=== PATIENT | male | born 1955 | race Caucasian/White ===

== ENCOUNTER → 2017-12-17 10:20 | Outpatient (CLI) | payer OTHER, SELFPAY ==
[2017-12-17 11:23] LABS: Hematocrit 40.8 % (40-54); Hemoglobin 11.7 g/dl (13.0-16.5); Mean Corp Hgb Conc 28.7 g/gl (32-36); Mean Corpuscular Hgb 19.2 pg (27.0-32.0); Mean Corpuscular Volume 66.9 fL (80-94); Mean Platelet Vol. 10.7 fl (6.2-12.0); Platelet Count 273 K/mm3 (150-450); RBC Distribution Width CV 19.8 % (11.6-14.6); RBC Distribution Width SD 46.2 fl (35.1-43.9); White Blood Count 7.6 K/mm3 (4.4-11.0)
[2017-12-17 11:29] LABS: Scan Indicated on CBC? Y/N YES- FLAGS NOTED
[2017-12-17 11:39] LABS: Ferritin 6 ng/mL (26-388)
== END ==
PROVIDERS: Family Provider Family Medicine; PCP Family Medicine; Visit Provider Internal Medicine Hematology & Oncology
DX: D75.1 Secondary polycythemia (principal); Z12.5 Encounter for screening for malignant neoplasm of prostate
CPT/HCPCS: 36415; 82728; 84153; 85027; G0103

== ENCOUNTER 2018-01-03 08:13 | Inpatient (IN) | payer OTHER, SELFPAY ==
[2018-01-03] VITALS (20 sets, daily range): BP systolic 106–162; BP diastolic 56–98; PULSE 76–133; RESP 15–24; TEMP 36.6–39; O2SAT 91–95; BMI 44.6; BMI 43.2; BMI 43.3
--- NOTE | 2018-01-03 08:32 | EKG12_ITS ---
Test Reason : SOB Blood Pressure : / mmHG Vent. Rate : 119 BPM Atrial Rate : 119 BPM P-R Int : 168 ms QRS Dur : 094 ms QT Int : 324 ms P-R-T Axes : 053 -41 015 degrees QTc Int : 455 ms Sinus tachycardia Left axis deviation Abnormal ECG Confirmed by SIRIA MICHELLE, TERELL ([id number]), index editor RIMMA LAZARO ([id number] on 01/06/2018 8:43:45 AM Referred By: ARIS Confirmed By:TERELL BEVERLY MD
--- NOTE | 2018-01-03 08:34 | ED.VISSUMM ---
- ER Visit Summary Date of Service: 01/03/18 Chief Complaint: Cough, fever, chills, body aches History of Present Illness: The patient is a 62 M with a history of COPD presenting with 2 days of fever, chills, body aches, and myalgias. He has been wheezing and his cough is becoming productive of clear-yellow sputum. Physical Examination: he is in mild distress. He is tachycardic and mucous membranes are dry. he has diffuse wheezing. Normal neuro exam and no meningeal findings. Test Results: Chest x-ray revealed a right lower lobe infiltrate. Flu swab was positive. He has a significant leukocytosis. Lactic acid elevated. Emergency Department Course and Treatment: He appears septic and has a pneumonia with a positive influenza. He was given Tamiflu and IV antibiotics as well as fluid resuscitation. Repeat skin exam is unchanged. Repeat lactate is still pending at time of transfer from emergency department. His blood pressure remained normal and he is requiring 2-3 L of oxygen. He certainly meets criteria for full admission but he does not appear to require ICU admission at this time. He did improve with IV fluids and breathing treatments here. I discussed the case with the hospitalist and he was admitted to PCU. Treatment Plan: IV antibiotics Disposition: Admit Impression: Initial encounter for sepsis secondary to community-acquired pneumonia, initial encounter influenza Care time 40 minutes This note was generated with [employer] dictation software. It may contain incorrect words, spelling, and punctuation that were not noted in review of the chart prior to signing ED Disposition - Plan for ED Patient: Disposition: Acute Care Hospital [facility] Chief Complaint: Shortness of Breath
--- NOTE | 2018-01-03 08:34 | NURSING ---
NO LW OR POA
[2018-01-03] MEDS: Ipratropium/Albuterol Sulfate 3 ML AMPUL.NEB INHALATION ×4 (08:40→23:21)
[2018-01-03] MEDS: Albuterol 2.5 MG/3 ML VIAL.NEB. INHALATION ×3 (08:40→15:05)
[2018-01-03] MEDS: MethylPREDNISolone 125 MG/2 ML Vial IV (08:53)
[2018-01-03] MEDS: Acetaminophen 500 MG Tablet 1000 MG PO (08:53)
[2018-01-03] MEDS: 0.9% Normal Saline 1,000 ML 999 ML IV (08:53)
[2018-01-03 08:54] LABS: Absolute Lymphocyte Count 1.03 X10^3/ul (0.83-4.51); Absolute Neutrophil Count 5.6 X10^3/uL (2.0-7.7); Basophil# 0.11 X10^3/uL; Basophil% 1.4 % (0-1); Differential Indicated SCAN CRITERIA MET; Eosinophil# 0.14 X10^3/uL; Eosinophils% 1.8 % (0-5); Hematocrit 38.9 % (40-54); Hemoglobin 11.1 g/dl (13.0-16.5); Lymphocyte # 1.03 X10^3/ul (4.0); Lymphocyte % 13.2 % (19-41); Mean Corp Hgb Conc 28.5 g/gl (32-36); Mean Corpuscular Hgb 18.8 pg (27.0-32.0); Mean Platelet Vol. 10.1 fl (6.2-12.0); Monocyte# 0.88 X10^3/uL; Monocyte% 11.3 % (0-10); Neutrophil # 5.62 X10^3/uL (2.7-7.7); POSITIVE COUNT NO; POSITIVE DIFFERENTIAL NO; POSITIVE MORPHOLOGY YES; Platelet Count 252 K/mm3 (150-450); RBC Distribution Width CV 20.2 % (11.6-14.6); RBC Distribution Width SD 46.2 fl (35.1-43.9); Red Blood Count 5.89 M/mm3 (4.6-6.2); White Blood Count 7.8 K/mm3 (4.4-11.0)
[2018-01-03 09:08] LABS: Anion Gap 10 (5-15); BUN 20 mg/dL (7-18); BUN/Creat Ratio 13.9 RATIO (10-20); Calcium,Total 8.4 mg/dL (8.5-10.1); Chloride 100 mmol/L (98-107); Creatinine, Serum 1.44 mg/dL (0.70-1.30); EST Glomerular Filtration Rate 52 mL/min (>60); Est Glom Filt Rate - Afr Amer 63 mL/min (>60); Estimated Creatinine Clearance 50.14 ml/min; Glucose 178 mg/dL (74-106); Potassium 4.2 mmol/L (3.5-5.1); Sodium Level 138 mmol/L (136-145)
[2018-01-03 09:11] LABS: Anisocytosis 2+; Polychromasia 1+
--- NOTE | 2018-01-03 09:15 | RAD_ITS ---
STUDY: X-RAY CHEST REASON FOR EXAM: Male, 62 years old. Cough dyspnea COPD stents history of kidney cancer TECHNIQUE: PA and lateral views of the chest. COMPARISON: March 17, 2016 chest x-ray FINDINGS: The lungs are underexpanded similar to the prior study. There is visualized right lower lobe opacity. There is peribronchial thickening and vascular prominence. There is no demonstrated pleural abnormality. There is borderline cardiomegaly. Normal mediastinum and selina. Normal visualized pulmonary arteries. Normal visualized aortic arch and descending thoracic aorta. There are diffuse degenerative changes of the visualized thoracic spine. Normal visualized ribs, clavicles, and shoulders. There is no demonstrated abnormality of the visualized soft tissue structures of the upper abdomen. RAD/Chest PA and Lateral IMPRESSION: Underexpansion of the lungs finding suspicious for central vascular congestion. In addition there is focal opacity suggested in the right lung base on lateral view which may represent a focal infiltrate cannot exclude pneumonia. Electronically Signed: Nhi Resendiz MD at 10:02 EDT Tel , Service support ,
--- NOTE | 2018-01-03 09:49 | NURSING ---
DR GRACE HURST
--- NOTE | 2018-01-03 10:08 | HP.PCM_ITS ---
Problem List (1) PNA (pneumonia) Status: Acute (2) Atherosclerotic heart disease of [place] coronary artery without angina pectoris Status: Chronic Comment: 05/22/11, PTCA/stent X [address] 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 (12) Palpitations Status: Chronic (13) Postsurgical percutaneous transluminal coronary angioplasty (PTCA) status Status: Chronic Comment: 05/22/11, PTCA/stent X 2 to LAD (14) Status post right partial nephrectomy Status: Chronic (15) Type II diabetes mellitus Status: Chronic History of Present Illness Date of Admission: 01/03/18 Chief Complaint: cough, SOB The patient is a 62 year old M [] Past Medical History Past Medical History (Chronic Problems): Chronic Problems (Last Updated 01/01/18 @ 13:42 by Lisa Heck) Atherosclerotic heart disease of [place] coronary artery without angina pectoris (Chronic) 05/22/11, PTCA/stent X [address] 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 (Chronic) History of renal cell cancer (Chronic) Benign prostatic hypertrophy (Chronic) Type II diabetes mellitus (Chronic) Hyperlipidemia (Chronic) Obesity (Chronic) COPD (chronic obstructive pulmonary disease) (Chronic) Obstructive sleep apnea (Chronic) Hypothyroidism (Chronic) Status post right partial nephrectomy (Chronic) Hypertension (Chronic) Allergies theophylline Allergy (Verified 01/03/18 08:14) Unknown Home Medications: Ambulatory Orders Medication Instructions Recorded Aspirin [Aspirin, Baby] 81 mg PO DAILY@0800 03/17/16 Tamsulosin HCl [Flomax] 0.4 mg PO DAILY 03/17/16 Valsartan/Hydrochlorothiazide 1 ea PO DAILY 03/17/16 [Valsartan-Hctz 80-12.5 mg Tab] furosemide 40 mg tablet 40 mg PO QDAY 12/02/17 levothyroxine 200 mcg tablet 225 mcg PO .COMPLEX tab 12/04/17 budesonide-formoterol HFA 160 2 puff INHALATION Q12H 01/01/18 mcg-4.5 mcg/actuation aerosol inhaler testosterone 30 mg/actuation (1.5 1 pump TOPICAL QDAY 01/01/18 mL) transderm solution metered pump Metoprolol Succinate [Toprol Xl] 25 mg PO QDAY 01/03/18 Surgical History: - - Cardiac stents him a right partial nephrectomy. Psychiatric History: No pertinent psych hx Smoking Status: Former smoker - *Family History Maternal History Items: No pertinent history Paternal History Items: No pertinent history Patient Problems: Active and Suspected Problems (Last Updated 01/01/18 @ 13:42 by Lisa Heck) PNA (pneumonia) (Acute) - Physical Exam Vital Signs Temp Pulse Resp BP Pulse Ox 98.5 F 133 H 21 H 152/85 H 92 01/03/18 08:15 01/03/18 08:42 01/03/18 08:42 01/03/18 08:28 01/03/18 08:42 Oxygen Flow Rate (L/min) 3 Oxygen Delivery Method Nasal Cannula Weight: 294 lb Body Mass Index (BMI) 44.6 Laboratory Tests Past 24 Hrs 01/03/18 01/03/18 01/03/18 08:30 08:30 08:55 WBC 7.8 RBC 5.89 Hgb 11.1 L Hct 38.9 L MCV 66.0 L MCH 18.8 L MCHC 28.5 L RDW 20.2 H RDW Differential 46.2 H Plt Count 252 MPV 10.1 Immature Gran % (Auto) 0.300 Neut % (Auto) 72.0 H Lymph % (Auto) 13.2 L [place] % (Auto) 11.3 H Eos % (Auto) 1.8 Baso % (Auto) 1.4 H Absolute Neuts (auto) 5.6 Absolute Lymphs (auto) 1.03 Total Counted Not Reportable Polychromasia 1+ Anisocytosis 2+ Sodium 138 Potassium 4.2 Chloride 100 Carbon Dioxide 28.0 Anion Gap 10 BUN 20 H Creatinine 1.44 H Estim Creat Clear Calc 50.14 Est GFR (MDRD) Af Amer 63 Est GFR (MDRD) Non-Af 52 L BUN/Creatinine Ratio 13.9 Glucose 178 H Lactic Acid 3.0 H Calcium 8.4 L Assessment/Plan Active and Suspected Problems (Last Updated 01/01/18 @ 13:42 by Lisa Heck) PNA (pneumonia) (Acute)
--- NOTE | 2018-01-03 10:08 | NURSING ---
CAP, SOB, BRONCHOSPASM, CAD SEMENTI PCU
[2018-01-03] MEDS: Ceftriaxone 1 GM/50 ML BAG IV (10:30)
[2018-01-03] MEDS: Oseltamivir Phosphate 75 MG Capsule PO (10:38)
[2018-01-03 11:38] LABS: Hemoglobin A1c 8.2 % (4.2-6.3)
[2018-01-03 11:41] LABS: T4 Free Direct 1.02 ng/dL (0.76-1.46); Thyroid Stim Hormone (TSH) 1.08 uIU/mL (0.358-3.74)
[2018-01-03 13:03] LABS: Reflex Lactate? Y
[2018-01-03 13:43] LABS: Lactic Acid 5.6 mmol/L (0.4-2.0)
[2018-01-03] MEDS: 0.9% NaCl Peripheral Flush Adult/Peds IV ×2 (14:06→21:50)
[2018-01-03] MEDS: Acetaminophen 325 MG Tablet 650 MG PO (14:06)
--- NOTE | 2018-01-03 15:32 | PCM.HP.STD ---
Problem List (1) RLL pneumonia Status: Acute (2) Sepsis Status: Acute (3) Influenza A Status: Acute (4) CAD (coronary artery disease) Status: Chronic (5) History of renal cell cancer Status: Chronic (6) Benign prostatic hypertrophy Status: Chronic (7) Type II diabetes mellitus Status: Chronic (8) Hyperlipidemia Status: Chronic (9) Obesity Status: Chronic (10) COPD (chronic obstructive pulmonary disease) Status: Chronic (11) Obstructive sleep apnea Status: Chronic (12) Hypothyroidism Status: Chronic (13) Hypertension Status: Chronic History of Present Illness Date of Admission: 01/03/18 Chief Complaint: SOB The patient is a 62 year old M with a hx of asthma, COPD, RHINA, CAD s/p stents 2010, renal cancer s/p partial nephrectomy 2010, diastolic CHF, who presents to the ED with SOB and cough. 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 He has been feeling progressively worse over the past two days. He is coughing up minimal mucus at this point. He has had fevers, in the ER up to 102.2. At home he has had fevers, chills, myalgias, malaise, and weakness. At home he uses symbicort and CPAP at night. He does not wear O2 normally. These have not provided him reliev. In the ER he tested positive for Flu A. He also appears to have a RLL pna. He follows Dr. Storey for pulmonology. He also has CHF but has minimal edema. He is a former smoker, quit in the 80s, smoked about 15 years. [] Past Medical History Past Medical History (Chronic Problems): Chronic Problems (Last Updated 01/01/18 @ 13:42 by Lisa Heck) CAD (coronary artery disease) (Chronic) Atherosclerotic heart disease of [place] coronary artery without angina pectoris (Chronic) 05/22/11, PTCA/stent X [address] 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) History of renal cell cancer (Chronic) Benign prostatic hypertrophy (Chronic) Type II diabetes mellitus (Chronic) Hyperlipidemia (Chronic) Obesity (Chronic) COPD (chronic obstructive pulmonary disease) (Chronic) Obstructive sleep apnea (Chronic) Hypothyroidism (Chronic) Status post right partial nephrectomy (Chronic) Hypertension (Chronic) Allergies theophylline Allergy (Verified 01/03/18 08:14) Unknown Home Medications: Ambulatory Orders Medication Instructions Recorded Aspirin [Aspirin, Baby] 81 mg PO DAILY@0800 03/17/16 Tamsulosin HCl [Flomax] 0.4 mg PO DAILY 03/17/16 Valsartan/Hydrochlorothiazide 1 ea PO DAILY 03/17/16 [Valsartan-Hctz 80-12.5 mg Tab] furosemide 40 mg tablet 40 mg PO QDAY 12/02/17 levothyroxine 200 mcg tablet 225 mcg PO .COMPLEX tab 12/04/17 budesonide-formoterol HFA 160 2 puff INHALATION Q12H 01/01/18 mcg-4.5 mcg/actuation aerosol inhaler testosterone 30 mg/actuation (1.5 1 pump TOPICAL QDAY 01/01/18 mL) transderm solution metered pump Metformin HCl 1,000 mg PO BREAKFAST 01/03/18 Metformin HCl 1,500 mg PO DINNER 01/03/18 Metoprolol Succinate [Toprol Xl] 25 mg PO QDAY 01/03/18 Surgical History: - - Cardiac stents him a right partial nephrectomy both in 2010 Psychiatric History: No pertinent psych hx Lives: With Family Smoking Status: Former smoker Alcohol: None Drugs: None - *Family History Maternal History Items: No pertinent history Paternal History Items: No pertinent history Review of Systems Constitutional: Reports: Chills, Fever, Malaise, Weakness, Fatigue. Denies: Weight Change HEENT: Denies: Head Aches, Sinus Congestion, Sinus Drainage Cardiovascular: Denies: Chest Pain, Palpitations Respiratory: Reports: Cough, Shortness of Breath, Shortness of breath at rest, Shortness of breath upon exertion. Denies: Hemoptysis, Pleuritic Pain, Sputum production, Wheezing Gastrointestinal: Denies: Abdominal Pain, Nausea, Vomiting Genitourinary: Denies: Dysuria Musculoskeletal: Denies: Joint Pain, Joint Tenderness Skin: Denies: Rash, Wounds Neurological: Denies: Numbness, Tingling, Focal weakness Psychiatric: Denies: Anxiety, Depression, Homicidal Ideations, Suicidal Ideations Hematologic/ Lymphatic: Denies: Easy Bruising, Easy Bleeding VTE Information - Inpt Only VTE Present on Admission: No VTE Mechan Device Prophylaxis: SCD's VTE Pharm Prophylaxis ordered?: Yes Patient Problems: Active and Suspected Problems (Last Updated 01/01/18 @ 13:42 by Lisa eHck) PNA (pneumonia) (Acute) RLL pneumonia (Acute) Sepsis (Acute) Influenza A (Acute) - Physical Exam General: Alert, Oriented x3, Cooperative HEENT: Atraumatic, PERRLA, EOMI, Normocephalic Neck: Supple, No JVD, Negative Carotid Bruits Lungs: Normal air movement, Rales - faint rales RLL Cardiovascular: Regular rate, No murmurs Abdomen: Bowel Sounds Present, Soft, Non Tender, Obese Extremities: No edema, Capillary Refill Less than 3 Seconds Skin: No rashes, No breakdown Musculoskeletal: No Tenderness to Palpation of Joints or Extremities Neurological: Cranial nerves II-XII grossly intact Psych/Mental Status: Normal Affect, Appropriate Vital Signs Temp Pulse Resp BP Pulse Ox 100.8 F H 108 H 20 H 119/62 95 01/03/18 14:00 01/03/18 15:05 01/03/18 15:05 01/03/18 14:00 01/03/18 14:00 Oxygen Flow Rate (L/min) 2 Oxygen Delivery Method Nasal Cannula Weight: 133 kg Body Mass Index (BMI) 43.2 Laboratory Tests Past 24 Hrs 01/03/18 12:43 Lactic Acid 5.6 H* Assessment/Plan Active and Suspected Problems (Last Updated 01/01/18 @ 13:42 by Lisa Heck) PNA (pneumonia) (Acute) RLL pneumonia (Acute) Sepsis (Acute) Influenza A (Acute) 1. Acute sepsis 2/2 acute influenza A bronchitis and RLL CAP - elevated Leukocytosis, fever, lactate, tachypnea, tachycardia. CXR with RLL infiltrate and vascular congestion. Started tamiflu in ER. Continue Rocephin and Azithromycin. Mucinex, aerosols, IS, PEP therapy. Fluids at 100 cc/hour. Check sputum culture, blood culture, urine antigens. 2. 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 Hold lasix. IV fluids. Avoid excessive fluids with hx of CHF. 3. Chronic diastolic CHF - hold lasix/HCTZ. Continue valsartan, toprol. 4. CAD - home meds. EKG with sinus tachy. 5. Hypothyroidism - TSH/Ft4 normal. 6. COPD - Solumedrol. duonebs. Not on home O2. Pt of Dr. Storey. 7. HTN - home meds. Pressure is high. 8.DMt2 - hold metformin. SSI. A1C 8.2. Would benefit from additional oral agent at discharge. DV ppx: heparin This patient was seen by William Laws PA-C under the supervision of Doctor Rodriguez.
[2018-01-03 16:54] LABS: Reflex Lactate? Y
[2018-01-03 16:55] LABS: Color, Urine Straw (Yellow); Glucose, Dipstick 1000 mg/dl (Normal); Ketone-Dipstick 15 mg/dl (Negative); Leukocyte Esterase-Dipstick Negative /ul (Negative); Nitrite-Dipstick Negative (Negative); Occult Blood-Urine Negative /ul (Negative); Protein-Dipstick Negative (Negative); Urine Bilirubin Dipstick Negative (Negative); Urine Clarity Clear (Clear); Urine Urobilinogen Normal (Normal)
[2018-01-03 18:12] LABS: Lactic Acid 5.9 mmol/L (0.4-2.0)
[2018-01-03] MEDS: Tamsulosin HCl 0.4 MG Capsule PO (21:39)
[2018-01-03] MEDS: guaiFENesin 600 MG Tablet 1200 MG PO (21:40)
[2018-01-03] MEDS: Metoprolol(XL)Succ 25 MG Tablet PO (21:43)
[2018-01-03] MEDS: 0.9% Normal Saline 1,000 ML 100 ML IV (21:52)
[2018-01-03] MEDS: Oseltamivir Phosphate 30 MG Capsule PO (21:52)
[2018-01-03 23:05] LABS: Bedside Glucose 302 mg/dL (70-110)
[2018-01-04] VITALS (9 sets, daily range): BP systolic 114–117; BP diastolic 68–70; PULSE 84–105; RESP 16–18; TEMP 36.8–37.1; O2SAT 95–97
[2018-01-04] MEDS: Levothyroxine 175 MCG Tablet PO (06:12)
[2018-01-04] MEDS: Levothyroxine 50 MCG Tablet PO (06:12)
[2018-01-04] MEDS: 0.9% NaCl Peripheral Flush Adult/Peds IV (06:13)
[2018-01-04 06:20] LABS: Absolute Lymphocyte Count 0.54 X10^3/ul (0.83-4.51); Absolute Neutrophil Count 14.8 X10^3/uL (2.0-7.7); Basophil# 0.01 X10^3/uL; Basophil% 0.1 % (0-1); Hematocrit 35.9 % (40-54); Hemoglobin 10.3 g/dl (13.0-16.5); Lymphocyte # 0.54 X10^3/ul (4.0); Lymphocyte % 3.3 % (19-41); Mean Corp Hgb Conc 28.7 g/gl (32-36); Mean Corpuscular Hgb 18.9 pg (27.0-32.0); Mean Platelet Vol. 10.3 fl (6.2-12.0); Monocyte# 0.87 X10^3/uL; Monocyte% 5.4 % (0-10); Neutrophil # 14.79 X10^3/uL (2.7-7.7); Neutrophil % 90.9 % (47-70); Platelet Count 243 K/mm3 (150-450); RBC Distribution Width CV 20.3 % (11.6-14.6); RBC Distribution Width SD 46.7 fl (35.1-43.9); Red Blood Count 5.44 M/mm3 (4.6-6.2); White Blood Count 16.3 K/mm3 (4.4-11.0)
[2018-01-04 06:36] LABS: Anion Gap 10 (5-15); BUN 18 mg/dL (7-18); BUN/Creat Ratio 16.7 RATIO (10-20); Chloride 106 mmol/L (98-107); Creatinine, Serum 1.08 mg/dL (0.70-1.30); Differential Indicated SCAN CRITERIA MET; EST Glomerular Filtration Rate 73 mL/min (>60); Est Glom Filt Rate - Afr Amer 88 mL/min (>60); Glucose 212 mg/dL (74-106); POSITIVE COUNT NO; POSITIVE DIFFERENTIAL YES; POSITIVE MORPHOLOGY YES; Potassium 4.5 mmol/L (3.5-5.1); Sodium Level 139 mmol/L (136-145)
[2018-01-04 07:00] LABS: Bedside Glucose 188 mg/dL (70-110)
[2018-01-04 07:13] LABS: Anisocytosis 1+; Differential Comment SCAN; Hypochromasia 1+; Microcytosis 1+; Polychromasia 1+
[2018-01-04] MEDS: Ipratropium/Albuterol Sulfate 3 ML AMPUL.NEB INHALATION ×2 (07:27→11:21)
[2018-01-04] MEDS: Aspirin 81 MG TAB.CHEW PO (08:02)
[2018-01-04] MEDS: 0.9% Normal Saline 1,000 ML 100 ML IV (08:02)
[2018-01-04] MEDS: guaiFENesin 600 MG Tablet 1200 MG PO (09:48)
[2018-01-04] MEDS: Ceftriaxone 1 GM/50 ML BAG IV (09:48)
[2018-01-04 11:45] LABS: Bedside Glucose 284 mg/dL (70-110)
--- NOTE | 2018-01-04 13:45 | DCINST_ITS ---
- Discharge Diagnoses Current Active Problems: Current Active and Chronic Problems (Last Updated 01/01/18 @ 13:42 by Lisa Heck) PNA (pneumonia) (Acute) RLL pneumonia (Acute) Sepsis (Acute) Influenza A (Acute) CAD (coronary artery disease) (Chronic) You will use the following diet at home:: Calorie/Carbohydrate Controlled ( specify 1200, 1400, etc) - 1800, Cardiac Your food should be the consistency of: Regular Your liquids should be the consistency of: Regular/Thin Discharge Activity: Return to Normal Activity Allergies/Adverse Reactions: Allergies theophylline Allergy (Verified 01/03/18 08:14) Unknown Medications to take at Discharge Aspirin [Aspirin, Baby] 81 mg PO DAILY@0800 03/17/16 Tamsulosin HCl [Flomax] 0.4 mg PO DAILY 03/17/16 furosemide 40 mg tablet 40 mg PO QDAY 12/02/17 levothyroxine 200 mcg tablet 225 mcg PO .COMPLEX tab 12/04/17 budesonide-formoterol HFA 160 mcg-4.5 mcg/actuation aerosol inhaler 2 puff INHALATION Q12H 01/01/18 Metformin HCl 1,000 mg PO BREAKFAST 01/03/18 Metformin HCl 1,500 mg PO DINNER 01/03/18 Metoprolol Succinate [Toprol Xl] 25 mg PO QDAY 01/03/18 Acetaminophen [Tylenol Tablet] 650 mg PO Q6H PRN PRN tablet 01/04/18 Azithromycin [Zithromax] 250 mg PO DAILY #4 tab 01/04/18 Cefdinir [Omnicef [equiv]] 300 mg PO Q12H #8 cap 01/04/18 Prednisone 10 mg PO UD #30 tab 01/04/18 Valsartan [Diovan] 80 mg PO DAILY #30 tab 01/04/18 The following prescriptions were given: Azithromycin [Zithromax] 250 mg PO DAILY #4 tab Cefdinir [Omnicef [equiv]] 300 mg PO Q12H #8 cap Prednisone 10 mg PO UD #30 tab Valsartan [Diovan] 80 mg PO DAILY #30 tab Primary Care Physician: Sebastien Stahl MD [Primary Care Provider] - Please follow up with your Primary Care Physician in: 1-2 weeks Proposed Discharge Date: 01/04/18
--- NOTE | 2018-01-04 13:45 | PCM.DC.SUM ---
Discharge Date and Diagnosis - Problem List Patient Problems: Active and Suspected Problems (Last Updated 01/01/18 @ 13:42 by Lisa Heck) PNA (pneumonia) (Acute) RLL pneumonia (Acute) Sepsis (Acute) Influenza A (Acute) Date of Admission: 01/03/18 Date of Discharge: 01/04/18 - Primary Discharge Diagnosis Active and Suspected Problems (Last Updated 01/01/18 @ 13:42 by Lisa Heck) CAP - RLL PNA (pneumonia) (Acute) - suspect gram positive Sepsis (Acute) Influenza A (Acute) bronchitis Acute COPD exacerbation 2/2 above Chronic diastolic CHF CAD Hypothyroidism HTN DMt2 - Secondary Discharge Diagnosis Chronic Problems (Last Updated 01/01/18 @ 13:42 by Lisa Heck) CAD (coronary artery disease) (Chronic) Atherosclerotic heart disease of [place] coronary artery without angina pectoris (Chronic) 05/22/11, PTCA/stent X [address] 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 In addition there is focal opacity suggested in the right lung base on lateral view which may represent a focal infiltrate cannot exclude pneumonia. Operations: None Procedures: None Summary of Care Provided: Physical exam on day of discharge: General: Resting comfortably NAD Psych: A/Ox3 normal affect HEENT: [place] AT NC Neck: Supple NT CV: RRR no m/t/r/g/h Resp: fine RLL crackles. No wheezing. Good expansion Abd: [id number] Soft NT no guarding or rigidity Ext: DP2+= no edema Skin: W/D normal turgor Lymph/Heme: No active bleeding or adenopathy Neuro: CN2-12 intact Hospital course: The patient is a 62 year old M with a hx of DMt2, COPD, CAD, diastolic CHF, HTN who presented to the ER with a chief complaint of SOB, cough, fever, malaise for about 3 days. He was hypoxic requiring 2 lpm O2 to maintain good sats, had fever, leukocytosis, elevated lactate, tachypnea, tachycardia, and a CXR consistent with RLL pna, and a positive influenza A screen, and elevated creatinine. He was admitted to the hospital with acute severe sepsis 2/2 RLL CAP and Acute influenza A bronchitis. He was placed on rocephin and azithromycin, tamiflu, IV fluids, solumedrol, and duonebs. He responded very well to therapy. By the following morning his vitals and labs were all significantly improved, the patient was off o2, and feeling much better. He desired to be discharged home and with him feeling much better it was determined that we could transition his medications to PO and discharge him home. He did not wish to continue tamiflu. He was placed on 4 more days of cefdinir and azithromycin. He was given a steroid taper. He was taken off of HCTZ for his elevated creatinine and his pressure remained well controlled without it, he will continue with valsartan. He is discharged home in stable condition. Please follow up with your PCP in 1-2 weeks. This patient was seen by William Laws PA-C under the supervision of Doctor Rodriguez. [] Discharge Diet: Low fat/ Low Cholesterol, 1800 Calorie Control Diet, 2000 mg Sodium Diet Discharge Activity: Return to Normal Activity Home Medications: Medications to take at Discharge Aspirin [Aspirin, Baby] 81 mg PO DAILY@0800 03/17/16 Tamsulosin HCl [Flomax] 0.4 mg PO DAILY 03/17/16 furosemide 40 mg tablet 40 mg PO QDAY 12/02/17 levothyroxine 200 mcg tablet 225 mcg PO .COMPLEX tab 12/04/17 budesonide-formoterol HFA 160 mcg-4.5 mcg/actuation aerosol inhaler 2 puff INHALATION Q12H 01/01/18 Metformin HCl 1,000 mg PO BREAKFAST 01/03/18 Metformin HCl 1,500 mg PO DINNER 01/03/18 Metoprolol Succinate [Toprol Xl] 25 mg PO QDAY 01/03/18 Acetaminophen [Tylenol Tablet] 650 mg PO Q6H PRN PRN tablet 01/04/18 Azithromycin [Zithromax] 250 mg PO DAILY #4 tab 01/04/18 Cefdinir [Omnicef [equiv]] 300 mg PO Q12H #8 cap 01/04/18 Prednisone 10 mg PO UD #30 tab 01/04/18 Valsartan [Diovan] 80 mg PO DAILY #30 tab 01/04/18 Following Prescrptions Were Given to Patient: Azithromycin [Zithromax] 250 mg PO DAILY #4 tab Cefdinir [Omnicef [equiv]] 300 mg PO Q12H #8 cap Prednisone 10 mg PO UD #30 tab Valsartan [Diovan] 80 mg PO DAILY #30 tab Primary Care Physician: Sebastien Stahl MD [Primary Care Provider] - Please follow up with your Primary Care Physician in: 1-2 weeks Disposition: Home Minutes spent on discharge:: 35 Patient Condition:: Stable Medical Necessity - Tobacco Use Smoking Status: Former smoker Meaningful Use Info Meaningful Use Diagnoses (Choose all that apply): None applicable
--- NOTE | 2018-01-04 13:52 | DS.PCM_ITS ---
Discharge Date and Diagnosis - Problem List Patient Problems: Active and Suspected Problems (Last Updated 01/01/18 @ 13:42 by Lisa Heck) PNA (pneumonia) (Acute) RLL pneumonia (Acute) Sepsis (Acute) Influenza A (Acute) Date of Admission: 01/03/18 Date of Discharge: 01/04/18 - Primary Discharge Diagnosis Active and Suspected Problems (Last Updated 01/01/18 @ 13:42 by Lisa Heck) CAP - RLL PNA (pneumonia) (Acute) - suspect gram positive Sepsis (Acute) Influenza A (Acute) bronchitis Acute COPD exacerbation 2/2 above Chronic diastolic CHF CAD Hypothyroidism HTN DMt2 - Secondary Discharge Diagnosis Chronic Problems (Last Updated 01/01/18 @ 13:42 by Lisa Heck) CAD (coronary artery disease) (Chronic) Atherosclerotic heart disease of [place] coronary artery without angina pectoris (Chronic) 05/22/11, PTCA/stent X [address] Prabhu Heath @ [facility] Palpitations (Chronic) Postsurgical percutaneous transluminal coronary angioplasty (PTCA) status ( Chronic) 05/22/11, PTCA/stent X 2 to LAD [facility] (current) 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 (Chronic) History of renal cell cancer (Chronic) Benign prostatic hypertrophy (Chronic) Type II diabetes mellitus (Chronic) Hyperlipidemia (Chronic) Obesity (Chronic) COPD (chronic obstructive pulmonary disease) (Chronic) Obstructive sleep apnea (Chronic) Hypothyroidism (Chronic) Status post right partial nephrectomy (Chronic) Hypertension (Chronic) Hospital Course and Treatment Imaging Results: RAD/Chest PA and Lateral IMPRESSION: Underexpansion of the lungs finding suspicious for central vascular congestion. In addition there is focal opacity suggested in the right lung base on lateral view which may represent a focal infiltrate cannot exclude pneumonia. Operations: None Procedures: None Summary of Care Provided: Physical exam on day of discharge: General: Resting comfortably NAD Psych: A/Ox3 normal affect HEENT: [place] AT NC Neck: Supple NT CV: RRR no m/t/r/g/h Resp: fine RLL crackles. No wheezing. Good expansion Abd: [id number] Soft NT no guarding or rigidity Ext: DP2+= no edema Skin: W/D normal turgor Lymph/Heme: No active bleeding or adenopathy Neuro: CN2-12 intact Hospital course: The patient is a 62 year old M with a hx of DMt2, COPD, CAD, diastolic CHF, HTN who presented to the ER with a chief complaint of SOB, cough, fever, malaise for about 3 days. He was hypoxic requiring 2 lpm O2 to maintain good sats, had fever, leukocytosis, elevated lactate, tachypnea, tachycardia, and a CXR consistent with RLL pna, and a positive influenza A screen, and elevated creatinine. He was admitted to the hospital with acute severe sepsis 2/2 RLL CAP and Acute influenza A bronchitis. He was placed on rocephin and azithromycin , tamiflu, IV fluids, solumedrol, and duonebs. He responded very well to therapy. By the following morning his vitals and labs were all significantly improved, the patient was off o2, and feeling much better. He desired to be discharged home and with him feeling much better it was determined that we could transition his medications to PO and discharge him home. He did not wish to continue tamiflu. He was placed on 4 more days of cefdinir and azithromycin. He was given a steroid taper. He was taken off of HCTZ for his elevated creatinine and his pressure remained well controlled without it, he will continue with valsartan. He is discharged home in stable condition. Please follow up with your PCP in 1-2 weeks. This patient was seen by William Laws PA-C under the supervision of Doctor Rodriguez. [] Discharge Diet: Low fat/ Low Cholesterol, 1800 Calorie Control Diet, 2000 mg Sodium Diet Discharge Activity: Return to Normal Activity Home Medications: Medications to take at Discharge Aspirin [Aspirin, Baby] 81 mg PO DAILY@0800 03/17/16 Tamsulosin HCl [Flomax] 0.4 mg PO DAILY 03/17/16 furosemide 40 mg tablet 40 mg PO QDAY 12/02/17 levothyroxine 200 mcg tablet 225 mcg PO .COMPLEX tab 12/04/17 budesonide-formoterol HFA 160 mcg-4.5 mcg/actuation aerosol inhaler 2 puff INHALATION Q12H 01/01/18 Metformin HCl 1,000 mg PO BREAKFAST 01/03/18 Metformin HCl 1,500 mg PO DINNER 01/03/18 Metoprolol Succinate [Toprol Xl] 25 mg PO QDAY 01/03/18 Acetaminophen [Tylenol Tablet] 650 mg PO Q6H PRN PRN tablet 01/04/18 Azithromycin [Zithromax] 250 mg PO DAILY #4 tab 01/04/18 Cefdinir [Omnicef [equiv]] 300 mg PO Q12H #8 cap 01/04/18 Prednisone 10 mg PO UD #30 tab 01/04/18 Valsartan [Diovan] 80 mg PO DAILY #30 tab 01/04/18 Following Prescrptions Were Given to Patient: Azithromycin [Zithromax] 250 mg PO DAILY #4 tab Cefdinir [Omnicef [equiv]] 300 mg PO Q12H #8 cap Prednisone 10 mg PO UD #30 tab Valsartan [Diovan] 80 mg PO DAILY #30 tab Primary Care Physician: Sebastien Stahl MD [Primary Care Provider] - Please follow up with your Primary Care Physician in: 1-2 weeks Disposition: Home Minutes spent on discharge:: 35 Patient Condition:: Stable Medical Necessity - Tobacco Use Smoking Status: Former smoker Meaningful Use Info Meaningful Use Diagnoses (Choose all that apply): None applicable
[2018-01-06 09:25] LABS: Bedside Glucose 315 mg/dL (70-110)
[2018-01-06 09:25] LABS: Bedside Glucose 328 mg/dL (70-110)
--- NOTE | 2018-01-06 13:19 | CASEMGMT ---
MANI VELÁSQUEZ Discharge Follow-Up Phone Call. RIAZ: 9 Strata: 3 Call Date: 01/06/18 Discharge Date: 01/02/18 Time: 1318 Duration: 2 minutes Adm Dx: Pneumonia RN DIDIER spoke with Mr. Sarabia re: how he is feeling since she left the hospital. Mr. Sarabia reports he has been feeling better, but did reports he has been having some shortness of breath. He reports he expects this, and is not concerned. Mr. Sarabia reports he knows to contact his physician office or come to the ED should his breathing worsen. He reports he is was able to obtain both antibiotics and prednisone which was prescribed at discharge, and is taking as ordered. Mr. 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 Mr. Sarabia states he does have follow-up appnts, and denies needs at this time. ANTHONY WileyN, RN-BC, CCM
== END 2018-01-04 15:38 | disposition home or self-care (01) | DRG 871 ==
LOC: ED 08:53 → PCU 10:14
PROVIDERS: Physician Assistant; Admitting Provider Internal Medicine; Emergency Provider Emergency Medicine; Family Provider Family Medicine; PCP Family Medicine; Visit Provider Internal Medicine
DX: A41.9 Sepsis, unspecified organism (principal); J10.00 Influenza due to other identified influenza virus with unspecified type of pneumonia; R65.21 Severe sepsis with septic shock; J44.1 Chronic obstructive pulmonary disease with (acute) exacerbation; J44.0 Chronic obstructive pulmonary disease with (acute) lower respiratory infection; Z68.41 Body mass index [BMI] 40.0-44.9, adult; I50.32 Chronic diastolic (congestive) heart failure; J20.9 Acute bronchitis, unspecified; D75.1 Secondary polycythemia; E86.0 Dehydration; I25.10 Atherosclerotic heart disease of native coronary artery without angina pectoris; Z85.53 Personal history of malignant neoplasm of renal pelvis; N40.0 Benign prostatic hyperplasia without lower urinary tract symptoms; E11.9 Type 2 diabetes mellitus without complications; E78.5 Hyperlipidemia, unspecified; E66.9 Obesity, unspecified; G47.33 Obstructive sleep apnea (adult) (pediatric); E03.9 Hypothyroidism, unspecified; Z95.5 Presence of coronary angioplasty implant and graft; Z90.5 Acquired absence of kidney; I11.0 Hypertensive heart disease with heart failure; Z87.891 Personal history of nicotine dependence; Z79.82 Long term (current) use of aspirin; Z79.84 Long term (current) use of oral hypoglycemic drugs; Z79.899 Other long term (current) 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; D72.829 Elevated white blood cell count, unspecified; R94.4 Abnormal results of kidney function studies
CPT/HCPCS: 36415; 71046; 80048; 81002; 82962; 83036; 83605; 84439; 84443; 85025; 87040; 87070; 87205; 87449; 87633; 87804; 93005; 94640; 99285; J7030; A4216

== ENCOUNTER → 2018-01-14 10:08 | Outpatient (CLI) | payer OTHER, SELFPAY ==
[2018-01-14 10:52] LABS: Hematocrit 42.3 % (40-54); Mean Corp Hgb Conc 28.4 g/gl (32-36); Mean Corpuscular Hgb 18.7 pg (27.0-32.0); Mean Platelet Vol. 9.9 fl (6.2-12.0); Platelet Count 273 K/mm3 (150-450); RBC Distribution Width CV 21.2 % (11.6-14.6); RBC Distribution Width SD 48.3 fl (35.1-43.9); Red Blood Count 6.41 M/mm3 (4.6-6.2); White Blood Count 9.7 K/mm3 (4.4-11.0)
[2018-01-14 10:56] LABS: Scan Indicated on CBC? Y/N YES- FLAGS NOTED
[2018-01-14 11:19] LABS: Ferritin 10 ng/mL (26-388)
== END ==
PROVIDERS: Family Provider Family Medicine; PCP Family Medicine; Visit Provider Internal Medicine Hematology & Oncology
DX: D75.1 Secondary polycythemia (principal)
CPT/HCPCS: 36415; 82728; 85027

== ENCOUNTER 2018-02-19 09:52 | Emergency (ER) | payer OTHER, SELFPAY ==
[2018-02-19 09:53] VITALS: BP 125/66; PULSE 70; RESP 18; TEMP 36.6; O2SAT 96; BMI 44.1
--- NOTE | 2018-02-19 10:02 | EKG12_ITS ---
Test Reason : SYNCOPE Blood Pressure : / mmHG Vent. Rate : 067 BPM Atrial Rate : 067 BPM P-R Int : 176 ms QRS Dur : 098 ms QT Int : 404 ms P-R-T Axes : 055 -26 005 degrees QTc Int : 426 ms Normal sinus rhythm Leftward axis Poor R wave progression Confirmed by EMANI MICHELLE, CHRISTOPHER ([id number]), writer editor RIMMA LAZARO ([id number]) on 02/25/2018 1:37:02 PM Referred By: PALMER Confirmed By:CHRISTOPHER JOAQUIN MD
[2018-02-19 11:30] LABS: Absolute Lymphocyte Count 1.05 X10^3/ul (0.83-4.51); Absolute Neutrophil Count 4.8 X10^3/uL (2.0-7.7); Basophil# 0.11 X10^3/uL; Basophil% 1.6 % (0-1); Eosinophil# 0.34 X10^3/uL; Hematocrit 40.8 % (40-54); Hemoglobin 11.3 g/dl (13.0-16.5); Lymphocyte # 1.05 X10^3/ul (4.0); Lymphocyte % 15.5 % (19-41); Mean Corp Hgb Conc 27.7 g/gl (32-36); Mean Corpuscular Hgb 18.7 pg (27.0-32.0); Mean Corpuscular Volume 67.7 fL (80-94); Monocyte# 0.49 X10^3/uL; Monocyte% 7.2 % (0-10); Neutrophil # 4.79 X10^3/uL (2.7-7.7); Neutrophil % 70.6 % (47-70); Platelet Count 203 K/mm3 (150-450); RBC Distribution Width CV 19.7 % (11.6-14.6); Red Blood Count 6.03 M/mm3 (4.6-6.2); White Blood Count 6.8 K/mm3 (4.4-11.0)
[2018-02-19 11:31] LABS: Differential Indicated SCAN CRITERIA MET; POSITIVE COUNT NO; POSITIVE DIFFERENTIAL NO; POSITIVE MORPHOLOGY YES
[2018-02-19] MEDS: 0.9% Normal Saline 1,000 ML 150 ML IV (11:38)
[2018-02-19] MEDS: fentaNYL 100 MCG/2 ML Ampul 50 MCG IV (11:38)
[2018-02-19] MEDS: Ondansetron 4 MG/2 ML Vial IV (11:38)
[2018-02-19 11:39] LABS: Anion Gap 5 (5-15); BUN 16 mg/dL (7-18); BUN/Creat Ratio 13.6 RATIO (10-20); Calcium,Total 8.9 mg/dL (8.5-10.1); Chloride 105 mmol/L (98-107); Creatinine, Serum 1.18 mg/dL (0.70-1.30); EST Glomerular Filtration Rate 66 mL/min (>60); Est Glom Filt Rate - Afr Amer 80 mL/min (>60); Estimated Creatinine Clearance 60.38 ml/min; Glucose 186 mg/dL (74-106); Potassium 4.3 mmol/L (3.5-5.1); Sodium Level 137 mmol/L (136-145)
[2018-02-19 11:48] LABS: Anisocytosis 2+; Hypochromasia 1+; Microcytosis 1+; Platelet Estimate ADEQUATE (ADEQ); Polychromasia 1+
--- NOTE | 2018-02-19 12:00 | RAD_ITS ---
STUDY: X-RAY CHEST REASON FOR EXAM: Male, 63 years old. Chest pain. TECHNIQUE: PA and lateral views of the chest. COMPARISON: Comparison is made with prior study dated January 03, 2018. FINDINGS: EKG electrodes are seen. Mild elevation of the right hemidiaphragm. The lungs are clear. There is no demonstrated pleural abnormality. There is borderline cardiomegaly. Normal mediastinum and selina. Normal visualized pulmonary arteries. Normal visualized aortic arch and descending thoracic aorta. Normal visualized thoracic spine. Normal visualized ribs, clavicles, and shoulders. There is no demonstrated abnormality of the visualized soft tissue structures of the upper abdomen. RAD/Chest PA and Lateral IMPRESSION: Mild elevation of the right hemidiaphragm. The lungs are clear. Electronically Signed: Anshul Arboleda MD at 12:36 EDT Tel [phone], Service support ,
[2018-02-19 12:11] VITALS: BP 119/64; PULSE 79; RESP 18; O2SAT 96
--- NOTE | 2018-02-19 13:04 | ED.VISSUMM ---
- ER Visit Summary Date of Service: 02/19/18 Chief Complaint: [] Near-syncope History of Present Illness: The patient is a 63 M [] complaining of near syncope after just completing a procedure at the [employer] relations [employer] office. He reports procedure was done on his right eye. He reports after the procedure was over he had a sharp pain in his right eye and had a near syncopal episode. He reports continued pain in his right eye. 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 Patient denies chest pain or shortness of breath. Reports nausea, denies vomiting. Denies abdominal pain. No other complaints at this time. Physical Examination: [] Afebrile, vital signs stable. 63-year-old morbidly obese male in no acute distress. Cardiovascular exam is regular rate and rhythm. Lungs are clear to auscultation. Abdomen is soft and nontender. Remainder of exam is unremarkable. Test Results: [] Chest x-ray 2 views negative EKG: Normal sinus rhythm, rate 67 without ectopy or ischemic changes. This is unchanged from previous EKG. CBC, BMP, troponin all within normal limits. Emergency Department Course and Treatment: [] Patient was given intravenous fluids and fentanyl for the discomfort. On serial exam he had improvement of symptoms. He had a negative workup I did not feel any further evaluation is warranted. Patient looks well is able to ambulate and is having a conversation with family members in his room. Patient was encouraged to follow-up with his primary care physician. Treatment Plan: [] Follow-up with PCP. Disposition: [] Discharge, stable. Impression: [] Near-syncope This note was generated with [employer] dictation software. It may contain incorrect words, spelling, and punctuation that were not noted in review of the chart prior to signing ED Disposition - Plan for ED Patient: Chief Complaint: Syncope Referrals: Sebastien Stahl MD [Primary Care Provider] -
--- NOTE | 2018-02-19 13:06 | ED.DEP ---
ED Disposition - Plan for ED Patient: Disposition: Home or Assisted Living Chief Complaint: Syncope Instructions: ED Near Syncope Vasovagal Referrals: Sebastien Stahl MD [Primary Care Provider] -
[2018-02-19 13:15] VITALS: BP 115/70; PULSE 75; RESP 14; O2SAT 99
[2018-02-19 14:05] LABS: BNP,B-Type NATRIURETIC PEPTIDE 2.7 pg/mL (0-100)
== END 2018-02-19 13:22 | disposition home or self-care (01) ==
PROVIDERS: Emergency Provider Emergency Medicine; Family Provider Family Medicine; PCP Family Medicine
DX: R55 Syncope and collapse (principal); E66.01 Morbid (severe) obesity due to excess calories; C64.1 Malignant neoplasm of right kidney, except renal pelvis
CPT/HCPCS: 71046; 80048; 83880; 84484; 85025; 93005; 96361; 96374; 96375; 99285; J7030; A4216; J2405

== ENCOUNTER 2018-03-27 16:20 | Observation (INO) | payer OTHER, SELFPAY ==
[2018-03-27 16:21] VITALS: BP 127/69; PULSE 82; RESP 16; TEMP 36.7; O2SAT 95; BMI 43.6
--- NOTE | 2018-03-27 16:26 | EKG12_ITS ---
Test Reason : Blood Pressure : / mmHG Vent. Rate : 078 BPM Atrial Rate : 078 BPM P-R Int : 172 ms QRS Dur : 098 ms QT Int : 384 ms P-R-T Axes : 050 -33 018 degrees QTc Int : 437 ms Normal sinus rhythm Left axis deviation Abnormal ECG Confirmed by TERELL BEVERLY MD ([id number]), film editor supervisor RIMMA LAZARO ([id number]) on 04/02/2018 3:32:45 PM Referred By: LENIN Confirmed By:TERELL BEVERLY MD
--- NOTE | 2018-03-27 16:26 | RAD_ITS ---
STUDY: X-RAY CHEST REASON FOR EXAM: Male, 63 years old. Cough TECHNIQUE: Single frontal view of the chest. COMPARISON: February 19, 2018 FINDINGS: The lungs are clear and expanded. There is no demonstrated pleural abnormality. Normal size heart. Normal mediastinum and selina. Normal visualized pulmonary arteries. Normal visualized aortic arch and descending thoracic aorta. Normal visualized thoracic spine. Normal visualized ribs, clavicles, and shoulders. There is no demonstrated abnormality of the visualized soft tissue structures of the upper abdomen. RAD/Chest 1 View (Portable) IMPRESSION: Normal x-ray examination of the chest. Electronically Signed: Red Arizmendi MD at 16:47 EDT , Service support ,
--- NOTE | 2018-03-27 16:27 | ED.VISSUMM ---
- ER Visit Summary Date of Service: 03/27/18 Chief Complaint: Nausea, dizziness History of Present Illness: The patient is a 63 M who has a history of coronary vascular disease status post stenting, diabetes, hypertension presents with sudden onset dizziness. 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 He states that he ate about 230. He was going about his normal day. He states he got very lightheaded and felt his physical pass out. He states that he had a sensation of motion. He states he got very diaphoretic and nauseated. He denies any chest pain. He states this did happen to about 15 years ago. He states up until today, he has been in his normal state of health. He states he has had some mild shortness of breath, but that is chronic for him. He denies any recent change of medications. He denies any abdominal pain or chest pain. Physical Examination: Vital signs reviewed General: Well-nourished, well-developed, diaphoretic Head: Normocephalic, atraumatic Eyes: Pupils equal and reactive, extraocular muscles intact Neck, supple, no lymphadenopathy Heart: Regular rate and rhythm Respiratory: No distress, clear bilaterally Abdomen: Soft, nontender, nondistended, no peritoneal signs Back: Nontender Extremities: Nontender, no edema, no cords Skin: Normal color no rash Neuro: Alert and oriented, no focal or lateralizing deficits Test Results: [] Emergency Department Course and Treatment: The patient presents with sudden onset nausea and dizziness. He does describe the sensation of motion and he was near syncopal. His EKG was unremarkable. Patient was given Zofran with little change of his symptoms. He was then given Phenergan and was resting more comfortably. He has no changes in speech. Given the severity of his symptoms, I was unable to check his gait. The patient does have persistent vertiginous symptoms. He has been having intermittent neck pain. I did obtain a CTA of his head and neck which shows no dissection or other acute blockage. I do have some suspicion this may be a posterior circulation stroke given the persistent symptoms that are not really made worse with motion. The patient symptoms were mildly improved, but given his risk factors I do feel would benefit from observation. Patient was discussed with the hospitalist. Treatment Plan: [] Disposition: Admission Impression: 1. Acute vertigo This note was generated with [employer] software. It may contain incorrect words, spelling, and punctuation that were not noted in review of the chart prior to signing ED Disposition - Plan for ED Patient: Chief Complaint: Dizziness
--- NOTE | 2018-03-27 16:31 | CT_ITS ---
STUDY: CTA NECK WITH CONTRAST REASON FOR EXAM: Male, 63 years old. Dizziness RADIATION DOSAGE (If Supplied By Facility): CTDIvol = ( 44.57 ) mGy, DLP = ( 1925.14 ) mGycm TECHNIQUE: CT angiography with multi-detector data acquisition was performed from the aortic arch to the skull base following intravenous administration of 100 ml of Isovue 370 contrast. MIP images were reconstructed from the axial data set. Post-processing of the angiographic images was performed, with multiplanar reformation and 3D reconstruction. Individualized dose optimization techniques were used for this CT. COMPARISON: None. FINDINGS: AORTIC ARCH: Normal visualized aortic arch. Normal origins of the brachiocephalic, left common carotid, and left subclavian arteries. RIGHT CAROTID ARTERIES: Normal right common carotid artery (CCA). There is mild atherosclerotic plaque formation with minimal narrowing of the right carotid bulb. Normal origin of the right internal carotid (ICA) artery without a hemodynamically significant stenosis. Normal visualized cervical portion of the right internal carotid artery. Normal origin of the right external carotid artery (ECA). LEFT CAROTID ARTERIES: Normal left common carotid artery (CCA). There is mild atherosclerotic plaque formation with minimal narrowing of the left carotid bulb. Normal origin of the left internal carotid (ICA) artery without a hemodynamically significant stenosis. Normal visualized cervical portion of the left internal carotid artery. Normal origin of the left external carotid artery (ECA). VERTEBRAL ARTERIES: Left vertebral artery is dominant cyst appears normal. The right vertebral artery is hypoplastic may terminate as the posterior inferior cerebellar artery. IMPRESSION: Hypoplastic right vertebral artery otherwise unremarkable CTA neck Electronically Signed: Red Arizmendi MD at 17:43 EDT , Service support , STUDY: CTA OF THE BRAIN REASON FOR EXAM: Male, 63 years old. Dizziness RADIATION DOSAGE (If Supplied By Facility): CTDIvol = ( 44.57 ) mGy, DLP = ( 1925.14 ) mGycm TECHNIQUE: CT angiography was performed with a multi-detector CT scanner. Data acquisition was obtained from the skull base through the vertex following intravenous administration of 100 ml of Isovue-370. MIP images were reconstructed from the axial data set. Post-processing of the angiographic images was performed, with multiplanar reformation and 3D reconstruction. Individualized dose optimization techniques were used for this CT. COMPARISON: None. FINDINGS: Normal bilateral petrous carotid arteries. Normal right cavernous carotid artery with a normal supraclinoid bifurcation. Normal left cavernous carotid artery with a normal supraclinoid bifurcation. Normal right A1 segments of the anterior cerebral artery. Normal left A1 segments of the anterior cerebral artery. Normal intact anterior communicating artery (ACOM). Normal bilateral A2 segments of the anterior cerebral arteries. Normal right M1 and M2 segments of the middle cerebral arteries, with a normal M1 bifurcation. Normal left M1 and M2 segments of the middle cerebral arteries, with a normal M1 bifurcation. There is a persistent origin of the right posterior cerebral artery with absence of the posterior communicating artery (PCOM). There is non-visualization of the left posterior communicating artery (PCOM). Right vertebral artery is not well-visualized and may terminate as the posterior inferior cerebellar artery. Normal basilar artery with a normal basilar bifurcation. The visualized bilateral superior cerebellar (SCA) arteries are normal. Normal bilateral P1, P2 and visualized P3 segments of the posterior cerebral arteries. There is no demonstrated aneurysm of the [place]. There is no demonstrated abnormality of the visualized brain. CT/CTA Head W/WO Contrast IMPRESSION: Hypoplastic right vertebral artery otherwise unremarkable exam. Electronically Signed: Red Arizmendi MD at 17:47 EDT , Service support ,
--- NOTE | 2018-03-27 16:31 | CT_ITS ---
STUDY: CTA NECK WITH CONTRAST REASON FOR EXAM: Male, 63 years old. Dizziness RADIATION DOSAGE (If Supplied By Facility): CTDIvol = ( 44.57 ) mGy, DLP = ( 1925.14 ) mGycm TECHNIQUE: CT angiography with multi-detector data acquisition was performed from the aortic arch to the skull base following intravenous administration of 100 ml of Isovue 370 contrast. MIP images were reconstructed from the axial data set. Post-processing of the angiographic images was performed, with multiplanar reformation and 3D reconstruction. Individualized dose optimization techniques were used for this CT. COMPARISON: None. FINDINGS: AORTIC ARCH: Normal visualized aortic arch. Normal origins of the brachiocephalic, left common carotid, and left subclavian arteries. RIGHT CAROTID ARTERIES: Normal right common carotid artery (CCA). There is mild atherosclerotic plaque formation with minimal narrowing of the right carotid bulb. Normal origin of the right internal carotid (ICA) artery without a hemodynamically significant stenosis. Normal visualized cervical portion of the right internal carotid artery. Normal origin of the right external carotid artery (ECA). LEFT CAROTID ARTERIES: Normal left common carotid artery (CCA). There is mild atherosclerotic plaque formation with minimal narrowing of the left carotid bulb. Normal origin of the left internal carotid (ICA) artery without a hemodynamically significant stenosis. Normal visualized cervical portion of the left internal carotid artery. Normal origin of the left external carotid artery (ECA). VERTEBRAL ARTERIES: Left vertebral artery is dominant cyst appears normal. The right vertebral artery is hypoplastic may terminate as the posterior inferior cerebellar artery. IMPRESSION: Hypoplastic right vertebral artery otherwise unremarkable CTA neck Electronically Signed: Red Arizmendi MD at 17:43 EDT , Service support , STUDY: CTA OF THE BRAIN REASON FOR EXAM: Male, 63 years old. Dizziness RADIATION DOSAGE (If Supplied By Facility): CTDIvol = ( 44.57 ) mGy, DLP = ( 1925.14 ) mGycm TECHNIQUE: CT angiography was performed with a multi-detector CT scanner. Data acquisition was obtained from the skull base through the vertex following intravenous administration of 100 ml of Isovue-370. MIP images were reconstructed from the axial data set. Post-processing of the angiographic images was performed, with multiplanar reformation and 3D reconstruction. Individualized dose optimization techniques were used for this CT. COMPARISON: None. FINDINGS: Normal bilateral petrous carotid arteries. Normal right cavernous carotid artery with a normal supraclinoid bifurcation. Normal left cavernous carotid artery with a normal supraclinoid bifurcation. Normal right A1 segments of the anterior cerebral artery. Normal left A1 segments of the anterior cerebral artery. Normal intact anterior communicating artery (ACOM). Normal bilateral A2 segments of the anterior cerebral arteries. Normal right M1 and M2 segments of the middle cerebral arteries, with a normal M1 bifurcation. Normal left M1 and M2 segments of the middle cerebral arteries, with a normal M1 bifurcation. There is a persistent origin of the right posterior cerebral artery with absence of the posterior communicating artery (PCOM). There is non-visualization of the left posterior communicating artery (PCOM). Right vertebral artery is not well-visualized and may terminate as the posterior inferior cerebellar artery. Normal basilar artery with a normal basilar bifurcation. The visualized bilateral superior cerebellar (SCA) arteries are normal. Normal bilateral P1, P2 and visualized P3 segments of the posterior cerebral arteries. There is no demonstrated aneurysm of the [place]. There is no demonstrated abnormality of the visualized brain. CT/CTA Neck W/WO Contrast IMPRESSION: Hypoplastic right vertebral artery otherwise unremarkable exam. Electronically Signed: Red Arizmendi MD at 17:47 EDT , Service support ,
[2018-03-27] MEDS: Ondansetron 4 MG/2 ML Vial IV (16:35)
[2018-03-27] MEDS: 0.9% Normal Saline 1,000 ML 1000 ML IV (16:36)
[2018-03-27] MEDS: proMETHazine 25 MG/ML Syringe 6.25 MG IV (16:52)
[2018-03-27 16:53] LABS: Absolute Lymphocyte Count 2.94 X10^3/ul (0.83-4.51); Absolute Neutrophil Count 5.6 X10^3/uL (2.0-7.7); Basophil# 0.14 X10^3/uL; Basophil% 1.4 % (0-1); Eosinophil# 0.64 X10^3/uL; Eosinophils% 6.3 % (0-5); Hematocrit 42.7 % (40-54); Hemoglobin 11.9 g/dl (13.0-16.5); Lymphocyte # 2.94 X10^3/ul (4.0); Lymphocyte % 29.1 % (19-41); Mean Corp Hgb Conc 27.9 g/gl (32-36); Mean Corpuscular Hgb 18.4 pg (27.0-32.0); Mean Corpuscular Volume 66.2 fL (80-94); Monocyte# 0.73 X10^3/uL; Monocyte% 7.2 % (0-10); Neutrophil # 5.64 X10^3/uL (2.7-7.7); Neutrophil % 55.9 % (47-70); Platelet Count 225 K/mm3 (150-450); RBC Distribution Width SD 44.6 fl (35.1-43.9); Red Blood Count 6.45 M/mm3 (4.6-6.2); White Blood Count 10.1 K/mm3 (4.4-11.0)
[2018-03-27 16:54] LABS: Differential Indicated SCAN CRITERIA MET; POSITIVE COUNT NO; POSITIVE DIFFERENTIAL NO; POSITIVE MORPHOLOGY YES
[2018-03-27 16:59] LABS: ALB/GLOB Ratio 1.1 RATIO (0.9-2.4); AST(SGOT) 19 U/L (15-37); Alanine Aminotransfer ALT/SGPT 35 U/L (16-61); Albumin, Serum 3.9 g/dL (3.2-5.0); Alkaline Phosphatase 68 U/L (45-117); Anion Gap 11 (5-15); BUN 15 mg/dL (7-18); BUN/Creat Ratio 10.4 RATIO (10-20); Calcium,Total 8.9 mg/dL (8.5-10.1); Chloride 101 mmol/L (98-107); Creatinine, Serum 1.44 mg/dL (0.70-1.30); EST Glomerular Filtration Rate 52 mL/min (>60); Est Glom Filt Rate - Afr Amer 63 mL/min (>60); Estimated Creatinine Clearance 51.14 ml/min; Globulin 3.5 g/dL (2.2-4.2); Glucose 177 mg/dL (74-106); Potassium 3.5 mmol/L (3.5-5.1); Protein, Total 7.4 g/dL (6.4-8.2); Sodium Level 139 mmol/L (136-145)
[2018-03-27 17:26] LABS: Anisocytosis 1+; Hypochromasia RARE; Platelet Estimate ADEQUATE (ADEQ)
[2018-03-27 17:27] LABS: Microcytosis 2+
--- NOTE | 2018-03-27 18:15 | PCM.HP.STD ---
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 Around 230 this afternoon he developed severe dizziness and felt as if he was going to pass out , he became diaphoretic and nauseous. Rapid response was activated and he was transported to the emergency room for evaluation. CT scan of his brain and CT angiogram of the brain and neck were all unremarkable. Patient denies any chest pain, shortness of breath palpitations or rapid heartbeat. Past Medical History Past Medical History (Chronic Problems): Chronic Problems (Last Reviewed 01/06/18 @ 10:31 by BRYAN Brown) CAD (coronary artery disease) (Chronic) CLARK (dyspnea on exertion) (Chronic) Atherosclerotic heart disease of [place] coronary artery without angina pectoris (Chronic) 05/22/11, PTCA/stent X [address] 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 (Chronic) History of renal cell cancer (Chronic) Benign prostatic hypertrophy (Chronic) Type II diabetes mellitus (Chronic) Hyperlipidemia (Chronic) Obesity (Chronic) COPD (chronic obstructive pulmonary disease) (Chronic) Obstructive sleep apnea (Chronic) CPAP 13 cm of water Hypothyroidism (Chronic) Status post right partial nephrectomy (Chronic) Hypertension (Chronic) Medical History: Medical History (Last Reviewed 01/06/18 @ 10:31 by BRYAN Brown) Atherosclerotic heart disease of [place] coronary artery without angina pectoris (Chronic) I25.10 05/22/11, PTCA/stent X [address] 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 Meniscus degeneration M23.309 Nephrolithiasis N20.0 Precordial chest pain R07.2 Right elbow pain M25.521 Right knee pain M25.561 Rupture of right biceps tendon S46.211A Secondary polycythemia D75.1 Shortness of breath R06.02 Trochanteric bursitis, left hip M70.62 Asthma J45.909 Coronary artery disease I25.10 Depression F32.9 Osteoarthritis, knee M17.10 Sciatica M54.30 Allergies theophylline Allergy (Verified 01/06/18 10:14) Unknown Home Medications: Ambulatory Orders Medication Instructions Recorded Aspirin [Aspirin, Baby] 81 mg PO DAILY@0800 03/17/16 Tamsulosin HCl [Flomax] 0.4 mg PO DAILY 03/17/16 budesonide-formoterol HFA 160 2 puff INHALATION Q12H 01/01/18 mcg-4.5 mcg/actuation aerosol inhaler Metformin HCl 1,000 mg PO BREAKFAST 01/03/18 Metformin HCl 1,500 mg PO DINNER 01/03/18 Metoprolol Succinate [Toprol Xl] 25 mg PO DAILY 01/03/18 valsartan 80 1 tab PO DAILY 01/06/18 mg-hydrochlorothiazide 12.5 mg tablet Furosemide 40 mg PO DAILY 03/27/18 Testosterone [Androgel] 2 pump TD BID 03/27/18 Surgical History: Surgical History (Last Reviewed 01/06/18 @ 10:31 by Toma Morley, DRAFTER APPRENTICE-C) Postsurgical percutaneous transluminal coronary angioplasty (PTCA) status (Chronic) Z98.61 05/22/11, PTCA/stent X 2 to LAD Status post right partial nephrectomy (Chronic) H/O lithotripsy Z98.890 right 2011 History of tonsillectomy Z90.89 L eye surgery partial nephrectomy for renal cell cancer 07/2011 Surgical History: - - Cardiac stents him a right partial nephrectomy both in 2010 Psychiatric History: No pertinent psych hx Smoking Status: Former smoker - *Family History Maternal Family History: Family History (Last Reviewed 01/06/18 @ 10:31 by BRYAN Brown) Mother CAD (coronary artery disease) History Items: No pertinent history Paternal Family History: Family History (Last Reviewed 01/06/18 @ 10:31 by BRYAN Brown) Mother CAD (coronary artery disease) History Items: No pertinent history Review of Systems Constitutional: Reports: Anorexia, Chills Cardiovascular: Reports: Chest Pain Respiratory: Reports: Cough Comment: All Systems were reviewed with pertinent positives mentioned in the HPI above. VTE Information - Inpt Only VTE Present on Admission: No VTE Mechan Device Prophylaxis: SCD's VTE Pharm Prophylaxis ordered?: Yes - Physical Exam General: Alert, Oriented x3 HEENT: Atraumatic Oral: Moist Mucosa Neck: Supple Lungs: Clear to auscultation Cardiovascular: Regular rate, Normal S1, Normal S2, No Ectopic Activity Abdomen: Bowel Sounds Present, Non Tender Extremities: No clubbing Musculoskeletal: No Tenderness to Palpation of Joints or Extremities Lymphatic: No Cervical, Supraclavicular, or Inguinal Adenopathy Neurological: Cranial nerves II-XII grossly intact Vital Signs Temp Pulse Resp BP Pulse Ox 98.0 F 82 16 127/69 H 95 03/27/18 16:21 03/27/18 16:21 03/27/18 16:21 03/27/18 16:21 03/27/18 16:21 Oxygen Delivery Method Room Air Weight: 134 kg Body Mass Index (BMI) 43.6 Finger Stick Blood Glucose 202 Laboratory Tests Past 24 Hrs 03/27/18 03/27/18 16:25 16:25 WBC 10.1 RBC 6.45 H Hgb 11.9 L Hct 42.7 MCV 66.2 L MCH 18.4 L MCHC 27.9 L RDW 19.0 H RDW Differential 44.6 H Plt Count 225 MPV TNP Immature Gran % (Auto) 0.100 Neut % (Auto) 55.9 Lymph % (Auto) 29.1 Dougherty % (Auto) 7.2 Eos % (Auto) 6.3 H Baso % (Auto) 1.4 H Absolute Neuts (auto) 5.6 Absolute Lymphs (auto) 2.94 Total Counted Not Reportable Platelet Estimate ADEQUATE Hypochromasia RARE Anisocytosis 1+ Microcytosis 2+ Sodium 139 Potassium 3.5 Chloride 101 Carbon Dioxide 27.0 Anion Gap 11 BUN 15 Creatinine 1.44 H Estim Creat Clear Calc 51.14 Est GFR (MDRD) Af Amer 63 Est GFR (MDRD) Non-Af 52 L BUN/Creatinine Ratio 10.4 Glucose 177 H Calcium 8.9 Total Bilirubin 0.60 AST 19 ALT 35 Alkaline Phosphatase 68 Troponin I < 0.015 Total Protein 7.4 Albumin 3.9 Globulin 3.5 Albumin/Globulin Ratio 1.1 Assessment/Plan All Active Problems (Last Reviewed 01/06/18 @ 10:31 by Toma Morley, MYNOR-C) PNA (pneumonia) (Acute) RLL pneumonia (Acute) Sepsis (Acute) Influenza A (Acute) 1. Intractable dizziness; this was transient, it may represent a TIA versus cardiac arrhythmia (given his significant coronary artery disease), we will obtain MRI of the brain and echocardiogram . We will continue cardiac rhythm monitoring. 2 acute kidney injury; likely prerenal, will hydrate with 0.9 normal saline, will hold off on potential nephrotoxic agents. Renal parameters will be repeated in a.m. 3. CAD status post angioplasty with stenting; we will obtain serial cardiac enzymes and maintain him on his cardioprotective medications. 4 hypertension;n this is controlled. 5. hyperlipidemia; will maintain him on his statin. 6. DM II diabetes mellitus: insulin sliding scale, will hold off his Metformin due to ANNA MARIE. 7 obstructive sleep apnea will continue HS CPAP . 8. Hypothyroidism; he is on Synthroid. Will check a TSH. 9. Obesity; weight loss recommended. 10. DVT prophylaxis with subcutaneous Lovenox. Code Visit OBSV E&M: 14924 Initial observation care L3
[2018-03-27 19:03] VITALS: BMI 43.6
--- NOTE | 2018-03-27 19:13 | ECHOCS_ITS ---
Reason For Study: Afib/Flutter Procedure This was a 2D Doppler, Color Flow transthoracic echocardiogram. The study was technically difficult. Contrast injection was performed. Exam performed portable in patient room. Left Ventricle Normal LV size. Moderate concentric left ventricular hypertrophy. Left ventricular systolic function is normal. The estimated ejection fraction is 60 %. Transmitral diastolic flow velocities suggest mild (stage 1) diastolic dysfunction (reversed pattern). No regional wall motion abnormalities noted. Right Ventricle Normal RV size. Normal systolic function. Atria Normal left atrium. Normal right atrium. Mitral Valve Normal mitral valve. Tricuspid Valve The tricuspid valve is not well visualized. Aortic Valve The aortic valve is not well visualized. Pulmonic Valve The pulmonic valve is not well visualized. Great Vessels Mild to moderately dilated aortic root. The pulmonary artery is normal size. Normal inferior vena cava. Pericardium/Pleural No pericardial effusion. Medication Diluted definity 4ml given slow IV push to enhance endocardial definition. MMode/2D Measurements & Calculations LVIDd: 5.0 cm IVSd: 1.5 cm Ao root diam: 4.4 cm LVIDs: 3.1 cm LVPWd: 1.6 cm ACS: 1.7 cm FS: 37.9 % LVAd ap4: 30.8 cm2 SV(MOD-sp4): 59.0 ml SV(sp4-el): 59.5 ml EDV(MOD-sp4): 91.9 ml EDV(sp4-el): 94.1 ml LVAs ap4: 16.4 cm2 ESV(MOD-sp4): 32.9 ml ESV(sp4-el): 34.5 ml EF(MOD-sp4): 64.2 % EF(sp4-el): 63.3 % Time Measurements MV dec time: 0.21 sec Doppler Measurements & Calculations MV E max skyler: 75.9 cm/sec Lat Peak E' Skyler: 13.7 cm/sec Med Peak E' Skyler: 7.1 cm/sec MV A max skyler: 84.0 cm/sec E/E' lat: 5.5 E/E' med: 10.7 MV E/A: 0.90 MV V2 max: 90.5 cm/sec MV P1/2t max skyler: 88.3 cm/sec Ao V2 max: 125.8 cm/sec MV max P.3 mmHg MV P1/2t: 84.0 msec Ao max P.3 mmHg MV V2 mean: 53.9 cm/sec MV dec slope: 307.9 cm/sec2 Ao V2 mean: 82.2 cm/sec MV mean P.4 mmHg MVA(P1/2t): 2.6 cm2 Ao mean P.1 mmHg MV V2 VTI: 24.2 cm Ao V2 VTI: 21.1 cm LV V1 max: 96.3 cm/sec LV V1 max P.7 mmHg LV V1 mean P.7 mmHg LV V1 mean: 60.3 cm/sec LV V1 VTI: 18.6 cm Interpretation Summary Normal LV size. Moderate concentric left ventricular hypertrophy. Left ventricular systolic function is normal. The estimated ejection fraction is 60 %. Transmitral diastolic flow velocities suggest mild (stage 1) diastolic dysfunction (reversed pattern). Contrast injection was performed. Ordering Physician: Bg Estrella Referring Physician: Sebastien Stahl Performed By: Kevon Castellanos RCS
[2018-03-27 20:15] VITALS: BP 137/70; PULSE 93; RESP 18; TEMP 36.7; O2SAT 95
[2018-03-27 20:25] VITALS: PULSE 88
[2018-03-27 20:27] VITALS: BMI 43.7
[2018-03-27] MEDS: 0.9% Normal Saline 1,000 ML 75 ML IV (20:58)
[2018-03-27 21:07] VITALS: BP 137/70; PULSE 93
[2018-03-27] MEDS: Metoprolol(XL)Succ 25 MG Tablet PO (21:07)
[2018-03-27] MEDS: Tamsulosin HCl 0.4 MG Capsule PO (21:08)
[2018-03-27 22:59] VITALS: PULSE 83
[2018-03-27 23:21] VITALS: PULSE 77
[2018-03-28] VITALS (9 sets, daily range): BP systolic 115–161; BP diastolic 73–93; PULSE 67–87; RESP 14–18; TEMP 36.5–36.6; O2SAT 96–97
[2018-03-28] MEDS: Heparin Injection (Vial) 5,000 UNIT/ML VIAL 5000 UNIT SC ×2 (00:31→06:09)
[2018-03-28 07:22] LABS: Hematocrit 40.7 % (40-54); Hemoglobin 11.3 g/dl (13.0-16.5); Mean Corp Hgb Conc 27.8 g/gl (32-36); Mean Corpuscular Hgb 18.6 pg (27.0-32.0); Mean Corpuscular Volume 67.2 fL (80-94); Mean Platelet Vol. 10.2 fl (6.2-12.0); Platelet Count 189 K/mm3 (150-450); RBC Distribution Width CV 19.1 % (11.6-14.6); RBC Distribution Width SD 45.8 fl (35.1-43.9); Red Blood Count 6.06 M/mm3 (4.6-6.2); Scan Indicated on CBC? Y/N YES- FLAGS NOTED; White Blood Count 7.8 K/mm3 (4.4-11.0)
[2018-03-28 07:52] LABS: Anion Gap 8 (5-15); BUN 13 mg/dL (7-18); BUN/Creat Ratio 11.7 RATIO (10-20); Calcium,Total 8.4 mg/dL (8.5-10.1); Chloride 105 mmol/L (98-107); Creatinine, Serum 1.11 mg/dL (0.70-1.30); EST Glomerular Filtration Rate 71 mL/min (>60); Est Glom Filt Rate - Afr Amer 85 mL/min (>60); Estimated Creatinine Clearance 64.19 ml/min; Glucose 150 mg/dL (74-106); Magnesium 2.1 mg/dL (1.6-2.6); Potassium 4.1 mmol/L (3.5-5.1); Sodium Level 141 mmol/L (136-145)
[2018-03-28] MEDS: LORazepam 2 MG/ML Syringe 1 MG IV (09:27)
[2018-03-28] MEDS: 0.9% NaCl Peripheral Flush Adult/Peds IV (09:27)
[2018-03-28] MEDS: Aspirin 81 MG TAB.CHEW PO (09:29)
[2018-03-28] MEDS: Metoprolol(XL)Succ 25 MG Tablet PO (09:29)
[2018-03-28] MEDS: 0.9% Normal Saline 1,000 ML 75 ML IV (09:41)
[2018-03-28] MEDS: Insulin Lispro 100 UNIT/ML INSULN.PEN SC (11:49)
[2018-03-28 11:55] LABS: Bedside Glucose 181 mg/dL (70-110)
--- NOTE | 2018-03-28 12:15 | DCINST_ITS ---
You will use the following diet at home:: Calorie/Carbohydrate Controlled ( specify 1200, 1400, etc) - 1880 [address]y., Cardiac Discharge Activity: Return to Normal Activity Weight Bearing Status: Weight bearing as tolerated Call your doctor if you observe: Fever of 101 or Higher, Shortness of breath, Dizziness, Fainting spells, Chest pain, Increased palpitations (irregular heartbeat), Uncontrolled pain Allergies/Adverse Reactions: Allergies theophylline Allergy (Verified 01/06/18 10:14) Unknown Medications to take at Discharge Aspirin [Aspirin, Baby] 81 mg PO DAILY@0800 03/17/16 Tamsulosin HCl [Flomax] 0.4 mg PO DAILY 03/17/16 budesonide-formoterol HFA 160 mcg-4.5 mcg/actuation aerosol inhaler 2 puff INHALATION Q12H 01/01/18 Metformin HCl 1,000 mg PO BREAKFAST 01/03/18 Metformin HCl 1,500 mg PO DINNER 01/03/18 Metoprolol Succinate [Toprol Xl] 25 mg PO DAILY 01/03/18 valsartan 80 mg-hydrochlorothiazide 12.5 mg tablet 1 tab PO DAILY 01/06/18 Furosemide 40 mg PO DAILY 03/27/18 Levothyroxine Sodium [Synthroid] 225 mcg PO DAILY 03/27/18 Testosterone [Androgel] 2 pump TD DAILY 03/27/18 Meclizine HCl [Antivert] 25 mg PO TID PRN PRN #20 tab 03/28/18 The following prescriptions were given: Meclizine HCl [Antivert] 25 mg PO TID PRN PRN #20 tab PRN Reason: Vertigo Primary Care Physician: Sebastien Stahl MD [Primary Care Provider] - Please follow up with your Primary Care Physician in: 1 week.
--- NOTE | 2018-03-28 16:17 | PCM.DC.SUM ---
Discharge Date and Diagnosis Date of Admission: 03/27/18 Date of Discharge: 03/28/18 - Primary Discharge Diagnosis #1 vertigo/dizziness. #2 acute kidney injury. - Secondary Discharge Diagnosis Chronic Problems (Last Reviewed 01/06/18 @ 10:31 by BRYAN Brown) CAD (coronary artery disease) (Chronic) CLARK (dyspnea on exertion) (Chronic) Atherosclerotic heart disease of [place] coronary artery without angina pectoris (Chronic) 05/22/11, PTCA/stent X [address] 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 Electronically Signed: Red Arizmendi MD at 16:47 EDT , Service support , Head CTA 03/27/18 16:31 IMPRESSION: Hypoplastic right vertebral artery otherwise unremarkable exam. Electronically Signed: Red Arizmendi MD at 17:47 EDT , Service support , Neck CTA 03/27/18 16:31 IMPRESSION: Hypoplastic right vertebral artery otherwise unremarkable exam. Electronically Signed: Red Arizmendi MD at 17:47 EDT , Service support , Operations: None Procedures: 2-D Echocardiogram, EKG Summary of Care Provided: Patient seen and examined on the day of discharge and appeared to be stable to be discharged home. He has normal symptoms, normal vertigo or dizziness. No chest pain or shortness of breath. He denied focal symptoms. Denied numbness or tingling. He mentioned that he had episodes of vertigo in the past and the one happened yesterday is similar to what he had in the past. His vital signs are stable. - Physical Exam General: Alert, Oriented x3, Cooperative, No apparent distress. HEENT: Atraumatic, PERRLA, EOMI. Neck: Supple, No JVD, Negative Carotid Bruits, Trachea Midline, Thyroid Normal. Lungs: Diminished breath sounds bilateral, otherwise clear, No rhonchi, No wheeze, No rales. Cardiovascular: Regular rate, Regular Rhythm, Normal S1, Normal S2, PMI Normal. Abdomen: Bowel Sounds Present, Soft, Non Tender, Non-Distended, No Hepato-splenomegaly. Extremities: No clubbing, No cyanosis, No edema Skin: No rashes, No breakdown Neurological: Neuro grossly intact, intact cranial nerves, normal power. Vital Signs are stable. Hospital course: The patient is a 63 year old M admitted because of dizziness and vertigo. He described his symptoms as feeling dizzy with spinning sensation and he was about to pass out. He mentioned that his dizziness increases when he opens his eyes. He denies any symptoms suggestive of or typical of stroke. CTA of the head revealed no evidence of acute infarction or hemorrhage. CTA of the neck revealed hypoplastic right vertebral artery which unlikely to explain his symptoms. His EKG revealed normal sinus rhythm without evidence of cardiac arrhythmias or acute ischemic changes. 2D echocardiogram revealed ejection fraction 60%, no significant valvular heart disease. Patient was sent down to MRI brain and he was given IV Ativan because of claustrophobia but he was not able to perform the MRI secondary to claustrophobia and shortness of breath when he laid down and he asked not to do the MRI. His orthostatic vitals were stable. He was found to have acute kidney injury with admission creatinine of 1.44, received IV fluids and his creatinine came down back to normal at 1.11. His troponin was negative ?2. His LFT was normal. Patient discharged home in a stable medical condition, continued on his home medication without any changes, started on Antivert as needed for vertigo, recommended follow-up with PCP in 1 week. Discharge Activity: Return to Normal Activity Weight Bearing Status: Weight bearing as tolerated Call your doctor if you observe: Fever of 101 or Higher, Shortness of breath, Dizziness, Fainting spells, Chest pain, Increased palpitations (irregular heartbeat), Uncontrolled pain Home Medications: Medications to take at Discharge Aspirin [Aspirin, Baby] 81 mg PO DAILY@0800 03/17/16 Tamsulosin HCl [Flomax] 0.4 mg PO DAILY 03/17/16 budesonide-formoterol HFA 160 mcg-4.5 mcg/actuation aerosol inhaler 2 puff INHALATION Q12H 01/01/18 Metformin HCl 1,000 mg PO BREAKFAST 01/03/18 Metformin HCl 1,500 mg PO DINNER 01/03/18 Metoprolol Succinate [Toprol Xl] 25 mg PO DAILY 01/03/18 valsartan 80 mg-hydrochlorothiazide 12.5 mg tablet 1 tab PO DAILY 01/06/18 Furosemide 40 mg PO DAILY 03/27/18 Levothyroxine Sodium [Synthroid] 225 mcg PO DAILY 03/27/18 Testosterone [Androgel] 2 pump TD DAILY 03/27/18 Meclizine HCl [Antivert] 25 mg PO TID PRN PRN #20 tab 03/28/18 Following Prescrptions Were Given to Patient: Meclizine HCl [Antivert] 25 mg PO TID PRN PRN #20 tab PRN Reason: Vertigo Primary Care Physician: Sebastien Stahl MD [Primary Care Provider] - Please follow up with your Primary Care Physician in: 1 week. Please Follow Up With: Sebastien Stahl MD Disposition: Home Minutes spent on discharge:: 26 Patient Condition:: Stable Medical Necessity - Tobacco Use Smoking Status: Former smoker Tobacco Use: Cigarettes Meaningful Use Info Meaningful Use Diagnoses (Choose all that apply): None applicable Code Visit OBSV E&M: 49672 Observation care discharge
--- NOTE | 2018-03-28 16:25 | DS.PCM_ITS ---
Discharge Date and Diagnosis Date of Admission: 03/27/18 Date of Discharge: 03/28/18 - Primary Discharge Diagnosis #1 vertigo/dizziness. #2 acute kidney injury. - Secondary Discharge Diagnosis Chronic Problems (Last Reviewed 01/06/18 @ 10:31 by BRYAN Brown) CAD (coronary artery disease) (Chronic) CLARK (dyspnea on exertion) (Chronic) Atherosclerotic heart disease of [place] coronary artery without angina pectoris (Chronic) 05/22/11, PTCA/stent X [address] Prabhu Heath @ [facility] Palpitations (Chronic) Postsurgical percutaneous transluminal coronary angioplasty (PTCA) status ( Chronic) 05/22/11, PTCA/stent X 2 to LAD Other snf (current) 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 (Chronic) History of renal cell cancer (Chronic) Benign prostatic hypertrophy (Chronic) Type II diabetes mellitus (Chronic) Hyperlipidemia (Chronic) Obesity (Chronic) COPD (chronic obstructive pulmonary disease) (Chronic) Obstructive sleep apnea (Chronic) CPAP 13 cm of water Hypothyroidism (Chronic) Status post right partial nephrectomy (Chronic) Hypertension (Chronic) Hospital Course and Treatment Imaging Results: Clinical Impression(s) from Imaging Studies Chest X-Ray 03/27/18 16:26 IMPRESSION: Normal x-ray examination of the chest. Electronically Signed: Red Arizmendi MD at 16:47 EDT , Service support , Head CTA 03/27/18 16:31 IMPRESSION: Hypoplastic right vertebral artery otherwise unremarkable exam. Electronically Signed: Red Arizmendi MD at 17:47 EDT , Service support , Neck CTA 03/27/18 16:31 IMPRESSION: Hypoplastic right vertebral artery otherwise unremarkable exam. Electronically Signed: Red Arizmendi MD at 17:47 EDT , Service support , Operations: None Procedures: 2-D Echocardiogram, EKG Summary of Care Provided: Patient seen and examined on the day of discharge and appeared to be stable to be discharged home. He has normal symptoms, normal vertigo or dizziness. No chest pain or shortness of breath. He denied focal symptoms. Denied numbness or tingling. He mentioned that he had episodes of vertigo in the past and the one happened yesterday is similar to what he had in the past. His vital signs are stable. - Physical Exam General: Alert, Oriented x3, Cooperative, No apparent distress. HEENT: Atraumatic, PERRLA, EOMI. Neck: Supple, No JVD, Negative Carotid Bruits, Trachea Midline, Thyroid Normal. Lungs: Diminished breath sounds bilateral, otherwise clear, No rhonchi, No wheeze, No rales. Cardiovascular: Regular rate, Regular Rhythm, Normal S1, Normal S2, PMI Normal. Abdomen: Bowel Sounds Present, Soft, Non Tender, Non-Distended, No Hepato- splenomegaly. Extremities: No clubbing, No cyanosis, No edema Skin: No rashes, No breakdown Neurological: Neuro grossly intact, intact cranial nerves, normal power. Vital Signs are stable. Hospital course: The patient is a 63 year old M admitted because of dizziness and vertigo. He described his symptoms as feeling dizzy with spinning sensation and he was about to pass out. He mentioned that his dizziness increases when he opens his eyes. He denies any symptoms suggestive of or typical of stroke. CTA of the head revealed no evidence of acute infarction or hemorrhage. CTA of the neck revealed hypoplastic right vertebral artery which unlikely to explain his symptoms. His EKG revealed normal sinus rhythm without evidence of cardiac arrhythmias or acute ischemic changes. 2D echocardiogram revealed ejection fraction 60%, no significant valvular heart disease. Patient was sent down to MRI brain and he was given IV Ativan because of claustrophobia but he was not able to perform the MRI secondary to claustrophobia and shortness of breath when he laid down and he asked not to do the MRI. His orthostatic vitals were stable. He was found to have acute kidney injury with admission creatinine of 1.44, received IV fluids and his creatinine came down back to normal at 1.11. His troponin was negative ?2. His LFT was normal. Patient discharged home in a stable medical condition, continued on his home medication without any changes , started on Antivert as needed for vertigo, recommended follow-up with PCP in 1 week. Discharge Activity: Return to Normal Activity Weight Bearing Status: Weight bearing as tolerated Call your doctor if you observe: Fever of 101 or Higher, Shortness of breath, Dizziness, Fainting spells, Chest pain, Increased palpitations (irregular heartbeat), Uncontrolled pain Home Medications: Medications to take at Discharge Aspirin [Aspirin, Baby] 81 mg PO DAILY@0800 03/17/16 Tamsulosin HCl [Flomax] 0.4 mg PO DAILY 03/17/16 budesonide-formoterol HFA 160 mcg-4.5 mcg/actuation aerosol inhaler 2 puff INHALATION Q12H 01/01/18 Metformin HCl 1,000 mg PO BREAKFAST 01/03/18 Metformin HCl 1,500 mg PO DINNER 01/03/18 Metoprolol Succinate [Toprol Xl] 25 mg PO DAILY 01/03/18 valsartan 80 mg-hydrochlorothiazide 12.5 mg tablet 1 tab PO DAILY 01/06/18 Furosemide 40 mg PO DAILY 03/27/18 Levothyroxine Sodium [Synthroid] 225 mcg PO DAILY 03/27/18 Testosterone [Androgel] 2 pump TD DAILY 03/27/18 Meclizine HCl [Antivert] 25 mg PO TID PRN PRN #20 tab 03/28/18 Following Prescrptions Were Given to Patient: Meclizine HCl [Antivert] 25 mg PO TID PRN PRN #20 tab PRN Reason: Vertigo Primary Care Physician: Sebastien Stahl MD [Primary Care Provider] - Please follow up with your Primary Care Physician in: 1 week. Please Follow Up With: Sebastien Stahl MD Disposition: Home Minutes spent on discharge:: 26 Patient Condition:: Stable Medical Necessity - Tobacco Use Smoking Status: Former smoker Tobacco Use: Cigarettes Meaningful Use Info Meaningful Use Diagnoses (Choose all that apply): None applicable Code Visit OBSV E&M: 30091 Observation care discharge
[2018-03-31 07:20] LABS: Bedside Glucose 202 mg/dL (70-110)
== END 2018-03-28 12:15 | disposition home or self-care (01) ==
LOC: ED 16:57 → PCU 18:31
PROVIDERS: Admitting Provider Internal Medicine; Emergency Provider Emergency Medicine; Family Provider Family Medicine; PCP Family Medicine; Visit Provider Hospitalist
DX: R42 Dizziness and giddiness (principal); N17.9 Acute kidney failure, unspecified; I25.10 Atherosclerotic heart disease of native coronary artery without angina pectoris; N40.0 Benign prostatic hyperplasia without lower urinary tract symptoms; E11.9 Type 2 diabetes mellitus without complications; I10 Essential (primary) hypertension; R06.02 Shortness of breath; E66.9 Obesity, unspecified; Z79.84 Long term (current) use of oral hypoglycemic drugs; Z95.5 Presence of coronary angioplasty implant and graft; Z85.528 Personal history of 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neoplasm of kidney; Z79.899 Other long term (current) 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; Z79.82 Long term (current) use of aspirin; Z68.41 Body mass index [BMI] 40.0-44.9, adult; Z71.3 Dietary counseling and surveillance; G47.33 Obstructive sleep apnea (adult) (pediatric); E03.9 Hypothyroidism, unspecified; J44.9 Chronic obstructive pulmonary disease, unspecified; Z90.5 Acquired absence of kidney; M17.10 Unilateral primary osteoarthritis, unspecified knee; Z87.891 Personal history of nicotine dependence
CPT/HCPCS: 36415; 70496; 70498; 71045; 80048; 80053; 82962; 83735; 84484; 85025; 85027; 93005; 93306; 96361; 96372; 96374; 96375; 99218; 99284; J7030; Q9957; Q9967; A4216; C8929; G0378; J2405

== ENCOUNTER → 2018-05-13 10:15 | Outpatient (CLI) | payer OTHER, SELFPAY ==
[2018-05-13 10:53] LABS: Hematocrit 44.1 % (40-54); Hemoglobin 12.1 g/dl (13.0-16.5); Mean Corp Hgb Conc 27.4 g/gl (32-36); Mean Corpuscular Hgb 18.5 pg (27.0-32.0); Mean Corpuscular Volume 67.5 fL (80-94); Platelet Count 204 K/mm3 (150-450); RBC Distribution Width CV 20.4 % (11.6-14.6); RBC Distribution Width SD 48.2 fl (35.1-43.9); Red Blood Count 6.53 M/mm3 (4.6-6.2); Scan Indicated on CBC? Y/N YES- FLAGS NOTED; White Blood Count 7.6 K/mm3 (4.4-11.0)
[2018-05-13 11:12] LABS: Differential Comment S
[2018-05-13 11:28] LABS: Ferritin 10 ng/mL (26-388)
== END ==
PROVIDERS: Family Provider Family Medicine; PCP Family Medicine; Visit Provider Internal Medicine Hematology & Oncology
DX: D75.1 Secondary polycythemia (principal)
CPT/HCPCS: 36415; 82728; 85027

== ENCOUNTER → 2018-05-21 06:49 | Outpatient (CLI) | payer OTHER, SELFPAY ==
--- NOTE | 2018-05-21 11:21 | PFTCOMP ---
COMPLETE PULMONARY FUNCTION TEST INTERPRETATION Brief HPI: Patient is a 63 year old male, currently under the care of Dr. Ramos, who presents to [facility] for complete pulmonary function tests secondary to diagnosis of COPD. Respiratory therapist reports good effort and reproducible results. Interpretation: Forced expiration spirometry shows no large airways obstructive ventilatory defect with an FEV1 of 76% predicted. There is no significant bronchodilator response by ATS criteria. Spirograms are of good quality and plateau slowly, indicating slowly emptying areas of the lungs. The respiratory flow volume loop shows a normal pattern. Lung volumes by body plethysmography show a decreased total lung capacity at 5.26 L, 83% predicted. All other lung volumes are reduced symmetrically. Diffusion capacity by carbon monoxide is at the lower limit of normal at 78% predicted. The airway resistance is normal. Compared to previous pulmonary function tests from 05/28/2016, there has been a significant change in DLCO by 20%. Impression: Mild restrictive ventilatory defect with a symmetric reduction diffusing capacity. There has been worsening compared to previous study
== END ==
PROVIDERS: Family Provider Family Medicine; PCP Family Medicine; Visit Provider Internal Medicine Critical Care Medicine
DX: J44.9 Chronic obstructive pulmonary disease, unspecified (principal)
CPT/HCPCS: 94060; 94726; 94729

== ENCOUNTER → 2018-06-02 08:17 | Outpatient (CLI) | payer OTHER, SELFPAY ==
[2018-06-02 08:42] VITALS: PULSE 106; PULSE 113; PULSE 123; PULSE 124; PULSE 127; PULSE 128; PULSE 95; PULSE 97; O2SAT 92; O2SAT 93; O2SAT 94; O2SAT 95
--- NOTE | 2018-06-02 12:22 | PCM.PSN.6M ---
PSN 6 Minute Walk Test - 6 Minute Walk Test 6 Minute Walk Test: 6 Minute Walk Test PSN:6-Minute Walk Test Start: 06/02/18 08:41 Freq: Status: Active Protocol: RESP.6MINW Document 06/02/18 08:42 JUNAID (Rec: 06/02/18 08:47 JLA [id number]) 6 Minute Walk Test Date Performed 06/02/18 Time Performed 08:30 Height 5 ft 9 in Weight: 127.913 kg Weight in Pounds 282.[address]: Mino Ramos Assistive device used: None Pre-test Oxygen Delivery Method Room Air Pulse Ox (%) 94 Pulse Rate (60-100 beats/min) 95 Dyspnea Afua Scale (0-10) 2 Exertion Afua Scale (6-20) 6 1st minute Oxygen Delivery Method Room Air Pulse Ox (%) 94 Pulse Rate (60-100 beats/min) 113 H 2nd minute Oxygen Delivery Method Room Air Pulse Ox (%) 93 Pulse Rate (60-100 beats/min) 123 H 3rd minute Oxygen Delivery Method Room Air Pulse Ox (%) 93 Pulse Rate (60-100 beats/min) 124 H 4th minute Oxygen Delivery Method Room Air Pulse Ox (%) 92 Pulse Rate (60-100 beats/min) 127 H 5th minute Oxygen Delivery Method Room Air Pulse Ox (%) 93 Pulse Rate (60-100 beats/min) 106 H Number of Rests Taken 1 6th minute Oxygen Delivery Method Room Air Pulse Ox (%) 92 Pulse Rate (60-100 beats/min) 128 H Dyspnea Afua Scale (0-10) 3 Exertion Afua Scale (6-20) 11 Post-test Oxygen Delivery Method Room Air Pulse Ox (%) 95 Pulse Rate (60-100 beats/min) 97 Full Laps Walked 14 Partial Lap, Number of Tiles Walked 0 Total Distance Walked (ft) 826 - Interpretation Interpretation: The patient was able to ambulate 826 feet over the course of 6 minutes on room air with no assistive devices, but one break. The patient did not have significant desaturation, but did have tachycardia as high as 128 bpm. These findings are consistent with a cardiovascular limitation exercise tolerance. - Recommendations Recommendations: No supplemental oxygen is indicated at this time.
== END ==
PROVIDERS: Family Provider Family Medicine; PCP Family Medicine; Visit Provider Internal Medicine Critical Care Medicine
DX: J44.9 Chronic obstructive pulmonary disease, unspecified (principal)
CPT/HCPCS: 94618

== ENCOUNTER 2018-06-10 10:35 | Outpatient (RCR) | payer OTHER, SELFPAY ==
[2018-06-10 11:29] LABS: Hematocrit 45.1 % (40-54); Hemoglobin 12.5 g/dl (13.0-16.5); Mean Corp Hgb Conc 27.7 g/gl (32-36); Mean Corpuscular Hgb 18.9 pg (27.0-32.0); Mean Corpuscular Volume 68.2 fL (80-94); Platelet Count 200 K/mm3 (150-450); RBC Distribution Width CV 20.5 % (11.6-14.6); RBC Distribution Width SD 49.1 fl (35.1-43.9); Red Blood Count 6.61 M/mm3 (4.6-6.2); White Blood Count 6.7 K/mm3 (4.4-11.0)
[2018-06-10 11:30] LABS: Scan Indicated on CBC? Y/N YES- FLAGS NOTED
[2018-06-10 11:50] LABS: Ferritin 10 ng/mL (26-388); T4 Free Direct 1.18 ng/dL (0.76-1.46)
== END 2018-06-10 12:00 | disposition home or self-care (01) ==
LOC: LAB 10:35
PROVIDERS: Family Provider Family Medicine; PCP Family Medicine; Visit Provider Internal Medicine Hematology & Oncology
DX: E03.9 Hypothyroidism, unspecified (principal)
CPT/HCPCS: 36415; 82728; 84439; 84443; 85027

== ENCOUNTER 2018-06-19 06:52 | Day surgery (SDC) | payer OTHER, SELFPAY ==
[2018-06-18 08:57] VITALS: BMI 41.3
--- NOTE | 2018-06-19 08:57 | CL.D_ITS ---
Patient Name: DALE CAMPBELL Study Date: 06/19/2018 Performing: Rafael Torres MD Ht: 68.89 inches 175 cm : 1955 Wt: 279.99 lbs 127 kg Age: 63 Gender: male BSA: 2.38 PROCEDURE(S) PERFORMED [id number]/COR/LV CLINICAL PROFILE AND INDICATIONS Indications: Other Heart Failure: None Stress/Imaging Stress/Image Study Performed: No CAD Presentations: Symptom unlikely to be ischemic. CONCLUSIONS Coronary artery disease with previously placed stent in the left anterior descending artery with at m ost 50% in-stent stenosis. RECOMMENDATIONS Medical therapy DESCRIPTION OF PROCEDURE The patient arrived to the procedure lab. The risks and benefits of the procedure as well as a full d escription of our services here and current unavailability of surgical backup were fully explained to the patient and/or their significant other prior to the catheterization. The Timeout was completed, verifying the correct patient and procedure. The patient's procedural site was prepped and draped in the usual fashion. Local anesthetic was given subcutaneously to right groin region with Lidocaine 2%. Using a modified Seldinger technique, arterial access was obtained via the right femoral artery, a 5 Fr sheath was inserted. Left Coronary Artery selective angiography was performed in multiple views u sing a 5 Fr. JL4 catheter. Right Coronary Artery selective angiography was then performed in multiple views using a 5 Fr. 3DRC (Roe) catheter. Left Ventriculography was performed in SHAW projection using a 4 Fr. Pigtail catheter. LV to AO pullback pressures were then recorded.Contrast was injected through the sheath and the Right Iliac and Femoral artery were assessed for possible closure device.T he arterial sheath was pulled and a Mynx closure device was deployed for hemostasis CORONARY ANGIOGRAPHY DOMINANCE: Right Dominant LEFT HEART ASSESSMENT Left Ventricular Ejection Fraction: by LV Gram 60 % Normal LV wall motion Normal Left Ventricular systolic function LEFT MAIN: Angiographically normal LEFT ANTERIOR DECENDING ARTERY: PROX LAD: Instent restenosis 50 % DIAGONAL 1: Proximal - Mild luminal irregularities less than 30% CIRCUMFLEX ARTERY: Mild luminal irregularities RIGHT CORONARY ARTERY: Mild luminal irregularities COMPLICATIONS No Complications PROCEDURE MEDICATIONS Versed 1 mg IV Oxygen: 4 L/min via nasal cannula Oxygen: 0 L/min via Home CPAP device with pressure support of 13 IV Fluids: .9 NaCl increased to 150 ml/hr 06/19/2018 08:35:44 SUMMARY OF HEMODYNAMIC DATA Time AIR REST ECG 07:28:13 AO 95/62 (76) SA 08:27:46 LV 88/5, 10 08:36:02 LV 91/6, 11 08:36:08 LV 91/6, 11 08:37:26 LVp 90/7, 11 08:37:34 AOp 93/58 (72) 08:37:39 Signed By Rafael Torres MD On 06/19/2018 8:56:38 AM Rafael Torres MD
== END 2018-06-19 11:40 | disposition home or self-care (01) ==
LOC: CLSP 06:52
PROVIDERS: Family Provider Family Medicine; PCP Family Medicine; Visit Provider Internal Medicine Cardiovascular Disease
DX: I25.810 Atherosclerosis of coronary artery bypass graft(s) without angina pectoris (principal); R06.02 Shortness of breath; R06.09 Other forms of dyspnea; D75.1 Secondary polycythemia; E66.9 Obesity, unspecified; Z68.41 Body mass index [BMI] 40.0-44.9, adult; E11.9 Type 2 diabetes mellitus without complications; E78.5 Hyperlipidemia, unspecified; J44.9 Chronic obstructive pulmonary disease, unspecified; G47.33 Obstructive sleep apnea (adult) (pediatric); E03.9 Hypothyroidism, unspecified; I10 Essential (primary) hypertension; J45.909 Unspecified asthma, uncomplicated; F32.9 Major depressive disorder, single episode, unspecified; M17.9 Osteoarthritis of knee, unspecified; Z87.891 Personal history of nicotine dependence; Z98.61 Coronary angioplasty status; Z79.82 Long term (current) use of aspirin; Z79.84 Long term (current) use of oral hypoglycemic drugs; Z79.899 Other long term (current) 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
CPT/HCPCS: 93458; 99152; 99153; J7040; Q9967

== ENCOUNTER 2018-06-21 15:00 | Inpatient (IN) | payer OTHER, MEDICARE, SELFPAY ==
[2018-06-21] VITALS (12 sets, daily range): BP systolic 112–146; BP diastolic 72–88; PULSE 92–120; RESP 12–31; TEMP 36.7–36.8; O2SAT 90–98; BMI 42.1; BMI 41.5
--- NOTE | 2018-06-21 15:03 | EKG12_ITS ---
Test Reason : SOB Blood Pressure : / mmHG Vent. Rate : 116 BPM Atrial Rate : 116 BPM P-R Int : 170 ms QRS Dur : 092 ms QT Int : 322 ms P-R-T Axes : 050 -64 028 degrees QTc Int : 447 ms Sinus tachycardia Left axis deviation Inferior infarct , age undetermined Abnormal ECG Confirmed by SIRIA MICHELLE, TERELL ([id number]), editor continuity and script RIMMA LAZARO ([id number]) on 06/24/2018 9:31:48 AM Referred By: TIFFANY Confirmed By:TERELL BEVERLY MD
--- NOTE | 2018-06-21 15:28 | RAD_ITS ---
STUDY: X-RAY CHEST REASON FOR EXAM: Male, 63 years old. Back pain and shortness of breath after cardiac catheterization. History of congestive heart failure, COPD and asthma. TECHNIQUE: Single AP portable view of the chest. COMPARISON: Prior chest radiograph of March 27, 2018 FINDINGS: Negative for pneumothorax, pneumomediastinum or subcutaneous emphysema. The lungs are clear and expanded. There is no demonstrated pleural abnormality. Normal size heart. Normal mediastinum and selina. Normal visualized pulmonary arteries. Normal visualized aortic arch and descending thoracic aorta. Normal visualized thoracic spine. Normal visualized ribs, clavicles, and shoulders. There is no demonstrated abnormality of the visualized soft tissue structures of the upper abdomen. RAD/Chest 1 View (Portable) IMPRESSION: No acute cardiopulmonary findings or changes. Electronically Signed: Claudette Mendoza MD at 15:42 EDT , Service support ,
--- NOTE | 2018-06-21 15:35 | CT_ITS ---
STUDY: CTA OF THE ABDOMINAL AORTA AND BILATERAL LOWER EXTREMITIES REASON FOR EXAM: Male, 63 years old. Chest pain after recent cardiac catheterization. Evaluation for aortic dissection. RADIATION DOSAGE (If Supplied By Facility): CTDIvol = ( 16.06 ) mGy, DLP = ( 1129.39 ) mGycm TECHNIQUE: Axial CT angiography multi-detector data acquisition was obtained from the diaphragm to the pelvis following intravenous administration of 100ML ml of Isovue 370 contrast. Axial images and MIP images were reconstructed from the axial data set. Post-processing of the angiographic images was performed, with multiplanar reformation and 3D reconstruction. Individualized dose optimization techniques were used for this CT. TECHNICAL QUALITY: Good COMPARISON: None. Descriptors of Narrowing: None (0%) Mild (< 50%) Moderate (50-70%) Severe (70-90%) Subtotal/Total Occlusion (90-100%) Non-Evaluable (technically non-diagnostic FINDINGS: Abdominal aorta: Mild plaque of the abdominal aorta with tortuosity. Negative for aneurysm or dissection. Celiac and superior mesenteric arteries: No demonstrated narrowing. Inferior mesenteric artery: No demonstrated narrowing. Right renal artery(arteries): No demonstrated narrowing. Left renal artery(arteries): No demonstrated narrowing. Right common iliac artery: No demonstrated narrowing. Right external iliac artery: No demonstrated narrowing. Right internal iliac artery: No demonstrated narrowing. Left common iliac artery: No demonstrated narrowing. Left external iliac artery: No demonstrated narrowing. Left internal iliac artery: No demonstrated narrowing. Unremarkable liver, spleen, pancreas and a contracted gallbladder. No acute renal findings. No acute bowel related findings. IMPRESSION: Mild plaque and tortuosity of the abdominal aorta without aneurysm or dissection. Negative for significant arterial stenosis in the [id number]. N.B. : The above information has been verbally conveyed by Claudette Mendoza MD to Dr. Ronnie Riley MD, on 06/21/2018 18:26:29 (ET). Electronically Signed: Claudette Mendoza MD at 17:32 EDT , Service support , STUDY: CTA CHEST REASON FOR EXAM: Male, 63 years old. Chest pain after cardiac catheterization. Evaluation for aortic aneurysm. This RADIATION DOSAGE (If Supplied By Facility): CTDIvol = ( ) mGy, DLP = ( ) mGycm TECHNIQUE: The examination was performed with the intravenous administration of 100ML ml of Isovue 370 contrast material. Post-processing of the angiographic images was performed, with multiplanar reformation and 3D reconstruction. Individualized dose optimization techniques were used for this CT. COMPARISON: None. FINDINGS: The study is really not adequate for evaluation of pulmonary embolus secondary to the fact that the contrast bolus is intentionally directed towards the arterial side. There is too much flow artifact in the pulmonary system to be certain. However, there appears to be a discrete filling defect in the distal left pulmonary artery that can't be ignored. Mild tortuosity and mild plaque of the thoracic aorta without aneurysm or dissection. Normal heart and pericardium. Coronary calcification versus stent, LAD. Normal mediastinum. Normal hilar regions. Normal visualized trachea and bronchi. There is a small peripheral groundglass infiltrate of the anterior left upper lobe. Mild elevation of the right diaphragm and mild compressive atelectatic changes at the right lung base. Negative for pleural effusion. Normal chest wall structures. There are degenerative changes of thoracic spine. CT/CTA Chest W/WO Contrast IMPRESSION: Mild plaque in elongation of the thoracic aorta without aneurysm or dissection. Study is largely inadequate for exclusion of pulmonary embolus. However there is a fairly discrete small filling defect in the distal left pulmonary artery. Possible pulmonary embolus. Normal cardiac size without significant pericardial effusion. LAD coronary calcifications versus stent. Small nonspecific multifocal groundglass infiltrate in the anterior left upper lung. Chronic moderate elevation of the right diaphragm with chronic compressive changes at the right lung base. N.B. : The above information has been verbally conveyed by Claudette M. Reji, MD to Dr. Ronnie Riley MD, on 06/21/2018 18:26:29 (ET). Electronically Signed: Claudette Mendoza MD at 17:48 EDT , Service support ,
--- NOTE | 2018-06-21 15:40 | CT_ITS ---
STUDY: CTA OF THE ABDOMINAL AORTA AND BILATERAL LOWER EXTREMITIES REASON FOR EXAM: Male, 63 years old. Chest pain after recent cardiac catheterization. Evaluation for aortic dissection. RADIATION DOSAGE (If Supplied By Facility): CTDIvol = ( 16.06 ) mGy, DLP = ( 1129.39 ) mGycm TECHNIQUE: Axial CT angiography multi-detector data acquisition was obtained from the diaphragm to the pelvis following intravenous administration of 100ML ml of Isovue 370 contrast. Axial images and MIP images were reconstructed from the axial data set. Post-processing of the angiographic images was performed, with multiplanar reformation and 3D reconstruction. Individualized dose optimization techniques were used for this CT. TECHNICAL QUALITY: Good COMPARISON: None. Descriptors of Narrowing: None (0%) Mild (< 50%) Moderate (50-70%) Severe (70-90%) Subtotal/Total Occlusion (90-100%) Non-Evaluable (technically non-diagnostic FINDINGS: Abdominal aorta: Mild plaque of the abdominal aorta with tortuosity. Negative for aneurysm or dissection. Celiac and superior mesenteric arteries: No demonstrated narrowing. Inferior mesenteric artery: No demonstrated narrowing. Right renal artery(arteries): No demonstrated narrowing. Left renal artery(arteries): No demonstrated narrowing. Right common iliac artery: No demonstrated narrowing. Right external iliac artery: No demonstrated narrowing. Right internal iliac artery: No demonstrated narrowing. Left common iliac artery: No demonstrated narrowing. Left external iliac artery: No demonstrated narrowing. Left internal iliac artery: No demonstrated narrowing. Unremarkable liver, spleen, pancreas and a contracted gallbladder. No acute renal findings. No acute bowel related findings. IMPRESSION: Mild plaque and tortuosity of the abdominal aorta without aneurysm or dissection. Negative for significant arterial stenosis in the [id number]. N.B. : The above information has been verbally conveyed by Claudette Mendoza MD to Dr. Ronnie Riley MD, on 06/21/2018 18:26:29 (ET). Electronically Signed: Claudette Mendoza MD at 17:32 EDT , Service support , STUDY: CTA CHEST REASON FOR EXAM: Male, 63 years old. Chest pain after cardiac catheterization. Evaluation for aortic aneurysm. This RADIATION DOSAGE (If Supplied By Facility): CTDIvol = ( ) mGy, DLP = ( ) mGycm TECHNIQUE: The examination was performed with the intravenous administration of 100ML ml of Isovue 370 contrast material. Post-processing of the angiographic images was performed, with multiplanar reformation and 3D reconstruction. Individualized dose optimization techniques were used for this CT. COMPARISON: None. FINDINGS: The study is really not adequate for evaluation of pulmonary embolus secondary to the fact that the contrast bolus is intentionally directed towards the arterial side. There is too much flow artifact in the pulmonary system to be certain. However, there appears to be a discrete filling defect in the distal left pulmonary artery that can't be ignored. Mild tortuosity and mild plaque of the thoracic aorta without aneurysm or dissection. Normal heart and pericardium. Coronary calcification versus stent, LAD. Normal mediastinum. Normal hilar regions. Normal visualized trachea and bronchi. There is a small peripheral groundglass infiltrate of the anterior left upper lobe. Mild elevation of the right diaphragm and mild compressive atelectatic changes at the right lung base. Negative for pleural effusion. Normal chest wall structures. There are degenerative changes of thoracic spine. CT/CTA Abdomen W/WO Contrast IMPRESSION: Mild plaque in elongation of the thoracic aorta without aneurysm or dissection. Study is largely inadequate for exclusion of pulmonary embolus. However there is a fairly discrete small filling defect in the distal left pulmonary artery. Possible pulmonary embolus. Normal cardiac size without significant pericardial effusion. LAD coronary calcifications versus stent. Small nonspecific multifocal groundglass infiltrate in the anterior left upper lung. Chronic moderate elevation of the right diaphragm with chronic compressive changes at the right lung base. N.B. : The above information has been verbally conveyed by Claudette M. [place], MD to Dr. Ronnie Riley MD, on 06/21/2018 18:26:29 (ET). Electronically Signed: Claudette Mendoza MD at 17:48 EDT , Service support ,
[2018-06-21 15:46] LABS: Absolute Lymphocyte Count 1.64 X10^3/ul (0.83-4.51); Absolute Neutrophil Count 7.4 X10^3/uL (2.0-7.7); Basophil% 0.9 % (0-1); Eosinophil# 0.66 X10^3/uL; Eosinophils% 6.2 % (0-5); Hemoglobin 11.9 g/dl (13.0-16.5); International Normalized Ratio 1.1; Lymphocyte # 1.64 X10^3/ul (4.0); Lymphocyte % 15.5 % (19-41); Mean Corp Hgb Conc 28.3 g/gl (32-36); Mean Corpuscular Volume 67.1 fL (80-94); Monocyte# 0.75 X10^3/uL; Monocyte% 7.1 % (0-10); Neutrophil # 7.41 X10^3/uL (2.7-7.7); Neutrophil % 70.2 % (47-70); Platelet Count 238 K/mm3 (150-450); Prothrombin Time (Protime)PT. 13.8 SECONDS (11.7-14.9); RBC Distribution Width CV 19.8 % (11.6-14.6); RBC Distribution Width SD 47.4 fl (35.1-43.9); Red Blood Count 6.26 M/mm3 (4.6-6.2); White Blood Count 10.6 K/mm3 (4.4-11.0)
[2018-06-21 15:48] LABS: Differential Indicated SCAN CRITERIA MET; POSITIVE COUNT NO; POSITIVE DIFFERENTIAL NO; POSITIVE MORPHOLOGY YES
[2018-06-21 15:58] LABS: Anion Gap 8 (5-15); BUN 19 mg/dL (7-18); BUN/Creat Ratio 11.6 RATIO (10-20); Calcium,Total 8.5 mg/dL (8.5-10.1); Chloride 102 mmol/L (98-107); Creatinine, Serum 1.64 mg/dL (0.70-1.30); EST Glomerular Filtration Rate 45 mL/min (>60); Est Glom Filt Rate - Afr Amer 54 mL/min (>60); Estimated Creatinine Clearance 44.91 ml/min; Glucose 250 mg/dL (74-106); Potassium 3.7 mmol/L (3.5-5.1); Sodium Level 137 mmol/L (136-145)
[2018-06-21 16:20] LABS: Anisocytosis RARE; Hypochromasia 1+; Microcytosis 1+; Ovalocyte RARE; Platelet Estimate ADEQUATE (ADEQ); Polychromasia RARE
[2018-06-21 16:21] LABS: Platelet Morphology LARGE
[2018-06-21] MEDS: LORazepam 2 MG/ML Syringe 1 MG IV (16:23)
--- NOTE | 2018-06-21 18:15 | NURSING ---
DR CRAWLEY FOR DR KIMBALL
[2018-06-21 18:24] LABS: Partial Thromboplast Time 28.6 Seconds (24.1-36.2)
--- NOTE | 2018-06-21 18:25 | NURSING ---
PCU LT MAIN PE DENISA
--- NOTE | 2018-06-21 18:35 | ED.VISSUMM ---
- ER Visit Summary Date of Service: 06/21/18 Chief Complaint: Shortness of breath History of Present Illness: The patient is a 63 M who presents with shortness of breath. The patient has had some shortness of breath for a couple of months but it acutely worsened today particularly in the last couple of hours. He did have a cardiac catheterization 2 days ago. He complains of a mild nonproductive cough. He also complains of mid upper central back pain which is aching in nature rated as 4 out of 10. Physical Examination: Heart rate 117 pulse ox 90% on 2 L nasal cannula respiratory rate 31 Moist mucous membranes Heart regular rhythm tachycardia Lungs are clear without rales rhonchi wheezes Abdomen soft I am unable to easily palpate radial pulses but he does have symmetric Doppler signals at the radial pulses Alert Test Results: EKG shows sinus rhythm at a rate of 116. Labs notable for hemoglobin 11.9, BUN of 19 with creatinine 1.64, glucose 250. INR and PTT normal. Troponin normal. Chest x-ray shows no acute process. CTA of the chest shows no evidence of dissection but there is suggestion of distal left pulmonary artery pulmonary embolism. Emergency Department Course and Treatment: Both pulmonary embolism and aortic dissection are on this patient's differential. Given central mid back pain and difficulty palpating radial pulses with recent cardiac catheterization I had higher clinical concern for aortic dissection so the CTA of the chest was optimized for the aorta. This showed normal aorta but was concerning for pulmonary emboli. This certainly also fits with the patient's presentation of tachycardia shortness of breath and hypoxia. Given that he does have some renal insufficiency and also received a further dye load today we will treat with IV heparin rather than medications such subcutaneous Lovenox. Patient was discussed with the hospitalist and will be admitted for further management. Treatment Plan: [] Disposition: Admit Impression: Pulmonary embolism This note was generated with [employer] dictation software. It may contain incorrect words, spelling, and punctuation that were not noted in review of the chart prior to signing ED Disposition - Plan for ED Patient: Chief Complaint: Shortness of Breath Referrals: Sebastien Stahl MD [Primary Care Provider] -
--- NOTE | 2018-06-21 18:36 | PCM.HP.STD ---
Problem List (1) Left pulmonary artery PE Status: Acute (2) History of coronary artery stent placement Status: Resolved Comment: PCI to proximal LAD with overlapping 3.0 x 28 mm and 3.5 x 12 mm Vision bare metal stents w/ POBA ostial D1 05/24/2011 @ [facility] (3) CLARK (dyspnea on exertion) Status: Chronic (4) Atherosclerotic heart disease of [place] coronary artery without angina pectoris Status: Chronic Comment: PCI to proximal LAD with overlapping 3.0 x 28 mm and 3.5 x 12 mm Vision bare metal stents w/ POBA ostial D1 05/24/2011 (5) Palpitations Status: Chronic (6) History of renal cell cancer Status: Chronic (7) Benign prostatic hypertrophy Status: Chronic (8) Type II diabetes mellitus Status: Chronic (9) Hyperlipidemia Status: Chronic (10) Obesity Status: Chronic Qualifiers: (11) COPD (chronic obstructive pulmonary disease) Status: Chronic Qualifiers: (12) Obstructive sleep apnea Status: Chronic Comment: CPAP 13 cm of water (13) Hypothyroidism Status: Chronic (14) Status post right partial nephrectomy Status: Chronic (15) Hypertension Status: Chronic History of Present Illness Date of Admission: 06/21/18 Chief Complaint: Acute on chronic shortness of breath today and interscapular pain The patient is a 63 year old M morbidly obese with probable history of COPD, obstructive sleep apnea on CPAP and coronary artery disease with recent cath on last Friday with about 50% in-stent stenosis of proximal LAD with EF 60% with normal LV wall motion and systolic function came to ER with acute and chronic shortness of breath today. Patient has chronic shortness of breath and probable COPD and obstructive sleep apnea on CPAP. Patient follows Dr. Storey and Dr. solorio. Previously, he had PFT with Dr. Storey was told his PFT is good but he has about 15-20 pack years of smoking and chronic shortness of breath. Today, he suddenly felt intrascapular pain while worsening of shortness of breath and discharge. Interscapular back pain, lasted for about 10-15 minutes but still short of breath. In ED, EKG shows sinus tachycardia at 116 bpm with LAD. Vitals significant of tachycardia 114/min, pulse ox 93% on 4 L of oxygen. Patient had CT angiogram of chest which shows fairly discrete a small filling defect in distal left pulmonary artery, although reported as study likely inadequate for exclusion of PE. Patient creatinine is 1.64, BUN 19. Previous creatinine on 05/27/2018 was normal 1.21 with estimated creatinine clearance 64 mL/min. The patient was started on IV heparin drip. Past Medical History Past Medical History (Chronic Problems): Chronic Problems (Last Reviewed 06/19/18 @ 09:48 by Toma Morley, [employer] MANAGER-C) CLARK (dyspnea on exertion) (Chronic) Atherosclerotic heart disease of [place] coronary artery without angina pectoris (Chronic) PCI to proximal LAD with overlapping 3.0 x 28 mm and 3.5 x 12 mm Vision bare metal stents w/ POBA ostial D1 05/24/2011 Palpitations (Chronic) History of renal cell cancer (Chronic) Benign prostatic hypertrophy (Chronic) Type II diabetes mellitus (Chronic) Hyperlipidemia (Chronic) Obesity (Chronic) COPD (chronic obstructive pulmonary disease) (Chronic) Obstructive sleep apnea (Chronic) CPAP 13 cm of water Hypothyroidism (Chronic) Status post right partial nephrectomy (Chronic) Hypertension (Chronic) Medical History: Medical History (Last Reviewed 06/19/18 @ 09:48 by Toma Morley, [employer] BUSINESS MANAGER-C) Atherosclerotic heart disease of [place] coronary artery without angina pectoris (Chronic) I25.10 PCI to proximal LAD with overlapping 3.0 x 28 mm and 3.5 x 12 mm Vision bare metal stents w/ POBA ostial D1 05/24/2011 Palpitations (Chronic) R00.2 History of renal cell cancer (Chronic) Z85.528 Benign prostatic hypertrophy (Chronic) N40.0 Type II diabetes mellitus (Chronic) E11.9 Hyperlipidemia (Chronic) E78.5 Obesity (Chronic) E66.9 COPD (chronic obstructive pulmonary disease) (Chronic) J44.9 Obstructive sleep apnea (Chronic) G47.33 CPAP 13 cm of water Hypothyroidism (Chronic) E03.9 Hypertension (Chronic) I10 Acute tear medial meniscus S83.249A Dyspnea R06.00 Instability of medial collateral ligament of knee M23.8X9 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 Meniscus degeneration M23.309 Nephrolithiasis N20.0 Precordial chest pain R07.2 Right elbow pain M25.521 Right knee pain M25.561 Rupture of right biceps tendon S46.211A Secondary polycythemia D75.1 Shortness of breath R06.02 Trochanteric bursitis, left hip M70.62 Asthma J45.909 Coronary artery disease I25.10 Depression F32.9 Osteoarthritis, knee M17.10 Sciatica M54.30 Other prison (current) 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 (Resolved) Z79.899 Allergies theophylline Allergy (Verified 06/16/18 09:39) Unknown Home Medications: Ambulatory Orders Medication Instructions Recorded Aspirin [Aspirin, Baby] 81 mg PO DAILY@0800 03/17/16 Tamsulosin HCl [Flomax] 0.4 mg PO DAILY 03/17/16 budesonide-formoterol HFA 160 2 puff INHALATION Q12H 01/01/18 mcg-4.5 mcg/actuation aerosol inhaler Metformin HCl 1,000 mg PO BREAKFAST 01/03/18 Metformin HCl 1,500 mg PO DINNER 01/03/18 Metoprolol Succinate [Toprol Xl] 25 mg PO DAILY 01/03/18 valsartan 80 1 tab PO DAILY 01/06/18 mg-hydrochlorothiazide 12.5 mg tablet Furosemide 40 mg PO DAILY 03/27/18 Levothyroxine Sodium [Synthroid] 225 mcg PO DAILY 03/27/18 Testosterone [Androgel] 2 pump TD DAILY 03/27/18 albuterol sulfate HFA 90 2 puff INHALATION Q4H PRN #18 g 06/18/18 mcg/actuation aerosol inhaler Surgical History: Surgical History (Last Reviewed 06/19/18 @ 09:48 by BRYAN Brown) History of coronary artery stent placement (Resolved) Onset Date: 05/24/11 Z95.5 PCI to proximal LAD with overlapping 3.0 x 28 mm and 3.5 x 12 mm Vision bare metal stents w/ POBA ostial D1 05/24/2011 @ [facility] Status post right partial nephrectomy (Chronic) H/O lithotripsy Z98.890 right 2011 History of tonsillectomy Z90.89 L eye surgery partial nephrectomy for renal cell cancer 07/2011 Surgical History: - - Cardiac stents him a right partial nephrectomy both in 2010 Psychiatric History: No pertinent psych hx Smoking Status: Former smoker - Quit in - *Family History Maternal Family History: Family History (Last Reviewed 06/19/18 @ 09:48 by BRYAN Brown) Mother CAD (coronary artery disease) History Items: No pertinent history Paternal Family History: Family History (Last Reviewed 06/19/18 @ 09:48 by BRYAN Brown) Mother CAD (coronary artery disease) History Items: No pertinent history, - - No history of clotting disorder in first-degree family relative Review of Systems Constitutional: Denies: Chills, Fever, Weight Change HEENT: Denies: Head Aches, Sinus Congestion, Sinus Drainage Cardiovascular: Reports: - - Interscapular back pain. Denies: Chest Pain, Palpitations Respiratory: Reports: Shortness of Breath, Shortness of breath upon exertion. Denies: Cough, Hemoptysis, Shortness of breath at rest, Sputum production Gastrointestinal: Denies: Abdominal Pain, Nausea, Vomiting Genitourinary: Denies: Dysuria Musculoskeletal: Denies: Joint Pain, Joint Tenderness Skin: Denies: Rash, Wounds Neurological: Denies: Numbness, Tingling, Focal weakness Psychiatric: Denies: Anxiety, Depression, Homicidal Ideations, Suicidal Ideations Hematologic/ Lymphatic: Denies: Easy Bruising, Easy Bleeding VTE Information - Inpt Only VTE Present on Admission: Yes VTE Mechan Device Prophylaxis: None Reason prophylaxis not ordered:: Procedure Not Indicated - On IV heparin drip Patient Problems: Active and Suspected Problems (Last Reviewed 06/19/18 @ 09:48 by MARYBEL BrownC) Left pulmonary artery PE (Acute) - Physical Exam General: Alert, Oriented x3, Cooperative, - - Morbid obese HEENT: Atraumatic, PERRLA, EOMI, Normocephalic Neck: Supple, No JVD, Negative Carotid Bruits Lungs: No rhonchi, No wheeze, No rales, Diminished, Short of Breath, - - Mild respiratory distress Cardiovascular: Regular rate, Regular Rhythm, Normal S1, Normal S2, No murmurs Abdomen: Bowel Sounds Present, Soft, Non Tender, Non-Distended Extremities: Capillary Refill Less than 3 Seconds, Edema Skin: No rashes, No breakdown Musculoskeletal: No Tenderness to Palpation of Joints or Extremities, Arthritic Changes Neurological: Cranial nerves II-XII grossly intact Psych/Mental Status: Normal Affect, Appropriate Vital Signs Temp Pulse Resp BP Pulse Ox 98.2 F 110 H 12 116/80 96 06/21/18 15:00 06/21/18 18:13 06/21/18 18:13 06/21/18 18:13 06/21/18 18:13 Oxygen Flow Rate (L/min) 2 Oxygen Delivery Method Nasal Cannula Weight: 285 lb 4.45 oz Body Mass Index (BMI) 42.1 Finger Stick Blood Glucose 202 Laboratory Tests Past 24 Hrs 06/21/18 06/21/18 06/21/18 15:10 15:10 15:10 WBC 10.6 RBC 6.26 H Hgb 11.9 L Hct 42.0 MCV 67.1 L MCH 19.0 L MCHC 28.3 L RDW 19.8 H RDW Differential 47.4 H Plt Count 238 MPV TNP Immature Gran % (Auto) 0.100 Neut % (Auto) 70.2 H Lymph % (Auto) 15.5 L [place] % (Auto) 7.1 Eos % (Auto) 6.2 H Baso % (Auto) 0.9 Absolute Neuts (auto) 7.4 Absolute Lymphs (auto) 1.64 Total Counted Not Reportable Platelet Estimate ADEQUATE Plt Morphology Comment LARGE Polychromasia RARE Hypochromasia 1+ Anisocytosis RARE Microcytosis 1+ Ovalocytes RARE PT 13.8 INR 1.1 APTT Sodium 137 Potassium 3.7 Chloride 102 Carbon Dioxide 27.0 Anion Gap 8 BUN 19 H Creatinine 1.64 H Estim Creat Clear Calc 44.91 Est GFR (MDRD) Af Amer 54 L Est GFR (MDRD) Non-Af 45 L BUN/Creatinine Ratio 11.6 Glucose 250 H Calcium 8.5 Troponin I 0.019 06/21/18 18:03 WBC RBC Hgb Hct MCV MCH MCHC RDW RDW Differential Plt Count MPV Immature Gran % (Auto) Neut % (Auto) Lymph % (Auto) [place] % (Auto) Eos % (Auto) Baso % (Auto) Absolute Neuts (auto) Absolute Lymphs (auto) Total Counted Platelet Estimate Plt Morphology Comment Polychromasia Hypochromasia Anisocytosis Microcytosis Ovalocytes PT INR APTT 28.6 Sodium Potassium Chloride Carbon Dioxide Anion Gap BUN Creatinine Estim Creat Clear Calc Est GFR (MDRD) Af Amer Est GFR (MDRD) Non-Af BUN/Creatinine Ratio Glucose Calcium Troponin I Assessment/Plan All Active Problems (Last Reviewed 06/19/18 @ 09:48 by Toma Morley, MARYBELC) Left pulmonary artery PE (Acute) History of coronary artery stent placement (Resolved 05/24/11) Influenza A (Resolved) Other exterminator termite (current) 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 (Resolved) PNA (pneumonia) (Resolved) RLL pneumonia (Resolved) Sepsis (Resolved) The patient is a 63 year old M morbidly obese with probable history of COPD, obstructive sleep apnea on CPAP and coronary artery disease with recent cath on last Friday with about 50% in-stent stenosis of proximal LAD with EF 60% with normal LV wall motion and systolic function came to ER with acute and chronic shortness of breath today. Patient has chronic shortness of breath and probable COPD and obstructive sleep apnea on CPAP. Patient follows Dr. Storey and Dr. solorio. Previously, he had PFT with Dr. Storey was told his PFT is good but he has about 15-20 pack years of smoking and chronic shortness of breath. Today, he suddenly felt intrascapular pain while worsening of shortness of breath and discharge. Interscapular back pain, lasted for about 10-15 minutes but still short of breath. In ED, EKG shows sinus tachycardia at 116 bpm with LAD. Vitals significant of tachycardia 114/min, pulse ox 93% on 4 L of oxygen. Patient had CT angiogram of chest which shows fairly discrete a small filling defect in distal left pulmonary artery, although reported as study likely inadequate for exclusion of PE. Patient creatinine is 1.64, BUN 19. Previous creatinine on 05/27/2018 was normal 1.21 with estimated creatinine clearance 64 mL/min. 1. Acute small distal left pulmonary artery PE: Patient was started on IV heparin drip. 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 As the kidney function improves, patient can be switched to oral apixaban. Lower extremity venous Doppler ordered. Patient denies first-degree family history of venous thromboembolism. 2. Acute kidney injury on CKD stage II; most rapidly contrast-induced nephropathy from recent cardiac cath and CT angiogram today: IV fluid normal saline. Monitor kidney function and electrolytes. 3. Pulmonary condition obstructive sleep apnea on CPAP and probable COPD: Bronchodilator as needed for shortness of breath. CPAP at night. Patient follows Dr. Storey. 4. Coronary artery disease with recent cardiac cath as mentioned above: Continue cardiac medications 5. Diabetes mellitus type 2: Patient glucose is 250 on BMP. Accu-Chek before meals and at bedtime and cover with NovoLog sliding scale. Hold metformin and other oral hypoglycemic agents. 6. Other chronic comorbidities include hypothyroidism, hypertension, BPH, history of renal cell cancer status post right partial nephrectomy and morbid obesity: Patient BMI is 42.1. Multiple comorbidities complicates the present care and expect difficult and delay recovery DVT prophylaxis: As mentioned above on IV heparin drip Laboratory Results 06/21/18 15:10: WBC 10.6, RBC 6.26 H, Hgb 11.9 L, Hct 42.0, MCV 67.1 L, MCH 19.0 L, MCHC 28.3 L, RDW 19.8 H, RDW Differential 47.4 H, Plt Count 238, MPV TNP, Immature Gran % (Auto) 0.100, Neut % (Auto) 70.2 H, Lymph % (Auto) 15.5 L, [place] % (Auto) 7.1, Eos % (Auto) 6.2 H, Baso % (Auto) 0.9, Absolute Neuts (auto) 7.4, Absolute Lymphs (auto) 1.64, Total Counted Not Reportable, Platelet Estimate ADEQUATE, Plt Morphology Comment LARGE, Polychromasia RARE, Hypochromasia 1+, Anisocytosis RARE, Microcytosis 1+, Ovalocytes RARE 06/21/18 15:10: PT 13.8, INR 1.1 06/21/18 15:10: Sodium 137, Potassium 3.7, Chloride 102, Carbon Dioxide 27.0, Anion Gap 8, BUN 19 H, Creatinine 1.64 H, Estim Creat Clear Calc 44.91, Est GFR (MDRD) Af Amer 54 L, Est GFR (MDRD) Non-Af 45 L, BUN/Creatinine Ratio 11.6, Glucose 250 H, Calcium 8.5, Troponin I 0.019 06/21/18 18:03: APTT 28.6 Clinical Impression(s) from Imaging Studies Chest X-Ray 06/21/18 15:28 IMPRESSION: No acute cardiopulmonary findings or changes. Chest CTA 06/21/18 15:35 IMPRESSION: Mild plaque in elongation of the thoracic aorta without aneurysm or dissection. Study is largely inadequate for exclusion of pulmonary embolus. However there is a fairly discrete small filling defect in the distal left pulmonary artery. Possible pulmonary embolus. Normal cardiac size without significant pericardial effusion. LAD coronary calcifications versus stent. Small nonspecific multifocal groundglass infiltrate in the anterior left upper lung. Chronic moderate elevation of the right diaphragm with chronic compressive changes at the right lung base. Code Visit Inpatient E&M: 21779 Init Hosp L3
[2018-06-21] MEDS: Heparin Injection (Vial) 5,000 UNIT/ML VIAL 10500 UNIT IV (19:12)
[2018-06-21] MEDS: HEPARIN/D5w 25,000 UNITS 25,000 UNITS/250 ML IV.SOLN. 17 UNITS IV (19:13)
--- NOTE | 2018-06-21 20:05 | ED.RN ---
AT 1940 PT REPORTS TO THIS RN, I HAVE A SLIGHT HEADACHE. IS THAT A SIDE EFFECT OF HEPARIN. PT EDUCATED ON USE AND SIDE EFFECTS OF HEPARIN. DR. KIMBALL INFORMED OF HEADACHE RIGHT AWAY. DR. KIMBALL AT BEDSIDE. PT HAS A NEUROLOGICAL EXAM NEGATIVE FOR ANY FINDINGS PER DR. KIMBALL. PT REPORTS, IT IS NOT THAT BAD, JUST ACHES A LITTLE. DR. KIMBALL EDUCATED PT TO ALERT STAFF IF ANY SUDDEN ONSET SEVERE PAIN, BLURRY VISION N/T. PT VERBALIZES UNDERSTANDING. PT CLEARED BY DR. KIMBALL FOR PT TO BE TRANSPORTED TO PCU. DR. KIMBALL REPORTS TO THIS RN THAT HE WILL LET THE HOSPITALIST DR. CRAWLEY KNOW OF PT TENORIO. THIS RN GAVE VERBAL REPORTS ON THIS CONCERN TO CHARGE NURSE LANDON ON PT ARRIVAL TO PCU.
[2018-06-21 20:37] LABS: BNP,B-Type NATRIURETIC PEPTIDE 5.8 pg/mL (0-100)
[2018-06-21] MEDS: 0.9% Normal Saline 1,000 ML 75 ML IV (20:54)
[2018-06-21] MEDS: Metoprolol(XL)Succ 25 MG Tablet PO (22:59)
[2018-06-21] MEDS: Tamsulosin HCl 0.4 MG Capsule PO (22:59)
[2018-06-21] MEDS: Insulin Lispro 100 UNIT/ML INSULN.PEN SQ (23:06)
[2018-06-21 23:25] LABS: Bedside Glucose 219 mg/dL (70-110)
[2018-06-22] VITALS (14 sets, daily range): BP systolic 108–151; BP diastolic 62–79; PULSE 85–118; RESP 16–20; TEMP 36.3–36.8; O2SAT 92–99
[2018-06-22 02:40] LABS: Partial Thromboplast Time 102.5 Seconds (24.1-36.2)
--- NOTE | 2018-06-22 05:55 | VDLE_ITS ---
Reason For Study: Pulmonary Embolism RIGHT LEFT CFV is compressible, spontaneous, phasic, GSV is normal. competent and demonstrates normal CFV is compressible, spontaneous, phasic, augmentation. competent, and demonstrates normal FV is compressible, spontaneous, phasic, augmentation. competent and demonstrates normal FV is compressible, spontaneous, phasic, augmentation. competent and demonstrates normal POP V is compressible, spontaneous, phasic, augmentation. competent and demonstrates normal POP V is compressible, spontaneous, phasic, augmentation. competent and demonstrates normal T/P Trunk is compressible. augmentation. PTV is compressible. T/P Trunk is compressible. RT PerV is compressible. PTV is compressible. GSV is normal above the knee. LT PerV is compressible. GSV is dilated and noncompressible below the knee. Procedure Exam performed portable in patient room. The exam was diagnostic. A preliminary report was called and/or faxed to PT's RN & PCU. Interpretation Summary Deep veins of the lower extremities are bilaterally patent and compressible segmentally. There is no evidence of deep vein thrombosis on either side. Valvular competence appears intact within the proximal deep venous systems bilaterally. The right greater saphenous vein is patent and compressible above the knee. Acute superficial thrombophlebitis is noted in the right greater saphenous vein below the knee. The left greater saphenous vein appears patent and compressible segmentally. Ordering Physician: Isiah Cannon Referring Physician: Sebastien Stahl Performed By: Celia Sheikh, CAMILLE, RVT
[2018-06-22 06:29] LABS: Anion Gap 10 (5-15); BUN 17 mg/dL (7-18); BUN/Creat Ratio 14.8 RATIO (10-20); Calcium,Total 8.3 mg/dL (8.5-10.1); Chloride 104 mmol/L (98-107); Creatinine, Serum 1.15 mg/dL (0.70-1.30); EST Glomerular Filtration Rate 68 mL/min (>60); Est Glom Filt Rate - Afr Amer 82 mL/min (>60); Estimated Creatinine Clearance 61.96 ml/min; Glucose 161 mg/dL (74-106); Potassium 3.8 mmol/L (3.5-5.1); Sodium Level 139 mmol/L (136-145)
[2018-06-22] MEDS: Albuterol 2.5 MG/3 ML VIAL.NEB. INHALATION (06:50)
[2018-06-22] MEDS: Budesonide Respules 0.5 MG/2 ML AMPUL.NEB. INHALATION (06:50)
[2018-06-22] MEDS: Levothyroxine 75 MCG Tablet 225 MCG PO (06:56)
[2018-06-22 07:05] LABS: Bedside Glucose 162 mg/dL (70-110)
[2018-06-22 07:06] LABS: Hematocrit 40.4 % (40-54); Hemoglobin 11.1 g/dl (13.0-16.5); Mean Corp Hgb Conc 27.5 g/gl (32-36); Mean Corpuscular Hgb 18.6 pg (27.0-32.0); Mean Corpuscular Volume 67.6 fL (80-94); Platelet Count 203 K/mm3 (150-450); RBC Distribution Width CV 19.8 % (11.6-14.6); RBC Distribution Width SD 47.9 fl (35.1-43.9); Red Blood Count 5.98 M/mm3 (4.6-6.2); White Blood Count 8.5 K/mm3 (4.4-11.0)
[2018-06-22 07:07] LABS: Scan Indicated on CBC? Y/N YES- FLAGS NOTED
[2018-06-22 07:25] LABS: Differential Comment SCAN
[2018-06-22 08:16] LABS: Hemoglobin A1c 6.9 % (4.2-6.3)
[2018-06-22] MEDS: Aspirin 81 MG TAB.CHEW PO (08:58)
[2018-06-22] MEDS: Insulin Lispro 100 UNIT/ML INSULN.PEN SQ ×4 (08:59→22:39)
[2018-06-22] MEDS: 0.9% Normal Saline 1,000 ML 75 ML IV (09:13)
[2018-06-22 10:16] LABS: Partial Thromboplast Time 58.4 Seconds (24.1-36.2)
[2018-06-22] MEDS: HEPARIN/D5w 25,000 UNITS 25,000 UNITS/250 ML IV.SOLN. 17 UNITS IV (11:06)
[2018-06-22 11:16] LABS: Bedside Glucose 208 mg/dL (70-110)
--- NOTE | 2018-06-22 11:38 | PN_ITS ---
Patient Problems: Active and Suspected Problems (Last Reviewed 06/19/18 @ 09:48 by BRYAN Brown) Left pulmonary artery PE (Acute) Subjective: Patient shortness of breath is much better. Sitting in the chair. No fever. Kidney function improved. Creatinine 1.15, BUN 17 and estimated creatinine clearance 61 mL/min Vitals/I&O's: Vital Signs Temp Pulse Resp BP Pulse Ox 97.5 F L 95 17 116/62 96 06/22/18 08:15 06/22/18 08:15 06/22/18 08:15 06/22/18 08:15 06/22/18 08:15 Oxygen Flow Rate (L/min) 3 Oxygen Delivery Method Nasal Cannula Weight: 280 lb 3.32 oz Body Mass Index (BMI) 41.5 Intake and Output for Last 24 Hours 06/20/18 06/21/18 06/22/18 23:59 23:59 23:59 Intake Total 135 / 135 2302.3 / 2302.3 Output Total 350 / 350 1275 / 1275 Balance -215 / -215 1027.3 / 1027.3 General: Alert, Oriented x3, Cooperative HEENT: Atraumatic, PERRLA, EOMI, Normocephalic Neck: Supple, No JVD, Negative Carotid Bruits Lungs: Diminished, Rhonchi, Short of Breath Cardiovascular: Regular rate, Normal S1, Normal S2, No murmurs Abdomen: Bowel Sounds Present, Soft, Non Tender Extremities: Capillary Refill Less than 3 Seconds, Edema Skin: No rashes, No breakdown Musculoskeletal: No Tenderness to Palpation of Joints or Extremities Neurological: Cranial nerves II-XII grossly intact Psych/Mental Status: Normal Affect, Appropriate Laboratory Results 06/21/18 20:30: Troponin I 0.016 06/21/18 22:57: POC Glucose 219 H 06/22/18 02:00: Troponin I < 0.015 06/22/18 02:00: APTT 102.5 H* 06/22/18 05:20: WBC 8.5, RBC 5.98, Hgb 11.1 L, Hct 40.4, MCV 67.6 L, MCH 18.6 L , MCHC 27.5 L, RDW 19.8 H, RDW Differential 47.9 H, Plt Count 203, Differential Comment SCAN 06/22/18 05:20: Sodium 139, Potassium 3.8, Chloride 104, Carbon Dioxide 25.0, Anion Gap 10, BUN 17, Creatinine 1.15, Estim Creat Clear Calc 61.96, Est GFR ( MDRD) Af Amer 82, Est GFR (MDRD) Non-Af 68, BUN/Creatinine Ratio 14.8, Glucose 161 H, Calcium 8.3 L 06/22/18 05:20: Hemoglobin A1c 6.9 H 06/22/18 06:52: POC Glucose 162 H 06/22/18 10:00: APTT 58.4 H 06/22/18 11:01: POC Glucose 208 H Current Medications Acetaminophen (Tylenol) 650 mg PO Q6H PRN PRN PRN Reason: Mild Pain (scale 0-3)/T>100.7 Albuterol Sulfate (Ventolin Aerosols) 2.5 mg INHALATION Q6HWA.RT [facility] Last Admin: 06/22/18 06:50 Dose: 2.5 mg Albuterol Sulfate (Ventolin Hfa (Sp)) 2 puff INHALATION Q4H PRN PRN Reason: shortness of breath or wheezing Albuterol/Ipratropium (Duoneb) 3 ml INHALATION Q4H PRN PRN PRN Reason: sob Apixaban (Eliquis) 10 mg PO BID [facility] Aspirin (Aspirin, Baby) 81 mg PO DAILY@0800 [facility] Last Admin: 06/22/18 08:58 Dose: 81 mg Budesonide (Pulmicort Aerosol) 0.5 mg INHALATION Q12H.RT [facility] Last Admin: 06/22/18 06:50 Dose: 0.5 mg Dextrose (D50w Syringe) 0 gm IV X1 PRN; Protocol PRN Reason: Hypoglycemia Docusate Sodium (Colace) 200 mg PO BID PRN PRN PRN Reason: Constipation Glucagon () 1 mg IM .X1 PRN PRN Reason: Hypoglycemia HCTZ/Valsartan (Diovan Hct 80-12.5 Mg Tablet) tablet PO DAILY [facility] Sodium Chloride () 1,000 mls @ 50 mls/hr IV .Q20H [facility] Stop: 06/22/18 21:29 Insulin Glargine (Lantus (Bkc)) 10 units SC QHS [facility] Last Admin: 06/21/18 23:03 Dose: Not Given Insulin Human Lispro (Humalog Kwikpen (Bkc)) 0 unit SQ ACHS [facility] PRN Reason: Protocol Last Admin: 06/22/18 11:09 Dose: 2 units Levothyroxine Sodium (Synthroid) 225 mcg PO DAILY@0600 [facility] Last Admin: 06/22/18 06:56 Dose: 225 mcg Metoprolol Succinate (Toprol Xl (Beta Su)) 25 mg PO DAILY@0 [facility] Last Admin: 06/21/18 22:59 Dose: 25 mg Ondansetron HCl (Zofran) 4 mg IV Q8H PRN PRN PRN Reason: Nausea Oxycodone HCl (Oxyir) 5 mg PO Q4H PRN PRN PRN Reason: Moderate Pain (pain scale 4-5) Polyethylene Glycol (Miralax) 17 gm PO DAILY [facility] Last Admin: 06/22/18 08:42 Dose: Not Given Sodium Chloride () 5 - 30 ml IV UD PRN PRN Reason: SALINE FLUSH Tamsulosin HCl (Flomax) 0.4 mg PO DAILY@2199 [facility] Last Admin: 06/21/18 22:59 Dose: 0.4 mg Medical Necessity - Tobacco Use Smoking Status: Former smoker Assessment/Plan All Active Problems (Last Reviewed 06/19/18 @ 09:48 by Toma Morley NP-C) Left pulmonary artery PE (Acute) History of coronary artery stent placement (Resolved 05/24/11) Influenza A (Resolved) Other supervisor intermediates (current) 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 (Resolved) PNA (pneumonia) (Resolved) RLL pneumonia (Resolved) Sepsis (Resolved) The patient is a 63 year old M morbidly obese with probable history of COPD, obstructive sleep apnea on CPAP and coronary artery disease with recent cath on last Friday with about 50% in-stent stenosis of proximal LAD with EF 60% with normal LV wall motion and systolic function came to ER with acute and chronic shortness of breath today. Patient has chronic shortness of breath and probable COPD and obstructive sleep apnea on CPAP. Patient follows Dr. Storey and Dr. solorio. Previously, he had PFT with Dr. Storey was told his PFT is good but he has about 15-20 pack years of smoking and chronic shortness of breath. Today, he suddenly felt intrascapular pain while worsening of shortness of breath and discharge. Interscapular back pain, lasted for about 10-15 minutes but still short of breath. In ED, EKG shows sinus tachycardia at 116 bpm with LAD. Vitals significant of tachycardia 114/min, pulse ox 93% on 4 L of oxygen. Patient had CT angiogram of chest which shows fairly discrete a small filling defect in distal left pulmonary artery, although reported as study likely inadequate for exclusion of PE. Patient creatinine is 1.64, BUN 19. Previous creatinine on 05/27/2018 was normal 1.21 with estimated creatinine clearance 64 mL/min. 1. Acute small distal left pulmonary artery PE: Patient was started on IV heparin drip. Patient is being admitted in PCU on surveillance monitor. Lower extremity venous Doppler ordered. Patient denies first-degree family history of venous thromboembolism. Initially started on IV heparin and his kidney function improved. Switch to oral apixaban. 2. Acute kidney injury on CKD stage II; most rapidly contrast-induced nephropathy from recent cardiac cath and CT angiogram today: Resolved. IV fluid decreased to 50 mL/min. Monitor kidney function and electrolytes. Lasix on hold. 3. Pulmonary condition obstructive sleep apnea on CPAP and probable COPD: Bronchodilator as needed for shortness of breath. CPAP at night. Patient follows Dr. Storey. 4. Coronary artery disease with recent cardiac cath as mentioned above: Continue cardiac medications 5. Diabetes mellitus type 2: Patient glucose is 250 on BMP. Accu-Chek before meals and at bedtime and cover with NovoLog sliding scale. Hold metformin and other oral hypoglycemic agents. 6. Hypertension: Blood pressure is elevated. 146/72, patient was put back on his antihypertensive medication valsartan 80/HCTZ 12.5 mg daily. Other chronic comorbidities include hypothyroidism, hypertension, BPH, history of renal cell cancer status post right partial nephrectomy and morbid obesity: Patient BMI is 42.1. Multiple comorbidities complicates the present care and expect difficult and delay recovery DVT prophylaxis: As mentioned above on IV heparin drip Laboratory Results 06/21/18 15:10: WBC 10.6, RBC 6.26 H, Hgb 11.9 L, Hct 42.0, MCV 67.1 L, MCH 19.0 L, MCHC 28.3 L, RDW 19.8 H, RDW Differential 47.4 H, Plt Count 238, MPV TNP , Immature Gran % (Auto) 0.100, Neut % (Auto) 70.2 H, Lymph % (Auto) 15.5 L, [place] % (Auto) 7.1, Eos % (Auto) 6.2 H, Baso % (Auto) 0.9, Absolute Neuts (auto) 7.4, Absolute Lymphs (auto) 1.64, Total Counted Not Reportable, Platelet Estimate ADEQUATE, Plt Morphology Comment LARGE, Polychromasia RARE, Hypochromasia 1+, Anisocytosis RARE, Microcytosis 1+, Ovalocytes RARE 06/21/18 15:10: PT 13.8, INR 1.1 06/21/18 15:10: Sodium 137, Potassium 3.7, Chloride 102, Carbon Dioxide 27.0, Anion Gap 8, BUN 19 H, Creatinine 1.64 H, Estim Creat Clear Calc 44.91, Est GFR (MDRD) Af Amer 54 L, Est GFR (MDRD) Non-Af 45 L, BUN/Creatinine Ratio 11.6, Glucose 250 H, Calcium 8.5, Troponin I 0.019 06/21/18 18:03: APTT 28.6 Laboratory Results 06/21/18 15:10: B-Natriuretic Peptide 5.8 06/21/18 18:03: APTT 28.6 06/21/18 20:30: Troponin I 0.016 06/21/18 22:57: POC Glucose 219 H 06/22/18 02:00: Troponin I < 0.015 06/22/18 02:00: APTT 102.5 H* 06/22/18 05:20: WBC 8.5, RBC 5.98, Hgb 11.1 L, Hct 40.4, MCV 67.6 L, MCH 18.6 L , MCHC 27.5 L, RDW 19.8 H, RDW Differential 47.9 H, Plt Count 203, Differential Comment SCAN 06/22/18 05:20: Sodium 139, Potassium 3.8, Chloride 104, Carbon Dioxide 25.0, Anion Gap 10, BUN 17, Creatinine 1.15, Estim Creat Clear Calc 61.96, Est GFR ( MDRD) Af Amer 82, Est GFR (MDRD) Non-Af 68, BUN/Creatinine Ratio 14.8, Glucose 161 H, Calcium 8.3 L 06/22/18 05:20: Hemoglobin A1c 6.9 H 06/22/18 05:20: B-Natriuretic Peptide 11.7 06/22/18 06:52: POC Glucose 162 H 06/22/18 10:00: APTT 58.4 H 06/22/18 11:01: POC Glucose 208 H 06/22/18 16:13: POC Glucose 173 H Clinical Impression(s) from Imaging Studies Chest X-Ray 06/21/18 15:28 IMPRESSION: No acute cardiopulmonary findings or changes. Chest CTA 06/21/18 15:35 IMPRESSION: Mild plaque in elongation of the thoracic aorta without aneurysm or dissection. Study is largely inadequate for exclusion of pulmonary embolus. However there is a fairly discrete small filling defect in the distal left pulmonary artery. Possible pulmonary embolus. Normal cardiac size without significant pericardial effusion. LAD coronary calcifications versus stent. Small nonspecific multifocal groundglass infiltrate in the anterior left upper lung. Chronic moderate elevation of the right diaphragm with chronic compressive changes at the right lung base. Code Visit Inpatient E&M: 99182 [facility] Hosp L3
--- NOTE | 2018-06-22 11:42 | CASEMGMT ---
Face to Face with patient for initial transition planning/care coordination assessment. RN DIDIER introduced self and role at [facility], pt voices understanding and consents to assessment at this time. Pt is sitting up in chair with use of accessory muscles with breathing but is able to speak in full sentences. Pt is A/O x4 at this time and answers all questions appropriately at this time. Part way through assessment, pt informed this RN CM that all the answers to these questions can be found in his medical record and unless this RN CM has anything relevant to ask then he is done at that time. Josee gonzalez at this time, voices understanding. This RN CM unable to complete assessment at this time. CM to follow for any further discharge planning/needs. PLAN: [place] VELÁSQUEZ
[2018-06-22 12:27] LABS: BNP,B-Type NATRIURETIC PEPTIDE 11.7 pg/mL (0-100)
[2018-06-22] MEDS: HYDROCHLOROTHIAZIDE 12.5 MG CAPSULE PO (13:01)
[2018-06-22] MEDS: Ipratropium/Albuterol Sulfate 3 ML AMPUL.NEB INHALATION (13:25)
[2018-06-22 16:21] LABS: Bedside Glucose 173 mg/dL (70-110)
--- NOTE | 2018-06-22 17:13 | CASEMGMT ---
SW met with patient and his . Introduced self as well as role at [facility]. Patient had indicated during the nursing admission questions that he had his advance directives on file. SW told them that his advance directives are not on file. His said she saw them scan them in when she brought them in. His said she can bring in a copy of them. Abby HADLEY MSW
[2018-06-22] MEDS: APIXABAN 5 MG TABLET 10 MG PO (17:27)
[2018-06-22] MEDS: Tamsulosin HCl 0.4 MG Capsule PO (22:38)
[2018-06-22] MEDS: Metoprolol(XL)Succ 25 MG Tablet PO (22:39)
[2018-06-22 22:46] LABS: Bedside Glucose 155 mg/dL (70-110)
[2018-06-23] MEDS: Levothyroxine 75 MCG Tablet 225 MCG PO (06:21)
[2018-06-23 06:23] LABS: Anion Gap 7 (5-15); BUN 12 mg/dL (7-18); BUN/Creat Ratio 10.2 RATIO (10-20); Calcium,Total 8.6 mg/dL (8.5-10.1); Chloride 104 mmol/L (98-107); Creatinine, Serum 1.18 mg/dL (0.70-1.30); EST Glomerular Filtration Rate 66 mL/min (>60); Est Glom Filt Rate - Afr Amer 80 mL/min (>60); Estimated Creatinine Clearance 60.38 ml/min; Glucose 156 mg/dL (74-106); Sodium Level 138 mmol/L (136-145)
[2018-06-23 06:55] LABS: Bedside Glucose 160 mg/dL (70-110)
[2018-06-23 07:50] VITALS: PULSE 82
[2018-06-23 07:59] VITALS: O2SAT 92
[2018-06-23 08:13] VITALS: PULSE 90
[2018-06-23 08:20] VITALS: BP 128/70; PULSE 78; RESP 18; TEMP 36.4; O2SAT 95
[2018-06-23] MEDS: HYDROCHLOROTHIAZIDE 12.5 MG CAPSULE PO (08:27)
[2018-06-23] MEDS: Aspirin 81 MG TAB.CHEW PO (08:27)
[2018-06-23] MEDS: Insulin Lispro 100 UNIT/ML INSULN.PEN SQ (08:27)
[2018-06-23] MEDS: APIXABAN 5 MG TABLET 10 MG PO (08:28)
--- NOTE | 2018-06-23 10:34 | DCINST_ITS ---
- Discharge Diagnoses Current Active Problems: Current Active and Chronic Problems (Last Reviewed 06/19/18 @ 09:48 by BRYAN Brown) Left pulmonary artery PE (Acute) You will use the following diet at home:: Calorie/Carbohydrate Controlled (specify 1200, 1400, etc) - 1800 ADA diet Discharge Activity: May not drive while taking narcotic pain medications. Call your doctor if you observe: Fever of 101 or Higher, Inability to urinate, Shortness of breath, Dizziness, Swelling in the ankles Allergies/Adverse Reactions: Allergies theophylline Allergy (Verified 06/16/18 09:39) Unknown Medications to take at Discharge Aspirin [Aspirin, Baby] 81 mg PO DAILY@0800 03/17/16 Tamsulosin HCl [Flomax] 0.4 mg PO DAILY 03/17/16 budesonide-formoterol HFA 160 mcg-4.5 mcg/actuation aerosol inhaler 2 puff INHALATION Q12H 01/01/18 Metoprolol Succinate [Toprol Xl] 25 mg PO DAILY 01/03/18 valsartan 80 mg-hydrochlorothiazide 12.5 mg tablet 1 tab PO DAILY 01/06/18 Levothyroxine Sodium [Synthroid] 225 mcg PO DAILY 03/27/18 Testosterone [Androgel] 2 pump TD DAILY 03/27/18 albuterol sulfate HFA 90 mcg/actuation aerosol inhaler 2 puff INHALATION Q4H PRN #18 g 06/18/18 Apixaban [Eliquis] 10 mg PO BID #60 tab 06/22/18 Docusate Sodium [Colace] 200 mg PO BID PRN PRN capsule 06/23/18 Furosemide 40 mg PO DAILY PRN PRN #1 06/23/18 Metformin HCl 1,000 mg PO BID #0 06/23/18 The following prescriptions were given: Apixaban [Eliquis] 10 mg PO BID #60 tab Orders to be completed after discharge: Basic Metabolic Profile (BMP) Time Frame: 06/26/18, Location: Laboratory Primary Care Physician: Sebastien Stahl MD [Primary Care Provider] - Please follow up with your Primary Care Physician in: in 1-2 weeks and F/U BMP on next Friday Test Results: Test results from this visit will be discussed in further detail at your follow- up appointment, if applicable.
--- NOTE | 2018-06-23 10:44 | CASEMGMT ---
Per Roxane in [facility] retail pharmacy, pt has no co-pay for Eliquis at this time. Andrae SINGLETON CM
--- NOTE | 2018-06-23 14:28 | PCM.DC.SUM ---
Discharge Date and Diagnosis Date of Admission: 06/21/18 Date of Discharge: 06/23/18 - Primary Discharge Diagnosis 1. Acute small distal left pulmonary artery PE: Patient was started on IV heparin drip. 2. Acute kidney injury on CKD stage II; most rapidly contrast-induced nephropathy from recent cardiac cath and CT angiogram: - Secondary Discharge Diagnosis Chronic Problems (Last Reviewed 06/19/18 @ 09:48 by Toma Morley, MYNOR-C) CLARK (dyspnea on exertion) (Chronic) Atherosclerotic heart disease of [place] coronary artery without angina pectoris (Chronic) PCI to proximal LAD with overlapping 3.0 x 28 mm and 3.5 x 12 mm Vision bare metal stents w/ POBA ostial D1 05/24/2011 Palpitations (Chronic) History of renal cell cancer (Chronic) Benign prostatic hypertrophy (Chronic) Type II diabetes mellitus (Chronic) Hyperlipidemia (Chronic) Obesity (Chronic) COPD (chronic obstructive pulmonary disease) (Chronic) Obstructive sleep apnea (Chronic) CPAP 13 cm of water Hypothyroidism (Chronic) Status post right partial nephrectomy (Chronic) Hypertension (Chronic) Hospital Course and Treatment Operations: None Summary of Care Provided: [] The patient is a 63 year old M morbidly obese with probable history of COPD, obstructive sleep apnea on CPAP and coronary artery disease with recent cath on last Friday with about 50% in-stent stenosis of proximal LAD with EF 60% with normal LV wall motion and systolic function came to ER with acute and chronic shortness of breath today. Patient has chronic shortness of breath and probable COPD and obstructive sleep apnea on CPAP. Patient follows Dr. Storey and Dr. solorio. Previously, he had PFT with Dr. Storey was told his PFT is good but he has about 15-20 pack years of smoking and chronic shortness of breath. Today, he suddenly felt intrascapular pain while worsening of shortness of breath and discharge. Interscapular back pain, lasted for about 10-15 minutes but still short of breath. In ED, EKG shows sinus tachycardia at 116 bpm with LAD. Vitals significant of tachycardia 114/min, pulse ox 93% on 4 L of oxygen. Patient had CT angiogram of chest which shows fairly discrete a small filling defect in distal left pulmonary artery, although reported as study likely inadequate for exclusion of PE. Patient creatinine is 1.64, BUN 19. Previous creatinine on 05/27/2018 was normal 1.21 with estimated creatinine clearance 64 mL/min. 1. Acute small distal left pulmonary artery PE: Patient was started on IV heparin drip. Patient was being admitted in PCU on lunchroom monitor. Lower extremity venous Doppler was done but I do not see report on computer. I am verbally informed by nurse that she was called earlier that is small clot in left lower extremity below knee level. Details are not available. Patient denies first-degree family history of venous thromboembolism. Initially started on IV heparin and his kidney function improved. Switch to oral apixaban. 2. Acute kidney injury on CKD stage II; most rapidly contrast-induced nephropathy from recent cardiac cath and CT angiogram today: Resolved. IV fluid decreased to 50 mL/min. Monitor kidney function and electrolytes. IV fluid was discontinued. Patient was advised to hold Lasix for 7 days. Valsartan/HCTZ was resumed and his kidney function tolerated well. 3. Pulmonary condition obstructive sleep apnea on CPAP and probable COPD: Bronchodilator as needed for shortness of breath. CPAP at night. Patient follows Dr. Storey. 4. Coronary artery disease with recent cardiac cath as mentioned above: Continue cardiac medications 5. Diabetes mellitus type 2: Patient glucose is 250 on BMP. Accu-Chek before meals and at bedtime and cover with NovoLog sliding scale. Hold metformin and other oral hypoglycemic agents. 6. Hypertension: Blood pressure is elevated. 146/72, patient was put back on his antihypertensive medication valsartan 80/HCTZ 12.5 mg daily. Other chronic comorbidities include hypothyroidism, hypertension, BPH, history of renal cell cancer status post right partial nephrectomy and morbid obesity: Patient BMI is 42.1. Multiple comorbidities complicates the present care and expect difficult and delay recovery DVT prophylaxis: On apixaban Discharge medication reconciliation done. Follow-up instructions discussed with the patient. Patient was advised to hold metformin and Lasix for 7 days. Repeat BMP on next Friday and follow with PCP. Total time spent, exact 35 minutes on discharge meds reconciliation, examination, review of imaging and blood test and discussion with the patient on follow-up instructions. Discharge Activity: May not drive while taking narcotic pain medications. Call your doctor if you observe: Fever of 101 or Higher, Inability to urinate, Shortness of breath, Dizziness, Swelling in the ankles Home Medications: Medications to take at Discharge Aspirin [Aspirin, Baby] 81 mg PO DAILY@0800 03/17/16 Tamsulosin HCl [Flomax] 0.4 mg PO DAILY 03/17/16 budesonide-formoterol HFA 160 mcg-4.5 mcg/actuation aerosol inhaler 2 puff INHALATION Q12H 01/01/18 Metoprolol Succinate [Toprol Xl] 25 mg PO DAILY 01/03/18 valsartan 80 mg-hydrochlorothiazide 12.5 mg tablet 1 tab PO DAILY 01/06/18 Levothyroxine Sodium [Synthroid] 225 mcg PO DAILY 03/27/18 Testosterone [Androgel] 2 pump TD DAILY 03/27/18 albuterol sulfate HFA 90 mcg/actuation aerosol inhaler 2 puff INHALATION Q4H PRN #18 g 06/18/18 Apixaban [Eliquis] 10 mg PO BID #60 tab 06/22/18 Docusate Sodium [Colace] 200 mg PO BID PRN PRN capsule 06/23/18 Furosemide 40 mg PO DAILY PRN PRN #1 06/23/18 Metformin HCl 1,000 mg PO BID #0 06/23/18 Following Prescrptions Were Given to Patient: Apixaban [Eliquis] 10 mg PO BID #60 tab Other Amb Orders: Basic Metabolic Profile (BMP) Time Frame: 06/26/18, Location: Laboratory Primary Care Physician: Sebastien Stahl MD [Primary Care Provider] - Please follow up with your Primary Care Physician in: in 1-2 weeks and F/U BMP on next Friday Medical Necessity - Tobacco Use Smoking Status: Former smoker Meaningful Use Info Meaningful Use Diagnoses (Choose all that apply): None applicable Code Visit Inpatient E&M: 54653 Disch Hosp
--- NOTE | 2018-06-24 15:13 | CASEMGMT ---
MANI VELÁSQUEZ Discharge Follow-Up Phone Call: RIAZ: 12 STRATA: 4 Discharge Date 06/23/18 Phone call to Mr Cornell who states he is @ work. He stated he does not work tomorrow and asked if someone could call him to talk to him tomorrow instead. Adore CALDWELL RN CM
--- NOTE | 2018-06-25 15:51 | CASEMGMT ---
MANI VELÁSQUEZ Discharge Follow-Up Phone Call: RIAZ: Jl STRATA: 4 Discharge Date: 06/23/18 Adm Dx: Left Acute PE MANI VELÁSQUEZ spoke w/Mr Sarabia re: how he has been feeling since he left the hospital and he reports he has been doing well. He stated his Eliquis was delivered to his room before discharge and that he is taking it as instructed. He denies having any questions about the discharge instructions. He reports he does have an appt w/his PCP in July, who he has been in contact with and informed him he does not need to come in earlier than that unless he would need to. Mr Sarabia states he is planning on having his lab drawn tomorrow as instructed. He states he did have concerns/re: the d/c instructions for Metformin and the dosage. He states he was taking Metformin 1,000 mg in AM and 1,500 mg in PM and that his diabetes was being managed well, but that per discharge instructions it stated he was to take Metformin 1,000 mg BID. Mr Sarabia states he called his PCP re: this and they instructed him to take the Metformin as he was previously taking prior to coming to the hospital. Mr Sarabia inquired if there is any way this can be changed in his medical records so that his records in [facility] reflects what he is currently on. He was informed that MANI VELÁSQUEZ would look into this and thanked him for his feedback. Mr Sarabia states he does not have any other questions or concerns. MANI VELÁSQUEZ thanked him for choosing [facility]. Adore CALDWELL RN, CM
== END 2018-06-23 11:37 | disposition home or self-care (01) | DRG 176 ==
LOC: ED 18:13 → PCU 19:26
PROVIDERS: Admitting Provider Internal Medicine; Emergency Provider Emergency Medicine; Family Provider Family Medicine; PCP Family Medicine; Visit Provider Internal Medicine
DX: I26.99 Other pulmonary embolism without acute cor pulmonale (principal); Z68.41 Body mass index [BMI] 40.0-44.9, adult; N17.9 Acute kidney failure, unspecified; J44.0 Chronic obstructive pulmonary disease with (acute) lower respiratory infection; I25.10 Atherosclerotic heart disease of native coronary artery without angina pectoris; E03.9 Hypothyroidism, unspecified; Z90.5 Acquired absence of kidney; E66.01 Morbid (severe) obesity due to excess calories; Z85.528 Personal history of 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neoplasm of kidney; N40.0 Benign prostatic hyperplasia without lower urinary tract symptoms; E11.22 Type 2 diabetes mellitus with diabetic chronic kidney disease; N18.2 Chronic kidney disease, stage 2 (mild); E78.5 Hyperlipidemia, unspecified; G47.33 Obstructive sleep apnea (adult) (pediatric); I12.9 Hypertensive chronic kidney disease with stage 1 through stage 4 chronic kidney disease, or unspecified chronic kidney disease; Z87.891 Personal history of nicotine dependence; Z95.5 Presence of coronary angioplasty implant and graft; N14.2 Nephropathy induced by unspecified drug, medicament or biological substance; T50.8X5A Adverse effect of diagnostic agents, initial encounter
CPT/HCPCS: 36415; 71045; 71275; 74175; 80048; 82962; 83036; 83880; 84484; 85025; 85027; 85610; 85730; 93005; 93970; 94640; 99284; J7030; Q9967; A4216

== ENCOUNTER → 2018-06-26 10:29 | Outpatient (CLI) | payer OTHER, MEDICARE, SELFPAY ==
[2018-06-26 11:29] LABS: Anion Gap 8 (5-15); BUN 13 mg/dL (7-18); BUN/Creat Ratio 10.9 RATIO (10-20); Chloride 106 mmol/L (98-107); Creatinine, Serum 1.19 mg/dL (0.70-1.30); EST Glomerular Filtration Rate 65 mL/min (>60); Est Glom Filt Rate - Afr Amer 79 mL/min (>60); Glucose 156 mg/dL (74-106); Sodium Level 141 mmol/L (136-145)
== END ==
PROVIDERS: Family Provider Family Medicine; PCP Family Medicine; Referring Provider Internal Medicine; Visit Provider Internal Medicine
DX: N17.9 Acute kidney failure, unspecified (principal)
CPT/HCPCS: 36415; 80048

== ENCOUNTER 2018-07-03 10:56 | Outpatient (RCR) | payer OTHER, SELFPAY ==
[2018-07-03 11:47] LABS: Hematocrit 42.9 % (40-54); Mean Corpuscular Hgb 18.9 pg (27.0-32.0); Mean Corpuscular Volume 67.5 fL (80-94); Platelet Count 191 K/mm3 (150-450); RBC Distribution Width CV 19.6 % (11.6-14.6); RBC Distribution Width SD 46.7 fl (35.1-43.9); Red Blood Count 6.36 M/mm3 (4.6-6.2); White Blood Count 6.3 K/mm3 (4.4-11.0)
[2018-07-03 11:49] LABS: Scan Indicated on CBC? Y/N YES- FLAGS NOTED
[2018-07-03 12:38] LABS: Ferritin 8 ng/mL (26-388)
[2018-07-06 12:08] LABS: Clam <0.10 kU/L (Class 0); Codfish <0.10 kU/L (Class 0); Corn <0.10 kU/L (Class 0); Egg, White <0.10 kU/L (Class 0); Egg, Whole <0.10 kU/L (Class 0); Milk (Cow) 0.11 kU/L (Class 0/I); Peanut <0.10 kU/L (Class 0); Potato, White <0.10 kU/L (Class 0); SCALLOP <0.10 kU/L (Class 0); SESAME SEED <0.10 kU/L (Class 0); Salmon <0.10 kU/L (Class 0); Shrimp <0.10 kU/L (Class 0); Soybean <0.10 kU/L (Class 0); Tomato <0.10 kU/L (Class 0); Tuna <0.10 kU/L (Class 0); Walnut, (Food) <0.10 kU/L (Class 0); Wheat <0.10 kU/L (Class 0)
[2018-07-06 13:17] LABS: Onion <0.10 kU/L (Class 0)
[2018-07-08 03:07] LABS: Alternaria tenuis <0.10 kU/L (Class 0); Ash, White <0.10 kU/L (Class 0); Aspergillus fumigatus <0.10 kU/L (Class 0); Bermuda Grass <0.10 kU/L (Class 0); Birch <0.10 kU/L (Class 0); Black Walnut <0.10 kU/L (Class 0); Cat Hair / Dander,Stand <0.10 kU/L (Class 0); Cedar, Mountain <0.10 kU/L (Class 0); Cladosporium herbarum <0.10 kU/L (Class 0); Cockroach, American <0.10 kU/L (Class 0); Cottonwood <0.10 kU/L (Class 0); D farinae Mite <0.10 kU/L (Class 0); D pteronyssinus <0.10 kU/L (Class 0); Dog Epithelia <0.10 kU/L (Class 0); Elm, American White <0.10 kU/L (Class 0); Immunoglobulin E < 2 IU/mL (0-100); Maple/Box Elder <0.10 kU/L (Class 0); Mulberry, White <0.10 kU/L (Class 0); Oak, White <0.10 kU/L (Class 0); Pecan <0.10 kU/L (Class 0); Penicillium Notatum <0.10 kU/L (Class 0); Pigweed, Rough <0.10 kU/L (Class 0); Ragweed, Short/Common <0.10 kU/L (Class 0); Russian Thistle <0.10 kU/L (Class 0); Sheep Sorrel <0.10 kU/L (Class 0); Sycamore, American <0.10 kU/L (Class 0); Timothy Grass <0.10 kU/L (Class 0)
[2018-07-08 07:38] LABS: Mouse Urine <0.10 kU/L (Class 0)
[2018-07-08 07:39] LABS: Immunoglobulin E < 2 IU/mL (0-100)
== END 2018-07-03 12:00 | disposition home or self-care (01) ==
LOC: LAB 10:56
PROVIDERS: Family Provider Family Medicine; PCP Family Medicine; Referring Provider Internal Medicine Hematology & Oncology; Visit Provider Internal Medicine Hematology & Oncology
DX: D75.1 Secondary polycythemia (principal); E03.9 Hypothyroidism, unspecified; T78.40XA Allergy, unspecified, initial encounter
CPT/HCPCS: 36415; 82728; 82785; 85027; 86003

== ENCOUNTER 2018-08-03 14:23 | Outpatient (RCR) | payer OTHER, SELFPAY ==
[2018-08-03 14:49] LABS: Hematocrit 47.1 % (40-54); Mean Corp Hgb Conc 27.6 g/gl (32-36); Mean Corpuscular Hgb 19.2 pg (27.0-32.0); Mean Corpuscular Volume 69.6 fL (80-94); Platelet Count 248 K/mm3 (150-450); RBC Distribution Width CV 20.6 % (11.6-14.6); RBC Distribution Width SD 49.2 fl (35.1-43.9); Red Blood Count 6.77 M/mm3 (4.6-6.2); White Blood Count 10.5 K/mm3 (4.4-11.0)
[2018-08-03 14:50] LABS: Scan Indicated on CBC? Y/N YES- FLAGS NOTED
[2018-08-03 14:57] LABS: Ferritin 10 ng/mL (26-388)
== END 2018-08-28 09:57 | disposition home or self-care (01) ==
LOC: LAB 14:23
PROVIDERS: Family Provider Family Medicine; PCP Family Medicine; Visit Provider Internal Medicine Hematology & Oncology
DX: D75.1 Secondary polycythemia (principal)
CPT/HCPCS: 36415; 82728; 85027

== ENCOUNTER 2018-08-31 10:33 | Outpatient (RCR) | payer OTHER, SELFPAY ==
[2018-06-21 20:25] VITALS: BMI 41.5
[2018-08-31 11:14] LABS: Ferritin 9 ng/mL (26-388)
[2018-08-31 11:19] LABS: Hematocrit 45.3 % (40-54); Hemoglobin 12.5 g/dl (13.0-16.5); Mean Corp Hgb Conc 27.6 g/gl (32-36); Mean Corpuscular Hgb 19.7 pg (27.0-32.0); Mean Corpuscular Volume 71.6 fL (80-94); Platelet Count 163 K/mm3 (150-450); RBC Distribution Width CV 20.6 % (11.6-14.6); Red Blood Count 6.33 M/mm3 (4.6-6.2); White Blood Count 6.6 K/mm3 (4.4-11.0)
[2018-08-31 11:22] LABS: Scan Indicated on CBC? Y/N YES- FLAGS NOTED
--- OUTSIDE RECORDS SUMMARY | 2018-10-24 15:47 | XMS RPT_ITS ---
:1955 Author Organization OHIP Support Name Relationship Address Phone ALANA SARABIA Unavailable [address] + [place] [address] WC Unavailable [address] + [place] [address] ADRIAN ALANA Unavailable [address] + [place] [address] [facility] Unavailable [address] + [place] [address] ADRIAN, ALANA Unavailable [address] + [place] [address] WC Unavailable [address] + [place] [address] ADRIAN, ALANA Unavailable [address] + [place] [address] [facility] Unavailable [address] + [place] [address] ADRIAN, ALANA Unavailable [address] + [place] [address] [facility] Unavailable [address] + [place] [address] SARABIA, ALANA Unavailable [address] + [place] [address] [facility] Unavailable [address] + [place] [address] ADRIAN, ALANA Unavailable [address] + [place] [address] [facility] Unavailable [address] + [place] [address] ADRIAN, ALANA Unavailable [address] + [place] [address] WC Unavailable [address] + [place] [address] SARABIA, ALANA Unavailable [address] + [place] [address] [facility] Unavailable [address] + [place] [address] SARABIA, ALANA Unavailable [address] + [place] [address] [facility] Unavailable [address] + [place] [address] SARABIA, ALANA Unavailable [address] + [place] [address] [facility] Unavailable [address] + [place] [address] SARABIA, ALANA Unavailable [address] + [place] [address] [facility] Unavailable [address] + [place] [address] SARABIA, ALANA Unavailable [address] + [place] [address] [facility] Unavailable [address] + [place] [address] SARABIA, ALANA Unavailable [address] + [place] [address] [facility] Unavailable [address] + [place] [address] SARABIA, ALANA Unavailable [address] + [place] [address] [facility] Unavailable [address] + [place] [address] SARABIA, ALANA Unavailable [address] + [place] [address] [facility] Unavailable [address] + [place] [address] SARABIA, ALANA Unavailable [address] + [place] [address] [facility] Unavailable [address] + [place] [address] SARABIA, ALANA Unavailable [address] + [place] [address] [facility] Unavailable [address] + [place] [address] SARABIA, ALANA Unavailable [address] + [place] [address] [facility] Unavailable [address] + [place] [address] SARABIA, ALANA Unavailable [address] + [place] [address] [facility] Unavailable [address] + [place] [address] SARABIA, ALANA Unavailable [address] + [place] [address] [facility] Unavailable [address] + [place] [address] SARABIA, ALANA Unavailable [address] + [place] [address] [facility] Unavailable [address] + [place] [address] SARABIA, ALANA Unavailable [address] + [place] [address] [facility] Unavailable [address] + [place] [address] SARABIA, ALANA Unavailable [address] + [place] [address] [facility] Unavailable [address] + [place] [address] SARABIA, ALANA Unavailable [address] + [place] [address] [facility] Unavailable [address] + [place] [address] SARABIA, ALANA Unavailable [address] + [place] [address] [facility] Unavailable [address] + [place] [address] SARABIA, ALANA Unavailable [address] + [place] [address] [facility] Unavailable [address] + [place] [address] SARABIA, ALANA Unavailable [address] + [place] [address] [facility] Unavailable [address] + [place] [address] SARABIA, ALANA Unavailable [address] + [place] [address] [facility] Unavailable [address] + [place] [address] SARABIA, ALANA Unavailable [address] + [place] [address] [facility] Unavailable [address] + [place] [address] SARABIA, ALANA Unavailable [address] + [place] [address] [facility] Unavailable [address] + [place] [address] SARABIA, ALANA Unavailable [address] + [place] [address] [facility] Unavailable [address] + [place] [address] SARABIA, ALANA Unavailable [address] + [place] [address] [facility] Unavailable [address] + [place] [address] SARABIA, ALANA Unavailable [address] + [place] [address] R Unavailable Unavailable Unavailable [facility] Unavailable [address] + [place] [address] SARABIA, ALANA Unavailable [address] + [place] [address] R Unavailable Unavailable Unavailable R Unavailable Unavailable Unavailable Care Team Providers Name Role Phone JULIAN, MOSES Cummings Referring Unavailable MASCI, MOSES A Referring Unavailable MASCI, MOSES Cummings Referring Unavailable MASCI, MOSES A Referring Unavailable MASCI, MOSES A Referring Unavailable MASCI, MOSES A Referring Unavailable MASCI, MOSES A Referring Unavailable MASCI, MOSES Cummings Referring Unavailable MASCI, MOSES Cummings Referring Unavailable MASCI, MOSES Cummings Attending Unavailable MASCI, MOSES Cummings Referring Unavailable MASCI, MOSES Cummings Referring Unavailable MASCI, MOSES Cummings Referring Unavailable MASCI, MOSES Cummings Referring Unavailable MASCI, MOSES Cummings Referring Unavailable MASCI, MOSES Cummings Referring Unavailable MASCI, MOSES Cummings Referring Unavailable MASCI, MOSES A Referring Unavailable MASCI, MOSES A Referring Unavailable MASCI, MOSES Cummings Attending Unavailable MASCI, MOSES Cummings Referring Unavailable MASCI, MOSES Cummings Referring Unavailable Basali, Bakari Attending Unavailable Basali, Bakari Referring Unavailable Maribeth, [place] Unavailable Masci, Moses Attending Unavailable Maribeth, [place] Unavailable Masci, Moses Referring Unavailable NataliyaGeovanni Consulting Unavailable Rafael Solorio Attending Unavailable Maribeth, Sebastien Referring Unavailable Maribeth, [place] [facility] Unavailable [facility], [place] [facility] Unavailable Sementi, Juli Admitting Unavailable Sementi, Juli Attending Unavailable Sementi, Juli Admitting Unavailable Maribeth, [place] [facility] Unavailable Sementi, Juli Consulting Unavailable Sementi, Juli Attending Unavailable Sementi, Juli Admitting Unavailable [facility], [place] [facility] Unavailable Sementi, Juli Consulting Unavailable Sementi, Juli Attending Unavailable Toma Morley Attending Unavailable Maribeth, Sebastien Referring Unavailable Masci, Moses Attending Unavailable Masci, Moses Referring Unavailable Maribeth, [place] [facility] Unavailable [facility], [place] Unavailable AhJudd wilks Attending Unavailable Maribeth, [place] [facility] Unavailable Gbaruk, Kombian Admitting Unavailable Ashelfah, Ghasem Attending Unavailable [place]baruk, Kombian Admitting Unavailable [place]bar[place], Kombian Attending Unavailable [facility], [facility] Unavailable [place], Kombian Consulting Unavailable [place], Kombian Admitting Unavailable Ashelfah, Ghasem Attending Unavailable [facility], [facility] Care Unavailable Ashelfah, Ghasem Consulting Unavailable Rafael Solorio Attending Unavailable Masci, Moses Attending Unavailable Masci, Moses Referring Unavailable Maribeth, [place] [facility] Unavailable Toma Morley Attending Unavailable Maribeth, Sebastien Referring Unavailable Isac Gould.Ajay. Attending Unavailable Isac Gould.O. Referring Unavailable [facility], [facility] Unavailable ASSESSMENT, HEALTH RISK Attending Unavailable [facility], [place] Unavailable Isac Gould.O. Attending Unavailable Mino Ramos D.O. Referring Unavailable [facility], [place] [facility] Unavailable Morales Storey Attending Unavailable Mino Ramos D.O. Referring Unavailable Masci, Moses Attending Unavailable Masci, Moses Referring Unavailable Maribeth, [place] [facility] Unavailable Rafael Solorio Attending Unavailable Maribeth, Sebastien Referring Unavailable [facility], [place] [facility] Unavailable Morales Storey Attending Unavailable Mino Ramos D.O. Referring Unavailable Brian, Rafael Attending Unavailable Brian, Rafael Referring Unavailable Maribeth, [facility] Unavailable Toma Morley Attending Unavailable Maribeth, Sebastien Referring Unavailable Maribeth, Sebastien [facility] Unavailable Davis, Isiah Admitting Unavailable Davis, Isiah Attending Unavailable Davis, Isiah Attending Unavailable Maribeth, Sebast[facility] Primary [facility] Unavailable Davis, Isiah Admitting Unavailable Davis, Isiah Attending Unavailable Maribeth, Sebast[facility] Primary [facility] Unavailable Davis, Isiah Consulting Unavailable Davis, Isiah Admitting Unavailable Davis, Isiah Attending Unavailable Maribeth, Sebast[facility] Primary [facility] Unavailable Davis, Isiah Consulting Unavailable Davis, Isiah Attending Unavailable Davis, Isiah Referring Unavailable Maribeth, [facility] Unavailable Terrelli, Moses Attending Unavailable Masci, Moses Referring Unavailable Maribeth, [facility] Unavailable David Mclain Consulting Unavailable Pati Jones Attending Unavailable Brian, [place] Attending Unavailable Brian, Rafael Referring Unavailable Masci, Moses Attending Unavailable Terrelli, Moses Referring Unavailable Maribeth, Sebastien Primary [facility] Unavailable David Mclain Consulting Unavailable Julian, Moses Attending Unavailable Maribeth, Sebast[facility] Primary [facility] Unavailable Julian, Moses Attending Unavailable Maribeth, Sebastien Primary Care Unavailable Terrelli, Moses Referring Unavailable PROBLEMS PROBLEMS DATE TYPE CONDITION / CODE ATTENDING STATUS SOURCE 08/31/2018 Unknown D75.1 - Secondary JulianMoses Active [place] polycythemia / Community D75.1(ICD-10) Hospital Repository 06/16/2018 Unknown Z98.61 - Coronary Brian, Rafael Active [place] angioplasty status / Community Z98.61(ICD-10) Hospital Repository 06/16/2018 Unknown I10 - Essential Brian, Rafael Active [place] (primary) Community hypertension / Hospital I10(ICD-10) Repository 06/16/2018 Unknown I25.10 - Brian, Kinston Active [place] Atherosclerotic heart Community disease of [facility] coronary artery 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 / I25.10(ICD-10) 06/16/2018 Unknown R06.09 - Other forms Brian, Rafael Active [place] of dyspnea / Community R06.09(ICD-10) Hospital Repository 07/01/2018 Unknown E03.9 - Masci, Moses Active [place] Hypothyroidism, Community unspecified / Hospital E03.9(ICD-10) Repository 06/16/2018 Unknown J44.9 - Chronic RaleighMorales Active [place] obstructive pulmonary Community disease, unspecified Hospital / J44.9(ICD-10) Repository 04/14/2018 Active Personal history of NA Active [facility] 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Clinic Main neoplasm of kidney / [place] Z85.528(ICD-10) Repository 07/02/2018 Unknown R55 - Syncope and Ahmed, Rami Active [place] collapse / Community R55(ICD-10) Hospital Repository 12/04/2017 Unknown G47.33 - Obstructive Brian, Kinston Active [place] sleep apnea (adult) Community (pediatric) / Hospital G47.33(ICD-10) Repository 12/04/2017 Unknown E78.5 - Brian, Rafael Active [place] Hyperlipidemia, Community unspecified / Hospital E78.5(ICD-10) Repository 10/16/2015 Active Secondary NA Active [place] polycythemia / Clinic Main D75.1(ICD-10) [place] Repository PROCEDURES PROCEDURES No Procedure Records FoundRESULTS RESULTS HIP, UNI W/ PELVIS Observed: 09/14/2018 Status: F Source: [place] 2-3 VIEWS 1:26 PM [facility] REPOSITORY [facility] [address] [place] [address] HIP, UNI W/ Pelvis 2-3 Views MR#: [id number] Acct: [id number] Name: DALE SARABIA Rep #: [id number] : 1955 M 63 From: Vipul Prieto MD PCP: Sebastien Stahl MD Status: REG CLI Study: HIP, UNI W/ Pelvis 2-3 Views Date of Exam: 09/14/18 Exam# [id number] Ordering Dr: Bakari Solis MD STUDY: X-RAY - PELVIS AND LEFT HIP REASON FOR EXAM: Male, 63 years old. Left hip pain x years, no known injury. TECHNIQUE: 3 views of the pelvis and hip. COMPARISON: AP pelvis and 2 additional views of the left hip on a total of 4 films May 21, 2017 FINDINGS: There is a non-specific bowel gas pattern. There are multiple calcified phleboliths. There is stable degenerative changes of the visualized lower lumbar spine. There is stable borderline narrowing with cortical sclerosis and osteophyte formation of the bilateral sacroiliac joints, consistent with degenerative osteoarthritic changes. Cortical enthesophytes again seen at the lateral margins of the bilateral iliac wings. Normal visualized sacrum. Normal bilateral superior and inferior pubic rami. Normal pubic symphysis. Normal bilateral ischial tuberosities. Normal visualized femoral head. There is stable oblong ossific density, possibly cortical spurring, along the inferior margin of the femoral neck. Cortical and calcified also seen at the greater trochanter. Normal acetabulum. There is stable mild articular joint space narrowing of the hip. No demonstrated acute osseous destructive lesion or fracture. RAD/HIP, UNI W/ Pelvis 2-3 Views IMPRESSION: Stable x-ray examination of the pelvis and left hip since April 2017, as described. Electronically Signed: Dell Prieto MD at 14:12 EST , Service support , CC: Bakari Solis MD; Sebastien Stahl MD Clay Puddler: Signed PROGRESS Observed: 09/01/2018 Status: COMPLETED Source: [place] 11:20 AM [facility] REPOSITORY HNO ID: [id number] Author: Moses Jordan Service: (none) Author Type: Physician Type: Progress Notes Filed: 09/01/2018 11:52 AM Note Text: Diagnosis: 1) Polycythemia. 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 Has been observed to have an elevated Hgb mass with occasional elevated RBC count over the last 4 years at least prior to evaluation here. I reviewed CBCs from [facility]. Hgb=18.4 gm/dl 07/07. CT A/P in February 2013-no sign recurrent RCC. Had c-scope. One polyp. On Androgel for about 9 yrs. Dose of Androgel was decreased by 50%. Hg 10/04/2105 was 20 g/dl despite doing so. Presents for ongoing management. Interim history: Since last seen, he underwent cardiac catheterization and was noted to have a 50% in-stent stenosis of the proximal LAD with an EF of 60% and normal LV wall motion. He presented to the ER about a week later with sudden onset intrascapular pain with worsening of shortness of breath. He underwent a CT angiogram which showed a fairly discrete small filling defect in the distal left pulmonary artery. Who was admitted and started on anticoagulation. He received hydration due to increasing creatinine. He is tolerating anticoagulation well with no unusual bleeding or unexplained bruising. He feels that his dyspnea on exertion has improved. He's not having any further chest pain. Occasional swelling in the ankles only is sitting or standing for long time but typically with walking it resolves. No cough or sputum production. No wheezing. PMH, medications and allergies personally reviewed by me today. Any changes documented in appropriate section. ROS: Constitutional: Appetite and energy are normal. Neuro: Denies imbalance. HEENT: No recent change in voice, vision or hearing. Resp: Denies cough and wheeze. CVS: Denies exertional chest pain, PND, orthopnea and LE edema. GI: Denies reflux, n/v, change in bowel habits and abdominal pain. : No dysuria or gross hematuria. Musculoskeletal: Denies bone, back, joint and muscular pain. Derm: No rash. Heme: See above. Psych: Normal mood. PHYSICAL EXAM: Vitals: Blood pressure 133/70, pulse 79, temperature 36.4 ?C (97.6 ?F), temperature source Oral, weight 130.9 kg (288 lb 8 oz). Well-appearing and in no acute distress. EYES: Sclerae are anicteric bilaterally. NECK: Supple. No enlargement of thyroid. LYMPHATIC: There is no palpable cervical, supraclavicular adenopathy. RESPIRATORY: Inspiratory breath sounds are of normal intensity in all pierce. No rales, wheezes or rhonchi. Expiratory phase is normal. CARDIOVASCULAR: Rhythm is regular. Normal intensity S1/S2. There is no gallop or murmur. ABDOMEN: The abdomen is nondistended. There is no organomegaly. No tenderness. Extremities: Free of edema. SKIN: No jaundice or rash. No petechiae. NEUROLOGIC: gis analyst developer II-XII are grossly intact. No focal motor weakness. ASSESSMENT/PLAN: (D75.1) Secondary polycythemia (primary encounter diagnosis) Assessment: -Previous molecular workup was negative for common mutations associated with polycythemia vera. -Patient becomes quite symptomatic with significant rise in hematocrit when not undergoing phlebotomy. -Again discussed with him the goal of therapy is to reduce his total iron body content and thus trying to slow erythropoiesis that way. -Exogenous testosterone was in contributing to elevated Hgb as evidenced that he now has a stable lower hemoglobin level with iron depletion and decrease in testosterone dose. -His RBC count is still elevated despite being iron depleted with lower hemoglobin. Hematocrit is elevated out of portion to the hemoglobin level. Therefore discussed with him adding Hydrea to the treatment regimen in an effort to keep the hematocrit more consistently under 45%. Plan: -Begin Hydrea 500 mg once a day. -Check CBC in 2 weeks to assess hemoglobin and platelet response. -Continue under the care of his general practitioner and customer service and sales consultant for management of his CAD and modifiable atherosclerotic risk factors. -Monthly CBC/ferritin with possible phlebotomy. -OV in about 6 months. 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 -CT in March 2018 showed stable findings compared to 2014. Plan: -Imaging as indicated clinically. (I27.82) Other chronic pulmonary embolism without acute cor pulmonale (HCC) Assessment: -Tolerating anticoagulation very well. -Discussed with him that given his underlying myeloproliferative disorder, indefinite anticoagulation recommended. Plan: -Continue Eliquis 5 mg twice a day. Moses Jordan DO CNOVSP Observed: 09/01/2018 Status: COMPLETED Source: [place] 11:10 AM [facility] REPOSITORY Visit (SP) Office (HEMAWS) DALE SARABIA ([id number]) 1955 M Date Time Provider Department 09/01/18 11:10 AM MOSES JORDAN During your visit today, we recorded the following information about you: Temperature Pulse Blood pressure Weight 97.6 degrees 79/minute 133/70 130.9 kg Moses Jordan DO 09/01/2018 11:52 AM Signed Diagnosis: 1) Polycythemia. 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 Has been observed to have an elevated Hgb mass with occasional elevated RBC count over the last 4 years at least prior to evaluation here. I reviewed CBCs from [facility]. Hgb=18.4 gm/dl 07/07. CT A/P in February 2013-no sign recurrent RCC. Had c-scope. One polyp. On Androgel for about 9 yrs. Dose of Androgel was decreased by 50%. Hg 10/04/2105 was 20 g/dl despite doing so. Presents for ongoing management. Interim history: Since last seen, he underwent cardiac catheterization and was noted to have a 50% in-stent stenosis of the proximal LAD with an EF of 60% and normal LV wall motion. He presented to the ER about a week later with sudden onset intrascapular pain with worsening of shortness of breath. He underwent a CT angiogram which showed a fairly discrete small filling defect in the distal left pulmonary artery. Who was admitted and started on anticoagulation. He received hydration due to increasing creatinine. He is tolerating anticoagulation well with no unusual bleeding or unexplained bruising. He feels that his dyspnea on exertion has improved. He's not having any further chest pain. Occasional swelling in the ankles only is sitting or standing for long time but typically with walking it resolves. No cough or sputum production. No wheezing. PMH, medications and allergies personally reviewed by me today. Any changes documented in appropriate section. ROS: Constitutional: Appetite and energy are normal. Neuro: Denies imbalance. HEENT: No recent change in voice, vision or hearing. Resp: Denies cough and wheeze. CVS: Denies exertional chest pain, PND, orthopnea and LE edema. GI: Denies reflux, n/v, change in bowel habits and abdominal pain. : No dysuria or gross hematuria. Musculoskeletal: Denies bone, back, joint and muscular pain. Derm: No rash. Heme: See above. Psych: Normal mood. PHYSICAL EXAM: Vitals: Blood pressure 133/70, pulse 79, temperature 36.4 ?C (97.6 ?F), temperature source Oral, weight 130.9 kg (288 lb 8 oz). Well-appearing and in no acute distress. EYES: Sclerae are anicteric bilaterally. NECK: Supple. No enlargement of thyroid. LYMPHATIC: There is no palpable cervical, supraclavicular adenopathy. RESPIRATORY: Inspiratory breath sounds are of normal intensity in all pierce. No rales, wheezes or rhonchi. Expiratory phase is normal. CARDIOVASCULAR: Rhythm is regular. Normal intensity S1/S2. There is no gallop or murmur. ABDOMEN: The abdomen is nondistended. There is no organomegaly. No tenderness. Extremities: Free of edema. SKIN: No jaundice or rash. No petechiae. NEUROLOGIC: gis analyst developer II-XII are grossly intact. No focal motor weakness. ASSESSMENT/PLAN: (D75.1) Secondary polycythemia (primary encounter diagnosis) Assessment: -Previous molecular workup was negative for common mutations associated with polycythemia vera. -Patient becomes quite symptomatic with significant rise in hematocrit when not undergoing phlebotomy. -Again discussed with him the goal of therapy is to reduce his total iron body content and thus trying to slow erythropoiesis that way. -Exogenous testosterone was in contributing to elevated Hgb as evidenced that he now has a stable lower hemoglobin level with iron depletion and decrease in testosterone dose. -His RBC count is still elevated despite being iron depleted with lower hemoglobin. Hematocrit is elevated out of portion to the hemoglobin level. Therefore discussed with him adding Hydrea to the treatment regimen in an effort to keep the hematocrit more consistently under 45%. Plan: -Begin Hydrea 500 mg once a day. -Check CBC in 2 weeks to assess hemoglobin and platelet response. -Continue under the care of his general practitioner and customer service and sales consultant for management of his CAD and modifiable atherosclerotic risk factors. -Monthly CBC/ferritin with possible phlebotomy. -OV in about 6 months. 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 -CT in March 2018 showed stable findings compared to 2015. Plan: -Imaging as indicated clinically. (I27.82) Other chronic pulmonary embolism without acute cor pulmonale (HCC) Assessment: -Tolerating anticoagulation very well. -Discussed with him that given his underlying myeloproliferative disorder, indefinite anticoagulation recommended. Plan: -Continue Eliquis 5 mg twice a day. Moses Jordan DO Referring Provider: MOSES JORDAN [[id number]] Allergies As of Date: 09/01/2018 Noted Allergy Reaction CHOCOLATE 08/02/2011 12 - Shortness of Breath environmental [Other] 12/27/2008 Comments: Seasonal, food allergies FENNEL SEED 09/02/2017 12 - Shortness of Breath MILK 09/01/2018 12 - Shortness of Breath THEOPHYLLINE 02/25/2006 5 - Intolerance Comments: very lethargic and muscle cramps Date Reviewed: 09/01/2018 Reviewed by: Tavia Aguilar - Fully Assessed Reason for Visit: Established Patient [175] Primary Visit Diagnosis:Secondary polycythemia [D75.1] Other Visit Diagnoses:Renal cell carcinoma of right kidney (HCC) [C64.1] Other chronic pulmonary embolism without acute cor pulmonale (HCC) [I27.82] Order(s):hydroxyurea (HYDREA) 500 mg capsuleTake 1 capsule by mouth once daily.Disp: 30 capsuleRfl: 5 [place] CBC AND DIFF [SQWCBCDF] Order #: [id number] STANDING FERRITIN BLD [SQFERR] Order #: [id number] STANDING apixaban (ELIQUIS) 5 mg tab(s)Take 1 tablet by mouth twice daily.Disp: 180 tabletRfl: 3 Follow-up and Disposition History Recorded Prescriptions as of 09/01/2018 Sig: APIXABAN 5 MG TABLET Take 1 tablet by mouth twice * FUROSEMIDE 40 MG TABLET Take 40 mg by mouth once hodan* SYMBICORT 160 MCG-4.5 MCG/ACT* Inhale 2 Puffs as instructed * LEVOTHYROXINE 25 MCG TABLET Take 25 mcg by mouth once lewis* METFORMIN 1,000 MG TABLET Take one tablet in AM AND 1 1/2* TOPROL XL 25 MG TABLET,EXTEND* Take 25 mg by mouth once hodan* TAMSULOSIN 0.4 MG CAPSULE Take 0.4 mg by mouth once lewis* LEVOTHYROXINE 200 MCG TABLET Take 200 mcg by mouth once da* AXIRON 30 MG/ACTUATION (1.5 M* Apply 1 Pump as directed once* ASPIRIN 81 MG TABLET Take 81 mg by mouth once hodan* VALSARTAN 80 MG-HYDROCHLOROTH* Take 1 tablet by mouth once d* HYDROXYUREA 500 MG CAPSULE Take 1 capsule by mouth once * Problem List As Of Date 09/01/2018 Noted Resolved Obesity, unspecified [E66.9] Unspecified essential hypertension [I10] More... Unspecified hypothyroidism [E03.9] Dysthymic disorder [F34.1] More... More... Unspecified asthma [J45.909] INVALID FOR* More... Other testicular hypofunction [E29.1] INVALID FOR* More... Obstructive sleep apnea (adult) (pediatric) [G4*INVALID FOR* Urinary calculus, unspecified [N20.9] INVALID FOR* More... Allergic rhinitis, cause unspecified [J30.9] INVALID FOR* SMALL UPPER AIRWAY -- DIFFICULT INTUBATION [J98*INVALID FOR* More... Impaired fasting glucose [R73.01] INVALID FOR* More... More... CAD (coronary artery disease) [I25.10] INVALID FOR* More... Renal cell carcinoma [C64.9] INVALID FOR* More... Secondary polycythemia [D75.1] INVALID FOR* Anxiety about health [F41.8] INVALID FOR* Fear of other medical care [F40.232] INVALID FOR* Pulmonary embolus (HCC) [I26.99] INVALID FOR* Encounter Status:Closed by MOSES JORDAN DO on 09/01/18 FERRITIN Collected: 08/31/2018 Status: F Source: [place] 10:38 AM [facility] REPOSITORY TYPE CODE TESTS RESULT OUT OF REFERENCE UNITS RANGE LAB L503.6550 26-388 ng/mL Low FERRITIN 9 Performed By: #### L503.6550 #### [facility] [address] [place], [place], [id number] CBC-COMPLETE BLOOD CNT Collected: 08/31/2018 Status: F Source: [place] NO DIFF 10:38 AM [facility] REPOSITORY TYPE CODE TESTS RESULT OUT OF RANGE REFERENCE UNITS LAB L100.1000 4.4-11.0 K/mm3 6.6 Normal WBC LAB L100.1200 4.6-6.2 M/mm3 High 6.33 RBC LAB L100.1300 13.0-16.5 g/dl Low 12.5 HGB LAB L100.1400 40-54 % 45.3 Normal HCT LAB L100.1500 80-94 fL Low 71.6 MCV LAB L100.1600 27.0-32.0 pg Low 19.7 MCH LAB L100.1700 32-36 g/gl Low 27.6 MCHC LAB L100.1810 11.6-14.6 % High 20.6 RDW CV LAB L100.1820 35.1-43.9 fl High 53.0 RDW SD LAB L100.1900 150-450 K/mm3 163 Normal PLT LAB L100.2000 6.2-12.0 fl Test Normal MPV not performed Performed By: #### L100.0500, L100.4500 #### [facility] [address] [place], [place], [address] DIFFERENTIAL COMMENT Collected: 08/31/2018 Status: F Source: [place] 10:38 AM [facility] REPOSITORY TYPE CODE TESTS RESULT OUT OF RANGE REFERENCE UNITS LAB L100.4500 Normal SMEAR COMMENT COMMENT Result Comment: 2+ MICROCYTOSIS RARE POLYCHROMASIA Performed By: #### L100.0500, L100.4500 #### [facility] [address] [place], [place], [address] CBC-COMPLETE BLOOD CNT Collected: 08/03/2018 Status: F Source: [place] NO DIFF 2:27 PM [facility] REPOSITORY TYPE CODE TESTS RESULT OUT OF RANGE REFERENCE UNITS LAB L100.1000 4.4-11.0 K/mm3 Normal WBC 10.5 LAB L100.1200 4.6-6.2 M/mm3 High RBC 6.77 LAB L100.1300 13.0-16.5 g/dl Normal HGB 13.0 LAB L100.1400 40-54 % Normal HCT 47.1 LAB L100.1500 80-94 fL Low MCV 69.6 LAB L100.1600 27.0-32.0 pg Low MCH 19.2 LAB L100.1700 32-36 g/gl Low MCHC 27.6 LAB L100.1810 11.6-14.6 % High RDW CV 20.6 LAB L100.1820 35.1-43.9 fl High RDW SD 49.2 LAB L100.1900 150-450 K/mm3 Normal PLT 248 Performed By: #### L100.0500, L100.4500 #### [facility] [address] [place], [address] DIFFERENTIAL COMMENT Collected: 08/03/2018 Status: F Source: [place] 2:27 PM [facility] REPOSITORY TYPE CODE TESTS RESULT OUT OF RANGE REFERENCE UNITS LAB L100.4500 Normal SMEAR COMMENT Result Comment: SLIDE SCANNED - 1+ ANISO, 1+ LARGE PLTS, 1+ HYPOCHROMIA. Performed By: #### L100.0500, L100.4500 #### [facility] [address] [place], [address] FERRITIN Collected: 08/03/2018 Status: F Source: [place] 2:27 PM [facility] REPOSITORY TYPE CODE TESTS RESULT OUT OF REFERENCE UNITS RANGE LAB L503.6550 26-388 ng/mL Low FERRITIN 10 Performed By: #### L503.6550 #### [facility] [address] [place], [address] CBC-COMPLETE BLOOD CNT Collected: 07/03/2018 Status: F Source: [place] NO DIFF 11:07 AM [facility] REPOSITORY Order Comment: KACEY WANTS THE ALLERY TESTING DEBBIE WANTS THE CBC FERRITIN TYPE CODE TESTS RESULT OUT OF RANGE REFERENCE UNITS LAB L100.1000 4.4-11.0 K/mm3 Normal WBC 6.3 LAB L100.1200 4.6-6.2 M/mm3 High RBC 6.36 LAB L100.1300 13.0-16.5 g/dl Low HGB 12.0 LAB L100.1400 40-54 % Normal HCT 42.9 LAB L100.1500 80-94 fL Low MCV 67.5 LAB L100.1600 27.0-32.0 pg Low MCH 18.9 LAB L100.1700 32-36 g/gl Low MCHC 28.0 LAB L100.1810 11.6-14.6 % High RDW CV 19.6 LAB L100.1820 35.1-43.9 fl High RDW SD 46.7 LAB L100.1900 150-450 K/mm3 Normal PLT 191 Performed By: #### L100.0500, L100.4500 #### [facility] [address] [place], [address] DIFFERENTIAL COMMENT Collected: 07/03/2018 Status: F Source: [place] 11:07 [facility] REPOSITORY Order Comment: KACEY WANTS THE ALLERY TESTING DEBBIE WANTS THE CBC FERRITIN TYPE CODE TESTS RESULT OUT OF RANGE REFERENCE UNITS LAB L100.4500 Normal SMEAR COMMENT COMMENT Result Comment: SLIDE SCANNED - 1+ [employer] CELLS, RARE RBC FRAGMENTS, 1+ LARGE PLTS. Performed By: #### L100.0500, L100.4500 #### [facility] [address] [place], [address] FERRITIN Collected: 07/03/2018 Status: F Source: [place] 11:07 [facility] REPOSITORY Order Comment: KACEY WANTS THE ALLERY TESTING DEBBIE WANTS THE CBC FERRITIN TYPE CODE TESTS RESULT OUT OF REFERENCE UNITS RANGE LAB L503.6550 26-388 ng/mL Low FERRITIN 8 Performed By: #### L503.6550 #### [facility] [address] [place], [address] ALLERGEN, FOOD PROFILE Collected: 07/03/2018 Status: F Source: [place] 11:04 [facility] REPOSITORY Order Comment: KACEY WANTS THE ALLERY TESTING DEBBIE WANTS THE CBC FERRITIN TYPE CODE TESTS RESULT OUT OF RANGE REFERENCE UNITS LAB L5500.3002 Class 0/I kU/L High MILK (COW) 0.11 LAB L5500.3004 Class 0 kU/L Normal WHEAT <0.10 LAB L5500.3008 Class 0 kU/L Normal CORN <0.10 LAB L5500.3013 Class 0 kU/L Normal PEANUT <0.10 LAB L5500.3014 Class 0 kU/L Normal SOYBEAN <0.10 LAB L5500.8100 . Normal RAST COMMENT Comment Result Comment: Levels of Specific IgE Class Description of Class ----- < 0.10 0 Negative 0.10 - 0.31 0/I Equivocal/Low 0.32 - 0.55 I Low 0.56 - 1.40 II Moderate 1.41 - 3.90 III High 3.91 - 19.00 IV Very High 19.01 - 100.00 V Very High >100.00 Very High LAB L5530.0430 Class 0 kU/L Normal CLAM <0.10 LAB L5530.0460 Class 0 kU/L Normal CODFISH <0.10 LAB L5530.0570 Class 0 kU/L Normal EGG,WHITE <0.10 LAB L5530.1430 Class 0 kU/L Normal Scallop <0.10 LAB L5530.1440 Class 0 kU/L Normal Sesame Seed <0.10 LAB L5530.1450 Class 0 kU/L Normal SHRIMP <0.10 LAB L5530.1650 Class 0 kU/L Normal WALNUT <0.10 Performed By: #### L5500.0410, L5530.0589, L5530.1039, L5530.1339, L5530.1419, L5530.1589, L5530.1609 #### [facility] (refer to report for specific site) refer to report for address and phone number EGG, WHOLE Collected: 07/03/2018 Status: F Source: [place] 11:04 [facility] REPOSITORY Order Comment: KACEY CROWDERS THE ALLERY TESTING DEBBIE WANTS THE CBC FERRITIN TYPE CODE TESTS RESULT OUT OF RANGE REFERENCE UNITS LAB L5530.0590 Class 0 kU/L Normal EGG,WHOLE <0.10 Performed By: #### L5500.0410, L5530.0589, L5530.1039, L5530.1339, L5530.1419, L5530.1589, L5530.1609 #### [facility] (refer to report for specific site) refer to report for address and phone number ONION Collected: 07/03/2018 Status: F Source: [place] 11:04 AM [facility] REPOSITORY Order Comment: KACEY CROWDERS THE ALLERY TESTING DEBBIE WANTS THE CBC FERRITIN TYPE CODE TESTS RESULT OUT OF RANGE REFERENCE UNITS LAB L5530.1040 Class 0 kU/L Normal ONION <0.10 Result Comment: Performed at: [facility] [id number] Site Interpreter: Goyo Moreno MD, Phone: [phone] Performed By: #### L5500.0410, L5530.0589, L5530.1039, L5530.1339, L5530.1419, L5530.1589, L5530.1609 #### [facility] (refer to report for specific site) refer to report for address and phone number THOR WHITE Collected: 07/03/2018 Status: F Source: [place] 11:04 AM [facility] REPOSITORY Order Comment: KACEY WANTS THE ALLERY TESTING DEBBIE WANTS THE CBC FERRITIN TYPE CODE TESTS RESULT OUT OF RANGE REFERENCE UNITS LAB L5530.1340 Class 0 kU/L Normal <0.10 THORWHITE Performed By: #### L5500.0410, L5530.0589, L5530.1039, L5530.1339, L5530.1419, L5530.1589, L5530.1609 #### [facility] (refer to report for specific site) refer to report for address and phone number SALMON Collected: 07/03/2018 Status: F Source: [place] 11:04 AM [facility] REPOSITORY Order Comment: KACEY WANTS THE ALLERY TESTING DEBBIE WANTS THE CBC FERRITIN TYPE CODE TESTS RESULT OUT OF RANGE REFERENCE UNITS LAB L5530.1420 Class 0 kU/L Normal SALMON <0.10 Performed By: #### L5500.0410, L5530.0589, L5530.1039, L5530.1339, L5530.1419, L5530.1589, L5530.1609 #### [facility] (refer to report for specific site) refer to report for address and phone number TOMATO Collected: 07/03/2018 Status: F Source: [place] 11:04 AM [facility] REPOSITORY Order Comment: KACEY WANTS THE ALLERY TESTING DEBBIE WANTS THE CBC FERRITIN TYPE CODE TESTS RESULT OUT OF RANGE REFERENCE UNITS LAB L5530.1590 Class 0 kU/L Normal TOMATO <0.10 Performed By: #### L5500.0410, L5530.0589, L5530.1039, L5530.1339, L5530.1419, L5530.1589, L5530.1609 #### [facility] (refer to report for specific site) refer to report for address and phone number TUNA Collected: 07/03/2018 Status: F Source: [place] 11:04 AM [facility] REPOSITORY Order Comment: KACEY WANTS THE ALLERY TESTING DEBBIE WANTS THE CBC FERRITIN TYPE CODE TESTS RESULT OUT OF RANGE REFERENCE UNITS LAB L5530.1610 Class 0 kU/L Normal TUNA <0.10 Performed By: #### L5500.0410, L5530.0589, L5530.1039, L5530.1339, L5530.1419, L5530.1589, L5530.1609 #### [facility] (refer to report for specific site) refer to report for address and phone number ALLERGEN RESP. AREA 5 Collected: 07/03/2018 Status: F Source: [place] 11:04 AM [facility] REPOSITORY Order Comment: KACEY CROWDERS THE ALLERY TESTING DEBBIE WANTS THE CBC FERRITIN TYPE CODE TESTS RESULT OUT OF RANGE REFERENCE UNITS LAB L5500.8000 0-100 IU/mL Normal TOTAL igE < 2 LAB L5500.9900 . Normal RAST COMMENT Comment Result Comment: Levels of Specific IgE Class Description of Class ----- < 0.10 0 Negative 0.10 - 0.31 0/I Equivocal/Low 0.32 - 0.55 I Low 0.56 - 1.40 II Moderate 1.41 - 3.90 III High 3.91 - 19.00 IV Very High 19.01 - 100.00 V Very High >100.00 Very High LAB L5510.0040 Class 0 kU/L CAT HAIR/DANDER Normal <0.10 LAB L5510.0070 Class 0 kU/L DOG EPITHELIA Normal <0.10 LAB L5520.0020 Class 0 kU/L D FARINAE MITE Normal <0.10 LAB L5520.0030 Class 0 kU/L D PTERONYSSINUS Normal <0.10 LAB L5540.0020 Class 0 kU/L BERMUDA GRASS Normal <0.10 LAB L5540.0190 Class 0 kU/L CARLA GRASS Normal <0.10 LAB L5550.0020 Class 0 kU/L ALTERNARIA TEN Normal <0.10 LAB L5550.0040 Class 0 kU/L ASPERGILLUS FUM Normal <0.10 LAB L5550.0140 Class 0 kU/L CLADOSPOR HERB Normal <0.10 LAB L5550.0340 Class 0 kU/L PEN Notatum Normal <0.10 LAB L5555.0380 Class 0 kU/L COCKROACH,AMER Normal <0.10 LAB L5555.0410 Class 0 kU/L Mouse Urine Normal <0.10 Result Comment: Performed at: [facility] [id number] Site Interpreter: Goyo Moreno MD, Phone: [phone] LAB L5560.0050 Class 0 kU/L KIRILL, Normal WHITE <0.10 LAB L5560.0100 Class 0 kU/L BIRCH Normal <0.10 LAB L5560.0110 Class 0 kU/L CEDAR, Normal MOUNTAIN <0.10 LAB L5560.0140 Class 0 kU/L Normal COTTONWOOD <0.10 LAB L5560.0170 Class 0 kU/L ELM,AMER Normal WHITE <0.10 LAB L5560.0310 Class 0 kU/L Normal MAPLE/BOX ELDER <0.10 LAB L5560.0371 Class 0 kU/L Normal MULBERRY, WHITE <0.10 LAB L5560.0400 Class 0 kU/L OAK, Normal WHITE <0.10 LAB L5560.0440 Class 0 kU/L PECAN Normal <0.10 LAB L5560.0550 Class 0 kU/L Normal SYCAMORE, AMER <0.10 LAB L5560.0570 Class 0 kU/L BLACK Normal WALNUT <0.10 LAB L5580.0210 Class 0 kU/L PIGWEED, Normal ROUGH <0.10 LAB L5580.0260 Class 0 kU/L RAGWEED Normal SH/COM <0.10 LAB L5580.0320 Class 0 kU/L SHEEP Normal SORREL <0.10 LAB L5580.0360 Class 0 kU/L MONEGASQUE Normal THISTLE <0.10 Performed By: #### L5500.0700 #### [facility] (refer to report for specific site) refer to report for address and phone number IMMUNOGLOBULIN E Collected: 07/03/2018 Status: F Source: [place] 11:04 AM [facility] REPOSITORY Order Comment: KACEY WANTS THE ALLERY TESTING DEBBIE WANTS THE CBC FERRITIN TYPE CODE TESTS RESULT OUT OF RANGE REFERENCE UNITS LAB L3200.1600 0-100 IU/mL Normal IMMUNO E < 2 Result Comment: Performed at: - [facility] [id number] Site Interpreter: Goyo Moreno MD, Phone: [phone] Performed By: #### L3200.1600 #### [facility] (refer to report for specific site) refer to report for address and phone number BASIC METABOLIC Collected: 06/26/2018 Status: F Source: [place] PROFILE (BMP) 10:44 AM [facility] REPOSITORY Order Comment: Send Results To: PCP Reason for Laboratory Test ANNA MARIE due to [place] TYPE CODE TESTS RESULT OUT OF RANGE REFERENCE UNITS LAB L501.0100 74-106 mg/dL High GLU 156 Result Comment: Fasting Glucose result greater than or equal to 126 mg/dL suggests DIABETES MELLITUS per A.D.A. criteria. Please note revised GLUCOSE reference range effective 2017. LAB L501.1000 7-18 mg/dL Normal BUN 13 LAB L501.1100 0.70-1.30 mg/dL Normal CREAT,SERUM 1.19 Result Comment: The validity of the calculated GFR AND GFRAA in patients over 70 years has not been determined. Clinical correlation is essential. LAB L501.1110 >60 mL/min Normal EST GFR 65 Result Comment: Non- GFR Calc LAB L501.1115 >60 mL/min Normal EST GFR - AA 79 Result Comment: GFR Calc LAB L501.1300 10-20 RATIO Normal BUN/CRE 10.9 LAB L501.2200 8.5-10.1 mg/dL CA Normal 9.0 LAB L501.5300 136-145 mmol/L NA Normal 141 LAB L501.5600 3.5-5.1 mmol/L K Normal 4.0 LAB L501.5900 98-107 mmol/L CL Normal 106 LAB L501.6100 21.0-32.0 mmol/L Normal CO2 27.0 LAB L501.6200 5-15 Normal GAP 8 Performed By: #### L500.2500 #### [facility] [address] [place], [address] 12 LEAD ELECTROCARDIOGRAM Observed: 06/24/2018 Status: F Source: [place] 9:32 AM [facility] REPOSITORY [facility] [address] [address] 12 Lead EKG 06/21/18 1503 MR#: [id number] Acct: [id number] Name: DALE SARABIA P Rep #: [id number] : 1955 63 From: Rafael Solorio MD Attending Dr: Isiah Cannon MD Status: DIS IN Ordering Dr: Isiah Cannon MD Date: 06/21/18 Location: [facility] Sex: M C Admitted: 06/21/18 Test Reason : SOB Blood Pressure : / mmHG Vent. Rate : 116 BPM Atrial Rate : 116 BPM P-R Int : 170 ms QRS Dur : 092 ms QT Int : 322 ms P-R-T Axes : 050 -64 028 degrees QTc Int : 447 ms Sinus tachycardia Left axis deviation Inferior infarct , age undetermined Abnormal ECG Confirmed by RAFAEL SOLORIO MD ([id number]), film editor RIMMA LAZARO ([id number]) on 06/24/2018 9:31:48 AM Referred By: JW Confirmed By:RAFAEL SOLORIO MD 06/24/18 0931 Date Rafael Solorio MD CC: Isiah Cannon MD; Sebastien Stahl MD Signed VENOUS DUPLEX LOWER Observed: 06/24/2018 Status: F Source: [place] EXTREMITY 7:59 AM [facility] REPOSITORY [facility] [address] [address] Venous Duplex US - Elia Extrem 06/22/18 1353 MR#: [id number] Acct: [id number] Name: DALE SARABIA P Rep #: [id number] : 1955 63 From: Bryan Garcia MD Attending Dr: Isiah Cannon MD Status: DIS IN Ordering Dr: Isiah Cannon MD Date: 06/22/18 Location: [facility] Sex: M C Admitted: 06/21/18 Reason For Study: Pulmonary Embolism RIGHT LEFT CFV is compressible, spontaneous, phasic, GSV is normal. competent and demonstrates normal CFV is compressible, spontaneous, phasic, augmentation. competent, and demonstrates normal FV is compressible, spontaneous, phasic, augmentation. competent and demonstrates normal FV is compressible, spontaneous, phasic, augmentation. competent and demonstrates normal POP V is compressible, spontaneous, phasic, augmentation. competent and demonstrates normal POP V is compressible, spontaneous, phasic, augmentation. competent and demonstrates normal T/P Trunk is compressible. augmentation. PTV is compressible. T/P Trunk is compressible. RT PerV is compressible. PTV is compressible. GSV is normal above the knee. LT PerV is compressible. GSV is dilated and noncompressible below the knee. Procedure Exam performed portable in patient room. The exam was diagnostic. A preliminary report was called and/or faxed to PT's RN AND PCU. Interpretation Summary Deep veins of the lower extremities are bilaterally patent and compressible segmentally. There is no evidence of deep vein thrombosis on either side. Valvular competence appears intact within the proximal deep venous systems bilaterally. The right greater saphenous vein is patent and compressible above the knee. Acute superficial thrombophlebitis is noted in the right greater saphenous vein below the knee. The left greater saphenous vein appears patent and compressible segmentally. Ordering Physician: Isiah Cannon Referring Physician: Sebastien Stahl Performed By: Celia Sheikh, FAINACS, RVT 06/24/18 0759 Date Bryan Garcia MD CC: Isiah Cannon MD; Sebastien Stahl MD Date Dictated: 06/22/18 1353 Date Transcribed: 06/24/18 0759 Clay Puddler: Signed DISCHARGE SUMMARY Observed: 06/23/2018 Status: F Source: [place] 2:35 PM [facility] REPOSITORY [facility] Medical Records Department [address] [place] [address] Discharge Summary 06/23/18 1428 MR#: [id number] Acct: [id number] Name: DALE SARABIA Rep #: [id number] : 1955 63 From: Isiah Cannon MD PCP: Sebastien Stahl MD Status: DIS IN Y Location: [place] [address] Discharge Date and Diagnosis Date of Admission: 06/21/18 Date of Discharge: 06/23/18 - Primary Discharge Diagnosis 1. Acute small distal left pulmonary artery PE: Patient was started on IV heparin drip. 2. 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) PCI to proximal LAD with overlapping 3.0 x 28 mm and 3.5 x 12 mm Vision bare metal stents w/ POBA ostial D1 05/24/2011 Palpitations (Chronic) History of renal cell cancer (Chronic) Benign prostatic hypertrophy (Chronic) Type II diabetes mellitus (Chronic) Hyperlipidemia (Chronic) Obesity (Chronic) COPD (chronic obstructive pulmonary disease) (Chronic) Obstructive sleep apnea (Chronic) CPAP 13 cm of water Hypothyroidism (Chronic) Status post right partial nephrectomy (Chronic) Hypertension (Chronic) Hospital Course and Treatment Operations: None Summary of Care Provided: [] The patient is a 63 year old M morbidly obese with probable history of COPD, obstructive sleep apnea on CPAP and coronary artery disease with recent cath on last Friday with about 50% in-stent stenosis of proximal LAD with EF 60% with normal LV wall motion and systolic function came to ER with acute and chronic shortness of breath today. Patient has chronic shortness of breath and probable COPD and obstructive sleep apnea on CPAP. Patient follows Dr. Storey and Dr. solorio. Previously, he had PFT with Dr. Storey was told his PFT is good but he has about 15-20 pack years of smoking and chronic shortness of breath. Today, he suddenly felt intrascapular pain while worsening of shortness of breath and discharge. Interscapular back pain, lasted for about 10-15 minutes but still short of breath. In ED, EKG shows sinus tachycardia at 116 bpm with LAD. Vitals significant of tachycardia 114/min, pulse ox 93% on 4 L of oxygen. Patient had CT angiogram of chest which shows fairly discrete a small filling defect in distal left pulmonary artery, although reported as study likely inadequate for exclusion of PE. Patient creatinine is 1.64, BUN 19. Previous creatinine on 05/27/2018 was normal 1.21 with estimated creatinine clearance 64 mL/min. 1. Acute small distal left pulmonary artery PE: Patient was started on IV heparin drip. Patient was being admitted in PCU on case monitor. Lower extremity venous Doppler was done but I do not see report on computer. I am verbally informed by nurse that she was called earlier that is small clot in left lower extremity below knee level. Details are not available. Patient denies first-degree family history of venous thromboembolism. Initially started on IV heparin and his kidney function improved. Switch to oral apixaban. 2. Acute kidney injury on CKD stage II; most rapidly contrast- induced nephropathy from recent cardiac cath and CT angiogram today: Resolved. IV fluid decreased to 50 mL/min. Monitor kidney function and electrolytes. IV fluid was discontinued. Patient was advised to hold Lasix for 7 days. Valsartan/HCTZ was resumed and his kidney function tolerated well. 3. Pulmonary condition obstructive sleep apnea on CPAP and probable COPD: Bronchodilator as needed for shortness of breath. CPAP at night. Patient follows Dr. Storey. 4. Coronary artery disease with recent cardiac cath as mentioned above: Continue cardiac medications 5. Diabetes mellitus type 2: Patient glucose is 250 on BMP. Accu-Chek before meals and at bedtime and cover with NovoLog sliding scale. Hold metformin and other oral hypoglycemic agents. 6. Hypertension: Blood pressure is elevated. 146/72, patient was put back on his antihypertensive medication valsartan 80/HCTZ 12.5 mg daily. Other chronic comorbidities include hypothyroidism, hypertension, BPH, history of renal cell cancer status post right partial nephrectomy and morbid obesity: Patient BMI is 42.1. Multiple comorbidities complicates the present care and expect difficult and delay recovery DVT prophylaxis: On apixaban Discharge medication reconciliation done. Follow-up instructions discussed with the patient. Patient was advised to hold metformin and Lasix for 7 days. Repeat BMP on next Friday and follow with PCP. Total time spent, exact 35 minutes on discharge meds reconciliation, examination, review of imaging and blood test and discussion with the patient on follow-up instructions. Discharge Activity: May not drive while taking narcotic pain medications. Call your doctor if you observe: Fever of 101 or Higher, Inability to urinate, Shortness of breath, Dizziness, Swelling in the ankles Home Medications: Medications to take at Discharge Aspirin [Aspirin, Baby] 81 mg PO DAILY@0800 03/17/16 Tamsulosin HCl [Flomax] 0.4 mg PO DAILY 03/17/16 budesonide-formoterol HFA 160 mcg-4.5 mcg/actuation aerosol inhaler 2 puff INHALATION Q12H 01/01/18 Metoprolol Succinate [Toprol Xl] 25 mg PO DAILY 01/03/18 valsartan 80 mg-hydrochlorothiazide 12.5 mg tablet 1 tab PO DAILY 01/06/18 Levothyroxine Sodium [Synthroid] 225 mcg PO DAILY 03/27/18 Testosterone [Androgel] 2 pump TD DAILY 03/27/18 albuterol sulfate HFA 90 mcg/actuation aerosol inhaler 2 puff INHALATION Q4H PRN #18 g 06/18/18 Apixaban [Eliquis] 10 mg PO BID #60 tab 06/22/18 Docusate Sodium [Colace] 200 mg PO BID PRN PRN capsule 06/23/18 Furosemide 40 mg PO DAILY PRN PRN #1 06/23/18 Metformin HCl 1,000 mg PO BID #0 06/23/18 Following Prescrptions Were Given to Patient: Apixaban [Eliquis] 10 mg PO BID #60 tab Other Amb Orders: Basic Metabolic Profile (BMP) Time Frame: 06/26/18, Location: Laboratory Primary Care Physician: Sebastien Stahl MD [Primary Care Provider] - Please follow up with your Primary Care Physician in: in 1- 2 weeks and F/U BMP on next Friday Medical Necessity - Tobacco Use Smoking Status: Former smoker Meaningful Use Info Meaningful Use Diagnoses (Choose all that apply): None applicable Code Visit Inpatient E AND M: 22489 Disch Hosp 06/23/18 1435 <Electronically signed by Isiah Cannon MD> Date Isiah Cannon MD Cosigner Signature (if applicable): Date CC: Isiah Cannon MD; Sebastien Stahl MD Signed DISCHARGE INSTRUCTION Observed: 06/23/2018 Status: F Source: [place] 10:34 AM [facility] REPOSITORY [facility] Medical Records Department [address] [place] [address] Instructions for Home/Discharge Instructions 06/23/18 1032 MR#: [id number] Acct: [id number] Name: DALE SARABIA Rep #: [id number] : 1955 63 From: Isiah Cannon MD PCP: Sebastien Stahl MD Status: ADM IN - Discharge Diagnoses Current Active Problems: Current Active and Chronic Problems (Last Reviewed 06/19/18 @ 09:48 by Toma Morley, BILL ADJUSTER-C) Left pulmonary artery PE (Acute) You will use the following diet at home:: Calorie/Carbohydrate Controlled (specify 1200, 1400, etc) - 1800 ADA diet Discharge Activity: May not drive while taking narcotic pain medications. Call your doctor if you observe: Fever of 101 or Higher, Inability to urinate, Shortness of breath, Dizziness, Swelling in the ankles Allergies/Adverse Reactions: Allergies theophylline Allergy (Verified 06/16/18 09:39) Unknown Medications to take at Discharge Aspirin [Aspirin, Baby] 81 mg PO DAILY@0800 03/17/16 Tamsulosin HCl [Flomax] 0.4 mg PO DAILY 03/17/16 budesonide-formoterol HFA 160 mcg-4.5 mcg/actuation aerosol inhaler 2 puff INHALATION Q12H 01/01/18 Metoprolol Succinate [Toprol Xl] 25 mg PO DAILY 01/03/18 valsartan 80 mg-hydrochlorothiazide 12.5 mg tablet 1 tab PO DAILY 01/06/18 Levothyroxine Sodium [Synthroid] 225 mcg PO DAILY 03/27/18 Testosterone [Androgel] 2 pump TD DAILY 03/27/18 albuterol sulfate HFA 90 mcg/actuation aerosol inhaler 2 puff INHALATION Q4H PRN #18 g 06/18/18 Apixaban [Eliquis] 10 mg PO BID #60 tab 06/22/18 Docusate Sodium [Colace] 200 mg PO BID PRN PRN capsule 06/23/18 Furosemide 40 mg PO DAILY PRN PRN #1 06/23/18 Metformin HCl 1,000 mg PO BID #0 06/23/18 The following prescriptions were given: Apixaban [Eliquis] 10 mg PO BID #60 tab Orders to be completed after discharge: Basic Metabolic Profile (BMP) Time Frame: 06/26/18, Location: Laboratory Primary Care Physician: Sebastien Stahl MD [Primary Care Provider] - Please follow up with your Primary Care Physician in: in 1- 2 weeks and F/U BMP on next Friday Test Results: Test results from this visit will be discussed in further detail at your follow-up appointment, if applicable. 06/23/18 1034 <Electronically signed by Isiah Cannon MD> Date Isiah Cannon MD CC: Sebastien Stahl MD BEDSIDE GLUCOSE Collected: 06/23/2018 Status: F Source: LE[place]ID 6:47 AM [facility] REPOSITORY TYPE CODE TESTS RESULT OUT OF REFERENCE UNITS RANGE LAB L501.080 70-110 mg/dL High BEDSIDE GLU 160 Result Comment: MANAGEMENT OF PATIENT CARE PER NURSING PROTOCOL Performed By: #### L501.080 #### [facility] Point of Care [facility] [address] [place] [address] BASIC METABOLIC Collected: 06/23/2018 Status: F Source: [place] PROFILE (BMP) 5:20 AM [facility] REPOSITORY TYPE CODE TESTS RESULT OUT OF RANGE REFERENCE UNITS LAB L501.0100 74-106 mg/dL High GLU 156 Result Comment: Fasting Glucose result greater than or equal to 126 mg/dL suggests DIABETES MELLITUS per A.D.A. criteria. Please note revised GLUCOSE reference range effective 2017. LAB L501.1000 7-18 mg/dL Normal BUN 12 LAB L501.1100 0.70-1.30 mg/dL Normal CREAT,SERUM 1.18 Result Comment: The validity of the calculated GFR AND GFRAA in patients over 70 years has not been determined. Clinical correlation is essential. LAB L501.1110 >60 mL/min Normal EST GFR 66 Result Comment: Non- GFR Calc LAB L501.1115 >60 mL/min Normal EST GFR - AA 80 Result Comment: GFR Calc LAB L501.1255 ml/min Normal Estimated CRCL 60.38 LAB L501.1300 10-20 RATIO Normal BUN/CRE 10.2 LAB L501.2200 8.5-10 mg/dL Normal .1 CA 8.6 LAB L501.5300 136-14 mmol/L Normal 5 NA 138 LAB L501.5600 3.5-5. mmol/L Normal 1 K 4.0 LAB L501.5900 98-107 mmol/L Normal CL 104 LAB L501.6100 21.0-3 mmol/L Normal 2.0 CO2 27.0 LAB L501.6200 5-15 Normal GAP 7 Performed By: #### L500.2500 #### [facility] [address] [place], [place], [address] BEDSIDE GLUCOSE Collected: 06/22/2018 Status: F Source: LE[place] 10:36 PM [facility] REPOSITORY TYPE CODE TESTS RESULT OUT OF REFERENCE UNITS RANGE LAB L501.080 70-110 mg/dL High BEDSIDE GLU 155 Result Comment: MANAGEMENT OF PATIENT CARE PER NURSING PROTOCOL Performed By: #### L501.080 #### [facility] Point of Care [address] [place] [address] BEDSIDE GLUCOSE Collected: 06/22/2018 Status: F Source: [place] 4:13 PM [facility] REPOSITORY TYPE CODE TESTS RESULT OUT OF REFERENCE UNITS RANGE LAB L501.080 70-110 mg/dL High BEDSIDE GLU 173 Result Comment: MANAGEMENT OF PATIENT CARE PER NURSING PROTOCOL Performed By: #### L501.080 #### [facility] Point of Care [address] [place] [address] BEDSIDE GLUCOSE Collected: 06/22/2018 Status: F Source: [place] 11:01 AM [facility] REPOSITORY TYPE CODE TESTS RESULT OUT OF REFERENCE UNITS RANGE LAB L501.080 70-110 mg/dL High BEDSIDE GLU 208 Result Comment: MANAGEMENT OF PATIENT CARE PER NURSING PROTOCOL Performed By: #### L501.080 #### [facility] Point of Care [address] [place] [address] PARTIAL THROMBOPLAST Collected: 06/22/2018 Status: F Source: [place] TIME 10:00 AM [facility] REPOSITORY TYPE CODE TESTS RESULT OUT OF REFERENCE UNITS RANGE LAB L300.4310 24.1-36.2 Seconds High PTT 58.4 Performed By: #### L300.4310 #### [facility] [address] [place], [address] BEDSIDE GLUCOSE Collected: 06/22/2018 Status: F Source: [place] 6:52 AM [facility] REPOSITORY TYPE CODE TESTS RESULT OUT OF REFERENCE UNITS RANGE LAB L501.080 70-110 mg/dL High BEDSIDE GLU 162 Result Comment: MANAGEMENT OF PATIENT CARE PER NURSING PROTOCOL Performed By: #### L501.080 #### [facility] Point of Care [address] [place] [address] BASIC METABOLIC Collected: 06/22/2018 Status: F Source: [place] PROFILE (BMP) 5:20 AM [facility] REPOSITORY TYPE CODE TESTS RESULT OUT OF RANGE REFERENCE UNITS LAB L501.0100 74-106 mg/dL High GLU 161 Result Comment: Fasting Glucose result greater than or equal to 126 mg/dL suggests DIABETES MELLITUS per A.D.A. criteria. Please note revised GLUCOSE reference range effective 2017. LAB L501.1000 7-18 mg/dL Normal BUN 17 LAB L501.1100 0.70-1.30 mg/dL Normal CREAT,SERUM 1.15 Result Comment: The validity of the calculated GFR AND GFRAA in patients over 70 years has not been determined. Clinical correlation is essential. LAB L501.1110 >60 mL/min Normal EST GFR 68 Result Comment: Non- GFR Calc LAB L501.1115 >60 mL/min Normal EST GFR - AA 82 Result Comment: GFR Calc LAB L501.1255 ml/min Normal Estimated CRCL 61.96 LAB L501.1300 10-20 RATIO Normal BUN/CRE 14.8 LAB L501.2200 8.5-10 mg/dL Low .1 CA 8.3 LAB L501.5300 136-14 mmol/L Normal 5 NA 139 LAB L501.5600 3.5-5. mmol/L Normal 1 K 3.8 LAB L501.5900 98-107 mmol/L Normal CL 104 LAB L501.6100 21.0-3 mmol/L Normal 2.0 CO2 25.0 LAB L501.6200 5-15 Normal GAP 10 Performed By: #### L500.2500 #### [facility] [address], [address] CBC-COMPLETE BLOOD CNT Collected: 06/22/2018 Status: F Source: [place] NO DIFF 5:20 AM [facility] REPOSITORY TYPE CODE TESTS RESULT OUT OF RANGE REFERENCE UNITS LAB L100.1000 4.4-11.0 K/mm3 Normal WBC 8.5 LAB L100.1200 4.6-6.2 M/mm3 Normal RBC 5.98 LAB L100.1300 13.0-16.5 g/dl Low HGB 11.1 LAB L100.1400 40-54 % Normal HCT 40.4 LAB L100.1500 80-94 fL Low MCV 67.6 LAB L100.1600 27.0-32.0 pg Low MCH 18.6 LAB L100.1700 32-36 g/gl Low MCHC 27.5 LAB L100.1810 11.6-14.6 % High RDW CV 19.8 LAB L100.1820 35.1-43.9 fl High RDW SD 47.9 LAB L100.1900 150-450 K/mm3 Normal PLT 203 Performed By: #### L100.0500, L100.4500 #### [facility] [address] [place], [address] DIFFERENTIAL COMMENT Collected: 06/22/2018 Status: F Source: LE[place] 5:20 AM [facility] REPOSITORY TYPE CODE TESTS RESULT OUT OF RANGE REFERENCE UNITS LAB L100.4500 Normal SMEAR COMMENT SCAN Result Comment: LARGE PLATELETS OBSERVED. HYPOCHROMASIA 1+ MICROCYTOSIS 1+ POLYCHROMASIA 1+ Performed By: #### L100.0500, L100.4500 #### [facility] [address] [place], [address] HEMOGLOBIN A1C Collected: 06/22/2018 Status: F Source: [place] 5:20 AM [facility] REPOSITORY TYPE CODE TESTS RESULT OUT OF RANGE REFERENCE UNITS LAB L501.9985 4.2-6.3 % High HGB A1C 6.9 Performed By: #### L501.9985 #### [facility] [address] [place], [address] BNP,B-TYPE NATRIURETIC Collected: 06/22/2018 Status: F Source: [place] PEPTIDE 5:20 AM [facility] REPOSITORY TYPE CODE TESTS RESULT OUT OF RANGE REFERENCE UNITS LAB L503.6620 0-100 pg/mL Normal B-TYPE 11.7 BRIE PEP Performed By: #### L503.6620 #### [facility] [address] [place], [address] PARTIAL THROMBOPLAST Collected: 06/22/2018 Status: F Source: [place] TIME 2:00 AM [facility] REPOSITORY Order Comment: Comments: On IV heparin drip TYPE CODE TESTS RESULT OUT OF REFERENCE UNITS RANGE LAB L300.4310 24.1-36.2 Seconds High alert PTT 102.5 Result Comment: CRITICAL VALUE VERIFIED. CALLED TO BRAULIO KAPOOR 06/22/18 Marcus Jordan. RESULTS READ BACK BY SAME . Performed By: #### L300.4310 #### [facility] [address] [place], [address] TROPONIN-I Collected: 06/22/2018 Status: F Source: [place] 2:00 AM [facility] REPOSITORY Order Comment: 'TROP' Serial specimen #1, #2 or #3: 2 TYPE CODE TESTS RESULT OUT OF RANGE REFERENCE UNITS LAB L501.4010 <0.045 ng/mL Normal < 0.015 TROPONIN-I Result Comment: TROPONIN-I EXPECTED VALUES <0.045 Negative 0.045 - 0.590 Consistent with Cardiac Damage > OR = 0.600 Critical Value Not every elevated troponin is indicative of NH. These values should be used with clinical judgement in examining the patient's clinical picture for diagnosis. To establish a diagnosis of NH versus myocardial injury, there must be a demonstrated rise and/or fall in the troponin values, in addition to ischemic symptoms, EKG changes, new regional wall motion abnormality, and/or angiographical evidence. PLEASE NOTE: REFERENCE RANGES EDITED 18 Performed By: #### L501.4010 #### [facility] [address] [place], [place], [address] BEDSIDE GLUCOSE Collected: 06/21/2018 Status: F Source: [place] 10:57 PM [facility] REPOSITORY TYPE CODE TESTS RESULT OUT OF REFERENCE UNITS RANGE LAB L501.080 70-110 mg/dL High BEDSIDE GLU 219 Result Comment: MANAGEMENT OF PATIENT CARE PER NURSING PROTOCOL Performed By: #### L501.080 #### [facility] Point of Care [address] [facility] [address] [place], [place] [address] TROPONIN-I Collected: 06/21/2018 Status: F Source: [place] 8:30 PM [facility] REPOSITORY Order Comment: 'TROP' Serial specimen #1, #2 or #3: 1 TYPE CODE TESTS RESULT OUT OF RANGE REFERENCE UNITS LAB L501.4010 <0.045 ng/mL Normal 0.016 TROPONIN-I Result Comment: TROPONIN-I EXPECTED VALUES <0.045 Negative 0.045 - 0.590 Consistent with Cardiac Damage > OR = 0.600 Critical Value Not every elevated troponin is indicative of NH. These values should be used with clinical judgement in examining the patient's clinical picture for diagnosis. To establish a diagnosis of NH versus myocardial injury, there must be a demonstrated rise and/or fall in the troponin values, in addition to ischemic symptoms, EKG changes, new regional wall motion abnormality, and/or angiographical evidence. PLEASE NOTE: REFERENCE RANGES EDITED 18 Performed By: #### L501.4010 #### [facility] [address] [place], [address] HISTORY AND PHYSICAL Observed: 06/21/2018 Status: F Source: [place] EXAM 6:59 PM [facility] REPOSITORY [facility] Medical Records Department [address] [address] History and Physical 06/21/18 1836 MR#: [id number] Acct: [id number] Name: DALE SARABIA Rep #: [id number] : 1955 63 From: Isiah Cannon MD PCP: Sebastien Stahl MD Status: REG ER Y Location: ED Problem List (1) Left pulmonary artery PE Status: Acute (2) History of coronary artery stent placement Status: Resolved Comment: PCI to proximal LAD with overlapping 3.0 x 28 mm and 3.5 x 12 mm Vision bare metal stents w/ POBA ostial D1 05/24/2011 @ [facility] (3) CLARK (dyspnea on exertion) Status: Chronic (4) Atherosclerotic heart disease of [place] coronary artery without angina pectoris Status: Chronic Comment: PCI to proximal LAD with overlapping 3.0 x 28 mm and 3.5 x 12 mm Vision bare metal stents w/ POBA ostial D1 05/24/2011 (5) Palpitations Status: Chronic (6) History of renal cell cancer Status: Chronic (7) Benign prostatic hypertrophy Status: Chronic (8) Type II diabetes mellitus Status: Chronic (9) Hyperlipidemia Status: Chronic (10) Obesity Status: Chronic Qualifiers: (11) COPD (chronic obstructive pulmonary disease) Status: Chronic Qualifiers: (12) Obstructive sleep apnea Status: Chronic Comment: CPAP 13 cm of water (13) Hypothyroidism Status: Chronic (14) Status post right partial nephrectomy Status: Chronic (15) Hypertension Status: Chronic History of Present Illness Date of Admission: 06/21/18 Chief Complaint: Acute on chronic shortness of breath today and interscapular pain The patient is a 63 year old M morbidly obese with probable history of COPD, obstructive sleep apnea on CPAP and coronary artery disease with recent cath on last Friday with about 50% in-stent stenosis of proximal LAD with EF 60% with normal LV wall motion and systolic function came to ER with acute and chronic shortness of breath today. Patient has chronic shortness of breath and probable COPD and obstructive sleep apnea on CPAP. Patient follows Dr. Storey and Dr. solorio. Previously, he had PFT with Dr. Storey was told his PFT is good but he has about 15-20 pack years of smoking and chronic shortness of breath. Today, he suddenly felt intrascapular pain while worsening of shortness of breath and discharge. Interscapular back pain, lasted for about 10-15 minutes but still short of breath. In ED, EKG shows sinus tachycardia at 116 bpm with LAD. Vitals significant of tachycardia 114/min, pulse ox 93% on 4 L of oxygen. Patient had CT angiogram of chest which shows fairly discrete a small filling defect in distal left pulmonary artery, although reported as study likely inadequate for exclusion of PE. Patient creatinine is 1.64, BUN 19. Previous creatinine on 05/27/2018 was normal 1.21 with estimated creatinine clearance 64 mL/min. The patient was started on IV heparin drip. Past Medical History Past Medical History (Chronic Problems): Chronic Problems (Last Reviewed 06/19/18 @ 09:48 by MARYBEL BrownC) CLARK (dyspnea on exertion) (Chronic) 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) PCI to proximal LAD with overlapping 3.0 x 28 mm and 3.5 x 12 mm Vision bare metal stents w/ POBA ostial D1 05/24/2011 Palpitations (Chronic) History of renal cell cancer (Chronic) Benign prostatic hypertrophy (Chronic) Type II diabetes mellitus (Chronic) Hyperlipidemia (Chronic) Obesity (Chronic) COPD (chronic obstructive pulmonary disease) (Chronic) Obstructive sleep apnea (Chronic) CPAP 13 cm of water Hypothyroidism (Chronic) Status post right partial nephrectomy (Chronic) Hypertension (Chronic) Medical History: Medical History (Last Reviewed 06/19/18 @ 09:48 by Toma Morley, BILL ADJUSTER-C) 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) I25.10 PCI to proximal LAD with overlapping 3.0 x 28 mm and 3.5 x 12 mm Vision bare metal stents w/ POBA ostial D1 05/24/2011 Palpitations (Chronic) R00.2 History of renal cell cancer (Chronic) Z85.528 Benign prostatic hypertrophy (Chronic) N40.0 Type II diabetes mellitus (Chronic) E11.9 Hyperlipidemia (Chronic) E78.5 Obesity (Chronic) E66.9 COPD (chronic obstructive pulmonary disease) (Chronic) J44.9 Obstructive sleep apnea (Chronic) G47.33 CPAP 13 cm of water Hypothyroidism (Chronic) E03.9 Hypertension (Chronic) I10 Acute tear medial meniscus S83.249A Dyspnea R06.00 Instability of medial collateral ligament of knee M23.8X9 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 Meniscus degeneration M23.309 Nephrolithiasis N20.0 Precordial chest pain R07.2 Right elbow pain M25.521 Right knee pain M25.561 Rupture of right biceps tendon S46.211A Secondary polycythemia D75.1 Shortness of breath R06.02 Trochanteric bursitis, left hip M70.62 Asthma J45.909 Coronary artery disease I25.10 Depression F32.9 Osteoarthritis, knee M17.10 Sciatica M54.30 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) Z79.899 Allergies theophylline Allergy (Verified 06/16/18 09:39) Unknown Home Medications: Ambulatory Orders Medication Instructions Recorded Aspirin [Aspirin, Baby] 81 mg PO DAILY@0800 03/17/16 Tamsulosin HCl [Flomax] 0.4 mg PO DAILY 03/17/16 Surgical History: Surgical History (Last Reviewed 06/19/18 @ 09:48 by BRYAN Brown) History of coronary artery stent placement (Resolved) Onset Date: 05/24/11 Z95.5 PCI to proximal LAD with overlapping 3.0 x 28 mm and 3.5 x 12 mm Vision bare metal stents w/ POBA ostial D1 05/24/2011 @ [facility] Status post right partial nephrectomy (Chronic) H/O lithotripsy Z98.890 right 2011 History of tonsillectomy Z90.89 L eye surgery partial nephrectomy for renal cell cancer 07/2011 Surgical History: - - Cardiac stents him a right partial nephrectomy both in 2010 Psychiatric History: No pertinent psych hx Smoking Status: Former smoker - Quit in - *Family History Maternal Family History: Family History (Last Reviewed 06/19/18 @ 09:48 by BRYAN Brown) Mother CAD (coronary artery disease) History Items: No pertinent history Paternal Family History: Family History (Last Reviewed 06/19/18 @ 09:48 by BRYAN Brown) Mother CAD (coronary artery disease) History Items: No pertinent history, - - No history of clotting disorder in first-degree family relative Review of Systems Constitutional: Denies: Chills, Fever, Weight Change HEENT: Denies: Head Aches, Sinus Congestion, Sinus Drainage Cardiovascular: Reports: - - Interscapular back pain. Denies: Chest Pain, Palpitations Respiratory: Reports: Shortness of Breath, Shortness of breath upon exertion. Denies: Cough, Hemoptysis, Shortness of breath at rest, Sputum production Gastrointestinal: Denies: Abdominal Pain, Nausea, Vomiting Genitourinary: Denies: Dysuria Musculoskeletal: Denies: Joint Pain, Joint Tenderness Skin: Denies: Rash, Wounds Neurological: Denies: Numbness, Tingling, Focal weakness Psychiatric: Denies: Anxiety, Depression, Homicidal Ideations, Suicidal Ideations Hematologic/ Lymphatic: Denies: Easy Bruising, Easy Bleeding VTE Information - Inpt Only VTE Present on Admission: Yes VTE Mechan Device Prophylaxis: None Reason prophylaxis not ordered:: Procedure Not Indicated - On IV heparin drip Patient Problems: Active and Suspected Problems (Last Reviewed 06/19/18 @ 09:48 by BRYAN Brown) Left pulmonary artery PE (Acute) - Physical Exam General: Alert, Oriented x3, Cooperative, - - Morbid obese HEENT: Atraumatic, PERRLA, EOMI, Normocephalic Neck: Supple, No JVD, Negative Carotid Bruits Lungs: No rhonchi, No wheeze, No rales, Diminished, Short of Breath, - - Mild respiratory distress Cardiovascular: Regular rate, Regular Rhythm, Normal S1, Normal S2, No murmurs Abdomen: Bowel Sounds Present, Soft, Non Tender, Non-Distended Extremities: Capillary Refill Less than 3 Seconds, Edema Skin: No rashes, No breakdown Musculoskeletal: No Tenderness to Palpation of Joints or Extremities, Arthritic Changes Neurological: Cranial nerves II-XII grossly intact Psych/Mental Status: Normal Affect, Appropriate Vital Signs Temp Pulse Resp BP Pulse Ox 98.2 F 110 H 12 116/80 96 06/21/18 15:00 06/21/18 18:13 06/21/18 18:13 06/21/18 18:13 06/21/18 18:13 Oxygen Flow Rate (L/min) 2 Oxygen Delivery Method Nasal Cannula Weight: 285 lb 4.45 oz Body Mass Index (BMI) 42.1 Finger Stick Blood Glucose 202 Laboratory Tests Past 24 Hrs WBC RBC Hgb Hct MCV MCH MCHC RDW Assessment/Plan All Active Problems (Last Reviewed 06/19/18 @ 09:48 by Toma Morley, MYNOR-C) Left pulmonary artery PE (Acute) History of coronary artery stent placement (Resolved 05/24/11) Influenza A (Resolved) Other group home (current) 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 (Resolved) PNA (pneumonia) (Resolved) RLL pneumonia (Resolved) Sepsis (Resolved) The patient is a 63 year old M morbidly obese with probable history of COPD, obstructive sleep apnea on CPAP and coronary artery disease with recent cath on last Friday with about 50% in-stent stenosis of proximal LAD with EF 60% with normal LV wall motion and systolic function came to ER with acute and chronic shortness of breath today. Patient has chronic shortness of breath and probable COPD and obstructive sleep apnea on CPAP. Patient follows Dr. Storey and Dr. solorio. Previously, he had PFT with Dr. Storey was told his PFT is good but he has about 15-20 pack years of smoking and chronic shortness of breath. Today, he suddenly felt intrascapular pain while worsening of shortness of breath and discharge. Interscapular back pain, lasted for about 10-15 minutes but still short of breath. In ED, EKG shows sinus tachycardia at 116 bpm with LAD. Vitals significant of tachycardia 114/min, pulse ox 93% on 4 L of oxygen. Patient had CT angiogram of chest which shows fairly discrete a small filling defect in distal left pulmonary artery, although reported as study likely inadequate for exclusion of PE. Patient creatinine is 1.64, BUN 19. Previous creatinine on 05/27/2018 was normal 1.21 with estimated creatinine clearance 64 mL/min. 1. Acute small distal left pulmonary artery PE: Patient was started on IV heparin drip. Patient is being admitted in PCU on case monitor. As the kidney function improves, patient can be switched to oral apixaban. Lower extremity venous Doppler ordered. Patient denies first-degree family history of venous thromboembolism. 2. Acute kidney injury on CKD stage II; most rapidly contrast- induced nephropathy from recent cardiac cath and CT angiogram today: IV fluid normal saline. Monitor kidney function and electrolytes. 3. Pulmonary condition obstructive sleep apnea on CPAP and probable COPD: Bronchodilator as needed for shortness of breath. CPAP at night. Patient follows Dr. Storey. 4. Coronary artery disease with recent cardiac cath as mentioned above: Continue cardiac medications 5. Diabetes mellitus type 2: Patient glucose is 250 on BMP. Accu-Chek before meals and at bedtime and cover with NovoLog sliding scale. Hold metformin and other oral hypoglycemic agents. 6. Other chronic comorbidities include hypothyroidism, hypertension, BPH, history of renal cell cancer status post right partial nephrectomy and morbid obesity: Patient BMI is 42.1. Multiple comorbidities complicates the present care and expect difficult and delay recovery DVT prophylaxis: As mentioned above on IV heparin drip Laboratory Results 06/21/18 15:10: WBC 10.6, RBC 6.26 H, Hgb 11.9 L, Hct 42.0, MCV 67.1 L, MCH 19.0 L, MCHC 28.3 L, RDW 19.8 H, RDW Differential 47.4 H, Plt Count 238, MPV TNP, Immature Gran % (Auto) 0.100, Neut % (Auto) 70.2 H, Lymph % (Auto) 15.5 L, [place] % (Auto) 7.1, Eos % (Auto) 6.2 H, Baso % (Auto) 0.9, Absolute Neuts (auto) 7.4, Absolute Lymphs (auto) 1.64, Total Counted Not Reportable, Platelet Estimate ADEQUATE, Plt Morphology Comment LARGE, Polychromasia RARE, Hypochromasia 1+, Anisocytosis RARE, Microcytosis 1+, Ovalocytes RARE 06/21/18 15:10: PT 13.8, INR 1.1 06/21/18 15:10: Sodium 137, Potassium 3.7, Chloride 102, Carbon Dioxide 27.0, Anion Gap 8, BUN 19 H, Creatinine 1.64 H, Estim Creat Clear Calc 44.91, Est GFR (MDRD) Af Amer 54 L, Est GFR (MDRD) Non-Af 45 L, BUN/Creatinine Ratio 11.6, Glucose 250 H, Calcium 8.5, Troponin I 0.019 06/21/18 18:03: APTT 28.6 Clinical Impression(s) from Imaging Studies Chest X-Ray 06/21/18 15:28 IMPRESSION: No acute cardiopulmonary findings or changes. Chest CTA 06/21/18 15:35 IMPRESSION: Mild plaque in elongation of the thoracic aorta without aneurysm or dissection. Study is largely inadequate for exclusion of pulmonary embolus. However there is a fairly discrete small filling defect in the distal left pulmonary artery. Possible pulmonary embolus. Normal cardiac size without significant pericardial effusion. LAD coronary calcifications versus stent. Small nonspecific multifocal groundglass infiltrate in the anterior left upper lung. Chronic moderate elevation of the right diaphragm with chronic compressive changes at the right lung base. Code Visit Inpatient E AND M: [id number] Init Hosp L3 06/21/18 1859 <Electronically signed by Isiah Cannon MD> Date Isiah Cannon MD Cosigner Signature: Date (if applicable) CC: Isiah Cannon MD; Sebastien Stahl MD Signed EMERGENCY DEPARTMENT Observed: 06/21/2018 Status: F Source: [place] SUMMARY 6:38 PM [facility] REPOSITORY [facility] Medical Records Department [address] [address] Emergency Department Summary 06/21/18 1835 MR#: [id number] Acct: [id number] Name: DALE SARABIA Rep #: [id number] : 1955 63 From: Ronnie Riley MD PCP: Sebastien Stahl MD Status: REG ER - ER Visit Summary Date of Service: 06/21/18 Chief Complaint: Shortness of breath History of Present Illness: The patient is a 63 M who presents with shortness of breath. The patient has had some shortness of breath for a couple of months but it acutely worsened today particularly in the last couple of hours. He did have a cardiac catheterization 2 days ago. He complains of a mild nonproductive cough. He also complains of mid upper central back pain which is aching in nature rated as 4 out of 10. Physical Examination: Heart rate 117 pulse ox 90% on 2 L nasal cannula respiratory rate 31 Moist mucous membranes Heart regular rhythm tachycardia Lungs are clear without rales rhonchi wheezes Abdomen soft I am unable to easily palpate radial pulses but he does have symmetric Doppler signals at the radial pulses Alert Test Results: EKG shows sinus rhythm at a rate of 116. Labs notable for hemoglobin 11.9, BUN of 19 with creatinine 1.64, glucose 250. INR and PTT normal. Troponin normal. Chest x-ray shows no acute process. CTA of the chest shows no evidence of dissection but there is suggestion of distal left pulmonary artery pulmonary embolism. Emergency Department Course and Treatment: Both pulmonary embolism and aortic dissection are on this patient's differential. Given central mid back pain and difficulty palpating radial pulses with recent cardiac catheterization I had higher clinical concern for aortic dissection so the CTA of the chest was optimized for the aorta. This showed normal aorta but was concerning for pulmonary emboli. This certainly also fits with the patient's presentation of tachycardia shortness of breath and hypoxia. Given that he does have some renal insufficiency and also received a further dye load today we will treat with IV heparin rather than medications such subcutaneous Lovenox. Patient was discussed with the hospitalist and will be admitted for further management. Treatment Plan: [] Disposition: Admit Impression: Pulmonary embolism This note was generated with [employer] dictation software. It may contain incorrect words, spelling, and punctuation that were not noted in review of the chart prior to signing ED Disposition - Plan for ED Patient: Chief Complaint: Shortness of Breath Referrals: Sebastien Stahl MD [Primary Care Provider] - What to do if you have Problems For any increased pain, shortness of breath, bleeding, nausea or vomiting, chest pain, or any unexpected problems, contact your Primary Care Provider. Call [employer] [facility] ([phone]) or report to the closest Emergency Room. Call 911 if necessary. 06/21/18 1097 <Electronically signed by Ronnie Riley MD> Date Ronnie Riley MD Cosigner Signature (If Indicated): Date CC: Sebastien Stahl MD PARTIAL THROMBOPLAST Collected: 06/21/2018 Status: F Source: [place] TIME 6:03 PM [facility] REPOSITORY TYPE CODE TESTS RESULT OUT OF RANGE REFERENCE UNITS LAB L300.4310 24.1-36.2 Seconds Normal PTT 28.6 Performed By: #### L300.4310 #### [facility] [address] [place], [address] CTA ABDOMEN W/WO Observed: 06/21/2018 Status: F Source: [place] CONTRAST 3:40 PM [facility] REPOSITORY [facility] Imaging Services [address] [place] [address] CTA Abdomen W/WO Contrast MR#: [id number] Acct: [id number] Name: DALE SARABIA Rep #: [id number] : 1955 63 From: Claudette Mendoza MD PCP: Sebastien Stahl MD Status: ADM IN Study: CTA Abdomen W/WO Contrast Date of Exam: 06/21/18 Exam# [id number] Ordering Dr: Ronnie Riley MD STUDY: CTA OF THE ABDOMINAL AORTA AND BILATERAL LOWER EXTREMITIES REASON FOR EXAM: Male, 63 years old. Chest pain after recent cardiac catheterization. Evaluation for aortic dissection. RADIATION DOSAGE (If Supplied By Facility): CTDIvol = ( 16.06 ) mGy, DLP = ( 1129.39 ) mGycm TECHNIQUE: Axial CT angiography multi-detector data acquisition was obtained from the diaphragm to the pelvis following intravenous administration of 100ML ml of Isovue 370 contrast. Axial images and MIP images were reconstructed from the axial data set. Post-processing of the angiographic images was performed, with multiplanar reformation and 3D reconstruction. Individualized dose optimization techniques were used for this CT. TECHNICAL QUALITY: Good COMPARISON: None. Descriptors of Narrowing: None (0%) Mild (< 50%) Moderate (50-70%) Severe (70-90%) Subtotal/Total Occlusion (90-100%) Non-Evaluable (technically non-diagnostic FINDINGS: Abdominal aorta: Mild plaque of the abdominal aorta with tortuosity. Negative for aneurysm or dissection. Celiac and superior mesenteric arteries: No demonstrated narrowing. Inferior mesenteric artery: No demonstrated narrowing. Right renal artery(arteries): No demonstrated narrowing. Left renal artery(arteries): No demonstrated narrowing. Right common iliac artery: No demonstrated narrowing. Right external iliac artery: No demonstrated narrowing. Right internal iliac artery: No demonstrated narrowing. Left common iliac artery: No demonstrated narrowing. Left external iliac artery: No demonstrated narrowing. Left internal iliac artery: No demonstrated narrowing. Unremarkable liver, spleen, pancreas and a contracted gallbladder. No acute renal findings. No acute bowel related findings. IMPRESSION: Mild plaque and tortuosity of the abdominal aorta without aneurysm or dissection. Negative for significant arterial stenosis in the [id number]-[id number]. N.B. : The above information has been verbally conveyed by Claudette Mendoza MD to Dr. Ronnie Riley MD, on 06/21/2018 18:26:29 (ET). Electronically Signed: Claudette Mendoza MD at 17:32 EDT , Service support , STUDY: CTA CHEST REASON FOR EXAM: Male, 63 years old. Chest pain after cardiac catheterization. Evaluation for aortic aneurysm. This RADIATION DOSAGE (If Supplied By Facility): CTDIvol = ( ) mGy, DLP = ( ) mGycm TECHNIQUE: The examination was performed with the intravenous administration of 100ML ml of Isovue 370 contrast material. Post-processing of the angiographic images was performed, with multiplanar reformation and 3D reconstruction. Individualized dose optimization techniques were used for this CT. COMPARISON: None. FINDINGS: The study is really not adequate for evaluation of pulmonary embolus secondary to the fact that the contrast bolus is intentionally directed towards the arterial side. There is too much flow artifact in the pulmonary system to be certain. However, there appears to be a discrete filling defect in the distal left pulmonary artery that can't be ignored. Mild tortuosity and mild plaque of the thoracic aorta without aneurysm or dissection. Normal heart and pericardium. Coronary calcification versus stent, LAD. Normal mediastinum. Normal hilar regions. Normal visualized trachea and bronchi. There is a small peripheral groundglass infiltrate of the anterior left upper lobe. Mild elevation of the right diaphragm and mild compressive atelectatic changes at the right lung base. Negative for pleural effusion. Normal chest wall structures. There are degenerative changes of thoracic spine. CT/CTA Abdomen W/WO Contrast IMPRESSION: Mild plaque in elongation of the thoracic aorta without aneurysm or dissection. Study is largely inadequate for exclusion of pulmonary embolus. However there is a fairly discrete small filling defect in the distal left pulmonary artery. Possible pulmonary embolus. Normal cardiac size without significant pericardial effusion. LAD coronary calcifications versus stent. Small nonspecific multifocal groundglass infiltrate in the anterior left upper lung. Chronic moderate elevation of the right diaphragm with chronic compressive changes at the right lung base. N.B. : The above information has been verbally conveyed by Claudette Mendoza MD to Dr. Ronnie Riley MD, on 06/21/2018 18:26:29 (ET). Electronically Signed: Claudette Mendoza MD at 17:48 EDT , Service support , CC: Ronnie Riley MD; Sebastien Stahl MD Clay Puddler: Signed CTA CHEST W/WO Observed: 06/21/2018 Status: F Source: [place] CONTRAST 3:36 PM [facility] REPOSITORY [facility] [place] [address] CTA Chest W/WO Contrast MR#: [id number] Acct: [id number] Name: ADRIANDALE P Rep #: [id number] : 1955 M 63 From: Claudette Mendoza MD PCP: Sebastien Stahl MD Status: REG ER Study: CTA Chest W/WO Contrast Date of Exam: 06/21/18 Exam# [id number] Ordering Dr: Ronnie Riley MD STUDY: CTA OF THE ABDOMINAL AORTA AND BILATERAL LOWER EXTREMITIES REASON FOR EXAM: Male, 63 years old. Chest pain after recent cardiac catheterization. Evaluation for aortic dissection. RADIATION DOSAGE (If Supplied By Facility): CTDIvol = ( 16.06 ) mGy, DLP = ( 1129.39 ) mGycm TECHNIQUE: Axial CT angiography multi-detector data acquisition was obtained from the diaphragm to the pelvis following intravenous administration of 100ML ml of Isovue 370 contrast. Axial images and MIP images were reconstructed from the axial data set. Post-processing of the angiographic images was performed, with multiplanar reformation and 3D reconstruction. Individualized dose optimization techniques were used for this CT. TECHNICAL QUALITY: Good COMPARISON: None. Descriptors of Narrowing: None (0%) Mild (< 50%) Moderate (50-70%) Severe (70-90%) Subtotal/Total Occlusion (90-100%) Non-Evaluable (technically non-diagnostic FINDINGS: Abdominal aorta: Mild plaque of the abdominal aorta with tortuosity. Negative for aneurysm or dissection. Celiac and superior mesenteric arteries: No demonstrated narrowing. Inferior mesenteric artery: No demonstrated narrowing. Right renal artery(arteries): No demonstrated narrowing. Left renal artery(arteries): No demonstrated narrowing. Right common iliac artery: No demonstrated narrowing. Right external iliac artery: No demonstrated narrowing. Right internal iliac artery: No demonstrated narrowing. Left common iliac artery: No demonstrated narrowing. Left external iliac artery: No demonstrated narrowing. Left internal iliac artery: No demonstrated narrowing. Unremarkable liver, spleen, pancreas and a contracted gallbladder. No acute renal findings. No acute bowel related findings. IMPRESSION: Mild plaque and tortuosity of the abdominal aorta without aneurysm or dissection. Negative for significant arterial stenosis in the [id number]-ao-[id number]. N.B. : The above information has been verbally conveyed by Claudette Mendoza MD to Dr. Ronnie Riley MD, on 06/21/2018 18:26:29 (ET). Electronically Signed: Claudette Mendoza MD at 17:32 EDT , Service support , STUDY: CTA CHEST REASON FOR EXAM: Male, 63 years old. Chest pain after cardiac catheterization. Evaluation for aortic aneurysm. This RADIATION DOSAGE (If Supplied By Facility): CTDIvol = ( ) mGy, DLP = ( ) mGycm TECHNIQUE: The examination was performed with the intravenous administration of 100ML ml of Isovue 370 contrast material. Post-processing of the angiographic images was performed, with multiplanar reformation and 3D reconstruction. Individualized dose optimization techniques were used for this CT. COMPARISON: None. FINDINGS: The study is really not adequate for evaluation of pulmonary embolus secondary to the fact that the contrast bolus is intentionally directed towards the arterial side. There is too much flow artifact in the pulmonary system to be certain. However, there appears to be a discrete filling defect in the distal left pulmonary artery that can't be ignored. Mild tortuosity and mild plaque of the thoracic aorta without aneurysm or dissection. Normal heart and pericardium. Coronary calcification versus stent, LAD. Normal mediastinum. Normal hilar regions. Normal visualized trachea and bronchi. There is a small peripheral groundglass infiltrate of the anterior left upper lobe. Mild elevation of the right diaphragm and mild compressive atelectatic changes at the right lung base. Negative for pleural effusion. Normal chest wall structures. There are degenerative changes of thoracic spine. CT/CTA Chest W/WO Contrast IMPRESSION: Mild plaque in elongation of the thoracic aorta without aneurysm or dissection. Study is largely inadequate for exclusion of pulmonary embolus. However there is a fairly discrete small filling defect in the distal left pulmonary artery. Possible pulmonary embolus. Normal cardiac size without significant pericardial effusion. LAD coronary calcifications versus stent. Small nonspecific multifocal groundglass infiltrate in the anterior left upper lung. Chronic moderate elevation of the right diaphragm with chronic compressive changes at the right lung base. N.B. : The above information has been verbally conveyed by Claudette Mendoza MD to Dr. Ronnie Riley MD, on 06/21/2018 18:26:29 (ET). Electronically Signed: Claudette Mendoza MD at 17:48 EDT , Service support , CC: Ronnie Riley MD; Sebastien Stahl MD Clay Puddler: Signed CHEST 1 VIEW Observed: 06/21/2018 Status: F Source: [place] (PORTABLE) 3:29 PM [facility] REPOSITORY [facility] Imaging Services [address] [place] [address] Chest 1 View (Portable) MR#: [id number] Acct: [id number] Name: DALE SARABIA Rep #: [id number] : 1955 M 63 From: Claudette Mendoza MD PCP: Sebastien Stahl MD Status: PRE ER Study: Chest 1 View (Portable) Date of Exam: 06/21/18 Exam# [id number] Ordering Dr: Ronnie Riley MD STUDY: X-RAY CHEST REASON FOR EXAM: Male, 63 years old. Back pain and shortness of breath after cardiac catheterization. History of congestive heart failure, COPD and asthma. TECHNIQUE: Single AP portable view of the chest. COMPARISON: Prior chest radiograph of March 27, 2018 FINDINGS: Negative for pneumothorax, pneumomediastinum or subcutaneous emphysema. The lungs are clear and expanded. There is no demonstrated pleural abnormality. Normal size heart. Normal mediastinum and selina. Normal visualized pulmonary arteries. Normal visualized aortic arch and descending thoracic aorta. Normal visualized thoracic spine. Normal visualized ribs, clavicles, and shoulders. There is no demonstrated abnormality of the visualized soft tissue structures of the upper abdomen. RAD/Chest 1 View (Portable) IMPRESSION: No acute cardiopulmonary findings or changes. Electronically Signed: Claudette Mendoza MD at 15:42 EDT , Service support , CC: Ronnie Riley MD; Sebastien Stahl MD Clay Puddler: Signed CBC W/DIFF, AUTOMATED Collected: 06/21/2018 Status: F Source: [place] 3:10 PM [facility] REPOSITORY TYPE CODE TESTS RESULT OUT OF RANGE REFERENCE UNITS LAB L100.1000 4.4-11.0 K/mm3 10.6 Normal WBC LAB L100.1200 4.6-6.2 M/mm3 High 6.26 RBC LAB L100.1300 13.0-16.5 g/dl Low 11.9 HGB LAB L100.1400 40-54 % 42.0 Normal HCT LAB L100.1500 80-94 fL Low 67.1 MCV LAB L100.1600 27.0-32.0 pg Low 19.0 MCH LAB L100.1700 32-36 g/gl Low 28.3 MCHC LAB L100.1810 11.6-14.6 % High 19.8 RDW CV LAB L100.1820 35.1-43.9 fl High 47.4 RDW SD LAB L100.1900 150-450 K/mm3 238 Normal PLT LAB L100.2000 6.2-12.0 fl Test Normal MPV not performed LAB L100.2100 47-70 % High 70.2 NEUT% LAB L100.2200 19-41 % Low 15.5 LY% LAB L100.2300 0-10 % 7.1 Normal MONO% LAB L100.2400 0-5 % High 6.2 EO% LAB L100.2500 0-1 % 0.9 Normal BASO% LAB L100.2550 0.0-0.9 % 0.100 Normal IM GRAN % Result Comment: IG% - Immature Granulocytes (promyelocytes, myelocytes and metamyelocytes) > 1% indicates that a LEFT SHIFT is Present. LAB L100.2620 2.0-7.7 X10 3/uL Absolute Neut Normal 7.4 LAB L100.2720 0.83-4.51 X10 3/ul Absolute Lymph Normal 1.64 LAB L100.5500 ADEQ PLT EST Normal ADEQUATE LAB L100.5650 PLT MORPH Normal LARGE LAB L100.7300 ANISO Normal RARE LAB L100.7500 POLYCHROMASIA Normal RARE LAB L100.7600 HYPOCHROMASIA Normal 1+ LAB L100.7700 MICROCYTES Normal 1+ LAB L100.8200 OVALOCYTE Normal RARE Performed By: #### L100.0100 #### [facility] [address] [place], [address] PROTHROMBIN TIME W/INR Collected: 06/21/2018 Status: F Source: [place] 3:10 PM [facility] REPOSITORY TYPE CODE TESTS RESULT OUT OF RANGE REFERENCE UNITS LAB L300.4150 11.7-14.9 SECONDS Normal PROTIME 13.8 LAB L300.4200 Normal INR 1.1 Performed By: #### L300.3900 #### [facility] [address] [place], [address] BASIC METABOLIC Collected: 06/21/2018 Status: F Source: [place] PROFILE (BMP) 3:10 PM [facility] REPOSITORY TYPE CODE TESTS RESULT OUT OF RANGE REFERENCE UNITS LAB L501.0100 74-106 mg/dL High GLU 250 Result Comment: Glucose result greater than or equal to 200 mg/dL suggests DIABETES MELLITUS per A.D.A. criteria. Please note revised GLUCOSE reference range effective 2017. LAB L501.1000 7-18 mg/dL High BUN 19 LAB L501.1100 0.70-1.30 mg/dL High CREAT,SERUM 1.64 Result Comment: The validity of the calculated GFR AND GFRAA in patients over 70 years has not been determined. Clinical correlation is essential. LAB L501.1110 >60 mL/min Low EST GFR 45 Result Comment: Non- GFR Calc LAB L501.1115 >60 mL/min Low EST GFR - AA 54 Result Comment: GFR Calc LAB L501.1255 ml/min Normal Estimated CRCL 44.91 LAB L501.1300 10-20 RATIO Normal BUN/CRE 11.6 LAB L501.2200 8.5-10 mg/dL Normal .1 CA 8.5 LAB L501.5300 136-14 mmol/L Normal 5 NA 137 LAB L501.5600 3.5-5. mmol/L Normal 1 K 3.7 LAB L501.5900 98-107 mmol/L Normal CL 102 LAB L501.6100 21.0-3 mmol/L Normal 2.0 CO2 27.0 LAB L501.6200 5-15 Normal GAP 8 Performed By: #### L500.2500, L501.4010 #### [facility] [address] [place], [place], [address] TROPONIN-I Collected: 06/21/2018 Status: F Source: [place] 3:10 PM [facility] REPOSITORY TYPE CODE TESTS RESULT OUT OF RANGE REFERENCE UNITS LAB L501.4010 <0.045 ng/mL Normal 0.019 TROPONIN-I Result Comment: TROPONIN-I EXPECTED VALUES <0.045 Negative 0.045 - 0.590 Consistent with Cardiac Damage > OR = 0.600 Critical Value Not every elevated troponin is indicative of NH. These values should be used with clinical judgement in examining the patient's clinical picture for diagnosis. To establish a diagnosis of NH versus myocardial injury, there must be a demonstrated rise and/or fall in the troponin values, in addition to ischemic symptoms, EKG changes, new regional wall motion abnormality, and/or angiographical evidence. PLEASE NOTE: REFERENCE RANGES EDITED 18 Performed By: #### L500.2500, L501.4010 #### [facility] [address] [place], [address] BNP,B-TYPE NATRIURETIC Collected: 06/21/2018 Status: F Source: [place] PEPTIDE 3:10 PM [facility] REPOSITORY TYPE CODE TESTS RESULT OUT OF RANGE REFERENCE UNITS LAB L503.6620 0-100 pg/mL Normal B-TYPE 5.8 BRIE PEP Performed By: #### L503.6620 #### [facility] [address] [place], [address] PULMONARY VISIT REPORT Observed: 06/19/2018 Status: F Source: [place] 10:27 AM [facility] REPOSITORY [facility] [address] [place] [address] OFFICE VISIT Date of Service: 06/18/18 MR#: [id number] Acct: [id number] Name: DALE SARABIA Rep #: [id number] : 1955 Provider: Toma Morley Age/Sex: 63/M Location: [facility] Status: Signed Assessment AND Plan 1. Chronic obstructive pulmonary disease, unspecified COPD type J44.9 Plan Does not appear to be an exacerbation of COPD today. No need for prednisone or antibiotic. Continue current maintenance medication. No additional testing at this time. Contact the office for any new or worsening symptoms. An acute visit and typically be arranged within 1-2 days. Follow-up in 2 weeks. 2. RHINA (obstructive sleep apnea) G47.33 Plan Patient is using and benefiting from Pap therapy. No indication for titration study at this time. Continue to encourage weight loss. Contact the office for any new or worsening symptoms in the meantime. Follow-up in 2 weeks. 3. CLARK (dyspnea on exertion) R06.09 Plan Would like to see the results of the heart catheterization, follow-up in 2 weeks. 4. PND (post-nasal drip) R09.82 Plan New. Quite possibly the cause of the patient feeling as though there is something caught in his throat. Given a trial sample of Dymista. Follow-up in 2 weeks. The patient has been encouraged to contact the office to order the Dymista if he finds it to be effective over the next week. Plan Detail Other Medications New: albuterol sulfate HFA 90 mcg/actuation (Vento2 puffs Inhalation Q4H PRN shortness of jonathon brandin HFA) th or wheezing Follow Up 2 Weeks ([facility]) HPI HPI Comments Details: This patient presents the office today to follow- up on his worsening shortness of breath and to discuss recent test results. He is ambulatory, currently on room air and accompanied today by his . The patient states that upon further investigation of his shortness of breath, he followed up with cardiology and has a stress test planned for tomorrow. He continues to experience shortness of breath on exertion. He reports fatigue. He denies any cough, sputum production or hemoptysis. He reports hoarseness. He believes he is having some difficulty with swallow. He feels as though there is something stuck in my throat. He reports restless legs. He denies any chest pain, but does have some chest tightness occasionally with his shortness of breath. He reports some lower extremity edema. He has not experienced any fever, chills or body aches. See complete review of systems. He is compliant with Pap therapy every night. He denies any difficulties with mask fit. He denies snoring through the mask. He is not currently taking any naps. He is not expressing any nocturia. Pulmonary stress test completed on June 02, 2018 shows that the patient was able to ambulate 826 feet over the course of 6 minutes, he did not become hypoxic however he did become tachycardic with a high heart rate of 128 bpm during minute 6. No supplemental oxygen is indicated. Pulmonary function test completed on May 21, 2018 interpreted as showing a mild restrictive ventilatory defect with asymmetric reduction diffusing capacity, noted that there has been some worsening over the time. Since previous study. FVC 72% of predicted, FEV1 76% of predicted, FEV1/FVC 79% predicted, TLC 83% predicted, RV 92% predicted and DLCO 78% of predicted. Compliance report for the past 30 days was reviewed and shows 100% compliance, average use is 9 hours and 26 minutes. Current setting is 13 7 m of water. AHI is controlled with an average of 0.4 events per hour and leaks do not appear to be an issue. Intake Vital Signs06/18/18 Height 5 ft 9 in 06/18/18 Weight: 280 lb Intake Visit Reasons: 1 M FU [facility] Vendor: Maru Accompanied by: Allergies theophylline Allergy (Verified 06/16/18 09:39) Unknown Medications Aspirin [Aspirin, Baby] 81 mg PO DAILY@0800 03/17/16 [History Confirmed 06/18/18] Tamsulosin HCl [Flomax] 0.4 mg PO DAILY 03/17/16 [History Confirmed 06/18/18] budesonide-formoterol HFA 160 mcg-4.5 mcg/actuation aerosol inhaler 2 puff INHALATION Q12H 01/01/18 [History Confirmed 06/18/18] Metformin HCl 1,000 mg PO BREAKFAST 01/03/18 [History Confirmed 06/18/18] Metformin HCl 1,500 mg PO DINNER 01/03/18 [History Confirmed 06/18/18] Metoprolol Succinate [Toprol Xl] 25 mg PO DAILY 01/03/18 [History Confirmed 06/18/18] valsartan 80 mg-hydrochlorothiazide 12.5 mg tablet 1 tab PO DAILY 01/06/18 [History Confirmed 06/18/18] Furosemide 40 mg PO DAILY 03/27/18 [History Confirmed 06/18/18] Levothyroxine Sodium [Synthroid] 225 mcg PO DAILY 03/27/18 [History Confirmed 06/18/18] Testosterone [Androgel] 2 pump TD DAILY 03/27/18 [History Confirmed 06/18/18] clopidogrel 75 mg tablet 75 mg PO DAILY #30 tab 06/16/18 [Rx Confirmed 06/18/18] albuterol sulfate HFA 90 mcg/actuation aerosol inhaler 2 puff INHALATION Q4H PRN #18 g 06/18/18 [Rx Confirmed 06/18/18] PFSH Medical History 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) Palpitations (Chronic) History of renal cell cancer (Chronic) Benign prostatic hypertrophy (Chronic) Type II diabetes mellitus (Chronic) Hyperlipidemia (Chronic) Obesity (Chronic) COPD (chronic obstructive pulmonary disease) (Chronic) Obstructive sleep apnea (Chronic) Hypothyroidism (Chronic) Hypertension (Chronic) Acute tear medial meniscus (Acute) Dyspnea (Acute) Instability of medial collateral ligament of knee (Acute) 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) Nephrolithiasis (Acute) Precordial chest pain (Acute) Right elbow pain (Acute) Right knee pain (Acute) Rupture of right biceps tendon (Acute) Secondary polycythemia (Acute) Shortness of breath (Acute) Trochanteric bursitis, left hip (Acute) Asthma (Chronic) Coronary artery disease (Chronic) Depression (Chronic) Osteoarthritis, knee (Chronic) Sciatica (Chronic) 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) Surgical History History of coronary artery stent placement (Resolved 05/24/11) Status post right partial nephrectomy (Chronic) H/O lithotripsy (Resolved) History of tonsillectomy (Resolved) L eye surgery (Resolved) partial nephrectomy for renal cell cancer (Resolved) Family History Mother CAD (coronary artery disease) Social History Smoking Status: Former smoker quit date: 09/29/84 pack-years: 17 how long ago did patient quit smokin, 1.5/d second hand exposure: Yes alcohol intake: never substance use type: does not use Review of Systems Const CONSTITUTIONAL: Positive fatigue; negative anorexia, body ache, chills, daytime sleepiness, fever(s), night sweats, oral thrush, stops breathing during sleep, weight loss, sleeping in chair, weight loss, weight gain, frequent colds, seasonal allergies, other, headache(s) or orthopnea EETM Ear Nose Throat Mouth: Positive hearing normal, hoarseness, dry mouth in morning, nasal congestion and post nasal drip; negative hard of hearing, change in vision, itchy eyes, eye pain, swallowing Difficulty, ear pain, nose bleed, headache(s), mouth pain, nasal discharge, sinus pain, sinus pressure, sore throat or other Cardio Cardiovascular: Negative chest pain, chest pain at rest, chest pain with activity, irregular heart rhythm, edema, shortness of breath when lying down, palpitations, murmur or other Resp Respiratory: Positive as per HPI and shortness of breath shortness of breath: Positive with activity; negative pain with cough, wheezing, chest congestion, cough, chest tightness, pain on inspiration, inhalers, increase use of rescue inhalers, snoring, apnea or other Gastro Gastrointestional: Negative bloody stools, change in appetite, difficulty swallowing, reflux, hematemesis, melena stool, loose stool, constipation or other Genitourinary: Negative blood in urine, nocturia, pain with urination or other Musc Musculoskeletal: Negative body pain, back pain, neck pain or other Skin/Breast Skin/Breast: Negative dry skin, itching, rash, unusual bruising, breast lump or other Neuro Neurological: Positive restless legs; negative confusion, weakness or other Psych Psychocological: Positive abnormal sleep pattern; negative anxiety, thoughts of hurting self/others, hopelessness or other Lymph Lymphatic: Negative easy bleeding, easy bruising, swollen lymph nodes or other Exam Const Constitutional: Positive conversant, cooperative, in no acute respiratory distress, healthy appearing, well developed, well nourished, good hygiene and obese Head Head: Positive normocephalic and atraumatic; negative cyanosis of lips/distal nose Eyes Eye: Positive clear conjunctiva; negative nystagmus or scleral abnormality Ears Ear: Positive hearing normal and external ears normal; negative hard of hearing Nose Nose: Positive external nose normal and no nasal discharge; negative epistaxis Mouth Mouth: Positive post nasal drip, oral mucosae normal, no lesions, good dentition and crowded posterior oropharynx; negative malodorous breath or oral thrush present Mallampati Score: III: Mallampati Score Neck Neck: Positive normal visual inspection, full ROM, trachea midline, thick neck and male neck greater than 43 cm (17 in); negative lymphadenopathy, JVD or tender Chest Wall Chest: Positive normal inspection of the chest and symmetric chest movement; negative increased A/P diameter Resp lung sounds: Positive clear to auscultation, diminished, normal expiratory time and normal respiratory effort; negative wheezes, rhonchi, rales, dullness to percussion or wheeze present on forced exhalation Cardio Cardiac: Negative murmur, regular rate or regular rhythm GI GI: Positive normal to inspection and obese; negative distended Genitourinary: Positive deferred Musc Musculoskeletal: Positive steady gait and ROM normal; negative kyphosis or scoliosis Skin Pulmonary Skin Exam: Positive intact; negative rash Pulses Pulse: Yes pulses normal x4 extremities Extremities Extremities: Yes capillary refill normal, No clubbing, No cyanosis, Yes edema Location: lower extremity location: Bilateral pitting trace Neuro Neurologic: Yes conversant, Yes no focal neuro deficits, Yes normal concentration, Yes understands questions, Yes cooperative, Yes normal cognition, Yes normal coordination Lymph Lymphatic: No lymphadenopathy, No tenderness, No cervical adenopathy Psych Appearance: Positive grossly normal, eye contact and well kempt Mental Status: Positive mental status grossly normal Mood: Positive congruent mood Affect: Positive normal affect Coding Level of Care Code Off vis,est,level 4 Diagnoses Chronic obstructive pulmonary disease, unspecified COPD type J44.9 COPD type: unspecified COPD RHINA (obstructive sleep apnea) G47.33 CLARK (dyspnea on exertion) R06.09 PND (post-nasal drip) R09.82 06/19/18 1027 <Electronically signed by Toma ADAMS> Date Toma ADAMS Cosigner Signature: Date (if applicable) CC: Sebastien Stahl MD CARDIOLOGY VISIT Observed: 06/16/2018 Status: F Source: [facility] REPORT 10:04 AM [facility] REPOSITORY [facility] [address] [place] [address] OFFICE VISIT Date of Service: 06/16/18 MR#: [id number] Acct: [id number] Name: DALE SARABIA Rep #: [id number] : 1955 Provider: Rafael Solorio MD Age/Sex: 63/M Location: [facility] Status: Signed HPI HPI Chief Complaint: Shortness of breath. Details: DALE SARABIA, is a 63 M who presents to the office today for an evaluation of shortness of breath. He is a gentleman with a history of known coronary artery disease status post angioplasty and stenting of the left anterior descending artery and diagonal vessel. He presents with marked shortness of breath with activity. You do remember that in the past he had complained of this we had performed a natriuretic peptide level which was noted to be normal. He is also had some problems with dysphonia. He also has a history of polycythemia for which he has intermittent phlebotomy. He has had no neck arm or jaw discomfort suggest angina no dizziness or diaphoresis near syncope or syncope. He did have a stress test a few years ago which did not demonstrate any evidence of ischemia and then the heart catheterization did demonstrate the above in 2010. He is therefore hesitant to undergo the above. His last echocardiogram performed in February of this year demonstrated preserved ejection fraction with mild diastolic dysfunction. His physical exam demonstrates clear lung pierce regular rate and rhythm and no pedal edema his blood pressure is under good control. He does appear to be visibly dyspneic though. Intake Vital Signs09/18/18 Height 5 ft 9 in 06/16/18 Weight: 280 lb 06/16/18 Body Mass Index (BMI) 41.3 06/16/18 Blood Pressure 118/64 06/16/18 Blood Pressure Location Lt brachial Intake Visit Reasons: 6 M FU Reservations Clerk Required: No Accompanied by: none Is patient in pain?: No Allergies theophylline Allergy (Verified 06/16/18 09:39) Unknown Medications Aspirin [Aspirin, Baby] 81 mg PO DAILY@0800 03/17/16 [History Confirmed 06/16/18] Tamsulosin HCl [Flomax] 0.4 mg PO DAILY 03/17/16 [History Confirmed 06/16/18] budesonide-formoterol HFA 160 mcg-4.5 mcg/actuation aerosol inhaler 2 puff INHALATION Q12H 01/01/18 [History Confirmed 06/16/18] Metformin HCl 1,000 mg PO BREAKFAST 01/03/18 [History Confirmed 06/16/18] Metformin HCl 1,500 mg PO DINNER 01/03/18 [History Confirmed 06/16/18] Metoprolol Succinate [Toprol Xl] 25 mg PO DAILY 01/03/18 [History Confirmed 06/16/18] valsartan 80 mg-hydrochlorothiazide 12.5 mg tablet 1 tab PO DAILY 01/06/18 [History Confirmed 06/16/18] Furosemide 40 mg PO DAILY 03/27/18 [History Confirmed 06/16/18] Levothyroxine Sodium [Synthroid] 225 mcg PO DAILY 03/27/18 [History Confirmed 06/16/18] Testosterone [Androgel] 2 pump TD DAILY 03/27/18 [History Confirmed 05/19/18] [facility] Medical History CAD (coronary artery disease) (Chronic) 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) Palpitations (Chronic) History of renal cell cancer (Chronic) Benign prostatic hypertrophy (Chronic) Type II diabetes mellitus (Chronic) Hyperlipidemia (Chronic) Obesity (Chronic) COPD (chronic obstructive pulmonary disease) (Chronic) Obstructive sleep apnea (Chronic) Hypothyroidism (Chronic) Hypertension (Chronic) Acute tear medial meniscus (Acute) Dyspnea (Acute) Instability of medial collateral ligament of knee (Acute) 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) Nephrolithiasis (Acute) Precordial chest pain (Acute) Right elbow pain (Acute) Right knee pain (Acute) Rupture of right biceps tendon (Acute) Secondary polycythemia (Acute) Shortness of breath (Acute) Trochanteric bursitis, left hip (Acute) Asthma (Chronic) Coronary artery disease (Chronic) Depression (Chronic) Osteoarthritis, knee (Chronic) Sciatica (Chronic) 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) Surgical History Postsurgical percutaneous transluminal coronary angioplasty (PTCA) status (Chronic) Status post right partial nephrectomy (Chronic) H/O lithotripsy (Resolved) History of tonsillectomy (Resolved) L eye surgery (Resolved) partial nephrectomy for renal cell cancer (Resolved) Family History Mother CAD (coronary artery disease) Social History Smoking Status: Former smoker quit date: 09/29/84 pack-years: 17 how long ago did patient quit smokin, 1.5/d second hand exposure: Yes alcohol intake: never substance use type: does not use ROS Const Const: Negative for fatigue, weakness, night sweats, excessive sweating, frequent falls, headache(s) or daytime sleepiness Eyes Eyes: Negative for loss of peripheral vision, transient loss of vision, blind spots, double vision or blurry vision ENT ENT: Positive for dizziness (occasionally); negative for headache(s), balance problems, Nosebleed/epistaxis, tongue swelling or lip swelling Cardio Chest Pain: No Palpitations: No Edema: None Muscle aches with walking: None Resp Respiratory: Positive for SOB at rest and SOB with activity; negative for SOB orthopnea\SOB lying down, Cough or paroxysmal nocturnal dyspnea GI GI: Negative nausea, vomiting, heartburn, black,tarry stools or bright, red blood in stools : Negative for hematuria Musc Musc: Negative for balance problems, muscle aches/ myalgia, muscle weakness or joint pain Skin Skin: Negative non-healing lesions, unusual bruising or rash Neuro Neuro: Positive for dizziness (occasionally) and lightheadedness; negative for weakness, frequent falls, headache(s), double vision, orthostatic symptoms, blurry vision or lack of coordination Gilberto Hematologic/Lymphatic: Negative for easy bruising or easy bleeding Endo Endo: Negative for fatigue, excessive sweating, cold intolerance, heat intolerance, increased thirst/drinking or hair loss Psych Psych: Negative for anxiety or depression Allergy Allergy/Immunology: Negative for throat swelling, Negative for tongue swelling, Negative for hives, Negative for rash, Negative for lip swelling Cardiology Exam Const Appearance: cooperative, healthy appearing, well developed, well groomed and no acute distress Nutritional Appearance: well nourished and average body habitus Orientation: alert, awake and oriented x3 Head Head: normal to inspection, normocephalic and atraumatic Ears: hearing grossly normal bilaterally and external ears normal Nose: external nose normal, nasal mucous membranes and turbinates normal, nares normal, septum normal, no nasal discharge Face and Sinus: face symmetric Mouth: oral mucosae normal, tongue normal, oropharynx normal and moist mucous membranes Teeth and gingiva: dentition normal Throat: posterior oropharynx normal, tonsils normal and uvula midline Eyes General: appearance normal, both eyes and all related structures Eyelids: eyelids normal Conjunctivae: conjunctivae normal Pupils: PERRL, normal by confrontation and accommodation normal EOM: EOM intact bilaterally Neck Neck: normal visual inspection, trachea midline and no JVD JVD: +5 Carotids: normal carotid upstroke and bounding pulses Chest Chest inspection: normal inspection of the chest, symmetric chest movement and normal respiratory effort Auscultation: Bilateral: Clear to Auscultation Cardio Palpation: normal PMI Rate: regular rate Rhythm: regular rhythm Heart sounds: S1 normal, S2 normal and normal, physiologic split S2; negative rub, gallop or murmur GI GI: normal to inspection, soft, no hepatosplenomegaly and bowel sounds present Neuro General: alert, awake, oriented x3, no focal sensory deficit, gait normal and moves all extremities Skin Skin: no rashes or lesions noted Extremities Pulses: Normal: Right Femoral Pulse, Left Femoral Pulse, Right Dorsalis Pedis Pulse, Left Dorsalis Pedis Pulse, Right Posterior Tibial Pulse, Left Posterior Tibial Pulse, Right Radial Pulse, Left Radial Pulse Lower Extremity Edema: None: Bilateral Musculoskel Musculoskeletal: No joint tenderness Psych Psychological: normal affect Assessment AND Plan 1. CAD (coronary artery disease) I25.10 Plan He does have a history of coronary artery disease status post angioplasty and stenting of the left anterior descending artery in 2010. I wonder whether his dyspnea is a manifestation of progressive coronary artery disease. I have suggested to him that perhaps we should perform a left heart catheterization to exclude any obstructive coronary disease. An alternative would be a stress test but he prefers the former. The above could be performed via the radial approach risk benefits alternatives have been explained to him he understands agrees to proceed. Orders Orders: 2. CLARK (dyspnea on exertion) R06.09 Plan He does have dyspnea on exertion the etiology of which is not clear that this together with the dysphonia suggest to me that he may be having silent reflux. At some point it may not be an opportunity to image his chest. And neck CTA performed in 2017 was unremarkable. He may probably need a chest CTA at some point though. 3. Postsurgical percutaneous transluminal coronary angioplasty (PTCA) status Z98.61 05/22/11, PTCA/stent X 2 to LAD Plan He is status post previous angioplasty and stenting of the left anterior descending artery I would recommend that we reevaluate his coronary anatomy with a left heart catheterization. 4. Hypertension I10 Plan His blood pressure remains under excellent control and I do not think that this is contributing to his shortness of breath. He will remain on the valsartan hydrochlorothiazide as well as the beta-darius. 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) Coding Level of Care Code Off vis,est,level 4 Diagnoses CAD (coronary artery disease) I25.10 CLARK (dyspnea on exertion) R06.09 Postsurgical percutaneous transluminal coronary angioplasty (PTCA) status Z98.61 Hypertension I10 Coding Level of Care Code Off vis,est,level 4 Diagnoses CAD (coronary artery disease) I25.10 CLARK (dyspnea on exertion) R06.09 Postsurgical percutaneous transluminal coronary angioplasty (PTCA) status Z98.61 Hypertension I10 06/16/18 1004 <Electronically signed by Rafael Solorio MD> Date Rafael Solorio MD Cosigner Signature: Date (if applicable) CC: Sebastien Stahl MD 12 LEAD EKG PERFORMED Observed: 06/16/2018 Status: F Source: [facility] 10:03 AM [facility] REPOSITORY [facility] [address] [place] [address] 12 Lead EKG performed by [facility] 06/16/18 1002 MR#: [id number] Acct: [id number] Name: DALE SARABIA Rep #: [id number] : 1955 63 From: Rafael Solorio MD Attending Dr: Rafael Solorio MD Status: DEP AMB Ordering Dr: Rafael Solorio MD Date: 06/16/18 Location: [facility] Sex: M C Admitted: BMS/12 Lead EKG performed by [facility] ECG Report Interpretation Sinus Tachycardia -Left axis -anterior fascicular block. Low voltage with rightward P-axis and rotation -possible pulmonary disease. ABNORMAL Electronically signed on 09/02/2018 at 16:36 by Rafael Solorio [employer] Version [id number] 09/02/18 1640 Date Rafael Solorio MD CC: Sebastien Stahl MD Date Dictated: 06/16/18 1002 Date Transcribed: 06/16/18 1002 Clay Puddler: CO Signed CBC-COMPLETE BLOOD CNT Collected: 06/10/2018 Status: F Source: [facility] NO DIFF 10:41 AM [facility] REPOSITORY TYPE CODE TESTS RESULT OUT OF RANGE REFERENCE UNITS LAB L100.1000 4.4-11.0 K/mm3 Normal WBC 6.7 LAB L100.1200 4.6-6.2 M/mm3 High RBC 6.61 LAB L100.1300 13.0-16.5 g/dl Low HGB 12.5 LAB L100.1400 40-54 % Normal HCT 45.1 LAB L100.1500 80-94 fL Low MCV 68.2 LAB L100.1600 27.0-32.0 pg Low MCH 18.9 LAB L100.1700 32-36 g/gl Low MCHC 27.7 LAB L100.1810 11.6-14.6 % High RDW CV 20.5 LAB L100.1820 35.1-43.9 fl High RDW SD 49.1 LAB L100.1900 150-450 K/mm3 Normal PLT 200 Performed By: #### L100.0500, L100.4500 #### [facility] [address] [place], [address] DIFFERENTIAL COMMENT Collected: 06/10/2018 Status: F Source: [facility] 10:41 AM [facility] REPOSITORY TYPE CODE TESTS RESULT OUT OF RANGE REFERENCE UNITS LAB L100.4500 Normal SMEAR COMMENT COMMENT Result Comment: SLIDE SCANNED - 1+ ANISO, 1+ LARGE PLTS. Performed By: #### L100.0500, L100.4500 #### [facility] [address] [place], [address] THYROID STIM HORMONE Collected: 06/10/2018 Status: F Source: [facility] ([facility]) 10:41 AM [facility] REPOSITORY Order Comment: Has Patient had X-rays with Contrast this admission? N Is Patient on Heparin? N TYPE CODE TESTS RESULT OUT OF RANGE REFERENCE UNITS LAB L501.9520 0.358-3.74 uIU/mL Normal TSH 0.70 Performed By: #### L501.9520, L503.6550, L506.0400 #### [facility] [address] [place], [address] FERRITIN Collected: 06/10/2018 Status: F Source: [facility] 10:41 AM [facility] REPOS[facility] Order Comment: Has Patient had X-rays with Contrast this admission? N Is Patient on Heparin? N TYPE CODE TESTS RESULT OUT OF REFERENCE UNITS RANGE LAB L503.6550 26-388 ng/mL Low FERRITIN 10 Performed By: #### L501.9520, L503.6550, L506.0400 #### [facility] [address] [place], [address] T4 FREE DIRECT Collected: 06/10/2018 Status: F Source: [facility] 10:41 AM [facility] RE[facility] Order Comment: Has Patient had X-rays with Contrast this admission? N Is Patient on Heparin? N TYPE CODE TESTS RESULT OUT OF RANGE REFERENCE UNITS LAB L506.0400 0.76-1.46 ng/dL Normal T4 FREE 1.18 DIRECT Performed By: #### L501.9520, L503.6550, L506.0400 #### [facility] [address] [place], [address] 6 MINUTE WALK TEST Observed: 06/02/2018 Status: F Source: [facility] 12:23 PM [facility] REPOSITORY [facility] Pul[facility] Services/Neurology [address] [address] MR#: [id number] Acct: [id number] Name: DALE SARABIA Rep #: [id number] : 1955 63 From: Morales Storey MD Referring Dr: Mino Ramos D.O. Date: Ordering Dr: Sex: M C Location: PSN PSN 6 Minute Walk Test - 6 Minute Walk Test 6 Minute Walk Test: 6 Minute Walk Test PSN:6-Minute Walk Test Start: 06/02/18 08:41 Freq: Status: Active Protocol: RESP.6MINW Document 06/02/18 08:42 JLA (Rec: 06/02/18 08:47 JLA [id number]) 6 Minute Walk Test Date Performed 06/02/18 Time Performed 08:30 Height 5 ft 9 in Weight: 127.913 kg Weight in Pounds 282.[address]: Mino Ramos Assistive device used: None Pre-test Oxygen Delivery Method Room Air Pulse Ox (%) 94 Pulse Rate (60-100 beats/min) 95 Dyspnea Afua Scale (0-10) 2 Exertion Afua Scale (6-20) 6 1st minute Oxygen Delivery Method Room Air Pulse Ox (%) 94 Pulse Rate (60-100 beats/min) 113 H 2nd minute Oxygen Delivery Method Room Air Pulse Ox (%) 93 Pulse Rate (60-100 beats/min) 123 H 3rd minute Oxygen Delivery Method Room Air Pulse Ox (%) 93 Pulse Rate (60-100 beats/min) 124 H 4th minute Oxygen Delivery Method Room Air Pulse Ox (%) 92 Pulse Rate (60-100 beats/min) 127 H 5th minute Oxygen Delivery Method Room Air Pulse Ox (%) 93 Pulse Rate (60-100 beats/min) 106 H Number of Rests Taken 1 6th minute Oxygen Delivery Method Room Air Pulse Ox (%) 92 Pulse Rate (60-100 beats/min) 128 H Dyspnea Afua Scale (0-10) 3 Exertion Afua Scale (6-20) 11 Post-test Oxygen Delivery Method Room Air Pulse Ox (%) 95 Pulse Rate (60-100 beats/min) 97 Full Laps Walked 14 Partial Lap, Number of Tiles Walked 0 Total Distance Walked (ft) 826 - Interpretation Interpretation: The patient was able to ambulate 826 feet over the course of 6 minutes on room air with no assistive devices, but one break. The patient did not have significant desaturation, but did have tachycardia as high as 128 bpm. These findings are consistent with a cardiovascular limitation exercise tolerance. - Recommendations Recommendations: No supplemental oxygen is indicated at this time. 06/02/18 1223 <Electronically signed by Morales Storey MD> Date Morales Storey MD CC: Date Dictated: 06/02/18 1222 Date Transcribed: 06/02/181221 Clay Puddler: Morales Storey Signed URINALYSIS, EMPLOYEE Collected: 05/27/2018 Status: F Source: [facility] 10:18 AM [facility] REPOSIT[facility] TYPE CODE TESTS RESULT OUT OF RANGE REFERENCE UNITS LAB L400.3000 Yellow COLOR Normal Yellow LAB L400.3050 Clear Normal CLARITY Clear LAB L400.3200 Normal mg/dl Normal GLUCOSE, UR Normal LAB L400.3300 Negative mg/dL Normal BILIRUBIN URINE Negative LAB L400.3400 Negative mg/dl Normal KETONE UR Negative LAB L400.3465 1.002-1.030 Normal SP.GR. DIPSTX 1.010 LAB L400.3550 5.0 - 8.0 pH UR Normal 7.0 LAB L400.3600 Negative mg/dl PROT Normal DIPSTX Negative LAB L400.3700 Normal mg/dl Normal UROBILI Normal LAB L400.3750 Negative Normal NITRITE UR Negative LAB L400.3780 Negative /ul Normal OCCULT BLOOD-UR Negative LAB L400.3800 Negative /ul LEUK Normal ESTERASE Negative Performed By: #### L400.0100 #### [facility] [address] [place], [place], [id number] CBC, EMPLOYEE Collected: 05/27/2018 Status: F Source: [place] 10:18 AM [facility] REPOSITORY TYPE CODE TESTS RESULT OUT OF RANGE REFERENCE UNITS LAB L100.1000 4.4-11.0 K/mm3 Normal WBC 7.1 LAB L100.1200 4.6-6.2 M/mm3 High RBC 6.32 LAB L100.1300 13.0-16.5 g/dl Low HGB 11.9 LAB L100.1400 40-54 % Normal HCT 42.8 LAB L100.1500 80-94 fL Low MCV 67.7 LAB L100.1600 27.0-32.0 pg Low MCH 18.8 LAB L100.1700 32-36 g/gl Low MCHC 27.8 LAB L100.1810 11.6-14.6 % High RDW CV 21.0 LAB L100.1820 35.1-43.9 fl High RDW SD 50.3 LAB L100.1900 150-450 K/mm3 Normal PLT 231 LAB L100.2110 47-70 % Normal NEUT% 56.8 LAB L100.2210 19-41 % Normal LY% 25.4 LAB L100.2310 0-10 % Normal MONO% 8.4 LAB L100.2410 0-5 % High EO% 7.7 LAB L100.2510 0-1 % High BASO% 1.7 LAB L100.2620 2.0-7.7 X10 3/uL Normal Absolute Neut 4.0 LAB L100.2720 0.83-4.51 X10 3/ul Normal Absolute Lymph 1.79 Performed By: #### L100.0200 #### [facility] [address] [place], [place], [id number] EMPLOYEE PROFILE Collected: 05/27/2018 Status: F Source: [place] 10:18 AM [facility] REPOSITORY TYPE CODE TESTS RESULT OUT OF RANGE REFERENCE UNITS LAB L501.0100 74-106 mg/dL High GLU 139 Result Comment: Fasting Glucose result greater than or equal to 126 mg/dL suggests DIABETES MELLITUS per A.D.A. criteria. Please note revised GLUCOSE reference range effective 2017. LAB L501.1000 7-18 mg/dL Normal BUN 18 LAB L501.1100 0.70-1.30 mg/dL Normal CREAT,SERUM 1.21 Result Comment: The validity of the calculated GFR AND GFRAA in patients over 70 years has not been determined. Clinical correlation is essential. LAB L501.1110 >60 mL/min Normal EST GFR 64 Result Comment: Non- GFR Calc LAB L501.1115 >60 mL/min Normal EST GFR - AA 77 Result Comment: GFR Calc LAB L501.1300 10-20 RATIO Normal BUN/CRE 14.9 LAB L501.1400 3.5-7.2 mg/dL High URIC 7.7 Result Comment: The drugs N-Acetylcysteine and Metamizole may falsely depress this assay. LAB L501.1500 6.4-8.2 g/dL Normal T PROT 7.1 LAB L501.1800 3.2-5.0 g/dL Normal ALB 3.8 LAB L501.1950 2.2-4.2 g/dL Normal GLOB 3.3 LAB L501.2000 0.9-2.4 RATIO Normal A/G 1.2 LAB L501.2200 8.5-10.1 mg/dL Normal CA 8.9 LAB L501.2300 2.5-4.9 mg/dL Normal PHOS 2.8 LAB L501.4100 15-37 U/L Normal AST 19 LAB L501.4305 45-117 U/L Normal ALK P 64 LAB L501.4405 16-61 U/L Normal ALT 34 LAB L501.4600 0.20-1.00 mg/dL Normal T BILI 0.80 LAB L501.4700 0.00-0.30 mg/dL Normal D BILI 0.21 LAB L501.4900 200 mg/dL Normal CHOL 133 Result Comment: <200 mg/dL Desirable 200-240 mg/dL Borderline >240 mg/dL High Risk LAB L501.5000 mg/dL Normal TRIG 166 Result Comment: The drugs N-Acetylcysteine and Metamizole may falsely depress this assay. Serum Triglycerides Reference Interval Normal <150 mg/dL Borderline high 150 - 199 mg/dL High 200 - 499 mg/dL Very High > or = 500 mg/dL LAB L501.5300 136-145 mmol/L Normal NA 139 LAB L501.5600 3.5-5.1 mmol/L Normal K 3.9 LAB L501.5900 98-107 mmol/L Normal CL 103 LAB L501.6100 21.0-32.0 mmol/L Normal CO2 25.0 LAB L501.6200 5-15 Normal GAP 11 LAB L501.6400 mg/dL Low HDL 31 Result Comment: The drugs N-Acetylcysteine and Metamizole may falsely depress this assay. Reference Range HDL <40 mg/dL Low HDL Cholesterol HDL >or= 60 mg/dL High HDL Cholesterol LAB L501.6475 Normal CHOL:HDL 4.30 LAB L501.6500 0-130 mg/dL Normal LDL 69 LAB L501.6600 5-40 mg/dL Normal VLDL 33 LAB L504.2610 87-241 U/L Normal LDH 174 Performed By: #### L500.2900 #### [facility] [address] [place], [place], [address] NICOTINE URINE DRUG Collected: 05/27/2018 Status: F Source: [place] SCREEN 10:18 AM [facility] REPOSITORY TYPE CODE TESTS RESULT OUT OF RANGE REFERENCE UNITS LAB L505.6250 TO BE Normal CONFIRMED Result Comment: CONFIRMATORY TESTING FOR ALL POSITIVE URINE DRUG SCREEN RESULTS WILL ONLY BE SENT OUT UPON PHYSICIAN ORDER. The results of Urine Drug Screen methods provide only preliminary analytical test results. A more specific alternate chemical method must be used in order to obtain a confirmed analytical result. Gas chromatography/mass spectrometery (GC/MS) is the preferred confirmatory method. Clinical consideration and professional judgement should be applied to any drug of abuse test result, particularly when preliminary positive results are used. LAB L505.6270 <200 ng/mL Normal COT DRG Negative SCREEN Result Comment: Cotinine is the first-stage metabolite of Nicotine. Performed By: #### L505.6240 #### [facility] [address] [place], [address] HEP B SURFACE Collected: 05/27/2018 Status: F Source: [place] ANTIBODIES E[place] 10:18 AM [facility] REPOSITORY Order Comment: SEND RESULTS TO [facility] [id number] TYPE CODE TESTS RESULT OUT OF RANGE REFERENCE UNITS LAB L3100.0537 . Normal Hep B Reactive Del AB Result Comment: Non Reactive: Inconsistent with immunity, less than 10 mIU/mL Reactive: Consistent with immunity, greater than 9.9 mIU/mL Performed at: - [facility] [address] [id number] Site Interpreter: Andrew Gorman PhD, Phone: [phone] Performed By: #### L3100.0537 #### [facility] (refer to report for specific site) refer to report for address and phone number PULMONARY FUNCTION Observed: 05/21/2018 Status: F Source: [place] REPORT COMP 11:24 AM [facility] REPOSITORY [facility] Pulmonary Services/Neurology [address] [place] [address] MR#: [id number] Acct: [id number] Name: DALE SARABIA Rep #: [id number] : 1955 63 From: Morales Storey MD Referring Dr: Mino Ramos D.O. Status: REG CLI Ordering Dr: Date: Location: [facility] Sex: M C COMPLETE PULMONARY FUNCTION TEST INTERPRETATION Brief HPI: Patient is a 63 year old male, currently under the care of Dr. Ramos, who presents to [facility] for complete pulmonary function tests secondary to diagnosis of COPD. Respiratory therapist reports good effort and reproducible results. Interpretation: Forced expiration spirometry shows no large airways obstructive ventilatory defect with an FEV1 of 76% predicted. There is no significant bronchodilator response by ATS criteria. Spirograms are of good quality and plateau slowly, indicating slowly emptying areas of the lungs. The respiratory flow volume loop shows a normal pattern. Lung volumes by body plethysmography show a decreased total lung capacity at 5.26 L, 83% predicted. All other lung volumes are reduced symmetrically. Diffusion capacity by carbon monoxide is at the lower limit of normal at 78% predicted. The airway resistance is normal. Compared to previous pulmonary function tests from 05/28/2016, there has been a significant change in DLCO by 20%. Impression: Mild restrictive ventilatory defect with a symmetric reduction diffusing capacity. There has been worsening compared to previous study 05/21/18 1124 <Electronically signed by Morales Storey MD> Date Morales Storey MD CC: Morales Storey MD; Mino Ramos D.O.; Sebastien Stahl MD Date Dictated: 05/21/18 1121 Date Transcribed: 05/21/181120 Clay Puddler: JOHN Signed PULMONARY VISIT REPORT Observed: 05/19/2018 Status: F Source: [place] 2:43 PM [facility] REPOSITORY [facility] [address] [place] [address] OFFICE VISIT Date of Service: 05/19/18 MR#: [id number] Acct: [id number] Name: DALE SARABIA Rep #: [id number] : 1955 Provider: Toma Morley Age/Sex: 63/M Location: [facility] Status: Signed Assessment AND Plan 1. Chronic obstructive pulmonary disease, unspecified COPD type J44.9 Plan He does not appear to be in exacerbation of his COPD today, but given that his symptoms of shortness of breath have worsened a further workup is necessary. Plan to repeat pulmonary function test and a pulmonary stress test given that it has been 2 years since they were last completed and his symptoms are acutely worse. Plan to follow- up in the next 2-3 weeks to discuss test results and continue to develop a plan. In the meantime, continue current maintenance medications. No antibiotics or prednisone at this time, pending test results. Orders Orders: 2. RHINA (obstructive sleep apnea) G47.33 Plan Patient is using and benefiting from Pap therapy. No indication for titration study at this time. Continue to encourage weight loss. Contact the office for any new or worsening symptoms in the meantime. Follow-up in 3 weeks. 3. Class 3 severe obesity due to excess calories with serious comorbidity and body mass index (BMI) of 40.0 to 44.9 in adult E66.01; Z68.41 Plan Continue to encourage weight loss. The patient has been successful at losing several pounds, keep up the good work. 4. CLARK (dyspnea on exertion) R06.09 Plan Deteriorated. Further workup pending. We will continue to develop a plan once initial tests have returned. discussed the impact of the most recent echocardiogram, showing stage I diastolic dysfunction, with regard to his sodium intake and discourage the patient from eating any added salt. Also encouraged him to be a good label reader and avoid high sodium foods. He conveys understanding and is agreeable. 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 Follow-up in 2 weeks. Plan Detail Follow Up 3 Weeks ([facility]) HPI Acute: Chief Complaint: Shortness of breath HPI Comments Details: Does express chest tightness/wheezing. he says he has a rattle in his chest in the morning but goes away as the morning goes on. Symbicort used but does not use a rescue inhaler. When patient is exhaling he pushes extra hard and noted a high pitch whistle during intake. Wears Cpap having no issues except having to get up a few times a night for breathing difficulties. This patient reports to the office to follow up on his COPD and RHINA. He is ambulatory and on room air. He is accompanied today by his . He has not been seen in the ED or urgent care recently for any respiratory illnesses, he has not required any antibiotics or prednisone for breathing problems since December. He has noticed a worsening shortness of breath over the past several weeks. He admits that yesterday he had to stop two times while walking into work to catch his breath, in a short distance. Yesterday his shortness of breath was the worst. He also admits to eating pizza and hot dogs on Friday, he typically avoids salt intake but this was a special occasion and he was at a democrat. He is also experiencing wheezing and chest tightness. He reports a rattle in his chest in the morning and goes away throughout the day. He denies any fever, chills, body aches, chest pain or palpitations. He has not experienced any hemoptysis. He does report some minimal lower extremity edema, which is common for him. He has not felt the need to use his rescue inhaler. He is compliant with Symbicort BID. He rinses his mouth after each use and denies any medication side effects such as sore throat or thrush. He reports that he wears his CPAP nightly. He denies any difficulties with the CPAP, he does feel rested in the morning. He denies any difficulty with nocturia or dry mouth. Complaints report for the past 30 days was reviewed and shows that the patient has been 100% compliance with an average use of 9 hours, almost 10 hours nightly. Current setting is 13 cm of water, current AHI is an average of 0.3 events per hour and leaks do not appear to be an issue. Intake Vital Signs05/19/18 Height 5 ft 8 in 05/19/18 Weight: 283 lb Intake Visit Reasons: Acute DME Vendor: [employer] Accompanied by: Allergies theophylline Allergy (Verified 05/19/18 09:53) Unknown Medications Aspirin [Aspirin, Baby] 81 mg PO DAILY@0800 03/17/16 [History Confirmed 05/19/18] Tamsulosin HCl [Flomax] 0.4 mg PO DAILY 03/17/16 [History Confirmed 05/19/18] budesonide-formoterol HFA 160 mcg-4.5 mcg/actuation aerosol inhaler 2 puff INHALATION Q12H 01/01/18 [History Confirmed 05/19/18] Metformin HCl 1,000 mg PO BREAKFAST 01/03/18 [History Confirmed 05/19/18] Metformin HCl 1,500 mg PO DINNER 01/03/18 [History Confirmed 05/19/18] Metoprolol Succinate [Toprol Xl] 25 mg PO DAILY 01/03/18 [History Confirmed 05/19/18] valsartan 80 mg-hydrochlorothiazide 12.5 mg tablet 1 tab PO DAILY 01/06/18 [History Confirmed 05/19/18] Furosemide 40 mg PO DAILY 03/27/18 [History Confirmed 05/19/18] Levothyroxine Sodium [Synthroid] 225 mcg PO DAILY 03/27/18 [History Confirmed 05/19/18] Testosterone [Androgel] 2 pump TD DAILY 03/27/18 [History Confirmed 05/19/18] Meclizine HCl [Antivert] 25 mg PO TID PRN PRN #20 tab 03/28/18 [Rx Confirmed 05/19/18] PFSH Medical History 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) Palpitations (Chronic) 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) History of renal cell cancer (Chronic) Benign prostatic hypertrophy (Chronic) Type II diabetes mellitus (Chronic) Hyperlipidemia (Chronic) Obesity (Chronic) COPD (chronic obstructive pulmonary disease) (Chronic) Obstructive sleep apnea (Chronic) Hypothyroidism (Chronic) Hypertension (Chronic) Acute tear medial meniscus (Acute) Dyspnea (Acute) Instability of medial collateral ligament of knee (Acute) 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) Nephrolithiasis (Acute) Precordial chest pain (Acute) Right elbow pain (Acute) Right knee pain (Acute) Rupture of right biceps tendon (Acute) Secondary polycythemia (Acute) Shortness of breath (Acute) Trochanteric bursitis, left hip (Acute) Asthma (Chronic) Coronary artery disease (Chronic) Depression (Chronic) Osteoarthritis, knee (Chronic) Sciatica (Chronic) Surgical History Postsurgical percutaneous transluminal coronary angioplasty (PTCA) status (Chronic) Status post right partial nephrectomy (Chronic) H/O lithotripsy (Resolved) History of tonsillectomy (Resolved) L eye surgery (Resolved) partial nephrectomy for renal cell cancer (Resolved) Family History Mother CAD (coronary artery disease) Social History Smoking Status: Former smoker quit date: 09/29/84 pack-years: 17 how long ago did patient quit smokin, 1.5/d second hand exposure: Yes alcohol intake: never substance use type: does not use Review of Systems Const CONSTITUTIONAL: Negative anorexia, body ache, chills, daytime sleepiness, fever(s), night sweats, oral thrush, stops breathing during sleep, weight loss, sleeping in chair, fatigue, weight loss, weight gain, frequent colds, seasonal allergies, other, headache(s) or orthopnea EETM Ear Nose Throat Mouth: Positive hearing normal; negative hard of hearing, hoarseness, dry mouth in morning, change in vision, itchy eyes, eye pain, swallowing Difficulty, ear pain, nose bleed, headache(s), mouth pain, nasal congestion, nasal discharge, post nasal drip, sinus pain, sinus pressure, sore throat or other Cardio Cardiovascular: Negative chest pain, chest pain at rest, chest pain with activity, irregular heart rhythm, edema, shortness of breath when lying down, palpitations, murmur or other Resp Respiratory: Positive as per HPI, shortness of breath shortness of breath: Positive with activity, worsening, while talking and lying down, wheezing and chest tightness; negative pain with cough, chest congestion, cough, pain on inspiration, inhalers, increase use of rescue inhalers, snoring, apnea or other Gastro Gastrointestional: Negative bloody stools, change in appetite, difficulty swallowing, reflux, hematemesis, melena stool, loose stool, constipation or other Genitourinary: Negative blood in urine, nocturia, pain with urination or other Musc Musculoskeletal: Negative body pain, back pain, neck pain or other Skin/Breast Skin/Breast: Negative dry skin, itching, rash, unusual bruising, breast lump or other Neuro Neurological: Negative restless legs, confusion, weakness or other Psych Psychocological: Negative abnormal sleep pattern, anxiety, thoughts of hurting self/others, hopelessness or other Lymph Lymphatic: Negative easy bleeding, easy bruising, swollen lymph nodes or other Exam Const Constitutional: Positive conversant, cooperative, in no acute respiratory distress, healthy appearing, well developed, well nourished, good hygiene and dyspenic Head Head: Positive normocephalic and atraumatic; negative cyanosis of lips/distal nose Eyes Eye: Positive clear conjunctiva; negative nystagmus or scleral abnormality Ears Ear: Positive hearing normal and external ears normal; negative hard of hearing Nose Nose: Positive external nose normal and no nasal discharge; negative epistaxis Mouth Mouth: Positive oral mucosae normal, no lesions, good dentition and crowded posterior oropharynx; negative post nasal drip, malodorous breath or oral thrush present Mallampati Score: IV: Mallampati Score Neck Neck: Positive normal visual inspection, full ROM, trachea midline, thick neck and male neck greater than 43 cm (17 in); negative lymphadenopathy, JVD or tender Chest Wall Chest: Positive normal inspection of the chest and symmetric chest movement; negative increased A/P diameter Resp lung sounds: Positive clear to auscultation, good air exchange, normal expiratory time and normal respiratory effort; negative diminished, wheezes, rhonchi, rales, dullness to percussion or wheeze present on forced exhalation Cardio Cardiac: Positive regular rate, regular rhythm, S1 normal and S2 normal; negative murmur GI GI: Positive normal to inspection; negative distended Genitourinary: Positive deferred Musc Musculoskeletal: Positive steady gait and ROM normal; negative kyphosis or scoliosis Skin Pulmonary Skin Exam: Positive intact; negative rash, lesion, ulcers, erythema, scaly or dermal atrophy Pulses Pulse: Yes pulses normal x4 extremities Extremities Extremities: Yes capillary refill normal, No clubbing, No edema, No cyanosis Neuro Neurologic: Yes conversant, Yes no focal neuro deficits, Yes normal concentration, Yes understands questions, Yes cooperative, Yes normal cognition, Yes normal coordination Lymph Lymphatic: No lymphadenopathy, No tenderness, No cervical adenopathy Psych Appearance: Positive grossly normal, eye contact and well kempt Mental Status: Positive mental status grossly normal Mood: Positive congruent mood Affect: Positive normal affect Coding Level of Care Code Off vis,est,level 4 Diagnoses Chronic obstructive pulmonary disease, unspecified COPD type J44.9 COPD type: unspecified COPD RHINA (obstructive sleep apnea) G47.33 Class 3 severe obesity due to excess calories with serious comorbidity and body mass index (BMI) of 40.0 to 44.9 in adult E66.01; Z68.41 Obesity type: due to excess calories Obesity classification: adult class 3 (BMI >= 40) Serious obesity comorbidity presence: with serious comorbidity Body mass index: BMI 40.0-44.9 CLARK (dyspnea on exertion) R06.09 05/19/18 1443 <Electronically signed by Toma ADAMS> Date Toma ADAMS Cosigner Signature: Date (if applicable) CC: Sebastien Stahl MD CBC-COMPLETE BLOOD CNT Collected: 05/13/2018 Status: F Source: [place] NO DIFF 10:21 AM [facility] REPOSITORY TYPE CODE TESTS RESULT OUT OF RANGE REFERENCE UNITS LAB L100.1000 4.4-11.0 K/mm3 Normal WBC 7.6 LAB L100.1200 4.6-6.2 M/mm3 High RBC 6.53 LAB L100.1300 13.0-16.5 g/dl Low HGB 12.1 LAB L100.1400 40-54 % Normal HCT 44.1 LAB L100.1500 80-94 fL Low MCV 67.5 LAB L100.1600 27.0-32.0 pg Low MCH 18.5 LAB L100.1700 32-36 g/gl Low MCHC 27.4 LAB L100.1810 11.6-14.6 % High RDW CV 20.4 LAB L100.1820 35.1-43.9 fl High RDW SD 48.2 LAB L100.1900 150-450 K/mm3 Normal PLT 204 Performed By: #### L100.0500, L100.4500 #### [facility] [address], [address] DIFFERENTIAL COMMENT Collected: 05/13/2018 Status: F Source: [place] 10:21 AM [facility] REPOSITORY TYPE CODE TESTS RESULT OUT OF RANGE REFERENCE UNITS LAB L100.4500 Normal SMEAR COMMENT S Result Comment: ANISOCYTOSIS 2+ OVALOCYTES 1+ Performed By: #### L100.0500, L100.4500 #### [facility] [address] [place], [address] FERRITIN Collected: 05/13/2018 Status: F Source: [place] 10:21 AM [facility] REPOSITORY TYPE CODE TESTS RESULT OUT OF REFERENCE UNITS RANGE LAB L503.6550 26-388 ng/mL Low FERRITIN 10 Performed By: #### L503.6550 #### [facility] [address] [place], [address] PROGRESS Observed: 04/14/2018 Status: COMPLETED Source: [place] 1:00 PM [facility] REPOSITORY HNO ID: [id number] Author: Renee Armstrong Service: (none) Author Type: (none) Type: Progress Notes Filed: 04/14/2018 1:01 PM Note Text: Radiology Service Progress Note PATIENT NAME: Dale Sarabia DATE OF SERVICE: April 14, 2018 TIME: 1:00 PM PATIENT IDENTITY VERIFICATION COMPLETED USING TWO (2) METHODS: Patient confirmed name verbally and Date of . PATIENT GENDER DATA: Male PATIENT RELEVANT IMPLANT DATA REVIEWED: Not Applicable CONTRAST INDUCED NEPHROPATHY RISK FACTORS: Patient age > 60 years CREATININE: Creatinine Date Value Ref Range Status 05/20/2017 1.25 (H) 0.73 - 1.22 mg/dL Final 04/04/2017 1.39 (H) 0.73 - 1.22 mg/dL Final Creatinine, Whole Blood (iSTAT) Date Value Ref Range Status 04/14/2018 1.10 0.70 - 1.40 mg/dL Final eGFR-All Other Races Date Value Ref Range Status 04/14/2018 >60 . Final Comment: eGFR (Estimated GFR) Units of measure: mL/min/1.73 meters squared eGFR is derived from the reexpressed MDRD Study equation using the following parameters: serum creatinine, age, gender and race. The creatinine assay has been calibrated to be traceable to IDMS. An eGFR <60 mL/min/1.73m2 for >3 months is consistent with chronic kidney disease. Refer to KDOQI guidelines for clinical interpretation. In patients with unstable renal function, e.g. those with acute kidney injury, the eGFR may not accurately reflect actual GFR. eGFR- Date Value Ref Range Status 04/14/2018 >60 Final P.O.C.T. RESULTS: POC done: Yes, See Lab Tab April 14, 2018 RADIOLOGIST NOTIFIED?: No ALLERGIES: Reviewed and unchanged CONTRAST ALLERGY: NO. PERIPHERAL IV ACCESS: Ambulatory: IV type: A peripheral IV was started in the Left antecubital site with a Angio cath: 20 gauge., Site assessment: Clean,Dry and Intact, Site disposition Discontinued RADIOLOGY DEPARTMENT: CT; Exam(s) Completed: Kidney SIGNED BY: Renee Bah Ct April 14, 2018 1:[address] KIDNEY WO/W Observed: 04/14/2018 Status: F Source: [place] IVCON 12:05 PM [facility] REPOSITORY * * *Final Report* * * DATE OF EXAM: Apr 14 2018 12:05PM [facility] 0546 - CT KIDNEY WO/W IVCON / PROCEDURE REASON: multiple diagnoses * * * * Physician Interpretation * * * * EXAMINATION: CT ABDOMEN (KIDNEY) WITHOUT AND WITH IV CONTRAST CLINICAL HISTORY: 63-year-old male with 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 TECHNIQUE: Spiral imaging in three phases through the kidneys and including the entire abdomen was performed utilizing IV contrast only. No oral contrast was given. Arterial phase MIP, and nephrographic phase oblique coronal and sagittal reformations were created from thin-slice images under physician supervision on the imaging modality workstation. MQ: [id number]_3 Contrast: IV: 120 ml of Omnipaque 350 Oral Contrast: None CT Radiation dose: Integrated dose-length product (DLP) for this visit = 2068 mGy*cm. CT Dose Reduction Employed: Automated exposure control (AEC) COMPARISON: CT 05/29/2017, 08/29/2015, 03/02/2013 RESULT: Kidneys, adrenals and ureters: Right kidney: Postsurgical changes of interpolar partial right nephrectomy, unchanged since 08/29/2015. Right renal vasculature Arterial anatomy: single. No early branch (< 1cm). Venous anatomy: single. Right ureter: Single ureter. No hydronephrosis. Right adrenal: Normal, no nodules or thickening Left kidney: 2 mm lower pole nonobstructive calculus. Stable 1.2 cm upper pole cyst. Stable subcentimeter low-attenuation lesions, too small to characterize. Left renal vasculature Arterial anatomy: single. No early branch (< 1cm). Venous anatomy: conventional, anterior to the aorta. Left ureter: Single ureter. No hydronephrosis. Left adrenal: Normal, no nodules or thickening Retroperitoneal lymphadenopathy and IVC involvement: No retroperitoneal lymphadenopathy. No IVC tumor thrombus. Abdomen and pelvis: Liver: No mass. Biliary: No bile duct dilation. Gallbladder is unremarkable. Spleen: No mass. No splenomegaly. Pancreas: No mass or duct dilation. GI tract: No dilation or wall thickening. Colonic diverticulosis without diverticulitis. Lymph nodes (other): No abdominal lymphadenopathy. Mesentery/Peritoneum: No ascites or mass. Retroperitoneum: No mass. Vasculature: The celiac axis and SMA are patent. The portal vein and branches, splenic vein, SMV, and hepatic veins are patent. Arterial atherosclerotic disease without aneurysm. Bones/Soft Tissues: Degenerative changes. No neoplastic bone disease. Lower thorax: Unremarkable. IMPRESSION: POSTSURGICAL CHANGES OF PARTIAL RIGHT NEPHRECTOMY UNCHANGED SINCE AT LEAST 08/29/2015. NO RECURRENT OR METASTATIC DISEASE IN THE ABDOMEN. LEFT NEPHROLITHIASIS. NO HYDRONEPHROSIS. Clay Puddler: HEATHER Transcribe Date/Time: Apr 15 2018 10:15A Dictated by : ISAAK RICHARDS MD This examination was interpreted and the report reviewed and electronically signed by: ISAAK RICHARDS MD on Apr 15 2018 5:38PM EST [id number] Collected: 04/14/2018 Status: F Source: [place] 9:55 AM [facility] REPOSITORY TYPE CODE TESTS RESULT OUT OF REFERENCE UNITS RANGE LAB FERR 30.3-565.7 ng/mL Low Ferritin 21.5 Performed By: #### FERR #### [facility] [address] [place] [address] [place] CBC Collected: 04/14/2018 Status: F Source: [place] 9:50 AM [facility] REPOSITORY TYPE CODE TESTS RESULT OUT OF REFERENCE UNITS RANGE LAB WWBC 3.70-11.00 k/uL [place] WBC 8.08 LAB WRBC 4.20-6.00 m/uL [place] High RBC 6.28 LAB WHGB 13.0-17.0 g/dL Low [place] Hemoglobin 11.7 LAB WHCT 39.0-51.0 % [place] Hematocrit 41.3 LAB WMCV 80.0-100.0 fL Low [place] MCV 65.8 LAB WMCH 26.0-34.0 pg Low [place] MCH 18.6 LAB WMCHC 30.5-36.0 g/dL Low [place] MCHC 28.3 LAB WRDW 11.5-15.0 % [place] High RDW 22.0 LAB WPLT 150-400 k/uL [place] Platelet Cnt 248 LAB WMPV 9.0-12.7 fL [place] MPV 10.5 Result Comment: Test performed at: [facility], [address] [place] [address] Rd., [place] [address]. [place] ISTAT BMP Collected: 04/14/2018 Status: F Source: [place] 9:50 AM [facility] REPOSITORY TYPE CODE TESTS RESULT OUT OF REFERENCE UNITS RANGE LAB NAWB 135-146 mmol/L Sodium, Whole 140 Bld LAB K1WB 3.5-5.0 mmol/L Potassium,Who 4.3 le Bld LAB CLWB 98-110 mmol/L Chloride, 101 Whole Bld LAB ICAWB 1.08-1.30 mmol/L Ionized 1.22 Calcium, WB Result Comment: Please note: This value represents ionized calcium not total calcium. LAB CO2WB 23-32 mmol/L TCO2, Whole 29 Blood LAB GLUWB 65-100 mg/dL High Glucose, 181 Whole Bld LAB BUNWB 10-25 mg/dL BUN, Whole 20 Blood LAB BCRET 0.70-1.40 mg/dL Creatinine,Wh 1.10 ole Bld LAB AGAPWB 0-15 mmol/L Anion Gap, 10 Whole Bld LAB GFRAA eGFR- >60 Amer. LAB GFRNAA . eGFR-All >60 Other Races Result Comment: eGFR (Estimated GFR) Units of measure: mL/min/1.73 meters squared eGFR is derived from the reexpressed MDRD Study equation using the following parameters: serum creatinine, age, gender and race. The creatinine assay has been calibrated to be traceable to IDMS. An eGFR <60 mL/min/1.73m2 for >3 months is consistent with chronic kidney disease. Refer to KDOQI guidelines for clinical interpretation. In patients with unstable renal function, e.g. those with acute kidney injury, the eGFR may not accurately reflect actual GFR. 12 LEAD ELECTROCARDIOGRAM Observed: 04/02/2018 Status: F Source: [place] 3:32 PM [facility] REPOSITORY [facility] [place] [address] 12 Lead EKG 03/27/18 1639 MR#: [id number] Acct: [id number] Name: DALE SARABIA Rep #: [id number] : 1955 63 From: Rafael Solorio MD Attending Dr: Ana Medina Status: DIS CHLOE Ordering Dr: Phuc Griffin MD Date: 03/27/18 Location: [facility] Sex: M C Admitted: 03/27/18 Test Reason : Blood Pressure : / mmHG Vent. Rate : 078 BPM Atrial Rate : 078 BPM P-R Int : 172 ms QRS Dur : 098 ms QT Int : 384 ms P-R-T Axes : 050 -33 018 degrees QTc Int : 437 ms Normal sinus rhythm Left axis deviation Abnormal ECG Confirmed by RAFAEL SOLORIO MD ([id number]), film editor RIMMA LAZARO ([id number]) on 04/02/2018 3:32:45 PM Referred By: LENIN Confirmed By:RAFAEL SOLORIO MD 04/02/18 1532 Date Rafael Solorio MD CC: Ana Medina; Phuc Griffin MD; Sebastien Stahl MD Signed DISCHARGE SUMMARY Observed: 03/28/2018 Status: F Source: [place] 4:25 PM [facility] REPOSITORY [facility] Medical Records Department [address] [address] Discharge Summary 03/28/18 1617 MR#: [id number] Acct: [id number] Name: DALE SARABIA Rep #: [id number] : 1955 63 From: Ana Medina MD PCP: Sebastien Stahl MD Status: DIS CHLOE Y Location: [place] [address] Discharge Date and Diagnosis Date of Admission: 03/27/18 Date of Discharge: 03/28/18 - Primary Discharge Diagnosis #1 vertigo/dizziness. #2 acute kidney injury. - Secondary Discharge Diagnosis Chronic Problems (Last Reviewed 01/06/18 @ 10:31 by Toma Morley NP-C) CAD (coronary artery disease) (Chronic) CLARK (dyspnea on exertion) (Chronic) 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) 05/22/11, PTCA/stent X [address] Prabhu Heath @ [facility] Palpitations (Chronic) Postsurgical percutaneous transluminal coronary angioplasty (PTCA) status (Chronic) 05/22/11, PTCA/stent X 2 to LAD Other group home (current) 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 (Chronic) History of renal cell cancer (Chronic) Benign prostatic hypertrophy (Chronic) Type II diabetes mellitus (Chronic) Hyperlipidemia (Chronic) Obesity (Chronic) COPD (chronic obstructive pulmonary disease) (Chronic) Obstructive sleep apnea (Chronic) CPAP 13 cm of water Hypothyroidism (Chronic) Status post right partial nephrectomy (Chronic) Hypertension (Chronic) Hospital Course and Treatment Imaging Results: Clinical Impression(s) from Imaging Studies Chest X-Ray 03/27/18 16:26 IMPRESSION: Normal x-ray examination of the chest. Electronically Signed: Red Arizmendi MD at 16:47 EDT , Service support , Head CTA 03/27/18 16:31 IMPRESSION: Hypoplastic right vertebral artery otherwise unremarkable exam. Electronically Signed: Red Arizmendi MD at 17:47 EDT , Service support , Neck CTA 03/27/18 16:31 IMPRESSION: Hypoplastic right vertebral artery otherwise unremarkable exam. Electronically Signed: Red Arizmendi MD at 17:47 EDT , Service support , Operations: None Procedures: 2-D Echocardiogram, EKG Summary of Care Provided: Patient seen and examined on the day of discharge and appeared to be stable to be discharged home. He has normal symptoms, normal vertigo or dizziness. No chest pain or shortness of breath. He denied focal symptoms. Denied numbness or tingling. He mentioned that he had episodes of vertigo in the past and the one happened yesterday is similar to what he had in the past. His vital signs are stable. - Physical Exam General: Alert, Oriented x3, Cooperative, No apparent distress. HEENT: Atraumatic, PERRLA, EOMI. Neck: Supple, No JVD, Negative Carotid Bruits, Trachea Midline, Thyroid Normal. Lungs: Diminished breath sounds bilateral, otherwise clear, No rhonchi, No wheeze, No rales. Cardiovascular: Regular rate, Regular Rhythm, Normal S1, Normal S2, PMI Normal. Abdomen: Bowel Sounds Present, Soft, Non Tender, Non-Distended, No Hepato-splenomegaly. Extremities: No clubbing, No cyanosis, No edema Skin: No rashes, No breakdown Neurological: Neuro grossly intact, intact cranial nerves, normal power. Vital Signs are stable. Hospital course: The patient is a 63 year old M admitted because of dizziness and vertigo. He described his symptoms as feeling dizzy with spinning sensation and he was about to pass out. He mentioned that his dizziness increases when he opens his eyes. He denies any symptoms suggestive of or typical of stroke. CTA of the head revealed no evidence of acute infarction or hemorrhage. CTA of the neck revealed hypoplastic right vertebral artery which unlikely to explain his symptoms. His EKG revealed normal sinus rhythm without evidence of cardiac arrhythmias or acute ischemic changes. 2D echocardiogram revealed ejection fraction 60%, no significant valvular heart disease. Patient was sent down to MRI brain and he was given IV Ativan because of claustrophobia but he was not able to perform the MRI secondary to claustrophobia and shortness of breath when he laid down and he asked not to do the MRI. His orthostatic vitals were stable. He was found to have acute kidney injury with admission creatinine of 1.44, received IV fluids and his creatinine came down back to normal at 1.11. His troponin was negative 2. His LFT was normal. Patient discharged home in a stable medical condition, continued on his home medication without any changes, started on Antivert as needed for vertigo, recommended follow-up with PCP in 1 week. Discharge Activity: Return to Normal Activity Weight Bearing Status: Weight bearing as tolerated Call your doctor if you observe: Fever of 101 or Higher, Shortness of breath, Dizziness, Fainting spells, Chest pain, Increased palpitations (irregular heartbeat), Uncontrolled pain Home Medications: Medications to take at Discharge Aspirin [Aspirin, Baby] 81 mg PO DAILY@0800 03/17/16 Tamsulosin HCl [Flomax] 0.4 mg PO DAILY 03/17/16 budesonide-formoterol HFA 160 mcg-4.5 mcg/actuation aerosol inhaler 2 puff INHALATION Q12H 01/01/18 Metformin HCl 1,000 mg PO BREAKFAST 01/03/18 Metformin HCl 1,500 mg PO DINNER 01/03/18 Metoprolol Succinate [Toprol Xl] 25 mg PO DAILY 01/03/18 valsartan 80 mg-hydrochlorothiazide 12.5 mg tablet 1 tab PO DAILY 01/06/18 Furosemide 40 mg PO DAILY 03/27/18 Levothyroxine Sodium [Synthroid] 225 mcg PO DAILY 03/27/18 Testosterone [Androgel] 2 pump TD DAILY 03/27/18 Meclizine HCl [Antivert] 25 mg PO TID PRN PRN #20 tab 03/28/18 Following Prescrptions Were Given to Patient: Meclizine HCl [Antivert] 25 mg PO TID PRN PRN #20 tab PRN Reason: Vertigo Primary Care Physician: Sebastien Stahl MD [Primary Care Provider] - Please follow up with your Primary Care Physician in: 1 week. Please Follow Up With: Sebastien Stahl MD Disposition: Home Minutes spent on discharge:: 26 Patient Condition:: Stable Medical Necessity - Tobacco Use Smoking Status: Former smoker Tobacco Use: Cigarettes Meaningful Use Info Meaningful Use Diagnoses (Choose all that apply): None applicable Code Visit OBSV E AND M: 68152 Observation care discharge 03/28/18 1625 <Electronically signed by Ana Medina MD> Date Ana Medina MD Cosigner Signature (if applicable): Date CC: Ana Medina; Sebastien Stahl MD Signed DISCHARGE INSTRUCTION Observed: 03/28/2018 Status: F Source: [place] 12:15 PM [facility] REPOSITORY [facility] Medical Records Department [address] [place] [address] Instructions for Home/Discharge Instructions 03/28/18 1214 MR#: [id number] Acct: [id number] Name: ADRIANDALE P Rep #: [id number] : 1955 63 From: Ana Medina MD PCP: Sebastien Stahl MD Status: ADM CHLOE You will use the following diet at home:: Calorie/Carbohydrate Controlled (specify 1200, 1400, etc) - 1880 [address]y., Cardiac Discharge Activity: Return to Normal Activity Weight Bearing Status: Weight bearing as tolerated Call your doctor if you observe: Fever of 101 or Higher, Shortness of breath, Dizziness, Fainting spells, Chest pain, Increased palpitations (irregular heartbeat), Uncontrolled pain Allergies/Adverse Reactions: Allergies theophylline Allergy (Verified 01/06/18 10:14) Unknown Medications to take at Discharge Aspirin [Aspirin, Baby] 81 mg PO DAILY@0800 03/17/16 Tamsulosin HCl [Flomax] 0.4 mg PO DAILY 03/17/16 budesonide-formoterol HFA 160 mcg-4.5 mcg/actuation aerosol inhaler 2 puff INHALATION Q12H 01/01/18 Metformin HCl 1,000 mg PO BREAKFAST 01/03/18 Metformin HCl 1,500 mg PO DINNER 01/03/18 Metoprolol Succinate [Toprol Xl] 25 mg PO DAILY 01/03/18 valsartan 80 mg-hydrochlorothiazide 12.5 mg tablet 1 tab PO DAILY 01/06/18 Furosemide 40 mg PO DAILY 03/27/18 Levothyroxine Sodium [Synthroid] 225 mcg PO DAILY 03/27/18 Testosterone [Androgel] 2 pump TD DAILY 03/27/18 Meclizine HCl [Antivert] 25 mg PO TID PRN PRN #20 tab 03/28/18 The following prescriptions were given: Meclizine HCl [Antivert] 25 mg PO TID PRN PRN #20 tab PRN Reason: Vertigo Primary Care Physician: Sebastien Stahl MD [Primary Care Provider] - Please follow up with your Primary Care Physician in: 1 week. 03/28/18 1215 <Electronically signed by Ana Medina MD> Date Ana Medina MD CC: Sebastien Stahl MD BEDSIDE GLUCOSE Collected: 03/28/2018 Status: F Source: [place] 11:47 AM [facility] REPOSITORY TYPE CODE TESTS RESULT OUT OF REFERENCE UNITS RANGE LAB L501.080 70-110 mg/dL High BEDSIDE GLU 181 Result Comment: Orders Followed Insulin Given MANAGEMENT OF PATIENT CARE PER NURSING PROTOCOL Performed By: #### L501.080 #### [facility] Point of Care [address] [place] [address] ECHO, COMPLETE W/ Observed: 03/28/2018 Status: F Source: [place] CONTRAST 11:42 AM [facility] REPOSITORY [facility] Cardiovascular Services [address] [place] [address] Echo Complete W/ Contrast 03/28/18 0902 MR#: [id number] Acct: [id number] Name: DALE SARABIA Rep #: [id number] : 1955 63 From: Rafael Solorio MD Attending Dr: Ana Medina Status: ADM CHLOE Ordering Dr: Bg Estrella MD Date: 03/27/18 Location: [facility] Sex: M C Admitted: 03/27/18 Reason For Study: Afib/Flutter Procedure This was a 2D Doppler, Color Flow transthoracic echocardiogram. The study was technically difficult. Contrast injection was performed. Exam performed portable in patient room. Left Ventricle Normal LV size. Moderate concentric left ventricular hypertrophy. Left ventricular systolic function is normal. The estimated ejection fraction is 60 %. Transmitral diastolic flow velocities suggest mild (stage 1) diastolic dysfunction (reversed pattern). No regional wall motion abnormalities noted. Right Ventricle Normal RV size. Normal systolic function. Atria Normal left atrium. Normal right atrium. Mitral Valve Normal mitral valve. Tricuspid Valve The tricuspid valve is not well visualized. Aortic Valve The aortic valve is not well visualized. Pulmonic Valve The pulmonic valve is not well visualized. Great Vessels Mild to moderately dilated aortic root. The pulmonary artery is normal size. Normal inferior vena cava. Pericardium/Pleural No pericardial effusion. Medication Diluted definity 4ml given slow IV push to enhance endocardial definition. MMode/2D Measurements AND Calculations LVIDd: 5.0 cm IVSd: 1.5 cm Ao root diam: 4.4 cm LVIDs: 3.1 cm LVPWd: 1.6 cm ACS: 1.7 cm FS: 37.9 % LVAd ap4: 30.8 cm2 SV(MOD-sp4): 59.0 ml SV(sp4-el): 59.5 ml EDV(MOD-sp4): 91.9 ml EDV(sp4-el): 94.1 ml LVAs ap4: 16.4 cm2 ESV(MOD-sp4): 32.9 ml ESV(sp4-el): 34.5 ml EF(MOD-sp4): 64.2 % EF(sp4-el): 63.3 % Time Measurements MV dec time: 0.21 sec Doppler Measurements AND Calculations MV E max yumiko: 75.9 cm/sec Lat Peak E' Yumiko: 13.7 cm/sec Med Peak E' Yumiko: 7.1 cm/sec MV A max yumiko: 84.0 cm/sec E/E' lat: 5.5 E/E' med: 10.7 MV E/A: 0.90 MV V2 max: 90.5 cm/sec MV P1/2t max yumiko: 88.3 cm/sec Ao V2 max: 125.8 cm/sec MV max P.3 mmHg MV P1/2t: 84.0 msec Ao max P.3 mmHg MV V2 mean: 53.9 cm/sec MV dec slope: 307.9 cm/sec2 Ao V2 mean: 82.2 cm/sec MV mean P.4 mmHg MVA(P1/2t): 2.6 cm2 Ao mean P.1 mmHg MV V2 VTI: 24.2 cm Ao V2 VTI: 21.1 cm LV V1 max: 96.3 cm/sec LV V1 max P.7 mmHg LV V1 mean P.7 mmHg LV V1 mean: 60.3 cm/sec LV V1 VTI: 18.6 cm Interpretation Summary Normal LV size. Moderate concentric left ventricular hypertrophy. Left ventricular systolic function is normal. The estimated ejection fraction is 60 %. Transmitral diastolic flow velocities suggest mild (stage 1) diastolic dysfunction (reversed pattern). Contrast injection was performed. Ordering Physician: Bg Estrella Referring Physician: Sebastien Stahl Performed By: Kevon Castellanos RCS 03/28/18 1141 Date Rafael Solorio MD CC: Ana Medina; Bg Estrella MD; Sebastien Stahl MD Date Dictated: 03/28/18901 Date Transcribed: 03/28/18 1141 Clay Puddler: Signed CBC-COMPLETE BLOOD CNT Collected: 03/28/2018 Status: F Source: [place] NO DIFF 6:45 AM [facility] REPOSITORY TYPE CODE TESTS RESULT OUT OF RANGE REFERENCE UNITS LAB L100.1000 4.4-11.0 K/mm3 Normal WBC 7.8 LAB L100.1200 4.6-6.2 M/mm3 Normal RBC 6.06 LAB L100.1300 13.0-16.5 g/dl Low HGB 11.3 LAB L100.1400 40-54 % Normal HCT 40.7 LAB L100.1500 80-94 fL Low MCV 67.2 LAB L100.1600 27.0-32.0 pg Low MCH 18.6 LAB L100.1700 32-36 g/gl Low MCHC 27.8 LAB L100.1810 11.6-14.6 % High RDW CV 19.1 LAB L100.1820 35.1-43.9 fl High RDW SD 45.8 LAB L100.1900 150-450 K/mm3 Normal PLT 189 LAB L100.2000 6.2-12.0 fl Normal MPV 10.2 Performed By: #### L100.0500, L100.4500 #### [facility] [address] [place], [address] DIFFERENTIAL COMMENT Collected: 03/28/2018 Status: F Source: [place] 6:45 AM [facility] REPOSITORY TYPE CODE TESTS RESULT OUT OF RANGE REFERENCE UNITS LAB L100.4500 Normal SMEAR COMMENT Result Comment: MICROCYTOSIS 2+ OVALOCYTES 1+ Performed By: #### L100.0500, L100.4500 #### [facility] [address] [place], [address] BASIC METABOLIC Collected: 03/28/2018 Status: F Source: [place] PROFILE (BMP) 6:45 AM [facility] REPOSITORY TYPE CODE TESTS RESULT OUT OF RANGE REFERENCE UNITS LAB L501.0100 74-106 mg/dL High GLU 150 Result Comment: Fasting Glucose result greater than or equal to 126 mg/dL suggests DIABETES MELLITUS per A.D.A. criteria. Please note revised GLUCOSE reference range effective 2017. LAB L501.1000 7-18 mg/dL Normal BUN 13 LAB L501.1100 0.70-1.30 mg/dL Normal CREAT,SERUM 1.11 Result Comment: The validity of the calculated GFR AND GFRAA in patients over 70 years has not been determined. Clinical correlation is essential. LAB L501.1110 >60 mL/min Normal EST GFR 71 Result Comment: Non- GFR Calc LAB L501.1115 >60 mL/min Normal EST GFR - AA 85 Result Comment: GFR Calc LAB L501.1255 ml/min Normal Estimated CRCL 64.19 LAB L501.1300 10-20 RATIO Normal BUN/CRE 11.7 LAB L501.2200 8.5-10 mg/dL Low .1 CA 8.4 LAB L501.5300 136-14 mmol/L Normal 5 NA 141 LAB L501.5600 3.5-5. mmol/L Normal 1 K 4.1 LAB L501.5900 98-107 mmol/L Normal CL 105 LAB L501.6100 21.0-3 mmol/L Normal 2.0 CO2 28.0 LAB L501.6200 5-15 Normal GAP 8 Performed By: #### L500.2500, L501.5200 #### [facility] [address] [place], [address] MAGNESIUM Collected: 03/28/2018 Status: F Source: [place] 6:45 AM [facility] REPOSITORY TYPE CODE TESTS RESULT OUT OF RANGE REFERENCE UNITS LAB L501.5200 1.6-2.6 mg/dL Normal MG 2.1 Performed By: #### L500.2500, L501.5200 #### [facility] [address] [facility] [place], [address] HISTORY AND PHYSICAL Observed: 03/27/2018 Status: F Source: [place] EXAM 8:46 PM [facility] REPOSITORY [facility] Medical Records Department [address] [place] [address] History and Physical 03/27/18 1815 MR#: [id number] Acct: [id number] Name: DALE SARABIA Rep #: [id number] : 1955 63 From: Bg Estrella MD PCP: Sebastien Stahl MD Status: ADM CHLOE Y Location: [place] [address] History of Present Illness Date of Admission: 03/27/18 Chief Complaint: severe dizziness The patient is a 63 year old M with past medical history of coronary artery disease status post angioplasty and stenting, essential hypertension, diabetes and obesity 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 Around 230 this afternoon he developed severe dizziness and felt as if he was going to pass out , he became diaphoretic and nauseous. Rapid response was activated and he was transported to the emergency room for evaluation. CT scan of his brain and CT angiogram of the brain and neck were all unremarkable. Patient denies any chest pain, shortness of breath palpitations or rapid heartbeat. Past Medical History Past Medical History (Chronic Problems): Chronic Problems (Last Reviewed 01/06/18 @ 10:31 by Toma Morley, BILL ADJUSTER-C) CAD (coronary artery disease) (Chronic) CLARK (dyspnea on exertion) (Chronic) 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) 05/22/11, PTCA/stent X [address] Prabhu Heath @ [facility] Palpitations (Chronic) Postsurgical percutaneous transluminal coronary angioplasty (PTCA) status (Chronic) 05/22/11, PTCA/stent X 2 to LAD Other group home (current) 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 (Chronic) History of renal cell cancer (Chronic) Benign prostatic hypertrophy (Chronic) Type II diabetes mellitus (Chronic) Hyperlipidemia (Chronic) Obesity (Chronic) COPD (chronic obstructive pulmonary disease) (Chronic) Obstructive sleep apnea (Chronic) CPAP 13 cm of water Hypothyroidism (Chronic) Status post right partial nephrectomy (Chronic) Hypertension (Chronic) Medical History: Medical History (Last Reviewed 01/06/18 @ 10:31 by Toma Morley BILL ADJUSTER-C) 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) I25.10 05/22/11, PTCA/stent X [address] 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 Meniscus degeneration M23.309 Nephrolithiasis N20.0 Precordial chest pain R07.2 Right elbow pain M25.521 Right knee pain M25.561 Rupture of right biceps tendon S46.211A Secondary polycythemia D75.1 Shortness of breath R06.02 Trochanteric bursitis, left hip M70.62 Asthma J45.909 Coronary artery disease I25.10 Depression F32.9 Osteoarthritis, knee M17.10 Sciatica M54.30 Allergies theophylline Allergy (Verified 01/06/18 10:14) Unknown Home Medications: Ambulatory Orders Medication Instructions Recorded Aspirin [Aspirin, Baby] 81 mg PO DAILY@0800 03/17/16 Tamsulosin HCl [Flomax] 0.4 mg PO DAILY 03/17/16 budesonide-formoterol HFA 160 2 puff INHALATION Q12H 01/01/18 Surgical History: Surgical History (Last Reviewed 01/06/18 @ 10:31 by BRYAN Brown) Postsurgical percutaneous transluminal coronary angioplasty (PTCA) status (Chronic) Z98.61 05/22/11, PTCA/stent X 2 to LAD Status post right partial nephrectomy (Chronic) H/O lithotripsy Z98.890 right 2011 History of tonsillectomy Z90.89 L eye surgery partial nephrectomy for renal cell cancer 07/2011 Surgical History: - - Cardiac stents him a right partial nephrectomy both in 2010 Psychiatric History: No pertinent psych hx Smoking Status: Former smoker - *Family History Maternal Family History: Family History (Last Reviewed 01/06/18 @ 10:31 by BRYAN Brown) Mother CAD (coronary artery disease) History Items: No pertinent history Paternal Family History: Family History (Last Reviewed 01/06/18 @ 10:31 by BRYAN Brown) Mother CAD (coronary artery disease) History Items: No pertinent history Review of Systems Constitutional: Reports: Anorexia, Chills Cardiovascular: Reports: Chest Pain Respiratory: Reports: Cough Comment: All Systems were reviewed with pertinent positives mentioned in the HPI above. VTE Information - Inpt Only VTE Present on Admission: No VTE Mechan Device Prophylaxis: SCD's VTE Pharm Prophylaxis ordered?: Yes - Physical Exam General: Alert, Oriented x3 HEENT: Atraumatic Oral: Moist Mucosa Neck: Supple Lungs: Clear to auscultation Cardiovascular: Regular rate, Normal S1, Normal S2, No Ectopic Activity Abdomen: Bowel Sounds Present, Non Tender Extremities: No clubbing Musculoskeletal: No Tenderness to Palpation of Joints or Extremities Lymphatic: No Cervical, Supraclavicular, or Inguinal Adenopathy Neurological: Cranial nerves II-XII grossly intact Vital Signs Temp Pulse Resp BP Pulse Ox 98.0 F 82 16 127/69 H 95 03/27/18 16:21 03/27/18 16:21 03/27/18 16:21 03/27/18 16:21 03/27/18 16:21 Oxygen Delivery Method Room Air Weight: 134 kg Body Mass Index (BMI) 43.6 Finger Stick Blood Glucose 202 Laboratory Tests Past 24 Hrs Assessment/Plan All Active Problems (Last Reviewed 01/06/18 @ 10:31 by BRYAN Brown) PNA (pneumonia) (Acute) RLL pneumonia (Acute) Sepsis (Acute) Influenza A (Acute) 1. Intractable dizziness; this was transient, it may represent a TIA versus cardiac arrhythmia (given his significant coronary artery disease), we will obtain MRI of the brain and echocardiogram . We will continue cardiac rhythm monitoring. 2 acute kidney injury; likely prerenal, will hydrate with 0.9 normal saline, will hold off on potential nephrotoxic agents. Renal parameters will be repeated in a.m. 3. CAD status post angioplasty with stenting; we will obtain serial cardiac enzymes and maintain him on his cardioprotective medications. 4 hypertension;n this is controlled. 5. hyperlipidemia; will maintain him on his statin. 6. DM II diabetes mellitus: insulin sliding scale, will hold off his Metformin due to ANNA MARIE. 7 obstructive sleep apnea will continue HS CPAP . 8. Hypothyroidism; he is on Synthroid. Will check a TSH. 9. Obesity; weight loss recommended. 10. DVT prophylaxis with subcutaneous Lovenox. Code Visit OBSV E AND M: 65230 Initial observation care L3 03/27/182045 <Electronically signed by Bg Estrella MD> Date Bg Estrella MD Cosigner Signature: Date (if applicable) CC: Bg Estrella MD; Sebastien Stahl MD Signed TROPONIN-I Collected: 03/27/2018 Status: F Source: [place] 8:38 PM [facility] REPOSITORY Order Comment: 'TROP' Serial specimen #1, #2 or #3: 2 TYPE CODE TESTS RESULT OUT OF RANGE REFERENCE UNITS LAB L501.4010 <0.045 ng/mL Normal < 0.015 TROPONIN-I Result Comment: TROPONIN-I EXPECTED VALUES <0.045 Negative 0.045 - 0.590 Consistent with Cardiac Damage > OR = 0.600 Critical Value Not every elevated troponin is indicative of NH. These values should be used with clinical judgement in examining the patient's clinical picture for diagnosis. To establish a diagnosis of NH versus myocardial injury, there must be a demonstrated rise and/or fall in the troponin values, in addition to ischemic symptoms, EKG changes, new regional wall motion abnormality, and/or angiographical evidence. PLEASE NOTE: REFERENCE RANGES EDITED 18 Performed By: #### L501.4010 #### [facility] [address] [place], [address] EMERGENCY DEPARTMENT Observed: 03/27/2018 Status: F Source: [place] SUMMARY 6:49 PM [facility] REPOSITORY [facility] Medical Records Department [address] [place] [address] Emergency Department Summary 03/27/18 1627 MR#: [id number] Acct: [id number] Name: DALE SARABIA Rep #: [id number] : 1955 63 From: Phuc Griffin MD PCP: Sebastien Stahl MD Status: ADM [facility] - ER Visit Summary Date of Service: 03/27/18 Chief Complaint: Nausea, dizziness History of Present Illness: The patient is a 63 M who has a history of coronary vascular disease status post stenting, diabetes, hypertension presents with sudden onset dizziness. 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 He states that he ate about 230. He was going about his normal day. He states he got very lightheaded and felt his physical pass out. He states that he had a sensation of motion. He states he got very diaphoretic and nauseated. He denies any chest pain. He states this did happen to about 15 years ago. He states up until today, he has been in his normal state of health. He states he has had some mild shortness of breath, but that is chronic for him. He denies any recent change of medications. He denies any abdominal pain or chest pain. Physical Examination: Vital signs reviewed General: Well-nourished, well-developed, diaphoretic Head: Normocephalic, atraumatic Eyes: Pupils equal and reactive, extraocular muscles intact Neck, supple, no lymphadenopathy Heart: Regular rate and rhythm Respiratory: No distress, clear bilaterally Abdomen: Soft, nontender, nondistended, no peritoneal signs Back: Nontender Extremities: Nontender, no edema, no cords Skin: Normal color no rash Neuro: Alert and oriented, no focal or lateralizing deficits Test Results: [] Emergency Department Course and Treatment: The patient presents with sudden onset nausea and dizziness. He does describe the sensation of motion and he was near syncopal. His EKG was unremarkable. Patient was given Zofran with little change of his symptoms. He was then given Phenergan and was resting more comfortably. He has no changes in speech. Given the severity of his symptoms, I was unable to check his gait. The patient does have persistent vertiginous symptoms. He has been having intermittent neck pain. I did obtain a CTA of his head and neck which shows no dissection or other acute blockage. I do have some suspicion this may be a posterior circulation stroke given the persistent symptoms that are not really made worse with motion. The patient symptoms were mildly improved, but given his risk factors I do feel would benefit from observation. Patient was discussed with the hospitalist. Treatment Plan: [] Disposition: Admission Impression: 1. Acute vertigo This note was generated with [employer] dictation software. It may contain incorrect words, spelling, and punctuation that were not noted in review of the chart prior to signing ED Disposition - Plan for ED Patient: Chief Complaint: Dizziness What to do if you have Problems For any increased pain, shortness of breath, bleeding, nausea or vomiting, chest pain, or any unexpected problems, contact your Primary Care Provider. Call [employer] [facility] ([phone]) or report to the closest Emergency Room. Call 911 if necessary. 03/27/18 1859 <Electronically signed by Phuc Griffin MD> Date Phuc Griffin MD Cosigner Signature (If Indicated): Date CC: Sebastien Stahl MD CTA HEAD W/WO Observed: 03/27/2018 Status: F Source: [place] CONTRAST 4:32 PM [facility] REPOSITORY [facility] Imaging Services [address] [place] [address] CTA Head W/WO Contrast MR#: [id number] Acct: [id number] Name: DALE SARABIA Rep #: [id number] : 1955 63 From: Red Arizmendi MD PCP: Sebastien Stahl MD Status: REG ER Study: CTA Head W/WO Contrast Date of Exam: 03/27/18 Exam# [id number] Ordering Dr: Phuc Griffin MD STUDY: CTA NECK WITH CONTRAST REASON FOR EXAM: Male, 63 years old. Dizziness RADIATION DOSAGE (If Supplied By Facility): CTDIvol = ( 44.57 ) mGy, DLP = ( 1925.14 ) mGycm TECHNIQUE: CT angiography with multi-detector data acquisition was performed from the aortic arch to the skull base following intravenous administration of 100 ml of Isovue 370 contrast. MIP images were reconstructed from the axial data set. Post-processing of the angiographic images was performed, with multiplanar reformation and 3D reconstruction. Individualized dose optimization techniques were used for this CT. COMPARISON: None. FINDINGS: AORTIC ARCH: Normal visualized aortic arch. Normal origins of the brachiocephalic, left common carotid, and left subclavian arteries. RIGHT CAROTID ARTERIES: Normal right common carotid artery (CCA). There is mild atherosclerotic plaque formation with minimal narrowing of the right carotid bulb. Normal origin of the right internal carotid (ICA) artery without a hemodynamically significant stenosis. Normal visualized cervical portion of the right internal carotid artery. Normal origin of the right external carotid artery (ECA). LEFT CAROTID ARTERIES: Normal left common carotid artery (CCA). There is mild atherosclerotic plaque formation with minimal narrowing of the left carotid bulb. Normal origin of the left internal carotid (ICA) artery without a hemodynamically significant stenosis. Normal visualized cervical portion of the left internal carotid artery. Normal origin of the left external carotid artery (ECA). VERTEBRAL ARTERIES: Left vertebral artery is dominant cyst appears normal. The right vertebral artery is hypoplastic may terminate as the posterior inferior cerebellar artery. IMPRESSION: Hypoplastic right vertebral artery otherwise unremarkable CTA neck Electronically Signed: Red Arizmendi MD at 17:43 EDT , Service support , STUDY: CTA OF THE BRAIN REASON FOR EXAM: Male, 63 years old. Dizziness RADIATION DOSAGE (If Supplied By Facility): CTDIvol = ( 44.57 ) mGy, DLP = ( 1925.14 ) mGycm TECHNIQUE: CT angiography was performed with a multi-detector CT scanner. Data acquisition was obtained from the skull base through the vertex following intravenous administration of 100 ml of Isovue-370. MIP images were reconstructed from the axial data set. Post-processing of the angiographic images was performed, with multiplanar reformation and 3D reconstruction. Individualized dose optimization techniques were used for this CT. COMPARISON: None. FINDINGS: Normal bilateral petrous carotid arteries. Normal right cavernous carotid artery with a normal supraclinoid bifurcation. Normal left cavernous carotid artery with a normal supraclinoid bifurcation. Normal right A1 segments of the anterior cerebral artery. Normal left A1 segments of the anterior cerebral artery. Normal intact anterior communicating artery (ACOM). Normal bilateral A2 segments of the anterior cerebral arteries. Normal right M1 and M2 segments of the middle cerebral arteries, with a normal M1 bifurcation. Normal left M1 and M2 segments of the middle cerebral arteries, with a normal M1 bifurcation. There is a persistent origin of the right posterior cerebral artery with absence of the posterior communicating artery (PCOM). There is non-visualization of the left posterior communicating artery (PCOM). Right vertebral artery is not well-visualized and may terminate as the posterior inferior cerebellar artery. Normal basilar artery with a normal basilar bifurcation. The visualized bilateral superior cerebellar (SCA) arteries are normal. Normal bilateral P1, P2 and visualized P3 segments of the posterior cerebral arteries. There is no demonstrated aneurysm of the [place]. There is no demonstrated abnormality of the visualized brain. CT/CTA Head W/WO Contrast IMPRESSION: Hypoplastic right vertebral artery otherwise unremarkable exam. Electronically Signed: Red Arizmendi MD at 17:47 EDT , Service support , CC: Phuc Griffin MD; Sebastien Stahl MD Clay Puddler: Signed CTA NECK W/WO Observed: 03/27/2018 Status: F Source: [place] CONTRAST 4:32 PM [facility] REPOSITORY [facility] Imaging Services [facility] [place] [address] CTA Neck W/WO Contrast MR#: [id number] Acct: [id number] Name: DALE SARABIA Chris Rep #: [id number] : 1955 63 From: Red Arizmendi MD PCP: Sebastien Stahl MD Status: REG ER Study: CTA Neck W/WO Contrast Date of Exam: 03/27/18 Exam# [id number] Ordering Dr: Phuc Griffin MD STUDY: CTA NECK WITH CONTRAST REASON FOR EXAM: Male, 63 years old. Dizziness RADIATION DOSAGE (If Supplied By Facility): CTDIvol = ( 44.57 ) mGy, DLP = ( 1925.14 ) mGycm TECHNIQUE: CT angiography with multi-detector data acquisition was performed from the aortic arch to the skull base following intravenous administration of 100 ml of Isovue 370 contrast. MIP images were reconstructed from the axial data set. Post-processing of the angiographic images was performed, with multiplanar reformation and 3D reconstruction. Individualized dose optimization techniques were used for this CT. COMPARISON: None. FINDINGS: AORTIC ARCH: Normal visualized aortic arch. Normal origins of the brachiocephalic, left common carotid, and left subclavian arteries. RIGHT CAROTID ARTERIES: Normal right common carotid artery (CCA). There is mild atherosclerotic plaque formation with minimal narrowing of the right carotid bulb. Normal origin of the right internal carotid (ICA) artery without a hemodynamically significant stenosis. Normal visualized cervical portion of the right internal carotid artery. Normal origin of the right external carotid artery (ECA). LEFT CAROTID ARTERIES: Normal left common carotid artery (CCA). There is mild atherosclerotic plaque formation with minimal narrowing of the left carotid bulb. Normal origin of the left internal carotid (ICA) artery without a hemodynamically significant stenosis. Normal visualized cervical portion of the left internal carotid artery. Normal origin of the left external carotid artery (ECA). VERTEBRAL ARTERIES: Left vertebral artery is dominant cyst appears normal. The right vertebral artery is hypoplastic may terminate as the posterior inferior cerebellar artery. IMPRESSION: Hypoplastic right vertebral artery otherwise unremarkable CTA neck Electronically Signed: Red Arizmendi MD at 17:43 EDT , Service support , STUDY: CTA OF THE BRAIN REASON FOR EXAM: Male, 63 years old. Dizziness RADIATION DOSAGE (If Supplied By Facility): CTDIvol = ( 44.57 ) mGy, DLP = ( 1925.14 ) mGycm TECHNIQUE: CT angiography was performed with a multi-detector CT scanner. Data acquisition was obtained from the skull base through the vertex following intravenous administration of 100 ml of Isovue-370. MIP images were reconstructed from the axial data set. Post-processing of the angiographic images was performed, with multiplanar reformation and 3D reconstruction. Individualized dose optimization techniques were used for this CT. COMPARISON: None. FINDINGS: Normal bilateral petrous carotid arteries. Normal right cavernous carotid artery with a normal supraclinoid bifurcation. Normal left cavernous carotid artery with a normal supraclinoid bifurcation. Normal right A1 segments of the anterior cerebral artery. Normal left A1 segments of the anterior cerebral artery. Normal intact anterior communicating artery (ACOM). Normal bilateral A2 segments of the anterior cerebral arteries. Normal right M1 and M2 segments of the middle cerebral arteries, with a normal M1 bifurcation. Normal left M1 and M2 segments of the middle cerebral arteries, with a normal M1 bifurcation. There is a persistent origin of the right posterior cerebral artery with absence of the posterior communicating artery (PCOM). There is non-visualization of the left posterior communicating artery (PCOM). Right vertebral artery is not well-visualized and may terminate as the posterior inferior cerebellar artery. Normal basilar artery with a normal basilar bifurcation. The visualized bilateral superior cerebellar (SCA) arteries are normal. Normal bilateral P1, P2 and visualized P3 segments of the posterior cerebral arteries. There is no demonstrated aneurysm of the [place]. There is no demonstrated abnormality of the visualized brain. CT/CTA Neck W/WO Contrast IMPRESSION: Hypoplastic right vertebral artery otherwise unremarkable exam. Electronically Signed: Red Arizmendi MD at 17:47 EDT , Service support , CC: Phuc Griffin MD; Sebastien Stahl MD Clay Puddler: Signed CHEST 1 VIEW Observed: 03/27/2018 Status: F Source: [place] (PORTABLE) 4:27 PM [facility] REPOSITORY [facility] Imaging Services [address] [place] [address] Chest 1 View (Portable) MR#: [id number] Acct: [id number] Name: DALE SARABIA Rep #: [id number] : 1955 63 From: Red Arizmendi MD PCP: Sebastien Stahl MD Status: PRE ER Study: Chest 1 View (Portable) Date of Exam: 03/27/18 Exam# [id number] Ordering Dr: Phuc Griffin MD STUDY: X-RAY CHEST REASON FOR EXAM: Male, 63 years old. Cough TECHNIQUE: Single frontal view of the chest. COMPARISON: February 19, 2018 FINDINGS: The lungs are clear and expanded. There is no demonstrated pleural abnormality. Normal size heart. Normal mediastinum and selina. Normal visualized pulmonary arteries. Normal visualized aortic arch and descending thoracic aorta. Normal visualized thoracic spine. Normal visualized ribs, clavicles, and shoulders. There is no demonstrated abnormality of the visualized soft tissue structures of the upper abdomen. RAD/Chest 1 View (Portable) IMPRESSION: Normal x-ray examination of the chest. Electronically Signed: Red Arizmendi MD at 16:47 EDT , Service support , CC: Phuc Griffin MD; Sebastien Stahl MD Clay Puddler: Signed CBC W/DIFF, AUTOMATED Collected: 03/27/2018 Status: F Source: [place] 4:25 PM [facility] REPOSITORY TYPE CODE TESTS RESULT OUT OF RANGE REFERENCE UNITS LAB L100.1000 4.4-11.0 K/mm3 10.1 Normal WBC LAB L100.1200 4.6-6.2 M/mm3 High 6.45 RBC LAB L100.1300 13.0-16.5 g/dl Low 11.9 HGB LAB L100.1400 40-54 % 42.7 Normal HCT LAB L100.1500 80-94 fL Low 66.2 MCV LAB L100.1600 27.0-32.0 pg Low 18.4 MCH LAB L100.1700 32-36 g/gl Low 27.9 MCHC LAB L100.1810 11.6-14.6 % High 19.0 RDW CV LAB L100.1820 35.1-43.9 fl High 44.6 RDW SD LAB L100.1900 150-450 K/mm3 225 Normal PLT LAB L100.2000 6.2-12.0 fl Test Normal MPV not performed LAB L100.2100 47-70 % 55.9 Normal NEUT% LAB L100.2200 19-41 % 29.1 Normal LY% LAB L100.2300 0-10 % 7.2 Normal MONO% LAB L100.2400 0-5 % High 6.3 EO% LAB L100.2500 0-1 % High 1.4 BASO% LAB L100.2550 0.0-0.9 % 0.100 Normal IM GRAN % Result Comment: IG% - Immature Granulocytes (promyelocytes, myelocytes and metamyelocytes) > 1% indicates that a LEFT SHIFT is Present. LAB L100.2620 2.0-7.7 X10 3/uL Absolute Neut Normal 5.6 LAB L100.2720 0.83-4.51 X10 3/ul Absolute Lymph Normal 2.94 LAB L100.5500 ADEQ PLT EST Normal ADEQUATE LAB L100.7300 ANISO Normal 1+ LAB L100.7600 HYPOCHROMASIA Normal RARE LAB L100.7700 MICROCYTES Normal 2+ Performed By: #### L100.0100 #### [facility] [address] [place], [address] COMPREHENSIVE METABOLIC Collected: 03/27/2018 Status: F Source: [facility] 4:25 PM [facility] REPOSITORY TYPE CODE TESTS RESULT OUT OF RANGE REFERENCE UNITS LAB L501.0100 74-106 mg/dL High GLU 177 Result Comment: Fasting Glucose result greater than or equal to 126 mg/dL suggests DIABETES MELLITUS per A.D.A. criteria. Please note revised GLUCOSE reference range effective 2017. LAB L501.1000 7-18 mg/dL Normal BUN 15 LAB L501.1100 0.70-1.30 mg/dL High CREAT,SERUM 1.44 Result Comment: The validity of the calculated GFR AND GFRAA in patients over 70 years has not been determined. Clinical correlation is essential. LAB L501.1110 >60 mL/min Low EST GFR 52 Result Comment: Non- GFR Calc LAB L501.1115 >60 mL/min Normal EST GFR - AA 63 Result Comment: GFR Calc LAB L501.1255 ml/min Normal Estimated CRCL 51.14 LAB L501.1300 10-20 RATIO Normal BUN/CRE 10.4 LAB L501.1500 6.4-8. g/dL Normal 2 T PROT 7.4 LAB L501.1800 3.2-5. g/dL Normal 0 ALB 3.9 LAB L501.1950 2.2-4. g/dL Normal 2 GLOB 3.5 LAB L501.2000 0.9-2. RATIO Normal 4 A/G 1.1 LAB L501.2200 8.5-10 mg/dL Normal .1 CA 8.9 LAB L501.4100 15-37 U/L Normal AST 19 LAB L501.4305 45-117 U/L Normal ALK P 68 LAB L501.4405 16-61 U/L Normal ALT 35 LAB L501.4600 0.20-1 mg/dL Normal .00 T BILI 0.60 LAB L501.5300 136-14 mmol/L Normal 5 NA 139 LAB L501.5600 3.5-5. mmol/L Normal 1 K 3.5 LAB L501.5900 98-107 mmol/L Normal CL 101 LAB L501.6100 21.0-3 mmol/L Normal 2.0 CO2 27.0 LAB L501.6200 5-15 Normal GAP 11 Performed By: #### L500.4050, L501.4010 #### [facility] [address] [place], [place], [address] TROPONIN-I Collected: 03/27/2018 Status: F Source: [place] 4:25 PM [facility] REPOSITORY TYPE CODE TESTS RESULT OUT OF RANGE REFERENCE UNITS LAB L501.4010 <0.045 ng/mL Normal < 0.015 TROPONIN-I Result Comment: TROPONIN-I EXPECTED VALUES <0.045 Negative 0.045 - 0.590 Consistent with Cardiac Damage > OR = 0.600 Critical Value Not every elevated troponin is indicative of NH. These values should be used with clinical judgement in examining the patient's clinical picture for diagnosis. To establish a diagnosis of NH versus myocardial injury, there must be a demonstrated rise and/or fall in the troponin values, in addition to ischemic symptoms, EKG changes, new regional wall motion abnormality, and/or angiographical evidence. PLEASE NOTE: REFERENCE RANGES EDITED 18 Performed By: #### L500.4050, L501.4010 #### [facility] [address] [place], [place], [address] BEDSIDE GLUCOSE Collected: 03/27/2018 Status: F Source: [place] 4:20 PM [facility] REPOSITORY TYPE CODE TESTS RESULT OUT OF REFERENCE UNITS RANGE LAB L501.080 70-110 mg/dL High BEDSIDE GLU 202 Result Comment: MANAGEMENT OF PATIENT CARE PER NURSING PROTOCOL Performed By: #### L501.080 #### [facility] Point of Care [address] [address] CNOVSP Observed: 03/05/2018 Status: COMPLETED Source: [place] 10:10 AM [facility] REPOSITORY Visit (SP) Office (JEN) DALE SARABIA ([id number]) 1955 M Date Time Provider Department 03/05/18 10:10 AM MOSES JORDAN During your visit today, we recorded the following information about you: Temperature Pulse Blood pressure Weight 98.5 degrees 74/minute 121/70 130.6 kg Moses Jordan DO 03/05/2018 10:29 AM Signed Diagnosis: 1) Polycythemia. 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 Has been observed to have an elevated Hgb mass with occasional elevated RBC count over the last 4 years at least prior to evaluation here. I reviewed CBCs from [facility]. Hgb=18.4 gm/dl 07/07. CT A/P in February 2013-no sign recurrent RCC. Had c-scope. One polyp. On Androgel for about 9 yrs. Dose of Androgel was decreased by 50%. Hg 10/04/2105 was 20 g/dl despite doing so. Presents for ongoing management. Interim history: Hospitalized 2 months ago for influenza and pneumonia. Had vaccine. Otherwise his been feeling quite well. In fact since undergoing regular phlebotomy and getting hematocrit lowered, he is no longer having pressure headaches. He has occasional headache related to cervical degenerative disease. Nonetheless, with him feeling better and increasing energy he is able to go back to work full-time when she's been doing now for the last few months. He's not having any shortness of breath at rest. He's had no unusual bleeding or unexplained bruising. PMH, medications and allergies personally reviewed by me today. Any changes documented in appropriate section. ROS: Constitutional: Appetite and energy are normal. Neuro: Denies imbalance. No symptoms of neuropathy. HEENT: No recent change in voice, vision or hearing. Resp: Denies cough and wheeze. CVS: Denies exertional chest pain, PND, orthopnea and LE edema. GI: Denies reflux, n/v, change in bowel habits and abdominal pain. : No dysuria or gross hematuria. Musculoskeletal: Denies bone, back, joint and muscular pain. Derm: No rash. Heme: See above. Psych: Normal mood. PHYSICAL EXAM: Vitals: Blood pressure 121/70, pulse 74, temperature 36.9 ?C (98.5 ?F), temperature source Oral, weight 130.6 kg (288 lb). Well-appearing and in no acute distress. EYES: Sclerae are anicteric bilaterally. NECK: Supple. No enlargement of thyroid. LYMPHATIC: There is no palpable cervical, supraclavicular adenopathy. RESPIRATORY: Inspiratory breath sounds are of normal intensity in all pierce. No rales, wheezes or rhonchi. Expiratory phase is normal. CARDIOVASCULAR: Rhythm is regular. Normal intensity S1/S2. There is no gallop or murmur. ABDOMEN: The abdomen is nondistended. There is no organomegaly. No tenderness. Extremities: Free of edema. SKIN: No jaundice or rash. No petechiae. NEUROLOGIC: gis analyst developer II-XII are grossly intact. No focal motor weakness. ASSESSMENT/PLAN: (D75.1) Secondary polycythemia (primary encounter diagnosis) Assessment: -Previous molecular workup was negative for common mutations associated with polycythemia vera. -Patient becomes quite symptomatic with significant rise in hematocrit when not undergoing phlebotomy. -Goal of therapy is to reduce his total iron body content and thus trying to slow erythropoiesis that way. Exogenous testosterone was in contributing to elevated Hgb as evidenced that he now has a stable lower hemoglobin level with iron depletion and decrease in testosterone dose. -Benefiting nicely from phlebotomy. He was able to return to work part-time. -We discussed the need for lifelong management of this. We also discussed the potential for Hydrea as a way of potentially decreasing need for phlebotomy but he will likely need phlebotomy on some regular basis to help. For now he wants to continue as we are doing and avoid Hydrea. Plan: -Monthly CBC/ferritin with possible phlebotomy. -OV in about 6 months. 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 -Will plan to be done after he undergoes phlebotomy, hydration and administration of IV Ativan. Moses Jordan, DO Moses Jordan DO Referring Provider: MOSES JORDAN [[id number]] Allergies As of Date: 03/05/2018 Noted Allergy Reaction environmental [Other] 12/27/2008 Comments: Seasonal, food allergies THEOPHYLLINE 02/25/2006 5 - Intolerance Comments: very lethargic and muscle cramps Date Reviewed: 03/05/2018 Reviewed by: Tavia Aguilar - Fully Assessed Reason for Visit: Established Patient [175] Primary Visit Diagnosis:History of kidney cancer [Z85.528] Other Visit Diagnoses:Other specified disorders of kidney and ureter [N28.89] Secondary polycythemia [D75.1] Order(s):CT KIDNEY WO/W IVCON [[id number]] Order #: [id number] FUTURE iv contrast (will be provided with radiology test)CT kidney wow Inject, intravenously, once for 1 dose.No IV access, insert saline lock prior to the beginning of sedation, infusion, injection of imaging exam. Discontinue saline lock post exam. If Pt. has a central line or IVAD, may access for administration according to line specific nursing protocol. Once exam is complete flush line and de-access according to line specific nursing protocol in the CT contrast administration guidelines link.Disp: 1 EachRfl: 0 Follow-up and Disposition History Recorded Prescriptions as of 03/05/2018 Sig: FUROSEMIDE 40 MG TABLET Take 40 mg by mouth once hodan* SYMBICORT 160 MCG-4.5 MCG/ACT* Inhale 2 Puffs as instructed * LEVOTHYROXINE 25 MCG TABLET Take 25 mcg by mouth once lewis* METFORMIN 1,000 MG TABLET Take one tablet in AM AND 1 1/2* TOPROL XL 25 MG TABLET,EXTEND* Take 25 mg by mouth once hodan* TAMSULOSIN 0.4 MG CAPSULE Take 0.4 mg by mouth once lewis* LEVOTHYROXINE 200 MCG TABLET Take 200 mcg by mouth once da* AXIRON 30 MG/ACTUATION (1.5 M* Apply 1 Pump as directed once* ASPIRIN 81 MG TABLET Take 81 mg by mouth once hodan* VALSARTAN 80 MG-HYDROCHLOROTH* Take 1 tablet by mouth once d* IV CONTRAST (RADIOLOGY PROCED* CT kidney wow Inject, intrave* ATORVASTATIN 20 MG TABLET Take 20 mg by mouth once hodan* TRIAMCINOLONE ACETONIDE 0.1 %* Apply 1 application to affect* [id number]* Take 2 tablets by mouth as ne* Medication notes this encounter TRIAMCINOLONE ACETONIDE 0.1 % TOPICAL CREAM >> Tavia Aguilar MA 03/05/2018 9:53 AM >> TAVIA AGUILAR MA Erika Mar 05, 2018 9:53 AM No longer using. Problem List As Of Date 03/05/2018 Noted Resolved Obesity, unspecified [E66.9] Priority: Severe Unspecified essential hypertension [I10] Priority: A More... Unspecified hypothyroidism [E03.9] Priority: B Dysthymic disorder [F34.1] Priority: A More... More... Unspecified asthma [J45.909] INVALID FOR* Priority: B More... Other testicular hypofunction [E29.1] INVALID FOR* Priority: A More... Obstructive sleep apnea (adult) (pediatric) [G4*INVALID FOR* Priority: A Urinary calculus, unspecified [N20.9] INVALID FOR* Priority: Severe More... Allergic rhinitis, cause unspecified [J30.9] INVALID FOR* Priority: B SMALL UPPER AIRWAY -- DIFFICULT INTUBATION [J98*INVALID FOR* Priority: Moderate More... Impaired fasting glucose [R73.01] INVALID FOR* Priority: Moderate More... More... CAD (coronary artery disease) [I25.10] INVALID FOR* Priority: Severe More... Renal cell carcinoma [C64.9] INVALID FOR* Priority: Very Severe More... Secondary polycythemia [D75.1] INVALID FOR* Encounter Status:Closed by MOSES JORDAN DO on 03/05/18 PROGRESS Observed: 03/05/2018 Status: COMPLETED Source: [place] 10:02 AM [facility] REPOSITORY HNO ID: [id number] Author: Moses Jordan Service: (none) Author Type: Physician Type: Progress Notes Filed: 03/05/2018 10:29 AM Note Text: Diagnosis: 1) Polycythemia. 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 Has been observed to have an elevated Hgb mass with occasional elevated RBC count over the last 4 years at least prior to evaluation here. I reviewed CBCs from [facility]. Hgb=18.4 gm/dl 07/07. CT A/P in February 2013-no sign recurrent RCC. Had c-scope. One polyp. On Androgel for about 9 yrs. Dose of Androgel was decreased by 50%. Hg 10/04/2105 was 20 g/dl despite doing so. Presents for ongoing management. Interim history: Hospitalized 2 months ago for influenza and pneumonia. Had vaccine. Otherwise his been feeling quite well. In fact since undergoing regular phlebotomy and getting hematocrit lowered, he is no longer having pressure headaches. He has occasional headache related to cervical degenerative disease. Nonetheless, with him feeling better and increasing energy he is able to go back to work full-time when she's been doing now for the last few months. He's not having any shortness of breath at rest. He's had no unusual bleeding or unexplained bruising. PMH, medications and allergies personally reviewed by me today. Any changes documented in appropriate section. ROS: Constitutional: Appetite and energy are normal. Neuro: Denies imbalance. No symptoms of neuropathy. HEENT: No recent change in voice, vision or hearing. Resp: Denies cough and wheeze. CVS: Denies exertional chest pain, PND, orthopnea and LE edema. GI: Denies reflux, n/v, change in bowel habits and abdominal pain. : No dysuria or gross hematuria. Musculoskeletal: Denies bone, back, joint and muscular pain. Derm: No rash. Heme: See above. Psych: Normal mood. PHYSICAL EXAM: Vitals: Blood pressure 121/70, pulse 74, temperature 36.9 ?C (98.5 ?F), temperature source Oral, weight 130.6 kg (288 lb). Well-appearing and in no acute distress. EYES: Sclerae are anicteric bilaterally. NECK: Supple. No enlargement of thyroid. LYMPHATIC: There is no palpable cervical, supraclavicular adenopathy. RESPIRATORY: Inspiratory breath sounds are of normal intensity in all pierce. No rales, wheezes or rhonchi. Expiratory phase is normal. CARDIOVASCULAR: Rhythm is regular. Normal intensity S1/S2. There is no gallop or murmur. ABDOMEN: The abdomen is nondistended. There is no organomegaly. No tenderness. Extremities: Free of edema. SKIN: No jaundice or rash. No petechiae. NEUROLOGIC: gis analyst developer II-XII are grossly intact. No focal motor weakness. ASSESSMENT/PLAN: (D75.1) Secondary polycythemia (primary encounter diagnosis) Assessment: -Previous molecular workup was negative for common mutations associated with polycythemia vera. -Patient becomes quite symptomatic with significant rise in hematocrit when not undergoing phlebotomy. -Goal of therapy is to reduce his total iron body content and thus trying to slow erythropoiesis that way. Exogenous testosterone was in contributing to elevated Hgb as evidenced that he now has a stable lower hemoglobin level with iron depletion and decrease in testosterone dose. -Benefiting nicely from phlebotomy. He was able to return to work part-time. -We discussed the need for lifelong management of this. We also discussed the potential for Hydrea as a way of potentially decreasing need for phlebotomy but he will likely need phlebotomy on some regular basis to help. For now he wants to continue as we are doing and avoid Hydrea. Plan: -Monthly CBC/ferritin with possible phlebotomy. -OV in about 6 months. 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 -Will plan to be done after he undergoes phlebotomy, hydration and administration of IV Ativan. Moses Jordan, DO LEONID Tompkins CBC Collected: 03/05/2018 Status: F Source: [place] 9:46 AM [facility] REPOSITORY TYPE CODE TESTS RESULT OUT OF REFERENCE UNITS RANGE LAB WWBC 3.70-11.00 k/uL [place] WBC 7.97 LAB WRBC 4.20-6.00 m/uL [place] RBC 5.79 LAB WHGB 13.0-17.0 g/dL Low [place] Hemoglobin 10.9 LAB WHCT 39.0-51.0 % Low [place] Hematocrit 38.5 LAB WMCV 80.0-100.0 fL Low [place] MCV 66.5 LAB WMCH 26.0-34.0 pg Low [place] MCH 18.8 LAB WMCHC 30.5-36.0 g/dL Low [place] MCHC 28.3 Result Comment: Result checked and verified LAB WRDW 11.5-15.0 % High [place] RDW 21.5 LAB WPLT 150-400 k/uL [place] 213 Platelet Cnt LAB WMPV 9.0-12.7 fL [place] MPV 10.7 Result Comment: Test performed at: [address] [place] [address]. FERRITIN Collected: 03/05/2018 Status: F Source: [place] 9:46 AM [facility] REPOSITORY TYPE CODE TESTS RESULT OUT OF REFERENCE UNITS RANGE LAB FERR 30.3-565.7 ng/mL Low Ferritin 13.2 Performed By: #### FERR #### [facility] [address] [place], [place] [address] 12 LEAD ELECTROCARDIOGRAM Observed: 02/25/2018 Status: F Source: [place] 1:37 PM [facility] REPOSITORY [facility] Cardiovascular Services [address] [place] [address] 12 Lead EKG 02/19/18 1017 MR#: [id number] Acct: [id number] Name: DALE SARABIA Rep #: [id number] : 1955 63 From: Moses Fields MD Attending Dr: Status: DEP ER Ordering Dr: Judd Fisher DO Date: 02/19/18 Location: ED Sex: M C Admitted: Test Reason : SYNCOPE Blood Pressure : / mmHG Vent. Rate : 067 BPM Atrial Rate : 067 BPM P-R Int : 176 ms QRS Dur : 098 ms QT Int : 404 ms P-R-T Axes : 055 -26 005 degrees QTc Int : 426 ms Normal sinus rhythm Leftward axis Poor R wave progression Confirmed by EMANI MICHELLE, MOSES ([id number]), film editor RIMMA LAZARO ([id number]) on 02/25/2018 1:37:02 PM Referred By: AR Confirmed By:MOSES FIELDS MD 02/25/18 1337 Date Moses Fields MD CC: Judd Fisher DO; Sebastien Stahl Signed EMERGENCY DEPARTMENT Observed: 02/19/2018 Status: F Source: [place] SUMMARY 3:28 PM [facility] REPOSITORY [facility] Medical Records Department [address] [place] [address] Emergency Department Summary 02/19/18 1304 MR#: [id number] Acct: [id number] Name: DALE SARABIA Rep #: [id number] : 1955 63 From: Judd Fisher DO PCP: Sebastien Stahl Status: DEP ER - ER Visit Summary Date of Service: 02/19/18 Chief Complaint: [] Near-syncope History of Present Illness: The patient is a 63 M [] complaining of near syncope after just 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 He reports procedure was done on his right eye. He reports after the procedure was over he had a sharp pain in his right eye and had a near syncopal episode. He reports continued pain in his right eye. He reports the procedure was completed fully and that there was no further concerns from the animal nursery worker. Patient denies chest pain or shortness of breath. Reports nausea, denies vomiting. Denies abdominal pain. No other complaints at this time. Physical Examination: [] Afebrile, vital signs stable. 63-year-old morbidly obese male in no acute distress. Cardiovascular exam is regular rate and rhythm. Lungs are clear to auscultation. Abdomen is soft and nontender. Remainder of exam is unremarkable. Test Results: [] Chest x-ray 2 views negative EKG: Normal sinus rhythm, rate 67 without ectopy or ischemic changes. This is unchanged from previous EKG. CBC, BMP, troponin all within normal limits. Emergency Department Course and Treatment: [] Patient was given intravenous fluids and fentanyl for the discomfort. On serial exam he had improvement of symptoms. He had a negative workup I did not feel any further evaluation is warranted. Patient looks well is able to ambulate and is having a conversation with family members in his room. Patient was encouraged to follow-up with his primary care physician. Treatment Plan: [] Follow-up with PCP. Disposition: [] Discharge, stable. Impression: [] Near-syncope This note was generated with Precise Softwareation software. It may contain incorrect words, spelling, and punctuation that were not noted in review of the chart prior to signing ED Disposition - Plan for ED Patient: Chief Complaint: Syncope Referrals: Sebastien Stahl MD [Primary Care Provider] - What to do if you have Problems For any increased pain, shortness of breath, bleeding, nausea or vomiting, chest pain, or any unexpected problems, contact your Primary Care Provider. Call [employer] [facility] ([phone]) or report to the closest Emergency Room. Call 911 if necessary. 02/19/18 1528 <Electronically signed by Judd Fisher DO> Date Judd Fisher DO Cosigner Signature (If Indicated): Date CC: Sebastien Stahl DISCHARGE INSTRUCTION Observed: 02/19/2018 Status: F Source: [place] 1:07 PM [facility] REPOSITORY [facility] Medical Records Department [address] [place] [address] Discharge Instruction 02/19/18 1306 MR#: [id number] Acct: [id number] Name: DALE SARABIA Rep #: [id number] : 1955 63 From: Judd Fisher DO PCP: Sebastien Stahl Status: REG ER ED Disposition - Plan for ED Patient: Disposition: Home or Assisted Living Chief Complaint: Syncope Instructions: ED Near Syncope Vasovagal Referrals: Sebastien Stahl MD [Primary Care Provider] - What to do if you have Problems For any increased pain, shortness of breath, bleeding, nausea or vomiting, chest pain, or any unexpected problems, contact your Primary Care Provider. Call [facility] ([phone]) or report to the closest Emergency Room. Call 911 if necessary. 02/19/18 1307 <Electronically signed by Judd Fisher DO> Date Judd Fisher DO Cosigner Signature (If Indicated): Date CC: Sebastien Stahl CBC W/DIFF, AUTOMATED Collected: 02/19/2018 Status: F Source: [place] 11:10 AM [facility] REPOSITORY TYPE CODE TESTS RESULT OUT OF RANGE REFERENCE UNITS LAB L100.1000 4.4-11.0 K/mm3 6.8 Normal WBC LAB L100.1200 4.6-6.2 M/mm3 6.03 Normal RBC LAB L100.1300 13.0-16.5 g/dl Low 11.3 HGB LAB L100.1400 40-54 % 40.8 Normal HCT LAB L100.1500 80-94 fL Low 67.7 MCV LAB L100.1600 27.0-32.0 pg Low 18.7 MCH LAB L100.1700 32-36 g/gl Low 27.7 MCHC LAB L100.1810 11.6-14.6 % High 19.7 RDW CV LAB L100.1820 35.1-43.9 fl High 48.0 RDW SD LAB L100.1900 150-450 K/mm3 203 Normal PLT LAB L100.2000 6.2-12.0 fl Test Normal MPV not performed LAB L100.2100 47-70 % High 70.6 NEUT% LAB L100.2200 19-41 % Low 15.5 LY% LAB L100.2300 0-10 % 7.2 Normal MONO% LAB L100.2400 0-5 % 5.0 Normal EO% LAB L100.2500 0-1 % High 1.6 BASO% LAB L100.2550 0.0-0.9 % 0.100 Normal IM GRAN % Result Comment: IG% - Immature Granulocytes (promyelocytes, myelocytes and metamyelocytes) > 1% indicates that a LEFT SHIFT is Present. LAB L100.2620 2.0-7.7 X10 3/uL Absolute Neut Normal 4.8 LAB L100.2720 0.83-4.51 X10 3/ul Absolute Lymph Normal 1.05 LAB L100.5500 ADEQ PLT EST Normal ADEQUATE LAB L100.7300 ANISO Normal 2+ LAB L100.7500 POLYCHROMASIA Normal 1+ LAB L100.7600 HYPOCHROMASIA Normal 1+ LAB L100.7700 MICROCYTES Normal 1+ Performed By: #### L100.0100 #### [facility] [address] [place], [address] BASIC METABOLIC Collected: 02/19/2018 Status: F Source: [place] PROFILE ([facility]) 11:10 AM [facility] REPOSITORY TYPE CODE TESTS RESULT OUT OF RANGE REFERENCE UNITS LAB L501.0100 74-106 mg/dL High GLU 186 Result Comment: Fasting Glucose result greater than or equal to 126 mg/dL suggests DIABETES MELLITUS per A.D.A. criteria. Please note revised GLUCOSE reference range effective 2017. LAB L501.1000 7-18 mg/dL Normal BUN 16 LAB L501.1100 0.70-1.30 mg/dL Normal CREAT,SERUM 1.18 Result Comment: The validity of the calculated GFR AND GFRAA in patients over 70 years has not been determined. Clinical correlation is essential. LAB L501.1110 >60 mL/min Normal EST GFR 66 Result Comment: Non- GFR Calc LAB L501.1115 >60 mL/min Normal EST GFR - AA 80 Result Comment: GFR Calc LAB L501.1255 ml/min Normal Estimated CRCL 60.38 LAB L501.1300 10-20 RATIO Normal BUN/CRE 13.6 LAB L501.2200 8.5-10 mg/dL Normal .1 CA 8.9 LAB L501.5300 136-14 mmol/L Normal 5 NA 137 LAB L501.5600 3.5-5. mmol/L Normal 1 K 4.3 LAB L501.5900 98-107 mmol/L Normal CL 105 LAB L501.6100 21.0-3 mmol/L Normal 2.0 CO2 27.0 LAB L501.6200 5-15 Normal GAP 5 Performed By: #### L500.2500, L501.4010 #### [facility] [address] [place], [address] TROPONIN-I Collected: 02/19/2018 Status: F Source: [place] 11:10 AM [facility] REPOSITORY TYPE CODE TESTS RESULT OUT OF RANGE REFERENCE UNITS LAB L501.4010 <0.045 ng/mL Normal < 0.015 TROPONIN-I Result Comment: TROPONIN-I EXPECTED VALUES <0.045 Negative 0.045 - 0.590 Consistent with Cardiac Damage > OR = 0.600 Critical Value Not every elevated troponin is indicative of NH. These values should be used with clinical judgement in examining the patient's clinical picture for diagnosis. To establish a diagnosis of NH versus myocardial injury, there must be a demonstrated rise and/or fall in the troponin values, in addition to ischemic symptoms, EKG changes, new regional wall motion abnormality, and/or angiographical evidence. PLEASE NOTE: REFERENCE RANGES EDITED 18 Performed By: #### L500.2500, L501.4010 #### [facility] [address] [place], [address] BNP,B-TYPE NATRIURETIC Collected: 02/19/2018 Status: F Source: [place] PEPTIDE 11:10 AM [facility] REPOSITORY TYPE CODE TESTS RESULT OUT OF RANGE REFERENCE UNITS LAB L503.6620 0-100 pg/mL Normal B-TYPE 2.7 BRIE PEP Performed By: #### L503.6620 #### [facility] [address] [place], [address] CHEST PA AND LATERAL Observed: 02/19/2018 Status: F Source: [place] 10:06 AM [facility] REPOSITORY [facility] Imaging Services [address] [facility] [place] [address] Chest PA and Lateral MR#: [id number] Acct: [id number] Name: DALE SARABIA Rep #: [id number] : 1955 M 63 From: Anshul Arboleda MD PCP: Sebastien Stahl Status: REG ER Study: Chest PA and Lateral Date of Exam: 02/19/18 Exam# [id number] Ordering Dr: Judd Fisher DO STUDY: X-RAY CHEST REASON FOR EXAM: Male, 63 years old. Chest pain. TECHNIQUE: PA and lateral views of the chest. COMPARISON: Comparison is made with prior study dated January 03, 2018. FINDINGS: EKG electrodes are seen. Mild elevation of the right hemidiaphragm. The lungs are clear. There is no demonstrated pleural abnormality. There is borderline cardiomegaly. Normal mediastinum and selina. Normal visualized pulmonary arteries. Normal visualized aortic arch and descending thoracic aorta. Normal visualized thoracic spine. Normal visualized ribs, clavicles, and shoulders. There is no demonstrated abnormality of the visualized soft tissue structures of the upper abdomen. RAD/Chest PA and Lateral IMPRESSION: Mild elevation of the right hemidiaphragm. The lungs are clear. Electronically Signed: Anshul Arboleda MD at 12:36 EDT Tel [phone], Service support , CC: Judd Fisher DO; Sebastien Stahl Clay Puddler: Signed CBC-COMPLETE BLOOD CNT Collected: 01/14/2018 Status: F Source: [place] NO DIFF 10:15 AM [facility] REPOSITORY TYPE CODE TESTS RESULT OUT OF RANGE REFERENCE UNITS LAB L100.1000 4.4-11.0 K/mm3 Normal WBC 9.7 LAB L100.1200 4.6-6.2 M/mm3 High RBC 6.41 LAB L100.1300 13.0-16.5 g/dl Low HGB 12.0 LAB L100.1400 40-54 % Normal HCT 42.3 LAB L100.1500 80-94 fL Low MCV 66.0 LAB L100.1600 27.0-32.0 pg Low MCH 18.7 LAB L100.1700 32-36 g/gl Low MCHC 28.4 LAB L100.1810 11.6-14.6 % High RDW CV 21.2 LAB L100.1820 35.1-43.9 fl High RDW SD 48.3 LAB L100.1900 150-450 K/mm3 Normal PLT 273 LAB L100.2000 6.2-12.0 fl Normal MPV 9.9 Performed By: #### L100.0500, L100.4500 #### [facility] [address] [place], [address] DIFFERENTIAL COMMENT Collected: 01/14/2018 Status: F Source: [place] 10:15 AM [facility] REPOSITORY TYPE CODE TESTS RESULT OUT OF RANGE REFERENCE UNITS LAB L100.4500 Normal SMEAR COMMENT COMMENT Result Comment: SLIDE SCANNED - 1+ ANISO, 1+ TARGET CELLS. Performed By: #### L100.0500, L100.4500 #### [facility] [address] [place], [address] FERRITIN Collected: 01/14/2018 Status: F Source: [place] 10:15 AM [facility] REPOSITORY TYPE CODE TESTS RESULT OUT OF REFERENCE UNITS RANGE LAB L503.6550 26-388 ng/mL Low FERRITIN 10 Performed By: #### L503.6550 #### [facility] [address] [place], [address] PULMONARY VISIT REPORT Observed: 01/06/2018 Status: F Source: [place] 2:49 PM [facility] REPOSITORY [facility] [address] [place] [address] OFFICE VISIT Date of Service: 01/06/18 MR#: [id number] Acct: [id number] Name: DALE SARABIA Chris Rep #: [id number] : 1955 Provider: Toma Morley Age/Sex: 62/M Location: [facility].PMW Status: Signed Assessment AND Plan 1. RHINA (obstructive sleep apnea) G47.33 Status Chronic Plan Stable. He is using and benefiting from current CPAP settings. No indication for titration study at this time. Follow-up with Dr. Storey in 1 year. He has been encouraged to contact the office if something new or symptoms worsen in the meantime. 2. CLARK (dyspnea on exertion) R06.09 Status Chronic Plan Stable. No indication for any additional testing at this time. Follow-up with Dr. Storey in 1 year. Again, he has been encouraged to contact the office if his symptoms worsen in the meantime. He conveys understanding. Plan Detail Follow Up 1 Year (Emiliano) HPI 6 M FU: Chief Complaint: sleep apnea HPI Comments Details: This is a 62 year old very pleasant m, here to follow up for sleep apnea and shortness of breath on exertion. Current use of pressure support therapy is on average of 9 hours per night with current settings of 13 cmH2O. DALE denies any daytime somnolence, dry mouth in the morning, nocturia, snoring through the mask, morning headaches or difficulty with mask leaks. DALE reports feeling rested in the morning and is benefitting from current therapy. Compliance report was reviewed and shows 100% compliance. Current AHI is 0.6 events per hour and leaks do not appear to be an issue. Reports only experiencing shortness of breath when going up and down steps. This has not changed since last office visit. He is compliant with his Symbicort 2 puffs twice daily. He does report either rinsing his mouth out with taking a drink after each use. He denies any medication side effects such as sore throat or thrush. He has not needed to utilize his rescue inhaler. He was seen in the ED over the weekend with complaints of a cough, he was admitted to the hospital overnight and diagnosed with pneumonia and influenza. He was discharged on an antibiotic and a prednisone taper. He continues to have the cough that is productive of clear sputum, in addition to nasal drainage and increased wheezing. He does believe that he has began to turn the corner. He denies any chest pain or palpitations. He denies any hemoptysis. He has not experienced any recurrent fever, chills or body aches. He does report fatigue. See complete review of systems. Intake Vital Signs01/06/18 Height 5 ft 9 in 01/06/18 Weight: 294 lb Intake Visit Reasons: 6 M FU DME Vendor: [employer] Accompanied by: Self Allergies theophylline Allergy (Verified 01/06/18 10:14) Unknown Medications Aspirin [Aspirin, Baby] 81 mg PO DAILY@0800 03/17/16 [History Confirmed 01/03/18] Tamsulosin HCl [Flomax] 0.4 mg PO DAILY 03/17/16 [History Confirmed 01/03/18] furosemide 40 mg tablet 40 mg PO QDAY 12/02/17 [History Confirmed 01/03/18] levothyroxine 200 mcg tablet 225 mcg PO .COMPLEX tab 12/04/17 [History Confirmed 01/03/18] budesonide-formoterol HFA 160 mcg-4.5 mcg/actuation aerosol inhaler 2 puff INHALATION Q12H 01/01/18 [History Confirmed 01/03/18] Metformin HCl 1,000 mg PO BREAKFAST 01/03/18 [History Confirmed 01/06/18] Metformin HCl 1,500 mg PO DINNER 01/03/18 [History Confirmed 01/06/18] Metoprolol Succinate [Toprol Xl] 25 mg PO QDAY 01/03/18 [History Confirmed 01/06/18] Acetaminophen [Tylenol Tablet] 650 mg PO Q6H PRN PRN tab 01/04/18 [Rx Confirmed 01/06/18] Azithromycin [Zithromax] 250 mg PO DAILY #4 tab 01/04/18 [Rx Confirmed 01/06/18] Cefdinir [Omnicef [equiv]] 300 mg PO Q12H #8 cap 01/04/18 [Rx Confirmed 01/06/18] Prednisone 10 mg PO UD #30 tab 01/04/18 [Rx Confirmed 01/06/18] Valsartan [Diovan] 80 mg PO DAILY #30 tab 01/04/18 [Rx Confirmed 01/06/18] PFSH Medical History 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) Palpitations (Chronic) Other group home (current) 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 (Chronic) History of renal cell cancer (Chronic) Benign prostatic hypertrophy (Chronic) Type II diabetes mellitus (Chronic) Hyperlipidemia (Chronic) Obesity (Chronic) COPD (chronic obstructive pulmonary disease) (Chronic) Obstructive sleep apnea (Chronic) Hypothyroidism (Chronic) Hypertension (Chronic) Acute tear medial meniscus (Acute) Dyspnea (Acute) Instability of medial collateral ligament of knee (Acute) 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) Nephrolithiasis (Acute) Precordial chest pain (Acute) Right elbow pain (Acute) Right knee pain (Acute) Rupture of right biceps tendon (Acute) Secondary polycythemia (Acute) Shortness of breath (Acute) Trochanteric bursitis, left hip (Acute) Asthma (Chronic) Coronary artery disease (Chronic) Depression (Chronic) Osteoarthritis, knee (Chronic) Sciatica (Chronic) Surgical History Postsurgical percutaneous transluminal coronary angioplasty (PTCA) status (Chronic) Status post right partial nephrectomy (Chronic) H/O lithotripsy (Resolved) History of tonsillectomy (Resolved) L eye surgery (Resolved) partial nephrectomy for renal cell cancer (Resolved) Family History Mother CAD (coronary artery disease) Social History Smoking Status: Former smoker quit date: 09/29/84 pack-years: 17 how long ago did patient quit smokin, 1.5/d second hand exposure: Yes alcohol intake: never substance use type: does not use Review of Systems Const CONSTITUTIONAL: Positive fatigue and headache(s); negative anorexia, body ache, chills, daytime sleepiness, fever(s), night sweats, oral thrush, stops breathing during sleep, weight loss, sleeping in chair, weight loss, weight gain, frequent colds, seasonal allergies, other or orthopnea EETM Ear Nose Throat Mouth: Positive hearing normal, dry mouth in morning, headache(s), nasal discharge, post nasal drip and sore throat; negative hard of hearing, hoarseness, change in vision, itchy eyes, eye pain, swallowing Difficulty, ear pain, nose bleed, mouth pain, nasal congestion, sinus pain, sinus pressure or other Cardio Cardiovascular: Negative chest pain, chest pain at rest, chest pain with activity, irregular heart rhythm, edema, shortness of breath when lying down, palpitations, murmur or other Resp Respiratory: Positive as per HPI, shortness of breath shortness of breath: Positive worsening and with activity, wheezing, cough cough: Positive productive color: Positive thick and clear and inhalers; negative pain with cough, chest congestion, chest tightness, pain on inspiration, increase use of rescue inhalers, snoring, apnea or other Gastro Gastrointestional: Negative bloody stools, change in appetite, difficulty swallowing, reflux, hematemesis, melena stool, loose stool, constipation or other Genitourinary: Negative blood in urine, nocturia, pain with urination or other Musc Musculoskeletal: Negative body pain, back pain, neck pain or other Skin/Breast Skin/Breast: Negative dry skin, itching, rash, unusual bruising, breast lump or other Neuro Neurological: Positive weakness; negative restless legs, confusion or other Psych Psychocological: Negative abnormal sleep pattern, anxiety, thoughts of hurting self/others, hopelessness or other Lymph Lymphatic: Negative easy bleeding, easy bruising, swollen lymph nodes or other Exam Const Constitutional: Positive conversant, cooperative, in no acute respiratory distress, healthy appearing, well developed, well nourished, good hygiene and obese Head Head: Positive normocephalic and atraumatic; negative cyanosis of lips/distal nose Eyes Eye: Positive clear conjunctiva and nystagmus; negative scleral abnormality Ears Ear: Positive hearing normal; negative hard of hearing Nose Nose: Positive external nose normal and no nasal discharge; negative epistaxis Mouth Mouth: Positive post nasal drip, crowded posterior oropharynx, oral mucosae normal, no lesions and good dentition; negative malodorous breath or oral thrush present Mallampati Score: IV: Mallampati Score Neck Neck: Positive normal visual inspection, full ROM, trachea midline, thick neck and male neck greater than 43 cm (17 in); negative lymphadenopathy, JVD or tender Chest Wall Chest: Positive normal inspection of the chest and symmetric chest movement; negative increased A/P diameter Resp lung sounds: Positive wheezes wheezing: Positive global, wheeze present on forced exhalation, diminished, normal expiratory time and normal respiratory effort; negative rhonchi, rales, dullness to percussion, increased work of breathing or use of accessory muscles Cardio Cardiac: Positive regular rate, regular rhythm, S1 normal and S2 normal; negative murmur GI GI: Positive normal to inspection, normal bowel sounds and obese; negative distended Genitourinary: Positive deferred Musc Musculoskeletal: Positive steady gait and ROM normal; negative kyphosis or scoliosis Skin Pulmonary Skin Exam: Positive intact; negative rash, lesion, ulcers, erythema, scaly or dermal atrophy Pulses Pulse: Yes pulses normal x4 extremities Extremities Extremities: Yes edema Location: lower extremity location: Bilateral pitting +1, Yes capillary refill normal, No clubbing, No cyanosis, No stasis dermatitis Neuro Neurologic: Yes conversant, Yes no focal neuro deficits, Yes cooperative, Yes normal cognition, Yes normal coordination, Yes normal concentration, Yes understands questions Lymph Lymphatic: No lymphadenopathy, No tenderness, No cervical adenopathy, No axillary adenopathy Psych Appearance: Positive grossly normal, eye contact and well kempt Mental Status: Positive mental status grossly normal Mood: Positive congruent mood Affect: Positive normal affect Coding Level of Care Code Off vis,est,level 3 Diagnoses RHINA (obstructive sleep apnea) G47.33 CLARK (dyspnea on exertion) R06.09 01/06/18 1449 <Electronically signed by Toma ADAMS> Date Toma ADAMS Cosigner Signature: Date (if applicable) CC: Sebastien Stahl 12 LEAD ELECTROCARDIOGRAM Observed: 01/06/2018 Status: F Source: [facility] 8:43 AM [facility] REPOSIT[facility] Cardiovascular Services [address] [place] [id number] 12 Lead EKG 01/03/18 0832 MR#: [id number] Acct: [id number] Name: DALE SARABIA Rep #: [id number] : 1955 62 From: Rafael Solorio MD Attending Dr: Juli Rodriguez Status: DIS IN Ordering Dr: Maury Daniels MD Date: 01/03/18 Location: [facility] Sex: M C Admitted: 01/03/18 Test Reason : SOB Blood Pressure : / mmHG Vent. Rate : 119 BPM Atrial Rate : 119 BPM P-R Int : 168 ms QRS Dur : 094 ms QT Int : 324 ms P-R-T Axes : 053 -41 015 degrees QTc Int : 455 ms Sinus tachycardia Left axis deviation Abnormal ECG Confirmed by BRIAN MICHELLE, RAFAEL ([id number]), film editor RIMMA LAZARO ([id number]) on 01/06/2018 8:43:45 AM Referred By: ARIS Confirmed By:RAFAEL SOLORIO MD 01/06/18 0843 Date Rafael Solorio MD CC: Juli Rodriguez; Kenny Daniels MD; Sebastien Stahl Signed HISTORY AND PHYSICAL Observed: 01/04/2018 Status: F Source: [facility] 6:21 PM [facility] REPOS[facility] Medical Records Department [address] [address] History and Physical 01/03/18 1532 MR#: [id number] Acct: [id number] Name: DALE SARABIA Rep #: [id number] : 1955 62 From: William VASQUEZ PCP: Sebastien Stahl Status: DIS IN Y Location: [place] [address] ADDENDUM by Juli Rodriguez on 01/04/18 at 1821 Code Visit He has secondary polycythemia and has phlebotomy once a month. This should be added to his problem list. 01/04/18 182 <Electronically signed by Maryann Rodriguez DO> Date Maryann Rodriguez DO cc: PEDRO Laws; Juli Rodriguez; Sebastien Stahl * Signed ADDENDUM by Juli Rodriguez on 01/04/18 at 1808 Code Visit This patient was seen in conjunction with William VASQUEZ. I have independently interviewed and examined the patient and reviewed pertinent historical, laboratory and other data. Please refer to history and physical note for details of this patient's presentation, findings and recommendations. I have reviewed William's note and concur fully with documented findings. In brief, patient is a 62YO male admitted with septic shock with a peak lactic acid of 5.9 but no hypotension secondary to influenza A. He has had symptoms for 3 days. 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 Chest x-ray shows a poor inspiratory effort with possible pneumonia in the right base versus atelectasis. Physical examination: Symmetric chest rise, no conversational dyspnea at the time of my exam, no accessory muscle use. Fair air exchange but diminished breath sounds. Occasional expiratory wheeze, no rales. I agree with the remainder of the physical exam as documented below by William VASQUEZ Assessment: 1. Septic shock with a lactic acid of 5.9 secondary to influenza A with marked dehydration and poor tissue perfusion. 2. Influenza A 3. Microcytic anemia 4. History of renal cell cancer 5. Dehydration I have discussed my assessment with William and orders have been written. I see no need for Tamiflu at this time since he has been symptomatic for 3 days. Inpatient E AND M: [id number] Init Hosp L3 01/04/18 1808 <Electronically signed by Maryann Rodriguez DO> Date Maryann Rodriguez DO cc: PEDRO Laws; Juli Rodriguez; Sebastien Stahl * Signed Problem List (1) RLL pneumonia Status: Acute (2) Sepsis Status: Acute (3) Influenza A Status: Acute (4) CAD (coronary artery disease) Status: Chronic (5) History of renal cell cancer Status: Chronic (6) Benign prostatic hypertrophy Status: Chronic (7) Type II diabetes mellitus Status: Chronic (8) Hyperlipidemia Status: Chronic (9) Obesity Status: Chronic (10) COPD (chronic obstructive pulmonary disease) Status: Chronic (11) Obstructive sleep apnea Status: Chronic (12) Hypothyroidism Status: Chronic (13) Hypertension Status: Chronic History of Present Illness Date of Admission: 01/03/18 Chief Complaint: SOB The patient is a 62 year old M with a hx of asthma, COPD, RHINA, CAD s/p stents 2010, renal cancer s/p partial nephrectomy 2010, diastolic CHF, who presents to the ED with SOB and cough. 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 He has been feeling progressively worse over the past two days. He is coughing up minimal mucus at this point. He has had fevers, in the ER up to 102.2. At home he has had fevers, chills, myalgias, malaise, and weakness. At home he uses symbicort and CPAP at night. He does not wear O2 normally. These have not provided him reliev. In the ER he tested positive for Flu A. He also appears to have a RLL pna. He follows Dr. Storey for pulmonology. He also has CHF but has minimal edema. He is a former smoker, quit in the 80s, smoked about 15 years. [] Past Medical History Past Medical History (Chronic Problems): Chronic Problems (Last Updated 01/01/18 @ 13:42 by Lisa Heck) CAD (coronary artery disease) (Chronic) 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) 05/22/11, PTCA/stent X [address] 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) History of renal cell cancer (Chronic) Benign prostatic hypertrophy (Chronic) Type II diabetes mellitus (Chronic) Hyperlipidemia (Chronic) Obesity (Chronic) COPD (chronic obstructive pulmonary disease) (Chronic) Obstructive sleep apnea (Chronic) Hypothyroidism (Chronic) Status post right partial nephrectomy (Chronic) Hypertension (Chronic) Allergies theophylline Allergy (Verified 01/03/18 08:14) Unknown Home Medications: Ambulatory Orders Medication Instructions Recorded Aspirin [Aspirin, Baby] 81 mg PO DAILY@0800 03/17/16 Tamsulosin HCl [Flomax] 0.4 mg PO DAILY 03/17/16 Surgical History: - - Cardiac stents him a right partial nephrectomy both in 2010 Psychiatric History: No pertinent psych hx Lives: With Family Smoking Status: Former smoker Alcohol: None Drugs: None - *Family History Maternal History Items: No pertinent history Paternal History Items: No pertinent history Review of Systems Constitutional: Reports: Chills, Fever, Malaise, Weakness, Fatigue. Denies: Weight Change HEENT: Denies: Head Aches, Sinus Congestion, Sinus Drainage Cardiovascular: Denies: Chest Pain, Palpitations Respiratory: Reports: Cough, Shortness of Breath, Shortness of breath at rest, Shortness of breath upon exertion. Denies: Hemoptysis, Pleuritic Pain, Sputum production, Wheezing Gastrointestinal: Denies: Abdominal Pain, Nausea, Vomiting Genitourinary: Denies: Dysuria Musculoskeletal: Denies: Joint Pain, Joint Tenderness Skin: Denies: Rash, Wounds Neurological: Denies: Numbness, Tingling, Focal weakness Psychiatric: Denies: Anxiety, Depression, Homicidal Ideations, Suicidal Ideations Hematologic/ Lymphatic: Denies: Easy Bruising, Easy Bleeding VTE Information - Inpt Only VTE Present on Admission: No VTE Mechan Device Prophylaxis: SCD's VTE Pharm Prophylaxis ordered?: Yes Patient Problems: Active and Suspected Problems (Last Updated 01/01/18 @ 13:42 by Lisa Heck) PNA (pneumonia) (Acute) RLL pneumonia (Acute) Sepsis (Acute) Influenza A (Acute) - Physical Exam General: Alert, Oriented x3, Cooperative HEENT: Atraumatic, PERRLA, EOMI, Normocephalic Neck: Supple, No JVD, Negative Carotid Bruits Lungs: Normal air movement, Rales - faint rales RLL Cardiovascular: Regular rate, No murmurs Abdomen: Bowel Sounds Present, Soft, Non Tender, Obese Extremities: No edema, Capillary Refill Less than 3 Seconds Skin: No rashes, No breakdown Musculoskeletal: No Tenderness to Palpation of Joints or Extremities Neurological: Cranial nerves II-XII grossly intact Psych/Mental Status: Normal Affect, Appropriate Vital Signs Temp Pulse Resp BP Pulse Ox 100.8 F H 108 H 20 H 119/62 95 01/03/18 14:00 01/03/18 15:05 01/03/18 15:05 01/03/18 14:00 01/03/18 14:00 Oxygen Flow Rate (L/min) 2 Oxygen Delivery Method Nasal Cannula Weight: 133 kg Body Mass Index (BMI) 43.2 Laboratory Tests Past 24 Hrs Lactic Acid 5.6 H* Assessment/Plan Active and Suspected Problems (Last Updated 01/01/18 @ 13:42 by Lisa Heck) PNA (pneumonia) (Acute) RLL pneumonia (Acute) Sepsis (Acute) Influenza A (Acute) 1. Acute sepsis 2/2 acute influenza A bronchitis and RLL CAP - elevated Leukocytosis, fever, lactate, tachypnea, tachycardia. CXR with RLL infiltrate and vascular congestion. Started tamiflu in ER. Continue Rocephin and Azithromycin. Mucinex, aerosols, IS, PEP therapy. Fluids at 100 cc/hour. Check sputum culture, blood culture, urine antigens. 2. 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 Hold lasix. IV fluids. Avoid excessive fluids with hx of CHF. 3. Chronic diastolic CHF - hold lasix/HCTZ. Continue valsartan, toprol. 4. CAD - home meds. EKG with sinus tachy. 5. Hypothyroidism - TSH/Ft4 normal. 6. COPD - Solumedrol. duonebs. Not on home O2. Pt of Dr. Storey. 7. HTN - home meds. Pressure is high. 8.DMt2 - hold metformin. SSI. A1C 8.2. Would benefit from additional oral agent at discharge. DV ppx: heparin This patient was seen by William Laws PA-C under the supervision of Doctor Michael. 01/03/18 1559 <Electronically signed by William VASQUEZ> Date William VASQUEZ 01/04/18 1801<Electronically signed by Maryann Rodriguez DO> Cosigner Signature: Date (if applicable) Maryann Rodriguez DO CC: PEDRO Laws; Juli Rodriguez; Sebastien Stahl Signed DISCHARGE SUMMARY Observed: 01/04/2018 Status: F Source: [place] 6:20 PM [facility]POS[facility] Medical Records Department [address] [place] [address] Discharge Summary 01/04/18 1345 MR#: [id number] Acct: [id number] Name: DALE SARABIA Rep #: [id number] : 1955 62 From: William VASQUEZ PCP: Sebastien Stahl Status: DIS IN Y Location: [facility] [id number] ADDENDUM by Juli Rodriguez on 01/04/18 at 1820 Code Visit This patient was seen in conjunction with William VASQUEZ. I have independently interviewed and examined the patient and reviewed pertinent historical, laboratory and other data. Please refer to discharge summary note for details of this patient's presentation, findings and recommendations. I have reviewed William's note and concur fully with documented findings. In brief, patient is a 22YO male with a past medical history of COPD, chronic diastolic congestive heart failure, coronary artery disease, hypothyroidism, hypertension, diabetes mellitus type 2, obstructive sleep apnea and history of renal cell CA admitted with admitted to the hospital with septic shock secondary to influenza A. Lactic acidosis resolved with fluids. Chest x-ray shows questionable infiltrate in the right base but it was a poor inspiratory effort and this could represent atelectasis. He was started on Tamiflu in the emergency room but this was not continued because he had been symptomatic for at least 3 days prior to coming to the emergency room. He was started on Rocephin and azithromycin, Mucinex, aerosolized bronchodilators. Sputum culture appeared to be normal respiratory jeramie in the Legionella and streptococcal antigens in the urine were negative. Symptoms improved dramatically with just hydration. On the date of discharge the pulse ox on room air was 96% at rest and 95% with ambulation. He was not tachypneic and the vital signs were stable. Physical examination: At the time of discharge he had no wheezing, no rhonchi and no crackles per my exam. He had no conversational dyspnea and was not tachypneic. His breathing was not labored with ambulation. I agree with the remainder of the physical as documented below by William Laws. Assessment: 1. Septic shock secondary to influenza A 2. Dehydration 3. Influenza A 4. Microcytic anemia. Review of lab in the past shows he was not previously microcytic and he did not have anemia. He actually has polycythemia and gets phlebotomy once a month. I have discussed my assessment with William and orders have been written. Inpatient E AND M: [id number] Disch Hosp 01/04/18 1820 <Electronically signed by Maryann Rodriguez DO> Date Maryann Rodriguez DO cc: PEDRO Laws; Juli Rodriguez; Sebastien Stahl * Signed Discharge Date and Diagnosis - Problem List Patient Problems: Active and Suspected Problems (Last Updated 01/01/18 @ 13:42 by Lisa Heck) PNA (pneumonia) (Acute) RLL pneumonia (Acute) Sepsis (Acute) Influenza A (Acute) Date of Admission: 01/03/18 Date of Discharge: 01/04/18 - Primary Discharge Diagnosis Active and Suspected Problems (Last Updated 01/01/18 @ 13:42 by Lisa Heck) CAP - RLL PNA (pneumonia) (Acute) - suspect gram positive Sepsis (Acute) Influenza A (Acute) bronchitis Acute COPD exacerbation 2/2 above Chronic diastolic CHF CAD Hypothyroidism HTN DMt2 - Secondary Discharge Diagnosis Chronic Problems (Last Updated 01/01/18 @ 13:42 by Lisa Heck) CAD (coronary artery disease) (Chronic) 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) 05/22/11, PTCA/stent X [address] 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 In addition there is focal opacity suggested in the right lung base on lateral view which may represent a focal infiltrate cannot exclude pneumonia. Operations: None Procedures: None Summary of Care Provided: Physical exam on day of discharge: General: Resting comfortably NAD Psych: A/Ox3 normal affect HEENT: PEARRLA AT NC Neck: Supple NT CV: RRR no m/t/r/g/h Resp: fine RLL crackles. No wheezing. Good expansion Abd: [id number] Soft NT no guarding or rigidity Ext: DP2+= no edema Skin: W/D normal turgor Lymph/Heme: No active bleeding or adenopathy Neuro: CN2-12 intact Hospital course: The patient is a 62 year old M with a hx of DMt2, COPD, CAD, diastolic CHF, HTN who presented to the ER with a chief complaint of SOB, cough, fever, malaise for about 3 days. He was hypoxic requiring 2 lpm O2 to maintain good sats, had fever, leukocytosis, elevated lactate, tachypnea, tachycardia, and a CXR consistent with RLL pna, and a positive influenza A screen, and elevated creatinine. He was admitted to the hospital with acute severe sepsis 2/2 RLL CAP and Acute influenza A bronchitis. He was placed on rocephin and azithromycin, tamiflu, IV fluids, solumedrol, and duonebs. He responded very well to therapy. By the following morning his vitals and labs were all significantly improved, the patient was off o2, and feeling much better. He desired to be discharged home and with him feeling much better it was determined that we could transition his medications to PO and discharge him home. He did not wish to continue tamiflu. He was placed on 4 more days of cefdinir and azithromycin. He was given a steroid taper. He was taken off of HCTZ for his elevated creatinine and his pressure remained well controlled without it, he will continue with valsartan. He is discharged home in stable condition. Please follow up with your PCP in 1-2 weeks. This patient was seen by William Laws PA-C under the supervision of Doctor Michael. [] Discharge Diet: Low fat/ Low Cholesterol, 1800 Calorie Control Diet, 2000 mg Sodium Diet Discharge Activity: Return to Normal Activity Home Medications: Medications to take at Discharge Aspirin [Aspirin, Baby] 81 mg PO DAILY@0800 03/17/16 Tamsulosin HCl [Flomax] 0.4 mg PO DAILY 03/17/16 furosemide 40 mg tablet 40 mg PO QDAY 12/02/17 levothyroxine 200 mcg tablet 225 mcg PO .COMPLEX tab 12/04/17 budesonide-formoterol HFA 160 mcg-4.5 mcg/actuation aerosol inhaler 2 puff INHALATION Q12H 01/01/18 Metformin HCl 1,000 mg PO BREAKFAST 01/03/18 Metformin HCl 1,500 mg PO DINNER 01/03/18 Metoprolol Succinate [Toprol Xl] 25 mg PO QDAY 01/03/18 Acetaminophen [Tylenol Tablet] 650 mg PO Q6H PRN PRN tablet 01/04/18 Azithromycin [Zithromax] 250 mg PO DAILY #4 tab 01/04/18 Cefdinir [Omnicef [equiv]] 300 mg PO Q12H #8 cap 01/04/18 Prednisone 10 mg PO UD #30 tab 01/04/18 Valsartan [Diovan] 80 mg PO DAILY #30 tab 01/04/18 Following Prescrptions Were Given to Patient: Azithromycin [Zithromax] 250 mg PO DAILY #4 tab Cefdinir [Omnicef [equiv]] 300 mg PO Q12H #8 cap Prednisone 10 mg PO UD #30 tab Valsartan [Diovan] 80 mg PO DAILY #30 tab Primary Care Physician: Sebastien Stahl MD [Primary Care Provider] - Please follow up with your Primary Care Physician in: 1-2 weeks Disposition: Home Minutes spent on discharge:: 35 Patient Condition:: Stable Medical Necessity - Tobacco Use Smoking Status: Former smoker Meaningful Use Info Meaningful Use Diagnoses (Choose all that apply): None applicable 01/04/18 1352 <Electronically signed by William VASQUEZ> Date William VASQUEZ 01/04/18 1809<Electronically signed by Maryann Rodriguez DO> Cosigner Signature (if applicable): Date Maryann Rodriguez DO CC: PEDRO Laws; Juli Rodriguez; Sebastien Stahl Signed DISCHARGE INSTRUCTION Observed: 01/04/2018 Status: F Source: [place] 1:45 PM [facility] REPOSITORY [facility] Medical Records Department [address] [address] Instructions for Home/Discharge Instructions 01/04/18 1344 MR#: [id number] Acct: [id number] Name: DALE SARABIA Rep #: [id number] : 1955 62 From: William VASQUEZ PCP: Sebastien Stahl Status: ADM IN - Discharge Diagnoses Current Active Problems: Current Active and Chronic Problems (Last Updated 01/01/18 @ 13:42 by Lisa Heck) PNA (pneumonia) (Acute) RLL pneumonia (Acute) Sepsis (Acute) Influenza A (Acute) CAD (coronary artery disease) (Chronic) You will use the following diet at home:: Calorie/Carbohydrate Controlled (specify 1200, 1400, etc) - 1800, Cardiac Your food should be the consistency of: Regular Your liquids should be the consistency of: Regular/Thin Discharge Activity: Return to Normal Activity Allergies/Adverse Reactions: Allergies theophylline Allergy (Verified 01/03/18 08:14) Unknown Medications to take at Discharge Aspirin [Aspirin, Baby] 81 mg PO DAILY@0800 03/17/16 Tamsulosin HCl [Flomax] 0.4 mg PO DAILY 03/17/16 furosemide 40 mg tablet 40 mg PO QDAY 12/02/17 levothyroxine 200 mcg tablet 225 mcg PO .COMPLEX tab 12/04/17 budesonide-formoterol HFA 160 mcg-4.5 mcg/actuation aerosol inhaler 2 puff INHALATION Q12H 01/01/18 Metformin HCl 1,000 mg PO BREAKFAST 01/03/18 Metformin HCl 1,500 mg PO DINNER 01/03/18 Metoprolol Succinate [Toprol Xl] 25 mg PO QDAY 01/03/18 Acetaminophen [Tylenol Tablet] 650 mg PO Q6H PRN PRN tablet 01/04/18 Azithromycin [Zithromax] 250 mg PO DAILY #4 tab 01/04/18 Cefdinir [Omnicef [equiv]] 300 mg PO Q12H #8 cap 01/04/18 Prednisone 10 mg PO UD #30 tab 01/04/18 Valsartan [Diovan] 80 mg PO DAILY #30 tab 01/04/18 The following prescriptions were given: Azithromycin [Zithromax] 250 mg PO DAILY #4 tab Cefdinir [Omnicef [equiv]] 300 mg PO Q12H #8 cap Prednisone 10 mg PO UD #30 tab Valsartan [Diovan] 80 mg PO DAILY #30 tab Primary Care Physician: Sebastien Stahl MD [Primary Care Provider] - Please follow up with your Primary Care Physician in: 1-2 weeks Proposed Discharge Date: 01/04/18 01/04/18 1345 <Electronically signed by William VASQUEZ> Date William VASQUEZ CC: Sebastien Stahl BEDSIDE GLUCOSE Collected: 01/04/2018 Status: F Source: [place] 11:37 AM [facility] REPOSITORY TYPE CODE TESTS RESULT OUT OF REFERENCE UNITS RANGE LAB L501.080 70-110 mg/dL High BEDSIDE GLU 284 Result Comment: MANAGEMENT OF PATIENT CARE PER NURSING PROTOCOL Performed By: #### L501.080 #### [facility] Point of Care [address] [place] [address] BEDSIDE GLUCOSE Collected: 01/04/2018 Status: F Source: [place] 6:46 AM [facility] REPOSITORY TYPE CODE TESTS RESULT OUT OF REFERENCE UNITS RANGE LAB L501.080 70-110 mg/dL High BEDSIDE GLU 188 Result Comment: MANAGEMENT OF PATIENT CARE PER NURSING PROTOCOL Performed By: #### L501.080 #### [facility] Point of Care [address] [place] [address] BASIC METABOLIC Collected: 01/04/2018 Status: F Source: [place] PROFILE (BMP) 5:44 AM [facility] REPOSITORY TYPE CODE TESTS RESULT OUT OF RANGE REFERENCE UNITS LAB L501.0100 74-106 mg/dL High GLU 212 Result Comment: Glucose result greater than or equal to 200 mg/dL suggests DIABETES MELLITUS per A.D.A. criteria. Please note revised GLUCOSE reference range effective 2017. LAB L501.1000 7-18 mg/dL Normal BUN 18 LAB L501.1100 0.70-1.30 mg/dL Normal CREAT,SERUM 1.08 Result Comment: The validity of the calculated GFR AND GFRAA in patients over 70 years has not been determined. Clinical correlation is essential. LAB L501.1110 >60 mL/min Normal EST GFR 73 Result Comment: Non- GFR Calc LAB L501.1115 >60 mL/min Normal EST GFR - AA 88 Result Comment: GFR Calc LAB L501.1255 ml/min Normal Estimated CRCL 69.10 LAB L501.1300 10-20 RATIO Normal BUN/CRE 16.7 LAB L501.2200 8.5-10 mg/dL Low .1 CA 8.0 LAB L501.5300 136-14 mmol/L Normal 5 NA 139 LAB L501.5600 3.5-5. mmol/L Normal 1 K 4.5 LAB L501.5900 98-107 mmol/L Normal CL 106 LAB L501.6100 21.0-3 mmol/L Normal 2.0 CO2 23.0 LAB L501.6200 5-15 Normal GAP 10 Performed By: #### L500.2500 #### [facility] [address] [place], [address] CBC W/DIFF, AUTOMATED Collected: 01/04/2018 Status: F Source: [place] 5:44 AM [facility] REPOSITORY TYPE CODE TESTS RESULT OUT OF RANGE REFERENCE UNITS LAB L100.1000 4.4-11.0 K/mm3 High WBC 16.3 LAB L100.1200 4.6-6.2 M/mm3 Normal RBC 5.44 LAB L100.1300 13.0-16.5 g/dl Low HGB 10.3 LAB L100.1400 40-54 % Low HCT 35.9 LAB L100.1500 80-94 fL Low MCV 66.0 LAB L100.1600 27.0-32.0 pg Low MCH 18.9 LAB L100.1700 32-36 g/gl Low MCHC 28.7 LAB L100.1810 11.6-14.6 % High RDW CV 20.3 LAB L100.1820 35.1-43.9 fl High RDW SD 46.7 LAB L100.1900 150-450 K/mm3 Normal PLT 243 LAB L100.2000 6.2-12.0 fl Normal MPV 10.3 LAB L100.2100 47-70 % High NEUT% 90.9 LAB L100.2200 19-41 % Low LY% 3.3 LAB L100.2300 0-10 % Normal MONO% 5.4 LAB L100.2400 0-5 % Normal EO% 0.0 LAB L100.2500 0-1 % Normal BASO% 0.1 LAB L100.2550 0.0-0.9 % Normal IM GRAN % 0.300 Result Comment: IG% - Immature Granulocytes (promyelocytes, myelocytes and metamyelocytes) > 1% indicates that a LEFT SHIFT is Present. LAB L100.2620 2.0-7.7 X10 3/uL Absolute Neut High 14.8 LAB L100.2720 0.83-4.51 X10 3/ul Low Absolute Lymph 0.54 LAB L100.4500 SMEAR COMMENT Normal SCAN LAB L100.7300 ANISO Normal 1+ LAB L100.7500 POLYCHROMASIA Normal 1+ LAB L100.7600 HYPOCHROMASIA Normal 1+ LAB L100.7700 MICROCYTES Normal 1+ Performed By: #### L100.0100 #### [facility] [address] [place], [address] BEDSIDE GLUCOSE Collected: 01/03/2018 Status: F Source: [place] 9:38 PM [facility] REPOSITORY TYPE CODE TESTS RESULT OUT OF REFERENCE UNITS RANGE LAB L501.080 70-110 mg/dL High BEDSIDE GLU 302 Result Comment: MANAGEMENT OF PATIENT CARE PER NURSING PROTOCOL Performed By: #### L501.080 #### [facility] Point of Care [address] [place], [place] [address] Observed: 01/03/2018 Status: F Source: [place] CULTURE, SPUTUM 6:57 PM [facility] REPOSITORY Order Date: 01/03/18 Has pt arrived? Y Gram Stain Acceptable Specimen? Yes (<25 Epithelial cells per/lpf) Gram Stain Rare Epithelial cells Rare White Blood Cells Rare Gram positive cocci Rare Gram positive rods Resp. Culture Mixed normal respiratory jeramie. No Haemophilus, Streptococcus pneumoniae, beta-hemolytic Streptococcus or Staphylococcus aureus isolated. Performed By: #### M100.0800 #### [facility] [address] [place], [address] LACTIC ACID Collected: 01/03/2018 Status: F Source: [place] 5:30 PM [facility] REPOSITORY TYPE CODE TESTS RESULT OUT OF REFERENCE UNITS RANGE LAB L503.6005 0.4-2.0 mmol/L High alert LACTIC ACID 5.9 Result Comment: Critical Result(s) Called Brenda RODRIGUEZ at: 18:11:16 01/03/2018 by: GERMAIN BOYCE Performed By: #### L503.6005 #### [facility] [address] [place], [place], [address] URINALYSIS, ROUTINE Collected: 01/03/2018 Status: F Source: [place] (DIPSTICK) 4:40 PM [facility] REPOSITORY Order Comment: How was Urine Obtained? CLEAN CATCH TYPE CODE TESTS RESULT OUT OF RANGE REFERENCE UNITS LAB L400.3000 Yellow COLOR Normal Straw LAB L400.3050 Clear Normal CLARITY Clear LAB L400.3200 Normal mg/dl High GLUCOSE, UR 1000 LAB L400.3300 Negative mg/dL Normal BILIRUBIN URINE Negative LAB L400.3400 Negative mg/dl High 15 KETONE UR LAB L400.3465 1.002-1.030 Normal SP.GR. DIPSTX 1.010 LAB L400.3550 5.0 - 8.0 pH UR Normal 6.0 LAB L400.3600 Negative mg/dl PROT Normal DIPSTX Negative LAB L400.3700 Normal mg/dl Normal UROBILI Normal LAB L400.3750 Negative Normal NITRITE UR Negative LAB L400.3780 Negative /ul Normal OCCULT BLOOD-UR Negative LAB L400.3800 Negative /ul LEUK Normal ESTERASE Negative Performed By: #### L400.2011 #### [facility] [address] [place], [place], [address] Observed: 01/03/2018 Status: F Source: [place] LEGIONELLA ANTIGEN 4:40 PM [facility] URINE REPOSITORY Specimen Source: URINE, CLEAN CATCH Legionella, UR Legionella Antigen result interpretation: Negative Presumptive negative for Legionella pneumophila serogroup 1 antigen in urine, suggesting no recent or current infection. POSITIVE Presumptive positive for Legionella pneumophila serogroup 1 antigen in urine, suggesting current or past infection. Legionella Ag, Urine Negative (See interpretation below) Performed By: #### M300.4500 #### [facility] [address] [place], [address] STREP Observed: 01/03/2018 Status: F Source: [place] PNEUMONIAE ANTIG(UR,CSF) 4:40 PM [facility] REPOSITORY S pneumo Ag URINE INTERPRETATION Positive Urine Positive for pneumococcal pneumonia. Negative Urine Presumptive negative for pneumococcal pneumonia, suggesting no current or recent pneumococcal infection. Infection due to S pneumoniae cannot be ruled out since the antigen present in the sample may be below the detection limit of the test. CSF INTERPRETATION Positive CSF Positive for pneumococcal meningitis. Negative CSF Presumptive negative for pneumococcal meningitis. Infection due to S pneumoniae cannot be ruled out since the antigen present in the sample may be below the detection limit of the test. Strep pneumo Test Negative URINE (See interpretation below) Performed By: #### M300.4600 #### [facility] [address] [place], [place], [address] EMERGENCY DEPARTMENT Observed: 01/03/2018 Status: F Source: [place] SUMMARY 4:36 PM [facility] REPOSITORY [facility] Medical Records Department [address] [facility] [place] [address] Emergency Department Summary 01/03/18 0834 MR#: [id number] Acct: [id number] Name: DALE SARABIA Rep #: [id number] : 1955 62 From: Maury Daniels MD PCP: Sebastien Stahl Status: ADM IN - ER Visit Summary Date of Service: 01/03/18 Chief Complaint: Cough, fever, chills, body aches History of Present Illness: The patient is a 62 M with a history of COPD presenting with 2 days of fever, chills, body aches, and myalgias. He has been wheezing and his cough is becoming productive of clear-yellow sputum. Physical Examination: he is in mild distress. He is tachycardic and mucous membranes are dry. he has diffuse wheezing. Normal neuro exam and no meningeal findings. Test Results: Chest x-ray revealed a right lower lobe infiltrate. Flu swab was positive. He has a significant leukocytosis. Lactic acid elevated. Emergency Department Course and Treatment: He appears septic and has a pneumonia with a positive influenza. He was given Tamiflu and IV antibiotics as well as fluid resuscitation. Repeat skin exam is unchanged. Repeat lactate is still pending at time of transfer from emergency department. His blood pressure remained normal and he is requiring 2-3 L of oxygen. He certainly meets criteria for full admission but he does not appear to require ICU admission at this time. He did improve with IV fluids and breathing treatments here. I discussed the case with the hospitalist and he was admitted to PCU. Treatment Plan: IV antibiotics Disposition: Admit Impression: Initial encounter for sepsis secondary to community- acquired pneumonia, initial encounter influenza Care time 40 minutes This note was generated with [employer] dictation software. It may contain incorrect words, spelling, and punctuation that were not noted in review of the chart prior to signing ED Disposition - Plan for ED Patient: Disposition: Acute Care Hospital [facility] Chief Complaint: Shortness of Breath What to do if you have Problems For any increased pain, shortness of breath, bleeding, nausea or vomiting, chest pain, or any unexpected problems, contact your Primary Care Provider. Call [facility] ([phone]) or report to the closest Emergency Room. Call 911 if necessary. 01/03/18 1636 <Electronically signed by Maury Daniels MD> Date Maury Daniels MD Cosigner Signature (If Indicated): Date CC: Sebastein Stahl BEDSIDE GLUCOSE Collected: 01/03/2018 Status: F Source: [place] 3:56 PM [facility] REPOSITORY TYPE CODE TESTS RESULT OUT OF REFERENCE UNITS RANGE LAB L501.080 70-110 mg/dL High BEDSIDE GLU 328 Result Comment: MANAGEMENT OF PATIENT CARE PER NURSING PROTOCOL Performed By: #### L501.080 #### [facility], [place] [address] BEDSIDE GLUCOSE Collected: 01/03/2018 Status: F Source: [place] 3:54 PM [facility] REPOSITORY TYPE CODE TESTS RESULT OUT OF REFERENCE UNITS RANGE LAB L501.080 70-110 mg/dL High BEDSIDE GLU 315 Result Comment: MANAGEMENT OF PATIENT CARE PER NURSING PROTOCOL Performed By: #### L501.080 #### [facility] Point of Care [address] [place] [address] LACTIC ACID Collected: 01/03/2018 Status: F Source: [place] 12:43 PM [facility] REPOSITORY Order Comment: Comments: 3 hours after initial level if initial lactic >2 Yes/No query for Sepsis Lactate Rule Y TYPE CODE TESTS RESULT OUT OF REFERENCE UNITS RANGE LAB L503.6005 0.4-2.0 mmol/L High alert LACTIC ACID 5.6 Result Comment: Critical Result(s) Called at: 13:43:12 01/03/2018 by: Jaiden Luna RN PCU. Performed By: #### L503.6005 #### [facility] [address] [place], [address] Observed: 01/03/2018 Status: F Source: [place] CULTURE, BLOOD (WB) 9:05 AM [facility] REPOSITORY BC No growth in 5 days. Performed By: #### M200.1000 #### [facility] [address] [place], [address] LACTIC ACID Collected: 01/03/2018 Status: F Source: [place] 8:55 AM [facility] REPOSITORY Order Comment: Yes/No query for Sepsis Lactate Rule Y TYPE CODE TESTS RESULT OUT OF REFERENCE UNITS RANGE LAB L503.6005 0.4-2.0 mmol/L High LACTIC ACID 3.0 Result Comment: Critical Result(s) Called at: 09:32:00 01/03/2018 by: Jaiden Bills RN. (ER) Performed By: #### L503.6005 #### [facility] [address] [place], [address] Observed: 01/03/2018 Status: F Source: [place] INFLUENZA A+B (RAPID 8:55 AM [facility]) REPOSITORY Order Date: 01/03/18 Has pt arrived? Y FLU A/B Rapid Negative test results should be confirmed by culture. Order Rapid Viral Culture for Influenzae A+B ([id number]) if clinically indicated. Copy of report sent to Infection Control Printer [id number] 01/03/18 1024 THIERRY. RESULTS CALLED TO KURT BILLS 01/03/18 1024 Nhi Connelly. REPORT READ BACK BY SAME. Influenza Ag, Direct POSITIVE for the presence of INFLUENZA A Antigen only ORGANISM 1: INFLUENZAE A Performed By: #### M101.0101 #### [facility] [place], [place], [address] Observed: 01/03/2018 Status: F Source: [place] RESPIRATORY PANEL 8:55 AM [facility] MOLECULAR REPOSITORY Order Date: 01/03/18 CALLED TO BRAULIO RODRIGUEZ 01/03/18 1620 BY LEROY.VRB RP PANEL Normal Reference Range = Not Detected Copy of report sent to Infection Control Printer [id number] 01/04/18 0733 PRINCE. ADENOVIRUS Not Detected HUMAN METAPHNEUMO Not Detected INFLUENZA A Positive for INFLUENZA A by NAAT technology INFLUENZA A (SUBTYPE H1) Positive for INFLUENZA A SUBTYPE H1 by NAAT technology INFLUENZA A (SUBTYPE H3) Not Detected INFLUENZA B Not Detected PARAINFLUENZA 1 Not Detected PARAINFLUENZA 2 Not Detected PARAINFLUENZA 3 Not Detected PARAINFLUENZA 4 Not Detected RHINOVIRUS Not Detected RSV A Not Detected RSV B Not Detected NAAT METHOD Testing was performed using nucleic acid amplification ORGANISM 1: INFLUENZA A (SUBTYPE H1) Performed By: #### M100.638 #### [facility] [place], [place], [address] Observed: 01/03/2018 Status: F Source: [place] CULTURE, BLOOD (WB) 8:53 AM [facility] REPOSITORY BC No growth in 5 days. Performed By: #### M200.1000 #### [facility] [place], [place], [address] CHEST PA AND LATERAL Observed: 01/03/2018 Status: F Source: [place] 8:33 AM [facility] REPOSITORY [facility] Imaging Services [address] [place] [address] Chest PA and Lateral MR#: [id number] Acct: [id number] Name: DALE SARABIA Rep #: [id number] : 1955 M 62 From: Nhi Resendiz MD PCP: Sebastien Stahl Status: REG ER Study: Chest PA and Lateral Date of Exam: 01/03/18 Exam# [id number] Ordering Dr: Maury Daniels MD STUDY: X-RAY CHEST REASON FOR EXAM: Male, 62 years old. Cough dyspnea COPD stents history of kidney cancer TECHNIQUE: PA and lateral views of the chest. COMPARISON: March 17, 2016 chest x-ray FINDINGS: The lungs are underexpanded similar to the prior study. There is visualized right lower lobe opacity. There is peribronchial thickening and vascular prominence. There is no demonstrated pleural abnormality. There is borderline cardiomegaly. Normal mediastinum and selina. Normal visualized pulmonary arteries. Normal visualized aortic arch and descending thoracic aorta. There are diffuse degenerative changes of the visualized thoracic spine. Normal visualized ribs, clavicles, and shoulders. There is no demonstrated abnormality of the visualized soft tissue structures of the upper abdomen. RAD/Chest PA and Lateral IMPRESSION: Underexpansion of the lungs finding suspicious for central vascular congestion. In addition there is focal opacity suggested in the right lung base on lateral view which may represent a focal infiltrate cannot exclude pneumonia. Electronically Signed: Nhi Resendiz MD at 10:02 EDT Tel , Service support , CC: Kenny Daniels MD; Sebastien Stahl Clay Puddler: Signed CBC W/DIFF, AUTOMATED Collected: 01/03/2018 Status: F Source: [place] 8:30 AM [facility] REPOSITORY TYPE CODE TESTS RESULT OUT OF RANGE REFERENCE UNITS LAB L100.1000 4.4-11.0 K/mm3 Normal WBC 7.8 LAB L100.1200 4.6-6.2 M/mm3 Normal RBC 5.89 LAB L100.1300 13.0-16.5 g/dl Low HGB 11.1 LAB L100.1400 40-54 % Low HCT 38.9 LAB L100.1500 80-94 fL Low MCV 66.0 LAB L100.1600 27.0-32.0 pg Low MCH 18.8 LAB L100.1700 32-36 g/gl Low MCHC 28.5 LAB L100.1810 11.6-14.6 % High RDW CV 20.2 LAB L100.1820 35.1-43.9 fl High RDW SD 46.2 LAB L100.1900 150-450 K/mm3 Normal PLT 252 LAB L100.2000 6.2-12.0 fl Normal MPV 10.1 LAB L100.2100 47-70 % High NEUT% 72.0 LAB L100.2200 19-41 % Low LY% 13.2 LAB L100.2300 0-10 % High MONO% 11.3 LAB L100.2400 0-5 % Normal EO% 1.8 LAB L100.2500 0-1 % High BASO% 1.4 LAB L100.2550 0.0-0.9 % Normal IM GRAN % 0.300 Result Comment: IG% - Immature Granulocytes (promyelocytes, myelocytes and metamyelocytes) > 1% indicates that a LEFT SHIFT is Present. LAB L100.2620 2.0-7.7 X10 3/uL Absolute Neut Normal 5.6 LAB L100.2720 0.83-4.51 X10 3/ul Absolute Lymph Normal 1.03 LAB L100.7300 ANISO Normal 2+ LAB L100.7500 POLYCHROMASIA Normal 1+ Performed By: #### L100.0100 #### [facility] [address], [address] BASIC METABOLIC Collected: 01/03/2018 Status: F Source: [place] PROFILE ([facility]) 8:30 AM [facility] REPOSITORY TYPE CODE TESTS RESULT OUT OF RANGE REFERENCE UNITS LAB L501.0100 74-106 mg/dL High GLU 178 Result Comment: Fasting Glucose result greater than or equal to 126 mg/dL suggests DIABETES MELLITUS per A.D.A. criteria. Please note revised GLUCOSE reference range effective 2017. LAB L501.1000 7-18 mg/dL High BUN 20 LAB L501.1100 0.70-1.30 mg/dL High CREAT,SERUM 1.44 Result Comment: The validity of the calculated GFR AND GFRAA in patients over 70 years has not been determined. Clinical correlation is essential. LAB L501.1110 >60 mL/min Low EST GFR 52 Result Comment: Non- GFR Calc LAB L501.1115 >60 mL/min Normal EST GFR - AA 63 Result Comment: GFR Calc LAB L501.1255 ml/min Normal Estimated CRCL 50.14 LAB L501.1300 10-20 RATIO Normal BUN/CRE 13.9 LAB L501.2200 8.5-10 mg/dL Low .1 CA 8.4 LAB L501.5300 136-14 mmol/L Normal 5 NA 138 LAB L501.5600 3.5-5. mmol/L Normal 1 K 4.2 LAB L501.5900 98-107 mmol/L Normal CL 100 LAB L501.6100 21.0-3 mmol/L Normal 2.0 CO2 28.0 LAB L501.6200 5-15 Normal GAP 10 Performed By: #### L500.2500 #### [facility] [address] [place], [place], [address] HEMOGLOBIN A1C Collected: 01/03/2018 Status: F Source: [place] 8:30 AM [facility] REPOSITORY TYPE CODE TESTS RESULT OUT OF RANGE REFERENCE UNITS LAB L501.9985 4.2-6.3 % High HGB A1C 8.2 Performed By: #### L501.9985 #### [facility] [address] [place], [place], [address] THYROID STIM HORMONE Collected: 01/03/2018 Status: F Source: [place] (TSH) 8:30 AM [facility] REPOSITORY TYPE CODE TESTS RESULT OUT OF RANGE REFERENCE UNITS LAB L501.9520 0.358-3.74 uIU/mL Normal TSH 1.08 Performed By: #### L501.9520, L506.0400 #### [facility] [address] [place], [place], [address] T4 FREE DIRECT Collected: 01/03/2018 Status: F Source: [place] 8:30 AM [facility] REPOSITORY TYPE CODE TESTS RESULT OUT OF RANGE REFERENCE UNITS LAB L506.0400 0.76-1.46 ng/dL Normal T4 FREE 1.02 DIRECT Performed By: #### L501.9520, L506.0400 #### [facility] [address] [place], [place], [address] CBC-COMPLETE BLOOD CNT Collected: 12/17/2017 Status: F Source: [place] NO DIFF 10:29 AM [facility] REPOSITORY Order Comment: CBC AND FERRITIN ARE FOR DR JORDAN PSA FOR DR AGUILAR TYPE CODE TESTS RESULT OUT OF RANGE REFERENCE UNITS LAB L100.1000 4.4-11.0 K/mm3 Normal WBC 7.6 LAB L100.1200 4.6-6.2 M/mm3 Normal RBC 6.10 LAB L100.1300 13.0-16.5 g/dl Low HGB 11.7 LAB L100.1400 40-54 % Normal HCT 40.8 LAB L100.1500 80-94 fL Low MCV 66.9 LAB L100.1600 27.0-32.0 pg Low MCH 19.2 LAB L100.1700 32-36 g/gl Low MCHC 28.7 LAB L100.1810 11.6-14.6 % High RDW CV 19.8 LAB L100.1820 35.1-43.9 fl High RDW SD 46.2 LAB L100.1900 150-450 K/mm3 Normal PLT 273 LAB L100.2000 6.2-12.0 fl Normal MPV 10.7 Performed By: #### L100.0500, L100.4500 #### [facility] [address] [place], [place], [address] DIFFERENTIAL COMMENT Collected: 12/17/2017 Status: F Source: [place] 10:29 AM [facility] REPOSITORY Order Comment: CBC AND FERRITIN ARE FOR DR JORDAN PSA FOR DR AGUILAR TYPE CODE TESTS RESULT OUT OF RANGE REFERENCE UNITS LAB L100.4500 Normal SMEAR COMMENT COMMENT Result Comment: SLIDE SCANNED - RARE TARGET CELLS, SLIGHT HYPOCHROMIA. Performed By: #### L100.0500, L100.4500 #### [facility] [address] [place], [place], [address] PSA,TOTAL - ANNUAL Collected: 12/17/2017 Status: F Source: [place] SCREEN 10:29 AM [facility] REPOSITORY Order Comment: CBC AND FERRITIN ARE FOR DR JORDAN PSA FOR DR AGUILAR TYPE CODE TESTS RESULT OUT OF RANGE REFERENCE UNITS LAB L501.9910 0.00-4.00 ng/mL Normal PSA,TOT 1.30 SCREEN Result Comment: This test was performed using the TPSA assay method for the [employer] chemistry system. Values obtained with different assay methods cannot be used interchangably. When changing PSA assays in the course of monitoring a patient, additional sequential testing should be carried out to confirm baseline values. Performed By: #### L501.9910, L503.6550 #### [facility] [address] [place], [place], [address] FERRITIN Collected: 12/17/2017 Status: F Source: [place] 10:29 AM [facility] REPOSITORY Order Comment: CBC AND FERRITIN ARE FOR DR JORDAN PSA FOR DR AGUILAR TYPE CODE TESTS RESULT OUT OF REFERENCE UNITS RANGE LAB L503.6550 26-388 ng/mL Low FERRITIN 6 Performed By: #### L501.9910, L503.6550 #### [facility] [address] [place], [place], [address] CARDIOLOGY VISIT Observed: 12/04/2017 Status: F Source: LEONID REPORT 10:44 AM [facility] REPOSITORY [facility] [address] [place] [address] OFFICE VISIT Date of Service: 12/04/17 MR#: [id number] Acct: [id number] Name: DALE SARABIA Rep #: [id number] : 1955 Provider: Rafael Solorio MD Age/Sex: 62/M Location: [facility] Status: Signed HPI HPI Chief Complaint: Follow-up visit. Details: DALE SARABIA, is a 62 M who presents to the office today for a follow-up visit. He is a gentleman with a history of coronary disease status post coronary angioplasty and stenting on the left anterior descending artery and diagonal vessel. He returns for follow-up visit. As you know he also has a history of polycythemia. He has been having his blood checked at the [facility] but he is going to switch over to have it done here. He tells me that he is back to work part-time and has been doing quite well he is on a no added sugar and no added salt diet and he is feeling much better. She denies any chest pain or shortness with paroxysmal nocturnal dyspnea pedal edema. His physical exam today demonstrates clear lung pierce regular rate and rhythm and no pedal edema his blood pressure is under excellent control. Intake Vital Signs12/04/17 Height 5 ft 9.5 in 12/04/17 Weight: 290 lb 12/04/17 Body Mass Index (BMI) 42.2 12/04/17 Blood Pressure 110/50 Intake Visit Reasons: 9 M FU Is patient in pain?: No Allergies theophylline Allergy (Verified 12/04/17 10:10) Unknown Medications Aspirin [Aspirin, Baby] 81 mg PO DAILY@0800 03/17/16 [History Confirmed 12/04/17] Erythromycin Ophthalmic [(None)] 1 applic EACH EYE BID PRN 03/17/16 [History Confirmed 12/04/17] Metformin HCl [Glucophage] 1,000 mg PO BREAKFAST 03/17/16 [History Confirmed 12/04/17] Metformin HCl [Glucophage] 1,500 mg PO DINNER 03/17/16 [History Confirmed 12/04/17] Tamsulosin HCl [Flomax] 0.4 mg PO DAILY 03/17/16 [History Confirmed 12/04/17] Testosterone [Androgel] 30 mg TD BID 03/17/16 [History Confirmed 12/04/17] Valsartan/Hydrochlorothiazide [Valsartan-Hctz 80-12.5 mg Tab] 1 ea PO DAILY 03/17/16 [History Confirmed 12/04/17] Budesonide/Formoterol 80-4.5 [Symbicort 80-4.5 Mcg Inhaler] 2 puff INHALATION BID #1 inhaler 03/19/16 [Rx Confirmed 12/04/17] metoprolol succinate ER 25 mg tablet,extended release 24 hr 25 mg PO QDAY #90 tab 10/22/17 [Rx Confirmed 12/04/17] furosemide 40 mg tablet 40 mg PO QDAY 12/02/17 [History Confirmed 12/04/17] levothyroxine 200 mcg tablet 225 mcg PO .COMPLEX tab 12/04/17 [History Confirmed 12/04/17] Ejection fraction %: 65 to 70 [facility] Medical History 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) Palpitations (Chronic) Other group home (current) 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 (Chronic) History of renal cell cancer (Chronic) Benign prostatic hypertrophy (Chronic) Type II diabetes mellitus (Chronic) Hyperlipidemia (Chronic) Obesity (Chronic) COPD (chronic obstructive pulmonary disease) (Chronic) Obstructive sleep apnea (Chronic) Hypothyroidism (Chronic) Hypertension (Chronic) Dyspnea (Acute) Precordial chest pain (Acute) Shortness of breath (Acute) Surgical History Postsurgical percutaneous transluminal coronary angioplasty (PTCA) status (Chronic) Status post right partial nephrectomy (Chronic) Family History Mother CAD (coronary artery disease) Social History Smoking Status: Former smoker pack-years: 15 ROS Const Const: Negative for fatigue, weakness, body ache, fever(s), headache(s), chills, frequent falls, night sweats, daytime sleepiness, difficulty sleeping, excessive sweating, weight gain, weight loss, increased appetite, poor appetite, anorexia or other Eyes Eyes: Negative for blind spots, loss of peripheral vision, transient loss of vision, blurry vision, change in vision, double vision, floaters, tunnel vision or other ENT ENT: Negative for headache(s), dizziness, hearing loss, tinnitus, Nosebleed/epistaxis, balance problems, post nasal drip, lip swelling, tongue swelling, bleeding gums, hoarseness, neck pain, dry mouth or other Cardio Chest Pain: No Resp Respiratory: Positive for SOB with activity (Occasional, has some COPD); negative for SOB at rest, SOB orthopnea\SOB lying down, Coughing up blood/hemoptysis, chest congestion, pain on inspiration, snoring, stridor, wheezing, crackles, paroxysmal nocturnal dyspnea or other GI GI: Negative nausea, vomiting, heartburn, constipation, belching, bloating, cramping, vomiting blood/hematemesis, bright, red blood in stools, black,tarry stools, loose stools, Difficulty Swallowing or other : Negative for hematuria, frequent nighttime urination/ nocturia, erectile dysfunction or abnormal vaginal bleeding Musc Musc: Negative for balance problems, muscle aches/ myalgia, muscle weakness or joint pain Skin Skin: Negative redness, non-healing lesions, rash, unusual bruising, skin ulcer, wounds, jaundice or other Neuro Neuro: Negative for weakness, headache(s), frequent falls, blurry vision, double vision, dizziness, lightheadedness, near syncope, syncope, orthostatic symptoms, confusion, memory loss, restless legs, vertigo, seizures, lack of coordination or other Gilberto Hematologic/Lymphatic: Negative for easy bleeding, easy bruising, enlarged lymph nodes or other Endo Endo: Negative for fatigue, excessive sweating, cold intolerance, heat intolerance, flushing, increased thirst/drinking, increased hunger, hair loss, hair growth or other Psych Psych: Negative for anxiety, depression, thoughts of harming anyone, thoughts of harming yourself, visual hallucinations, panic attacks or audible hallucinations Allergy Allergy/Immunology: Negative for lip swelling, Negative for tongue swelling, Negative for rash, Negative for throat swelling, Negative for hives Cardiology Exam Const Appearance: cooperative, healthy appearing, well developed, well groomed and no acute distress Nutritional Appearance: well nourished and average body habitus Orientation: alert, awake and oriented x3 Head Head: normal to inspection, normocephalic and atraumatic Ears: hearing grossly normal bilaterally and external ears normal Nose: external nose normal, nasal mucous membranes and turbinates normal, nares normal, septum normal, no nasal discharge Face and Sinus: face symmetric Mouth: oral mucosae normal, tongue normal, oropharynx normal and moist mucous membranes Teeth and gingiva: dentition normal Throat: posterior oropharynx normal, tonsils normal and uvula midline Eyes General: appearance normal, both eyes and all related structures Eyelids: eyelids normal Conjunctivae: conjunctivae normal Pupils: PERRL, normal by confrontation and accommodation normal EOM: EOM intact bilaterally Neck Neck: normal visual inspection, trachea midline and no JVD JVD: +5 Carotids: normal carotid upstroke and bounding pulses Chest Chest inspection: normal inspection of the chest, symmetric chest movement and normal respiratory effort Auscultation: Bilateral: Clear to Auscultation Cardio Palpation: normal PMI Rate: regular rate Rhythm: regular rhythm Heart sounds: S1 normal, S2 normal and normal, physiologic split S2; negative rub, gallop or murmur GI GI: normal to inspection, soft, no hepatosplenomegaly and bowel sounds present Neuro General: alert, awake, oriented x3, no focal sensory deficit, gait normal and moves all extremities Skin Skin: no rashes or lesions noted Extremities Pulses: Normal: Right Femoral Pulse, Left Femoral Pulse, Right Dorsalis Pedis Pulse, Left Dorsalis Pedis Pulse, Right Posterior Tibial Pulse, Left Posterior Tibial Pulse, Right Radial Pulse, Left Radial Pulse Lower Extremity Edema: None: Bilateral Musculoskel Musculoskeletal: No joint tenderness Psych Psychological: normal affect Assessment AND Plan 1. Postsurgical percutaneous transluminal coronary angioplasty (PTCA) status Z98.61 05/22/11, PTCA/stent X 2 to LAD Plan He appears to be doing well from the standpoint he has not had any angina and the plan is for him to continue current medical therapy without making any changes. 2. Hypertension I10 Plan His blood pressure appears to be under excellent control. He is on the metoprolol as well as the valsartan and diuretic. I would not recommend that we make any changes. 3. Obstructive sleep apnea G47.33 Plan He continues to follow-up with the pulmonary service for the above. You do also do remember that he does have a history of polycythemia and will continue to monitor his hemoglobin under the care of a monotypist. 4. Hyperlipidemia E78.5 Plan He has discontinued his statin due to side effects. He has been watching his diet a lot more closely and a lipid profile be obtained at the appropriate time. I suspect that this would be significantly improved from before. Thank you for allowing me to participate in his care please not hesitate to contact me if any issues arise. 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) Coding Level of Care Code Off vis,est,level 3 Diagnoses Postsurgical percutaneous transluminal coronary angioplasty (PTCA) status Z98.61 Hypertension I10 Obstructive sleep apnea G47.33 Hyperlipidemia E78.5 Coding Level of Care Code Off vis,est,level 3 Diagnoses Postsurgical percutaneous transluminal coronary angioplasty (PTCA) status Z98.61 Hypertension I10 Obstructive sleep apnea G47.33 Hyperlipidemia E78.5 12/04/17 1044 <Electronically signed by Rafale Solorio MD> Date Rafael Solorio MD Cosigner Signature: Date (if applicable) CC: Sebastien Stahl FERRITIN Collected: 11/20/2017 Status: F Source: [place] 1:15 PM [facility] REPOSITORY TYPE CODE TESTS RESULT OUT OF REFERENCE UNITS RANGE LAB FERR 30.3-565.7 ng/mL Low Ferritin 20.9 Performed By: #### FERR #### [facility] [address] [place], [place] [id number] LOENID ABS GR + CBC Collected: 11/20/2017 Status: F Source: [place] 1:14 PM [facility] REPOSITORY TYPE CODE TESTS RESULT OUT OF REFERENCE UNITS RANGE LAB WWBC 3.70-11.00 k/uL [place] WBC 8.97 LAB WRBC 4.20-6.00 m/uL [place] High RBC 6.17 LAB WHGB 13.0-17.0 g/dL Low [place] Hemoglobin 12.2 LAB WHCT 39.0-51.0 % [place] Hematocrit 41.4 LAB WMCV 80.0-100.0 fL Low [place] MCV 67.1 LAB WMCH 26.0-34.0 pg Low [place] MCH 19.8 LAB WMCHC 30.5-36.0 g/dL Low [place] MCHC 29.5 LAB WRDW 11.5-15.0 % [place] High RDW 20.4 LAB WPLT 150-400 k/uL [place] Platelet Cnt 246 LAB WMPV 9.0-12.7 fL [place] MPV 9.9 Result Comment: Test performed at: [facility], [address] [place] [address]., [place] [address]. LAB ABGRAN 1.45-7.50 k/uL Absol Gran 5.01 Count [place]ONID ABS GR + CBC Collected: 10/23/2017 Status: F Source: [place] 2:40 PM [facility] REPOSITORY TYPE CODE TESTS RESULT OUT OF REFERENCE UNITS RANGE LAB WWBC 3.70-11.00 k/uL [place] WBC 9.43 LAB WRBC 4.20-6.00 m/uL [place] High RBC 6.22 LAB WHGB 13.0-17.0 g/dL Low [place] Hemoglobin 12.4 LAB WHCT 39.0-51.0 % [place] Hematocrit 43.0 LAB WMCV 80.0-100.0 fL Low [place] MCV 69.1 LAB WMCH 26.0-34.0 pg Low [place] MCH 19.9 LAB WMCHC 30.5-36.0 g/dL Low [place] MCHC 28.8 LAB WRDW 11.5-15.0 % [place] High RDW 21.3 LAB WPLT 150-400 k/uL [place] Platelet Cnt 285 LAB WMPV 9.0-12.7 fL [place] MPV 10.2 Result Comment: Test performed at: [facility], [address] [place] [address]., [place] [address]. LAB ABGRAN 1.45-7.50 k/uL Absol Gran 5.47 Count FERRITIN Collected: 10/23/2017 Status: F Source: [place] 2:40 PM [facility] REPOSITORY TYPE CODE TESTS RESULT OUT OF REFERENCE UNITS RANGE LAB FERR 30.3-565.7 ng/mL Low Ferritin 13.7 Performed By: #### FERR #### [facility] [address] [place], [place] [address] [facility] Observed: 10/23/2017 Status: COMPLETED Source: [place] 2:30 PM [facility] REPOSITORY Infusion Center ([facility]) DALE SARABIA ([id number]) 1955 M Date Time Provider Department 10/23/17 2:30 PM TREATMENT RM 7 [facility] During your visit today, we recorded the following information about you: Temperature Pulse Blood pressure 98.1 degrees 112/minute 109/68 Referring Provider: MOSES JORDAN [[id number]] Allergies As of Date: 10/23/2017 Noted Allergy Reaction THEOPHYLLINE 02/25/2006 5 - Intolerance Comments: very lethargic and muscle cramps environmental [Other] 12/27/2008 Comments: Seasonal, food allergies Date Reviewed: 09/25/2017 Reviewed by: Soraya Arreguin (Rn) MANI Taylor - Fully Assessed Primary Visit Diagnosis:Secondary polycythemia [D75.1] Order(s):[facility] NURSING COMMUNICATION [[id number]] Order #: [id number]: 1 STANDING [facility] NUR[facility] COMMUNICATION [[id number]] Order #: [id number]: 1 STANDING Prescriptions as of 10/23/2017 Sig: FUROSEMIDE 40 MG TABLET Take 40 mg by mouth once hodan* SYMBICORT 160 MCG-4.5 MCG/ACT* Inhale 2 Puffs as instructed * LEVOTHYROXINE 25 MCG TABLET Take 25 mcg by mouth once lewis* METFORMIN 1,000 MG TABLET Take one tablet in AM AND 1 1/2* TOPROL XL 25 MG TABLET,EXTEND* Take 25 mg by mouth once hodan* TAMSULOSIN 0.4 MG CAPSULE Take 0.4 mg by mouth once lewis* ATORVASTATIN 20 MG TABLET Take 20 mg by mouth once hodan* LEVOTHYROXINE 200 MCG TABLET Take 200 mcg by mouth once da* AXIRON 30 MG/ACTUATION (1.5 M* Apply 1 Pump as directed once* TRIAMCINOLONE ACETONIDE 0.1 %* Apply 1 application to affect* HGQIDJJ-ENEJTFYTZLIDO-YMWQOTE* Take 2 tablets by mouth as ne* ASPIRIN 81 MG TABLET Take 81 mg by mouth once hodan* VALSARTAN 80 MG-HYDROCHLOROTH* Take 1 tablet by mouth once d* Problem List As Of Date 10/23/2017 Noted Resolved Obesity, unspecified [E66.9] Priority: Severe Unspecified essential hypertension [I10] Priority: A More... Unspecified hypothyroidism [E03.9] Priority: B Dysthymic disorder [F34.1] Priority: A More... More... Unspecified asthma [J45.909] INVALID FOR* Priority: B More... Other testicular hypofunction [E29.1] INVALID FOR* Priority: A More... Obstructive sleep apnea (adult) (pediatric) [G4*INVALID FOR* Priority: A Urinary calculus, unspecified [N20.9] INVALID FOR* Priority: Severe More... Allergic rhinitis, cause unspecified [J30.9] INVALID FOR* Priority: B SMALL UPPER AIRWAY -- DIFFICULT INTUBATION [J98*INVALID FOR* Priority: Moderate More... Impaired fasting glucose [R73.01] INVALID FOR* Priority: Moderate More... More... CAD (coronary artery disease) [I25.10] INVALID FOR* Priority: Severe More... Renal cell carcinoma [C64.9] INVALID FOR* Priority: Very Severe More... Secondary polycythemia [D75.1] INVALID FOR* Encounter Status:Closed by CHELSEA RODRIGUEZ on 10/23/17 HOSP Observed: 09/25/2017 Status: COMPLETED Source: [place] 2:30 PM [facility] REPOSITORY Infusion Center ([facility]) DALE SARABIA ([id number]) 1955 M Date Time Provider Department 09/25/17 2:30 PM TREATMENT 7 [facility] During your visit today, we recorded the following information about you: Pulse Blood pressure 94/minute 119/70 Referring Provider: MOSES JORDAN [[id number]] Allergies As of Date: 09/25/2017 Noted Allergy Reaction THEOPHYLLINE 02/25/2006 5 - Intolerance Comments: very lethargic and muscle cramps environmental [Other] 12/27/2008 Comments: Seasonal, food allergies Date Reviewed: 09/25/2017 Reviewed by: Soraya Arreguin (Rn) MANI Taylor - Fully Assessed Reason for Visit: Phlebotomy [1172] Primary Visit Diagnosis:Secondary polycythemia [D75.1] [facility] [[id number]] Order #: [id number]: 1 STANDING [facility] COMMUNICATION [[id number]] Order #: [id number]: 1 STANDING Prescriptions as of 09/25/2017 Sig: FUROSEMIDE 40 MG TABLET Take 40 mg by mouth once hodan* SYMBICORT 160 MCG-4.5 MCG/ACT* Inhale 2 Puffs as instructed * LEVOTHYROXINE 25 MCG TABLET Take 25 mcg by mouth once lewis* METFORMIN 1,000 MG TABLET Take one tablet in AM AND 1 1/2* TOPROL XL 25 MG TABLET,EXTEND* Take 25 mg by mouth once hodan* TAMSULOSIN 0.4 MG CAPSULE Take 0.4 mg by mouth once lewis* ATORVASTATIN 20 MG TABLET Take 20 mg by mouth once hodan* LEVOTHYROXINE 200 MCG TABLET Take 200 mcg by mouth once da* AXIRON 30 MG/ACTUATION (1.5 M* Apply 1 Pump as directed once* TRIAMCINOLONE ACETONIDE 0.1 %* Apply 1 application to affect* [id number]-AYZZASQYJIOEO-MKXQBZY* Take 2 tablets by mouth as ne* ASPIRIN 81 MG TABLET Take 81 mg by mouth once hodan* VALSARTAN 80 MG-HYDROCHLOROTH* Take 1 tablet by mouth once d* Problem List As Of Date 09/25/2017 Noted Resolved Obesity, unspecified [E66.9] Priority: Severe Unspecified essential hypertension [I10] Priority: A More... Unspecified hypothyroidism [E03.9] Priority: B Dysthymic disorder [F34.1] Priority: A More... More... Unspecified asthma [J45.909] INVALID FOR* Priority: B More... Other testicular hypofunction [E29.1] INVALID FOR* Priority: A More... Obstructive sleep apnea (adult) (pediatric) [G4*INVALID FOR* Priority: A Urinary calculus, unspecified [N20.9] INVALID FOR* Priority: Severe More... Allergic rhinitis, cause unspecified [J30.9] INVALID FOR* Priority: B SMALL UPPER AIRWAY -- DIFFICULT INTUBATION [J98*INVALID FOR* Priority: Moderate More... Impaired fasting glucose [R73.01] INVALID FOR* Priority: Moderate More... More... CAD (coronary artery disease) [I25.10] INVALID FOR* Priority: Severe More... Renal cell carcinoma [C64.9] INVALID FOR* Priority: Very Severe More... Secondary polycythemia [D75.1] INVALID FOR* Encounter Status:Closed by SORAYA TAYLOR on 09/25/17 [place] ABS GR + CBC Collected: 09/25/2017 Status: F Source: [place] 1:29 PM [facility] REPOSITORY TYPE CODE TESTS RESULT OUT OF REFERENCE UNITS RANGE LAB WWBC 3.70-11.00 k/uL [place] WBC 9.55 LAB WRBC 4.20-6.00 m/uL [place] High RBC 6.36 LAB WHGB 13.0-17.0 g/dL Low [place] Hemoglobin 12.7 LAB WHCT 39.0-51.0 % [place] Hematocrit 43.1 LAB WMCV 80.0-100.0 fL Low [place] MCV 67.8 LAB WMCH 26.0-34.0 pg Low [place] MCH 20.0 LAB WMCHC 30.5-36.0 g/dL Low [place] MCHC 29.5 LAB WRDW 11.5-15.0 % [place] High RDW 22.6 LAB WPLT 150-400 k/uL [place] Platelet Cnt 257 LAB WMPV 9.0-12.7 fL [place] MPV 9.9 Result Comment: Test performed at: [facility], [address] [place] [address] Rd., [place] [address]. LAB ABGRAN 1.45-7.50 k/uL Absol Gran 5.51 Count FERRITIN Collected: 09/25/2017 Status: F Source: [place] 1:29 PM [facility] REPOSITORY TYPE CODE TESTS RESULT OUT OF REFERENCE UNITS RANGE LAB FERR 30.3-565.7 ng/mL Low Ferritin 15.2 Performed By: #### FERR #### [facility] [address] [place], [place] [address] ALLERGIES ALLERGIES DATE TYPE / CODE NAME / CODE REACTION SEVERITY SOURCE [facility]812223869( [facility] SNOMED CT) [place] Repository Drug theophylline/F006 Unknown Unknown [place] 8 Allergy/103863540( 833839(RXNORM) [facility] SNOMED CT) Hospital Repository DRUG FENNEL SEED SHORTNESS OF [place] 7 INGREDI/181069379( [facility] SNOMED CT) [place] Repository Food/315385954(SNO CHOCOLATE SHORTNESS OF [place] [address]) [facility] [place] Repository Miscellaneous OTHER [place] 9 Allergy/831146003( [facility] SNOMED CT) [place] Repository DRUG THEOPHYLLINE INTOLERANCE [place] 6 INGREDI/325583394( [facility] SNOMED CT) [place] Repository ENCOUNTERS ENCOUNTERS ADMIT/DISCHARGE ACCOUNT ADMITTING ENCOUNTER LOCATION SOURCE NUMBER CLASS 09/14/[id number] [facility] ing:RAD Repository 09/01/2018/09/02/20 [id number] Ambulatory [address] Repository 09/01/2018/09/02/20 [id number] Ambulatory [address] Repository 08/31/2018 [id number] Ambulatory [facility] ing:LAB Repository 08/04/2018/08/05/20 [id number] Ambulatory [address] Repository 08/03/2018/08/28/20 [id number] Ambulatory [address] ing:LAB Repository 07/30/2018 [id number] Ambulatory [facility] ing:LAB Repository 07/09/2018/07/10/20 [id number] Ambulatory [address] Repository 07/03/2018/07/03/20 [id number] Ambulatory [address] ing:LAB Repository 07/02/2018 [id number] Ambulatory BMSBuilding:B [place] MS.[facility] Repository 06/26/[id number] [facility] ing:LAB Repository 06/21/2018/06/23/20 [id number] [place], Inpatient [place] [address] ing:PCURoom: Repository [id number]: 1 06/21/2018 [id number] [place], Ambulatory BMSBuilding:Melvin Joyce MS.[facility] Repository 06/21/2018 [id number] [place], Ambulatory BMSBuilding:Melvin Joyce MS.[facility] Repository 06/21/2018 [id number] Ambulatory BMSBuilding:Melvin Jaquez MS.[facility] Repository 06/19/2018/06/19/20 [id number] Ambulatory [address] HospitalBuild Hospital ing:CLSP Repository 06/19/2018/06/19/20 [id number] Ambulatory BMSBuilding:W [place] 18 [facility] Repository 06/18/2018/06/18/20 [id number] Ambulatory BMSBuilding:Melvin Jaquez 18 [facility] [place] 06/16/2018/06/16/20 [id number] Ambulatory BMSBuilding:Melvin Jaquez 18 MS.[facility] Repository 06/11/2018/06/12/20 [id number] Ambulatory [address] Repository 06/10/2018/06/10/20 [id number] Ambulatory [address] HospitalBuild Hospital ing:LAB Repository 06/02/2018 [id number] Ambulatory [facility] HospitalBuild Hospital ing:PSN Repository 06/02/2018 [id number] Ambulatory BMSBuilding:W [facility] Repository 05/27/2018 [id number] Ambulatory [facility] Hospital[facility] Hospital ing:EMPH Repository 05/21/2018 [id number] Ambulatory [facility] Hospital[facility] Hospital ing:PSN Repository 05/21/2018 [id number] Ambulatory BMSBuilding:W [facility] Repository 05/19/2018/05/19/20 [id number] Ambulatory BMSBuilding:Melvin Jaquez 18 [facility] [place] 05/14/2018/05/15/20 [id number] Ambulatory [address] Repository 05/13/2018 [id number] Ambulatory [facility] Hospital[facility] Hospital ing:LAB Repository 04/16/2018/04/17/20 [id number] Ambulatory [address] Repository 04/14/2018/04/16/20 [id number] Ambulatory [address] Repository 04/14/2018/04/14/20 [id number] Ambulatory [address] Repository 04/14/2018/04/20/20 [id number] Ambulatory [address] Repository 03/28/2018/03/28/20 [id number] Ambulatory BMSBuilding:W [place] 18 [facility] Repository 03/27/2018/03/28/20 [id number] [place], Ambulatory [address] ing:PCURoom: Repository [id number]: 1 03/27/2018 [id number] [place], Ambulatory BMSBuilding:Melvin Pederson MS.[facility] Repository 03/27/2018 [id number] [place], Ambulatory BMSBuilding:Melvin Pederson MS.[facility] Repository 03/05/2018/03/06/20 [id number] Ambulatory [address] Repository 03/05/2018/03/06/20 [id number] Ambulatory [address] Repository 02/19/2018/02/20/20 [id number] Emergency [address] ing:ED Repository 01/15/2018/01/17/20 [id number] Ambulatory [address] Repository 01/14/2018 [id number] Ambulatory [facility] ing:LAB Repository 01/06/2018/01/07/20 [id number] Ambulatory BMSBuilding:Melvin Jaquez 18 [facility] [place] 01/03/2018/01/05/20 [id number] [facility] ing:PCURoom: Repository [id number]: 1 01/03/2018 [id number] Sementi, Ambulatory BMSBuilding:Melvin Bustos MS.[facility] Repository 01/03/2018 [id number] Sementi, Ambulatory BMSBuilding:Melvin Bustos MS.[facility] Repository 12/18/2017/12/20/19 [id number] Ambulatory [place] 18 [facility] [place] Repository 12/17/2017 [id number] [place]ulatory [place] [facility] ing:AC Repository E 12/04/2017/12/05/19 [id number] Ambulatory BMSBuilding:B [place] 18 [facility] Repository 11/20/2017/12/09/19 [id number] Ambulatory [place] 18 [facility] [place] Repository 11/20/2017/12/10/19 [id number] Ambulatory [place] 18 [facility] [place] Repository 10/23/2017/10/24/19 [id number] Ambulatory [place] 18 [facility] [place] Repository 10/23/2017/10/24/19 [id number] Ambulatory [place] 18 [facility] [place] Repository 09/25/2017/09/26/20 [id number] Ambulatory [place] 17 [facility] Repository 09/25/2017/09/26/20 [id number] Ambulatory [place] 17 [facility] Repository PAYERS PAYERS ENCOUNTER GUARANTOR PAYER SUBSCRIBER SOURCE 09/14/2018 DALE Perez Primary Insurance:[facility] DALE Jaquez [id number] [facility] [id number] Number: Repository [address]Yoz: 330 [id number] [phone] (HP) Date:2706-45-22VJ [address] [address]SPZLROSFT, [place] [address]OE: CHECK WEBSITE 09/14/2018 Secondary NOT GIVENUNK Leonid Insurance:SELF PAY [facility] Number: Effective Repository Date:2018-09-14 08/31/2018 DALE Perez Primary Insurance:[facility] DALE Jaquez [id number] [facility]: [facility] [id number] [place], [place] Number: Repository [address]Xbh: 330 [id number] [phone] (HP) Date:7045-67-52LN [address] [address]QAHEGTHRZ, [place] [address]AL: CHECK WEBSITE 08/31/2018 Secondary NOT GIVENUNK [place] Insurance:SELF PAY [facility] Number: Effective Repository Date:2018-08-31 08/03/2018 DALE Perez Primary Insurance:[facility] DALE Jaquez [id number] [facility]: [facility] [id number] [place] Number: Repository [address]Ywy: 330 [id number] [phone] (HP) Date:3279-59-72BN [address] [address]QQPXPURAZ, [place] [address]FI: CHECK WEBSITE 08/03/2018 Secondary NOT GIVENUNK Leonid Insurance:SELF PAY [facility] Number: Effective Repository Date:2018-08-03 07/30/2018 DALE P Primary Insurance:[facility] DALE Jaquez [id number] [facility]: [facility] [id number] [place] Number: Repository [address]Sha: 330 [id number] [phone] (HP) Date:3216-28-24NZ [address] [address]DWZYFLDQB, [place] [address]KY: CHECK WEBSITE 07/30/2018 Secondary NOT GIVENUNK [place] Insurance:SELF PAY [facility] Number: Effective Repository Date:2018-07-30 07/03/2018 DALE Perez Primary Insurance:[facility] DALE Jaquez [id number] [facility]: [facility] [id number] [place] Number: Repository [address]Fuv: 330 [id number] [phone] (HP) Date:8881-76-65LZ [address] [address]NBFEVEJMF, [place] [address]BS: CHECK WEBSITE 07/03/2018 Secondary NOT GIVENUNK Leonid Insurance:SELF PAY [facility] Number: Effective Repository Date:2018-07-01 07/02/2018 DALE Perez Primary Insurance:[facility] DALE Jaquez [id number] [facility]: [facility] [id number] [place] Number: Repository [address]Dum: 330 [id number] [phone] (HP) Date:3694-61-60QC [address] [address]VLFJVHTQO, [place] [address]BQ: CHECK WEBSITE 07/02/2018 Secondary DALE P [place] Insurance:MEDICARE A HOUSTONDOB: Community ONLYPolicy Number: [id number] Hospital [id number] AEffective Repository Date:2018-07-02 07/02/2018 Tertiary NOT GIVENUNK Leonid Insurance:SELF PAY [facility] Number: Effective Repository Date:2018-07-02 06/26/2018 DALE P Primary Insurance:[facility] DALE Perez Leonid [id number] [facility] [id number] [place] Number: Repository [address]Fcn: (893) [id number] [phone] (HP) Date:9546-99-80HR [address] [address]DRPFSHWDX, [place] [address]QM: CHECK WEBSITE 06/26/2018 Secondary DALE P [place] Insurance:MEDICARE A [facility]DOB: [facility] ONLYPho[facility] Children[facility] Hospitalic Number: [id number] Hospital [id number] Repository Date:2018-06-26 06/26/2018 Tertiary NOT GIVENUNK [place] Insurance:SELF PAY [facility] Number: Effective Repository Date:2018-06-26 06/21/2018 DALE P Primary Insurance:[facility] DALE Jaquez [id number] [facility]: [facility] [id number] Number: Repository [address]Egr: (840) [id number] [phone] (HP) Date:3636-88-29LG [address] [address]BFRRTAHZH, [place] [address]OJ: CHECK WEBSITE 06/21/2018 Secondary DALE P Leonid Insurance:MEDICARE A [facility]PHDOB: [facility] ONLYPoly Number: [id number] Hospital [id number] AEffective Repository Date:2018-06-21 06/21/2018 Tertiary NOT GIVENUNK Leonid Insurance:SELF PAY [facility] Number: Effective Repository Date:2018-06-21 06/21/2018 DALE P Primary Insurance:[facility] DALE P Leonid [id number] [facility]: [facility] [id number] Number: Repository [address]Lno: 330 [id number] [phone]) Date:7072-28-11CH [address] [address]YOJDPLGPD, [place] [address]NG: CHECK WEBSITE 06/21/2018 Secondary NOT GIVENUNK [place] Insurance:SELF PAY [facility] Number: Effective Repository Date:2018-06-21 06/21/2018 DALE Perez Primary Insurance:[facility] DALE Jaquez [id number] [facility]: [facility] [id number] [place] Number: Repository [address]Btn: 330 [id number] [phone] (HP) Date:7678-03-49UO [address] [address]YOTMEMFJM, [place] [address]NQ: CHECK WEBSITE 06/21/2018 Secondary NOT GIVENUNK [place] Insurance:SELF PAY [facility] Number: Effective Repository Date:2018-06-21 06/21/2018 DALE Perez Primary Insurance:[facility] DALE [address]aquez [address]: [facility] [id number] [place], [place] Number: Repository [address]Vod: 330 [id number] [phone] (HP) Date:3823-22-21JP [address] [address]UHZHFATHT, [place] [address]JC: CHECK WEBSITE 06/21/2018 Secondary NOT GIVENUNK Leonid Insurance:SELF PAY [facility] Number: Effective Repository Date:2018-06-21 06/19/2018 DALE Perez Primary Insurance:[facility] DALE Jaquez [id number] [facility]: [facility] [id number] [place], [place] Number: Repository [address]Tpv: 330 [id number] [phone] (HP) Date:6875-46-47RU [address] [address]QOHOHOERI, [place] [address]IB: CHECK WEBSITE 06/19/2018 Secondary NOT GIVENUNK Leonid Insurance:SELF PAY [facility] Number: Effective Repository Date:2018-06-16 06/19/2018 DALE P Primary Insurance:[facility] DALE P [place] [id number] [facility]DOB: [facility] [id number] [place], [place] Number: Repository [address]Byi: 330 [id number] [phone] (HP) Date:7778-35-60SE [address] [address]CYLYMERIQ, [place] [address]FQ: CHECK WEBSITE 06/19/2018 Secondary NOT GIVENUNK [place] Insurance:SELF PAY [facility] Number: Effective Repository Date:2018-06-19 06/18/2018 DALE P Primary Insurance:[facility] DALE P [place] [id number] [facility]: [facility] [id number] [place], [place] Number: Repository [address]Brn: 330 [id number] [phone] (HP) Date:0331-43-59DP [address] [address]DVYRGOHPQ, [place] [address]IF: CHECK WEBSITE 06/18/2018 Secondary DALE P [place] Insurance:MEDICARE A [facility]PHDOB: [facility] ONLY[facility] Number: [id number] Hospital [id number] AEffective Repository Date:2018-05-19 06/18/2018 Tertiary NOT GIVENUNK Leonid Insurance:SELF PAY [facility] Number: Effective Repository Date:2018-06-11 06/16/2018 DALE P Primary Insurance:[facility] DALE P Leonid [id number] [facility]: [facility] 1980-02-20UJUMount [place] Number: Repository [address]Coj: 330 [id number] [phone]) Date:3816-10-91DL [address] [address]WGJCDOGDK, [place] [address]KV: CHECK WEBSITE 06/16/2018 Secondary NOT GIVENUNK [place] Insurance:SELF PAY [facility] Number: Effective Repository Date:2018-06-16 06/10/2018 DALE P Primary Insurance:[facility] DALE P Leonid [address]: [facility] 0737-20-15TCUMount [place] Number: Repository [address]Epa: 330 [id number] [phone] (HP) Date:2984-73-23TI [address] [address]UXHFYUNMU, [place] [address]EK: CHECK WEBSITE 06/10/2018 Secondary NOT GIVENUNK Leonid Insurance:SELF PAY [facility] Number: Effective Repository Date:2018-06-10 06/02/2018 DALE P Primary Insurance:[facility] DALE Florenceoster [id number] [facility]: [facility] [id number] Hospital [place] Number: Repository [address]Jaf: 330 [id number] [phone] (HP) Date:9012-58-71OG [address] [address]DBPUJKYYN, [place] [address]PU: CHECK WEBSITE 06/02/2018 Secondary NOT GIVENUNK [place] Insurance:SELF PAY [facility] Number: Effective Repository Date:2018-05-19 06/02/2018 DALE P Primary Insurance:[facility] DALE Florenceoster [id number] [facility]: [facility] [id number] [place], [place] Number: Repository [address]Iaz: 330 [id number] [phone] (HP) Date:4406-62-61JX [address] [address]BWNSPGOXN, [place] [address]WH: CHECK WEBSITE 06/02/2018 Secondary NOT GIVENUNK Leonid Insurance:SELF PAY [facility] Number: Effective Repository Date:2018-06-02 05/27/2018 DALE P Primary NOT GIVENUNK [place] [id number] Insurance:SELF PAY [place] Number: Effective Repository [address]Tpl: 330) Date:2018-05-27 [phone] ([phone] 05/21/2018 DALE P Primary Insurance:[facility] DALE Jaquez [id number] [facility]: [facility] 9745-13-05USIFoothills Hospital [place] Number: Repository [address]Aeq: 330 [id number] [phone] (HP) Date:0470-75-91OC [address] [address]MXZGEEVDX, [place] [address]KR: CHECK WEBSITE 05/21/2018 Secondary NOT GIVENUNK Leonid Insurance:SELF PAY [facility] Hospital Number: Effective Repository Date:2018-05-19 05/21/2018 DALE P Primary Insurance:[facility] DALE P Leonid [id number] [facility]: [facility] [id number] [place], [place] Number: Repository [address]Jku: 330 [id number] [phone] (HP) Date:8905-96-64JZ [address] [address]DHYPQPWEI, [place] [address]SK: CHECK WEBSITE 05/21/2018 Secondary NOT GIVENUNK [place] Insurance:SELF PAY [facility] Hospital Number: Effective Repository Date:2018-05-21 05/19/2018 DALE P Primary Insurance:[facility] DALE P [place] [id number] [facility]: [facility] [id number] Number: Repository [address]Tvu: 330 [id number] [phone] (HP) Date:2445-66-86GF [address] [address]OVOEAFXUV, [place] [address]AF: CHECK WEBSITE 05/19/2018 Secondary DALE P [place] Insurance:MEDICARE A [facility]: [facility] Number: [id number] Hospital [id number] AEffective Repository Date:2018-05-18 05/19/2018 Tertiary NOT GIVENUNK [place] Insurance:SELF PAY [facility] Hospital Number: Effective Repository Date:2018-05-19 05/13/2018 DALE P Primary Insurance:[facility] DALE P Leonid [id number] [facility]: [facility] 5835-63-46BLPMount [place] Number: Repository [address]Xtq: 330 [id number] [phone] (HP) Date:4211-30-90CP [address] [address]CRTBFLGOA, [place] [address]JB: CHECK WEBSITE 05/13/2018 Secondary NOT GIVENUNK [place] Insurance:SELF PAY [facility] Hospital Number: Effective Repository Date:2018-05-13 03/28/2018 DALE Perez Primary Insurance:[facility] DALE Jaquez [id number] [facility]: [facility] [id number] Number: Repository 10647Bnv: 330 [id number] [phone] (HP) Date:3407-05-69PL [address] [address]KARDRKNEW, [place] [address]EJ: CHECK WEBSITE 03/28/2018 Secondary NOT GIVENUNK [place] Insurance:SELF PAY [facility] Number: Effective Repository Date:2018-03-28 03/27/2018 DALE Perez Primary Insurance:[facility] DALE Jaquez [id number] [facility]: [facility] [id number] Number: Repository [address]Mvp: 330 [id number] [phone] (HP) Date:7648-79-74LJ [address] [address]IBORDCUBT, [place] [address]QU: CHECK WEBSITE 03/27/2018 Secondary NOT GIVENUNK [place] Insurance:SELF PAY [facility] Number: Effective Repository Date:2018-03-27 03/27/2018 DALE Perez Primary Insurance:[facility] DALE Jaquez [id number] [facility]: [facility] [id number] Number: Repository [address]Eke: 330 [id number] [phone]) Date:2999-99-94IK [address] [address]47VQFFFJGJB, [place] [address]OL: CHECK WEBSITE 03/27/2018 Secondary NOT GIVENUNK [place] Insurance:SELF PAY [facility] Number: Effective Repository Date:2018-03-27 03/27/2018 DALE Perez Primary Insurance:[facility] DALE Jaquez [id number] [facility]B: [address] Number: Repository [address]Ilp: 330 [id number] [phone] (HP) Date:9945-14-35UL [address] [address]EYXBGAQZM, [place] [address]TO: CHECK WEBSITE 03/27/2018 Secondary NOT GIVENUNK [place] Insurance:SELF PAY [facility] Number: Effective Repository Date:2018-03-27 02/19/2018 DALE P Primary Insurance:[facility] DALE Perez [place] [id number] [facility]: [facility] [id number] [place], [place] Number: Repository [address]Sza: 330 [id number] [phone] () Date:3762-28-96EL [address] [address]DMGSZNSFS, [place] [address]RB: CHECK WEBSITE 02/19/2018 Secondary NOT GIVENUNK [place] Insurance:SELF PAY [facility] Number: Effective Repository Date:2018-02-19 01/14/2018 DALE P Primary Insurance:[facility] DALE Perez Leonid [id number] [facility]: [facility] [id number] [place] Number: Repository [address]Tfi: 330 [id number] [phone] () Date:1056-62-06OL [address] [address]KJLPINSSO, [place] [address]PG: CHECK WEBSITE 01/14/2018 Secondary NOT GIVENUNK [place] Insurance:SELF PAY [facility] Number: Effective Repository Date:2018-01-14 01/06/2018 DALE P Primary Insurance:[facility] DALE Perez Leonid [id number] [facility]: [facility] [id number] [place], [place] Number: Repository [address]Leq: 330 [id number] [phone] () Date:5929-12-44XZ [address] [address]KCVEQKEYT, [place] [address]DA: CHECK WEBSITE 01/06/2018 Secondary NOT GIVENUNK [place] Insurance:SELF PAY [facility] Number: Effective Repository Date:2018-01-02 01/03/2018 DALE P Primary Insurance:[facility] DALE Perez [place] [id number] [facility]: [facility] [id number] Number: Repository 46666Jkl: 330 [id number] [phone] (HP) Date:4530-73-22GY [address] [address]DEISNTQFW, [place] [address]YU: CHECK WEBSITE 01/03/2018 Secondary NOT GIVENUNK [place] Insurance:SELF PAY [facility] Number: Effective Repository Date:2018-01-03 01/03/2018 DALE Perez Primary Insurance:[facility] DALE Perez Leonid [id number] [facility]: [facility] [id number] [place], [place] Number: Repository [address]39Ndi: 330 [id number] [phone] (HP) Date:6787-80-19AH [address] [address]LHMDLACLU, [place] [address]TW: CHECK WEBSITE 01/03/2018 Secondary NOT GIVENUNK [place] Insurance:SELF PAY [facility] Number: Effective Repository Date:2018-01-03 01/03/2018 DALE Perez Primary Insurance:[facility] DALE [address]aquez [address]: [facility] [id number] [place], [place] Number: Repository [address]Fgx: 330 [id number] [phone] (HP) Date:8033-40-79EW [address] [address]WJJFALTCP, [place] [address]OP: CHECK WEBSITE 01/03/2018 Secondary NOT GIVENUNK [place] Insurance:SELF PAY [facility] Number: Effective Repository Date:2018-01-03 12/17/2017 DALE Perez Primary Insurance:[facility] DALE Jaquez [id number] [facility]: [facility] [id number] [place] Number: Repository [address]Gsf: 330 [id number] [phone] (HP) Date:5377-55-55KV [address] [address]90KPKICSDDH, [place] [address]QM: CHECK WEBSITE 12/17/2017 Secondary NOT GIVENUNK [place] Insurance:SELF PAY [facility] Number: Effective Repository Date:2017-11-24 12/04/2017 DALE Perez Primary DALE Jaquez [id number] Insurance:MEDICAL [facility]PHDOB: [facility] [id number], [place] Number: Repository [address]Yuo: (132) [id number] [phone] () Date:5293-59-94VY [address], [place] [address]QE: 12/04/2017 Secondary NOT GIVENLEATHA [place] Insurance:SELF PAY [facility] Number: Effective Repository Date:2017-12-04
== END 2018-08-31 11:00 | disposition home or self-care (01) ==
LOC: LAB 10:33
PROVIDERS: Family Provider Family Medicine; PCP Family Medicine; Referring Provider Internal Medicine Hematology & Oncology; Visit Provider Internal Medicine Hematology & Oncology
DX: D75.1 Secondary polycythemia (principal); E03.9 Hypothyroidism, unspecified; T78.40XA Allergy, unspecified, initial encounter
CPT/HCPCS: 36415; 82728; 85027

== ENCOUNTER → 2018-09-14 13:22 | Outpatient (CLI) | payer OTHER, SELFPAY ==
--- NOTE | 2018-09-14 13:25 | RAD_ITS ---
STUDY: X-RAY - PELVIS AND LEFT HIP REASON FOR EXAM: Male, 63 years old. Left hip pain x years, no known injury. TECHNIQUE: 3 views of the pelvis and hip. COMPARISON: AP pelvis and 2 additional views of the left hip on a total of 4 films May 21, 2017 FINDINGS: There is a non-specific bowel gas pattern. There are multiple calcified phleboliths. There is stable degenerative changes of the visualized lower lumbar spine. There is stable borderline narrowing with cortical sclerosis and osteophyte formation of the bilateral sacroiliac joints, consistent with degenerative osteoarthritic changes. Cortical enthesophytes again seen at the lateral margins of the bilateral iliac wings. Normal visualized sacrum. Normal bilateral superior and inferior pubic rami. Normal pubic symphysis. Normal bilateral ischial tuberosities. Normal visualized femoral head. There is stable oblong ossific density, possibly cortical spurring, along the inferior margin of the femoral neck. Cortical and calcified also seen at the greater trochanter. Normal acetabulum. There is stable mild articular joint space narrowing of the hip. No demonstrated acute osseous destructive lesion or fracture. RAD/HIP, UNI W/ Pelvis 2-3 Views IMPRESSION: Stable x-ray examination of the pelvis and left hip since April 2017, as described. Electronically Signed: Dell Prieto MD at 14:12 EST , Service support ,
--- OUTSIDE RECORDS SUMMARY | 2018-12-17 04:24 | XMS RPT_ITS ---
:1955 Author Organization OHIP Support Name Relationship Address Phone ALANA SARABIA Unavailable [address] + [place] [address] [facility] Unavailable [address] + [place] [address] ADRIAN, ALANA Unavailable [address] + [place] [address] [facility] Unavailable [address] + [place] [address] SARABIA, ALANA Unavailable [address] + [place] [address] [facility] Unavailable [address] + [place] [address] SARABIA, ALANA Unavailable [address] + [place] [address] [facility] Unavailable [address] + [place] [address] SARABIA, ALANA Unavailable [address] + [place] [address] [facility] Unavailable [address] + [place] [address] RALPH, ALANA Unavailable [address] + [place] [address] [facility] Unavailable [address] + [place] [address] SARABIA, ALANA Unavailable [address] + [place] [address] [facility] Unavailable [address] + [place] [address] SARABIA, ALANA Unavailable [address] + [place] [address] [facility] Unavailable [address] + [place] [address] SARABIA, ALANA Unavailable [address] + [place] [address] [facility] Unavailable [address] + [place] [address] SARABIA, ALANA Unavailable [address] + [place] [address] [facility] Unavailable [address] + [place] [address] SARABIA, ALANA Unavailable [address] + [place] [address] [facility] Unavailable [address] + [place] [address] SARABIA, ALANA Unavailable [address] + [place] [address] [facility] Unavailable [address] + [place] [address] SARABIA, ALANA Unavailable [address] + [place] [address] [facility] Unavailable [address] + [place] [address] SARABIA, ALANA Unavailable [address] + [place] [address] [facility] Unavailable [address] + [place] [address] SARABIA, ALANA Unavailable [address] + [place] [address] [facility] Unavailable [address] + [place] [address] SARABIA, ALANA Unavailable [address] + [place] [address] [facility] Unavailable [address] + [place] [address] SARABIA, ALANA Unavailable [address] + [place] [address] [facility] Unavailable [address] + [place] [address] SARABIA, ALANA Unavailable [address] + [place] [address] [facility] Unavailable [address] + [place] [address] SARABIA, ALANA Unavailable [address] + [place] [address] [facility] Unavailable [address] + [place] [address] SARABIA, ALANA Unavailable [address] + [place] [address] [facility] Unavailable [address] + [place] [address] SARABIA, ALANA Unavailable [address] + [place] [address] [facility] Unavailable [address] + [place] [address] SARABIA, ALANA Unavailable [address] + [place] [address] [facility] Unavailable [address] + [place] [address] SARABIA, ALANA Unavailable [address] + [place] [address] [facility] Unavailable [address] + [place] [address] SARABIA, ALANA Unavailable [address] + [place] [address] [facility] Unavailable [address] + [place] [address] SARABIA, ALANA Unavailable [address] + [place] [address] [facility] Unavailable [address] + [place] [address] SARABIA, ALANA Unavailable [address] + [place] [address] [facility] Unavailable [address] + [place] [address] SARABIA, ALANA Unavailable [address] + [place] [address] [facility] Unavailable [address] + [place] [address] SARABIA, ALANA Unavailable [address] + [place] [address] [facility] Unavailable [address] + [place] [address] ADRIAN, ALANA Unavailable [address] + [place] [address] [facility] Unavailable [address] + [place] [address] ADRIAN, ALANA Unavailable [address] + [place] [address] [facility] Unavailable [address] + [place] [address] ADRIAN, ALANA Unavailable [address] + [place] [address] [facility] Unavailable [address] + [place] [address] ADRIAN, ALANA Unavailable [address] + [place] [address] [facility] Unavailable [address] + [place] [address] ADRIAN, ALANA Unavailable [address] + [place] [address] [facility]available [address] + [place] [address] ADRIAN, ALANA Unavailable [address] + [place] [address] [facility] Unavailable [address] + [place] [address] SARABIA, ALANA Unavailable [address] + [place] [address] [facility] Unavailable [address] + [place] [address] SARABIA, ALANA Unavailable [address] + [place] [address] [facility] Unavailable [address] + [place] [address] ADRIAN, ALANA Unavailable [address] + [place] [address] R Unavailable Unavailable Unavailable [facility] Unavailable [address] + [place] [address] ADRIAN, ALANA Unavailable [address] + [place] [address] R Unavailable Unavailable Unavailable R Unavailable Unavailable Unavailable Care Team Providers Name Role Phone JULIAN, MOSES Cummings Referring Unavailable MASCI, MOSES Cummings [...] Attending Unavailable Basali, Bakari Referring Unavailable Maribeth, [facility] Care Unavailable Masci, Moses Attending Unavailable Masci, Moses Referring Unavailable Maribeth, [facility] Care Unavailable Masci, Moses Attending Unavailable Maribeth, [facility] Unavailable Masci, Moses Referring Unavailable Nataliya, Geovanni Moore Consulting Unavailable Rafael Solorio Attending Unavailable Maribeth, Sebastien Referring Unavailable Maribeth, [facility] Care Unavailable [facility], [facility] Care Unavailable Sementi, Juli Admitting Unavailable Sementi, Juli Attending Unavailable Maribeth, [facility] Care Unavailable Norma Paredes Attending Unavailable Sementi, Juli Admitting Unavailable [facility], [facility] Care Unavailable Sementi, Juli Consulting Unavailable Sementi, Juli Attending Unavailable Sementi, Juli Admitting Unavailable Maribeth, [facility] Care Unavailable Sementi, Juli Consulting Unavailable Sementi, Juli Attending Unavailable Toma Morley Attending Unavailable Maribeth, Sebastien Referring Unavailable Masci, Moses Attending Unavailable Masci, Moses Referring Unavailable Maribeth, [facility] Care Unavailable Maribeth, [facility] Care Unavailable Jdud Fisher Attending Unavailable Maribeth, [facility] Unavailable [place], Kombian Admitting Unavailable Ashelfah, Ghasem Attending Unavailable [place], Kombian Admitting Unavailable [place], Kombian Attending Unavailable [facility], [facility] Unavailable [place], Kombian Consulting Unavailable [place], Kombian Admitting Unavailable Ashelfah, Ghasem Attending Unavailable Maribeth, Sebastien Primary Care Unavailable Ashelfah, Ghasem Consulting Unavailable Brian, Upp[place] Attending Unavailable Terrelli, Moses Attending Unavailable Terrelli, Moses Referring Unavailable Maribeth, Sebastien Primary Care Unavailable Toma Morley Attending Unavailable Maribeth, Sebastien Referring Unavailable Sherman GouldO. Attending Unavailable Isac Gould.O. Referring Unavailable Maribeth, Sebastien Primary Care Unavailable ASSESSMENT, HEALTH RISK Attending Unavailable Maribeth, Sebastien Primary Care Unavailable Sherman GouldO. Attending Unavailable Isac Gould.O. Referring Unavailable Maribeth, Sebastien Primary Care Unavailable Morales Storey Attending Unavailable Isac Gould.O. Referring Unavailable Terrelli, Moses Attending Unavailable Masci, Moses Referring Unavailable Maribeth, Sebastien Primary Care Unavailable Brian, Upperglade Attending Unavailable Maribeth, Sebastien Referring Unavailable Maribeth, Sebastien Primary Care Unavailable Morales Storey Attending Unavailable Isac Gould.O. Referring Unavailable Brian, Rafael Attending Unavailable Brian, [...] Referring Unavailable Maribeth, Sebastien Primary Care Unavailable Julian, Moses Attending Unavailable Terrelli, Moses Referring Unavailable Maribeth, Sebastien Primary Care Unavailable David Mclain Consulting Unavailable Pati Jones Attending Unavailable Brian, Rafael Attending Unavailable Brian, Rafael Referring Unavailable Masci, Moses Attending Unavailable Terrelli, Moses Referring Unavailable Maribeth, Sebastien Primary Care Unavailable David Mclain Consulting Unavailable Julian, Moses Attending Unavailable Maribeth, Sebastien Primary Care Unavailable Terrelli, Moses Attending Unavailable Maribeth, Sebastien Primary Care Unavailable Masci, Moses Referring Unavailable Masci, Moses Attending Unavailable Maribeth, Sebastien Primary Care Unavailable Terrelli, Moses Referring Unavailable PROBLEMS PROBLEMS DATE TYPE CONDITION / CODE ATTENDING STATUS SOURCE 10/04/2018 Unknown S73.102Norma Vallecillo Active [place] Unspecified sprain of Community left hip, initial Hospital encounter / Repository S73.102A(ICD-10) 09/28/2018 Unknown 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 / Community D75.1(ICD-10) Hospital Repository 06/16/2018 Unknown Z98.61 - Coronary Brian, Rafael Active [place] angioplasty status / Community Z98.61(ICD-10) Hospital Repository 06/16/2018 Unknown I10 - Essential Brian, Rafael Active [place] (primary) Community hypertension / Hospital I10(ICD-10) Repository 06/16/2018 Unknown I25.10 - Brian, Upperglade Active [place] Atherosclerotic heart Community disease of [facility] coronary artery 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 / I25.10(ICD-10) 06/16/2018 Unknown R06.09 - Other forms Brian, Upperglade Active [place] of dyspnea / Community R06.09(ICD-10) Hospital Repository 07/01/2018 Unknown E03.9 - Moses Jordan Active [place] Hypothyroidism, Community unspecified / Hospital E03.9(ICD-10) Repository 06/16/2018 Unknown J44.9 - Chronic RaleighMorales cortes Active [place] obstructive pulmonary Community disease, unspecified Hospital / J44.9(ICD-10) Repository 04/14/2018 Active Personal history of NA Active [place] 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[facility] Main neoplasm of kidney / [place] Z85.528(ICD-10) Repository 07/02/2018 Unknown R55 - Syncope and Ahmed, Rami Active [place] collapse / Community R55(ICD-10) Hospital Repository 12/04/2017 Unknown G47.33 - Obstructive Brian, Upperglade Active [place] sleep apnea (adult) Community (pediatric) / Hospital G47.33(ICD-10) Repository 12/04/2017 Unknown E78.5 - Brian, Upperglade Active [place] Hyperlipidemia, Community unspecified / Hospital E78.5(ICD-10) Repository 10/16/2015 Active Secondary NA Active [place] polycythemia / Clinic Main D75.1(ICD-10) [place] Repository PROCEDURES PROCEDURES No Procedure Records FoundRESULTS RESULTS CBC-COMPLETE BLOOD CNT Collected: 10/14/2018 Status: F Source: [place] NO DIFF 10:48 AM [facility] REPOSITORY TYPE CODE TESTS RESULT OUT OF RANGE REFERENCE UNITS LAB L100.1000 4.4-11.0 K/mm3 Normal WBC 4.7 LAB L100.1200 4.6-6.2 M/mm3 High RBC 6.36 LAB L100.1300 13.0-16.5 g/dl Normal HGB 14.2 LAB L100.1400 40-54 % Normal HCT 48.0 LAB L100.1500 80-94 fL Low MCV 75.5 LAB L100.1600 27.0-32.0 pg Low MCH 22.3 LAB L100.1700 32-36 g/gl Low MCHC 29.6 LAB L100.1810 11.6-14.6 % High RDW CV 23.3 LAB L100.1820 35.1-43.9 fl High RDW SD 61.5 LAB L100.1900 150-450 K/mm3 Normal PLT 190 LAB L100.2000 6.2-12.0 fl Normal MPV 10.4 Performed By: #### L100.0500, L100.4500 #### [facility] [address] [place], [place], [address] DIFFERENTIAL COMMENT Collected: 10/14/2018 Status: F Source: [place] 10:48 AM [facility] [place] TYPE CODE TESTS RESULT OUT OF RANGE REFERENCE UNITS LAB L100.4500 Normal SMEAR COMMENT Result Comment: ANISOCYTOSIS 1+ Performed By: #### L100.0500, L100.4500 #### [facility] [address] [place], [place], [address] FERRITIN Collected: 10/14/2018 Status: F Source: [place] 10:48 AM [facility] REPOSITORY TYPE CODE TESTS RESULT OUT OF REFERENCE UNITS RANGE LAB L503.6550 26-388 ng/mL Low FERRITIN 8 Performed By: #### L503.6550 #### [facility] [address] [place], [place], [address] CNPN Observed: 10/05/2018 Status: COMPLETED Source: [place] 12:00 AM [facility] REPOSITORY Telephone (HEMAWS) DALE SARABIA ([id number]) 1955 M Date Time Provider Department 10/05/18 MOSES JORDAN During your visit today, we recorded the following information about you: Erika Deborah 10/05/2018 10:07 AM Signed Patient has been identified by name and date of : Yes Last office visit in this department: 05/25/2013 RX INSTRUCTIONS: Patient aware RX will be sent to pharmacy. No need to notify patient. Patient states he is now taking prescription twice daily. Patient phones requesting refills as follows: Pending Prescriptions Disp Refills HYDROXYUREA 500 MG CAPSULE 30 capsule 5 Sig: Take 1 capsule by mouth once daily. FAMILIA: No Please review and advise. Erika Medrano LPN 10/05/2018 10:41 AM Signed Patient has refills at [facility]. No need for a refill at this time. Margaret Tobias PSR 10/07/2018 12:03 PM Addendum Patient calling very upset that he has not gotten his medication. Patient stating that Dr. Jordan has increased dose so patient will need a new prescription per phone note 09/25. New script was not called in. Patient was very upset that he was not contacted to verify dose. Patient hung up phone as I was explaining that he would be contacted. Please advise and call patient once this is completed. Margaret Medrano LPN 10/07/2018 12:14 PM Signed According to phone note 09/25/2018, you increased Hydrea to BID. [facility] needs new Rx so he can fill at this time. Please advise. Margaret Jordan DO 10/07/2018 12:19 PM Signed The following approved medication requests have been transmitted electronically. Signed Prescriptions Disp Refills hydroxyurea (HYDREA) 500 mg capsule 180 capsule 3 Sig: Take 1 capsule by mouth twice daily. FAMILIA: No Authorizing Provider: MOSES JORDAN DO Paul A Masci, DO 10/07/2018 12:19 PM Signed Addended by: MOSES JORDAN DO on: 10/07/2018 12:19 PM Modules accepted: Orders Margaret Medrano LPN 10/07/2018 12:51 PM Signed Detailed message left on patient's voicemail. 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 Medications Discontinued During This Encounter hydroxyurea (HYDREA) 500 mg capsule 30 c* 5 09/01/2018 10/07/2018 Route: ORAL Sig: Take 1 capsule by mouth once daily. Disc: Reason for discontinue is not on file. Encounter Status:Closed by MARGARET MEDRANO LPN on 10/05/18 EMERGENCY DEPARTMENT Observed: 10/04/2018 Status: F Source: [place] SUMMARY 10:00 PM [facility] Medical Records Department [address] [place] [address] Emergency Department Summary 10/04/18 1532 MR#: [id number] Acct: [id number] Name: DALE SARABIA Rep #: [id number] : 1955 63 From: Norma Paredes MD PCP: Sebastien Stahl MD Status: DEP ER - ER Visit Summary Date of Service: 10/04/18 Chief Complaint: Hip pain History of Present Illness: The patient is a 63 M with history of hip arthritis. Patient states he was last seen by orthopedics approximately 3 years ago and told it was not bad enough to need a hip replacement. He has been following with Dr. Solis. Patient states he was at [employer] today walking when he had sudden sharp pain at the lateral posterior left hip that shot down the back of his leg to his knee. Pain is improving at this time. Physical Examination: Vital signs gross unremarkable. Heart rate is slightly elevated at 108. Patient is sitting on the side of the bed. He was observed ambulate and back to the restroom with his cane. Head neck examination unremarkable. Heart is regular rate and rhythm. Lung sounds are slightly diminished throughout. Abdomen is soft, obese, nontender. Lower external examination reveals mild tenderness to the posterior lateral aspect of the left hip. He has full range of motion. Strong distal pulses are noted. Test Results: Left hip and pelvis x-rays are obtained that show no acute findings. Emergency Department Course and Treatment: Patient was given [place] here. On repeat evaluation he is improved. He will be given a short course of [place] for home and will follow up with his physician. Treatment Plan: [] Disposition: Discharge Impression: Left hip pain This note was generated with [employer] dictation software. It may contain incorrect words, spelling, and punctuation that were not noted in review of the chart prior to signing ED Disposition - Plan for ED Patient: Chief Complaint: Lower Extremity Injury Referrals: Sebastien Stahl MD [Primary Care Provider] - What to do if you have Problems For any increased pain, shortness of breath, bleeding, nausea or vomiting, chest pain, or any unexpected problems, contact your Primary Care Provider. Call [facility] ([phone]) or report to the closest Emergency Room. Call 911 if necessary. 10/04/18 2200 <Electronically signed by Norma Paredes MD> Date Norma Paredes MD Cosigner Signature (If Indicated): Date CC: Sebastien Stahl MD DISCHARGE INSTRUCTION Observed: 10/04/2018 Status: F Source: [place] 5:12 PM [facility] Medical Records Department [address] [address] Discharge Instruction 10/04/18 1710 MR#: [id number] Acct: [id number] Name: DALE SARABIA Rep #: [id number] : 1955 63 From: Norma Paredes MD PCP: Sebastien Stahl MD Status: REG ER ED Disposition - Plan for ED Patient: Disposition: Home or Assisted Living Chief Complaint: Lower Extremity Injury Instructions: ED Sprain Hip Prescriptions: Hydrocodone Bitart/Apap 5-325 [[place] 5MG-325MG] 1 tablet PO Q6H PRN PRN 3 Days #10 tablet PRN Reason: Pain Referrals: Sebastien Stahl MD [Primary Care Provider] - Bakari Solis MD [STAFF PHYSICIAN] - What to do if you have Problems For any increased pain, shortness of breath, bleeding, nausea or vomiting, chest pain, or any unexpected problems, contact your Primary Care Provider. Call [facility] ([phone]) or report to the closest Emergency Room. Call 911 if necessary. 10/04/181711 <Electronically signed by Norma Paredes MD> Date Norma Paredes MD Cosigner Signature (If Indicated): Date CC: Sebastien Stahl MD HIP, UNI W/ PELVIS Observed: 10/04/2018 Status: F Source: [place] 2-3 VIEWS 3:17 PM [facility] Imaging Services [address] [address] HIP, UNI W/ Pelvis 2-3 Views MR#: [id number] Acct: [id number] Name: DALE SARABIA Rep #: [id number] : 1955 M 63 From: Gigi Wolf DO PCP: Sebastien Stahl MD Status: REG ER Study: HIP, UNI W/ Pelvis 2-3 Views Date of Exam: 10/04/18 Exam# [id number] Ordering Dr: Norma Paredes MD STUDY: X-RAY - LEFT HIP REASON FOR EXAM: Male, 63 years old. Left hip pain TECHNIQUE: 3 views of the hip. COMPARISON: 09/14/2018 FINDINGS: There are osteoarthritic changes of the femoral head with marginal osteophyte formation. There is osteoarthritic spur formation of the acetabular rim. There is moderate articular joint space narrowing. Normal visualized superior and inferior pubic rami and ischial tuberosities. There is no demonstrated hip fracture. RAD/HIP, UNI W/ Pelvis 2-3 Views IMPRESSION: No acute findings Electronically Signed: Gigi Wolf DO at 16:51 EST Tel , Service support , CC: Norma Paredes MD; Sebastien Stahl MD Structural Engineering Technician: Signed CBC W/DIFF, AUTOMATED Collected: 09/17/2018 Status: F Source: [place] 10:39 AM [facility] RE[facility] TYPE CODE TESTS RESULT OUT OF RANGE REFERENCE UNITS LAB L100.1000 4.4-11.0 K/mm3 Normal WBC 9.0 LAB L100.1200 4.6-6.2 M/mm3 High RBC 6.39 LAB L100.1300 13.0-16.5 g/dl Normal HGB 13.3 LAB L100.1400 40-54 % Normal HCT 46.1 LAB L100.1500 80-94 fL Low MCV 72.1 LAB L100.1600 27.0-32.0 pg Low MCH 20.8 LAB L100.1700 32-36 g/gl Low MCHC 28.9 LAB L100.1810 11.6-14.6 % High RDW CV 22.4 LAB L100.1820 35.1-43.9 fl High RDW SD 56.5 LAB L100.1900 150-450 K/mm3 Normal PLT 222 LAB L100.2000 6.2-12.0 fl Normal MPV 10.0 LAB L100.2100 47-70 % Normal NEUT% 69.6 LAB L100.2200 19-41 % Normal LY% 19.8 LAB L100.2300 0-10 % Normal MONO% 9.1 LAB L100.2400 0-5 % Normal EO% 0.9 LAB L100.2500 0-1 % Normal BASO% 0.4 LAB L100.2550 0.0-0.9 % Normal IM GRAN % 0.200 Result Comment: IG% - Immature Granulocytes (promyelocytes, myelocytes and metamyelocytes) > 1% indicates that a LEFT SHIFT is Present. LAB L100.2620 2.0-7.7 X10 3/uL Absolute Neut Normal 6.2 LAB L100.2720 0.83-4.51 X10 3/ul Absolute Lymph Normal 1.78 LAB L100.7300 ANISO Normal 1+ LAB L100.7600 HYPOCHROMASIA Normal 1+ Performed By: #### L100.0100 #### [facility] [address] [place], [address] HIP, UNI W/ PELVIS Observed: 09/14/2018 Status: F Source: [place] 2-3 VIEWS 1:26 PM [facility]IT[facility] Imaging Services [address] [place] [address] HIP, UNI W/ Pelvis 2-3 Views MR#: [id number] Acct: [id number] Name: DALE SARABIA Rep #: [id number] : 1955 M 63 From: Vipul Prieto MD PCP: Sebastien Stahl MD Status: REG CLI Study: HIP, UNI W/ Pelvis 2-3 Views Date of Exam: 09/14/18 Exam# [id number] Ordering Dr: Bakari Solis MD STUDY: X-RAY [...] CC: Bakari Solis MD; Sebastien Stahl MD Structural Engineering Technician: Signed PROGRESS Observed: 09/01/2018 Status: COMPLETED Source: [place] 11:20 AM [facility] [place] REPOSITORY HNO ID: [id number] Author: Moses Jordan Service: (none) Author Type: [...] to evaluation here. I reviewed CBCs from [facility]. Hgb=18.4 gm/dl 07/07. CT A/P in February [...] No jaundice or rash. No petechiae. NEUROLOGIC: absence management consultant II-XII are grossly intact. No focal motor [...] the care of his general practitioner and ground layer for management of his CAD and modifiable [...] DO CNOVSP Observed: 09/01/2018 Status: COMPLETED Source: [place] 11:10 AM [facility] REPOSITORY Visit (SP) Office (HEMAWS) DALE SARABIA ([id number]) 1955 M Date Time Provider Department 09/01/18 [...] to evaluation here. I reviewed CBCs from [facility]. Hgb=18.4 gm/dl 07/07. CT A/P in February [...] No jaundice or rash. No petechiae. NEUROLOGIC: absence management consultant II-XII are grossly intact. No focal motor [...] the care of his general practitioner and ground layer for management of his CAD and modifiable [...] Moses Jordan DO Referring Provider: MOSES JORDAN [[id number]] Allergies As of Date: 09/01/2018 Noted Allergy [...] [place] CBC AND DIFF [SQWCBCDF] Order #: [id number] STANDING FERRITIN BLD [SQFERR] Order #: [id number] STANDING apixaban (ELIQUIS) 5 mg tab(s)Take 1 [...] 08/31/2018 Status: F Source: [place] 10:38 AM [facility] RE[facility] TYPE CODE TESTS RESULT OUT OF REFERENCE UNITS RANGE LAB L503.6550 26-388 ng/mL Low FERRITIN 9 Performed By: #### L503.6550 #### [facility] [address] [place], [id number] CBC-COMPLETE BLOOD CNT Collected: 08/31/2018 Status: F Source: [place] NO DIFF 10:38 AM [facility] REPOSIT[facility] TYPE CODE TESTS RESULT OUT OF [...] performed Performed By: #### L100.0500, L100.4500 #### [facility] Laboratory [address] [place], [place], [id number] DIFFERENTIAL COMMENT Collected: 08/31/2018 Status: F Source: LEONID 10:38 AM [facility] TYPE CODE TESTS RESULT OUT OF RANGE REFERENCE UNITS LAB L100.4500 Normal SMEAR COMMENT COMMENT Result Comment: 2+ MICROCYTOSIS RARE POLYCHROMASIA Performed By: #### L100.0500, L100.4500 #### [facility] Laboratory [address] [place], [address] CBC-COMPLETE BLOOD CNT Collected: 08/03/2018 Status: F Source: LEONID NO DIFF 2:27 PM [facility] TYPE CODE TESTS RESULT OUT OF [...] 248 Performed By: #### L100.0500, L100.4500 #### [facility] Laboratory [address] [place], [address] DIFFERENTIAL COMMENT Collected: 08/03/2018 Status: F Source: LEONID 2:27 PM [facility] TYPE CODE TESTS RESULT OUT OF RANGE REFERENCE UNITS LAB L100.4500 Normal SMEAR COMMENT Result Comment: SLIDE SCANNED - 1+ ANISO, 1+ LARGE PLTS, 1+ HYPOCHROMIA. Performed By: #### L100.0500, L100.4500 #### [facility] Laboratory [address] [place], [address] FERRITIN Collected: 08/03/2018 Status: F Source: WILKINSON 2:27 PM [facility] TYPE CODE TESTS RESULT OUT OF REFERENCE UNITS RANGE LAB L503.6550 26-388 ng/mL Low FERRITIN 10 Performed By: #### L503.6550 #### [facility] Laboratory [address] [place], [place], [address] CBC-COMPLETE BLOOD CNT Collected: 07/03/2018 Status: F Source: LEONID NO DIFF 11:07 AM [facility] Order Comment: KACEY WANTS THE ALLERY [...] 191 Performed By: #### L100.0500, L100.4500 #### [facility] Laboratory [address] [place], [address] DIFFERENTIAL COMMENT Collected: 07/03/2018 Status: F Source: [place]INSON 11:07 AM [facility] Order Comment: KACEY WANTS THE ALLERY TESTING DEBBIE WANTS THE CBC FERRITIN TYPE CODE TESTS RESULT OUT OF RANGE REFERENCE UNITS LAB L100.4500 Normal SMEAR COMMENT COMMENT Result Comment: SLIDE SCANNED - 1+ TARGET CELLS, RARE RBC FRAGMENTS, 1+ LARGE PLTS. Performed By: #### L100.0500, L100.4500 #### [facility] Laboratory [address] [place], [place], [address] FERRITIN Collected: 07/03/2018 Status: F Source: [place]SON 11:07 AM [facility] Order Comment: KACEY WANTS THE ALLERY TESTING DEBBIE WANTS THE CBC FERRITIN TYPE CODE TESTS RESULT OUT OF REFERENCE UNITS RANGE LAB L503.6550 26-388 ng/mL Low FERRITIN 8 Performed By: #### L503.6550 #### [facility] [address] [place], [address] ALLERGEN, FOOD PROFILE Collected: 07/03/2018 Status: F Source: [place]SON 11:04 AM [facility] Order Comment: KACEY WANTS THE ALLERY [...] 07/03/2018 Status: F Source: LEONID 11:04 AM [facility] Order Comment: KACEY WANTS THE ALLERY [...] 07/03/2018 Status: F Source: LEONID 11:04 AM [facility] Order Comment: KACEY WANTS THE ALLERY TESTING DEBBIE WANTS THE CBC FERRITIN TYPE CODE TESTS RESULT OUT OF RANGE REFERENCE UNITS LAB L5530.1040 Class 0 kU/L Normal ONION <0.10 Result Comment: Performed at: [facility] [address] [id number] Wireless Network Engineer: Goyo Moreno MD, Phone: [phone] Performed By: #### L5500.0410, L5530.0589, L5530.1039, L5530.1339, L5530.1419, L5530.1589, L5530.1609 #### [facility] (refer to report for specific site) refer to report for address and phone number GAMA MCRAE Collected: 07/03/2018 Status: F Source: LEONID 11:04 AM [facility] Order Comment: KACEY WANTS THE ALLERY TESTING DEBBIE WANTS THE CBC FERRITIN TYPE CODE TESTS RESULT OUT OF RANGE REFERENCE UNITS LAB L5530.1340 Class 0 kU/L Normal <0.10 GAMA MCRAE Performed By: #### L5500.0410, L5530.0589, L5530.1039, L5530.1339, L5530.1419, L5530.1589, L5530.1609 #### [facility] (refer to report for specific site) refer to report for address and phone number SALMON Collected: 07/03/2018 Status: F Source: LEONID 11:04 AM [facility] Order Comment: KACEY WANTS THE ALLERY [...] 07/03/2018 Status: F Source: LEONID 11:04 AM [facility] Order Comment: KACEY WANTS THE ALLERY [...] 07/03/2018 Status: F Source: LEONID 11:04 AM [facility] Order Comment: KACEY WANTS THE ALLERY [...] 07/03/2018 Status: F Source: LEONID 11:04 AM [facility] Order Comment: KACEY WANTS THE ALLERY [...] Urine Normal <0.10 Result Comment: Performed at: - [address] [id number] Wireless Network Engineer: Goyo Moreno MD, Phone: [phone] LAB L5560.0050 Class 0 kU/L KIRILL, Normal [...] SORREL <0.10 LAB L5580.0360 Class 0 kU/L BARBADIAN Normal THISTLE <0.10 Performed By: #### L5500.0700 #### [facility] (refer to report for specific site) refer to report for address and phone number IMMUNOGLOBULIN E Collected: 07/03/2018 Status: F Source: LEONID 11:04 AM [facility] Order Comment: KACEY WANTS THE ALLERY TESTING DEBBIE WANTS THE CBC FERRITIN TYPE CODE TESTS RESULT OUT OF RANGE REFERENCE UNITS LAB L3200.1600 0-100 IU/mL Normal IMMUNO E < 2 Result Comment: Performed at: [facility] [address] [id number] Wireless Network Engineer: Goyo Moreno MD, Phone: [phone] Performed By: #### L3200.1600 #### [facility] (refer to report for specific site) refer to report for address and phone number BASIC METABOLIC Collected: 06/26/2018 Status: F Source: LEONID PROFILE (BMP) 10:44 AM [facility] Order Comment: Send Results To: PCP [...] GAP 8 Performed By: #### L500.2500 #### [facility] [address] [place], [address] 12 LEAD ELECTROCARDIOGRAM Observed: 06/24/2018 Status: F Source: LEONID 9:32 AM [facility] Cardiovascular Services [address] [place] [address] 12 Lead EKG 06/21/18 1503 MR#: [id number] Acct: [id number] Name: DALE SARABIA Rep #: [id number] : 1955 63 From: Rafael Solorio MD Attending Dr: Isiah Cannon MD Status: DIS IN Ordering Dr: Isiah Cannon MD Date: 06/21/18 Location: [facility] Sex: M C Admitted: 06/21/18 Test Reason [...] ECG Confirmed by RAFAEL SOLORIO MD ([id number]), editorial cartoonist RIMMA LAZARO ([id number]) on 06/24/2018 9:31:48 AM Referred By: TIFFANY Confirmed By:RAFAEL SOLORIO MD 06/24/18 0931 Date Rafael Solorio MD CC: Isiah Cannon MD; Sebastien Stahl MD Signed VENOUS DUPLEX LOWER Observed: 06/24/2018 Status: F Source: LEONID EXTREMITY 7:59 AM [facility] Cardiovascular Services [address] [place] [address] Venous Duplex US - Elia Extrem 06/22/18 1353 MR#: [id number] Acct: [id number] Name: DALE SARABIA Rep #: [id number] : 1955 63 From: Bryan Garcia MD Attending Dr: Isiah Cannon MD Status: DIS IN Ordering Dr: Isiah Cannon MD Date: 06/22/18 Location: [facility] Sex: M C Admitted: 06/21/18 Reason For [...] Physician: Sebastien Stahl Performed By: Celia Sheikh, RDCS, RVT 06/24/18 0759 Date Bryan Garcia MD CC: Isiah Cannon MD; Sebastien Stahl MD Date Dictated: 06/22/18 1353 Date Transcribed: 06/24/18 075 Structural Engineering Technician: Signed DISCHARGE SUMMARY Observed: 06/23/2018 Status: F Source: [place]SON 2:35 PM [facility] Medical Records Department [address] [address] Discharge Summary 06/23/18 1428 MR#: [id number] Acct: [id number] Name: DALE SARABIA Rep #: [id number] : 1955 63 From: Isiah Cannon MD PCP: Sebastien Stahl MD Status: DIS IN Y [facility] Dis[facility] Date and Diagnosis Date of Admission: [...] (Last Reviewed 06/19/18 @ 09:48 by Toma Morley NP-C) CLARK (dyspnea on exertion) (Chronic) Atherosclerotic heart disease of [place] coronary artery without angina pectoris (Chronic) PCI [...] Patient was being admitted in PCU on secured entrance monitor. Lower extremity venous Doppler was done [...] applicable Code Visit Inpatient E AND M: 04581 Disch Hosp 06/23/18 1435 <Electronically signed by Isiah Cannon MD> Date Isiah Cannon MD Cosigner Signature (if applicable): Date CC: Isiah Cannon MD; Sebastien Stahl MD Signed DISCHARGE INSTRUCTION Observed: 06/23/2018 Status: F Source: [place]SON 10:34 AM [facility] Medical Records Department [address] [address] Instructions for Home/Discharge Instructions 06/23/18 1032 MR#: [id number] Acct: [id number] Name: DALE SARABIA Rep #: [id number] : 1955 63 From: Isiah Cannon MD PCP: Sebastien Stahl MD Status: ADM IN - Discharge Diagnoses Current Active Problems: Current Active and Chronic Problems (Last Reviewed 06/19/18 @ 09:48 by Toma Morley, GRIP ASSEMBLER-C) Left pulmonary artery PE (Acute) You will [...] 06/23/2018 Status: F Source: LEONID 6:47 AM [facility] TYPE CODE TESTS RESULT OUT OF REFERENCE UNITS RANGE LAB L501.080 70-110 mg/dL High BEDSIDE GLU 160 Result Comment: MANAGEMENT OF PATIENT CARE PER NURSING PROTOCOL Performed By: #### L501.080 #### [facility] Point of Care [address] [place] [address] BASIC METABOLIC Collected: 06/23/2018 Status: F Source: LEONID PROFILE (BMP) 5:20 AM [facility] TYPE CODE TESTS RESULT OUT OF [...] GAP 7 Performed By: #### L500.2500 #### [facility] [address] [place], [place], [address] BEDSIDE GLUCOSE Collected: 06/22/2018 Status: F Source: LEONID 10:36 PM [facility] TYPE CODE TESTS RESULT OUT OF REFERENCE UNITS RANGE LAB L501.080 70-110 mg/dL High BEDSIDE GLU 155 Result Comment: MANAGEMENT OF PATIENT CARE PER NURSING PROTOCOL Performed By: #### L501.080 #### [facility] Point of Care [address] [place] [address] BEDSIDE GLUCOSE Collected: 06/22/2018 Status: F Source: LEONID 4:13 PM [facility] TYPE CODE TESTS RESULT OUT OF REFERENCE UNITS RANGE LAB L501.080 70-110 mg/dL High BEDSIDE GLU 173 Result Comment: MANAGEMENT OF PATIENT CARE PER NURSING PROTOCOL Performed By: #### L501.080 #### [facility] Point of Care [address] [place] [address] BEDSIDE GLUCOSE Collected: 06/22/2018 Status: F Source: LEONID 11:01 AM [facility] TYPE CODE TESTS RESULT OUT OF REFERENCE UNITS RANGE LAB L501.080 70-110 mg/dL High BEDSIDE GLU 208 Result Comment: MANAGEMENT OF PATIENT CARE PER NURSING PROTOCOL Performed By: #### L501.080 #### [facility] Point of Care [address] [place] [address] PARTIAL THROMBOPLAST Collected: 06/22/2018 Status: F Source: LEONID TIME 10:00 AM [facility] TYPE CODE TESTS RESULT OUT OF REFERENCE UNITS RANGE LAB L300.4310 24.1-36.2 Seconds High PTT 58.4 Performed By: #### L300.4310 #### [facility] [address] [place], [address] BEDSIDE GLUCOSE Collected: 06/22/2018 Status: F Source: LEONID 6:52 AM [facility] TYPE CODE TESTS RESULT OUT OF REFERENCE UNITS RANGE LAB L501.080 70-110 mg/dL High BEDSIDE GLU 162 Result Comment: MANAGEMENT OF PATIENT CARE PER NURSING PROTOCOL Performed By: #### L501.080 #### [facility] Point of Care [address] [place] [address] BASIC METABOLIC Collected: 06/22/2018 Status: F Source: LEONID PROFILE (BMP) 5:20 AM [facility] TYPE CODE TESTS RESULT OUT OF [...] GAP 10 Performed By: #### L500.2500 #### [facility] [address] [place], [address] CBC-COMPLETE BLOOD CNT Collected: 06/22/2018 Status: F Source: LEONID NO DIFF 5:20 AM [facility] TYPE CODE TESTS RESULT OUT OF [...] 203 Performed By: #### L100.0500, L100.4500 #### [facility] [address] [place], [address] DIFFERENTIAL COMMENT Collected: 06/22/2018 Status: F Source: LEONID 5:20 AM [facility] TYPE CODE TESTS RESULT OUT OF RANGE REFERENCE UNITS LAB L100.4500 Normal SMEAR COMMENT SCAN Result Comment: LARGE PLATELETS OBSERVED. HYPOCHROMASIA 1+ MICROCYTOSIS 1+ POLYCHROMASIA 1+ Performed By: #### L100.0500, L100.4500 #### [facility] [address] [place], [address] HEMOGLOBIN A1C Collected: 06/22/2018 Status: F Source: LEONID 5:20 AM [facility] TYPE CODE TESTS RESULT OUT OF RANGE REFERENCE UNITS LAB L501.9985 4.2-6.3 % High HGB A1C 6.9 Performed By: #### L501.9985 #### [facility] [address] [place], [address] BNP,B-TYPE NATRIURETIC Collected: 06/22/2018 Status: F Source: LEONID PEPTIDE 5:20 AM [facility] TYPE CODE TESTS RESULT OUT OF RANGE REFERENCE UNITS LAB L503.6620 0-100 pg/mL Normal B-TYPE 11.7 BRIE PEP Performed By: #### L503.6620 #### [facility] [address] [place], [address] PARTIAL THROMBOPLAST Collected: 06/22/2018 Status: F Source: LEONID TIME 2:00 AM [facility] Order Comment: Comments: On IV heparin drip TYPE CODE TESTS RESULT OUT OF REFERENCE UNITS RANGE LAB L300.4310 24.1-36.2 Seconds High alert PTT 102.5 Result Comment: CRITICAL VALUE VERIFIED. CALLED TO BRAULIO KAPOOR 06/22/18 Marcus Jordan. RESULTS READ BACK BY SAME . Performed By: #### L300.4310 #### [facility] [address] [place], [address] TROPONIN-I Collected: 06/22/2018 Status: F Source: WILKINSON 2:00 AM [facility] Order Comment: 'TROP' Serial specimen #1, #2 or #3: 2 TYPE CODE TESTS RESULT OUT OF RANGE REFERENCE UNITS LAB L501.4010 <0.045 ng/mL Normal < 0.015 TROPONIN-I Result Comment: TROPONIN-I EXPECTED VALUES <0.045 Negative 0.045 - 0.590 Consistent with Cardiac Damage > OR = 0.600 Critical Value Not every elevated troponin is indicative of [place]. These values should be used with clinical judgement in examining the patient's clinical picture for diagnosis. To establish a diagnosis of [place] versus myocardial injury, there must be a demonstrated rise and/or fall in the troponin values, in addition to ischemic symptoms, EKG changes, new regional wall motion abnormality, and/or angiographical evidence. PLEASE NOTE: REFERENCE RANGES EDITED 18 Performed By: #### L501.4010 #### [facility] [address] [place], [address] BEDSIDE GLUCOSE Collected: 06/21/2018 Status: F Source: [place] 10:57 PM [facility] TYPE CODE TESTS RESULT OUT OF REFERENCE UNITS RANGE LAB L501.080 70-110 mg/dL High BEDSIDE GLU 219 Result Comment: MANAGEMENT OF PATIENT CARE PER NURSING PROTOCOL Performed By: #### L501.080 #### [facility] Point of Care [address] [place] [address] TROPONIN-I Collected: 06/21/2018 Status: F Source: [place] 8:30 PM [facility] Order Comment: 'TROP' Serial specimen #1, #2 or #3: 1 TYPE CODE TESTS RESULT OUT OF RANGE REFERENCE UNITS LAB L501.4010 <0.045 ng/mL Normal 0.016 TROPONIN-I Result Comment: TROPONIN-I EXPECTED VALUES <0.045 Negative 0.045 - 0.590 Consistent with Cardiac Damage > OR = 0.600 Critical Value Not every elevated troponin is indicative of [place]. These values should be used with clinical judgement in examining the patient's clinical picture for diagnosis. To establish a diagnosis of [place] versus myocardial injury, there must be a demonstrated rise and/or fall in the troponin values, in addition to ischemic symptoms, EKG changes, new regional wall motion abnormality, and/or angiographical evidence. PLEASE NOTE: REFERENCE RANGES EDITED 18 Performed By: #### L501.4010 #### [facility] [address] [place], [address] HISTORY AND PHYSICAL Observed: 06/21/2018 Status: F Source: [place]SON EXAM 6:59 PM [facility] Medical Records Department [address] [place] [address] History and Physical 06/21/18 1836 MR#: [id number] Acct: [id number] Name: DALE SARABIA Rep #: [id number] : 1955 63 From: Isiah Cannon MD [...] Status: Chronic (4) Atherosclerotic heart disease of [place] coronary artery without angina pectoris Status: Chronic [...] Reviewed 06/19/18 @ 09:48 by Toma Morley, GRIP ASSEMBLER-C) CLARK (dyspnea on exertion) (Chronic) Atherosclerotic heart disease of [place] coronary artery without angina pectoris (Chronic) PCI [...] Reviewed 06/19/18 @ 09:48 by Toma Morley, GRIP ASSEMBLER-C) Atherosclerotic heart disease of [place] coronary artery without angina pectoris (Chronic) I25.10 [...] F32.9 Osteoarthritis, knee M17.10 Sciatica M54.30 Other shelter (current) 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 (Resolved) Z79.899 Allergies theophylline Allergy (Verified 06/16/18 09:39) Unknown Home Medications: Ambulatory Orders Medication Instructions Recorded Aspirin [Aspirin, Baby] 81 mg PO DAILY@0800 03/17/16 Tamsulosin HCl [Flomax] 0.4 mg PO DAILY 03/17/16 Surgical History: Surgical History (Last Reviewed 06/19/18 @ 09:48 by Toma Morley, GRIP ASSEMBLER-C) History of coronary artery stent placement (Resolved) Onset Date: 05/24/11 Z95.5 PCI to proximal LAD with overlapping 3.0 x 28 mm and 3.5 x 12 mm Vision bare metal stents w/ POBA ostial D1 05/24/2011 @ [facility] Status post right partial nephrectomy (Chronic) H/O lithotripsy Z98.890 right 2010 History of tonsillectomy Z90.89 L eye surgery partial nephrectomy for renal cell cancer 07/2011 Surgical History: - - Cardiac stents him a right partial nephrectomy both in 2010 Psychiatric History: No pertinent psych hx Smoking Status: Former smoker - Quit in 1980s - *Family History Maternal Family History: Family History (Last Reviewed 06/19/18 @ 09:48 by RBYAN Brown) Mother CAD (coronary artery disease) History [...] placement (Resolved 05/24/11) Influenza A (Resolved) Other shelter (current) 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 (Resolved) PNA (pneumonia) (Resolved) [...] Patient is being admitted in PCU on secured entrance monitor. As the kidney function improves, patient [...] 70.2 H, Lymph % (Auto) 15.5 L, [place] % (Auto) 7.1, Eos % (Auto) 6.2 [...] base. Code Visit Inpatient E AND M: 09634 Init Hosp L3 06/21/18 3839 <Electronically signed by Isiah Cannon MD> Date Isiah Cannon MD Cosigner Signature: Date (if applicable) CC: Isiah Cannon MD; Sebastien Stahl MD Signed EMERGENCY DEPARTMENT Observed: 06/21/2018 Status: F Source: [place]SON SUMMARY 6:38 PM [facility] Medical Records Department [address] [place] [address] Emergency Department Summary 06/21/18 1835 MR#: [id number] Acct: [id number] Name: DALE SARABIA Rep #: [id number] : 1955 63 From: Ronnie Riley MD [...] Pulmonary embolism This note was generated with [employer] dictation software. It may contain incorrect words, [...] problems, contact your Primary Care Provider. Call [facility] ([phone]) or report to the closest Emergency Room. Call 911 if necessary. 06/21/18 2897 <Electronically signed by Ronnie Riley MD> Date Ronnie Riley MD Cosigner Signature (If Indicated): Date CC: Sebastien Stahl MD PARTIAL THROMBOPLAST Collected: 06/21/2018 Status: F Source: LEONID TIME 6:03 PM [facility] TYPE CODE TESTS RESULT OUT OF RANGE REFERENCE UNITS LAB L300.4310 24.1-36.2 Seconds Normal PTT 28.6 Performed By: #### L300.4310 #### [facility] [address] [place], [address] CTA ABDOMEN W/WO Observed: 06/21/2018 Status: F Source: LEONID CONTRAST 3:40 PM [facility] Imaging Services [address] [place] [address] CTA Abdomen W/WO Contrast MR#: [id number] Acct: [id number] Name: DALE SARABIA Rep #: [id number] : 1955 63 From: Claudette Mendoza MD PCP: eSbastien Stahl MD Status: ADM IN Study: CTA Abdomen W/WO Contrast Date of Exam: 06/21/18 Exam# [id number] Ordering Dr: Ronnie Riley MD STUDY: CTA [...] Negative for significant arterial stenosis in the wtfxj-za-dyct. N.B. : The above information has been [...] CC: Ronnie Riley MD; Sebastien Stahl MD Structural Engineering Technician: Signed CTA CHEST W/WO Observed: 06/21/2018 Status: F Source: LEONID CONTRAST 3:36 PM [facility] Imaging Services [address] [place] [address] CTA Chest W/WO Contrast MR#: [id number] Acct: [id number] Name: DALE SARABIA Rep #: [id number] : 1955 M 63 From: Claudette Mendoza MD PCP: Sebastien Stahl MD Status: REG Study: CTA Chest W/WO Contrast Date of Exam: 06/21/18 Exam# [id number] Ordering Dr: Ronnie Riley MD STUDY: CTA [...] Negative for significant arterial stenosis in the afrmq-oe-jadi. N.B. : The above information has been [...] CC: Ronnie Riley MD; Sebastien Stahl MD Structural Engineering Technician: Signed CHEST 1 VIEW Observed: 06/21/2018 Status: F Source: WILKINSON (PORTABLE) 3:29 PM [facility] Imaging Services [address] [place] [address] Chest 1 View (Portable) MR#: [id number] Acct: [id number] Name: DALE SARABIA Rep #: [id number] : 1955 M 63 From: Claudette Mendoza MD PCP: Sebastien Stahl MD Status: PRE ER Study: Chest 1 View (Portable) Date of Exam: 06/21/18 Exam# [id number] Ordering Dr: Ronnie Riley MD STUDY: X-RAY [...] CC: Ronnie Riley MD; Sebastien Stahl MD Structural Engineering Technician: Signed CBC W/DIFF, AUTOMATED Collected: 06/21/2018 Status: F Source: LEONID 3:10 PM [facility] TYPE CODE TESTS RESULT OUT OF [...] Normal RARE Performed By: #### L100.0100 #### [facility] [address] [facility] [place], [place], [address] PROTHROMBIN TIME W/INR Collected: 06/21/2018 Status: F Source: [place] 3:10 PM [facility] TYPE CODE TESTS RESULT OUT OF RANGE REFERENCE UNITS LAB L300.4150 11.7-14.9 SECONDS Normal PROTIME 13.8 LAB L300.4200 Normal INR 1.1 Performed By: #### L300.3900 #### [facility] [address] [place], [address] BASIC METABOLIC Collected: 06/21/2018 Status: F Source: [place] PROFILE (BMP) 3:10 PM [facility] TYPE CODE TESTS RESULT OUT OF [...] 8 Performed By: #### L500.2500, L501.4010 #### [facility] [address] [facility] [place], [place], [address] TROPONIN-I Collected: 06/21/2018 Status: F Source: [place] 3:10 PM [facility] TYPE CODE TESTS RESULT OUT OF RANGE REFERENCE UNITS LAB L501.4010 <0.045 ng/mL Normal 0.019 TROPONIN-I Result Comment: TROPONIN-I EXPECTED VALUES <0.045 Negative 0.045 - 0.590 Consistent with Cardiac Damage > OR = 0.600 Critical Value Not every elevated troponin is indicative of [place]. These values should be used with clinical judgement in examining the patient's clinical picture for diagnosis. To establish a diagnosis of [place] versus myocardial injury, there must be a demonstrated rise and/or fall in the troponin values, in addition to ischemic symptoms, EKG changes, new regional wall motion abnormality, and/or angiographical evidence. PLEASE NOTE: REFERENCE RANGES EDITED 18 Performed By: #### L500.2500, L501.4010 #### [facility] [address] [place], [address] BNP,B-TYPE NATRIURETIC Collected: 06/21/2018 Status: F Source: [place] PEPTIDE 3:10 PM [facility] TYPE CODE TESTS RESULT OUT OF RANGE REFERENCE UNITS LAB L503.6620 0-100 pg/mL Normal B-TYPE 5.8 BRIE PEP Performed By: #### L503.6620 #### [facility] [address] [place], [address] PULMONARY VISIT REPORT Observed: 06/19/2018 Status: F Source: [place] 10:27 AM [facility] [place] [address] [place] [address] OFFICE VISIT Date of Service: 06/18/18 MR#: [id number] Acct: [id number] Name: DALE SARABIA Rep #: [id number] : 1955 Provider: Toma Morley Age/Sex: 63/M [place] [facility] Status: Signed Assessment AND Plan 1. Chronic [...] th or wheezing Follow Up 2 Weeks ([facility]) HPI HPI Comments Details: [...] lb Intake Visit Reasons: 1 M [place] [facility] [place] Maru Accompanied by: Allergies theophylline Allergy [...] PFSH Medical History Atherosclerotic heart disease of [place] coronary artery without angina pectoris (Chronic) Palpitations [...] (Chronic) Osteoarthritis, knee (Chronic) Sciatica (Chronic) Other shelter (current) 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 (Resolved) Surgical History History [...] CARDIOLOGY VISIT Observed: 06/16/2018 Status: F Source: [place] REPORT 10:04 AM [facility] [place] [facility] [address] [place] [address] OFFICE VISIT Date of Service: 06/16/18 MR#: [id number] Acct: [id number] Name: DALE SARABIA Rep #: [id number] : 1955 Provider: Rafael Solorio MD Age/Sex: 63/M Location[place] [facility] Status: Signed HPI HPI Chief Complaint: Shortness [...] to be visibly dyspneic though. 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) Coding Level of Care Code Off vis,est,level [...] Observed: 06/16/2018 Status: F Source: [place] BY [facility] 10:03 AM [facility] [address] [place] [place] [address] 12 Lead EKG performed by [facility] 06/16/18 1002 MR#: [id number] Acct: [id number] Name: DALE SARABIA Rep #: [id number] : 1955 63 From: Rafael Solorio MD Attending Dr: Rafael Solorio MD Status: DEP AMB Ordering Dr: Rafael Solorio MD Date: 06/16/18 Location: [facility] Sex: M C Admitted: [facility]12 Lead EKG performed by [facility] ECG Report Interpretation Sinus Tachycardia -Left axis -anterior fascicular block. Low voltage with rightward P-axis and rotation -possible pulmonary disease. ABNORMAL Electronically signed on 09/02/2018 at 16:36 by Rafael Soloriowood Software Version [id number] 09/02/18 1640 Date Rafael Solorio MD CC: Sebastien Stahl MD Date Dictated: 06/16/18 1002 Date Transcribed: 06/16/18 1002 Structural Engineering Technician: CO Signed CBC-COMPLETE BLOOD CNT Collected: 06/10/2018 Status: F Source: [place] NO DIFF 10:41 AM [facility] TYPE CODE TESTS RESULT OUT OF [...] 200 Performed By: #### L100.0500, L100.4500 #### [facility] [address] [place], [place], [address] DIFFERENTIAL COMMENT Collected: 06/10/2018 Status: F Source: [place] 10:41 AM [facility] TYPE CODE TESTS RESULT OUT OF RANGE REFERENCE UNITS LAB L100.4500 Normal SMEAR COMMENT COMMENT Result Comment: SLIDE SCANNED - 1+ ANISO, 1+ LARGE PLTS. Performed By: #### L100.0500, L100.4500 #### [facility] [address] [place], [place], [address] THYROID STIM HORMONE Collected: 06/10/2018 Status: F Source: [place] (TSH) 10:41 AM [facility] Order Comment: Has Patient had X-rays with Contrast this admission? N Is Patient on Heparin? N TYPE CODE TESTS RESULT OUT OF RANGE REFERENCE UNITS LAB L501.9520 0.358-3.74 uIU/mL Normal TSH 0.70 Performed By: #### L501.9520, L503.6550, L506.0400 #### [facility] [address] [place], [place], [address] FERRITIN Collected: 06/10/2018 Status: F Source: [place] 10:41 AM [facility] Order Comment: Has Patient had X-rays with Contrast this admission? N Is Patient on Heparin? N TYPE CODE TESTS RESULT OUT OF REFERENCE UNITS RANGE LAB L503.6550 26-388 ng/mL Low FERRITIN 10 Performed By: #### L501.9520, L503.6550, L506.0400 #### [facility] [address] [place], [address] T4 FREE DIRECT Collected: 06/10/2018 Status: F Source: [place] 10:41 AM [facility] Order Comment: Has Patient had X-rays with Contrast this admission? N Is Patient on Heparin? N TYPE CODE TESTS RESULT OUT OF RANGE REFERENCE UNITS LAB L506.0400 0.76-1.46 ng/dL Normal T4 FREE 1.18 DIRECT Performed By: #### L501.9520, L503.6550, L506.0400 #### [facility] [address] [place], [address] 6 MINUTE WALK TEST Observed: 06/02/2018 Status: F Source: [place] 12:23 PM [facility] Pulmonary Services/Neurology [address] [place] [address] MR#: [id number] Acct: [id number] Name: DALE SARABIA Rep #: [id number] : 1955 63 From: Morales Storey MD Referring Dr: Mino Ramos D.O. Date: Ordering Dr: Sex: M C Location: PSN PSN 6 Minute Walk Test - 6 Minute Walk Test 6 Minute Walk Test: 6 Minute Walk Test PSN:6-Minute Walk Test Start: 06/02/18 08:41 Freq: Status: Active Protocol: RESP.6MINW Document 06/02/18 08:42 JUNAID (Rec: 06/02/18 08:47 JOSE FA [id number]) 6 Minute Walk Test Date Performed 06/02/18 [...] CC: Date Dictated: 06/02/18 1222 Date Transcribed: 06/02/18 1222 Structural Engineering Technician: Morales Storey Signed URINALYSIS, EMPLOYEE Collected: 05/27/2018 Status: F Source: [place] 10:18 AM [facility] TYPE CODE TESTS RESULT OUT OF [...] ESTERASE Negative Performed By: #### L400.0100 #### [facility] [address] [place], [place], [address] CBC, EMPLOYEE Collected: 05/27/2018 Status: F Source: [place] 10:18 AM [facility] TYPE CODE TESTS RESULT OUT OF [...] Lymph 1.79 Performed By: #### L100.0200 #### [facility] [address] [place], [place], [address] EMPLOYEE PROFILE Collected: 05/27/2018 Status: F Source: [place] 10:18 AM [facility] TYPE CODE TESTS RESULT OUT OF [...] LDH 174 Performed By: #### L500.2900 #### [facility] [address] [place], [address] NICOTINE URINE DRUG Collected: 05/27/2018 Status: F Source: [place] SCREEN 10:18 AM [facility] TYPE CODE TESTS RESULT OUT OF [...] first-stage metabolite of Nicotine. Performed By: #### L505.6279 #### [facility] [address] [place], [address] HEP B SURFACE Collected: 05/27/2018 Status: F Source: [place] ANTIBODIES EMP 10:18 AM [facility] Order Comment: SEND RESULTS TO [facility] [id number] TYPE CODE TESTS RESULT OUT OF RANGE REFERENCE UNITS LAB L3100.0537 . Normal Hep B Reactive Del AB Result Comment: Non Reactive: Inconsistent with immunity, less than 10 mIU/mL Reactive: Consistent with immunity, greater than 9.9 mIU/mL Performed at: - [facility] [address] [id number] Wireless Network Engineer: Andrew Gorman PhD, Phone: [phone] Performed By: #### L3100.0537 #### [facility] (refer to report for specific site) refer to report for address and phone number PULMONARY FUNCTION Observed: 05/21/2018 Status: F Source: [place] REPORT COMP 11:24 AM [facility] Pulmonary Services/Neurology [address] [address] MR#: [id number] Acct: [id number] Name: DALE SARABIA Rep #: [id number] : 1955 63 From: Morales Storey MD Referring Dr: Mino Ramos D.O. Status: REG CLI Ordering Dr: Date: Location: [facility] Sex: M C COMPLETE PULMONARY FUNCTION TEST INTERPRETATION Brief HPI: Patient is a 63 year old male, currently under the care of Dr. Ramos, who presents to [facility] for complete pulmonary function tests secondary [...] Ramos D.O.; Sebastien Stahl MD Date Dictated: 05/21/181120 Date Transcribed: 05/21/181120 Structural Engineering Technician: JOHN Signed PULMONARY VISIT REPORT Observed: 05/19/2018 Status: F Source: [place] 2:43 PM [facility] [place] [address] [place] [address] OFFICE VISIT Date of Service: 05/19/18 MR#: [id number] Acct: [id number] Name: DALE SARABIA Rep #: [id number] : 1955 Provider: Toma Morley Age/Sex: 63/M Location[place] [facility] Status: Signed Assessment AND Plan 1. Chronic [...] compliance with Lasix as prescribed by his ground layer. Follow-up in 2 weeks. Plan Detail Follow Up 3 Weeks ([facility]) HPI Acute: Chief Complaint: [...] special occasion and he was at a constitution party. He is also experiencing wheezing and chest [...] PFSH Medical History Atherosclerotic heart disease of [place] coronary artery without angina pectoris (Chronic) Palpitations (Chronic) Other shelter (current) 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 (Chronic) History of renal [...] F Source: [place] NO DIFF 10:21 AM [facility] TYPE CODE TESTS RESULT OUT OF [...] 204 Performed By: #### L100.0500, L100.4500 #### [facility] [address] [place], [address] DIFFERENTIAL COMMENT Collected: 05/13/2018 Status: F Source: [place] 10:21 AM [facility] TYPE CODE TESTS RESULT OUT OF RANGE REFERENCE UNITS LAB L100.4500 Normal SMEAR COMMENT S Result Comment: ANISOCYTOSIS 2+ OVALOCYTES 1+ Performed By: #### L100.0500, L100.4500 #### [facility] [address] [place], [address] FERRITIN Collected: 05/13/2018 Status: F Source: [place] 10:21 AM [facility] TYPE CODE TESTS RESULT OUT OF REFERENCE UNITS RANGE LAB L503.6550 26-388 ng/mL Low FERRITIN 10 Performed By: #### L503.6550 #### [facility] [address] [place], [address] PROGRESS Observed: 04/14/2018 Status: COMPLETED Source: [place] 1:00 PM [facility] REPOSITORY HNO ID: [id number] Author: Renee Bah Nv Service: (none) Author Type: (none) Type: Progress [...] CT; Exam(s) Completed: Kidney SIGNED BY: Renee Armstrong April 14, 2018 1:[address] KIDNEY WO/W Observed: 04/14/2018 Status: F Source: [facility] 12:05 PM [facility] [place] REPOSITORY * * *Final Report* * * DATE OF EXAM: Apr 14 2018 12:05PM [facility] 0546 - CT KIDNEY WO/W IVCON / [...] IN THE ABDOMEN. LEFT NEPHROLITHIASIS. NO HYDRONEPHROSIS. Structural Engineering Technician: HEATHER Transcribe Date/Time: Apr 15 2018 10:15A Dictated by : ISAAK RICHARDS MD This examination was interpreted and the report reviewed and electronically signed by: ISAAK RICHARDS MD on Apr 15 2018 5:38PM EST [id number] Collected: 04/14/2018 Status: F Source: [place] 9:55 AM [facility] REPOSITORY TYPE CODE TESTS RESULT OUT OF REFERENCE UNITS RANGE LAB FERR 30.3-565.7 ng/mL Low Ferritin 21.5 Performed By: #### FERR #### [facility] [address] [place], [place] [address] LE[place] CBC Collected: 04/14/2018 Status: F Source: [place] 9:50 AM [facility] REPOSITORY TYPE CODE TESTS RESULT OUT OF REFERENCE UNITS RANGE LAB WWBC 3.70-11.00 k/uL [place] WBC 8.08 LAB WRBC 4.20-6.00 m/uL [place] High RBC 6.28 LAB WHGB 13.0-17.0 g/dL Low [place] Hemoglobin 11.7 LAB WHCT 39.0-51.0 % [place] Hematocrit 41.3 LAB WMCV 80.0-100.0 fL Low [place] MCV 65.8 LAB WMCH 26.0-34.0 pg Low [place] MCH 18.6 LAB WMCHC 30.5-36.0 g/dL Low [place] MCHC 28.3 LAB WRDW 11.5-15.0 % [place] High RDW 22.0 LAB WPLT 150-400 k/uL [place] Platelet Cnt 248 LAB WMPV 9.0-12.7 fL [place] MPV 10.5 Result Comment: Test performed at: [facility], [address] [place] [address] Rd[address] [place] [address]. [place] ISTAT BMP Collected: 04/14/2018 Status: F Source: [place] 9:50 AM [facility] REPOSITORY TYPE CODE TESTS RESULT OUT OF [...] LEAD ELECTROCARDIOGRAM Observed: 04/02/2018 Status: F Source: [place] 3:32 PM [facility] Cardiovascular Services [facility] [address] [address] 12 Lead EKG 03/27/18 1639 MR#: [id number] Acct: [id number] Name: DALE SARABIA Rep #: [id number] : 1955 63 From: Rafael Solorio MD Attending Dr: Ana Medina Status: DIS CHLOE Ordering Dr: Phuc Griffin MD Date: 03/27/18 Location: [facility] Sex: M C Admitted: 03/27/18 Test Reason [...] ECG Confirmed by RAFAEL SOLORIO MD ([id number]), editorial cartoonist RIMMA LAZARO ([id number]) on 04/02/2018 3:32:45 PM Referred By: LENIN Confirmed By:RAFAEL SOLORIO MD 04/02/18 1532 Date Rafael Solorio MD CC: Ana Medina; Phuc Griffin MD; Sebastien Stahl MD Signed DISCHARGE SUMMARY Observed: 03/28/2018 Status: F Source: [place] 4:25 PM [facility] Medical Records Department [address] [address] Discharge Summary 03/28/18 1617 MR#: [id number] Acct: [id number] Name: DALE SARABIA Rep #: [id number] : 1955 63 From: Ana Medina MD PCP: Sebastien Stahl MD Status: DIS CHLOE Y Location: [place] [address] Discharge Date and Diagnosis Date of Admission: 03/27/18 Date of Discharge: 03/28/18 - Primary Discharge Diagnosis #1 vertigo/dizziness. #2 acute kidney injury. - Secondary Discharge Diagnosis Chronic Problems (Last Reviewed 01/06/18 @ 10:31 by Toma Morley NP-C) CAD (coronary artery disease) (Chronic) CLARK (dyspnea on exertion) (Chronic) Atherosclerotic heart disease of [place] coronary artery without angina pectoris (Chronic) 05/22/11, PTCA/stent X [address] Prabhu Heath @ [facility] Palpitations (Chronic) Postsurgical percutaneous transluminal coronary angioplasty (PTCA) status (Chronic) 05/22/11, PTCA/stent X 2 to LAD Other oysterman (current) 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 (Chronic) History of renal [...] applicable Code Visit OBSV E AND M: 60755 Observation care discharge 03/28/18 5385 <Electronically signed by Ana Medina MD> Date Ana Medina MD Cosigner Signature (if applicable): Date CC: Ana Medina; Sebastien Stahl MD Signed DISCHARGE INSTRUCTION Observed: 03/28/2018 Status: F Source: [place] 12:15 PM [facility] Medical Records Department [address] [place] [address] Instructions for Home/Discharge Instructions 03/28/18 1214 MR#: [id number] Acct: [id number] Name: DALE SARABIA Rep #: [id number] : 1955 63 From: Ana Medina MD [...] 03/28/2018 Status: F Source: [place] 11:47 AM [facility] TYPE CODE TESTS RESULT OUT OF REFERENCE UNITS RANGE LAB L501.080 70-110 mg/dL High BEDSIDE GLU 181 Result Comment: Dr Prince Followed Insulin Given MANAGEMENT OF PATIENT CARE PER NURSING PROTOCOL Performed By: #### L501.080 #### [facility] [address] [place] [address] ECHO, COMPLETE W/ Observed: 03/28/2018 Status: F Source: [place] CONTRAST 11:42 AM [facility] Cardiovascular Services [address] [place] [address] Echo Complete W/ Contrast 03/28/18 0902 MR#: [id number] Acct: [id number] Name: DALE SRAABIA Rep #: [id number] : 1955 63 From: Rafael Solorio MD Attending Dr: Ana Medina Status: ADM CHLOE Ordering Dr: Bg Estrella MD Date: 03/27/18 Location: [facility] Sex: M C Admitted: 03/27/18 Reason For [...] Date Dictated: 03/28/18901 Date Transcribed: 03/28/18 1141 Structural Engineering Technician: Signed CBC-COMPLETE BLOOD CNT Collected: 03/28/2018 Status: F Source: [place] NO DIFF 6:45 AM [facility] TYPE CODE TESTS RESULT OUT OF [...] 10.2 Performed By: #### L100.0500, L100.4500 #### [facility] [address] [place], [address] DIFFERENTIAL COMMENT Collected: 03/28/2018 Status: F Source: [place] 6:45 AM [facility] TYPE CODE TESTS RESULT OUT OF RANGE REFERENCE UNITS LAB L100.4500 Normal SMEAR COMMENT Result Comment: MICROCYTOSIS 2+ OVALOCYTES 1+ Performed By: #### L100.0500, L100.4500 #### [facility] [address] [place], [address] BASIC METABOLIC Collected: 03/28/2018 Status: F Source: [place] PROFILE (BMP) 6:45 AM [facility] TYPE CODE TESTS RESULT OUT OF [...] 8 Performed By: #### L500.2500, L501.5200 #### [facility] [address] [place], [address] MAGNESIUM Collected: 03/28/2018 Status: F Source: [place] 6:45 AM [facility] TYPE CODE TESTS RESULT OUT OF RANGE REFERENCE UNITS LAB L501.5200 1.6-2.6 mg/dL Normal MG 2.1 Performed By: #### L500.2500, L501.5200 #### [facility] [address] [place], [address] HISTORY AND PHYSICAL Observed: 03/27/2018 Status: F Source: [place] EXAM 8:46 PM 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 Around 230 this afternoon he developed [...] Reviewed 01/06/18 @ 10:31 by BRYAN Brown) CAD (coronary artery disease) (Chronic) CLRAK (dyspnea on exertion) (Chronic) Atherosclerotic heart disease of [place] coronary artery without angina pectoris (Chronic) 05/22/11, PTCA/stent X [address] Prabhu Heath @ [facility] Palpitations (Chronic) Postsurgical percutaneous transluminal coronary angioplasty (PTCA) status (Chronic) 05/22/11, PTCA/stent X 2 to LAD Other oysterman (current) 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 (Chronic) History of renal cell cancer (Chronic) Benign prostatic hypertrophy (Chronic) Type II diabetes mellitus (Chronic) Hyperlipidemia (Chronic) Obesity (Chronic) COPD (chronic obstructive pulmonary disease) (Chronic) Obstructive sleep apnea (Chronic) CPAP 13 cm of water Hypothyroidism (Chronic) Status post right partial nephrectomy (Chronic) Hypertension (Chronic) Medical History: Medical History (Last Reviewed 01/06/18 @ 10:31 by BRYAN Brown) Atherosclerotic heart disease of [place] coronary artery without angina pectoris (Chronic) I25.10 05/22/11, PTCA/stent X [address] Prabhu Heath @ [facility] Palpitations (Chronic) R00.2 Other shelter (current) 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 (Chronic) Z79.899 History of [...] partial nephrectomy (Chronic) H/O lithotripsy Z98.890 right 2010 History of tonsillectomy Z90.89 L eye surgery [...] History (Last Reviewed 01/06/18 @ 10:31 by MARYBEL BrownC) Mother CAD (coronary artery disease) History Items: [...] Lovenox. Code Visit OBSV E AND M: 82390 Initial observation care L3 03/27/182045 <Electronically signed by Bg Estrella MD> Date Bg Estrella MD Cosigner Signature: Date (if applicable) CC: Bg Estrella MD; Sebastien Stahl MD Signed TROPONIN-I Collected: 03/27/2018 Status: F Source: [place] 8:38 PM [facility] Order Comment: 'TROP' Serial specimen #1, #2 or #3: 2 TYPE CODE TESTS RESULT OUT OF RANGE REFERENCE UNITS LAB L501.4010 <0.045 ng/mL Normal < 0.015 TROPONIN-I Result Comment: TROPONIN-I EXPECTED VALUES <0.045 Negative 0.045 - 0.590 Consistent with Cardiac Damage > OR = 0.600 Critical Value Not every elevated troponin is indicative of [place]. These values should be used with clinical judgement in examining the patient's clinical picture for diagnosis. To establish a diagnosis of [place] versus myocardial injury, there must be a demonstrated rise and/or fall in the troponin values, in addition to ischemic symptoms, EKG changes, new regional wall motion abnormality, and/or angiographical evidence. PLEASE NOTE: REFERENCE RANGES EDITED 18 Performed By: #### L501.4010 #### [facility] [address] [place], [address] EMERGENCY DEPARTMENT Observed: 03/27/2018 Status: F Source: [place] SUMMARY 6:49 PM [facility] Medical Records Department [address] [place] [address] Emergency Department Summary 03/27/18 1627 MR#: [id number] Acct: [id number] Name: DALE SARABIA Rep #: [id number] : 1955 63 From: Phuc Griffin MD [...] Acute vertigo This note was generated with [employer] dictation software. It may contain incorrect words, spelling, and punctuation that were not noted in review of the chart prior to signing ED Disposition - Plan for ED Patient: Chief Complaint: Dizziness What to do if you have Problems For any increased pain, shortness of breath, bleeding, nausea or vomiting, chest pain, or any unexpected problems, contact your Primary Care Provider. Call [facility] ([phone]) or report to the closest Emergency Room. Call 911 if necessary. 03/27/18 3056 <Electronically signed by Phuc Griffin MD> Date Phuc Griffin MD Cosigner Signature (If Indicated): Date CC: Sebastien Stahl MD CTA HEAD W/WO Observed: 03/27/2018 Status: F Source: [place] CONTRAST 4:32 PM [facility] Imaging Services [address] [place] [place] [address] CTA Head W/WO Contrast MR#: [id number] Acct: [id number] Name: DALE SARABIA Rep #: [id number] : 1955 M 63 From: Red Arizmendi MD PCP: Sebastien Stahl MD Status: REG ER Study: CTA Head W/WO Contrast Date of Exam: 03/27/18 Exam# [id number] Ordering Dr: Phuc Griffin MD STUDY: CTA [...] There is no demonstrated aneurysm of the [place]. There is no demonstrated abnormality of the visualized brain. CT/CTA Head W/WO Contrast IMPRESSION: Hypoplastic right vertebral artery otherwise unremarkable exam. Electronically Signed: Red Arizmendi MD at 17:47 EDT , Service support , CC: Phuc Griffin MD; Sebastien Stahl MD Structural Engineering Technician: Signed CTA NECK W/WO Observed: 03/27/2018 Status: F Source: [place] CONTRAST 4:32 PM [facility] Imaging Services [address] [place] [address] CTA Neck W/WO Contrast MR#: [id number] Acct: [id number] Name: DALE SARABIA Rep #: [id number] : 1955 63 From: Red Arizmendi MD PCP: Sebastien Stahl MD Status: REG ER Study: CTA Neck W/WO Contrast Date of Exam: 03/27/18 Exam# [id number] Ordering Dr: Phuc Griffin MD STUDY: CTA [...] There is no demonstrated aneurysm of the [place]. There is no demonstrated abnormality of the visualized brain. CT/CTA Neck W/WO Contrast IMPRESSION: Hypoplastic right vertebral artery otherwise unremarkable exam. Electronically Signed: Red Arizmendi MD at 17:47 EDT , Service support , CC: Phuc Griffin MD; Sebastien Stahl MD Structural Engineering Technician: Signed CHEST 1 VIEW Observed: 03/27/2018 Status: F Source: [place] (PORTABLE) 4:27 PM [facility] Imaging Services [address] [place] [address]201 Chest 1 View (Portable) MR#: [id number] Acct: [id number] Name: DALE SARABIA Rep #: [id number] : 1955 M 63 From: Red Arizmendi MD PCP: Sebastien Stahl MD Status: PRE ER Study: Chest 1 View (Portable) Date of Exam: 03/27/18 Exam# [id number] Ordering Dr: Phuc Griffin MD STUDY: X-RAY [...] CC: Phuc Griffin MD; Sebastien Stahl MD Structural Engineering Technician: Signed CBC W/DIFF, AUTOMATED Collected: 03/27/2018 Status: F Source: [place] 4:25 PM [facility] TYPE CODE TESTS RESULT OUT OF [...] Normal 2+ Performed By: #### L100.0100 #### [facility] [address], [address] COMPREHENSIVE METABOLIC Collected: 03/27/2018 Status: F Source: [facility] 4:25 PM [facility] TYPE CODE TESTS RESULT OUT OF [...] 11 Performed By: #### L500.4050, L501.4010 #### [facility] [address] [facility] [place], [place], [id number] TROPONIN-I Collected: 03/27/2018 Status: F Source: [place] 4:25 PM [facility] TYPE CODE TESTS RESULT OUT OF RANGE REFERENCE UNITS LAB L501.4010 <0.045 ng/mL Normal < 0.015 TROPONIN-I Result Comment: TROPONIN-I EXPECTED VALUES <0.045 Negative 0.045 - 0.590 Consistent with Cardiac Damage > OR = 0.600 Critical Value Not every elevated troponin is indicative of NJ. These values should be used with clinical judgement in examining the patient's clinical picture for diagnosis. To establish a diagnosis of NJ versus myocardial injury, there must be a demonstrated rise and/or fall in the troponin values, in addition to ischemic symptoms, EKG changes, new regional wall motion abnormality, and/or angiographical evidence. PLEASE NOTE: REFERENCE RANGES EDITED 18 Performed By: #### L500.4050, L501.4010 #### [facility] [address] [place], [address] BEDSIDE GLUCOSE Collected: 03/27/2018 Status: F Source: [place] 4:20 PM [facility] TYPE CODE TESTS RESULT OUT OF REFERENCE UNITS RANGE LAB L501.080 70-110 mg/dL High BEDSIDE GLU 202 Result Comment: MANAGEMENT OF PATIENT CARE PER NURSING PROTOCOL Performed By: #### L501.080 #### [place] [facility] Point of Care [address] [place] [address] CNOVSP Observed: 03/05/2018 Status: COMPLETED Source: [place] 10:10 AM [facility] REPOSITORY Visit (SP) Office (HEMAWS) DALE SARABIA ([id number]) 1955 M Date Time Provider Department 03/05/18 [...] to evaluation here. I reviewed CBCs from [facility]. Hgb=18.4 gm/dl 07/07. CT A/P in February [...] No jaundice or rash. No petechiae. NEUROLOGIC: absence management consultant II-XII are grossly intact. No focal motor [...] Moses Jordan DO Referring Provider: MOSES JORDAN [[id number]] Allergies As of Date: 03/05/2018 Noted Allergy [...] Secondary polycythemia [D75.1] Order(s):CT KIDNEY WO/W IVCON [[id number]] Order #: [id number] FUTURE iv contrast (will be provided with [...] 0.1 %* Apply 1 application to affect* [id number]-MKAHAVH* Take 2 tablets by mouth as ne* Medication notes this encounter TRIAMCINOLONE ACETONIDE 0.1 % TOPICAL CREAM >> Tavia Aguilar MA 03/05/2018 9:53 AM >> TAVIA AGUILAR MA [facility] Mar 05, 2018 9:53 AM No longer [...] 03/05/18 PROGRESS Observed: 03/05/2018 Status: COMPLETED Source: [place] 10:02 AM [facility] REPOSITORY HNO ID: [id number] Author: Moses Jordan Service: (none) Author Type: [...] to evaluation here. I reviewed CBCs from [facility]. Hgb=18.4 gm/dl 07/07. CT A/P in February [...] No jaundice or rash. No petechiae. NEUROLOGIC: absence management consultant II-XII are grossly intact. No focal motor [...] administration of IV Ativan. Moses Jordan, DO JODY TompkinsOSTER CBC Collected: 03/05/2018 Status: F Source: [place] 9:46 AM [facility] REPOSITORY TYPE CODE TESTS RESULT OUT OF REFERENCE UNITS RANGE LAB WWBC 3.70-11.00 k/uL [place] WBC 7.97 LAB WRBC 4.20-6.00 m/uL [place] RBC 5.79 LAB WHGB 13.0-17.0 g/dL Low [place] Hemoglobin 10.9 LAB WHCT 39.0-51.0 % Low [place] Hematocrit 38.5 LAB WMCV 80.0-100.0 fL Low [place] MCV 66.5 LAB WMCH 26.0-34.0 pg Low [place] MCH 18.8 LAB WMCHC 30.5-36.0 g/dL Low [place] MCHC 28.3 Result Comment: Result checked and verified LAB WRDW 11.5-15.0 % High [place] RDW 21.5 LAB WPLT 150-400 k/uL [place] 213 Platelet Cnt LAB WMPV 9.0-12.7 fL [place] MPV 10.7 Result Comment: Test performed at: [address] [place] [address]. FERRITIN Collected: 03/05/2018 Status: F Source: [place] 9:46 AM [facility] REPOSITORY TYPE CODE TESTS RESULT OUT OF REFERENCE UNITS RANGE LAB FERR 30.3-565.7 ng/mL Low Fer[place] 13.2 Performed By: #### FERR #### [facility] [address] [place], [place] [address] 12 LEAD ELECTROCARDIOGRAM Observed: 02/25/2018 Status: F Source: [place] 1:37 PM [facility] Cardiovascular Services [address] [place] [address] 12 Lead EKG 02/19/18 1017 MR#: [id number] Acct: [id number] Name: DALE SARABIA Rep #: [id number] : 1955 63 From: Moses Fields MD [...] axis Poor R wave progression Confirmed by MOSES FIELDS MD ([id number]), editorial cartoonist RIMMA LAZARO ([id number]) on 02/25/2018 1:37:02 PM Referred By: AR Confirmed By:MOSES FIELDS MD 02/25/18 1337 Date Moses Fields MD CC: Judd Fisher DO; Sebastien Stahl Signed EMERGENCY DEPARTMENT Observed: 02/19/2018 Status: F Source: [place] SUMMARY 3:28 PM 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 He reports procedure was done on his right eye. He reports after the procedure was over he had a sharp pain in his right eye and had a near syncopal episode. He reports continued pain in his right eye. He reports the procedure was completed fully and that there was no further concerns from the communications clerk. Patient denies chest pain or shortness of [...] [] Near-syncope This note was generated with [employer] dictation software. It may contain incorrect words, [...] problems, contact your Primary Care Provider. Call [facility] ([phone]) or report to the closest Emergency Room. Call 911 if necessary. 02/19/18 1528 <Electronically signed by Judd Fisher DO> Date Judd Fisher DO Cosigner Signature (If Indicated): Date CC: Sebastien Stahl DISCHARGE INSTRUCTION Observed: 02/19/2018 Status: F Source: [place] 1:07 PM [facility] Medical Records Department [address] [place] [address] Discharge Instruction 02/19/18 1306 MR#: [id number] Acct: [id number] Name: DALE SARABIA Rep #: [id number] : 1955 63 From: Judd Fisher DO [...] your Primary Care Provider. Call [facility] ([phone]) or report to the closest Emergency Room. Call 911 if necessary. 02/19/18 1307 <Electronically signed by Judd Fisher DO> Date Judd Fisher DO Cosigner Signature (If Indicated): Date CC: Sebastien Stahl CBC W/DIFF, AUTOMATED Collected: 02/19/2018 Status: F Source: [place] 11:10 AM [facility] TYPE CODE TESTS RESULT OUT OF [...] Normal 1+ Performed By: #### L100.0100 #### [facility] [address], [address] BASIC METABOLIC Collected: 02/19/2018 Status: F Source: [place] PROFILE (BMP) 11:10 AM [facility] TYPE CODE TESTS RESULT OUT OF [...] 5 Performed By: #### L500.2500, L501.4010 #### [facility] [address] [place], [address] TROPONIN-I Collected: 02/19/2018 Status: F Source: [place] 11:10 AM [facility] TYPE CODE TESTS RESULT OUT OF RANGE REFERENCE UNITS LAB L501.4010 <0.045 ng/mL Normal < 0.015 TROPONIN-I Result Comment: TROPONIN-I EXPECTED VALUES <0.045 Negative 0.045 - 0.590 Consistent with Cardiac Damage > OR = 0.600 Critical Value Not every elevated troponin is indicative of [place]. These values should be used with clinical judgement in examining the patient's clinical picture for diagnosis. To establish a diagnosis of NJ versus myocardial injury, there must be a demonstrated rise and/or fall in the troponin values, in addition to ischemic symptoms, EKG changes, new regional wall motion abnormality, and/or angiographical evidence. PLEASE NOTE: REFERENCE RANGES EDITED 18 Performed By: #### L500.2500, L501.4010 #### [facility] [address] [place], [address] BNP,B-TYPE NATRIURETIC Collected: 02/19/2018 Status: F Source: [place] PEPTIDE 11:10 AM [facility] TYPE CODE TESTS RESULT OUT OF RANGE REFERENCE UNITS LAB L503.6620 0-100 pg/mL Normal B-TYPE 2.7 BRIE PEP Performed By: #### L503.6620 #### [facility] [address] [place], [address] CHEST PA AND LATERAL Observed: 02/19/2018 Status: F Source: [place] 10:06 AM [facility] Imaging Services [address] [address] Chest PA and Lateral MR#: [id number] Acct: [id number] Name: DALE SARABIA Rep #: [id number] : 1955 M 63 From: Anshul Arboleda MD PCP: Sebastien Stahl Status: REG ER Study: Chest PA and Lateral Date of Exam: 02/19/18 Exam# [id number] Ordering Dr: Judd Fisher DO STUDY: X-RAY [...] Anshul Arboleda MD at 12:36 EDT Tel [phone], Service support , CC: Judd Fisher DO; Sebastien Stahl Structural Engineering Technician: Signed CBC-COMPLETE BLOOD CNT Collected: 01/14/2018 Status: F Source: [place] NO DIFF 10:15 AM [facility] TYPE CODE TESTS RESULT OUT OF [...] 9.9 Performed By: #### L100.0500, L100.4500 #### [facility] [address] [place], [address] DIFFERENTIAL COMMENT Collected: 01/14/2018 Status: F Source: [place] 10:15 AM [facility] TYPE CODE TESTS RESULT OUT OF RANGE REFERENCE UNITS LAB L100.4500 Normal SMEAR COMMENT COMMENT Result Comment: SLIDE SCANNED - 1+ ANISO, 1+ [employer] CELLS. Performed By: #### L100.0500, L100.4500 #### [facility] [address] [place], [place], [address] FERRITIN Collected: 01/14/2018 Status: F Source: [place] 10:15 AM [facility] TYPE CODE TESTS RESULT OUT OF REFERENCE UNITS RANGE LAB L503.6550 26-388 ng/mL Low FERRITIN 10 Performed By: #### L503.6550 #### [facility] [address] [place], [place], [address] PULMONARY VISIT REPORT Observed: 01/06/2018 Status: F Source: [place] 2:49 PM [facility] [address] [place], [place] [address] OFFICE VISIT Date of Service: 01/06/18 MR#: [id number] Acct: [id number] Name: DALE SARABIA Rep #: [id number] : 1955 Provider: Toma Morley Age/Sex: 62/M Location: [facility] Status: Signed Assessment AND Plan 1. RHINA [...] understanding. 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 Cardiovascular Services [address] [place] [address] 12 Lead EKG 01/03/18 0832 MR#: [id number] Acct: [id number] Name: DALE SARABIA Rep #: [id number] : 1955 62 From: Rafael Solorio MD Attending Dr: Juli Rodriguez Status: DIS IN Ordering Dr: Maury Daniels MD Date: 01/03/18 Location: [facility] Sex: M C Admitted: 01/03/18 Test Reason [...] ECG Confirmed by RAFAEL SOLORIO MD ([id number]), editorial cartoonist RIMMA LAZARO (56) on 01/06/2018 8:43:45 AM Referred By: ARIS Confirmed By:RAFAEL SOLORIO MD 01/06/18 0843 Date Rafael Solorio MD CC: Juli Rodriguez; Kenny Daniels MD; Sebastien Stahl Signed HISTORY AND PHYSICAL Observed: 01/04/2018 Status: F Source: [place] EXAM 6:21 PM [facility] Medical Records Department [address] [place] [address] History and Physical 01/03/18 1532 MR#: [id number] Acct: [id number] Name: DALE SARABIA Rep #: [id number] : 1955 62 From: William VASQUEZ PCP: Sebastien Stahl Status: DIS IN Y Location: [place] [id number] ADDENDUM by Juli Rodriguez on 01/04/18 at 1821 Code Visit He has secondary polycythemia and has phlebotomy once a month. This should be added to his problem list. 01/04/18 1821 <Electronically signed by Maryann Rodriguez DO> Date [...] for 3 days. Inpatient E AND M: [id number] Init Hosp L3 01/04/18 1808 <Electronically signed [...] artery disease) (Chronic) Atherosclerotic heart disease of [place] coronary artery without angina pectoris (Chronic) 05/22/11, PTCA/stent X [address] 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 01/03/18 1559 <Electronically signed by William VASQUEZ> Date William VASQUEZ 01/04/18 1801<Electronically signed by Maryann Rodriguez DO> Cosigner Signature: Date (if applicable) Maryann Rodriguez DO CC: PEDRO Laws; Juli Rodriguez; Sebastien Stahl Signed DISCHARGE SUMMARY Observed: 01/04/2018 Status: F Source: [place] 6:20 PM [facility] Medical Records Department [facility] [address] [place] [address] Discharge Summary 01/04/18 6485 MR#: [id number] Acct: [id number] Name: DALE SARABIA Rep #: [id number] : 1955 62 From: William VASQUEZ PCP: Sebastien Stahl Status: DIS IN Y [id number] ADDENDUM by Juli Rodriguez on 01/04/18 at [...] have been written. Inpatient E AND M: [id number] Disch Hosp 01/04/18 1820 <Electronically signed by [...] artery disease) (Chronic) Atherosclerotic heart disease of [place] coronary artery without angina pectoris (Chronic) 05/22/11, PTCA/stent X [address] 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 Medical Records Department [address] [address] Instructions for Home/Discharge Instructions 01/04/18 1344 MR#: [id number] Acct: [id number] Name: DALE SARABIA Rep #: [id number] : 1955 62 From: William VASQUEZ PCP: [...] 01/04/2018 Status: F Source: [place] 11:37 AM [facility] TYPE CODE TESTS RESULT OUT OF REFERENCE UNITS RANGE LAB L501.080 70-110 mg/dL High BEDSIDE GLU 284 Result Comment: MANAGEMENT OF PATIENT CARE PER NURSING PROTOCOL Performed By: #### L501.080 #### [facility] Point of Care [address] [place] [address] BEDSIDE GLUCOSE Collected: 01/04/2018 Status: F Source: [place] 6:46 AM [facility] TYPE CODE TESTS RESULT OUT OF REFERENCE UNITS RANGE LAB L501.080 70-110 mg/dL High BEDSIDE GLU 188 Result Comment: MANAGEMENT OF PATIENT CARE PER NURSING PROTOCOL Performed By: #### L501.080 #### [facility] Point of Care [address] [facility] [place] [address] BASIC METABOLIC Collected: 01/04/2018 Status: F Source: [place] PROFILE (BMP) 5:44 AM [facility] TYPE CODE TESTS RESULT OUT OF [...] GAP 10 Performed By: #### L500.2500 #### [facility] [address] [facility] [place], [address] CBC W/DIFF, AUTOMATED Collected: 01/04/2018 Status: F Source: [place] 5:44 AM [facility] TYPE CODE TESTS RESULT OUT OF [...] Normal 1+ Performed By: #### L100.0100 #### [facility] [address] [facility] [place], [place], [address] BEDSIDE GLUCOSE Collected: 01/03/2018 Status: F Source: [place] 9:38 PM [facility] TYPE CODE TESTS RESULT OUT OF REFERENCE UNITS RANGE LAB L501.080 70-110 mg/dL High BEDSIDE GLU 302 Result Comment: MANAGEMENT OF PATIENT CARE PER NURSING PROTOCOL Performed By: #### L501.080 #### [facility] Point of Care [address] [place] [address] Observed: 01/03/2018 Status: F Source: [place] CULTURE, SPUTUM 6:57 PM [facility] Order Date: 01/03/18 Has pt arrived? Y Gram Stain Acceptable Specimen? Yes (<25 Epithelial cells per/lpf) Gram Stain Rare Epithelial cells Rare White Blood Cells Rare Gram positive cocci Rare Gram positive rods Resp. Culture Mixed normal respiratory jeramie. No Haemophilus, Streptococcus pneumoniae, beta-hemolytic Streptococcus or Staphylococcus aureus isolated. Performed By: #### M100.0800 #### [facility] [address] [place], [address] LACTIC ACID Collected: 01/03/2018 Status: F Source: [place] 5:30 PM [facility] TYPE CODE TESTS RESULT OUT OF REFERENCE UNITS RANGE LAB L503.6005 0.4-2.0 mmol/L High alert LACTIC ACID 5.9 Result Comment: Critical Result(s) Called Brenda RODRIGUEZ at: 18:11:16 01/03/2018 by: GERMAIN BOYCE Performed By: #### L503.6005 #### [facility] [address] [place] [address]. [place], [address] URINALYSIS, ROUTINE Collected: 01/03/2018 Status: F Source: [place] (DIPSTICK) 4:40 PM [facility] Order Comment: How was Urine Obtained? [...] ESTERASE Negative Performed By: #### L400.2011 #### [facility] [address] [place] [address]. [place], [place], [address] Observed: 01/03/2018 Status: F Source: [place] LEGIONELLA ANTIGEN 4:40 PM [facility] REPOSITORY Specimen Source: URINE, CLEAN CATCH Legionella, UR Legionella Antigen result interpretation: Negative Presumptive negative for Legionella pneumophila serogroup 1 antigen in urine, suggesting no recent or current infection. POSITIVE Presumptive positive for Legionella pneumophila serogroup 1 antigen in urine, suggesting current or past infection. Legionella Ag, Urine Negative (See interpretation below) Performed By: #### M300.4500 #### [facility] [address] [place], [address] STREP Observed: 01/03/2018 Status: F Source: [place] PNEUMONIAE ANTIG(UR,CSF) 4:40 PM [facility] S pneumo Ag URINE INTERPRETATION Positive [...] interpretation below) Performed By: #### M300.4600 #### [facility] [address] [place], [address] EMERGENCY DEPARTMENT Observed: 01/03/2018 Status: F Source: [place] SUMMARY 4:36 PM [facility] Medical Records Department [address] [place] [address] Emergency Department Summary 01/03/18 0834 MR#: [id number] Acct: [id number] Name: DALE SARABIA Rep #: [id number] : 1955 62 From: Maury Daniels MD [...] 40 minutes This note was generated with [employer] dictation software. It may contain incorrect words, spelling, and punctuation that were not noted in review of the chart prior to signing ED Disposition - Plan for ED Patient: Disposition: [facility] Chief Complaint: Shortness of Breath What to do if you have Problems For any increased pain, shortness of breath, bleeding, nausea or vomiting, chest pain, or any unexpected problems, contact your Primary Care Provider. Call [facility] ([phone]) or report to the closest Emergency Room. Call 911 if necessary. 01/03/18 1636 <Electronically signed by Maury Daniels MD> Date Maury Daniels MD Cosigner Signature (If Indicated): Date CC: Sebastien Stahl BEDSIDE GLUCOSE Collected: 01/03/2018 Status: F Source: [place] 3:56 PM [facility] TYPE CODE TESTS RESULT OUT OF REFERENCE UNITS RANGE LAB L501.080 70-110 mg/dL High BEDSIDE GLU 328 Result Comment: MANAGEMENT OF PATIENT CARE PER NURSING PROTOCOL Performed By: #### L501.080 #### [facility] Point of Care [address] [place] [address] BEDSIDE GLUCOSE Collected: 01/03/2018 Status: F Source: [place] 3:54 PM [facility] TYPE CODE TESTS RESULT OUT OF REFERENCE UNITS RANGE LAB L501.080 70-110 mg/dL High BEDSIDE GLU 315 Result Comment: MANAGEMENT OF PATIENT CARE PER NURSING PROTOCOL Performed By: #### L501.080 #### [facility] Point of Care [address] [place] [address] LACTIC ACID Collected: 01/03/2018 Status: F Source: [place] 12:43 PM [facility] Order Comment: Comments: 3 hours after initial level if initial lactic >2 Yes/No query for Sepsis Lactate Rule Y TYPE CODE TESTS RESULT OUT OF REFERENCE UNITS RANGE LAB L503.6005 0.4-2.0 mmol/L High alert LACTIC ACID 5.6 Result Comment: Critical Result(s) Called at: 13:43:12 01/03/2018 by: Jaiden Luna RN PCU. Performed By: #### L503.6005 #### [facility] [place], [place], [address] Observed: 01/03/2018 Status: F Source: [place] CULTURE, BLOOD (WB) 9:05 AM [facility] BC No growth in 5 days. Performed By: #### M200.1000 #### [facility] [address] [place], [place], [address] LACTIC ACID Collected: 01/03/2018 Status: F Source: [place] 8:55 AM [facility] Order Comment: Yes/No query for Sepsis Lactate Rule Y TYPE CODE TESTS RESULT OUT OF REFERENCE UNITS RANGE LAB L503.6005 0.4-2.0 mmol/L High LACTIC ACID 3.0 Result Comment: Critical Result(s) Called at: 09:32:00 01/03/2018 by: Jaiden Bills RN. (ER) Performed By: #### L503.6005 #### [facility] [address] [place], [address] Observed: 01/03/2018 Status: F Source: [place] INFLUENZA A+B (RAPID 8:55 AM [facility] REPOSITORY Order Date: 01/03/18 Has pt arrived? Y FLU A/B Rapid Negative test results should be confirmed by culture. Order Rapid Viral Culture for Influenzae A+B ([id number]) if clinically indicated. Copy of report sent to Infection Control Printer MS#[id number] 01/03/18 1024 DENIATrey. RESULTS CALLED TO KURT BILLS 01/03/18 1024 Nhi Connelly. REPORT READ BACK BY SAME. Influenza Ag, Direct POSITIVE for the presence of INFLUENZA A Antigen only ORGANISM 1: INFLUENZAE A Performed By: #### M101.0101 #### [facility] [address] [place], [place], [address] Observed: 01/03/2018 Status: F Source: [place] RESPIRATORY PANEL 8:55 AM [facility] Order Date: 01/03/18 CALLED TO BRAULIO RODRIGUEZ 01/03/18 1620 BY LEROY.VRB RP PANEL Normal Reference Range = Not Detected Copy of report sent to Infection Control Printer MS#[id number] 01/04/18 0733 BLUCAS. ADENOVIRUS Not Detected HUMAN METAPHNEUMO Not Detected [...] (SUBTYPE H1) Performed By: #### M100.638 #### [facility] [address] [place], [place], [address] Observed: 01/03/2018 Status: F Source: LE[place]ID CULTURE, BLOOD (WB) 8:53 AM [facility] REPOSITORY BC No growth in 5 days. Performed By: #### M200.1000 #### [facility] [address] [place], [place], [address] CHEST PA AND LATERAL Observed: 01/03/2018 Status: F Source: LEONID 8:33 AM [facility] Imaging Services [address] [place] [address] Chest PA and Lateral MR#: [id number] Acct: [id number] Name: DALE SARABIA Rep #: [id number] : 1955 M 62 From: Nhi Resendiz MD PCP: Sebastien Stahl Status: REG ER Study: Chest PA and Lateral Date of Exam: 01/03/18 Exam# [id number] Ordering Dr: Maury Daniels MD STUDY: X-RAY [...] , CC: Kenny Daniels MD; Sebastien Stahl Structural Engineering Technician: Signed CBC W/DIFF, AUTOMATED Collected: 01/03/2018 Status: F Source: [place]INSON 8:30 AM [facility] TYPE CODE TESTS RESULT OUT OF [...] Normal 1+ Performed By: #### L100.0100 #### [facility] [address] [place], [place], [address] BASIC METABOLIC Collected: 01/03/2018 Status: F Source: LEONID PROFILE ([facility]) 8:30 AM [facility] RE[facility] TYPE CODE TESTS RESULT OUT OF [...] GAP 10 Performed By: #### L500.2500 #### [facility] [address] [place], [place], [address] HEMOGLOBIN A1C Collected: 01/03/2018 Status: F Source: LEONID 8:30 AM [facility] TYPE CODE TESTS RESULT OUT OF RANGE REFERENCE UNITS LAB L501.9985 4.2-6.3 % High HGB A1C 8.2 Performed By: #### L501.9985 #### [facility] [address] [facility] [place], [place], [address] THYROID STIM HORMONE Collected: 01/03/2018 Status: F Source: LEONID (TSH) 8:30 AM [facility] TYPE CODE TESTS RESULT OUT OF RANGE REFERENCE UNITS LAB L501.9520 0.358-3.74 uIU/mL Normal TSH 1.08 Performed By: #### L501.9520, L506.0400 #### [facility] [address] [place], [address] T4 FREE DIRECT Collected: 01/03/2018 Status: F Source: LEONID 8:30 AM [facility] TYPE CODE TESTS RESULT OUT OF RANGE REFERENCE UNITS LAB L506.0400 0.76-1.46 ng/dL Normal T4 FREE 1.02 DIRECT Performed By: #### L501.9520, L506.0400 #### [facility] [address] [place], [address] CBC-COMPLETE BLOOD CNT Collected: 12/17/2017 Status: F Source: LEONID NO DIFF 10:29 AM [facility] Order Comment: CBC AND FERRITIN ARE FOR DR JULIAN NETTLES FOR DR AGUILAR TYPE CODE TESTS RESULT [...] 10.7 Performed By: #### L100.0500, L100.4500 #### [facility] [address] [place], [place], [address] DIFFERENTIAL COMMENT Collected: 12/17/2017 Status: F Source: LEONID 10:29 AM [facility] Order Comment: CBC AND FERRITIN ARE FOR DR JULIAN NETTLES FOR DR AGUILAR TYPE CODE TESTS RESULT OUT OF RANGE REFERENCE UNITS LAB L100.4500 Normal SMEAR COMMENT COMMENT Result Comment: SLIDE SCANNED - RARE TARGET CELLS, SLIGHT HYPOCHROMIA. Performed By: #### L100.0500, L100.4500 #### [facility] [address] [place], [address] PSA,TOTAL - ANNUAL Collected: 12/17/2017 Status: F Source: [place] SCREEN 10:29 AM [facility] Order Comment: CBC AND FERRITIN ARE FOR DR JORDAN PSA FOR DR AGUILAR TYPE CODE TESTS RESULT OUT OF RANGE REFERENCE UNITS LAB L501.9910 0.00-4.00 ng/mL Normal PSA,TOT 1.30 SCREEN Result Comment: This test was performed using the TPSA assay method for the [employer]ual[employer] chemistry system. Values obtained with different assay methods cannot be used interchangably. When changing PSA assays in the course of monitoring a patient, additional sequential testing should be carried out to confirm baseline values. Performed By: #### L501.9910, L503.6550 #### [facility] [address] [place], [address] FERRITIN Collected: 12/17/2017 Status: F Source: LEONID 10:29 AM [facility] Order Comment: CBC AND FERRITIN ARE FOR DR JORDAN PSA FOR DR AGUILAR TYPE CODE TESTS RESULT OUT OF REFERENCE UNITS RANGE LAB L503.6550 26-388 ng/mL Low FERRITIN 6 Performed By: #### L501.9910, L503.6550 #### [facility] [address] [place], [address] CARDIOLOGY VISIT Observed: 12/04/2017 Status: F Source: LEONID REPORT 10:44 AM [facility] RE[facility] [address] [place] [address] OFFICE VISIT Date of Service: 12/04/17 MR#: [id number] Acct: [id number] Name: DALE SARABIA Rep #: [id number] : 1955 Provider: Rafael Solorio MD Age/Sex: 62/M Location: [facility] Status: Signed HPI HPI Chief Complaint: Follow-up [...] been having his blood checked at the [facility] but he is going to switch [...] 12/04/17] Ejection fraction %: 65 to 70 [facility] Medical History Atherosclerotic heart disease of [place] coronary artery without angina pectoris (Chronic) Palpitations (Chronic) Other shelter (current) 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 (Chronic) History of renal [...] his hemoglobin under the care of a manager risk management. 4. 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) Coding Level of Care Code Off vis,est,level 3 Diagnoses Postsurgical percutaneous transluminal coronary angioplasty (PTCA) status Z98.61 Hypertension I10 Obstructive sleep apnea G47.33 Hyperlipidemia E78.5 Coding Level of Care Code Off vis,est,level 3 Diagnoses Postsurgical percutaneous transluminal coronary angioplasty (PTCA) status Z98.61 Hypertension I10 Obstructive sleep apnea G47.33 Hyperlipidemia E78.5 12/04/17 1044 <Electronically signed by Rafael Solorio MD> Date Rafael Solorio MD Cosigner Signature: Date (if applicable) CC: Sebastien Stahl FERRITIN Collected: 11/20/2017 Status: F Source: [place] 1:15 PM [facility] [place] REPOSITORY TYPE CODE TESTS RESULT OUT OF REFERENCE UNITS RANGE LAB FERR 30.3-565.7 ng/mL Low Ferritin 20.9 Performed By: #### FERR #### [facility] [address] [place] [address] LEONID ABS GR + CBC Collected: 11/20/2017 Status: F Source: [place] 1:14 PM [facility] [place] REPOSITORY TYPE CODE TESTS RESULT OUT OF REFERENCE UNITS RANGE LAB WWBC 3.70-11.00 k/uL [place] WBC 8.97 LAB WRBC 4.20-6.00 m/uL [place] High RBC 6.17 LAB WHGB 13.0-17.0 g/dL Low [place] Hemoglobin 12.2 LAB WHCT 39.0-51.0 % [place] Hematocrit 41.4 LAB WMCV 80.0-100.0 fL Low [place] MCV 67.1 LAB WMCH 26.0-34.0 pg Low [place] MCH 19.8 LAB WMCHC 30.5-36.0 g/dL Low [place] MCHC 29.5 LAB WRDW 11.5-15.0 % [place] High RDW 20.4 LAB WPLT 150-400 k/uL [place] Platelet Cnt 246 LAB WMPV 9.0-12.7 fL [place] MPV 9.9 Result Comment: Test performed at: [facility], [address] [place] [address]. LAB ABGRAN 1.45-7.50 k/uL Absol Gran 5.01 Count LEONID ABS GR + CBC Collected: 10/23/2017 Status: F Source: [place] 2:40 PM [facility] REPOSITORY TYPE CODE TESTS RESULT OUT OF REFERENCE UNITS RANGE LAB WWBC 3.70-11.00 k/uL [place] WBC 9.43 LAB WRBC 4.20-6.00 m/uL [place] High RBC 6.22 LAB WHGB 13.0-17.0 g/dL Low [place] Hemoglobin 12.4 LAB WHCT 39.0-51.0 % [place] Hematocrit 43.0 LAB WMCV 80.0-100.0 fL Low [place] MCV 69.1 LAB WMCH 26.0-34.0 pg Low [place] MCH 19.9 LAB WMCHC 30.5-36.0 g/dL Low [place] MCHC 28.8 LAB WRDW 11.5-15.0 % [place] High RDW 21.3 LAB WPLT 150-400 k/uL [place] Platelet Cnt 285 LAB WMPV 9.0-12.7 fL [place] MPV 10.2 Result Comment: Test performed at: [facility], [address] [place] [address]. LAB ABGRAN 1.45-7.50 k/uL Absol Gran 5.47 Count FERRITIN Collected: 10/23/2017 Status: F Source: [place] 2:40 PM [facility] REPOSITORY TYPE CODE TESTS RESULT OUT OF REFERENCE UNITS RANGE LAB FERR 30.3-565.7 ng/mL Low Ferritin 13.7 Performed By: #### FERR #### [facility] [address] [place], [place] [address] HOSP Observed: 10/23/2017 Status: COMPLETED Source: [place] 2:30 PM [facility] REPOSITORY Infusion Center ([facility]) DALE SARABIA ([id number]) 1955 M Date Time Provider Department 10/23/17 2:30 PM TREATMENT RM 7 [facility] During your visit today, we recorded the following information about you: Temperature Pulse Blood pressure 98.1 degrees 112/minute 109/68 Referring Provider: MOSES JORDAN [[id number]] Allergies As of Date: 10/23/2017 Noted Allergy Reaction THEOPHYLLINE 02/25/2006 5 - Intolerance Comments: very lethargic and muscle cramps environmental [Other] 12/27/2008 Comments: Seasonal, food allergies Date Reviewed: 09/25/2017 Reviewed by: Sarahy Arreguin (Rn) MANI Ha - Fully Assessed Primary Visit Diagnosis:Secondary polycythemia [D75.1] Order(s):[facility] COMM[facility]ICATION [[id number]] Order #: [id number]: 1 STANDING [facility] N[facility] COMMUNICATION [[id number]] Order #: [id number]: 1 STANDING Prescriptions as of 10/23/2017 Sig: FUROSEMIDE 40 MG TABLET Take 40 mg by mouth once hodan* SYMBICORT 160 MCG-4.5 MCG/ACT* Inhale 2 Puffs as instructed * LEVOTHYROXINE 25 MCG TABLET Take 25 mcg by mouth once lewis* METFORMIN 1,000 MG TABLET Take one tablet in AM AND 1 /* TOPROL XL 25 MG TABLET,EXTEND* Take 25 [...] 0.1 %* Apply 1 application to affect* LFKAJYF-JARZEBOFANMAF-VAMNAGE* Take 2 tablets by mouth as ne* [...] Encounter Status:Closed by CHELSEA RODRIGUEZ on 10/23/17 ALLERGIES ALLERGIES DATE TYPE / CODE NAME / CODE REACTION SEVERITY SOURCE Drug theophylline/F006 Unknown Unknown [place] 9 Allergy/915077391( 580201(RXNORM) [facility] SNOMED CT) Hospital Repository DRUG MILK SHORTNESS OF [place] INGREDI/846914468( [facility] SNOMED CT) [place] Repository DRUG FENNEL SEED SHORTNESS OF [place] INGREDI/560086360( [facility] SNOMED CT) [place] Repository Food/673449150(SNO CHOCOLATE SHORTNESS OF [place] 1 [facility]) [facility] Main [place] Repository Miscellaneous OTHER [place] Allergy/436179909( [facility] SNOMED CT) [place] Repository DRUG THEOPHYLLINE INTOLERANCE [place] INGREDI/362861222( [facility] SNOMED CT) [place] Repository ENCOUNTERS ENCOUNTERS ADMIT/DISCHARGE ACCOUNT ADMITTING ENCOUNTER LOCATION SOURCE NUMBER CLASS 10/15/2018/10/16/19 [id number] Ambulatory [address] Repository 10/14/2018 [id number] Ambulatory [facility] Hospital ing:LAB Repository 10/04/2018/10/04/19 [id number] Emergency [address] ing:ED Repository 09/17/2018 [id number] Ambulatory [facility] ing:LAB.FUTUR Repository E 09/14/2018 [id number] Ambulatory [facility] ing:RAD Repository 09/01/2018/09/02/20 [id number] Ambulatory [address] Repository 09/01/2018/09/02/20 [id number] Ambulatory [address] Repository 08/31/2018/08/31/20 [id number] Ambulatory [address] Hospital ing:LAB Repository 08/04/2018/08/05/20 [id number] Ambulatory [address] Repository 08/03/2018/08/28/20 [id number] Ambulatory [address] Hospital ing:LAB Repository 07/30/2018 [id number] Ambulatory [facility] Hospital ing:LAB Repository 07/09/2018/07/10/20 [id number] Ambulatory [address] Repository 07/03/2018/07/03/20 [id number] Ambulatory [address] Hospital ing:LAB Repository 07/02/2018 [id number] Ambulatory BMSBuilding:B [place] MS.G [facility] Repository 06/26/2018 [id number] Ambulatory [facility] Hospital ing:LAB Repository 06/21/2018/06/23/20 [id number] [place], Inpatient [place] 18 [facility] ing:PCURoom: Repository POF365Mvv: 1 06/21/2018 [id number] [place], Ambulatory BMSBuilding:B [place] MS.WIP [facility] Repository 06/21/2018 [id number] [place], Ambulatory BMSBuilding:Melvin Joyce MS.[facility] Hospital Repository 06/21/2018 [id number] Ambulatory BMSBuilding:Melvin Jaquez MS.[facility] Hospital Repository 06/19/2018/06/19/20 [id number] [address] Hospital ing:CLSP Repository 06/19/2018/06/19/20 [id number] Ambulatory BMSBuilding:W [place] 18 [facility] Repository 06/18/2018/06/18/20 [id number] Ambulatory BMSBuilding:Melvin Jaquez 18 [facility] Repository 06/16/2018/06/16/20 [id number] Ambulatory BMSBuilding:Melvin Jaquez 18 MS.[facility] Repository 06/11/2018/06/12/20 [id number] Ambulatory [address] Repository 06/10/2018/06/10/20 [id number] Ambulatory [address] Hospitalild Hospital ing:LAB Repository 06/02/2018 [id number] Ambulatory [facility] Hospital ing:PSN Repository 06/02/2018 [id number] Ambulatory BMSBuilding:W [facility] Repository 05/27/2018 [id number] Ambulatory [facility] Hospital ing:EMPH Repository 05/21/2018 [id number] Ambulatory [facility] Hospital ing:PSN Repository 05/21/2018 [id number] Ambulatory BMSBuilding:W [facility] Repository 05/19/2018/05/19/20 [id number] Ambulatory BMSBuilding:Melvin Jaquez 18 [facility] Repository 05/14/2018/05/15/20 [id number] Ambulatory [address] Repository 05/13/2018 [id number] [facility] Repository 04/16/2018/04/17/20 [id number] Ambulatory [address] Repository 04/14/2018/04/16/20 [id number] Ambulatory [address] Repository 04/14/2018/04/14/20 [id number] Ambulatory [address] Repository 04/14/2018/04/20/20 [id number] Ambulatory [address] Repository 03/28/2018/03/28/20 [id number] Ambulatory BMSBuilding:W Leon[place] 18 [facility] Repository 03/27/2018/03/28/20 [id number] [place], Ambulatory [address] ing:PCURoom: Repository [id number]: 1 03/27/2018 [id number] [place], Ambulatory BMSBuilding:Melvin Pederson MS.[facility] Repository 03/27/2018 [id number] [place], Ambulatory BMSBuilding:Melvin Pederson MS.[facility] Repository 03/05/2018/03/06/20 [id number] Ambulatory [address] Repository 03/05/2018/03/06/20 [id number] Ambulatory [address] Repository 02/19/2018/02/20/20 [id number] Emergency [address] ing:ED Repository 01/15/2018/01/17/20 [id number] Ambulatory [address] Repository 01/14/2018 [id number] Ambulatory [facility] ing:LAB Repository 01/06/2018/01/07/20 [id number] Ambulatory BMSBuilding:B [place] 18 [facility] Repository 01/03/2018/01/05/20 [id number] [place], Inpatient Leonid[address] ing:PCURoom: Repository [id number]: 1 01/03/2018 [id number] [place], Ambulatory BMSBuilding:Melvin Bustos MS.[facility] Repository 01/03/2018 [id number] [place], Ambulatory BMSBuilding:Melvin Bustos MS.[facility] Repository 12/18/2017/12/20/19 [id number] Ambulatory [address] Repository 12/17/2017 [id number] Ambulatory [facility] ing:LAB.FUTUR Repository E 12/04/2017/12/05/19 [id number] Ambulatory BMSBuilding:Melvin [place] 18 [facility] Repository 11/20/2017/12/09/19 [id number] Ambulatory [address] Repository 11/20/2017/12/10/19 [id number] Ambulatory [address] Repository 10/23/2017/10/24/19 [id number] Ambulatory [address] Repository 10/23/2017/10/24/19 [id number] Ambulatory [address] Repository PAYERS PAYERS ENCOUNTER GUARANTOR PAYER SUBSCRIBER SOURCE 10/14/2018 DALE Perez Primary Insurance:[facility] DALE Jaquez [id number] [facility] [id number] Number: Repository [address]Dex: 330 [id number] [phone] (HP) Date:9261-93-78YZ [address] [address]OGTCQ[place], [place] [address]OS: CHECK WEBSITE 10/14/2018 Secondary NOT GIVENUNK [place] Insurance:SELF PAY [facility] Number: Effective Repository Date:2018-09-28 10/04/2018 DALE Perez Primary Insurance:[facility] DALE Jaquez [id number] [facility] [id number], [place] Number: Repository [address]Oio: 330 [id number] [phone] (HP) Date:9470-60-50ET [address] [address]BYQMWNWHC, [place] [address]WR: CHECK WEBSITE 10/04/2018 Secondary NOT GIVENUNK [place] Insurance:SELF PAY [facility] Number: Effective Repository Date:2018-10-04 09/17/2018 DALE Perez Primary Insurance:[facility] DALE Jaquez [id number] [facility] [id number], [place] Number: Repository [address]Sde: 330 [id number] [phone] (HP) Date:2114-43-16YO [address] [address]EXZPTFJRZ, [place] [address]BW: CHECK WEBSITE 09/17/2018 Secondary NOT GIVENUNK [place] Insurance:SELF PAY [facility] Number: Effective Repository Date:2018-09-02 09/14/2018 DALE P Primary Insurance:[facility] DALE Perez [place] [id number] [facility] [id number] Number: Repository [address]Kys: 330 [id number] [phone] (HP) Date:7479-46-98CD [address] [address]ZONYKCQNE, [place] [address]XH: CHECK WEBSITE 09/14/2018 Secondary NOT GIVENUNK [place] Insurance:SELF PAY [facility] Number: Effective Repository Date:2018-09-14 08/31/2018 DALE P Primary Insurance:[facility] DALE Perez Leon[place] [id number] [facility] [id number] Number: Repository [address]Jpc: 330 [id number] [phone] () Date:4448-56-85OC [address] [address]UYGPIUQNY, [place] [address]DY: CHECK WEBSITE 08/31/2018 Secondary NOT GIVENUNK [place] Insurance:SELF PAY [facility] Number: Effective Repository Date:2018-08-31 08/03/2018 DALE P Primary Insurance:[facility] DALE Perez [place] [id number] [facility]: [facility] [id number] Number: Repository [address]Ked: 330 [id number] [phone] (HP) Date:6190-74-97NO [address] [address]MQZPSARTB, [place] [address]WP: CHECK WEBSITE 08/03/2018 Secondary NOT GIVENUNK [place] Insurance:SELF PAY [facility] Number: Effective Repository Date:2018-08-03 07/30/2018 DALE P Primary Insurance:[facility] DALE Perez [place] [id number] [facility]: [address] Number: Repository [address]Vgj: 330 [id number] [phone] (HP) Date:6578-68-80OS [address] [address]ZHOJXALFA, [place] [address]NX: CHECK WEBSITE 07/30/2018 Secondary NOT GIVENUNK [place] Insurance:SELF PAY [facility] Number: Effective Repository Date:2018-07-30 07/03/2018 DALE P Primary Insurance:[facility] DALE P [place] [address]: [facility] [id number], [place] Number: Repository [address]Mhj: 330 [id number] [phone] (HP) Date:7535-73-48PK [address] [address]MIZTMSDUS, [place] [address]IP: CHECK WEBSITE 07/03/2018 Secondary NOT GIVENUNK [place] Insurance:SELF PAY [facility] Number: Effective Repository Date:2018-07-01 07/02/2018 DALE P Primary Insurance:[facility] DALE P [place]: [facility] [id number], [place] Number: Repository [address]Vzn: 330 [id number] [phone] (HP) Date:6889-88-39VJ [address] [address]LDXZFTUHF, [place] [address]TY: CHECK WEBSITE 07/02/2018 Secondary DALE P [place] Insurance:MEDICARE A RALPHDOB: [facility] Number: [id number] Hospital [id number] AEffective Repository Date:2018-07-02 07/02/2018 Tertiary NOT GIVENUNK [place] Insurance:SELF PAY [facility] Number: Effective Repository Date:2018-07-02 06/26/2018 DALE P Primary Insurance:[facility] DALE P [place] [address]: [facility] [id number], [place] Number: Repository [address]Zbt: 330 [id number] [phone] (HP) Date:4863-79-70VC [address] [address]HSKQFNEOQ, [place] [address]ET: CHECK WEBSITE 06/26/2018 Secondary DALE P [place] Insurance:MEDICARE A RALPHDOB: Community ONLYPolicy Number: [id number] Hospital [id number] Repository Date:2018-06-26 06/26/2018 Tertiary NOT GIVENUNK [place] Insurance:SELF PAY [facility] Number: Effective Repository Date:2018-06-26 06/21/2018 DALE P Primary Insurance:[facility] DALE Perez [place] [id number] [facility] [id number], [place] Number: Repository [address]Isx: (473) [id number] [phone] (HP) Date:1317-43-25NZ [address] [address]RXYPZUEKF, [place] [address]FM: CHECK WEBSITE 06/21/2018 Secondary DALE P [place] Insurance:MEDICARE A [facility] Number: [id number] Hospital [id number] AEffective Repository Date:2018-06-21 06/21/2018 Tertiary NOT GIVENUNK [place] Insurance:SELF PAY [facility] Number: Effective Repository Date:2018-06-21 06/21/2018 DALE P Primary Insurance:[facility] DALE Chris aJquez [id number] [facility]: [facility] [id number], [place] Number: Repository [address]Hvv: (534) [id number] [phone] (HP) Date:0189-79-67BY [address] [address]PAAHAMMEM, [place] [address]KV: CHECK WEBSITE 06/21/2018 Secondary NOT GIVENUNK [place] Insurance:SELF PAY [facility] Number: Effective Repository Date:2018-06-21 06/21/2018 DALE P Primary Insurance:[facility] DALE Perez Leonid [id number] [facility]: [facility] [id number], [place] Number: Repository [address]Diy: (240) [id number] [phone] (HP) Date:6154-98-12YF [address] [address]OYGYIHRJA, [place] [address]IG: CHECK WEBSITE 06/21/2018 Secondary NOT GIVENUNK [place] Insurance:SELF PAY [facility] Number: Effective Repository Date:2018-06-21 06/21/2018 DALE Perez Primary Insurance:[facility] DALE Perez Leon[place] [id number] [facility] [id number] Number: Repository [address]Wto: 330 [id number] [phone] (HP) Date:1976-99-67FU [address] [address]LBZTBHJZB, [place] [address]IV: CHECK WEBSITE 06/21/2018 Secondary NOT GIVENUNK [place] Insurance:SELF PAY [facility] Number: Effective Repository Date:2018-06-21 06/19/2018 DALE Perez Primary Insurance:[facility] DALE Perez Leon[place] [id number] [facility] [id number] Number: Repository [address]Gic: 330 [id number] [phone] () Date:7540-94-89RS [address] [address]OBQZLCMIA, [place] [address]CN: CHECK WEBSITE 06/19/2018 Secondary NOT GIVENUNK [place] Insurance:SELF PAY [facility] Number: Effective Repository Date:2018-06-16 06/19/2018 DALE Perez Primary Insurance:[facility] DALE Perez [place] [id number] [facility] [id number] Number: Repository [address]Dsw: 330 [id number] [phone] Date:0679-00-84PR [address] [address]PMVPTVZMY, [place] [address]FI: CHECK WEBSITE 06/19/2018 Secondary NOT GIVENUNK [place] Insurance:SELF PAY [facility] Number: Effective Repository Date:2018-06-19 06/18/2018 DALE Perez Primary Insurance:[facility] DALE Perez [place] [id number] [facility] [address] Number: Repository [address]Bqb: 330 [id number] [phone]) Date:4675-65-71ZM [address] [address]Z[place]ETTMOTX, [place] [address]ST: CHECK WEBSITE 06/18/2018 Secondary DALE P [place] Insurance:[facility] Number: [id number] Hospital [id number] AEffective Repository Date:2018-05-19 06/18/2018 Tertiary NOT GIVENUNK [place] Insurance:SELF PAY [facility] Number: Effective Repository Date:2018-06-11 06/16/2018 DALE P Primary Insurance:[facility] DALE P [place] [id number] [facility] [id number] Number: Repository [address]Agd: 330 [id number] [phone] (HP) Date:9915-98-42RR [address] [address]QWDEYNSQA, [place] [address]XG: CHECK WEBSITE 06/16/2018 Secondary NOT GIVENUNK Leon[place] Insurance:SELF PAY [facility] Number: Effective Repository Date:2018-06-16 06/10/2018 DALE P Primary Insurance:[facility] DALE Perez [place] [id number] [facility] 1424-59-75[place]XHLords[place] Number: Repository [address]Hvk: 330 [id number] [phone]) Date:0137-60-18KZ [address] [address]VAOKHBGNF, [place] [address]GY: CHECK WEBSITE 06/10/2018 Secondary NOT GIVENUNK [place] Insurance:SELF PAY [facility] Number: Effective Repository Date:2018-06-10 06/02/2018 DALE P Primary Insurance:[facility] DALE Perez [place] [id number] [facility] 7298-49-96[place]UKLords[place] Number: Repository [address]Qqy: 330 [id number] [phone] (HP) Date:0915-01-20TU [address] [address]YLJISCJFI, [place] [address]GW: CHECK WEBSITE 06/02/2018 Secondary NOT GIVENUNK [place] Insurance:SELF PAY [facility] Number: Effective Repository Date:2018-05-19 06/02/2018 DALE Perez Primary Insurance:[facility] DALE [place] [id number] [facility] 3319-02-19OXWLordsburg, [place] Number: Repository [address]Nxi: 330 [id number] [phone] (HP) Date:2488-21-18ZM [address] [address]SQAGEQGCV, [place] [address]NM: CHECK WEBSITE 06/02/2018 Secondary NOT GIVENUNK [place] Insurance:SELF PAY [facility] Number: Effective Repository Date:2018-06-02 05/27/2018 DALE Perez Primary NOT GIVENUNK [place] [id number] Insurance:SELF [place] Number: Effective Repository [address]Max: 330) Date:2018-05-27 [phone] (HP) 05/21/2018 DALE Perez Primary Insurance:[facility] DALE Jaquez [id number] [facility] 2225-82-24VJWLordsburg, [place] Number: Repository [address]Bun: 330 [id number] [phone]) Date:5676-82-37OQ [address] [address]ENWLNFLIE, [place] [address]PO: CHECK WEBSITE 05/21/2018 Secondary NOT GIVENUNK [place] Insurance:SELF PAY [facility] Number: Effective Repository Date:2018-05-19 05/21/2018 DALE Perez Primary Insurance:[facility] DALE Jaquez [id number] [facility] 2949-74-46OTDLordsburg, [place] Number: Repository [address]Pql: 330 [id number] [phone]) Date:0576-47-31CY [address] [address]SMGQYKEIM, [place] [address]JA: CHECK WEBSITE 05/21/2018 Secondary NOT GIVENUNK [place] Insurance:SELF PAY [facility] Number: Effective Repository Date:2018-05-21 05/19/2018 DALE P Primary Insurance:[facility] DALE P Leonid [id number] [facility] [id number] Number: Repository [address]Vcx: 330 [id number] [phone] (HP) Date:3189-35-74PL [address] [address]LGMTKNZJN, [place] [address]AZ: CHECK WEBSITE 05/19/2018 Secondary DALE P [place] Insurance:[facility] Number: [id number] Hospital [id number] AEffective Repository Date:2018-05-18 05/19/2018 Tertiary NOT GIVENUNK [place] Insurance:SELF PAY [facility] Number: Effective Repository Date:2018-05-19 05/13/2018 DALE P Primary Insurance:[facility] DALE P Leonid [id number] [facility] [id number] Number: Repository [address]Rku: 330 [id number] [phone] Date:4203-64-61WL [address] [address]BXOLEIEVY, [place] [address]RP: CHECK WEBSITE 05/13/2018 Secondary NOT GIVENUNK [place] Insurance:SELF PAY [facility] Number: Effective Repository Date:2018-05-13 03/28/2018 DALE P Primary Insurance:[facility] DALE P [place] [address]: [facility] 0072-56-18SIOLordsburg, [place] Number: Repository [address]Ljj: 330 [id number] [phone]) Date:4581-22-89IW [address] [address]GGPPMPNEN, [place] [address]FD: CHECK WEBSITE 03/28/2018 Secondary NOT GIVENUNK [place] Insurance:SELF PAY [facility] Number: Effective Repository Date:2018-03-28 03/27/2018 DALE P Primary Insurance:[facility] DALE P [place] [address]: [address]04-12[place], [place] Number: Repository [address]Lqn: 330 [id number] [phone] (HP) Date:6086-42-82ME [address] [address]UGXEMMZUM, [place] [address]RC: CHECK WEBSITE 03/27/2018 Secondary NOT GIVENUNK [place] Insurance:SELF PAY [facility] Number: Effective Repository Date:2018-03-27 03/27/2018 DALE Perez Primary Insurance:[facility] DALE Perez Leonid [id number] [facility] 6875-62-87FWALordsburg, [place] Number: Repository [address]Saq: 330 [id number] [phone] (HP) Date:6443-46-94UX [address] [address]XTBHRDPPC, [place] [address]AZ: CHECK WEBSITE 03/27/2018 Secondary NOT GIVENUNK [place] Insurance:SELF PAY [facility] Number: Effective Repository Date:2018-03-27 03/27/2018 DALE Perez Primary Insurance:[facility] DALE [place] [id number] [facility] 8313-87-89FBHLordsburg, [place] Number: Repository [address]Dln: 330 [id number] [phone] (HP) Date:3308-10-25AQ [address] [address]LHFJPSJYR, [place] [address]BD: CHECK WEBSITE 03/27/2018 Secondary NOT GIVENUNK [place] Insurance:SELF PAY [facility] Number: Effective Repository Date:2018-03-27 02/19/2018 DALE Perez Primary Insurance:[facility] DALE [place] [id number] [facility] 6785-48-96URZLordsburg, [place] Number: Repository [address]Qcl: 330 [id number] [phone]) Date:3917-89-63KX [address] [address]GDOTUWMWA, [place] [address]UM: CHECK WEBSITE 02/19/2018 Secondary NOT GIVENUNK [place] Insurance:SELF PAY [facility] Number: Effective Repository Date:2018-02-19 01/14/2018 DALE Perez Primary Insurance:[facility] DALE Chris Jaquez [id number] [facility] 8258-28-64VWMLordsburg, [place] Number: Repository [address]Mmr: 330 [id number] [phone]) Date:8002-91-54DF [address] [address]PJQOUJVWW, [place] [address]OE: CHECK WEBSITE 01/14/2018 Secondary NOT GIVENUNK [place] Insurance:SELF PAY [facility] Number: Effective Repository Date:2018-01-14 01/06/2018 DALE Perez Primary Insurance:[facility] DALEMALLORY Jaquez [id number] [facility] 8151-62-15GOXLordsburg, [place] Number: Repository [address]Cpj: 330 [id number] [phone] (HP) Date:5080-39-52WA [address] [address]FLVLFCCJO, [place] [address]MB: CHECK WEBSITE 01/06/2018 Secondary NOT GIVENUNK [place] Insurance:SELF PAY [facility] Number: Effective Repository Date:2018-01-02 01/03/2018 DALE Perez Primary Insurance:[facility] DALE Chris Jaquez [id number] [facility] 8904-41-05NKALordsburg, [place] Number: Repository [address]Csj: 330 [id number] [phone]) Date:2589-04-51CJ [address] [address]CUSXASSBN, [place] [address]ST: CHECK WEBSITE 01/03/2018 Secondary NOT GIVENUNK [place] Insurance:SELF PAY [facility] Number: Effective Repository Date:2018-01-03 01/03/2018 DALE Perez Primary Insurance:[facility] DALE Chris Jaquez [id number] [facility] 4362-83-68LISLordsburg, [place] Number: Repository [address]Xnv: 330 [id number] [phone]) Date:9076-80-09BV [address] [address]EHSVCCQTU, [place] [address]MP: CHECK WEBSITE 01/03/2018 Secondary NOT GIVENUNK [place] Insurance:SELF PAY [facility] Number: Effective Repository Date:2018-01-03 01/03/2018 DALE Perez Primary Insurance:[facility] DALE Chris [place] [id number] [facility] 9840-39-74OMSLordsburg, [place] Number: Repository [address]Jsv: 330 [id number] [phone]) Date:6393-12-57AO [address] [address]AFVJWLPYB, [place] [address]YO: CHECK WEBSITE 01/03/2018 Secondary NOT GIVENUNK [place] Insurance:SELF PAY [facility] Number: Effective Repository Date:2018-01-03 12/17/2017 DALE Perez Primary Insurance:[facility] DALE Chris [place] [id number] [facility] 9819-79-41BOHLordsburg, [place] Number: Repository [address]Gnj: 330 [id number] [phone] (HP) Date:0660-27-26XG [address] [address]BTZMFHPEF, [place] [address]NX: CHECK WEBSITE 12/17/2017 Secondary NOT GIVENUNK [place] Insurance:SELF PAY [facility] Number: Effective Repository Date:2017-11-24 12/04/2017 DALE Perez Primary DALE Chris VeraLeonid [id number] Insurance:[facility]: [facility] 1783-83-73IJEHarvard, [place] Number: Repository [address]Mpi: 330 [id number] [phone] (HP) Date:6508-61-06AN [address] [address]AS: 12/04/2017 Secondary NOT GIVENUNK [place] Insurance:SELF PAY [facility] Number: Effective Repository Date:2017-12-04
== END ==
PROVIDERS: Family Provider Family Medicine; PCP Family Medicine; Referring Provider Anesthesiology Pain Medicine; Visit Provider Anesthesiology Pain Medicine
DX: M25.552 Pain in left hip (principal)
CPT/HCPCS: 73502

== ENCOUNTER → 2018-09-17 10:34 | Outpatient (CLI) | payer OTHER, SELFPAY ==
[2018-06-21 20:25] VITALS: BMI 41.5
[2018-09-17 11:21] LABS: Absolute Lymphocyte Count 1.78 X10^3/ul (0.83-4.51); Absolute Neutrophil Count 6.2 X10^3/uL (2.0-7.7); Basophil# 0.04 X10^3/uL; Basophil% 0.4 % (0-1); Differential Indicated SCAN CRITERIA MET; Eosinophil# 0.08 X10^3/uL; Eosinophils% 0.9 % (0-5); Hematocrit 46.1 % (40-54); Hemoglobin 13.3 g/dl (13.0-16.5); Lymphocyte # 1.78 X10^3/ul (4.0); Lymphocyte % 19.8 % (19-41); Mean Corp Hgb Conc 28.9 g/gl (32-36); Mean Corpuscular Hgb 20.8 pg (27.0-32.0); Mean Corpuscular Volume 72.1 fL (80-94); Monocyte# 0.82 X10^3/uL; Monocyte% 9.1 % (0-10); Neutrophil # 6.24 X10^3/uL (2.7-7.7); Neutrophil % 69.6 % (47-70); POSITIVE COUNT NO; POSITIVE DIFFERENTIAL NO; POSITIVE MORPHOLOGY YES; Platelet Count 222 K/mm3 (150-450); RBC Distribution Width CV 22.4 % (11.6-14.6); RBC Distribution Width SD 56.5 fl (35.1-43.9); Red Blood Count 6.39 M/mm3 (4.6-6.2)
[2018-09-17 12:08] LABS: Anisocytosis 1+; Hypochromasia 1+
== END ==
PROVIDERS: Family Provider Family Medicine; PCP Family Medicine; Referring Provider Internal Medicine Hematology & Oncology; Visit Provider Internal Medicine Hematology & Oncology
DX: D75.1 Secondary polycythemia (principal)
CPT/HCPCS: 36415; 85025

== ENCOUNTER 2018-10-04 14:24 | Emergency (ER) | payer OTHER, SELFPAY ==
[2018-10-04 14:25] VITALS: BP 151/74; PULSE 108; RESP 16; TEMP 36.8; O2SAT 97; BMI 42.7
--- NOTE | 2018-10-04 15:32 | ED.VISSUMM ---
- ER Visit Summary Date of Service: 10/04/18 Chief Complaint: Hip pain History of Present Illness: The patient is a 63 M with history of hip arthritis. Patient states he was last seen by orthopedics approximately 3 years ago and told it was not bad enough to need a hip replacement. He has been following with Dr. Solis. Patient states he was at [employer] today walking when he had sudden sharp pain at the lateral posterior left hip that shot down the back of his leg to his knee. Pain is improving at this time. Physical Examination: Vital signs gross unremarkable. Heart rate is slightly elevated at 108. Patient is sitting on the side of the bed. He was observed ambulate and back to the restroom with his cane. Head neck examination unremarkable. Heart is regular rate and rhythm. Lung sounds are slightly diminished throughout. Abdomen is soft, obese, nontender. Lower external examination reveals mild tenderness to the posterior lateral aspect of the left hip. He has full range of motion. Strong distal pulses are noted. Test Results: Left hip and pelvis x-rays are obtained that show no acute findings. Emergency Department Course and Treatment: Patient was given [place] here. On repeat evaluation he is improved. He will be given a short course of [place] for home and will follow up with his physician. Treatment Plan: [] Disposition: Discharge Impression: Left hip pain This note was generated with [employer] dictation software. It may contain incorrect words, spelling, and punctuation that were not noted in review of the chart prior to signing ED Disposition - Plan for ED Patient: Chief Complaint: Lower Extremity Injury Referrals: Sebastien Stahl MD [Primary Care Provider] -
[2018-10-04] MEDS: HYDROcodone Bitartrate/Apap 5/325 Tablet PO (15:38)
--- NOTE | 2018-10-04 15:45 | RAD_ITS ---
STUDY: X-RAY - LEFT HIP REASON FOR EXAM: Male, 63 years old. Left hip pain TECHNIQUE: 3 views of the hip. COMPARISON: 09/14/2018 FINDINGS: There are osteoarthritic changes of the femoral head with marginal osteophyte formation. There is osteoarthritic spur formation of the acetabular rim. There is moderate articular joint space narrowing. Normal visualized superior and inferior pubic rami and ischial tuberosities. There is no demonstrated hip fracture. RAD/HIP, UNI W/ Pelvis 2-3 Views IMPRESSION: No acute findings Electronically Signed: Gigi Wolf DO at 16:51 EST Tel , Service support ,
--- NOTE | 2018-10-04 17:12 | DCINST.ED_ITS ---
ED Disposition - Plan for ED Patient: Disposition: Home or Assisted Living Chief Complaint: Lower Extremity Injury Instructions: ED Sprain Hip Prescriptions: Hydrocodone Bitart/Apap 5-325 [[place] 5MG-325MG] 1 tablet PO Q6H PRN PRN 3 Days #10 tablet PRN Reason: Pain Referrals: Sebastien Stahl MD [Primary Care Provider] - Bakari Solis MD [STAFF PHYSICIAN] -
== END 2018-10-04 17:43 | disposition home or self-care (01) ==
PROVIDERS: Emergency Provider Emergency Medicine; Family Provider Family Medicine; PCP Family Medicine
DX: M25.552 Pain in left hip (principal); E66.9 Obesity, unspecified; I25.10 Atherosclerotic heart disease of native coronary artery without angina pectoris; J44.9 Chronic obstructive pulmonary disease, unspecified; E11.9 Type 2 diabetes mellitus without complications; I10 Essential (primary) hypertension; E78.00 Pure hypercholesterolemia, unspecified; E03.9 Hypothyroidism, unspecified; M19.90 Unspecified osteoarthritis, unspecified site; Z86.711 Personal history of pulmonary embolism; Z79.02 Long term (current) use of antithrombotics/antiplatelets; Z79.82 Long term (current) use of aspirin; Z79.51 Long term (current) use of inhaled steroids; Z79.899 Other long term (current) 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
CPT/HCPCS: 73502; 99283

== ENCOUNTER 2018-10-28 13:58 | Outpatient (RCR) | payer OTHER, SELFPAY ==
[2018-06-21 20:25] VITALS: BMI 41.5
[2018-10-14 11:38] LABS: Hemoglobin 14.2 g/dl (13.0-16.5); Mean Corp Hgb Conc 29.6 g/gl (32-36); Mean Corpuscular Hgb 22.3 pg (27.0-32.0); Mean Corpuscular Volume 75.5 fL (80-94); Mean Platelet Vol. 10.4 fl (6.2-12.0); Platelet Count 190 K/mm3 (150-450); RBC Distribution Width CV 23.3 % (11.6-14.6); RBC Distribution Width SD 61.5 fl (35.1-43.9); Red Blood Count 6.36 M/mm3 (4.6-6.2); Scan Indicated on CBC? Y/N YES- FLAGS NOTED; White Blood Count 4.7 K/mm3 (4.4-11.0)
[2018-10-14 12:18] LABS: Ferritin 8 ng/mL (26-388)
[2018-10-28 14:15] LABS: Hemoglobin 14.2 g/dl (13.0-16.5); Mean Corp Hgb Conc 28.4 g/gl (32-36); Mean Corpuscular Hgb 22.9 pg (27.0-32.0); Mean Corpuscular Volume 80.5 fL (80-94); Mean Platelet Vol. 9.4 fl (6.2-12.0); Platelet Count 93 K/mm3 (150-450); RBC Distribution Width CV 23.2 % (11.6-14.6); RBC Distribution Width SD 63.3 fl (35.1-43.9); Red Blood Count 6.21 M/mm3 (4.6-6.2); White Blood Count 5.1 K/mm3 (4.4-11.0)
[2018-10-28 14:18] LABS: Scan Indicated on CBC? Y/N YES- FLAGS NOTED
--- OUTSIDE RECORDS SUMMARY | 2018-12-19 05:55 | XMS RPT_ITS ---
:1955 Author Organization OHIP Support Name Relationship Address Phone ALANA SARABIA Unavailable [address] + [place] [address] [facility] Unavailable [address] + [place] [address] ADRIAN, ALANA Unavailable [address] + [place] [address] [facility] Unavailable [address] + [place] [address] SARABIA, ALANA Unavailable [address] + [place] [address] [facility] Unavailable [address] + [place] [address] SARABIA, ALANA Unavailable [address] + [place] [address] [facility] Unavailable [address] + [place] [address] SARABIA, ALANA Unavailable [address] + [place] [address] [facility] Unavailable [address] + [place] [address] PRATT, ALANA Unavailable [address] + [place] [address] [facility] Unavailable [address] + [place] [address] SARABIA, ALANA Unavailable [address] + [place] [address] [facility] Unavailable [address] + [place] [address] SARABIA, ALANA Unavailable [address] + [place] [address] [facility] Unavailable [address] + [place] [address] SARABIA, ALANA Unavailable [address] + [place] [address] [facility] Unavailable [address] + [place] [address] SARABIA, ALANA Unavailable [address] + [place] [address] [facility] Unavailable [address] + [place] [address] SARABIA, ALANA Unavailable [address] + [place] [address] [facility] Unavailable [address] + [place] [address] SARABIA, ALANA Unavailable [address] + [place] [address] [facility] Unavailable [address] + [place] [address] SARABIA, ALANA Unavailable [address] + [place] [address] [facility] Unavailable [address] + [place] [address] SARABIA, ALANA Unavailable [address] + [place] [address] [facility] Unavailable [address] + [place] [address] SARABIA, ALANA Unavailable [address] + [place] [address] [facility] Unavailable [address] + [place] [address] SARABIA, ALANA Unavailable [address] + [place] [address] [facility] Unavailable [address] + [place] [address] SARABIA, ALANA Unavailable [address] + [place] [address] [facility] Unavailable [address] + [place] [address] SARABIA, ALANA Unavailable [address] + [place] [address] [facility] Unavailable [address] + [place] [address] SARABIA, ALANA Unavailable [address] + [place] [address] [facility] Unavailable [address] + [place] [address] SARABIA, ALANA Unavailable [address] + [place] [address] [facility] Unavailable [address] + [place] [address] SARABIA, ALANA Unavailable [address] + [place] [address] [facility] Unavailable [address] + [place] [address] SARABIA, ALANA Unavailable [address] + [place] [address] [facility] Unavailable [address] + [place] [address] SARABIA, ALANA Unavailable [address] + [place] [address] [facility] Unavailable [address] + [place] [address] SARABIA, ALANA Unavailable [address] + [place] [address] [facility] Unavailable [address] + [place] [address] SARABIA, ALANA Unavailable [address] + [place] [address] [facility] Unavailable [address] + [place] [address] SARABIA, ALANA Unavailable [address] + [place] [address] [facility] Unavailable [address] + [place] [address] SARABIA, ALANA Unavailable [address] + [place] [address] [facility] Unavailable [address] + [place] [address] SARABIA, ALANA Unavailable [address] + [place] [address] [facility] Unavailable [address] + [place] [address] ADRIAN, ALANA Unavailable [address] + [place] [address] [facility] Unavailable [address] + [place] [address] ADRIAN, ALANA Unavailable [address] + [place] [address] [facility] Unavailable [address] + [place] [address] ADRIAN, ALANA Unavailable [address] + [place] [address] [facility] Unavailable [address] + [place] [address] ADRIAN, ALANA Unavailable [address] + [place] [address] [facility] Unavailable [address] + [place] [address] ADRIAN, ALANA Unavailable [address] + [place] [address] [facility] Unavailable [address] + [place] [address] ADRIAN, ALANA Unavailable [address] + [place] [address] [facility] Unavailable [address] + [place] [address] SARABIA, ALANA Unavailable [address] + [place] [address] [facility] Unavailable [address] + [place] [address] SARABIA, ALANA Unavailable [address] + [place] [address] [facility] Unavailable [address] + [place] [address] ADRIAN, ALANA Unavailable [address] + [place] [address] R Unavailable Unavailable Unavailable [facility] Unavailable [address] + [place] [address] ADRIAN, ALANA Unavailable [address] + [place] [address] R Unavailable Unavailable Unavailable R Unavailable Unavailable Unavailable Care Team Providers Name Role Phone JULIAN, MOSES Cummings Referring Unavailable MASCI, MOSES A Referring Unavailable MASCI, MOSES A Referring Unavailable MASCI, MOSES A Referring Unavailable MASCI, MOSES A Referring Unavailable MASCI, MOSES A Referring Unavailable MASCI, MOSES Cummings Attending Unavailable MASCI, MOSES A Referring Unavailable MASCI, [...] Attending Unavailable Basali, Bakari Referring Unavailable Maribeth, [place] [facility] Unavailable Masci, Moses Attending Unavailable Masci, Moses Referring Unavailable Maribeth, [facility] Unavailable Masci, Moses Attending Unavailable Maribeth, [facility] Unavailable Masci, Moses Referring Unavailable NataliyaGeovanni Consulting Unavailable BrianRafael Attending Unavailable Maribeth, Sebastien Referring Unavailable Maribeth, [facility] Care Unavailable [facility], [facility] Unavailable Sementi, Juli Admitting Unavailable Sementi, Juli Attending Unavailable Maribeth, [facility] Unavailable Norma Paredes Attending Unavailable Sementi, Juli Admitting Unavailable [facility], [facility] Care Unavailable Sementi, Juli Consulting Unavailable Sementi, Juli Attending Unavailable Sementi, Juli Admitting Unavailable Maribeth, [facility] Care Unavailable Sementi, Juli Consulting Unavailable Sementi, Juli Attending Unavailable Toma Morley Attending Unavailable Maribeth, Sebastien Referring Unavailable Masci, Moses Attending Unavailable Masci, Moses Referring Unavailable Maribeth, [facility] Care Unavailable [facility], [place] [facility] Unavailable AhJudd wilks Attending Unavailable Maribeth, [place] [facility] Unavailable Gbaruk, Kombian Admitting Unavailable Ashelfah, Ghasem Attending Unavailable [place], Kombian Admitting Unavailable [place], [place]ian Attending Unavailable Maribeth, [place] [facility] Unavailable [place], [place]omb[place] Consulting Unavailable [place], Kombian Admitting Unavailable Ashelfah, Ghasem Attending Unavailable Maribeth, [place] [facility] Unavailable Ashelfah, Ghasem Consulting Unavailable Brian, [place] Attending Unavailable Masci, Moses Attending Unavailable Masci, Moses Referring Unavailable Maribeth, [facility] Primary [facility] Unavailable Toma Morley Attending Unavailable Maribeth, Sebastien Referring Unavailable Mino Ramos D.O. Attending Unavailable Mino Ramos D.O. Referring Unavailable Maribeth, Sebastien Primary Care Unavailable ASSESSMENT, HEALTH RISK Attending Unavailable Maribeth, Sebastien Primary Care Unavailable Mino Ramos D.O. Attending Unavailable Mino Ramos D.O. Referring Unavailable Maribeth, Sebastien Primary Care Unavailable Morales Storey Attending Unavailable Mino Ramos D.O. Referring Unavailable Masci, Moses Attending Unavailable Masci, Moses Referring Unavailable Maribeth, Sebastien Primary Care Unavailable Brian, Rafael Attending Unavailable Maribeth, Sebastien Referring Unavailable Maribeth, Sebastien Primary Care Unavailable Morales Storey Attending Unavailable Mino Ramos D.O. Referring Unavailable Brian, [place] Attending Unavailable Brian, [place] Referring Unavailable Maribeth, Sebastien Primary Care Unavailable [...] Consulting Unavailable Pati Jones Attending Unavailable Brian, [place] Attending Unavailable Brian, Rafael Referring Unavailable Masci, Moses Attending Unavailable Masci, Moses Referring Unavailable Maribeth, [place] Primary Care Unavailable David Mclain Consulting Unavailable Julian, Moses Attending Unavailable Maribeth, Sebastien Primary Care Unavailable Terrelli, Moses Attending Unavailable Maribeth, Sebastien Primary Care Unavailable Masci, Moses Referring Unavailable Masci, Moses Attending Unavailable Maribeth, Sebastien Primary Care Unavailable Masci, Moses Referring Unavailable PROBLEMS PROBLEMS DATE TYPE CONDITION / CODE ATTENDING STATUS SOURCE 10/04/2018 Unknown S73.102A - Norma Paredes Active [place] Unspecified sprain of Community left hip, initial Hospital encounter / Repository S73.102A(ICD-10) 09/28/2018 Unknown 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 / Community D75.1(ICD-10) Hospital Repository 06/16/2018 Unknown Z98.61 - Coronary Brian, [place] Active [place] angioplasty status / Community Z98.61(ICD-10) Hospital Repository 06/16/2018 Unknown I10 - Essential Brian, [place] Active [place] (primary) Community hypertension / Hospital I10(ICD-10) Repository 06/16/2018 Unknown I25.10 - Brian, [place] Active [place] Atherosclerotic heart Community disease of [facility] coronary artery 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 / I25.10(ICD-10) 06/16/2018 Unknown R06.09 - Other forms Brian, [place] Active [place] of dyspnea / Community R06.09(ICD-10) Hospital Repository 07/01/2018 Unknown E03.9 - Moses Jordan Active [place] Hypothyroidism, Community unspecified / Hospital E03.9(ICD-10) Repository 06/16/2018 Unknown J44.9 - Chronic RaleighMorales cortes Active [facility] obstructive pulmonary Community disease, unspecified Hospital / J44.9(ICD-10) Repository 10/16/2015 Active Secondary NA Active [facility] polycythemia / Clinic Main D75.1(ICD-10) [place] Repository 04/14/2018 Active Personal history of NA Active [place] 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Clinic Main neoplasm of kidney / [place] Z85.528(ICD-10) Repository 07/02/2018 Unknown R55 - Syncope and Ahmed, Rami Active [place] collapse / Community R55(ICD-10) Hospital Repository 12/04/2017 Unknown G47.33 - Obstructive Brian, Rafael Active [facility] sleep apnea (adult) Community (pediatric) / Hospital G47.33(ICD-10) Repository 12/04/2017 Unknown E78.5 - Brian, Rafael Active [place] Hyperlipidemia, Community unspecified / Hospital E78.5(ICD-10) Repository PROCEDURES PROCEDURES No Procedure Records FoundRESULTS RESULTS CBC-COMPLETE BLOOD CNT Collected: 10/14/2018 Status: F Source: [place] NO DIFF 10:48 AM [facility] TYPE CODE TESTS RESULT OUT [...] 10.4 Performed By: #### L100.0500, L100.4500 #### [facility] [address] [place], [address] DIFFERENTIAL COMMENT Collected: 10/14/2018 Status: F Source: [place] 10:48 AM [facility] REPOSITORY TYPE CODE TESTS RESULT OUT OF RANGE REFERENCE UNITS LAB L100.4500 Normal SMEAR COMMENT Result Comment: ANISOCYTOSIS 1+ Performed By: #### L100.0500, L100.4500 #### [facility] [address] [place], [address] FERRITIN Collected: 10/14/2018 Status: F Source: [place] 10:48 AM [facility] REPOSITORY TYPE CODE TESTS RESULT OUT OF REFERENCE UNITS RANGE LAB L503.6550 26-388 ng/mL Low FERRITIN 8 Performed By: #### L503.6550 #### [facility] [address] [place], [place], [address] CNPN Observed: 10/05/2018 Status: COMPLETED Source: [place] 12:00 AM [facility] REPOSITORY Telephone (HEMAWS) DALE SARABIA ([id number]) 1955 M Date Time Provider Department 10/05/18 [...] FAMILIA: No Please review and advise. Erika Deborah Medrano LPN 10/05/2018 10:41 AM Signed Patient has refills at [facility]. No need for a refill at [...] note 09/25/2018, you increased Hydrea to BID. [facility] needs new Rx so he can fill [...] 12:19 PM Modules accepted: Orders Margaret Medrano GHULAM 10/07/2018 12:51 PM Signed Detailed message left on patient's voicemail. Margaret Medrano GHULAM Allergies As of Date: 10/05/2018 Noted Allergy [...] EMERGENCY DEPARTMENT Observed: 10/04/2018 Status: F Source: [place] SUMMARY 10:00 PM [facility] REPOSITORY [facility] Medical Records Department [address] [address] Emergency Department Summary 10/04/18 1532 MR#: [id number] Acct: [id number] Name: DALE SARABIA Rep #: [id number] : 1955 63 From: Norma Paredes MD [...] Dr. Solis. Patient states he was at [employer] today walking when he had sudden sharp [...] Department Course and Treatment: Patient was given [place] here. On repeat evaluation he is improved. He will be given a short course of [place] for home and will follow up with his physician. Treatment Plan: [] Disposition: Discharge Impression: Left hip pain This note was generated with [employer] dictation software. It may contain incorrect words, [...] problems, contact your Primary Care Provider. Call [facility] ([phone]) or report to the closest Emergency Room. Call 911 if necessary. 10/04/18 2200 <Electronically signed by Norma Paredes MD> Date Norma Paredes MD Cosigner Signature (If Indicated): Date CC: Sebastien Stahl MD DISCHARGE INSTRUCTION Observed: 10/04/2018 Status: F Source: [place] 5:12 PM [facility] REPOSITORY [facility] Medical Records Department [address] [address] Discharge Instruction 10/04/18 1710 MR#: [id number] Acct: [id number] Name: DALE SARABIA Rep #: [id number] : 1955 63 From: Norma Paredes MD PCP: Sebastien Stahl MD Status: REG ER ED Disposition - Plan for ED Patient: Disposition: Home or Assisted Living Chief Complaint: Lower Extremity Injury Instructions: ED Sprain Hip Prescriptions: Hydrocodone Bitart/Apap 5-325 [[place] 5MG-325MG] 1 tablet PO Q6H PRN PRN 3 Days #10 tablet PRN Reason: Pain Referrals: Sebastien Stahl MD [Primary Care Provider] - Bakari Solis MD [STAFF PHYSICIAN] - What to do if you have Problems For any increased pain, shortness of breath, bleeding, nausea or vomiting, chest pain, or any unexpected problems, contact your Primary Care Provider. Call [facility] ([phone]) or report to the closest Emergency Room. Call 911 if necessary. 10/04/18 4472 <Electronically signed by Norma Paredes MD> Date Norma Paredes MD Cosigner Signature (If Indicated): Date CC: Sebastien Stahl MD HIP, UNI W/ PELVIS Observed: 10/04/2018 Status: F Source: [place] 2-3 VIEWS 3:17 PM [facility] REPOSITORY [facility] Imaging Services [address] [address] HIP, UNI W/ Pelvis 2-3 Views MR#: [id number] Acct: [id number] Name: DALE SARABIA Rep #: [id number] : 1955 M 63 From: Gigi Wolf DO PCP: Sebastien Stahl MD Status: REG ER Study: HIP, UNI W/ Pelvis 2-3 Views Date of Exam: 10/04/18 Exam# [id number] Ordering Dr: Nomra Paredes MD STUDY: X-RAY - LEFT HIP [...] CC: Norma Paredes MD; Sebastien Stahl MD Handyperson: Signed CBC W/DIFF, AUTOMATED Collected: 09/17/2018 Status: F Source: [place] 10:39 AM [facility] REPOSITORY TYPE CODE TESTS RESULT OUT [...] Normal 1+ Performed By: #### L100.0100 #### [facility] [address] [facility] [place], [address] HIP, UNI W/ PELVIS Observed: 09/14/2018 Status: F Source: [place] 2-3 VIEWS 1:26 PM [facility] REPOSITORY [facility] Imaging Services [address] [place] [address] HIP, UNI W/ Pelvis 2-3 Views MR#: [id number] Acct: [id number] Name: DALE SARABIA Rep #: [id number] : 1955 63 From: Vipul Prieto MD PCP: Sebastien Stahl MD Status: REG CLI Study: HIP, UNI W/ Pelvis 2-3 Views Date of Exam: 09/14/18 Exam# [id number] Ordering Dr: Bakari Solis MD STUDY: X-RAY [...] CC: Bakari Solis MD; Sebastien Stahl MD Handyperson: Signed PROGRESS Observed: 09/01/2018 Status: COMPLETED Source: [place] 11:20 AM [facility] REPOSITORY HNO ID: [id number] Author: Moses Jordan Service: (none) Author Type: [...] to evaluation here. I reviewed CBCs from [facility]. Hgb=18.4 gm/dl 07/07. CT A/P in [...] No jaundice or rash. No petechiae. NEUROLOGIC: fisher eel spear II-XII are grossly intact. No focal motor [...] the care of his general practitioner and interpreter for management of his CAD and modifiable [...] DO CNOVSP Observed: 09/01/2018 Status: COMPLETED Source: [place] 11:10 AM [facility] REPOSITORY Visit (SP) Office (HEMAWS) DALE SARABIA ([id number]) 1955 M Date Time Provider Department 09/01/18 11:10 AM MOSES JORDAN During your visit today, we recorded the following information about you: Temperature Pulse Blood pressure Weight 97.6 degrees 79/minute 133/70 130.9 kg Moses Jordan, 09/01/2018 11:52 AM Signed Diagnosis: 1) Polycythemia. [...] to evaluation here. I reviewed CBCs from [facility]. Hgb=18.4 gm/dl 07/07. CT A/P in [...] No jaundice or rash. No petechiae. NEUROLOGIC: fisher eel spear II-XII are grossly intact. No focal motor [...] the care of his general practitioner and interpreter for management of his CAD and modifiable [...] Moses Jordan DO Referring Provider: MOSES JORDAN [[id number]] Allergies As of Date: 09/01/2018 Noted Allergy [...] [place] CBC AND DIFF [SQWCBCDF] Order #: [id number] STANDING FERRITIN BLD [SQFERR] Order #: [id number] STANDING apixaban (ELIQUIS) 5 mg tab(s)Take 1 [...] 08/31/2018 Status: F Source: [place] 10:38 AM [facility] REPOSITORY TYPE CODE TESTS RESULT OUT OF REFERENCE UNITS RANGE LAB L503.6550 26-388 ng/mL Low FERRITIN 9 Performed By: #### L503.6550 #### [facility] [address] [place], [address] CBC-COMPLETE BLOOD CNT Collected: 08/31/2018 Status: F Source: [place] NO DIFF 10:38 AM [facility] REPOSITORY TYPE CODE TESTS RESULT OUT [...] performed Performed By: #### L100.0500, L100.4500 #### [facility] [address] [place], [place], [address] DIFFERENTIAL COMMENT Collected: 08/31/2018 Status: F Source: [place] 10:38 AM [facility] REPOSITORY TYPE CODE TESTS RESULT OUT OF RANGE REFERENCE UNITS LAB L100.4500 Normal SMEAR COMMENT COMMENT Result Comment: 2+ MICROCYTOSIS RARE POLYCHROMASIA Performed By: #### L100.0500, L100.4500 #### [facility] [address] [facility] [address] [place], [place], [address] CBC-COMPLETE BLOOD CNT Collected: 08/03/2018 Status: F Source: [place] NO DIFF 2:27 PM [facility] REPOSITORY TYPE CODE TESTS RESULT OUT [...] 248 Performed By: #### L100.0500, L100.4500 #### [facility] [address] [place], [address] DIFFERENTIAL COMMENT Collected: 08/03/2018 Status: F Source: [place] 2:27 PM [facility] REPOSITORY TYPE CODE TESTS RESULT OUT OF RANGE REFERENCE UNITS LAB L100.4500 Normal SMEAR COMMENT Result Comment: SLIDE SCANNED - 1+ ANISO, 1+ LARGE PLTS, 1+ HYPOCHROMIA. Performed By: #### L100.0500, L100.4500 #### [facility] [address] [place], [address] FERRITIN Collected: 08/03/2018 Status: F Source: [place] 2:27 PM [facility] REPOSITORY TYPE CODE TESTS RESULT OUT OF REFERENCE UNITS RANGE LAB L503.6550 26-388 ng/mL Low FERRITIN 10 Performed By: #### L503.6550 #### [facility] [address] [place], [address] CBC-COMPLETE BLOOD CNT Collected: 07/03/2018 Status: F Source: [place] NO DIFF 11:07 AM [facility] REPOSITORY Order Comment: KACEY WANTS THE ALLERY [...] 191 Performed By: #### L100.0500, L100.4500 #### [facility] [address] [place], [address] DIFFERENTIAL COMMENT Collected: 07/03/2018 Status: F Source: [place] 11:07 AM [facility] REPOSITORY Order Comment: KACEY WANTS THE ALLERY TESTING DEBBIE WANTS THE CBC FERRITIN TYPE CODE TESTS RESULT OUT OF RANGE REFERENCE UNITS LAB L100.4500 Normal SMEAR COMMENT COMMENT Result Comment: SLIDE SCANNED - 1+ TARGET CELLS, RARE RBC FRAGMENTS, 1+ LARGE PLTS. Performed By: #### L100.0500, L100.4500 #### [facility] [address] [place], [address] FERRITIN Collected: 07/03/2018 Status: F Source: [place] 11:07 AM [facility] REPOSITORY Order Comment: KACEY WANTS THE ALLERY TESTING DEBBIE WANTS THE CBC FERRIT[place] TYPE CODE TESTS RESULT OUT OF REFERENCE UNITS RANGE LAB L503.6550 26-388 ng/mL Low FERRITIN 8 Performed By: #### L503.6550 #### [facility] [address] [place], [address] ALLERGEN, FOOD PROFILE Collected: 07/03/2018 Status: F Source: [place] 11:04 AM [facility] REPOSITORY Order Comment: KACEY WANTS THE ALLERY [...] 07/03/2018 Status: F Source: [place] 11:04 AM [facility] REPOSITORY Order Comment: KACEY WANTS THE ALLERY [...] 07/03/2018 Status: F Source: [place] 11:04 AM [facility] REPOSITORY Order Comment: KACEY WANTS THE ALLERY TESTING DEBBIE WANTS THE CBC F[place]IT[place] TYPE CODE TESTS RESULT OUT OF RANGE REFERENCE UNITS LAB L5530.1040 Class 0 kU/L Normal ONION <0.10 Result Comment: Performed at: - [facility] [id number] Rn Family: Goyo Moreno MD, Phone: [phone] Performed By: #### L5500.0410, L5530.0589, L5530.1039, L5530.1339, L5530.1419, L5530.1589, L5530.1609 #### [facility] (refer to report for specific site) refer to report for address and phone number GAMA MCRAE Collected: 07/03/2018 Status: F Source: [place] 11:04 AM [facility] REPOSITORY Order Comment: KACEY WANTS THE ALLERY [...] 07/03/2018 Status: F Source: [place] 11:04 AM [facility] REPOSITORY Order Comment: KACEY WANTS THE ALLERY [...] 07/03/2018 Status: F Source: [place] 11:04 AM [facility] REPOSITORY Order Comment: KACEY WANTS THE ALLERY [...] 07/03/2018 Status: F Source: [place] 11:04 AM [facility] REPOSITORY Order Comment: KACEY WANTS THE ALLERY [...] Collected: 07/03/2018 Status: F Source: [place] 11:04 [facility] REPOSITORY Order Comment: KACEY WANTS THE ALLERY [...] Urine Normal <0.10 Result Comment: Performed at: [facility] [id number] Rn Family: Goyo Moreno MD, Phone: [phone] LAB L5560.0050 Class 0 kU/L KIR[place], Normal [...] SORREL <0.10 LAB L5580.0360 Class 0 kU/L [place] Normal THISTLE <0.10 Performed By: #### L5500.0700 #### [facility] (refer to report for specific site) refer to report for address and phone number IMMUNOGLOBULIN E Collected: 07/03/2018 Status: F Source: [place] 11:04 AM [facility] REPOSITORY Order Comment: KACEY WANTS THE ALLERY TESTING DEBBIE WANTS THE CBC FERRIT[place] TYPE CODE TESTS RESULT OUT OF RANGE REFERENCE UNITS LAB L3200.1600 0-100 IU/mL Normal IMMUNO E < 2 Result Comment: Performed at: - [facility] [id number] Rn Family: Goyo Moreno MD, Phone: [phone] Performed By: #### L3200.1600 #### [facility] (refer to report for specific site) refer to report for address and phone number BASIC METABOLIC Collected: 06/26/2018 Status: F Source: [place] PROFILE (BMP) 10:44 AM [facility] REPOSITORY Order Comment: Send Results To: PCP [...] GAP 8 Performed By: #### L500.2500 #### [facility] [address] [place], [address] 12 LEAD ELECTROCARDIOGRAM Observed: 06/24/2018 Status: F Source: [place] 9:32 AM [facility] REPOSITORY [facility] Cardiovascular Services [address] [address] 12 Lead EKG 06/21/18 1503 MR#: [id number] Acct: [id number] Name: DALE SARABIA Rep #: [id number] : 1955 63 From: Rafael Solorio MD Attending Dr: Isiah Cannon MD Status: DIS IN Ordering Dr: Isiah Cannon MD Date: 06/21/18 Location: [facility] Sex: M C Admitted: 06/21/18 Test Reason [...] ECG Confirmed by RAFAEL SOLORIO MD ([id number]), photograph editor RIMMA LAZARO ([id number]) on 06/24/2018 9:31:48 AM Referred By: Confirmed By:RAFAEL SOLORIO MD 06/24/18 09 Date Rafael Solorio MD CC: Isiah Cannon MD; Sebastien Stahl MD Signed VENOUS DUPLEX LOWER Observed: 06/24/2018 Status: F Source: LEONID EXTREMITY 7:59 AM [facility] REPOSITORY [facility] Cardiovascular Services [address] [place] [address] Venous Duplex US - Elia Extrem 06/22/18 1353 MR#: [id number] Acct: [id number] Name: DALE SARABIA Rep #: [id number] : 1955 63 From: Bryan Garcia MD Attending Dr: Isiah Cannon MD Status: DIS IN Ordering Dr: Isiah Cannon MD Date: 06/22/18 Location: [facility] Sex: M C Admitted: 06/21/18 Reason For [...] Dictated: 06/22/18 1353 Date Transcribed: 06/24/18 075 Handyperson: Signed DISCHARGE SUMMARY Observed: 06/23/2018 Status: F Source: RINGOES 2:35 PM [facility] REPOSITORY [facility] Medical Records Department [address] [address] Discharge Summary 06/23/18 1428 MR#: [id number] Acct: [id number] Name: DALE SARABIA Rep #: [id number] : 1955 63 From: Isiah Cannon MD PCP: Sebastien Stahl MD Status: DIS IN Y Location: [place] [id number] Discharge Date and Diagnosis Date of Admission: [...] Reviewed 06/19/18 @ 09:48 by Toma Morley, PLANT FACILITIES TECHNICIAN-C) CLARK (dyspnea on exertion) (Chronic) 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 Lower extremity venous Doppler was done but [...] applicable Code Visit Inpatient E AND M: 58924 Disch Hosp 06/23/18 1435 <Electronically signed by Isiah Cannon MD> Date Isiah Cannon MD Cosigner Signature (if applicable): Date CC: Isiah Cannon MD; Sebastien Stahl MD Signed DISCHARGE INSTRUCTION Observed: 06/23/2018 Status: F Source: RINGOES 10:34 AM [facility] REPOSITORY [facility] Medical Records Department [address] [place] [address] Instructions for Home/Discharge Instructions 06/23/18 1032 MR#: [id number] Acct: [id number] Name: DALE SARABIA Rep #: [id number] : 1955 63 From: Isiah Cannon MD PCP: Sebastien Stahl MD Status: ADM IN - Discharge Diagnoses Current Active Problems: Current Active and Chronic Problems (Last Reviewed 06/19/18 @ 09:48 by Toma Morley PLANT FACILITIES TECHNICIAN-C) Left pulmonary artery PE (Acute) You will [...] 06/23/2018 Status: F Source: LEONID 6:47 AM [facility] REPOSITORY TYPE CODE TESTS RESULT OUT OF REFERENCE UNITS RANGE LAB L501.080 70-110 mg/dL High BEDSIDE GLU 160 Result Comment: MANAGEMENT OF PATIENT CARE PER NURSING PROTOCOL Performed By: #### L501.080 #### [facility] Laboratory Point of Care [address] [place], [place] [address] BASIC METABOLIC Collected: 06/23/2018 Status: F Source: LEONID PROFILE (BMP) 5:20 AM [facility] REPOSITORY TYPE CODE TESTS RESULT OUT [...] GAP 7 Performed By: #### L500.2500 #### [facility] [address] [place], [place], [address] BEDSIDE GLUCOSE Collected: 06/22/2018 Status: F Source: LEONID 10:36 PM [facility] REPOSITORY TYPE CODE TESTS RESULT OUT OF REFERENCE UNITS RANGE LAB L501.080 70-110 mg/dL High BEDSIDE GLU 155 Result Comment: MANAGEMENT OF PATIENT CARE PER NURSING PROTOCOL Performed By: #### L501.080 #### [facility] Laboratory Point of Care [address] [place] [address] BEDSIDE GLUCOSE Collected: 06/22/2018 Status: F Source: LEONID 4:13 PM [facility] REPOSITORY TYPE CODE TESTS RESULT OUT OF REFERENCE UNITS RANGE LAB L501.080 70-110 mg/dL High BEDSIDE GLU 173 Result Comment: MANAGEMENT OF PATIENT CARE PER NURSING PROTOCOL Performed By: #### L501.080 #### [facility] Point of Care [address] [place] [address] BEDSIDE GLUCOSE Collected: 06/22/2018 Status: F Source: LEONID 11:01 AM [facility] REPOSITORY TYPE CODE TESTS RESULT OUT OF REFERENCE UNITS RANGE LAB L501.080 70-110 mg/dL High BEDSIDE GLU 208 Result Comment: MANAGEMENT OF PATIENT CARE PER NURSING PROTOCOL Performed By: #### L501.080 #### [facility] Laboratory Point of Care [address] [place] [address] PARTIAL THROMBOPLAST Collected: 06/22/2018 Status: F Source: LEOIND TIME 10:00 AM [facility] REPOSITORY TYPE CODE TESTS RESULT OUT OF REFERENCE UNITS RANGE LAB L300.4310 24.1-36.2 Seconds High PTT 58.4 Performed By: #### L300.4310 #### [facility] [address] [place], [address] BEDSIDE GLUCOSE Collected: 06/22/2018 Status: F Source: LEONID 6:52 AM [facility] REPOSITORY TYPE CODE TESTS RESULT OUT OF REFERENCE UNITS RANGE LAB L501.080 70-110 mg/dL High BEDSIDE GLU 162 Result Comment: MANAGEMENT OF PATIENT CARE PER NURSING PROTOCOL Performed By: #### L501.080 #### [facility] Point of Care [address] [place] [address] BASIC METABOLIC Collected: 06/22/2018 Status: F Source: LEONID PROFILE (BMP) 5:20 AM [facility] REPOSITORY TYPE CODE TESTS RESULT OUT [...] GAP 10 Performed By: #### L500.2500 #### [facility] [address] [place], [address] CBC-COMPLETE BLOOD CNT Collected: 06/22/2018 Status: F Source: RINGOES NO DIFF 5:20 AM [facility] REPOSITORY TYPE CODE TESTS RESULT OUT [...] 203 Performed By: #### L100.0500, L100.4500 #### [facility] [address] [place], [address] DIFFERENTIAL COMMENT Collected: 06/22/2018 Status: F Source: LEONID 5:20 AM [facility] REPOSITORY TYPE CODE TESTS RESULT OUT OF RANGE REFERENCE UNITS LAB L100.4500 Normal SMEAR COMMENT SCAN Result Comment: LARGE PLATELETS OBSERVED. HYPOCHROMASIA 1+ MICROCYTOSIS 1+ POLYCHROMASIA 1+ Performed By: #### L100.0500, L100.4500 #### [facility] [address] [place], [address] HEMOGLOBIN A1C Collected: 06/22/2018 Status: F Source: RINGOES 5:20 AM [facility] REPOSITORY TYPE CODE TESTS RESULT OUT OF RANGE REFERENCE UNITS LAB L501.9985 4.2-6.3 % High HGB A1C 6.9 Performed By: #### L501.9985 #### [facility] [address] [place], [address] BNP,B-TYPE NATRIURETIC Collected: 06/22/2018 Status: F Source: LEONID PEPTIDE 5:20 AM [facility] REPOSITORY TYPE CODE TESTS RESULT OUT OF RANGE REFERENCE UNITS LAB L503.6620 0-100 pg/mL Normal B-TYPE 11.7 BRIE PEP Performed By: #### L503.6620 #### [facility] [address] [place], [address] PARTIAL THROMBOPLAST Collected: 06/22/2018 Status: F Source: LEONID TIME 2:00 AM [facility] REPOSITORY Order Comment: Comments: On IV heparin drip TYPE CODE TESTS RESULT OUT OF REFERENCE UNITS RANGE LAB L300.4310 24.1-36.2 Seconds High alert PTT 102.5 Result Comment: CRITICAL VALUE VERIFIED. CALLED TO BRAULIO KAPOOR 06/22/18 Marcus Jordan. RESULTS READ BACK BY SAME . Performed By: #### L300.4310 #### [facility] [address] [place], [address] TROPONIN-I Collected: 06/22/2018 Status: F Source: RINGOES 2:00 AM [facility] REPOSITORY Order Comment: 'TROP' Serial specimen #1, #2 or #3: 2 TYPE CODE TESTS RESULT OUT OF RANGE REFERENCE UNITS LAB L501.4010 <0.045 ng/mL Normal < 0.015 TROPONIN-I Result Comment: TROPONIN-I EXPECTED VALUES <0.045 Negative 0.045 - 0.590 Consistent with Cardiac Damage > OR = 0.600 Critical Value Not every elevated troponin is indicative of AK. These values should be used with clinical judgement in examining the patient's clinical picture for diagnosis. To establish a diagnosis of AK versus myocardial injury, there must be a demonstrated rise and/or fall in the troponin values, in addition to ischemic symptoms, EKG changes, new regional wall motion abnormality, and/or angiographical evidence. PLEASE NOTE: REFERENCE RANGES EDITED 18 Performed By: #### L501.4010 #### [facility] [address] [place], [address] BEDSIDE GLUCOSE Collected: 06/21/2018 Status: F Source: RINGOES 10:57 PM [facility] REPOSITORY TYPE CODE TESTS RESULT OUT OF REFERENCE UNITS RANGE LAB L501.080 70-110 mg/dL High BEDSIDE GLU 219 Result Comment: MANAGEMENT OF PATIENT CARE PER NURSING PROTOCOL Performed By: #### L501.080 #### [facility] Point of Care [address] [facility] [place] [address] TROPONIN-I Collected: 06/21/2018 Status: F Source: RINGOES 8:30 PM [facility] REPOSITORY Order Comment: 'TROP' Serial specimen #1, #2 or #3: 1 TYPE CODE TESTS RESULT OUT OF RANGE REFERENCE UNITS LAB L501.4010 <0.045 ng/mL Normal 0.016 TROPONIN-I Result Comment: TROPONIN-I EXPECTED VALUES <0.045 Negative 0.045 - 0.590 Consistent with Cardiac Damage > OR = 0.600 Critical Value Not every elevated troponin is indicative of AK. These values should be used with clinical judgement in examining the patient's clinical picture for diagnosis. To establish a diagnosis of AK versus myocardial injury, there must be a demonstrated rise and/or fall in the troponin values, in addition to ischemic symptoms, EKG changes, new regional wall motion abnormality, and/or angiographical evidence. PLEASE NOTE: REFERENCE RANGES EDITED 18 Performed By: #### L501.4010 #### [facility] [address] 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 [...] Reviewed 06/19/18 @ 09:48 by Toma Morley PLANT FACILITIES TECHNICIAN-C) CLARK (dyspnea on exertion) (Chronic) 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) PCI [...] Reviewed 06/19/18 @ 09:48 by Toma Morley, PLANT FACILITIES TECHNICIAN-C) 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) I25.10 [...] F32.9 Osteoarthritis, knee M17.10 Sciatica M54.30 Other penitentiary (current) 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 (Resolved) Z79.899 Allergies theophylline Allergy (Verified 06/16/18 09:39) Unknown Home Medications: Ambulatory Orders Medication Instructions Recorded Aspirin [Aspirin, Baby] 81 mg PO DAILY@0800 03/17/16 Tamsulosin HCl [Flomax] 0.4 mg PO DAILY 03/17/16 Surgical History: Surgical History (Last Reviewed 06/19/18 @ 09:48 by Toma Morley NP-C) History of coronary artery stent placement (Resolved) [...] placement (Resolved 05/24/11) Influenza A (Resolved) 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 As the kidney function improves, patient can [...] 70.2 H, Lymph % (Auto) 15.5 L, [place] % (Auto) 7.1, Eos % (Auto) 6.2 [...] base. Code Visit Inpatient E AND M: 00325 Init Hosp L3 06/21/18 1359 <Electronically signed by Isiah Cannon MD> Date Isiah Cannon MD Cosigner Signature: Date (if applicable) CC: Isiah Cannon MD; Sebastien Stahl MD Signed EMERGENCY DEPARTMENT Observed: 06/21/2018 Status: F Source: RINGOES SUMMARY 6:38 PM [facility] REPOSITORY [facility] Medical Records Department [address] [place] [address] Emergency Department Summary 06/21/18 1835 MR#: [id number] Acct: [id number] Name: DALE SARABIA Rep #: [id number] : 1955 63 From: Ronnie Riley MD [...] Pulmonary embolism This note was generated with [employer] dictation software. It may contain incorrect words, [...] problems, contact your Primary Care Provider. Call [facility] ([phone]) or report to the closest Emergency Room. Call 911 if necessary. 06/21/18 8448 <Electronically signed by Ronnie Riley MD> Date Ronnie Riley MD Cosigner Signature (If Indicated): Date CC: Sebastien Stahl MD PARTIAL THROMBOPLAST Collected: 06/21/2018 Status: F Source: LEONID TIME 6:03 PM [facility] REPOSITORY TYPE CODE TESTS RESULT OUT OF RANGE REFERENCE UNITS LAB L300.4310 24.1-36.2 Seconds Normal PTT 28.6 Performed By: #### L300.4310 #### [facility] [address] [place], [address] CTA ABDOMEN W/WO Observed: 06/21/2018 Status: F Source: LEONID CONTRAST 3:40 PM [facility] REPOSITORY [facility] Imaging Services [address] [place] [address] CTA Abdomen W/WO Contrast MR#: [id number] Acct: [id number] Name: DALE SARABIA Rep #: [id number] : 1955 63 From: Claudette Mendoza MD PCP: Sebastien Stahl MD Status: ADM IN Study: CTA Abdomen W/WO Contrast Date of Exam: 06/21/18 Exam# [id number] Ordering Dr: Ronnie Riley MD STUDY: CTA [...] Negative for significant arterial stenosis in the nvcev-as-arxj. N.B. : The above information has been [...] CC: Ronnie Riley MD; Sebastien Stahl MD Handyperson: Signed CTA CHEST W/WO Observed: 06/21/2018 Status: F Source: LEONID CONTRAST 3:36 PM [facility] REPOSITORY [facility] Imaging Services [address] [place] [address] CTA Chest W/WO Contrast MR#: [id number] Acct: [id number] Name: DALE SARABIA Rep #: [id number] : 1955 M 63 From: Claudette Mendoza MD PCP: Sebastien Stahl MD Status: REG ER Study: CTA Chest W/WO Contrast Date of Exam: 06/21/18 Exam# [id number] Ordering Dr: Ronnie Riley MD STUDY: CTA [...] Negative for significant arterial stenosis in the mfmmc-if-cggq. N.B. : The above information has been [...] CC: Ronnie Riley MD; Sebastien Stahl MD Handyperson: Signed CHEST 1 VIEW Observed: 06/21/2018 Status: F Source: RINGOES (PORTABLE) 3:29 PM [facility] REPOSITORY [facility] Imaging Services [address] [place] [address] Chest 1 View (Portable) MR#: [id number] Acct: [id number] Name: DALE SARABIA Rep #: [id number] : 1955 63 From: Claudette Mendoza MD PCP: Sebastien Stahl MD Status: PRE ER Study: Chest 1 View (Portable) Date of Exam: 06/21/18 Exam# [id number] Ordering Dr: Ronnie Riley MD STUDY: X-RAY [...] CC: Ronnie Riley MD; Sebastien Stahl MD Handyperson: Signed CBC W/DIFF, AUTOMATED Collected: 06/21/2018 Status: F Source: LEONID 3:10 PM [facility] REPOSITORY TYPE CODE TESTS RESULT OUT [...] Normal RARE Performed By: #### L100.0100 #### [facility] [address] [facility] [place], [address] PROTHROMBIN TIME W/INR Collected: 06/21/2018 Status: F Source: RINGOES 3:10 PM [facility] REPOSITORY TYPE CODE TESTS RESULT OUT OF RANGE REFERENCE UNITS LAB L300.4150 11.7-14.9 SECONDS Normal PROTIME 13.8 LAB L300.4200 Normal INR 1.1 Performed By: #### L300.3900 #### [facility] [address] [facility] [place], [address] BASIC METABOLIC Collected: 06/21/2018 Status: F Source: RINGOES PROFILE (BMP) 3:10 PM [facility] REPOSITORY TYPE CODE TESTS RESULT OUT [...] 8 Performed By: #### L500.2500, L501.4010 #### [facility] [address] [facility] [place], [place], [address] TROPONIN-I Collected: 06/21/2018 Status: F Source: RINGOES 3:10 PM [facility] REPOSITORY TYPE CODE TESTS RESULT OUT OF RANGE REFERENCE UNITS LAB L501.4010 <0.045 ng/mL Normal 0.019 TROPONIN-I Result Comment: TROPONIN-I EXPECTED VALUES <0.045 Negative 0.045 - 0.590 Consistent with Cardiac Damage > OR = 0.600 Critical Value Not every elevated troponin is indicative of AK. These values should be used with clinical judgement in examining the patient's clinical picture for diagnosis. To establish a diagnosis of AK versus myocardial injury, there must be a demonstrated rise and/or fall in the troponin values, in addition to ischemic symptoms, EKG changes, new regional wall motion abnormality, and/or angiographical evidence. PLEASE NOTE: REFERENCE RANGES EDITED 18 Performed By: #### L500.2500, L501.4010 #### [facility] [address] [place], [place], [address] BNP,B-TYPE NATRIURETIC Collected: 06/21/2018 Status: F Source: RINGOES PEPTIDE 3:10 PM [facility] REPOSITORY TYPE CODE TESTS RESULT OUT OF RANGE REFERENCE UNITS LAB L503.6620 0-100 pg/mL Normal B-TYPE 5.8 BRIE PEP Performed By: #### L503.6620 #### [facility] [address], [address] PULMONARY VISIT REPORT Observed: 06/19/2018 Status: F Source: LEONID 10:27 AM [facility] REPOSITORY [facility] [address] [place] [address] OFFICE VISIT Date of Service: 06/18/18 MR#: [id number] Acct: [id number] Name: DALE SARABIA Rep #: [id number] : 1955 Provider: Toma Morley Age/Sex: 63/M [place] [facility] [place] Status: Signed Assessment AND Plan 1. Chronic [...] th or wheezing Follow Up 2 Weeks (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) Coding Level of Care Code Off vis,est,level 4 Diagnoses CAD (coronary artery disease) I25.10 CLARK (dyspnea on exertion) R06.09 Postsurgical percutaneous transluminal coronary angioplasty (PTCA) status Z98.61 Hypertension I10 Coding Level of Care Code Off vis,est,level 4 Diagnoses CAD (coronary artery disease) I25.10 CLARK (dyspnea on exertion) R06.09 Postsurgical percutaneous transluminal coronary angioplasty (PTCA) status Z98.61 Hypertension I10 06/16/18 1004 <Electronically signed by Rfaael Solorio MD> Date Rafael Solorio MD Cosigner Signature: Date (if applicable) CC: Sebastien Stahl MD 12 LEAD EKG PERFORMED Observed: 06/16/2018 Status: F Source: [place] [facility] [place]:03 AM [facility] REPOSITORY [facility] [address] [place] [address] 12 Lead EKG performed by [facility] 06/16/18 1002 MR#: [id number] Acct: [id number] Name: DALE SARABIA Rep #: [id number] : 1955 63 From: Rafael Solorio MD Attending Dr: Rafael Solorio MD Status: DEP AMB Ordering Dr: Rafael Solorio MD Date: 06/16/18 [place] [facility] [place] M C Admitted: BMS/12 Lead EKG performed by [facility] ECG Report Interpretation Sinus Tachycardia -Left axis -anterior fascicular block. Low voltage with rightward P-axis and rotation -possible pulmonary disease. ABNORMAL Electronically signed on 09/02/2018 at 16:36 by Rafael Soloriowood Software Version [id number] 09/02/18 1640 Date Rafael Solorio MD CC: Sebastien Stahl MD Date Dictated: 06/16/18 1002 Date Transcribed: 06/16/18 1002 Handyperson: CO Signed CBC-COMPLETE BLOOD CNT Collected: 06/10/2018 Status: F Source: LEONID NO DIFF 10:41 AM [facility] REPOSITORY TYPE CODE TESTS RESULT OUT [...] 200 Performed By: #### L100.0500, L100.4500 #### [facility] [address] [place], [address] DIFFERENTIAL COMMENT Collected: 06/10/2018 Status: F Source: RINGOES 10:41 AM [facility] REPOSITORY TYPE CODE TESTS RESULT OUT OF RANGE REFERENCE UNITS LAB L100.4500 Normal SMEAR COMMENT COMMENT Result Comment: SLIDE SCANNED - 1+ ANISO, 1+ LARGE PLTS. Performed By: #### L100.0500, L100.4500 #### [facility] [address] [place], [address] THYROID STIM HORMONE Collected: 06/10/2018 Status: F Source: RINGOES (TSH) 10:41 AM [facility] REPOSITORY Order Comment: Has Patient had X-rays with Contrast this admission? N Is Patient on Heparin? N TYPE CODE TESTS RESULT OUT OF RANGE REFERENCE UNITS LAB L501.9520 0.358-3.74 uIU/mL Normal TSH 0.70 Performed By: #### L501.9520, L503.6550, L506.0400 #### [facility] [address] [place], [place], [address] FERRITIN Collected: 06/10/2018 Status: F Source: RINGOES 10:41 AM [facility] REPOSITORY Order Comment: Has Patient had X-rays with Contrast this admission? N Is Patient on Heparin? N TYPE CODE TESTS RESULT OUT OF REFERENCE UNITS RANGE LAB L503.6550 26-388 ng/mL Low FERRITIN 10 Performed By: #### L501.9520, L503.6550, L506.0400 #### [facility] [address] [place], [address] T4 FREE DIRECT Collected: 06/10/2018 Status: F Source: RINGOES 10:41 AM [facility] REPOSITORY Order Comment: Has Patient had X-rays with Contrast this admission? N Is Patient on Heparin? N TYPE CODE TESTS RESULT OUT OF RANGE REFERENCE UNITS LAB L506.0400 0.76-1.46 ng/dL Normal T4 FREE 1.18 DIRECT Performed By: #### L501.9520, L503.6550, L506.0400 #### [facility] [address] [place], [address] 6 MINUTE WALK TEST Observed: 06/02/2018 Status: F Source: RINGOES 12:23 PM [facility] REPOSITORY [facility] Pulmonary Services/Neurology [address] [facility] [place] [address] MR#: [id number] Acct: [id number] Name: DALE SARABIA Rep #: [id number] : 1955 63 From: Morales Storey MD Referring Dr: Mino Ramos D.O. Date: Ordering Dr: Sex: M C Location: PSN PSN 6 Minute Walk Test - 6 Minute Walk Test 6 Minute Walk Test: 6 Minute Walk Test PSN:6-Minute Walk Test Start: 06/02/18 08:41 Freq: Status: Active Protocol: RESP.6MINW Document 06/02/18 08:42 JLA (Rec: 06/02/18 08:47 JLA [id number]) 6 Minute Walk Test Date Performed 06/02/18 [...] Date Dictated: 06/02/18 1222 Date Transcribed: 06/02/181221 Handyperson: Morales Storey Signed URINALYSIS, EMPLOYEE Collected: 05/27/2018 Status: F Source: LEONID 10:18 AM [facility] REPOSITORY TYPE CODE TESTS RESULT OUT [...] ESTERASE Negative Performed By: #### L400.0100 #### [facility] [address] [place], [address] CBC, EMPLOYEE Collected: 05/27/2018 Status: F Source: [place] 10:18 AM [facility] REPOSITORY TYPE CODE TESTS RESULT OUT [...] Lymph 1.79 Performed By: #### L100.0200 #### [facility] [address] [place], [place], [address] EMPLOYEE PROFILE Collected: 05/27/2018 Status: F Source: [place] 10:18 [facility] REPOSITORY TYPE CODE TESTS RESULT OUT [...] LDH 174 Performed By: #### L500.2900 #### [facility] [address] [place], [place], [address] NICOTINE URINE DRUG Collected: 05/27/2018 Status: F Source: [place] SCREEN 10:18 AM [facility] REPOSITORY TYPE CODE TESTS RESULT OUT [...] of Nicotine. Performed By: #### L505.6240 #### [facility] [address] [address] [place], [place], [address] HEP B SURFACE Collected: 05/27/2018 Status: F Source: [place] ANTIBODIES EMP 10:18 AM [facility] REPOSITORY Order Comment: SEND RESULTS TO [employer] [id number] TYPE CODE TESTS RESULT OUT OF RANGE REFERENCE UNITS LAB L3100.0537 . Normal Hep B Reactive Del AB Result Comment: Non Reactive: Inconsistent with immunity, less than 10 mIU/mL Reactive: Consistent with immunity, greater than 9.9 mIU/mL Performed at: - [facility] [address] [id number] Rn Family: Andrew Gorman PhD, Phone: [phone] Performed By: #### L3100.0537 #### [facility] (refer to report for specific site) refer to report for address and phone number PULMONARY FUNCTION Observed: 05/21/2018 Status: F Source: [place] REPORT COMP 11:24 AM [facility] REPOSITORY [facility] Pulmonary Services/Neurology [address] [address] MR#: [id number] Acct: [id number] Name: DALE SARABIA Rep #: [id number] : 1955 63 From: Morales Storey MD Referring Dr: Mino Ramos D.O. Status: REG CLI Ordering Dr: Date: Location: [facility] Sex: M C COMPLETE PULMONARY FUNCTION TEST INTERPRETATION Brief HPI: Patient is a 63 year old male, currently under the care of Dr. Ramos, who presents to [facility] for complete pulmonary function tests secondary [...] has been worsening compared to previous study 05/21/184 <Electronically signed by Morales Storey MD> Date Morales Storey MD CC: Morales Storey MD; Mino Ramos D.O.; Sebastien Stahl MD Date Dictated: 05/21/181120 Date Transcribed: 05/21/181120 Handyperson: JOHN Signed PULMONARY VISIT REPORT Observed: 05/19/2018 Status: F Source: [place] 2:43 PM [facility] REPOSITORY [facility] [place] [address] [place] [address] OFFICE VISIT Date of Service: 05/19/18 MR#: [id number] Acct: [id number] Name: DALE SARABIA Rep #: [id number] : 1955 Provider: Toma Morley Age/Sex: 63/M Location: [facility] Status: Signed Assessment AND Plan 1. Chronic [...] compliance with Lasix as prescribed by his interpreter. Follow-up in 2 weeks. Plan Detail Follow Up 3 Weeks (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 [place], [place], [address] DIFFERENTIAL COMMENT Collected: 05/13/2018 Status: F Source: [place] 10:21 AM [facility] REPOSITORY TYPE CODE TESTS RESULT OUT OF RANGE REFERENCE UNITS LAB L100.4500 Normal SMEAR COMMENT S Result Comment: ANISOCYTOSIS 2+ OVALOCYTES 1+ Performed By: #### L100.0500, L100.4500 #### [facility] [address] [place], [address] FERRITIN Collected: 05/13/2018 Status: F Source: [place] 10:21 AM [facility] REPOSITORY TYPE CODE TESTS RESULT OUT OF REFERENCE UNITS RANGE LAB L503.6550 26-388 ng/mL Low FERRITIN 10 Performed By: #### L503.6550 #### [facility] [address] [place], [address] PROGRESS Observed: 04/14/2018 Status: COMPLETED Source: [place] 1:00 PM [facility] REPOSITORY HNO ID: [id number] Author: Renee Armstrong Service: (none) Author Type: [...] KIDNEY WO/W Observed: 04/14/2018 Status: F Source: [place] IVCON 12:05 PM [facility] REPOSITORY * * *Final Report* * * DATE OF EXAM: Apr 14 2018 12:05PM [facility] 0546 - CT KIDNEY WO/W IVCON / [...] IN THE ABDOMEN. LEFT NEPHROLITHIASIS. NO HYDRONEPHROSIS. Handyperson: PSCB Transcribe Date/Time: Apr 15 2018 10:15A Dictated by : ISAAK RICHARDS MD This examination was interpreted and the report reviewed and electronically signed by: ISAAK RICHARDS MD on Apr 15 2018 5:38PM EST [id number] Collected: 04/14/2018 Status: F Source: [place] 9:55 AM [facility] REPOSITORY TYPE CODE TESTS RESULT OUT OF REFERENCE UNITS RANGE LAB FERR 30.3-565.7 ng/mL Low Ferritin 21.5 Performed By: #### FERR #### [facility] [address] [place], [place] [address] LEONID CBC Collected: 04/14/2018 Status: F Source: [place] 9:50 AM [facility] REPOSITORY TYPE CODE TESTS RESULT OUT OF REFERENCE UNITS RANGE LAB WWBC 3.70-11.00 k/uL [place] WBC 8.08 LAB WRBC 4.20-6.00 m/uL [place] High RBC 6.28 LAB WHGB 13.0-17.0 g/dL Low [place] Hemoglobin 11.7 LAB WHCT 39.0-51.0 % [place] Hematocrit 41.3 LAB WMCV 80.0-100.0 fL Low [place] MCV 65.8 LAB WMCH 26.0-34.0 pg Low [place] MCH 18.6 LAB WMCHC 30.5-36.0 g/dL Low [place] MCHC 28.3 LAB WRDW 11.5-15.0 % [place] High RDW 22.0 LAB WPLT 150-400 k/uL [place] Platelet Cnt 248 LAB WMPV 9.0-12.7 fL [place] MPV 10.5 Result Comment: Test performed at: [facility] [place] [address] [place] [address] Rd[address] [place] [address]. [place] ISTAT BMP Collected: 04/14/2018 Status: F Source: [place] 9:50 AM [facility] REPOSITORY TYPE CODE TESTS RESULT OUT [...] LEAD ELECTROCARDIOGRAM Observed: 04/02/2018 Status: F Source: [place] 3:32 PM [facility] REPOSITORY [facility] Cardiovascular Services [facility] [place] [address] 12 Lead EKG 03/27/18 1639 MR#: [id number] Acct: [id number] Name: DALE SARABIA Rep #: [id number] : 1955 63 From: Rafael Solorio MD Attending Dr: Ana Medina Status: DIS CHLOE Ordering Dr: Phuc Griffin MD Date: 03/27/18 Location: [facility] Sex: M C Admitted: 03/27/18 Test Reason [...] ECG Confirmed by RAFAEL SOLORIO MD ([id number]), photograph editor RIMMA LAZARO ([id number]) on 04/02/2018 3:32:45 PM Referred By: LENIN Confirmed By:RAFAEL SOLORIO MD 04/02/18 1532 Date Rafael Solorio MD CC: Ana Medina; Phuc Griffin MD; Sebastien Stahl MD Signed DISCHARGE SUMMARY Observed: 03/28/2018 Status: F Source: [place] 4:25 PM [facility] REPOSITORY [facility] Medical Records Department [address] [address] Discharge Summary 03/28/18 1617 MR#: [id number] Acct: [id number] Name: DALE SARABIA Rep #: [id number] : 1955 63 From: Ana Medina MD PCP: Sebastien Stahl MD Status: DIS CHLOE Y Location: [place] [address] Discharge Date and Diagnosis Date of Admission: 03/27/18 Date of Discharge: 03/28/18 - Primary Discharge Diagnosis #1 vertigo/dizziness. #2 acute kidney injury. - Secondary Discharge Diagnosis Chronic Problems (Last Reviewed 01/06/18 @ 10:31 by Toma Morley, PLANT FACILITIES TECHNICIAN-C) CAD (coronary artery disease) (Chronic) CLARK (dyspnea on exertion) (Chronic) 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) 05/22/11, PTCA/stent X [address] 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 (Chronic) History of renal [...] applicable Code Visit OBSV E AND M: 26039 Observation care discharge 03/28/18 1625 <Electronically signed by Ana Medina MD> Date Ana Medina MD Cosigner Signature (if applicable): Date CC: Ana Medina; Sebastien Stahl MD Signed DISCHARGE INSTRUCTION Observed: 03/28/2018 Status: F Source: [place] 12:15 PM [facility] REPOSITORY [facility] Medical Records Department [address] [place] [address] Instructions for Home/Discharge Instructions 03/28/18 1214 MR#: [id number] Acct: [id number] Name: DALE SARABIA Rep #: [id number] : 1955 63 From: Ana Medina MD [...] 03/28/2018 Status: F Source: [place] 11:47 AM [facility] REPOSITORY TYPE CODE TESTS RESULT OUT OF REFERENCE UNITS RANGE LAB L501.080 70-110 mg/dL High BEDSIDE GLU 181 Result Comment: Dr Prince Followed Insulin Given MANAGEMENT OF PATIENT CARE PER NURSING PROTOCOL Performed By: #### L501.080 #### [facility] Point of Care [address] [place] [address] ECHO, COMPLETE W/ Observed: 03/28/2018 Status: F Source: [place] CONTRAST 11:42 AM [facility] REPOSITORY [facility] Cardiovascular [place] [address] Echo Complete W/ Contrast 03/28/18 09 MR#: [id number] Acct: [id number] Name: DALE SARABIA Rep #: [id number] : 1955 63 From: Rafael Solorio MD Attending Dr: Ana Medina Status: ADM CHLOE Ordering Dr: Bg Estrella MD Date: 03/27/18 Location: [facility] Sex: M C Admitted: 03/27/18 Reason For [...] Date Dictated: 03/28/18901 Date Transcribed: 03/28/18 1141 Handyperson: Signed CBC-COMPLETE BLOOD CNT Collected: 03/28/2018 Status: F Source: [place] NO DIFF 6:45 AM [facility] REPOSITORY TYPE CODE TESTS RESULT OUT [...] 10.2 Performed By: #### L100.0500, L100.4500 #### [facility] [address] [place], [address] DIFFERENTIAL COMMENT Collected: 03/28/2018 Status: F Source: [place] 6:45 AM [facility] REPOSITORY TYPE CODE TESTS RESULT OUT OF RANGE REFERENCE UNITS LAB L100.4500 Normal SMEAR COMMENT Result Comment: MICROCYTOSIS 2+ OVALOCYTES 1+ Performed By: #### L100.0500, L100.4500 #### [facility] [address] [place], [place], [address] BASIC METABOLIC Collected: 03/28/2018 Status: F Source: [place] PROFILE (BMP) 6:45 AM [facility] REPOSITORY TYPE CODE TESTS RESULT OUT [...] 8 Performed By: #### L500.2500, L501.5200 #### [facility] [address] [facility] [place], [address] MAGNESIUM Collected: 03/28/2018 Status: F Source: [place] 6:45 AM [facility] REPOSITORY TYPE CODE TESTS RESULT OUT OF RANGE REFERENCE UNITS LAB L501.5200 1.6-2.6 mg/dL Normal MG 2.1 Performed By: #### L500.2500, L501.5200 #### [facility] [address] [place], [address] HISTORY AND PHYSICAL Observed: 03/27/2018 Status: F Source: [place] EXAM 8:46 PM [facility] REPOSITORY [facility] Medical Records Department [address] [place] [address] History and Physical 03/27/18 1815 MR#: [id number] Acct: [id number] Name: DALE SARABIA Rep #: [id number] : 1955 63 From: Bg Estrella MD PCP: Sebastien Stahl MD Status: ADM CHLOE Y Location: [place] [address] History of Present Illness Date of Admission: 03/27/18 Chief Complaint: severe dizziness The patient is a 63 year old M with past medical history of coronary artery disease status post angioplasty and stenting, essential hypertension, diabetes and obesity 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 Around 230 this afternoon he developed [...] on exertion) (Chronic) 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) 05/22/11, PTCA/stent X [address] 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) History of renal cell cancer (Chronic) Benign prostatic hypertrophy (Chronic) Type II diabetes mellitus (Chronic) Hyperlipidemia (Chronic) Obesity (Chronic) COPD (chronic obstructive pulmonary disease) (Chronic) Obstructive sleep apnea (Chronic) CPAP 13 cm of water Hypothyroidism (Chronic) Status post right partial nephrectomy (Chronic) Hypertension (Chronic) Medical History: Medical History (Last Reviewed 01/06/18 @ 10:31 by Toma Morley PLANT FACILITIES TECHNICIAN-C) 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) I25.10 05/22/11, PTCA/stent X [address] 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 Code Visit OBSV E AND M: 09402 Initial observation care L3 03/27/182045 <Electronically signed by Bg Estrella MD> Date Bg Estrella MD Cosigner Signature: Date (if applicable) CC: Bg Estrella MD; Sebastien Stahl MD Signed TROPONIN-I Collected: 03/27/2018 Status: F Source: [place] 8:38 PM [facility] REPOSITORY Order Comment: 'TROP' Serial specimen #1, #2 or #3: 2 TYPE CODE TESTS RESULT OUT OF RANGE REFERENCE UNITS LAB L501.4010 <0.045 ng/mL Normal < 0.015 TROPONIN-I Result Comment: TROPONIN-I EXPECTED VALUES <0.045 Negative 0.045 - 0.590 Consistent with Cardiac Damage > OR = 0.600 Critical Value Not every elevated troponin is indicative of AK. These values should be used with clinical judgement in examining the patient's clinical picture for diagnosis. To establish a diagnosis of AK versus myocardial injury, there must be a demonstrated rise and/or fall in the troponin values, in addition to ischemic symptoms, EKG changes, new regional wall motion abnormality, and/or angiographical evidence. PLEASE NOTE: REFERENCE RANGES EDITED 18 Performed By: #### L501.4010 #### [facility] [address] [place], [address] EMERGENCY DEPARTMENT Observed: 03/27/2018 Status: F Source: [place] SUMMARY 6:49 PM [facility] REPOSITORY [facility] Medical Records Department [address] [address] Emergency Department Summary 03/27/18 1627 MR#: [id number] Acct: [id number] Name: DLAE SARABIA Rep #: [id number] : 1955 63 From: Phuc Griffin MD [...] Acute vertigo This note was generated with [employer] dictation software. It may contain incorrect words, [...] your Primary Care Provider. Call [facility] ([phone]) or report to the closest Emergency Room. Call 911 if necessary. 03/27/18 7119 <Electronically signed by Phuc Griffin MD> Date Phuc Griffin MD Cosigner Signature (If Indicated): Date CC: Sebastien Stahl MD CTA HEAD W/WO Observed: 03/27/2018 Status: F Source: [place] CONTRAST 4:32 PM [facility] REPOSITORY [facility] Imaging Services [address] [place] [address] CTA Head W/WO Contrast MR#: [id number] Acct: [id number] Name: DALE SARABIA Rep #: [id number] : 1955 M 63 From: Red Arizmendi MD PCP: Sebastien Stahl MD Status: REG ER Study: CTA Head W/WO Contrast Date of Exam: 03/27/18 Exam# [id number] Ordering Dr: Phuc Griffin MD STUDY: CTA [...] There is no demonstrated aneurysm of the stebbins of [place]. There is no demonstrated abnormality of the visualized brain. CT/CTA Head W/WO Contrast IMPRESSION: Hypoplastic right vertebral artery otherwise unremarkable exam. Electronically Signed: Red Arizmendi MD at 17:47 EDT , Service support , CC: Phuc Griffin MD; Sebastien Stahl MD Handyperson: Signed CTA NECK W/WO Observed: 03/27/2018 Status: F Source: [place] CONTRAST 4:32 PM [facility] REPOSITORY [facility] Imaging Services [address] [place] [address] CTA Neck W/WO Contrast MR#: [id number] Acct: [id number] Name: DALE SARABIA Rep #: [id number] : 1955 63 From: Red Arizmendi MD PCP: Sebastien Stahl MD Status: REG ER Study: CTA Neck W/WO Contrast Date of Exam: 03/27/18 Exam# [id number] Ordering Dr: Phuc Griffin MD STUDY: CTA [...] There is no demonstrated aneurysm of the stebbins of [place]. There is no demonstrated abnormality of the visualized brain. CT/CTA Neck W/WO Contrast IMPRESSION: Hypoplastic right vertebral artery otherwise unremarkable exam. Electronically Signed: Red Arizmendi MD at 17:47 EDT , Service support , CC: Phuc Griffin MD; Sebastien Stahl MD Handyperson: Signed CHEST 1 VIEW Observed: 03/27/2018 Status: F Source: [place] (PORTABLE) 4:27 PM [facility] REPOSITORY [facility] Imaging Services [address] [place] [address] Chest 1 View (Portable) MR#: [id number] Acct: [id number] Name: DALE SARABIA Rep #: [id number] : 1955 M 63 From: Red Arizmendi MD PCP: Sebastien Stahl MD Status: PRE ER Study: Chest 1 View (Portable) Date of Exam: 03/27/18 Exam# [id number] Ordering Dr: Phuc Griffin MD STUDY: X-RAY [...] CC: Phuc Griffin MD; Sebastien Stahl MD Handyperson: Signed CBC W/DIFF, AUTOMATED Collected: 03/27/2018 Status: F Source: [place] 4:25 PM [facility] REPOSITORY TYPE CODE TESTS RESULT OUT [...] Normal 2+ Performed By: #### L100.0100 #### [facility] [address] [place], [address] COMPREHENSIVE METABOLIC Collected: 03/27/2018 Status: F Source: [facility] 4:25 PM [facility] REPOSITORY TYPE CODE TESTS RESULT OUT [...] 11 Performed By: #### L500.4050, L501.4010 #### [facility] [address] [facility] [address] [place], [place], [address] TROPONIN-I Collected: 03/27/2018 Status: F Source: [place] 4:25 PM [facility] REPOSITORY TYPE CODE TESTS RESULT OUT OF RANGE REFERENCE UNITS LAB L501.4010 <0.045 ng/mL Normal < 0.015 TROPONIN-I Result Comment: TROPONIN-I EXPECTED VALUES <0.045 Negative 0.045 - 0.590 Consistent with Cardiac Damage > OR = 0.600 Critical Value Not every elevated troponin is indicative of AK. These values should be used with clinical judgement in examining the patient's clinical picture for diagnosis. To establish a diagnosis of AK versus myocardial injury, there must be a demonstrated rise and/or fall in the troponin values, in addition to ischemic symptoms, EKG changes, new regional wall motion abnormality, and/or angiographical evidence. PLEASE NOTE: REFERENCE RANGES EDITED 18 Performed By: #### L500.4050, L501.4010 #### [facility] [address] [place], [place], [address] BEDSIDE GLUCOSE Collected: 03/27/2018 Status: F Source: [place] 4:20 PM [facility] REPOSITORY TYPE CODE TESTS RESULT OUT OF REFERENCE UNITS RANGE LAB L501.080 70-110 mg/dL High BEDSIDE GLU 202 Result Comment: MANAGEMENT OF PATIENT CARE PER NURSING PROTOCOL Performed By: #### L501.080 #### [facility] Point of [place] [address] [place] [address] CNOVSP Observed: 03/05/2018 Status: COMPLETED Source: [place] 10:10 AM [facility] REPOSITORY Visit (SP) Office (HEMAWS) DALE SARABIA ([id number]) 1955 M Date Time Provider Department 03/05/18 [...] to evaluation here. I reviewed CBCs from [facility]. Hgb=18.4 gm/dl 07/07. CT A/P in [...] No jaundice or rash. No petechiae. NEUROLOGIC: fisher eel spear II-XII are grossly intact. No focal motor [...] Moses Jordan DO Referring Provider: MOSES JORDAN [[id number]] Allergies As of Date: 03/05/2018 Noted Allergy [...] Secondary polycythemia [D75.1] Order(s):CT KIDNEY WO/W IVCON [[id number]] Order #: [id number] FUTURE iv contrast (will be provided with [...] 0.1 %* Apply 1 application to affect* [id number]* Take 2 tablets by mouth as ne* Medication notes this encounter TRIAMCINOLONE ACETONIDE 0.1 % TOPICAL CREAM >> Tavia Aguilar MA 03/05/2018 9:53 AM >> TAVIA AGUILAR MA [facility] Mar 05, 2018 9:53 AM No longer [...] 03/05/18 PROGRESS Observed: 03/05/2018 Status: COMPLETED Source: [place] 10:02 AM [facility] REPOSITORY HNO ID: [id number] Author: Moses Jordan Service: (none) Author Type: [...] to evaluation here. I reviewed CBCs from [facility]. Hgb=18.4 gm/dl 07/07. CT A/P in [...] No jaundice or rash. No petechiae. NEUROLOGIC: fisher eel spear II-XII are grossly intact. No focal motor [...] of IV Ativan. Moses Jordan, DO Moses Jordan, DO [place] CBC Collected: 03/05/2018 Status: F Source: [place] 9:46 AM [facility] REPOSITORY TYPE CODE TESTS RESULT OUT OF REFERENCE UNITS RANGE LAB WWBC 3.70-11.00 k/uL [place] WBC 7.97 LAB WRBC 4.20-6.00 m/uL [place] RBC 5.79 LAB WHGB 13.0-17.0 g/dL Low [place] Hemoglobin 10.9 LAB WHCT 39.0-51.0 % Low [place] Hematocrit 38.5 LAB WMCV 80.0-100.0 fL Low [place] MCV 66.5 LAB WMCH 26.0-34.0 pg Low [place] MCH 18.8 LAB WMCHC 30.5-36.0 g/dL Low [place] MCHC 28.3 Result Comment: Result checked and verified LAB WRDW 11.5-15.0 % High [place] RDW 21.5 LAB WPLT 150-400 k/uL [place] 213 Platelet Cnt LAB WMPV 9.0-12.7 fL [place] MPV 10.7 Result Comment: Test performed at: [address] [place] [address]. FERRITIN Collected: 03/05/2018 Status: F Source: [place] 9:46 AM [facility] REPOSITORY TYPE CODE TESTS RESULT OUT OF REFERENCE UNITS RANGE LAB FERR 30.3-565.7 ng/mL Low Ferritin 13.2 Performed By: #### FERR #### [facility] [address] [place], [place] [address] 12 LEAD ELECTROCARDIOGRAM Observed: 02/25/2018 Status: F Source: [place] 1:37 PM [facility] REPOSITORY [facility] Cardiovascular Services [address] [place] [address] 12 Lead EKG 02/19/18 1017 MR#: [id number] Acct: [id number] Name: DALE SARABIA Rep #: [id number] : 1955 63 From: Moses Fields MD [...] wave progression Confirmed by EMANI MICHELLE, MOSES ([id number]), photograph editor RIMMA LAZARO ([id number]) on 02/25/2018 1:37:02 PM Referred By: AR Confirmed By:MOSES FIELDS MD 02/25/18 1337 Date Moses Fields MD CC: Judd Fisher DO; Sebastien Stahl Signed EMERGENCY DEPARTMENT Observed: 02/19/2018 Status: F Source: [place] SUMMARY 3:28 PM [facility] REPOSITORY [facility] Medical Records Department [address] [address] Emergency Department Summary 02/19/18 1304 MR#: [id number] Acct: [id number] Name: DALE SARABIA Rep #: [id number] : 1955 63 From: Judd Fisher DO PCP: Sebastien Stahl Status: DEP ER - ER Visit Summary Date of Service: 02/19/18 Chief Complaint: [] Near-syncope History of Present Illness: The patient is a 63 M [] complaining of near syncope 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 He reports procedure was done on his right eye. He reports after the procedure was over he had a sharp pain in his right eye and had a near syncopal episode. He reports continued pain in his right eye. He reports the procedure was completed fully and that there was no further concerns from the biodiesel product manager. Patient denies chest pain or shortness of [...] [] Near-syncope This note was generated with [employer] dictation software. It may contain incorrect words, [...] problems, contact your Primary Care Provider. Call [facility] ([phone]) or report to the closest Emergency Room. Call 911 if necessary. 02/19/18 1528 <Electronically signed by Judd Fisher DO> Date Judd Fisher DO Cosigner Signature (If Indicated): Date CC: Sebastien Stahl DISCHARGE INSTRUCTION Observed: 02/19/2018 Status: F Source: [place] 1:07 PM [facility] REPOSITORY [facility] Medical Records Department [address] [address] Discharge Instruction 02/19/18 1306 MR#: [id number] Acct: [id number] Name: DALE SARABIA Rep #: [id number] : 1955 63 From: Judd Fisher DO [...] your Primary Care Provider. Call [facility] ([phone]) or report to the closest Emergency Room. Call 911 if necessary. 02/19/18 1307 <Electronically signed by Judd Fisher DO> Date Judd Fisher DO Cosigner Signature (If Indicated): Date CC: Sebastien Stahl CBC W/DIFF, AUTOMATED Collected: 02/19/2018 Status: F Source: LEONID 11:10 AM [facility] REPOSITORY TYPE CODE TESTS RESULT OUT [...] Normal 1+ Performed By: #### L100.0100 #### [facility] [address] [place], [address] BASIC METABOLIC Collected: 02/19/2018 Status: F Source: RINGOES PROFILE (BMP) 11:10 AM [facility] REPOSITORY TYPE CODE TESTS RESULT OUT [...] 5 Performed By: #### L500.2500, L501.4010 #### [facility] [address] [facility] [place], [address] TROPONIN-I Collected: 02/19/2018 Status: F Source: RINGOES 11:10 AM [facility] REPOSITORY TYPE CODE TESTS RESULT OUT OF RANGE REFERENCE UNITS LAB L501.4010 <0.045 ng/mL Normal < 0.015 TROPONIN-I Result Comment: TROPONIN-I EXPECTED VALUES <0.045 Negative 0.045 - 0.590 Consistent with Cardiac Damage > OR = 0.600 Critical Value Not every elevated troponin is indicative of AK. These values should be used with clinical judgement in examining the patient's clinical picture for diagnosis. To establish a diagnosis of AK versus myocardial injury, there must be a demonstrated rise and/or fall in the troponin values, in addition to ischemic symptoms, EKG changes, new regional wall motion abnormality, and/or angiographical evidence. PLEASE NOTE: REFERENCE RANGES EDITED 18 Performed By: #### L500.2500, L501.4010 #### [facility] [address] [facility] [address] [place], [place], [address] BNP,B-TYPE NATRIURETIC Collected: 02/19/2018 Status: F Source: LEONID PEPTIDE 11:10 AM [facility] REPOSITORY TYPE CODE TESTS RESULT OUT OF RANGE REFERENCE UNITS LAB L503.6620 0-100 pg/mL Normal B-TYPE 2.7 BRIE PEP Performed By: #### L503.6620 #### [facility] [address] [facility] [place], [place], [address] CHEST PA AND LATERAL Observed: 02/19/2018 Status: F Source: LEONID 10:06 AM [facility] REPOSITORY [facility] Imaging Services [address] [place] [address] Chest PA and Lateral MR#: [id number] Acct: [id number] Name: DALE SARABIA Rep #: [id number] : 1955 M 63 From: Anshul Arboleda MD PCP: Sebastien Stahl Status: REG ER Study: Chest PA and Lateral Date of Exam: 02/19/18 Exam# [id number] Ordering Dr: Judd Fisher DO STUDY: X-RAY [...] Anshul Arboleda MD at 12:36 EDT Tel [phone], Service support , CC: Judd Fisher DO; Sebastien Stahl Handyperson: Signed CBC-COMPLETE BLOOD CNT Collected: 01/14/2018 Status: F Source: LEONID NO DIFF 10:15 AM [facility] REPOSITORY TYPE CODE TESTS RESULT OUT [...] 9.9 Performed By: #### L100.0500, L100.4500 #### [facility] [address] [place], [place], [address] DIFFERENTIAL COMMENT Collected: 01/14/2018 Status: F Source: RINGOES 10:15 AM [facility] REPOSITORY TYPE CODE TESTS RESULT OUT OF RANGE REFERENCE UNITS LAB L100.4500 Normal SMEAR COMMENT COMMENT Result Comment: SLIDE SCANNED - 1+ ANISO, 1+ TARGET CELLS. Performed By: #### L100.0500, L100.4500 #### [facility] [address] [place], [place], [address] FERRITIN Collected: 01/14/2018 Status: F Source: RINGOES 10:15 AM [facility] REPOSITORY TYPE CODE TESTS RESULT OUT OF REFERENCE UNITS RANGE LAB L503.6550 26-388 ng/mL Low FERRITIN 10 Performed By: #### L503.6550 #### [facility] [address] [place], [place], [address] PULMONARY VISIT REPORT Observed: 01/06/2018 Status: F Source: RINGOES 2:49 PM [facility] REPOSITORY [facility] [address] [place], [place] [address] OFFICE VISIT Date of Service: 01/06/18 MR#: [id number] Acct: [id number] Name: DALE SARABIA Chris Rep #: [id number] : 1955 Provider: Toma Morley Age/Sex: 62/M Location: BMS.PMW Status: Signed Assessment AND Plan 1. RHINA [...] understanding. 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) History of renal [...] LEAD ELECTROCARDIOGRAM Observed: 01/06/2018 Status: F Source: RINGOES 8:43 AM [facility] REPOSITORY [facility] Cardiovascular Services [address] [place] [address] 12 Lead EKG 01/03/18 0832 MR#: [id number] Acct: [id number] Name: DALE SARABIA Rep #: [id number] : 1955 62 From: Rafael Solorio MD Attending Dr: Juli Rodriguez Status: DIS IN Ordering Dr: Maury Daniels MD Date: 01/03/18 Location: [facility] Sex: M C Admitted: 01/03/18 Test Reason [...] ECG Confirmed by RAFAEL SOLORIO MD ([id number]), photograph editor RIMMA LAZARO ([id number]) on 01/06/2018 8:43:45 AM Referred By: ARIS Confirmed By:RAFAEL SOLORIO MD 01/06/18 0843 Date Rafael Solorio MD CC: Juli Rodriguez; Kenny Daniels MD; Sebastien Stahl Signed HISTORY AND PHYSICAL Observed: 01/04/2018 Status: F Source: RINGOES EXAM 6:21 PM [facility] REPOSITORY [facility] Medical Records Department [address] [address] History and Physical 01/03/18 1532 MR#: [id number] Acct: [id number] Name: DALE SARABIA Rep #: [id number] : 1955 62 From: William VASQUEZ PCP: Sebastien Stahl Status: DIS IN Y Location: [place] [id number] ADDENDUM by Juli Rodriguez on 01/04/18 at [...] for 3 days. Inpatient E AND M: [id number] Init Hosp 01/04/18 1808 <Electronically signed by Maryann Rodriguez [...] artery disease) (Chronic) 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) 05/22/11, PTCA/stent X [address] 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 01/03/18 1559 <Electronically signed by William VASQUEZ> Date William VASQUEZ 01/04/18 1801<Electronically signed by Maryann Rodriguez DO> Cosigner Signature: Date (if applicable) Maryann Rodriguez DO CC: PEDRO Laws; Juli Rodriguez; Sebastien Stahl Signed DISCHARGE SUMMARY Observed: 01/04/2018 Status: F Source: LEONID 6:20 PM [facility] REPOSITORY [facility] Medical Records Department [address] [address] Discharge Summary 01/04/18 1235 MR#: [id number] Acct: [id number] Name: ADRIANDALE Chris Rep #: [id number] : 1955 62 From: William VASQUEZ PCP: Sebastien Stahl Status: DIS IN Y [id number] ADDENDUM by Juli Rodriguez on 01/04/18 at [...] have been written. Inpatient E AND M: [id number] Disch Hosp 01/04/18 1820 <Electronically signed by M C. Sementi DO> Date Maryann Rodriguez DO cc: PEDRO [...] artery disease) (Chronic) 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) 05/22/11, PTCA/stent X [address] 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) History of renal [...] applicable 01/04/18 1352 <Electronically signed by William Laws PA> Date William VASQUEZ 01/04/18 1809<Electronically signed by Maryann Rodriguez DO> Cosigner Signature (if applicable): Date Maryann Rodriguez DO CC: PEDRO Laws; Juli Rodriguez; Sebastien Stahl Signed DISCHARGE INSTRUCTION Observed: 01/04/2018 Status: F Source: RINGOES 1:45 PM [facility] REPOSITORY [facility] Medical Records Department [address] [address] Instructions for Home/Discharge Instructions 01/04/18 1344 MR#: [id number] Acct: [id number] Name: DALE SARABIA Rep #: [id number] : 1955 62 From: William VASQUEZ PCP: Sebastien Stahl Status: ADM IN - Discharge Diagnoses Current Active Problems: Current Active and Chronic Problems (Last Updated 01/01/18 @ 13:42 by Lias Heck) PNA (pneumonia) (Acute) RLL pneumonia (Acute) [...] 01/04/2018 Status: F Source: LEONID 11:37 AM [facility] REPOSITORY TYPE CODE TESTS RESULT OUT OF REFERENCE UNITS RANGE LAB L501.080 70-110 mg/dL High BEDSIDE GLU 284 Result Comment: MANAGEMENT OF PATIENT CARE PER NURSING PROTOCOL Performed By: #### L501.080 #### [facility] Point of Care [address] [place] [address] BEDSIDE GLUCOSE Collected: 01/04/2018 Status: F Source: LEONID 6:46 AM [facility] REPOSITORY TYPE CODE TESTS RESULT OUT OF REFERENCE UNITS RANGE LAB L501.080 70-110 mg/dL High BEDSIDE GLU 188 Result Comment: MANAGEMENT OF PATIENT CARE PER NURSING PROTOCOL Performed By: #### L501.080 #### [facility] Point of Care [address] [facility] [place] [address] BASIC METABOLIC Collected: 01/04/2018 Status: F Source: LEONID PROFILE (BMP) 5:44 AM [facility] REPOSITORY TYPE CODE TESTS RESULT OUT [...] GAP 10 Performed By: #### L500.2500 #### [facility] [address], [address] CBC W/DIFF, AUTOMATED Collected: 01/04/2018 Status: F Source: RINGOES 5:44 AM [facility] REPOSITORY TYPE CODE TESTS RESULT OUT [...] Normal 1+ Performed By: #### L100.0100 #### [facility] [address] [place], [place], [address] BEDSIDE GLUCOSE Collected: 01/03/2018 Status: F Source: RINGOES 9:38 PM [facility] REPOSITORY TYPE CODE TESTS RESULT OUT OF REFERENCE UNITS RANGE LAB L501.080 70-110 mg/dL High BEDSIDE GLU 302 Result Comment: MANAGEMENT OF PATIENT CARE PER NURSING PROTOCOL Performed By: #### L501.080 #### [facility] Point of Care [address] [facility] [place], [place] [address] Observed: 01/03/2018 Status: F Source: RINGOES CULTURE, SPUTUM 6:57 PM [facility] REPOSITORY Order Date: 01/03/18 Has pt arrived? Y Gram Stain Acceptable Specimen? Yes (<25 Epithelial cells per/lpf) Gram Stain Rare Epithelial cells Rare White Blood Cells Rare Gram positive cocci Rare Gram positive rods Resp. Culture Mixed normal respiratory jeramie. No Haemophilus, Streptococcus pneumoniae, beta-hemolytic Streptococcus or Staphylococcus aureus isolated. Performed By: #### M100.0800 #### [facility] [address] [place], [address] LACTIC ACID Collected: 01/03/2018 Status: F Source: RINGOES 5:30 PM [facility] REPOSITORY TYPE CODE TESTS RESULT OUT OF REFERENCE UNITS RANGE LAB L503.6005 0.4-2.0 mmol/L High alert LACTIC ACID 5.9 Result Comment: Critical Result(s) Called Brenda RODRIGUEZ at: 18:11:16 01/03/2018 by: GERMAIN BOYCE Performed By: #### L503.6005 #### [facility] [address] [facility] [place], [place], [address] URINALYSIS, ROUTINE Collected: 01/03/2018 Status: F Source: RINGOES (DIPSTICK) 4:40 PM [facility] REPOSITORY Order Comment: How was Urine Obtained? [...] LEUK Normal ESTERASE Negative Performed By: #### L400.2010 #### [facility] [address] [place], [place], [address] Observed: 01/03/2018 Status: F Source: RINGOES LEGIONELLA ANTIGEN 4:40 PM [facility] URINE REPOSITORY Specimen Source: URINE, CLEAN CATCH Legionella, UR Legionella Antigen result interpretation: Negative Presumptive negative for Legionella pneumophila serogroup 1 antigen in urine, suggesting no recent or current infection. POSITIVE Presumptive positive for Legionella pneumophila serogroup 1 antigen in urine, suggesting current or past infection. Legionella Ag, Urine Negative (See interpretation below) Performed By: #### M300.4500 #### [facility] [address] [place], [address] STREP Observed: 01/03/2018 Status: F Source: RINGOES PNEUMONIAE ANTIG(UR,CSF) 4:40 PM [facility] REPOSITORY S pneumo Ag URINE INTERPRETATION Positive [...] interpretation below) Performed By: #### M300.4600 #### [facility] [address] [facility] [place], [address] EMERGENCY DEPARTMENT Observed: 01/03/2018 Status: F Source: RINGOES SUMMARY 4:36 PM [facility] HOSPITAL REPOSITORY [facility] Medical Records Department [address] [place] [address] Emergency Department Summary 01/03/18 0834 MR#: [id number] Acct: [id number] Name: DALE SARABIA Rep #: [id number] : 1955 62 From: Maury Daniels MD [...] 40 minutes This note was generated with JamOrigination software. It may contain incorrect words, spelling, and punctuation that were not noted in review of the chart prior to signing ED Disposition - Plan for ED Patient: Disposition: Acute Care [facility] Chief Complaint: Shortness of Breath What to do if you have Problems For any increased pain, shortness of breath, bleeding, nausea or vomiting, chest pain, or any unexpected problems, contact your Primary Care Provider. Call [facility] ([phone]) or report to the closest Emergency Room. Call 911 if necessary. 01/03/18 1636 <Electronically signed by Maury Daniels MD> Date Maury Daniels MD Cosigner Signature (If Indicated): Date CC: Sebastien Stahl BEDSIDE GLUCOSE Collected: 01/03/2018 Status: F Source: RINGOES 3:56 PM [facility] REPOSITORY TYPE CODE TESTS RESULT OUT OF REFERENCE UNITS RANGE LAB L501.080 70-110 mg/dL High BEDSIDE GLU 328 Result Comment: MANAGEMENT OF PATIENT CARE PER NURSING PROTOCOL Performed By: #### L501.080 #### [facility] Point of Care [address] [place] [address] BEDSIDE GLUCOSE Collected: 01/03/2018 Status: F Source: RINGOES 3:54 PM [facility] REPOSITORY TYPE CODE TESTS RESULT OUT OF REFERENCE UNITS RANGE LAB L501.080 70-110 mg/dL High BEDSIDE GLU 315 Result Comment: MANAGEMENT OF PATIENT CARE PER NURSING PROTOCOL Performed By: #### L501.080 #### [facility] Point of Care [address] [place] [place] [address] LACTIC ACID Collected: 01/03/2018 Status: F Source: LEONID 12:43 PM [facility] REPOSITORY Order Comment: Comments: 3 hours after initial level if initial lactic >2 Yes/No query for Sepsis Lactate Rule Y TYPE CODE TESTS RESULT OUT OF REFERENCE UNITS RANGE LAB L503.6005 0.4-2.0 mmol/L High alert LACTIC ACID 5.6 Result Comment: Critical Result(s) Called at: 13:43:12 01/03/2018 by: Jaiden Luna RN PCU. Performed By: #### L503.6005 #### [facility] [address] [place], [place] [address]. [place], [place], [address] Observed: 01/03/2018 Status: F Source: LEONID CULTURE, BLOOD (WB) 9:05 AM [facility] REPOSITORY BC No growth in 5 days. Performed By: #### M200.1000 #### [facility] [address] [place] [address]. [place], [place], [address] LACTIC ACID Collected: 01/03/2018 Status: F Source: LEONID 8:55 AM [facility] REPOSITORY Order Comment: Yes/No query for Sepsis Lactate Rule Y TYPE CODE TESTS RESULT OUT OF REFERENCE UNITS RANGE LAB L503.6005 0.4-2.0 mmol/L High LACTIC ACID 3.0 Result Comment: Critical Result(s) Called at: 09:32:00 01/03/2018 by: Jaiden Bills RN. (ER) Performed By: #### L503.6005 #### [facility] [address] [facility] [address] [place], [place], [address] Observed: 01/03/2018 Status: F Source: LEONID INFLUENZA A+B (RAPID 8:55 AM [facility]) REPOSITORY Order Date: 01/03/18 Has pt arrived? Y FLU A/B Rapid Negative test results should be confirmed by culture. Order Rapid Viral Culture for Influenzae A+B (488184) if clinically indicated. Copy of report sent to Infection Control Printer MS#[id number] 01/03/18 1024 JAMARFRANCHESKA. RESULTS CALLED TO KURT BILLS 01/03/18 1024 Nhi Connelly. REPORT READ BACK BY SAME. Influenza Ag, Direct POSITIVE for the presence of INFLUENZA A Antigen only ORGANISM 1: INFLUENZAE A Performed By: #### M101.0101 #### [facility] [place], [place], [address] Observed: 01/03/2018 Status: F Source: RINGOES RESPIRATORY PANEL 8:55 AM [facility] MOLECULAR REPOSITORY Order Date: 01/03/18 CALLED TO [...] (SUBTYPE H1) Performed By: #### M100.638 #### [facility] [place], [place], [address] Observed: 01/03/2018 Status: F Source: RINGOES CULTURE, BLOOD (WB) 8:53 AM [facility] REPOSITORY BC No growth in 5 days. Performed By: #### M200.1000 #### [facility] [address] [facility] [place], [place], [address] CHEST PA AND LATERAL Observed: 01/03/2018 Status: F Source: RINGOES 8:33 AM [facility] HOSPITAL REPOSITORY [facility] Imaging Services [address] [place] [address] Chest PA and Lateral MR#: [id number] Acct: [id number] Name: DALE SARABIA Rep #: [id number] : 1955 M 62 From: Nhi Resendiz MD PCP: Sebastien Stahl Status: REG ER Study: Chest PA and Lateral Date of Exam: 01/03/18 Exam# [id number] Ordering Dr: Maury Daniels MD STUDY: X-RAY [...] , CC: Kenny Daniels MD; Sebastien Stahl Handyperson: Signed CBC W/DIFF, AUTOMATED Collected: 01/03/2018 Status: F Source: LEONID 8:30 AM [facility] REPOSITORY TYPE CODE TESTS RESULT OUT [...] Normal 1+ Performed By: #### L100.0100 #### [facility] [address] [place], [place], [address] BASIC METABOLIC Collected: 01/03/2018 Status: F Source: LEONID PROFILE (BMP) 8:30 AM [facility] REPOSITORY TYPE CODE TESTS RESULT OUT [...] GAP 10 Performed By: #### L500.2500 #### [facility] [address] [place], [place], [address] HEMOGLOBIN A1C Collected: 01/03/2018 Status: F Source: LEONID 8:30 AM [facility] REPOSITORY TYPE CODE TESTS RESULT OUT OF RANGE REFERENCE UNITS LAB L501.9985 4.2-6.3 % High HGB A1C 8.2 Performed By: #### L501.9985 #### [facility] [address] [place], [address] THYROID STIM HORMONE Collected: 01/03/2018 Status: F Source: RINGOES (TSH) 8:30 AM [facility] REPOSITORY TYPE CODE TESTS RESULT OUT OF RANGE REFERENCE UNITS LAB L501.9520 0.358-3.74 uIU/mL Normal TSH 1.08 Performed By: #### L501.9520, L506.0400 #### [facility] [address] [place], [address] T4 FREE DIRECT Collected: 01/03/2018 Status: F Source: LEONID 8:30 AM [facility] REPOSITORY TYPE CODE TESTS RESULT OUT OF RANGE REFERENCE UNITS LAB L506.0400 0.76-1.46 ng/dL Normal T4 FREE 1.02 DIRECT Performed By: #### L501.9520, L506.0400 #### [facility] [address] [facility] [place], [address] CBC-COMPLETE BLOOD CNT Collected: 12/17/2017 Status: F Source: LEONID NO DIFF 10:29 AM [facility] REPOSITORY Order Comment: CBC AND FERRITIN ARE [...] 10.7 Performed By: #### L100.0500, L100.4500 #### [facility] [address] [place], [address] DIFFERENTIAL COMMENT Collected: 12/17/2017 Status: F Source: LEONID 10:29 AM [facility] REPOSITORY Order Comment: CBC AND FERRITIN ARE FOR DR JULIAN NETTLES FOR DR AGUILAR TYPE CODE TESTS RESULT OUT OF RANGE REFERENCE UNITS LAB L100.4500 Normal SMEAR COMMENT COMMENT Result Comment: SLIDE SCANNED - RARE TARGET CELLS, SLIGHT HYPOCHROMIA. Performed By: #### L100.0500, L100.4500 #### [facility] [address] [place], [address] PSA,TOTAL - ANNUAL Collected: 12/17/2017 Status: F Source: LEONID SCREEN 10:29 AM [facility] REPOSITORY Order Comment: CBC AND FERRITIN ARE FOR DR JORDAN PSA FOR DR AGUILAR TYPE CODE TESTS RESULT OUT OF RANGE REFERENCE UNITS LAB L501.9910 0.00-4.00 ng/mL Normal PSA,TOT 1.30 SCREEN Result Comment: This test was performed using the TPSA assay method for the [employer] chemistry system. Values obtained with different assay methods cannot be used interchangably. When changing PSA assays in the course of monitoring a patient, additional sequential testing should be carried out to confirm baseline values. Performed By: #### L501.9910, L503.6550 #### [facility] [address] [place], [address] FERRITIN Collected: 12/17/2017 Status: F Source: LEONID 10:29 AM [facility] REPOSITORY Order Comment: CBC AND FERRITIN ARE FOR DR JORDAN PSA FOR DR AGUILAR TYPE CODE TESTS RESULT OUT OF REFERENCE UNITS RANGE LAB L503.6550 26-388 ng/mL Low FERRITIN 6 Performed By: #### L501.9910, L503.6550 #### [facility] [address] [place], [address] CARDIOLOGY VISIT Observed: 12/04/2017 Status: F Source: LEONID REPORT 10:44 AM [facility] REPOSITORY [facility] [address] [place] [address] OFFICE VISIT Date of Service: 12/04/17 MR#: [id number] Acct: [id number] Name: DALE SARABIA Rep #: [id number] : 1955 Provider: Rafael Solorio MD Age/Sex: 62/M [place] [facility]: Signed HPI [facility] Chief Complaint: Follow-up visit. 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 4. 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) Coding Level of Care Code Off vis,est,level [...] Stahl FERRITIN Collected: 11/20/2017 Status: F Source: [place] 1:15 PM [facility] REPOSITORY TYPE CODE TESTS RESULT OUT OF REFERENCE UNITS RANGE LAB FERR 30.3-565.7 ng/mL Low Ferritin 20.9 Performed By: #### FERR #### [facility] [address] [place], [place] [address] LEONID ABS GR + CBC Collected: 11/20/2017 Status: F Source: [place] 1:14 PM [facility] REPOSITORY TYPE CODE TESTS RESULT OUT OF REFERENCE UNITS RANGE LAB WWBC 3.70-11.00 k/uL [place] WBC 8.97 LAB WRBC 4.20-6.00 m/uL [place] High RBC 6.17 LAB WHGB 13.0-17.0 g/dL Low [place] Hemoglobin 12.2 LAB WHCT 39.0-51.0 % [place] Hematocrit 41.4 LAB WMCV 80.0-100.0 fL Low [place] MCV 67.1 LAB WMCH 26.0-34.0 pg Low [place] MCH 19.8 LAB WMCHC 30.5-36.0 g/dL Low [place] MCHC 29.5 LAB WRDW 11.5-15.0 % [place] High RDW 20.4 LAB WPLT 150-400 k/uL [place] Platelet Cnt 246 LAB WMPV 9.0-12.7 fL [place] MPV 9.9 Result Comment: Test performed at: [facility] [place], [address] [place] [address]. LAB ABGRAN 1.45-7.50 k/uL Absol Gran 5.01 Count ALLERGIES ALLERGIES DATE TYPE / CODE NAME / CODE REACTION SEVERITY SOURCE Drug theophylline/F006 Unknown Unknown [place] 9 Allergy/[id number]( 822579(RXNORM) Formerly [facility], [facility] SNOMED CT) Hospital Repository DRUG MILK SHORTNESS OF [place] 8 INGREDI/[id number]( [facility] SNOMED CT) [place] Repository DRUG FENNEL SEED SHORTNESS OF [place] 7 INGREDI/933196674( [facility] SNOMED CT) [place] Repository Food/[id number](SNO CHOCOLATE SHORTNESS [facility] [address]) [facility] [place] Repository Miscellaneous OTHER [place] 9 Allergy/307213133( [facility] SNOMED CT) [place] Repository DRUG THEOPHYLLINE INTOLERANCE [place] 6 INGREDI/006140095( [facility] SNOMED CT) [place] Repository ENCOUNTERS ENCOUNTERS ADMIT/DISCHARGE ACCOUNT ADMITTING ENCOUNTER LOCATION SOURCE NUMBER CLASS 10/15/2018/10/16/19 [id number] Ambulatory [address] Repository 10/14/[id number] [facility] ing:LAB Repository 10/04/2018/10/04/19 [id number] Emergency [address] ing:ED Repository 09/17/[id number] [facility] ing:LAB.FUTUR Repository E 09/14/[id number] [facility] ing:RAD Repository 09/01/2018/09/02/20 [id number] Ambulatory [address] Repository 09/01/2018/09/02/20 [id number] Ambulatory [address] Repository 08/31/2018/08/31/20 [id number] Ambulatory [address] ing:LAB Repository 08/04/2018/08/05/20 [id number] Ambulatory [address] Repository 08/03/2018/08/28/20 [id number] Ambulatory [address] ing:LAB Repository 07/30/[id number] [facility] ing:LAB Repository 07/09/2018/07/10/20 [id number] Ambulatory [address] Repository 07/03/2018/07/03/20 [id number] Ambulatory [address] ing:LAB Repository 07/02/2018 [id number] Ambulatory BMSBuilding:Melvin Jaquez MS.[facility] Repository 06/26/[id number] [facility] ing:LAB Repository 06/21/2018/06/23/20 [id number] [facility], Inpatient [place] ing:PCURoom: Repository [id number]: 1 06/21/2018 [id number] [facility], Ambulatory BMSBuilding:B [place] Joyce MS.[facility] Repository 06/21/2018 [id number] [facility], Ambulatory BMSBuilding:B [place] Joyce MS.[facility] Repository 06/21/2018 [id number] Ambulatory BMSBuilding:Melvin Jaquez MS.[facility] Repository 06/19/2018/06/19/20 [id number] Ambulatory [address] Hospital ing:CLSP Repository 06/19/2018/06/19/20 [id number] Ambulatory BMSBuilding:W [place] 18 [facility] Repository 06/18/2018/06/18/20 [id number] Ambulatory BMSBuilding:B [place] 18 MS.[facility] Repository 06/16/2018/06/16/20 [id number] Ambulatory BMSBuilding:B [place] 18 MS.[facility] Repository 06/11/2018/06/12/20 [id number] Ambulatory [address] Repository 06/10/2018/06/10/20 [id number] Ambulatory [address] [facility] Hospital ing:LAB Repository 06/02/2018 [id number] [facility] ing:PSN Repository 06/02/2018 [id number] Ambulatory BMSBuilding:[facility] Repository 05/27/2018 [id number] Ambulatory [facility] Hospital ing:EMPH Repository 05/21/2018 [id number] [facility] Rep[facility] 05/21/2018 [id number] Ambulatory BMSBuilding:[facility] Repository 05/19/2018/05/19/20 [id number] Ambulatory BMSBuilding:Melvin Cruz MS.[facility] Repository 05/14/2018/05/15/20 [id number] Ambulatory [address] Repository 05/13/2018 [id number] Ambulatory [facility] Hospital ing:LAB Repository 04/16/2018/04/17/20 [id number] Ambulatory [address] [place] Repository 04/14/2018/04/16/20 [id number] Ambulatory [address] Repository 04/14/2018/04/14/20 [id number] Ambulatory [address] Repository 04/14/2018/04/20/20 [id number] Ambulatory [address] Repository 03/28/2018/03/28/20 [id number] Ambulatory BMSBuilding:W [place] 18 [facility] Repository 03/27/2018/03/28/20 [id number] [place], Ambulatory [address] [facility] ing:PCURoom: Repository [id number]: 1 03/27/2018 [id number] [place], Ambulatory BMSBuilding:Melvin Pederson MS.[facility] Repository 03/27/2018 [id number] [place], Ambulatory BMSBuilding:Melvin Pederson MS.[facility] Repository 03/05/2018/03/06/20 [id number] Ambulatory [address] Repository 03/05/2018/03/06/20 [id number] Ambulatory [address] Repository 02/19/2018/02/20/20 [id number] Emergency [address] ing:ED Repository 01/15/2018/01/17/20 [id number] Ambulatory [address] Repository 01/14/[id number] [facility] ing:LAB Repository 01/06/2018/01/07/20 [id number] Ambulatory BMSBuilding:B [place] 18 MS.[facility] Repository 01/03/2018/01/05/20 [id number] [place], Inpatient [place] 18 Juli Encounter [facility] ing:PCURoom: Repository [id number]: 1 01/03/2018 [id number] [facility], Ambulatory BMSBuilding:Melvin Bustos MS.[facility] Repository 01/03/2018 [id number] [place], Ambulatory BMSBuilding:Melvin Bustos MS.[facility] Repository 12/18/2017/12/20/19 [id number] Ambulatory [address] Repository 12/17/[id number] [facility] ing:LAB.FUTUR Repository E 12/04/2017/12/05/19 [id number] Ambulatory BMSBuilding:B [place] 18 MS[facility] Repository 11/20/2017/12/09/19 [id number] Ambulatory [address] Repository 11/20/2017/12/10/19 [id number] Ambulatory [address] Repository PAYERS PAYERS ENCOUNTER GUARANTOR PAYER SUBSCRIBER SOURCE 10/14/2018 DALE Perez Primary Insurance:[facility] DALE Jaquez [id number] [facility] [id number], [place] Number: Repository [address]Jda: (846) [id number] [phone] () Date:7477-78-17TF [address] [address]FBFRLWHZV, [place] [address]RF: CHECK WEBSITE 10/14/2018 Secondary NOT GIVENUNK [place] Insurance:SELF PAY [facility] Number: Effective Repository Date:2018-09-28 10/04/2018 DALE Perez Primary Insurance:[facility] DALE Perez [place] [id number] [facility] [id number], [place] Number: Repository [address]Qdn: 330 [id number] [phone] (HP) Date:0124-57-04VU [address] [address]ZJFNUOITK, [place] [address]GL: CHECK WEBSITE 10/04/2018 Secondary NOT GIVENUNK [place] Insurance:SELF PAY [facility] Number: Effective Repository Date:2018-10-04 09/17/2018 DALE Perez Primary Insurance:[facility] DALE Perez [place] [id number] [facility] [id number], [place] Number: Repository 65[address]Nag: 330 [id number] [phone] (HP) Date:1958-77-35VN [facility] [address]NABBQCTHY, [place] [address]XB: CHECK WEBSITE 09/17/2018 Secondary NOT GIVENUNK [place] Insurance:SELF PAY [facility] Number: Effective Repository Date:2018-09-02 09/14/2018 DALE Perez Primary Insurance:[facility] DALE Perez [place] [id number] [facility] [id number], [place] Number: Repository [address]Mjq: 330 [id number] [phone] (HP) Date:2170-68-42BF [address] [address]JWAYCDLJV, [place] [address]ZB: CHECK WEBSITE 09/14/2018 Secondary NOT GIVENUNK [place] Insurance:SELF PAY [facility] Number: Effective Repository Date:2018-09-14 08/31/2018 DALE Perez Primary Insurance:[facility] DALE Perez [place] [id number] [facility] 0764-64-66XFFCisco, [place] Number: Repository [address]Eks: 330 [id number] [phone] (HP) Date:7550-29-52FJ [address] [address]LBWVEMJCM, [place] [address]CE: CHECK WEBSITE 08/31/2018 Secondary NOT GIVENUNK [place] Insurance:SELF PAY [facility] Number: Effective Repository Date:2018-08-31 08/03/2018 DALE Perez Primary Insurance:[facility] DALE Veraoster [id number] [facility] [id number] Number: Repository [address]Bbw: 330 [id number] [phone] (HP) Date:6914-63-33UF [address] [address]LYIIXOBAG, [place] [address]NI: CHECK WEBSITE 08/03/2018 Secondary NOT GIVENUNK [place] Insurance:SELF PAY [facility] Number: Effective Repository Date:2018-08-03 07/30/2018 DALE P Primary Insurance:[facility] DALE Perez [place] [id number] [facility] [id number] Number: Repository [address]Suk: 330 [id number] [phone] (HP) Date:5893-48-47RD [address] [address]YPVTCOZIP, [place] [address]MT: CHECK WEBSITE 07/30/2018 Secondary NOT GIVENUNK [place] Insurance:SELF PAY [facility] Number: Effective Repository Date:2018-07-30 07/03/2018 DALE Perez Primary Insurance:[facility] DALE Perez [place] [id number] [facility] [id number] [place] [address] Number: Repository [address]Zts: 330 [id number] [phone] (HP) Date:9010-99-23SA [address] [address]JFMSTAFOJ, [place] [address]UO: CHECK WEBSITE 07/03/2018 Secondary NOT GIVENUNK [place] Insurance:SELF PAY [facility] Number: Effective Repository Date:2018-07-01 07/02/2018 DALE Perez Primary Insurance:[facility] DALE Perez [place] [id number] [facility]: [place] 678863-04-12[place] Number: Repository [address]Szd: (566) [id number] [phone] (HP) Date:2991-42-73KK [address] [address]AHROARTNQ, [place] [address]UU: CHECK WEBSITE 07/02/2018 Secondary DALE P [place] Insurance:MEDICARE A HOUSTONDOB: Community ONLYPolicy Number: [id number] Hospital [id number] AEffective Repository Date:2018-07-02 07/02/2018 Tertiary NOT GIVENUNK [place] Insurance:SELF PAY [facility] Number: Effective Repository Date:2018-07-02 06/26/2018 DALE P Primary Insurance:[facility] DALE P [place] [id number] [facility]: [facility] 1916-34-44RGBCisco, [place] Number: Repository [address]Wnu: 330 [id number] [phone] (HP) Date:0891-50-95SF [address] [address]HPMPJGYDJ, [place] [address]QU: CHECK WEBSITE 06/26/2018 Secondary DALE P [place] Insurance:MEDICARE A HOUSTONDOB: Community ONLYPoly Number: [id number] Hospital [id number] Repository Date:2018-06-26 06/26/2018 Tertiary NOT GIVENUNK [place] Insurance:SELF PAY [facility] Number: Effective Repository Date:2018-06-26 06/21/2018 DALE P Primary Insurance:[facility] DALE [address] [place] [id number] [facility] 6609-38-70OVBCisco, [place] Number: Repository [address]Fnk: 330 [id number] [phone] (HP) Date:7823-45-82RS [address] [address]YVDZJFJND, [place] [address]XH: CHECK WEBSITE 06/21/2018 Secondary DALE P [place] Insurance:MEDICARE A HOUSTONDOB: Community ONLYPolicy Number: [id number] Hospital [id number] AEffective Repository Date:2018-06-21 06/21/2018 Tertiary NOT GIVENUNK [place] Insurance:SELF PAY [facility] Hospital Number: Effective Repository Date:2018-06-21 06/21/2018 DALE Perez Primary Insurance:[facility] DALE Chris Jaquez [id number] [facility] 2946-66-94NUDCisco, [place] Number: Repository [address]Dvz: 330 [id number] [phone] (HP) Date:1120-29-05NM [address] [address]QHVOOOPYH, [place] [address]HM: CHECK WEBSITE 06/21/2018 Secondary NOT GIVENUNK [place] Insurance:SELF PAY [facility] Number: Effective Repository Date:2018-06-21 06/21/2018 DALE Perez Primary Insurance:[facility] DALE Perez [place] [id number] [facility] [id number] Number: Repository [address]Mfk: 330 [id number] [phone] (HP) Date:2989-49-33SK [address] [address]XZLYHSETM, [place] [address]KB: CHECK WEBSITE 06/21/2018 Secondary NOT GIVENUNK [place] Insurance:SELF PAY [facility] Number: Effective Repository Date:2018-06-21 06/21/2018 DALE Perez Primary Insurance:[facility] DALE Perez [place] [id number] [facility] 1865-10-88NDXCisco, [place] Number: Repository [address]Lmo: 330 [id number] [phone] (HP) Date:2028-08-90DG [address] [address]KTXRNOTBX, [place] [address]LC: CHECK WEBSITE 06/21/2018 Secondary NOT GIVENUNK [place] Insurance:SELF PAY [facility] Number: Effective Repository Date:2018-06-21 06/19/2018 DALE Perez Primary Insurance:[facility] DALE Perez [place] [id number] [facility]: [place] 678863-04-12[place], [place] Number: Repository [address]Sys: 330 [id number] [phone] (HP) Date:7234-13-93GC [address] [address]BJYGQCFZY, [place] [address]RI: CHECK WEBSITE 06/19/2018 Secondary NOT GIVENUNK [place] Insurance:SELF PAY [facility] Number: Effective Repository Date:2018-06-16 06/19/2018 DALE P Primary Insurance:[facility] DALE P [place] [id number] [facility]: [facility] 6381-01-84TUCCisco, [place] Number: Repository [address]Yic: 330 [id number] [phone] (HP) Date:3107-53-25SX [address] [address]MLZNPOBDE, [place] [address]QL: CHECK WEBSITE 06/19/2018 Secondary NOT GIVENUNK [place] Insurance:SELF PAY [facility] Number: Effective Repository Date:2018-06-19 06/18/2018 DALE P Primary Insurance:[facility] DALE P [place] [id number] [facility]: [facility] [id number] Number: Repository [address]Pcs: 330 [id number] [phone] (HP) Date:0266-25-70DO [address] [address]UKMGQHMTK, [place] [address]GP: CHECK WEBSITE 06/18/2018 Secondary DALE P [place] Insurance:[facility] Number: [id number] Hospital [id number] AEffective Repository Date:2018-05-19 06/18/2018 Tertiary NOT GIVENUNK [place] Insurance:SELF PAY [facility] Number: Effective Repository Date:2018-06-11 06/16/2018 DALE P Primary Insurance:[facility] DALE P [place] [id number] [facility]: [facility] 0050-43-62TEPCisco, [place] Number: Repository [address]Yis: 330 [id number] [phone] (HP) Date:7612-02-27PB [address] [address]SNYUALOKY, [place] [address]JO: CHECK WEBSITE 06/16/2018 Secondary NOT GIVENUNK [place] Insurance:SELF PAY [facility] Number: Effective Repository Date:2018-06-16 06/10/2018 DALE Perez Primary Insurance:[facility] DALE Chris VeraKechi [id number] [facility]: [facility] 8061-58-58QDUCisco, [place] Number: Repository [address]Efh: 330 [id number] [phone] (HP) Date:7496-98-35SC [address] [address]CGTTTUODR, [place] [address]YX: CHECK WEBSITE 06/10/2018 Secondary NOT GIVENUNK [place] Insurance:SELF PAY [facility] Number: Effective Repository Date:2018-06-10 06/02/2018 DALE Perez Primary Insurance:[facility] DALE Chris VeraKechi [id number] [facility]: [facility] 8094-17-51NRSCisco, [place] Number: Repository [address]Cel: 330 [id number] [phone] () Date:1921-30-86RZ [address] [address]EZEFWWJSI, [place] [address]MQ: CHECK WEBSITE 06/02/2018 Secondary NOT GIVENUNK [place] Insurance:SELF PAY [facility] Number: Effective Repository Date:2018-05-19 06/02/2018 DALE Perez Primary Insurance:[facility] DALE Perez [place] [id number] [facility] 1257-94-34YUMCisco, [place] Number: Repository [address]Qcd: 330 [id number] [phone] () Date:8629-58-02WV [address] [address]PQKYCMZFX, [place] [address]TL: CHECK WEBSITE 06/02/2018 Secondary NOT GIVENUNK [place] Insurance:SELF PAY [facility] Number: Effective Repository Date:2018-06-02 05/27/2018 DALE Perez Primary NOT GIVENUNK [place] [id number] Insurance:[place]LF [place] Number: Effective Repository [address]Eag: (330) Date:2018-05-27 [phone] ([phone] 05/21/2018 DALE Perez Primary Insurance:[facility] DALE Perez [place] [id number] [place] [address]B: [facility] 6211-02-39FHLCisco, [place] Number: Repository [address]Ekm: 330 [id number] [phone] (HP) Date:3828-21-76XI [address] [address]YGQCNLCAI, [place] [address]IA: CHECK WEBSITE 05/21/2018 Secondary NOT GIVENUNK [place] Insurance:SELF PAY [facility] Number: Effective Repository Date:2018-05-19 05/21/2018 DALE P Primary Insurance:[facility] DALE P [place] [id number] [facility]: [facility] 5670-15-24DTUCisco, [place] Number: Repository [address]Rsb: 330 [id number] [phone] (HP) Date:0270-51-93PN [address] [address]XXOMIHXZG, [place] [address]SF: CHECK WEBSITE 05/21/2018 Secondary NOT GIVENUNK [place] Insurance:SELF PAY [facility] Number: Effective Repository Date:2018-05-21 05/19/2018 DALE P Primary Insurance:[facility] DALE P [place] [id number] [facility]: [facility] [id number], [place] Number: Repository [address]Gyb: 330 [id number] [phone] (HP) Date:1177-46-94MJ [address] [address]MGRAYUUFI, [place] [address]ZC: CHECK WEBSITE 05/19/2018 Secondary DALE P [place] Insurance:MEDICARE A PRATTDOB: [facility] Number: [id number] Hospital [id number] AEffective Repository Date:2018-05-18 05/19/2018 Tertiary NOT GIVENUNK [place] Insurance:SELF PAY [facility] Number: Effective Repository Date:2018-05-19 05/13/2018 DALE P Primary Insurance:[facility] DALE P [place] [id number] [facility]: [facility] 2956-12-46EFYCisco, [place] Number: Repository [address]Qyn: 330 [id number] [phone] (HP) Date:3263-88-87VD [address] [address]HYYNGKYHM, [place] [address]HA: CHECK WEBSITE 05/13/2018 Secondary NOT GIVENUNK [place] Insurance:SELF PAY [facility] Number: Effective Repository Date:2018-05-13 03/28/2018 DALE Perez Primary Insurance:[facility] DALE Veraoster [id number] [facility] [id number] Number: Repository [address]Lns: 330 [id number] [phone] (HP) Date:5569-96-04LO [address] [address]EZGXLUHTM, [place] [address]KF: CHECK WEBSITE 03/28/2018 Secondary NOT GIVENUNK [place] Insurance:SELF PAY [facility] Number: Effective Repository Date:2018-03-28 03/27/2018 DALE Perez Primary Insurance:[facility] DALE Perez [place] [id number] [facility] [id number] Number: Repository [address]Uwr: 330 [id number] [phone] (HP) Date:7747-49-62KS [address] [address]EQILGKNIL, [place] [address]XD: CHECK WEBSITE 03/27/2018 Secondary NOT GIVENUNK [place] Insurance:SELF PAY [facility] Number: Effective Repository Date:2018-03-27 03/27/2018 DALE Perez Primary Insurance:[facility] DALE [place] [id number] [facility] [id number] Number: Repository [address]Trr: 330 [id number] [phone] (HP) Date:0092-28-04ET [address] [address]HJEPZQZQL, [place] [address]NB: CHECK WEBSITE 03/27/2018 Secondary NOT GIVENUNK [place] Insurance:SELF PAY [facility] Number: Effective Repository Date:2018-03-27 03/27/2018 DALE Perez Primary Insurance:[facility] DALE Veraoster [id number] [facility]: [place] 678863-04-12[place] Number: Repository 7[address]Cok: 330 [id number] [phone] (HP) Date:1069-79-06PT [address] [address]147QFHNXVQZG, [place] [address]HG: CHECK WEBSITE 03/27/2018 Secondary NOT GIVENUNK [place] Insurance:SELF PAY [facility] Number: Effective Repository Date:2018-03-27 02/19/2018 DALE P Primary Insurance:[facility] DALE P [place] [id number] [facility] 8959-58-80TMMCisco, [place] Number: Repository [address]Mvw: 330 [id number] [phone] (HP) Date:2008-23-93WG [address] [address]QJBBVQYAN, [place] [address]YZ: CHECK WEBSITE 02/19/2018 Secondary NOT GIVENUNK [place] Insurance:SELF PAY [facility] Number: Effective Repository Date:2018-02-19 01/14/2018 DALE P Primary Insurance:[facility] DALE P [place] [id number] [facility] 2852-86-03SHJCisco, [place] Number: Repository [address]Wcb: 330 [id number] [phone] () Date:6834-92-38YF [address] [address]CCZWTGJUO, [place] [address]JA: CHECK WEBSITE 01/14/2018 Secondary NOT GIVENUNK [place] Insurance:SELF PAY [facility] Number: Effective Repository Date:2018-01-14 01/06/2018 DALE P Primary Insurance:[facility] DALE P [place] [id number] [facility] 5192-12-26GGKCisco, [place] Number: Repository [address]Frr: 330 [id number] [phone] (HP) Date:5253-67-95ZV [address] [address]GFTQJTQOB, [place] [address]PB: CHECK WEBSITE 01/06/2018 Secondary NOT GIVENUNK [place] Insurance:SELF PAY [facility] Number: Effective Repository Date:2018-01-02 01/03/2018 DALE Perez Primary Insurance:[facility] DALE Chris Jaquez [id number] [facility] 7368-47-04NNFCisco, [place] Number: Repository [address]Yoe: 330 [id number] [phone] (HP) Date:7396-53-66FM [address] [address]AWVXLSJNJ, [place] [address]TZ: CHECK WEBSITE 01/03/2018 Secondary NOT GIVENUNK [place] Insurance:SELF PAY [facility] Number: Effective Repository Date:2018-01-03 01/03/2018 DALE Perez Primary Insurance:[facility] DALE [place] [id number] [facility] 8699-49-27QJACisco, [place] Number: Repository [address]Ywz: 330 [id number] [phone] (HP) Date:9289-54-43OF [address] [address]WLPUJCKEY, [place] [address]SX: CHECK WEBSITE 01/03/2018 Secondary NOT GIVENUNK [place] Insurance:SELF PAY [facility] Number: Effective Repository Date:2018-01-03 01/03/2018 DALE Perez Primary Insurance:[facility] DALE Perez [place] [id number] [facility] 8326-44-19NQLCisco, [place] Number: Repository [id number]: [id number] [phone] (HP) Date:[id number] [address], [place] [address]OY: CHECK WEBSITE 01/03/2018 Secondary NOT GIVENUNK Kechi Insurance:SELF PAY [facility] Number: Effective Repository Date:2018-01-03 12/17/2017 DALE Perez Primary Insurance:[facility] DALE Perez Kechi [id number] [facility] [place] [id number], [place] Number: Repository [id number]: 330 [id number] [phone] (HP) Date:8001-10-88NM [address] [address], [place] [address]XK: CHECK WEBSITE 12/17/2017 Secondary NOT GIVENUNK Leonid Insurance:SELF PAY [facility] Number: Effective Repository Date:2017-11-24 12/04/2017 DALE Perez Primary DALE Jaquez [id number] Insurance:MEDICAL PRATTDOB: [facility] [id number] Number: Repository [id number]: (374) [id number] [phone] () Date:[id number] [address], [place] [address]PN: 12/04/2017 Secondary NOT GIVENUNK Leonid Insurance:SELF PAY [facility] Number: Effective Repository Date:2017-12-04
== END 2018-10-28 14:58 | disposition home or self-care (01) ==
LOC: LAB 13:58
PROVIDERS: Family Provider Family Medicine; PCP Family Medicine; Referring Provider Internal Medicine Hematology & Oncology; Visit Provider Internal Medicine Hematology & Oncology
DX: D75.1 Secondary polycythemia (principal)
CPT/HCPCS: 36415; 82728; 85027

== ENCOUNTER 2018-11-16 10:59 | Outpatient (RCR) | payer OTHER, SELFPAY ==
[2018-11-16 11:39] LABS: Absolute Lymphocyte Count 1.35 X10^3/ul (0.83-4.51); Absolute Neutrophil Count 3.1 X10^3/uL (2.0-7.7); Basophil# 0.16 X10^3/uL; Basophil% 2.9 % (0-1); Eosinophil# 0.21 X10^3/uL; Eosinophils% 3.8 % (0-5); Hematocrit 45.2 % (40-54); Hemoglobin 13.6 g/dl (13.0-16.5); Lymphocyte # 1.35 X10^3/ul (4.0); Lymphocyte % 24.7 % (19-41); Mean Corp Hgb Conc 30.1 g/gl (32-36); Mean Corpuscular Hgb 24.4 pg (27.0-32.0); Mean Corpuscular Volume 81.1 fL (80-94); Mean Platelet Vol. 9.4 fl (6.2-12.0); Monocyte# 0.62 X10^3/uL; Monocyte% 11.3 % (0-10); Neutrophil # 3.12 X10^3/uL (2.7-7.7); Neutrophil % 57.1 % (47-70); Platelet Count 173 K/mm3 (150-450); RBC Distribution Width CV 23.3 % (11.6-14.6); Red Blood Count 5.57 M/mm3 (4.6-6.2); White Blood Count 5.5 K/mm3 (4.4-11.0)
[2018-11-16 11:41] LABS: Differential Indicated SCAN CRITERIA MET; POSITIVE COUNT NO; POSITIVE DIFFERENTIAL NO; POSITIVE MORPHOLOGY YES
[2018-11-16 11:48] LABS: Ferritin 13 ng/mL (26-388)
== END 2018-11-26 13:45 | disposition home or self-care (01) ==
LOC: LAB 10:59
PROVIDERS: Family Provider Family Medicine; PCP Family Medicine; Referring Provider Internal Medicine Hematology & Oncology; Visit Provider Internal Medicine Hematology & Oncology
DX: D75.1 Secondary polycythemia (principal)
CPT/HCPCS: 36415; 82728; 85025

== ENCOUNTER 2018-12-14 10:38 | Outpatient (RCR) | payer OTHER, SELFPAY ==
[2018-11-30 11:23] LABS: Hematocrit 47.2 % (40-54); Hemoglobin 13.3 g/dl (13.0-16.5); Mean Corp Hgb Conc 28.2 g/gl (32-36); Mean Corpuscular Hgb 23.8 pg (27.0-32.0); Mean Corpuscular Volume 84.3 fL (80-94); Platelet Count 180 K/mm3 (150-450); RBC Distribution Width CV 21.8 % (11.6-14.6); RBC Distribution Width SD 67.5 fl (35.1-43.9); White Blood Count 6.1 K/mm3 (4.4-11.0)
[2018-11-30 11:24] LABS: Scan Indicated on CBC? Y/N YES- FLAGS NOTED
[2018-11-30 11:25] LABS: Anion Gap 6 (5-15); BUN 13 mg/dL (7-18); Calcium,Total 8.4 mg/dL (8.5-10.1); Chloride 104 mmol/L (98-107); Cholesterol 138 mg/dL (200); EST Glomerular Filtration Rate 59 mL/min (>60); Est Glom Filt Rate - Afr Amer 71 mL/min (>60); Ferritin 10 ng/mL (26-388); Glucose 163 mg/dL (74-106); High Density Lipoprotein 33 mg/dL; Potassium 4.1 mmol/L (3.5-5.1); Sodium Level 137 mmol/L (136-145); T4 Free Direct 1.32 ng/dL (0.76-1.46); Thyroid Stim Hormone (TSH) 1.23 uIU/mL (0.358-3.74); Triglycerides 209 mg/dL; Very Low Density Lipoprotein 42 mg/dL (5-40)
[2018-12-14 11:14] LABS: Erythrocyte Sedimentation Rate 2 mm/hr (0-20)
[2018-12-14 11:19] LABS: Absolute Lymphocyte Count 1.24 X10^3/ul (0.83-4.51); Absolute Neutrophil Count 2.8 X10^3/uL (2.0-7.7); Basophil# 0.12 X10^3/uL; Basophil% 2.5 % (0-1); Eosinophil# 0.22 X10^3/uL; Eosinophils% 4.6 % (0-5); Hematocrit 44.4 % (40-54); Hemoglobin 12.5 g/dl (13.0-16.5); Lymphocyte # 1.24 X10^3/ul (4.0); Lymphocyte % 25.9 % (19-41); Mean Corp Hgb Conc 28.2 g/gl (32-36); Mean Corpuscular Hgb 23.7 pg (27.0-32.0); Mean Corpuscular Volume 84.1 fL (80-94); Mean Platelet Vol. 11.3 fl (6.2-12.0); Monocyte# 0.37 X10^3/uL; Monocyte% 7.7 % (0-10); Neutrophil # 2.82 X10^3/uL (2.7-7.7); Neutrophil % 59.1 % (47-70); Platelet Count 201 K/mm3 (150-450); RBC Distribution Width CV 19.7 % (11.6-14.6); Red Blood Count 5.28 M/mm3 (4.6-6.2); White Blood Count 4.8 K/mm3 (4.4-11.0)
[2018-12-14 11:23] LABS: POSITIVE COUNT NO; POSITIVE DIFFERENTIAL NO; POSITIVE MORPHOLOGY NO
[2018-12-14 11:38] LABS: CRP < 2.90 mg/L (0.0-3.0); Ferritin 8 ng/mL (26-388); Rheumatoid Factor < 10.0 IU/mL (<15); Vitamin D,25 Hydroxy 24.9 ng/mL (29.95-100.01)
[2018-12-15 22:07] LABS: ANTINUCLEAR ANTIBODIES DIRECT Positive (Negative); Anti-Centromere B Ab <0.2 AI (0.0-0.9); Anti-Chromatin <0.2 AI (0.0-0.9); Anti-Jo <0.2 AI (0.0-0.9); Anti-Scleroderma-70 AB <0.2 AI (0.0-0.9); RNP Ab 1.1 AI (0.0-0.9); SJOGREN'S Anti-SS-A test < 0.2 AI (0.0-0.9); SJOGREN'S Anti-SS-B test < 0.2 AI (0.0-0.9); Smith Ab <0.2 AI (0.0-0.9)
[2018-12-16 11:21] LABS: CCP IgG Antibodies 2 units (0-19)
[2018-12-16 11:23] LABS: Anti-dsDNA Ab <1 IU/mL (0-9)
== END 2018-12-14 11:00 | disposition home or self-care (01) ==
LOC: LAB 10:38
PROVIDERS: Family Provider Family Medicine; PCP Family Medicine; Referring Provider Internal Medicine Hematology & Oncology; Visit Provider Internal Medicine Hematology & Oncology
DX: E11.9 Type 2 diabetes mellitus without complications (principal); I10 Essential (primary) hypertension; E03.9 Hypothyroidism, unspecified; M06.4 Inflammatory polyarthropathy; D75.1 Secondary polycythemia; E55.9 Vitamin D deficiency, unspecified
CPT/HCPCS: 36415; 80048; 80061; 82306; 82728; 84439; 84443; 85025; 85027; 85652; 86038; 86140; 86200; 86225; 86235; 86431

== ENCOUNTER 2019-01-03 16:50 | Emergency (ER) | payer OTHER, SELFPAY ==
[2019-01-03 16:50] VITALS: BMI 43.2
[2019-01-03 16:51] VITALS: BP 140/64; PULSE 103; RESP 18; TEMP 36.8; O2SAT 96; BMI 42.7
--- NOTE | 2019-01-03 17:30 | CT_ITS ---
STUDY: CT ABDOMEN AND PELVIS WITHOUT CONTRAST REASON FOR EXAM: Male, 63 years old. Left groin pain. History of kidney cancer with partial right nephrectomy. RADIATION DOSAGE (If Supplied By Facility): CTDIvol = ( 23.96 ) mGy, DLP = ( 1472.99 ) mGycm TECHNIQUE: Transaxial images were obtained from the dome of the diaphragm to the symphysis pubis without oral contrast, and without intravenous contrast. Sagittal and coronal images were reconstructed. Individualized dose optimization techniques were used for this CT. COMPARISON: 11/21/2017 FINDINGS: Evaluation of the abdominal viscera is limited in the absence of intravenous contrast. The visualized lung bases are clear. The visualized portions of the heart and pericardium are within normal limits. There are no calcified gallstones present. The liver is low in density, consistent with fatty infiltration. The spleen is normal in size. The pancreas demonstrates an unremarkable unenhanced appearance. The adrenal glands are within normal limits. There are stable postsurgical changes right partial nephrectomy and the right kidney. No evidence of recurrent disease is seen on this noncontrast exam. There are no renal or ureteral stones. There is no hydronephrosis. Normal visualized stomach. There is no bowel obstruction or inflammation. The appendix is not visualized, but there are no findings to suggest acute appendicitis. The aorta is normal in caliber. There is no abdominal or pelvic free air, free fluid, fluid collection or lymphadenopathy. There are no destructive osseous lesions. There are stable degenerative changes noted in the spine. CT/Abdomen/Pelvis without Cont IMPRESSION: Status post right partial nephrectomy. No evidence of recurrent disease is demonstrated on this noncontrast CT. No urinary calculi. No hydronephrosis. No bowel obstruction or inflammation. Fatty liver. Electronically Signed: Shaheen Muonz, at 18:12 EDT Tel , Service support ,
--- NOTE | 2019-01-03 19:13 | ED.DCSUM_ITS ---
- ER Visit Summary Date of Service: 01/03/19 Chief Complaint: Left leg pain History of Present Illness: The patient is a 63 M who presents the emergency department with left leg pain. He states that it began late this morning. He does note that he had one episode yesterday. He describes it as sharp pulsating and lasting about 30 seconds then resolves for a while. He points to the left upper thigh just above the inguinal ligament. It is several inches lateral to the vascular bundle. States he has had a left hip injection recently with Dr. Solis. 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 Physical Examination: Afebrile vital signs are stable Gen: Well-nourished well-developed overly obese Head: Normocephalic atraumatic Eyes: Perrl EOMI ENT: TMs clear no rhinorrhea moist mucous membranes Neck: Supple no lymphadenopathy no JVD nontender CVS: Regular rate rhythm no murmurs normal S1-S2 Respiratory: No distress clear to auscultation bilaterally chest nontender Abdomen: Soft nontender nondistended normal bowel sounds no masses Back: Nontender Extremity: Nontender no edema Skin: Normal color no rash Neuro: alert orientated ?3 CN II-XII intact normal strength sensation reflexes gait cerebellar Psych: Normal affect normal mood Test Results: The abdomen pelvis does not demonstrate anything to really explain the patient's pain. Emergency Department Course and Treatment: There is no rash. We talked about possibility of shingles. This could be muscle spasm as its sharp pulsating and resolves. I cannot really reproduce it. I will write for some low-dose Valium for him to try tonight to see if that helps. Suggest oral hydration follow-up with primary care if not improving. Impression: 1. Left abdominal muscle spasm This note was generated with [employer] dictation software. It may contain incorrect words, spelling, and punctuation that were not noted in review of the chart prior to signing ED Disposition - Plan for ED Patient: Disposition: Home or Assisted Living Instructions: ED Spasm Muscle Prescriptions: Diazepam [Valium] 5 mg PO Q8 PRN #10 tab PRN Reason: Muscle Spasm Referrals: Sebastien Stahl MD [Primary Care Provider] - 3-5 Days
[2019-01-03] MEDS: diazePAM 5 MG Tablet PO (19:24)
[2019-01-03 19:27] VITALS: BP 116/70; PULSE 100; RESP 20; O2SAT 97
== END 2019-01-03 19:28 | disposition home or self-care (01) ==
PROVIDERS: Emergency Provider Emergency Medicine; Family Provider Family Medicine; PCP Family Medicine
DX: M62.838 Other muscle spasm (principal); E66.9 Obesity, unspecified; D45 Polycythemia vera; Z86.718 Personal history of other venous thrombosis and embolism; Z86.711 Personal history of pulmonary embolism; Z79.02 Long term (current) use of antithrombotics/antiplatelets; Z79.82 Long term (current) use of aspirin
CPT/HCPCS: 74176; 99282

== ENCOUNTER → 2019-01-05 | Outpatient (CLI) | payer OTHER, SELFPAY ==
[2019-01-05 09:36] VITALS: BMI 43.0
--- NOTE | 2019-01-05 10:26 | RAD_ITS ---
STUDY: X-RAY CHEST REASON FOR EXAM: Male, 63 years old. Chest pain and cough TECHNIQUE: 2 PA and 2 lateral views of the chest. COMPARISON: 06/21/2018 FINDINGS: There are interstitial fibrotic changes of the lungs. There is no demonstrated pleural abnormality. Normal size heart. Normal mediastinum and selina. Normal visualized pulmonary arteries. Normal visualized aortic arch and descending thoracic aorta. There are diffuse degenerative changes of the visualized thoracic spine. Normal visualized ribs, clavicles, and shoulders. There is no demonstrated abnormality of the visualized soft tissue structures of the upper abdomen. RAD/Chest PA and Lateral IMPRESSION: Degenerative changes, as described above. No demonstrated acute cardiopulmonary process. Electronically Signed: Dell Whitaker MD at 10:58 EDT , Service support ,
== END | disposition home or self-care (01) ==
LOC: HPRAD 10:25
PROVIDERS: Family Provider Family Medicine; PCP Family Medicine; Referring Provider Internal Medicine Critical Care Medicine; Visit Provider Internal Medicine Critical Care Medicine
DX: R06.09 Other forms of dyspnea (principal)
CPT/HCPCS: 71046

== ENCOUNTER 2019-01-25 11:40 | Outpatient (RCR) | payer OTHER, SELFPAY ==
[2018-12-25 09:30] VITALS: BMI 42.7
[2018-12-28 13:59] LABS: Absolute Lymphocyte Count 1.51 X10^3/ul (0.83-4.51); Absolute Neutrophil Count 5.7 X10^3/uL (2.0-7.7); Basophil% 1.2 % (0-1); Eosinophil# 0.32 X10^3/uL; Eosinophils% 3.8 % (0-5); Hematocrit 44.1 % (40-54); Hemoglobin 12.6 g/dl (13.0-16.5); Lymphocyte # 1.51 X10^3/ul (4.0); Lymphocyte % 17.8 % (19-41); Mean Corp Hgb Conc 28.6 g/gl (32-36); Mean Corpuscular Volume 83.8 fL (80-94); Mean Platelet Vol. 9.9 fl (6.2-12.0); Monocyte# 0.83 X10^3/uL; Monocyte% 9.8 % (0-10); Neutrophil # 5.71 X10^3/uL (2.7-7.7); Neutrophil % 67.3 % (47-70); Platelet Count 258 K/mm3 (150-450); RBC Distribution Width CV 18.7 % (11.6-14.6); RBC Distribution Width SD 57.5 fl (35.1-43.9); Red Blood Count 5.26 M/mm3 (4.6-6.2); White Blood Count 8.5 K/mm3 (4.4-11.0)
[2018-12-28 14:15] LABS: POSITIVE COUNT NO; POSITIVE DIFFERENTIAL NO; POSITIVE MORPHOLOGY NO
[2018-12-28 14:20] LABS: Ferritin 7 ng/mL (26-388)
[2019-01-12 12:22] LABS: Absolute Lymphocyte Count 1.45 X10^3/ul (0.83-4.51); Absolute Neutrophil Count 4.8 X10^3/uL (2.0-7.7); Basophil# 0.18 X10^3/uL; Basophil% 2.4 % (0-1); Eosinophil# 0.22 X10^3/uL; Hematocrit 43.9 % (40-54); Hemoglobin 12.3 g/dl (13.0-16.5); Lymphocyte # 1.45 X10^3/ul (4.0); Lymphocyte % 19.5 % (19-41); Mean Corpuscular Hgb 23.2 pg (27.0-32.0); Mean Corpuscular Volume 82.7 fL (80-94); Mean Platelet Vol. 10.4 fl (6.2-12.0); Monocyte# 0.78 X10^3/uL; Monocyte% 10.5 % (0-10); Neutrophil % 64.3 % (47-70); Platelet Count 154 K/mm3 (150-450); RBC Distribution Width CV 17.6 % (11.6-14.6); RBC Distribution Width SD 53.4 fl (35.1-43.9); Red Blood Count 5.31 M/mm3 (4.6-6.2); White Blood Count 7.5 K/mm3 (4.4-11.0)
[2019-01-12 12:28] LABS: POSITIVE COUNT NO; POSITIVE DIFFERENTIAL NO; POSITIVE MORPHOLOGY NO
[2019-01-12 13:30] LABS: Ferritin 6 ng/mL (26-388)
[2019-01-25 12:05] LABS: Absolute Lymphocyte Count 1.69 X10^3/ul (0.83-4.51); Basophil# 0.23 X10^3/uL; Basophil% 2.7 % (0-1); Eosinophil# 0.64 X10^3/uL; Eosinophils% 7.6 % (0-5); Hematocrit 45.1 % (40-54); Hemoglobin 12.7 g/dl (13.0-16.5); Lymphocyte # 1.69 X10^3/ul (4.0); Mean Corp Hgb Conc 28.2 g/gl (32-36); Mean Corpuscular Volume 81.7 fL (80-94); Mean Platelet Vol. 9.7 fl (6.2-12.0); Monocyte# 0.84 X10^3/uL; Neutrophil # 5.01 X10^3/uL (2.7-7.7); Neutrophil % 59.5 % (47-70); POSITIVE COUNT NO; POSITIVE DIFFERENTIAL NO; POSITIVE MORPHOLOGY NO; Platelet Count 266 K/mm3 (150-450); RBC Distribution Width CV 17.6 % (11.6-14.6); RBC Distribution Width SD 52.4 fl (35.1-43.9); Red Blood Count 5.52 M/mm3 (4.6-6.2); White Blood Count 8.4 K/mm3 (4.4-11.0)
[2019-01-25 12:59] LABS: Ferritin 7 ng/mL (26-388)
== END 2019-01-26 16:00 | disposition home or self-care (01) ==
LOC: LAB 11:40
PROVIDERS: Family Provider Family Medicine; PCP Family Medicine; Referring Provider Internal Medicine Hematology & Oncology; Visit Provider Internal Medicine Hematology & Oncology
DX: D75.1 Secondary polycythemia (principal)
CPT/HCPCS: 36415; 82728; 85025

== ENCOUNTER 2019-02-23 08:49 | Outpatient (RCR) | payer OTHER, SELFPAY ==
[2019-01-27 11:54] VITALS: BMI 42.7
[2019-02-08 13:36] LABS: Absolute Lymphocyte Count 1.57 X10^3/ul (0.83-4.51); Absolute Neutrophil Count 4.5 X10^3/uL (2.0-7.7); Basophil# 0.21 X10^3/uL; Basophil% 2.9 % (0-1); Eosinophil# 0.41 X10^3/uL; Eosinophils% 5.7 % (0-5); Hematocrit 43.3 % (40-54); Hemoglobin 12.2 g/dl (13.0-16.5); Lymphocyte # 1.57 X10^3/ul (4.0); Lymphocyte % 21.7 % (19-41); Mean Corp Hgb Conc 28.2 g/gl (32-36); Mean Corpuscular Hgb 22.4 pg (27.0-32.0); Mean Corpuscular Volume 79.4 fL (80-94); Mean Platelet Vol. 10.1 fl (6.2-12.0); Monocyte# 0.55 X10^3/uL; Monocyte% 7.6 % (0-10); Neutrophil # 4.47 X10^3/uL (2.7-7.7); Neutrophil % 61.8 % (47-70); Platelet Count 140 K/mm3 (150-450); RBC Distribution Width CV 17.6 % (11.6-14.6); RBC Distribution Width SD 50.4 fl (35.1-43.9); Red Blood Count 5.45 M/mm3 (4.6-6.2); White Blood Count 7.2 K/mm3 (4.4-11.0)
[2019-02-08 13:42] LABS: Differential Indicated SCAN CRITERIA MET; POSITIVE COUNT NO; POSITIVE DIFFERENTIAL NO; POSITIVE MORPHOLOGY YES
[2019-02-08 14:00] LABS: Hypochromasia 1+; Microcytosis RARE; Platelet Estimate ADEQUATE (ADEQ); Polychromasia 1+
[2019-02-08 14:16] LABS: Ferritin 8 ng/mL (26-388); PSA,Total- Diagnostic 1.46 ng/mL (0.0-4.0)
[2019-02-23 10:06] LABS: Absolute Lymphocyte Count 1.36 X10^3/ul (0.83-4.51); Absolute Neutrophil Count 3.9 X10^3/uL (2.0-7.7); Basophil# 0.14 X10^3/uL; Basophil% 2.1 % (0-1); Eosinophil# 0.54 X10^3/uL; Eosinophils% 8.3 % (0-5); Hematocrit 42.2 % (40-54); Hemoglobin 11.8 g/dl (13.0-16.5); Lymphocyte # 1.36 X10^3/ul (4.0); Lymphocyte % 20.8 % (19-41); Mean Corpuscular Hgb 21.7 pg (27.0-32.0); Mean Corpuscular Volume 77.4 fL (80-94); Mean Platelet Vol. 11.3 fl (6.2-12.0); Monocyte% 9.2 % (0-10); Neutrophil # 3.89 X10^3/uL (2.7-7.7); Neutrophil % 59.4 % (47-70); POSITIVE COUNT NO; POSITIVE DIFFERENTIAL NO; POSITIVE MORPHOLOGY NO; Platelet Count 302 K/mm3 (150-450); RBC Distribution Width CV 18.7 % (11.6-14.6); RBC Distribution Width SD 51.3 fl (35.1-43.9); Red Blood Count 5.45 M/mm3 (4.6-6.2); White Blood Count 6.5 K/mm3 (4.4-11.0)
[2019-02-23 10:42] LABS: Ferritin 6 ng/mL (26-388)
== END 2019-02-23 10:00 | disposition home or self-care (01) ==
LOC: LAB 08:49
PROVIDERS: Family Provider Family Medicine; PCP Family Medicine; Referring Provider Internal Medicine Hematology & Oncology; Visit Provider Internal Medicine Hematology & Oncology
DX: D75.1 Secondary polycythemia (principal)
CPT/HCPCS: 36415; 82728; 84153; 85025

== ENCOUNTER → 2019-03-20 | Outpatient (CLI) | payer OTHER, SELFPAY ==
[2019-03-16 08:48] VITALS: BMI 42.7
[2019-03-22 17:13] LABS: Giardia Lamblia, Stool EIA Negative (Negative)
== END | disposition home or self-care (01) ==
LOC: LAB.FUTURE 03-22 12:50
PROVIDERS: Family Provider Family Medicine; PCP Family Medicine; Visit Provider Family Medicine
DX: R19.7 Diarrhea, unspecified (principal)
CPT/HCPCS: 87329; 87493; 87506

== ENCOUNTER 2019-03-22 10:37 | Outpatient (RCR) | payer OTHER, SELFPAY ==
[2019-02-27 08:35] VITALS: BMI 42.7
[2019-03-08 14:27] LABS: Absolute Lymphocyte Count 1.76 X10^3/ul (0.83-4.51); Absolute Neutrophil Count 4.1 X10^3/uL (2.0-7.7); Basophil# 0.17 X10^3/uL; Basophil% 2.4 % (0-1); Eosinophil# 0.37 X10^3/uL; Eosinophils% 5.2 % (0-5); Hematocrit 43.6 % (40-54); Hemoglobin 12.2 g/dl (13.0-16.5); Lymphocyte # 1.76 X10^3/ul (4.0); Lymphocyte % 24.7 % (19-41); Mean Corpuscular Hgb 21.7 pg (27.0-32.0); Mean Corpuscular Volume 77.6 fL (80-94); Monocyte# 0.71 X10^3/uL; Neutrophil # 4.11 X10^3/uL (2.7-7.7); Neutrophil % 57.7 % (47-70); Platelet Count 108 K/mm3 (150-450); RBC Distribution Width CV 18.6 % (11.6-14.6); RBC Distribution Width SD 51.3 fl (35.1-43.9); Red Blood Count 5.62 M/mm3 (4.6-6.2); White Blood Count 7.1 K/mm3 (4.4-11.0)
[2019-03-08 14:28] LABS: Differential Indicated SCAN CRITERIA MET; POSITIVE COUNT NO; POSITIVE DIFFERENTIAL NO; POSITIVE MORPHOLOGY YES
[2019-03-08 14:40] LABS: Ferritin 8 ng/mL (26-388)
[2019-03-22 11:38] LABS: Absolute Lymphocyte Count 1.43 X10^3/ul (0.83-4.51); Absolute Neutrophil Count 3.8 X10^3/uL (2.0-7.7); Basophil# 0.14 X10^3/uL; Basophil% 2.2 % (0-1); Eosinophil# 0.47 X10^3/uL; Eosinophils% 7.3 % (0-5); Hematocrit 43.4 % (40-54); Lymphocyte # 1.43 X10^3/ul (4.0); Lymphocyte % 22.2 % (19-41); Mean Corp Hgb Conc 27.6 g/gl (32-36); Mean Corpuscular Hgb 21.2 pg (27.0-32.0); Mean Corpuscular Volume 76.8 fL (80-94); Mean Platelet Vol. 11.2 fl (6.2-12.0); Monocyte# 0.63 X10^3/uL; Monocyte% 9.8 % (0-10); Neutrophil # 3.76 X10^3/uL (2.7-7.7); Neutrophil % 58.2 % (47-70); Platelet Count 308 K/mm3 (150-450); RBC Distribution Width CV 19.6 % (11.6-14.6); RBC Distribution Width SD 53.3 fl (35.1-43.9); Red Blood Count 5.65 M/mm3 (4.6-6.2); White Blood Count 6.5 K/mm3 (4.4-11.0)
[2019-03-22 11:42] LABS: POSITIVE COUNT NO; POSITIVE DIFFERENTIAL NO; POSITIVE MORPHOLOGY NO
[2019-03-22 12:14] LABS: Ferritin 6 ng/mL (26-388)
== END 2019-03-22 11:00 | disposition home or self-care (01) ==
LOC: LAB 10:37
PROVIDERS: Family Provider Family Medicine; PCP Family Medicine; Referring Provider Internal Medicine Hematology & Oncology; Visit Provider Internal Medicine Hematology & Oncology
DX: D75.1 Secondary polycythemia (principal)
CPT/HCPCS: 36415; 82728; 85025

== ENCOUNTER 2019-04-19 10:29 | Outpatient (RCR) | payer OTHER, SELFPAY ==
[2019-03-16 08:48] VITALS: BMI 42.7
[2019-04-02 11:10] LABS: Absolute Lymphocyte Count 1.39 X10^3/ul (0.83-4.51); Absolute Neutrophil Count 4.3 X10^3/uL (2.0-7.7); Basophil# 0.11 X10^3/uL; Basophil% 1.6 % (0-1); Eosinophils% 2.9 % (0-5); Hematocrit 41.6 % (40-54); Hemoglobin 11.6 g/dl (13.0-16.5); Lymphocyte # 1.39 X10^3/ul (4.0); Lymphocyte % 20.4 % (19-41); Mean Corp Hgb Conc 27.9 g/gl (32-36); Mean Corpuscular Hgb 21.9 pg (27.0-32.0); Mean Corpuscular Volume 78.6 fL (80-94); Mean Platelet Vol. 10.3 fl (6.2-12.0); Monocyte# 0.76 X10^3/uL; Monocyte% 11.2 % (0-10); Neutrophil # 4.33 X10^3/uL (2.7-7.7); Neutrophil % 63.8 % (47-70); POSITIVE COUNT NO; POSITIVE DIFFERENTIAL NO; Platelet Count 118 K/mm3 (150-450); RBC Distribution Width CV 19.1 % (11.6-14.6); RBC Distribution Width SD 54.6 fl (35.1-43.9); Red Blood Count 5.29 M/mm3 (4.6-6.2); White Blood Count 6.8 K/mm3 (4.4-11.0)
[2019-04-02 11:18] LABS: POSITIVE MORPHOLOGY YES
[2019-04-02 11:32] LABS: Ferritin 7 ng/mL (26-388)
[2019-04-02 11:34] LABS: Anisocytosis 1+; Platelet Estimate SLT DEC (ADEQ); Red Cell Morphology N CHROM NORMAL (NORM C&C)
[2019-04-19 12:35] LABS: Absolute Lymphocyte Count 1.33 X10^3/uL (0.83-4.51); Absolute Neutrophil Count 3.9 X10^3/uL (2.0-7.7); Basophil% 1.6 % (0-1); Eosinophil# 0.24 X10^3/uL; Eosinophils% 3.9 % (0-5); Hematocrit 42.3 % (40-54); Hemoglobin 11.6 g/dL (13.0-16.5); Lymphocyte # 1.33 X10^3/ul (4.0); Lymphocyte % 21.4 % (19-41); Mean Corp Hgb Conc 27.4 g/dL (32-36); Mean Corpuscular Hgb 21.9 pg (27.0-32.0); Mean Corpuscular Volume 79.8 fL (80-94); Mean Platelet Vol. 11.3 fl (6.2-12.0); Monocyte# 0.62 X10^3/uL; NRBC Flagged by Analyzer 0 % (0-5); Neutrophil # 3.91 X10^3/uL (2.7-7.7); Neutrophil % 62.8 % (47-70); Platelet Count 312 K/mm3 (150-450); RBC Distribution Width CV 19.1 % (11.6-14.6); RBC Distribution Width SD 53.8 fl (35.1-43.9); White Blood Count 6.2 K/mm3 (4.4-11.0)
[2019-04-19 13:08] LABS: Ferritin 6 ng/mL (26-388)
== END 2019-04-28 16:00 | disposition home or self-care (01) ==
LOC: LAB 10:29
PROVIDERS: Family Provider Family Medicine; PCP Family Medicine; Referring Provider Internal Medicine Hematology & Oncology; Visit Provider Internal Medicine Hematology & Oncology
DX: D75.1 Secondary polycythemia (principal)
CPT/HCPCS: 36415; 82728; 85025

== ENCOUNTER 2019-05-17 10:34 | Outpatient (RCR) | payer OTHER, SELFPAY ==
[2019-03-16 08:48] VITALS: BMI 42.7
[2019-05-03 11:35] LABS: Absolute Lymphocyte Count 1.35 X10^3/uL (0.83-4.51); Absolute Neutrophil Count 4.3 X10^3/uL (2.0-7.7); Basophil# 0.12 X10^3/uL; Basophil% 1.8 % (0-1); Eosinophil# 0.21 X10^3/uL; Eosinophils% 3.2 % (0-5); Lymphocyte # 1.35 X10^3/ul (4.0); Lymphocyte % 20.7 % (19-41); Mean Corp Hgb Conc 26.8 g/dL (32-36); Mean Corpuscular Hgb 21.3 pg (27.0-32.0); Mean Corpuscular Volume 79.5 fL (80-94); Mean Platelet Vol. 9.8 fl (6.2-12.0); Monocyte# 0.54 X10^3/uL; Monocyte% 8.3 % (0-10); NRBC Flagged by Analyzer 0 % (0-5); Neutrophil # 4.27 X10^3/uL (2.7-7.7); Neutrophil % 65.7 % (47-70); Platelet Count 112 K/mm3 (150-450); RBC Distribution Width CV 18.9 % (11.6-14.6); RBC Distribution Width SD 51.9 fl (35.1-43.9); Red Blood Count 5.16 M/mm3 (4.6-6.2); White Blood Count 6.5 K/mm3 (4.4-11.0)
[2019-05-03 11:51] LABS: Ferritin 7 ng/mL (26-388)
[2019-05-17 11:16] LABS: Absolute Lymphocyte Count 1.33 X10^3/uL (0.83-4.51); Absolute Neutrophil Count 3.8 X10^3/uL (2.0-7.7); Basophil# 0.11 X10^3/uL; Basophil% 1.8 % (0-1); Eosinophil# 0.35 X10^3/uL; Eosinophils% 5.6 % (0-5); Hematocrit 42.7 % (40-54); Hemoglobin 11.5 g/dL (13.0-16.5); Lymphocyte # 1.33 X10^3/ul (4.0); Lymphocyte % 21.5 % (19-41); Mean Corp Hgb Conc 26.9 g/dL (32-36); Mean Corpuscular Hgb 21.9 pg (27.0-32.0); Mean Corpuscular Volume 81.3 fL (80-94); Mean Platelet Vol. 10.5 fl (6.2-12.0); Monocyte# 0.58 X10^3/uL; Monocyte% 9.4 % (0-10); NRBC Flagged by Analyzer 0 % (0-5); Neutrophil % 61.2 % (47-70); Platelet Count 269 K/mm3 (150-450); RBC Distribution Width CV 19.3 % (11.6-14.6); RBC Distribution Width SD 55.2 fl (35.1-43.9); Red Blood Count 5.25 M/mm3 (4.6-6.2); White Blood Count 6.2 K/mm3 (4.4-11.0)
[2019-05-17 11:51] LABS: Ferritin 7 ng/mL (26-388)
== END 2019-05-17 12:00 | disposition home or self-care (01) ==
LOC: LAB 10:34
PROVIDERS: Family Provider Family Medicine; PCP Family Medicine; Referring Provider Internal Medicine Hematology & Oncology; Visit Provider Internal Medicine Hematology & Oncology
DX: D75.1 Secondary polycythemia (principal)
CPT/HCPCS: 36415; 82728; 85025

== ENCOUNTER 2019-05-25 07:25 | Day surgery (SDC) | payer OTHER, SELFPAY ==
[2019-05-10 08:37] VITALS: BMI 42.7
--- NOTE | 2019-05-10 09:42 | HP_ITS ---
Intake Vital Signs 05/10/19 Body Mass Index (BMI) 42.7 05/10/19 Height 5 ft 9 in 05/10/19 Weight: 282 lb 05/10/19 Body Mass Index (BMI) 41.6 05/10/19 Blood Pressure 143/71 H 05/10/19 Blood Pressure Location Rt brachial 05/10/19 Respiratory Rate 18 Intake Visit Reasons: Diarrhea, needs c-scope Chief Complaint: SOB, pain in back Turn Operator Required: No Is patient in pain?: No Allergies theophylline Allergy (Verified 05/10/19 08:36) Unknown Medications Aspirin [Aspirin, Baby] 81 mg PO DAILY@0800 03/17/16 [History Confirmed 05/10/19] Tamsulosin HCl [Flomax] 0.4 mg PO DAILY 03/17/16 [History Confirmed 05/10/19] Levothyroxine Sodium [Synthroid] 225 mcg PO DAILY 03/27/18 [History Confirmed 05/10/19] Testosterone [Androgel] 30 mg TD DAILY 03/27/18 [History Confirmed 05/10/19] Metformin HCl 1,000 mg PO BID #0 06/23/18 [Rx Confirmed 05/10/19] budesonide-formoterol HFA 160 mcg-4.5 mcg/actuation aerosol inhaler 2 puff INHALATION Q12H #10.2 g 06/25/18 [Rx Confirmed 05/10/19] metoprolol succinate ER 25 mg tablet,extended release 24 hr 25 mg PO DAILY #90 tab 09/23/18 [Rx Confirmed 05/10/19] valsartan 80 mg-hydrochlorothiazide 12.5 mg tablet 1 tab PO DAILY #90 tab 09/23/18 [Rx Confirmed 05/10/19] Apixaban [Eliquis] 5 mg PO BID 10/04/18 [History Confirmed 05/10/19] hydroxyurea 500 mg capsule 500 mg PO DAILY cap 12/17/18 [History Confirmed 05/10/19] Diazepam [Valium] 5 mg PO Q8 PRN #10 tab 01/03/19 [Rx Confirmed 05/10/19] furosemide 40 mg tablet 40 mg PO DAILY PRN PRN #30 tab 01/26/19 [Rx Confirmed 05/10/19] ropinirole 1 mg tablet 1 mg PO QHS #60 tab 02/11/19 [Rx Confirmed 05/10/19] PFSH Medical History Pulmonary embolism (Acute 06/21/18) Atherosclerotic heart disease of [place] coronary artery without angina pectoris (Chronic) Palpitations (Chronic) History of renal cell cancer (Chronic) Benign prostatic hypertrophy (Chronic) Type II diabetes mellitus (Chronic) Hyperlipidemia (Chronic) Obesity (Chronic) COPD (chronic obstructive pulmonary disease) (Chronic) Obstructive sleep apnea (Chronic) Hypothyroidism (Chronic) Hypertension (Chronic) Acute tear medial meniscus (Acute) Dyspnea (Acute) Instability of medial collateral ligament of knee (Acute) 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) Nephrolithiasis (Acute) Right elbow pain (Acute) Right knee pain (Acute) Rupture of right biceps tendon (Acute) Secondary polycythemia (Acute) Trochanteric bursitis, left hip (Acute) Asthma (Chronic) Depression (Chronic) Osteoarthritis, knee (Chronic) Sciatica (Chronic) Other alf (current) 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 (Resolved) Precordial chest pain (Resolved) Shortness of breath (Resolved) Surgical History History of coronary artery stent placement (Resolved 05/24/11) Status post right partial nephrectomy (Chronic) H/O lithotripsy (Resolved) History of left heart catheterization (Resolved 06/19/18) History of tonsillectomy (Resolved) L eye surgery (Resolved) partial nephrectomy for renal cell cancer (Resolved) Family History Mother CAD (coronary artery disease) Social History (Updated 05/10/19 @ 09:42 by Jake Fajardo MD) Smoking Status: Never smoker how long ago did patient quit smokin, 1.5/d second hand exposure: Yes alcohol intake: never substance use type: does not use HPI HPI HPI: DALE CAMPBELL, is a 64 M who presents to the office today for HPI HPI Surgical H&P: Yes HPI: DALE CAMPBELL, is a 64 M who presents to the office today for colonoscopy. Patient reports that he has been having diarrhea for 4 months. He had enteric studies which were all negative. He does not describe any abdominal pain. He does not have any blood in his stool. He has no family history of inflammatory bowel disease. No nausea or vomiting. He says he is having bowel movements about 12 times a day. ROS General General: Yes weight change and fatigue Musc Musculoskeletal: Yes back problems and arthritis Cardio Cardiovascular: Yes heart disease, high blood pressure and heart stent; no murmur, pacemaker, atrial fibrillation, heart attack, palpitations, shortness of breat with exertion or chest pain Psych Psychiatric: Yes anxiety; no depression Resp Respiratory: Yes shortness of breath, Yes sleep apnea, No cough, Yes COPD, Yes asthma, No emphysema, No wheezing Gastro Gastrointestinal: No abdominal pain, No nausea or vomiting, Yes diarrhea, No constipation, No blood in stool, No acid reflux, No hemorrhoids, No ulcers, No gallbladder problem, No black,tarry stools Gilberto Hematologic: Yes blood thinners Exam Const General: cooperative Orientation: alert, oriented x3 Resp Effort & Inspection: normal respiratory effort, audible wheezes, labored Auscultation: clear to auscultation bilaterally Cardio Rate: regular rate Rhythm: regular rhythm Heart Sounds: no murmurs GI Inspection: non-distended Palpation: soft, nontender Assessment & Plan Problems 1. Diarrhea, unspecified type R19.7 Plan The patient is having long-term diarrhea which is not resolving. Enteric studies have been negative. Needs colonoscopy for biopsies for microscopic colitis. I explained endoscopy in detail to the patient. I explained the risks including but not limited to stroke or heart attack with anesthesia, perforation of the GI tract, bleeding, infection. I explained that any of these could necessitate further emergency surgery. The patient understands and all questions were answered sufficiently. The patient wishes to proceed with procedure. Patient is on Eliquis for past PE. I will ask for permission to take him off of his Eliquis for 2 days prior to colonoscopy. Jake Fajardo MD Pager: [facility] [address] [place] [address], [address] [place] [address] Office: Orders Orders: Colonoscopy Today R19.7 Coding Level of Care Code Off vis,new,level 3 Diagnoses Diarrhea, unspecified type R19.7 ??Diarrhea type: unspecified type 05/10/19 0942 <Electronically signed by Jake cabrera MD> Date _ Jake MICHELLE I have re-examined the patient. There are no clinical changes since date of exam.
[2019-05-25 07:51] VITALS: BP 118/62; PULSE 83; RESP 18; TEMP 36.4; O2SAT 97; BMI 42.1
[2019-05-25] MEDS: Lactated Ringers 1,000 ML 100 ML IV (08:07)
[2019-05-25 08:16] LABS: Bedside Glucose 150 mg/dL (70-110)
--- NOTE | 2019-05-25 08:30 | COLBX_PTH ---
PATIENT: DALE CAMPBELL LOC: EN U#:[id number] AGE/SX: 64/M ROOM: RE05/25/[address]: Dr. Jake Fajardo MD : 1955 BED: DIS: 05/25/2019 SPEC #: [id number] RECD: 05/25/19 13:20 STATUS: NATALIE BRIDGET #: [id number] CYRUS: 05/25/19 08:[address]: Jake Fajardo DEPT: SURGICAL PATHOLOGY RECD BY: Juaquin Laird ENTERED: 05/25/19 14:23 SP TYPE: COLON BX DEV DR: Dr. Sebastien Stahl MD Tissues: COLON BIOPSY Procedures: Surgery Specimen Level IV HEADER OPERATION: Colonoscopy (MAC) PRE-OP DIAGNOSIS: Diarrhea TISSUE SUBMITTED: Random colon biopsies MICROSCOPIC DIAGNOSIS Colon, random biopsy: Fragments of colonic mucosa with focal changes consistent with collagenous colitis. SJ:stacy 05/26/19 COMMENT Trichrome stain with matched control was used in the evaluation of this specimen and shows focal thickening of subepithelial collagen band. Correlation with clinical, endoscopic findings and appropriate follow up are necessary. MICROSCOPIC DESCRIPTION Slides are reviewed. GROSS DESCRIPTION Received is one container labeled with the patient name and designated random colon biopsy. The specimen consists of multiple irregular fragments of light [place]ingo soft tissue that in aggregate measure 2 x 1 x 0.1 cm. The specimen is totally submitted in one cassette. /SJ:sp 05/25/19 TC: 5 CPT: 28380, 06521
--- NOTE | 2019-05-25 08:46 | OP.ENDO_ITS ---
05/25/2019 Sebastien Stahl Re : Colonoscopy procedure for Eddie Sarabia Dear Maribeth This procedure was performed on Saturday, May 25, 2019. My impressions and recommendations are as follows: Impressions : - The entire examined colon is normal on direct and retroflexion views. - Biopsies were taken with a cold forceps from the entire colon for evaluation of microscopic colitis. Recommendations : - Discharge patient to home. - Resume previous diet. - Continue present medications. - Resume Eliquis (apixaban) at prior dose tomorrow. - Await pathology results. - Repeat colonoscopy in 10 years for screening purposes. My findings are described in the full procedure note, which is enclosed. If I can be of further assistance, please feel free to contact me at Doctor phone number(s): , Work: . Sincerely, Jake Fajardo MD 05/25/2019 8:45:55 AM This report has been signed electronically.
[2019-05-25 08:49] VITALS: BP 107/67; BP 118/62; PULSE 90; RESP 16; TEMP 36.1; O2SAT 94
[2019-05-25 08:55] VITALS: BP 107/67; BP 118/62; PULSE 86; RESP 16; O2SAT 94
[2019-05-25 09:00] VITALS: BP 105/71; BP 118/62; PULSE 82; RESP 16; O2SAT 95
[2019-05-25 09:04] VITALS: BP 107/67; BP 118/62; PULSE 63; RESP 16; TEMP 37.6; O2SAT 94
[2019-05-25 09:21] VITALS: BP 118/62
== END 2019-05-25 09:29 | disposition home or self-care (01) ==
LOC: EN 07:26 → AC 07:27
PROVIDERS: Family Provider Family Medicine; PCP Family Medicine; Referring Provider Family Medicine; Visit Provider Surgery
PROC: 0DJD8ZZ Inspection of Lower Intestinal Tract, Via Natural or Artificial Opening Endoscopic (ICD-10-PCS; CPT 45378; principal; 2019-05-25 08:25)
DX: R19.7 Diarrhea, unspecified (principal); I25.10 Atherosclerotic heart disease of native coronary artery without angina pectoris; N40.0 Benign prostatic hyperplasia without lower urinary tract symptoms; E11.9 Type 2 diabetes mellitus without complications; E78.5 Hyperlipidemia, unspecified; E66.9 Obesity, unspecified; J44.9 Chronic obstructive pulmonary disease, unspecified; G47.33 Obstructive sleep apnea (adult) (pediatric); E03.9 Hypothyroidism, unspecified; F32.9 Major depressive disorder, single episode, unspecified; M19.90 Unspecified osteoarthritis, unspecified site; I11.0 Hypertensive heart disease with heart failure; I50.9 Heart failure, unspecified; D75.1 Secondary polycythemia; Z68.41 Body mass index [BMI] 40.0-44.9, adult; Z87.891 Personal history of nicotine dependence; Z86.718 Personal history of other venous thrombosis and embolism; Z86.711 Personal history of pulmonary embolism; Z85.528 Personal history of 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neoplasm of kidney; Z95.5 Presence of coronary angioplasty implant and graft; Z79.82 Long term (current) use of aspirin; Z79.84 Long term (current) use of oral hypoglycemic drugs; Z79.02 Long term (current) use of antithrombotics/antiplatelets; Z79.899 Other long term (current) 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
CPT/HCPCS: 45380; 82962; 88305; J7120; J2405

== ENCOUNTER → 2019-06-08 | Outpatient (CLI) | payer OTHER, SELFPAY ==
[2019-05-25 07:51] VITALS: BMI 42.1
--- NOTE | 2019-06-08 12:37 | RAD_ITS ---
STUDY: X-RAY CHEST REASON FOR EXAM: Male, 64 years old. One-week history of cough. TECHNIQUE: PA and lateral views of the chest. COMPARISON: Comparison is made with prior examination dated January 05, 2019. FINDINGS: Stable mild elevation of the right hemidiaphragm. Stable mild increased markings at the right lung base suggestive scarring. There is no demonstrated pleural abnormality. Normal size heart. Normal mediastinum and selina. Normal visualized pulmonary arteries. Normal visualized aortic arch and descending thoracic aorta. There are diffuse degenerative changes of the visualized thoracic spine. Normal visualized ribs, clavicles, and shoulders. There is no demonstrated abnormality of the visualized soft tissue structures of the upper abdomen. RAD/Chest PA and Lateral IMPRESSION: No acute abnormality is seen. Electronically Signed: Anshul Arboleda, at 13:29 EDT , Service support ,
== END | disposition home or self-care (01) ==
LOC: HPRAD 12:34
PROVIDERS: Family Provider Family Medicine; PCP Family Medicine; Referring Provider Family Medicine; Visit Provider Family Medicine
DX: R05 Cough (principal)
CPT/HCPCS: 71046

== ENCOUNTER 2019-06-28 11:56 | Outpatient (RCR) | payer OTHER, SELFPAY ==
[2019-06-15 09:15] LABS: Absolute Lymphocyte Count 1.67 X10^3/uL (0.83-4.51); Absolute Neutrophil Count 5.3 X10^3/uL (2.0-7.7); Basophil# 0.11 X10^3/uL; Basophil% 1.4 % (0-1); Eosinophil# 0.21 X10^3/uL; Eosinophils% 2.6 % (0-5); Hematocrit 44.8 % (40-54); Lymphocyte # 1.67 X10^3/ul (4.0); Lymphocyte % 20.9 % (19-41); Mean Corp Hgb Conc 26.8 g/dL (32-36); Mean Corpuscular Hgb 21.5 pg (27.0-32.0); Mean Corpuscular Volume 80.3 fL (80-94); Mean Platelet Vol. 9.7 fl (6.2-12.0); Monocyte# 0.64 X10^3/uL; NRBC Flagged by Analyzer 0 % (0-5); Neutrophil # 5.32 X10^3/uL (2.7-7.7); Neutrophil % 66.6 % (47-70); Platelet Count 224 K/mm3 (150-450); RBC Distribution Width CV 18.6 % (11.6-14.6); RBC Distribution Width SD 51.8 fl (35.1-43.9); Red Blood Count 5.58 M/mm3 (4.6-6.2)
[2019-06-15 09:53] LABS: Anion Gap 5 (5-15); BUN 20 mg/dL (7-18); BUN/Creat Ratio 16.9 RATIO (10-20); Chloride 102 mmol/L (98-107); Creatinine, Serum 1.18 mg/dL (0.70-1.30); EST Glomerular Filtration Rate 66 mL/min (>60); Est Glom Filt Rate - Afr Amer 79 mL/min (>60); Ferritin 6 ng/mL (26-388); Glucose 163 mg/dL (74-106); Potassium 4.1 mmol/L (3.5-5.1); Sodium Level 137 mmol/L (136-145); T4 Free Direct 1.14 ng/dL (0.76-1.46)
[2019-06-15 10:14] LABS: Vitamin D,25 Hydroxy 27.7 ng/mL (29.95-100.01)
[2019-06-28 12:33] LABS: Absolute Neutrophil Count 6.5 X10^3/uL (2.0-7.7); Basophil# 0.13 X10^3/uL; Basophil% 1.4 % (0-1); Eosinophil# 0.28 X10^3/uL; Hematocrit 47.8 % (40-54); Hemoglobin 12.8 g/dL (13.0-16.5); Lymphocyte % 17.1 % (19-41); Mean Corp Hgb Conc 26.8 g/dL (32-36); Mean Corpuscular Hgb 21.4 pg (27.0-32.0); Mean Corpuscular Volume 79.9 fL (80-94); Mean Platelet Vol. 10.5 fl (6.2-12.0); Monocyte# 0.79 X10^3/uL; Monocyte% 8.4 % (0-10); NRBC Flagged by Analyzer 0 % (0-5); Neutrophil # 6.53 X10^3/uL (2.7-7.7); Neutrophil % 69.6 % (47-70); Platelet Count 129 K/mm3 (150-450); RBC Distribution Width CV 19.4 % (11.6-14.6); RBC Distribution Width SD 51.9 fl (35.1-43.9); Red Blood Count 5.98 M/mm3 (4.6-6.2); White Blood Count 9.4 K/mm3 (4.4-11.0)
[2019-06-28 13:15] LABS: Ferritin 6 ng/mL (26-388)
== END 2019-06-28 14:04 | disposition home or self-care (01) ==
LOC: LAB 11:56
PROVIDERS: Family Provider Family Medicine; PCP Family Medicine; Referring Provider Internal Medicine Hematology & Oncology; Visit Provider Internal Medicine Hematology & Oncology
DX: D75.1 Secondary polycythemia (principal)
CPT/HCPCS: 36415; 80048; 82306; 82728; 84439; 84443; 85025

== ENCOUNTER 2019-07-26 10:40 | Outpatient (RCR) | payer OTHER, SELFPAY ==
[2019-07-12 11:27] LABS: Absolute Lymphocyte Count 1.48 X10^3/uL (0.83-4.51); Absolute Neutrophil Count 5.6 X10^3/uL (2.0-7.7); Basophil# 0.12 X10^3/uL; Basophil% 1.5 % (0-1); Eosinophil# 0.21 X10^3/uL; Eosinophils% 2.6 % (0-5); Hemoglobin 11.9 g/dL (13.0-16.5); Lymphocyte # 1.48 X10^3/ul (4.0); Lymphocyte % 18.3 % (19-41); Mean Corp Hgb Conc 26.4 g/dL (32-36); Mean Corpuscular Volume 79.4 fL (80-94); Mean Platelet Vol. 10.2 fl (6.2-12.0); Monocyte# 0.61 X10^3/uL; Monocyte% 7.5 % (0-10); NRBC Flagged by Analyzer 0.2 % (0-5); Neutrophil # 5.62 X10^3/uL (2.7-7.7); Neutrophil % 69.6 % (47-70); Platelet Count 292 K/mm3 (150-450); RBC Distribution Width CV 18.7 % (11.6-14.6); RBC Distribution Width SD 51.8 fl (35.1-43.9); Red Blood Count 5.67 M/mm3 (4.6-6.2); White Blood Count 8.1 K/mm3 (4.4-11.0)
[2019-07-12 11:40] LABS: Ferritin 6 ng/mL (26-388)
[2019-07-26 12:25] LABS: Absolute Lymphocyte Count 1.63 X10^3/uL (0.83-4.51); Absolute Neutrophil Count 3.8 X10^3/uL (2.0-7.7); Basophil# 0.15 X10^3/uL; Basophil% 2.3 % (0-1); Eosinophil# 0.26 X10^3/uL; Hematocrit 44.6 % (40-54); Hemoglobin 12.1 g/dL (13.0-16.5); Lymphocyte # 1.63 X10^3/ul (4.0); Lymphocyte % 25.1 % (19-41); Mean Corp Hgb Conc 27.1 g/dL (32-36); Mean Corpuscular Hgb 21.4 pg (27.0-32.0); Mean Corpuscular Volume 78.9 fL (80-94); Mean Platelet Vol. 10.6 fl (6.2-12.0); Monocyte# 0.57 X10^3/uL; Monocyte% 8.8 % (0-10); NRBC Flagged by Analyzer 0.3 % (0-5); Neutrophil # 3.84 X10^3/uL (2.7-7.7); Neutrophil % 59.2 % (47-70); Platelet Count 123 K/mm3 (150-450); RBC Distribution Width CV 19.4 % (11.6-14.6); RBC Distribution Width SD 52.1 fl (35.1-43.9); Red Blood Count 5.65 M/mm3 (4.6-6.2); White Blood Count 6.5 K/mm3 (4.4-11.0)
[2019-07-26 12:57] LABS: Ferritin 7 ng/mL (26-388)
== END 2019-07-26 18:00 | disposition home or self-care (01) ==
LOC: LAB 10:40
PROVIDERS: Family Provider Family Medicine; PCP Family Medicine; Referring Provider Internal Medicine Hematology & Oncology; Visit Provider Internal Medicine Hematology & Oncology
DX: D75.1 Secondary polycythemia (principal)
CPT/HCPCS: 36415; 82728; 85025

== ENCOUNTER 2019-08-23 10:41 | Outpatient (RCR) | payer OTHER, SELFPAY ==
[2019-07-13 13:54] VITALS: BMI 42.5
[2019-08-10 10:34] VITALS: BMI 42.5
[2019-08-23 11:27] LABS: Absolute Lymphocyte Count 1.23 X10^3/uL (0.83-4.51); Absolute Neutrophil Count 4.1 X10^3/uL (2.0-7.7); Basophil# 0.11 X10^3/uL; Basophil% 1.7 % (0-1); Eosinophil# 0.28 X10^3/uL; Eosinophils% 4.4 % (0-5); Hematocrit 43.1 % (40-54); Hemoglobin 11.6 g/dL (13.0-16.5); Lymphocyte # 1.23 X10^3/ul (4.0); Lymphocyte % 19.5 % (19-41); Mean Corp Hgb Conc 26.9 g/dL (32-36); Mean Corpuscular Hgb 21.6 pg (27.0-32.0); Mean Corpuscular Volume 80.3 fL (80-94); Mean Platelet Vol. 11.2 fl (6.2-12.0); Monocyte# 0.52 X10^3/uL; Monocyte% 8.2 % (0-10); NRBC Flagged by Analyzer 0.3 % (0-5); Neutrophil # 4.12 X10^3/uL (2.7-7.7); Neutrophil % 65.4 % (47-70); POSITIVE MORPHOLOGY YES; Platelet Count 170 K/mm3 (150-450); RBC Distribution Width CV 20.3 % (11.6-14.6); RBC Distribution Width SD 54.4 fl (35.1-43.9); Red Blood Count 5.37 M/mm3 (4.6-6.2); White Blood Count 6.3 K/mm3 (4.4-11.0)
[2019-08-23 11:31] LABS: Differential Indicated SCAN CRITERIA MET
[2019-08-23 11:47] LABS: Ferritin 8 ng/mL (26-388)
[2019-08-23 11:53] LABS: Anisocytosis 1+; Hypochromasia 1+; Platelet Estimate ADEQUATE (ADEQ); Polychromasia 1+
== END 2019-08-23 18:00 | disposition home or self-care (01) ==
LOC: LAB 10:41
PROVIDERS: Family Provider Family Medicine; PCP Family Medicine; Referring Provider Internal Medicine Hematology & Oncology; Visit Provider Internal Medicine Hematology & Oncology
DX: D75.1 Secondary polycythemia (principal)
CPT/HCPCS: 36415; 82728; 85025

== ENCOUNTER 2019-09-06 11:10 | Outpatient (RCR) | payer OTHER, SELFPAY ==
[2019-08-10 10:34] VITALS: BMI 42.5
[2019-09-06 11:20] LABS: Absolute Lymphocyte Count 1.27 X10^3/uL (0.83-4.51); Absolute Neutrophil Count 4.5 X10^3/uL (2.0-7.7); Basophil# 0.13 X10^3/uL; Basophil% 1.8 % (0-1); Eosinophil# 0.31 X10^3/uL; Eosinophils% 4.3 % (0-5); Hematocrit 41.1 % (40-54); Hemoglobin 11.3 g/dL (13.0-16.5); Lymphocyte # 1.27 X10^3/ul (4.0); Lymphocyte % 17.7 % (19-41); Mean Corp Hgb Conc 27.5 g/dL (32-36); Mean Corpuscular Hgb 21.6 pg (27.0-32.0); Mean Corpuscular Volume 78.7 fL (80-94); Mean Platelet Vol. 10.6 fl (6.2-12.0); Monocyte# 0.91 X10^3/uL; Monocyte% 12.7 % (0-10); NRBC Flagged by Analyzer 0 % (0-5); Neutrophil # 4.52 X10^3/uL (2.7-7.7); Neutrophil % 63.2 % (47-70); Platelet Count 232 K/mm3 (150-450); RBC Distribution Width CV 19.2 % (11.6-14.6); RBC Distribution Width SD 52.6 fl (35.1-43.9); Red Blood Count 5.22 M/mm3 (4.6-6.2); White Blood Count 7.2 K/mm3 (4.4-11.0)
[2019-09-06 11:49] LABS: Ferritin 9 ng/mL (26-388)
== END 2019-09-06 18:00 | disposition home or self-care (01) ==
LOC: LAB 11:10
PROVIDERS: Family Provider Family Medicine; PCP Family Medicine; Referring Provider Internal Medicine Hematology & Oncology; Visit Provider Internal Medicine Hematology & Oncology
DX: D75.1 Secondary polycythemia (principal)
CPT/HCPCS: 82728; 85025

== ENCOUNTER 2019-09-09 08:06 | Outpatient (RCR) | payer OTHER, SELFPAY ==
[2019-08-10 10:34] VITALS: BMI 42.5
== END 2019-09-09 23:59 | disposition home or self-care (01) ==
LOC: NS 08:06
PROVIDERS: Family Provider Family Medicine; PCP Family Medicine; Visit Provider Family Medicine
DX: Z71.3 Dietary counseling and surveillance (principal); E66.9 Obesity, unspecified
CPT/HCPCS: 97802

== ENCOUNTER 2019-10-19 09:50 | Outpatient (RCR) | payer OTHER, SELFPAY ==
[2019-09-14 16:02] VITALS: BMI 42.0
[2019-10-04 15:31] LABS: Absolute Lymphocyte Count 1.79 X10^3/uL (0.83-4.51); Absolute Neutrophil Count 4.7 X10^3/uL (2.0-7.7); Basophil# 0.09 X10^3/uL; Basophil% 1.2 % (0-1); Eosinophil# 0.33 X10^3/uL; Eosinophils% 4.3 % (0-5); Hemoglobin 12.4 g/dL (13.0-16.5); Lymphocyte # 1.79 X10^3/ul (4.0); Lymphocyte % 23.4 % (19-41); Mean Corpuscular Hgb 21.5 pg (27.0-32.0); Mean Corpuscular Volume 79.9 fL (80-94); Mean Platelet Vol. 10.8 fl (6.2-12.0); Monocyte# 0.72 X10^3/uL; Monocyte% 9.4 % (0-10); NRBC Flagged by Analyzer 0 % (0-5); Neutrophil % 61.3 % (47-70); Platelet Count 128 K/mm3 (150-450); RBC Distribution Width CV 19.8 % (11.6-14.6); RBC Distribution Width SD 53.4 fl (35.1-43.9); Red Blood Count 5.76 M/mm3 (4.6-6.2); White Blood Count 7.7 K/mm3 (4.4-11.0)
[2019-10-04 16:01] LABS: Ferritin 10 ng/mL (26-388)
[2019-10-19 10:58] LABS: Absolute Lymphocyte Count 1.72 X10^3/uL (0.83-4.51); Absolute Neutrophil Count 5.8 X10^3/uL (2.0-7.7); Basophil# 0.12 X10^3/uL; Basophil% 1.4 % (0-1); Eosinophil# 0.29 X10^3/uL; Eosinophils% 3.3 % (0-5); Hemoglobin 11.9 g/dL (13.0-16.5); Lymphocyte # 1.72 X10^3/ul (4.0); Lymphocyte % 19.8 % (19-41); Mean Corp Hgb Conc 25.9 g/dL (32-36); Mean Corpuscular Hgb 20.6 pg (27.0-32.0); Mean Corpuscular Volume 79.6 fL (80-94); Mean Platelet Vol. 10.5 fl (6.2-12.0); Monocyte# 0.69 X10^3/uL; Monocyte% 7.9 % (0-10); NRBC Flagged by Analyzer 0 % (0-5); Neutrophil # 5.84 X10^3/uL (2.7-7.7); Neutrophil % 67.1 % (47-70); Platelet Count 364 K/mm3 (150-450); RBC Distribution Width CV 19.5 % (11.6-14.6); RBC Distribution Width SD 53.3 fl (35.1-43.9); Red Blood Count 5.78 M/mm3 (4.6-6.2); White Blood Count 8.7 K/mm3 (4.4-11.0)
[2019-10-19 11:31] LABS: AST(SGOT) 18 U/L (15-37); Alanine Aminotransfer ALT/SGPT 38 U/L (16-61); Albumin, Serum 3.8 g/dL (3.2-5.0); Alkaline Phosphatase 71 U/L (45-117); Bilirubin, Direct 0.15 mg/dL (0.00-0.30); Cholesterol 137 mg/dL (200); Ferritin 7 ng/mL (26-388); Globulin 3.2 g/dL (2.2-4.2); High Density Lipoprotein 35 mg/dL; Triglycerides 317 mg/dL; Very Low Density Lipoprotein 63 mg/dL (5-40)
== END 2019-10-19 18:00 | disposition home or self-care (01) ==
LOC: LAB 09:50
PROVIDERS: Physician Assistant Medical; Family Provider Family Medicine; PCP Family Medicine; Referring Provider Internal Medicine Hematology & Oncology; Visit Provider Internal Medicine Hematology & Oncology
DX: D75.1 Secondary polycythemia (principal)
CPT/HCPCS: 36415; 80061; 80076; 82728; 85025

== ENCOUNTER 2019-11-15 11:45 | Outpatient (RCR) | payer OTHER, SELFPAY ==
[2019-10-25 16:13] VITALS: BMI 42.7
[2019-11-01 11:14] LABS: Absolute Lymphocyte Count 1.28 X10^3/uL (0.83-4.51); Absolute Neutrophil Count 6.2 X10^3/uL (2.0-7.7); Basophil# 0.11 X10^3/uL; Basophil% 1.3 % (0-1); Eosinophil# 0.31 X10^3/uL; Eosinophils% 3.5 % (0-5); Hematocrit 42.1 % (40-54); Hemoglobin 11.3 g/dL (13.0-16.5); Lymphocyte # 1.28 X10^3/ul (4.0); Lymphocyte % 14.6 % (19-41); Mean Corp Hgb Conc 26.8 g/dL (32-36); Mean Corpuscular Hgb 21.9 pg (27.0-32.0); Mean Corpuscular Volume 81.7 fL (80-94); Mean Platelet Vol. 11.4 fl (6.2-12.0); Monocyte# 0.78 X10^3/uL; Monocyte% 8.9 % (0-10); NRBC Flagged by Analyzer 0.5 % (0-5); Neutrophil # 6.18 X10^3/uL (2.7-7.7); Neutrophil % 70.6 % (47-70); POSITIVE MORPHOLOGY YES; Platelet Count 125 K/mm3 (150-450); RBC Distribution Width SD 57.3 fl (35.1-43.9); Red Blood Count 5.15 M/mm3 (4.6-6.2); White Blood Count 8.8 K/mm3 (4.4-11.0)
[2019-11-01 11:15] LABS: Differential Indicated SCAN CRITERIA MET
[2019-11-01 11:37] LABS: Ferritin 12 ng/mL (26-388)
[2019-11-01 11:41] LABS: Anisocytosis 1+
[2019-11-15 12:16] LABS: Absolute Neutrophil Count 4.1 X10^3/uL (2.0-7.7); Basophil# 0.14 X10^3/uL; Eosinophil# 0.17 X10^3/uL; Eosinophils% 2.5 % (0-5); Hematocrit 41.4 % (40-54); Lymphocyte % 26.1 % (19-41); Mean Corp Hgb Conc 26.6 g/dL (32-36); Mean Corpuscular Hgb 21.3 pg (27.0-32.0); Mean Corpuscular Volume 80.1 fL (80-94); Mean Platelet Vol. 10.5 fl (6.2-12.0); Monocyte# 0.67 X10^3/uL; Monocyte% 9.7 % (0-10); NRBC Flagged by Analyzer 0.3 % (0-5); Neutrophil # 4.09 X10^3/uL (2.7-7.7); Neutrophil % 59.3 % (47-70); Platelet Count 345 K/mm3 (150-450); RBC Distribution Width CV 19.5 % (11.6-14.6); RBC Distribution Width SD 53.9 fl (35.1-43.9); Red Blood Count 5.17 M/mm3 (4.6-6.2); White Blood Count 6.9 K/mm3 (4.4-11.0)
[2019-11-15 13:38] LABS: Ferritin 6 ng/mL (26-388)
== END 2019-11-15 18:00 | disposition home or self-care (01) ==
LOC: LAB 11:45
PROVIDERS: Family Provider Family Medicine; PCP Family Medicine; Referring Provider Internal Medicine Hematology & Oncology; Visit Provider Internal Medicine Hematology & Oncology
DX: R71.8 Other abnormality of red blood cells (principal); D75.1 Secondary polycythemia
CPT/HCPCS: 36415; 82728; 85025

== ENCOUNTER → 2019-11-29 11:45 | Outpatient (CLI) | payer OTHER, SELFPAY ==
[2019-10-25 16:13] VITALS: BMI 42.7
[2019-11-29 12:11] LABS: Absolute Lymphocyte Count 1.52 X10^3/uL (0.83-4.51); Absolute Neutrophil Count 4.5 X10^3/uL (2.0-7.7); Basophil# 0.14 X10^3/uL; Basophil% 1.9 % (0-1); Eosinophil# 0.33 X10^3/uL; Eosinophils% 4.6 % (0-5); Hematocrit 39.4 % (40-54); Hemoglobin 10.5 g/dL (13.0-16.5); Lymphocyte # 1.52 X10^3/ul (4.0); Mean Corp Hgb Conc 26.6 g/dL (32-36); Mean Corpuscular Hgb 21.3 pg (27.0-32.0); Mean Corpuscular Volume 80.1 fL (80-94); Mean Platelet Vol. 11.2 fl (6.2-12.0); Monocyte# 0.69 X10^3/uL; Monocyte% 9.5 % (0-10); NRBC Flagged by Analyzer 0.8 % (0-5); Neutrophil # 4.49 X10^3/uL (2.7-7.7); Neutrophil % 62.2 % (47-70); Platelet Count 163 K/mm3 (150-450); RBC Distribution Width CV 19.8 % (11.6-14.6); RBC Distribution Width SD 55.3 fl (35.1-43.9); Red Blood Count 4.92 M/mm3 (4.6-6.2); White Blood Count 7.2 K/mm3 (4.4-11.0)
[2019-11-29 12:45] LABS: Ferritin 8 ng/mL (26-388)
== END ==
PROVIDERS: PCP Family Medicine; Visit Provider Internal Medicine Hematology & Oncology
DX: D75.1 Secondary polycythemia (principal)
CPT/HCPCS: 36415; 82728; 85025

== ENCOUNTER 2019-12-27 09:08 | Outpatient (RCR) | payer OTHER, SELFPAY ==
[2019-10-25 16:13] VITALS: BMI 42.7
[2019-12-13 10:13] LABS: Absolute Lymphocyte Count 1.28 X10^3/uL (0.83-4.51); Absolute Neutrophil Count 5.5 X10^3/uL (2.0-7.7); Basophil% 1.2 % (0-1); Eosinophil# 0.23 X10^3/uL; Eosinophils% 2.8 % (0-5); Hematocrit 40.2 % (40-54); Hemoglobin 10.8 g/dL (13.0-16.5); Lymphocyte # 1.28 X10^3/ul (4.0); Lymphocyte % 15.8 % (19-41); Mean Corp Hgb Conc 26.9 g/dL (32-36); Mean Corpuscular Hgb 20.8 pg (27.0-32.0); Mean Corpuscular Volume 77.5 fL (80-94); Mean Platelet Vol. 10.2 fl (6.2-12.0); Monocyte# 0.91 X10^3/uL; Monocyte% 11.2 % (0-10); NRBC Flagged by Analyzer 0.2 % (0-5); Neutrophil # 5.54 X10^3/uL (2.7-7.7); Neutrophil % 68.5 % (47-70); Platelet Count 239 K/mm3 (150-450); RBC Distribution Width CV 19.1 % (11.6-14.6); RBC Distribution Width SD 51.4 fl (35.1-43.9); Red Blood Count 5.19 M/mm3 (4.6-6.2); White Blood Count 8.1 K/mm3 (4.4-11.0)
[2019-12-13 10:53] LABS: Ferritin 5 ng/mL (26-388)
[2019-12-27 10:30] LABS: Absolute Lymphocyte Count 1.82 X10^3/uL (0.83-4.51); Absolute Neutrophil Count 6.7 X10^3/uL (2.0-7.7); Basophil# 0.15 X10^3/uL; Basophil% 1.6 % (0-1); Differential Indicated SCAN CRITERIA MET; Eosinophils% 3.1 % (0-5); Hematocrit 41.9 % (40-54); Hemoglobin 11.2 g/dL (13.0-16.5); Lymphocyte # 1.82 X10^3/ul (4.0); Lymphocyte % 18.9 % (19-41); Mean Corp Hgb Conc 26.7 g/dL (32-36); Mean Corpuscular Hgb 21.1 pg (27.0-32.0); Mean Corpuscular Volume 78.9 fL (80-94); Mean Platelet Vol. 10.4 fl (6.2-12.0); Monocyte% 6.2 % (0-10); NRBC Flagged by Analyzer 0.2 % (0-5); Neutrophil # 6.69 X10^3/uL (2.7-7.7); Neutrophil % 69.7 % (47-70); POSITIVE MORPHOLOGY YES; Platelet Count 284 K/mm3 (150-450); RBC Distribution Width CV 21.1 % (11.6-14.6); Red Blood Count 5.31 M/mm3 (4.6-6.2); White Blood Count 9.6 K/mm3 (4.4-11.0)
[2019-12-27 11:02] LABS: Anisocytosis 1+; Ferritin 8 ng/mL (26-388)
== END 2019-12-27 18:00 | disposition home or self-care (01) ==
LOC: LAB 09:08
PROVIDERS: Family Provider Family Medicine; PCP Family Medicine; Referring Provider Internal Medicine Hematology & Oncology; Visit Provider Internal Medicine Hematology & Oncology
DX: R71.8 Other abnormality of red blood cells (principal)
CPT/HCPCS: 36415; 82728; 85025

== ENCOUNTER 2020-01-25 10:10 | Outpatient (RCR) | payer OTHER, SELFPAY ==
[2019-10-25 16:13] VITALS: BMI 42.7
[2020-01-10 08:59] LABS: Absolute Lymphocyte Count 1.14 X10^3/uL (0.83-4.51); Basophil% 1.4 % (0-1); Eosinophil# 0.25 X10^3/uL; Eosinophils% 3.4 % (0-5); Hemoglobin 11.5 g/dL (13.0-16.5); Lymphocyte # 1.14 X10^3/ul (4.0); Lymphocyte % 15.7 % (19-41); Mean Corp Hgb Conc 26.7 g/dL (32-36); Mean Corpuscular Hgb 20.9 pg (27.0-32.0); Mean Corpuscular Volume 78.3 fL (80-94); Mean Platelet Vol. 9.8 fl (6.2-12.0); Monocyte# 0.69 X10^3/uL; Monocyte% 9.5 % (0-10); NRBC Flagged by Analyzer 0 % (0-5); Neutrophil # 5.03 X10^3/uL (2.7-7.7); Neutrophil % 69.4 % (47-70); Platelet Count 177 K/mm3 (150-450); RBC Distribution Width CV 19.9 % (11.6-14.6); RBC Distribution Width SD 53.3 fl (35.1-43.9); Red Blood Count 5.49 M/mm3 (4.6-6.2); White Blood Count 7.3 K/mm3 (4.4-11.0)
[2020-01-10 09:31] LABS: Ferritin 8 ng/mL (26-388)
[2020-01-25 11:19] LABS: Absolute Lymphocyte Count 1.71 X10^3/uL (0.83-4.51); Absolute Neutrophil Count 4.5 X10^3/uL (2.0-7.7); Basophil# 0.13 X10^3/uL; Basophil% 1.8 % (0-1); Eosinophil# 0.26 X10^3/uL; Eosinophils% 3.6 % (0-5); Hematocrit 40.5 % (40-54); Hemoglobin 10.8 g/dL (13.0-16.5); Lymphocyte # 1.71 X10^3/ul (4.0); Mean Corp Hgb Conc 26.7 g/dL (32-36); Mean Corpuscular Hgb 21.1 pg (27.0-32.0); Mean Corpuscular Volume 78.9 fL (80-94); Mean Platelet Vol. 10.2 fl (6.2-12.0); Monocyte# 0.52 X10^3/uL; Monocyte% 7.3 % (0-10); NRBC Flagged by Analyzer 0 % (0-5); Neutrophil # 4.48 X10^3/uL (2.7-7.7); Neutrophil % 62.9 % (47-70); POSITIVE MORPHOLOGY YES; Platelet Count 299 K/mm3 (150-450); RBC Distribution Width CV 20.5 % (11.6-14.6); RBC Distribution Width SD 57.1 fl (35.1-43.9); Red Blood Count 5.13 M/mm3 (4.6-6.2); White Blood Count 7.1 K/mm3 (4.4-11.0)
[2020-01-25 11:29] LABS: Differential Indicated SCAN CRITERIA MET
[2020-01-25 11:49] LABS: Ferritin 6 ng/mL (26-388)
[2020-01-25 12:43] LABS: Anisocytosis 1+
== END 2020-01-27 18:00 | disposition home or self-care (01) ==
LOC: LAB 10:10
PROVIDERS: Family Provider Family Medicine; PCP Family Medicine; Referring Provider Internal Medicine Hematology & Oncology; Visit Provider Internal Medicine Hematology & Oncology
DX: D75.1 Secondary polycythemia (principal)
CPT/HCPCS: 36415; 82728; 85025

== ENCOUNTER 2020-02-07 12:51 | Outpatient (RCR) | payer OTHER, SELFPAY ==
[2019-10-25 16:13] VITALS: BMI 42.7
[2020-02-07 13:09] LABS: Absolute Lymphocyte Count 1.96 X10^3/uL (0.83-4.51); Absolute Neutrophil Count 4.1 X10^3/uL (2.0-7.7); Basophil# 0.13 X10^3/uL; Basophil% 1.8 % (0-1); Eosinophil# 0.23 X10^3/uL; Eosinophils% 3.2 % (0-5); Hematocrit 43.8 % (40-54); Hemoglobin 11.8 g/dL (13.0-16.5); Lymphocyte # 1.96 X10^3/ul (4.0); Lymphocyte % 27.2 % (19-41); Mean Corp Hgb Conc 26.9 g/dL (32-36); Mean Corpuscular Hgb 21.2 pg (27.0-32.0); Mean Corpuscular Volume 78.8 fL (80-94); Mean Platelet Vol. 9.7 fl (6.2-12.0); Monocyte# 0.76 X10^3/uL; Monocyte% 10.5 % (0-10); NRBC Flagged by Analyzer 0.3 % (0-5); Neutrophil % 56.9 % (47-70); POSITIVE MORPHOLOGY YES; Platelet Count 113 K/mm3 (150-450); RBC Distribution Width CV 20.4 % (11.6-14.6); RBC Distribution Width SD 54.4 fl (35.1-43.9); Red Blood Count 5.56 M/mm3 (4.6-6.2); White Blood Count 7.2 K/mm3 (4.4-11.0)
[2020-02-07 13:25] LABS: Ferritin 5 ng/mL (26-388)
[2020-02-07 13:30] LABS: Differential Indicated SCAN CRITERIA MET
[2020-02-07 13:47] LABS: Anisocytosis 2+
[2020-02-07 13:48] LABS: Platelet Estimate SLT DEC (ADEQ)
[2020-02-07 13:50] LABS: Polychromasia 1+
== END 2020-02-07 18:00 | disposition home or self-care (01) ==
LOC: LAB 12:51
PROVIDERS: Family Provider Family Medicine; PCP Family Medicine; Referring Provider Internal Medicine Hematology & Oncology; Visit Provider Internal Medicine Hematology & Oncology
DX: D75.1 Secondary polycythemia (principal)
CPT/HCPCS: 36415; 82728; 85025

== ENCOUNTER → 2020-02-24 13:05 | Outpatient (CLI) | payer OTHER, SELFPAY ==
[2019-10-25 16:13] VITALS: BMI 42.7
[2020-02-24 21:19] LABS: PSA,Total - Annual Screen 1.39 ng/mL (0.00-4.00)
== END ==
PROVIDERS: PCP Family Medicine; Visit Provider Urology
DX: Z12.5 Encounter for screening for malignant neoplasm of prostate (principal)
CPT/HCPCS: 36415; 84153; G0103

== ENCOUNTER 2020-03-20 14:43 | Outpatient (RCR) | payer OTHER, SELFPAY ==
[2019-10-25 16:13] VITALS: BMI 42.7
[2020-02-29 16:41] VITALS: BMI 42.7
[2020-03-03 13:30] LABS: SARS-COV-2 TOTAL ABS Nonreactive (Nonreactive)
[2020-03-06 15:59] LABS: Hematocrit 45.6 % (40-54); Hemoglobin 12.2 g/dL (13.0-16.5); Mean Corp Hgb Conc 26.8 g/dL (32-36); Mean Corpuscular Hgb 21.4 pg (27.0-32.0); POSITIVE COUNT YES; Platelet Count 94 K/mm3 (150-450); RBC Distribution Width CV 19.9 % (11.6-14.6); RBC Distribution Width SD 53.5 fl (35.1-43.9); White Blood Count 10.1 K/mm3 (4.4-11.0)
[2020-03-06 16:04] LABS: Scan Indicated on CBC? Y/N YES- FLAGS NOTED
[2020-03-06 16:33] LABS: Vitamin D,25 Hydroxy 58.6 ng/mL
[2020-03-06 16:39] LABS: ALB/GLOB Ratio 1.1 RATIO (0.9-2.4); AST(SGOT) 17 U/L (15-37); Alanine Aminotransfer ALT/SGPT 28 U/L (16-61); Alkaline Phosphatase 60 U/L (45-117); Anion Gap 8 (5-15); BUN 18 mg/dL (7-18); BUN/Creat Ratio 14.6 RATIO (10-20); Calcium,Total 9.8 mg/dL (8.5-10.1); Chloride 103 mmol/L (98-107); Creatinine, Serum 1.23 mg/dL (0.70-1.30); EST Glomerular Filtration Rate 62 mL/min (>60); Est Glom Filt Rate - Afr Amer 75 mL/min (>60); Ferritin 6 ng/mL (26-388); Globulin 3.8 g/dL (2.2-4.2); Glucose 144 mg/dL (74-106); Potassium 3.9 mmol/L (3.5-5.1); Protein, Total 7.8 g/dL (6.4-8.2); Sodium Level 139 mmol/L (136-145); T4 Free Direct 1.14 ng/dL (0.76-1.46); Thyroid Stim Hormone (TSH) 0.89 uIU/mL (0.358-3.74)
[2020-03-06 17:12] LABS: Hemoglobin A1c 7.3 % (3.8-5.6)
[2020-03-20 15:29] LABS: Hematocrit 42.4 % (40-54); Hemoglobin 11.3 g/dL (13.0-16.5); Mean Corp Hgb Conc 26.7 g/dL (32-36); Mean Corpuscular Hgb 21.4 pg (27.0-32.0); Mean Corpuscular Volume 80.2 fL (80-94); Mean Platelet Vol. 10.7 fl (6.2-12.0); Platelet Count 305 K/mm3 (150-450); RBC Distribution Width CV 18.9 % (11.6-14.6); RBC Distribution Width SD 52.9 fl (35.1-43.9); Red Blood Count 5.29 M/mm3 (4.6-6.2); White Blood Count 7.1 K/mm3 (4.4-11.0)
[2020-03-20 16:22] LABS: Ferritin 5 ng/mL (26-388)
== END 2020-03-20 18:00 | disposition home or self-care (01) ==
LOC: LAB 14:43
PROVIDERS: Family Provider Family Medicine; PCP Family Medicine; Visit Provider Family Medicine
DX: D75.1 Secondary polycythemia (principal); E11.9 Type 2 diabetes mellitus without complications; I10 Essential (primary) hypertension; E55.9 Vitamin D deficiency, unspecified; Z20.828 Contact with and (suspected) exposure to other viral communicable diseases
CPT/HCPCS: 36415; 80053; 82306; 82728; 83036; 84439; 84443; 85027; 86769

== ENCOUNTER 2020-04-17 11:36 | Outpatient (RCR) | payer OTHER, SELFPAY ==
[2020-03-21 13:41] VITALS: BMI 42.1
[2020-04-03 12:49] LABS: Hematocrit 40.9 % (40-54); Hemoglobin 11.1 g/dL (13.0-16.5); Mean Corp Hgb Conc 27.1 g/dL (32-36); Mean Corpuscular Hgb 21.8 pg (27.0-32.0); Mean Corpuscular Volume 80.2 fL (80-94); Mean Platelet Vol. 9.9 fl (6.2-12.0); Platelet Count 165 K/mm3 (150-450); RBC Distribution Width SD 54.1 fl (35.1-43.9); White Blood Count 6.8 K/mm3 (4.4-11.0)
[2020-04-03 14:02] LABS: Ferritin 6 ng/mL (26-388)
[2020-04-17 12:21] LABS: Absolute Lymphocyte Count 1.19 X10^3/uL (0.83-4.51); Absolute Neutrophil Count 3.1 X10^3/uL (2.0-7.7); Basophil# 0.11 X10^3/uL; Basophil% 2.1 % (0-1); Eosinophil# 0.29 X10^3/uL; Eosinophils% 5.5 % (0-5); Hematocrit 37.1 % (40-54); Hemoglobin 9.9 g/dL (13.0-16.5); Lymphocyte # 1.19 X10^3/ul (4.0); Lymphocyte % 22.8 % (19-41); Mean Corp Hgb Conc 26.7 g/dL (32-36); Mean Corpuscular Hgb 21.2 pg (27.0-32.0); Mean Corpuscular Volume 79.3 fL (80-94); Mean Platelet Vol. 10.8 fl (6.2-12.0); Monocyte# 0.52 X10^3/uL; Monocyte% 9.9 % (0-10); NRBC Flagged by Analyzer 0 % (0-5); Neutrophil % 59.3 % (47-70); Platelet Count 214 K/mm3 (150-450); RBC Distribution Width CV 19.3 % (11.6-14.6); RBC Distribution Width SD 52.7 fl (35.1-43.9); Red Blood Count 4.68 M/mm3 (4.6-6.2); White Blood Count 5.2 K/mm3 (4.4-11.0)
[2020-04-17 13:02] LABS: Ferritin 5 ng/mL (26-388)
== END 2020-04-17 18:00 | disposition home or self-care (01) ==
LOC: LAB 11:36
PROVIDERS: Family Provider Family Medicine; PCP Family Medicine; Referring Provider Family Medicine; Visit Provider Family Medicine
DX: D75.1 Secondary polycythemia (principal)
CPT/HCPCS: 36415; 82728; 85025; 85027

== ENCOUNTER → 2020-05-16 09:56 | Outpatient (CLI) | payer OTHER, SELFPAY ==
[2020-03-21 13:41] VITALS: BMI 42.1
[2020-05-11 14:19] VITALS: BMI 42.5
--- NOTE | 2020-05-16 13:42 | PFT ---
INTRODUCTION: The patient is a 65-year-old male that presents for pulmonary function studies secondary to a diagnosis of dyspnea. Respiratory therapy reports good patient effort. Bronchodilators were used during testing. INTERPRETATION: Forced expiration spirometry demonstrates no evidence of a large airways obstructive ventilatory defect. There was no significant response to aerosolized bronchodilators, based upon strict ATS criteria. Spirograms are of good quality and plateau normally. Body plethysmography was performed and revealed an elevated RV to 144% of predicted, indicative of underlying air trapping. Diffusing capacity by single breath CO is within normal limits. IMPRESSION: Stigmata of small airways disease with robust mid flow bronchodilator response and evidence of air trapping.
== END ==
PROVIDERS: PCP Family Medicine; Referring Provider Nurse Practitioner Acute Care; Visit Provider Nurse Practitioner Acute Care
DX: R06.09 Other forms of dyspnea (principal)
CPT/HCPCS: 94060; 94726; 94729

== ENCOUNTER → 2020-05-23 10:50 | Outpatient (CLI) | payer OTHER, SELFPAY ==
[2020-03-21 13:41] VITALS: BMI 42.1
[2020-05-11 14:19] VITALS: BMI 42.5
[2020-05-23 11:00] VITALS: PULSE 102; PULSE 109; PULSE 113; PULSE 119; PULSE 74; PULSE 84; O2SAT 94; O2SAT 95; O2SAT 98
--- NOTE | 2020-05-25 08:29 | PCM.PSN.6M ---
PSN 6 Minute Walk Test - 6 Minute Walk Test 6 Minute Walk Test: 6 Minute Walk Test PSN:6-Minute Walk Test Start: 05/23/20 11:17 Freq: Status: Active Protocol: RESP.6MINW Document 05/23/20 11:00 (Rec: 05/23/20 11:21 [id number]) 6 Minute Walk Test Date Performed 05/23/20 Time Performed 11:00 Height 6 ft 9 in Weight: 270 lb Weight in Pounds 270.[address]: Toma Morley FIO2 (% Oxygen) 21 Assistive device used: None Pre-test Oxygen Delivery Method Room Air Pulse Ox (%) 98 Pulse Rate (60-100 beats/min) 74 Dyspnea Afua Scale (0-10) 0 Exertion Afua Scale (6-20) 6 1st minute Oxygen Delivery Method Room Air Pulse Ox (%) 95 Pulse Rate (60-100 beats/min) 102 H 2nd minute Oxygen Delivery Method Room Air Pulse Ox (%) 95 Pulse Rate (60-100 beats/min) 113 H 3rd minute Oxygen Delivery Method Room Air Pulse Ox (%) 95 Pulse Rate (60-100 beats/min) 119 H Number of Rests Taken 1 4th minute Oxygen Delivery Method Room Air Pulse Ox (%) 94 Pulse Rate (60-100 beats/min) 109 H 5th minute Oxygen Delivery Method Room Air Pulse Ox (%) 95 Pulse Rate (60-100 beats/min) 113 H Number of Rests Taken 1 6th minute Oxygen Delivery Method Room Air Pulse Ox (%) 95 Pulse Rate (60-100 beats/min) 109 H Post-test Oxygen Delivery Method Room Air Pulse Ox (%) 98 Pulse Rate (60-100 beats/min) 84 Dyspnea Afua Scale (0-10) 2 Exertion Afua Scale (6-20) 11 Full Laps Walked 12 Partial Lap, Number of Tiles Walked 0 Total Distance Walked (ft) 708 - Interpretation Interpretation: The patient ambulated 780 feet over the course of 6 minutes beginning on room air without assistive devices or breaks. Pretesting oxygen saturation was noted to be 98% on room air. With ambulation, the xenia oxygen saturation was 94%. Although there was evidence of impaired walk distance, there was no significant exertional oxygen desaturation. - Recommendations Recommendations: There is no indication for the use of supplemental oxygen at this time.
== END ==
PROVIDERS: PCP Family Medicine; Referring Provider Nurse Practitioner Acute Care; Visit Provider Nurse Practitioner Acute Care
DX: R06.09 Other forms of dyspnea (principal)
CPT/HCPCS: 94618

== ENCOUNTER 2020-05-29 16:20 | Outpatient (RCR) | payer OTHER, SELFPAY ==
[2020-04-25 13:48] VITALS: BMI 42.1
[2020-05-01 15:17] LABS: Hematocrit 39.8 % (40-54); Hemoglobin 10.8 g/dL (13.0-16.5); Mean Corp Hgb Conc 27.1 g/dL (32-36); Mean Corpuscular Hgb 21.5 pg (27.0-32.0); Mean Corpuscular Volume 79.3 fL (80-94); Mean Platelet Vol. 10.3 fl (6.2-12.0); POSITIVE MORPHOLOGY YES; Platelet Count 308 K/mm3 (150-450); RBC Distribution Width CV 20.6 % (11.6-14.6); RBC Distribution Width SD 56.2 fl (35.1-43.9); Red Blood Count 5.02 M/mm3 (4.6-6.2); White Blood Count 9.1 K/mm3 (4.4-11.0)
[2020-05-01 15:47] LABS: Scan Indicated on CBC? Y/N YES- FLAGS NOTED
[2020-05-01 15:53] LABS: Ferritin 6 ng/mL (26-388)
[2020-05-15 17:31] LABS: Absolute Neutrophil Count 4.6 X10^3/uL (2.0-7.7); Basophil# 0.13 X10^3/uL; Basophil% 1.7 % (0-1); Eosinophil# 0.33 X10^3/uL; Eosinophils% 4.2 % (0-5); Hematocrit 39.4 % (40-54); Hemoglobin 10.6 g/dL (13.0-16.5); Lymphocyte % 24.4 % (19-41); Mean Corp Hgb Conc 26.9 g/dL (32-36); Mean Corpuscular Hgb 21.2 pg (27.0-32.0); Mean Platelet Vol. 9.5 fl (6.2-12.0); Monocyte% 10.3 % (0-10); NRBC Flagged by Analyzer 0 % (0-5); Neutrophil # 4.62 X10^3/uL (2.7-7.7); Neutrophil % 59.1 % (47-70); Platelet Count 188 K/mm3 (150-450); RBC Distribution Width CV 19.6 % (11.6-14.6); RBC Distribution Width SD 53.7 fl (35.1-43.9); Red Blood Count 4.99 M/mm3 (4.6-6.2); White Blood Count 7.8 K/mm3 (4.4-11.0)
[2020-05-15 17:58] LABS: Ferritin 6 ng/mL (26-388)
[2020-05-29 16:49] LABS: Absolute Lymphocyte Count 1.96 X10^3/uL (0.83-4.51); Absolute Neutrophil Count 7.4 X10^3/uL (2.0-7.7); Basophil# 0.18 X10^3/uL; Basophil% 1.6 % (0-1); Eosinophil# 0.31 X10^3/uL; Eosinophils% 2.8 % (0-5); Hemoglobin 11.3 g/dL (13.0-16.5); Lymphocyte # 1.96 X10^3/ul (4.0); Lymphocyte % 17.9 % (19-41); Mean Corp Hgb Conc 26.3 g/dL (32-36); Mean Corpuscular Hgb 20.9 pg (27.0-32.0); Mean Corpuscular Volume 79.5 fL (80-94); Monocyte# 1.04 X10^3/uL; Monocyte% 9.5 % (0-10); NRBC Flagged by Analyzer 0 % (0-5); Neutrophil % 67.8 % (47-70); POSITIVE MORPHOLOGY YES; Platelet Count 313 K/mm3 (150-450); RBC Distribution Width CV 20.2 % (11.6-14.6); RBC Distribution Width SD 55.4 fl (35.1-43.9); Red Blood Count 5.41 M/mm3 (4.6-6.2); White Blood Count 10.9 K/mm3 (4.4-11.0)
[2020-05-29 17:11] LABS: Differential Indicated SCAN CRITERIA MET
[2020-05-29 17:28] LABS: Ferritin 6 ng/mL (26-388)
[2020-05-29 21:19] LABS: Anisocytosis 1+; Platelet Estimate ADEQUATE (ADEQ); Red Cell Morphology N CHROM NORMAL (NORM C&C)
== END 2020-05-29 18:00 | disposition home or self-care (01) ==
LOC: LAB 16:20
PROVIDERS: Family Provider Family Medicine; PCP Family Medicine; Visit Provider Internal Medicine Hematology & Oncology
DX: D75.1 Secondary polycythemia (principal)
CPT/HCPCS: 36415; 82728; 85025; 85027

== ENCOUNTER → 2020-06-12 16:22 | Outpatient (CLI) | payer OTHER, SELFPAY ==
[2020-05-11 14:19] VITALS: BMI 42.5
[2020-06-12 16:49] LABS: Absolute Lymphocyte Count 1.83 X10^3/uL (0.83-4.51); Absolute Neutrophil Count 5.6 X10^3/uL (2.0-7.7); Basophil# 0.09 X10^3/uL; Eosinophil# 0.35 X10^3/uL; Hematocrit 40.2 % (40-54); Lymphocyte # 1.83 X10^3/ul (4.0); Lymphocyte % 21.2 % (19-41); Mean Corp Hgb Conc 27.4 g/dL (32-36); Mean Corpuscular Hgb 21.7 pg (27.0-32.0); Mean Corpuscular Volume 79.1 fL (80-94); Mean Platelet Vol. 10.4 fl (6.2-12.0); Monocyte# 0.75 X10^3/uL; Monocyte% 8.7 % (0-10); NRBC Flagged by Analyzer 0 % (0-5); Neutrophil % 64.8 % (47-70); Platelet Count 139 K/mm3 (150-450); RBC Distribution Width CV 19.1 % (11.6-14.6); RBC Distribution Width SD 52.9 fl (35.1-43.9); Red Blood Count 5.08 M/mm3 (4.6-6.2); White Blood Count 8.7 K/mm3 (4.4-11.0)
[2020-06-12 17:33] LABS: Ferritin 6 ng/mL (26-388)
== END ==
PROVIDERS: PCP Family Medicine; Visit Provider Internal Medicine Hematology & Oncology
DX: R71.8 Other abnormality of red blood cells (principal)
CPT/HCPCS: 36415; 82728; 85025

== ENCOUNTER 2020-06-26 08:48 | Outpatient (RCR) | payer OTHER, SELFPAY ==
[2020-05-11 14:19] VITALS: BMI 42.5
[2020-06-26 13:25] LABS: Ferritin 5 ng/mL (26-388)
== END 2020-06-26 18:00 | disposition home or self-care (01) ==
LOC: LAB 08:48
PROVIDERS: Family Provider Family Medicine; PCP Family Medicine; Visit Provider Internal Medicine Hematology & Oncology
DX: D75.1 Secondary polycythemia (principal)
CPT/HCPCS: 36415; 82728

== ENCOUNTER → 2020-07-25 07:56 | Outpatient (CLI) | payer OTHER, SELFPAY ==
[2020-07-12 09:45] VITALS: BMI 43.8
--- NOTE | 2020-07-25 07:57 | US_ITS ---
STUDY: ABDOMINAL ULTRASOUND REASON FOR EXAM: Male, 65 years old. thrombocytopenia , hx RT nephrectomy TECHNIQUE: Transabdominal ultrasound was performed with real-time and static chacon scale imaging. TECHNICAL QUALITY: Adequate. COMPARISON: None. FINDINGS: Liver: The liver measures 18.3 cm. There is increased echogenicity consistent with fatty infiltration. The bile ducts are within normal limits. There is hepatic color flow. The direction of portal flow is hepatopetal. There is no demonstrated mass lesion. Portal vein measurement: Gallbladder: Normal distended gallbladder. The gallbladder wall measures 2.5 mm. There is a negative sonographic Sharma''s sign. There is no pericholecystic fluid. There are no gallstones. Common Bile Duct (C.B.D.): The common bile duct measures 6.9 mm. Pancreas: Obscured by gas. Spleen: There is splenomegaly. The spleen measures 16 cm. Right Kidney: Normal size of the right kidney. The right kidney measures 11.3 x 5.4 x 5.3 cm. Changes of partial right nephrectomy. The right cortex measures 1.8 cm. There is no demonstrated renal mass or cyst. There is no right hydronephrosis. Left Kidney: Normal size of the left kidney. The left kidney measures 13.3 x 7.4 x 5.0 cm. Normal renal cortex. The left cortex measures 2.2 cm. There is no demonstrated renal mass or cyst. There is no left hydronephrosis. IMPRESSION: No renal masses are seen. Fatty liver. Prominent common bile duct. Normal gallbladder. Splenomegaly. Electronically Signed: Goyo Farrar MD at 21:37 EDT Tel , Service support , STUDY: ABDOMINAL ULTRASOUND REASON FOR EXAM: Male, 65 years old. thrombocytopenia , hx RT nephrectomy TECHNIQUE: Transabdominal ultrasound was performed with real-time and static chacon scale imaging. TECHNICAL QUALITY: Adequate. COMPARISON: None. FINDINGS: Liver: The liver measures 18.3 cm. There is increased echogenicity consistent with fatty infiltration. The bile ducts are within normal limits. There is hepatic color flow. The direction of portal flow is hepatopetal. There is no demonstrated mass lesion. Portal vein measurement: Gallbladder: Normal distended gallbladder. The gallbladder wall measures 2.5 mm. There is a negative sonographic Sharma''s sign. There is no pericholecystic fluid. There are no gallstones. Common Bile Duct (C.B.D.): The common bile duct measures 6.9 mm. Pancreas: Obscured by gas. Spleen: There is splenomegaly. The spleen measures 16 cm. Right Kidney: Normal size of the right kidney. The right kidney measures 11.3 x 5.4 x 5.3 cm. Changes of partial right nephrectomy. The right cortex measures 1.8 cm. There is no demonstrated renal mass or cyst. There is no right hydronephrosis. Left Kidney: Normal size of the left kidney. The left kidney measures 13.3 x 7.4 x 5.0 cm. Normal renal cortex. The left cortex measures 2.2 cm. There is no demonstrated renal mass or cyst. There is no left hydronephrosis. US/Abdomen Limited
== END ==
PROVIDERS: PCP Family Medicine; Referring Provider Internal Medicine Hematology & Oncology; Visit Provider Internal Medicine Hematology & Oncology
DX: C64.1 Malignant neoplasm of right kidney, except renal pelvis (principal); D69.6 Thrombocytopenia, unspecified
CPT/HCPCS: 76705

== ENCOUNTER 2020-07-25 08:36 | Outpatient (RCR) | payer OTHER, SELFPAY ==
[2020-05-11 14:19] VITALS: BMI 42.5
[2020-07-11 10:10] LABS: Absolute Lymphocyte Count 1.36 X10^3/uL (0.83-4.51); Absolute Neutrophil Count 3.2 X10^3/uL (2.0-7.7); Basophil% 1.9 % (0-1); Eosinophil# 0.23 X10^3/uL; Eosinophils% 4.3 % (0-5); Hematocrit 40.8 % (40-54); Lymphocyte # 1.36 X10^3/ul (4.0); Lymphocyte % 25.4 % (19-41); Mean Corpuscular Hgb 21.7 pg (27.0-32.0); Mean Corpuscular Volume 80.3 fL (80-94); Monocyte# 0.45 X10^3/uL; Monocyte% 8.4 % (0-10); NRBC Flagged by Analyzer 0 % (0-5); Neutrophil % 59.6 % (47-70); POSITIVE COUNT YES; Platelet Count 61 K/mm3 (150-450); RBC Distribution Width CV 19.6 % (11.6-14.6); RBC Distribution Width SD 53.7 fl (35.1-43.9); Red Blood Count 5.08 M/mm3 (4.6-6.2); White Blood Count 5.4 K/mm3 (4.4-11.0)
[2020-07-11 10:32] LABS: Ferritin 8 ng/mL (26-388)
[2020-07-11 10:39] LABS: Differential Indicated SCAN CRITERIA MET
[2020-07-11 10:40] LABS: Anisocytosis 1+; Platelet Estimate MKD DEC (ADEQ); Platelet Morphology LARGE
[2020-07-25 10:04] LABS: Basophil# 0.12 X10^3/uL; Basophil% 1.9 % (0-1); Eosinophils% 4.7 % (0-5); Hematocrit 40.3 % (40-54); Hemoglobin 10.7 g/dL (13.0-16.5); Lymphocyte % 20.3 % (19-41); Mean Corp Hgb Conc 26.6 g/dL (32-36); Mean Corpuscular Hgb 20.9 pg (27.0-32.0); Mean Corpuscular Volume 78.9 fL (80-94); Mean Platelet Vol. 10.1 fl (6.2-12.0); Monocyte# 0.63 X10^3/uL; Monocyte% 9.8 % (0-10); NRBC Flagged by Analyzer 0 % (0-5); Neutrophil # 4.03 X10^3/uL (2.7-7.7); Platelet Count 339 K/mm3 (150-450); RBC Distribution Width CV 18.6 % (11.6-14.6); RBC Distribution Width SD 52.7 fl (35.1-43.9); Red Blood Count 5.11 M/mm3 (4.6-6.2); White Blood Count 6.4 K/mm3 (4.4-11.0)
[2020-07-25 10:32] LABS: Ferritin 5 ng/mL (26-388)
[2020-08-10 13:34] LABS: Pathologist Review Reviewed
== END 2020-07-25 18:00 | disposition home or self-care (01) ==
LOC: LAB 08:36
PROVIDERS: Family Provider Family Medicine; PCP Family Medicine; Referring Provider Internal Medicine Hematology & Oncology; Visit Provider Internal Medicine Hematology & Oncology
DX: D75.1 Secondary polycythemia (principal)
CPT/HCPCS: 36415; 82728; 85025

== ENCOUNTER 2020-08-07 11:38 | Outpatient (RCR) | payer OTHER, SELFPAY ==
[2020-07-12 09:45] VITALS: BMI 43.8
[2020-08-07 11:58] LABS: Absolute Lymphocyte Count 1.18 X10^3/uL (0.83-4.51); Absolute Neutrophil Count 4.8 X10^3/uL (2.0-7.7); Basophil# 0.09 X10^3/uL; Basophil% 1.3 % (0-1); Eosinophil# 0.26 X10^3/uL; Eosinophils% 3.8 % (0-5); Hemoglobin 11.6 g/dL (13.0-16.5); Lymphocyte # 1.18 X10^3/ul (4.0); Lymphocyte % 17.3 % (19-41); Mean Corpuscular Hgb 21.6 pg (27.0-32.0); Mean Corpuscular Volume 80.1 fL (80-94); Monocyte# 0.48 X10^3/uL; NRBC Flagged by Analyzer 0 % (0-5); Neutrophil # 4.81 X10^3/uL (2.7-7.7); Neutrophil % 70.3 % (47-70); POSITIVE COUNT YES; Platelet Count 89 K/mm3 (150-450); RBC Distribution Width CV 19.9 % (11.6-14.6); RBC Distribution Width SD 55.7 fl (35.1-43.9); Red Blood Count 5.37 M/mm3 (4.6-6.2); White Blood Count 6.8 K/mm3 (4.4-11.0)
[2020-08-07 12:00] LABS: Differential Indicated SCAN CRITERIA MET
[2020-08-07 12:13] LABS: Ferritin 6 ng/mL (26-388)
[2020-08-07 13:17] LABS: Anisocytosis 1+; Platelet Estimate MOD DEC (ADEQ); Polychromasia 1+
[2020-08-10 13:34] LABS: Pathologist Review Reviewed
[2020-08-21 15:33] LABS: Absolute Lymphocyte Count 1.74 X10^3/uL (0.83-4.51); Absolute Neutrophil Count 7.1 X10^3/uL (2.0-7.7); Basophil# 0.12 X10^3/uL; Basophil% 1.2 % (0-1); Eosinophil# 0.21 X10^3/uL; Eosinophils% 2.1 % (0-5); Hematocrit 44.5 % (40-54); Lymphocyte # 1.74 X10^3/ul (4.0); Lymphocyte % 17.1 % (19-41); Mean Corpuscular Hgb 21.3 pg (27.0-32.0); Mean Platelet Vol. 9.8 fl (6.2-12.0); Monocyte# 0.95 X10^3/uL; Monocyte% 9.3 % (0-10); NRBC Flagged by Analyzer 0.2 % (0-5); Neutrophil # 7.14 X10^3/uL (2.7-7.7); Platelet Count 359 K/mm3 (150-450); RBC Distribution Width CV 19.1 % (11.6-14.6); RBC Distribution Width SD 52.5 fl (35.1-43.9); Red Blood Count 5.63 M/mm3 (4.6-6.2); White Blood Count 10.2 K/mm3 (4.4-11.0)
[2020-08-21 16:05] LABS: Ferritin 6 ng/mL (26-388)
== END 2020-08-07 18:00 | disposition home or self-care (01) ==
LOC: LAB 11:38
PROVIDERS: Family Provider Family Medicine; PCP Family Medicine; Referring Provider Internal Medicine Hematology & Oncology; Visit Provider Internal Medicine Hematology & Oncology
DX: D75.1 Secondary polycythemia (principal)
CPT/HCPCS: 36415; 82728; 85025

== ENCOUNTER 2020-09-18 11:36 | Outpatient (RCR) | payer OTHER, SELFPAY ==
[2020-07-12 09:45] VITALS: BMI 43.8
[2020-09-04 12:17] LABS: Absolute Lymphocyte Count 1.46 X10^3/uL (0.83-4.51); Absolute Neutrophil Count 4.6 X10^3/uL (2.0-7.7); Basophil# 0.14 X10^3/uL; Eosinophil# 0.32 X10^3/uL; Eosinophils% 4.5 % (0-5); Hematocrit 43.3 % (40-54); Hemoglobin 11.5 g/dL (13.0-16.5); Lymphocyte # 1.46 X10^3/ul (4.0); Lymphocyte % 20.5 % (19-41); Mean Corp Hgb Conc 26.6 g/dL (32-36); Mean Corpuscular Hgb 21.2 pg (27.0-32.0); Mean Corpuscular Volume 79.7 fL (80-94); Mean Platelet Vol. 10.4 fl (6.2-12.0); Monocyte% 8.4 % (0-10); NRBC Flagged by Analyzer 0.3 % (0-5); Neutrophil # 4.56 X10^3/uL (2.7-7.7); POSITIVE MORPHOLOGY YES; Platelet Count 182 K/mm3 (150-450); RBC Distribution Width CV 20.4 % (11.6-14.6); RBC Distribution Width SD 56.8 fl (35.1-43.9); Red Blood Count 5.43 M/mm3 (4.6-6.2); White Blood Count 7.1 K/mm3 (4.4-11.0)
[2020-09-04 12:19] LABS: Differential Indicated SCAN CRITERIA MET
[2020-09-04 12:59] LABS: Ferritin 7 ng/mL (26-388)
[2020-09-04 13:52] LABS: Anisocytosis 1+
[2020-09-18 12:18] LABS: Absolute Lymphocyte Count 1.63 X10^3/uL (0.83-4.51); Basophil# 0.14 X10^3/uL; Basophil% 2.1 % (0-1); Eosinophil# 0.24 X10^3/uL; Eosinophils% 3.5 % (0-5); Hematocrit 41.2 % (40-54); Hemoglobin 10.9 g/dL (13.0-16.5); Lymphocyte # 1.63 X10^3/ul (4.0); Lymphocyte % 24.1 % (19-41); Mean Corp Hgb Conc 26.5 g/dL (32-36); Mean Corpuscular Hgb 20.8 pg (27.0-32.0); Mean Corpuscular Volume 78.6 fL (80-94); Mean Platelet Vol. 10.8 fl (6.2-12.0); Monocyte# 0.69 X10^3/uL; Monocyte% 10.2 % (0-10); NRBC Flagged by Analyzer 0 % (0-5); Neutrophil # 4.04 X10^3/uL (2.7-7.7); Neutrophil % 59.7 % (47-70); Platelet Count 311 K/mm3 (150-450); RBC Distribution Width CV 19.4 % (11.6-14.6); RBC Distribution Width SD 53.4 fl (35.1-43.9); Red Blood Count 5.24 M/mm3 (4.6-6.2); White Blood Count 6.8 K/mm3 (4.4-11.0)
[2020-09-18 12:49] LABS: Ferritin 8 ng/mL (26-388)
== END 2020-09-18 18:00 | disposition home or self-care (01) ==
LOC: LAB 11:36
PROVIDERS: Family Provider Family Medicine; PCP Family Medicine; Referring Provider Internal Medicine Hematology & Oncology; Visit Provider Internal Medicine Hematology & Oncology
DX: D75.1 Secondary polycythemia (principal)
CPT/HCPCS: 36415; 82728; 85025

== ENCOUNTER 2020-10-16 11:22 | Outpatient (RCR) | payer OTHER, SELFPAY ==
[2020-10-03 09:17] LABS: Absolute Lymphocyte Count 1.46 X10^3/uL (0.83-4.51); Absolute Neutrophil Count 4.1 X10^3/uL (2.0-7.7); Basophil# 0.13 X10^3/uL; Basophil% 1.9 % (0-1); Eosinophil# 0.34 X10^3/uL; Eosinophils% 5.1 % (0-5); Hematocrit 41.1 % (40-54); Hemoglobin 11.2 g/dL (13.0-16.5); Lymphocyte # 1.46 X10^3/ul (4.0); Lymphocyte % 21.8 % (19-41); Mean Corp Hgb Conc 27.3 g/dL (32-36); Mean Corpuscular Hgb 21.4 pg (27.0-32.0); Mean Corpuscular Volume 78.4 fL (80-94); Mean Platelet Vol. 9.8 fl (6.2-12.0); NRBC Flagged by Analyzer 0 % (0-5); Neutrophil # 4.13 X10^3/uL (2.7-7.7); Neutrophil % 61.8 % (47-70); POSITIVE MORPHOLOGY YES; Platelet Count 261 K/mm3 (150-450); RBC Distribution Width CV 20.1 % (11.6-14.6); RBC Distribution Width SD 55.7 fl (35.1-43.9); Red Blood Count 5.24 M/mm3 (4.6-6.2); White Blood Count 6.7 K/mm3 (4.4-11.0)
[2020-10-03 09:18] LABS: Differential Indicated SCAN CRITERIA MET
[2020-10-03 09:42] LABS: Ferritin 7 ng/mL (26-388)
[2020-10-03 09:46] LABS: Anisocytosis 2+; Differential Comment SCANNED; Macrocytosis 1+; Microcytosis 1+
[2020-10-16 12:05] LABS: Absolute Lymphocyte Count 1.21 X10^3/uL (0.83-4.51); Absolute Neutrophil Count 4.1 X10^3/uL (2.0-7.7); Basophil# 0.13 X10^3/uL; Basophil% 2.1 % (0-1); Eosinophil# 0.22 X10^3/uL; Eosinophils% 3.5 % (0-5); Hematocrit 42.7 % (40-54); Hemoglobin 11.9 g/dL (13.0-16.5); Lymphocyte # 1.21 X10^3/ul (4.0); Lymphocyte % 19.5 % (19-41); Mean Corp Hgb Conc 27.9 g/dL (32-36); Mean Corpuscular Hgb 21.7 pg (27.0-32.0); Mean Corpuscular Volume 77.9 fL (80-94); Mean Platelet Vol. 10.7 fl (6.2-12.0); Monocyte# 0.55 X10^3/uL; Monocyte% 8.9 % (0-10); NRBC Flagged by Analyzer 0 % (0-5); Neutrophil # 4.06 X10^3/uL (2.7-7.7); Neutrophil % 65.5 % (47-70); Platelet Count 201 K/mm3 (150-450); RBC Distribution Width CV 19.4 % (11.6-14.6); RBC Distribution Width SD 52.6 fl (35.1-43.9); Red Blood Count 5.48 M/mm3 (4.6-6.2); White Blood Count 6.2 K/mm3 (4.4-11.0)
[2020-10-16 12:34] LABS: Ferritin 6 ng/mL (26-388)
== END 2020-10-16 18:00 | disposition home or self-care (01) ==
LOC: LAB 11:22
PROVIDERS: Family Provider Family Medicine; PCP Family Medicine; Referring Provider Internal Medicine Hematology & Oncology; Visit Provider Internal Medicine Hematology & Oncology
DX: D75.1 Secondary polycythemia (principal); D50.9 Iron deficiency anemia, unspecified
CPT/HCPCS: 36415; 82728; 85025

== ENCOUNTER 2020-11-13 12:53 | Outpatient (RCR) | payer OTHER, SELFPAY ==
[2020-10-30 14:24] LABS: Absolute Lymphocyte Count 1.48 X10^3/uL (0.83-4.51); Absolute Neutrophil Count 5.9 X10^3/uL (2.0-7.7); Basophil# 0.12 X10^3/uL; Basophil% 1.4 % (0-1); Eosinophil# 0.28 X10^3/uL; Eosinophils% 3.3 % (0-5); Hemoglobin 11.9 g/dL (13.0-16.5); Lymphocyte # 1.48 X10^3/ul (4.0); Lymphocyte % 17.2 % (19-41); Mean Corp Hgb Conc 28.3 g/dL (32-36); Mean Corpuscular Hgb 22.5 pg (27.0-32.0); Mean Corpuscular Volume 79.4 fL (80-94); Mean Platelet Vol. 9.7 fl (6.2-12.0); Monocyte# 0.72 X10^3/uL; Monocyte% 8.4 % (0-10); NRBC Flagged by Analyzer 0 % (0-5); Neutrophil # 5.93 X10^3/uL (2.7-7.7); Neutrophil % 69.1 % (47-70); POSITIVE MORPHOLOGY YES; Platelet Count 231 K/mm3 (150-450); RBC Distribution Width CV 20.3 % (11.6-14.6); RBC Distribution Width SD 53.8 fl (35.1-43.9); Red Blood Count 5.29 M/mm3 (4.6-6.2); White Blood Count 8.6 K/mm3 (4.4-11.0)
[2020-10-30 14:25] LABS: Differential Indicated SCAN CRITERIA MET
[2020-10-30 14:42] LABS: Ferritin 7 ng/mL (26-388)
[2020-10-30 14:45] LABS: Anisocytosis 1+
[2020-11-13 13:10] LABS: Absolute Lymphocyte Count 1.48 X10^3/uL (0.83-4.51); Absolute Neutrophil Count 4.2 X10^3/uL (2.0-7.7); Basophil# 0.13 X10^3/uL; Basophil% 1.9 % (0-1); Hematocrit 43.9 % (40-54); Lymphocyte # 1.48 X10^3/ul (4.0); Lymphocyte % 22.1 % (19-41); Mean Corp Hgb Conc 27.3 g/dL (32-36); Mean Corpuscular Hgb 21.4 pg (27.0-32.0); Mean Corpuscular Volume 78.4 fL (80-94); Mean Platelet Vol. 10.8 fl (6.2-12.0); Monocyte# 0.67 X10^3/uL; NRBC Flagged by Analyzer 0 % (0-5); Neutrophil # 4.19 X10^3/uL (2.7-7.7); Neutrophil % 62.7 % (47-70); Platelet Count 164 K/mm3 (150-450); RBC Distribution Width CV 18.7 % (11.6-14.6); White Blood Count 6.7 K/mm3 (4.4-11.0)
[2020-11-13 13:47] LABS: Ferritin 7 ng/mL (26-388)
== END 2020-11-13 18:00 | disposition home or self-care (01) ==
LOC: LAB 12:53
PROVIDERS: Family Provider Family Medicine; PCP Family Medicine; Referring Provider Internal Medicine Hematology & Oncology; Visit Provider Internal Medicine Hematology & Oncology
DX: D75.1 Secondary polycythemia (principal); D50.9 Iron deficiency anemia, unspecified
CPT/HCPCS: 36415; 82728; 85025

== ENCOUNTER 2020-12-11 11:26 | Outpatient (RCR) | payer OTHER, SELFPAY ==
[2020-11-27 12:02] LABS: Absolute Lymphocyte Count 1.23 X10^3/uL (0.83-4.51); Absolute Neutrophil Count 4.3 X10^3/uL (2.0-7.7); Basophil# 0.12 X10^3/uL; Basophil% 1.9 % (0-1); Eosinophil# 0.26 X10^3/uL; Eosinophils% 4.1 % (0-5); Hematocrit 44.2 % (40-54); Hemoglobin 12.3 g/dL (13.0-16.5); Lymphocyte # 1.23 X10^3/ul (4.0); Lymphocyte % 19.2 % (19-41); Mean Corp Hgb Conc 27.8 g/dL (32-36); Mean Corpuscular Hgb 22.1 pg (27.0-32.0); Mean Corpuscular Volume 79.5 fL (80-94); Mean Platelet Vol. 10.1 fl (6.2-12.0); Monocyte# 0.52 X10^3/uL; Monocyte% 8.1 % (0-10); NRBC Flagged by Analyzer 0.3 % (0-5); Neutrophil # 4.25 X10^3/uL (2.7-7.7); Neutrophil % 66.4 % (47-70); POSITIVE MORPHOLOGY YES; Platelet Count 220 K/mm3 (150-450); RBC Distribution Width CV 20.2 % (11.6-14.6); RBC Distribution Width SD 51.9 fl (35.1-43.9); Red Blood Count 5.56 M/mm3 (4.6-6.2); White Blood Count 6.4 K/mm3 (4.4-11.0)
[2020-11-27 12:07] LABS: Differential Indicated SCAN CRITERIA MET
[2020-11-27 13:01] LABS: Ferritin 6 ng/mL (26-388)
[2020-11-27 13:17] LABS: Anisocytosis 1+
[2020-12-11 12:21] LABS: Absolute Lymphocyte Count 1.26 X10^3/uL (0.83-4.51); Absolute Neutrophil Count 3.6 X10^3/uL (2.0-7.7); Basophil# 0.13 X10^3/uL; Basophil% 2.3 % (0-1); Eosinophil# 0.23 X10^3/uL; Hematocrit 47.6 % (40-54); Hemoglobin 12.8 g/dL (13.0-16.5); Lymphocyte # 1.26 X10^3/ul (4.0); Lymphocyte % 21.9 % (19-41); Mean Corp Hgb Conc 26.9 g/dL (32-36); Mean Corpuscular Hgb 21.3 pg (27.0-32.0); Mean Corpuscular Volume 79.3 fL (80-94); Mean Platelet Vol. 10.1 fl (6.2-12.0); Monocyte# 0.54 X10^3/uL; Monocyte% 9.4 % (0-10); NRBC Flagged by Analyzer 0 % (0-5); Neutrophil # 3.59 X10^3/uL (2.7-7.7); Neutrophil % 62.2 % (47-70); Platelet Count 127 K/mm3 (150-450); RBC Distribution Width CV 19.9 % (11.6-14.6); RBC Distribution Width SD 52.4 fl (35.1-43.9); White Blood Count 5.8 K/mm3 (4.4-11.0)
[2020-12-11 12:34] LABS: Ferritin 11 ng/mL (26-388)
== END 2020-12-11 18:00 | disposition home or self-care (01) ==
LOC: LAB 11:26
PROVIDERS: Family Provider Family Medicine; PCP Family Medicine; Referring Provider Internal Medicine Hematology & Oncology; Visit Provider Internal Medicine Hematology & Oncology
DX: D75.1 Secondary polycythemia (principal); D50.9 Iron deficiency anemia, unspecified
CPT/HCPCS: 36415; 82728; 85025

== ENCOUNTER → 2020-12-25 12:04 | Outpatient (CLI) | payer OTHER, SELFPAY ==
[2020-12-12 10:16] VITALS: BMI 44.1
[2020-12-25 12:30] LABS: Absolute Lymphocyte Count 1.28 X10^3/uL (0.83-4.51); Absolute Neutrophil Count 4.6 X10^3/uL (2.0-7.7); Basophil# 0.12 X10^3/uL; Basophil% 1.8 % (0-1); Eosinophil# 0.22 X10^3/uL; Eosinophils% 3.2 % (0-5); Hematocrit 44.6 % (40-54); Hemoglobin 12.3 g/dL (13.0-16.5); Lymphocyte # 1.28 X10^3/ul (4.0); Lymphocyte % 18.8 % (19-41); Mean Corp Hgb Conc 27.6 g/dL (32-36); Mean Corpuscular Hgb 21.4 pg (27.0-32.0); Mean Corpuscular Volume 77.7 fL (80-94); Mean Platelet Vol. 10.3 fl (6.2-12.0); Monocyte# 0.56 X10^3/uL; Monocyte% 8.2 % (0-10); NRBC Flagged by Analyzer 0 % (0-5); Neutrophil # 4.62 X10^3/uL (2.7-7.7); Neutrophil % 67.7 % (47-70); Platelet Count 307 K/mm3 (150-450); RBC Distribution Width CV 19.4 % (11.6-14.6); RBC Distribution Width SD 51.9 fl (35.1-43.9); Red Blood Count 5.74 M/mm3 (4.6-6.2); White Blood Count 6.8 K/mm3 (4.4-11.0)
[2020-12-25 13:02] LABS: Ferritin 7 ng/mL (26-388); T4 Free Direct 1.22 ng/dL (0.76-1.46); Thyroid Stim Hormone (TSH) 1.52 uIU/mL (0.358-3.74)
== END ==
PROVIDERS: PCP Family Medicine; Visit Provider Family Medicine
DX: E03.9 Hypothyroidism, unspecified (principal)
CPT/HCPCS: 36415; 82728; 84439; 84443; 85025

== ENCOUNTER 2021-01-22 11:29 | Outpatient (RCR) | payer OTHER, SELFPAY ==
[2020-12-12 10:16] VITALS: BMI 44.1
[2021-01-08 12:50] LABS: Absolute Lymphocyte Count 1.39 X10^3/uL (0.83-4.51); Absolute Neutrophil Count 3.7 X10^3/uL (2.0-7.7); Basophil# 0.13 X10^3/uL; Basophil% 2.2 % (0-1); Eosinophil# 0.25 X10^3/uL; Eosinophils% 4.2 % (0-5); Hematocrit 44.2 % (40-54); Hemoglobin 12.4 g/dL (13.0-16.5); Lymphocyte # 1.39 X10^3/ul (4.0); Lymphocyte % 23.4 % (19-41); Mean Corp Hgb Conc 28.1 g/dL (32-36); Mean Corpuscular Hgb 22.2 pg (27.0-32.0); Mean Corpuscular Volume 79.1 fL (80-94); Mean Platelet Vol. 10.6 fl (6.2-12.0); Monocyte% 8.4 % (0-10); NRBC Flagged by Analyzer 0 % (0-5); Neutrophil # 3.66 X10^3/uL (2.7-7.7); Neutrophil % 61.6 % (47-70); Platelet Count 105 K/mm3 (150-450); RBC Distribution Width CV 19.6 % (11.6-14.6); RBC Distribution Width SD 53.1 fl (35.1-43.9); Red Blood Count 5.59 M/mm3 (4.6-6.2); White Blood Count 5.9 K/mm3 (4.4-11.0)
[2021-01-08 13:18] LABS: Ferritin 11 ng/mL (26-388)
[2021-01-22 11:55] LABS: Absolute Lymphocyte Count 1.39 X10^3/uL (0.83-4.51); Absolute Neutrophil Count 4.4 X10^3/uL (2.0-7.7); Basophil# 0.13 X10^3/uL; Basophil% 1.9 % (0-1); Eosinophil# 0.32 X10^3/uL; Eosinophils% 4.7 % (0-5); Hematocrit 46.1 % (40-54); Hemoglobin 12.7 g/dL (13.0-16.5); Lymphocyte # 1.39 X10^3/ul (0.83-4.51); Lymphocyte % 20.4 % (19-41); Mean Corp Hgb Conc 27.5 g/dL (32-36); Mean Platelet Vol. 10.2 fl (6.2-12.0); Monocyte# 0.54 X10^3/uL; Monocyte% 7.9 % (0-10); NRBC Flagged by Analyzer 0 % (0-5); Neutrophil # 4.43 X10^3/uL (2.7-7.7); Neutrophil % 64.8 % (47-70); POSITIVE MORPHOLOGY YES; Platelet Count 328 K/mm3 (150-450); RBC Distribution Width CV 20.4 % (11.6-14.6); RBC Distribution Width SD 57.5 fl (35.1-43.9); Red Blood Count 5.76 M/mm3 (4.6-6.2); White Blood Count 6.8 K/mm3 (4.4-11.0)
[2021-01-22 11:56] LABS: Differential Indicated SCAN CRITERIA MET
[2021-01-22 12:15] LABS: Ferritin 15 ng/mL (26-388)
[2021-01-22 12:54] LABS: Anisocytosis 1+
== END 2021-01-22 18:00 | disposition home or self-care (01) ==
LOC: LAB 11:29
PROVIDERS: Family Provider Family Medicine; PCP Family Medicine; Referring Provider Internal Medicine Hematology & Oncology; Visit Provider Internal Medicine Hematology & Oncology
DX: D75.1 Secondary polycythemia (principal); D50.9 Iron deficiency anemia, unspecified
CPT/HCPCS: 36415; 82728; 85025

== ENCOUNTER 2021-02-19 12:38 | Outpatient (RCR) | payer OTHER, SELFPAY ==
[2021-02-05 15:37] LABS: Absolute Lymphocyte Count 1.76 X10^3/uL (0.83-4.51); Basophil# 0.12 X10^3/uL; Basophil% 1.5 % (0-1); Eosinophils% 3.8 % (0-5); Hematocrit 43.6 % (40-54); Hemoglobin 12.7 g/dL (13.0-16.5); Lymphocyte # 1.76 X10^3/ul (0.83-4.51); Lymphocyte % 22.3 % (19-41); Mean Corp Hgb Conc 29.1 g/dL (32-36); Mean Corpuscular Hgb 23.9 pg (27.0-32.0); Mean Corpuscular Volume 82.1 fL (80-94); Mean Platelet Vol. 10.4 fl (6.2-12.0); Monocyte# 0.66 X10^3/uL; Monocyte% 8.3 % (0-10); NRBC Flagged by Analyzer 0 % (0-5); Neutrophil # 5.04 X10^3/uL (2.7-7.7); Neutrophil % 63.7 % (47-70); POSITIVE MORPHOLOGY YES; Platelet Count 189 K/mm3 (150-450); RBC Distribution Width CV 20.8 % (11.6-14.6); Red Blood Count 5.31 M/mm3 (4.6-6.2); White Blood Count 7.9 K/mm3 (4.4-11.0)
[2021-02-05 15:41] LABS: Differential Indicated SCAN CRITERIA MET
[2021-02-05 16:03] LABS: Differential Comment SCANNED
[2021-02-05 16:30] LABS: Ferritin 19 ng/mL (26-388)
[2021-02-19 13:37] LABS: Absolute Lymphocyte Count 1.56 X10^3/uL (0.83-4.51); Absolute Neutrophil Count 4.6 X10^3/uL (2.0-7.7); Basophil% 1.4 % (0-1); Eosinophil# 0.34 X10^3/uL; Eosinophils% 4.8 % (0-5); Hematocrit 42.4 % (40-54); Hemoglobin 12.8 g/dL (13.0-16.5); Lymphocyte # 1.56 X10^3/ul (0.83-4.51); Lymphocyte % 21.8 % (19-41); Mean Corp Hgb Conc 30.2 g/dL (32-36); Mean Corpuscular Hgb 25.1 pg (27.0-32.0); Mean Corpuscular Volume 83.3 fL (80-94); Mean Platelet Vol. 10.4 fl (6.2-12.0); NRBC Flagged by Analyzer 0 % (0-5); Neutrophil # 4.62 X10^3/uL (2.7-7.7); Neutrophil % 64.6 % (47-70); POSITIVE MORPHOLOGY YES; Platelet Count 209 K/mm3 (150-450); RBC Distribution Width CV 20.1 % (11.6-14.6); Red Blood Count 5.09 M/mm3 (4.6-6.2); White Blood Count 7.2 K/mm3 (4.4-11.0)
[2021-02-19 13:51] LABS: Differential Indicated SCAN CRITERIA MET
[2021-02-19 13:59] LABS: Anisocytosis 2+
[2021-02-19 14:12] LABS: Ferritin 23 ng/mL (26-388)
== END 2021-02-19 18:00 | disposition home or self-care (01) ==
LOC: LAB 12:38
PROVIDERS: Family Provider Family Medicine; PCP Family Medicine; Referring Provider Internal Medicine Hematology & Oncology; Visit Provider Internal Medicine Hematology & Oncology
DX: D75.1 Secondary polycythemia (principal); D50.9 Iron deficiency anemia, unspecified
CPT/HCPCS: 36415; 82728; 85025

== ENCOUNTER → 2021-02-28 11:31 | Outpatient (CLI) | payer OTHER, SELFPAY ==
[2021-02-20 09:03] VITALS: BMI 43.2
[2021-02-28 13:02] LABS: PSA,Total - Annual Screen 0.64 ng/mL (0.00-4.00)
== END ==
PROVIDERS: PCP Family Medicine; Visit Provider Urology
DX: Z12.5 Encounter for screening for malignant neoplasm of prostate (principal)
CPT/HCPCS: 36415; 84153; G0103

== ENCOUNTER 2021-03-19 16:05 | Outpatient (RCR) | payer OTHER, SELFPAY ==
[2021-02-20 09:03] VITALS: BMI 43.2
[2021-03-19 16:45] LABS: Absolute Lymphocyte Count 1.82 X10^3/uL (0.83-4.51); Absolute Neutrophil Count 4.8 X10^3/uL (2.0-7.7); Basophil# 0.09 X10^3/uL; Basophil% 1.2 % (0-1); Eosinophil# 0.28 X10^3/uL; Eosinophils% 3.7 % (0-5); Hematocrit 42.2 % (40-54); Hemoglobin 13.7 g/dL (13.0-16.5); Lymphocyte # 1.82 X10^3/ul (0.83-4.51); Lymphocyte % 24.2 % (19-41); Mean Corp Hgb Conc 32.5 g/dL (32-36); Mean Corpuscular Hgb 27.8 pg (27.0-32.0); Mean Corpuscular Volume 85.6 fL (80-94); Mean Platelet Vol. 10.2 fl (6.2-12.0); Monocyte# 0.51 X10^3/uL; Monocyte% 6.8 % (0-10); NRBC Flagged by Analyzer 0 % (0-5); Neutrophil # 4.81 X10^3/uL (2.7-7.7); Neutrophil % 63.8 % (47-70); Platelet Count 176 K/mm3 (150-450); RBC Distribution Width CV 18.1 % (11.6-14.6); RBC Distribution Width SD 56.5 fl (35.1-43.9); Red Blood Count 4.93 M/mm3 (4.6-6.2); White Blood Count 7.5 K/mm3 (4.4-11.0)
[2021-03-19 18:01] LABS: Ferritin 32 ng/mL (26-388)
== END 2021-03-19 18:00 | disposition home or self-care (01) ==
LOC: LAB 16:05
PROVIDERS: Family Provider Family Medicine; PCP Family Medicine; Referring Provider Internal Medicine Hematology & Oncology; Visit Provider Internal Medicine Hematology & Oncology
DX: D75.1 Secondary polycythemia (principal); D50.9 Iron deficiency anemia, unspecified
CPT/HCPCS: 36415; 82728; 85025

== ENCOUNTER 2021-03-21 15:32 | Emergency (ER) | payer OTHER, SELFPAY ==
[2021-03-20 08:56] VITALS: BMI 43.2
[2021-03-21 15:33] VITALS: BP 110/72; PULSE 94; RESP 14; TEMP 36.3; O2SAT 97; BMI 41.8
--- NOTE | 2021-03-21 17:06 | RAD_ITS ---
STUDY: X-RAY - PELVIS AND RIGHT HIP REASON FOR EXAM: Male, 66 years old. pt states right hip pain after standing up wrong TECHNIQUE: 4 views of the pelvis and hip. COMPARISON: Pelvic x-ray dated July 12, 2020 FINDINGS: No visualized fracture or avascular necrosis. Small loose bodies are present in the left hip joint. There is mild to moderate axial narrowing of the bilateral hip joint. Enthesopathy and soft tissue granuloma seen on the right. Degenerative changes are also partially seen in the lower lumbar spine. There is a non-specific bowel gas pattern. Normal visualized soft tissue structures. Normal bilateral iliac wings, sacroiliac joints and visualized sacrum. Normal bilateral superior and inferior pubic rami. Normal pubic symphysis. Normal bilateral ischial tuberosities. RAD/HIP, UNI W/ Pelvis 2-3 Views IMPRESSION: Mild to moderate axial narrowing of the hip joints. Electronically Signed: Wally Nance MD at 17:44 EDT , Service support ,
--- NOTE | 2021-03-21 17:45 | EDS_ITS ---
HPI History of Present Illness Chief Complaint: Lower Extremity Injury Informant: patient Onset/Context/Timing Onset: Today Narrative Narrative: Patient is a 66-year-old male with history of degenerative disc disease and arthritis all over presenting with right hip pain. Patient states his right knee has been buckling for the past few days. When he went to get off his stool he twisted and suddenly felt severe pain in his right hip. The pain does not radiate. He states is not really been able to put weight on his leg or walk since this happened. This was approximately 2 hours prior to arrival. 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 He denies any other complaints at this time. He has no associated numbness or tingling. Denies any trauma or injury. Patient is on Eliquis for history of PE. He did not take anything for pain prior to arrival. 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 Palpitations Polycythemia Precordial chest pain Pulmonary embolism (06/21/18) Restless legs syndrome Right elbow pain Right knee pain Rupture of right biceps tendon Sciatica Scoliosis of thoracic spine Secondary polycythemia Segmental and somatic dysfunction of cervical region Segmental and somatic dysfunction of lumbar region Segmental and somatic dysfunction of thoracic region Shortness of breath Thyroid disease Trochanteric bursitis, left hip Type II diabetes mellitus Home Medications aspirin 81 mg PO DAILY@0800 03/17/16 [History Last Taken 06/21/18 T] hydroxyurea 500 mg capsule 500 mg PO DAILY cap 12/17/18 [History Last Taken Unknown] metformin 1,000 mg tablet 1,000 mg PO BID 10/12/19 [History Last Taken Unknown] apixaban 5 mg tablet 5 mg PO BID 03/05/20 [History Last Taken Unknown] gabapentin 100 mg capsule 100 mg PO TID 05/11/20 [History Last Taken Unknown] levothyroxine 200 mcg tablet 200 mcg PO DAILY tab 05/11/20 [History Last Taken Unknown] levothyroxine 25 mcg capsule 25 mcg PO DAILY 05/11/20 [History Last Taken Unknown] valsartan 80 mg tablet 80 mg PO DAILY #90 tab 07/05/20 [Rx Last Taken Unknown] hydrochlorothiazide 12.5 mg tablet 12.5 mg PO DAILY #90 tab 08/11/20 [Rx Last Taken Unknown] metoprolol succinate 25 mg tablet,extended release 24 hr 25 mg PO QHS #90 tab 10/05/20 [Rx Last Taken Unknown] fluticasone fur. 100 mcg-umeclid 62.5 mcg-vilant 25 mcg inhalat.powder 1 inh INHALATION DAILY #60 ea 01/29/21 [Rx Last Taken Unknown] cholecalciferol (vitamin D3) 25 mcg (1,000 unit) capsule 25 mcg PO DAILY 02/08/21 [History Last Taken Unknown] erythromycin 5 mg/gram (0.5 %) eye ointment 1 applic OPHTHALMIC DAILY PRN 02/08/21 [History Last Taken Unknown] lactobacillus combination no.8 3 billion cell capsule 3,000 mmu cells PO DAILY 02/08/21 [History Last Taken Unknown] multivitamin 1 tab PO DAILY 02/08/21 [History Last Taken Unknown] omega-3 fatty acids 1,000 mg capsule 1,000 mg PO BID 02/08/21 [History Last Taken Unknown] zinc 50 mg tablet 50 mg PO DAILY 02/08/21 [History Last Taken Unknown] furosemide 40 mg tablet 40 mg PO DAILY #90 tab 03/12/21 [Rx Last Taken Unknown] Allergy/AdvReac Type Severity Reaction Status Date / Time theophylline Allergy Unknown Verified 03/21/21 15:35 Family History Mother CAD (coronary artery disease) Surgical History H/O lithotripsy History of coronary artery stent placement (05/24/11) History of left heart catheterization (06/19/18) History of partial nephrectomy History of tonsillectomy Hx of cataract surgery L eye surgery partial nephrectomy for renal cell cancer Social History Smoking Status: Former smoker quit date: 09/29/84 pack-years: 17 how long ago did patient quit smokin, 1.5/d second hand exposure: Yes alcohol intake: never substance use type: does not use ROS ROS ED Constitutional Constitutional ED: Denies chills or fever(s) Eyes Eyes: Denies change in vision ENT ENT ED: Denies sore throat Cardiovascular Cardiovascular: Denies chest pain or palpitations Respiratory/Chest Respiratory/Chest: Denies cough or dyspnea Gastrointestinal Gastrointestinal: Denies abdominal pain, nausea or vomiting Genitourinary Genitourinary ED: Denies dysuria Musculoskeletal Musculoskeletal: Reports other Details: right hip pain ; Denies myalgias Integumentary Denies Abrasions or rash Neurologic Neurologic: Denies headache(s) or weakness Psychiatric Psychiatric: Denies depression EXAM Physical Exam Const Vital Signs: 03/21/21 15:33 03/21/21 20:02 Temperature 97.4 F L Temperature Source Temporal Pulse Rate 94 81 Respiratory Rate 14 16 Blood Pressure 110/72 133/67 H Blood Pressure Mean 84 Pulse Ox 97 99 Oxygen Delivery Method Room Air Positive well nourished and well developed General Appearance ED: well developed HEENT Reports head/scalp atraumatic and hearing grossly normal bilaterally normocephalic and atraumatic; Negative for Thomas's sign, raccoon eyes or scalp tenderness Nose: no nasal discharge Mouth ED: Yes other Mouth: other Other Details: No Malocclusion Eyes PERRL Neck full ROM Thyroid: Negative for tender Chest Wall inspection of chest normal and palpation of chest normal Chest: Negative for crepitus Resp normal respiratory effort, no retractions and clear to auscultation bilaterally Cardio regular rate and regular rhythm Jugular Venous Distention: Negative for JVD GI non-tender and non-distended Palpation: soft; Negative for guarding or rebound tenderness present Back/Spine Cervical Spine: Negative for cervical spine tenderness Thoracic Spine / Upper Back: Negative for thoracic spinal tenderness Lumbar Spine / Lower Back: Negative for lumbar spinal tenderness Extremity normal to inspection and full ROM Extremity Narrative: pelvis stable, Tenderness palpation with logroll to the right greater trochanter. No obvious deformity of the right lower extremity. 2+ bilateral PT pulses Neuro oriented x3, moves all extremities and no sensory deficits noted Sensorium / Orientation: alert Motor Exam: strength 5/5 throughout Psych mental status grossly normal Skin no wounds Rashes: no rashes Trauma: Negative for abrasion MDM MDM MDM Narrative Medical decision making narrative: Patient is given Tylenol for pain. X-ray shows mild to moderate axial narrowing of the hip joints. Given his referred pain to his greater trochanter area I am concerned for occult fracture. CT obtained which does not show any acute fracture but does show osteoarthritis/degenerative joint disease of the right hip. Patient is able to ambulate in the ER. He will follow-up with pain management, Dr. Dey, he is also referred to orthopedics. Patient is counseled on signs and symptoms requiring return to the emergency room. Patient verbalizes agreement and understand this plan. Patient discharged home in stable and improved condition. Radiography Diagnostic Testing: Radiology Impression Hip/Pelvis X-Ray 03/21/21 17:06 IMPRESSION: Mild to moderate axial narrowing of the hip joints. Electronically Signed: Wally Nance MD at 17:44 EDT , Service support , Lower Extremity CT 03/21/21 17:54 IMPRESSION: 1. Osteoarthritis/DJD of the right hip joint. 2. There is no demonstrated fracture Electronically Signed: Wally Nance MD at 19:04 EDT , Service support , Discharge Plan Triage Chief Complaint: Lower Extremity Injury ED Provider: Fatimah Maynard Dx/Rx/DC Orders Clinical Impression: Acute pain of right hip Instructions: ED Hip Strain Prescriptions: No Action gabapentin 100 mg capsule 100 mg PO TID RF: 0 metformin 1,000 mg tablet 1,000 mg PO BID RF: 0 levothyroxine 25 mcg capsule 25 mcg capsule 25 mcg PO DAILY RF: 0 erythromycin 5 mg/gram (0.5 %) ointment 1 applic OPHTHALMIC DAILY PRN (Reason: Dry Eyes) RF: 0 Adult Probiotic 3 billion cell capsule 3,000 mmu cells PO DAILY RF: 0 omega-3 fatty acids [Fish Oil Concentrate] 1,000 mg capsule 1,000 mg PO BID RF: 0 cholecalciferol (vitamin D3) 25 mcg (1,000 unit) capsule 25 mcg PO DAILY RF: 0 zinc 50 mg tablet 50 mg PO DAILY RF: 0 multivitamin Tablet 1 tab PO DAILY RF: 0 aspirin 81 MG tablet,chewable 81 mg PO DAILY@0800 RF: 0 levothyroxine 200 mcg tablet 200 mcg PO DAILY RF: 0 hydroxyurea 500 mg capsule 500 mg PO DAILY RF: 0 apixaban 5 mg tablet 5 mg PO BID RF: 0 valsartan 80 mg tablet 80 mg PO DAILY Qty: 90 RF: 3 hydrochlorothiazide 12.5 mg tablet 12.5 mg PO DAILY Qty: 90 RF: 3 metoprolol succinate 25 mg tablet extended release 24 hr 25 mg PO QHS Qty: 90 RF: 3 Trelegy Ellipta 100-62.5-25 mcg blister with device 1 inh inhalation DAILY Qty: 60 RF: 5 furosemide 40 mg tablet 40 mg PO DAILY Qty: 90 RF: 3 Primary Care Provider: Sebastien Stahl Referrals: Phuc Rodrigues DO [STAFF PHYSICIAN] - Sebastien Stahl MD [Primary Care Provider] - Activity Restrictions/Additional Instructions: Take Tylenol as needed for pain. Follow-up with orthopedist for further evaluation of your hip to see if there is any further intervention they can do to help with your pain. Disposition Disposition: Home, Self Care Discharge Date/Time: 03/21/21 20:02
--- NOTE | 2021-03-21 17:54 | CT_ITS ---
STUDY: CT RIGHT HIP WITHOUT CONTRAST REASON FOR EXAM: Male, 66 years old. Acute right hip pain RADIATION DOSAGE (If Supplied By Facility): CTDIvol = ( 29.08 ) mGy, DLP = ( 954.44 ) mGycm Individualized dose optimization techniques were used for this CT. ? TECHNIQUE: Transaxial CT imaging of the right hip was performed. Coronal and sagittal images were reformatted. COMPARISON: Pelvic x-ray dated MARCH 21, 2021 FINDINGS: No fracture is present. Mild to moderate axial narrowing and moderate cortical osteophytic changes are present in the right hip joint. Partial bony fusion across the right SI joint noted. Mild enthesopathy of the greater trochanter, hamstring tendon insertion site, and superior iliac wing noted. No aggressive process is present. Subchondral cystic changes are present in the acetabular roof. The muscles are unremarkable. Normal visualized superior and inferior pubic rami. There is a non-specific bowel gas pattern. Normal visualized soft tissue structures. Mild degenerative changes are seen in the lower lumbar spine. CT/Extremity Lower without Contra IMPRESSION: 1. Osteoarthritis/DJD of the right hip joint. 2. There is no demonstrated fracture Electronically Signed: Wally Nance MD at 19:04 EDT , Service support ,
[2021-03-21] MEDS: Acetaminophen 500 MG Tablet 1000 MG PO (18:01)
[2021-03-21 20:02] VITALS: BP 133/67; PULSE 81; RESP 16; O2SAT 99
== END 2021-03-21 20:02 | disposition home or self-care (01) ==
PROVIDERS: Emergency Provider Emergency Medicine; PCP Family Medicine
DX: M25.551 Pain in right hip (principal); E66.9 Obesity, unspecified; I25.10 Atherosclerotic heart disease of native coronary artery without angina pectoris; E03.9 Hypothyroidism, unspecified; E11.9 Type 2 diabetes mellitus without complications; G47.33 Obstructive sleep apnea (adult) (pediatric); I10 Essential (primary) hypertension; J44.9 Chronic obstructive pulmonary disease, unspecified; Z87.891 Personal history of nicotine dependence; Z86.711 Personal history of pulmonary embolism; Z85.528 Personal history of 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neoplasm of kidney; Z79.899 Other long term (current) 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; Z79.84 Long term (current) use of oral hypoglycemic drugs; Z79.82 Long term (current) use of aspirin; Z79.01 Long term (current) use of anticoagulants
CPT/HCPCS: 73502; 73700; 99283

== ENCOUNTER → 2021-03-26 12:03 | Outpatient (CLI) | payer OTHER, SELFPAY ==
[2021-03-21 15:33] VITALS: BMI 41.8
[2021-03-26 13:47] LABS: AST(SGOT) 43 U/L (15-37); Alanine Aminotransfer ALT/SGPT 71 U/L (16-61); Albumin, Serum 3.6 g/dL (3.2-5.0); Alkaline Phosphatase 91 U/L (45-117); Anion Gap 9 (5-15); BUN 21 mg/dL (7-18); BUN/Creat Ratio 17.6 RATIO (10-20); Calcium,Total 9.1 mg/dL (8.5-10.1); Chloride 101 mmol/L (98-107); Creatinine, Serum 1.19 mg/dL (0.70-1.30); EST Glomerular Filtration Rate 65 mL/min (>60); Est Glom Filt Rate - Afr Amer 78 mL/min (>60); Globulin 3.7 g/dL (2.2-4.2); Glucose 311 mg/dL (74-106); Potassium 3.7 mmol/L (3.5-5.1); Protein, Total 7.3 g/dL (6.4-8.2); Sodium Level 137 mmol/L (136-145); Thyroid Stim Hormone (TSH) 0.88 uIU/mL (0.358-3.74)
== END ==
PROVIDERS: PCP Family Medicine; Visit Provider Family Medicine
DX: I10 Essential (primary) hypertension (principal); E11.65 Type 2 diabetes mellitus with hyperglycemia; D75.1 Secondary polycythemia; E55.9 Vitamin D deficiency, unspecified
CPT/HCPCS: 36415; 80053; 82306; 84443

== ENCOUNTER 2021-04-16 11:29 | Outpatient (RCR) | payer OTHER, SELFPAY ==
[2021-04-16 12:41] LABS: Absolute Neutrophil Count 4.4 X10^3/uL (2.0-7.7); Basophil# 0.09 X10^3/uL; Basophil% 1.3 % (0-1); Eosinophil# 0.27 X10^3/uL; Eosinophils% 3.8 % (0-5); Hematocrit 43.3 % (40-54); Hemoglobin 14.2 g/dL (13.0-16.5); Lymphocyte % 23.9 % (19-41); Mean Corp Hgb Conc 32.8 g/dL (32-36); Mean Corpuscular Hgb 29.2 pg (27.0-32.0); Mean Corpuscular Volume 88.9 fL (80-94); Mean Platelet Vol. 10.5 fl (6.2-12.0); Monocyte# 0.62 X10^3/uL; Monocyte% 8.7 % (0-10); NRBC Flagged by Analyzer 0 % (0-5); Neutrophil # 4.38 X10^3/uL (2.7-7.7); Neutrophil % 61.7 % (47-70); Platelet Count 188 K/mm3 (150-450); RBC Distribution Width CV 15.9 % (11.6-14.6); RBC Distribution Width SD 51.6 fl (35.1-43.9); Red Blood Count 4.87 M/mm3 (4.6-6.2); White Blood Count 7.1 K/mm3 (4.4-11.0)
[2021-04-16 13:24] LABS: Ferritin 36 ng/mL (26-388)
== END 2021-04-16 18:00 | disposition home or self-care (01) ==
LOC: LAB 11:29
PROVIDERS: Family Provider Family Medicine; PCP Family Medicine; Referring Provider Internal Medicine Hematology & Oncology; Visit Provider Internal Medicine Hematology & Oncology
DX: D75.1 Secondary polycythemia (principal); D50.9 Iron deficiency anemia, unspecified
CPT/HCPCS: 36415; 82728; 85025

== ENCOUNTER 2021-05-14 13:00 | Outpatient (RCR) | payer OTHER, SELFPAY ==
[2021-04-26 10:02] VITALS: BMI 41.8
[2021-04-30 15:24] LABS: Absolute Lymphocyte Count 2.03 X10^3/uL (0.83-4.51); Absolute Neutrophil Count 4.5 X10^3/uL (2.0-7.7); Basophil# 0.12 X10^3/uL; Basophil% 1.6 % (0-1); Eosinophil# 0.29 X10^3/uL; Eosinophils% 3.8 % (0-5); Hematocrit 43.9 % (40-54); Hemoglobin 14.5 g/dL (13.0-16.5); Lymphocyte # 2.03 X10^3/ul (0.83-4.51); Lymphocyte % 26.7 % (19-41); Mean Corpuscular Hgb 29.5 pg (27.0-32.0); Mean Corpuscular Volume 89.2 fL (80-94); Mean Platelet Vol. 10.7 fl (6.2-12.0); Monocyte# 0.62 X10^3/uL; Monocyte% 8.1 % (0-10); NRBC Flagged by Analyzer 0 % (0-5); Neutrophil # 4.52 X10^3/uL (2.7-7.7); Neutrophil % 59.4 % (47-70); Platelet Count 207 K/mm3 (150-450); RBC Distribution Width CV 15.7 % (11.6-14.6); RBC Distribution Width SD 50.9 fl (35.1-43.9); Red Blood Count 4.92 M/mm3 (4.6-6.2); White Blood Count 7.6 K/mm3 (4.4-11.0)
[2021-04-30 15:58] LABS: Ferritin 41 ng/mL (26-388)
[2021-05-14 13:50] LABS: Absolute Lymphocyte Count 1.81 X10^3/uL (0.83-4.51); Absolute Neutrophil Count 4.3 X10^3/uL (2.0-7.7); Basophil# 0.12 X10^3/uL; Basophil% 1.7 % (0-1); Eosinophil# 0.24 X10^3/uL; Eosinophils% 3.4 % (0-5); Hematocrit 43.6 % (40-54); Hemoglobin 14.8 g/dL (13.0-16.5); Lymphocyte # 1.81 X10^3/ul (0.83-4.51); Lymphocyte % 25.5 % (19-41); Mean Corp Hgb Conc 33.9 g/dL (32-36); Mean Corpuscular Hgb 31.1 pg (27.0-32.0); Mean Corpuscular Volume 91.6 fL (80-94); Mean Platelet Vol. 10.3 fl (6.2-12.0); Monocyte# 0.59 X10^3/uL; Monocyte% 8.3 % (0-10); NRBC Flagged by Analyzer 0 % (0-5); Neutrophil % 60.7 % (47-70); Platelet Count 200 K/mm3 (150-450); RBC Distribution Width CV 14.8 % (11.6-14.6); RBC Distribution Width SD 49.6 fl (35.1-43.9); Red Blood Count 4.76 M/mm3 (4.6-6.2); White Blood Count 7.1 K/mm3 (4.4-11.0)
[2021-05-14 14:28] LABS: Ferritin 38 ng/mL (26-388)
== END 2021-05-14 18:00 | disposition home or self-care (01) ==
LOC: LAB 13:00
PROVIDERS: Family Provider Family Medicine; PCP Internal Medicine; Referring Provider Internal Medicine Hematology & Oncology; Visit Provider Internal Medicine Hematology & Oncology
DX: D75.1 Secondary polycythemia (principal); D50.9 Iron deficiency anemia, unspecified
CPT/HCPCS: 36415; 82728; 85025

== ENCOUNTER 2021-06-12 09:31 | Outpatient (RCR) | payer OTHER, SELFPAY ==
[2021-05-29 21:46] VITALS: BMI 41.8
[2021-06-12 10:01] LABS: Absolute Lymphocyte Count 1.58 X10^3/uL (0.83-4.51); Absolute Neutrophil Count 3.2 X10^3/uL (2.0-7.7); Basophil% 1.8 % (0-1); Eosinophil# 0.27 X10^3/uL; Eosinophils% 4.8 % (0-5); Hematocrit 41.4 % (40-54); Hemoglobin 13.9 g/dL (13.0-16.5); Lymphocyte # 1.58 X10^3/ul (0.83-4.51); Lymphocyte % 28.1 % (19-41); Mean Corp Hgb Conc 33.6 g/dL (32-36); Mean Corpuscular Hgb 31.8 pg (27.0-32.0); Mean Corpuscular Volume 94.7 fL (80-94); Mean Platelet Vol. 10.1 fl (6.2-12.0); Monocyte# 0.48 X10^3/uL; Monocyte% 8.5 % (0-10); NRBC Flagged by Analyzer 0 % (0-5); Neutrophil # 3.17 X10^3/uL (2.7-7.7); Neutrophil % 56.3 % (47-70); Platelet Count 165 K/mm3 (150-450); RBC Distribution Width CV 13.9 % (11.6-14.6); Red Blood Count 4.37 M/mm3 (4.6-6.2); White Blood Count 5.6 K/mm3 (4.4-11.0)
[2021-06-12 10:43] LABS: Ferritin 55 ng/mL (26-388)
== END 2021-06-12 18:00 | disposition home or self-care (01) ==
LOC: LAB 09:31
PROVIDERS: Family Provider Family Medicine; PCP Internal Medicine; Referring Provider Internal Medicine Hematology & Oncology; Visit Provider Internal Medicine Hematology & Oncology
DX: D75.1 Secondary polycythemia (principal); D50.9 Iron deficiency anemia, unspecified
CPT/HCPCS: 36415; 82728; 85025

== ENCOUNTER → 2021-06-27 12:13 | Outpatient (CLI) | payer OTHER, SELFPAY ==
[2021-06-27 14:06] LABS: Cholesterol 181 mg/dL (200); High Density Lipoprotein 34 mg/dL; Thyroid Stim Hormone (TSH) 0.29 uIU/mL (0.358-3.74); Triglycerides 453 mg/dL
[2021-06-27 16:22] LABS: Free T3 2.5 pg/mL (2.18-3.98); T4 Free Direct 1.38 ng/dL (0.76-1.46)
== END ==
PROVIDERS: PCP Internal Medicine; Visit Provider Internal Medicine
DX: E03.9 Hypothyroidism, unspecified (principal); E11.9 Type 2 diabetes mellitus without complications; E78.5 Hyperlipidemia, unspecified; R06.09 Other forms of dyspnea
CPT/HCPCS: 36415; 80061; 83036; 84439; 84443; 84481

== ENCOUNTER 2021-07-09 13:21 | Outpatient (RCR) | payer OTHER, SELFPAY ==
[2021-06-28 20:27] VITALS: BMI 41.8
[2021-07-09 13:48] LABS: Absolute Lymphocyte Count 1.85 X10^3/uL (0.83-4.51); Absolute Neutrophil Count 4.6 X10^3/uL (2.0-7.7); Basophil# 0.09 X10^3/uL; Basophil% 1.2 % (0-1); Eosinophil# 0.27 X10^3/uL; Eosinophils% 3.6 % (0-5); Hematocrit 41.9 % (40-54); Hemoglobin 14.6 g/dL (13.0-16.5); Lymphocyte # 1.85 X10^3/ul (0.83-4.51); Lymphocyte % 24.9 % (19-41); Mean Corp Hgb Conc 34.8 g/dL (32-36); Mean Corpuscular Hgb 32.5 pg (27.0-32.0); Mean Corpuscular Volume 93.3 fL (80-94); Monocyte# 0.59 X10^3/uL; Monocyte% 7.9 % (0-10); NRBC Flagged by Analyzer 0 % (0-5); Neutrophil % 61.9 % (47-70); Platelet Count 192 K/mm3 (150-450); RBC Distribution Width CV 13.2 % (11.6-14.6); RBC Distribution Width SD 44.7 fl (35.1-43.9); Red Blood Count 4.49 M/mm3 (4.6-6.2); White Blood Count 7.4 K/mm3 (4.4-11.0)
[2021-07-09 14:26] LABS: Ferritin 88 ng/mL (26-388)
== END 2021-07-29 03:44 | disposition home or self-care (01) ==
LOC: LAB 13:21
PROVIDERS: Family Provider Family Medicine; PCP Internal Medicine; Referring Provider Internal Medicine Hematology & Oncology; Visit Provider Internal Medicine Hematology & Oncology
DX: D75.1 Secondary polycythemia (principal); D50.9 Iron deficiency anemia, unspecified
CPT/HCPCS: 36415; 82728; 85025

== ENCOUNTER 2021-08-06 12:21 | Outpatient (RCR) | payer OTHER, SELFPAY ==
[2021-07-29 03:45] VITALS: BMI 41.8
[2021-08-06 14:25] LABS: Absolute Lymphocyte Count 1.99 X10^3/uL (0.83-4.51); Absolute Neutrophil Count 4.3 X10^3/uL (2.0-7.7); Basophil# 0.12 X10^3/uL; Basophil% 1.6 % (0-1); Eosinophil# 0.37 X10^3/uL; Hematocrit 41.2 % (40-54); Hemoglobin 14.4 g/dL (13.0-16.5); Lymphocyte # 1.99 X10^3/ul (0.83-4.51); Mean Corpuscular Hgb 32.5 pg (27.0-32.0); Mean Platelet Vol. 10.7 fl (6.2-12.0); Monocyte% 8.1 % (0-10); NRBC Flagged by Analyzer 0 % (0-5); Neutrophil # 4.28 X10^3/uL (2.7-7.7); Platelet Count 199 K/mm3 (150-450); RBC Distribution Width CV 13.4 % (11.6-14.6); RBC Distribution Width SD 45.4 fl (35.1-43.9); Red Blood Count 4.43 M/mm3 (4.6-6.2); White Blood Count 7.4 K/mm3 (4.4-11.0)
[2021-08-06 14:52] LABS: Ferritin 91 ng/mL (26-388)
== END 2021-08-28 18:00 | disposition home or self-care (01) ==
LOC: LAB 12:21
PROVIDERS: Family Provider Family Medicine; PCP Internal Medicine; Referring Provider Internal Medicine Hematology & Oncology; Visit Provider Internal Medicine Hematology & Oncology
DX: D75.1 Secondary polycythemia (principal); D50.9 Iron deficiency anemia, unspecified
CPT/HCPCS: 36415; 82728; 85025

== ENCOUNTER 2021-09-01 11:19 | Outpatient (CLI) | payer OTHER, SELFPAY ==
[2021-09-01] MEDS: 0.9% Saline Lock 10 ML Syringe IV (11:41)
[2021-09-01 11:47] VITALS: BP 115/71; PULSE 86; RESP 16; TEMP 36.4; O2SAT 97; BMI 38.4
[2021-09-01 12:25] VITALS: BP 108/69; PULSE 87; RESP 16; TEMP 37; O2SAT 99
[2021-09-01 13:25] VITALS: BP 111/60; PULSE 82; RESP 16; TEMP 37; O2SAT 97
== END 2021-09-01 13:35 | disposition home or self-care (01) ==
LOC: MS3OUT 11:19 → MS3 11:20
PROVIDERS: PCP Internal Medicine; Referring Provider Nurse Practitioner Adult Health; Visit Provider Nurse Practitioner Adult Health
DX: Z23 Encounter for immunization (principal); U07.1 COVID-19
CPT/HCPCS: J7050; M0245; Q0245; A4216

== ENCOUNTER → 2021-09-17 12:56 | Outpatient (CLI) | payer OTHER, SELFPAY ==
[2021-09-17 13:59] LABS: Absolute Lymphocyte Count 1.91 X10^3/uL (0.83-4.51); Absolute Neutrophil Count 4.9 X10^3/uL (2.0-7.7); Basophil# 0.11 X10^3/uL; Basophil% 1.4 % (0-1); Eosinophil# 0.23 X10^3/uL; Hematocrit 40.7 % (40-54); Hemoglobin 14.2 g/dL (13.0-16.5); Lymphocyte # 1.91 X10^3/ul (0.83-4.51); Lymphocyte % 24.6 % (19-41); Mean Corp Hgb Conc 34.9 g/dL (32-36); Mean Corpuscular Hgb 32.6 pg (27.0-32.0); Mean Corpuscular Volume 93.3 fL (80-94); Monocyte# 0.59 X10^3/uL; Monocyte% 7.6 % (0-10); NRBC Flagged by Analyzer 0 % (0-5); Neutrophil % 62.9 % (47-70); Platelet Count 219 K/mm3 (150-450); RBC Distribution Width CV 13.5 % (11.6-14.6); RBC Distribution Width SD 45.6 fl (35.1-43.9); Red Blood Count 4.36 M/mm3 (4.6-6.2); White Blood Count 7.8 K/mm3 (4.4-11.0)
[2021-09-17 14:25] LABS: Ferritin 112 ng/mL (26-388)
== END ==
PROVIDERS: PCP Internal Medicine; Visit Provider Internal Medicine
DX: D75.1 Secondary polycythemia (principal)
CPT/HCPCS: 36415; 82728; 85025

== ENCOUNTER 2021-10-15 12:48 | Outpatient (RCR) | payer OTHER, SELFPAY ==
[2021-08-29 02:23] VITALS: BMI 41.8
[2021-10-15 13:28] LABS: Absolute Lymphocyte Count 1.86 X10^3/uL (0.83-4.51); Absolute Neutrophil Count 6.9 X10^3/uL (2.0-7.7); Eosinophil# 0.29 X10^3/uL; Eosinophils% 2.9 % (0-5); Hematocrit 41.6 % (40-54); Hemoglobin 14.5 g/dL (13.0-16.5); Lymphocyte # 1.86 X10^3/ul (0.83-4.51); Lymphocyte % 18.6 % (19-41); Mean Corp Hgb Conc 34.9 g/dL (32-36); Mean Corpuscular Hgb 32.9 pg (27.0-32.0); Mean Corpuscular Volume 94.3 fL (80-94); Mean Platelet Vol. 9.9 fl (6.2-12.0); Monocyte# 0.82 X10^3/uL; Monocyte% 8.2 % (0-10); NRBC Flagged by Analyzer 0 % (0-5); Neutrophil # 6.93 X10^3/uL (2.7-7.7); Neutrophil % 69.1 % (47-70); Platelet Count 228 K/mm3 (150-450); RBC Distribution Width CV 13.5 % (11.6-14.6); Red Blood Count 4.41 M/mm3 (4.6-6.2)
[2021-10-15 14:02] LABS: Vitamin D,25 Hydroxy 30.7 ng/mL
[2021-10-15 14:07] LABS: ALB/GLOB Ratio 0.9 RATIO (0.9-2.4); AST(SGOT) 50 U/L (15-37); Alanine Aminotransfer ALT/SGPT 76 U/L (16-61); Albumin, Serum 3.5 g/dL (3.2-5.0); Alkaline Phosphatase 84 U/L (45-117); Anion Gap 10 (5-15); BUN 24 mg/dL (7-18); BUN/Creat Ratio 19.2 RATIO (10-20); Bilirubin, Direct 0.21 mg/dL (0.00-0.30); Calcium,Total 9.5 mg/dL (8.5-10.1); Chloride 101 mmol/L (98-107); Creatinine, Serum 1.25 mg/dL (0.70-1.30); EST Glomerular Filtration Rate 61 mL/min (>60); Est Glom Filt Rate - Afr Amer 74 mL/min (>60); Ferritin 161 ng/mL (26-388); Free T3 2.3 pg/mL (2.18-3.98); Glucose 199 mg/dL (74-106); Protein, Total 7.5 g/dL (6.4-8.2); Sodium Level 137 mmol/L (136-145); T4 Free Direct 1.47 ng/dL (0.76-1.46)
== END 2021-10-29 18:00 | disposition home or self-care (01) ==
LOC: LAB 12:48
PROVIDERS: Family Provider Family Medicine; PCP Internal Medicine; Referring Provider Internal Medicine Cardiovascular Disease; Visit Provider Internal Medicine Hematology & Oncology
DX: E78.5 Hyperlipidemia, unspecified (principal); E11.9 Type 2 diabetes mellitus without complications; E03.9 Hypothyroidism, unspecified; I10 Essential (primary) hypertension; G47.33 Obstructive sleep apnea (adult) (pediatric)
CPT/HCPCS: 80053; 82248; 82306; 82728; 84439; 84443; 84481; 85025

== ENCOUNTER 2021-11-12 12:37 | Outpatient (RCR) | payer OTHER, SELFPAY ==
[2021-10-29 23:02] VITALS: BMI 41.8
[2021-11-12 13:32] LABS: Absolute Lymphocyte Count 2.18 X10^3/uL (0.83-4.51); Absolute Neutrophil Count 5.3 X10^3/uL (2.0-7.7); Basophil# 0.07 X10^3/uL; Basophil% 0.8 % (0-1); Eosinophil# 0.54 X10^3/uL; Eosinophils% 6.1 % (0-5); Hematocrit 41.1 % (40-54); Lymphocyte # 2.18 X10^3/ul (0.83-4.51); Lymphocyte % 24.5 % (19-41); Mean Corp Hgb Conc 34.1 g/dL (32-36); Mean Corpuscular Hgb 32.5 pg (27.0-32.0); Mean Corpuscular Volume 95.4 fL (80-94); Mean Platelet Vol. 10.4 fl (6.2-12.0); Monocyte# 0.74 X10^3/uL; Monocyte% 8.3 % (0-10); NRBC Flagged by Analyzer 0 % (0-5); Neutrophil % 59.7 % (47-70); Platelet Count 200 K/mm3 (150-450); RBC Distribution Width CV 13.7 % (11.6-14.6); RBC Distribution Width SD 47.8 fl (35.1-43.9); Red Blood Count 4.31 M/mm3 (4.6-6.2); White Blood Count 8.9 K/mm3 (4.4-11.0)
[2021-11-12 14:06] LABS: Ferritin 169 ng/mL (26-388)
== END 2021-11-12 18:00 | disposition home or self-care (01) ==
LOC: LAB 12:37
PROVIDERS: Family Provider Family Medicine; PCP Internal Medicine; Referring Provider Internal Medicine Cardiovascular Disease; Visit Provider Internal Medicine Hematology & Oncology
DX: D75.1 Secondary polycythemia (principal); D50.0 Iron deficiency anemia secondary to blood loss (chronic)
CPT/HCPCS: 36415; 82728; 85025

== ENCOUNTER 2022-01-07 13:13 | Outpatient (RCR) | payer OTHER, SELFPAY ==
[2021-11-27 10:04] VITALS: BMI 41.8
[2022-01-07 14:18] LABS: Absolute Lymphocyte Count 2.05 X10^3/uL (0.83-4.51); Absolute Neutrophil Count 6.2 X10^3/uL (2.0-7.7); Basophil% 1.1 % (0-1); Eosinophils% 3.2 % (0-5); Hemoglobin 15.4 g/dL (13.0-16.5); Lymphocyte # 2.05 X10^3/ul (0.83-4.51); Mean Corpuscular Volume 94.4 fL (80-94); Monocyte% 7.5 % (0-10); NRBC Flagged by Analyzer 0 % (0-5); Neutrophil # 6.15 X10^3/uL (2.7-7.7); Neutrophil % 65.9 % (47-70); Platelet Count 204 K/mm3 (150-450); RBC Distribution Width SD 45.1 fl (35.1-43.9); Red Blood Count 4.66 M/mm3 (4.6-6.2); White Blood Count 9.3 K/mm3 (4.4-11.0)
[2022-01-07 14:58] LABS: Ferritin 188 ng/mL (26-388)
== END 2022-01-07 18:00 | disposition home or self-care (01) ==
LOC: LAB 13:13
PROVIDERS: Family Provider Family Medicine; PCP Internal Medicine; Referring Provider Internal Medicine Cardiovascular Disease; Visit Provider Internal Medicine Hematology & Oncology
DX: D69.6 Thrombocytopenia, unspecified (principal); D75.1 Secondary polycythemia; D50.0 Iron deficiency anemia secondary to blood loss (chronic)
CPT/HCPCS: 36415; 82728; 85025

== ENCOUNTER 2022-02-04 14:32 | Outpatient (RCR) | payer OTHER, SELFPAY ==
[2022-01-27 02:58] VITALS: BMI 41.8
[2022-02-04 14:46] LABS: Absolute Lymphocyte Count 2.06 X10^3/uL (0.83-4.51); Absolute Neutrophil Count 5.3 X10^3/uL (2.0-7.7); Basophil# 0.13 X10^3/uL; Basophil% 1.5 % (0-1); Eosinophil# 0.32 X10^3/uL; Eosinophils% 3.8 % (0-5); Hematocrit 42.4 % (40-54); Lymphocyte # 2.06 X10^3/ul (0.83-4.51); Lymphocyte % 24.2 % (19-41); Mean Corp Hgb Conc 35.4 g/dL (32-36); Mean Corpuscular Hgb 33.6 pg (27.0-32.0); Mean Corpuscular Volume 95.1 fL (80-94); Mean Platelet Vol. 9.8 fl (6.2-12.0); Monocyte% 8.2 % (0-10); NRBC Flagged by Analyzer 0 % (0-5); Neutrophil # 5.26 X10^3/uL (2.7-7.7); Neutrophil % 61.7 % (47-70); Platelet Count 204 K/mm3 (150-450); RBC Distribution Width CV 13.2 % (11.6-14.6); RBC Distribution Width SD 46.1 fl (35.1-43.9); Red Blood Count 4.46 M/mm3 (4.6-6.2); White Blood Count 8.5 K/mm3 (4.4-11.0)
[2022-02-04 15:11] LABS: Ferritin 117 ng/mL (26-388)
== END 2022-02-04 18:00 | disposition home or self-care (01) ==
LOC: LAB 14:32
PROVIDERS: Family Provider Family Medicine; PCP Internal Medicine; Referring Provider Internal Medicine Hematology & Oncology; Visit Provider Internal Medicine Hematology & Oncology
DX: D69.6 Thrombocytopenia, unspecified (principal); D75.1 Secondary polycythemia; D50.0 Iron deficiency anemia secondary to blood loss (chronic)
CPT/HCPCS: 36415; 82728; 85025

== ENCOUNTER 2022-03-04 14:35 | Outpatient (RCR) | payer OTHER, SELFPAY ==
[2022-02-26 20:41] VITALS: BMI 41.8
[2022-03-04 14:50] LABS: Absolute Lymphocyte Count 1.96 X10^3/uL (0.83-4.51); Absolute Neutrophil Count 4.9 X10^3/uL (2.0-7.7); Basophil% 1.3 % (0-1); Eosinophil# 0.29 X10^3/uL; Eosinophils% 3.7 % (0-5); Hemoglobin 14.7 g/dL (13.0-16.5); Lymphocyte # 1.96 X10^3/ul (0.83-4.51); Mean Corpuscular Hgb 33.7 pg (27.0-32.0); Mean Corpuscular Volume 96.3 fL (80-94); Mean Platelet Vol. 10.1 fl (6.2-12.0); Monocyte# 0.58 X10^3/uL; Monocyte% 7.4 % (0-10); NRBC Flagged by Analyzer 0 % (0-5); Neutrophil # 4.87 X10^3/uL (2.7-7.7); Neutrophil % 62.2 % (47-70); Platelet Count 186 K/mm3 (150-450); RBC Distribution Width CV 12.8 % (11.6-14.6); RBC Distribution Width SD 45.2 fl (35.1-43.9); Red Blood Count 4.36 M/mm3 (4.6-6.2); White Blood Count 7.8 K/mm3 (4.4-11.0)
[2022-03-04 16:05] LABS: Ferritin 158 ng/mL (26-388)
== END 2022-04-28 02:19 | disposition home or self-care (01) ==
LOC: LAB 14:35
PROVIDERS: Family Provider Family Medicine; PCP Internal Medicine; Referring Provider Internal Medicine Hematology & Oncology; Visit Provider Internal Medicine Hematology & Oncology
DX: D69.6 Thrombocytopenia, unspecified (principal); D75.1 Secondary polycythemia; D50.0 Iron deficiency anemia secondary to blood loss (chronic)
CPT/HCPCS: 82728; 85025

== ENCOUNTER 2022-04-03 15:12 | Outpatient (RCR) | payer MEDICARE, BC, SELFPAY ==
[2022-04-03 15:18] LABS: Absolute Lymphocyte Count 1.84 X10^3/uL (0.83-4.51); Absolute Neutrophil Count 4.3 X10^3/uL (2.0-7.7); Basophil# 0.11 X10^3/uL; Basophil% 1.5 % (0-1); Eosinophils% 4.2 % (0-5); Hematocrit 41.9 % (40-54); Hemoglobin 14.6 g/dL (13.0-16.5); Lymphocyte # 1.84 X10^3/ul (0.83-4.51); Lymphocyte % 25.8 % (19-41); Mean Corp Hgb Conc 34.8 g/dL (32-36); Mean Corpuscular Volume 94.8 fL (80-94); Mean Platelet Vol. 9.8 fl (6.2-12.0); Monocyte# 0.59 X10^3/uL; Monocyte% 8.3 % (0-10); NRBC Flagged by Analyzer 0 % (0-5); Neutrophil # 4.27 X10^3/uL (2.7-7.7); Neutrophil % 59.8 % (47-70); Platelet Count 186 K/mm3 (150-450); RBC Distribution Width SD 44.9 fl (35.1-43.9); Red Blood Count 4.42 M/mm3 (4.6-6.2); White Blood Count 7.1 K/mm3 (4.4-11.0)
[2022-04-03 15:53] LABS: Ferritin 188 ng/mL (26-388)
== END 2022-04-28 02:20 | disposition home or self-care (01) ==
LOC: LAB 15:12
PROVIDERS: PCP Internal Medicine; Visit Provider Internal Medicine Hematology & Oncology
DX: D69.6 Thrombocytopenia, unspecified (principal); D75.1 Secondary polycythemia; D50.0 Iron deficiency anemia secondary to blood loss (chronic)
CPT/HCPCS: 36415; 82728; 85025

== ENCOUNTER 2022-05-03 10:39 | Outpatient (RCR) | payer MEDICARE, BC, SELFPAY ==
[2022-04-28 02:19] VITALS: BMI 41.8
[2022-05-03 11:17] LABS: Absolute Lymphocyte Count 1.75 X10^3/uL (0.83-4.51); Absolute Neutrophil Count 3.6 X10^3/uL (2.0-7.7); Basophil# 0.13 X10^3/uL; Eosinophil# 0.38 X10^3/uL; Eosinophils% 5.9 % (0-5); Hematocrit 41.3 % (40-54); Hemoglobin 14.6 g/dL (13.0-16.5); Lymphocyte # 1.75 X10^3/ul (0.83-4.51); Lymphocyte % 27.3 % (19-41); Mean Corp Hgb Conc 35.4 g/dL (32-36); Mean Corpuscular Hgb 34.1 pg (27.0-32.0); Mean Corpuscular Volume 96.5 fL (80-94); Mean Platelet Vol. 10.1 fl (6.2-12.0); Monocyte# 0.54 X10^3/uL; Monocyte% 8.4 % (0-10); NRBC Flagged by Analyzer 0 % (0-5); Neutrophil # 3.56 X10^3/uL (2.7-7.7); Neutrophil % 55.8 % (47-70); Platelet Count 169 K/mm3 (150-450); RBC Distribution Width CV 12.9 % (11.6-14.6); RBC Distribution Width SD 45.8 fl (35.1-43.9); Red Blood Count 4.28 M/mm3 (4.6-6.2); White Blood Count 6.4 K/mm3 (4.4-11.0)
[2022-05-03 11:34] LABS: Hemoglobin A1c 10.1 % (3.8-5.6)
[2022-05-03 12:06] LABS: AST(SGOT) 40 U/L (15-37); Alanine Aminotransfer ALT/SGPT 77 U/L (16-61); Albumin, Serum 3.5 g/dL (3.2-5.0); Alkaline Phosphatase 129 U/L (45-117); Anion Gap 6 (5-15); BUN 18 mg/dL (7-18); BUN/Creat Ratio 15.9 RATIO (10-20); Calcium,Total 8.9 mg/dL (8.5-10.1); Chloride 102 mmol/L (98-107); Cholesterol 191 mg/dL (200); Creatinine, Serum 1.13 mg/dL (0.70-1.30); EST Glomerular Filtration Rate 68 mL/min (>60); Est Glom Filt Rate - Afr Amer 83 mL/min (>60); Ferritin 174 ng/mL (26-388); Free T3 2.5 pg/mL (2.18-3.98); Globulin 3.6 g/dL (2.2-4.2); Glucose 338 mg/dL (74-106); High Density Lipoprotein 28 mg/dL; Potassium 4.1 mmol/L (3.5-5.1); Protein, Total 7.1 g/dL (6.4-8.2); Sodium Level 136 mmol/L (136-145); T4 Free Direct 1.61 ng/dL (0.76-1.46); Thyroid Stim Hormone (TSH) 0.21 uIU/mL (0.358-3.74); Triglycerides 562 mg/dL
== END 2022-05-03 18:00 | disposition home or self-care (01) ==
LOC: LAB 10:39
PROVIDERS: Family Provider Family Medicine; PCP Internal Medicine; Referring Provider Internal Medicine Hematology & Oncology; Visit Provider Internal Medicine Hematology & Oncology
DX: D69.6 Thrombocytopenia, unspecified (principal); D75.1 Secondary polycythemia; D50.0 Iron deficiency anemia secondary to blood loss (chronic); E03.9 Hypothyroidism, unspecified; E78.5 Hyperlipidemia, unspecified; J44.9 Chronic obstructive pulmonary disease, unspecified; G47.33 Obstructive sleep apnea (adult) (pediatric); I10 Essential (primary) hypertension; E11.9 Type 2 diabetes mellitus without complications; Z12.5 Encounter for screening for malignant neoplasm of prostate
CPT/HCPCS: 36415; 80053; 80061; 82728; 83036; 84153; 84439; 84443; 84481; 85025; G0103

== ENCOUNTER → 2022-05-03 | Outpatient (CLI) | payer MEDICARE, BC, SELFPAY ==
--- NOTE | 2022-05-03 10:20 | RAD_ITS ---
INDICATION: Neck pain EXAMINATION/TECHNIQUE: X-RAY - XR Spine Cervical 2 or 3 Views COMPARISON: 03/18/2018. FINDINGS: Limited evaluation of the cervical spine, only up to the level of the C5 vertebral body on visualized. Straightening of alignment of the columns of the cervical spine visualized, no evidence of compression deformity of the cervical vertebral bodies. No evidence of spondylolisthesis is seen. Unremarkable alignment of the lateral masses of C1 with C2. Multilevel degenerative endplate changes seen. Anterior osteophyte formation seen. Decreased intervertebral disc height is visualized at multiple levels suggestive of degenerative disc osteophyte complex and uncovertebral disease. The visualized neck soft tissues are unremarkable. The visualized lung apices are unremarkable. RAD/Cerv Spine 2 or 3 Views IMPRESSION: Extensive degenerative changes of the cervical spine seen, no evidence of acute osseous abnormality. Electronically Signed: Bassem Francis MD at 12:29 EDT ,
== END | disposition home or self-care (01) ==
LOC: RAD 10:06
PROVIDERS: PCP Internal Medicine; Referring Provider Internal Medicine; Visit Provider Internal Medicine
DX: M99.01 Segmental and somatic dysfunction of cervical region (principal); J44.9 Chronic obstructive pulmonary disease, unspecified; D69.6 Thrombocytopenia, unspecified; E11.9 Type 2 diabetes mellitus without complications; D75.1 Secondary polycythemia; D50.0 Iron deficiency anemia secondary to blood loss (chronic); E03.9 Hypothyroidism, unspecified; E78.5 Hyperlipidemia, unspecified; G47.33 Obstructive sleep apnea (adult) (pediatric); I10 Essential (primary) hypertension; Z12.5 Encounter for screening for malignant neoplasm of prostate
CPT/HCPCS: 36415; 72040; 80053; 80061; 82728; 83036; 84153; 84439; 84443; 84481; 85025; G0103

== ENCOUNTER 2022-06-25 09:40 | Outpatient (RCR) | payer MEDICARE, BC, SELFPAY ==
[2022-05-29 22:59] VITALS: BMI 41.8
[2022-06-25 10:02] LABS: Absolute Lymphocyte Count 2.13 X10^3/uL (0.83-4.51); Absolute Neutrophil Count 3.5 X10^3/uL (2.0-7.7); Basophil# 0.09 X10^3/uL; Basophil% 1.3 % (0-1); Eosinophil# 0.36 X10^3/uL; Eosinophils% 5.3 % (0-5); Hematocrit 39.4 % (40-54); Hemoglobin 13.8 g/dL (13.0-16.5); Lymphocyte # 2.13 X10^3/ul (0.83-4.51); Lymphocyte % 31.6 % (19-41); Mean Platelet Vol. 10.1 fl (6.2-12.0); Monocyte# 0.69 X10^3/uL; Monocyte% 10.2 % (0-10); NRBC Flagged by Analyzer 0 % (0-5); Neutrophil # 3.45 X10^3/uL (2.7-7.7); Neutrophil % 51.3 % (47-70); Platelet Count 191 K/mm3 (150-450); RBC Distribution Width CV 13.4 % (11.6-14.6); RBC Distribution Width SD 47.8 fl (35.1-43.9); Red Blood Count 4.06 M/mm3 (4.6-6.2); White Blood Count 6.7 K/mm3 (4.4-11.0)
== END 2022-06-25 18:00 | disposition home or self-care (01) ==
LOC: LAB 09:40
PROVIDERS: Family Provider Family Medicine; PCP Internal Medicine; Referring Provider Internal Medicine Hematology & Oncology; Visit Provider Internal Medicine Hematology & Oncology
DX: D69.6 Thrombocytopenia, unspecified (principal); D75.1 Secondary polycythemia; D50.0 Iron deficiency anemia secondary to blood loss (chronic)
CPT/HCPCS: 36415; 85025

== ENCOUNTER 2022-07-22 10:59 | Outpatient (RCR) | payer MEDICARE, BC, SELFPAY ==
[2022-06-28 21:29] VITALS: BMI 41.8
[2022-07-22 11:17] LABS: Absolute Lymphocyte Count 2.11 X10^3/uL (0.83-4.51); Absolute Neutrophil Count 4.1 X10^3/uL (2.0-7.7); Basophil% 1.4 % (0-1); Eosinophil# 0.33 X10^3/uL; Eosinophils% 4.6 % (0-5); Hematocrit 41.9 % (40-54); Hemoglobin 14.8 g/dL (13.0-16.5); Lymphocyte # 2.11 X10^3/ul (0.83-4.51); Lymphocyte % 29.3 % (19-41); Mean Corp Hgb Conc 35.3 g/dL (32-36); Mean Corpuscular Hgb 34.3 pg (27.0-32.0); Mean Corpuscular Volume 97.2 fL (80-94); Mean Platelet Vol. 9.8 fl (6.2-12.0); Monocyte# 0.52 X10^3/uL; Monocyte% 7.2 % (0-10); NRBC Flagged by Analyzer 0 % (0-5); Neutrophil # 4.12 X10^3/uL (2.7-7.7); Neutrophil % 57.2 % (47-70); Platelet Count 179 K/mm3 (150-450); RBC Distribution Width CV 12.8 % (11.6-14.6); Red Blood Count 4.31 M/mm3 (4.6-6.2); White Blood Count 7.2 K/mm3 (4.4-11.0)
[2022-07-22 13:39] LABS: Ferritin 161 ng/mL (26-388)
== END 2022-07-22 18:00 | disposition home or self-care (01) ==
LOC: LAB 10:59
PROVIDERS: Family Provider Family Medicine; PCP Internal Medicine; Referring Provider Internal Medicine Hematology & Oncology; Visit Provider Internal Medicine Hematology & Oncology
DX: D69.6 Thrombocytopenia, unspecified (principal); D75.1 Secondary polycythemia; D50.0 Iron deficiency anemia secondary to blood loss (chronic)
CPT/HCPCS: 36415; 82728; 85025

== ENCOUNTER 2022-07-23 12:00 | Outpatient (RCR) | payer MEDICARE, BC, SELFPAY ==
--- NOTE | 2022-07-02 12:17 | HP.PTEVAL_ITS ---
Patient's Visit Information DALE CAMPBELL is a 67 year old M referred to Physical Therapy by Dr. Bakari Solis MD with a diagnosis of NECK PAIN AND HIP PAIN. Date of Evaluation: 07/02/22 Physical Therapist: David Godinze PT, Cert MDT, OCS - Visit Plan Frequency: 1-2x /Week Duration: 4 Weeks Plan: PT INTERVETIONS POSTURAL EX'S ,CEVICAL ROM AND HIP ROM ,STRENGTHENING BLE -HIPS,FUNCTIONAL AND FUNCTIONAL STRENGTHNEING - Subjective This 67 y/o male presents to physical therapy for neck pain and back pain. Patient has cervical pain many years with symptoms worsening past ~ 1year. Patient has seen DR York for pain management for several years which patient received injection in hip joints . Pain located right side cervical. Sees chiropractor for hips and back. No MEDICATION. Tried massage to neck . Aggravating sitting ,computer ,driving turning and lifting . Alleviating injection and topical cream. Pain is described as sharp pain . Patient has paresthesia in hands and fingers. Patient does have h/o neuropathy. Patient had PT many years ago which didn't help. Patient has had x-rays of cervical DDD and spurs , and hip mild /mod djd. Patient also seen DR Burnett had bursitis of hips. Constant TENORIO ,dizziness occasional transition, tinnitus/nausea. Symptoms affects sleeping. Pain located groin and and lateral trochanter. Aggravating squatting /kneeling ,stairs and extended walking uses cane or cart when shopping standing < 5mins . Alleviating factors sitting ,rest. Patient symptoms affects QOL and function. SOCAIL: . VOCATION: H - Pain Right Back Pain Intensity (Out of 10): 0 Pain Intensity Range: 10 Bilateral Hip Pain Intensity (Out of 10): 2 Pain Intensity Range: 10 Right Neck Pain Intensity (Out of 10): 3 Pain Intensity Range: 10 Comment: 07/08 PRIOR TO INJECTION - Objective POSTURE: mild forward posture hips knee flexed ,head protruded ,rotated ,scoliosis and right shoulder lower. NEURO: c/o paresthesia hand /fingers ,reflexes C5-6-7 10/01. PALAPTION: tender UT/LEVATOR .greater trochanteric. AROM: BUE WFL. CERVICAL ROM: flexion min loss ,extension severe ,lateral flexion /rotation severe loss. LUMBAR ROM: flexion mod loss ,extension severe l oss ,side glides mod loss. HIP AROM: flexion 90 degrees ,IR ,< 5 degrees ,hip abd 30 degrees. MMT: BUE 4/5 except shoulders 4-/5. MMT: quads/hams 4/5 ,hip flexion 4-/5 ,hip abduction 3+ -peak force 10.5 - Special Tests C/S Radiculapathy - Left Upper limb tension test: Negative C/S Radiculapathy - Right Upper limb tension test: Negative C/S Radiculapathy - Left Spurlings: Positive C/S Radiculapathy - Right Spurlings: Positive C/S Radiculapathy - Left Cervical distraction: Positive C/S Radiculapathy - Right Cervical distraction: Positive Sharp Hugo: Negative Vertebral Artery Test: Negative Alar Ligament Test: Negative R Hip Scour: Positive R Hip CARTER - Intraarticular Pathology: Positive L Hip Scour: Positive L Hip CARTER - Intraarticular Pathology: Positive - Balance/Special Test Scores Oswestry Neck Score: 24 - Goals Goal 1:: Patient to be I with HEP for neck and hip. 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 Goal Time Frame: 4-6 Weeks Goal 4:: Patient to improve ability to walk and stand > 10mins to improve func tion and ADL's with less pain. Goal Time Frame: 4-6 Weeks Goal 5:: Patient to improve neck oswestry score by 5 points to improve QOL Goal Time Frame: 4-6 Weeks - Rehabilitation Potential Physical Therapy Diagnosis: This patient has multiple complexity issues along with pain in spine -cervical and hip ,poor ROM severe loss cervical and hip affects function, impairs gait and standing causes deficits with ADL and job demands thus benefit from skilled PT Rehabilitation Potential: Good - Anticipated Interventions Patient/Client Instruction: Educate patient on: Condition, Plan of Care For the Purpose of:: To decrease pain, To increase ROM, To improve muscle performance and motor function, To improve ability to perform ADL's, To increase tolerance to activity/condition/position, To improve performance and independence with ADL's, To improve ability of physical actions for home/community/work/leisure, To improve gait and locomotor functions, To improve health of tissue, To decrease soft tissue restriction, To increase flexibility/ROM, To improve endurance, To reduce risk of recurrence, To prevent re-injury, To improve tolerance to ADL's Therapeutic Exercise to Include: Strength training, Endurance training, Balance training, Body mechanics, Postural training, Flexibilty training, Dynamic Lumbar Stabilization Comment: BLE For the Purpose of:: To decrease pain, To increase ROM, To improve muscle performance and motor function, To improve ability to perform ADL's, To increase tolerance to activity/condition/position, To improve ability of physical actions for home/community/work/leisure, To improve health of tissue, To decrease soft tissue restriction, To increase flexibility/ROM, To reduce risk of recurrence, To prevent re-injury, To improve tolerance to ADL's Thank you for the opportunity to evaluate your patient. For Medicare and Medicare HMO plans, please review the plan of care and approve it. It will need to be FAXED BACK to us at [phone] for Medicare purposes. For Medicare only, by signing this I certify the plan of care. Please let me know if there are questions or concerns regarding this plan of care. Physician Signature: Date:
--- NOTE | 2022-09-17 10:26 | HP.PT.NRP ---
DALE CAMPBELL was seen in my office for initial evaluation on 07/02/22. The following Plan of Care was established for this patient: Initial Frequency: 1-2x /Week Initial Duration: 4 Weeks Patient/Client Instruction: Educate patient on: Condition, Plan of Care For the Purpose of:: To decrease pain, To increase ROM, To improve muscle performance and motor function, To improve ability to perform ADL's, To increase tolerance to activity/condition/position, To improve performance and independence with ADL's, To improve ability of physical actions for home/community/work/leisure, To improve gait and locomotor functions, To improve health of tissue, To decrease soft tissue restriction, To increase flexibility/ROM, To improve endurance, To reduce risk of recurrence, To prevent re-injury, To improve tolerance to ADL's Therapeutic Exercise to Include: Strength training, Endurance training, Balance training, Body mechanics, Postural training, Flexibilty training, Dynamic Lumbar Stabilization For the Purpose of:: To decrease pain, To increase ROM, To improve muscle performance and motor function, To improve ability to perform ADL's, To increase tolerance to activity/condition/position, To improve ability of physical actions for home/community/work/leisure, To improve health of tissue, To decrease soft tissue restriction, To increase flexibility/ROM, To reduce risk of recurrence, To prevent re-injury, To improve tolerance to ADL's This patient was last seen in our office . Pertinent comments regarding their Physical therapy will appear below: Patient was seen for PT for neck and hip pain for HEP strengthening and posture thus is d/c At this point I will be discontinuing this patient from physical therapy. I would be happy to see this patient again in the future if found appropriate by the physician. Thank you! David Godinez, PT, Cert MDT, OCS Balance/Gait/Functional tests - Balance/Special Test Scores Oswestry Neck Score: 1
== END 2022-07-23 19:00 | disposition home or self-care (01) ==
LOC: PT 12:00
PROVIDERS: PCP Internal Medicine; Referring Provider Anesthesiology Pain Medicine; Visit Provider Anesthesiology Pain Medicine
DX: M54.2 Cervicalgia (principal); M25.559 Pain in unspecified hip
CPT/HCPCS: 97110; 97162

== ENCOUNTER 2022-08-03 11:39 | Inpatient (IN) | payer MEDICARE, BC, SELFPAY ==
[2022-08-03] VITALS (9 sets, daily range): BP systolic 143–158; BP diastolic 62–84; PULSE 76–128; RESP 18–22; TEMP 36.6–37.7; O2SAT 92–98; BMI 41.8; BMI 45.3
--- NOTE | 2022-08-03 12:59 | CT_ITS ---
PROCEDURE: CT PELVIS WITH CONTRAST REASON FOR EXAM: Male, 67 years old. Left hip pain RADIATION DOSAGE (If Supplied By Facility): CTDIvol = ( 28.21 ) mGy, DLP = ( 1019.80 ) mGycm TECHNIQUE: Transaxial images were obtained from the iliac crest to the symphysis pubis without oral contrast, and following the intravenous injection of 20 cc of [id number]. COMPARISON: None. FINDINGS: There is mild narrowing of joints bilaterally. Subchondral cystic changes are seen in the medial aspect of the acetabular bilaterally worse on the right side. Marginal degenerative spurs are seen. Degenerative spurs and soft tissue calcification is adjacent to the greater trochanters and dilatation of the musculotendinous insertion. The sacroiliac joints are unremarkable. The symphysis pubis. There is no evidence of acute fracture or dislocation. The soft tissues of the pelvis demonstrate diverticulosis of the sigmoid colon without evidence of acute diverticulitis. Slightly prominent prostate. No free fluid or abnormal fluid collections CT/Pelvis WITH IV Contrast IMPRESSION: 1. Degenerative arthrosis of both hips as described above. 2. No demonstrated acute fracture or dislocation. 3. Diverticulosis without evidence of acute diverticulitis. 4. Prominent prostate. Electronically Signed: Vishal Patel MD at 15:50 EDT ,
--- NOTE | 2022-08-03 13:02 | EDS_ITS ---
HPI History of Present Illness Chief Complaint: Lower Extremity Injury Narrative Narrative: 67-year-old male presenting with hip pain. He states he has chronic hip pain. He sees Dr. Recio outpatient. He had injections done in the bilateral hips using an anterior approach on . He states initially it did not help but then it got better over the course of the day. He states that since that time is been worse and he is having difficulty ambulating. His has had to assi st him. He states he cannot walk on his own. He can pivot to transfer only. He states his baseline is being able to walk without assistance. Patient states that his pain is worse than preinjection. He denies any systemic signs or symptoms. He was called in [facility] yesterday but this has not helped his pain. [facility] Medical History Anemia Asthma Atherosclerotic heart disease of [place] coronary artery without angina pectoris Back pain Benign prostatic hypertrophy COPD (chronic obstructive pulmonary disease) DDD (degenerative disc disease), cervical Degeneration of intervertebral disc of lumbar region Degenerative disc disease, cervical Depression Diabetes CLARK (dyspnea on exertion) Essential (primary) hypertension Hearing difficulty of both ears History of renal cell cancer Hyperlipidemia Hypothyroidism Instability of medial collateral ligament of knee Kidney disease Lesion of sciatic nerve Lung disease Meniscus degeneration Nephrolithiasis Obesity Obstructive sleep apnea Osteoarthritis, knee Other chcf (current) 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 Over 63 years old Palpitations Polycythemia Precordial chest pain Pulmonary embolism (06/21/18) Restless legs syndrome Right elbow pain Right knee pain Rupture of right biceps tendon Sciatica Scoliosis of thoracic spine Secondary polycythemia Segmental and somatic dysfunction of cervical region Segmental and somatic dysfunction of cervical region Segmental and somatic dysfunction of lumbar region Segmental and somatic dysfunction of lumbar region Segmental and somatic dysfunction of pelvic region Segmental and somatic dysfunction of thoracic region Segmental and somatic dysfunction of thoracic region Shortness of breath Thyroid disease Tinnitus of both ears Trochanteric bursitis, left hip Type II diabetes mellitus Home Medications aspirin 81 mg chewable tablet 81 mg PO DAILY@0800 ANTIPLATELET 03/17/16 [History Last Taken 06/21/18 T] hydroxyurea 500 mg capsule 500 mg PO DAILY 12/17/18 [History Last Taken Unknown] apixaban 5 mg tablet 5 mg PO BID 03/05/20 [History Last Taken Unknown] lactobacillus combination no.8 3 billion cell capsule (Adult Probiotic) 3,000 mmu cells PO DAILY 02/08/21 [History Last Taken Unknown] multivitamin 1 tab PO DAILY 02/08/21 [History Last Taken Unknown] omega-3 fatty acids 1,000 mg capsule (Fish Oil Concentrate) 1,000 mg PO DAILY 02/08/21 [History Last Taken Unknown] metoprolol succinate 25 mg tablet,extended release 24 hr 25 mg PO QHS BLOOD PRESSURE #90 tabs 09/24/21 [Rx Last Taken Unknown] metformin 1,000 mg tablet 1,000 mg PO BID DIABETES #225 tabs 12/27/21 [Rx Last Taken Unknown] furosemide 40 mg tablet 40 mg PO DAILY LEG edema #90 tabs 03/25/22 [Rx Last Taken Unknown] levothyroxine 200 mcg tablet 200 mcg PO DAILY thyroid #90 tabs 03/26/22 [Rx Last Taken Unknown] levothyroxine 25 mcg capsule 25 mcg PO DAILY 04/18/22 [History Last Taken Unknown] gabapentin 100 mg capsule 100 mg PO .COMPLEX #450 caps 06/11/22 [Rx Last Taken Unknown] glipizide 5 mg tablet, extended release 24 hr 5 mg PO DAILY #90 tabs 07/02/22 [Rx Last Taken Unknown] budesonide-formoterol HFA 160 mcg-4.5 mcg/actuation aerosol inhaler (Symbicort) 2 puff inhalation BID PRN wheezing #10.2 grams 07/03/22 [Rx Last Taken Unknown] valsartan 80 mg-hydrochlorothiazide 12.5 mg tablet 1 tab PO DAILY #90 tabs 07/16/22 [Rx Last Taken Unknown] rosuvastatin 10 mg tablet 10 mg PO DAILY #90 tabs 07/31/22 [Rx Last Taken Unknown] hydrocodone-acetaminophen 5-325mg 5mg-325mg 1 tab PO Q8H PRN Pain 08/03/22 [History Last Taken 08/03/22] Allergy/AdvReac Type Severity Reaction Status Date / Time sitagliptin [From ] Allergy Severe Rash Verified 08/03/22 11:40 theophylline Allergy Unknown Verified 08/03/22 11:40 Family History Mother CAD (coronary artery disease) Breast cancer Diabetes Surgical History H/O lithotripsy History of coronary artery stent placement (05/24/11) History of left heart catheterization (06/19/18) History of partial nephrectomy History of tonsillectomy Hx of cataract surgery L eye surgery partial nephrectomy for renal cell cancer Social History Smoking Status: Former smoker quit date: 09/29/84 pack-years: 17 how long ago did patient quit smokin, 1.5/d second hand exposure: Yes alcohol intake: never substance use type: does not use ROS ROS ED Constitutional Constitutional ED: Denies chills or fever(s) Eyes Eyes: Denies change in vision or diplopia ENT ENT ED: Denies rhinorrhea or sore throat Cardiovascular Cardiovascular: Denies chest pain or palpitations Respiratory/Chest Respiratory/Chest: Denies cough or dyspnea Gastrointestinal Gastrointestinal: Denies abdominal pain, nausea or vomiting Genitourinary Genitourinary ED: Denies dysuria or hematuria Musculoskeletal Musculoskeletal: Reports other Details: Bilateral hip pain Integumentary Denies abscess Neurologic Neurologic: Denies headache(s) or paresthesias Psychiatric Psychiatric: Denies anxiety or depression EXAM Physical Exam Const Vital Signs: 08/03/22 11:40 08/03/22 14:38 Temperature 98.4 F Temperature Source Oral Pulse Rate 76 88 Respiratory Rate 18 18 Blood Pressure 154/78 H 158/84 H Blood Pressure Mean 103 108 Pulse Ox 97 98 Oxygen Delivery Method Room Air Room Air Positive well nourished and obese General Appearance ED: NAD Nutritional Appearance: obese HEENT Reports moist mucous membranes Eyes PERRL Resp normal respiratory effort Cardio regular rate and regular rhythm Back/Spine Lumbar Spine / Lower Back: Negative for lumbar spinal tenderness Extremity Extremity Narrative: Pain with movement of the bilateral hips. The left hip is more affected. Neuro oriented x3 and CN's II-XII intact bilaterally Sensorium / Orientation: alert Motor Exam: strength 5/5 throughout Psych mental status grossly normal Skin no wounds MDM MDM MDM Narrative Medical decision making narrative: 67-year-old male presenting with bilateral hip pain. He states the left side is worse than the right. Initially given 0.5 mg of Dilaudid and blood work is obtained. He has a leukocytosis of 15.6 which could be due to recent steroid injection. There is no cellulitic change agent the bilateral hips. He is able to stand although he does have pain. Hemoglobin hematocrit are stable. Platelets are normal. Renal function electrolytes unremarkable. There was a delay in care and getting a CT of the pelvis because the patient had so much pain when he laid down. He was given 1 mg of Dilaudid before CT but was still having pain and had to get an additional 50 mcg of fentanyl to obtain a CT. I obtained a CT of the pelvis as he is having pain after his injections and is unable to ambulate. CT of the pelvis does not show any acute fracture. It does show degenerative arthrosis of the bilateral hips. Patient unable to get around at home and his cannot care for him due to the pain. Discussed with Dr. Solis who felt if he could get his pain under control he should be admitted. I am unable to. I spoke with the hospitalist for admission. Impression: 1. Intractable hip pain 2. Leukocytosis Lab Data Attestation: I reviewed the patient's lab results. Labs: Laboratory Results - last 24 hr 08/03/22 08/03/22 13:15 13:15 WBC 15.6 H RBC 4.45 L Hgb 14.7 Hct 43.0 MCV 96.6 H MCH 33.0 H MCHC 34.2 RDW Std Deviation 45.3 H RDW Coeff of Jonna 12.8 Plt Count 200 MPV 9.9 Immature Gran % (Auto) 0.900 Neut % (Auto) 86.1 H Lymph % (Auto) 5.3 L [place] % (Auto) 7.4 Eos % (Auto) 0.1 Baso % (Auto) 0.2 Absolute Neuts (auto) 13.4 H Absolute Lymphs (auto) 0.82 L Nucleated RBC % 0 Sodium 132 L Potassium 4.1 Chloride 98 Carbon Dioxide 25.0 Anion Gap 9 BUN 22 H Creatinine 1.02 Estim Creat Clear Calc 66.13 Est GFR (MDRD) Af Amer 93 Est GFR (MDRD) Non-Af 77 BUN/Creatinine Ratio 21.6 H Glucose 245 H Calcium 9.7 Radiography Diagnostic Testing: Clinical Impression(s) from Imaging Studies Pelvis CT 08/03/22 12:59 IMPRESSION: 1. Degenerative arthrosis of both hips as described above. 2. No demonstrated acute fracture or dislocation. 3. Diverticulosis without evidence of acute diverticulitis. 4. Prominent prostate. Electronically Signed: Vishal Patel MD at 15:50 EDT , Discharge Plan Triage Chief Complaint: Lower Extremity Injury ED Provider: Scott Wen Dx/Rx/DC Orders Prescriptions: No Action Adult Probiotic 3 billion cell capsule 3,000 mmu cells PO DAILY Rx Instructions: administer with a meal omega-3 fatty acids [Fish Oil Concentrate] 1,000 mg capsule 1,000 mg PO DAILY multivitamin Tablet 1 tab PO DAILY metformin 1,000 mg tablet 1,000 mg PO BID Qty: 225 3RF Rx Instructions: 1,000 mg in am and 1,500 in pm levothyroxine 25 mcg capsule 25 mcg capsule 25 mcg PO DAILY Rx Instructions: Take with a 200 mcg budesonide-formoterol [Symbicort] 160-4.5 mcg/actuation HFA aerosol inhaler 2 puff inhalation BID PRN (Reason: wheezing) Qty: 10.2 3RF aspirin 81 MG tablet,chewable 81 mg PO DAILY@0800 Label Comments: heart health hydroxyurea 500 mg capsule 500 mg PO DAILY apixaban 5 mg tablet 5 mg PO BID Rx Instructions: will stop 2 days prior hydrocodone-acetaminophen [[place]] 5-325 mg Tablet 1 tab PO Q8H PRN (Reason: Pain) metoprolol succinate 25 mg tablet extended release 24 hr 25 mg PO QHS Qty: 90 3RF furosemide 40 mg tablet 40 mg PO DAILY Qty: 90 3RF levothyroxine 200 mcg tablet 200 mcg PO DAILY Qty: 90 1RF Rx Instructions: take with a 25 mcg gabapentin 100 mg capsule 100 mg PO .COMPLEX Qty: 450 3RF Rx Instructions: 100 mg PO; one in am, one in afternoon, and three in the evening glipizide 5 mg tablet extended release 24hr 5 mg PO DAILY Qty: 90 3RF valsartan-hydrochlorothiazide 80-12.5 mg tablet 1 tab PO DAILY Qty: 90 3RF rosuvastatin 10 mg tablet 10 mg PO DAILY Qty: 90 3RF Primary Care Provider: Lauren Quick Referrals: Lauren Quick MD [Primary Care Provider] -
[2022-08-03] MEDS: HYDROmorphone 0.5 MG/0.5 ML SYRINGE IV (13:16)
[2022-08-03] MEDS: Ondansetron 4 MG/2 ML Vial IV (13:16)
[2022-08-03 13:31] LABS: Absolute Lymphocyte Count 0.82 X10^3/uL (0.83-4.51); Absolute Neutrophil Count 13.4 X10^3/uL (2.0-7.7); Basophil# 0.03 X10^3/uL; Basophil% 0.2 % (0-1); Eosinophil# 0.01 X10^3/uL; Eosinophils% 0.1 % (0-5); Hemoglobin 14.7 g/dL (13.0-16.5); Lymphocyte # 0.82 X10^3/ul (0.83-4.51); Lymphocyte % 5.3 % (19-41); Mean Corp Hgb Conc 34.2 g/dL (32-36); Mean Corpuscular Volume 96.6 fL (80-94); Mean Platelet Vol. 9.9 fl (6.2-12.0); Monocyte# 1.15 X10^3/uL; Monocyte% 7.4 % (0-10); NRBC Flagged by Analyzer 0 % (0-5); Neutrophil % 86.1 % (47-70); Platelet Count 200 K/mm3 (150-450); RBC Distribution Width CV 12.8 % (11.6-14.6); RBC Distribution Width SD 45.3 fl (35.1-43.9); Red Blood Count 4.45 M/mm3 (4.6-6.2); White Blood Count 15.6 K/mm3 (4.4-11.0)
[2022-08-03 13:45] LABS: Anion Gap 9 (5-15); BUN 22 mg/dL (7-18); BUN/Creat Ratio 21.6 RATIO (10-20); Calcium,Total 9.7 mg/dL (8.5-10.1); Chloride 98 mmol/L (98-107); Creatinine, Serum 1.02 mg/dL (0.70-1.30); EST Glomerular Filtration Rate 77 mL/min (>60); Est Glom Filt Rate - Afr Amer 93 mL/min (>60); Estimated Creatinine Clearance 66.13 ml/min; Glucose 245 mg/dL (74-106); Potassium 4.1 mmol/L (3.5-5.1); Sodium Level 132 mmol/L (136-145)
[2022-08-03] MEDS: HYDROmorphone 1 MG/ML Syringe IV (14:09)
[2022-08-03] MEDS: fentaNYL 100 MCG/2 ML Ampul 50 MCG IV (14:49)
--- NOTE | 2022-08-03 16:04 | ED.RN ---
able to complete CT scan after 2 doses of dilaudid and 1 dose of fentanyl
--- NOTE | 2022-08-03 16:39 | PCM.HP.STD ---
HPI - General General Date of Admission: 08/03/22 Date of Service: 08/03/22 Chief Complaint: Intractable L hip pain, debility, recent BL hip injections. HPI Narrative The patient is a 67 y/o M w/ PMHx: RHINA, Hx VTE (DVT, PE) Diabetes mellitus type II with neuropathy, Chronic anemia, COPD/Asthma, Former tobacco use, CAD s/p PCI, HTN, HLD, Hypothyroidism, Hx Renal Cell CA s/p partial nephrectomy, RLS, Chronic pain syndrome w/ chronic hip pain following w/ Dr. Solis with recent anterior BL hip injection the prior who presents to the [facility] ED on 08/03/22 with onset initially improvement on the first day however since then he has progressively worsened with increasing severe pain and debility to the point of inability to ambulate specifically with the L hip reporting the right has felt improved, requiring his to perform any/minimal activity prompting ED evaluation. He reports the pain as constant, sharp and aching with occasional shooting pains down the left leg, rated at its worse 10/10, notes unable to lay flat as this exacerbates the discomfort as well as any ambulatory attempts. Work-up in the ED included T98.4, heart 76, BP 154/78, respiratory rate 18, 97% room air, CBC with WC 15.6, hemoglobin 14.7, platelet 200 with left shift and lymphopenia, BMP with sodium 135, BUN/current 22/1.02, glucose 245, CT pelvis with IV contrast arthritis of both hips with no demonstrated fracture or dislocation. In the ED patient ministered Zofran, fentanyl 50 mcg IV x1, Dilaudid 0.5 mg IV x1 and 1 mg IV x1. [facility] Medical History Anemia Asthma Atherosclerotic heart disease of [place] coronary artery without angina pectoris Back pain Benign prostatic hypertrophy COPD (chronic obstructive pulmonary disease) DDD (degenerative disc disease), cervical Degeneration of intervertebral disc of lumbar region Degenerative disc disease, cervical Depression Diabetes CLARK (dyspnea on exertion) Essential (primary) hypertension Hearing difficulty of both ears History of renal cell cancer Hyperlipidemia Hypothyroidism Instability of medial collateral ligament of knee Kidney disease Lesion of sciatic nerve Lung disease Meniscus degeneration Nephrolithiasis Obesity Obstructive sleep apnea Osteoarthritis, knee 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 Over 63 years old Palpitations Polycythemia Precordial chest pain Pulmonary embolism (06/21/18) Restless legs syndrome Right elbow pain Right knee pain Rupture of right biceps tendon Sciatica Scoliosis of thoracic spine Secondary polycythemia Segmental and somatic dysfunction of cervical region Segmental and somatic dysfunction of cervical region Segmental and somatic dysfunction of lumbar region Segmental and somatic dysfunction of lumbar region Segmental and somatic dysfunction of pelvic region Segmental and somatic dysfunction of thoracic region Segmental and somatic dysfunction of thoracic region Shortness of breath Thyroid disease Tinnitus of both ears Trochanteric bursitis, left hip Type II diabetes mellitus Home Medications aspirin 81 mg chewable tablet 81 mg PO DAILY@0800 ANTIPLATELET 03/17/16 [History Last Taken 06/21/18 T] hydroxyurea 500 mg capsule 500 mg PO DAILY 12/17/18 [History Last Taken Unknown] lactobacillus combination no.8 3 billion cell capsule (Adult Probiotic) 3,000 mmu cells PO DAILY 02/08/21 [History Last Taken Unknown] multivitamin 1 tab PO DAILY 02/08/21 [History Last Taken Unknown] omega-3 fatty acids 1,000 mg capsule (Fish Oil Concentrate) 1,000 mg PO DAILY 02/08/21 [History Last Taken Unknown] metoprolol succinate 25 mg tablet,extended release 24 hr 25 mg PO QHS BLOOD PRESSURE #90 tabs 09/24/21 [Rx Last Taken Unknown] furosemide 40 mg tablet 40 mg PO DAILY LEG edema #90 tabs 03/25/22 [Rx Last Taken Unknown] gabapentin 100 mg capsule 100 mg PO .COMPLEX #450 caps 06/11/22 [Rx Last Taken Unknown] glipizide 5 mg tablet, extended release 24 hr 5 mg PO DAILY #90 tabs 07/02/22 [Rx Last Taken Unknown] valsartan 80 mg-hydrochlorothiazide 12.5 mg tablet 1 tab PO DAILY #90 tabs 07/16/22 [Rx Last Taken Unknown] hydrocodone-acetaminophen 5-325mg 5mg-325mg 1 tab PO Q8H PRN Pain 08/03/22 [History Last Taken 08/03/22] levothyroxine 200 mcg tablet 225 mcg PO DAILY thyroid 08/03/22 [History Last Taken Unknown] metformin 1,000 mg tablet 1,000 mg PO 1000,1500 DIABETES 08/03/22 [History Last Taken Unknown] rosuvastatin 10 mg tablet 10 mg PO QHS 08/03/22 [History Last Taken Unknown] Allergy/AdvReac Type Severity Reaction Status Date / Time sitagliptin [From Januvia] Allergy Severe Rash Verified 08/03/22 11:40 theophylline Allergy Unknown Verified 08/03/22 11:40 Family History Mother CAD (coronary artery disease) Breast cancer Diabetes other (Patient does not know any of his paternal family history.) Surgical History H/O lithotripsy History of coronary artery stent placement (05/24/11) History of left heart catheterization (06/19/18) History of partial nephrectomy History of tonsillectomy Hx of cataract surgery L eye surgery partial nephrectomy for renal cell cancer Social History (Updated 08/03/22 @ 16:[address] Shannan Acosta MD) household members: spouse Smoking Status: Former smoker quit date: 09/29/84 pack-years: 17 how long ago did patient quit smokin, 1.5/d second hand exposure: Yes alcohol intake: never substance use type: does not use ROS ROS Narrative Admission Review of Systems: CONSTITUTIONAL: No weight loss, fever, chills, + weakness or fatigue. HEENT: Eyes: No visual loss, blurred vision, double vision or yellow sclerae. Ears, Nose, Throat: No hearing loss, sneezing, congestion, runny nose or sore throat. SKIN: No rash or itching, lesions, wounds. CARDIOVASCULAR: No chest pain, chest pressure or chest discomfort, palpitations, edema, orthopnea, syncopal events. RESPIRATORY: No shortness of breath, cough or sputum, wheezing, hemoptysis. GASTROINTESTINAL: No anorexia, nausea, vomiting or diarrhea, abdominal pain, melena, BRBPR. GENITOURINARY: No dysuria, frequency, urgency or retention. NEUROLOGICAL: + L hip/LLE shooting pains, debility, inability to walk, No headache, dizziness, syncope, paralysis, ataxia, change in bowel or bladder control, seizure. MUSCULOSKELETAL: + muscle, back pain, joint pain or stiffness. HEMATOLOGIC: No anemia, bleeding or bruising. LYMPHATICS: No enlarged nodes. No history of splenectomy. PSYCHIATRIC: No history of depression or anxiety. ENDOCRINOLOGIC: No reports of sweating, cold or heat intolerance. No polyuria or polydipsia. ALLERGIES: No history of asthma, hives, eczema or rhinitis. Vital Signs Vital Signs Vital Signs: 08/03/22 11:40 08/03/22 14:38 08/03/22 16:25 Temperature 98.4 F 98.4 F Temperature Source Oral Oral Pulse Rate 76 88 88 Respiratory Rate 18 18 18 Blood Pressure 154/78 H 158/84 H 158/84 H Blood Pressure Mean 103 108 108 Pulse Ox 97 98 98 Oxygen Delivery Method Room Air Room Air Room Air Weight Weight: 274 lb 14.663 oz Body Mass Index (BMI) 41.8 Physical Exam Narrative Physical Examination: General: Awake, alert, oriented x 3 and cooperative, seated upright in the ED bedside chair, uncomfortable appearing, attempting to offload off the left hip. Skin: Normal color, normal turgor, no icterus, no cyanosis except for bilateral lower extremity mild venous stasis skin changes. HEENT: AT/NC, EOMI, PERRLA, mildly dry MM, no carotid bruits or JVD noted. Lungs: Mildly diminished, greater bases, appropriate effort, no rales, ronchi or wheezing. Heart: Regular rate and rhythm; no gallop, rub audible. Abdomen: Soft, morbidly obese, no obvious grimacing with palpation, no obvious distention, mildly hyperactive bowel sounds, no obvious HSM however habitus makes evaluation difficult. Extremities: No cyanosis, no clubbing, mild pedal nonpitting edema bilaterally, see skin. Discomfort with palpation of the quadriceps and groin/hip region. Neurological: Patient awake, alert, oriented x 3, cognitive function intact; pupils equally reactive to light and accommodation, cranial nerves II-XII grossly normal, moving all 4 extremities except extremely limited left lower extremity given severe hip discomfort and shooting pains for leg, strength accordingly severely globally decreased. Psychiatric: Affect appears uncomfortable, no acute evidence of depressive or anxiety feelings. Results Lab / Micro Data Result Diagrams: 08/03/22 13:15 08/03/22 13:15 Labs: Laboratory Results - last 24 hr 08/03/22 13:15: WBC 15.6 H, RBC 4.45 L, Hgb 14.7, Hct 43.0, MCV 96.6 H, MCH 33.0 H, MCHC 34.2, RDW Std Deviation 45.3 H, RDW Coeff of Jonna 12.8, Plt Count 200, MPV 9.9, Immature Gran % (Auto) 0.900, Neut % (Auto) 86.1 H, Lymph % (Auto) 5.3 L, [place] % (Auto) 7.4, Eos % (Auto) 0.1, Baso % (Auto) 0.2, Absolute Neuts (auto) 13.4 H, Absolute Lymphs (auto) 0.82 L, Nucleated RBC % 0 08/03/22 13:15: Sodium 132 L, Potassium 4.1, Chloride 98, Carbon Dioxide 25.0, Anion Gap 9, BUN 22 H, Creatinine 1.02, Estim Creat Clear Calc 66.13, Est GFR (MDRD) Af Amer 93, Est GFR (MDRD) Non-Af 77, BUN/Creatinine Ratio 21.6 H, Glucose 245 H, Calcium 9.[address] 08/03/22 12:59 IMPRESSION: 1. Degenerative arthrosis of both hips as described above. 2. No demonstrated acute fracture or dislocation. 3. Diverticulosis without evidence of acute diverticulitis. 4. Prominent prostate. Electronically Signed: Vishal Patel MD at 15:50 EDT , Assessment & Plan Assessment/Plan (1) Hip pain: PLAN: Plan The patient is a 67 y/o M w/ PMHx: RHINA, Hx VTE (DVT, PE), Diabetes mellitus type II with neuropathy, Chronic anemia, COPD/Asthma, Former tobacco use, CAD s/p PCI, HTN, HLD, Hypothyroidism, Hx Renal Cell CA s/p partial nephrectomy, RLS, Chronic pain syndrome w/ chronic hip pain following w/ Dr. Solis with recent anterior BL hip injection the prior who presents to the [facility] ED on 08/03/22 with onset initially improvement on the first day however since then he has progressively worsened with increasing severe pain and debility to the point of inability to ambulate specifically with the L hip reporting the right has felt improved, requiring his to perform any/minimal activity prompting ED evaluation. #1. Acute Intractable R Hip Pain on Chronic status post recent anterior injection for pain management with increased debility, unable to ambulate effectively: Will admit to [facility], maintain on fall precautions, frequent positioning, initiate IV toradol cautiously, lidocaine patches, tizanidine, increase patient home gabapentin regimen, medrol dose pack, po/IV narcotic pain regimen, anti-emetics, bowel regimen. Will consult PT and OT for evaluation as well as Case management for discharge planning. Additionally will consult Dr. Solis who is aware and will evaluate patient. #2. Incidentally noted prominent prostate: CT pelvis with IV contrast with noted prominent prostate, encourage continued outpatient follow-up with PCP #3. CAD: Status post PCI, will continue aspirin, statin, metoprolol, valsartan home regimen. #4. Diabetes mellitus type II with neuropathy: Hold oral home regimen, ADA diet, accu checks w/ ISS, increased home gabapentin regimen as noted #1. #5. Chronic COPD/asthma: Not on regimen per current list, PRN albuterol, encourage head of bed and I-S. #6. Hypertension: Continue home regimen including valsartan, hydrochlorothiazide, metoprolol, Lasix, PRN hydralazine. #7. Hyperlipidemia: We will continue patient on statin therapy. #8. History of VTE: Patient with history DVT, PE per records, previously on apixaban regimen, no longer taking. #9. History of renal cell cancer: Status post partial nephrectomy, considered in remission. #10. Morbid Obesity: Weight loss and lifestyle changes encouraged. #11. Hypothyroidism: We will continue patient on levothyroxine regimen. #12. Former tobacco usage: Encourage continued tobacco cessation. #13. RHINA: CPAP nightly. #14. DVT prophylaxis: SCDs, lovenox. #15. CODE status: Patient ABIMAEL is his who is present and living will is currently in place. Full Code status. Charges/Coding Visit Charges OBSV E&M: 77634 Initial observation care L3
[2022-08-03] MEDS: MethylPREDNISolone DosePak 4 MG BOX 8 MG PO ×2 (17:50→22:02)
[2022-08-03] MEDS: 0.9% Normal Saline 1,000 ML 100 ML IV (17:50)
[2022-08-03] MEDS: Lidocaine 5% Patch 2 PATCH TOPICAL (17:51)
[2022-08-03] MEDS: Gabapentin 300 MG Capsule PO (17:52)
[2022-08-03] MEDS: Ketorolac 15 MG/ML Vial IV (17:53)
[2022-08-03] MEDS: oxyCODONE 5 MG Tablet PO (17:56)
[2022-08-03] MEDS: Acetaminophen 325 MG Tablet 650 MG PO (17:56)
[2022-08-03] MEDS: tiZANidine HCl 2 MG Tablet PO (18:14)
--- NOTE | 2022-08-03 19:42 | CPS ---
Home PAP unit set-up at pt.'s bedside.
[2022-08-03] MEDS: Metoprolol(XL)Succ 25 MG Tablet PO (22:04)
[2022-08-03] MEDS: Atorvastatin Calcium 20 MG Tablet PO (22:04)
[2022-08-03] MEDS: Insulin Lispro 100 UNIT/ML INSULN.PEN SC (22:05)
[2022-08-03 23:01] LABS: Bedside Glucose 224 mg/dL (74-106)
[2022-08-04] VITALS (33 sets, daily range): BP systolic 94–161; BP diastolic 58–86; PULSE 69–145; RESP 12–36; TEMP 36.6–39.6; O2SAT 91–99
--- NOTE | 2022-08-04 01:00 | RAD_ITS ---
STUDY: X-RAY CHEST REASON FOR EXAM: Male, 67 years old patient with shortness of breath. TECHNIQUE: Single AP portable view of the chest. COMPARISON: 06/08/2019. FINDINGS: The lungs are underexpanded with crowding of the bronchovascular markings and obscuration of the lung bases. There is no demonstrated pleural abnormality. There is borderline cardiomegaly. Normal mediastinum and selina. There is prominence of the pulmonary hilar arteries with peripheral pulmonary vascular congestion. Normal visualized aortic arch and descending thoracic aorta. There are diffuse degenerative changes of the visualized thoracic spine. Normal visualized ribs, clavicles, and shoulders. There is no demonstrated abnormality of the visualized soft tissue structures of the upper abdomen. RAD/Chest 1 View (Portable) IMPRESSION: Borderline cardiomegaly and mild pulmonary vascular congestion. Electronically Signed: Kailey Grider MD at 1:28 EDT ,
[2022-08-04 01:04] LABS: Erythrocyte Sedimentation Rate 2 mm/hr (0-20)
--- NOTE | 2022-08-04 01:26 | PCM.HOSP.N ---
Hospitalist Note Patient admitted with left hip pain that had been worsening since injection performed. Was found to be febrile and now having temperatures 103.2. UA and blood cultures obtained. Chest x-ray performed. Chest x-ray is unremarkable other than elevated right hemidiaphragm. I obtained a sed rate and CRP. ESR is 2 however CRP is 157. CT of the pelvis was performed and does not show any acute findings at either hip joint however with ongoing pain, fever, white count, and CRP my suspicion for postprocedure septic joint is high. We will obtain MRI of the left hip. Vancomycin and Zosyn were initiated after cultures were obtained. I was called to evaluate the patient as with a temperature of 103.2 he was tachycardic and tachypneic with some intermittent confusion. Tylenol was given and we are packing him and ice currently. He is hemodynamically stable. Patient indicates that he does have some claustrophobia and I will order a one-time dose of Ativan to be given 30 minutes prior to MRI.
--- NOTE | 2022-08-04 01:30 | NURSING ---
Dr Moya notified of pts increasing agitation, restlessness,confusion, tachypnea, tachycardia, and febrile. This RN requested MD to come see pt. Griffin is currently at bedside evaluating pt. vitals, labs, blood cultures, urinalysis, cxray obtained. see new orders. believes change in condition is related to infected joint after injection therapy. MRI ordered
[2022-08-04] MEDS: Acetaminophen 325 MG Tablet 650 MG PO ×4 (01:42→18:18)
[2022-08-04] MEDS: Ketorolac 15 MG/ML Vial IV ×3 (01:42→18:12)
[2022-08-04 01:53] LABS: Lactic Acid 3.5 mmol/L (0.4-1.9)
[2022-08-04 02:00] LABS: Bedside Glucose 259 mg/dL (74-106)
[2022-08-04 02:13] LABS: Squamous Epithelial Cells - UA 0 SEEN /hpf (0-5); White Blood Cells 0 SEEN /hpf (0-5)
[2022-08-04 02:15] LABS: Color, Urine Yellow (Yellow); Glucose, Dipstick 250 mg/dl (Normal); Ketone-Dipstick 50 mg/dl (Negative); Leukocyte Esterase-Dipstick Negative /ul (Negative); Nitrite-Dipstick Negative (Negative); Occult Blood-Urine 50 /ul (Negative); Protein-Dipstick 100 mg/dl (Negative); Urine Bilirubin Dipstick Negative (Negative); Urine Clarity Clear (Clear); Urine Urobilinogen Normal (Normal)
[2022-08-04 03:23] LABS: Bacteria RARE /hpf (None Seen); Mucous, Urine RARE /hpf (<or=2+); Red Blood Cells-Urine 0-5 SEEN /hpf (0-5)
--- NOTE | 2022-08-04 04:27 | PCM.RX.CS ---
Consult Pharmacy has been consulted to manage selected antiobiotic: Vancomycin Type of Consult: New start Labs: Sodium 132 mmol/L (136-145) L 08/03/22 13:15 Potassium 4.1 mmol/L (3.5-5.1) 08/03/22 13:15 Chloride 98 mmol/L (98-107) 08/03/22 13:15 Carbon Dioxide 25.0 mmol/L (21.0-32.0) 08/03/22 13:15 Anion Gap 9 (5-15) 08/03/22 13:15 BUN 22 mg/dL (7-18) H 08/03/22 13:15 Creatinine 1.02 mg/dL (0.70-1.30) 08/03/22 13:15 Est GFR (MDRD) Af Amer 93 mL/min (>60) 08/03/22 13:15 Est GFR (MDRD) Non-Af 77 mL/min (>60) 08/03/22 13:15 BUN/Creatinine Ratio 21.6 RATIO (10-20) H 08/03/22 13:15 Glucose 245 mg/dL (74-106) H 08/03/22 13:15 Microbiology: Microbiology 08/04/22 01:18 EST Nasal Secretion SARS-CoV-2 & FLU Antigen (Rapid) - Final Goal Trough: 15-20 mcg/mL Pharmacy Plan for Drug Dosing: Pharmacy Service will continue to monitor and adjust dosing as required. Medications Vancomycin HCl 2,000 mg/ (Sodium Chloride) 540 mls @ 250 mls/hr IV Q12H PEPE Discontinued Medications Vancomycin HCl 2,000 mg/ (Sodium Chloride) 540 mls @ 250 mls/hr IV X1 ONE Stop: 08/04/22 02:39 Last Admin: 08/04/22 01:07 EST Dose: 250 mls/hr Follow-Up Labs: Trough Vancomycin Labs to be done on [date and time ordered]: 08/05 @ 2279
[2022-08-04 05:20] LABS: Reflex Lactate? Y
--- NOTE | 2022-08-04 05:35 | NURSING ---
Chair alarm sounding, pt found in sitting position on the floor in a puddle of water, CPAP upset next to pt and water pitcher empty on floor, pt's side table upside down next to pt's bed. Pt A&Ox3-states he fell attempting to get out of the chair, denies hitting head during fall. Pt assisted back to bed x 4 staff members. Pt denies pain, VS obtained, neuro assessment unchanged from previous. Abrasions noted to rt hip and rt thigh. Dr. Moya notified of fall with no new orders.
[2022-08-04] MEDS: Levothyroxine 75 MCG Tablet 225 MCG PO (05:56)
[2022-08-04] MEDS: 0.9% Normal Saline 1,000 ML 100 ML IV ×3 (05:58→21:33)
[2022-08-04] MEDS: Insulin Lispro 100 UNIT/ML INSULN.PEN SC ×4 (06:03→21:30)
[2022-08-04 06:38] LABS: Lactic Acid 6.8 mmol/L (0.4-1.9)
[2022-08-04 07:05] LABS: Bedside Glucose 236 mg/dL (74-106)
[2022-08-04 07:25] LABS: Hematocrit 41.3 % (40-54); Mean Corp Hgb Conc 33.9 g/dL (32-36); Mean Corpuscular Hgb 32.9 pg (27.0-32.0); Mean Corpuscular Volume 96.9 fL (80-94); Mean Platelet Vol. 10.4 fl (6.2-12.0); POSITIVE COUNT YES; POSITIVE DIFFERENTIAL YES; POSITIVE MORPHOLOGY YES; Platelet Count 103 K/mm3 (150-450); RBC Distribution Width CV 12.9 % (11.6-14.6); RBC Distribution Width SD 45.5 fl (35.1-43.9); Red Blood Count 4.26 M/mm3 (4.6-6.2)
[2022-08-04 07:31] LABS: Differential Indicated MANUAL DIFF
[2022-08-04 07:37] LABS: ALB/GLOB Ratio 0.9 RATIO (0.9-2.4); AST(SGOT) 18 U/L (15-37); Alanine Aminotransfer ALT/SGPT 35 U/L (16-61); Albumin, Serum 3.3 g/dL (3.2-5.0); Alkaline Phosphatase 62 U/L (45-117); Anion Gap 16 (5-15); BUN 23 mg/dL (7-18); BUN/Creat Ratio 19.2 RATIO (10-20); Calcium,Total 8.8 mg/dL (8.5-10.1); Chloride 94 mmol/L (98-107); EST Glomerular Filtration Rate 64 mL/min (>60); Est Glom Filt Rate - Afr Amer 77 mL/min (>60); Estimated Creatinine Clearance 48.65 ml/min; Globulin 3.7 g/dL (2.2-4.2); Glucose 245 mg/dL (74-106); Sodium Level 130 mmol/L (136-145)
--- NOTE | 2022-08-04 08:34 | NURSING ---
0820 patient in chair, very restless. repositioned in chair. instructed patient to stay in chair. chair alarm on. pulse 123, resp 30 temp 98. Kenia Rodríguez RN
--- NOTE | 2022-08-04 08:47 | ECHOD_ITS ---
Reason For Study: Dyspnea/SOB Procedure This was a 2D Doppler, Color Flow transthoracic echocardiogram. Technically difficult study. No Definity used due to partial nephrectomy. Exam performed portable in ICU/CCU. Left Ventricle Normal LV size. Mild concentric left ventricular hypertrophy. Left ventricular systolic function is normal. The estimated ejection fraction is 60 %. Stage 1 diastolic dysfunction. No regional wall motion abnormalities noted. Right Ventricle Normal RV size. Normal systolic function. Atria Normal left atrium. Normal right atrium. Mitral Valve Normal mitral valve. Tricuspid Valve The tricuspid valve is not well visualized. Aortic Valve Trisinus/trileaflet aortic valve. Pulmonic Valve The pulmonic valve is not well visualized. Great Vessels Normal aortic root. The pulmonary artery is normal size. Normal inferior vena cava. Pericardium/Pleural No pericardial effusion. MMode/2D Measurements & Calculations LVIDd: 4.6 cm IVSd: 1.3 cm LA dimension: 4.6 cm LVIDs: 2.9 cm LVPWd: 1.3 cm RVDd: 3.8 cm FS: 36.7 % LAV(MOD-bp): 42.2 ml LA A4 area: 16.8 cm2 LAV(MOD-bp) Indexed: 19.2 ml/m2 LAV(MOD-sp2): 40.4 ml LAV(MOD-sp4): 39.0 ml Time Measurements MV dec time: 0.19 sec Doppler Measurements & Calculations MV E max skyler: 66.5 cm/sec Lat Peak E' Skyler: 9.9 cm/sec Med Peak E' Skyler: 7.8 cm/sec MV A max skyler: 83.6 cm/sec E/E' lat: 6.7 E/E' med: 8.5 MV E/A: 0.80 MV V2 max: 102.0 cm/sec MV P1/2t max skyler: 91.8 cm/sec Ao V2 max: 114.2 cm/sec MV max P.2 mmHg MV P1/2t: 73.1 msec Ao max P.2 mmHg MV V2 mean: 61.2 cm/sec MV dec slope: 368.1 cm/sec2 MV mean P.7 mmHg MVA(P1/2t): 3.0 cm2 MV V2 VTI: 29.8 cm LV V1 max: 86.7 cm/sec PA V2 max: 79.6 cm/sec LV V1 max P.0 mmHg ECHO/Echo Complete Interpretation Summary Normal LV size. Left ventricular systolic function is normal. The estimated ejection fraction is 60 %. Stage 1 diastolic dysfunction. Mild concentric left ventricular hypertrophy. Ordering Physician: Laurie Duran Referring Physician: Lauren Quick M.D. Performed By: Kevon Castellanos RCS
--- NOTE | 2022-08-04 08:47 | RAD_ITS ---
STUDY: X-RAY CHEST REASON FOR EXAM: Male, 67 years old. Tachypnea TECHNIQUE: 2 AP portable views COMPARISON: Earlier today FINDINGS: Stable elevation of the right hemidiaphragm The lungs are clear and expanded. There is no demonstrated pleural abnormality. Normal size heart. Normal mediastinum and selina. Normal visualized pulmonary arteries. Normal visualized aortic arch and descending thoracic aorta. Normal visualized thoracic spine. Normal visualized ribs, clavicles, and shoulders. There is no demonstrated abnormality of the visualized soft tissue structures of the upper abdomen. RAD/Chest 1 View (Portable) IMPRESSION: No acute pulmonary process Electronically Signed: Dell Whitaker MD at 10:38 EST ,
--- NOTE | 2022-08-04 08:49 | PCM.PN.HOSP ---
Subjective Subjective DOS: 08/04/2022 CC: I am tired Very tired and would wake up to talk but will quickly fall back asleep. Reported continued right hip soreness with intractable left hip pain. Reported no changes in breathing at the time of exam, denied chest pain. Objective Data Objective Data Vital Signs: Vital Signs Temp Pulse Resp BP Pulse Ox O2 Del Method 98 F 123 H 30 H 146/84 H 95 Room Air 08/04/22 08:20 08/04/22 08:20 08/04/22 08:20 08/04/22 08:20 08/04/22 08:20 08/04/22 08:20 Oxygen Delivery Method Room Air Weight: 119.748 kg Body Mass Index (BMI) 45.3 Intake & Output: Intake and Output for Last 24 Hours 08/02/22 08/03/22 08/04/22 23:59 23:59 22:59 Intake Total 430 / 430 1160.00 / 1160.00 Output Total 250 / 250 Balance 430 / 430 910.00 / 910.00 Lab / Micro Data Result Diagrams: 08/04/22 06:23 08/04/22 06:23 Labs: Laboratory Results - last 24 hr 08/03/22 13:15: WBC 15.6 H, RBC 4.45 L, Hgb 14.7, Hct 43.0, MCV 96.6 H, MCH 33.0 H, MCHC 34.2, RDW Std Deviation 45.3 H, RDW Coeff of Jonna 12.8, Plt Count 200, MPV 9.9, Immature Gran % (Auto) 0.900, Neut % (Auto) 86.1 H, Lymph % (Auto) 5.3 L, [place] % (Auto) 7.4, Eos % (Auto) 0.1, Baso % (Auto) 0.2, Absolute Neuts (auto) 13.4 H, Absolute Lymphs (auto) 0.82 L, Nucleated RBC % 0 08/03/22 13:15: Sodium 132 L, Potassium 4.1, Chloride 98, Carbon Dioxide 25.0, Anion Gap 9, BUN 22 H, Creatinine 1.02, Estim Creat Clear Calc 66.13, Est GFR (MDRD) Af Amer 93, Est GFR (MDRD) Non-Af 77, BUN/Creatinine Ratio 21.6 H, Glucose 245 H, Calcium 9.7 08/03/22 22:01: POC Glucose 224 H 08/04/22 00:50: C-React Prot Ext Range 157.00 H 08/04/22 00:50: ESR 2 08/04/22 01:20 EST: Lactic Acid 3.5 H* 08/04/22 01:41 EST: POC Glucose 259 H 08/04/22 01:45 EST: Urine Color Yellow, Urine Clarity Clear, Urine pH 5.0, Ur Specific [place] 1.020, Urine Protein 100 H, Urine Glucose (UA) 250 H, Urine Ketones 50 H, Urine Occult Blood 50 H, Urine Nitrite Negative, Urine Bilirubin Negative, Urine Urobilinogen Normal, Ur Leukocyte Esterase Negative, Urine RBC 0-5 SEEN, Urine WBC 0 SEEN, Ur Squamous Epith Cells 0 SEEN, Urine Bacteria RARE, Urine Mucus RARE 08/04/22 05:30: Lactic Acid 6.8 H* 08/04/22 05:55: POC Glucose 236 H 08/04/22 06:23: WBC 12.0 H, RBC 4.26 L, Hgb 14.0, Hct 41.3, MCV 96.9 H, MCH 32.9 H, MCHC 33.9, RDW Std Deviation 45.5 H, RDW Coeff of Jonna 12.9, Plt Count 103 L, MPV 10.4, Neut % (Auto) Not Reportable 08/04/22 06:23: Sodium 130 L, Potassium 4.0, Chloride 94 L, Carbon Dioxide 20.0 L, Anion Gap 16 H, BUN 23 H, Creatinine 1.20, Estim Creat Clear Calc 48.65, Est GFR (MDRD) Af Amer 77, Est GFR (MDRD) Non-Af 64, BUN/Creatinine Ratio 19.2, Glucose 245 H, Calcium 8.8, Total Bilirubin 1.10 H, AST 18, ALT 35, Alkaline Phosphatase 62, Total Protein 7.0, Albumin 3.3, Globulin 3.7, Albumin/Globulin Ratio 0.9 Micro: Microbiology 08/04/22 01:18 EST Nasal Secretion SARS-CoV-2 & FLU Antigen (Rapid) - Final Radiography Diagnostic Testing: Radiology Impression Pelvis CT 08/03/22 12:59 IMPRESSION: 1. Degenerative arthrosis of both hips as described above. 2. No demonstrated acute fracture or dislocation. 3. Diverticulosis without evidence of acute diverticulitis. 4. Prominent prostate. Electronically Signed: Vishal Patel MD at 15:50 EDT , Chest X-Ray 08/04/22 01:00 EST IMPRESSION: Borderline cardiomegaly and mild pulmonary vascular congestion. Electronically Signed: Kailey Grider MD at 1:28 EDT , Physical Exam Const Constitutional Narrative: Tired, would wake up and answer questions but fell back asleep quickly HEENT Head and Scalp: normocephalic Eyes EOMs intact bilaterally Neck supple Resp Resp Narrative: Had CPAP in place, difficult to auscultate due to body habitus so. Diminished at the bases Cardio Cardio Narrative: Regular rhythm, tachycardic GI GI Narrative: Mildly protuberant, soft, nontender to palpation Extremity Extremity Narrative: Moving extremities, mild pitting edema in lower extremities Neuro Neuro Narrative: No overt focal focal neurological deficits appreciated Psych Psych Narrative: Cooperative Assessment & Plan Assessment/Plan (1) Hip pain: PLAN: Plan #Intractable left hip pain In setting of recent bilateral hip injections CRP elevated at 157, white count elevated, febrile Will consult orthopedics, concern for septic joint CT of the hip unrevealing, MRI ordered Blood cultures pending Tachycardic, tachypneic and with rising lactic acid will transfer to ICU and consult ICU team Holding steroids that were given for pain on admission Now on Vanc and Zosyn Continue pain control Dr. Solis was consulted on admission for pain management, do want to evaluate for septic joint however and have consulted Ortho as above #Lactic acidosis Has increased since admission, giving fluids Has been started on Vanco and Zosyn On admission was 3.5, trended up to 6.8. We will continue to trend Blood cultures obtained Anion gap increasing in addition, transferring to ICU ICU and Ortho consulted as above #Tachypnea As well as tachycardia Likely due to underlying infection but given borderline cardiomegaly with questionable congestion on chest x-ray we will repeat chest x-ray, BNP ordered, echo ordered Not hypoxic at this time COVID-negative Given tachycardia and tachypnea in light of history of VTE with self discontinuation of anticoagulation will obtain D-dimer, if elevated (likely will be given current presentation but if negative will not proceed) will obtain lower extremity duplex versus CTA #Coronary artery disease Status post PCI in 2010 Aspirin, statin, metoprolol, valsartan had been continued on admission Last heart cath May 2018 showed patent LAD stent and EF of 60% #Type 2 diabetes mellitus Home orals been held Accu-Cheks with sliding scale insulin, increase sliding scale to high-dose #Chronic COPD Not on regimen per current list As needed albuterol Follows with Dr. 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 The PE had unclear etiology. It was recommended he was on it lifelong but he had been reluctant to do so especially given cost and elected to stop it himself. If reluctant to take blood thinners due to cost Coumadin may be an option in the future Will obtain D-dimer given tachycardia and tachypnea, elevated whether duplex lower extremities or CTA if able to tolerate #History of RCC in remission Status post partial nephrectomy #Morbid obesity Weight lifts and lifestyle change encouraged #Hypothyroidism Will continue Synthroid #RHINA CPAP nightly Charges/Coding Visit Charges Inpatient E&M: 34350 Subs Hosp L2
[2022-08-04] MEDS: Aspirin 81 MG TAB.CHEW PO (09:10)
[2022-08-04] MEDS: Gabapentin 300 MG Capsule PO ×2 (09:12→18:13)
[2022-08-04 09:19] LABS: BNP,B-Type NATRIURETIC PEPTIDE 116.3 pg/mL (0-100); Lymphocyte 3 % (19-41); Monocyte 2 % (0-10); Myelocyte 1 % (0-0); Neutrophil-Band 3 % (0-5); Neutrophil-Segmented 91 % (47-70); Total Cells Counted 100 (MANUAL DIFF)
[2022-08-04 09:22] LABS: Platelet Estimate ADEQUATE (ADEQ); Red Cell Morphology NORM C+C NORMAL (NORM C&C)
[2022-08-04 09:24] LABS: Absolute Neutrophil Count 11.3 X10^3/uL (2.0-7.7)
[2022-08-04 09:25] LABS: Absolute Lymphocyte Count 0.36 X10^3/uL (0.83-4.51)
--- NOTE | 2022-08-04 09:30 | NURSING ---
0822 Dr Duran responded to text, new orders given. Patient to be transferred to ICU. IV bolus started. Vss- temp 99.2, pulse 101 Bp 107/64 pox 95% RA. patient less restless at this time. aware of transfer to ICU. Kenia Rodríguez RN
[2022-08-04 09:32] LABS: Dohle Bodies 3+
--- NOTE | 2022-08-04 10:04 | NURSING ---
0965 called report to ICU, patient and family aware. Kenia Rodríguez RN
--- NOTE | 2022-08-04 10:27 | CONS.ORTHO ---
HPI Consult Data Date of Consult: 08/04/22 HPI Narrative Reason for Consultation: Concern for left hip septic arthritis HPI Narrative: DALE CAMPBELL, is a 67 M who presents with 2 days of left hip pain. Patient had bilateral intra-articular corticosteroid injections performed by Dr. Solis 08/01/2022. Patient states he did well the day of the injections. He went to work on Friday and noted severe pain in his left hip and to a lesser degree in his right. The right has since improved in terms of pain. Pain was so significant he did come into the emergency department yesterday 08/03/22. He denies any significant fevers or other symptoms besides hip pain prior to admission. Patient was initially admitted for intractable hip pain. Overnight last night, patient had worsening pain and was found to be febrile with temperatures of 103.2. Tachycardia was also present overnight. CRP was elevated at 157, ESR 2. Patient was started on IV vancomycin and Zosyn and blood cultures obtained. I was asked see the patient for evaluation of a left septic hip. I had my examination, patient was sitting comfortably in a chair. He states his left hip pain is slightly improved at time of my examination compared to this morning and certainly better than overnight. He states he feels warm, but denies any feelings of generalized illness. Denies chills, nausea vomiting, chest pain, cough, congestion, headache, dysuria or shortness of breath. 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 Kidney disease Lesion of sciatic nerve Lung disease Meniscus degeneration Nephrolithiasis Obesity Obstructive sleep apnea Osteoarthritis, knee 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) 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 Over 63 years old Palpitations Polycythemia Precordial chest pain Pulmonary embolism (06/21/18) Restless legs syndrome Right elbow pain Right knee pain Rupture of right biceps tendon Sciatica Scoliosis of thoracic spine Secondary polycythemia Segmental and somatic dysfunction of cervical region Segmental and somatic dysfunction of cervical region Segmental and somatic dysfunction of lumbar region Segmental and somatic dysfunction of lumbar region Segmental and somatic dysfunction of pelvic region Segmental and somatic dysfunction of thoracic region Segmental and somatic dysfunction of thoracic region Shortness of breath Thyroid disease Tinnitus of both ears Trochanteric bursitis, left hip Type II diabetes mellitus Home Medications aspirin 81 mg chewable tablet 81 mg PO DAILY@0800 ANTIPLATELET 03/17/16 [History Last Taken 06/21/18 T] hydroxyurea 500 mg capsule 500 mg PO DAILY 12/17/18 [History Last Taken Unknown] lactobacillus combination no.8 3 billion cell capsule (Adult Probiotic) 3,000 mmu cells PO DAILY 02/08/21 [History Last Taken Unknown] multivitamin 1 tab PO DAILY 02/08/21 [History Last Taken Unknown] omega-3 fatty acids 1,000 mg capsule (Fish Oil Concentrate) 1,000 mg PO DAILY 02/08/21 [History Last Taken Unknown] metoprolol succinate 25 mg tablet,extended release 24 hr 25 mg PO QHS BLOOD PRESSURE #90 tabs 09/24/21 [Rx Last Taken Unknown] furosemide 40 mg tablet 40 mg PO DAILY LEG edema #90 tabs 03/25/22 [Rx Last Taken Unknown] gabapentin 100 mg capsule 100 mg PO .COMPLEX #450 caps 06/11/22 [Rx Last Taken Unknown] glipizide 5 mg tablet, extended release 24 hr 5 mg PO DAILY #90 tabs 07/02/22 [Rx Last Taken Unknown] valsartan 80 mg-hydrochlorothiazide 12.5 mg tablet 1 tab PO DAILY #90 tabs 07/16/22 [Rx Last Taken Unknown] hydrocodone-acetaminophen 5-325mg 5mg-325mg 1 tab PO Q8H PRN Pain 08/03/22 [History Last Taken 08/03/22] levothyroxine 200 mcg tablet 225 mcg PO DAILY thyroid 08/03/22 [History Last Taken Unknown] metformin 1,000 mg tablet 1,000 mg PO 1000,1500 DIABETES 08/03/22 [History Last Taken Unknown] rosuvastatin 10 mg tablet 10 mg PO QHS 08/03/22 [History Last Taken Unknown] Allergy/AdvReac Type Severity Reaction Status Date / Time sitagliptin [From ] Allergy Severe Rash Verified 08/03/22 11:40 theophylline Allergy Unknown Verified 08/03/22 11:40 Family History Mother CAD (coronary artery disease) Breast cancer Diabetes Surgical History H/O lithotripsy History of coronary artery stent placement (05/24/11) History of left heart catheterization (06/19/18) History of partial nephrectomy History of tonsillectomy Hx of cataract surgery L eye surgery partial nephrectomy for renal cell cancer Social History (Updated 08/03/22 @ 16:[address] Shannan Acosta MD) household members: spouse Smoking Status: Former smoker quit date: 09/29/84 pack-years: 17 how long ago did patient quit smokin, 1.5/d second hand exposure: Yes alcohol intake: never substance use type: does not use ROS ROS Narrative 12 point review of systems obtained, negative unless otherwise noted in HPI. Vital Signs Vital Signs Vital Signs: 08/03/22 11:40 08/03/22 14:38 08/03/22 16:25 Temperature 98.4 F 98.4 F Temperature Source Oral Oral Pulse Rate 76 88 88 Pulse Strength Respiratory Rate 18 18 18 Respiratory Effort Respiratory Depth Respiratory Pattern Blood Pressure 154/78 H 158/84 H 158/84 H Blood Pressure Mean 103 108 108 Blood Pressure Source Blood Pressure Position Blood Pressure Location Pulse Ox 97 98 98 Oxygen Delivery Method Room Air Room Air Room Air 08/03/22 17:36 08/03/22 19:08 08/03/22 21:56 Temperature 97.8 F 99 F Temperature Source Oral Oral Pulse Rate 96 118 H Pulse Strength Respiratory Rate 22 H 18 Respiratory Effort Respiratory Depth Respiratory Pattern Blood Pressure 143/62 H 150/79 H Blood Pressure Mean 89 102 Blood Pressure Source Monitor Monitor Blood Pressure Position Sitting Sitting Blood Pressure Location Left Arm Right Arm Pulse Ox 97 96 96 Oxygen Delivery Method Room Air Room Air Room Air 08/03/22 22:04 08/03/22 23:39 08/03/22 22:00 Temperature 100 F H Temperature Source Oral Pulse Rate 118 H 128 H Pulse Strength Normal (2+) Respiratory Rate 20 H Respiratory Effort Respiratory Depth Respiratory Pattern Blood Pressure 150/79 H 157/80 H Blood Pressure Mean 105 Blood Pressure Source Monitor Blood Pressure Position Sitting Blood Pressure Location Left Arm Pulse Ox 92 Oxygen Delivery Method Room Air 08/03/22 22:00 08/04/22 01:34 EDT 08/04/22 01:28 EST Temperature 103.2 F H 100.5 F H Temperature Source Oral Axillary Pulse Rate 118 H 145 H 126 H Pulse Strength Respiratory Rate 36 H 18 Respiratory Effort Normal Non-Labored Respiratory Depth Normal Respiratory Pattern Normal Blood Pressure 161/85 H 142/86 H Blood Pressure Mean 110 104 Blood Pressure Source Monitor Monitor Blood Pressure Position Semi-Fowlers Semi-Fowlers Blood Pressure Location Left Forearm Left Forearm Pulse Ox 95 96 Oxygen Delivery Method Room Air Room Air CPAP 08/04/22 01:30 EST 08/04/22 02:51 08/04/22 03:56 Temperature 100.6 F H 99.6 F H Temperature Source Axillary Axillary Pulse Rate 95 Pulse Strength Respiratory Rate 18 Respiratory Effort Short of Breath Labored Respiratory Depth Shallow Respiratory Pattern Tachypnea Blood Pressure 132/75 H Blood Pressure Mean 94 Blood Pressure Source Monitor Blood Pressure Position Sitting Blood Pressure Location Left Forearm Pulse Ox 97 Oxygen Delivery Method Room Air CPAP 08/04/22 04:00 08/04/22 04:00 08/04/22 05:40 Temperature 99.6 F H 98.7 F Temperature Source Axillary Oral Pulse Rate 95 120 H Pulse Strength Respiratory Rate 18 20 H Respiratory Effort Normal Non-Labored Respiratory Depth Normal Respiratory Pattern Normal Blood Pressure 132/75 H 152/82 H Blood Pressure Mean 94 105 Blood Pressure Source Monitor Blood Pressure Position Semi-Fowlers Blood Pressure Location Left Arm Pulse Ox 97 94 Oxygen Delivery Method CPAP CPAP Room Air 08/04/22 06:45 08/04/22 08:09 08/04/22 05:40 Temperature 99.1 F Temperature Source Oral Pulse Rate 106 H Pulse Strength Respiratory Rate 26 H Respiratory Effort Normal Non-Labored Respiratory Depth Normal Respiratory Pattern Normal Blood Pressure 135/67 H Blood Pressure Mean 89 Blood Pressure Source Monitor Blood Pressure Position Sitting Blood Pressure Location Left Forearm Pulse Ox 94 94 Oxygen Delivery Method Room Air Room Air Room Air 08/04/22 08:20 08/04/22 08:20 08/04/22 09:10 Temperature 98 F 99.2 F H Temperature Source Oral Oral Pulse Rate 123 H 123 H 101 H Pulse Strength Respiratory Rate 30 H 30 H 28 H Respiratory Effort Labored Respiratory Depth Normal Respiratory Pattern Normal Blood Pressure 146/84 H 107/64 Blood Pressure Mean 104 78 Blood Pressure Source Monitor Monitor Blood Pressure Position Semi-Fowlers Sitting Blood Pressure Location Left Forearm Left Forearm Pulse Ox 95 95 95 Oxygen Delivery Method Room Air Room Air Room Air 08/04/22 09:10 08/04/22 10:23 Temperature 99.2 F H Temperature Source Oral Pulse Rate 101 H Pulse Strength Normal (2+) Respiratory Rate 28 H Respiratory Effort Respiratory Depth Respiratory Pattern Blood Pressure 107/64 Blood Pressure Mean 78 Blood Pressure Source Blood Pressure Position Blood Pressure Location Pulse Ox 95 Oxygen Delivery Method Room Air Weight Weight: 264 lb Body Mass Index (BMI) 45.3 Physical Exam Narrative General -A&Ox3, NAD, appears stated age. Respiratory -normal work of breathing, no intercostal retractions. CV -pulses regular, brisk capillary refill ?4 limbs. Abdomen-soft, nontender, nondistended. No guarding, rigidity, rebound tenderness. Musculoskeletal/neurologic -full range of motion nontender throughout bilateral upper extremities, right lower extremity with full sensation and strength in all dermatomes and myotomes. No midline cervical tenderness. Left lower extremity-skin overlying the hip is unremarkable with no erythema or drainage noted. There is no palpable fluctuance. The skin is not warm to touch. Patient tolerates short arc range of motion of the left hip without obvious signs of distress or pain. Brisk capillary refill. Sensation intact light touch L3-S1 dermatomes. DF, PF, EHL intact. DP, PT 2+. Pelvis is stable, nontender. Skin is intact without lacerations, abrasions. Lab / Micro Data Result Diagrams: 08/04/22 06:23 08/04/22 06:23 Labs: Laboratory Results - last 24 hr 08/03/22 13:15: WBC 15.6 H, RBC 4.45 L, Hgb 14.7, Hct 43.0, MCV 96.6 H, MCH 33.0 H, MCHC 34.2, RDW Std Deviation 45.3 H, RDW Coeff of Jonna 12.8, Plt Count 200, MPV 9.9, Immature Gran % (Auto) 0.900, Neut % (Auto) 86.1 H, Lymph % (Auto) 5.3 L, [place] % (Auto) 7.4, Eos % (Auto) 0.1, Baso % (Auto) 0.2, Absolute Neuts (auto) 13.4 H, Absolute Lymphs (auto) 0.82 L, Nucleated RBC % 0 08/03/22 13:15: Sodium 132 L, Potassium 4.1, Chloride 98, Carbon Dioxide 25.0, Anion Gap 9, BUN 22 H, Creatinine 1.02, Estim Creat Clear Calc 66.13, Est GFR (MDRD) Af Amer 93, Est GFR (MDRD) Non-Af 77, BUN/Creatinine Ratio 21.6 H, Glucose 245 H, Calcium 9.7 08/03/22 22:01: POC Glucose 224 H 08/04/22 00:50: C-React Prot Ext Range 157.00 H 08/04/22 00:50: ESR 2 08/04/22 01:20 EST: Lactic Acid 3.5 H* 08/04/22 01:41 EST: POC Glucose 259 H 08/04/22 01:45 EST: Urine Color Yellow, Urine Clarity Clear, Urine pH 5.0, Ur Specific [place] 1.020, Urine Protein 100 H, Urine Glucose (UA) 250 H, Urine Ketones 50 H, Urine Occult Blood 50 H, Urine Nitrite Negative, Urine Bilirubin Negative, Urine Urobilinogen Normal, Ur Leukocyte Esterase Negative, Urine RBC 0-5 SEEN, Urine WBC 0 SEEN, Ur Squamous Epith Cells 0 SEEN, Urine Bacteria RARE, Urine Mucus RARE 08/04/22 05:30: Lactic Acid 6.8 H* 08/04/22 05:55: POC Glucose 236 H 08/04/22 06:23: WBC 12.0 H, RBC 4.26 L, Hgb 14.0, Hct 41.3, MCV 96.9 H, MCH 32.9 H, MCHC 33.9, RDW Std Deviation 45.5 H, RDW Coeff of [place] 12.9, Plt Count 103 L, MPV 10.4, Neut % (Auto) Not Reportable, Absolute Neuts (auto) 11.3 H, Absolute Lymphs (auto) 0.36 L, Total Counted 100, Neutrophils % (Manual) 91 H, Band Neutrophils % 3, Lymphocytes % (Manual) 3 L, Monocytes % (Manual) 2, Myelocytes % 1 H, Diff Path Review May foll Dohle Bodies 3+, Platelet Estimate ADEQUATE, RBC Morphology NORM C+C 08/04/22 06:23: Sodium 130 L, Potassium 4.0, Chloride 94 L, Carbon Dioxide 20.0 L, Anion Gap 16 H, BUN 23 H, Creatinine 1.20, Estim Creat Clear Calc 48.65, Est GFR (MDRD) Af Amer 77, Est GFR (MDRD) Non-Af 64, BUN/Creatinine Ratio 19.2, Glucose 245 H, Calcium 8.8, Total Bilirubin 1.10 H, AST 18, ALT 35, Alkaline Phosphatase 62, Total Protein 7.0, Albumin 3.3, Globulin 3.7, Albumin/Globulin Ratio 0.9 08/04/22 06:23: B-Natriuretic Peptide 116.3 H Micro: Microbiology 08/04/22 01:18 EST Nasal Secretion SARS-CoV-2 & FLU Antigen (Rapid) - Final Radiology Impression Pelvis CT 08/03/22 12:59 IMPRESSION: 1. Degenerative arthrosis of both hips as described above. 2. No demonstrated acute fracture or dislocation. 3. Diverticulosis without evidence of acute diverticulitis. 4. Prominent prostate. Electronically Signed: Vishal Patel MD at 15:50 EDT , Chest X-Ray 08/04/22 01:00 EST IMPRESSION: Borderline cardiomegaly and mild pulmonary vascular congestion. Electronically Signed: Kailey Grider MD at 1:28 EDT , Assessment & Plan Assessment/Plan (1) Hip pain: PLAN: Concern for left hip as source of sepsis. At time my examination, exam is not classic for septic arthritis. I encouraged primary for continued work-up of other possible sources. I would recommend a left hip aspiration for analysis of cell count, gram stain with culture, crystal analysis with Interventional Radiology. Especially in light of his claustrophobia, MRI is unlikely to be of clinical significance at this point. Certainly can reevaluate this as his clinical condition progresses. Plan of care discussed with Dr. Duran. Will follow.
[2022-08-04] MEDS: 0.9% Normal Saline 1,000 ML 999 ML IV (10:51)
[2022-08-04] MEDS: 0.9% Saline Lock 10 ML Syringe IV ×2 (10:55→21:31)
[2022-08-04] MEDS: Lidocaine Jelly 2% 20 ML Syringe (URO-JET) 1 APPLIC TOPICAL (10:56)
[2022-08-04] MEDS: Lidocaine 5% Patch 2 PATCH TOPICAL (11:03)
[2022-08-04] MEDS: Hydroxyurea 500 MG Capsule PO (11:05)
[2022-08-04] MEDS: Enoxaparin 40 MG/0.4 ML Syringe SC (11:12)
[2022-08-04 11:40] LABS: Bedside Glucose 225 mg/dL (74-106)
--- NOTE | 2022-08-04 11:52 | RAD_ITS ---
STUDY: X-RAY CHEST REASON FOR EXAM: Male, 67 years old. SOB TECHNIQUE: Single AP portable view of the chest. COMPARISON: Earlier today FINDINGS: EKG leads overlie the chest. Stable elevation of the right hemidiaphragm Chronic interstitial changes in both lung pierce without a superimposed process or significant interval change Normal size heart. Normal mediastinum and seilna. Normal visualized pulmonary arteries. Normal visualized aortic arch and descending thoracic aorta. There are diffuse degenerative changes of the visualized thoracic spine. Normal visualized ribs, clavicles, and shoulders. There is no demonstrated abnormality of the visualized soft tissue structures of the upper abdomen. RAD/Chest 1 View (Portable) IMPRESSION: No interval change Electronically Signed: Dell Whitaker MD at 14:23 EST ,
[2022-08-04 12:39] LABS: D-Dimer Quantitative (DVT/PE) 1.46 FEU/ug/m (0.27-0.49); Lactic Acid 1.9 mmol/L (0.4-1.9)
--- NOTE | 2022-08-04 13:46 | VDLE_ITS ---
Reason For Study: D-Dimer Elevated RIGHT LEFT GSV is normal. GSV is normal. CFV is compressible, spontaneous, phasic, CFV is compressible, spontaneous, phasic, competent and demonstrates normal competent, and demonstrates normal augmentation. augmentation. FV is compressible, spontaneous, phasic, FV is compressible, spontaneous, phasic, competent and demonstrates normal competent and demonstrates normal augmentation. augmentation. POP V is compressible, spontaneous, phasic, POP V is compressible, spontaneous, phasic, competent and demonstrates normal competent and demonstrates normal augmentation. augmentation. T/P Trunk is compressible. T/P Trunk is compressible. PTV is compressible. PTV is compressible. RT PerV is compressible. LT PerV is compressible. Procedure This is a venous duplex using B-mode, color flow and spectral Doppler. Exam performed portable in ICU/CCU. The exam was diagnostic. A preliminary report was called and/or faxed to ICU Charge. VL/Venous Duplex US - Elia Extrem Interpretation Summary Deep veins of the bilateral lower extremities are patent and compressible segme ntally. There is no evidence of bilateral lower extremity deep vein thrombosis. The bilateral great saphenous veins appear patent and compressible segmentally. Ordering Physician: Laurie Duran Referring Physician: Lauren Quick M.D. Performed By: Castro Phillip RVT
[2022-08-04 18:10] LABS: Bedside Glucose 191 mg/dL (74-106)
[2022-08-04] MEDS: Atorvastatin Calcium 20 MG Tablet PO (21:33)
[2022-08-04 22:10] LABS: Bedside Glucose 164 mg/dL (74-106)
[2022-08-05] VITALS (36 sets, daily range): BP systolic 90–157; BP diastolic 64–86; PULSE 67–103; RESP 14–32; TEMP 37.2–39.6; O2SAT 92–100
[2022-08-05] MEDS: Ketorolac 15 MG/ML Vial IV (01:56)
[2022-08-05] MEDS: Acetaminophen 325 MG Tablet 650 MG PO ×5 (01:58→21:11)
[2022-08-05 03:44] LABS: Absolute Lymphocyte Count 0.21 X10^3/uL (0.83-4.51); Absolute Neutrophil Count 5.3 X10^3/uL (2.0-7.7); Basophil# 0.02 X10^3/uL; Basophil% 0.3 % (0-1); Eosinophil# 0.03 X10^3/uL; Eosinophils% 0.5 % (0-5); Hematocrit 35.2 % (40-54); Hemoglobin 12.1 g/dL (13.0-16.5); Lymphocyte # 0.21 X10^3/ul (0.83-4.51); Lymphocyte % 3.6 % (19-41); Mean Corp Hgb Conc 34.4 g/dL (32-36); Mean Corpuscular Hgb 33.2 pg (27.0-32.0); Mean Corpuscular Volume 96.7 fL (80-94); Mean Platelet Vol. 9.5 fl (6.2-12.0); Monocyte# 0.21 X10^3/uL; Monocyte% 3.6 % (0-10); NRBC Flagged by Analyzer 0 % (0-5); Neutrophil # 5.31 X10^3/uL (2.7-7.7); Neutrophil % 91.3 % (47-70); POSITIVE DIFFERENTIAL YES; POSITIVE MORPHOLOGY YES; Platelet Count 108 K/mm3 (150-450); RBC Distribution Width CV 12.9 % (11.6-14.6); RBC Distribution Width SD 45.9 fl (35.1-43.9); Red Blood Count 3.64 M/mm3 (4.6-6.2); White Blood Count 5.8 K/mm3 (4.4-11.0)
[2022-08-05 03:45] LABS: Differential Indicated SCAN CRITERIA MET
[2022-08-05 04:03] LABS: ALB/GLOB Ratio 0.7 RATIO (0.9-2.4); AST(SGOT) 25 U/L (15-37); Alanine Aminotransfer ALT/SGPT 31 U/L (16-61); Albumin, Serum 2.1 g/dL (3.2-5.0); Alkaline Phosphatase 42 U/L (45-117); Anion Gap 8 (5-15); BUN 22 mg/dL (7-18); BUN/Creat Ratio 29.7 RATIO (10-20); Calcium,Total 7.2 mg/dL (8.5-10.1); Chloride 109 mmol/L (98-107); Creatinine, Serum 0.74 mg/dL (0.70-1.30); EST Glomerular Filtration Rate 111 mL/min (>60); Est Glom Filt Rate - Afr Amer 135 mL/min (>60); Estimated Creatinine Clearance 58.38 ml/min; Globulin 3.1 g/dL (2.2-4.2); Glucose 149 mg/dL (74-106); Potassium 3.1 mmol/L (3.5-5.1); Protein, Total 5.2 g/dL (6.4-8.2); Sodium Level 138 mmol/L (136-145)
[2022-08-05 04:11] LABS: Differential Comment SCANNED
[2022-08-05] MEDS: Levothyroxine 75 MCG Tablet 225 MCG PO (05:40)
[2022-08-05] MEDS: 0.9% Normal Saline 1,000 ML 100 ML IV ×2 (06:35→17:12)
[2022-08-05] MEDS: Potassium Chloride Oral Tablet 20 MEQ 40 MEQ PO (06:41)
[2022-08-05] MEDS: Insulin Lispro 100 UNIT/ML INSULN.PEN SC ×3 (06:45→21:01)
--- NOTE | 2022-08-05 07:00 | PCM.PN.ORT ---
Subjective Subjective Patient seen and examined. Denies any new complaints. Patient on CPAP this morning which she states he wears at home for RHINA. Denies any feelings of shortness of breath this morning. Reports fevers overnight, but denies any chills, denies nausea or vomiting, chest pain or shortness of breath. States his left hip pain is continuing to improve. Denies any feelings of generalized illness. Denies any cough or congestion, dysuria. Objective Data Objective Data Vital Signs: Vital Signs Temp Pulse Resp BP Pulse Ox O2 Del Method O2 Flow Rate 99.0 F 67 16 113/64 96 CPAP 2 08/05/22 06:00 08/05/22 06:00 08/05/22 06:00 08/05/22 06:00 08/05/22 06:00 08/05/22 06:00 08/04/22 12:30 FiO2 21 08/05/22 06:00 Oxygen Flow Rate (L/min) 2 Oxygen Delivery Method CPAP Weight: 280 lb 3.32 oz Body Mass Index (BMI) 45.3 Intake & Output: Intake and Output for Last 24 Hours 08/04/22 08/04/22 08/05/22 00:59 23:59 23:59 Intake Total 2137.83 / 2137.83 Output Total 800 / 800 Balance 1337.83 / 1337.83 Lab / Micro Data Result Diagrams: 08/05/22 03:35 08/05/22 03:35 Labs: Laboratory Results - last 24 hr 08/04/22 05:55: POC Glucose 236 H 08/04/22 06:23: WBC 12.0 H, RBC 4.26 L, Hgb 14.0, Hct 41.3, MCV 96.9 H, MCH 32.9 H, MCHC 33.9, RDW Std Deviation 45.5 H, RDW Coeff of Jonna 12.9, Plt Count 103 L, MPV 10.4, Neut % (Auto) Not Reportable, Absolute Neuts (auto) 11.3 H, Absolute Lymphs (auto) 0.36 L, Total Counted 100, Neutrophils % (Manual) 91 H, Band Neutrophils % 3, Lymphocytes % (Manual) 3 L, Monocytes % (Manual) 2, Myelocytes % 1 H, Diff Path Review May foll, Dohle Bodies 3+, Platelet Estimate ADEQUATE, RBC Morphology NORM C+C 08/04/22 06:23: Sodium 130 L, Potassium 4.0, Chloride 94 L, Carbon Dioxide 20.0 L, Anion Gap 16 H, BUN 23 H, Creatinine 1.20, Estim Creat Clear Calc 48.65, Est GFR (MDRD) Af Amer 77, Est GFR (MDRD) Non-Af 64, BUN/Creatinine Ratio 19.2, Glucose 245 H, Calcium 8.8, Total Bilirubin 1.10 H, AST 18, ALT 35, Alkaline Phosphatase 62, Total Protein 7.0, Albumin 3.3, Globulin 3.7, Albumin/Globulin Ratio 0.9 08/04/22 06:23: B-Natriuretic Peptide 116.3 H 08/04/22 11:23: POC Glucose 225 H 08/04/22 12:00: D-Dimer Quant (PE/DVT) 1.46 H* 08/04/22 12:00: Lactic Acid 1.9 08/04/22 17:48: POC Glucose 191 H 08/04/22 21:29: POC Glucose 164 H 08/05/22 03:35: Sodium 138, Potassium 3.1 L, Chloride 109 H, Carbon Dioxide 21.0, Anion Gap 8, BUN 22 H, Creatinine 0.74, Estim Creat Clear Calc 58.38, Est GFR (MDRD) Af Amer 135, Est GFR (MDRD) Non-Af 111, BUN/Creatinine Ratio 29.7 H, Glucose 149 H, Calcium 7.2 L, Total Bilirubin 1.10 H, AST 25, ALT 31, Alkaline Phosphatase 42 L, Total Protein 5.2 L, Albumin 2.1 L, Globulin 3.1, Albumin/Globulin Ratio 0.7 L 08/05/22 03:35: WBC 5.8, RBC 3.64 L, Hgb 12.1 L, Hct 35.2 L, MCV 96.7 H, MCH 33.2 H, MCHC 34.4, RDW Std Deviation 45.9 H, RDW Coeff of Jonna 12.9, Plt Count 108 L, MPV 9.5, Immature Gran % (Auto) 0.700, Neut % (Auto) 91.3 H, Lymph % (Auto) 3.6 L, [place] % (Auto) 3.6, Eos % (Auto) 0.5, Baso % (Auto) 0.3, Absolute Neuts (auto) 5.3, Absolute Lymphs (auto) 0.21 L, Nucleated RBC % 0, Differential Comment SCANNED Micro: Microbiology 08/04/22 01:30 EST Blood Culture (Wb) - Left Forearm Blood Culture - Preliminary 08/04/22 00:50 Blood Culture (Wb) - Right Hand Bacteria Detection (PCR) - Final Meth. resistant Staph. aureus 08/04/22 00:50 Blood Culture (Wb) - Right Hand Blood Culture - Preliminary 08/04/22 01:18 EST Nasal Secretion SARS-CoV-2 & FLU Antigen (Rapid) - Final Radiography Diagnostic Testing: Radiology Impression Chest X-Ray 08/04/22 08:47 IMPRESSION: No acute pulmonary process Electronically Signed: Dell Whitaker MD at 10:38 EST , Chest X-Ray 08/04/22 11:52 IMPRESSION: No interval change Electronically Signed: Dell Whitaker MD at 14:23 EST , Physical Exam Narrative General -A&Ox3, NAD, appears stated age. Respiratory -normal work of breathing, no intercostal retractions. CV -pulses regular, brisk capillary refill ?4 limbs. Abdomen-soft, nontender, nondistended. No guarding, rigidity, rebound tenderness. Musculoskeletal/neurologic -full range of motion nontender throughout bilateral upper extremities, right lower extremity with full sensation and strength in all dermatomes and myotomes. No midline cervical tenderness. Left lower extremity-skin overlying the hip is unremarkable with no erythema or drainage noted. There is no palpable fluctuance. The skin is not warm to touch. Patient tolerates short arc range of motion of the left hip without obvious signs of distress or pain. Brisk capillary refill. Sensation intact light touch L3-S1 dermatomes. DF, PF, EHL intact. DP, PT 2+. Pelvis is stable, nontender. Skin is intact without lacerations, abrasions. Assessment & Plan Assessment/Plan (1) Hip pain: PLAN: Left hip pain continues to improve, which would be atypical of a septic arthritis. Blood cultures positive for MRSA. Without any other clear source, left hip aspiration is recommended with cell count, gram stain and culture, and crystal analysis. Interventional radiology consult placed. Continue antibiotics/sepsis management per primary. Further recommendations pending aspiration results.
[2022-08-05 07:06] LABS: Bedside Glucose 161 mg/dL (74-106)
[2022-08-05] MEDS: Lidocaine 5% Patch 2 PATCH TOPICAL (08:04)
[2022-08-05] MEDS: oxyCODONE 5 MG Tablet PO ×3 (08:04→21:11)
[2022-08-05] MEDS: Hydroxyurea 500 MG Capsule PO (08:05)
[2022-08-05] MEDS: Aspirin 81 MG TAB.CHEW PO (08:09)
[2022-08-05] MEDS: Gabapentin 300 MG Capsule PO ×3 (08:09→16:07)
--- NOTE | 2022-08-05 09:38 | CON.PCM.CC_ITS ---
Assessment & Plan Assessment/Plan (1) Sepsis associated hypotension: (2) Obstructive sleep apnea: (3) COPD (chronic obstructive pulmonary disease): QUALIFIERS: COPD type: unspecified COPD Qualified Code(s): J44.9 - Chronic obstructive pulmonary disease, unspecified PLAN: Plan RECOMMENDATIONS: 1. Continue antibiotics pending culture results. Possibly discontinue Zosyn tomorrow 2. Await results of arthrocentesis 3. Potential need for STEFANIA 4. Appreciate orthopedic input. Await ID input 5. No indication for systemic steroids from a pulmonary perspective 6. Continue CPAP with sleep 7. Okay to leave the intensive care unit from my perspective IMPRESSIONS: 1. Sepsis secondary to MRSA secondary to possible infected hip joint Endorgan damage demonstrated by metabolic encephalopathy. Patient is growing MRSA out of both blood culture bottles. Unclear source at this time. Patient is having significant hip pain on the left. Arthrocentesis has been ordered and IR is aware. If findings not consistent with septic joint, may need a STEFANIA to evaluate for endocarditis. Patient is currently on vancomycin and Zosyn. Likely okay to discontinue Zosyn if cultures remain relatively negative for other organisms of 48 hours. Patient appears to be responding to therapy well, but recurrence is expected if primary source cannot be elucidated. Patient appears to be hemodynamically stable. Likely okay to leave the intensi ve care unit from my perspective. 2. Metabolic encephalopathy Clinical suspicion for delirium secondary to problem #1. Patient is much improved after initiation of antibiotics and correction of hemodynamics. We will continue to monitor closely. Would avoid Ativan if possible. 3. Chronic COPD/RHINA Patient can continue on baseline CPAP therapy. No indication of acute COPD exacerbation by history. Okay to continue with therapeutic substitution for aerosolized medications. Patient does have a history of VTE in the past and is not on chronic anticoagulation. We will have to mobilize to soon as possible. 4. Hypothyroidism/morbid obesity/history of renal cell cancer/hypertension/morbid obesity/type 2 diabetes mellitus/CAD Complicates care, management, recovery and prognosis. Likely okay to continue with baseline medications for now. We will have to watch renal function closely as patient is at risk for acute kidney injury. Patient does have a history of a partial nephrectomy in the past. Low clinical suspicion for hyperthyroidism leading to febrile nature. HPI Consult Data Date of Consult: 08/05/22 HPI Narrative Reason for Consultation: Hypotension HPI Narrative: DALE CAMPBELL is a 67 M, with past medical history listed below and well-known to me from the outpatient office, who presents to [facility] on 08/03/2022 secondary to left lower extremity pain and difficulty ambulating. Patient reportedly recently had injections done in both hips using an anterior approach by Dr. Solis. Patient reported progressive pain to the point that he can only pivot and was unable to walk without assistance. Patient described the pain as worse than the preinjection. Patient did not have any systemic signs or symptoms such as fever, chills, nausea or vomiting at that time. Patient did take a [place] with little effect. In the ER, patient was afebrile and saturating well on room air. Patient was hypertensive at that time. Laboratory data showed a white blood cell count of 15.6 with a hemoglobin of 14.7. Glucose was elevated to 45 and bicarbonate was 25. Otherwise chemistries were unremarkable. A CT of the pelvis showed degenerative arthrosis of both hips, but no associated fracture or dislocation. Patient did have diverticulosis without signs of acute diverticulitis. Patient was admitted for intractable pain. Patient received medications for pain and ambulation. Following admission, patient developed a fever of 103.2 ?F leading to panculture and initiation of vancomycin and Zosyn. Patient also started to have significant confusion. Attempts at obtaining an MRI have been unsuccessful, so patient was admitted to the intensive care unit for further evaluation. Orthopedics was consulted. Since being in the intensive care unit, patient's mentation has improved significantly. Patient did use CPAP overnight, but is on this normally. Patient continues to have hip pain, but feels that has improved with antibiotics. Patient's blood cultures have come back positive for MRSA in both sets. Orthopedics is recommending a tap to dictate further care. Patient's blood pressure has remained stable. Patient is not reporting any respiratory symptoms at this time. Review of systems otherwise negative from a constitutional, HEENT, respiratory, cardiovascular, GI, genitourinary, musculoskeletal, skin, neurologic, psychiatric and hematologic system unless stated above. [facility] Medical History Anemia Asthma Atherosclerotic heart disease of [place] coronary artery without angina pectoris Back pain Benign prostatic hypertrophy COPD (chronic obstructive pulmonary disease) DDD (degenerative disc disease), cervical Degeneration of intervertebral disc of lumbar region Degenerative disc disease, cervical Depression Diabetes CLARK (dyspnea on exertion) Essential (primary) hypertension Hearing difficulty of both ears History of renal cell cancer Hyperlipidemia Hypothyroidism Instability of medial collateral ligament of knee Kidney disease Lesion of sciatic nerve Lung disease Meniscus degeneration Nephrolithiasis Obesity Obstructive sleep apnea Osteoarthritis, knee Other halfway (current) 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 Over 63 years old Palpitations Polycythemia Precordial chest pain Pulmonary embolism (06/21/18) Restless legs syndrome Right elbow pain Right knee pain Rupture of right biceps tendon Sciatica Scoliosis of thoracic spine Secondary polycythemia Segmental and somatic dysfunction of cervical region Segmental and somatic dysfunction of cervical region Segmental and somatic dysfunction of lumbar region Segmental and somatic dysfunction of lumbar region Segmental and somatic dysfunction of pelvic region Segmental and somatic dysfunction of thoracic region Segmental and somatic dysfunction of thoracic region Shortness of breath Thyroid disease Tinnitus of both ears Trochanteric bursitis, left hip Type II diabetes mellitus Home Medications aspirin 81 mg chewable tablet 81 mg PO DAILY@0800 ANTIPLATELET 03/17/16 [History Last Taken 06/21/18 T] hydroxyurea 500 mg capsule 500 mg PO DAILY 12/17/18 [History Last Taken Unknown] lactobacillus combination no.8 3 billion cell capsule (Adult Probiotic) 3,000 mmu cells PO DAILY 02/08/21 [History Last Taken Unknown] multivitamin 1 tab PO DAILY 02/08/21 [History Last Taken Unknown] omega-3 fatty acids 1,000 mg capsule (Fish Oil Concentrate) 1,000 mg PO DAILY 02/08/21 [History Last Taken Unknown] metoprolol succinate 25 mg tablet,extended release 24 hr 25 mg PO QHS BLOOD PRESSURE #90 tabs 09/24/21 [Rx Last Taken Unknown] furosemide 40 mg tablet 40 mg PO DAILY LEG edema #90 tabs 03/25/22 [Rx Last Taken Unknown] gabapentin 100 mg capsule 100 mg PO .COMPLEX #450 caps 06/11/22 [Rx Last Taken Unknown] glipizide 5 mg tablet, extended release 24 hr 5 mg PO DAILY #90 tabs 07/02/22 [Rx Last Taken Unknown] valsartan 80 mg-hydrochlorothiazide 12.5 mg tablet 1 tab PO DAILY #90 tabs 07/16/22 [Rx Last Taken Unknown] hydrocodone-acetaminophen 5-325mg 5mg-325mg 1 tab PO Q8H PRN Pain 08/03/22 [History Last Taken 08/03/22] levothyroxine 200 mcg tablet 225 mcg PO DAILY thyroid 08/03/22 [History Last Taken Unknown] metformin 1,000 mg tablet 1,000 mg PO 1000,1500 DIABETES 08/03/22 [History Last Taken Unknown] rosuvastatin 10 mg tablet 10 mg PO QHS 08/03/22 [History Last Taken Unknown] Allergy/AdvReac Type Severity Reaction Status Date / Time sitagliptin [From ] Allergy Severe Rash Verified 08/03/22 11:40 theophylline Allergy Unknown Verified 08/03/22 11:40 Family History Mother CAD (coronary artery disease) Breast cancer Diabetes Family History other Surgical History H/O lithotripsy History of coronary artery stent placement (05/24/11) History of left heart catheterization (06/19/18) History of partial nephrectomy History of tonsillectomy Hx of cataract surgery L eye surgery partial nephrectomy for renal cell cancer Social History household members: spouse Smoking Status: Former smoker quit date: 09/29/84 pack-years: 17 how long ago did patient quit smokin, 1.5/d second hand exposure: Yes alcohol intake: never substance use type: does not use ROS ROS Narrative See HPI Physical Exam Const alert, oriented x3 and no apparent distress Constitutional Narrative: No conversational dyspnea General Appearance: cooperative HEENT normocephalic and head/scalp atraumatic Eyes PERRL, EOMs intact bilaterally and conjunctivae normal Eyes Narrative: Glasses in place Neck full ROM and supple Chest Chest: abnormal inspection of the chest increased A-P diameter Resp normal respiratory effort Effort and Inspection: able to speak in complete sentences; Negative for actively coughing Auscultation: diminished lung sounds; Negative for rales, rhonchi or wheezes Cardio regular rate, regular rhythm, S1 normal heart sound, S2 normal heart sound, no murmurs, no rub and no gallops GI normal to inspection, nondistended, normoactive bowel sounds Extremity General Extremity: edema; Negative for clubbing Skin no rashes or lesions noted General Skin Exam: venous stasis Neuro oriented x3, CN's II-XII intact bilaterally and moves all extremities Psych cooperative Lab / Micro Data Attestation: I reviewed the patient's lab results. Result Diagrams: 08/05/22 03:35 08/05/22 03:35 Labs: Laboratory Results - last 24 hr 08/04/22 11:23: POC Glucose 225 H 08/04/22 12:00: D-Dimer Quant (PE/DVT) 1.46 H* 08/04/22 12:00: Lactic Acid 1.9 08/04/22 17:48: POC Glucose 191 H 08/04/22 21:29: POC Glucose 164 H 08/05/22 03:35: Sodium 138, Potassium 3.1 L, Chloride 109 H, Carbon Dioxide 21.0, Anion Gap 8, BUN 22 H, Creatinine 0.74, Estim Creat Clear Calc 58.38, Est GFR (MDRD) Af Amer 135, Est GFR (MDRD) Non-Af 111, BUN/Creatinine Ratio 29.7 H, Glucose 149 H, Calcium 7.2 L, Total Bilirubin 1.10 H, AST 25, ALT 31, Alkaline Phosphatase 42 L, Total Protein 5.2 L, Albumin 2.1 L, Globulin 3.1, Albumin/Globulin Ratio 0.7 L 08/05/22 03:35: WBC 5.8, RBC 3.64 L, Hgb 12.1 L, Hct 35.2 L, MCV 96.7 H, MCH 33.2 H, MCHC 34.4, RDW Std Deviation 45.9 H, RDW Coeff of Jonna 12.9, Plt Count 108 L, MPV 9.5, Immature Gran % (Auto) 0.700, Neut % (Auto) 91.3 H, Lymph % (Auto) 3.6 L, Dare % (Auto) 3.6, Eos % (Auto) 0.5, Baso % (Auto) 0.3, Absolute Neuts (auto) 5.3, Absolute Lymphs (auto) 0.21 L, Nucleated RBC % 0, Differential Comment SCANNED 08/05/22 06:44: POC Glucose 161 H Micro: Microbiology 08/04/22 01:30 EST Blood Culture (Wb) - Left Forearm Blood Culture - Final Staphylococcus aureus 08/04/22 00:50 Blood Culture (Wb) - Right Hand Bacteria Detection (PCR) - Final Meth. resistant Staph. aureus 08/04/22 00:50 Blood Culture (Wb) - Right Hand Blood Culture - Preliminary Staphylococcus aureus Radiology Impression Chest X-Ray 08/04/22 08:47 IMPRESSION: No acute pulmonary process Electronically Signed: Dell Whitaker MD at 10:38 EST , Chest X-Ray 08/04/22 11:52 IMPRESSION: No interval change Electronically Signed: Dell Whitaker MD at 14:23 EST , Charges/Coding Visit Charges Inpatient E&M: 81899 Init Hosp L3
--- NOTE | 2022-08-05 10:10 | RAD_ITS ---
PROCEDURE: Left hip aspiration. DATE OF EXAMINATION: 08/05/2022. INDICATION: Male, 67 years old. Left hip pain. Fever. PHYSICIAN: Dr. RAÚL MICHELLE FLUOROSCOPY TIME (if supplied): (48 seconds) minutes/seconds. One image was obtained. CONSENT: The risks, benefits and alternatives to the procedure were explained to the patient, and the patient agreed to the procedure and signed the consent. Left hip puncture was performed with a 22-gauge spinal needle. No fluid was aspirated. 5 cc of a diluted 20 was injected for confirmation. RAD/Fluoro Guided Needle Placement IMPRESSION: Left hip aspiration. No fluid was aspirated. Electronically Signed: Anshul Arboleda MD at 12:39 EST ,
--- NOTE | 2022-08-05 10:38 | CPS ---
Patient placed on CPAP in radiology procedure room for comfort.
[2022-08-05] MEDS: Lidocaine 2% (5ml sdv) 5 ML VIAL.MPF INFILT (10:55)
--- NOTE | 2022-08-05 11:25 | CPS ---
Patient transported back to ICU on CPAP after procedure.
[2022-08-05] MEDS: HYDROmorphone 0.5 MG/0.5 ML SYRINGE IV (11:32)
[2022-08-05 12:00] LABS: Bedside Glucose 144 mg/dL (74-106)
--- NOTE | 2022-08-05 12:14 | CHAPLAIN ---
Type of Pastoral Visit _x__ Initial Visit ___ Follow-up Visit ___ On-call Visit ___ General Patient Visit ___ Spiritual Assessment ___ Family Conference ___ Bereavement ___ Rapid Response ___ Code Blue ___ Other (describe below) Pastoral Care Referral From _x__ Patient ___ Family ___ Nurse ___ Physician ___ See Supervisor ___ Signaling Design Engineer ___ Other (describe below) Sacrament/Intervention _x__ Active listening ___ Anointing ___ Orthodox ___ Bereavement ___ Communion _x__ Rula exploration ___ _x__ Life review _x__ Prayer ___ Reconciliation ___ Sacrament of Sick _x__ Supportive presence ___ Wedding ___ Other (describe below) Pastoral Comments patient is awake and on bi-pap; pt expresses thanks for coming to see him; 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
[2022-08-05 12:38] LABS: Pathologist Review Reviewed
[2022-08-05 13:29] LABS: Vancomycin, Trough Level 8.3 ug/mL (5.0-15.0)
[2022-08-05] MEDS: Metoprolol Tartrate 25 MG Tablet PO ×2 (13:37→21:03)
[2022-08-05] MEDS: Glucerna Shake 120 ML LIQUID PO ×2 (13:37→17:12)
[2022-08-05] MEDS: Senna/Docusate Sodium 1 Tablet 2 TABLET PO (13:42)
--- NOTE | 2022-08-05 14:03 | CON.PCM.ID_ITS ---
Assessment & Plan Assessment/Plan (1) MRSA bacteremia: PLAN: sepsis due to MRSA bactermia, suspected source L hip infection s/p injection. Ortho following. TTE showed no veg, will repeat bcx. Cont vanc, will stop zosyn. Will follow, thank you HPI Consult Data Date of Consult: 08/05/22 HPI Narrative Reason for Consultation: bacteremia HPI Narrative: DALE CAMPBELL, is a 67 M who presented 08/03 with one day severe L hip pain. Had both hips injected 08/01, pain started 08/02. C/o severe pain, worse with movement. Came to ED. Imaging done, seen by ortho. Had fever, chills, (+) bcx. Now on vanc/zosyn, feeling a little better. Full ROS performed and neg except as noted above. 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 Kidney disease Lesion of sciatic nerve Lung disease Meniscus degeneration Nephrolithiasis Obesity Obstructive sleep apnea Osteoarthritis, knee Other intermediate (current) 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 Over 63 years old Palpitations Polycythemia Precordial chest pain Pulmonary embolism (06/21/18) Restless legs syndrome Right elbow pain Right knee pain Rupture of right biceps tendon Sciatica Scoliosis of thoracic spine Secondary polycythemia Segmental and somatic dysfunction of cervical region Segmental and somatic dysfunction of cervical region Segmental and somatic dysfunction of lumbar region Segmental and somatic dysfunction of lumbar region Segmental and somatic dysfunction of pelvic region Segmental and somatic dysfunction of thoracic region Segmental and somatic dysfunction of thoracic region Shortness of breath Thyroid disease Tinnitus of both ears Trochanteric bursitis, left hip Type II diabetes mellitus Home Medications aspirin 81 mg chewable tablet 81 mg PO DAILY@0800 ANTIPLATELET 03/17/16 [History Last Taken 06/21/18 T] hydroxyurea 500 mg capsule 500 mg PO DAILY 12/17/18 [History Last Taken Unknown] lactobacillus combination no.8 3 billion cell capsule (Adult Probiotic) 3,000 mmu cells PO DAILY 02/08/21 [History Last Taken Unknown] multivitamin 1 tab PO DAILY 02/08/21 [History Last Taken Unknown] omega-3 fatty acids 1,000 mg capsule (Fish Oil Concentrate) 1,000 mg PO DAILY 02/08/21 [History Last Taken Unknown] metoprolol succinate 25 mg tablet,extended release 24 hr 25 mg PO QHS BLOOD PRESSURE #90 tabs 09/24/21 [Rx Last Taken Unknown] furosemide 40 mg tablet 40 mg PO DAILY LEG edema #90 tabs 03/25/22 [Rx Last Taken Unknown] gabapentin 100 mg capsule 100 mg PO .COMPLEX #450 caps 06/11/22 [Rx Last Taken Unknown] glipizide 5 mg tablet, extended release 24 hr 5 mg PO DAILY #90 tabs 07/02/22 [Rx Last Taken Unknown] valsartan 80 mg-hydrochlorothiazide 12.5 mg tablet 1 tab PO DAILY #90 tabs 07/16/22 [Rx Last Taken Unknown] hydrocodone-acetaminophen 5-325mg 5mg-325mg 1 tab PO Q8H PRN Pain 08/03/22 [History Last Taken 08/03/22] levothyroxine 200 mcg tablet 225 mcg PO DAILY thyroid 08/03/22 [History Last Taken Unknown] metformin 1,000 mg tablet 1,000 mg PO 1000,1500 DIABETES 08/03/22 [History Last Taken Unknown] rosuvastatin 10 mg tablet 10 mg PO QHS 08/03/22 [History Last Taken Unknown] Allergy/AdvReac Type Severity Reaction Status Date / Time sitagliptin [From ] Allergy Severe Rash Verified 08/03/22 11:40 theophylline Allergy Unknown Verified 08/03/22 11:40 Family History Mother CAD (coronary artery disease) Breast cancer Diabetes Family History other Surgical History H/O lithotripsy History of coronary artery stent placement (05/24/11) History of left heart catheterization (06/19/18) History of partial nephrectomy History of tonsillectomy Hx of cataract surgery L eye surgery partial nephrectomy for renal cell cancer Social History household members: spouse Smoking Status: Former smoker quit date: 09/29/84 pack-years: 17 how long ago did patient quit smokin, 1.5/d second hand exposure: Yes alcohol intake: never substance use type: does not use Physical Exam Const alert, oriented x3 and no apparent distress General Appearance: cooperative HEENT normocephalic and head/scalp atraumatic Eyes PERRL and EOMs intact bilaterally Neck supple and No nodes Resp normal air movement and clear to auscultation bilaterally Cardio regular rate, regular rhythm and no murmurs GI soft to palpation, non-tender and non-distended Extremity General Extremity: edema Skin no rashes or lesions noted Skin Narrative: No splinter hemorrhages on fingers Neuro CN's II-XII intact bilaterally Lab / Micro Data Attestation: I reviewed the patient's lab results. Result Diagrams: 08/05/22 03:35 08/05/22 03:35 Labs: Laboratory Results - last 24 hr 08/04/22 06:23: Diff Path Review Reviewed 08/04/22 17:48: POC Glucose 191 H 08/04/22 21:29: POC Glucose 164 H 08/05/22 03:35: Sodium 138, Potassium 3.1 L, Chloride 109 H, Carbon Dioxide 21.0, Anion Gap 8, BUN 22 H, Creatinine 0.74, Estim Creat Clear Calc 58.38, Est GFR (MDRD) Af Amer 135, Est GFR (MDRD) Non-Af 111, BUN/Creatinine Ratio 29.7 H, Glucose 149 H, Calcium 7.2 L, Total Bilirubin 1.10 H, AST 25, ALT 31, Alkaline Phosphatase 42 L, Total Protein 5.2 L, Albumin 2.1 L, Globulin 3.1, Albumin/Globulin Ratio 0.7 L 08/05/22 03:35: WBC 5.8, RBC 3.64 L, Hgb 12.1 L, Hct 35.2 L, MCV 96.7 H, MCH 33.2 H, MCHC 34.4, RDW Std Deviation 45.9 H, RDW Coeff of Jonna 12.9, Plt Count 1 08 L, MPV 9.5, Immature Gran % (Auto) 0.700, Neut % (Auto) 91.3 H, Lymph % (Auto) 3.6 L, [place] % (Auto) 3.6, Eos % (Auto) 0.5, Baso % (Auto) 0.3, Absolute Neuts (auto) 5.3, Absolute Lymphs (auto) 0.21 L, Nucleated RBC % 0, Differential Comment SCANNED 08/05/22 06:44: POC Glucose 161 H 08/05/22 11:30: POC Glucose 144 H 08/05/22 12:50: Vancomycin Trough 8.3 Micro: Microbiology 08/04/22 01:30 EST Blood Culture (Wb) - Left Forearm Blood Culture - Final Staphylococcus aureus 08/04/22 00:50 Blood Culture (Wb) - Right Hand Bacteria Detection (PCR) - Final Meth. resistant Staph. aureus 08/04/22 00:50 Blood Culture (Wb) - Right Hand Blood Culture - Preliminary Staphylococcus aureus Radiology Impression Echocardiogram 08/04/22 08:47 Interpretation Summary Normal LV size. Left ventricular systolic function is normal. The estimated ejection fraction is 60 %. Stage 1 diastolic dysfunction. Mild concentric left ventricular hypertrophy. Ordering Physician: Laurie Duran Referring Physician: Lauren Quick M.D. Performed By: Kevon Castellanos RCS Chest X-Ray 08/04/22 11:52 IMPRESSION: No interval change Electronically Signed: Dell Whitaker MD at 14:23 EST , Guidance Fluoroscopy 08/05/22 10:10 IMPRESSION: Left hip aspiration. No fluid was aspirated. Electronically Signed: Anshul Arboleda MD at 12:39 EST ,
[2022-08-05] MEDS: hydroCHLOROthiazide 6.25mg TAB 12.5 MG PO (14:28)
--- NOTE | 2022-08-05 14:45 | PCM.RX.CS ---
Consult Pharmacy has been consulted to manage selected antiobiotic: Vancomycin Type of Consult: Follow-up Suspected Infection: Other Labs: Sodium 138 mmol/L (136-145) 08/05/22 03:35 Potassium 3.1 mmol/L (3.5-5.1) L 08/05/22 03:35 Chloride 109 mmol/L (98-107) H 08/05/22 03:35 Carbon Dioxide 21.0 mmol/L (21.0-32.0) 08/05/22 03:35 Anion Gap 8 (5-15) 08/05/22 03:35 BUN 22 mg/dL (7-18) H 08/05/22 03:35 Creatinine 0.74 mg/dL (0.70-1.30) 08/05/22 03:35 Est GFR (MDRD) Af Amer 135 mL/min (>60) 08/05/22 03:35 Est GFR (MDRD) Non-Af 111 mL/min (>60) 08/05/22 03:35 BUN/Creatinine Ratio 29.7 RATIO (10-20) H 08/05/22 03:35 Glucose 149 mg/dL (74-106) H 08/05/22 03:35 Vancomycin Trough 8.3 ug/mL (5.0-15.0) 08/05/22 12:50 Microbiology: Microbiology 08/04/22 01:30 EST Blood Culture (Wb) - Left Forearm Blood Culture - Final Staphylococcus aureus 08/04/22 00:50 Blood Culture (Wb) - Right Hand Bacteria Detection (PCR) - Final Meth. resistant Staph. aureus 08/04/22 00:50 Blood Culture (Wb) - Right Hand Blood Culture - Preliminary Staphylococcus aureus 08/04/22 01:18 EST Nasal Secretion SARS-CoV-2 & FLU Antigen (Rapid) - Final Goal Trough: 15-20 mcg/mL Pharmacy Plan for Drug Dosing: VANCOMYCIN LEVEL RECEIVED Current Vancomycin Dose: 1500MG Q12H (,) Number of Doses Received: x1 loading dose, x2 1500mg doses Vancomycin Level: 8.3 Hours Since Last Dose: 13 Renal Function: SrCr 0.74 Renal Function Trend: SrCr improved from 08/04/22 (was 1.20) Lab/Micro: Vancomycin Plan/Comments: resulted trough of 8.3 is below the ordered goal trough range of 15-20. recommend increasing the Vancomycin dose from 1500mg q12h to 1250mg q8h starting 08/05/22 at 2100. trough before the 4th dose Pending Level: 08/06/22 at 2030 Pharmacy Service will continue to monitor and adjust dosing as required. Follow-Up Labs: Trough Vancomycin - 08/06/22 at 2030
--- NOTE | 2022-08-05 15:50 | CASEMGMT ---
MANI VELÁSQUEZ Face to Face with patient for initial transition planning/care coordination assessment. RN CM introduced self and role at [facility]. Patient sitting in chair, alert and oriented. Patient willing to participate in assessment and is able to answer all questions appropriately. Care providers, pharmacy, and demographics verified. Patient wishes to discharge home, will monitor for HHC pending course of treatment and progress with therapy. Patient states he has no further needs or concerns at this time. CM to follow for discharge planning needs that may arise. PCP: Ynes Specialists: Brian, core maker; [place] engineering manager electronics Preferred [facility]acy: [facility] Insurance: [id number] Prescription Benefit: yes Living Will/HPOA: yes, [place] LNOK: Living Arrangements: Patient lives with in a single story home with 2 steps and railing to enter the home. Patient states he is independent Transportation: self, DME/HHC: Patient states he has raised toilet, cane, grab bars, cpap, and pulse ox at home. Patient denies previous HHC or SNF. Disposition Plan: Patient to discharge home with family support and follow-up plans in place. Will monitor for HHC. Gris CALDWELL, RN, CM
[2022-08-05 16:31] LABS: Bedside Glucose 213 mg/dL (74-106)
--- NOTE | 2022-08-05 18:13 | PN.HOSP_ITS ---
Subjective Subjective Patient was seen and examined today, I discussed his case with critical care. Patient underwent an attempted left hip aspiration today, unfortunately no fluid was able to be obtained. Patient was seen by infectious diseases today, patient's Zosyn was stopped and he is being continued on vancomycin. Objective Data Objective Data Vital Signs: Vital Signs Temp Pulse Resp BP Pulse Ox O2 Del Method O2 Flow Rate 100.5 F H 83 24 H 135/72 H 95 CPAP 2 08/05/22 18:00 08/05/22 18:00 08/05/22 18:00 08/05/22 18:00 08/05/22 18:00 08/05/22 18:00 08/04/22 12:30 FiO2 21 08/05/22 18:00 Oxygen Flow Rate (L/min) 2 Oxygen Delivery Method CPAP Weight: 127.1 kg Body Mass Index (BMI) 45.3 Intake & Output: Intake and Output for Last 24 Hours 08/04/22 08/04/22 08/05/22 00:59 23:59 23:59 Intake Total 4311.08 / 4311.08 Output Total 1850 / 1850 Balance 2461.08 / 2461.08 Lab / Micro Data Result Diagrams: 08/05/22 03:35 08/05/22 03:35 Labs: Laboratory Results - last 24 hr 08/04/22 06:23: Diff Path Review Reviewed 08/04/22 21:29: POC Glucose 164 H 08/05/22 03:35: Sodium 138, Potassium 3.1 L, Chloride 109 H, Carbon Dioxide 21.0, Anion Gap 8, BUN 22 H, Creatinine 0.74, Estim Creat Clear Calc 58.38, Est GFR (MDRD) Af Amer 135, Est GFR (MDRD) Non-Af 111, BUN/Creatinine Ratio 29.7 H, Glucose 149 H, Calcium 7.2 L, Total Bilirubin 1.10 H, AST 25, ALT 31, Alkaline Phosphatase 42 L, Total Protein 5.2 L, Albumin 2.1 L, Globulin 3.1, Albumin/Globulin Ratio 0.7 L 08/05/22 03:35: WBC 5.8, RBC 3.64 L, Hgb 12.1 L, Hct 35.2 L, MCV 96.7 H, MCH 33.2 H, MCHC 34.4, RDW Std Deviation 45.9 H, RDW Coeff of Jonna 12.9, Plt Count 108 L, MPV 9.5, Immature Gran % (Auto) 0.700, Neut % (Auto) 91.3 H, Lymph % (Auto) 3.6 L, [place] % (Auto) 3.6, Eos % (Auto) 0.5, Baso % (Auto) 0.3, Absolute Neuts (auto) 5.3, Absolute Lymphs (auto) 0.21 L, Nucleated RBC % 0, Differential Comment SCANNED 08/05/22 06:44: POC Glucose 161 H 08/05/22 11:30: POC Glucose 144 H 08/05/22 12:50: Vancomycin Trough 8.3 08/05/22 16:06: POC Glucose 213 H Micro: Microbiology 08/04/22 01:30 EST Blood Culture (Wb) - Left Forearm Blood Culture - Final Staphylococcus aureus 08/04/22 00:50 Blood Culture (Wb) - Right Hand Bacteria Detection (PCR) - Final Meth. resistant Staph. aureus 08/04/22 00:50 Blood Culture (Wb) - Right Hand Blood Culture - Preliminary Staphylococcus aureus 08/04/22 01:18 EST Nasal Secretion SARS-CoV-2 & FLU Antigen (Rapid) - Final Radiography Diagnostic Testing: Radiology Impression Echocardiogram 08/04/22 08:47 Interpretation Summary Normal LV size. Left ventricular systolic function is normal. The estimated ejection fraction is 60 %. Stage 1 diastolic dysfunction. Mild concentric left ventricular hypertrophy. Ordering Physician: Laurie Duran Referring Physician: Lauren Quick M.D. Performed By: Kevon Castellanos RCS Venous Doppler Study 08/04/22 13:46 Interpretation Summary Deep veins of the bilateral lower extremities are patent and compressible segmentally. There is no evidence of bilateral lower extremity deep vein thrombosis. The bilateral great saphenous veins appear patent and compressible segmentally. Ordering Physician: Laurie Duran Referring Physician: Lauren Quick M.D. Performed By: Castro Phillip RVT Guidance Fluoroscopy 08/05/22 10:10 IMPRESSION: Left hip aspiration. No fluid was aspirated. Electronically Signed: Anshul Arboleda MD at 12:39 EST , Physical Exam Const alert, oriented x3 and no apparent distress Constitutional Narrative: Patient is morbidly obese General Appearance: cooperative, well kempt and well developed Orientation / Consciousness: awake, oriented to person, oriented to place and oriented to time HEENT normocephalic and moist oral mucous membranes Eyes PERRL, EOMs intact bilaterally and conjunctivae normal Neck supple, no JVD, thyroid normal and no carotid bruits General: trachea midline Resp normal respiratory effort, no retractions, no use of accessory muscles and clear to auscultation bilaterally Auscultation: Negative for rales, rhonchi or wheezes Cardio regular rate, regular rhythm, S1 normal heart sound, S2 normal heart sound, no murmurs, no rub and no gallops GI normal to inspection, nondistended, normoactive bowel sounds, soft to palpation, non-tender and non-distended Extremity no clubbing, cyanosis or edema Skin no rashes or lesions noted General Skin Exam: no breakdown Neuro oriented x3, CN's II-XII intact bilaterally, no focal motor deficits and no sensory deficits noted Sensorium / Orientation: awake and alert Speech: speech normal Psych affect normal Assessment & Plan Assessment/Plan (1) MRSA bacteremia: PLAN: Plan 1. Sepsis secondary to MRSA bacteremia suspected to be originating from an infected left hip joint-patient will remain on antibiotics per infectious diseases at this time, orthopedic surgery will participate in his care #2 obstructive sleep apnea-patient uses CPAP while sleeping, this will be continued #3 chronic obstructive pulmonary disease-patient will remain on his present medications #4 morbid obesity-complicates care, management, recovery, and prognosis #5 type 2 diabetes-patient's blood sugars will be monitored, sliding scale insulin will be given as needed #6 Coronary artery disease-stable at this time #7 hypothyroidism-patient is on Synthroid #8 hyperlipidemia-patient is on Lipitor #9 essential hypertension-patient is currently on hydrochlorothiazide Charges/Coding Visit Charges Inpatient E&M: 32993 Subs Hosp L2
[2022-08-05] MEDS: Atorvastatin Calcium 20 MG Tablet PO (21:03)
[2022-08-05 21:35] LABS: Bedside Glucose 192 mg/dL (74-106)
[2022-08-06] VITALS (25 sets, daily range): BP systolic 111–158; BP diastolic 7–79; PULSE 67–95; RESP 19–27; TEMP 36.9–38.9; O2SAT 90–98
[2022-08-06] MEDS: oxyCODONE 5 MG Tablet PO ×4 (02:18→16:32)
[2022-08-06] MEDS: Acetaminophen 325 MG Tablet 650 MG PO ×2 (02:18→09:58)
[2022-08-06] MEDS: 0.9% Normal Saline 1,000 ML 100 ML IV ×2 (03:24→12:15)
[2022-08-06 04:30] LABS: Absolute Lymphocyte Count 0.38 X10^3/uL (0.83-4.51); Absolute Neutrophil Count 4.2 X10^3/uL (2.0-7.7); Basophil# 0.02 X10^3/uL; Basophil% 0.4 % (0-1); Eosinophil# 0.03 X10^3/uL; Eosinophils% 0.6 % (0-5); Hematocrit 35.7 % (40-54); Hemoglobin 12.7 g/dL (13.0-16.5); Lymphocyte # 0.38 X10^3/ul (0.83-4.51); Lymphocyte % 7.4 % (19-41); Mean Corp Hgb Conc 35.6 g/dL (32-36); Mean Corpuscular Volume 95.7 fL (80-94); Mean Platelet Vol. 10.1 fl (6.2-12.0); Monocyte# 0.47 X10^3/uL; Monocyte% 9.2 % (0-10); NRBC Flagged by Analyzer 0 % (0-5); Neutrophil # 4.19 X10^3/uL (2.7-7.7); Neutrophil % 81.8 % (47-70); POSITIVE DIFFERENTIAL YES; Platelet Count 104 K/mm3 (150-450); RBC Distribution Width CV 12.7 % (11.6-14.6); RBC Distribution Width SD 45.1 fl (35.1-43.9); Red Blood Count 3.73 M/mm3 (4.6-6.2); White Blood Count 5.1 K/mm3 (4.4-11.0)
[2022-08-06 04:31] LABS: Differential Indicated SCAN CRITERIA MET
[2022-08-06 04:44] LABS: Anion Gap 6 (5-15); BUN 15 mg/dL (7-18); BUN/Creat Ratio 22.7 RATIO (10-20); Calcium,Total 7.7 mg/dL (8.5-10.1); Chloride 106 mmol/L (98-107); Creatinine, Serum 0.66 mg/dL (0.70-1.30); EST Glomerular Filtration Rate 127 mL/min (>60); Est Glom Filt Rate - Afr Amer 153 mL/min (>60); Estimated Creatinine Clearance 58.38 ml/min; Glucose 182 mg/dL (74-106); Potassium 3.6 mmol/L (3.5-5.1); Sodium Level 135 mmol/L (136-145)
[2022-08-06 05:04] LABS: Differential Comment SCANNED
[2022-08-06] MEDS: Levothyroxine 75 MCG Tablet 225 MCG PO (06:09)
[2022-08-06] MEDS: Insulin Lispro 100 UNIT/ML INSULN.PEN SC ×4 (06:34→20:55)
--- NOTE | 2022-08-06 06:46 | PCM.PN.ORT ---
Subjective Subjective Patient seen and examined. States left hip continues to feel better. He states his pain is only with weightbearing at this point. Patient underwent left hip arthrocentesis by interventional radiology yesterday with no fluid aspirated. Patient continues to be febrile overnight. Currently on vancomycin per infectious disease. Denies chills, nausea vomiting, chest pain, shortness of breath. Objective Data Objective Data Vital Signs: Vital Signs Temp Pulse Resp BP Pulse Ox O2 Del Method O2 Flow Rate 99.8 F H 73 22 H 122/67 H 95 Room Air 2 08/06/22 05:00 08/06/22 05:00 08/06/22 05:00 08/06/22 05:00 08/06/22 05:00 08/06/22 05:00 08/04/22 12:30 FiO2 21 08/06/22 04:00 Oxygen Flow Rate (L/min) 2 Oxygen Delivery Method Room Air Weight: 283 lb 4.704 oz Body Mass Index (BMI) 45.3 Intake & Output: Intake and Output for Last 24 Hours 08/04/22 08/05/22 08/06/22 23:59 23:59 23:59 Intake Total 4721.58 / 4721.58 1000 / 1000 Output Total 2400 / 3250 1600 / 1600 Balance 2321.58 / 1471.58 -600 / -600 Lab / Micro Data Result Diagrams: 08/06/22 04:10 08/06/22 04:10 Labs: Laboratory Results - last 24 hr 08/04/22 06:23: Diff Path Review Reviewed 08/05/22 06:44: POC Glucose 161 H 08/05/22 11:30: POC Glucose 144 H 08/05/22 12:50: Vancomycin Trough 8.3 08/05/22 16:06: POC Glucose 213 H 08/05/22 21:01: POC Glucose 192 H 08/06/22 04:10: WBC 5.1, RBC 3.73 L, Hgb 12.7 L, Hct 35.7 L, MCV 95.7 H, MCH 34.0 H, MCHC 35.6, RDW Std Deviation 45.1 H, RDW Coeff of Jonna 12.7, Plt Count 104 L, MPV 10.1, Immature Gran % (Auto) 0.600, Neut % (Auto) 81.8 H, Lymph % (Auto) 7.4 L, [place] % (Auto) 9.2, Eos % (Auto) 0.6, Baso % (Auto) 0.4, Absolute Neuts (auto) 4.2, Absolute Lymphs (auto) 0.38 L, Nucleated RBC % 0, Differential Comment SCANNED 08/06/22 04:10: Sodium 135 L, Potassium 3.6, Chloride 106, Carbon Dioxide 23.0, Anion Gap 6, BUN 15, Creatinine 0.66 L, Estim Creat Clear Calc 58.38, Est GFR (MDRD) Af Amer 153, Est GFR (MDRD) Non-Af 127, BUN/Creatinine Ratio 22.7 H, Glucose 182 H, Calcium 7.7 L Micro: Microbiology 08/05/22 14:35 Blood Culture (Wb) - Right Hand Blood Culture - Preliminary 08/04/22 01:30 EST Blood Culture (Wb) - Left Forearm Blood Culture - Final Staphylococcus aureus 08/04/22 00:50 Blood Culture (Wb) - Right Hand Bacteria Detection (PCR) - Final Meth. resistant Staph. aureus 08/04/22 00:50 Blood Culture (Wb) - Right Hand Blood Culture - Preliminary Staphylococcus aureus 08/04/22 01:18 EST Nasal Secretion SARS-CoV-2 & FLU Antigen (Rapid) - Final Radiography Diagnostic Testing: Radiology Impression Echocardiogram 08/04/22 08:47 Interpretation Summary Normal LV size. Left ventricular systolic function is normal. The estimated ejection fraction is 60 %. Stage 1 diastolic dysfunction. Mild concentric left ventricular hypertrophy. Ordering Physician: Laurie Duran Referring Physician: Lauren Quick M.D. Performed By: Kevon Castellanos RCS Venous Doppler Study 08/04/22 13:46 Interpretation Summary Deep veins of the bilateral lower extremities are patent and compressible segmentally. There is no evidence of bilateral lower extremity deep vein thrombosis. The bilateral great saphenous veins appear patent and compressible segmentally. Ordering Physician: Laurie Duran Referring Physician: Lauren Quick M.D. Performed By: Castro Phillip RVT Guidance Fluoroscopy 08/05/22 10:10 IMPRESSION: Left hip aspiration. No fluid was aspirated. Electronically Signed: Anshul Arboleda MD at 12:39 EST , Physical Exam Narrative General -A&Ox3, NAD, appears stated age. Respiratory -normal work of breathing, no intercostal retractions. CV -pulses regular, brisk capillary refill ?4 limbs. Abdomen-soft, nontender, nondistended. No guarding, rigidity, rebound tenderness. Musculoskeletal/neurologic -full range of motion nontender throughout bilateral upper extremities, right lower extremity with full sensation and strength in all dermatomes and myotomes. No midline cervical tenderness. Left lower extremity-skin overlying the hip is unremarkable with no erythema or drainage noted. There is no palpable fluctuance. The skin is not warm to touch. Patient tolerates short arc range of motion of the left hip without obvious signs of distress or pain. Brisk capillary refill. Sensation intact light touch L3-S1 dermatomes. DF, PF, EHL intact. DP, PT 2+. Pelvis is stable, nontender. Skin is intact without lacerations, abrasions. Assessment & Plan Assessment/Plan (1) Hip pain: PLAN: Left hip pain continues to improve, atypical of a septic arthritis. Dry arthrocentesis is also atypical for septic arthritis. Blood cultures positive for MRSA. Continue antibiotics/sepsis management per primary. Discussed care with Dr. Storey this morning. Possible consideration of tagged white blood cells to identify source as left hip appears unlikely to be source. Further work-up per primary and infectious disease. I will plan to follow peripherally at this point. Please not hesitate to call if any questions or concerns arise in the interim.
--- NOTE | 2022-08-06 06:49 | PCM.PN.INT ---
Assessment & Plan Assessment/Plan (1) Sepsis associated hypotension: (2) Obstructive sleep apnea: (3) COPD (chronic obstructive pulmonary disease): QUALIFIERS: COPD type: unspecified COPD Qualified Code(s): J44.9 - Chronic obstructive pulmonary disease, unspecified PLAN: Plan RECOMMENDATIONS: 1. Continue antibiotics pending culture results. Likely check blood cultures daily until cleared 2. Defer to infectious disease additional work-up 3. Potential need for STEFANIA 4. Hemodynamically stable on room air. Okay to leave the intensive care unit from my perspective 5. No indication for systemic steroids from a pulmonary perspective 6. Continue CPAP with sleep 7. Will sign off from a critical care perspective. Please call with any additional questions IMPRESSIONS: 1. Sepsis secondary to MRSA secondary to possible infected hip joint Improved. Endorgan damage demonstrated by metabolic encephalopathy. Patient is growing MRSA out of both blood culture bottles. Unclear source at this time. Patient is having significant hip pain on the left. Arthrocentesis showed no fluid. Defer to infectious disease on additional work-up. Patient is currently on vancomycin. Patient appears to be hemodynamically stable. Likely okay to leave the intensive care unit from my perspective. Given patient is hemodynamically stable on room air, will sign off from a critical care perspective. Please call with any further information. 2. Metabolic encephalopathy Resolved. Clinical suspicion for delirium secondary to problem #1. Patient is much improved after initiation of antibiotics and correction of hemodynamics. We will continue to monitor closely. Would avoid Ativan if possible. 3. Chronic COPD/RHINA Stable. Patient can continue on baseline CPAP therapy. No indication of acute COPD exacerbation by history. Okay to continue with therapeutic substitution for aerosolized medications. Patient does have a history of VTE in the past and is not on chronic anticoagulation. We will have to mobilize to soon as possible. 4. Hypothyroidism/morbid obesity/history of renal cell cancer/hypertension/morbid obesity/type 2 diabetes mellitus/CAD Complicates care, management, recovery and prognosis. Likely okay to continue with baseline medications for now. We will have to watch renal function closely as patient is at risk for acute kidney injury. Patient does have a history of a partial nephrectomy in the past. Low clinical suspicion for hyperthyroidism leading to febrile nature. Subjective Subjective Patient did well overnight. No acute issues were reported. Patient did have fever yesterday, but no fever was reported overnight. Patient continues to have significant left hip pain, but does have mobility. Patient able to stand and pivot independently. Objective Data Objective Data Patient's blood culture from yesterday is showing gram-positive cocci in clusters Vital Signs: Vital Signs Temp Pulse Resp BP Pulse Ox O2 Del Method O2 Flow Rate 37.8 C H 76 24 H 123/71 H 93 Room Air 2 08/06/22 06:00 08/06/22 06:00 08/06/22 06:00 08/06/22 06:00 08/06/22 06:00 08/06/22 06:00 08/04/22 12:30 FiO2 21 08/06/22 04:00 Oxygen Flow Rate (L/min) 2 Oxygen Delivery Method Room Air Weight: 128.5 kg Body Mass Index (BMI) 45.3 Intake & Output: Intake and Output for Last 24 Hours 08/04/22 08/05/22 08/06/22 23:59 23:59 23:59 Intake Total 4721.58 / 4721.58 1000 / 1000 Output Total 2400 / 3250 1600 / 1600 Balance 2321.58 / 1471.58 -600 / -600 Lab / Micro Data Attestation: I reviewed the patient's lab results. Result Diagrams: 08/06/22 04:10 08/06/22 04:10 Labs: Laboratory Results - last 24 hr 08/04/22 06:23: Diff Path Review Reviewed 08/05/22 06:44: POC Glucose 161 H 08/05/22 11:30: POC Glucose 144 H 08/05/22 12:50: Vancomycin Trough 8.3 08/05/22 16:06: POC Glucose 213 H 08/05/22 21:01: POC Glucose 192 H 08/06/22 04:10: WBC 5.1, RBC 3.73 L, Hgb 12.7 L, Hct 35.7 L, MCV 95.7 H, MCH 34.0 H, MCHC 35.6, RDW Std Deviation 45.1 H, RDW Coeff of Jonna 12.7, Plt Count 104 L, MPV 10.1, Immature Gran % (Auto) 0.600, Neut % (Auto) 81.8 H, Lymph % (Auto) 7.4 L, [place] % (Auto) 9.2, Eos % (Auto) 0.6, Baso % (Auto) 0.4, Absolute Neuts (auto) 4.2, Absolute Lymphs (auto) 0.38 L, Nucleated RBC % 0, Differential Comment SCANNED 08/06/22 04:10: Sodium 135 L, Potassium 3.6, Chloride 106, Carbon Dioxide 23.0, Anion Gap 6, BUN 15, Creatinine 0.66 L, Estim Creat Clear Calc 58.38, Est GFR (MDRD) Af Amer 153, Est GFR (MDRD) Non-Af 127, BUN/Creatinine Ratio 22.7 H, Glucose 182 H, Calcium 7.7 L Micro: Microbiology 08/05/22 14:35 Blood Culture (Wb) - Right Hand Blood Culture - Preliminary 08/04/22 01:30 EST Blood Culture (Wb) - Left Forearm Blood Culture - Final Staphylococcus aureus 08/04/22 00:50 Blood Culture (Wb) - Right Hand Bacteria Detection (PCR) - Final Meth. resistant Staph. aureus 08/04/22 00:50 Blood Culture (Wb) - Right Hand Blood Culture - Preliminary Staphylococcus aureus 08/04/22 01:18 EST Nasal Secretion SARS-CoV-2 & FLU Antigen (Rapid) - Final Radiography Diagnostic Testing: Radiology Impression Echocardiogram 08/04/22 08:47 Interpretation Summary Normal LV size. Left ventricular systolic function is normal. The estimated ejection fraction is 60 %. Stage 1 diastolic dysfunction. Mild concentric left ventricular hypertrophy. Ordering Physician: Laurie Duran Referring Physician: Lauren Quick M.D. Performed By: Kevon Castellanos RCS Venous Doppler Study 08/04/22 13:46 Interpretation Summary Deep veins of the bilateral lower extremities are patent and compressible segmentally. There is no evidence of bilateral lower extremity deep vein thrombosis. The bilateral great saphenous veins appear patent and compressible segmentally. Ordering Physician: Laurie Duran Referring Physician: Lauren Quick M.D. Performed By: Castro Phillip, JODI Guidance Fluoroscopy 08/05/22 10:10 IMPRESSION: Left hip aspiration. No fluid was aspirated. Electronically Signed: Anshul Arboleda MD at 12:39 EST , Physical Exam Const alert, oriented x3 and no apparent distress Constitutional Narrative: No conversational dyspnea General Appearance: cooperative HEENT normocephalic and head/scalp atraumatic Eyes PERRL, EOMs intact bilaterally and conjunctivae normal Eyes Narrative: Glasses in place Neck full ROM and supple Chest Chest: abnormal inspection of the chest increased A-P diameter Resp normal respiratory effort Effort and Inspection: able to speak in complete sentences; Negative for actively coughing Auscultation: diminished lung sounds; Negative for rales, rhonchi or wheezes Cardio regular rate, regular rhythm, S1 normal heart sound, S2 normal heart sound, no murmurs, no rub and no gallops GI normal to inspection, nondistended, normoactive bowel sounds Extremity Extremity Narrative: Decreased mobility of left hip General Extremity: edema; Negative for clubbing Skin no rashes or lesions noted General Skin Exam: venous stasis Neuro oriented x3, CN's II-XII intact bilaterally and moves all extremities Psych cooperative Charges/Coding Visit Charges Inpatient E&M: 38927 Subs Hosp L2
[2022-08-06 06:55] LABS: Bedside Glucose 181 mg/dL (74-106)
[2022-08-06] MEDS: Gabapentin 300 MG Capsule PO ×3 (08:40→16:38)
[2022-08-06] MEDS: Aspirin 81 MG TAB.CHEW PO (08:40)
[2022-08-06] MEDS: Senna/Docusate Sodium 1 Tablet 2 TABLET PO (08:40)
[2022-08-06] MEDS: Glucerna Shake 120 ML LIQUID PO ×3 (08:41→20:55)
[2022-08-06] MEDS: Lidocaine 5% Patch 2 PATCH TOPICAL (09:55)
[2022-08-06] MEDS: Hydroxyurea 500 MG Capsule PO (09:56)
[2022-08-06] MEDS: Enoxaparin 40 MG/0.4 ML Syringe SC (09:56)
[2022-08-06] MEDS: hydroCHLOROthiazide 6.25mg TAB 12.5 MG PO (09:56)
[2022-08-06] MEDS: Metoprolol Tartrate 25 MG Tablet PO ×2 (09:56→20:55)
--- NOTE | 2022-08-06 10:09 | PCM.PN.ID ---
Physical Exam Narrative Feeling ok. Fever and shakes overnight. L hip a little less sore. Const alert and no apparent distress Resp normal air movement and clear to auscultation bilaterally Cardio regular rate and regular rhythm GI soft to palpation, non-tender and non-distended Extremity General Extremity: edema Skin no rashes or lesions noted ID ID: Route of nutrition/ use of supplements: [] Nutritional Intake: [] IV Site: [] Rangel Catheter: [] Assessment & Plan Assessment/Plan (1) MRSA bacteremia: PLAN: sepsis due to MRSA bactermia, suspected source L hip infection s/p injection. Ortho following. Had dry tap of L hip. TTE showed no veg, will repeat bcx. Cont vanc. Still high fever, will order STEFANIA and wbc scan. Will follow, d/w Dr. Storey
[2022-08-06 12:16] LABS: Bedside Glucose 190 mg/dL (74-106)
[2022-08-06] MEDS: HYDROmorphone 0.5 MG/0.5 ML SYRINGE IV (16:32)
[2022-08-06] MEDS: 0.9% Saline Lock 10 ML Syringe IV ×2 (16:33→21:07)
--- NOTE | 2022-08-06 16:44 | PCM.PN.HOSP ---
Subjective Subjective Patient was seen and examined today, T-max today was 102.1, he has been scheduled for a STEFANIA tomorrow. Patient's white blood cell count today was normal at 5.1. Objective Data Objective Data Vital Signs: Vital Signs Temp Pulse Resp BP Pulse Ox O2 Del Method O2 Flow Rate 99.8 F H 77 22 H 121/64 H 95 Room Air 2 08/06/22 14:00 08/06/22 14:00 08/06/22 14:00 08/06/22 14:00 08/06/22 14:00 08/06/22 14:00 08/04/22 12:30 FiO2 21 08/06/22 11:00 Oxygen Flow Rate (L/min) 2 Oxygen Delivery Method Room Air Weight: 128.5 kg Body Mass Index (BMI) 45.3 Intake & Output: Intake and Output for Last 24 Hours 08/04/22 08/05/22 08/06/22 23:59 23:59 23:59 Intake Total 4721.58 / 4721.58 2728.75 / 2728.75 Output Total 2400 / 3250 3250 / 3250 Balance 2321.58 / 1471.58 -521.25 / -521.25 Lab / Micro Data Result Diagrams: 08/06/22 04:10 08/06/22 04:10 Labs: Laboratory Results - last 24 hr 08/05/22 21:01: POC Glucose 192 H 08/06/22 04:10: WBC 5.1, RBC 3.73 L, Hgb 12.7 L, Hct 35.7 L, MCV 95.7 H, MCH 34.0 H, MCHC 35.6, RDW Std Deviation 45.1 H, RDW Coeff of Jonna 12.7, Plt Count 104 L, MPV 10.1, Immature Gran % (Auto) 0.600, Neut % (Auto) 81.8 H, Lymph % (Auto) 7.4 L, [place] % (Auto) 9.2, Eos % (Auto) 0.6, Baso % (Auto) 0.4, Absolute Neuts (auto) 4.2, Absolute Lymphs (auto) 0.38 L, Nucleated RBC % 0, Differential Comment SCANNED 08/06/22 04:10: Sodium 135 L, Potassium 3.6, Chloride 106, Carbon Dioxide 23.0, Anion Gap 6, BUN 15, Creatinine 0.66 L, Estim Creat Clear Calc 58.38, Est GFR (MDRD) Af Amer 153, Est GFR (MDRD) Non-Af 127, BUN/Creatinine Ratio 22.7 H, Glucose 182 H, Calcium 7.7 L 08/06/22 06:33: POC Glucose 181 H 08/06/22 11:52: POC Glucose 190 H Micro: Microbiology 08/04/22 00:50 Blood Culture (Wb) - Right Hand Bacteria Detection (PCR) - Final Meth. resistant Staph. aureus 08/04/22 00:50 Blood Culture (Wb) - Right Hand Blood Culture - Final Meth. resistant Staph. aureus 08/05/22 14:35 Blood Culture (Wb) - Right Hand Blood Culture - Preliminary 08/04/22 01:30 EST Blood Culture (Wb) - Left Forearm Blood Culture - Final Staphylococcus aureus 08/04/22 01:18 EST Nasal Secretion SARS-CoV-2 & FLU Antigen (Rapid) - Final Physical Exam Narrative alert, oriented x3 and no apparent distress Constitutional Narrative: Patient is morbidly obese General Appearance: cooperative, well kempt and well developed Orientation / Consciousness: awake, oriented to person, oriented to place and oriented to time HEENT normocephalic and moist oral mucous membranes Eyes PERRL, EOMs intact bilaterally and conjunctivae normal Neck supple, no JVD, thyroid normal and no carotid bruits General: trachea midline Resp normal respiratory effort, no retractions, no use of accessory muscles and clear to auscultation bilaterally Auscultation: Negative for rales, rhonchi or wheezes Cardio regular rate, regular rhythm, S1 normal heart sound, S2 normal heart sound, no murmurs, no rub and no gallops GI normal to inspection, nondistended, normoactive bowel sounds, soft to palpation, non-tender and non-distended Extremity no clubbing, cyanosis or edema Skin no rashes or lesions noted General Skin Exam: no breakdown Neuro oriented x3, CN's II-XII intact bilaterally, no focal motor deficits and no sensory deficits noted Sensorium / Orientation: awake and alert Speech: speech normal Psych affect normal Assessment & Plan Assessment/Plan (1) MRSA bacteremia: PLAN: Plan 1. Sepsis secondary to MRSA bacteremia-the origin of the bacteremia is not known at this time, orthopedic surgery does not feel that it is due to an infected joint. Patient will have a STEFANIA tomorrow. Patient appears stable for transfer to the medical floor at this time. #2 obstructive sleep apnea-patient uses CPAP while sleeping, this will be continued #3 chronic obstructive pulmonary disease-patient will remain on his present medications #4 morbid obesity-complicates care, management, recovery, and prognosis #5 type 2 diabetes-patient's blood sugars will be monitored, sliding scale insulin will be given as needed #6 Coronary artery disease-stable at this time #7 hypothyroidism-patient is on Synthroid #8 hyperlipidemia-patient is on Lipitor #9 essential hypertension-patient is currently on hydrochlorothiazide Charges/Coding Visit Charges Inpatient E&M: 72817 Subs Hosp L2
[2022-08-06 17:21] LABS: Bedside Glucose 179 mg/dL (74-106)
[2022-08-06] MEDS: Atorvastatin Calcium 20 MG Tablet PO (20:55)
[2022-08-07] VITALS (10 sets, daily range): BP systolic 125–147; BP diastolic 67–83; PULSE 66–90; RESP 18–20; TEMP 35.7–37; O2SAT 94–98
[2022-08-07] LABS: Bedside Glucose 217 mg/dL (74-106)
--- NOTE | 2022-08-07 00:06 | PCM.HOSP.N ---
Hospitalist Note Patient with increased anxiety, difficulty using his CPAP secondary to claustrophobia. Patient amenable to medication. Will trial ativan low dose 0.5 x 1.
--- NOTE | 2022-08-07 00:14 | NURSING ---
Addendum entered by Emi Higuera 08/07/22 05:39: Patient refusing to wear fall bracelet and ID wrist band. Addendum entered by Emi Higuera 08/07/22 05:21: Patient was very confused overnight. He began the night A & O x3, but became more and more confused as the night progressed. He was very restless and anxious at times. He called his around 1:30 a.m. asking her if she knew what was going on. He told her he had been kidnapped. This RN spoke to , Shital. According to her, her does not get confused at home. Shital offered to come in to sit with patient. She did same. Aubrey was much calmer when his was with him. Original Note: Patient seemingly unhooked his IV. Vancomycin was infusing in L arm. This RN is not sure how much Vancomycin patient actually got. Pharmacist Eliseo said to hang next Vanc bag as scheduled.
[2022-08-07] MEDS: 0.9% Normal Saline 1,000 ML 100 ML IV (00:46)
[2022-08-07] MEDS: Acetaminophen 325 MG Tablet 650 MG PO ×3 (00:56→12:22)
[2022-08-07] MEDS: MELATONIN 3 MG TABLET PO ×2 (00:56→22:11)
[2022-08-07] MEDS: 0.9% Saline Lock 10 ML Syringe IV ×4 (00:58→22:11)
[2022-08-07] MEDS: LORazepam 2 MG/ML Syringe 0.5 MG IV (01:08)
--- NOTE | 2022-08-07 01:18 | PCM.RX.CS ---
Consult Pharmacy has been consulted to manage selected antiobiotic: Vancomycin Type of Consult: Follow-up Labs: Sodium 135 mmol/L (136-145) L 08/06/22 04:10 Potassium 3.6 mmol/L (3.5-5.1) 08/06/22 04:10 Chloride 106 mmol/L (98-107) 08/06/22 04:10 Carbon Dioxide 23.0 mmol/L (21.0-32.0) 08/06/22 04:10 Anion Gap 6 (5-15) 08/06/22 04:10 BUN 15 mg/dL (7-18) 08/06/22 04:10 Creatinine 0.66 mg/dL (0.70-1.30) L 08/06/22 04:10 Est GFR (MDRD) Af Amer 153 mL/min (>60) 08/06/22 04:10 Est GFR (MDRD) Non-Af 127 mL/min (>60) 08/06/22 04:10 BUN/Creatinine Ratio 22.7 RATIO (10-20) H 08/06/22 04:10 Glucose 182 mg/dL (74-106) H 08/06/22 04:10 Vancomycin Trough 13.0 ug/mL (5.0-15.0) 08/06/22 20:30 Microbiology: Microbiology 08/04/22 00:50 Blood Culture (Wb) - Right Hand Bacteria Detection (PCR) - Final Meth. resistant Staph. aureus 08/04/22 00:50 Blood Culture (Wb) - Right Hand Blood Culture - Final Meth. resistant Staph. aureus 08/05/22 14:35 Blood Culture (Wb) - Right Hand Blood Culture - Preliminary 08/04/22 01:30 EST Blood Culture (Wb) - Left Forearm Blood Culture - Final Staphylococcus aureus 08/04/22 01:18 EST Nasal Secretion SARS-CoV-2 & FLU Antigen (Rapid) - Final Goal Trough: 15-20 mcg/mL Pharmacy Plan for Drug Dosing: Pharmacy Service will continue to monitor and adjust dosing as required. TROUGH 13 AT 7.5 HRS. SCr DECREASED FROM 0.74 TO 0.66. INCREASE TO 1500MG Q8H AND FOLLOW UP TROOUGH PRIOR TO 4TH DOSE Follow-Up Labs: Trough Vancomycin Labs to be done on [date and time ordered]: 08/07 @ 2100
[2022-08-07] MEDS: Levothyroxine 75 MCG Tablet 225 MCG PO (05:43)
[2022-08-07] MEDS: Insulin Lispro 100 UNIT/ML INSULN.PEN SC ×4 (05:56→22:26)
[2022-08-07 07:15] LABS: Bedside Glucose 181 mg/dL (74-106)
[2022-08-07 11:25] LABS: Bedside Glucose 176 mg/dL (74-106)
[2022-08-07] MEDS: Lidocaine 5% Patch 2 PATCH TOPICAL (12:06)
[2022-08-07] MEDS: Metoprolol Tartrate 25 MG Tablet PO ×2 (12:06→22:10)
[2022-08-07] MEDS: hydroCHLOROthiazide 6.25mg TAB 12.5 MG PO (12:06)
[2022-08-07] MEDS: Aspirin 81 MG TAB.CHEW PO (12:07)
[2022-08-07] MEDS: Hydroxyurea 500 MG Capsule PO (12:11)
[2022-08-07] MEDS: Enoxaparin 40 MG/0.4 ML Syringe SC (12:12)
[2022-08-07] MEDS: Glucerna Shake 120 ML LIQUID PO ×2 (12:13→22:21)
[2022-08-07] MEDS: Gabapentin 300 MG Capsule PO ×2 (12:14→16:03)
[2022-08-07] MEDS: oxyCODONE 5 MG Tablet PO (12:21)
--- NOTE | 2022-08-07 12:31 | NURSING ---
pt unalbe to do wbc tracing test. pt came off table 3 times and would not lay still. dr dickinson notified.
--- NOTE | 2022-08-07 13:45 | PCM.PN.ID ---
Physical Exam Narrative Feeling ok, hip still quite painful. Was unable to tolerate wbc scan due to pain. Const alert and no apparent distress Resp normal air movement and clear to auscultation bilaterally Cardio regular rate and regular rhythm GI soft to palpation, non-tender and non-distended Extremity General Extremity: edema Skin no rashes or lesions noted ID ID: Route of nutrition/ use of supplements: [] Nutritional Intake: [] IV Site: [] Rangel Catheter: [] Assessment & Plan Assessment/Plan (1) MRSA bacteremia: PLAN: sepsis due to MRSA bactermia, suspected source L hip infection s/p injection. Ortho following. Had dry tap of L hip. TTE showed no veg, will repeat bcx. Cont vanc. Fever resolved, STEFANIA pending, unable to tolerate wbc scan due to hip pain. Will follow
--- NOTE | 2022-08-07 16:07 | CASEMGMT ---
Social Work RNCMWilliam, spoke with as family struggling with anxiety and feelings of being overwhelmed. This SW asked RNCM to check with family regarding AD so as not to disturb multiple times. RNCMWilliam, stated pt reports has brought in copies before. Carla informed no copies are on file and that family can bring in the document when possible. COREY Vargas
--- NOTE | 2022-08-07 16:14 | CASEMGMT ---
Addendum entered by Carla Christensen 08/07/22 16:43: A list of both HHC and SNF providers including quality and resource use data and consistent with the patient?s preferred geographic region, medical needs, and insurance network were provided [facility]. Original Note: MANI VELÁSQUEZ NOTE: Blood cultures drawn yesterday are still pending and STEFANIA pending. Per Dr Cabrera, pt will need minimum of IV Vanco 3-4 week after discharge. MANI VELÁSQUEZ to room earlier today. Pt sleeping in bed w/BIPAP mask in place. MANI VELÁSQUEZ spoke w/pt's who was at bedside re: discharge planning. Discussed options of SNF vs Home w/HHC. states pt really prefers to discharge home and she states she is teachable/willing to learn IV atb admin. She states does not feel pt would need therapy, just SN, as she has been assisting him up in the room today and feels he is getting around much better than he had been. Discussed HHC and infusion companies. She was provided w/list of infusion companies and she states okay w/[facility]. MANI VELÁSQUEZ contacted I and spoke w/Lulu. She ran financial benefits for Vanco (current dosage is 1,500 mg Q 8rs, but unsure at this time what pt would discharge on). Per uLlu, pt's [id number] cost would be $825.73/week and states they could set up a payment plan for over a years' time. made aware of same. She states does not feel this would be affordable for them, but also does not know how pt would tolerate going to a SNF, as he has severe anxiety. She states she will discuss things w/her . MANI VELÁSQUEZ to talk w/pt and tomorrow re: decision. did state, if they do decide to go home w/HHC her 1st choice would be [facility] and states if he does decide to go to a SNF, 1st choice would be [facility] TCU. Adore CRUZN MANI VELÁSQUEZ
--- NOTE | 2022-08-07 16:21 | CASEMGMT ---
Social work Pt needing IV antibiotics. RNCM darmandeep reports cost is significant and pt may need SNF but is discussing with family. Pt reported TCU would be first choice if SNF is needed. OLVIN reached out to Monica at TCU to ask about bed availability. Monica has open beds. Monica to discuss possiblity of acceptance for pt with OLVIN on tomorrow, Shell, if pt will need the SNF. COREY Vargas
[2022-08-07 16:30] LABS: Bedside Glucose 178 mg/dL (74-106)
[2022-08-07] MEDS: Tamsulosin HCl 0.4 MG Capsule 0.8 MG PO (17:07)
--- NOTE | 2022-08-07 18:06 | PCM.PN.HOSP ---
Subjective Subjective Patient was seen and examined today, he has been complaining of frequent urination, he continues to complain of some left hip discomfort-he was not able to tolerate a tagged white blood cell scan today due to the fact he was uncomfortable on the table downstairs, patient initially refused his STEFANIA today, he then consented to it but it was too late to do it today and so it will be performed tomorrow. Patient's blood culture done yesterday are pending. Objective Data Objective Data Vital Signs: Vital Signs Temp Pulse Resp BP Pulse Ox O2 Del Method O2 Flow Rate 97.6 F L 66 18 127/71 H 98 CPAP 2 08/07/22 15:25 08/07/22 15:25 08/07/22 15:25 08/07/22 15:25 08/07/22 15:25 08/07/22 15:25 08/07/22 00:37 FiO2 21 08/07/22 00:37 Oxygen Flow Rate (L/min) 2 Oxygen Delivery Method CPAP Weight: 128.954 kg Body Mass Index (BMI) 45.3 Intake & Output: Intake and Output for Last 24 Hours 08/05/22 08/06/22 08/07/22 23:59 23:59 23:59 Intake Total 4721.58 / 4721.58 4673.75 / 4673.75 2460 / 2460 Output Total 2400 / 3250 3250 / 3250 Balance 2321.58 / 1471.58 1423.75 / 1423.75 2460 / 2460 Lab / Micro Data Result Diagrams: 08/06/22 04:10 08/06/22 04:10 Labs: Laboratory Results - last 24 hr 08/06/22 20:30: Vancomycin Trough 13.0 08/06/22 20:58: POC Glucose 217 H 08/07/22 05:54: POC Glucose 181 H 08/07/22 11:04: POC Glucose 176 H 08/07/22 16:00: POC Glucose 178 H Micro: Microbiology 08/05/22 14:35 Blood Culture (Wb) - Right Hand Blood Culture - Preliminary Staphylococcus aureus 08/04/22 00:50 Blood Culture (Wb) - Right Hand Bacteria Detection (PCR) - Final Meth. resistant Staph. aureus 08/04/22 00:50 Blood Culture (Wb) - Right Hand Blood Culture - Final Meth. resistant Staph. aureus 08/04/22 01:30 EST Blood Culture (Wb) - Left Forearm Blood Culture - Final Staphylococcus aureus 08/04/22 01:18 EST Nasal Secretion SARS-CoV-2 & FLU Antigen (Rapid) - Final Physical Exam Narrative alert, oriented x3 and no apparent distress Constitutional Narrative: Patient is morbidly obese General Appearance: cooperative, well kempt and well developed Orientation / Consciousness: awake, oriented to person, oriented to place and oriented to time HEENT normocephalic and moist oral mucous membranes Eyes PERRL, EOMs intact bilaterally and conjunctivae normal Neck supple, no JVD, thyroid normal and no carotid bruits General: trachea midline Resp normal respiratory effort, no retractions, no use of accessory muscles and clear to auscultation bilaterally Auscultation: Negative for rales, rhonchi or wheezes Cardio regular rate, regular rhythm, S1 normal heart sound, S2 normal heart sound, no murmurs, no rub and no gallops GI normal to inspection, nondistended, normoactive bowel sounds, soft to palpation, non-tender and non-distended Extremity no clubbing, cyanosis or edema Skin no rashes or lesions noted General Skin Exam: no breakdown Neuro oriented x3, CN's II-XII intact bilaterally, no focal motor deficits and no sensory deficits noted Sensorium / Orientation: awake and alert Speech: speech normal Psych affect normal Assessment & Plan Assessment/Plan (1) MRSA bacteremia: PLAN: Plan 1. Sepsis secondary to MRSA bacteremia-the origin of the bacteremia is not known at this time, orthopedic surgery does not feel that it is due to an infected joint. Patient will have a STEFANIA tomorrow. #2 obstructive sleep apnea-patient uses CPAP while sleeping, this will be continued #3 chronic obstructive pulmonary disease-patient will remain on his present medications #4 morbid obesity-complicates care, management, recovery, and prognosis #5 type 2 diabetes-patient's blood sugars will be monitored, sliding scale insulin will be given as needed #6 Coronary artery disease-stable at this time #7 hypothyroidism-patient is on Synthroid #8 hyperlipidemia-patient is on Lipitor #9 essential hypertension-patient is currently on hydrochlorothiazide #10 osteoarthritis of the hips-I have changed the patient's pain medication to [place], patient's was concerned that his present pain medication was causing some confusion. Patient states he has been able to take [place] before without a problem. Charges/Coding Visit Charges Inpatient E&M: 54470 Subs Hosp L2
[2022-08-07 21:53] LABS: Vancomycin, Trough Level 14.9 ug/mL (5.0-15.0)
--- NOTE | 2022-08-07 22:01 | PCM.RX.CS ---
Consult Type of Consult: Follow-up Suspected Infection: Sepsis Labs: Sodium 135 mmol/L (136-145) L 08/06/22 04:10 Potassium 3.6 mmol/L (3.5-5.1) 08/06/22 04:10 Chloride 106 mmol/L (98-107) 08/06/22 04:10 Carbon Dioxide 23.0 mmol/L (21.0-32.0) 08/06/22 04:10 Anion Gap 6 (5-15) 08/06/22 04:10 BUN 15 mg/dL (7-18) 08/06/22 04:10 Creatinine 0.66 mg/dL (0.70-1.30) L 08/06/22 04:10 Est GFR (MDRD) Af Amer 153 mL/min (>60) 08/06/22 04:10 Est GFR (MDRD) Non-Af 127 mL/min (>60) 08/06/22 04:10 BUN/Creatinine Ratio 22.7 RATIO (10-20) H 08/06/22 04:10 Glucose 182 mg/dL (74-106) H 08/06/22 04:10 Vancomycin Trough 14.9 ug/mL (5.0-15.0) 08/07/22 21:00 Microbiology: Microbiology 08/05/22 14:35 Blood Culture (Wb) - Right Hand Blood Culture - Preliminary Staphylococcus aureus 08/04/22 00:50 Blood Culture (Wb) - Right Hand Bacteria Detection (PCR) - Final Meth. resistant Staph. aureus 08/04/22 00:50 Blood Culture (Wb) - Right Hand Blood Culture - Final Meth. resistant Staph. aureus 08/04/22 01:30 EST Blood Culture (Wb) - Left Forearm Blood Culture - Final Staphylococcus aureus 08/04/22 01:18 EST Nasal Secretion SARS-CoV-2 & FLU Antigen (Rapid) - Final Goal Trough: 15-20 mcg/mL Pharmacy Plan for Drug Dosing: VANCOMYCIN LEVEL RECEIVED Current Vancomycin Dose: 1500mg Q8H Number of Doses Received: 3 Vancomycin Level: 14.9 Hours Since Last Dose: 7.5 Renal Function: sCr 0.66 mg/dL Renal Function Trend: stable Vancomycin Plan/Comments: Continue Vancomycin 1500mg Q8H Pending Level: Vancomycin trough @ 2100 08/08/22 Pharmacy Service will continue to monitor and adjust dosing as required. Labs to be done on [date and time ordered]: Vancomycin trough @ 2100 08/08/22
[2022-08-07] MEDS: HYDROcodone Bitartrate/Apap 5/325 Tablet PO (22:09)
[2022-08-07] MEDS: Atorvastatin Calcium 20 MG Tablet PO (22:11)
--- NOTE | 2022-08-07 22:30 | CPS ---
Pt now has own CPAP unit from home that he is using for sleep tonight.
[2022-08-07 23:40] LABS: Bedside Glucose 190 mg/dL (74-106)
[2022-08-08] VITALS (10 sets, daily range): BP systolic 122–134; BP diastolic 57–68; PULSE 67–78; RESP 16–19; TEMP 35.8–37.3; O2SAT 95–98
[2022-08-08] MEDS: HYDROcodone Bitartrate/Apap 5/325 Tablet PO ×5 (02:54→20:57)
[2022-08-08] MEDS: Acetaminophen 325 MG Tablet 650 MG PO ×3 (06:14→20:58)
[2022-08-08] MEDS: Insulin Lispro 100 UNIT/ML INSULN.PEN SC ×3 (06:22→16:44)
[2022-08-08 07:15] LABS: Bedside Glucose 165 mg/dL (74-106)
[2022-08-08] MEDS: Lidocaine 5% Patch 2 PATCH TOPICAL (08:32)
--- NOTE | 2022-08-08 08:51 | NURSING ---
Left the unit to go for his STEFANIA, brought via bed by PATENT PROSECUTION PARALEGAL Radha.
--- NOTE | 2022-08-08 09:00 | ECHOTEE_ITS ---
Reason For Study: Bacteremia Medication STEFANIA probe 6VT-D (SN [id number]) passed with minimal difficulty. No complications were noted. [id number] gargled and swallowed. Versed 1 mg given slow IVP. Fentanyl 50 mcg given slow IVP. Performed a rapid injection of agitated mix of 9 cc saline and 1cc air to assess for atrial septal defect. Left Ventricle Normal LV size. The estimated ejection fraction is 55 %. Right Ventricle Normal RV size. Normal systolic function. Atria Bubble contrast study negative for right to left interatrial shunt. No doppler evidence for ASD. Normal left atrium. Normal right atrium. Mitral Valve There is no vegetation seen on the mitral valve. There is no mitral valve stenosis. Trivial mitral valve insufficiency. Tricuspid Valve No vegetations identified. There is no tricuspid stenosis. Aortic Valve Trisinus/trileaflet aortic valve. There is no aortic valvular vegetation. There is no aortic stenosis. No aortic valve insufficiency. Pulmonic Valve There is no vegetation on the pulmonic valve. ECHO/Echo Transesophageal (STEFANIA) Interpretation Summary The estimated ejection fraction is 55 %. Trivial mitral valve insufficiency. No vegetations visualized Ordering Physician: Florencio Morgan Referring Physician: Lauren Quick M.D. Performed By: Raina Urbina RDCS
--- NOTE | 2022-08-08 09:53 | PCM.PN.ID ---
Physical Exam Narrative STEFANIA this AM, hip a little less sore, no fever, no n/v/d. Const alert and no apparent distress Resp normal air movement and clear to auscultation bilaterally Cardio regular rate and regular rhythm GI soft to palpation, non-tender and non-distended Extremity General Extremity: edema Skin no rashes or lesions noted ID ID: Route of nutrition/ use of supplements: [] Nutritional Intake: [] IV Site: [] Rangel Catheter: [] Assessment & Plan Assessment/Plan (1) MRSA bacteremia: PLAN: sepsis due to MRSA bactermia, suspected source L hip infection s/p injection. Ortho following. Had dry tap of L hip. TTE showed no veg. Cont vanc. Fever resolved, STEFANIA pending, unable to tolerate wbc scan due to hip pain. Bcx now neg at 48h. If still neg, plan on picc tomorrow. Will follow
--- NOTE | 2022-08-08 10:45 | NURSING ---
Pt up to floor at 1010 this morning. Kathy RN informed this RN that vitals due in 5 min (1015) and then again in 15 min then pt is recovered. Kathy RN also informed this RN that pt can drink starting at 1045 and eat at 1245. Pt and both aware.
[2022-08-08] MEDS: Gabapentin 300 MG Capsule PO ×2 (12:18→16:40)
[2022-08-08 12:40] LABS: Bedside Glucose 163 mg/dL (74-106)
--- NOTE | 2022-08-08 13:01 | CASEMGMT ---
Social Work OLVIN spoke with Monica from TCU who states they are able to accept pt. SW met with pt and to discuss discharge plan. Discussed discharge options of home with home health or TCU for IV ATB. Pt stating they are now also considering [facility]. Pt stating she wants to talk to RNCM regarding cost of IV ATB at home prior to making a decision on discharge disposition. OLVIN updated RNCM who will speak with pt and regarding costs. OLVIN will continue to follow for d/c planning. COREY Oliveira
[2022-08-08] MEDS: Aspirin 81 MG TAB.CHEW PO (13:10)
[2022-08-08] MEDS: Enoxaparin 40 MG/0.4 ML Syringe SC (13:10)
[2022-08-08] MEDS: Hydroxyurea 500 MG Capsule PO (13:12)
[2022-08-08] MEDS: Metoprolol Tartrate 25 MG Tablet PO ×2 (13:12→21:03)
[2022-08-08] MEDS: hydroCHLOROthiazide 6.25mg TAB 12.5 MG PO (13:12)
--- NOTE | 2022-08-08 13:23 | CASEMGMT ---
Addendum entered by Carla Christensen 08/08/22 15:46: Dr Cabrera made aware of cost for IV atb's @ home and that pt does not wish to go to a SNF. Per Dr Cabrera, he has spoken w/Dr Morgan, and pt will be able to discharge home on PO Zyvox and cost will be approx $70. MANI VELÁSQUEZ to room and he is aware and states he has updated his as well. Call placed to [facility] and referral cancelled. Original Note: MANI VELÁSQUEZ NOTE: MANI VELÁSQUEZ placed call to [facility] earlier this morning and spoke w/Anne re: co-pay and [id number] cost. Anne checked on financials/benefits again to verify. She confirms total cost for pt would be $825.73/week based up on pt's current dose of Vanco @ 1,500 mg Q 8 hrs. 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 The remainder amt could be put on payment plan. MANI VELÁSQUEZ to room to talk w/both pt and re: cost of IV atb's and supplies and made aware of the above. They were also made aware the total cost would vary, based upon dosage and frequency of medication at discharge. /pt state they wish to think things over and will make a decision later today. They were also made aware HHC/SN would be covered at 100%. Adore CALDWELL RN, CM
--- NOTE | 2022-08-08 15:36 | PCM.PN.HOSP ---
Subjective Subjective Patient was seen and examined today, his STEFANIA was unremarkable, patient's blood culture on 08/06/2022 was negative at 48 hours. I talked with infectious diseases, it appears that the patient could be safe to go home on oral Zyvox for 2 weeks-I called and this would cost the patient approximately $70, otherwise patient will have to go to a residential to get IV vancomycin-he cannot afford to pay [id number] at home for the IV vancomycin. Patient agrees that he would like to go home and take oral medications rather than to go to a residential. Objective Data Objective Data Vital Signs: Vital Signs Temp Pulse Resp BP Pulse Ox O2 Del Method O2 Flow Rate 98.0 F 72 19 H 128/67 H 96 Room Air 2 08/08/22 10:35 08/08/22 13:12 08/08/22 10:35 08/08/22 10:35 08/08/22 10:35 08/08/22 10:35 08/08/22 02:53 FiO2 21 08/08/22 02:53 Oxygen Flow Rate (L/min) 2 Oxygen Delivery Method Room Air Weight: 128.954 kg Body Mass Index (BMI) 45.3 Intake & Output: Intake and Output for Last 24 Hours 08/06/22 08/07/22 08/08/22 23:59 23:59 23:59 Intake Total 4673.75 / 4673.75 2460 / 2660 1260 / 1260 Output Total 3250 / 3250 Balance 1423.75 / 1423.75 2460 / 2660 1260 / 1260 Lab / Micro Data Result Diagrams: 08/06/22 04:10 08/06/22 04:10 Labs: Laboratory Results - last 24 hr 08/07/22 16:00: POC Glucose 178 H 08/07/22 21:00: Vancomycin Trough 14.9 08/07/22 22:25: POC Glucose 190 H 08/08/22 06:21: POC Glucose 165 H 08/08/22 12:23: POC Glucose 163 H Micro: Microbiology 08/06/22 13:05 Blood Culture (Wb) - Anticubital Right Blood Culture - Preliminary No growth in 48 hours. 08/05/22 14:35 Blood Culture (Wb) - Right Hand Blood Culture - Final Staphylococcus aureus 08/04/22 00:50 Blood Culture (Wb) - Right Hand Bacteria Detection (PCR) - Final Meth. resistant Staph. aureus 08/04/22 00:50 Blood Culture (Wb) - Right Hand Blood Culture - Final Meth. resistant Staph. aureus 08/04/22 01:30 EST Blood Culture (Wb) - Left Forearm Blood Culture - Final Staphylococcus aureus 08/04/22 01:18 EST Nasal Secretion SARS-CoV-2 & FLU Antigen (Rapid) - Final Radiography Diagnostic Testing: Radiology Impression Transesophageal Echocardiogram 08/08/22 09:00 Interpretation Summary The estimated ejection fraction is 55 %. Trivial mitral valve insufficiency. No vegetations visualized Ordering Physician: Florencio Morgan Referring Physician: Lauren Quick M.D. Performed By: Raina Urbina RDCS Physical Exam Narrative alert, oriented x3 and no apparent distress Constitutional Narrative: Patient is morbidly obese General Appearance: cooperative, well kempt and well developed Orientation / Consciousness: awake, oriented to person, oriented to place and oriented to time HEENT normocephalic and moist oral mucous membranes Eyes PERRL, EOMs intact bilaterally and conjunctivae normal Neck supple, no JVD, thyroid normal and no carotid bruits General: trachea midline Resp normal respiratory effort, no retractions, no use of accessory muscles and clear to auscultation bilaterally Auscultation: Negative for rales, rhonchi or wheezes Cardio regular rate, regular rhythm, S1 normal heart sound, S2 normal heart sound, no murmurs, no rub and no gallops GI normal to inspection, nondistended, normoactive bowel sounds, soft to palpation, non-tender and non-distended Extremity no clubbing, cyanosis or edema Skin no rashes or lesions noted General Skin Exam: no breakdown Neuro oriented x3, CN's II-XII intact bilaterally, no focal motor deficits and no sensory deficits noted Sensorium / Orientation: awake and alert Speech: speech normal Psych affect normal Assessment & Plan Assessment/Plan (1) MRSA bacteremia: PLAN: Plan 1. Sepsis secondary to MRSA bacteremia-the origin of the bacteremia is not known at this time, orthopedic surgery does not feel that it is due to an infected joint. Patient's STEFANIA was unremarkable, patient will be reevaluated tomorrow for possible discharge on oral Zyvox x2 weeks. #2 obstructive sleep apnea-patient uses CPAP while sleeping, this will be continued #3 chronic obstructive pulmonary disease-patient will remain on his present medications #4 morbid obesity-complicates care, management, recovery, and prognosis #5 type 2 diabetes-patient's blood sugars will be monitored, sliding scale insulin will be given as needed #6 Coronary artery disease-stable at this time #7 hypothyroidism-patient is on Synthroid #8 hyperlipidemia-patient is on Lipitor #9 essential hypertension-patient is currently on hydrochlorothiazide #10 osteoarthritis of the hips-patient is currently taking [place] for hip discomfort Charges/Coding Visit Charges Inpatient E&M: 22945 Subs Hosp L2
[2022-08-08] MEDS: Tamsulosin HCl 0.4 MG Capsule 0.8 MG PO (16:40)
[2022-08-08 17:15] LABS: Bedside Glucose 213 mg/dL (74-106)
[2022-08-08] MEDS: Glucerna Shake 120 ML LIQUID PO (21:03)
[2022-08-08] MEDS: Atorvastatin Calcium 20 MG Tablet PO (21:04)
[2022-08-08] MEDS: MELATONIN 3 MG TABLET PO (21:04)
[2022-08-08 22:08] LABS: Vancomycin, Trough Level 19.6 ug/mL (5.0-15.0)
--- NOTE | 2022-08-08 22:12 | PCM.RX.CS ---
Consult Pharmacy has been consulted to manage selected antiobiotic: Vancomycin Type of Consult: Follow-up Prior Doses of Antibiotics Received/Current Regimen: Medications Vancomycin HCl 1,500 mg/ (Sodium Chloride) 530 mls @ 250 mls/hr IV Q8H PEPE Last Admin: 08/08/22 21:06 Dose: 250 mls/hr Labs: Sodium 135 mmol/L (136-145) L 08/06/22 04:10 Potassium 3.6 mmol/L (3.5-5.1) 08/06/22 04:10 Chloride 106 mmol/L (98-107) 08/06/22 04:10 Carbon Dioxide 23.0 mmol/L (21.0-32.0) 08/06/22 04:10 Anion Gap 6 (5-15) 08/06/22 04:10 BUN 15 mg/dL (7-18) 08/06/22 04:10 Creatinine 0.66 mg/dL (0.70-1.30) L 08/06/22 04:10 Est GFR (MDRD) Af Amer 153 mL/min (>60) 08/06/22 04:10 Est GFR (MDRD) Non-Af 127 mL/min (>60) 08/06/22 04:10 BUN/Creatinine Ratio 22.7 RATIO (10-20) H 08/06/22 04:10 Glucose 182 mg/dL (74-106) H 08/06/22 04:10 Vancomycin Trough 19.6 ug/mL (5.0-15.0) H 08/08/22 20:57 Microbiology: Microbiology 08/06/22 13:05 Blood Culture (Wb) - Anticubital Right Blood Culture - Preliminary No growth in 48 hours. 08/05/22 14:35 Blood Culture (Wb) - Right Hand Blood Culture - Final Staphylococcus aureus 08/04/22 00:50 Blood Culture (Wb) - Right Hand Bacteria Detection (PCR) - Final Meth. resistant Staph. aureus 08/04/22 00:50 Blood Culture (Wb) - Right Hand Blood Culture - Final Meth. resistant Staph. aureus 08/04/22 01:30 EST Blood Culture (Wb) - Left Forearm Blood Culture - Final Staphylococcus aureus 08/04/22 01:18 EST Nasal Secretion SARS-CoV-2 & FLU Antigen (Rapid) - Final Weight used for dosin kg Goal Trough: 15-20 mcg/mL Pharmacy Plan for Drug Dosing: Trough in goal range. Recommend to continue current dosing and re-check in 48 hours to avoid accumulation. Pharmacy Service will continue to monitor and adjust dosing as required. Follow-Up Labs: Trough Vancomycin - 08/10 @ 2100
[2022-08-08 23:45] LABS: Bedside Glucose 148 mg/dL (74-106)
[2022-08-09] VITALS (7 sets, daily range): BP systolic 130–140; BP diastolic 68–76; PULSE 70–80; RESP 14–20; TEMP 36.2–36.8; O2SAT 95–99
[2022-08-09] MEDS: HYDROcodone Bitartrate/Apap 5/325 Tablet PO ×3 (01:32→11:10)
[2022-08-09] MEDS: Levothyroxine 75 MCG Tablet 225 MCG PO (06:07)
[2022-08-09] MEDS: Insulin Lispro 100 UNIT/ML INSULN.PEN SC ×2 (06:24→12:21)
[2022-08-09 07:26] LABS: Bedside Glucose 168 mg/dL (74-106)
[2022-08-09] MEDS: Acetaminophen 325 MG Tablet 650 MG PO (08:13)
[2022-08-09] MEDS: Aspirin 81 MG TAB.CHEW PO (08:13)
[2022-08-09] MEDS: Gabapentin 300 MG Capsule PO ×2 (08:14→12:16)
[2022-08-09] MEDS: Glucerna Shake 120 ML LIQUID PO (09:33)
[2022-08-09] MEDS: hydroCHLOROthiazide 6.25mg TAB 12.5 MG PO (09:33)
[2022-08-09] MEDS: Metoprolol Tartrate 25 MG Tablet PO (09:33)
[2022-08-09] MEDS: Hydroxyurea 500 MG Capsule PO (09:34)
[2022-08-09] MEDS: Lidocaine 5% Patch 2 PATCH TOPICAL (09:34)
[2022-08-09] MEDS: Enoxaparin 40 MG/0.4 ML Syringe SC (09:34)
--- NOTE | 2022-08-09 09:47 | CASEMGMT ---
MANI CM in to pt room, pt is in need of FWW. Provided pt with a verbal local in network list of DME companies, pt chose [employer]. Pt denies further homegoing needs at this time. Received signed script for FWW, referral sent to [facility] via careport and email to hospital liasion.
--- NOTE | 2022-08-09 11:46 | PCM.DC ---
Discharge Instructions Diet Discharge Diet: 1800 Calorie Control Diet Activity Discharge Activity: Return to Normal Activity Weight Bearing Status: Full weight bearing Follow Up Care Test Results: Test results from this visit will be discussed in further detail at your follow-up appointment, if applicable. Discharge Plan Admission Admit Date/Time: 08/04/22 10:06 Primary Reason for Your Visit: MRSA bacteremia Attending Provider: Vincent Cabrera Primary Care Provider: Lauren Quick Consulting Providers: Shannan Acosta ; Laurie Duran ; Florencio Morgan ; Rissa Galicia ; Morales Storey ; Mino Ramos ; Griffin Ruiz ; Sean Owens ; Toma Morley TILTING SAW OPERATOR ; Anshul Arboleda ; Mauri Dumas ; Bakari Solis Discharge Orders/Prescriptions Prescriptions: New hydrocodone-acetaminophen 5-325 mg Tablet 1 tab PO Q4H PRN PRN (Reason: Pain Score 4-10) 7 Days Qty: 20 0RF tamsulosin 0.4 mg Capsule 0.8 mg PO DAILY@1730 Qty: 60 0RF linezolid [Zyvox] 600 mg tablet 600 mg PO BID Qty: 28 0RF Rx Instructions: start on 08/09/22 Continued Adult Probiotic 3 billion cell capsule 3,000 mmu cells PO DAILY Rx Instructions: administer with a meal omega-3 fatty acids [Fish Oil Concentrate] 1,000 mg capsule 1,000 mg PO DAILY multivitamin Tablet 1 tab PO DAILY aspirin 81 MG tablet,chewable 81 mg PO DAILY@0800 Label Comments: heart health hydroxyurea 500 mg capsule 500 mg PO DAILY hydrocodone-acetaminophen 5-325 mg Tablet 1 tab PO Q8H PRN (Reason: Pain) metformin 1,000 mg tablet 1,000 mg PO 1000,1500 Rx Instructions: 1,000 mg in am and 1,500 in pm levothyroxine 200 mcg tablet 225 mcg PO DAILY Rx Instructions: take with a 25 mcg rosuvastatin 10 mg tablet 10 mg PO QHS metoprolol succinate 25 mg tablet extended release 24 hr 25 mg PO QHS Qty: 90 3RF furosemide 40 mg tablet 40 mg PO DAILY Qty: 90 3RF gabapentin 100 mg capsule 100 mg PO .COMPLEX Qty: 450 3RF Rx Instructions: 100 mg PO; one in am, one in afternoon, and three in the evening glipizide 5 mg tablet extended release 24hr 5 mg PO DAILY Qty: 90 3RF valsartan-hydrochlorothiazide 80-12.5 mg tablet 1 tab PO DAILY Qty: 90 3RF Referrals / Follow Up: Lauren Quick MD [Primary Care Provider] - Within 2 Weeks Disposition Disposition (needs filled in before D/C Order can be placed): Home, Self Care
--- NOTE | 2022-08-09 11:53 | DS.PCM_ITS ---
Providers Date of Admission: 08/04/22 Date of Discharge: 08/09/22 Primary Care Physician: Dr. Lauren Quick MD Consultations 08/03/22 17:14 Consult: Pain Management Routine Consulting Provider: Bakari Solis Reason for Consult: Intractable L hip pain, recent injection EMERGENT Consult: No MD Notified: Yes Date Notified: 08/03/22 Time Notified: 16:45 Method of Notification: ED Physician Initiated 08/04/22 08:59 Consult: Orthopedics Routine Consulting Provider: Mauri Dumas Reason for Consult: Recent BL hip inj, intractable L hip pain, LA 6.8, CRP >100, ?septic joint EMERGENT Consult: No MD Notified: Yes Date Notified: 08/04/22 Time Notified: 10:59 Method of Notification: Answering Service 08/04/22 09:05 Consult: Licensing Services Clerk / Pulmonary Medicine Routine Consulting Provider: Pulmonary Medicine [facility] Reason for Consult: Tachy, tachypneic, LA 6.8, transferring to ICU EMERGENT Consult: No MD Notified: Yes Date Notified: 08/04/22 Time Notified: 11:01 Method of Notification: Text 08/05/22 07:00 Consult: Interventional Radiology Routine Consulting Provider: Anshul Arboleda Reason for Consult: Left Hip Aspiration EMERGENT Consult: No MD Notified: Yes Date Notified: 08/04/22 Time Notified: 10:18 Method of Notification: Text 08/05/22 09:44 Consult: Infectious Disease Routine Consulting Provider: Florencio Morgan Reason for Consult: MRSA bacteremia EMERGENT Consult: No MD Notified: Yes Date Notified: 08/05/22 Time Notified: 09:44 Method of Notification: Verbal Reason For Visit: INTRACTABLE L HIP PAIN Diagnosis Discharge Diagnosis (1) MRSA bacteremia: Status: Acute Code(s): R78.81 - Bacteremia; B95.62 - Methicillin resistant Staphylococcus aureus infection as the cause of diseases classified elsewhere Plan 1. Sepsis secondary to MRSA bacteremia-the origin of the bacteremia is not known at this time, orthopedic surgery does not feel that it is due to an infected joint. Patient's STEFANIA was unremarkable, patient will be reevaluated tomorrow for possible discharge on oral Zyvox x2 weeks. #2 obstructive sleep apnea-patient uses CPAP while sleeping, this will be continued #3 chronic obstructive pulmonary disease-patient will remain on his present medications #4 morbid obesity-complicates care, management, recovery, and prognosis #5 type 2 diabetes-patient's blood sugars will be monitored, sliding scale insulin will be given as needed #6 Coronary artery disease-stable at this time #7 hypothyroidism-patient is on Synthroid #8 hyperlipidemia-patient is on Lipitor #9 essential hypertension-patient is currently on hydrochlorothiazide #10 osteoarthritis of the hips-patient is currently taking [place] for hip discomfort Medications at Discharge Home Medications aspirin 81 mg chewable tablet 81 mg PO DAILY@0800 ANTIPLATELET 03/17/16 hydroxyurea 500 mg capsule 500 mg PO DAILY 12/17/18 lactobacillus combination no.8 3 billion cell capsule (Adult Probiotic) 3,000 mmu cells PO DAILY 02/08/21 multivitamin 1 tab PO DAILY 02/08/21 omega-3 fatty acids 1,000 mg capsule (Fish Oil Concentrate) 1,000 mg PO DAILY 0 02/08/21 metoprolol succinate 25 mg tablet,extended release 24 hr 25 mg PO QHS BLOOD PRESSURE #90 tabs 09/24/21 furosemide 40 mg tablet 40 mg PO DAILY LEG edema #90 tabs 03/25/22 gabapentin 100 mg capsule 100 mg PO .COMPLEX #450 caps 06/11/22 glipizide 5 mg tablet, extended release 24 hr 5 mg PO DAILY #90 tabs 07/02/22 valsartan 80 mg-hydrochlorothiazide 12.5 mg tablet 1 tab PO DAILY #90 tabs 07/16/22 hydrocodone-acetaminophen 5-325mg 5mg-325mg 1 tab PO Q8H PRN Pain 08/03/22 levothyroxine 200 mcg tablet 225 mcg PO DAILY thyroid 08/03/22 metformin 1,000 mg tablet 1,000 mg PO 1000,1500 DIABETES 08/03/22 rosuvastatin 10 mg tablet 10 mg PO QHS 08/03/22 hydrocodone-acetaminophen 5-325mg 5mg-325mg 1 tab PO Q4H PRN PRN Pain Score 4-10 7 days #20 tabs 08/09/22 linezolid 600 mg tablet (Zyvox) 600 mg PO BID #28 tabs 08/09/22 tamsulosin 0.4 mg capsule 0.8 mg PO DAILY@1730 #60 caps 08/09/22 Hospital Course Operations None Procedures 2-D Echocardiogram, Transesophageal Echo and - (Aspiration of left hip joint) Summary of Care Provided Minutes Spent on Discharge: 33 Hospital Course: This 67-year-old white male was seen in the emergency room at [facility] with chief complaint of right and left hip pain, patient follows with pain management as an outpatient and had his hips injected a few days prior. IV pain medication was given in the emergency room, labs were obtained which showed an elevated white blood cell count of 15.6, chemistry panel was unremarkable, patient continued to have significant hip pain was unable to ambulate, CT of the pelvis was obtained that did not show any evidence of acute fracture but showed degenerative arthrosis of the bilateral hips. Patient was admitted to [place] [id number] for intractable hip pain, treated with IV antibiotics, after admission patient started having elevated temperatures up to 103.2, UA and blood cultures were obtained, chest x-ray was performed which showed no evidence of pneumonia, C- reactive protein was elevated at 157, MRI of the left hip was ordered, vancomycin and Zosyn was initiated after blood cultures were obtained. Patient was seen by orthopedic surgery who did not feel the patient had a septic joint, patient refused MRI due to concerns of claustrophobia, he underwent a left hip aspiration by radiology but no fluid was obtained. Patient's blood culture came back positive for MRSA the etiology of the MRSA was unknown, patient underwent a transthoracic echo and transesophageal echo which did not show any evidence of vegetations. Patient refused a white blood cell scan due to complaints of hip pain. Patient was seen in consultation by infectious diseases. Patient's condition improved during his hospitalization, he received IV vancomycin and it was suggested that he continue antibiotics as an outpatient-it was felt appropriate oral antibiotics could be given (Zyvox) and the patient requested discharge home rather than go to an extended care facility. On 08/09/2022, patient was seen and examined: On examination he appeared in good health and spirits. Vital signs as documented. Skin warm and dry and without overt rashes. Neck without JVD, neck was supple, trachea midline, thyroid was normal. Lungs clear bilaterally, normal air movement was noted. Heart exam notable for regular rhythm, normal sounds and absence of murmurs, rubs or gallops. Abdomen unremarkable and without evidence of organomegaly, masses, or abdominal aortic enlargement. Bowel sounds are present, abdomen is not distended. Extremities nonedematous, no cyanosis was noted, no clubbing was noted. Neuro: Cranial nerves II through XII are grossly intact, no focal motor deficits were noted, sensation to light touch and pinprick intact, motor exam 5/5 throughout. Psych: Patient is alert and oriented x3, he does not appear anxious or depressed, he does not appear agitated. Patient was felt stable for discharge home on 08/09/2022. Weight / BMI Weight Weight: 127.3 kg Body Mass Index (BMI) 45.3 ABG / Lab / Microbiology Data Result Diagrams: 08/06/22 04:10 08/06/22 04:10 Laboratory: Laboratory Results - last 24 hr 08/08/22 12:23: POC Glucose 163 H 08/08/22 16:44: POC Glucose 213 H 08/08/22 20:57: Vancomycin Trough 19.6 H 08/08/22 21:01: POC Glucose 148 H 08/09/22 06:22: POC Glucose 168 H Microbiology: Microbiology 08/07/22 13:48 Blood Culture (Wb) - Anticubital Right Blood Culture - Preliminary No growth in 48 hours. 08/06/22 13:05 Blood Culture (Wb) - Anticubital Right Blood Culture - Preliminary No growth in 48 hours. 08/05/22 14:35 Blood Culture (Wb) - Right Hand Blood Culture - Final Staphylococcus aureus 08/04/22 00:50 Blood Culture (Wb) - Right Hand Bacteria Detection (PCR) - Final Meth. resistant Staph. aureus 08/04/22 00:50 Blood Culture (Wb) - Right Hand Blood Culture - Final Meth. resistant Staph. aureus 08/04/22 01:30 EST Blood Culture (Wb) - Left Forearm Blood Culture - Final Staphylococcus aureus 08/04/22 01:18 EST Nasal Secretion SARS-CoV-2 & FLU Antigen (Rapid) - Final D/C Instructions Discharge Diet: 1800 Calorie Control Diet Weight Bearing Status: Full weight bearing Meaningful Use Info Meaningful Use Diagnoses (Choose all that apply): None applicable Discharge Plan Admission Admit Date/Time: 08/04/22 10:06 Primary Reason for Your Visit: MRSA bacteremia Attending Provider: Vincent Cabrera Primary Care Provider: Lauren Quick Consulting Providers: Shannan Acosta ; Laurie Duran ; Florencio Morgan ; Rissa Johnson ; Morales Storey ; Mino Ramos ; Griffin Ruiz ; Sean Owens ; Toma Morley TESTER VIBRATOR EQUIPMENT ; Anshul Arboleda ; Mauri Dumas ; Bakari Solis Discharge Orders/Prescriptions Prescriptions: New hydrocodone-acetaminophen 5-325 mg Tablet 1 tab PO Q4H PRN PRN (Reason: Pain Score 4-10) 7 Days Qty: 20 0RF tamsulosin 0.4 mg Capsule 0.8 mg PO DAILY@1730 Qty: 60 0RF linezolid [Zyvox] 600 mg tablet 600 mg PO BID Qty: 28 0RF Rx Instructions: start on 08/09/22 Continued Adult Probiotic 3 billion cell capsule 3,000 mmu cells PO DAILY Rx Instructions: administer with a meal omega-3 fatty acids [Fish Oil Concentrate] 1,000 mg capsule 1,000 mg PO DAILY multivitamin Tablet 1 tab PO DAILY aspirin 81 MG tablet,chewable 81 mg PO DAILY@0800 Label Comments: heart health hydroxyurea 500 mg capsule 500 mg PO DAILY hydrocodone-acetaminophen 5-325 mg Tablet 1 tab PO Q8H PRN (Reason: Pain) metformin 1,000 mg tablet 1,000 mg PO 1000,1500 Rx Instructions: 1,000 mg in am and 1,500 in pm levothyroxine 200 mcg tablet 225 mcg PO DAILY Rx Instructions: take with a 25 mcg rosuvastatin 10 mg tablet 10 mg PO QHS metoprolol succinate 25 mg tablet extended release 24 hr 25 mg PO QHS Qty: 90 3RF furosemide 40 mg tablet 40 mg PO DAILY Qty: 90 3RF gabapentin 100 mg capsule 100 mg PO .COMPLEX Qty: 450 3RF Rx Instructions: 100 mg PO; one in am, one in afternoon, and three in the evening glipizide 5 mg tablet extended release 24hr 5 mg PO DAILY Qty: 90 3RF valsartan-hydrochlorothiazide 80-12.5 mg tablet 1 tab PO DAILY Qty: 90 3RF Referrals / Follow Up: Lauren Quick MD [Primary Care Provider] - Within 2 Weeks Disposition Disposition (needs filled in before D/C Order can be placed): Home, Self Care Charges/Coding Visit Charges Inpatient E&M: 68350 Disch Hosp
--- NOTE | 2022-08-09 12:15 | PCM.PN.ID ---
Physical Exam Narrative Feeling well, no fever, hip less sore Const alert and no apparent distress Resp normal air movement and clear to auscultation bilaterally Cardio regular rate and regular rhythm GI soft to palpation, non-tender and non-distended Extremity General Extremity: edema Skin no rashes or lesions noted ID ID: Route of nutrition/ use of supplements: [] Nutritional Intake: [] IV Site: [] Rangel Catheter: [] Assessment & Plan Assessment/Plan (1) MRSA bacteremia: PLAN: sepsis due to MRSA bactermia, suspected source L hip infection s/p injection. Ortho following. Had dry tap of L hip. TTE showed no veg. Cont vanc. Fever resolved, STEFANIA neg, unable to tolerate wbc scan due to hip pain. Bcx now neg at 48h. Ok for home with 2 weeks po linezolid. Will follow D/w primary team
[2022-08-09 12:45] LABS: Bedside Glucose 159 mg/dL (74-106)
--- NOTE | 2022-08-09 13:00 | CHAPLAIN ---
Type of Pastoral Visit ___ Initial Visit _x__ Follow-up Visit ___ On-call Visit ___ General Patient Visit ___ Spiritual Assessment ___ Family Conference ___ Bereavement ___ Rapid Response ___ Code Blue ___ Other (describe below) Pastoral Care Referral From _x__ Patient ___ Family ___ Nurse ___ Physician ___ Towboat Operator ___ Telegraphic Service Dispatcher ___ Other (describe below) Sacrament/Intervention _x__ Active listening ___ Anointing ___ Cheondoism ___ Bereavement ___ Communion ___ Rula exploration ___ ___ Life review _x__ Prayer ___ Reconciliation ___ Sacrament of Sick ___ Supportive presence ___ Wedding ___ Other (describe below) Pastoral Comments follow up as patient requested; pt to be discharged today and very thankful; pt acknowledges answers to prayer on his behalf; pt looking forward to 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
== END 2022-08-09 13:54 | disposition home or self-care (01) | DRG 871 ==
LOC: ED 16:23 → MS3 16:57 → ICU 08-04 09:20 → MS3 08-06 15:46
PROVIDERS: Internal Medicine; Admitting Provider Family Medicine; Emergency Provider Student in an Organized Health Care Education/Training Program; PCP Internal Medicine; Visit Provider Internal Medicine
DX: A41.02 Sepsis due to Methicillin resistant Staphylococcus aureus (principal); G93.41 Metabolic encephalopathy; E87.20 Acidosis, unspecified; Z68.42 Body mass index [BMI] 45.0-49.9, adult; E11.40 Type 2 diabetes mellitus with diabetic neuropathy, unspecified; J44.9 Chronic obstructive pulmonary disease, unspecified; E66.01 Morbid (severe) obesity due to excess calories; E11.65 Type 2 diabetes mellitus with hyperglycemia; M16.0 Bilateral primary osteoarthritis of hip; I25.10 Atherosclerotic heart disease of native coronary artery without angina pectoris; G47.33 Obstructive sleep apnea (adult) (pediatric); E03.9 Hypothyroidism, unspecified; E78.5 Hyperlipidemia, unspecified; I10 Essential (primary) hypertension; F41.9 Anxiety disorder, unspecified; M25.552 Pain in left hip; Z79.02 Long term (current) use of antithrombotics/antiplatelets; Z87.891 Personal history of nicotine dependence; Z79.82 Long term (current) use of aspirin; G89.4 Chronic pain syndrome; R53.81 Other malaise; Z80.3 Family history of malignant neoplasm of breast; Z90.5 Acquired absence of kidney; B95.62 Methicillin resistant Staphylococcus aureus infection as the cause of diseases classified elsewhere
CPT/HCPCS: 36415; 51702; 71045; 72193; 77002; 80048; 80053; 80202; 81001; 82962; 83605; 83880; 85025; 85379; 85652; 86140; 87040; 87077; 87149; 87186; 87428; 93306; 93312; 93320; 93325; 93970; 94660; 97110; 97116; 97162; 97166; 97530; 97535; 99251; 99285; J7030; J7040; J7050; Q9967; A4216; G0463; J2405

== ENCOUNTER → 2022-08-30 | Outpatient (CLI) | payer MEDICARE, BC, SELFPAY ==
[2022-08-30 15:44] LABS: Absolute Lymphocyte Count 1.54 X10^3/uL (0.83-4.51); Absolute Neutrophil Count 6.8 X10^3/uL (2.0-7.7); Basophil# 0.06 X10^3/uL; Basophil% 0.6 % (0-1); Eosinophil# 0.11 X10^3/uL; Eosinophils% 1.1 % (0-5); Hematocrit 40.4 % (40-54); Hemoglobin 13.4 g/dL (13.0-16.5); Lymphocyte # 1.54 X10^3/ul (0.83-4.51); Lymphocyte % 16.1 % (19-41); Mean Corp Hgb Conc 33.2 g/dL (32-36); Mean Corpuscular Volume 96.4 fL (80-94); Mean Platelet Vol. 9.8 fl (6.2-12.0); Monocyte# 1.02 X10^3/uL; Monocyte% 10.6 % (0-10); NRBC Flagged by Analyzer 0 % (0-5); Neutrophil # 6.79 X10^3/uL (2.7-7.7); Platelet Count 340 K/mm3 (150-450); RBC Distribution Width CV 13.6 % (11.6-14.6); RBC Distribution Width SD 48.6 fl (35.1-43.9); Red Blood Count 4.19 M/mm3 (4.6-6.2); White Blood Count 9.6 K/mm3 (4.4-11.0)
[2022-08-30 16:09] LABS: Erythrocyte Sedimentation Rate 63 mm/hr (0-20)
[2022-08-30 16:13] LABS: ALB/GLOB Ratio 0.5 RATIO (0.9-2.4); AST(SGOT) 21 U/L (15-37); Alanine Aminotransfer ALT/SGPT 29 U/L (16-61); Albumin, Serum 3.1 g/dL (3.2-5.0); Alkaline Phosphatase 75 U/L (45-117); Anion Gap 7 (5-15); BUN 10 mg/dL (7-18); BUN/Creat Ratio 12.9 RATIO (10-20); Calcium,Total 10.1 mg/dL (8.5-10.1); Chloride 97 mmol/L (98-107); Creatinine, Serum 0.78 mg/dL (0.70-1.30); EST Glomerular Filtration Rate 105 mL/min (>60); Est Glom Filt Rate - Afr Amer 127 mL/min (>60); Globulin 5.8 g/dL (2.2-4.2); Glucose 111 mg/dL (74-106); Potassium 3.8 mmol/L (3.5-5.1); Protein, Total 8.9 g/dL (6.4-8.2); Sodium Level 130 mmol/L (136-145)
== END | disposition home or self-care (01) ==
LOC: BIMLAB 12:43
PROVIDERS: PCP Internal Medicine; Referring Provider Internal Medicine; Visit Provider Internal Medicine
DX: A41.9 Sepsis, unspecified organism (principal); E03.9 Hypothyroidism, unspecified; R78.81 Bacteremia; B95.62 Methicillin resistant Staphylococcus aureus infection as the cause of diseases classified elsewhere; I95.9 Hypotension, unspecified; M25.559 Pain in unspecified hip
CPT/HCPCS: 36415; 80053; 85025; 85652; 86140

== ENCOUNTER 2022-09-13 08:16 | Emergency (ER) | payer MEDICARE, BC, SELFPAY ==
[2022-09-13 08:16] VITALS: BP 136/85; PULSE 102; RESP 24; TEMP 36; O2SAT 100; BMI 38.7
[2022-09-13 08:27] VITALS: O2SAT 98
[2022-09-13 08:29] VITALS: O2SAT 99
--- NOTE | 2022-09-13 09:04 | EKG12_ITS ---
Test Reason : SOB Blood Pressure : / mmHG Vent. Rate : 088 BPM Atrial Rate : 088 BPM P-R Int : 168 ms QRS Dur : 096 ms QT Int : 398 ms P-R-T Axes : 047 -45 014 degrees QTc Int : 481 ms Normal sinus rhythm with sinus arrhythmia Left axis deviation Prolonged QT Abnormal ECG Confirmed by SIRIA MICHELLE, TERELL ([id number]), food expeditor JN PAZ ([id number]) on 09/16/2022 12:58:49 PM Referred By: THANG Confirmed By:TERELL BEVERLY MD
--- NOTE | 2022-09-13 09:06 | ED.VIS.DYS ---
HPI History of Present Illness Chief Complaint: Shortness of Breath Detail of Chief Complaint: Shortness of breath that started yesterday afternoon. Informant: patient Narrative Narrative: Patient presents with shortness of breath that started yesterday afternoon. Patient states that he was unable to use his CPAP that he normally uses at night and felt dyspneic throughout the night. Patient denies fever or cough. He denies chest pain. He does have history of COPD but does not wear home O2. Does have history of CHF that stable. Patient does have remote history of DVT with PE but is not currently anticoagulated. Patient denies recent travel or surgery. Patient did have a hospitalization within the last 2 months for sepsis. He has a degenerated left hip that is can require surgery. [facility] Medical History Anemia Asthma Atherosclerotic heart disease of [place] coronary artery without angina pectoris Back pain Benign prostatic hypertrophy COPD (chronic obstructive pulmonary disease) DDD (degenerative disc disease), cervical Degeneration of intervertebral disc of lumbar region Degenerative disc disease, cervical Depression Diabetes CLARK (dyspnea on exertion) Essential (primary) hypertension Hearing difficulty of both ears History of renal cell cancer Hyperlipidemia Hypothyroidism Instability of medial collateral ligament of knee Kidney disease Lesion of sciatic nerve Lung disease Meniscus degeneration Nephrolithiasis Obesity Obstructive sleep apnea Osteoarthritis, knee Other mcc (current) 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 Over 63 years old Palpitations Polycythemia Precordial chest pain Pulmonary embolism (06/21/18) Restless legs syndrome Right elbow pain Right knee pain Rupture of right biceps tendon Sciatica Scoliosis of thoracic spine Secondary polycythemia Segmental and somatic dysfunction of cervical region Segmental and somatic dysfunction of cervical region Segmental and somatic dysfunction of lumbar region Segmental and somatic dysfunction of lumbar region Segmental and somatic dysfunction of pelvic region Segmental and somatic dysfunction of thoracic region Segmental and somatic dysfunction of thoracic region Shortness of breath Thyroid disease Tinnitus of both ears Trochanteric bursitis, left hip Type II diabetes mellitus Home Medications aspirin 81 mg chewable tablet 81 mg PO DAILY@0800 ANTIPLATELET 03/17/16 [History Last Taken 09/12/22] hydroxyurea 500 mg capsule 500 mg PO DAILY 12/17/18 [History Last Taken 09/12/22] lactobacillus combination no.8 3 billion cell capsule (Adult Probiotic) 3,000 mmu cells PO DAILY 02/08/21 [History Last Taken 09/12/22] multivitamin 1 tab PO DAILY 02/08/21 [History Last Taken 09/12/22] omega-3 fatty acids 1,000 mg capsule (Fish Oil Concentrate) 1,000 mg PO DAILY 02/08/21 [History Last Taken 09/12/22] metoprolol succinate 25 mg tablet,extended release 24 hr 25 mg PO QHS BLOOD PRESSURE #90 tabs 09/24/21 [Rx Last Taken 09/12/22] glipizide 5 mg tablet, extended release 24 hr 5 mg PO DAILY #90 tabs 07/02/22 [Rx Last Taken 09/12/22] valsartan 80 mg-hydrochlorothiazide 12.5 mg tablet 1 tab PO DAILY #90 tabs 07/16/22 [Rx Last Taken 09/12/22] levothyroxine 200 mcg tablet 225 mcg PO DAILY thyroid 08/03/22 [History Last Taken 09/12/22] metformin 1,000 mg tablet 1,000 mg PO 1000,1500 DIABETES 08/03/22 [History Last Taken 09/12/22] tamsulosin 0.4 mg capsule 0.8 mg PO DAILY@1730 #60 caps 08/09/22 [Rx Last Taken 09/12/22] hydrocodone-acetaminophen 5-325mg 5mg-325mg 1 tab PO Q4H PRN PRN Pain Score 4-10 7 days #30 tabs 09/09/22 [Rx Last Taken 09/13/22] gabapentin 100 mg capsule 100 - 300 mg PO DAILY 09/13/22 [History Last Taken 09/12/22] prednisone 20 mg tablet 20 mg PO BID #6 tabs 09/13/22 [Rx Last Taken Unknown] Allergy/AdvReac Type Severity Reaction Status Date / Time sitagliptin [From ] Allergy Severe Rash Verified 08/26/22 11:37 theophylline Allergy Unknown Verified 08/26/22 11:37 Family History Mother CAD (coronary artery disease) Breast cancer Diabetes Surgical History H/O lithotripsy History of coronary artery stent placement (05/24/11) History of left heart catheterization (06/19/18) History of partial nephrectomy History of tonsillectomy Hx of cataract surgery L eye surgery partial nephrectomy for renal cell cancer Social History household members: spouse Smoking Status: Former smoker quit date: 09/29/84 pack-years: 17 how long ago did patient quit smokin, 1.5/d second hand exposure: Yes alcohol intake: never substance use type: does not use ROS ROS ED Review of Systems ROS Unobtainable: other Constitutional Constitutional ED: Reports lethargy; Denies chills, fever(s), sweats or weight loss Eyes Eyes: Denies blurry vision, change in vision or diplopia ENT ENT ED: Denies rhinorrhea or sore throat Cardiovascular Cardiovascular: Denies chest pain, orthopnea or racing heartbeat Respiratory/Chest Respiratory/Chest: Reports dyspnea and dyspnea on exertion; Denies cough, orthopnea or sputum Gastrointestinal Gastrointestinal: Denies abdominal pain, diarrhea, nausea or vomiting Genitourinary Genitourinary ED: Denies dysuria, hematuria or urinary frequency Musculoskeletal Musculoskeletal: Denies arthralgias, back pain, myalgias or neck pain Integumentary Denies abscess, Abrasions or rash Neurologic Neurologic: Denies headache(s) or weakness Psychiatric Psychiatric: Denies anxiety, depression or suicidal thoughts Endocrine Endocrinology: Denies polydipsia, polyphagia or polyuria Hematologic/Lymphatic Hematologic/Lymphatic: Denies easy bleeding, easy bruising or lymphadenopathy Allergic/Immunologic Allergic/Immunologic ED: Denies mouth swelling, tongue swelling or urticaria EXAM Physical Exam Const Vital Signs: 09/13/22 08:16 09/13/22 08:27 09/13/22 08:29 Temperature 96.8 F L Temperature Source Temporal Pulse Rate 102 H Respiratory Rate 24 H Respiratory Effort Short of Breath Labored Blood Pressure 136/85 H Blood Pressure Mean 102 Pulse Ox 100 99 Oxygen Delivery Method Room Air Room Air Room Air 09/13/22 09:27 09/13/22 10:41 Temperature Temperature Source Pulse Rate 106 H 108 H Respiratory Rate 22 H 20 H Respiratory Effort Blood Pressure 133/68 H Blood Pressure Mean 89 Pulse Ox 98 Oxygen Delivery Method Room Air Positive well nourished and well developed General Appearance ED: well developed and NAD HEENT Reports TM's clear and moist mucous membranes normocephalic and atraumatic; Negative for trauma or tenderness Tympanic Membrane ED: Yes TM's clear Eyes PERRL and EOMs intact bilaterally General Eye ED: Negative for pale conjunctiva or scleral icterus Neck no lymphadenopathy, supple and no JVD General: Negative for tenderness Chest Wall inspection of chest normal and palpation of chest normal Chest: Negative for tenderness Resp normal respiratory effort and clear to auscultation bilaterally Effort and Inspection: Negative for respiratory distress or pain with movement Auscultation: Negative for rhonchi, wheezes or diminished lung sounds Cardio regular rate, regular rhythm, S1 normal heart sound, S2 normal heart sound and no murmurs Peripheral Pulses: pulses 2+ throughout GI normal to inspection, nondistended, normoactive bowel sounds, soft to palpation, non-tender, non-distended and no masses Back/Spine no CVA tenderness and no thoracic nor lumbar tenderness Extremity normal to inspection General Extremety ED: Negative for edema General Extremity: Negative for edema Neuro oriented x3, CN's II-XII intact bilaterally, no sensory deficits noted and gait normal Sensorium / Orientation: awake, alert, oriented to person, oriented to place and oriented to time Motor Exam: strength 5/5 throughout and strength abnormal Psych mental status grossly normal Skin no rashes or lesions noted and no wounds MDM MDM MDM Narrative Medical decision making narrative: Established on arrival. Patient was given a DuoNeb aerosol. Lab work-up showed a normal white count and chemistries that were unremarkable. Troponin was normal. BMP was normal. D-dimer obtained was elevated and therefore had a CT of the chest that was negative for PE or dissection. Patient did feel improved after treatment with DuoNeb aerosol. Patient was started on prednisone. At this point he is feeling well and will discharge to home. Suspect possibility of an exacerbation of COPD and also suspect possibility of some anxiety component as patient does feel like maybe that may be a contributing component. Lab Data Attestation: I reviewed the patient's lab results. Labs: Laboratory Results - last 24 hr 09/13/22 09/13/22 09/13/22 09:20 09:20 09:20 WBC 10.8 RBC 3.81 L Hgb 11.7 L Hct 35.9 L MCV 94.2 H MCH 30.7 MCHC 32.6 RDW Std Deviation 47.3 H RDW Coeff of Jonna 13.7 Plt Count 547 H MPV 9.0 Immature Gran % (Auto) 0.800 Neut % (Auto) 81.6 H Lymph % (Auto) 9.1 L Monona % (Auto) 7.3 Eos % (Auto) 0.6 Baso % (Auto) 0.6 Absolute Neuts (auto) 8.8 H Absolute Lymphs (auto) 0.98 Nucleated RBC % 0 D-Dimer Quant (PE/DVT) 2.03 H* Sodium 132 L Potassium 3.6 Chloride 95 L Carbon Dioxide 28.0 Anion Gap 9 BUN 10 Creatinine 0.62 L Estim Creat Clear Calc 62.91 Est GFR (MDRD) Af Amer 165 Est GFR (MDRD) Non-Af 137 BUN/Creatinine Ratio 16.2 Glucose 145 H Calcium 9.5 Troponin I High Sens 7 B-Natriuretic Peptide 09/13/22 09:20 WBC RBC Hgb Hct MCV MCH MCHC RDW Std Deviation RDW Coeff of Jonna Plt Count MPV Immature Gran % (Auto) Neut % (Auto) Lymph % (Auto) Monona % (Auto) Eos % (Auto) Baso % (Auto) Absolute Neuts (auto) Absolute Lymphs (auto) Nucleated RBC % D-Dimer Quant (PE/DVT) Sodium Potassium Chloride Carbon Dioxide Anion Gap BUN Creatinine Estim Creat Clear Calc Est GFR (MDRD) Af Amer Est GFR (MDRD) Non-Af BUN/Creatinine Ratio Glucose Calcium Troponin I High Sens B-Natriuretic Peptide 24.7 Radiography Diagnostic Testing: Clinical Impression(s) from Imaging Studies Chest CTA 09/13/22 10:46 IMPRESSION: No evidence of a pulmonary embolism. Mild emphysematous changes. Electronically Signed: Anshul Arboleda MD at 11:34 EST , EKG Initial EKG: Attestation: I personally reviewed and interpreted this EKG as follows: Comments: Sinus rhythm with a ventricular rate of 88 bpm with no acute ST segment changes Discharge Plan Triage Chief Complaint: Shortness of Breath Other Complaint: Cough ED Provider: Danita Tatum Dx/Rx/DC Orders Clinical Impression: COPD exacerbation, Acute dyspnea, Anxiety Instructions: ED Anxiety Reaction, ED COPD Flare, ED Dyspnea Prescriptions: New prednisone 20 mg tablet 20 mg PO BID Qty: 6 0RF No Action Adult Probiotic 3 billion cell capsule 3,000 mmu cells PO DAILY Rx Instructions: administer with a meal omega-3 fatty acids [Fish Oil Concentrate] 1,000 mg capsule 1,000 mg PO DAILY multivitamin Tablet 1 tab PO DAILY aspirin 81 MG tablet,chewable 81 mg PO DAILY@0800 Label Comments: heart health hydroxyurea 500 mg capsule 500 mg PO DAILY metformin 1,000 mg tablet 1,000 mg PO 1000,1500 Rx Instructions: 1,000 mg in am and 1,500 in pm levothyroxine 200 mcg tablet 225 mcg PO DAILY Rx Instructions: take with a 25 mcg tamsulosin 0.4 mg Capsule 0.8 mg PO DAILY@1730 Qty: 60 0RF gabapentin 100 mg capsule 100 - 300 mg PO DAILY Rx Instructions: 100 mg PO; one in am, one in afternoon, and three in the evening metoprolol succinate 25 mg tablet extended release 24 hr 25 mg PO QHS Qty: 90 3RF glipizide 5 mg tablet extended release 24hr 5 mg PO DAILY Qty: 90 3RF valsartan-hydrochlorothiazide 80-12.5 mg tablet 1 tab PO DAILY Qty: 90 3RF hydrocodone-acetaminophen 5-325 mg tablet 1 tab PO Q4H PRN PRN (Reason: Pain Score 4-10) 7 Days Qty: 30 0RF Primary Care Provider: Lauren Quick Referrals: Lauren Quick MD [Primary Care Provider] - Activity Restrictions/Additional Instructions: Follow-up with your regulatory affairs specialist within next 3 to 5 days if persistent dyspnea. Disposition Disposition: Home, Self Care
[2022-09-13] MEDS: Ipratropium/Albuterol Sulfate 3 ML AMPUL.NEB INHALATION (09:20)
[2022-09-13 09:27] VITALS: PULSE 106; RESP 22
[2022-09-13 09:30] LABS: Absolute Lymphocyte Count 0.98 X10^3/uL (0.83-4.51); Absolute Neutrophil Count 8.8 X10^3/uL (2.0-7.7); Basophil# 0.06 X10^3/uL; Basophil% 0.6 % (0-1); Eosinophil# 0.06 X10^3/uL; Eosinophils% 0.6 % (0-5); Hematocrit 35.9 % (40-54); Hemoglobin 11.7 g/dL (13.0-16.5); Lymphocyte # 0.98 X10^3/ul (0.83-4.51); Lymphocyte % 9.1 % (19-41); Mean Corp Hgb Conc 32.6 g/dL (32-36); Mean Corpuscular Hgb 30.7 pg (27.0-32.0); Mean Corpuscular Volume 94.2 fL (80-94); Monocyte# 0.79 X10^3/uL; Monocyte% 7.3 % (0-10); NRBC Flagged by Analyzer 0 % (0-5); Neutrophil # 8.77 X10^3/uL (2.7-7.7); Neutrophil % 81.6 % (47-70); Platelet Count 547 K/mm3 (150-450); RBC Distribution Width CV 13.7 % (11.6-14.6); RBC Distribution Width SD 47.3 fl (35.1-43.9); Red Blood Count 3.81 M/mm3 (4.6-6.2); White Blood Count 10.8 K/mm3 (4.4-11.0)
[2022-09-13 09:50] LABS: Anion Gap 9 (5-15); BUN 10 mg/dL (7-18); BUN/Creat Ratio 16.2 RATIO (10-20); Calcium,Total 9.5 mg/dL (8.5-10.1); Chloride 95 mmol/L (98-107); Creatinine, Serum 0.62 mg/dL (0.70-1.30); EST Glomerular Filtration Rate 137 mL/min (>60); Est Glom Filt Rate - Afr Amer 165 mL/min (>60); Estimated Creatinine Clearance 62.91 ml/min; Glucose 145 mg/dL (74-106); Potassium 3.6 mmol/L (3.5-5.1); Sodium Level 132 mmol/L (136-145); Troponin-I HS 7 pg/mL (3.0-78.0)
[2022-09-13 09:51] LABS: BNP,B-Type NATRIURETIC PEPTIDE 24.7 pg/mL (0-100); D-Dimer Quantitative (DVT/PE) 2.03 FEU/ug/m (0.27-0.49)
[2022-09-13 10:41] VITALS: BP 133/68; PULSE 108; RESP 20; O2SAT 98
--- NOTE | 2022-09-13 10:46 | CT_ITS ---
STUDY: CTA CHEST REASON FOR EXAM: Male, 67 years old. Dyspnea, elevated d-dimer RADIATION DOSAGE (If Supplied By Facility): CTDIvol = ( 12.66 ) mGy, DLP = ( 566.66 ) mGycm TECHNIQUE: The examination was performed with the intravenous administration of IV 75mL Isovue-370. Post-processing of the angiographic images was performed, with multiplanar reformation and 3D reconstruction. Individualized dose optimization techniques were used for this CT. COMPARISON: Comparison is made with prior study 06/21/2018. FINDINGS: Normal enhancement of the main pulmonary artery and right and left pulmonary arteries. Normal enhancement of the bilateral peripheral pulmonary arteries. There is no demonstrated pulmonary embolism. Normal thoracic aorta and visualized great vessels. There is no demonstrated aortic dissection. There are calcifications of the coronary arteries. Normal mediastinum. Normal hilar regions. Normal visualized trachea and bronchi. The lungs are well expanded. Mild degree of emphysematous changes. Normal pleura. Normal chest wall structures. There are degenerative changes of thoracic spine. Normal visualized upper abdomen. CT/CTA Chest W/WO Contrast IMPRESSION: No evidence of a pulmonary embolism. Mild emphysematous changes. Electronically Signed: Anshul Arboleda MD at 11:34 EST ,
[2022-09-13] MEDS: HYDROcodone Bitartrate/Apap 5/325 Tablet PO (10:57)
[2022-09-13] MEDS: predniSONE 20 MG Tablet 40 MG PO (11:57)
== END 2022-09-13 11:59 | disposition home or self-care (01) ==
PROVIDERS: Emergency Provider Emergency Medicine; PCP Internal Medicine; Visit Provider Emergency Medicine
DX: J44.1 Chronic obstructive pulmonary disease with (acute) exacerbation (principal); I11.0 Hypertensive heart disease with heart failure; I50.9 Heart failure, unspecified; E11.9 Type 2 diabetes mellitus without complications; F41.9 Anxiety disorder, unspecified; I25.10 Atherosclerotic heart disease of native coronary artery without angina pectoris; E78.5 Hyperlipidemia, unspecified; E03.9 Hypothyroidism, unspecified; N40.0 Benign prostatic hyperplasia without lower urinary tract symptoms; Z79.82 Long term (current) use of aspirin; Z79.84 Long term (current) use of oral hypoglycemic drugs; Z79.899 Other long term (current) 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; Z87.891 Personal history of nicotine dependence; Z86.718 Personal history of other venous thrombosis and embolism; Z86.711 Personal history of pulmonary embolism
CPT/HCPCS: 71275; 80048; 83880; 84484; 85025; 85379; 87428; 93005; 94640; 99285; Q9967; A4216

== ENCOUNTER → 2022-09-25 | Outpatient (CLI) | payer MEDICARE, BC, SELFPAY | END | disposition home or self-care (01) | LOC: BIMLAB 11:05 | PROVIDERS: PCP Internal Medicine; Referring Provider Internal Medicine; Visit Provider Internal Medicine | DX: R07.81 Pleurodynia (principal) | CPT/HCPCS: 36415; 85379 ==

== ENCOUNTER → 2022-09-27 | Outpatient (CLI) | payer MEDICARE, BC, SELFPAY ==
--- NOTE | 2022-09-27 13:45 | MRI_ITS ---
We are attempting to reach an attending provider to discuss findings. An addendum with communication details will be sent when the communication is complete. STUDY: MRI LEFT HIP REASON FOR EXAM: Male, 67 years old. LEFT hip pain TECHNIQUE: Standardized fat and water weighted pulse sequences were obtained in all 3 orthogonal planes. COMPARISON: CT pelvis August 03, 2022 FINDINGS: There is moderate articular narrowing of the hip joint, with greater than 50% loss of the hyaline cartilage. There is moderate joint effusion. There is marrow edema of the femoral head and neck and acetabulum. There is irregularity of the cortex of the lateral femoral head compatible destruction/erosion. There is edema of the iliopsoas with 3.0 and 1.5 cm fluid collections in the distal iliopsoas bursa. There is edema of the gluteus muscles with 9.0 cm lobular septated fluid collection of the gluteus medius and minimus. There is no trochanteric bursitis. Normal superior and inferior pubic rami. Normal pubic symphysis. Normal ischial tuberosity. Normal origin of the hamstring tendons. Normal visualized iliac wing, sacroiliac joint, and sacral ala. 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 Electronically Signed: Brendan Walker MD at 15:56 EST ,
== END | disposition home or self-care (01) ==
LOC: MRI 13:14
PROVIDERS: PCP Internal Medicine; Visit Provider Student in an Organized Health Care Education/Training Program
DX: M25.552 Pain in left hip (principal)
CPT/HCPCS: 73721

== ENCOUNTER 2022-10-05 21:00 | Inpatient (IN) | payer MEDICARE, BC, SELFPAY ==
[2022-10-05 21:13] VITALS: BP 123/75; PULSE 108; RESP 18; TEMP 36.7; O2SAT 99
--- NOTE | 2022-10-05 22:03 | HP.PCM_ITS ---
[facility] - General General Date of Admission: 10/05/22 Date of Service: 10/07/22 Chief Complaint: Here for rehabilitation, intravenous antibiotics. HPI Narrative DALE CAMPBELL, is a 67 Male who presents with followin08/04/2022 - 08/09/2022 [facility] MRSA bacteremia, unknown source. 09/27/2022 Admit to [facility]. 09/27/2022 Blood cultures growing MRSA. 09/28/2022 Orthopedics consulted for left hip pain. Recent MRSA bacteremia, source unknown, tagged WBC scan intolerable. Discharged from [facility] on oral Linezolid x 2 weeks. Consult Infectious Disease. 09/28/2022 ID recommended Vancomycin, stop Zosyn for MRSA bacteremia. secondary to left hip perarticular infections, osteomyelitis of femoral head acetabulum, iliopsoas abscess, gluteus muscle abscess. 09/30/2022 Orthopedics incised and drained deep left pelvic abscess, left septic hip arthrotomy and drainage, resection osteomyelitis left proximal femur. 10/02/2022 Orthopedics performed closed reduction, left hip cemented spacer prosthesis. 10/05/2022 Admit to TCU with debility, here for rehabilitation, strengthening, intravenous antibiotics, prior to discharge home with . 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 without angina pectoris Back pain Benign prostatic hypertrophy COPD (chronic obstructive pulmonary disease) DDD (degenerative disc disease), cervical Degeneration of intervertebral disc of lumbar region Degenerative disc disease, cervical Depression Diabetes CLARK (dyspnea on exertion) Essential (primary) hypertension Hearing difficulty of both ears History of renal cell cancer Hyperlipidemia Hypothyroidism Instability of medial collateral ligament of knee Kidney disease Lesion of sciatic nerve Lung disease Meniscus degeneration Nephrolithiasis Obesity Obstructive sleep apnea Osteoarthritis, knee 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 Over 63 years old Palpitations Polycythemia Precordial chest pain Pulmonary embolism (06/21/18) Restless legs syndrome Right elbow pain Right knee pain Rupture of right biceps tendon Sciatica Scoliosis of thoracic spine Secondary polycythemia Segmental and somatic dysfunction of cervical region Segmental and somatic dysfunction of cervical region Segmental and somatic dysfunction of lumbar region Segmental and somatic dysfunction of lumbar region Segmental and somatic dysfunction of pelvic region Segmental and somatic dysfunction of thoracic region Segmental and somatic dysfunction of thoracic region Shortness of breath Thyroid disease Tinnitus of both ears Trochanteric bursitis, left hip Type II diabetes mellitus Home Medications aspirin 81 mg chewable tablet 81 mg PO DAILY@0800 ANTIPLATELET 03/17/16 [History Last Taken 09/12/22] hydroxyurea 500 mg capsule 500 mg PO DAILY Ask 12/17/18 [History Last Taken 09/12/22] lactobacillus combination no.8 3 billion cell capsule (Adult Probiotic) 3,000 mmu cells PO DAILY 02/08/21 [History Last Taken 09/12/22] multivitamin 1 tab PO DAILY 02/08/21 [History Last Taken 09/12/22] omega-3 fatty acids 1,000 mg capsule (Fish Oil Concentrate) 1,000 mg PO DAILY 02/08/21 [History Last Taken 09/12/22] valsartan 80 mg-hydrochlorothiazide 12.5 mg tablet 1 tab PO DAILY #90 tabs 07/16/22 [Rx Last Taken 09/12/22] levothyroxine 200 mcg tablet 225 mcg PO DAILY thyroid 08/03/22 [History Last Taken 09/12/22] metformin 1,000 mg tablet 1,000 mg PO 0800 DIABETES 08/03/22 [History Last Taken 09/12/22] tamsulosin 0.4 mg capsule 0.8 mg PO DAILY@1730 #60 caps 08/09/22 [Rx Last Taken 09/12/22] gabapentin 100 mg capsule 100 mg PO 0600,1300 Neuropathy 09/13/22 [History Last Taken 09/12/22] prednisone 20 mg tablet 20 mg PO BID #6 tabs 09/13/22 [Rx Last Taken Unknown] hydrocodone-acetaminophen 5-325mg 5mg-325mg 1 tab PO Q4H PRN PRN Pain Score 4-10 7 days #30 tabs 09/16/22 [Rx Last Taken Unknown] celecoxib 100 mg capsule 100 mg PO BID #20 caps 09/25/22 [Rx Last Taken Unknown] daptomycin 500 mg intravenous solution 500 mg IV DAILY Antibiotic 10/05/22 [History Last Taken Unknown] gabapentin 100 mg tablet 300 mg PO QHS Neuropathy 10/05/22 [History Last Taken Unknown] glipizide 5 mg tablet, extended release 24 hr 5 mg PO DAILY DM 10/05/22 [History Last Taken Unknown] menthol 0.44 %-zinc oxide 20.6 % topical cream 1 applic topical TID Skin protection 10/05/22 [History Last Taken Unknown] metformin 1,000 mg tablet 1,500 mg PO QHS DM 10/05/22 [History Last Taken Unknown] metoprolol succinate 25 mg tablet,extended release 24 hr 25 mg PO DAILY BLOOD PRESSURE 10/05/22 [History Last Taken Unknown] Allergy/AdvReac Type Severity Reaction Status Date / Time sitagliptin [From Sep] Allergy Severe Rash Verified 08/26/22 11:37 theophylline Allergy Unknown Verified 08/26/22 11:37 chocolate flavor AdvReac Shortness Verified 10/05/22 23:01 of breath milk AdvReac Shortness Verified 10/05/22 23:01 of breath Family History Mother CAD (coronary artery disease) Breast cancer Diabetes Surgical History H/O lithotripsy History of coronary artery stent placement (05/24/11) History of left heart catheterization (06/19/18) History of partial nephrectomy History of tonsillectomy Hx of cataract surgery L eye surgery partial nephrectomy for renal cell cancer Social History household members: spouse Smoking Status: Former smoker quit date: 09/29/84 pack-years: 17 how long ago did patient quit smokin, 1.5/d second hand exposure: Yes alcohol intake: never substance use type: does not use ROS Constitutional Constitutional: Denies chills, fever(s) or weight gain ENT HEENT: Denies headache(s), nasal congestion or nasal discharge Cardiovascular Cardiovascular: Denies chest pain or palpitations Respiratory/Chest Respiratory/Chest: Denies cough, excessive phlegm production or shortness of breath with exertion Gastrointestinal Gastrointestinal: Denies abdominal pain, nausea or vomiting Genitourinary Genitourinary: Denies dysuria Musculoskeletal Musculoskeletal: Denies joint pain or joint swelling Integumentary Integumentary: Denies rash or wounds Neurologic Neurologic: Denies focal weakness, numbness or tingling Psychiatric Psychiatric: Denies anxiety, auditory hallucinations, depression, homicidal ideation or suicidal ideation Physical Exam Const alert General Appearance: cooperative HEENT normocephalic Eyes PERRL and EOMs intact bilaterally Neck supple, no JVD and no carotid bruits Resp normal respiratory effort, normal air movement and clear to auscultation bilaterally Cardio regular rate and regular rhythm GI normal to inspection, nondistended, normoactive bowel sounds, non-tender and non-distended Extremity normal capillary refill General Extremity: Negative for edema Skin no rashes or lesions noted General Skin Exam: no breakdown Psych affect normal Appearance: appropriate Results Lab / Micro Data Result Diagrams: 10/06/22 03:59 10/06/22 03:59 Assessment & Plan Assessment/Plan (1) Debility: (2) MRSA bacteremia: (3) Osteomyelitis of left hip: (4) Iliopsoas abscess: (5) Abscess, gluteal, left: (6) Polycythemia vera: (7) History of renal cell carcinoma: (8) Coronary artery disease: (9) Diabetes mellitus: (10) Hypertension: (11) Hyperlipidemia: (12) Hypothyroidism: PLAN: Plan 67 year old male with below past medical history hospitalized for MRSA sepsis secondary to osteomyelitis/abscess left hip, underwent left hip debridement/spacer implantation, admitted to TCU with debility, here for rehabilitation, strengthening, intravenous antibiotics, prior to discharge home with . * Debility - PT/OT. * Pain - Tylenol 1000mg q6h prn pain (1-3), Tramadol 50mg q6h prn pain (4-5), Oxycodone 5mg q4h prn pain (6-10). * Bowel - Miralax 17gm daily, senna/colace 2 tablets bid, Dulcolax 10mg pr x 1 prn, MOM 30ml po x 1 prn. * Adult immunization - Administer pneumonia vaccine, covid19 vaccine, flu vaccine as appropriate. * DVT prophylaxis - HAS-BLED score 2 intermediate risk of bleeding, Gillian score 7 high risk of bleed, Rx Xarelto 10mg daily x 2 weeks. * Coronary artery disease - Metoprolol succinate 25mg daily, Aspirin 81mg daily. 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 WYATT. * Neuropathic pain - Gabapentin 100mg bid, 300mg qhs. * Diabetes Mellitus II - Metformin 1000mg, 1500mg, Glipizide 5mg daily. * P. Vera - Hydroxyurea 500mg daily. * Hypothyroidism - Levothyroxine 225mcg daily. * Skin irritation - Calmoseptine topical tid.
[2022-10-05] MEDS: Acetaminophen 500 MG Tablet 1000 MG PO (22:36)
[2022-10-05] MEDS: Gabapentin 300 MG Capsule PO (22:36)
[2022-10-05] MEDS: Menthol/Lanolin/Calamine/Znox 113 GM Tube 1 APPLIC TOPICAL (22:36)
[2022-10-06 04:18] LABS: Absolute Lymphocyte Count 1.12 X10^3/uL (0.83-4.51); Absolute Neutrophil Count 9.3 X10^3/uL (2.0-7.7); Basophil# 0.05 X10^3/uL; Basophil% 0.4 % (0-1); Eosinophil# 0.13 X10^3/uL; Eosinophils% 1.1 % (0-5); Hematocrit 30.6 % (40-54); Hemoglobin 9.9 g/dL (13.0-16.5); Lymphocyte # 1.12 X10^3/ul (0.83-4.51); Lymphocyte % 9.8 % (19-41); Mean Corp Hgb Conc 32.4 g/dL (32-36); Mean Corpuscular Hgb 30.1 pg (27.0-32.0); Mean Platelet Vol. 9.5 fl (6.2-12.0); Monocyte# 0.65 X10^3/uL; Monocyte% 5.7 % (0-10); NRBC Flagged by Analyzer 0 % (0-5); Neutrophil # 9.32 X10^3/uL (2.7-7.7); Neutrophil % 81.6 % (47-70); Platelet Count 304 K/mm3 (150-450); RBC Distribution Width CV 14.5 % (11.6-14.6); RBC Distribution Width SD 48.1 fl (35.1-43.9); Red Blood Count 3.29 M/mm3 (4.6-6.2); White Blood Count 11.4 K/mm3 (4.4-11.0)
[2022-10-06 05:04] LABS: Anion Gap 6 (5-15); BUN 9 mg/dL (7-18); Calcium,Total 8.1 mg/dL (8.5-10.1); Chloride 97 mmol/L (98-107); Creatinine, Serum 0.69 mg/dL (0.70-1.30); EST Glomerular Filtration Rate 120 mL/min (>60); Est Glom Filt Rate - Afr Amer 145 mL/min (>60); Glucose 125 mg/dL (74-106); Potassium 3.4 mmol/L (3.5-5.1); Sodium Level 135 mmol/L (136-145)
[2022-10-06 05:40] VITALS: BP 154/78; PULSE 91
[2022-10-06] MEDS: Gabapentin 100 MG Capsule PO ×2 (05:41→12:18)
[2022-10-06] MEDS: Acetaminophen 500 MG Tablet 1000 MG PO ×3 (05:41→21:28)
[2022-10-06] MEDS: Polyethylene Glycol 3350 17 GM PACKET PO (05:42)
[2022-10-06] MEDS: Hydroxyurea 500 MG Capsule PO (05:42)
[2022-10-06] MEDS: Senna/Docusate Sodium 1 Tablet 2 TABLET PO (05:43)
[2022-10-06] MEDS: Levothyroxine 75 MCG Tablet 225 MCG PO (05:43)
[2022-10-06 05:44] VITALS: PULSE 91
[2022-10-06] MEDS: Metoprolol(XL)Succ 25 MG Tablet PO (05:44)
[2022-10-06] MEDS: Menthol/Lanolin/Calamine/Znox 113 GM Tube 1 APPLIC TOPICAL ×3 (05:44→21:29)
[2022-10-06 06:41] LABS: Bedside Glucose 127 mg/dL (74-106)
[2022-10-06] MEDS: Glucerna Shake 120 ML LIQUID PO ×2 (08:22→11:36)
[2022-10-06] MEDS: Aspirin 81 MG TAB.CHEW PO (08:23)
[2022-10-06] MEDS: glipiZIDE XL 5 MG Tablet PO (08:24)
[2022-10-06] MEDS: metFORMIN HCl 1,000 MG Tablet 1000 MG PO (08:24)
[2022-10-06] MEDS: Tuberculin,Purif.prot.deriv. 50 TU/ML Vial 0.1 ML ID (10:23)
[2022-10-06] MEDS: 0.9% Saline Lock 10 ML Syringe IV (10:23)
[2022-10-06 14:00] VITALS: BP 141/82; PULSE 92; RESP 20; TEMP 36.1; O2SAT 96
--- NOTE | 2022-10-06 15:24 | NURSING ---
AND PT REQUESTING ATIVAN PRN FOR ANXIETY/NERVES & SOMETHING FOR GAS.DR GONZALES UPDATED, NEW ORDERS RECEIVED.
[2022-10-06] MEDS: LORazepam 0.5 MG Tablet PO (16:33)
[2022-10-06] MEDS: metFORMIN HCl 500 MG Tablet 1500 MG PO (16:35)
--- NOTE | 2022-10-06 18:49 | CPS ---
pt has own cpap in room
[2022-10-06] MEDS: Gabapentin 300 MG Capsule PO (21:28)
--- NOTE | 2022-10-06 22:40 | NURSING ---
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 Has also been utilizing call light several times since the beginning of the shift. Upon entering pt's room, he is in the process of calling a staff member of the lab to unload his suitcase while also verbalizing he attempted to void while back tender pulp drier in performing care and was unable to urinate. Bladder scan reflects >[address] cath completed maintaining sterile technique for 950 ml straw-colored, clear urine. Lab personnel whom he called knocked on the door and raised his voiced communicating to that person that she did not need to come into the room. Pt tolerated procedure well. Will continue to monitor.
[2022-10-06] MEDS: oxyCODONE 5 MG Tablet PO (23:55)
[2022-10-07] MEDS: Gabapentin 100 MG Capsule PO ×2 (06:38→13:06)
[2022-10-07] MEDS: Hydroxyurea 500 MG Capsule PO (06:38)
[2022-10-07] MEDS: Polyethylene Glycol 3350 17 GM PACKET PO (06:39)
[2022-10-07 06:40] VITALS: BP 126/75; PULSE 88
[2022-10-07] MEDS: Metoprolol(XL)Succ 25 MG Tablet PO (06:40)
[2022-10-07] MEDS: Senna/Docusate Sodium 1 Tablet 2 TABLET PO (06:40)
[2022-10-07] MEDS: Levothyroxine 75 MCG Tablet 225 MCG PO (06:41)
[2022-10-07] MEDS: 0.9% Saline Lock 10 ML Syringe IV ×2 (06:45→10:19)
[2022-10-07] MEDS: Acetaminophen 500 MG Tablet 1000 MG PO ×2 (06:50→14:14)
[2022-10-07 06:51] LABS: Bedside Glucose 106 mg/dL (74-106)
[2022-10-07] MEDS: Aspirin 81 MG TAB.CHEW PO (08:28)
[2022-10-07] MEDS: metFORMIN HCl 1,000 MG Tablet 1000 MG PO (08:28)
[2022-10-07] MEDS: glipiZIDE XL 5 MG Tablet PO (08:28)
[2022-10-07] MEDS: Potassium Chloride Oral Tablet 20 MEQ PO (08:28)
[2022-10-07 09:18] VITALS: PULSE 95; RESP 18; O2SAT 98
--- NOTE | 2022-10-07 10:10 | NURSING ---
Jose Guadalupe for Dr. Cheng office requesting when karen can be removed and f/u appt.
[2022-10-07] MEDS: FLU VACC QS2022-23(6MOS UP)/PF 60 MCG/0.5 ML SYRINGE IM (10:20)
[2022-10-07] MEDS: traMADol 50 MG Tablet PO ×2 (10:25→20:30)
[2022-10-07] MEDS: Menthol/Lanolin/Calamine/Znox 113 GM Tube 1 APPLIC TOPICAL ×2 (13:06→20:31)
--- NOTE | 2022-10-07 13:41 | NURSING ---
Irrigation Pump Installer Note; Activity Asset: Dto Morgan is independent in his choice of daily activities. He has stated due to his health he would prefer to do independent activities in his room at this time. His family will visit, he reads the newspaper, watches tv and when feeling better will work on word puzzles.
[2022-10-07 14:00] VITALS: BP 103/65; PULSE 100; RESP 16; TEMP 36.1; O2SAT 99
--- NOTE | 2022-10-07 14:31 | NURSING ---
Notified pt of staff member testing positive for covid.
--- NOTE | 2022-10-07 14:35 | WOUNDNOTE ---
wound photo: right elbow
--- NOTE | 2022-10-07 14:36 | WOUNDNOTE ---
wound photo: bilateral buttocks
--- NOTE | 2022-10-07 14:36 | WOUNDNOTE ---
wound photo: left hip
--- NOTE | 2022-10-07 14:50 | PCM.CONS.GEN ---
Assessment & Plan Assessment/Plan (1) MRSA bacteremia: PLAN: MRSA bacteremia with L hip osteo requiring I&D and spacer placement at [facility] 09/30/22. Discharged to TCU on dapto with stop date 11/11/22. Will add LFT and CK to weekly labs. Pt c/o diarrhea, recommend stopping/decreasing daily miralax and senna/docusate. Will follow, thank you (2) Osteomyelitis of left hip: HPI Consult Data Date of Consult: 10/07/22 HPI Narrative Reason for Consultation: MRSA bacteremia HPI Narrative: DALE CAMPBELL, is a 67 M transferred to TCU from [facility] with recurrent MRSA bacteremia and L hip infection. Had spacer placed 09/30/22. Discharged on 6 week course dapto, stop date 11/11/22. Feeling ok but c/o diarrhea and lower abd pain for several days. No fever. No myalgias. Full ROS performed and neg except as noted above. [facility] Medical History Anemia Asthma Atherosclerotic heart disease of koi coronary artery without angina pectoris Back pain Benign prostatic hypertrophy COPD (chronic obstructive pulmonary disease) DDD (degenerative disc disease), cervical Degeneration of intervertebral disc of lumbar region Degenerative disc disease, cervical Depression Diabetes CLARK (dyspnea on exertion) Essential (primary) hypertension Hearing difficulty of both ears History of renal cell cancer Hyperlipidemia Hypothyroidism Instability of medial collateral ligament of knee Kidney disease Lesion of sciatic nerve Lung disease Meniscus degeneration Nephrolithiasis Obesity Obstructive sleep apnea Osteoarthritis, knee Other rn long term care (current) 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 Over 63 years old Palpitations Polycythemia Precordial chest pain Pulmonary embolism (06/21/18) Restless legs syndrome Right elbow pain Right knee pain Rupture of right biceps tendon Sciatica Scoliosis of thoracic spine Secondary polycythemia Segmental and somatic dysfunction of cervical region Segmental and somatic dysfunction of cervical region Segmental and somatic dysfunction of lumbar region Segmental and somatic dysfunction of lumbar region Segmental and somatic dysfunction of pelvic region Segmental and somatic dysfunction of thoracic region Segmental and somatic dysfunction of thoracic region Shortness of breath Thyroid disease Tinnitus of both ears Trochanteric bursitis, left hip Type II diabetes mellitus Home Medications aspirin 81 mg chewable tablet 81 mg PO DAILY@0800 ANTIPLATELET 03/17/16 [History Last Taken 09/12/22] hydroxyurea 500 mg capsule 500 mg PO DAILY Ask Dr 12/17/18 [History Last Taken 09/12/22] lactobacillus combination no.8 3 billion cell capsule (Adult Probiotic) 3,000 mmu cells PO DAILY 02/08/21 [History Last Taken 09/12/22] multivitamin 1 tab PO DAILY 02/08/21 [History Last Taken 09/12/22] omega-3 fatty acids 1,000 mg capsule (Fish Oil Concentrate) 1,000 mg PO DAILY 02/08/21 [History Last Taken 09/12/22] valsartan 80 mg-hydrochlorothiazide 12.5 mg tablet 1 tab PO DAILY #90 tabs 07/16/22 [Rx Last Taken 09/12/22] levothyroxine 200 mcg tablet 225 mcg PO DAILY thyroid 08/03/22 [History Last Taken 09/12/22] metformin 1,000 mg tablet 1,000 mg PO 0800 DIABETES 08/03/22 [History Last Taken 09/12/22] tamsulosin 0.4 mg capsule 0.8 mg PO DAILY@1730 #60 caps 08/09/22 [Rx Last Taken 09/12/22] gabapentin 100 mg capsule 100 mg PO 0600,1300 Neuropathy 09/13/22 [History Last Taken 09/12/22] prednisone 20 mg tablet 20 mg PO BID #6 tabs 09/13/22 [Rx Last Taken Unknown] hydrocodone-acetaminophen 5-325mg 5mg-325mg 1 tab PO Q4H PRN PRN Pain Score 4-10 7 days #30 tabs 09/16/22 [Rx Last Taken Unknown] celecoxib 100 mg capsule 100 mg PO BID #20 caps 09/25/22 [Rx Last Taken Unknown] daptomycin 500 mg intravenous solution 500 mg IV DAILY Antibiotic 10/05/22 [History Last Taken Unknown] gabapentin 100 mg tablet 300 mg PO QHS Neuropathy 10/05/22 [History Last Taken Unknown] glipizide 5 mg tablet, extended release 24 hr 5 mg PO DAILY DM 10/05/22 [History Last Taken Unknown] menthol 0.44 %-zinc oxide 20.6 % topical cream 1 applic topical TID Skin protection 10/05/22 [History Last Taken Unknown] metformin 1,000 mg tablet 1,500 mg PO QHS DM 10/05/22 [History Last Taken Unknown] metoprolol succinate 25 mg tablet,extended release 24 hr 25 mg PO DAILY BLOOD PRESSURE 01/07/23 [History Last Taken Unknown] Allergy/AdvReac Type Severity Reaction Status Date / Time sitagliptin [From Januvia] Allergy Severe Rash Verified 08/26/22 11:37 theophylline Allergy Unknown Verified 08/26/22 11:37 chocolate flavor AdvReac Shortness Verified 10/05/22 23:01 of breath milk AdvReac Shortness Verified 10/05/22 23:01 of breath Family History Mother CAD (coronary artery disease) Breast cancer Diabetes Surgical History H/O lithotripsy History of coronary artery stent placement (05/24/11) History of left heart catheterization (06/19/18) History of partial nephrectomy History of tonsillectomy Hx of cataract surgery L eye surgery partial nephrectomy for renal cell cancer Social History household members: spouse Smoking Status: Former smoker quit date: 09/29/84 pack-years: 17 how long ago did patient quit smokin, 1.5/d second hand exposure: Yes alcohol intake: never substance use type: does not use Physical Exam Const alert, oriented x3 and no apparent distress General Appearance: cooperative HEENT normocephalic and head/scalp atraumatic Eyes PERRL and EOMs intact bilaterally Neck supple and No nodes Resp normal air movement and clear to auscultation bilaterally Cardio regular rate and regular rhythm GI soft to palpation and non-distended GI Narrative: lower abd soreness Extremity General Extremity: edema Skin Skin Narrative: reviewed photos Neuro CN's II-XII intact bilaterally Medical Records Data Medical Nutrition Assessment Dietitian: Malnutrition Criteria Met Start: 10/06/22 14:16 Freq: Status: Active Protocol: Document 10/06/22 14:16 PILAR (Rec: 10/06/22 14:17 PILAR [id number]) Nutrition Malnutrition Evidence of Malnutrition Exists Yes Malnutrition (severe): Acute Illness/Injury Evidenced By Suboptimal Energy Intake ( Severe),Weight Loss (Severe) Intake Problem Inadequate Oral Intake Etiology protein related to skin status and recent surgeries Signs/Symptoms as evidenced by PI to buttock/ surgical incision Status Active Problem Clinical Problem Acute Disease or Injury Related Malnutrition Etiology related to recent surgery and inability to consume adequate nutrition to meet est nutritional needs Signs/Symptoms as evidenced by 11.5% wt loss and consuming <75% of est nutritional needs 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 Status Active Problem Recommendation Dietitian Recommendations/Changes Continue CHO Control diet - add No Added Salt restriction Continue 120 ml glucerna shake tid w/ meals Rec Lester bid to help w/ wound healing if appropriate Rec appetite stimulant d/t c/o not hungry and sig wt loss Lab / Micro Data Attestation: I reviewed the patient's lab results. Result Diagrams: 10/06/22 03:59 10/06/22 03:59 Labs: Laboratory Results - last 24 hr 10/07/22 06:26: POC Glucose 106 Micro: Microbiology 10/07/22 13:35 Nasal Secretion SARS-CoV-2 Antigen (Rapid) - Final
--- NOTE | 2022-10-07 16:33 | NURSING ---
Patient provided education on Covid 19 vaccine booster and he does not want to receive it.
[2022-10-07] MEDS: metFORMIN HCl 500 MG Tablet 1500 MG PO (17:42)
[2022-10-07] MEDS: Gabapentin 300 MG Capsule PO (20:30)
[2022-10-07] MEDS: LORazepam 0.5 MG Tablet PO (20:30)
[2022-10-08 05:58] LABS: Anion Gap 5 (5-15); BUN 9 mg/dL (7-18); BUN/Creat Ratio 12.3 RATIO (10-20); Calcium,Total 8.3 mg/dL (8.5-10.1); Chloride 102 mmol/L (98-107); Creatinine, Serum 0.73 mg/dL (0.70-1.30); EST Glomerular Filtration Rate 113 mL/min (>60); Est Glom Filt Rate - Afr Amer 137 mL/min (>60); Estimated Creatinine Clearance 62.91 ml/min; Glucose 100 mg/dL (74-106); Potassium 3.5 mmol/L (3.5-5.1); Sodium Level 138 mmol/L (136-145)
[2022-10-08] MEDS: Menthol/Lanolin/Calamine/Znox 113 GM Tube 1 APPLIC TOPICAL ×3 (06:02→21:19)
[2022-10-08] MEDS: Gabapentin 100 MG Capsule PO ×2 (06:02→13:57)
[2022-10-08] MEDS: Levothyroxine 75 MCG Tablet 225 MCG PO (06:02)
[2022-10-08] MEDS: Hydroxyurea 500 MG Capsule PO (06:02)
[2022-10-08 06:04] VITALS: BP 139/68; PULSE 79
[2022-10-08] MEDS: Metoprolol(XL)Succ 25 MG Tablet PO (06:04)
[2022-10-08 06:51] LABS: Bedside Glucose 96 mg/dL (74-106)
[2022-10-08] MEDS: Aspirin 81 MG TAB.CHEW PO (08:20)
[2022-10-08] MEDS: glipiZIDE XL 5 MG Tablet PO (08:20)
[2022-10-08] MEDS: Potassium Chloride Oral Tablet 20 MEQ PO (08:20)
[2022-10-08] MEDS: metFORMIN HCl 1,000 MG Tablet 1000 MG PO (08:21)
[2022-10-08] MEDS: traMADol 50 MG Tablet PO ×2 (10:41→22:34)
[2022-10-08] MEDS: 0.9% Saline Lock 10 ML Syringe IV ×2 (10:59→22:34)
--- NOTE | 2022-10-08 11:16 | CASEMGMT ---
Social Work Met with patient to complete initial assessment. Introduced self and role. Verified contacts. Discussed patient's code status and MOLST form. Pt confirms full code but wants to discuss wishes with . SW to revisit MOLST form. Pt agrees for to provide advanced directives. Educated to Medicare benefit. Encouraged to contact secondary insurance to ensure copay coverage. Pt's goal is to return home with and dtr at [facility]. SW to continue to follow for DC planning. NATALY RodriguezW
[2022-10-08 14:00] VITALS: BP 106/66; PULSE 90; RESP 16; TEMP 36.1; O2SAT 99
--- NOTE | 2022-10-08 15:51 | CHAPLAIN ---
Type of Pastoral Visit _x__ Initial Visit ___ Follow-up Visit ___ On-call Visit ___ General Patient Visit ___ Spiritual Assessment ___ Family Conference ___ Bereavement ___ Rapid Response ___ Code Blue ___ Other (describe below) Pastoral Care Referral From _x__ Patient ___ Family ___ Nurse ___ Physician ___ Steel Box Toe Inserter ___ Equity Holder ___ Other (describe below) Sacrament/Intervention _x__ Active listening ___ Anointing ___ Adventist ___ Bereavement ___ Communion _x__ Rula exploration ___ ___ Life review _x__ Prayer ___ Reconciliation ___ Sacrament of Sick _x__ Supportive presence ___ Wedding ___ Other (describe below) Pastoral Comments patient had a visitor and the three engaged in conversation of support and spiritual care; pt identifies as a Yarsanism and desires spiritual care support; discovered some common friends and interest which open the door for more personal service; prayer welcomed; future visits requested
[2022-10-08] MEDS: Tamsulosin HCl 0.4 MG Capsule PO (18:13)
[2022-10-08] MEDS: metFORMIN HCl 500 MG Tablet 1500 MG PO (18:13)
[2022-10-08 18:35] LABS: Bedside Glucose 125 mg/dL (74-106)
[2022-10-08] MEDS: LORazepam 0.5 MG Tablet PO (21:15)
[2022-10-08] MEDS: Gabapentin 300 MG Capsule PO (21:24)
--- NOTE | 2022-10-08 23:15 | NURSING ---
Patient requested pain med for left hip pain and effective and also requested prn ativan to help with sleep as ordered prn and effective.
[2022-10-09 06:36] LABS: Bedside Glucose 153 mg/dL (74-106)
[2022-10-09] MEDS: Gabapentin 100 MG Capsule PO ×2 (06:38→13:37)
[2022-10-09 06:39] VITALS: BP 117/68; PULSE 88
[2022-10-09] MEDS: Metoprolol(XL)Succ 25 MG Tablet PO (06:39)
[2022-10-09] MEDS: Levothyroxine 75 MCG Tablet 225 MCG PO (06:39)
[2022-10-09] MEDS: Hydroxyurea 500 MG Capsule PO (06:40)
[2022-10-09] MEDS: Menthol/Lanolin/Calamine/Znox 113 GM Tube 1 APPLIC TOPICAL ×2 (06:41→22:29)
[2022-10-09] MEDS: Aspirin 81 MG TAB.CHEW PO (08:05)
[2022-10-09] MEDS: metFORMIN HCl 1,000 MG Tablet 1000 MG PO (08:05)
[2022-10-09] MEDS: glipiZIDE XL 5 MG Tablet PO (08:05)
[2022-10-09] MEDS: Potassium Chloride Oral Tablet 20 MEQ PO (08:05)
--- NOTE | 2022-10-09 09:15 | CASEMGMT ---
Social Work IDT met with patient and for care plan meeting. Discussed patient's progress in PT/OT/SN. Educated to Medicare benefit. Encouraged to contact secondary insurance to ensure copay coverage. Pt is on IV ATB through 11/11, and has wounds. Pt's goal is to return home with at [facility]. Revisited advanced directives, code status and MOLST form. agreed to bring in copies of advanced directives. Pt confirmed full code, but did not feel comfortable answering about artificial nutrition, thus MOLST form not completed at this time. SW to continue to follow for DC planning. Yu Barrera, TECHNICIAN OBSERVER [employer]LECT[employer]PECTING
[2022-10-09] MEDS: traMADol 50 MG Tablet PO ×2 (10:47→22:32)
[2022-10-09] MEDS: 0.9% Saline Lock 10 ML Syringe IV (10:55)
--- NOTE | 2022-10-09 11:31 | PHA.CONS_ITS ---
TCU RX Drug Regimen Review Subjective: TCU Admission. 67 YOM hospitalized for MRSA sepsis secondary to osteomyelitis/abscess left hip, underwent left hip debridement/spacer implantation. Admitted to TCU with debility for strengthening, rehabilitation and IV antibiotics. Objective: Allergies sitagliptin [From Radhaverónica] Allergy (Severe, Verified 08/26/22 11:37) Rash itching theophylline Allergy (Verified 08/26/22 11:37) Unknown chocolate flavor Adverse Reaction (Verified 10/05/22 23:01) Shortness of breath milk Adverse Reaction (Verified 10/05/22 23:01) Shortness of breath Current Medications Generic Name Dose Route Start Last Admin Trade Name Freq PRN Reason Stop Dose Admin Acetaminophen 1,000 mg 10/05/22 21:54 10/07/22 14:14 Acetaminophen 500 Mg Tablet PO 1,000 mg Q6H PRN PRN Administration Pain 1-3 Aspirin 81 mg 10/06/22 08:00 10/09/22 08:05 Aspirin 81 Mg Tab.Chew PO 81 mg DAILY@0800 PEPE Administration Bisacodyl 10 mg 10/05/22 22:39 Bisacodyl 10 Mg Suppository RC X1 PRN Constipation Calamine/Phenol 1 applic 10/05/22 22:00 10/09/22 06:41 Menthol/Lanolin/Calamine/Znox 113 Gm Tube TOPICAL 1 applic TID PEPE Administration Gabapentin 300 mg 10/05/22 22:00 10/08/22 21:24 Gabapentin 300 Mg Capsule PO 300 mg QHS PEPE Administration Gabapentin 100 mg 10/06/22 06:00 10/09/22 06:38 Gabapentin 100 Mg Capsule PO 100 mg 0600,1300 PEPE Administration Glipizide 5 mg 10/06/22 08:00 10/09/22 08:05 Glipizide Xl 5 Mg Tablet PO 5 mg DAILYCM PEPE Administration Heparin Sodium (Beef Lung) 50 units 10/06/22 10:26 Heparin Pf Lock 10 Units/Ml 50 Units/5 Ml Syringe IV UD PRN PICC Line Heparin Flush Hydroxyurea 500 mg 10/06/22 06:00 10/09/22 06:40 Hydroxyurea 500 Mg Capsule PO 500 mg DAILY PEPE Administration Daptomycin 650 mg/ Sodium 63 mls @ 100 mls/hr 10/06/22 10:00 10/09/22 10:47 Chloride IV 11/11/22 11:00 100 mls/hr Q24 PEPE Administration Sodium Chloride 250 mls @ 15 mls/hr 10/06/22 10:26 10/08/22 10:59 IV 15 mls/hr .[id number] PRN Administration Saline Flush Sodium Chloride 250 mls @ 15 mls/hr 10/06/22 10:26 IV .[id number] PRN Additional IVPB Infusion Lactobacillus Acidophilus 1 tablet 10/07/22 18:00 10/09/22 06:40 Lactobacillus Acidophilus PO 1 tablet BID PEPE Administration Levothyroxine Sodium 225 mcg 10/06/22 06:00 10/09/22 06:39 Levothyroxine 75 Mcg Tablet PO 225 mcg DAILY PEPE Administration Lorazepam 0.5 mg 10/06/22 15:02 10/08/22 21:15 Lorazepam 0.5 Mg Tablet PO 0.5 mg Q6H PRN PRN Administration ANXIETY/RESTLESSNESS/SLEEP Magnesium Hydroxide 30 ml 10/05/22 22:39 Magnesium Hydroxide 30 Ml Udc PO X1 PRN Constipation Metformin HCl 1,500 mg 10/06/22 17:00 10/08/22 18:13 Metformin Hcl 500 Mg Tablet PO 1,500 mg DINNER PEPE Administration Metformin HCl 1,000 mg 10/06/22 08:00 10/09/22 08:05 Metformin Hcl 1,000 Mg Tablet PO 1,000 mg 0800 PEPE Administration Metoprolol Succinate 25 mg 10/06/22 06:00 10/09/22 06:39 Metoprolol(Xl)Succ 25 Mg Tablet PO 25 mg DAILY PEPE Administration Oxycodone HCl 5 mg 10/05/22 21:55 10/06/22 23:55 Oxycodone 5 Mg Tablet PO 5 mg Q4H PRN PRN Administration Pain Score 6-10 Polyethylene Glycol 17 gm 10/06/22 06:00 10/09/22 06:33 Polyethylene Glycol 3350 17 Gm Packet PO Not Given DAILY PEPE Potassium Chloride 20 meq 10/07/22 08:00 10/09/22 08:05 Potassium Chloride Oral Tablet 20 Meq PO 20 meq BREAKFAST PEPE Administration Senna/Docusate Sodium 2 tablet 10/06/22 06:00 10/09/22 06:33 Senna/Docusate Sodium 1 Tablet PO Not Given BID PEPE Simethicone 80 mg 10/06/22 18:45 10/09/22 08:05 Simethicone 80 Mg Tablet PO 80 mg TIDPC PEPE Administration Sodium Chloride 10 - 40 ml 10/05/22 22:04 10/09/22 10:55 0.9% Saline Lock 10 Ml Syringe IV 20 ml UD PRN Administration SALINE FLUSH Sodium Chloride 10 - 40 ml 10/06/22 10:26 0.9% Saline Lock 10 Ml Syringe IV UD PRN Open End PICC Flush Sodium Chloride 10 - 40 ml 10/06/22 10:26 0.9 % Nacl (Sterile) Posiflush 10 Ml IV UD PRN Port access or dressing change Tamsulosin HCl 0.4 mg 10/08/22 17:30 10/08/22 18:13 Tamsulosin Hcl 0.4 Mg Capsule PO 0.4 mg DAILY@1730 PEPE Administration Tramadol HCl 50 mg 10/05/22 21:55 10/09/22 10:47 Tramadol 50 Mg Tablet PO 50 mg Q6H PRN PRN Administration Pain Score 4-5 Tuberculin PPD 0.1 ml 10/13/22 10:00 Tuberculin,Purif.Prot.Deriv. 50 Tu/Ml Vial ID 10/13/22 10:01 X1 ONE Problem List (Last Reviewed 10/07/22 @ 14:[address] Florencio Morgan MD) Hypothyroidism (Acute) Hyperlipidemia (Acute) Hypertension (Chronic) Diabetes mellitus (Acute) Coronary artery disease (Acute) History of renal cell carcinoma (Acute) Polycythemia vera (Acute) Abscess, gluteal, left (Acute) Iliopsoas abscess (Acute) Osteomyelitis of left hip (Acute) Debility (Acute) MRSA bacteremia (Acute) Vital Signs Temp Pulse Resp BP Pulse Ox O2 Del Method 96.9 F L 88 16 117/68 99 Room Air 10/08/22 14:00 10/09/22 06:39 10/08/22 14:00 10/09/22 06:39 10/08/22 14:00 10/08/22 14:00 Oxygen Delivery Method Room Air Weight: 105.772 kg Sodium 138 mmol/L (136-145) 10/08/22 05:30 Potassium 3.5 mmol/L (3.5-5.1) 10/08/22 05:30 Chloride 102 mmol/L (98-107) 10/08/22 05:30 Carbon Dioxide 31.0 mmol/L (21.0-32.0) 10/08/22 05:30 Anion Gap 5 (5-15) 10/08/22 05:30 BUN 9 mg/dL (7-18) 10/08/22 05:30 Creatinine 0.73 mg/dL (0.70-1.30) 10/08/22 05:30 Est GFR (MDRD) Af Amer 137 mL/min (>60) 10/08/22 05:30 Est GFR (MDRD) Non-Af 113 mL/min (>60) 10/08/22 05:30 BUN/Creatinine Ratio 12.3 RATIO (10-20) 10/08/22 05:30 Glucose 100 mg/dL (74-106) 10/08/22 05:30 Assessment/Plan: 1. Pain: acetaminophen 1000mg PO Q6H PRN pain 1-3, tramadol 50mg PO Q6H PRN pain 4-5 and oxycodone 5mg PO Q4H PRN pain 6-10. Resident has had 6 doses of acetaminophen, 5 doses of tramadol and 1 dose of oxycodone for pain from 5-7 in the back/hip/abdomen/generalized pain. Please continue to monitor for increased pain, PRN usage, constipation and respiratory depression. 2. Bowel: Miralax 17gm PO daily, senna/docusate 2T PO BID and bisacodyl 10mg RC x1 PRN constipation and MOM 30mL PO x1 PRN constipation. Resident has not had any PRN doses. Last documented bowel movement 10/06. Resident has refused 2/4 doses of Miralax and 5/7 doses of senna/docusate. Please consider changing from scheduled to PRN. Thanks. 3. MRSA osteomyelitis left hip s/p debridement, spacer implantation: daptomycin 650mg IV daily thru 11/11/22. Please continue to monitor for S/S of infection, diarrhea (pt has diarrhea per documentation on senna/docusate), renal function and muscle pain. 4. CAD: metoprolol succinate 25mg PO daily and aspirin 81mg PO daily. Please continue to monitor BP (last 117/68), HR (last 88), S/S of bleeding and hemoglobin (last 9.9g/dL). 5. Diabetes mellitus II: metformin 1000mg breakfast and 1500mg dinner and glipizide XL 5mg PO DAILYCM. Please continue to monitor for S/S of hypoglycemia, hemoglobin A1c (last 6.9% 08/26/22), glucose (last 153mg/dL), and renal function (GFR >60mL/min). 6. Hypokalemia (last 3.5mmol/L): potassium chloride 20mEq PO breakfast. Please continue to monitor potassium levels. 7. Urinary retention (per nursing note): tamsulosin 0.4mg PO daily. Please continue to monitor for urinary retention and BP. 8. P. vera: hydroxyurea 500mg PO daily. Please continue to monitor for rash and bone marrow suppression (black box warning). 9. Hypothyroidism: levothyroxine 225mcg PO daily. Please continue to monitor for S/S of hypo/hyperthyroidism and TSH (last 05/03/22). 10. Gas: simethicone 80mg PO TIDPC. Please continue to monitor for gas. 11. Overall health: lactobacillus 1T PO BID. Please continue to monitor. Assessment/Plan for indications treated with psychotropic medications: 1. Neuropathic pain: gabapentin 100mg PO BID and 300mg PO QHS. GDR not appropriate as this is being used for neuropathic pain. Please continue to monitor for confusion, renal function, falls/fractures (BEERs criteria medication). 2. Anxiety/restlessness/sleep: lorazepam 0.5mg PO Q6H PRN anxiety/sleep/restlessness. Resident has had 3 doses so far. GDR not appropriate as this medication is new. Please continue to monitor for anxiety, restlessness, sleep, PRN usage, dementia/delirium/falls/fractures (BEERs medication). Medical chart and medication regimen reviewed. The following medication irre gularities or issues were identified: *1. Miralax 17gm PO daily, senna/docusate 2T PO BID and bisacodyl 10mg RC x1 PRN constipation and MOM 30mL PO x1 PRN constipation. Resident has refused 2/4 doses of Miralax and 5/7 doses of senna/docusate. Please consider changing from scheduled to PRN. Thanks. Date of Note:: 10/09/22
[2022-10-09 14:00] VITALS: BP 131/82; PULSE 81; RESP 16; TEMP 36.1; O2SAT 95
--- NOTE | 2022-10-09 15:22 | NURSING ---
Dr. Cheng office called and Would like a A P of pelvis completed and sent to [facility] on 10/15/21. Order entered.
--- NOTE | 2022-10-09 16:49 | NURSING ---
Dressing changed to PICC MARTINA using sterile technique IV Connector changed. Picc flushed and Blood return noted.
[2022-10-09] MEDS: metFORMIN HCl 500 MG Tablet 1500 MG PO (17:57)
[2022-10-09] MEDS: Tamsulosin HCl 0.4 MG Capsule PO (17:57)
[2022-10-09] MEDS: Juven (unflavored) Packet 1 PACKET PO (17:57)
--- NOTE | 2022-10-09 18:20 | RAD_ITS ---
STUDY: X-RAY CHEST REASON FOR EXAM: Male, 67 years old. Check PICC line placement. TECHNIQUE: Single AP portable view of the chest. COMPARISON: August 04, 2022 FINDINGS: PICC on the right close to the superior vena cava. The lungs are clear and expanded. There is no demonstrated pleural abnormality. Normal size heart. Normal mediastinum and selina. Normal visualized pulmonary arteries. Normal visualized aortic arch and descending thoracic aorta. There are diffuse degenerative changes of the visualized thoracic spine. There is degenerative osteoarthritis of the bilateral shoulders. There is no demonstrated abnormality of the visualized soft tissue structures of the upper abdomen. RAD/CXR for Line Placement IMPRESSION: Degenerative changes, as described above. No demonstrated acute cardiopulmonary process. Electronically Signed: Brendan Walker MD at 23:51 EST ,
[2022-10-09] MEDS: Gabapentin 300 MG Capsule PO (22:28)
[2022-10-09] MEDS: LORazepam 0.5 MG Tablet PO (22:32)
[2022-10-10] MEDS: Gabapentin 100 MG Capsule PO ×2 (05:28→13:18)
[2022-10-10 05:30] VITALS: BP 120/75; PULSE 91
[2022-10-10] MEDS: Hydroxyurea 500 MG Capsule PO (05:30)
[2022-10-10] MEDS: Levothyroxine 75 MCG Tablet 225 MCG PO (05:30)
[2022-10-10] MEDS: Metoprolol(XL)Succ 25 MG Tablet PO (05:30)
[2022-10-10] MEDS: Menthol/Lanolin/Calamine/Znox 113 GM Tube 1 APPLIC TOPICAL ×2 (05:32→21:14)
[2022-10-10] MEDS: 0.9% Saline Lock 10 ML Syringe IV ×2 (05:33→10:46)
[2022-10-10 06:30] LABS: Bedside Glucose 109 mg/dL (74-106)
[2022-10-10] MEDS: Potassium Chloride Oral Tablet 20 MEQ PO (08:19)
[2022-10-10] MEDS: metFORMIN HCl 1,000 MG Tablet 1000 MG PO ×2 (08:19→17:04)
[2022-10-10] MEDS: glipiZIDE XL 5 MG Tablet PO (08:19)
[2022-10-10] MEDS: Aspirin 81 MG TAB.CHEW PO (08:19)
[2022-10-10] MEDS: Juven (unflavored) Packet 1 PACKET PO ×2 (08:19→17:02)
[2022-10-10] MEDS: traMADol 50 MG Tablet PO (10:05)
--- NOTE | 2022-10-10 13:09 | MDS.RN ---
Pain interview for RUKHSANA 10/12/22
[2022-10-10] MEDS: Acetaminophen 500 MG Tablet 1000 MG PO (13:18)
[2022-10-10 14:00] VITALS: BP 114/61; PULSE 103; RESP 18; TEMP 36.8; O2SAT 98
--- NOTE | 2022-10-10 16:12 | CASEMGMT ---
Social Work BIMS () and PHQ-9 (01/23) completed for MDS assessment. Yu Barrera MSW AIR SUPPORT CONTROL OFFICER
[2022-10-10] MEDS: Tamsulosin HCl 0.4 MG Capsule PO (17:02)
[2022-10-10] MEDS: metFORMIN HCl 500 MG Tablet 1500 MG PO (17:05)
[2022-10-10] MEDS: Gabapentin 300 MG Capsule PO (21:12)
[2022-10-10] MEDS: LORazepam 0.5 MG Tablet PO (21:19)
[2022-10-10 21:35] VITALS: PULSE 98; RESP 18; O2SAT 97
[2022-10-11] MEDS: traMADol 50 MG Tablet PO ×3 (02:40→22:53)
[2022-10-11 05:41] VITALS: BP 122/73; PULSE 100
[2022-10-11] MEDS: Levothyroxine 75 MCG Tablet 225 MCG PO (05:41)
[2022-10-11] MEDS: Hydroxyurea 500 MG Capsule PO (05:41)
[2022-10-11] MEDS: Gabapentin 100 MG Capsule PO ×2 (05:41→12:27)
[2022-10-11] MEDS: Metoprolol(XL)Succ 25 MG Tablet PO (05:41)
[2022-10-11 06:35] LABS: Bedside Glucose 138 mg/dL (74-106)
[2022-10-11] MEDS: Juven (unflavored) Packet 1 PACKET PO ×2 (09:17→18:39)
[2022-10-11] MEDS: Aspirin 81 MG TAB.CHEW PO (09:19)
[2022-10-11] MEDS: glipiZIDE XL 5 MG Tablet PO (09:19)
[2022-10-11] MEDS: Potassium Chloride Oral Tablet 20 MEQ PO (09:19)
[2022-10-11 14:00] VITALS: BP 121/70; PULSE 105; RESP 16; TEMP 36.4; O2SAT 97
[2022-10-11] MEDS: Tamsulosin HCl 0.4 MG Capsule PO (18:39)
[2022-10-11] MEDS: metFORMIN HCl 500 MG Tablet 1500 MG PO (18:40)
[2022-10-11 21:00] VITALS: PULSE 106; RESP 18; O2SAT 96
[2022-10-11] MEDS: Menthol/Lanolin/Calamine/Znox 113 GM Tube 1 APPLIC TOPICAL (21:03)
[2022-10-11] MEDS: Gabapentin 300 MG Capsule PO (21:20)
[2022-10-11] MEDS: LORazepam 0.5 MG Tablet PO (23:24)
[2022-10-12] MEDS: Levothyroxine 75 MCG Tablet 225 MCG PO (06:05)
[2022-10-12] MEDS: Gabapentin 100 MG Capsule PO ×2 (06:05→13:55)
[2022-10-12 06:06] VITALS: BP 111/64; PULSE 100
[2022-10-12] MEDS: Metoprolol(XL)Succ 25 MG Tablet PO (06:06)
[2022-10-12] MEDS: Hydroxyurea 500 MG Capsule PO (06:07)
[2022-10-12 06:45] LABS: Bedside Glucose 128 mg/dL (74-106)
[2022-10-12] MEDS: metFORMIN HCl 1,000 MG Tablet 1000 MG PO (08:17)
[2022-10-12] MEDS: Potassium Chloride Oral Tablet 20 MEQ PO (08:17)
[2022-10-12] MEDS: glipiZIDE XL 5 MG Tablet PO (08:17)
[2022-10-12] MEDS: Aspirin 81 MG TAB.CHEW PO (08:17)
[2022-10-12] MEDS: Juven (unflavored) Packet 1 PACKET PO ×2 (08:18→18:12)
[2022-10-12] MEDS: 0.9% Saline Lock 10 ML Syringe IV ×2 (11:00→22:10)
[2022-10-12] MEDS: traMADol 50 MG Tablet PO (13:55)
[2022-10-12 14:00] VITALS: BP 113/67; PULSE 104; RESP 16; TEMP 36.7; O2SAT 97
--- NOTE | 2022-10-12 16:40 | NURSING ---
Rangel Cath removed per order. Pt tolerated well 10cc of Normal saline removed and tip of cath intact.
[2022-10-12] MEDS: Tamsulosin HCl 0.4 MG Capsule PO (18:12)
[2022-10-12] MEDS: metFORMIN HCl 500 MG Tablet 1500 MG PO (18:12)
[2022-10-12] MEDS: Acetaminophen 500 MG Tablet 1000 MG PO (21:58)
[2022-10-12] MEDS: LORazepam 0.5 MG Tablet PO (22:01)
[2022-10-12] MEDS: Gabapentin 300 MG Capsule PO (22:01)
[2022-10-13 05:58] VITALS: BP 144/77; PULSE 99
[2022-10-13] MEDS: Gabapentin 100 MG Capsule PO ×2 (05:58→13:41)
[2022-10-13] MEDS: Metoprolol(XL)Succ 25 MG Tablet PO (05:58)
[2022-10-13] MEDS: Acetaminophen 500 MG Tablet 1000 MG PO (05:59)
[2022-10-13] MEDS: Hydroxyurea 500 MG Capsule PO (06:00)
[2022-10-13] MEDS: Menthol/Lanolin/Calamine/Znox 113 GM Tube 1 APPLIC TOPICAL ×2 (06:00→22:13)
[2022-10-13] MEDS: Levothyroxine 75 MCG Tablet 225 MCG PO (06:02)
[2022-10-13 06:50] LABS: Bedside Glucose 113 mg/dL (74-106)
[2022-10-13 08:09] LABS: Absolute Lymphocyte Count 1.24 X10^3/uL (0.83-4.51); Absolute Neutrophil Count 5.5 X10^3/uL (2.0-7.7); Basophil# 0.06 X10^3/uL; Basophil% 0.8 % (0-1); Eosinophils% 2.6 % (0-5); Hematocrit 30.1 % (40-54); Hemoglobin 9.6 g/dL (13.0-16.5); Lymphocyte # 1.24 X10^3/ul (0.83-4.51); Lymphocyte % 16.2 % (19-41); Mean Corp Hgb Conc 31.9 g/dL (32-36); Mean Corpuscular Hgb 29.9 pg (27.0-32.0); Mean Corpuscular Volume 93.8 fL (80-94); Mean Platelet Vol. 9.6 fl (6.2-12.0); Monocyte# 0.58 X10^3/uL; Monocyte% 7.6 % (0-10); NRBC Flagged by Analyzer 0 % (0-5); Neutrophil # 5.53 X10^3/uL (2.7-7.7); Platelet Count 324 K/mm3 (150-450); RBC Distribution Width CV 15.4 % (11.6-14.6); RBC Distribution Width SD 52.4 fl (35.1-43.9); Red Blood Count 3.21 M/mm3 (4.6-6.2); White Blood Count 7.7 K/mm3 (4.4-11.0)
[2022-10-13] MEDS: Juven (unflavored) Packet 1 PACKET PO ×2 (08:29→16:56)
[2022-10-13] MEDS: metFORMIN HCl 1,000 MG Tablet 1000 MG PO (08:29)
[2022-10-13] MEDS: Aspirin 81 MG TAB.CHEW PO (08:29)
[2022-10-13] MEDS: Potassium Chloride Oral Tablet 20 MEQ PO (08:29)
[2022-10-13] MEDS: glipiZIDE XL 5 MG Tablet PO (08:29)
[2022-10-13] MEDS: Polyethylene Glycol 3350 17 GM PACKET PO (08:33)
[2022-10-13 08:48] LABS: AST(SGOT) 30 U/L (15-37); Alanine Aminotransfer ALT/SGPT 33 U/L (16-61); Albumin, Serum 1.9 g/dL (3.2-5.0); Alkaline Phosphatase 94 U/L (45-117); Anion Gap 7 (5-15); BUN 20 mg/dL (7-18); BUN/Creat Ratio 26.7 RATIO (10-20); Bilirubin, Direct 0.17 mg/dL (0.00-0.30); Calcium,Total 8.7 mg/dL (8.5-10.1); Chloride 101 mmol/L (98-107); Creatinine, Serum 0.75 mg/dL (0.70-1.30); EST Glomerular Filtration Rate 110 mL/min (>60); Est Glom Filt Rate - Afr Amer 133 mL/min (>60); Estimated Creatinine Clearance 62.91 ml/min; Globulin 4.5 g/dL (2.2-4.2); Glucose 116 mg/dL (74-106); Potassium 3.8 mmol/L (3.5-5.1); Protein, Total 6.4 g/dL (6.4-8.2); Sodium Level 135 mmol/L (136-145)
[2022-10-13 08:52] LABS: CPK Total, Creatine Kinase 18 U/L (39-308)
[2022-10-13] MEDS: Tuberculin,Purif.prot.deriv. 50 TU/ML Vial 0.1 ML ID (10:37)
[2022-10-13 14:00] VITALS: BP 113/62; PULSE 110; RESP 16; TEMP 36.8; O2SAT 98
[2022-10-13] MEDS: traMADol 50 MG Tablet PO (16:55)
[2022-10-13] MEDS: Senna/Docusate Sodium 1 Tablet 2 TABLET PO (16:55)
[2022-10-13] MEDS: Tamsulosin HCl 0.4 MG Capsule PO (16:56)
[2022-10-13] MEDS: metFORMIN HCl 500 MG Tablet 1500 MG PO (18:07)
--- NOTE | 2022-10-13 20:15 | NURSING ---
Transferred pt back to bed from [facility] x1 assist using FWW. Readjusted mepilex to coccyx. Positioned in bed for comfort. Bladder scan completed- refer to worklist. Questioned pt about pain. He thinks pain is well controlled w/ current regimen. Current medication list reviewed- routine and PRN orders. Primary concern if anxiety at night after visitors leave. Notes Ativan has been effective. Informed pt Ativan is short-acting and is not meant for long-term use. Offered to discuss additional options w/ Work And Family Life Consultant such as Melatonin and/or a non-narcotic option for anxiety. He declines those options at this time. Will continue to monitor.
[2022-10-13] MEDS: LORazepam 0.5 MG Tablet PO (20:55)
[2022-10-13 22:00] VITALS: PULSE 109; RESP 18; O2SAT 96
[2022-10-13] MEDS: Gabapentin 300 MG Capsule PO (22:13)
[2022-10-14 04:58] VITALS: BP 114/72; PULSE 102
[2022-10-14] MEDS: Metoprolol(XL)Succ 25 MG Tablet PO (04:58)
[2022-10-14] MEDS: Gabapentin 100 MG Capsule PO ×2 (04:59→12:38)
[2022-10-14] MEDS: Levothyroxine 75 MCG Tablet 225 MCG PO (04:59)
[2022-10-14] MEDS: Hydroxyurea 500 MG Capsule PO (05:00)
[2022-10-14] MEDS: Senna/Docusate Sodium 1 Tablet 2 TABLET PO ×2 (05:00→17:18)
[2022-10-14] MEDS: Menthol/Lanolin/Calamine/Znox 113 GM Tube 1 APPLIC TOPICAL ×2 (05:01→12:39)
[2022-10-14 06:35] LABS: Bedside Glucose 123 mg/dL (74-106)
[2022-10-14] MEDS: metFORMIN HCl 1,000 MG Tablet 1000 MG PO (08:37)
[2022-10-14] MEDS: Aspirin 81 MG TAB.CHEW PO (08:37)
[2022-10-14] MEDS: glipiZIDE XL 5 MG Tablet PO (08:37)
[2022-10-14] MEDS: Potassium Chloride Oral Tablet 20 MEQ PO (08:37)
[2022-10-14] MEDS: Juven (unflavored) Packet 1 PACKET PO ×2 (08:37→17:17)
[2022-10-14 08:43] VITALS: PULSE 106; O2SAT 95
--- NOTE | 2022-10-14 08:58 | NURSING ---
Forging Engineer Note; MDS for 10/12/2022 Complete
[2022-10-14] MEDS: 0.9% Saline Lock 10 ML Syringe IV (09:54)
[2022-10-14] MEDS: oxyCODONE 5 MG Tablet PO (11:13)
[2022-10-14 14:00] VITALS: BP 123/66; PULSE 105; RESP 17; TEMP 35.9; O2SAT 97
[2022-10-14] MEDS: traMADol 50 MG Tablet PO ×2 (14:16→21:51)
--- NOTE | 2022-10-14 15:26 | WOUNDNOTE ---
wound photo: right elbow
[2022-10-14] MEDS: metFORMIN HCl 500 MG Tablet 1500 MG PO (17:17)
[2022-10-14] MEDS: Tamsulosin HCl 0.4 MG Capsule PO (17:18)
[2022-10-14] MEDS: Gabapentin 300 MG Capsule PO (19:49)
[2022-10-15 05:39] VITALS: BP 117/72; PULSE 102
[2022-10-15] MEDS: Metoprolol(XL)Succ 25 MG Tablet PO (05:39)
[2022-10-15] MEDS: Senna/Docusate Sodium 1 Tablet 2 TABLET PO ×2 (05:39→18:04)
[2022-10-15] MEDS: Levothyroxine 75 MCG Tablet 225 MCG PO (05:39)
[2022-10-15] MEDS: Polyethylene Glycol 3350 17 GM PACKET PO (05:39)
[2022-10-15] MEDS: Gabapentin 100 MG Capsule PO ×2 (05:40→13:16)
[2022-10-15] MEDS: Hydroxyurea 500 MG Capsule PO (05:40)
--- NOTE | 2022-10-15 06:00 | RAD_ITS ---
STUDY: X-RAY - PELVIS REASON FOR EXAM: Male, 67 years old. Post Op -- Please send to Dr. Cheng at [facility] TECHNIQUE: One view of the pelvis was obtained. COMPARISON: None. FINDINGS: There is a non-specific bowel gas pattern. There are multiple calcified phleboliths. There is narrowing with cortical sclerosis and osteophyte formation of the sacroiliac joint consistent with degenerative osteoarthritic changes. Normal visualized bilateral superior and inferior pubic rami. Normal pubic symphysis. Normal ischial tuberosities. Normal visualized right femoral head. There is osteoarthritic spur formation of the right acetabular rim. There is moderate articular joint space narrowing of the right hip. The patient is status post left hip replacement. Cement is seen within the joint space. RAD/Pelvis 1 or 2 Views IMPRESSION: Status post left hip replacement. Electronically Signed: Anshul Arboleda MD at 12:26 EST ,
[2022-10-15 06:40] LABS: Bedside Glucose 127 mg/dL (74-106)
[2022-10-15] MEDS: metFORMIN HCl 1,000 MG Tablet 1000 MG PO (08:45)
[2022-10-15] MEDS: glipiZIDE XL 5 MG Tablet PO (08:45)
[2022-10-15] MEDS: Aspirin 81 MG TAB.CHEW PO (08:45)
[2022-10-15] MEDS: Potassium Chloride Oral Tablet 20 MEQ PO (08:46)
[2022-10-15] MEDS: Juven (unflavored) Packet 1 PACKET PO ×2 (08:46→18:01)
[2022-10-15] MEDS: oxyCODONE 5 MG Tablet PO ×3 (09:44→22:04)
[2022-10-15] MEDS: 0.9% Saline Lock 10 ML Syringe IV ×2 (10:32→11:49)
[2022-10-15] MEDS: Acetaminophen 500 MG Tablet 1000 MG PO ×2 (11:48→21:24)
--- NOTE | 2022-10-15 12:40 | CHAPLAIN ---
Type of Pastoral Visit ___ Initial Visit _x__ Follow-up Visit ___ On-call Visit ___ General Patient Visit ___ Spiritual Assessment ___ Family Conference ___ Bereavement ___ Rapid Response ___ Code Blue ___ Other (describe below) Pastoral Care Referral From _x__ Patient ___ Family ___ Nurse ___ Physician ___ Check Viewer ___ Computer Assembler ___ Other (describe below) Sacrament/Intervention _x__ Active listening ___ Anointing ___ Pentecostalism ___ Bereavement ___ Communion _x__ Rula exploration ___ ___ Life review _x__ Prayer ___ Reconciliation ___ Sacrament of Sick _x__ Supportive presence ___ Wedding ___ Other (describe below) Pastoral Comments patient requested a meeting with this proposition player; pt had specific questions about personal needs and concerns; pt seeking additional support for anxiety; pt is expressive and open about his feelings; pt welcomes a prayer and return visits for support; otherwise pt reports good progress in his treatment and good care from the staff;
--- NOTE | 2022-10-15 13:47 | NURSING ---
radiology called and will esend dr. crook office pelvis report as instructed.
[2022-10-15 14:00] VITALS: BP 97/54; PULSE 102; RESP 16; TEMP 36.1; O2SAT 97
[2022-10-15] MEDS: Menthol/Lanolin/Calamine/Znox 113 GM Tube 1 APPLIC TOPICAL (14:17)
[2022-10-15] MEDS: Tamsulosin HCl 0.4 MG Capsule PO (18:03)
[2022-10-15] MEDS: metFORMIN HCl 500 MG Tablet 1500 MG PO (18:03)
[2022-10-15] MEDS: Gabapentin 300 MG Capsule PO (21:12)
[2022-10-15 21:15] VITALS: PULSE 102; RESP 16; O2SAT 96
[2022-10-15] MEDS: LORazepam 0.5 MG Tablet PO (21:24)
--- NOTE | 2022-10-15 22:56 | NURSING ---
Patient having some anxiety issues this evening. Ativan was administered. Up and down from w/c to bed several times. Requested warm milk. Stated he needed to call his because she didn't know where he was. Currently up in w/c. Will continue to monitor.
[2022-10-16] MEDS: Menthol/Lanolin/Calamine/Znox 113 GM Tube 1 APPLIC TOPICAL ×2 (06:41→13:02)
[2022-10-16 06:42] VITALS: BP 128/71; PULSE 101
[2022-10-16] MEDS: Levothyroxine 75 MCG Tablet 225 MCG PO (06:42)
[2022-10-16] MEDS: Polyethylene Glycol 3350 17 GM PACKET PO (06:42)
[2022-10-16] MEDS: Metoprolol(XL)Succ 25 MG Tablet PO (06:42)
[2022-10-16] MEDS: Hydroxyurea 500 MG Capsule PO (06:42)
[2022-10-16] MEDS: Senna/Docusate Sodium 1 Tablet 2 TABLET PO ×2 (06:42→17:47)
[2022-10-16] MEDS: Gabapentin 100 MG Capsule PO ×2 (06:44→13:01)
[2022-10-16 07:01] LABS: Bedside Glucose 102 mg/dL (74-106)
[2022-10-16] MEDS: Juven (unflavored) Packet 1 PACKET PO ×2 (08:18→17:48)
[2022-10-16] MEDS: Potassium Chloride Oral Tablet 20 MEQ PO (08:18)
[2022-10-16] MEDS: Aspirin 81 MG TAB.CHEW PO (08:18)
[2022-10-16] MEDS: glipiZIDE XL 5 MG Tablet PO (08:18)
[2022-10-16] MEDS: metFORMIN HCl 1,000 MG Tablet 1000 MG PO (08:18)
--- NOTE | 2022-10-16 08:40 | MDS.RN ---
Information for the mds was obtained from review of the clinical record, interview of resident, staff, and direct observation of resident's care.
[2022-10-16] MEDS: 0.9% Saline Lock 10 ML Syringe IV (10:00)
[2022-10-16] MEDS: traMADol 50 MG Tablet PO (10:00)
[2022-10-16 11:10] LABS: M R Staph aureus DNA By PCR Negative (Negative); Probe Check PASS; Specimen Processing Control PASS; Staph aureus DNA By PCR POSITIVE (Negative)
[2022-10-16 14:00] VITALS: BP 121/73; PULSE 109; RESP 16; TEMP 36.3; O2SAT 97
--- NOTE | 2022-10-16 15:58 | CHAPLAIN ---
Type of Pastoral Visit ___ Initial Visit _x__ Follow-up Visit ___ On-call Visit ___ General Patient Visit ___ Spiritual Assessment ___ Family Conference ___ Bereavement ___ Rapid Response ___ Code Blue ___ Other (describe below) Pastoral Care Referral From _x__ Patient ___ Family ___ Nurse ___ Physician ___ Seed Expert ___ Stacker Attendant ___ Other (describe below) Sacrament/Intervention _x__ Active listening ___ Anointing ___ Episcopal ___ Bereavement ___ Communion ___ Rula exploration ___ ___ Life review _x__ Prayer ___ Reconciliation ___ Sacrament of Sick _x__ Supportive presence ___ Wedding ___ Other (describe below) Pastoral Comments patient saw this velocity shooter in the hallway and asked for visit at this time; pt and spouse are in room after his therapy session; pt acknowledges that he had another difficult night with anxiety and asked for support and prayer; pt states that will be contacting counseling services for follow up; listening, affirmation, presence, and prayer given
[2022-10-16] MEDS: metFORMIN HCl 500 MG Tablet 1500 MG PO (17:48)
[2022-10-16] MEDS: Tamsulosin HCl 0.4 MG Capsule PO (17:48)
[2022-10-16] MEDS: Gabapentin 300 MG Capsule PO (22:07)
[2022-10-16] MEDS: LORazepam 0.5 MG Tablet PO (22:07)
[2022-10-16] MEDS: Acetaminophen 500 MG Tablet 1000 MG PO (22:07)
--- NOTE | 2022-10-16 22:30 | NURSING ---
PICC line drsg changed.
[2022-10-17 06:36] LABS: Bedside Glucose 99 mg/dL (74-106)
[2022-10-17] MEDS: traMADol 50 MG Tablet PO ×2 (06:52→18:19)
[2022-10-17 06:53] VITALS: BP 109/59; PULSE 99
[2022-10-17] MEDS: Hydroxyurea 500 MG Capsule PO (06:53)
[2022-10-17] MEDS: Levothyroxine 75 MCG Tablet 225 MCG PO (06:53)
[2022-10-17] MEDS: Metoprolol(XL)Succ 25 MG Tablet PO (06:53)
[2022-10-17] MEDS: Senna/Docusate Sodium 1 Tablet 2 TABLET PO ×2 (06:53→18:05)
[2022-10-17] MEDS: Gabapentin 100 MG Capsule PO ×2 (06:53→13:15)
[2022-10-17] MEDS: Polyethylene Glycol 3350 17 GM PACKET PO (06:54)
[2022-10-17] MEDS: metFORMIN HCl 1,000 MG Tablet 1000 MG PO (07:49)
[2022-10-17] MEDS: Juven (unflavored) Packet 1 PACKET PO ×2 (07:50→18:05)
[2022-10-17] MEDS: Potassium Chloride Oral Tablet 20 MEQ PO (07:50)
[2022-10-17] MEDS: Aspirin 81 MG TAB.CHEW PO (07:50)
[2022-10-17] MEDS: glipiZIDE XL 5 MG Tablet PO (07:50)
[2022-10-17] MEDS: oxyCODONE 5 MG Tablet PO (10:20)
[2022-10-17] MEDS: 0.9% Saline Lock 10 ML Syringe IV (10:20)
[2022-10-17] MEDS: Menthol/Lanolin/Calamine/Znox 113 GM Tube 1 APPLIC TOPICAL ×2 (13:17→22:16)
[2022-10-17 14:00] VITALS: BP 119/60; PULSE 108; RESP 16; TEMP 36.6; O2SAT 96
[2022-10-17] MEDS: Tamsulosin HCl 0.4 MG Capsule PO (18:05)
[2022-10-17] MEDS: metFORMIN HCl 500 MG Tablet 1500 MG PO (18:05)
[2022-10-17 21:38] VITALS: RESP 16
[2022-10-17] MEDS: Gabapentin 300 MG Capsule PO (22:10)
[2022-10-17] MEDS: Acetaminophen 500 MG Tablet 1000 MG PO (22:10)
[2022-10-17] MEDS: LORazepam 0.5 MG Tablet PO (22:10)
[2022-10-18 06:31] LABS: Bedside Glucose 91 mg/dL (74-106)
[2022-10-18 06:35] VITALS: BP 113/69; PULSE 98
[2022-10-18] MEDS: Gabapentin 100 MG Capsule PO ×2 (06:35→13:08)
[2022-10-18] MEDS: Metoprolol(XL)Succ 25 MG Tablet PO (06:35)
[2022-10-18] MEDS: Levothyroxine 75 MCG Tablet 225 MCG PO (06:35)
[2022-10-18] MEDS: Hydroxyurea 500 MG Capsule PO (06:35)
[2022-10-18] MEDS: Senna/Docusate Sodium 1 Tablet 2 TABLET PO ×2 (06:35→17:44)
[2022-10-18] MEDS: Polyethylene Glycol 3350 17 GM PACKET PO (06:35)
[2022-10-18] MEDS: metFORMIN HCl 1,000 MG Tablet 1000 MG PO (09:03)
[2022-10-18] MEDS: Potassium Chloride Oral Tablet 20 MEQ PO (09:03)
[2022-10-18] MEDS: Aspirin 81 MG TAB.CHEW PO (09:03)
[2022-10-18] MEDS: Juven (unflavored) Packet 1 PACKET PO ×2 (09:03→17:42)
[2022-10-18] MEDS: Menthol/Lanolin/Calamine/Znox 113 GM Tube 1 APPLIC TOPICAL ×3 (09:04→20:37)
[2022-10-18] MEDS: glipiZIDE XL 5 MG Tablet PO (09:04)
[2022-10-18] MEDS: 0.9% Saline Lock 10 ML Syringe IV (10:15)
[2022-10-18 10:24] VITALS: PULSE 104; RESP 18; O2SAT 97
[2022-10-18] MEDS: traMADol 50 MG Tablet PO ×2 (10:36→20:38)
[2022-10-18 11:45] LABS: Bedside Glucose 87 mg/dL (74-106)
[2022-10-18 12:15] LABS: Bedside Glucose 75 mg/dL (74-106)
--- NOTE | 2022-10-18 13:11 | PCM.PN.ID ---
Physical Exam Narrative Some R elbow soreness, improving. No issues with ROM. No fever. Const alert and no apparent distress Resp normal air movement and clear to auscultation bilaterally Cardio regular rate and regular rhythm GI soft to palpation, non-tender and non-distended Extremity General Extremity: Negative for edema Skin Skin Narrative: R elbow with redness, wound. ID ID: Route of nutrition/ use of supplements: [] Nutritional Intake: [] IV Site: [] Rangel Catheter: [] Assessment & Plan Assessment/Plan (1) MRSA bacteremia: PLAN: MRSA bacteremia with L hip osteo requiring I&D and spacer placement at [facility] 09/30/22. Discharged to TCU on dapto with stop date 11/11/22. Checking LFT and CK to weekly labs. Now with proteus R elbow infected wound - no pain with ROM. Will order 7 day course po amox. Will follow (2) Osteomyelitis of left hip:
--- NOTE | 2022-10-18 13:12 | NURSING ---
Addendum entered by Alka Gutierrez 10/18/22 13:15: NEW ORDER FOR AMOXICILLIN. Original Note: DR LEBLANC HERE AND AWARE OF RT ELBOW CULTURE RESULTS.
[2022-10-18] MEDS: oxyCODONE 5 MG Tablet PO (13:37)
[2022-10-18 14:00] VITALS: BP 132/83; PULSE 109; RESP 16; TEMP 35.9; O2SAT 97
[2022-10-18] MEDS: AMOXICILLIN 500 MG CAPSULE PO ×2 (14:04→20:38)
[2022-10-18] MEDS: Tamsulosin HCl 0.4 MG Capsule PO (17:42)
[2022-10-18] MEDS: metFORMIN HCl 500 MG Tablet PO (17:44)
[2022-10-18] MEDS: Gabapentin 300 MG Capsule PO (20:38)
[2022-10-18] MEDS: Acetaminophen 500 MG Tablet 1000 MG PO (22:22)
[2022-10-18] MEDS: LORazepam 0.5 MG Tablet PO (22:22)
[2022-10-19 04:36] VITALS: BP 119/77; PULSE 90
[2022-10-19] MEDS: Polyethylene Glycol 3350 17 GM PACKET PO (04:36)
[2022-10-19] MEDS: Levothyroxine 75 MCG Tablet 225 MCG PO (04:36)
[2022-10-19] MEDS: Menthol/Lanolin/Calamine/Znox 113 GM Tube 1 APPLIC TOPICAL ×3 (04:36→22:04)
[2022-10-19] MEDS: Metoprolol(XL)Succ 25 MG Tablet PO (04:36)
[2022-10-19] MEDS: Hydroxyurea 500 MG Capsule PO (04:36)
[2022-10-19] MEDS: AMOXICILLIN 500 MG CAPSULE PO ×3 (04:36→22:04)
[2022-10-19] MEDS: Senna/Docusate Sodium 1 Tablet 2 TABLET PO ×2 (04:36→17:11)
[2022-10-19] MEDS: Gabapentin 100 MG Capsule PO ×2 (04:38→13:13)
[2022-10-19 06:50] LABS: Bedside Glucose 112 mg/dL (74-106)
[2022-10-19] MEDS: Juven (unflavored) Packet 1 PACKET PO ×2 (08:09→17:12)
[2022-10-19] MEDS: metFORMIN HCl 500 MG Tablet PO ×2 (08:09→17:11)
[2022-10-19] MEDS: Potassium Chloride Oral Tablet 20 MEQ PO (08:09)
[2022-10-19] MEDS: Aspirin 81 MG TAB.CHEW PO (08:09)
[2022-10-19] MEDS: glipiZIDE XL 5 MG Tablet PO (08:09)
[2022-10-19] MEDS: oxyCODONE 5 MG Tablet PO (09:07)
[2022-10-19] MEDS: traMADol 50 MG Tablet PO (13:34)
[2022-10-19 13:55] VITALS: BP 121/70; PULSE 101; RESP 18; TEMP 36.2; O2SAT 95
[2022-10-19] MEDS: LORazepam 0.5 MG Tablet PO ×2 (16:06→22:06)
--- NOTE | 2022-10-19 16:08 | NURSING ---
CERAMIC CHEMIST came to this nurse stating that patient is restless and anxious. Patient requesting for frequent repositioning. Patient requesting prn ativan due to feeling anxious and uncomfortable. PRN ativan given
[2022-10-19] MEDS: Tamsulosin HCl 0.4 MG Capsule PO (17:12)
--- NOTE | 2022-10-19 21:00 | NURSING ---
Pt transferred back to bed from [facility] x 1 assist. Positioned in bed for comfort. No output noted in commode.
--- NOTE | 2022-10-19 21:50 | NURSING ---
Pt c/o shortness of breath per BRAKE ENGINEER's report. BRAKE ENGINEER obtained vitals. SpO2 98% on room air. HR regular, slightly tachycardic. Denies any chest pain. In no acute distress. Repositioned in bed. Pt acknowledges anxiety is an issue. Discussed effects and intended use of Ativan. Explained Ativan is a controlled substance and most likely will not be continued after dc from TCU due to regulations associated with controlled substances. He notes he is to have an appointment scheduled with a counselor at some point this week and is waiting to hear back. Discussed consideration of long-term pharmacologic therapy to improve anxiety. After much much thought, pt is agreeable to starting something. Will leave a note to be addressed w/ Dr. Reyes. Will continue to monitor.
[2022-10-19] MEDS: Gabapentin 300 MG Capsule PO (22:04)
[2022-10-19] MEDS: Acetaminophen 500 MG Tablet 1000 MG PO (22:07)
[2022-10-20 04:08] LABS: Absolute Neutrophil Count 6.2 X10^3/uL (2.0-7.7); Basophil# 0.05 X10^3/uL; Basophil% 0.6 % (0-1); Eosinophil# 0.39 X10^3/uL; Eosinophils% 4.6 % (0-5); Hematocrit 31.8 % (40-54); Hemoglobin 9.6 g/dL (13.0-16.5); Mean Corp Hgb Conc 30.2 g/dL (32-36); Mean Corpuscular Hgb 28.7 pg (27.0-32.0); Mean Corpuscular Volume 94.9 fL (80-94); Mean Platelet Vol. 9.6 fl (6.2-12.0); Monocyte% 8.3 % (0-10); NRBC Flagged by Analyzer 0.2 % (0-5); Neutrophil # 6.17 X10^3/uL (2.7-7.7); Neutrophil % 72.8 % (47-70); Platelet Count 281 K/mm3 (150-450); RBC Distribution Width CV 15.7 % (11.6-14.6); RBC Distribution Width SD 53.9 fl (35.1-43.9); Red Blood Count 3.35 M/mm3 (4.6-6.2); White Blood Count 8.5 K/mm3 (4.4-11.0)
[2022-10-20 04:33] LABS: AST(SGOT) 22 U/L (15-37); Alanine Aminotransfer ALT/SGPT 28 U/L (16-61); Albumin, Serum 2.2 g/dL (3.2-5.0); Alkaline Phosphatase 102 U/L (45-117); Anion Gap 7 (5-15); BUN 22 mg/dL (7-18); BUN/Creat Ratio 31.8 RATIO (10-20); Bilirubin, Direct 0.15 mg/dL (0.00-0.30); Chloride 102 mmol/L (98-107); Creatinine, Serum 0.69 mg/dL (0.70-1.30); EST Glomerular Filtration Rate 120 mL/min (>60); Est Glom Filt Rate - Afr Amer 145 mL/min (>60); Estimated Creatinine Clearance 62.91 ml/min; Globulin 4.9 g/dL (2.2-4.2); Glucose 125 mg/dL (74-106); Potassium 3.7 mmol/L (3.5-5.1); Protein, Total 7.1 g/dL (6.4-8.2); Sodium Level 135 mmol/L (136-145)
[2022-10-20 04:40] LABS: CPK Total, Creatine Kinase 23 U/L (39-308)
[2022-10-20] MEDS: Polyethylene Glycol 3350 17 GM PACKET PO (05:36)
[2022-10-20] MEDS: Gabapentin 100 MG Capsule PO ×2 (05:37→13:17)
[2022-10-20] MEDS: Acetaminophen 500 MG Tablet 1000 MG PO ×2 (05:37→22:01)
[2022-10-20] MEDS: Senna/Docusate Sodium 1 Tablet 2 TABLET PO ×2 (05:38→18:39)
[2022-10-20] MEDS: AMOXICILLIN 500 MG CAPSULE PO ×3 (05:38→21:50)
[2022-10-20] MEDS: Hydroxyurea 500 MG Capsule PO (05:38)
[2022-10-20 05:39] VITALS: BP 107/72; PULSE 104
[2022-10-20] MEDS: Levothyroxine 75 MCG Tablet 225 MCG PO (05:39)
[2022-10-20] MEDS: Metoprolol(XL)Succ 25 MG Tablet PO (05:39)
[2022-10-20] MEDS: Menthol/Lanolin/Calamine/Znox 113 GM Tube 1 APPLIC TOPICAL ×3 (05:45→21:50)
[2022-10-20 06:45] LABS: Bedside Glucose 150 mg/dL (74-106)
[2022-10-20] MEDS: Potassium Chloride Oral Tablet 20 MEQ PO (08:56)
[2022-10-20] MEDS: Aspirin 81 MG TAB.CHEW PO (08:56)
[2022-10-20] MEDS: Juven (unflavored) Packet 1 PACKET PO ×2 (08:56→16:06)
[2022-10-20] MEDS: glipiZIDE XL 5 MG Tablet PO (08:56)
[2022-10-20] MEDS: metFORMIN HCl 500 MG Tablet PO ×2 (08:57→16:06)
[2022-10-20] MEDS: 0.9% Saline Lock 10 ML Syringe IV (10:15)
[2022-10-20 10:50] VITALS: PULSE 113; RESP 18
[2022-10-20] MEDS: traMADol 50 MG Tablet PO ×2 (13:23→23:21)
[2022-10-20 14:00] VITALS: BP 131/77; PULSE 62; RESP 18; TEMP 36.3; O2SAT 96
[2022-10-20] MEDS: LORazepam 0.5 MG Tablet PO ×2 (16:04→22:02)
[2022-10-20] MEDS: Tamsulosin HCl 0.4 MG Capsule PO (18:40)
[2022-10-20] MEDS: Gabapentin 300 MG Capsule PO (22:01)
[2022-10-21] MEDS: Gabapentin 100 MG Capsule PO ×2 (06:23→13:41)
[2022-10-21] MEDS: AMOXICILLIN 500 MG CAPSULE PO ×3 (06:24→21:33)
[2022-10-21] MEDS: Menthol/Lanolin/Calamine/Znox 113 GM Tube 1 APPLIC TOPICAL ×3 (06:24→21:34)
[2022-10-21] MEDS: Hydroxyurea 500 MG Capsule PO (06:24)
[2022-10-21] MEDS: Levothyroxine 75 MCG Tablet 225 MCG PO (06:25)
[2022-10-21] MEDS: Senna/Docusate Sodium 1 Tablet 2 TABLET PO ×2 (06:25→17:56)
[2022-10-21] MEDS: Polyethylene Glycol 3350 17 GM PACKET PO (06:26)
[2022-10-21 06:29] VITALS: BP 100/64; PULSE 72
[2022-10-21 06:45] LABS: Bedside Glucose 109 mg/dL (74-106)
[2022-10-21] MEDS: metFORMIN HCl 500 MG Tablet PO ×2 (08:02→17:56)
[2022-10-21] MEDS: glipiZIDE XL 5 MG Tablet PO (08:02)
[2022-10-21] MEDS: Aspirin 81 MG TAB.CHEW PO (08:02)
[2022-10-21] MEDS: Juven (unflavored) Packet 1 PACKET PO ×2 (08:02→17:56)
[2022-10-21] MEDS: Potassium Chloride Oral Tablet 20 MEQ PO (08:03)
[2022-10-21] MEDS: traMADol 50 MG Tablet PO ×2 (08:58→15:00)
[2022-10-21] MEDS: 0.9% Saline Lock 10 ML Syringe IV ×2 (10:58→21:40)
[2022-10-21] MEDS: Acetaminophen 500 MG Tablet 1000 MG PO (13:41)
[2022-10-21 14:00] VITALS: BP 125/67; PULSE 105; RESP 16; TEMP 36.5; O2SAT 96
[2022-10-21] MEDS: Tamsulosin HCl 0.4 MG Capsule PO (17:56)
[2022-10-21] MEDS: Gabapentin 300 MG Capsule PO (21:30)
[2022-10-21] MEDS: LORazepam 0.5 MG Tablet PO (21:30)
[2022-10-21 21:41] VITALS: PULSE 120; RESP 18; O2SAT 96
[2022-10-22] MEDS: Acetaminophen 500 MG Tablet 1000 MG PO ×4 (00:16→23:27)
--- NOTE | 2022-10-22 00:51 | PCA ---
pt has been up in wheelchair and back to bed a bunch of times tonight. Not being able to sleep and then says his anxiety. Has been on the call light every 15min and when he rings expects someone to come as soon as he calls
[2022-10-22] MEDS: Levothyroxine 75 MCG Tablet 225 MCG PO (06:22)
[2022-10-22] MEDS: Gabapentin 100 MG Capsule PO ×2 (06:22→12:43)
[2022-10-22 06:24] VITALS: BP 136/68; PULSE 115
[2022-10-22] MEDS: Hydroxyurea 500 MG Capsule PO (06:24)
[2022-10-22] MEDS: Metoprolol(XL)Succ 25 MG Tablet PO (06:24)
[2022-10-22] MEDS: Senna/Docusate Sodium 1 Tablet 2 TABLET PO ×2 (06:25→17:13)
[2022-10-22] MEDS: AMOXICILLIN 500 MG CAPSULE PO ×3 (06:25→22:15)
[2022-10-22] MEDS: Menthol/Lanolin/Calamine/Znox 113 GM Tube 1 APPLIC TOPICAL ×3 (06:29→22:17)
[2022-10-22 06:40] LABS: Bedside Glucose 109 mg/dL (74-106)
[2022-10-22] MEDS: Juven (unflavored) Packet 1 PACKET PO ×2 (08:54→17:12)
[2022-10-22] MEDS: Potassium Chloride Oral Tablet 20 MEQ PO (08:54)
[2022-10-22] MEDS: glipiZIDE XL 5 MG Tablet PO (08:54)
[2022-10-22] MEDS: Aspirin 81 MG TAB.CHEW PO (08:54)
[2022-10-22] MEDS: metFORMIN HCl 500 MG Tablet PO ×2 (08:55→17:13)
[2022-10-22] MEDS: 0.9% Saline Lock 10 ML Syringe IV (09:00)
[2022-10-22 09:26] VITALS: PULSE 116; RESP 16
[2022-10-22] MEDS: LORazepam 0.5 MG Tablet PO (10:44)
--- NOTE | 2022-10-22 10:53 | NURSING ---
pt very anxious, calling staff every 10-15 minutes to use BR or to move from bed to WC and vice versa. staff assisted pt to WC and placed in lobby for distraction and working on puzzle. Then called and wanted moved from WC to another chair in lobby, then within 5 minutes pt called out wanting to move back to . Ativan given & within 15 minutes pt called out needing to use BR. [facility] pt was doing the same thing all night. message left for Dr Reyes to see if pt could be placed on Buspar, Dr eryes left a note asking to be sure pt and are willing to try it since they declined paxil. spoke with pt and he is waiting to discuss it with his .
--- NOTE | 2022-10-22 11:26 | NURSING ---
pt called out and stated he wants to try and start Buspar. will update dr rice.
[2022-10-22] MEDS: traMADol 50 MG Tablet PO (12:46)
[2022-10-22 13:57] VITALS: BP 128/82; PULSE 113; RESP 18; TEMP 36.4; O2SAT 97
--- NOTE | 2022-10-22 14:23 | CASEMGMT ---
Social Work Received update from nursing and therapy that pt is having high anxiety. SW presented to room and present. Pt agreed to speak with this worker with present. Inquired about how pt was doing and pt immediately identified having issues with his anxiety. Pt explained it relates to being away from home and not having control over the situation. Pt states at home when he has anxiety at night, he gets up and walks around, but cannot easily do that here. Inquired about coping mechanisms currently. Pt stated he has looked online at some counting and breathing techniques, but has not done much more than that. SW provided supportive listening and validated feelings. Educated to other grounding techniques such as 5 senses, counting numbers backward or the alphabet. Educated to practicing techniques when not in anxiety-state to allow more comfortability with techniques and more effectiveness during anxiety-state. Educated to anxiety also inducing the [id number] response and using positive self-talk to tell his mind he is safe, and calm-self. Explained the goal of techniques is to have one's mind focus on counting, for example, and not focus on the anxiety. Pt expressed understanding. Discussed further interventions to decrease anxiety. Pt expressed enjoying routine and expectation. SW offered for therapy to provide times and goals to complete during each session, i.e. NuStep for 5 minutes. Pt agreed that would be beneficial. SW to collaborate with therapists to create schedule. SW inquired about counseling services. Pt already sought out services and has a tele-health appt with a counselor 10/31/22 but is interested in establishing with counseling in person and in town. SW provided counseling resources and discussed about grounding techniques. Pt and appreciative. SW offered ongoing supportive visits as needed. Yu Barrera, NATALY ZAVALAW
--- NOTE | 2022-10-22 14:46 | WOUNDNOTE ---
In to reassess right elbow and buttocks. patient is currently sleeping. asking this nurse to not wake patient at this time. will continue to follow.
[2022-10-22] MEDS: Tamsulosin HCl 0.4 MG Capsule PO (17:13)
[2022-10-22] MEDS: busPIRone 5 MG Tablet 7.5 MG PO (18:30)
[2022-10-22 18:36] LABS: Bedside Glucose 177 mg/dL (74-106)
[2022-10-22] MEDS: Gabapentin 300 MG Capsule PO (22:15)
--- NOTE | 2022-10-23 00:51 | NURSING ---
Staff heard noise in patient's room, entered room to find patient standing with walker by sink, with nothing on, his attends shredded, with pieces everywhere. He stated he didn't know what happened, he thought he was having a nightmare. Patient toileted, washed, re-clothed. Requested to walk around a bit, assisted to wheelchair and pushed around unit for a bit. Snack given. Currently at nurse's station eating snack. Will continue to monitor.
--- NOTE | 2022-10-23 01:51 | NURSING ---
Patient up and down. Attempted to go back to bed, assisted with transferring to bed, setting up C-pap, head of bed raised. Left room after patient stated he was ok. Approximately 10 minutes later, patient put call light on, and staff entered the room. Patient had put head of bed all the way down and was unable to raise it back up. Wanted back up, stated he was very anxious. Up to w/c and out to common area, wheeling self around. Will continue to monitor.
[2022-10-23] MEDS: Levothyroxine 75 MCG Tablet 225 MCG PO (04:21)
[2022-10-23] MEDS: Gabapentin 100 MG Capsule PO ×2 (04:21→15:22)
[2022-10-23 04:22] VITALS: BP 117/60; PULSE 116
[2022-10-23] MEDS: Metoprolol(XL)Succ 25 MG Tablet PO (04:22)
[2022-10-23] MEDS: busPIRone 5 MG Tablet 7.5 MG PO ×2 (04:22→17:26)
[2022-10-23] MEDS: Senna/Docusate Sodium 1 Tablet 2 TABLET PO ×2 (04:22→17:27)
[2022-10-23] MEDS: Hydroxyurea 500 MG Capsule PO (04:23)
[2022-10-23] MEDS: AMOXICILLIN 500 MG CAPSULE PO ×3 (04:23→21:21)
[2022-10-23 06:37] LABS: Bedside Glucose 136 mg/dL (74-106)
[2022-10-23] MEDS: glipiZIDE XL 5 MG Tablet PO (08:15)
[2022-10-23] MEDS: metFORMIN HCl 500 MG Tablet PO ×2 (08:15→17:28)
[2022-10-23] MEDS: Potassium Chloride Oral Tablet 20 MEQ PO (08:15)
[2022-10-23] MEDS: Aspirin 81 MG TAB.CHEW PO (08:15)
[2022-10-23] MEDS: Menthol/Lanolin/Calamine/Znox 113 GM Tube 1 APPLIC TOPICAL ×3 (08:16→21:25)
[2022-10-23] MEDS: Acetaminophen 500 MG Tablet 1000 MG PO ×2 (09:45→21:36)
[2022-10-23] MEDS: LORazepam 0.5 MG Tablet PO ×2 (09:45→21:37)
--- NOTE | 2022-10-23 09:53 | NURSING ---
Patient was participating in shower and placed in bed when done, therapist told this nurse and RN that patients heart rate was 123. This nurse along with RN assessed patient. HR was 117, BP was WNL, patient states that he is feeling very anxious and was tearful while talking. HR has been running higher while here. PRN ativan and tylenol given at that time.
--- NOTE | 2022-10-23 13:47 | PN.ID_ITS ---
Physical Exam Narrative No fever, elbow improving per . Const no apparent distress Resp normal air movement and clear to auscultation bilaterally Cardio regular rate and regular rhythm GI soft to palpation, non-tender and non-distended Skin Skin Narrative: R elbow bandaged ID ID: Route of nutrition/ use of supplements: [] Nutritional Intake: [] IV Site: [] Rangel Catheter: [] Assessment & Plan Assessment/Plan (1) MRSA bacteremia: PLAN: MRSA bacteremia with L hip osteo requiring I&D and spacer placement at [facility] 09/30/22. Discharged to TCU on dapto with stop date 11/11/22. Checking LFT and CK to weekly labs. Now with proteus R elbow infected wound - no pain with ROM. Improving, on 7 day course po amox. Will follow (2) Osteomyelitis of left hip:
[2022-10-23 14:00] VITALS: BP 137/68; PULSE 100; RESP 16; TEMP 36.3; O2SAT 97
[2022-10-23] MEDS: Juven (unflavored) Packet 1 PACKET PO (17:26)
[2022-10-23] MEDS: Tamsulosin HCl 0.4 MG Capsule PO (17:28)
[2022-10-23 20:04] VITALS: PULSE 103; RESP 18; O2SAT 94
[2022-10-23] MEDS: Gabapentin 300 MG Capsule PO (21:24)
[2022-10-24] MEDS: Gabapentin 100 MG Capsule PO ×2 (05:15→12:49)
[2022-10-24] MEDS: Senna/Docusate Sodium 1 Tablet 2 TABLET PO ×2 (05:17→17:57)
[2022-10-24] MEDS: Polyethylene Glycol 3350 17 GM PACKET PO (05:17)
[2022-10-24] MEDS: Hydroxyurea 500 MG Capsule PO (05:17)
[2022-10-24] MEDS: busPIRone 5 MG Tablet 7.5 MG PO ×2 (05:17→17:56)
[2022-10-24] MEDS: AMOXICILLIN 500 MG CAPSULE PO ×3 (05:18→20:33)
[2022-10-24] MEDS: Levothyroxine 75 MCG Tablet 225 MCG PO (05:18)
[2022-10-24 05:19] VITALS: BP 133/75; PULSE 84
[2022-10-24] MEDS: Metoprolol(XL)Succ 25 MG Tablet PO (05:19)
[2022-10-24] MEDS: Menthol/Lanolin/Calamine/Znox 113 GM Tube 1 APPLIC TOPICAL ×3 (05:31→20:33)
[2022-10-24 06:51] LABS: Bedside Glucose 199 mg/dL (74-106)
[2022-10-24] MEDS: Acetaminophen 500 MG Tablet 1000 MG PO (07:02)
[2022-10-24] MEDS: metFORMIN HCl 500 MG Tablet PO ×2 (08:11→17:56)
[2022-10-24] MEDS: glipiZIDE XL 5 MG Tablet PO (08:11)
[2022-10-24] MEDS: Potassium Chloride Oral Tablet 20 MEQ PO (08:11)
[2022-10-24] MEDS: Aspirin 81 MG TAB.CHEW PO (08:12)
[2022-10-24] MEDS: Juven (unflavored) Packet 1 PACKET PO ×2 (08:12→17:57)
[2022-10-24] MEDS: 0.9% Saline Lock 10 ML Syringe IV ×2 (09:32→20:36)
[2022-10-24 14:00] VITALS: BP 128/76; PULSE 112; RESP 18; TEMP 37.1; O2SAT 93
[2022-10-24] MEDS: traMADol 50 MG Tablet PO (14:09)
--- NOTE | 2022-10-24 15:19 | WOUNDNOTE ---
Wound photo: right elbow
--- NOTE | 2022-10-24 15:20 | WOUNDNOTE ---
wound photo: buttocks
--- NOTE | 2022-10-24 15:58 | CHAPLAIN ---
Type of Pastoral Visit ___ Initial Visit _x__ Follow-up Visit ___ On-call Visit ___ General Patient Visit ___ Spiritual Assessment ___ Family Conference ___ Bereavement ___ Rapid Response ___ Code Blue ___ Other (describe below) Pastoral Care Referral From _x__ Patient _x__ Family ___ Nurse ___ Physician ___ Direct Selling Counselor ___ Gravedigger ___ Other (describe below) Sacrament/Intervention _x__ Active listening ___ Anointing ___ Samaritan ___ Bereavement ___ Communion ___ Rula exploration ___ ___ Life review ___ Prayer ___ Reconciliation ___ Sacrament of Sick _x__ Supportive presence ___ Wedding _x__ Other (describe below) Pastoral Comments patient was just completing nursing care; waited until pt is dressed to enter room and offer support; pt welcomes presence of this acid etch operator; pt states that he is still having much anxiety but that new methods are being tried to help him; pt confirms that he has a counseling appointment; after a few minutes the patient states that he needs to move into another chair, and then is called back into room to assist him; pt then wants to go out into hallway and wheels pt to hallway; pt goes to puzzle table and the three start to work on puzzle; pt only able to focus on puzzle for a couple of minutes and states I can't do this and he wants to wheel himself around the hallway; will continue to be available for support
[2022-10-24] MEDS: Tamsulosin HCl 0.4 MG Capsule PO (17:57)
[2022-10-24 19:57] VITALS: PULSE 72; RESP 18; O2SAT 93
[2022-10-24] MEDS: Gabapentin 300 MG Capsule PO (20:33)
--- NOTE | 2022-10-24 21:41 | PCA ---
pt called and asked for a pillow to be put under his right side. Interim Controller went and put pillow under his side and left the room. Pt then told the nurse that aviation metalsmith was rough when they put the pillow under him and that he didnt want that aviation metalsmith back into his room
--- NOTE | 2022-10-25 03:25 | NURSING ---
Pt noted to be self-transferring and walking by himself in rm. 1:1 education given about importance of transferring and ambulating w/ staff present for pt's own safety. Pt acknowledges education @ this time.
[2022-10-25] MEDS: Gabapentin 100 MG Capsule PO ×2 (06:21→13:30)
[2022-10-25] MEDS: Levothyroxine 75 MCG Tablet 225 MCG PO (06:22)
[2022-10-25] MEDS: Polyethylene Glycol 3350 17 GM PACKET PO (06:22)
[2022-10-25] MEDS: Hydroxyurea 500 MG Capsule PO (06:24)
[2022-10-25] MEDS: Senna/Docusate Sodium 1 Tablet 2 TABLET PO ×2 (06:24→18:16)
[2022-10-25] MEDS: AMOXICILLIN 500 MG CAPSULE PO ×2 (06:24→13:30)
[2022-10-25 06:25] VITALS: BP 106/70; PULSE 109
[2022-10-25] MEDS: Metoprolol(XL)Succ 25 MG Tablet PO (06:25)
[2022-10-25] MEDS: Menthol/Lanolin/Calamine/Znox 113 GM Tube 1 APPLIC TOPICAL ×3 (06:25→22:33)
[2022-10-25 06:31] LABS: Bedside Glucose 112 mg/dL (74-106)
--- NOTE | 2022-10-25 07:11 | NURSING ---
Pt voices that he had hallucinations when he was in and out of dreams throughout the night. He states that he believes it is d/t N.O. of Buspar. Pt refused AM dose.
[2022-10-25] MEDS: Aspirin 81 MG TAB.CHEW PO (08:50)
[2022-10-25] MEDS: Potassium Chloride Oral Tablet 20 MEQ PO (08:50)
[2022-10-25] MEDS: glipiZIDE XL 5 MG Tablet PO (08:50)
[2022-10-25] MEDS: metFORMIN HCl 500 MG Tablet PO ×2 (08:50→18:16)
[2022-10-25] MEDS: Juven (unflavored) Packet 1 PACKET PO ×2 (08:50→18:17)
[2022-10-25] MEDS: 0.9% Saline Lock 10 ML Syringe IV (09:42)
--- NOTE | 2022-10-25 12:34 | CASEMGMT ---
Social Work Pt and requested to speak with this worker. SW presented to room. and pt both visibly emotional and upset. stated she wants pt discharged. SW inquired further. Provided supportive listening and pt and both continued to explain their concerns with staff and care. Pt expressed concern with having hallucinations at night and that is was because of the Ativan and Oxy pt was receiving together. and pt requested to have discontinued. Pt wishing to continue with Hannahpar that Dr started as pt and noted to pt having a calm, good day yesterday. SW offered to follow up with nurse. SW offered to complete request to discharge, but wants to ensure it is their choosing, pt is ready, can care for pt and not because of staff/care issues. Offered to have Director speak with and pt to assist in resolution moving forward. Both appreciative. SW offered to get pricing for IVs at home, if pt still elects to DC. Pt agreeable. OLVIN updated RN and Director. Faxed referral to [facility] for IV pricing. Magalie from [facility] returned call with pricing of $362.59/wk for meds and supplies. Secondary insurance does not cover costs. SW to update pt and . Will continue to follow. Yu Barrera, NATALY CLEANING SPECIALIST
[2022-10-25 14:00] VITALS: BP 133/70; PULSE 103; RESP 19; TEMP 26.5; O2SAT 99
--- NOTE | 2022-10-25 15:41 | NURSING ---
Lianna from Dr. Cheng called regarding repeat x-rays that Dr. Cheng would like repeated in 3 weeks. Updated Lianna that pt could potentially be discharged by then and if Dr. Cheng would like us to get x-rays prior to discharging. Awating return call.
[2022-10-25] MEDS: busPIRone 5 MG Tablet 7.5 MG PO (18:16)
[2022-10-25] MEDS: Tamsulosin HCl 0.4 MG Capsule PO (18:16)
[2022-10-25] MEDS: Acetaminophen 500 MG Tablet 1000 MG PO (18:23)
[2022-10-25] MEDS: Gabapentin 300 MG Capsule PO (22:32)
[2022-10-26] MEDS: Hydroxyurea 500 MG Capsule PO (05:53)
[2022-10-26] MEDS: Levothyroxine 75 MCG Tablet 225 MCG PO (05:53)
[2022-10-26] MEDS: Senna/Docusate Sodium 1 Tablet 2 TABLET PO ×2 (05:56→17:58)
[2022-10-26] MEDS: busPIRone 5 MG Tablet 7.5 MG PO ×2 (05:56→17:59)
[2022-10-26 05:57] VITALS: BP 113/72; PULSE 91
[2022-10-26] MEDS: Gabapentin 100 MG Capsule PO ×2 (05:57→13:09)
[2022-10-26] MEDS: Metoprolol(XL)Succ 25 MG Tablet PO (05:57)
[2022-10-26] MEDS: Menthol/Lanolin/Calamine/Znox 113 GM Tube 1 APPLIC TOPICAL ×3 (05:57→21:11)
[2022-10-26] MEDS: Polyethylene Glycol 3350 17 GM PACKET PO (05:59)
[2022-10-26 06:35] LABS: Bedside Glucose 123 mg/dL (74-106)
[2022-10-26] MEDS: Potassium Chloride Oral Tablet 20 MEQ PO (07:53)
[2022-10-26] MEDS: glipiZIDE XL 5 MG Tablet PO (07:54)
[2022-10-26] MEDS: Aspirin 81 MG TAB.CHEW PO (07:54)
[2022-10-26] MEDS: metFORMIN HCl 500 MG Tablet PO ×2 (07:54→17:58)
[2022-10-26] MEDS: Juven (unflavored) Packet 1 PACKET PO ×2 (07:54→17:59)
[2022-10-26] MEDS: Acetaminophen 500 MG Tablet 1000 MG PO ×3 (07:56→23:47)
[2022-10-26] MEDS: 0.9% Saline Lock 10 ML Syringe IV (09:10)
--- NOTE | 2022-10-26 09:28 | NURSING ---
therapist working with pt and states pt rating pain 6/10 and could not remember if he had pain medicine. reminded pt that he had tylenol per his request this AM. offered ultram or oxyir and pt declined. pt resting in bed on back doing exercises in bed. 1:1 emotional support given. will continue the need for pain or anxiety meds. pt did decline ativan this AM when offered. call light in reach.
[2022-10-26 10:00] VITALS: PULSE 103; RESP 16; O2SAT 97
[2022-10-26 14:00] VITALS: BP 128/66; PULSE 100; RESP 20; TEMP 36.8; O2SAT 97
--- NOTE | 2022-10-26 15:33 | NURSING ---
overnight pulse ox & Tsh level ordered. pt c/o nasal dryness, new order for PRN nasal spray.
[2022-10-26] MEDS: Sodium Chloride 0.65% 1 SPRAY SPRAY.BTL 2 SPRAY NASAL ×2 (16:37→23:48)
[2022-10-26] MEDS: Tamsulosin HCl 0.4 MG Capsule PO (17:58)
[2022-10-26] MEDS: Gabapentin 300 MG Capsule PO (21:11)
[2022-10-26 22:15] VITALS: PULSE 102; O2SAT 98
--- NOTE | 2022-10-27 02:27 | NURSING ---
Pt restless this shift. Requesting staff for repositioning assistance Q 15/30 minutes. C/o wearing attends and gripper socks. This nurse offered pt his slippers instead, pt denies. This nurse suggested family to bring in briefs for him to wear, denies suggestion. Pt c/o not wearing a gown, but previously asked AIR BAG STRIPPER to take his gown off. This nurse reminded pt of his earlier request and AIR BAG STRIPPER offered to help him put a new gown on. Pt cont. to c/o restlessness and inability to get comfortable. Pt denies PRN Ativan. Pt cont. to change positions between bed, w/c, and recliner.
--- NOTE | 2022-10-27 02:34 | NURSING ---
Pt not fully compliant w/ cont. pulse ox monitoring. He voices that it gets in the way. Pt came out and into the lounge area and voices he left his room to get away from the pulse ox machine's beeping. This nurse educated pt on importance of the monitoring and encouraged pt to keep his pulse ox connected to machine for best results.
[2022-10-27] MEDS: Polyethylene Glycol 3350 17 GM PACKET PO (05:06)
[2022-10-27] MEDS: Levothyroxine 75 MCG Tablet 225 MCG PO (05:06)
[2022-10-27] MEDS: Gabapentin 100 MG Capsule PO ×2 (05:06→13:20)
[2022-10-27 05:07] VITALS: BP 109/74; PULSE 105
[2022-10-27] MEDS: Senna/Docusate Sodium 1 Tablet 2 TABLET PO ×2 (05:07→17:50)
[2022-10-27] MEDS: Metoprolol(XL)Succ 25 MG Tablet PO (05:07)
[2022-10-27] MEDS: Hydroxyurea 500 MG Capsule PO (05:07)
[2022-10-27] MEDS: busPIRone 5 MG Tablet 7.5 MG PO ×2 (05:07→17:50)
[2022-10-27] MEDS: Menthol/Lanolin/Calamine/Znox 113 GM Tube 1 APPLIC TOPICAL ×3 (05:14→22:18)
[2022-10-27 06:46] LABS: Bedside Glucose 122 mg/dL (74-106)
[2022-10-27 06:47] LABS: Absolute Lymphocyte Count 1.07 X10^3/uL (0.83-4.51); Absolute Neutrophil Count 7.3 X10^3/uL (2.0-7.7); Basophil# 0.06 X10^3/uL; Basophil% 0.6 % (0-1); Eosinophil# 0.91 X10^3/uL; Eosinophils% 8.8 % (0-5); Hematocrit 30.7 % (40-54); Lymphocyte # 1.07 X10^3/ul (0.83-4.51); Lymphocyte % 10.4 % (19-41); Mean Corp Hgb Conc 32.6 g/dL (32-36); Mean Corpuscular Hgb 28.7 pg (27.0-32.0); Mean Corpuscular Volume 88.2 fL (80-94); Mean Platelet Vol. 9.8 fl (6.2-12.0); Monocyte# 0.95 X10^3/uL; Monocyte% 9.2 % (0-10); NRBC Flagged by Analyzer 0 % (0-5); Neutrophil # 7.28 X10^3/uL (2.7-7.7); Neutrophil % 70.4 % (47-70); Platelet Count 409 K/mm3 (150-450); RBC Distribution Width CV 15.5 % (11.6-14.6); RBC Distribution Width SD 49.7 fl (35.1-43.9); Red Blood Count 3.48 M/mm3 (4.6-6.2); White Blood Count 10.3 K/mm3 (4.4-11.0)
[2022-10-27 07:17] LABS: AST(SGOT) 74 U/L (15-37); Alanine Aminotransfer ALT/SGPT 96 U/L (16-61); Albumin, Serum 2.3 g/dL (3.2-5.0); Alkaline Phosphatase 134 U/L (45-117); Anion Gap 8 (5-15); BUN 19 mg/dL (7-18); Bilirubin, Direct 0.16 mg/dL (0.00-0.30); Calcium,Total 9.6 mg/dL (8.5-10.1); Chloride 100 mmol/L (98-107); Creatinine, Serum 0.73 mg/dL (0.70-1.30); EST Glomerular Filtration Rate 113 mL/min (>60); Est Glom Filt Rate - Afr Amer 137 mL/min (>60); Estimated Creatinine Clearance 62.91 ml/min; Globulin 5.7 g/dL (2.2-4.2); Glucose 121 mg/dL (74-106); Potassium 3.8 mmol/L (3.5-5.1); Sodium Level 135 mmol/L (136-145)
[2022-10-27 07:20] LABS: CPK Total, Creatine Kinase 21 U/L (39-308)
--- NOTE | 2022-10-27 07:20 | NURSING ---
switched pts bed out with another one d/t bed sounding like a jackhammer when attempting to elevate HOB. per report pt up and down all night, RT here to bulk picker pulse ox machine. pt pleasant and cooperative this AM, but continues to be fidgety and indecisive. offered to put gown back on and pt stated no, I am warm assisted pt from BR to WC for brkfst and then pt stated can I have something on while I am sitting here. Gown placed on pt. call light in reach.
[2022-10-27 07:28] LABS: Thyroid Stim Hormone (TSH) 0.14 uIU/mL (0.358-3.74)
[2022-10-27] MEDS: Acetaminophen 500 MG Tablet 1000 MG PO ×2 (07:50→23:25)
[2022-10-27] MEDS: glipiZIDE XL 5 MG Tablet PO (07:51)
[2022-10-27] MEDS: Aspirin 81 MG TAB.CHEW PO (07:51)
[2022-10-27] MEDS: metFORMIN HCl 500 MG Tablet PO ×2 (07:51→17:50)
[2022-10-27] MEDS: Potassium Chloride Oral Tablet 20 MEQ PO (07:52)
[2022-10-27] MEDS: Juven (unflavored) Packet 1 PACKET PO ×2 (07:52→17:50)
--- NOTE | 2022-10-27 08:02 | NURSING ---
pt finished eating, medicated for pain with tylenol per pt request. assisted him back to bed. seems to be happy with new bed and mattress, pressure air machine in place on bed. lights turned off, hob elevated at his level of choice. cpap machine on and water level low, replaced water in machine. pt holding tubing without mask. states he lost weight and mask don't fit. explained that it won't help without mask attached. pt oblivious and still wants it on and holds in his hand while resting.
[2022-10-27] MEDS: 0.9% Saline Lock 10 ML Syringe IV ×2 (10:08→22:46)
--- NOTE | 2022-10-27 11:29 | NURSING ---
dr rice aware TSH level, new order to decrease synthroid, pt and updated.
[2022-10-27 14:00] VITALS: BP 152/81; PULSE 103; RESP 16; TEMP 36.4; O2SAT 97
[2022-10-27] MEDS: Tamsulosin HCl 0.4 MG Capsule PO (17:50)
[2022-10-27] MEDS: Gabapentin 300 MG Capsule PO (22:17)
--- NOTE | 2022-10-28 00:42 | NURSING ---
Pt calls requesting to get oob. Reports his brief is wet and is unsure of he had loss of control of his bladder or spilled his urinal. 200 ml clear, yellow urine emptied from urinal. Offered to bladder scan pt to ensure bladder is emptying as pt reports he recently voided. Declines bladder scan. This nurse has changed brief 2-3 times since the beginning if the shift. Transferred to w/c. Independent with w/c locomotion in his room. Call light in on the mattress. Verbalizes he is able to reach call light to call for staff when ready to return to bed. Will continue to monitor.
--- NOTE | 2022-10-28 01:00 | NURSING ---
Pt calls requesting to get back in bed. Informs this nurse is anxiety is not well controlled but acknowledges medication that was recently started has not taken full effect. He has an appointment w/ a counselor on 11/06. Pt is hopeful he will be able to get some rest. This nurse encouraged rest in order to fully participate in therapy tomorrow. Pt states, I look forward to therapy. TV and several bright lights are on. Call light w/ in reach. Will continue to monitor.
--- NOTE | 2022-10-28 02:21 | NURSING ---
Pt calls reporting he is having an anxiety attack. Reports he is unable to find his hearing aid. Was working on his hearing aid. In no acute distress. Respirations even and unlabored. Spouse is on speakerphone as pt ends the call informed her the nurse is in his room. After several minutes of searching, hearing aid is noted under his left hip. Pt stood up w/ assistance of this nurse and noted one battery on the bedpad. Battery and hearing aid placed on overbed table. Pt expresses relief and will text his to update. Placed in w/c per pt request. Call light is on bed and pt is able to maneuver w/c independently in room. Will continue to monitor.
--- NOTE | 2022-10-28 03:20 | NURSING ---
Pt taken to bathroom per [facility]. Per [facility], pt informed her this nurse told pt he had a full blown panic attack and could not be left alone. This nurse informed [facility] pt was not told the above noted information. Will continue to monitor.
[2022-10-28] MEDS: Gabapentin 100 MG Capsule PO ×2 (06:33→13:52)
[2022-10-28] MEDS: Senna/Docusate Sodium 1 Tablet 2 TABLET PO ×2 (06:33→17:00)
[2022-10-28] MEDS: Levothyroxine 100 MCG Tablet 200 MCG PO (06:34)
[2022-10-28 06:35] VITALS: BP 118/72; PULSE 107
[2022-10-28] MEDS: Metoprolol(XL)Succ 25 MG Tablet PO (06:35)
[2022-10-28] MEDS: busPIRone 5 MG Tablet 7.5 MG PO ×2 (06:36→17:00)
[2022-10-28] MEDS: Hydroxyurea 500 MG Capsule PO (06:36)
[2022-10-28] MEDS: Menthol/Lanolin/Calamine/Znox 113 GM Tube 1 APPLIC TOPICAL ×3 (06:42→20:55)
[2022-10-28 06:56] LABS: Bedside Glucose 114 mg/dL (74-106)
[2022-10-28] MEDS: glipiZIDE XL 5 MG Tablet PO (08:01)
[2022-10-28] MEDS: Aspirin 81 MG TAB.CHEW PO (08:01)
[2022-10-28] MEDS: Potassium Chloride Oral Tablet 20 MEQ PO (08:01)
[2022-10-28] MEDS: metFORMIN HCl 500 MG Tablet PO ×2 (08:01→16:53)
[2022-10-28] MEDS: Juven (unflavored) Packet 1 PACKET PO ×2 (08:01→16:53)
[2022-10-28] MEDS: Acetaminophen 500 MG Tablet 1000 MG PO ×2 (09:08→16:53)
[2022-10-28 14:00] VITALS: BP 115/69; PULSE 104; RESP 16; TEMP 36.3; O2SAT 98
[2022-10-28] MEDS: Tamsulosin HCl 0.4 MG Capsule PO (16:54)
--- NOTE | 2022-10-28 17:42 | PCA ---
5:15 pm pt put search engine optimization strategist light requesting to go to bed ,this tag stringer informed pt that dinner was in 15 minutes and asked if he would like to stay up for dinner and he said sure i didn't realize it was that close to dinner . then while passing trays i found pt had transferred him to the bathroom and as i was bringing in dinner she had said she had to come all the way in here to put him on the toilet and i was like oh you did i didn't know that he needed to go . call light was not on i had asked pediatric medical assistant and nursing if the light had came on when pema passed two trays and was off . but claimed i had to drive all the way in here to put him on the toilet and that she had turned his call light off . end of note
[2022-10-28] MEDS: Gabapentin 300 MG Capsule PO (21:00)
--- NOTE | 2022-10-28 21:04 | NURSING ---
Addendum entered by Nemo Mast 10/28/22 22:08: CAUSTICISER stated she had been in room around 1930 and cleaned up pt for bed. Pt denied additional needs at that time. Original Note: This nurse entered pts room to administer HS medications. Pt did not express any distress. While in the room, pts called and stated she couldn't get into the TCU because it was locked. This nurse let the in and walked with her to pts room. Pt told he has wanted out of bed for hours and was soiled. expressed frustration with the pt for not asking staff for help rather than calling her. This nurse offered to clean pt up but was dismissed by pts , as she has been doing it all day. Reminded to use calllight if assistance was needed. Pt stated understanding.
[2022-10-28 23:07] VITALS: O2SAT 95
[2022-10-29] MEDS: Gabapentin 100 MG Capsule PO ×2 (05:10→13:29)
[2022-10-29] MEDS: busPIRone 5 MG Tablet 7.5 MG PO ×2 (05:11→17:52)
[2022-10-29] MEDS: Levothyroxine 100 MCG Tablet 200 MCG PO (05:12)
[2022-10-29] MEDS: Senna/Docusate Sodium 1 Tablet 2 TABLET PO ×2 (05:12→17:53)
[2022-10-29] MEDS: Polyethylene Glycol 3350 17 GM PACKET PO (05:12)
[2022-10-29 05:13] VITALS: BP 111/75; PULSE 116
[2022-10-29] MEDS: Hydroxyurea 500 MG Capsule PO (05:13)
[2022-10-29] MEDS: Metoprolol(XL)Succ 25 MG Tablet PO (05:13)
[2022-10-29] MEDS: Menthol/Lanolin/Calamine/Znox 113 GM Tube 1 APPLIC TOPICAL ×3 (05:14→21:14)
[2022-10-29 06:46] LABS: Bedside Glucose 125 mg/dL (74-106)
[2022-10-29] MEDS: glipiZIDE XL 5 MG Tablet PO (09:32)
[2022-10-29] MEDS: Juven (unflavored) Packet 1 PACKET PO ×2 (09:32→17:48)
[2022-10-29] MEDS: metFORMIN HCl 500 MG Tablet PO ×2 (09:33→17:51)
[2022-10-29] MEDS: Aspirin 81 MG TAB.CHEW PO (09:33)
[2022-10-29] MEDS: Potassium Chloride Oral Tablet 20 MEQ PO (09:33)
[2022-10-29] MEDS: LORazepam 0.5 MG Tablet PO ×2 (09:39→22:01)
--- NOTE | 2022-10-29 13:50 | WOUNDNOTE ---
wound photo: buttocks
[2022-10-29] MEDS: traMADol 50 MG Tablet PO (13:53)
--- NOTE | 2022-10-29 15:12 | NURSING ---
uEgene Porras called and I spoke with Lianna and received order for Pelvis Xray on 11/05/22 and send results to office.
[2022-10-29 15:27] VITALS: BP 106/55; PULSE 107; RESP 16; TEMP 36.4; O2SAT 96
--- NOTE | 2022-10-29 15:39 | CHAPLAIN ---
Type of Pastoral Visit ___ Initial Visit ___ Follow-up Visit ___ On-call Visit _x__ General Patient Visit ___ Spiritual Assessment ___ Family Conference ___ Bereavement ___ Rapid Response ___ Code Blue ___ Other (describe below) Pastoral Care Referral From ___ Patient _x__ Family ___ Nurse ___ Physician ___ Field Cane Scaler ___ Firearms Specialist ___ Other (describe below) Sacrament/Intervention _x__ Active listening ___ Anointing ___ Sabianist ___ Bereavement ___ Communion ___ Rula exploration ___ ___ Life review _x__ Prayer ___ Reconciliation ___ Sacrament of Sick _x__ Supportive presence ___ Wedding ___ Other (describe below) Pastoral Comments while patient was receiving therapy his spouse was in the activity area; sat down with spouse to offer support and listening ear; spouse is tearful and admits to stress for herself as patient is always wanting her and calling her, even in the middle of the night, and patient meds are being changed and she knows that pt gets anxious in good situations when he is away from home; spouse acknowledges that this situation will come to an end but speaks of the current difficulties; pt and spouse rely on rula, support of synagogue family, and prayer; prayer offered again at this time
[2022-10-29] MEDS: Tamsulosin HCl 0.4 MG Capsule PO (17:50)
[2022-10-29] MEDS: Gabapentin 300 MG Capsule PO (21:14)
[2022-10-29 22:00] VITALS: PULSE 96; RESP 16; O2SAT 98
[2022-10-30] MEDS: Hydroxyurea 500 MG Capsule PO (05:48)
[2022-10-30] MEDS: busPIRone 5 MG Tablet 7.5 MG PO ×2 (05:48→17:43)
[2022-10-30] MEDS: Polyethylene Glycol 3350 17 GM PACKET PO (05:49)
[2022-10-30] MEDS: Menthol/Lanolin/Calamine/Znox 113 GM Tube 1 APPLIC TOPICAL ×3 (05:49→21:14)
[2022-10-30] MEDS: Senna/Docusate Sodium 1 Tablet 2 TABLET PO ×2 (05:49→17:43)
[2022-10-30 05:50] VITALS: BP 118/75; PULSE 93
[2022-10-30] MEDS: Levothyroxine 100 MCG Tablet 200 MCG PO (05:50)
[2022-10-30] MEDS: Metoprolol(XL)Succ 25 MG Tablet PO (05:50)
[2022-10-30] MEDS: Gabapentin 100 MG Capsule PO ×2 (05:58→13:57)
[2022-10-30 06:11] LABS: ALB/GLOB Ratio 0.4 RATIO (0.9-2.4); AST(SGOT) 28 U/L (15-37); Alanine Aminotransfer ALT/SGPT 49 U/L (16-61); Albumin, Serum 2.3 g/dL (3.2-5.0); Alkaline Phosphatase 104 U/L (45-117); Anion Gap 8 (5-15); BUN 19 mg/dL (7-18); Calcium,Total 9.6 mg/dL (8.5-10.1); Chloride 100 mmol/L (98-107); Creatinine, Serum 0.73 mg/dL (0.70-1.30); EST Glomerular Filtration Rate 113 mL/min (>60); Est Glom Filt Rate - Afr Amer 136 mL/min (>60); Estimated Creatinine Clearance 62.91 ml/min; Globulin 5.3 g/dL (2.2-4.2); Glucose 106 mg/dL (74-106); Protein, Total 7.6 g/dL (6.4-8.2); Sodium Level 135 mmol/L (136-145)
[2022-10-30 06:51] LABS: Bedside Glucose 113 mg/dL (74-106)
[2022-10-30 07:30] VITALS: PULSE 108; RESP 15; O2SAT 93
[2022-10-30] MEDS: glipiZIDE XL 5 MG Tablet PO (08:19)
[2022-10-30] MEDS: Aspirin 81 MG TAB.CHEW PO (08:19)
[2022-10-30] MEDS: Potassium Chloride Oral Tablet 20 MEQ PO (08:20)
[2022-10-30] MEDS: Juven (unflavored) Packet 1 PACKET PO ×2 (08:20→17:42)
[2022-10-30] MEDS: 0.9% Saline Lock 10 ML Syringe IV (10:07)
--- NOTE | 2022-10-30 12:19 | SLEEP ---
Patient expressed difficulty tolerating his home cpap. He isn't sure if it's just the mask or the pressure. He states he has had significant weight loss since Jul 2022. His current pressure is cpap 13cm and he received a new cpap device from [facility] in July 2022 and has been using compliantly. After talking with the patient, he decided he wants to try a different nasal mask tonight(N20 M provided) and we will reassess tomorrow.
[2022-10-30 16:00] VITALS: BP 99/56; PULSE 102; RESP 16; TEMP 36.2; O2SAT 97
[2022-10-30] MEDS: metFORMIN HCl 500 MG Tablet PO (17:41)
[2022-10-30] MEDS: Tamsulosin HCl 0.4 MG Capsule PO (17:42)
[2022-10-30] MEDS: Gabapentin 300 MG Capsule PO (21:13)
[2022-10-30] MEDS: LORazepam 0.5 MG Tablet PO (22:26)
[2022-10-31] MEDS: busPIRone 5 MG Tablet 7.5 MG PO ×2 (04:32→18:02)
[2022-10-31] MEDS: Levothyroxine 100 MCG Tablet 200 MCG PO (04:32)
[2022-10-31] MEDS: Polyethylene Glycol 3350 17 GM PACKET PO (04:32)
[2022-10-31 04:33] VITALS: BP 105/61; PULSE 111
[2022-10-31] MEDS: Senna/Docusate Sodium 1 Tablet 2 TABLET PO ×2 (04:33→18:02)
[2022-10-31] MEDS: Metoprolol(XL)Succ 25 MG Tablet PO (04:33)
[2022-10-31] MEDS: Hydroxyurea 500 MG Capsule PO (04:34)
[2022-10-31] MEDS: Gabapentin 100 MG Capsule PO ×2 (04:35→13:51)
[2022-10-31] MEDS: Menthol/Lanolin/Calamine/Znox 113 GM Tube 1 APPLIC TOPICAL ×3 (04:38→21:48)
[2022-10-31 06:50] LABS: Bedside Glucose 162 mg/dL (74-106)
[2022-10-31] MEDS: Aspirin 81 MG TAB.CHEW PO (08:31)
[2022-10-31] MEDS: metFORMIN HCl 500 MG Tablet PO ×2 (08:31→18:02)
[2022-10-31] MEDS: Potassium Chloride Oral Tablet 20 MEQ PO (08:31)
[2022-10-31] MEDS: glipiZIDE XL 5 MG Tablet PO (08:31)
[2022-10-31] MEDS: Juven (unflavored) Packet 1 PACKET PO ×2 (08:31→18:02)
[2022-10-31] MEDS: traMADol 50 MG Tablet PO (12:17)
--- NOTE | 2022-10-31 12:24 | SLEEP ---
Follow up with patient to assess new nasal mask with own cpap unit last night. Patient states he struggled with suffocation feeling causing anxiety throughout the night. Per data obtained from his cpap device, his leak is high throughout use, likely due to chin drop during sleep. Reviewed device data with pt and his and explained why using a full face mask for his cpap use may help. He was fit with a sleep lab mask (F20M) and placed on his cpap at 13cm. He felt the mask was ok and agreeable to use however requested decrease in pressure. Cpap set to 11cm, pt and aware. They are encouraged to contact SL or RT staff if any problems or concerns, otherwise I will reassess tomorrow. Order for decrease in pressure given by CARRIER WASHER.Pily to Sarahy Franco [facility] in sleep lab.
[2022-10-31 15:19] VITALS: BP 122/71; PULSE 103; RESP 16; TEMP 36.3; O2SAT 95
[2022-10-31] MEDS: Tamsulosin HCl 0.4 MG Capsule PO (18:02)
[2022-10-31] MEDS: Gabapentin 300 MG Capsule PO (21:48)
[2022-10-31] MEDS: LORazepam 0.5 MG Tablet PO (21:49)
[2022-10-31 22:00] VITALS: PULSE 99; RESP 16; O2SAT 98
[2022-11-01] MEDS: busPIRone 5 MG Tablet 7.5 MG PO ×2 (06:13→16:52)
[2022-11-01] MEDS: Senna/Docusate Sodium 1 Tablet 2 TABLET PO ×2 (06:13→16:52)
[2022-11-01] MEDS: Levothyroxine 100 MCG Tablet 200 MCG PO (06:13)
[2022-11-01] MEDS: Polyethylene Glycol 3350 17 GM PACKET PO (06:13)
[2022-11-01] MEDS: Hydroxyurea 500 MG Capsule PO (06:15)
[2022-11-01] MEDS: Gabapentin 100 MG Capsule PO ×2 (06:15→12:52)
[2022-11-01 06:16] VITALS: BP 124/75; PULSE 99
[2022-11-01] MEDS: Menthol/Lanolin/Calamine/Znox 113 GM Tube 1 APPLIC TOPICAL ×3 (06:16→21:21)
[2022-11-01] MEDS: Metoprolol(XL)Succ 25 MG Tablet PO (06:16)
[2022-11-01 06:55] LABS: Bedside Glucose 123 mg/dL (74-106)
[2022-11-01] MEDS: Aspirin 81 MG TAB.CHEW PO (07:35)
[2022-11-01] MEDS: glipiZIDE XL 5 MG Tablet PO (07:36)
[2022-11-01] MEDS: metFORMIN HCl 500 MG Tablet PO ×2 (07:36→16:52)
[2022-11-01] MEDS: traMADol 50 MG Tablet PO (07:36)
[2022-11-01] MEDS: Juven (unflavored) Packet 1 PACKET PO ×2 (07:36→16:52)
[2022-11-01] MEDS: Potassium Chloride Oral Tablet 20 MEQ PO (07:36)
--- NOTE | 2022-11-01 09:01 | NURSING ---
appt made with RUY d/t tachycardia. updated pt & .
[2022-11-01] MEDS: 0.9% Saline Lock 10 ML Syringe IV (09:35)
[2022-11-01 12:54] VITALS: PULSE 97; RESP 18; O2SAT 96
--- NOTE | 2022-11-01 13:31 | SLEEP ---
Patient says he felt he tolerated cpap better last night with full face mask and cpap at 11cm. Patient and agreeable to continuing this over the weekend and reassessing Friday.
[2022-11-01] MEDS: LORazepam 0.5 MG Tablet PO ×2 (13:44→21:20)
[2022-11-01 14:37] VITALS: BP 112/67; PULSE 60; RESP 18; TEMP 36.1; O2SAT 91
[2022-11-01] MEDS: Tamsulosin HCl 0.4 MG Capsule PO (16:52)
--- NOTE | 2022-11-01 18:05 | NURSING ---
Dr Sofia here to trim nails
--- NOTE | 2022-11-01 18:16 | CON.PCM_ITS ---
Assessment & Plan Assessment/Plan (1) Fissure in skin of foot: PLAN: Area debrided without incident. Monitor. Pt encouraged to wear shoes while ambulating to reduce callus build up. Also apply lotion daily. (2) Lymphedema: (3) Diabetes: PLAN: Perform regular diabetic foot checks and follow up with podiatry upon discharge. PLAN: Plan Foot examination performed, along with routine diabetic foot care. We discussed wearing shoes and monitoring feet. 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 Back pain Benign prostatic hypertrophy COPD (chronic obstructive pulmonary disease) DDD (degenerative disc disease), cervical Degeneration of intervertebral disc of lumbar region Degenerative disc disease, cervical Depression Diabetes CLARK (dyspnea on exertion) Essential (primary) hypertension Hearing difficulty of both ears History of renal cell cancer Hyperlipidemia Hypothyroidism Instability of medial collateral ligament of knee Kidney disease Lesion of sciatic nerve Lung disease Meniscus degeneration Nephrolithiasis Obesity Obstructive sleep apnea Osteoarthritis, knee Other custodial (current) 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 Over 63 years old Palpitations Polycythemia Precordial chest pain Pulmonary embolism (06/21/18) Restless legs syndrome Right elbow pain Right knee pain Rupture of right biceps tendon Sciatica Scoliosis of thoracic spine Secondary polycythemia Segmental and somatic dysfunction of cervical region Segmental and somatic dysfunction of cervical region Segmental and somatic dysfunction of lumbar region Segmental and somatic dysfunction of lumbar region Segmental and somatic dysfunction of pelvic region Segmental and somatic dysfunction of thoracic region Segmental and somatic dysfunction of thoracic region Shortness of breath Thyroid disease Tinnitus of both ears Trochanteric bursitis, left hip Type II diabetes mellitus Home Medications aspirin 81 mg chewable tablet 81 mg PO DAILY@0800 ANTIPLATELET 03/17/16 [History Last Taken 09/12/22] hydroxyurea 500 mg capsule 500 mg PO DAILY Ask 12/17/18 [History Last Taken 09/12/22] lactobacillus combination no.8 3 billion cell capsule (Adult Probiotic) 3,000 mmu cells PO DAILY 02/08/21 [History Last Taken 09/12/22] multivitamin 1 tab PO DAILY 02/08/21 [History Last Taken 09/12/22] omega-3 fatty acids 1,000 mg capsule (Fish Oil Concentrate) 1,000 mg PO DAILY 02/08/21 [History Last Taken 09/12/22] valsartan 80 mg-hydrochlorothiazide 12.5 mg tablet 1 tab PO DAILY #90 tabs 07/16/22 [Rx Last Taken 09/12/22] levothyroxine 200 mcg tablet 225 mcg PO DAILY thyroid 08/03/22 [History Last Taken 09/12/22] tamsulosin 0.4 mg capsule 0.8 mg PO DAILY@1730 #60 caps 08/09/22 [Rx Last Taken 09/12/22] gabapentin 100 mg capsule 100 mg PO 0600,1300 Neuropathy 09/13/22 [History Last Taken 09/12/22] hydrocodone-acetaminophen 5-325mg 5mg-325mg 1 tab PO Q4H PRN PRN Pain Score 4-10 7 days #30 tabs 09/16/22 [Rx Last Taken Unknown] celecoxib 100 mg capsule 100 mg PO BID #20 caps 09/25/22 [Rx Last Taken Unknown] daptomycin 500 mg intravenous solution 500 mg IV DAILY Antibiotic 10/05/22 [History Last Taken Unknown] gabapentin 100 mg tablet 300 mg PO QHS Neuropathy 10/05/22 [History Last Taken Unknown] glipizide 5 mg tablet, extended release 24 hr 5 mg PO DAILY DM 10/05/22 [History Last Taken Unknown] menthol 0.44 %-zinc oxide 20.6 % topical cream 1 applic topical TID Skin protection 10/05/22 [History Last Taken Unknown] metoprolol succinate 25 mg tablet,extended release 24 hr 25 mg PO DAILY BLOOD PRESSURE 10/05/22 [History Last Taken Unknown] buspirone 5 mg tablet 7.5 mg PO BID 10/30/22 [History Last Taken Unknown] lorazepam 0.5 mg tablet (Ativan) 0.5 mg PO .Q6 PRN 10/30/22 [History Last Taken Unknown] metformin 500 mg tablet 500 mg PO BID 10/30/22 [History Last Taken Unknown] nutritional supplements ea PO 10/30/22 [History Last Taken Unknown] oxycodone 5 mg tablet 5 mg PO Q4H PRN 10/30/22 [History Last Taken Unknown] tramadol 50 mg tablet 50 mg PO Q6H PRN 10/30/22 [History Last Taken Unknown] Allergy/AdvReac Type Severity Reaction Status Date / Time sitagliptin [From [facility]] Allergy Severe Rash Verified 10/30/22 08:43 theophylline Allergy Unknown Verified 10/30/22 08:43 chocolate flavor AdvReac Shortness Verified 10/30/22 08:43 of breath milk AdvReac Shortness Verified 10/30/22 08:43 of breath Family History (Reviewed 10/30/22 @ 08:52 by Toma Morley ENVIRONMENTAL PROGRAM MANAGER, ENVIRONMENTAL PROGRAM MANAGER-C) Mother CAD (coronary artery disease) Breast cancer Diabetes Surgical History H/O lithotripsy History of coronary artery stent placement (05/24/11) History of left heart catheterization (06/19/18) History of partial nephrectomy History of tonsillectomy Hx of cataract surgery L eye surgery partial nephrectomy for renal cell cancer Social History household members: spouse Smoking Status: Former smoker quit date: 09/29/84 pack-years: 17 how long ago did patient quit smokin, 1.5/d second hand exposure: Yes alcohol intake: never substance use type: does not use Physical Exam Const alert, oriented x3 and no apparent distress General Appearance: cooperative and comfortable Orientation / Consciousness: awake, oriented to person, oriented to place and oriented to time Extremity normal capillary refill Extremity Narrative: There is mild lower extremity lymphedema with mild hyperpigmentation to the anterior shins. Hair growth is diminished. Skin temp is warm. General Extremity: other findings Other Details: Good strength noted to right foot. Left is a little weak against resistance but pt is working on that. He states there is great improvement thus far. Left leg cannot be elevated fully due to hip pathology. Peripheral Pulses: Yes posterior tibial pulses present bilateral and dorsalis pedis pulses present bilateral (minimally) Skin Skin Narrative: Toenails are mildly elongated and there is a spicule without infection to left hallux lateral border. General Skin Exam: venous stasis Wound Narrative: There is a superficial, healing fissure to right plantar foot near the 4th metatarsal head area. The surrounding hyperkeratotic skin was removed without incident with tissue nippers. The central crumbly scab was easily removed also to reveal epithelialized area. No drainage. No probing. No dressing needed. Monitor. There is a superficial small fissure to right posterior plantar heel. No drainage. The surrounding callus was lightly mechanically sanded. No dressing needed. Pt admits he likes to go barefoot. Medical Records Data Medical Nutrition Assessment Dietitian: Malnutrition Criteria Met Start: 10/06/22 14:16 Freq: Status: Active Protocol: Document 10/30/22 17:31 SLA (Rec: 10/30/22 17:32 [facility] [id number]) Nutrition Malnutrition Evidence of Malnutrition Exists Yes Malnutrition (moderate): Acute Illness/Injury Evidenced By Suboptimal Energy Intake ( Moderate),Weight Loss (Severe) Intake Problem Increased Nutrient Needs (specify) Etiology protein related to skin status and recent surgeries Signs/Symptoms as evidenced by PI to buttock/ surgical incision Status Active Problem Inadequate Oral Intake Status Inactive Problem Clinical Problem Acute Disease or Injury Related Malnutrition Etiology related to recent surgery, anxiety and inability to consume adequate nutrition to meet est nutritional needs Signs/Symptoms as evidenced by now w/ additional 4% wt loss x 1 wk - and consuming <75% of est nutritional needs 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 Status Active Problem Recommendation Dietitian Recommendations/Changes Continue CHO Control with No Added Salt restricted diet Continue to provide Glucerna shake 120 ml tid w/ meals -per res request. Will continue Lester bid to help w/ wound healing - then d /c once skin healed and no longer appropriate Lab / Micro Data Result Diagrams: 10/27/22 06:00 10/30/22 05:33 Labs: Laboratory Results - last 24 hr 11/01/22 06:28: POC Glucose 123 H
[2022-11-01] MEDS: Gabapentin 300 MG Capsule PO (21:20)
[2022-11-01] MEDS: Sodium Chloride 0.65% 1 SPRAY SPRAY.BTL 2 SPRAY NASAL (22:24)
[2022-11-02 06:30] LABS: Bedside Glucose 122 mg/dL (74-106)
[2022-11-02] MEDS: busPIRone 5 MG Tablet 7.5 MG PO ×2 (06:41→17:58)
[2022-11-02] MEDS: Gabapentin 100 MG Capsule PO ×2 (06:41→12:49)
[2022-11-02] MEDS: Senna/Docusate Sodium 1 Tablet 2 TABLET PO ×2 (06:42→17:59)
[2022-11-02] MEDS: Polyethylene Glycol 3350 17 GM PACKET PO (06:43)
[2022-11-02] MEDS: Levothyroxine 100 MCG Tablet 200 MCG PO (06:43)
[2022-11-02] MEDS: Hydroxyurea 500 MG Capsule PO (06:43)
[2022-11-02 06:44] VITALS: BP 133/67; PULSE 111
[2022-11-02] MEDS: Metoprolol(XL)Succ 25 MG Tablet PO (06:44)
[2022-11-02] MEDS: Aspirin 81 MG TAB.CHEW PO (09:15)
[2022-11-02] MEDS: Potassium Chloride Oral Tablet 20 MEQ PO (09:15)
[2022-11-02] MEDS: metFORMIN HCl 500 MG Tablet PO ×2 (09:15→17:59)
[2022-11-02] MEDS: glipiZIDE XL 5 MG Tablet PO (09:15)
[2022-11-02] MEDS: Juven (unflavored) Packet 1 PACKET PO ×2 (09:15→17:58)
[2022-11-02] MEDS: 0.9% Saline Lock 10 ML Syringe IV (10:58)
[2022-11-02] MEDS: Menthol/Lanolin/Calamine/Znox 113 GM Tube 1 APPLIC TOPICAL ×2 (11:01→22:11)
[2022-11-02] MEDS: Magnesium Hydroxide 30 ML UDC PO (12:49)
[2022-11-02] MEDS: LORazepam 0.5 MG Tablet PO ×2 (12:49→22:39)
[2022-11-02 15:37] VITALS: BP 114/63; PULSE 116; RESP 16; TEMP 36.3; O2SAT 97
[2022-11-02] MEDS: Tamsulosin HCl 0.4 MG Capsule PO (17:59)
[2022-11-02] MEDS: Gabapentin 300 MG Capsule PO (22:06)
[2022-11-03] MEDS: Polyethylene Glycol 3350 17 GM PACKET PO (04:59)
[2022-11-03] MEDS: Gabapentin 100 MG Capsule PO ×2 (05:00→13:46)
[2022-11-03] MEDS: busPIRone 5 MG Tablet 7.5 MG PO ×2 (05:01→16:34)
[2022-11-03] MEDS: Senna/Docusate Sodium 1 Tablet 2 TABLET PO ×2 (05:02→16:35)
[2022-11-03] MEDS: Levothyroxine 100 MCG Tablet 200 MCG PO (05:02)
[2022-11-03 05:03] VITALS: BP 129/68; PULSE 110
[2022-11-03] MEDS: Metoprolol(XL)Succ 25 MG Tablet PO (05:03)
[2022-11-03] MEDS: Hydroxyurea 500 MG Capsule PO (05:03)
[2022-11-03] MEDS: traMADol 50 MG Tablet PO ×2 (05:07→22:50)
[2022-11-03] MEDS: 0.9% Saline Lock 10 ML Syringe IV ×2 (05:09→11:02)
[2022-11-03] MEDS: Menthol/Lanolin/Calamine/Znox 113 GM Tube 1 APPLIC TOPICAL ×3 (05:15→22:53)
[2022-11-03 06:31] LABS: Bedside Glucose 154 mg/dL (74-106)
[2022-11-03 07:32] LABS: Absolute Lymphocyte Count 1.26 X10^3/uL (0.83-4.51); Absolute Neutrophil Count 6.2 X10^3/uL (2.0-7.7); Basophil# 0.14 X10^3/uL; Basophil% 1.6 % (0-1); Eosinophil# 0.46 X10^3/uL; Eosinophils% 5.2 % (0-5); Hematocrit 35.4 % (40-54); Hemoglobin 10.6 g/dL (13.0-16.5); Lymphocyte # 1.26 X10^3/ul (0.83-4.51); Lymphocyte % 14.2 % (19-41); Mean Corp Hgb Conc 29.9 g/dL (32-36); Mean Corpuscular Hgb 27.8 pg (27.0-32.0); Mean Corpuscular Volume 92.9 fL (80-94); Mean Platelet Vol. 9.5 fl (6.2-12.0); Monocyte# 0.71 X10^3/uL; NRBC Flagged by Analyzer 0 % (0-5); Neutrophil # 6.24 X10^3/uL (2.7-7.7); Neutrophil % 70.2 % (47-70); Platelet Count 385 K/mm3 (150-450); RBC Distribution Width CV 15.8 % (11.6-14.6); RBC Distribution Width SD 53.7 fl (35.1-43.9); Red Blood Count 3.81 M/mm3 (4.6-6.2); White Blood Count 8.9 K/mm3 (4.4-11.0)
[2022-11-03 07:57] LABS: CPK Total, Creatine Kinase 22 U/L (39-308)
[2022-11-03 07:59] LABS: AST(SGOT) 23 U/L (15-37); Alanine Aminotransfer ALT/SGPT 37 U/L (16-61); Albumin, Serum 2.5 g/dL (3.2-5.0); Alkaline Phosphatase 92 U/L (45-117); Anion Gap 7 (5-15); BUN 26 mg/dL (7-18); BUN/Creat Ratio 30.3 RATIO (10-20); Bilirubin, Direct 0.11 mg/dL (0.00-0.30); Calcium,Total 9.8 mg/dL (8.5-10.1); Chloride 100 mmol/L (98-107); Creatinine, Serum 0.86 mg/dL (0.70-1.30); EST Glomerular Filtration Rate 94 mL/min (>60); Est Glom Filt Rate - Afr Amer 113 mL/min (>60); Estimated Creatinine Clearance 73.16 ml/min; Globulin 5.2 g/dL (2.2-4.2); Glucose 130 mg/dL (74-106); Potassium 3.9 mmol/L (3.5-5.1); Protein, Total 7.7 g/dL (6.4-8.2); Sodium Level 134 mmol/L (136-145)
[2022-11-03] MEDS: Aspirin 81 MG TAB.CHEW PO (09:21)
[2022-11-03] MEDS: Juven (unflavored) Packet 1 PACKET PO ×2 (09:22→16:34)
[2022-11-03] MEDS: glipiZIDE XL 5 MG Tablet PO (09:22)
[2022-11-03] MEDS: Potassium Chloride Oral Tablet 20 MEQ PO (09:22)
[2022-11-03] MEDS: metFORMIN HCl 500 MG Tablet PO ×2 (09:22→16:36)
[2022-11-03 09:36] VITALS: PULSE 98; RESP 16; O2SAT 97
[2022-11-03] MEDS: Sodium Chloride 0.65% 1 SPRAY SPRAY.BTL 2 SPRAY NASAL (14:39)
[2022-11-03 15:26] VITALS: BP 104/65; PULSE 96; RESP 16; TEMP 36.9; O2SAT 95
[2022-11-03] MEDS: Tamsulosin HCl 0.4 MG Capsule PO (16:36)
[2022-11-03] MEDS: Gabapentin 300 MG Capsule PO (22:51)
--- NOTE | 2022-11-04 04:15 | NURSING ---
Weekly labs obtained on 11/03, faxed to Dr. Thakkar at [phone]. Confirmation received.
[2022-11-04 06:40] LABS: Bedside Glucose 93 mg/dL (74-106)
[2022-11-04] MEDS: Gabapentin 100 MG Capsule PO ×2 (06:40→12:21)
[2022-11-04] MEDS: Senna/Docusate Sodium 1 Tablet 2 TABLET PO ×2 (06:40→17:42)
[2022-11-04 06:41] VITALS: BP 106/65; PULSE 95
[2022-11-04] MEDS: Metoprolol(XL)Succ 25 MG Tablet PO (06:41)
[2022-11-04] MEDS: busPIRone 5 MG Tablet 7.5 MG PO ×2 (06:41→17:42)
[2022-11-04] MEDS: Levothyroxine 100 MCG Tablet 200 MCG PO (06:42)
[2022-11-04] MEDS: Polyethylene Glycol 3350 17 GM PACKET PO (06:42)
[2022-11-04] MEDS: Menthol/Lanolin/Calamine/Znox 113 GM Tube 1 APPLIC TOPICAL ×3 (06:44→20:22)
[2022-11-04] MEDS: Hydroxyurea 500 MG Capsule PO (06:44)
[2022-11-04] MEDS: Potassium Chloride Oral Tablet 20 MEQ PO (08:11)
[2022-11-04] MEDS: glipiZIDE XL 5 MG Tablet PO (08:11)
[2022-11-04] MEDS: Aspirin 81 MG TAB.CHEW PO (08:11)
[2022-11-04] MEDS: Juven (unflavored) Packet 1 PACKET PO ×2 (08:11→17:41)
[2022-11-04] MEDS: metFORMIN HCl 500 MG Tablet PO ×2 (09:04→17:41)
[2022-11-04] MEDS: 0.9% Saline Lock 10 ML Syringe IV (09:05)
--- NOTE | 2022-11-04 09:40 | NURSING ---
according to date night sitter pt restless, up and down. out to lobby couple time per pt report. offered PRN ativan this AM and pt declined. feels he is doing fine. pt assisted from bed to chair in room. assisted him with putting pants, shirt and pullups on. call light in reach.
[2022-11-04] MEDS: traMADol 50 MG Tablet PO (12:21)
[2022-11-04 15:43] VITALS: BP 125/71; PULSE 105; RESP 17; TEMP 36.4; O2SAT 98
[2022-11-04] MEDS: Tamsulosin HCl 0.4 MG Capsule PO (17:41)
[2022-11-04] MEDS: Gabapentin 300 MG Capsule PO (20:22)
[2022-11-04] MEDS: LORazepam 0.5 MG Tablet PO (20:23)
[2022-11-04 21:00] VITALS: PULSE 97; RESP 18; O2SAT 98
[2022-11-05] MEDS: Polyethylene Glycol 3350 17 GM PACKET PO (05:20)
[2022-11-05] MEDS: Gabapentin 100 MG Capsule PO ×2 (05:21→13:58)
[2022-11-05] MEDS: busPIRone 5 MG Tablet 7.5 MG PO ×2 (05:22→17:16)
[2022-11-05] MEDS: Hydroxyurea 500 MG Capsule PO (05:22)
[2022-11-05 05:23] VITALS: BP 118/65; PULSE 104
[2022-11-05] MEDS: Menthol/Lanolin/Calamine/Znox 113 GM Tube 1 APPLIC TOPICAL ×2 (05:23→21:04)
[2022-11-05] MEDS: Levothyroxine 100 MCG Tablet 200 MCG PO (05:23)
[2022-11-05] MEDS: Metoprolol(XL)Succ 25 MG Tablet PO (05:23)
[2022-11-05] MEDS: Senna/Docusate Sodium 1 Tablet 2 TABLET PO ×2 (05:23→17:17)
--- NOTE | 2022-11-05 06:00 | RAD_ITS ---
STUDY: X-RAY - PELVIS REASON FOR EXAM: Male, 67 years old. Post Op TECHNIQUE: One view of the pelvis was obtained. COMPARISON: Comparison is made with prior study dated 2002. FINDINGS: There is a non-specific bowel gas pattern. Normal visualized soft tissue structures. There is narrowing with cortical sclerosis and osteophyte formation of the sacroiliac joint consistent with degenerative osteoarthritic changes. Normal visualized bilateral superior and inferior pubic rami. There are degenerative changes of the pubic symphysis with articular narrowing and sclerosis. Normal ischial tuberosities. Normal visualized right femoral head. There is osteoarthritic spur formation of the right acetabular rim. There is mild articular joint space narrowing of the right hip. The patient is status post left hip replacement. Stable examination. RAD/Pelvis 1 or 2 Views IMPRESSION: Stable examination. Electronically Signed: Anshul Arboleda MD at 14:37 EST ,
[2022-11-05 06:56] LABS: Bedside Glucose 138 mg/dL (74-106)
[2022-11-05] MEDS: glipiZIDE XL 5 MG Tablet PO (08:18)
[2022-11-05] MEDS: Aspirin 81 MG TAB.CHEW PO (08:18)
[2022-11-05] MEDS: Juven (unflavored) Packet 1 PACKET PO ×2 (08:19→17:15)
[2022-11-05] MEDS: Potassium Chloride Oral Tablet 20 MEQ PO (08:19)
[2022-11-05] MEDS: metFORMIN HCl 500 MG Tablet PO ×2 (08:19→17:15)
[2022-11-05] MEDS: 0.9% Saline Lock 10 ML Syringe IV (10:28)
[2022-11-05] MEDS: LORazepam 0.5 MG Tablet PO ×2 (10:34→21:05)
[2022-11-05] MEDS: traMADol 50 MG Tablet PO (13:05)
[2022-11-05] MEDS: Tamsulosin HCl 0.4 MG Capsule PO (17:15)
--- NOTE | 2022-11-05 17:38 | NURSING ---
Hip xrays completed and results faxed to Dr. Cheng.
--- NOTE | 2022-11-05 19:00 | PN.TCU_ITS ---
Subjective Subjective Resident seen, examined for regulatory visit. He has no new problems, concerns, issues, complaints. His anxiety is improving with buspar, and remote counseling sessions. Objective Data Objective Data Vital Signs: Vital Signs Temp Pulse Resp BP Pulse Ox O2 Del Method O2 Flow Rate 97.5 F L 104 H 18 118/65 98 Room Air 95 11/04/22 15:43 11/05/22 05:23 11/04/22 21:00 11/05/22 05:23 11/04/22 21:00 11/04/22 21:00 10/22/22 09:26 FiO2 21 10/26/22 22:15 Oxygen Flow Rate (L/min) 95 Oxygen Delivery Method Room Air Weight: 94.982 kg Intake & Output: Intake and Output for Last 24 Hours 11/03/22 11/04/22 11/05/22 23:59 23:59 23:59 Intake Total 963 / 963 1393 / 1393 682.5 / 682.5 Output Total 800 / 800 Balance 163 / 163 1393 / 1393 682.5 / 682.5 Medical Nutrition Assessment Dietitian: Malnutrition Criteria Met Start: 10/06/22 14:16 Freq: Status: Active Protocol: Document 10/30/22 17:31 SLA (Rec: 10/30/22 17:32 SLA [id number]) Nutrition Malnutrition Evidence of Malnutrition Exists Yes Malnutrition (moderate): Acute Illness/Injury Evidenced By Suboptimal Energy Intake ( Moderate),Weight Loss (Severe) Intake Problem Increased Nutrient Needs (specify) Etiology protein related to skin status and recent surgeries Signs/Symptoms as evidenced by PI to buttock/ surgical incision Status Active Problem Inadequate Oral Intake Status Inactive Problem Clinical Problem Acute Disease or Injury Related Malnutrition Etiology related to recent surgery, anxiety and inability to consume adequate nutrition to meet est nutritional needs Signs/Symptoms as evidenced by now w/ additional 4% wt loss x 1 wk - and 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 Status Active Problem Recommendation Dietitian Recommendations/Changes Continue CHO Control with No Added Salt restricted diet Continue to provide Glucerna shake 120 ml tid w/ meals -per res request. Will continue Lester bid to help w/ wound healing - then d /c once skin healed and no longer appropriate Lab / Micro Data Result Diagrams: 11/03/22 07:18 11/03/22 07:18 Labs: Laboratory Results - last 24 hr 11/05/22 06:28: POC Glucose 138 H Micro: Microbiology 10/15/22 18:30 Wound - Elbow Gram Stain - Final 10/15/22 18:30 Wound - Elbow Wound Culture - Final Proteus mirabilis 10/11/22 10:14 Nasal Secretion SARS-CoV-2 Antigen (Rapid) - Final 10/09/22 06:45 Nasal Secretion SARS-CoV-2 Antigen (Rapid) - Final 10/07/22 20:00 Stool C. difficile DNA Amplification - Final 10/07/22 13:35 Nasal Secretion SARS-CoV-2 Antigen (Rapid) - Final Radiography Diagnostic Testing: Radiology Impression Pelvis X-Ray 11/05/22 06:00 IMPRESSION: Stable examination. Electronically Signed: Anshul Arboleda MD at 14:37 EST , Physical Exam Const alert General Appearance: cooperative HEENT normocephalic Eyes PERRL and EOMs intact bilaterally Neck supple, no JVD and no carotid bruits Resp normal respiratory effort, normal air movement and clear to auscultation bilaterally Cardio regular rate and regular rhythm GI normal to inspection, nondistended, normoactive bowel sounds, non-tender and non-distended Extremity normal capillary refill Extremity Narrative: PICC right upper extremity. General Extremity: Negative for edema Skin no rashes or lesions noted General Skin Exam: no breakdown Psych affect normal Appearance: appropriate Assessment & Plan Assessment/Plan (1) Debility: (2) MRSA bacteremia: (3) Osteomyelitis of left hip: (4) Iliopsoas abscess: (5) Abscess, gluteal, left: (6) Polycythemia vera: (7) History of renal cell carcinoma: (8) Coronary artery disease: (9) Diabetes mellitus: (10) Hypertension: (11) Hyperlipidemia: (12) Hypothyroidism: PLAN: Plan 67 year old male with below past medical history hospitalized for MRSA sepsis secondary to osteomyelitis/abscess left hip, underwent left hip debridement/spacer implantation, admitted to TCU with debility, here for rehabilitation, strengthening, intravenous antibiotics, prior to discharge home with . * Debility - PT/OT. * Pain - Tramadol 50mg q6h prn pain (4-5), Oxycodone 5mg q4h prn pain (6-10). * Bowel - Miralax 17gm daily, senna/colace 2 tablets bid, Dulcolax 10mg pr x 1 prn, MOM 30ml po x 1 prn. * Adult immunization - Administer pneumonia vaccine, covid19 vaccine, flu vaccine as appropriate. * DVT prophylaxis - Done with DVT prophylaxis. * Coronary artery disease - Metoprolol succinate 25mg daily, Aspirin 81mg daily. 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 Morgan. * Neuropathic pain - Gabapentin 100mg bid, 300mg qhs. * Diabetes Mellitus II - Metformin 500mg bid, Glipizide 5mg daily. * P. Vera - Hydroxyurea 500mg daily. * Hypothyroidism - Levothyroxine 225mcg daily. * Skin irritation - Calmoseptine topical tid. * Nutrition - Lester 1 packet po bidcm. * GI prophylaxis - Lactobacillus 1 capsule po bid. * Anxiety - Buspar 7.5mg twice daily, Lorazepam 0.5mg q6h prn. * Hypokalemia - KCL ER 20meq daily. * Gas - Simethicone 80mg tid. * Dry nares - Sodium chloride 2 sprays nasal bid prn. * BPH - Tamsulosin 0.4mg daily. Capacity Capacity Assessment Tool Can the patient make a choice & communicate that choice?: Yes Can the patient understand benefits, risks and alternatives?: Yes Can the patient make a logical, rational choice?: Yes Is the choice the patient makes consistent w/ their values?: Yes Is there an impending, emergent risk to the patient?: No Does the patient have an Advance Directive?: No Is there a Surrogate Available?: Yes i.e. HCPOA: Yes i.e. close relative (spouse, child, parent, sibling)?: Yes
[2022-11-05 21:00] VITALS: PULSE 98; RESP 18; O2SAT 98
[2022-11-05] MEDS: Gabapentin 300 MG Capsule PO (21:04)
[2022-11-06] MEDS: Polyethylene Glycol 3350 17 GM PACKET PO (04:19)
[2022-11-06] MEDS: Hydroxyurea 500 MG Capsule PO (04:20)
[2022-11-06] MEDS: busPIRone 5 MG Tablet 7.5 MG PO ×2 (04:20→18:19)
[2022-11-06] MEDS: Levothyroxine 100 MCG Tablet 200 MCG PO (04:21)
[2022-11-06] MEDS: traMADol 50 MG Tablet PO ×3 (04:21→21:37)
[2022-11-06] MEDS: Gabapentin 100 MG Capsule PO ×2 (04:21→13:31)
[2022-11-06] MEDS: Senna/Docusate Sodium 1 Tablet 2 TABLET PO ×2 (04:21→18:19)
[2022-11-06 04:22] VITALS: BP 114/68; PULSE 104
[2022-11-06] MEDS: Metoprolol(XL)Succ 25 MG Tablet PO (04:22)
[2022-11-06] MEDS: Menthol/Lanolin/Calamine/Znox 113 GM Tube 1 APPLIC TOPICAL ×3 (04:25→22:08)
[2022-11-06 06:45] LABS: Bedside Glucose 127 mg/dL (74-106)
[2022-11-06] MEDS: Juven (unflavored) Packet 1 PACKET PO ×2 (08:31→18:18)
[2022-11-06] MEDS: glipiZIDE XL 5 MG Tablet PO (08:31)
[2022-11-06] MEDS: Potassium Chloride Oral Tablet 20 MEQ PO (08:31)
[2022-11-06] MEDS: metFORMIN HCl 500 MG Tablet PO ×2 (08:31→18:19)
[2022-11-06] MEDS: Aspirin 81 MG TAB.CHEW PO (08:31)
[2022-11-06] MEDS: 0.9% Saline Lock 10 ML Syringe IV ×2 (09:45→22:49)
[2022-11-06 09:54] VITALS: PULSE 90; RESP 18; O2SAT 96
[2022-11-06 15:34] VITALS: BP 117/63; PULSE 96; RESP 18; TEMP 36.2; O2SAT 95
[2022-11-06] MEDS: Tamsulosin HCl 0.4 MG Capsule PO (18:19)
[2022-11-06] MEDS: Gabapentin 300 MG Capsule PO (22:08)
[2022-11-06] MEDS: LORazepam 0.5 MG Tablet PO (22:49)
[2022-11-07] MEDS: Sodium Chloride 0.65% 1 SPRAY SPRAY.BTL 2 SPRAY NASAL (01:58)
[2022-11-07] MEDS: Gabapentin 100 MG Capsule PO ×2 (04:59→14:12)
[2022-11-07] MEDS: busPIRone 5 MG Tablet 7.5 MG PO ×2 (04:59→18:17)
[2022-11-07 05:02] VITALS: BP 119/70; PULSE 87
[2022-11-07] MEDS: Senna/Docusate Sodium 1 Tablet 2 TABLET PO ×2 (05:02→18:16)
[2022-11-07] MEDS: Hydroxyurea 500 MG Capsule PO (05:02)
[2022-11-07] MEDS: Metoprolol(XL)Succ 25 MG Tablet PO (05:02)
[2022-11-07] MEDS: Menthol/Lanolin/Calamine/Znox 113 GM Tube 1 APPLIC TOPICAL ×3 (05:02→21:29)
[2022-11-07] MEDS: Polyethylene Glycol 3350 17 GM PACKET PO (05:02)
[2022-11-07] MEDS: Levothyroxine 100 MCG Tablet 200 MCG PO (05:02)
[2022-11-07 06:36] LABS: Bedside Glucose 125 mg/dL (74-106)
[2022-11-07] MEDS: Potassium Chloride Oral Tablet 20 MEQ PO (08:48)
[2022-11-07] MEDS: glipiZIDE XL 5 MG Tablet PO (08:48)
[2022-11-07] MEDS: Juven (unflavored) Packet 1 PACKET PO ×2 (08:48→18:16)
[2022-11-07] MEDS: metFORMIN HCl 500 MG Tablet PO ×2 (08:48→18:17)
[2022-11-07] MEDS: Aspirin 81 MG TAB.CHEW PO (08:48)
--- NOTE | 2022-11-07 08:55 | NURSING ---
pt was able to dress self this AM using towel folder for putting pullups and shorts on. pt sitting on edge of bed, stated now, I feel like a human.
--- NOTE | 2022-11-07 09:36 | PN.ID_ITS ---
Physical Exam Narrative Feeling well. No fever, no n/v/d. Hip doing well. Const alert and no apparent distress Resp normal air movement and clear to auscultation bilaterally Cardio regular rate and regular rhythm GI soft to palpation, non-tender and non-distended Skin Skin Narrative: L hip incision well healed ID ID: Route of nutrition/ use of supplements: [] Nutritional Intake: [] IV Site: [] Rangel Catheter: [] Assessment & Plan Assessment/Plan (1) MRSA bacteremia: PLAN: MRSA bacteremia with L hip osteo requiring I&D and spacer placement at [facility] 09/30/22. Discharged to TCU on dapto with stop date 11/11/22. Checking LFT and CK to weekly labs. Hip doing well, CRP much improved. Plan on abx to stop and picc removal 11/11/22 with close ortho followup. Will follow as needed (2) Osteomyelitis of left hip:
[2022-11-07] MEDS: 0.9% Saline Lock 10 ML Syringe IV (10:32)
[2022-11-07] MEDS: traMADol 50 MG Tablet PO ×2 (11:57→22:52)
--- NOTE | 2022-11-07 12:32 | NURSING ---
MESSAGE LEFT WITH DR Cheng office per request, requesting next appt date/time, review of xray results and when to get MRI before next surgery. awaiting return call. also spoke with Dr Munguia, infectious disease in [place] regarding appt on Saturday 11/11 which will be over the phone and aware and will be here for any questions.
--- NOTE | 2022-11-07 14:03 | WOUNDNOTE ---
Dressing to right elbow was changed by nursing yesterday.
[2022-11-07 14:48] VITALS: BP 119/66; PULSE 94; RESP 16; TEMP 36.3; O2SAT 96
--- NOTE | 2022-11-07 15:34 | CHAPLAIN ---
Type of Pastoral Visit ___ Initial Visit _x__ Follow-up Visit ___ On-call Visit ___ General Patient Visit ___ Spiritual Assessment ___ Family Conference ___ Bereavement ___ Rapid Response ___ Code Blue ___ Other (describe below) Pastoral Care Referral From _x__ Patient ___ Family ___ Nurse ___ Physician ___ Coke Drawer ___ Soap Maker ___ Other (describe below) Sacrament/Intervention _x__ Active listening ___ Anointing ___ Judaism ___ Bereavement ___ Communion ___ Rula exploration ___ ___ Life review _x__ Prayer ___ Reconciliation ___ Sacrament of Sick ___ Supportive presence ___ Wedding ___ Other (describe below) Pastoral Comments patient's long stay continues but an end is in sight; pt speaks of his ongoing struggles with anxiety and claustrophobia but admittedly feeling some better and managing through this stay; pt speaks of going home and his goals there; pt hopes to get to caodaism soon too; patient states that he only needs a prayer right now
--- NOTE | 2022-11-07 16:48 | CASEMGMT ---
Social Work Met with patient and to discuss DC plans. End of IV ATB are 11/11, IDT setting DC for 11/12. Pt/ agreeable. SW explained HHC vs OP. Pt/ requesting HHC. SW offered HHC list. [facility] SW phoned referral to [facility] for PT/OT/SN. No DME needs. Plan: DC home with 11/12, [facility] PT/OT/SN NATALY RodriguezW
[2022-11-07] MEDS: Tamsulosin HCl 0.4 MG Capsule PO (18:17)
--- NOTE | 2022-11-07 19:44 | DS.PCM_ITS ---
Providers Date of Admission: 10/05/22 Primary Care Physician: Dr. Lauren Quick MD Consultations 10/05/22 22:21 Consult: Onc/Wound/community center worker Routine Comment: Reason for Consult:: Right elbow, PRESSURE AREAS TO BUTTOCKS 10/05/22 22:39 Consult: Infectious Disease Routine Consulting Provider: Florencio Morgan Reason for Consult: MRSA left hip osteomyelitis, s/p debridment/spacer placement. EMERGENT Consult: No MD Notified: Yes Date Notified: 10/07/22 Time Notified: 10:03 Method of Notification: Answering Service 10/30/22 17:21 Consult: Podiatry Routine Consulting Provider: Sarahy Sofia Reason for Consult: General foot care. EMERGENT Consult: No MD Notified: Yes Date Notified: 11/01/22 Time Notified: 08:55 Method of Notification: Verbal Reason For Visit: SEPTIC ARTHRITIS OF L HIP Diagnosis Discharge Diagnosis (1) MRSA bacteremia: Status: Acute Code(s): R78.81 - Bacteremia; B95.62 - Methicillin resistant Staphylococcus aureus infection as the cause of diseases classified elsewhere (2) Osteomyelitis of left hip: Status: Acute Code(s): M86.9 - Osteomyelitis, unspecified Plan 67 year old male with below past medical history hospitalized for MRSA sepsis secondary to osteomyelitis/abscess left hip, underwent left hip debridement/spacer implantation, admitted to TCU with debility, here for rehabilitation, strengthening, intravenous antibiotics, prior to discharge home with . * Debility - PT/OT. * Pain - Tramadol 50mg q6h prn pain (4-5), Oxycodone 5mg q4h prn pain (6-10). * Bowel - Miralax 17gm daily, senna/colace 2 tablets bid, Dulcolax 10mg pr x 1 prn, MOM 30ml po x 1 prn. * Adult immunization - Administer pneumonia vaccine, covid19 vaccine, flu vaccine as appropriate. * DVT prophylaxis - Done with DVT prophylaxis. * Coronary artery disease - Metoprolol succinate 25mg daily, Aspirin 81mg daily. 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 Morgan. * Neuropathic pain - Gabapentin 100mg bid, 300mg qhs. * Diabetes Mellitus II - Metformin 500mg bid, Glipizide 5mg daily. * P. Vera - Hydroxyurea 500mg daily. * Hypothyroidism - Levothyroxine 225mcg daily. * Skin irritation - Calmoseptine topical tid. * Nutrition - Lester 1 packet po bidcm. * GI prophylaxis - Lactobacillus 1 capsule po bid. * Anxiety - Buspar 7.5mg twice daily, Lorazepam 0.5mg q6h prn. * Hypokalemia - KCL ER 20meq daily. * Gas - Simethicone 80mg tid. * Dry nares - Sodium chloride 2 sprays nasal bid prn. * BPH - Tamsulosin 0.4mg daily. Medications at Discharge Home Medications aspirin 81 mg chewable tablet 81 mg PO DAILY@0800 ANTIPLATELET 03/17/16 hydroxyurea 500 mg capsule 500 mg PO DAILY Ask 12/17/18 gabapentin 100 mg capsule 100 mg PO 0600,1300 Neuropathy 09/13/22 gabapentin 100 mg tablet 300 mg PO QHS Neuropathy 10/05/22 glipizide 5 mg tablet, extended release 24 hr 5 mg PO DAILY DM 10/05/22 menthol 0.44 %-zinc oxide 20.6 % topical cream 1 applic topical TID Skin protection 10/05/22 metoprolol succinate 25 mg tablet,extended release 24 hr 25 mg PO DAILY BLOOD PRESSURE 10/05/22 acidophilus 25 million cell-pectin, citrus 100 mg tablet 1 tab PO BID #0 tabs 11/07/22 arginine 7 gram-glutam 7 gram-CaHMB 1.5 [id number] oral pwd pkt (Lester (with collagen)) 1 packet PO BIDCM 30 days #60 ea 11/07/22 buspirone 5 mg tablet 7.5 mg PO BID 30 days #90 tabs 11/07/22 levothyroxine 100 mcg tablet 200 mcg PO DAILY 30 days #60 tabs 11/07/22 lorazepam 0.5 mg tablet 0.5 mg PO Q6H PRN PRN Anxiety/Restlessness/Sleep 7 days #28 tabs 11/07/22 metformin 500 mg tablet 500 mg PO BIDCM 30 days #60 tabs 11/07/22 potassium chloride 20 mEq tablet,extended release(part/cryst) (Klor-Con M) 20 meq PO BREAKFAST 30 days #30 tabs 11/07/22 simethicone 80 mg chewable tablet 80 mg PO TIDPC 30 days #90 tabs 11/07/22 sodium chloride 0.65 % nasal spray aerosol (Deep Sea Nasal) 2 spray NASAL BID PRN PRN NASAL DRYNESS #0 mL 11/07/22 tamsulosin 0.4 mg capsule 0.4 mg PO DAILY@1730 #0 caps 11/07/22 tramadol 50 mg tablet 50 mg PO Q6H PRN PRN Pain Score 4-5 7 days #28 tabs 11/07/22 Hospital Course Operations - (See below.) Procedures None Summary of Care Provided Minutes Spent on Discharge: 35 Hospital Course: 67 year old male with below past medical history hospitalized for MRSA sepsis secondary to osteomyelitis/abscess left hip, underwent left hip debridement/spacer implantation, admitted to TCU with debility, here for rehabilitation, strengthening, intravenous antibiotics, prior to discharge home with . 10/15/2022 Right elbow abscess grew Proteus Mirabilis, treated with 7 days of Amoxicillin per Dr. Morgan. Buspar 7.5mg twice daily added along with Lorazepam for intractable anxiety. Resident also has remote counseling sessions. Discharge home with 11/12/2022, [facility] PT/OT/SN. Physical Exam Const alert General Appearance: cooperative HEENT normocephalic Eyes PERRL and EOMs intact bilaterally Neck supple, no JVD and no carotid bruits Resp normal respiratory effort, normal air movement and clear to auscultation bilaterally Cardio regular rate and regular rhythm GI normal to inspection, nondistended, normoactive bowel sounds, non-tender and non-distended Extremity normal capillary refill General Extremity: Negative for edema Skin no rashes or lesions noted General Skin Exam: no breakdown Psych affect normal Appearance: appropriate Medical Records Data Medical Nutrition Assessment Dietitian: Malnutrition Criteria Met Start: 10/06/22 14:16 Freq: Status: Active Protocol: Document 10/30/22 17:31 PILAR (Rec: 10/30/22 17:32 PILAR [id number]) Nutrition Malnutrition Evidence of Malnutrition Exists Yes Malnutrition (moderate): Acute Illness/Injury Evidenced By Suboptimal Energy Intake ( Moderate),Weight Loss (Severe) Intake Problem Increased Nutrient Needs (specify) Etiology protein related to skin status and recent surgeries Signs/Symptoms as evidenced by PI to buttock/ surgical incision Status Active Problem Inadequate Oral Intake Status Inactive Problem Clinical Problem Acute Disease or Injury Related Malnutrition Etiology related to recent surgery, anxiety and inability to consume adequate nutrition to meet est nutritional needs Signs/Symptoms as evidenced by now w/ additional 4% wt loss x 1 wk - and 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 Will continue Lester bid to help w/ wound healing - then d /c once skin healed and no longer appropriate Weight / BMI Weight Weight: 94.982 kg ABG / Lab / Microbiology Data Result Diagrams: 11/03/22 07:18 11/03/22 07:18 Laboratory: Laboratory Results - last 24 hr 11/07/22 06:10: POC Glucose 125 H Microbiology: Microbiology 10/15/22 18:30 Wound - Elbow Gram Stain - Final 10/15/22 18:30 Wound - Elbow Wound Culture - Final Proteus mirabilis 10/11/22 10:14 Nasal Secretion SARS-CoV-2 Antigen (Rapid) - Final 10/09/22 06:45 Nasal Secretion SARS-CoV-2 Antigen (Rapid) - Final 10/07/22 20:00 Stool C. difficile DNA Amplification - Final 10/07/22 13:35 Nasal Secretion SARS-CoV-2 Antigen (Rapid) - Final D/C Instructions Discharge Diet: No restrictions Discharge Activity: Return to Normal Activity, May Shower and Use Walker Weight Bearing Status: Weight bearing as tolerated Call your doctor if you observe: Fever of 101 or Higher, Inability to urinate, Inability to have a bowel movement, Shortness of breath, Dizziness, Fainting spells, Swelling in the ankles, Chest pain and Uncontrolled pain Additional Instructions: Discharge home with 11/12/2022, [facility] PT/OT/SN. Please Follow Up With: Lauren Quick MD When: 1 week. Meaningful Use Info Meaningful Use Diagnoses (Choose all that apply): None applicable Discharge Plan Admission Admit Date/Time: 10/05/22 21:00 Primary Reason for Your Visit: Debility. Attending Provider: Wenceslao Reyes Chi Primary Care Provider: Lauren Quick Consulting Providers: Florencio Morgan ; Sarahy Sofia Instructions Additional Instructions / Restrictions: Discharge home with 11/12/2022, [facility] PT/OT/SN. Discharge Orders/Prescriptions Prescriptions: New buspirone 5 mg Tablet 7.5 mg PO BID 30 Days Qty: 90 0RF metformin 500 mg Tablet 500 mg PO BIDCM 30 Days Qty: 60 0RF tramadol 50 mg Tablet 50 mg PO Q6H PRN PRN (Reason: Pain Score 4-5) 7 Days Qty: 28 0RF levothyroxine 100 mcg Tablet 200 mcg PO DAILY 30 Days Qty: 60 0RF potassium chloride [Klor-Con M20] 20 mEq Tablet,Er Particles/Crystals 20 meq PO BREAKFAST 30 Days Qty: 30 0RF lorazepam 0.5 mg Tablet 0.5 mg PO Q6H PRN PRN (Reason: Anxiety/Restlessness/Sleep) 7 Days Qty: 28 0RF tamsulosin 0.4 mg Capsule 0.4 mg PO DAILY@1730 Qty: 0 0RF simethicone 80 mg Tablet,Chewable 80 mg PO TIDPC 30 Days Qty: 90 0RF Deep Sea Nasal 0.65 % Aerosol,[place] 2 spray NASAL BID PRN PRN (Reason: NASAL DRYNESS) Qty: 0 0RF acidophilus-pectin, citrus 25 million cell -100 mg Tablet 1 tab PO BID Qty: 0 0RF Lester (with collagen) 7-7-1.5 gram Powder In Packet 1 packet PO BIDCM 30 Days Qty: 60 0RF Continued aspirin 81 MG tablet,chewable 81 mg PO DAILY@0800 Label Comments: heart health hydroxyurea 500 mg capsule 500 mg PO DAILY gabapentin 100 mg capsule 100 mg PO 0600,1300 gabapentin 100 mg Tablet 300 mg PO QHS menthol-zinc oxide 0.44-20.6 % Cream 1 applic TOPICAL TID Rx Instructions: Apply to coccyx glipizide 5 mg tablet extended release 24hr 5 mg PO DAILY metoprolol succinate 25 mg tablet extended release 24 hr 25 mg PO DAILY Discontinued Adult Probiotic 3 billion cell capsule 3,000 mmu cells PO DAILY Rx Instructions: administer with a meal omega-3 fatty acids [Fish Oil Concentrate] 1,000 mg capsule 1,000 mg PO DAILY multivitamin Tablet 1 tab PO DAILY buspirone 5 mg tablet 7.5 mg PO BID metformin 500 mg tablet 500 mg PO BID nutritional supplements Powder PO lorazepam [Ativan] 0.5 mg tablet 0.5 mg PO .Q6 PRN oxycodone 5 mg tablet 5 mg PO Q4H PRN tramadol 50 mg tablet 50 mg PO Q6H PRN levothyroxine 200 mcg tablet 225 mcg PO DAILY Rx Instructions: take with a 25 mcg tamsulosin 0.4 mg Capsule 0.8 mg PO DAILY@1730 Qty: 60 0RF daptomycin 500 mg Recon Soln 500 mg IV DAILY Rx Instructions: administer over 30 mins valsartan-hydrochlorothiazide 80-12.5 mg tablet 1 tab PO DAILY Qty: 90 3RF hydrocodone-acetaminophen 5-325 mg tablet 1 tab PO Q4H PRN PRN (Reason: Pain Score 4-10) 7 Days Qty: 30 0RF celecoxib 100 mg capsule 100 mg PO BID Qty: 20 0RF Referrals / Follow Up: Lauren Quick MD [Primary Care Provider] - Disposition Disposition (needs filled in before D/C Order can be placed): Home Health Service
[2022-11-07 20:00] VITALS: PULSE 99; RESP 16; O2SAT 99
[2022-11-07] MEDS: Gabapentin 300 MG Capsule PO (21:28)
[2022-11-08] MEDS: Sodium Chloride 0.65% 1 SPRAY SPRAY.BTL 2 SPRAY NASAL (03:48)
[2022-11-08] MEDS: Senna/Docusate Sodium 1 Tablet 2 TABLET PO ×2 (06:36→17:40)
[2022-11-08] MEDS: Gabapentin 100 MG Capsule PO ×2 (06:36→13:04)
[2022-11-08] MEDS: busPIRone 5 MG Tablet 7.5 MG PO ×2 (06:36→17:41)
[2022-11-08] MEDS: Levothyroxine 100 MCG Tablet 200 MCG PO (06:37)
[2022-11-08] MEDS: Menthol/Lanolin/Calamine/Znox 113 GM Tube 1 APPLIC TOPICAL ×3 (06:37→21:45)
[2022-11-08 06:38] VITALS: BP 119/74; PULSE 89
[2022-11-08] MEDS: Metoprolol(XL)Succ 25 MG Tablet PO (06:38)
[2022-11-08] MEDS: Hydroxyurea 500 MG Capsule PO (06:38)
[2022-11-08] MEDS: Polyethylene Glycol 3350 17 GM PACKET PO (06:38)
[2022-11-08 06:45] LABS: Bedside Glucose 126 mg/dL (74-106)
[2022-11-08] MEDS: Juven (unflavored) Packet 1 PACKET PO ×2 (08:35→17:40)
[2022-11-08] MEDS: Aspirin 81 MG TAB.CHEW PO (08:36)
[2022-11-08] MEDS: glipiZIDE XL 5 MG Tablet PO (08:36)
[2022-11-08] MEDS: Potassium Chloride Oral Tablet 20 MEQ PO (08:36)
[2022-11-08] MEDS: metFORMIN HCl 500 MG Tablet PO ×2 (08:36→17:40)
[2022-11-08] MEDS: traMADol 50 MG Tablet PO (09:51)
[2022-11-08 15:35] VITALS: BP 115/66; PULSE 88; RESP 16; TEMP 36.2; O2SAT 97
[2022-11-08] MEDS: Tamsulosin HCl 0.4 MG Capsule PO (17:40)
[2022-11-08] MEDS: LORazepam 0.5 MG Tablet PO (19:50)
[2022-11-08] MEDS: Gabapentin 300 MG Capsule PO (21:44)
[2022-11-09] MEDS: Polyethylene Glycol 3350 17 GM PACKET PO (04:51)
[2022-11-09] MEDS: Senna/Docusate Sodium 1 Tablet 2 TABLET PO ×2 (04:51→17:34)
[2022-11-09 04:52] VITALS: BP 113/61; PULSE 102
[2022-11-09] MEDS: Levothyroxine 100 MCG Tablet 200 MCG PO (04:52)
[2022-11-09] MEDS: Metoprolol(XL)Succ 25 MG Tablet PO (04:52)
[2022-11-09] MEDS: Gabapentin 100 MG Capsule PO ×2 (04:52→12:58)
[2022-11-09] MEDS: Hydroxyurea 500 MG Capsule PO (04:52)
[2022-11-09] MEDS: busPIRone 5 MG Tablet 7.5 MG PO ×2 (04:52→17:33)
[2022-11-09] MEDS: Menthol/Lanolin/Calamine/Znox 113 GM Tube 1 APPLIC TOPICAL ×3 (04:55→21:36)
--- NOTE | 2022-11-09 05:36 | PCA ---
pt was up and down all night. coming out to common area to watch tv and turning it up loud even when staff would turn it down he would turn it up. pt also not putting on his mask when asked to when out of his room.
[2022-11-09 06:26] LABS: Bedside Glucose 136 mg/dL (74-106)
[2022-11-09] MEDS: glipiZIDE XL 5 MG Tablet PO (08:21)
[2022-11-09] MEDS: Aspirin 81 MG TAB.CHEW PO (08:21)
[2022-11-09] MEDS: metFORMIN HCl 500 MG Tablet PO ×2 (08:23→17:32)
[2022-11-09] MEDS: Juven (unflavored) Packet 1 PACKET PO ×2 (08:24→17:32)
[2022-11-09] MEDS: Potassium Chloride Oral Tablet 20 MEQ PO (08:24)
[2022-11-09] MEDS: traMADol 50 MG Tablet PO ×2 (09:02→21:48)
[2022-11-09] MEDS: 0.9% Saline Lock 10 ML Syringe IV (10:14)
[2022-11-09] MEDS: Sodium Chloride 0.65% 1 SPRAY SPRAY.BTL 2 SPRAY NASAL (12:58)
[2022-11-09 14:24] VITALS: BP 137/84; PULSE 100; RESP 17; TEMP 36.3; O2SAT 97
[2022-11-09] MEDS: Tamsulosin HCl 0.4 MG Capsule PO (17:32)
[2022-11-09] MEDS: Gabapentin 300 MG Capsule PO (21:34)
[2022-11-10 04:41] LABS: Absolute Lymphocyte Count 1.12 X10^3/uL (0.83-4.51); Absolute Neutrophil Count 4.8 X10^3/uL (2.0-7.7); Basophil# 0.11 X10^3/uL; Basophil% 1.5 % (0-1); Eosinophil# 0.46 X10^3/uL; Eosinophils% 6.3 % (0-5); Hematocrit 35.5 % (40-54); Hemoglobin 10.8 g/dL (13.0-16.5); Lymphocyte # 1.12 X10^3/ul (0.83-4.51); Lymphocyte % 15.3 % (19-41); Mean Corp Hgb Conc 30.4 g/dL (32-36); Mean Corpuscular Hgb 27.7 pg (27.0-32.0); Mean Platelet Vol. 9.5 fl (6.2-12.0); Monocyte# 0.76 X10^3/uL; Monocyte% 10.4 % (0-10); NRBC Flagged by Analyzer 0 % (0-5); Neutrophil # 4.84 X10^3/uL (2.7-7.7); Platelet Count 283 K/mm3 (150-450); RBC Distribution Width CV 16.4 % (11.6-14.6); RBC Distribution Width SD 54.5 fl (35.1-43.9); White Blood Count 7.3 K/mm3 (4.4-11.0)
[2022-11-10 05:01] LABS: AST(SGOT) 22 U/L (15-37); Alanine Aminotransfer ALT/SGPT 27 U/L (16-61); Albumin, Serum 2.6 g/dL (3.2-5.0); Alkaline Phosphatase 100 U/L (45-117); Anion Gap 6 (5-15); BUN 28 mg/dL (7-18); BUN/Creat Ratio 36.5 RATIO (10-20); Bilirubin, Direct 0.09 mg/dL (0.00-0.30); Calcium,Total 9.6 mg/dL (8.5-10.1); Chloride 101 mmol/L (98-107); Creatinine, Serum 0.77 mg/dL (0.70-1.30); EST Glomerular Filtration Rate 107 mL/min (>60); Est Glom Filt Rate - Afr Amer 129 mL/min (>60); Estimated Creatinine Clearance 62.91 ml/min; Globulin 5.2 g/dL (2.2-4.2); Glucose 126 mg/dL (74-106); Potassium 3.9 mmol/L (3.5-5.1); Protein, Total 7.8 g/dL (6.4-8.2); Sodium Level 136 mmol/L (136-145)
[2022-11-10 05:06] LABS: CPK Total, Creatine Kinase 33 U/L (39-308)
[2022-11-10] MEDS: Polyethylene Glycol 3350 17 GM PACKET PO (05:18)
[2022-11-10] MEDS: Gabapentin 100 MG Capsule PO ×2 (05:18→13:24)
[2022-11-10] MEDS: busPIRone 5 MG Tablet 7.5 MG PO ×2 (05:20→17:08)
[2022-11-10] MEDS: Levothyroxine 100 MCG Tablet 200 MCG PO (05:21)
[2022-11-10 05:22] VITALS: BP 122/77; PULSE 86
[2022-11-10] MEDS: Senna/Docusate Sodium 1 Tablet 2 TABLET PO ×2 (05:22→17:08)
[2022-11-10] MEDS: Metoprolol(XL)Succ 25 MG Tablet PO (05:22)
[2022-11-10] MEDS: Hydroxyurea 500 MG Capsule PO (05:23)
[2022-11-10] MEDS: 0.9% Saline Lock 10 ML Syringe IV ×3 (05:24→22:19)
[2022-11-10] MEDS: Menthol/Lanolin/Calamine/Znox 113 GM Tube 1 APPLIC TOPICAL ×3 (05:26→22:21)
[2022-11-10 06:26] LABS: Bedside Glucose 119 mg/dL (74-106)
[2022-11-10] MEDS: traMADol 50 MG Tablet PO ×3 (06:31→22:17)
[2022-11-10] MEDS: Juven (unflavored) Packet 1 PACKET PO ×2 (07:59→17:07)
[2022-11-10] MEDS: Potassium Chloride Oral Tablet 20 MEQ PO (07:59)
[2022-11-10] MEDS: metFORMIN HCl 500 MG Tablet PO ×2 (08:00→17:09)
[2022-11-10] MEDS: glipiZIDE XL 5 MG Tablet PO (08:01)
[2022-11-10] MEDS: Aspirin 81 MG TAB.CHEW PO (08:01)
[2022-11-10 14:07] VITALS: BP 130/76; PULSE 89; RESP 16; TEMP 36.2; O2SAT 98
[2022-11-10] MEDS: LORazepam 0.5 MG Tablet PO (14:27)
[2022-11-10] MEDS: Tamsulosin HCl 0.4 MG Capsule PO (17:09)
[2022-11-10] MEDS: Gabapentin 300 MG Capsule PO (22:17)
[2022-11-11] MEDS: Polyethylene Glycol 3350 17 GM PACKET PO (06:26)
[2022-11-11] MEDS: Levothyroxine 100 MCG Tablet 200 MCG PO (06:27)
[2022-11-11] MEDS: Gabapentin 100 MG Capsule PO ×2 (06:27→12:58)
[2022-11-11 06:29] VITALS: BP 110/69; PULSE 87
[2022-11-11] MEDS: Metoprolol(XL)Succ 25 MG Tablet PO (06:29)
[2022-11-11] MEDS: Senna/Docusate Sodium 1 Tablet 2 TABLET PO ×2 (06:29→17:28)
[2022-11-11] MEDS: busPIRone 5 MG Tablet 7.5 MG PO ×2 (06:30→17:29)
[2022-11-11 06:31] LABS: Bedside Glucose 100 mg/dL (74-106)
[2022-11-11] MEDS: Hydroxyurea 500 MG Capsule PO (06:31)
[2022-11-11] MEDS: Menthol/Lanolin/Calamine/Znox 113 GM Tube 1 APPLIC TOPICAL ×2 (06:33→20:10)
[2022-11-11] MEDS: Juven (unflavored) Packet 1 PACKET PO ×2 (08:01→17:32)
[2022-11-11] MEDS: glipiZIDE XL 5 MG Tablet PO (08:01)
[2022-11-11] MEDS: metFORMIN HCl 500 MG Tablet PO ×2 (08:01→17:29)
[2022-11-11] MEDS: Aspirin 81 MG TAB.CHEW PO (08:01)
[2022-11-11] MEDS: Potassium Chloride Oral Tablet 20 MEQ PO (08:02)
--- NOTE | 2022-11-11 10:47 | CASEMGMT ---
Social Work BIMS (09/12) and PHQ-9 (03/25) completed for MDS assessment. Yu Barrera MSW LEARNING AND DEVELOPMENT OFFICER
--- NOTE | 2022-11-11 11:57 | WOUNDNOTE ---
wound photo: right elbow
[2022-11-11] MEDS: LORazepam 0.5 MG Tablet PO ×2 (12:58→20:11)
[2022-11-11 14:14] VITALS: BP 121/66; PULSE 97; RESP 16; TEMP 35.9; O2SAT 98
--- NOTE | 2022-11-11 16:21 | NURSING ---
Addendum entered by Dora Grider 11/11/22 17:16: Dr. Reyes in to remove PICC to [facility]. PICC removed tip intact and Trimmed at 45cm. Dressing applied. Original Note: This nurse went to pull PICC line per order. During PICC line removal met resistance repositioned arm and still met resistance. Applied Sterile Dressing and will update Dr. Reyes.
[2022-11-11] MEDS: Tamsulosin HCl 0.4 MG Capsule PO (17:28)
[2022-11-11] MEDS: traMADol 50 MG Tablet PO (20:11)
[2022-11-11] MEDS: Gabapentin 300 MG Capsule PO (20:15)
[2022-11-11 20:17] VITALS: PULSE 108; RESP 18; O2SAT 97
[2022-11-12] MEDS: traMADol 50 MG Tablet PO ×2 (03:45→09:51)
[2022-11-12 05:20] VITALS: BP 103/65; PULSE 91
[2022-11-12] MEDS: Gabapentin 100 MG Capsule PO (05:20)
[2022-11-12] MEDS: Polyethylene Glycol 3350 17 GM PACKET PO (05:20)
[2022-11-12] MEDS: Metoprolol(XL)Succ 25 MG Tablet PO (05:20)
[2022-11-12] MEDS: Levothyroxine 100 MCG Tablet 200 MCG PO (05:21)
[2022-11-12] MEDS: busPIRone 5 MG Tablet 7.5 MG PO (05:21)
[2022-11-12] MEDS: Senna/Docusate Sodium 1 Tablet 2 TABLET PO (05:22)
[2022-11-12] MEDS: Hydroxyurea 500 MG Capsule PO (05:22)
[2022-11-12] MEDS: Menthol/Lanolin/Calamine/Znox 113 GM Tube 1 APPLIC TOPICAL (05:22)
[2022-11-12 06:50] LABS: Bedside Glucose 120 mg/dL (74-106)
[2022-11-12 09:00] VITALS: PULSE 84; RESP 16; O2SAT 98
[2022-11-12] MEDS: Juven (unflavored) Packet 1 PACKET PO (09:01)
[2022-11-12] MEDS: glipiZIDE XL 5 MG Tablet PO (09:02)
[2022-11-12] MEDS: Potassium Chloride Oral Tablet 20 MEQ PO (09:02)
[2022-11-12] MEDS: metFORMIN HCl 500 MG Tablet PO (09:02)
[2022-11-12] MEDS: Aspirin 81 MG TAB.CHEW PO (09:03)
[2022-11-12 10:37] VITALS: BP 102/63; PULSE 84; RESP 16; TEMP 36.1; O2SAT 98
== END 2022-11-12 10:15 | disposition home health service (06) | DRG 637 ==
PROVIDERS: Internal Medicine Infectious Disease; Admitting Provider Family Medicine Geriatric Medicine; PCP Internal Medicine; Visit Provider Family Medicine Geriatric Medicine
DX: E11.69 Type 2 diabetes mellitus with other specified complication (principal); K68.12 Psoas muscle abscess; R78.81 Bacteremia; L02.31 Cutaneous abscess of buttock; M86.8X5 Other osteomyelitis, thigh; E11.40 Type 2 diabetes mellitus with diabetic neuropathy, unspecified; D45 Polycythemia vera; E03.9 Hypothyroidism, unspecified; B95.62 Methicillin resistant Staphylococcus aureus infection as the cause of diseases classified elsewhere; J44.9 Chronic obstructive pulmonary disease, unspecified; E78.5 Hyperlipidemia, unspecified; I25.10 Atherosclerotic heart disease of native coronary artery without angina pectoris; I10 Essential (primary) hypertension; F41.9 Anxiety disorder, unspecified; E87.6 Hypokalemia; Z79.02 Long term (current) use of antithrombotics/antiplatelets; Z79.84 Long term (current) use of oral hypoglycemic drugs; Z79.82 Long term (current) use of aspirin; Z79.52 Long term (current) use of systemic steroids; Z87.891 Personal history of nicotine dependence; Z95.5 Presence of coronary angioplasty implant and graft; Z79.899 Other long term (current) 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; M99.02 Segmental and somatic dysfunction of thoracic region; M99.03 Segmental and somatic dysfunction of lumbar region; M99.01 Segmental and somatic dysfunction of cervical region; M99.05 Segmental and somatic dysfunction of pelvic region; N40.0 Benign prostatic hyperplasia without lower urinary tract symptoms; Z23 Encounter for immunization
CPT/HCPCS: 36415; 71045; 72170; 80048; 80053; 80076; 82550; 82962; 84443; 85025; 86140; 87070; 87077; 87186; 87205; 87426; 87493; 87640; 87811; 94762; 97110; 97116; 97162; 97165; 97530; 97535; 97802; G0008; J0878; J7050; 90686; A4216; J3490

== ENCOUNTER → 2022-12-26 | Outpatient (CLI) | payer MEDICARE, BC, SELFPAY ==
[2022-12-26 12:59] LABS: Anion Gap 7 (5-15); BUN 23 mg/dL (7-18); BUN/Creat Ratio 21.1 RATIO (10-20); Calcium,Total 9.6 mg/dL (8.5-10.1); Chloride 104 mmol/L (98-107); Creatinine, Serum 1.09 mg/dL (0.70-1.30); EST Glomerular Filtration Rate 71 mL/min (>60); Est Glom Filt Rate - Afr Amer 86 mL/min (>60); Glucose 100 mg/dL (74-106); Potassium 4.3 mmol/L (3.5-5.1); Sodium Level 137 mmol/L (136-145)
== END | disposition home or self-care (01) ==
LOC: BIMLAB 10:21
PROVIDERS: PCP Internal Medicine; Visit Provider Internal Medicine Cardiovascular Disease
DX: R06.09 Other forms of dyspnea (principal); R60.9 Edema, unspecified
CPT/HCPCS: 36415; 80048

== ENCOUNTER 2023-01-30 12:43 | Outpatient (CLI) | payer MEDICARE, BC, SELFPAY ==
--- NOTE | 2023-01-30 12:47 | RAD_ITS ---
STUDY: X-RAY - RIGHT ELBOW REASON FOR EXAM: Male, 68 years old. ELBOW ULCER TECHNIQUE: 3 view(s) of the elbow. COMPARISON: None. FINDINGS: Normal visualized humerus, radius and ulna. There is degenerative arthrosis of the radiocapitellar and ulnotrochlear articulations. There is posterior soft tissue swelling with focal air. RAD/Elbow min 3 Views IMPRESSION: Posterior soft tissue swelling with subcutaneous air consistent with infection. Arthritic change. Electronically Signed: Brendan Walker MD at 23:02 EDT ,
[2023-01-30 15:50] LABS: Uric Acid 7.7 mg/dL (3.5-7.2)
[2023-02-03 13:19] LABS: Free T3 1.9 pg/mL (2.18-3.98); T4 Free Direct 1.18 ng/dL (0.76-1.46); Thyroid Stim Hormone (TSH) 1.82 uIU/mL (0.358-3.74)
== END 2023-01-30 23:59 | disposition home or self-care (01) ==
LOC: MTLAB 12:45
PROVIDERS: PCP Internal Medicine; Referring Provider Internal Medicine; Visit Provider Internal Medicine
DX: E11.622 Type 2 diabetes mellitus with other skin ulcer (principal); L89.013 Pressure ulcer of right elbow, stage 3
CPT/HCPCS: 11042; 36415; 73080; 84439; 84443; 84481; 84550; 99213; G0463

== ENCOUNTER 2023-02-20 08:30 | Outpatient (RCR) | payer MEDICARE, BC, SELFPAY ==
[2023-01-30 09:28] VITALS: BP 127/62; PULSE 71; RESP 16; TEMP 36.6; BMI 34.9
--- NOTE | 2023-01-30 10:58 | HP.PCM_ITS ---
History of Present Illness Date of Service: 01/30/23 Chief Complaint: Right Elbow Ulcer History of Wound: Mr. Sarabia is a 68-year-old who was referred to the wound center due to nonhealing right elbow ulcer. Initially started in 2013. An area of swelling on his right elbow which subsequently opened up. Was seen at the wound center then, had imaging but he is not sure what exactly the imaging showed. Did not see Ortho surgeon, no known history of gout. Recent opening noted 6 months ago following a fall and has not healed since then. Previously, with reopening he had been able to manage it at home by himself. Occasional draining from the site but not significant. On chronic antibiotic for MRSA hip infection. History of Type 2 DM which is well controlled. Most recent A1C said to be 5. He feels well otherwise and has no acute concerns. [facility] Medical History (Updated 01/30/23 @ 11:[address] Jyoti Frost MD) Anemia Asthma Atherosclerotic heart disease of [place] coronary artery without angina pectoris Back pain Benign prostatic hypertrophy COPD (chronic obstructive pulmonary disease) DDD (degenerative disc disease), cervical Decubitus ulcer of right elbow, stage 3 Degeneration of intervertebral disc of lumbar region Degenerative disc disease, cervical Depression Diabetes CLARK (dyspnea on exertion) Essential (primary) hypertension Hearing difficulty of both ears History of renal cell cancer Hyperlipidemia Hypothyroidism Instability of medial collateral ligament of knee Kidney disease Lesion of sciatic nerve Lung disease Meniscus degeneration Nephrolithiasis Obesity Obstructive sleep apnea Osteoarthritis, knee 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 Over 63 years old Palpitations Polycythemia Precordial chest pain Pulmonary embolism (06/21/18) Restless legs syndrome Right elbow pain Right knee pain Rupture of right biceps tendon Sciatica Scoliosis of thoracic spine Secondary polycythemia Segmental and somatic dysfunction of cervical region Segmental and somatic dysfunction of cervical region Segmental and somatic dysfunction of lumbar region Segmental and somatic dysfunction of lumbar region Segmental and somatic dysfunction of pelvic region Segmental and somatic dysfunction of thoracic region Segmental and somatic dysfunction of thoracic region Shortness of breath Thyroid disease Tinnitus of both ears Trochanteric bursitis, left hip Type II diabetes mellitus Home Medications aspirin 81 mg chewable tablet 81 mg PO DAILY@0800 ANTIPLATELET 03/17/16 [History Last Taken 09/12/22] hydroxyurea 500 mg capsule 500 mg PO DAILY Ask Dr 12/17/18 [History Last Taken 09/12/22] gabapentin 100 mg capsule 100 mg PO 0600,1300 Neuropathy 09/13/22 [History Last Taken 09/12/22] gabapentin 100 mg tablet 300 mg PO QHS Neuropathy 10/05/22 [History Last Taken Unknown] glipizide 5 mg tablet, extended release 24 hr 5 mg PO DAILY DM 10/05/22 [History Last Taken Unknown] simethicone 80 mg chewable tablet 80 mg PO TIDPC 30 days #90 tabs 11/07/22 [Rx Last Taken Unknown] tramadol 50 mg tablet 50 mg PO Q6H PRN PRN Pain Score 4-5 7 days #28 tabs 11/07/22 [Rx Last Taken Unknown] metoprolol succinate 25 mg tablet,extended release 24 hr 25 mg PO DAILY BLOOD PRESSURE #90 tabs 11/18/22 [Rx Last Taken Unknown] furosemide 40 mg tablet 40 mg PO DAILY #90 tabs 12/12/22 [Rx Last Taken Unknown] metformin 500 mg tablet 500 mg PO BIDCM 30 days #180 tabs 01/01/23 [Rx Last Taken Unknown] tamsulosin 0.4 mg capsule 0.4 mg PO QHS #90 caps 01/13/23 [Rx Last Taken Unknown] trazodone 50 mg tablet 50 mg PO QHS PRN insomnia #60 tabs 01/13/23 [Rx Last Taken Unknown] buspirone 5 mg tablet 5 mg PO BID 01/30/23 [History Last Taken Unknown] doxycycline monohydrate 100 mg capsule 100 mg PO BID 01/30/23 [History Last Taken Unknown] levothyroxine 100 mcg tablet 100 mcg PO BID 01/30/23 [History Last Taken Unknown] Allergy/AdvReac Type Severity Reaction Status Date / Time sitagliptin [From ] Allergy Severe Rash Verified 12/16/22 11:19 theophylline Allergy Other Verified 01/30/23 09:40 chocolate flavor AdvReac Shortness Verified 12/16/22 11:19 of breath milk AdvReac Shortness Verified 12/16/22 11:19 of breath Family History Mother CAD (coronary artery disease) Breast cancer Diabetes Surgical History H/O lithotripsy History of coronary artery stent placement (05/24/11) History of left heart catheterization (06/19/18) History of partial nephrectomy History of tonsillectomy Hx of cataract surgery L eye surgery partial nephrectomy for renal cell cancer Social History household members: spouse Smoking Status: Never smoker how long ago did patient quit smokin, 1.5/d second hand exposure: Yes alcohol intake: never substance use type: does not use ROS Constitutional Constitutional: Denies chills or fever(s) ENT HEENT: Denies headache(s), nasal congestion or nasal discharge Cardiovascular Cardiovascular: Denies chest pain or palpitations Respiratory/Chest Respiratory/Chest: Denies cough, excessive phlegm production or shortness of breath with exertion Gastrointestinal Gastrointestinal: Denies abdominal pain, nausea or vomiting Genitourinary Genitourinary: Denies dysuria Musculoskeletal Musculoskeletal: Denies joint pain or joint swelling Integumentary Integumentary: Denies rash Neurologic Neurologic: Denies focal weakness, numbness or tingling Psychiatric Psychiatric: Denies anxiety, auditory hallucinations, depression, homicidal ideation or suicidal ideation Vital Signs Vital Signs Vital Signs: 01/30/23 09:28 Temperature 98 F Temperature Source Temporal Pulse Rate 71 Respiratory Rate 16 Blood Pressure 127/62 H Blood Pressure Mean 83 Blood Pressure Source Monitor Blood Pressure Position Sitting Blood Pressure Location Left Arm Oxygen Delivery Method Room Air Weight Weight: 230 lb Body Mass Index (BMI) 34.9 Physical Exam Const alert, oriented x3 and no apparent distress General Appearance: cooperative and comfortable HEENT normocephalic and head/scalp atraumatic Eyes EOMs intact bilaterally Neck full ROM and supple General: normal visual inspection Resp normal respiratory effort Effort and Inspection: able to speak in complete sentences Skin Wounds: wounds noted Neuro oriented x3, CN's II-XII intact bilaterally, moves all extremities and no focal motor deficits Psych mental status grossly normal, thought process normal, cooperative and affect normal Debridement Note Debridement Note Wound debrided: Right Elbow Type of Debridement: Excisional debridement Anesthesia Used: 4% Lidocaine Solution Depth: Down to and including healthy tissue and in the subcutaneous layer Percentage of wound debrided: 100 Instrument Used: 3mm curette Severity: Fat Layer Exposed Amount of bleeding with debridement: Mild Bleeding Controlled with: Pressure Patient tolerated procedure: Patient tolerated procedure well Post-Debridement Measurements and Additional Note: Post-Debridement Measurements/Treatment WC - Nurse 1 - General Ulcer Assessment Start: 01/30/23 09:21 Freq: Status: Active Protocol: YOLANDA Activity Type Activity Date Activity User E-sign Co-sign Detail Recorded Client Recorded Date Recorded By Document 01/30/23 09:28 [facility] [id number] 01/30/23 09:39 [facility] 01/30/23 09:28 - Today's Visit Information Type of service Initial Visit Arrival Mode Ambulatory,Cane Transfer Assistance None Patient Identification Verified (Name & Yes ) Patient Requires Transmission-Based No Precautions Height and Weight Height 5 ft 8 in Weight 230 lb Weight in Pounds 230.0 lbs Weight Measurement Method Estimated by Patient Body Mass Index (BMI) 34.9 BMI Classification Obese BSA - Art 2.17 Vital Signs Temperature (97.8 F-99.1 F) 98 F Temperature Source Temporal Pulse Rate (60-100) 71 Pulse Location Monitor Respiratory Rate (12-18) 16 Respiratory rate source Observation Oxygen Delivery Method Room Air Blood Pressure (90/60-120/80) 127/62 H Blood Pressure Mean 83 Source Monitor Position Sitting Blood Pressure Location Left Arm Pain Scale: 0-10 Numeric Is Patient Pain Free? Yes Communication Assessment Preferred language Chinese Section Leader And Machine Setter Required No Able to Read Yes Able to Write Yes Communication Tools None Right Hearing Abillity Hard of Hearing ,Use of Hearing Aid Left Hearing Abillity Hard of Hearing ,Use of Hearing Aid Visual Assistive Devices Glasses Teaching Assessment Preferences Verbal,Written, Audio/Visual, Demonstration Barriers to Learning None Readiness To Learn Excellent Willingness to Engage in Self Management High Activies Readiness to Engage in Self Management High Activities Anxiety Level Calm Cooperation Cooperative Perception Coherent Interest in Health Problem Asks Questions Education Importance Acknowledges Need Does Patient Smoke tobacco or other No substances Smoking Status Never smoker Is Patient Diabetic Yes Functional Assessment Recent Decline in Ability to Perform Denies Any Declines Culture/Sabianist/Manager Diversity Cultural/Sabianist Needs that may affect No Treatment Plan Teaching: Wound Center *Welcome to the Wound Center -Person Taught Patient -Teaching Method Discussion -Response to teaching Verbalize understanding Welcome to the Wound Care Center Chinese - Nurse 1 - General Ulcer Measurement Start: 01/30/23 09:21 Freq: Status: Active Protocol: Activity Type Activity Date Activity User E-sign Co-sign Detail Recorded Client Recorded Date Recorded By Document 01/30/23 09:28 [facility] [id number] 01/30/23 09:39 [facility] 01/30/23 09:28 Wound Center Nurse 1 #1- R ELBOW -Combined with other wound No -Current Size (cm) - Length 0.3 -Current Size (cm) - Width 0.2 -Current Size (cm) - Depth 0.4 -Total Square Cm 0.06 -Date of Last Picture (Recall this 01/30/23 field) -Photo Taken Yes -Epithelialization None Present -Tunneling Yes -Tunneling Position (O'clock) 12 -Tunneling Distance (cm) 0.9 -Undermining/Tunneling No -Circular Undermining No -Exudate Amt Medium -Exudate Type Serous -Wound Margin Distinct, Outline Attached -Granulation Amt Small (1-33%) -Granulation Quality [place] -Slough/Fibrin Yes -Necrosis Amt Large (67-100%) -Necrotic Tissue Type Adherent Slough -Texture (Nyasia-wound Skin Appearance) Assessed, Localized Edema ,Scarring -Moisture (Nyasia-wound Skin Appearance) Assessed -Color (Nyasia-wound Skin Appearance) Assessed, Erythema -Temperature (Nyasia-wound Skin No Abnormality Appearance) (Pt Warm) -Tenderness on Palpation (Nyasia-wound No Skin Appearance) -Ulcer Cleansing Rinsed/ Irrigated with Saline -Foul Odor after Cleansing No -Anesthetic Used 5% Lidocaine Gel WC - Nurse 2 - General Ulcer CM Notes Start: 01/30/23 09:21 Freq: Status: Active Protocol: Activity Type Activity Date Activity User E-sign Co-sign Detail Recorded Client Recorded Date Recorded By Document 01/30/23 10:22 MW [id number] 01/30/23 10:33 MW 01/30/23 10:22 Wound Center Nurse 2 -Time 10:22 -Correct Patient Yes -Correct Side, Site, Position Yes -Correct Procedure Yes -Procedure Performed Yes -Type of Procedure Debridement -Clinical Debridement Subcutaneous -Tissue Removed Subcutaneous -Post Debridement (cm) - Length 0.4 -Post Debridement (cm) - Width 0.3 -Post Debridement (cm) - Depth 0.9 -Total Square (Post) (cm) 0.12 -Area of Debridement (cm) - Length 0.4 -Area of Debridement (cm) - Width 0.3 -Total Square (Area) (cm) 0.12 -Tunneling Yes -Tunneling Position (O'clock) 12 -Tunneling Distance (cm) 2.0 -Undermining/Tunneling No -Circular Undermining Yes -Wound/Ulcer Outcome Not Healed -Ulcer Cleansing Rinsed/ Irrigated with Saline -Foul Odor after Cleansing No -Bioengineered Tissue No -Bleeding Controlled with Pressure -Treatment Response Procedure Tolerated Well -Offloading No -Debridement - Subq, 1st 20sq cm Yes Pain Scale: 0-10 Numeric Is Patient Pain Free? Yes WC - Nurse 3 - General Ulcer D/C NN Start: 01/30/23 09:21 Freq: Status: Active Protocol: Activity Type Activity Date Activity User E-sign Co-sign Detail Recorded Client Recorded Date Recorded By Document 01/30/23 10:37 MW [id number] 01/30/23 10:50 MW 01/30/23 10:37 Wound Care Center Nurse 3 #1- R ELBOW -Ulcer Cleansing Rinsed/ Irrigated with Saline -Foul Odor after Cleansing No -Negative Pressure Wound Therapy N/A -Primary Dressing Applied Nugauze, Iodoform, Mepilex Border -Mepilex Border 2 -Nugauze, Iodoform / 1 Treatment Response Procedure Tolerated Well Pain Scale: 0-10 Numeric Is Patient Pain Free? Yes Teaching: Wound Center Dressing Your Wound -Person Taught Patient -Teaching Method Discussion -Response to teaching Verbalize understanding WC - Visit Discharge Discharge Condition Stable Ambulatory Status Ambulatory Transportation Private Auto Accompanied by self Medication Reconcilliation completed & No provided to patient/care provider Clinical Summary of Care Provided Yes Charges/Coding Multi Select Codes Visit Charges Office Visit/Consults: 95369 OV L3 Est Integumentary Integumentary CPT Codes: 42400 Rosi bone 20 sq cm/< Assessment/Plan Assessment/Plan (1) Decubitus ulcer of right elbow, stage 3: CODE(S): L89.013 - Pressure ulcer of right elbow, stage 3 (2) Type II diabetes mellitus: CODE(S): E11.9 - Type 2 diabetes mellitus without complications PLAN: Plan Recurrent right elbow ulcer. Current episode symptoms started 6 months ago. Initial episode was in 2013. Walked at the lab and had a lot of pressure to his elbows. No known history of gout. Does not report any history of olecranon bursitis, was not seen by Ortho. Typically, closures happened within a couple months but he states that this has taken longer. Has been on chronic antibiotics for his right hip MRSA infection. He states that diabetes is well controlled and he feels well overall. Debridement done as documented above, procedure was well-tolerated. X-ray ordered. Uric acid level also ordered. He may be 1 to benefit from surgical debridement, consider referral to Ortho but in the meantime, iodoform packing daily. Cover with foam dressing. Optimal pro tein intake and diabetes control. Avoid consistent pressure to the right elbow. Questions were answered and he was advised to call with any further questions or concerns. Follow-up in a week or sooner if needed. This note was generated with [employer] dictation software. It may contain incorrect words, spelling, and punctuation that were not noted in checking the note before signing.
[2023-01-31 13:20] VITALS: BP 148/68; PULSE 70; RESP 18; TEMP 36.4; BMI 34.9
[2023-02-06 09:29] VITALS: BP 149/71; PULSE 71; RESP 18; TEMP 36.1; BMI 34.9
--- NOTE | 2023-02-06 12:59 | PCM.WC.PN ---
History of Present Illness Date of Service: 02/06/23 Chief Complaint: Right Elbow Ulcer History of Wound: Mr. Sarabia is a 68-year-old who was referred to the wound center due to nonhealing right elbow ulcer. Initially started in 2013. An area of swelling on his right elbow which subsequently opened up. Was seen at the wound center then, had imaging but he is not sure what exactly the imaging showed. Did not see Ortho surgeon, no known history of gout. Recent opening noted 6 months ago following a fall and has not healed since then. Previously, with reopening he had been able to manage it at home by himself. Occasional draining from the site but not significant. On chronic antibiotic for MRSA hip infection. History of Type 2 DM which is well controlled. Most recent A1C said to be 5. He feels well otherwise and has no acute concerns. Progress of Wound: No new concerns at this time. has been doing dressing changes as recommended. Objective Data Objective Data Vital Signs: Vital Signs Temp Pulse Resp BP O2 Del Method 97 F L 71 18 149/71 H Room Air 02/06/23 09:29 02/06/23 09:29 02/06/23 09:29 02/06/23 09:29 01/30/23 09:28 Oxygen Delivery Method Room Air Weight: 230 lb Body Mass Index (BMI) 34.9 Charges/Coding Procedures Integumentary 111xxx-113xx: [id number] Rosi subq tissue 20 sq cm/< Physical Exam Const alert, oriented x3 and no apparent distress General Appearance: cooperative and comfortable HEENT normocephalic and head/scalp atraumatic Eyes EOMs intact bilaterally Neck full ROM and supple General: normal visual inspection Resp normal respiratory effort Effort and Inspection: able to speak in complete sentences Skin Wounds: wounds noted Neuro oriented x3, CN's II-XII intact bilaterally, moves all extremities and no focal motor deficits Psych mental status grossly normal, thought process normal, cooperative and affect normal Debridement Note Debridement Note Wound debrided: Right Elbow Type of Debridement: Excisional debridement Anesthesia Used: 4% Lidocaine Solution Depth: Down to and including healthy tissue and in the subcutaneous layer Percentage of wound debrided: 100 Instrument Used: - (1mm) Severity: Fat Layer Exposed Amount of bleeding with debridement: Mild Bleeding Controlled with: Pressure Patient tolerated procedure: Patient tolerated procedure well Post-Debridement Measurements and Additional Note: Post-Debridement Measurements/Treatment WC - Nurse 1 - General Ulcer Assessment Start: 01/30/23 09:21 Freq: Status: Active Protocol: YOLANDA Activity Type Activity Date Activity User E-sign Co-sign Detail Recorded Client Recorded Date Recorded By Document 01/30/23 09:28 [facility] [id number] 01/30/23 09:39 BM Document 01/31/23 13:20 JF [id number] 01/31/23 13:28 JF Document 02/06/23 09:29 RB [id number] 02/06/23 09:31 RB 01/30/23 01/31/23 02/06/23 09:28 13:20 09:29 WC - Today's Visit Information Type of service Initial Visit Nurse-only Follow-up Visit Visit (Physician/LIGHT BULB TESTER ) Arrival Mode Ambulatory,Cane Ambulatory Ambulatory Transfer Assistance None None Patient Identification Verified (Name & Yes Yes Yes ) Patient Requires Transmission-Based No No No Precautions Height and Weight Height 5 ft 8 in Weight 230 lb Weight in Pounds 230.0 lbs Weight Measurement Method Estimated by Patient Body Mass Index (BMI) 34.9 34.9 34.9 BMI Classification Obese Obese Obese BSA - Art 2.17 Vital Signs Temperature (97.8 F-99.1 F) 98 F 97.6 F L 97 F L Temperature Source Temporal Temporal Temporal Pulse Rate (60-100) 71 70 71 Pulse Location Monitor Monitor Monitor Respiratory Rate (12-18) 16 18 18 Respiratory rate source Observation Observation Observation Oxygen Delivery Method Room Air Blood Pressure (90/60-120/80) 127/62 H 148/68 H 149/71 H Blood Pressure Mean (mm Hg) 83 94 97 Source Monitor Monitor Monitor Position Sitting Semi-Fowlers Semi-Fowlers Blood Pressure Location Left Arm Left Arm Left Arm History Since Last Visit- (Skip if this is Patient's initial visit) Have you changed medications since your No last visit? Any new allergies or adverse reactions No Had a fall/change in ADL's that may No increase risk of falls Signs or symptoms of abuse and/or No neglect since last visit Have you been in the hospital since your No last visit? Has dressing in place as prescribed Yes Has compression in place as prescribed No Has offloadiing in place as prescribed No Experienced any changes in pain level or No management Left Footwear Regular Shoe Right Footwear Regular Shoe Pain Scale: 0-10 Numeric Is Patient Pain Free? Yes Yes Yes Communication Assessment Preferred language German Strap Setter Required No Able to Read Yes Able to Write Yes Communication Tools None Right Hearing Abillity Hard of Hearing ,Use of Hearing Aid Left Hearing Abillity Hard of Hearing ,Use of Hearing Aid Visual Assistive Devices Glasses Teaching Assessment Preferences Verbal,Written, Audio/Visual, Demonstration Barriers to Learning None Readiness To Learn Excellent Willingness to Engage in Self Management High Activies Readiness to Engage in Self Management High Activities Anxiety Level Calm Cooperation Cooperative Perception Coherent Interest in Health Problem Asks Questions Education Importance Acknowledges Need Does Patient Smoke tobacco or other No substances Smoking Status Never smoker Is Patient Diabetic Yes Functional Assessment Recent Decline in Ability to Perform Denies Any Declines Culture/Protestant/Behavioral Health Associate Cultural/Protestant Needs that may affect No Treatment Plan Teaching: Wound Center *Welcome to the Wound Center -Person Taught Patient -Teaching Method Discussion -Response to teaching Verbalize understanding Welcome to the Wound Care Center English PEREZ - Nurse 1 - General Ulcer Measurement Start: 01/30/23 09:21 Freq: Status: Active Protocol: Activity Type Activity Date Activity User E-sign Co-sign Detail Recorded Client Recorded Date Recorded By Document 01/30/23 09:28 [facility] [id number] 01/30/23 09:39 [facility] Document 01/31/23 13:20 [id number] 01/31/23 13:28 Document 02/06/23 09:29 RB [id number] 02/06/23 09:31 RB 01/30/23 01/31/23 02/06/23 09:28 13:20 09:29 Wound Center Nurse 1 #1- R ELBOW -Combined with other wound No No No -Current Size (cm) - Length 0.3 0.2 -Current Size (cm) - Width 0.2 0.2 -Current Size (cm) - Depth 0.4 0.4 -Total Square Cm 0.06 0.04 -Date of Last Picture (Recall this 01/30/23 field) -Photo Taken Yes No Yes -Epithelialization None Present None Present -Tunneling Yes No -Tunneling Position (O'clock) 12 -Tunneling Distance (cm) 0.9 -Undermining/Tunneling No Yes -Undermining/Tunneling Starts (O'clock 12 ) -Undermining/Tunneling Ends (O'clock) 12 -Maximum Distance (cm) 0.4 -Circular Undermining No No -Exudate Amt Medium Medium Medium -Exudate Type Serous Serosanguineous Serosanguineous -Wound Margin Distinct, Flat & Intact Thickened & Outline Rolled Under Attached -Granulation Amt Small (1-33%) Medium (34-66%) -Granulation Quality [place] -Slough/Fibrin Yes Yes -Necrosis Amt Large (67-100%) Medium (34-66%) -Necrotic Tissue Type Adherent Slough Adherent Slough -Structure Exposed N/A -Texture (Nyasia-wound Skin Appearance) Assessed, Assessed, Localized Edema Localized Edema ,Scarring -Moisture (Nyasia-wound Skin Appearance) Assessed Assessed -Color (Nyasia-wound Skin Appearance) Assessed, Assessed Erythema -Temperature (Nyasia-wound Skin No Abnormality No Abnormality Appearance) (Pt Warm) (Pt Warm) -Tenderness on Palpation (Nyasia-wound No No Skin Appearance) -Ulcer Cleansing Rinsed/ Soap and Water Wound Cleanser Irrigated with Saline -Foul Odor after Cleansing No No No -Anesthetic Used 5% Lidocaine 5% Lidocaine Gel Gel Lower Limb Edema Present NA WC - Nurse 2 - General Ulcer CM Notes Start: 01/30/23 09:21 Freq: Status: Active Protocol: Activity Type Activity Date Activity User E-sign Co-sign Detail Recorded Client Recorded Date Recorded By Document 01/30/23 10:22 MW [id number] 01/30/23 10:33 MW Document 02/06/23 09:56 MW [id number] 02/06/23 10:01 MW 01/30/23 02/06/23 10:22 09:56 Wound Center Nurse 2 #1- R ELBOW -Time 10:22 09:57 -Correct Patient Yes Yes -Correct Side, Site, Position Yes Yes -Correct Procedure Yes Yes -Procedure Performed Yes Yes -Type of Procedure Debridement Debridement -Clinical Debridement Subcutaneous Subcutaneous -Tissue Removed Subcutaneous Subcutaneous -Post Debridement (cm) - Length 0.4 0.1 -Post Debridement (cm) - Width 0.3 0.2 -Post Debridement (cm) - Depth 0.9 0.8 -Total Square (Post) (cm) 0.12 0.02 -Area of Debridement (cm) - Length 0.4 0.1 -Area of Debridement (cm) - Width 0.3 0.2 -Total Square (Area) (cm) 0.12 0.02 -Tunneling Yes Yes -Tunneling Position (O'clock) 12 12 -Tunneling Distance (cm) 2.0 1.5 -Undermining/Tunneling No No -Circular Undermining Yes Yes -Wound/Ulcer Outcome Not Healed Not Healed -Ulcer Cleansing Rinsed/ Rinsed/ Irrigated with Irrigated with Saline Saline -Foul Odor after Cleansing No No -Bioengineered Tissue No No -Bleeding Controlled with Pressure Pressure -Treatment Response Procedure Procedure Tolerated Well Tolerated Well -Offloading No No -Debridement - Subq, 1st 20sq cm Yes Yes Pain Scale: 0-10 Numeric Is Patient Pain Free? Yes Yes WC - Nurse 3 - General Ulcer D/C NN Start: 01/30/23 09:21 Freq: Status: Active Protocol: Activity Type Activity Date Activity User E-sign Co-sign Detail Recorded Client Recorded Date Recorded By Document 01/30/23 10:37 MW [id number] 01/30/23 10:50 MW Document 01/31/23 13:20 [id number] 01/31/23 13:28 01/30/23 01/31/23 10:37 13:20 Wound Care Center Nurse 3 #1- R ELBOW -Ulcer Cleansing Rinsed/ Rinsed/ Irrigated with Irrigated with Saline Saline -Foul Odor after Cleansing No No -Negative Pressure Wound Therapy N/A -Primary Dressing Applied Nugauze, Mepilex Border Iodoform, Mepilex Border -Other Dressing iodoform packing -Mepilex Border 2 1 -Nugauze, Iodoform / 1 Treatment Response Procedure Tolerated Well Vital Signs Temperature (97.8 F-99.1 F) 97.6 F L Temperature Source Temporal Pulse Rate (60-100) 70 Pulse Location Monitor Respiratory Rate (12-18) 18 Respiratory rate source Observation Blood Pressure (90/60-120/80) 148/68 H Blood Pressure Mean (mm Hg) 94 Source Monitor Position Semi-Fowlers Blood Pressure Location Left Arm Pain Scale: 0-10 Numeric Is Patient Pain Free? Yes Yes Teaching: Wound Center Dressing Your Wound -Person Taught Patient -Teaching Method Discussion -Response to teaching Verbalize understanding WC - Visit Discharge Discharge Condition Stable Stable Ambulatory Status Ambulatory Ambulatory Transportation Private Auto Private Auto Accompanied by self Medication Reconcilliation completed & No No provided to patient/care provider Clinical Summary of Care Provided Yes No Assessment/Plan Assessment/Plan (1) Decubitus ulcer of right elbow, stage 3: CODE(S): L89.013 - Pressure ulcer of right elbow, stage 3 (2) Type II diabetes mellitus: CODE(S): E11.9 - Type 2 diabetes mellitus without complications PLAN: Plan Debridement done as documented above, procedure was well-tolerated. X-ray reviewed, there is concern for soft tissue infection. 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 Cultures taken , will review. Continue Doxycycline for now. Over the years he has had recurrent/spontaneous opening of this area. Now appears to be healing again which is good however due to history of recurrent opening, I believe he should get evaluated by Ortho. For now, due to difficulty with packing from healing, will switch to Promogran. Change daily, cover with foam dressing. Optimal protein intake and diabetes control. Avoid consistent pressure to the right elbow. His questions were answered and he was advised to call with any further questions or concerns. Follow-up in a week or sooner if needed. This note was generated with [employer] dictation software. It may contain incorrect words, spelling, and punctuation that were not noted in checking the note before signing.
[2023-02-13 11:47] VITALS: BP 136/75; PULSE 72; RESP 16; TEMP 35.7; BMI 34.9
--- NOTE | 2023-02-13 12:52 | PN.PCM_ITS ---
History of Present Illness Date of Service: 02/13/23 Chief Complaint: Right Elbow Ulcer History of Wound: Mr. Sarabia is a 68-year-old who was referred to the wound center due to nonhealing right elbow ulcer. Initially started in 2013. An area of swelling on his right elbow which subsequently opened up. Was seen at the wound center then, had imaging but he is not sure what exactly the imaging showed. Did not see Ortho surgeon, no known history of gout. Recent opening noted 6 months ago following a fall and has not healed since then. Previously, with reopening he had been able to manage it at home by himself. Occasional draining from the site but not significant. On chronic antibiotic for MRSA hip infection. History of Type 2 DM which is well controlled. Most recent A1C said to be 5. He feels well otherwise and has no acute concerns. Progress of Wound: Some worsening noted. Has been applying Promogran daily. No significant pain or drainage. Culture with no significant growth. Objective Data Objective Data Vital Signs: Vital Signs Temp Pulse Resp BP O2 Del Method 96.3 F L 72 16 136/75 H Room Air 02/13/23 11:47 02/13/23 11:47 02/13/23 11:47 02/13/23 11:47 02/13/23 11:47 Oxygen Delivery Method Room Air Weight: 230 lb Body Mass Index (BMI) 34.9 Lab / Micro Data Micro: Microbiology 02/06/23 10:00 Wound Abcess - Elbow Gram Stain - Final 02/06/23 10:00 Wound Abcess - Elbow Wound Culture - Final Staphylococcus epidermidis 02/06/23 10:00 Wound Abcess - Elbow Anaerobic Culture - Final No anaerobic bacteria isolated. Charges/Coding Procedures Integumentary [id number]: [id number] Rosi subq tissue 20 sq cm/< Physical Exam Const alert, oriented x3 and no apparent distress General Appearance: cooperative and comfortable HEENT normocephalic and head/scalp atraumatic Eyes EOMs intact bilaterally Neck full ROM and supple General: normal visual inspection Resp normal respiratory effort Effort and Inspection: able to speak in complete sentences Skin Wounds: wounds noted Neuro oriented x3, CN's II-XII intact bilaterally, moves all extremities and no focal motor deficits Psych mental status grossly normal, thought process normal, cooperative and affect normal Debridement Note Debridement Note Wound debrided: Right Elbow Type of Debridement: Excisional debridement Anesthesia Used: 4% Lidocaine Solution Depth: Down to and including healthy tissue and in the subcutaneous layer Percentage of wound debrided: 100 Instrument Used: 3mm curette Severity: Fat Layer Exposed Amount of bleeding with debridement: Mild Bleeding Controlled with: Pressure Patient tolerated procedure: Patient tolerated procedure well Post-Debridement Measurements and Additional Note: Post-Debridement Measurements/Treatment - Nurse 1 - General Ulcer Assessment Start: 01/30/23 09:21 Freq: Status: Active Protocol: YOLANDA Activity Type Activity Date Activity User E-sign Co-sign Detail Recorded Client Recorded Date Recorded By Document 01/30/23 09:28 [facility] [id number] 01/30/23 09:39 BM Document 01/31/23 13:20 JF [id number] 01/31/23 13:28 JF Document 02/06/23 09:29 RB [id number] 02/06/23 09:31 RB Document 02/13/23 11:47 [facility] [id number] 02/13/23 11:52 [facility] 01/30/23 01/31/23 02/06/23 09:28 13:20 09:29 - Today's Visit Information Type of service Initial Visit Nurse-only Follow-up Visit Visit (Physician/BOOT TURNER ) Arrival Mode Ambulatory,Cane Ambulatory Ambulatory Transfer Assistance None None Patient Identification Verified (Name & Yes Yes Yes ) Patient Requires Transmission-Based No No No Precautions Height and Weight Height 5 ft 8 in Weight 230 lb Weight in Pounds 230.0 lbs Weight Measurement Method Estimated by Patient Body Mass Index (BMI) 34.9 34.9 34.9 BMI Classification Obese Obese Obese BSA - Art 2.17 Vital Signs Temperature (97.8 F-99.1 F) 98 F 97.6 F L 97 F L Temperature Source Temporal Temporal Temporal Pulse Rate (60-100) 71 70 71 Pulse Location Monitor Monitor Monitor Respiratory Rate (12-18) 16 18 18 Respiratory rate source Observation Observation Observation Oxygen Delivery Method Room Air Blood Pressure (90/60-120/80) 127/62 H 148/68 H 149/71 H Blood Pressure Mean (mm Hg) 83 94 97 Source Monitor Monitor Monitor Position Sitting Semi-Fowlers Semi-Fowlers Blood Pressure Location Left Arm Left Arm Left Arm History Since Last Visit- (Skip if this is Patient's initial visit) Have you changed medications since your No last visit? Any new allergies or adverse reactions No Had a fall/change in ADL's that may No increase risk of falls Signs or symptoms of abuse and/or No neglect since last visit Have you been in the hospital since your No last visit? Has dressing in place as prescribed Yes Has compression in place as prescribed No Has offloadiing in place as prescribed No Experienced any changes in pain level or No management Left Footwear Regular Shoe Right Footwear Regular Shoe Pain Scale: 0-10 Numeric Is Patient Pain Free? 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 No Able to Read Yes Able to Write Yes Communication Tools None Right Hearing Abillity Hard of Hearing ,Use of Hearing Aid Left Hearing Abillity Hard of Hearing ,Use of Hearing Aid Visual Assistive Devices Glasses Teaching Assessment Preferences Verbal,Written, Audio/Visual, Demonstration Barriers to Learning None Readiness To Learn Excellent Willingness to Engage in Self Management High Activies Readiness to Engage in Self Management High Activities Anxiety Level Calm Cooperation Cooperative Perception Coherent Interest in Health Problem Asks Questions Education Importance Acknowledges Need Does Patient Smoke tobacco or other No substances Smoking Status Never smoker Is Patient Diabetic Yes Functional Assessment Recent Decline in Ability to Perform Denies Any Declines 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 Needs that may affect No Treatment Plan Teaching: Wound Center *Welcome to the Wound Center -Person Taught Patient -Teaching Method Discussion -Response to teaching Verbalize understanding Welcome to the Wound Care Center Maori 02/13/23 11:47 WC - Today's Visit Information Type of service Follow-up Visit (Physician/BOOT TURNER ) Arrival Mode Ambulatory,Cane Transfer Assistance None Patient Identification Verified (Name & Yes ) Patient Requires Transmission-Based No Precautions Height and Weight Height Weight Weight in Pounds Weight Measurement Method Body Mass Index (BMI) 34.9 BMI Classification Obese BSA - Art Vital Signs Temperature (97.8 F-99.1 F) 96.3 F L Temperature Source Temporal Pulse Rate (60-100) 72 Pulse Location Monitor Respiratory Rate (12-18) 16 Respiratory rate source Observation Oxygen Delivery Method Room Air Blood Pressure (90/60-120/80) 136/75 H Blood Pressure Mean (mm Hg) 95 Source Monitor Position Sitting Blood Pressure Location Left Arm History Since Last Visit- (Skip if this is Patient's initial visit) Have you changed medications since your No last visit? Any new allergies or adverse reactions No Had a fall/change in ADL's that may No increase risk of falls Signs or symptoms of abuse and/or No neglect since last visit Have you been in the hospital since your No last visit? Has dressing in place as prescribed Yes Has compression in place as prescribed N/A Has offloadiing in place as prescribed N/A Experienced any changes in pain level or No management Left Footwear Regular Shoe Right Footwear Regular Shoe Pain Scale: 0-10 Numeric Is Patient Pain Free? 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 Needs that may affect Treatment Plan Teaching: Wound Center *Welcome to the Wound Center -Person Taught -Teaching Method -Response to teaching Welcome to the Wound Care Center WC - Nurse 1 - General Ulcer Measurement Start: 01/30/23 09:21 Freq: Status: Active Protocol: Activity Type Activity Date Activity User E-sign Co-sign Detail Recorded Client Recorded Date Recorded By Document 01/30/23 09:28 [facility] [id number] 01/30/23 09:39 [facility] Document 01/31/23 13:20 [id number] 01/31/23 13:28 Document 02/06/23 09:29 RB [id number] 02/06/23 09:31 RB Document 02/13/23 11:47 [facility] [id number] 02/13/23 11:52 [facility] 01/30/23 01/31/23 02/06/23 09:28 13:20 09:29 Wound Center Nurse 1 #1- R ELBOW -Combined with other wound No No No -Current Size (cm) - Length 0.3 0.2 -Current Size (cm) - Width 0.2 0.2 -Current Size (cm) - Depth 0.4 0.4 -Total Square Cm 0.06 0.04 -Date of Last Picture (Recall this 01/30/23 field) -Photo Taken Yes No Yes -Epithelialization None Present None Present -Tunneling Yes No -Tunneling Position (O'clock) 12 -Tunneling Distance (cm) 0.9 -Undermining/Tunneling No Yes -Undermining/Tunneling Starts (O'clock 12 ) -Undermining/Tunneling Ends (O'clock) 12 -Maximum Distance (cm) 0.4 -Circular Undermining No No -Exudate Amt Medium Medium Medium -Exudate Type Serous Serosanguineous Serosanguineous -Wound Margin Distinct, Flat & Intact Thickened & Outline Rolled Under Attached -Granulation Amt Small (1-33%) Medium (34-66%) -Granulation Quality [place] -Slough/Fibrin Yes Yes -Necrosis Amt Large (67-100%) Medium (34-66%) -Necrotic Tissue Type Adherent Slough Adherent Slough -Structure Exposed N/A -Texture (Nyasia-wound Skin Appearance) Assessed, Assessed, Localized Edema Localized Edema ,Scarring -Moisture (Nyasia-wound Skin Appearance) Assessed Assessed -Color (Nyasia-wound Skin Appearance) Assessed, Assessed Erythema -Temperature (Nyasia-wound Skin No Abnormality No Abnormality Appearance) (Pt Warm) (Pt Warm) -Tenderness on Palpation (Nyasia-wound No No Skin Appearance) -Ulcer Cleansing Rinsed/ Soap and Water Wound Cleanser Irrigated with Saline -Foul Odor after Cleansing No No No -Anesthetic Used 5% Lidocaine 5% Lidocaine Gel Gel Lower Limb Edema Present NA 02/13/23 11:47 Wound Center Nurse 1 #1- R ELBOW -Combined with other wound No -Current Size (cm) - Length 0.3 -Current Size (cm) - Width 0.2 -Current Size (cm) - Depth 0.6 -Total Square Cm 0.06 -Date of Last Picture (Recall this field) -Photo Taken No -Epithelialization Small 1-33% -Tunneling No -Tunneling Position (O'clock) -Tunneling Distance (cm) -Undermining/Tunneling Yes -Undermining/Tunneling Starts (O'clock 10 ) -Undermining/Tunneling Ends (O'clock) 4 -Maximum Distance (cm) 0.5 -Circular Undermining No -Exudate Amt Medium -Exudate Type Serous -Wound Margin Distinct, Outline Attached -Granulation Amt Large (67-100%) -Granulation Quality [place] -Slough/Fibrin No -Necrosis Amt None Present (0 %) -Necrotic Tissue Type -Structure Exposed -Texture (Nyasia-wound Skin Appearance) Assessed, Scarring -Moisture (Nyasia-wound Skin Appearance) Assessed, Maceration -Color (Nyasia-wound Skin Appearance) Assessed -Temperature (Nyasia-wound Skin No Abnormality Appearance) (Pt Warm) -Tenderness on Palpation (Nyasia-wound No Skin Appearance) -Ulcer Cleansing Rinsed/ Irrigated with Saline -Foul Odor after Cleansing No -Anesthetic Used 5% Lidocaine Gel Lower Limb Edema Present WC - Nurse 2 - General Ulcer CM Notes Start: 01/30/23 09:21 Freq: Status: Active Protocol: Activity Type Activity Date Activity User E-sign Co-sign Detail Recorded Client Recorded Date Recorded By Document 01/30/23 10:22 MW [id number] 01/30/23 10:33 MW Document 02/06/23 09:56 [id number] 02/06/23 10:01 MW Document 02/13/23 11:56 [id number] 02/13/23 12:00 JF 01/30/23 02/06/23 02/13/23 10:22 09:56 11:56 Wound Center Nurse 2 #1- R ELBOW -Time 10:22 09:57 11:56 -Correct Patient Yes Yes Yes -Correct Side, Site, Position Yes Yes Yes -Correct Procedure Yes Yes Yes -Procedure Performed Yes Yes Yes -Type of Procedure Debridement Debridement Debridement -Clinical Debridement Subcutaneous Subcutaneous Subcutaneous -Tissue Removed Subcutaneous Subcutaneous Subcutaneous -Post Debridement (cm) - Length 0.4 0.1 0.4 -Post Debridement (cm) - Width 0.3 0.2 0.3 -Post Debridement (cm) - Depth 0.9 0.8 1.0 -Total Square (Post) (cm) 0.12 0.02 0.12 -Area of Debridement (cm) - Length 0.4 0.1 0.4 -Area of Debridement (cm) - Width 0.3 0.2 0.3 -Total Square (Area) (cm) 0.12 0.02 0.12 -Tunneling Yes Yes Yes -Tunneling Position (O'clock) 12 12 12 -Tunneling Distance (cm) 2.0 1.5 1.6 -Undermining/Tunneling No No No -Circular Undermining Yes Yes Yes -Wound/Ulcer Outcome Not Healed Not Healed Not Healed -Ulcer Cleansing Rinsed/ Rinsed/ Rinsed/ Irrigated with Irrigated with Irrigated with Saline Saline Saline -Foul Odor after Cleansing No No No -Bioengineered Tissue No No No -Bleeding Controlled with Pressure Pressure Pressure -Treatment Response Procedure Procedure Procedure Tolerated Well Tolerated Well Tolerated Well -Offloading No No No -Debridement - Subq, 1st 20sq cm Yes Yes Yes Pain Scale: 0-10 Numeric Is Patient Pain Free? Yes Yes Yes WC - Nurse 3 - General Ulcer D/C NN Start: 01/30/23 09:21 Freq: Status: Active Protocol: Activity Type Activity Date Activity User E-sign Co-sign Detail Recorded Client Recorded Date Recorded By Document 01/30/23 10:37 MW [id number] 01/30/23 10:50 MW Document 01/31/23 13:20 JF [id number] 01/31/23 13:28 JF Document 02/13/23 12:15 RB [id number] 02/13/23 12:16 RB 01/30/23 01/31/23 02/13/23 10:37 13:20 12:15 Wound Care Center Nurse 3 #1- R ELBOW -Ulcer Cleansing Rinsed/ Rinsed/ Rinsed/ Irrigated with Irrigated with Irrigated with Saline Saline Saline -Foul Odor after Cleansing No No -Negative Pressure Wound Therapy N/A -Primary Dressing Applied Nugauze, Mepilex Border Nugauze, Iodoform 1/4in, Iodoform 1/4in Mepilex Border -Other Dressing iodoform felt apputure packing pad to elbow -Primary Dressing Covered/Secured with Dry Gauze, Secured with Tape -Mepilex Border 2 1 -Nugauze, Iodoform 1/4in 1 1 Treatment Response Procedure Procedure Tolerated Well Tolerated Well Vital Signs Temperature (97.8 F-99.1 F) 97.6 F L Temperature Source Temporal Pulse Rate (60-100) 70 Pulse Location Monitor Respiratory Rate (12-18) 18 Respiratory rate source Observation Blood Pressure (90/60-120/80) 148/68 H Blood Pressure Mean (mm Hg) 94 Source Monitor Position Semi-Fowlers Blood Pressure Location Left Arm Pain Scale: 0-10 Numeric Is Patient Pain Free? Yes Yes Yes Teaching: Wound Center Dressing Your Wound -Person Taught Patient -Teaching Method Discussion -Response to teaching Verbalize understanding WC - Visit Discharge Discharge Condition Stable Stable Stable Ambulatory Status Ambulatory Ambulatory Ambulatory Transportation Private Auto Private Auto Private Auto Accompanied by self Medication Reconcilliation completed & No No No provided to patient/care provider Clinical Summary of Care Provided Yes No Assessment/Plan Assessment/Plan (1) Decubitus ulcer of right elbow, stage 3: CODE(S): L89.013 - Pressure ulcer of right elbow, stage 3 (2) Type II diabetes mellitus: CODE(S): E11.9 - Type 2 diabetes mellitus without complications PLAN: Plan Debridement done as documented above, procedure was well-tolerated. Some worsening noted compared to last week. Culture reviewed and no significant anai wth/possible skin contaminant (Staph epidermidis). Also currently on doxycycline. Discontinue Promogran and go back to iodoform packing which he appears to have done better on. Change daily, cover with foam dressing. Optimal protein intake and diabetes control. Avoid consistent pressure to the right elbow. His questions were answered and he was advised to call with any further questions or concerns. Follow-up in a week or sooner if needed. This note was generated with [employer] dictation software. It may contain incorrect words, spelling, and punctuation that were not noted in checking the note before signing.
[2023-02-20 08:54] VITALS: BP 122/50; PULSE 74; RESP 18; TEMP 36.3; BMI 34.9
--- NOTE | 2023-02-20 09:49 | PN.PCM_ITS ---
History of Present Illness Date of Service: 02/20/23 Chief Complaint: Right Elbow Ulcer History of Wound: Mr. Sarabia is a 68-year-old who was referred to the wound center due to nonhealing right elbow ulcer. Initially started in 2013. An area of swelling on his right elbow which subsequently opened up. Was seen at the wound center then, had imaging but he is not sure what exactly the imaging showed. Did not see Ortho surgeon, no known history of gout. Recent opening noted 6 months ago following a fall and has not healed since then. Previously, with reopening he had been able to manage it at home by himself. Occasional draining from the site but not significant. On chronic antibiotic for MRSA hip infection. History of Type 2 DM which is well controlled. Most recent A1C said to be 5. He feels well otherwise and has no acute concerns. Progress of Wound: Significant improvement in the past week. Minimal area left. Has had difficulty with packing wound Objective Data Objective Data Vital Signs: Vital Signs Temp Pulse Resp BP O2 Del Method 97.4 F L 74 18 122/50 H Room Air 02/20/23 08:54 02/20/23 08:54 02/20/23 08:54 02/20/23 08:54 02/13/23 11:47 Oxygen Delivery Method Room Air Weight: 230 lb Body Mass Index (BMI) 34.9 Lab / Micro Data Micro: Microbiology 02/06/23 10:00 Wound Abcess - Elbow Gram Stain - Final 02/06/23 10:00 Wound Abcess - Elbow Wound Culture - Final Staphylococcus epidermidis 02/06/23 10:00 Wound Abcess - Elbow Anaerobic Culture - Final No anaerobic bacteria isolated. Charges/Coding Visit Charges Office Visits / Consults: [id number] OV L3 Est Physical Exam Const alert, oriented x3 and no apparent distress General Appearance: cooperative and comfortable HEENT normocephalic and head/scalp atraumatic Eyes EOMs intact bilaterally Neck full ROM and supple General: normal visual inspection Resp normal respiratory effort Effort and Inspection: able to speak in complete sentences Skin Wounds: wounds noted Neuro oriented x3, CN's II-XII intact bilaterally, moves all extremities and no focal motor deficits Psych mental status grossly normal, thought process normal, cooperative and affect normal Debridement Note Debridement Note Post-Debridement Measurements and Additional Note: Post-Debridement Measurements/Treatment WC - Nurse 1 - General Ulcer Assessment Start: 01/30/23 09:21 Freq: Status: Active Protocol: WC.LOWEXT Activity Type Activity Date Activity User E-sign Co-sign Detail Recorded Client Recorded Date Recorded By Document 01/30/23 09:28 BM [id number] 01/30/23 09:39 BM Document 01/31/23 13:20 JF [id number] 01/31/23 13:28 JF Document 02/06/23 09:29 RB [id number] 02/06/23 09:31 RB Document 02/13/23 11:47 BMF [id number] 02/13/23 11:52 BMF Document 02/20/23 08:54 DL [id number] 02/20/23 08:59 DL 01/30/23 01/31/23 02/06/23 09:28 13:20 09:29 WC - Today's Visit Information Type of service Initial Visit Nurse-only Follow-up Visit Visit (Physician/FLANGE TURNER ) Arrival Mode Ambulatory,Cane Ambulatory Ambulatory Transfer Assistance None None Patient Identification Verified (Name & Yes Yes Yes ) Patient Requires Transmission-Based No No No Precautions Finger Stick Blood Sugar(mg/dl) (if indicated): Blood Sugar Height and Weight Height 5 ft 8 in Weight 230 lb Weight in Pounds 230.0 lbs Weight Measurement Method Estimated by Patient Body Mass Index (BMI) 34.9 34.9 34.9 BMI Classification Obese Obese Obese BSA - Art 2.17 Vital Signs Temperature (97.8 F-99.1 F) 98 F 97.6 F L 97 F L Temperature Source Temporal Temporal Temporal Pulse Rate (60-100) 71 70 71 Pulse Location Monitor Monitor Monitor Respiratory Rate (12-18) 16 18 18 Respiratory rate source Observation Observation Observation Oxygen Delivery Method Room Air Blood Pressure (90/60-120/80) 127/62 H 148/68 H 149/71 H Blood Pressure Mean (mm Hg) 83 94 97 Source Monitor Monitor Monitor Position Sitting Semi-Fowlers Semi-Fowlers Blood Pressure Location Left Arm Left Arm Left Arm History Since Last Visit- (Skip if this is Patient's initial visit) Have you changed medications since your No last visit? Any new allergies or adverse reactions No Had a fall/change in ADL's that may No increase risk of falls Signs or symptoms of abuse and/or No neglect since last visit Have you been in the hospital since your No last visit? Has dressing in place as prescribed Yes Has compression in place as prescribed No Has offloadiing in place as prescribed No Experienced any changes in pain level or No management Left Footwear Regular Shoe Right Footwear Regular Shoe Pain Scale: 0-10 Numeric Is Patient Pain Free? Yes Yes Yes Communication Assessment Preferred language Nigerien Severity Of Illness Coordinator Required No Able to Read Yes Able to Write Yes Communication Tools None Right Hearing Abillity Hard of Hearing ,Use of Hearing Aid Left Hearing Abillity Hard of Hearing ,Use of Hearing Aid Visual Assistive Devices Glasses Teaching Assessment Preferences Verbal,Written, Audio/Visual, Demonstration Barriers to Learning None Readiness To Learn Excellent Willingness to Engage in Self Management High Activies Readiness to Engage in Self Management High Activities Anxiety Level Calm Cooperation Cooperative Perception Coherent Interest in Health Problem Asks Questions Education Importance Acknowledges Need Does Patient Smoke tobacco or other No substances Smoking Status Never smoker Is Patient Diabetic Yes Functional Assessment Recent Decline in Ability to Perform Denies Any Declines 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 Needs that may affect No Treatment Plan Teaching: Wound Center *Welcome to the Wound Center -Person Taught Patient -Teaching Method Discussion -Response to teaching Verbalize understanding Welcome to the Wound Care Center [place] 02/13/23 02/20/23 11:47 08:54 WC - Today's Visit Information Type of service Follow-up Visit Follow-up Visit (Physician/FLANGE TURNER (Physician/FLANGE TURNER ) ) Arrival Mode Ambulatory,Cane Ambulatory Transfer Assistance None None Patient Identification Verified (Name & Yes Yes ) Patient Requires Transmission-Based No No Precautions Finger Stick Blood Sugar(mg/dl) (if 144 indicated): Blood Sugar Stated by Patient Height and Weight Height Weight Weight in Pounds Weight Measurement Method Body Mass Index (BMI) 34.9 34.9 BMI Classification Obese Obese BSA - Art Vital Signs Temperature (97.8 F-99.1 F) 96.3 F L 97.4 F L Temperature Source Temporal Temporal Pulse Rate (60-100) 72 74 Pulse Location Monitor Monitor Respiratory Rate (12-18) 16 18 Respiratory rate source Observation Observation Oxygen Delivery Method Room Air Blood Pressure (90/60-120/80) 136/75 H 122/50 H Blood Pressure Mean (mm Hg) 95 74 Source Monitor Monitor Position Sitting Blood Pressure Location Left Arm History Since Last Visit- (Skip if this is Patient's initial visit) Have you changed medications since your No No last visit? Any new allergies or adverse reactions No No Had a fall/change in ADL's that may No No increase risk of falls Signs or symptoms of abuse and/or No No neglect since last visit Have you been in the hospital since your No No last visit? Has dressing in place as prescribed Yes Yes Has compression in place as prescribed N/A N/A Has offloadiing in place as prescribed N/A N/A Experienced any changes in pain level or No No management Left Footwear Regular Shoe Right Footwear Regular Shoe Pain Scale: 0-10 Numeric Is Patient Pain Free? 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 Able to Read Able to Write Communication Tools Right Hearing Abillity Left Hearing Abillity Visual Assistive Devices Teaching Assessment Preferences Barriers to Learning Readiness To Learn Willingness to Engage in Self Management Activies Readiness to Engage in Self Management Activities Anxiety Level Cooperation Perception Interest in Health Problem Education Importance Does Patient Smoke tobacco or other substances Smoking Status Is Patient Diabetic Functional Assessment Recent Decline in Ability to Perform 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 Needs that may affect Treatment Plan Teaching: Wound Center *Welcome to the Wound Center -Person Taught -Teaching Method -Response to teaching Welcome to the Wound Care Center WC - Nurse 1 - General Ulcer Measurement Start: 01/30/23 09:21 Freq: Status: Active Protocol: Activity Type Activity Date Activity User E-sign Co-sign Detail Recorded Client Recorded Date Recorded By Document 01/30/23 09:28 [facility] [id number] 01/30/23 09:39 [facility] Document 01/31/23 13:20 JF [id number] 01/31/23 13:28 JF Document 02/06/23 09:29 RB [id number] 02/06/23 09:31 RB Document 02/13/23 11:47 [facility] [id number] 02/13/23 11:52 [facility] Document 02/20/23 08:54 DL [id number] 02/20/23 08:59 DL 01/30/23 01/31/23 02/06/23 09:28 13:20 09:29 Wound Center Nurse 1 #1- R ELBOW -Combined with other wound No No No -Current Size (cm) - Length 0.3 0.2 -Current Size (cm) - Width 0.2 0.2 -Current Size (cm) - Depth 0.4 0.4 -Total Square Cm 0.06 0.04 -Date of Last Picture (Recall this 01/30/23 field) -Photo Taken Yes No Yes -Epithelialization None Present None Present -Tunneling Yes No -Tunneling Position (O'clock) 12 -Tunneling Distance (cm) 0.9 -Undermining/Tunneling No Yes -Undermining/Tunneling Starts (O'clock 12 ) -Undermining/Tunneling Ends (O'clock) 12 -Maximum Distance (cm) 0.4 -Circular Undermining No No -Exudate Amt Medium Medium Medium -Exudate Type Serous Serosanguineous Serosanguineous -Wound Margin Distinct, Flat & Intact Thickened & Outline Rolled Under Attached -Granulation Amt Small (1-33%) Medium (34-66%) -Granulation Quality [place] -Slough/Fibrin Yes Yes -Necrosis Amt Large (67-100%) Medium (34-66%) -Necrotic Tissue Type Adherent Slough Adherent Slough -Structure Exposed N/A -Texture (Nyasia-wound Skin Appearance) Assessed, Assessed, Localized Edema Localized Edema ,Scarring -Moisture (Nyasia-wound Skin Appearance) Assessed Assessed -Color (Nyasia-wound Skin Appearance) Assessed, Assessed Erythema -Temperature (Nyasia-wound Skin No Abnormality No Abnormality Appearance) (Pt Warm) (Pt Warm) -Tenderness on Palpation (Nyasia-wound No No Skin Appearance) -Ulcer Cleansing Rinsed/ Soap and Water Wound Cleanser Irrigated with Saline -Foul Odor after Cleansing No No No -Anesthetic Used 5% Lidocaine 5% Lidocaine Gel Gel Lower Limb Edema Present NA 02/13/23 02/20/23 11:47 08:54 Wound Center Nurse 1 #1- R ELBOW -Combined with other wound No -Current Size (cm) - Length 0.3 0.1 -Current Size (cm) - Width 0.2 0.1 -Current Size (cm) - Depth 0.6 0.1 -Total Square Cm 0.06 0.01 -Date of Last Picture (Recall this field) -Photo Taken No Yes -Epithelialization Small 1-33% -Tunneling No -Tunneling Position (O'clock) -Tunneling Distance (cm) -Undermining/Tunneling Yes -Undermining/Tunneling Starts (O'clock 10 ) -Undermining/Tunneling Ends (O'clock) 4 -Maximum Distance (cm) 0.5 -Circular Undermining No -Exudate Amt Medium -Exudate Type Serous -Wound Margin Distinct, Outline Attached -Granulation Amt Large (67-100%) Small (1-33%) -Granulation Quality [place] -Slough/Fibrin No -Necrosis Amt None Present (0 None Present (0 %) %) -Necrotic Tissue Type -Structure Exposed N/A -Texture (Nyasia-wound Skin Appearance) Assessed, Scarring Scarring -Moisture (Nyasia-wound Skin Appearance) Assessed, No Abnormality Maceration -Color (Nyasia-wound Skin Appearance) Assessed No Abnormality -Temperature ([place]yasia-wound Skin No Abnormality No Abnormality Appearance) (Pt Warm) (Pt Warm) -Tenderness on Palpation (Nyasia-wound No Skin Appearance) -Ulcer Cleansing Rinsed/ Rinsed/ Irrigated with Irrigated with Saline Saline -Foul Odor after Cleansing No No -Anesthetic Used 5% Lidocaine 5% Lidocaine Gel Gel Lower Limb Edema Present WC - Nurse 2 - General Ulcer CM Notes Start: 01/30/23 09:21 Freq: Status: Active Protocol: Activity Type Activity Date Activity User E-sign Co-sign Detail Recorded Client Recorded Date Recorded By Document 01/30/23 10:22 MW [id number] 01/30/23 10:33 MW Document 02/06/23 09:56 [id number] 02/06/23 10:01 MW Document 02/13/23 11:56 [id number] 02/13/23 12:00 Document 02/20/23 09:08 MW [id number] 02/20/23 09:09 MW 01/30/23 02/06/23 02/13/23 10:22 09:56 11:56 Wound Center Nurse 2 #1- R ELBOW -Time 10:22 09:57 11:56 -Correct Patient Yes Yes Yes -Correct Side, Site, Position Yes Yes Yes -Correct Procedure Yes Yes Yes -Procedure Performed Yes Yes Yes -Type of Procedure Debridement Debridement Debridement -Clinical Debridement Subcutaneous Subcutaneous Subcutaneous -Tissue Removed Subcutaneous Subcutaneous Subcutaneous -Post Debridement (cm) - Length 0.4 0.1 0.4 -Post Debridement (cm) - Width 0.3 0.2 0.3 -Post Debridement (cm) - Depth 0.9 0.8 1.0 -Total Square (Post) (cm) 0.12 0.02 0.12 -Area of Debridement (cm) - Length 0.4 0.1 0.4 -Area of Debridement (cm) - Width 0.3 0.2 0.3 -Total Square (Area) (cm) 0.12 0.02 0.12 -Tunneling Yes Yes Yes -Tunneling Position (O'clock) 12 12 12 -Tunneling Distance (cm) 2.0 1.5 1.6 -Undermining/Tunneling No No No -Circular Undermining Yes Yes Yes -Wound/Ulcer Outcome Not Healed Not Healed Not Healed -Ulcer Cleansing Rinsed/ Rinsed/ Rinsed/ Irrigated with Irrigated with Irrigated with Saline Saline Saline -Foul Odor after Cleansing No No No -Bioengineered Tissue No No No -Bleeding Controlled with Pressure Pressure Pressure -Treatment Response Procedure Procedure Procedure Tolerated Well Tolerated Well Tolerated Well -Offloading No No No -Debridement - Subq, 1st 20sq cm Yes Yes Yes Pain Scale: 0-10 Numeric Is Patient Pain Free? Yes Yes Yes 02/20/23 09:08 Wound Center Nurse 2 #1- R ELBOW -Time 09:08 -Correct Patient Yes -Correct Side, Site, Position Yes -Correct Procedure Yes -Procedure Performed No -Type of Procedure -Clinical Debridement -Tissue Removed -Post Debridement (cm) - Length 0 -Post Debridement (cm) - Width 0 -Post Debridement (cm) - Depth 0 -Total Square (Post) (cm) 0 -Area of Debridement (cm) - Length -Area of Debridement (cm) - Width -Total Square (Area) (cm) -Tunneling -Tunneling Position (O'clock) -Tunneling Distance (cm) -Undermining/Tunneling -Circular Undermining -Wound/Ulcer Outcome Healed- Epithelialized -Ulcer Cleansing -Foul Odor after Cleansing -Bioengineered Tissue -Bleeding Controlled with -Treatment Response -Offloading -Debridement - Subq, 1st 20sq cm Pain Scale: 0-10 Numeric Is Patient Pain Free? Yes WC - Nurse 3 - General Ulcer D/C NN Start: 01/30/23 09:21 Freq: Status: Active Protocol: Activity Type Activity Date Activity User E-sign Co-sign Detail Recorded Client Recorded Date Recorded By Document 01/30/23 10:37 MW [id number] 01/30/23 10:50 MW Document 01/31/23 13:20 JF [id number] 01/31/23 13:28 JF Document 02/13/23 12:15 RB [id number] 02/13/23 12:16 RB Document 02/20/23 09:11 MW [id number] 02/20/23 09:12 MW 01/30/23 01/31/23 02/13/23 10:37 13:20 12:15 Wound Care Center Nurse 3 #1- R ELBOW -Ulcer Cleansing Rinsed/ Rinsed/ Rinsed/ Irrigated with Irrigated with Irrigated with Saline Saline Saline -Foul Odor after Cleansing No No -Negative Pressure Wound Therapy N/A -Primary Dressing Applied Nugauze, Mepilex Border Nugauze, Iodoform 1/4in, Iodoform 1/4in Mepilex Border -Other Dressing iodoform felt apputure packing pad to elbow -Primary Dressing Covered/Secured with Dry Gauze, Secured with Tape -Mepilex Border 2 1 -Nugauze, Iodoform 1/4in 1 1 Treatment Response Procedure Procedure Tolerated Well Tolerated Well Vital Signs Temperature (97.8 F-99.1 F) 97.6 F L Temperature Source Temporal Pulse Rate (60-100) 70 Pulse Location Monitor Respiratory Rate (12-18) 18 Respiratory rate source Observation Blood Pressure (90/60-120/80) 148/68 H Blood Pressure Mean (mm Hg) 94 Source Monitor Position Semi-Fowlers Blood Pressure Location Left Arm Pain Scale: 0-10 Numeric Is Patient Pain Free? Yes Yes Yes Teaching: Wound Center Dressing Your Wound -Person Taught Patient -Teaching Method Discussion -Response to teaching Verbalize understanding WC - Visit Discharge Discharge Condition Stable Stable Stable Ambulatory Status Ambulatory Ambulatory Ambulatory Transportation Private Auto Private Auto Private Auto Accompanied by self Medication Reconcilliation completed & No No No provided to patient/care provider Clinical Summary of Care Provided Yes No Notes: 02/20/23 09:11 Wound Care Center Nurse 3 #1- R ELBOW -Ulcer Cleansing Rinsed/ Irrigated with Saline -Foul Odor after Cleansing No -Negative Pressure Wound Therapy N/A -Primary Dressing Applied Mepilex Border -Other Dressing -Primary Dressing Covered/Secured with -Mepilex Border 1 -Nugauze, Iodoform 1/4in Treatment Response Vital Signs Temperature (97.8 F-99.1 F) Temperature Source Pulse Rate (60-100) Pulse Location Respiratory Rate (12-18) Respiratory rate source Blood Pressure (90/60-120/80) Blood Pressure Mean (mm Hg) Source Position Blood Pressure Location Pain Scale: 0-10 Numeric Is Patient Pain Free? Yes Teaching: Wound Center Dressing Your Wound -Person Taught Patient -Teaching Method Discussion -Response to teaching Verbalize understanding WC - Visit Discharge Discharge Condition Stable Ambulatory Status Ambulatory Transportation Private Auto Accompanied by self Medication Reconcilliation completed & No provided to patient/care provider Clinical Summary of Care Provided Yes Notes: f/u in one week Assessment/Plan Assessment/Plan (1) Decubitus ulcer of right elbow, stage 3: CODE(S): L89.013 - Pressure ulcer of right elbow, stage 3 (2) Type II diabetes mellitus: CODE(S): E11.9 - Type 2 diabetes mellitus without complications PLAN: Plan No debridement completed today, minimal area on left. Apply moistened Promogran over top, continue foam dressing. Change daily. Optimal protein intake and diabetes control. Avoid consistent pressure to the right elbow. His questions were answered and he was advised to call with any further questions or concerns. Follow-up in a week or sooner if needed. This note was generated with [employer] dictation software. It may contain incorrect words, spelling, and punctuation that were not noted in checking the note before signing.
== END 2023-02-26 23:59 | disposition home or self-care (01) ==
LOC: WC 08:30
PROVIDERS: PCP Internal Medicine; Referring Provider Internal Medicine; Visit Provider Internal Medicine
DX: E11.622 Type 2 diabetes mellitus with other skin ulcer (principal); L89.013 Pressure ulcer of right elbow, stage 3; J44.9 Chronic obstructive pulmonary disease, unspecified; Z79.02 Long term (current) use of antithrombotics/antiplatelets; I10 Essential (primary) hypertension; I25.10 Atherosclerotic heart disease of native coronary artery without angina pectoris; E78.5 Hyperlipidemia, unspecified; Z79.82 Long term (current) use of aspirin; E03.9 Hypothyroidism, unspecified; Z79.899 Other long term (current) 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; Z86.14 Personal history of Methicillin resistant Staphylococcus aureus infection; Z79.890 Hormone replacement therapy; Z87.891 Personal history of nicotine dependence
CPT/HCPCS: 11042; 87070; 87075; 87186; 87205; 99211; 99213; G0463

== ENCOUNTER 2023-03-13 11:00 | Outpatient (RCR) | payer MEDICARE, BC, SELFPAY ==
[2023-02-27 00:11] VITALS: BP 122/50; PULSE 74; RESP 18; TEMP 36.3; BMI 34.9
[2023-02-27 10:53] VITALS: BP 113/52; PULSE 72; RESP 16; TEMP 36.3; BMI 34.9
--- NOTE | 2023-02-27 11:09 | PN.PCM_ITS ---
History of Present Illness Date of Service: 02/27/23 Chief Complaint: Right Elbow Ulcer History of Wound: Mr. Sarabia is a 68-year-old who was referred to the wound center due to nonhealing right elbow ulcer. Initially started in 2013. An area of swelling on his right elbow which subsequently opened up. Was seen at the wound center then, had imaging but he is not sure what exactly the imaging showed. Did not see Ortho surgeon, no known history of gout. Recent opening noted 6 months ago following a fall and has not healed since then. Previously, with reopening he had been able to manage it at home by himself. Occasional draining from the site but not significant. On chronic antibiotic for MRSA hip infection. History of Type 2 DM which is well controlled. Most recent A1C said to be 5. He feels well otherwise and has no acute concerns. Progress of Wound: No new concerns at this time. Still very minimal area left. At his last visit, he was advised to apply moistened Promogran to the ulcer but has been applying iodoform just over it instead. He states that he has had no drainage since his last visit. Objective Data Objective Data Vital Signs: Vital Signs Temp Pulse Resp BP O2 Del Method 97.4 F L 72 16 113/52 L Room Air 02/27/23 10:53 02/27/23 10:53 02/27/23 10:53 02/27/23 10:53 02/27/23 10:53 Oxygen Delivery Method Room Air Weight: 230 lb Body Mass Index (BMI) 34.9 Charges/Coding Visit Charges Office Visits / Consults: 79725 OV L3 Est Physical Exam Const alert, oriented x3 and no apparent distress General Appearance: cooperative and comfortable HEENT normocephalic and head/scalp atraumatic Eyes EOMs intact bilaterally Neck full ROM and supple General: normal visual inspection Resp normal respiratory effort Effort and Inspection: able to speak in complete sentences Skin Wounds: wounds noted Neuro oriented x3, CN's II-XII intact bilaterally, moves all extremities and no focal motor deficits Psych mental status grossly normal, thought process normal, cooperative and affect normal Debridement Note Debridement Note Post-Debridement Measurements and Additional Note: Post-Debridement Measurements/Treatment CHRIS - Nurse 1 - General Ulcer Assessment Start: 02/27/23 10:53 Freq: Status: Active Protocol: SYEDEXJackelyn Activity Type Activity Date Activity User E-sign Co-sign Detail Recorded Client Recorded Date Recorded By Document 02/27/23 10:53 [facility] [id number] 02/27/23 10:59 [facility] 02/27/23 10:53 - Today's Visit Information Type of service Follow-up Visit (Physician/[employer]AL [employer] ) Arrival Mode Ambulatory Transfer Assistance None Patient Identification Verified (Name & Yes ) Patient Requires Transmission-Based No Precautions Height and Weight Body Mass Index (BMI) 34.9 BMI Classification Obese Vital Signs Temperature (97.8 F-99.1 F) 97.4 F L Temperature Source Temporal Pulse Rate (60-100) 72 Pulse Location Monitor Respiratory Rate (12-18) 16 Respiratory rate source Observation Oxygen Delivery Method Room Air Blood Pressure (90/60-120/80) 113/52 L Blood Pressure Mean (mm Hg) 72 Source Monitor Position Sitting Blood Pressure Location Left Arm History Since Last Visit- (Skip if this is Patient's initial visit) Have you changed medications since your No last visit? Any new allergies or adverse reactions No Had a fall/change in ADL's that may No increase risk of falls Signs or symptoms of abuse and/or No neglect since last visit Have you been in the hospital since your No last visit? Has dressing in place as prescribed Yes Has compression in place as prescribed N/A Has offloadiing in place as prescribed N/A Experienced any changes in pain level or No management Left Footwear Regular Shoe Right Footwear Regular Shoe Pain Scale: 0-10 Numeric Is Patient Pain Free? Yes - Nurse 1 - General Ulcer Measurement Start: 02/27/23 10:53 Freq: Status: Active Protocol: Activity Type Activity Date Activity User E-sign Co-sign Detail Recorded Client Recorded Date Recorded By Document 02/27/23 10:53 [facility] [id number] 02/27/23 10:59 [facility] 02/27/23 10:53 Wound Center Nurse 1 #1- R ELBOW -Combined with other wound No -Current Size (cm) - Length 0.1 -Current Size (cm) - Width 0.1 -Current Size (cm) - Depth 0.1 -Total Square Cm 0.01 -Date of Last Picture (Recall this 02/27/23 field) -Photo Taken Yes -Epithelialization Large 67-100% -Tunneling No -Undermining/Tunneling No -Circular Undermining No -Exudate Amt None Present -Texture (Nyasia-wound Skin Appearance) Assessed, Scarring -Moisture (Nyasia-wound Skin Appearance) Assessed -Color (Nyasia-wound Skin Appearance) Assessed -Temperature (Nyasia-wound Skin No Abnormality Appearance) (Pt Warm) -Tenderness on Palpation (Nyasia-wound No Skin Appearance) -Ulcer Cleansing Rinsed/ Irrigated with Saline -Foul Odor after Cleansing No WC - Nurse 2 - General Ulcer CM Notes Start: 02/27/23 10:53 Freq: Status: Active Protocol: Activity Type Activity Date Activity User E-sign Co-sign Detail Recorded Client Recorded Date Recorded By Document 02/27/23 11:06 MW [id number] 02/27/23 11:08 MW 02/27/23 11:06 Wound Center Nurse 2 -Time 11:06 -Correct Patient Yes -Correct Side, Site, Position Yes -Correct Procedure Yes -Procedure Performed No -Post Debridement (cm) - Length 0.1 -Post Debridement (cm) - Width 0.1 -Post Debridement (cm) - Depth 0.1 -Total Square (Post) (cm) 0.01 -Wound/Ulcer Outcome Not Healed -Ulcer Cleansing Rinsed/ Irrigated with Saline -Foul Odor after Cleansing No -Bioengineered Tissue No -Bleeding Controlled with Pressure -Treatment Response Procedure Tolerated Well -Offloading No Pain Scale: 0-10 Numeric Is Patient Pain Free? Yes - Nurse 3 - General Ulcer D/C NN Start: 02/27/23 10:53 Freq: Status: Active Protocol: Activity Type Activity Date Activity User E-sign Co-sign Detail Recorded Client Recorded Date Recorded By Document 02/27/23 11:08 MW [id number] 02/27/23 11:09 MW 02/27/23 11:08 Wound Care Center Nurse 3 #1- R ELBOW -Ulcer Cleansing Rinsed/ Irrigated with Saline -Foul Odor after Cleansing No -Negative Pressure Wound Therapy N/A -Primary Dressing Applied Mepilex Border, Promogran -Mepilex Border 1 -Promogran 1 Treatment Response Procedure Tolerated Well Pain Scale: 0-10 Numeric Is Patient Pain Free? Yes Teaching: Wound Center Dressing Your Wound -Person Taught Patient -Teaching Method Discussion, Demonstration -Response to teaching Return demonstration WC - Visit Discharge Discharge Condition Stable Ambulatory Status Ambulatory,Cane Transportation Private Auto Accompanied by SELF Medication Reconcilliation completed & No provided to patient/care provider Clinical Summary of Care Provided Yes Assessment/Plan Assessment/Plan (1) Decubitus ulcer of right elbow, stage 3: CODE(S): L89.013 - Pressure ulcer of right elbow, stage 3 (2) Type II diabetes mellitus: CODE(S): E11.9 - Type 2 diabetes mellitus without complications PLAN: Plan No debridement completed today, still minimal area left. Apply moistened Promogran over top, continue foam dressing. Change daily. Optimal protein intake and diabetes control. Avoid consistent pressure to the right elbow. His questions were answered and he was advised to call with any further questions or concerns. Follow-up in 2 weeks or sooner if needed. This note was generated with [employer] dictation software. It may contain incorrect words, spelling, and punctuation that were not noted in checking the note before signing.
--- NOTE | 2023-03-13 11:22 | PCM.WC.PN ---
History of Present Illness Date of Service: 03/13/23 Chief Complaint: Right Elbow Ulcer History of Wound: Mr. Sarabia is a 68-year-old who was referred to the wound center due to nonhealing right elbow ulcer. Initially started in 2013. An area of swelling on his right elbow which subsequently opened up. Was seen at the wound center then, had imaging but he is not sure what exactly the imaging showed. Did not see Ortho surgeon, no known history of gout. Recent opening noted 6 months ago following a fall and has not healed since then. Previously, with reopening he had been able to manage it at home by himself. Occasional draining from the site but not significant. On chronic antibiotic for MRSA hip infection. History of Type 2 DM which is well controlled. Most recent A1C said to be 5. He feels well otherwise and has no acute concerns. Progress of Wound: No new concerns at this time, healed. Objective Data Objective Data Vital Signs: Vital Signs Temp Pulse Resp BP O2 Del Method 97.4 F L 72 16 113/52 L Room Air 02/27/23 10:53 02/27/23 10:53 02/27/23 10:53 02/27/23 10:53 02/27/23 10:53 Oxygen Delivery Method Room Air Weight: 230 lb Body Mass Index (BMI) 34.9 Charges/Coding Visit Charges Office Visits / Consults: 63092 OV L3 Est Physical Exam Const alert, oriented x3 and no apparent distress General Appearance: cooperative and comfortable HEENT normocephalic and head/scalp atraumatic Eyes EOMs intact bilaterally Neck full ROM and supple General: normal visual inspection Resp normal respiratory effort Effort and Inspection: able to speak in complete sentences Neuro oriented x3, CN's II-XII intact bilaterally, moves all extremities and no focal motor deficits Psych mental status grossly normal, thought process normal, cooperative and affect normal Debridement Note Debridement Note Post-Debridement Measurements and Additional Note: Post-Debridement Measurements/Treatment - Nurse 1 - General Ulcer Assessment Start: 02/27/23 10:53 Freq: Status: Active Protocol: CHRIS.LOWEXT Activity Type Activity Date Activity User E-sign Co-sign Detail Recorded Client Recorded Date Recorded By Document 02/27/23 10:53 [facility] [id number] 02/27/23 10:59 [facility] 02/27/23 10:53 - Today's Visit Information Type of service Follow-up Visit (Physician/FAITH DOCTOR ) Arrival Mode Ambulatory Transfer Assistance None Patient Identification Verified (Name & Yes ) Patient Requires Transmission-Based No Precautions Height and Weight Body Mass Index (BMI) 34.9 BMI Classification Obese Vital Signs Temperature (97.8 F-99.1 F) 97.4 F L Temperature Source Temporal Pulse Rate (60-100) 72 Pulse Location Monitor Respiratory Rate (12-18) 16 Respiratory rate source Observation Oxygen Delivery Method Room Air Blood Pressure (90/60-120/80) 113/52 L Blood Pressure Mean (mm Hg) 72 Source Monitor Position Sitting Blood Pressure Location Left Arm History Since Last Visit- (Skip if this is Patient's initial visit) Have you changed medications since your No last visit? Any new allergies or adverse reactions No Had a fall/change in ADL's that may No increase risk of falls Signs or symptoms of abuse and/or No neglect since last visit Have you been in the hospital since your No last visit? Has dressing in place as prescribed Yes Has compression in place as prescribed N/A Has offloadiing in place as prescribed N/A Experienced any changes in pain level or No management Left Footwear Regular Shoe Right Footwear Regular Shoe Pain Scale: 0-10 Numeric Is Patient Pain Free? Yes - Nurse 1 - General Ulcer Measurement Start: 02/27/23 10:53 Freq: Status: Active Protocol: Activity Type Activity Date Activity User E-sign Co-sign Detail Recorded Client Recorded Date Recorded By Document 02/27/23 10:53 [facility] [id number] 02/27/23 10:59 [facility] 02/27/23 10:53 Wound Center Nurse 1 #1- R ELBOW -Combined with other wound No -Current Size (cm) - Length 0.1 -Current Size (cm) - Width 0.1 -Current Size (cm) - Depth 0.1 -Total Square Cm 0.01 -Date of Last Picture (Recall this 02/27/23 field) -Photo Taken Yes -Epithelialization Large 67-100% -Tunneling No -Undermining/Tunneling No -Circular Undermining No -Exudate Amt None Present -Texture (Nyasia-wound Skin Appearance) Assessed, Scarring -Moisture (Nyasia-wound Skin Appearance) Assessed -Color (Nyasia-wound Skin Appearance) Assessed -Temperature (Nyasia-wound Skin No Abnormality Appearance) (Pt Warm) -Tenderness on Palpation (Nyasia-wound No Skin Appearance) -Ulcer Cleansing Rinsed/ Irrigated with Saline -Foul Odor after Cleansing No WC - Nurse 2 - General Ulcer CM Notes Start: 02/27/23 10:53 Freq: Status: Active Protocol: Activity Type Activity Date Activity User E-sign Co-sign Detail Recorded Client Recorded Date Recorded By Document 02/27/23 11:06 MW [id number] 02/27/23 11:08 MW Document 03/13/23 11:13 MW Desktop 03/13/23 11:14 MW 02/27/23 03/13/23 11:06 11:13 Wound Center Nurse 2 #1- R ELBOW -Time 11:06 11:13 -Correct Patient Yes Yes -Correct Side, Site, Position Yes Yes -Correct Procedure Yes Yes -Procedure Performed No No -Post Debridement (cm) - Length 0.1 0 -Post Debridement (cm) - Width 0.1 0 -Post Debridement (cm) - Depth 0.1 0 -Total Square (Post) (cm) 0.01 0 -Wound/Ulcer Outcome Not Healed Healed- Epithelialized -Ulcer Cleansing Rinsed/ Irrigated with Saline -Foul Odor after Cleansing No -Bioengineered Tissue No -Bleeding Controlled with Pressure -Treatment Response Procedure Tolerated Well -Offloading No Pain Scale: 0-10 Numeric Is Patient Pain Free? Yes Yes CHRIS - Nurse 3 - General Ulcer D/C NN Start: 02/27/23 10:53 Freq: Status: Active Protocol: Activity Type Activity Date Activity User E-sign Co-sign Detail Recorded Client Recorded Date Recorded By Document 02/27/23 11:08 MW [id number] 02/27/23 11:09 MW Document 03/13/23 11:14 MW Desktop 03/13/23 11:15 MW 02/27/23 03/13/23 11:08 11:14 Wound Care Center Nurse 3 #1- R ELBOW -Ulcer Cleansing Rinsed/ Not Cleansed Irrigated with Saline -Foul Odor after Cleansing No -Negative Pressure Wound Therapy N/A -Primary Dressing Applied Mepilex Border, Mepilex Border Promogran -Mepilex Border 1 1 -Promogran 1 Treatment Response Procedure Procedure Tolerated Well Tolerated Well Pain Scale: 0-10 Numeric Is Patient Pain Free? Yes Yes Teaching: Wound Center Dressing Your Wound -Person Taught Patient Patient -Teaching Method Discussion, Discussion Demonstration -Response to teaching Return Verbalize demonstration understanding WC - Visit Discharge Discharge Condition Stable Stable Ambulatory Status Ambulatory,Cane Ambulatory,Cane Transportation Private Auto Private Auto Accompanied by SELF self Medication Reconcilliation completed & No No provided to patient/care provider Clinical Summary of Care Provided Yes Yes Assessment/Plan Assessment/Plan (1) Decubitus ulcer of right elbow, stage 3: CODE(S): L89.013 - Pressure ulcer of right elbow, stage 3 (2) Type II diabetes mellitus: CODE(S): E11.9 - Type 2 diabetes mellitus without complications PLAN: Plan No debridement completed today, healed. Vaseline and foam dressing for a month. Avoid pressure to the area. His questions were answered and he was advised to call with any further questions or concerns. Discharge from the wound center. This note was generated with [employer] dictation software. It may contain incorrect words, spelling, and punctuation that were not noted in checking the note before signing.
[2023-03-13 12:11] VITALS: BP 110/68; PULSE 69; TEMP 36.2; BMI 34.9
== END 2023-03-13 11:29 | disposition home or self-care (01) ==
LOC: WC 11:00
PROVIDERS: PCP Internal Medicine; Referring Provider Internal Medicine; Visit Provider Internal Medicine
DX: Z09 Encounter for follow-up examination after completed treatment for conditions other than malignant neoplasm (principal); E11.9 Type 2 diabetes mellitus without complications; M79.89 Other specified soft tissue disorders
CPT/HCPCS: 99213; G0463

== ENCOUNTER → 2023-08-08 | Outpatient (CLI) | payer MEDICARE, BC, SELFPAY ==
[2023-08-08 10:07] LABS: Absolute Lymphocyte Count 1.68 X10^3/uL (0.83-4.51); Absolute Neutrophil Count 3.9 X10^3/uL (2.0-7.7); Basophil# 0.12 X10^3/uL; Basophil% 1.8 % (0-1); Eosinophil# 0.29 X10^3/uL; Eosinophils% 4.4 % (0-5); Hematocrit 43.6 % (40-54); Hemoglobin 15.1 g/dL (13.0-16.5); Lymphocyte # 1.68 X10^3/ul (0.83-4.51); Lymphocyte % 25.6 % (19-41); Mean Corp Hgb Conc 34.6 g/dL (32-36); Mean Corpuscular Hgb 33.6 pg (27.0-32.0); Mean Corpuscular Volume 97.1 fL (80-94); Mean Platelet Vol. 10.2 fl (6.2-12.0); Monocyte% 7.6 % (0-10); NRBC Flagged by Analyzer 0 % (0-5); Neutrophil # 3.94 X10^3/uL (2.7-7.7); Neutrophil % 60.3 % (47-70); Platelet Count 182 K/mm3 (150-450); RBC Distribution Width CV 13.2 % (11.6-14.6); RBC Distribution Width SD 46.4 fl (35.1-43.9); Red Blood Count 4.49 M/mm3 (4.6-6.2); White Blood Count 6.6 K/mm3 (4.4-11.0)
[2023-08-08 10:50] LABS: Vitamin D,25 Hydroxy 39.4 ng/mL
[2023-08-08 10:53] LABS: Hemoglobin A1c 6.2 % (3.8-5.6)
[2023-08-08 10:57] LABS: AST(SGOT) 31 U/L (15-37); Alanine Aminotransfer ALT/SGPT 40 U/L (16-61); Albumin, Serum 3.6 g/dL (3.2-5.0); Alkaline Phosphatase 99 U/L (45-117); Anion Gap 2 (5-15); BUN 20 mg/dL (7-18); BUN/Creat Ratio 16.4 RATIO (10-20); Calcium,Total 9.2 mg/dL (8.5-10.1); Chloride 108 mmol/L (98-107); Cholesterol 171 mg/dL (200); Creatinine, Serum 1.22 mg/dL (0.70-1.30); EST Glomerular Filtration Rate 62 mL/min (>60); Est Glom Filt Rate - Afr Amer 75 mL/min (>60); Free T3 2.2 pg/mL (2.18-3.98); Globulin 3.7 g/dL (2.2-4.2); Glucose 145 mg/dL (74-106); High Density Lipoprotein 38 mg/dL; PSA,Total - Annual Screen 0.56 ng/mL (0.00-4.00); Potassium 4.2 mmol/L (3.5-5.1); Protein, Total 7.3 g/dL (6.4-8.2); Sodium Level 138 mmol/L (136-145); T4 Free Direct 1.11 ng/dL (0.76-1.46); Triglycerides 269 mg/dL; Very Low Density Lipoprotein 54 mg/dL (5-40)
== END | disposition home or self-care (01) ==
PROVIDERS: PCP Internal Medicine; Referring Provider Internal Medicine; Visit Provider Internal Medicine
DX: E55.9 Vitamin D deficiency, unspecified (principal); J44.9 Chronic obstructive pulmonary disease, unspecified; D45 Polycythemia vera; E11.9 Type 2 diabetes mellitus without complications; E03.9 Hypothyroidism, unspecified; E78.5 Hyperlipidemia, unspecified; I10 Essential (primary) hypertension; I25.10 Atherosclerotic heart disease of native coronary artery without angina pectoris; G47.33 Obstructive sleep apnea (adult) (pediatric); Z12.5 Encounter for screening for malignant neoplasm of prostate
CPT/HCPCS: 36415; 80053; 80061; 82306; 83036; 84153; 84439; 84443; 84481; 85025; G0103

== ENCOUNTER → 2024-04-07 | Outpatient (CLI) | payer MEDICARE, BC, SELFPAY ==
[2024-04-07 09:18] LABS: Absolute Lymphocyte Count 1.82 X10^3/uL (0.83-4.51); Absolute Neutrophil Count 3.2 X10^3/uL (2.0-7.7); Basophil% 1.7 % (0-1); Eosinophil# 0.24 X10^3/uL; Eosinophils% 4.1 % (0-5); Hemoglobin 15.2 g/dL (13.0-16.5); Lymphocyte # 1.82 X10^3/ul (0.83-4.51); Lymphocyte % 31.2 % (19-41); Mean Corp Hgb Conc 35.3 g/dL (32-36); Mean Corpuscular Hgb 33.7 pg (27.0-32.0); Mean Corpuscular Volume 95.3 fL (80-94); Mean Platelet Vol. 9.9 fl (6.2-12.0); Monocyte# 0.45 X10^3/uL; Monocyte% 7.7 % (0-10); NRBC Flagged by Analyzer 0 % (0-5); Platelet Count 155 K/mm3 (150-450); RBC Distribution Width CV 13.3 % (11.6-14.6); RBC Distribution Width SD 46.2 fl (35.1-43.9); Red Blood Count 4.51 M/mm3 (4.6-6.2); White Blood Count 5.8 K/mm3 (4.4-11.0)
[2024-04-07 09:50] LABS: Vitamin D,25 Hydroxy 28.4 ng/mL
[2024-04-07 10:02] LABS: AST(SGOT) 42 U/L (15-37); Alanine Aminotransfer ALT/SGPT 62 U/L (16-61); Albumin, Serum 3.7 g/dL (3.2-5.0); Alkaline Phosphatase 87 U/L (45-117); Anion Gap 5 (5-15); BUN 22 mg/dL (7-18); BUN/Creat Ratio 17.1 RATIO (10-20); Calcium,Total 9.1 mg/dL (8.5-10.1); Chloride 106 mmol/L (98-107); Cholesterol 189 mg/dL (200); Creatinine, Serum 1.29 mg/dL (0.70-1.30); EST Glomerular Filtration Rate 58 mL/min (>60); Est Glom Filt Rate - Afr Amer 71 mL/min (>60); Free T3 2.3 pg/mL (2.18-3.98); Globulin 3.7 g/dL (2.2-4.2); Glucose 157 mg/dL (74-106); Hemoglobin A1c 6.5 % (3.8-5.6); High Density Lipoprotein 38 mg/dL; Magnesium 2.3 mg/dL (1.6-2.6); Potassium 4.1 mmol/L (3.5-5.1); Protein, Total 7.4 g/dL (6.4-8.2); Sodium Level 139 mmol/L (136-145); T4 Free Direct 1.18 ng/dL (0.76-1.46); Thyroid Stim Hormone (TSH) 0.67 uIU/mL (0.358-3.74); Triglycerides 280 mg/dL; Very Low Density Lipoprotein 56 mg/dL (5-40)
== END | disposition home or self-care (01) ==
PROVIDERS: PCP Internal Medicine; Referring Provider Internal Medicine; Visit Provider Internal Medicine
DX: E78.2 Mixed hyperlipidemia (principal); E11.9 Type 2 diabetes mellitus without complications; E03.9 Hypothyroidism, unspecified; I10 Essential (primary) hypertension; I25.10 Atherosclerotic heart disease of native coronary artery without angina pectoris; G47.33 Obstructive sleep apnea (adult) (pediatric); E55.9 Vitamin D deficiency, unspecified; Z95.5 Presence of coronary angioplasty implant and graft
CPT/HCPCS: 36415; 80053; 80061; 82306; 83036; 83735; 84439; 84443; 84481; 85025

== ENCOUNTER → 2024-08-31 | Outpatient (CLI) | payer MEDICARE, BC, SELFPAY ==
[2024-08-31 09:28] LABS: Bacteria 0 SEEN /hpf (None Seen); Mucous, Urine 0 SEEN /hpf (<or=2+); Red Blood Cells-Urine 0 SEEN /hpf (0-5); Squamous Epithelial Cells - UA 0 SEEN /hpf (0-5); White Blood Cells 0 SEEN /hpf (0-5)
[2024-08-31 09:50] LABS: Absolute Lymphocyte Count 1.86 X10^3/uL (0.83-4.51); Absolute Neutrophil Count 3.1 X10^3/uL (2.0-7.7); Basophil# 0.09 X10^3/uL; Basophil% 1.5 % (0-1); Eosinophil# 0.23 X10^3/uL; Eosinophils% 3.9 % (0-5); Hematocrit 44.9 % (40-54); Hemoglobin 15.7 g/dL (13.0-16.5); Lymphocyte # 1.86 X10^3/ul (0.83-4.51); Lymphocyte % 31.6 % (19-41); Mean Corpuscular Hgb 34.1 pg (27.0-32.0); Mean Corpuscular Volume 97.4 fL (80-94); Mean Platelet Vol. 9.9 fl (6.2-12.0); Monocyte# 0.56 X10^3/uL; Monocyte% 9.5 % (0-10); NRBC Flagged by Analyzer 0 % (0-5); Neutrophil # 3.13 X10^3/uL (2.7-7.7); Neutrophil % 53.2 % (47-70); Platelet Count 144 K/mm3 (150-450); RBC Distribution Width CV 13.7 % (11.6-14.6); RBC Distribution Width SD 48.5 fl (35.1-43.9); Red Blood Count 4.61 M/mm3 (4.6-6.2); White Blood Count 5.9 K/mm3 (4.4-11.0)
[2024-08-31 09:59] LABS: Color, Urine Yellow (Yellow); Glucose, Dipstick Normal (Normal); Ketone-Dipstick Negative (Negative); Leukocyte Esterase-Dipstick Negative /ul (Negative); Nitrite-Dipstick Negative (Negative); Occult Blood-Urine Negative /ul (Negative); Protein-Dipstick Negative (Negative); Urine Bilirubin Dipstick Negative (Negative); Urine Clarity Clear (Clear); Urine Urobilinogen Normal (Normal)
[2024-08-31 10:18] LABS: Vitamin D,25 Hydroxy 24.9 ng/mL
[2024-08-31 10:42] LABS: Hemoglobin A1c 7.3 % (3.8-5.6)
[2024-08-31 10:51] LABS: Microalbumin,Random Urine 5.1 mg/L (NO RANGE EST.); Microalbumin:Creatinine Ratio 4.2 mg/g CRE (<30 mg/g CRE)
[2024-08-31 11:11] LABS: ALB/GLOB Ratio 1.1 RATIO (0.9-2.4); AST(SGOT) 48 U/L (15-37); Alanine Aminotransfer ALT/SGPT 68 U/L (16-61); Albumin, Serum 3.6 g/dL (3.2-5.0); Alkaline Phosphatase 86 U/L (45-117); Anion Gap 9 (5-15); BUN 16 mg/dL (7-18); BUN/Creat Ratio 13.9 RATIO (10-20); Chloride 105 mmol/L (98-107); Cholesterol 179 mg/dL (200); Creatinine, Serum 1.15 mg/dL (0.70-1.30); EST Glomerular Filtration Rate 67 mL/min (>60); Est Glom Filt Rate - Afr Amer 81 mL/min (>60); Globulin 3.4 g/dL (2.2-4.2); Glucose 180 mg/dL (74-106); High Density Lipoprotein 36 mg/dL; PSA,Total - Annual Screen 0.36 ng/mL (0.00-4.00); Sodium Level 137 mmol/L (136-145); T4 Free Direct 1.19 ng/dL (0.76-1.46); Thyroid Stim Hormone (TSH) 0.828 uIU/mL (0.358-3.740); Triglycerides 360 mg/dL; Very Low Density Lipoprotein 72 mg/dL (5-40)
== END | disposition home or self-care (01) ==
PROVIDERS: PCP Internal Medicine; Referring Provider Internal Medicine; Visit Provider Internal Medicine
DX: I25.10 Atherosclerotic heart disease of native coronary artery without angina pectoris (principal); E11.65 Type 2 diabetes mellitus with hyperglycemia; Z13.220 Encounter for screening for lipoid disorders; E03.9 Hypothyroidism, unspecified; E78.2 Mixed hyperlipidemia; I10 Essential (primary) hypertension; Z12.5 Encounter for screening for malignant neoplasm of prostate; E55.9 Vitamin D deficiency, unspecified
CPT/HCPCS: 36415; 80053; 80061; 81001; 82043; 82306; 82570; 83036; 84153; 84439; 84443; 84481; 85025; G0103

== ENCOUNTER → 2024-12-08 | Outpatient (CLI) | payer MEDICARE, BC, SELFPAY ==
--- NOTE | 2024-12-13 07:13 | STRESSREP ---
Stress Test Report Pharmacologic myocardial perfusion stress test. 69-year-old man with a history of coronary artery disease and stenting Resting EKG demonstrates sinus rhythm with a rate of 64 bpm. Resting blood pressure is 148/82 mmHg. 0.4 mg of regadenoson was infused per usual protocol followed by rapid intravenous saline flush injection. Continuous EKG monitoring was performed. The maximum heart rate was 78 bpm which was 52% of max impacted heart rate the maximum workload was 1 metabolic equivalent. At rest there were no ST or T wave changes noted to suggest ischemia and at peak infusion nonspecific ST changes were noted which did not meet the criteria for ischemia. No clinical angina is noted. The final blood pressure was 132/72 mmHg. Myocardial perfusion protocol. 14.8 mCi of technetium 99m sestamibi was injected at rest. 0.4 mg of regadenoson was infused per usual protocol. At peak infusion 45 mCi of technetium 99m sestamibi was injected stress images were obtained stress and rest images were reconstructed and compared in the short axis vertical long and horizontal long axis. Gated images were also obtained. Perfusion SPECT analysis: Review of the stress images demonstrate normal uptake of tracer noted in all areas of the myocardium. The resting images similar demonstrated normal uptake of tracer noted in all areas of the myocardium. No areas of reversibility are noted to suggest ischemia and no previous infarct is noted. Gated SPECT analysis: The gated ejection fraction is 78%. Conclusion: Normal pharmacologic myocardial perfusion stress test. Preserved ejection fraction.
== END | disposition home or self-care (01) ==
PROVIDERS: PCP Internal Medicine; Referring Provider Internal Medicine Cardiovascular Disease; Visit Provider Internal Medicine Cardiovascular Disease
DX: I25.10 Atherosclerotic heart disease of native coronary artery without angina pectoris (principal); R06.09 Other forms of dyspnea; Z95.5 Presence of coronary angioplasty implant and graft; E78.2 Mixed hyperlipidemia
CPT/HCPCS: 78452; 93017; A9500; A4216; J2785

== ENCOUNTER → 2025-01-14 | Outpatient (CLI) | payer MEDICARE, BC, SELFPAY ==
[2025-01-14 13:25] LABS: ALB/GLOB Ratio 1.4 RATIO (0.9-2.4); AST(SGOT) 40 U/L (<=37); Alanine Aminotransfer ALT/SGPT 55 U/L (<=46); Alkaline Phosphatase 85 U/L (40-129); Anion Gap 11 (5-15); BUN 18 mg/dL (4-19); BUN/Creat Ratio 17.1 RATIO (10-20); Calcium,Total 9.3 mg/dL (7.6-11.0); Carbon Dioxide 21.6 mmol/L (21.0-32.0); Chloride 104 mmol/L (98-108); Creatinine, Serum 1.07 mg/dL (0.70-1.20); EST Glomerular Filtration Rate 74 (>60); Globulin 2.9 g/dL (2.2-4.2); Glucose 178 mg/dL (70-99); Potassium 4.2 mmol/L (3.3-5.1); Sodium Level 137 mmol/L (133-145); Total Bilirubin 0.39 mg/dL (0.00-1.30)
[2025-01-14 13:37] LABS: Hemoglobin A1c 7.5 % (<=5.6)
== END | disposition home or self-care (01) ==
LOC: BIMLAB 09:20
PROVIDERS: PCP Internal Medicine; Referring Provider Internal Medicine; Visit Provider Internal Medicine
DX: E11.65 Type 2 diabetes mellitus with hyperglycemia (principal)
CPT/HCPCS: 36415; 80053; 83036

== ENCOUNTER → 2025-05-17 | Outpatient (CLI) | payer MEDICARE, BC, SELFPAY ==
--- NOTE | 2025-05-17 09:20 | RAD_ITS ---
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 There is partial subluxation of the 2nd metatarsophalangeal articulation, with degenerative change, and medial deviation. Soft tissue swelling is visible in the metatarsophalangeal region on the lateral view. Mineralization is normal. Vascular calcifications are visible. 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 There is partial subluxation of the 2nd metatarsophalangeal articulation, with degenerative change, and medial deviation. Soft tissue swelling is visible in the metatarsophalangeal region on the latera l view. Reading Location: [facility]
[2025-05-17 10:11] LABS: Hematocrit 44.8 % (40-54); Hemoglobin 15.8 g/dL (13.0-16.5); Immature Granulocytes Count 0.020 X10^3/uL (0.0-0.0); Mean Corp Hgb Conc 35.3 g/dL (32-36); Mean Corpuscular Volume 97.8 fL (80-94); Mean Platelet Vol. 9.7 fl (6.2-12.0); NRBC Flagged by Analyzer 0 % (0-5); Platelet Count 128 K/mm3 (150-450); RBC Distribution Width CV 13.5 % (11.6-14.6); RBC Distribution Width SD 47.6 fl (35.1-43.9); Red Blood Count 4.58 M/mm3 (4.6-6.2); White Blood Count 6.0 K/mm3 (4.4-11.0)
[2025-05-17 11:07] LABS: AST(SGOT) 36 U/L (<=37); Alanine Aminotransfer ALT/SGPT 51 U/L (<=46); Albumin, Serum 4.1 g/dL (3.4-4.8); Alkaline Phosphatase 80 U/L (40-129); Anion Gap 13 (5-15); BUN 20 mg/dL (4-19); BUN/Creat Ratio 18.2 RATIO (10-20); Calcium,Total 9.7 mg/dL (7.6-11.0); Carbon Dioxide 23.6 mmol/L (21.0-32.0); Chloride 105 mmol/L (98-108); Free T3 2.3 pg/mL (2.18-3.98); Globulin 2.9 g/dL (2.2-4.2); Glucose 156 mg/dL (70-99); Potassium 4.3 mmol/L (3.3-5.1); Vitamin B12 482 pg/mL (180-914); Vitamin D,25 Hydroxy 23.0 ng/mL (30-100)
[2025-05-17 11:23] LABS: CRP < 3.00 mg/L (0.0-3.0)
== END | disposition home or self-care (01) ==
LOC: MTLAB 08:04
PROVIDERS: PCP Internal Medicine; Referring Provider Internal Medicine; Visit Provider Internal Medicine
DX: S90.934A Unspecified superficial injury of right lesser toe(s), initial encounter (principal); M86.9 Osteomyelitis, unspecified; J44.9 Chronic obstructive pulmonary disease, unspecified; E66.813 Obesity, class 3; Z68.41 Body mass index [BMI] 40.0-44.9, adult; E11.69 Type 2 diabetes mellitus with other specified complication; E11.65 Type 2 diabetes mellitus with hyperglycemia; L08.9 Local infection of the skin and subcutaneous tissue, unspecified; E03.9 Hypothyroidism, unspecified; E78.2 Mixed hyperlipidemia; I10 Essential (primary) hypertension; I25.10 Atherosclerotic heart disease of native coronary artery without angina pectoris; E53.8 Deficiency of other specified B group vitamins; E55.9 Vitamin D deficiency, unspecified
CPT/HCPCS: 36415; 73630; 80053; 82306; 82607; 83036; 84439; 84443; 84481; 85025; 85652; 86140

== ENCOUNTER → 2025-09-21 | Outpatient (CLI) | payer MEDICARE, BC, SELFPAY ==
--- OUTSIDE RECORDS SUMMARY | 2025-09-21 11:00 | XMS RPT_ITS | CCD ---
Author Organization [facility] Care Team Providers Care Dispatcher Refinery Name Role Phone Dr. Mohinder Quick Primary Care Provider Dr. Mohinder Quick Referring Provider [phone] Kimi PEANUT BLANCHER, PEANUT BLANCHER-C Eliseo Atkins Attending Provider Dr. Ira Quiñonez Attending Provider 1([facility])- Dr. Mohinder Quick Attending Provider [phone] Peyman LOWE, PEANUT BLANCHER-C Toma Attending Provider Dr. Mohinder Quick Primary Care Provider Dr. Mohinder Quick Referring Provider [phone] Dr. Ira Quiñonez Attending Provider 1([facility])- 25 Sebastien Stahl MD Primary Care Provider [phone] Rosita SINGLETON, Christel Unavailable Unavailable Dr. Mohinder Quick Primary Care Provider Dr. Mohinder Quick Referring Provider [phone] Dr. Ira Quiñonez Attending Provider 1([facility])- 25 Kimi LOWE, MYNOR-C Eliseo Atkins Attending Provider Dr. Mohinder Quick Primary Care Provider Dr. Mohinder Quick Referring Provider [phone] Dr. Mohinder Quick Attending Provider [phone] Sebastien Stahl MD Primary Care Provider [phone] Rosita SINGLETON, Christel Unavailable Unavailable Dr. Mohinder Quick Primary Care Provider Dr. Mohinder Quick Referring Provider [phone] Dr. Ira Quiñonez Attending Provider [phone] Dr. Mohinder Quick Primary Care Provider Dr. Mohinder Quick Referring Provider [phone] Dr. Ira Quiñonez Attending Provider [phone] Dr. Mohinder Quick Primary Care Provider Dr. Mohinder Quick Referring Provider [phone] Dr. Ira Quiñonez Attending Provider [phone] Morales Storey Attending Provider Dr. Mohinder Quick Primary Care Provider Dr. Mohinder Quick Referring Provider [phone] [facility] PEANUT BLANCHER, PEANUT BLANCHER-C Eliseo Atkins Attending Provider Dr. Mohinder Quick Attending Provider [phone] Dr. Ira Quiñonez Attending Provider [phone] Dr. Morales Storey Attending Provider Dr. Scott Wen Emergency Provider [phone] Dr. Shannan Acosta Admit Provider Dr. Shannan Acosta Attending Provider Dr. Shannan Acosta Other Provider Dr. Bakari Solis Other Provider Dr. Laurie Duran Attending Provider Dr. Waylon Novak Attending Provider Dr. Rafael Torres Attending Provider Dr. Mauri Dumas Other Provider Rissa Galicia Other Provider Unavailable Dr. Morales Storey Other Provider Dr. Mino Ramos Other Provider Dr. Griffin Ruiz Other Provider Dr. Sean Owens Other Provider Unavail nik Morley PEANUT BLANCHER, PEANUT BLANCHER-C Toma Other Provider Dr. Vincent Cabrera Other Provider Dr. Laurie Duran Other Provider Dr. Anshul Arboleda Other Provider Unavaila Dr. Florencio Bullard Other Provider Dr. Vincent Cabrera Attending Provider Dr. Ed Ann Attending Provider Dr. Mohinder Quick Primary Care Provider Dr. Mohinder Quick Referring Provider [phone] Dr. Mohinder Quick Attending Provider [phone] Dr. Laurie Duran Referring Provider Dr. Mohinder Quick Primary Care Provider Dr. Mohinder Quick Referring Provider [phone] Dr. Ira Quiñonez Attending Provider Sebastien Stahl MD Primary Care Provider Rosita SINGLETON, Christel Unavailable Unavailable Dr. Mohinder Quick Primary Care Provider Dr. Mohinder Quick Referring Provider [phone] Dr. Ira Quiñonez Attending Provider [phone] Scott Wen Emergency Provider [phone] Dr. Shannan Acosta Admit Provider Dr. Shannan Acosta Attending Provider Dr. Shannan Acosta Other Provider Dr. Bakari Solis Other Provider Dr. Laurie Duran Attending Provider Dr. Waylon Novak Attending Provider Dr. Laurie Duran Referring Provider Dr. Rafael Torres Attending Provider Dr. Mauri Dumas Other Provider Rissa Galicia Other Provider Unavailable Dr. Morales Storey Attending Provider Dr. Morales Storey Other Provider Dr. Mino Ramos Other Provider Dr. Griffin Ruiz Other Provider Dr. Sean Owens Other Provider Unavailab nik Morley NP, PEANUT BLANCHER-C Toma Other Provider Dr. Vincent Cabrera Other Provider Roger, Dr. Sullivan Other Provider Dr. Anshul Arboleda Other Provider Unavaila Dr. Florencio Bullard Other Provider Dr. Vincent Cabrera Attending Provider Dr. Ed Ann Attending Provider Dr. Mohinder Quick Attending Provider [phone] Peyman PEANUT BLANCHER, PEANUT BLANCHER-C Toma Attending Provider [phone] Melvin PEANUT BLANCHER, PEANUT BLANCHER-C Stephanie Attending Provider Mohinder Quick MD Primary Care Provider Brice SINGLETON, Larisa Unavailable Unavailable Prosper MICHELLE, Goyo Aquino Unavailable Mohinder Quick MD Unavailable Dr. Mohinder Quick Primary Care Provider Dr. Mohinder Quick Referring Provider [phone] Peyman PEANUT BLANCHER, PEANUT BLANCHER-C Toma Attending Provider [phone] Melvin LOWE, PEANUT BLANCHER-C Stephanie Attending Provider Dr. Mohinder Quick Attending Provider [phone] Dr. Ira uQiñonez Attending Provider Madiha Burgess Attending Provider Unavailable Dr. Jyoti Frost Attending Provider [phone] Dr. Jyoti Frost Other Provider [phone] Dr. Mohinder Quick Primary Care Provider Dr. Mohinder Quick Attending Provider Dr. Mohinder Quikc Referring Provider Melvin LOWE, PEANUT BLANCHERFerozC Stephanie Attending Provider Rosita RN, Christel Unavailable Unavailable Dr. Mohinder Quick Primary Care Provider Dr. Moihnder Quick Referring Provider Dr. Ira Quiñonez Attending Provider Dr. Mohinder Quick Attending Provider Ynes MICHELLE, Mohinder Wolf Primary Care Provider [phone] Mohinder Quick MD Unavailable Ynes MICHELLE, Mohinder Wolf Primary Care Provider [phone] Dr. Mohinder Quick MD Primary Care Provider Dr. Mohinder Quick MD Attending Provider Dr. Mohinder Quick MD Referring Provider Dr. Rafael Torres MD Attending Provider Khang BUSH, Dr. Roth Attending Provider [phone] Brian MICHELLE, Dr. Hall Referring Provider [phone] Dr. Rafael Torres MD Other Provider GOYO CHENG Attending Unavailable MOHINDER QUICK Primary Care Unavailable GOYO CHENG Attending Unavailable MOHINDER QUICK Primary Care Unavailable Dr. Mohinder Quick MD Primary Care Provider Dr. Mohinder Quick MD Referring Provider Peyman LOWE-Toma Khoury Attending Provider Dr. Mohinder Quick MD Attending Provider Dr. Mohinder Quick MD Primary Care Provider Dr. Mohinder Quick MD Referring Provider Rafael Torres Referring Unavailable Rafael Torres Attending Unavailable Mohinder Quick Primary Care Unavailable Ynes, Mohinder Primary Care Unavailable Ynes, Mohinder Attending Unavailable Ynes, Mohinder Attending Unavailable Ynes, Mohinder Referring Unavailable Ynes, Mohinder Primary Care Unavailable Ynes, Mohinder Primary Care Unavailable Ynes, Mohinder Attending Unavailable Ynes, Mohinder Referring Unavailable Ynes, Mohinder Attending Unavailable Ynes, Mohinder Referring Unavailable Ynes, Mohinder Primary Care Unavailable Ynes, Mohinder Primary Care Unavailable Brian, Rafael Attending Unavailable Ynes, Mohinder Referring Unavailable Ynes, Mohinder Primary Care Unavailable Ira Quiñonez Attending Unavailable Ynes, Mohinder Referring Unavailable Ynes, Mohinder Attending Unavailable Ynes, Mohinder Primary Care Unavailable Peyman PEANUT BLANCHER, Toma Attending Unavailable Ynes, Mohinder Referring Unavailable Ynes, Mohinder Primary Care Unavailable Ynes, Mohinder Attending Unavailable Ynes, Mohinder Primary Care Unavailable Ynes, Mohinder Primary Care Unavailable Peyman PEANUT BLANCHER, Toma Attending Unavailable Ynes, Mohinder Referring Unavailable Brian, Lytle Referring Unavailable Brian, Rafael Consulting Unavailable Brian, Rafael Attending Unavailable Ynes, Mohinder Primary Care Unavailable MASCI, MOSES A Referring Unavailable YNES, MOHINDER M Primary Care Unavailable MASCI, MOSES A Referring Unavailable YNES, MOHINDER M Primary Care Unavailable MASCI, MOSES A Referring Unavailable YNES, MOHINDER M Primary Care Unavailable MASCI, MOSES A Referring Unavailable YNES, MOHINDER M Primary Care Unavailable MASCI, MOSES A Referring Unavailable YNES, MOHINDER M Primary Care Unavailable MASCI, MOSES A Attending Unavailable MASCI, MOSES A Referring Unavailable YNES, MOHINDER M Primary Care Unavailable MASCI, MOSES A Referring Unavailable YNES, MOHINDER M Primary Care Unavailable LINSEY GARBER Attending Unavailable YNES, MOHINDER M Primary Care Unavailable MASCI, MOSES A Referring Unavailable YNES, MOHINDER M Primary Care Unavailable MASCI, MOSES A Referring Unavailable YNES, MOHINDER M Primary Care Unavailable GARBERLINSEY Attending Unavailable YNES, MOHINDER M Primary Care Unavailable Allergies Allergy Classification Reported Allergen(s) Allergy Type Date of Onset Reaction(s) Facility Chocolate (1 source) Chocolate Food Allergy 1 Shortness of Breath [facility] cow milk allergenic extract (1 source) cow milk allergenic extract Drug Allergy 8 Shortness of Breath [facility] fennel seed preparation (1 source) fennel seed preparation Drug Allergy 7 Shortness of Breath [facility] peanut allergenic extract (1 source) peanut allergenic extract Drug Allergy 1 Shortness of Breath [facility] SITagliptin (1 source) SITagliptin Drug Allergy 1 Rash [facility] Theophylline (1 source) Theophylline Drug Allergy 6 Intolerance [facility] Work Phone: (20 sources) SITagliptin; Translations: [SITAGLIPTIN] Drug Allergy 1 Rash [facility] Comment on above: itching (20 sources) Theophylline; Translations: [THEOPHYLLINE] Drug Allergy 6 Intolerance [facility] Work Phone: Comment on above: LETHARGY, MUSCLE REGISTERED NURSE NURSERY [facility] (20 sources) Chocolate; Translations: [CHOCOLATE] Food Allergy 1 Shortness of Breath [facility] (20 sources) cow milk allergenic extract; Translations: [MILK] Drug Allergy 8 Shortness of Breath [facility] (20 sources) fennel seed preparation; Translations: [FENNEL SEED] Drug Allergy 7 Shortness of Breath [facility] (14 sources) environmental [Other] Propensity to adverse reactions 9 [facility] Work Phone: (11 sources) Chocolate; Translations: [chocolate flavor] Propensity to adverse reactions 3 Shortness of breath [facility] (20 sources) peanut allergenic extract; Translations: [PEANUT] Drug Allergy 1 Shortness of Breath [facility] (3 sources) peanut oil Drug Allergy 5 Breathing problems [facility] Comment on above: Peanut butter (1 source) Milk Drug allergy (disorder) 5 [facility] Repository (1 source) peanut allergenic extract Drug Allergy 5 [facility] Repository (1 source) SITagliptin Drug Allergy 5 [facility] Repository (1 source) Theophylline Drug Allergy [facility] Repository Medications Current Medications Medication Drug Class(es) Dates Sig (Normalized) Sig (Original) [id number] 200 actuat albuterol 0.09 mg/actuat metered dose inhaler (3 sources) beta2-Adrenergic Agonist Start: 06-28-2024 Albuterol Sulfate (Ventolin Hfa) 90 mcg/actuation HFA aerosol inhaler Active 2 NMA INHALATION Q4H as needed for shortness of breath or wheezing 18 June 28, 2024 12:00am aspirin 81 mg delayed release oral tablet (20 sources) Platelet Aggregation Inhibitor, Nonsteroidal Anti-inflammatory Drug Start: 11-23-2022 End: 12-14-2022 take 1 tablet by mouth twice daily aspirin, enteric coated (ASPIRIN, ENTERIC COATED) 81 mg EC tablet Take 1 tablet by mouth twice daily for 21 days. 42 tablet 11/23/2022 Active Start: 03-17-2016 take 1 tablet by josué th once daily Aspirin 81 MG tablet,chewable Active 81 mg PO DAILY@0800 March 17, 2016 12:00am ANTIPLATELET take 1 tablet by josué th once daily Aspirin 81 mg Tab Indications: Polycythemia Take 81 mg by mouth once daily. 0 Active Comment on above: Take 81 mg by mouth once daily. Take 1 tablet by josué th twice daily for 21 days. doxycycline monohydrate 100 mg oral capsule (20 sources) Tetracycline-class Drug Start: 11-09-2024 Doxycycline Monohydrate 100 mg capsule Active mg PO November 09, 2024 1:00am Start: 01-21-2023 End: 12-20-2024 take 1 capsule by mouth twice daily Doxycycline Monohydrate 100 mg Capsule Discontinued 100 mg PO TWICE A DAY January 30, 2023 12:00am April 26, 2024 2:20pm Start: 11-05-2019 End: 03-05-2020 take 1 tablet by mouth twice daily Doxycycline Hyclate 100 mg tablet Discontinued 100 mg PO TWICE A DAY November 05, 2019 1:00am March 05, 2020 12:56pm Comment on above: Take 1 capsule by mo ut twice daily. Take 1 capsule by mo ut two times a day. furosemide 20 mg oral tablet (20 sources) Loop Diuretic Start: 06-17-2024 take 1 tablet by mouth once daily Furosemide 20 mg tablet Active 20 mg PO daily 90 June 17, 2024 12:00am Start: 10-27-2023 End: 06-17-2024 Furosemide 40 mg tablet Disc ontinued 20 mg PO DAILY 90 October 27, 2023 5:50pm June 17, 2024 4:57pm Start: 12-12-2022 End: 10-27-2023 take 1 tablet by mouth once daily Furosemide 40 mg tablet Discontinued 40 mg PO DAILY 90 3 May 20, 2023 9:23am October 27, 2023 5:51pm Start: 08-13-2017 End: 10-05-2022 take 1 tablet by mouth once daily Furosemide 40 mg tablet Discontinued 40 mg PO DAILY 90 3 March 12, 2021 9:56am March 25, 2022 3:01pm LEG edema Comment on above: Take 40 mg by mouth once daily. gabapentin 100 mg oral capsule (20 sources) Anti-epileptic Agent Start: 10-13-2023 End: 10-11-2024 take 1 capsule by mouth in the morning, then take 3 capsules by mouth at bedtime Gabapentin 100 mg capsule Active 0 PO .COMPLEX 360 October 11, 2024 11:59am Neuropathy orally; 100 mg each a.m. and 300 mg at at bedtime. Start: 10-05-2022 take 300 mg by mouth at bedtim e Gabapentin Active 300 MG PO AT BEDTIME October 05, 2022 12:00am Start: 10-05-2022 End: 10-13-2023 take 3 tablets by mouth at bedtime Gabapentin 100 mg Tablet Discontinued 300 mg PO AT BEDTIME October 05, 2022 1:00am October 13, 2023 11:12am Neuropathy Start: 05-11-2020 End: 09-08-2023 Gabapentin 100 mg capsule Discontinued 100 mg PO .COMPLEX 450 June 11, 2022 10:25am September 13, 2022 10:39am 100 mg PO; one in am, one in afternoon, and three in the evening Start: 07-13-2019 End: 05-11-2020 take 1 capsule by mouth three times daily Gabapentin 100 mg capsule Discontinued 100 mg PO THREE TIMES A DAY July 13, 2019 12:00am May 11, 2020 2:25pm Start: 07-13-2019 End: 10-11-2024 take 1 capsule by mouth once daily in the morning Gabapentin 100 mg capsule Discontinued 100 mg PO EVERY MORNING 90 1 September 15, 2023 12:37pm October 13, 2023 11:12am Neuropathy Comment on above: Take one capsule in AM, one capsule at 1PM & three capsules at bedtime. Handicap placard (3 sources) Start: 10-27-2023 Handicap placard Active 0 .Route .MEDSUPPLY 1 October 27, 2023 1:00am Debility Dyspnea on exertion Other malaise Other forms of dyspnea 5 year RX 10/27/23-10/27/28 DX R53.81 and R06.09 Start: 10-27-[address] Active 0 .Route .MEDSUPPLY October 27, 2023 1:00am 5 year RX 10/27/23-10/27/28 DX R53.81 and R06.09 hydroxyurea 500 mg oral capsule (20 sources) Antimetabolite Start: 04-22-2025 take 1 capsule by mouth once daily hydroxyurea (HYDREA) 500 mg capsule Indications: Secondary polycythemia Take 1 capsule by mouth once daily. 90 capsule 3 04/22/2025 Active Start: 10-04-2018 End: 04-21-2025 take 1 capsule by mouth once daily Hydroxyurea 500 mg capsule Active 500 mg PO DAILY December 17, 2018 10:20am Cheyenne Espinoza Start: 10-04-2018 End: 12-17-2018 take 1 capsule by mouth twice daily Hydroxyurea 500 MG capsule Discontinued 500 mg PO TWICE A DAY October 04, 2018 1:00am December 17, 2018 10:21am Comment on above: Take 1 capsule by [facility] once daily. Lactobacillus Combination No.8 (Adult Probiotic) 3 billion cell capsule (20 sources) Start: take 3 capsules by mouth once daily Lactobacillus Combination No.8 (Adult Probiotic) 3 billion cell capsule Active 3000 MMU CELLS PO DAILY February 08, 2021 10:09am administer with a meal Start: 02-08-2021 End: 11-07-2022 take 3 capsules by mouth once daily Lactobacillus Combination No.8 (Adult Probiotic) 3 billion cell capsule Discontinued 3000 NMA PO DAILY February 08, 2021 12:00am November 07, 2022 8:48pm administer with a meal Start: 02-08-2021 End: 11-07-2022 take 3 capsules by mouth once daily Lactobacillus Combination No.8 (Adult Probiotic) 3 billion cell capsule Discontinued 3000 MMU CELLS PO DAILY February 07, 2021 11:00pm November 07, 2022 7:48pm administer with a meal Start: 02-08-2021 End: 11-07-2022 take 3 capsules by mouth once daily Lactobacillus Combination No.8 (Adult Probiotic) 3 billion cell capsule Discontinued 3000 MMU CELLS PO DAILY February 08, 2021 12:00am November 07, 2022 8:48pm administer with a meal Start: 02-08-2021 take 3 capsules by m outh once daily Lactobacillus Combination No.8 (Adult Probiotic) 3 billion cell capsule Active 3000 MMU CELLS PO DAILY February 07, 2021 11:00pm administer with a meal Start: 02-08-2021 take 3 capsules by m outh once daily Lactobacillus Combination No.8 (Adult Probiotic) 3 billion cell capsule Active 3000 MMU CELLS PO DAILY February 08, 2021 12:00am administer with a meal linezolid 600 mg oral tablet (5 sources) Oxazolidinone Antibacterial Start: 11-25-2022 End: 12-06-2022 take 1 tablet by mouth twice daily linezolid (ZYVOX) 600 mg tablet Take 1 tablet by mouth twice daily for 11 days. 22 tablet 0 11/25/2022 12/06/2022 Active Start: 08-09-2022 take 1 tablet by josué twice daily Linezolid (Zyvox) 600 mg tablet Active 600 MG PO TWICE A DAY August 09, 2022 12:00am start on 08/09/22 Comment on above: Take 1 tablet by josué twice daily for 11 days. menthol 0.0044 mg/mg / zinc oxide 0.206 mg/mg topical ointment (20 sources) Start: 11-14-2022 Menthol-Zinc Oxide (Calmoseptine) 0.44-20.6 % ointment in packet Active 1 APPLIC TOPICAL 4 to 6 times per day November 14, 2022 1:00am Start: 10-05-2022 Menthol-Zinc O xide Active 1 APPLIC TOPICAL THREE TIMES A DAY October 05, 2022 1:00am Apply to coccyx Start: 10-05-2022 Menthol-Zinc O xide Active 1 APPLIC TOPICAL THREE TIMES A DAY October 05, 2022 12:00am Apply to coccyx Menthol-Zinc Oxi de (CALMOSEPTINE) 0.44-20.6 % Apply 1 application to affected area every 4 hours as needed (coccxy sore). 0 Active Comment on above: Apply 1 application to affected area every 4 hours as needed (coccxy sore). Multivitamin preparation (17 sources) Start: take 1 tablet by mouth once daily Multivitamin Active 1 TABLET PO DAILY February 08, 2021 10:10am Start: 02-08-2021 End: 11-07-2022 take 1 tablet by mouth once daily Multivitamin Discontinued 1 TABLET PO DAILY February 07, 2021 11:00pm November 07, 2022 7:48pm Start: 02-08-2021 End: 11-07-2022 take 1 tablet by mouth once daily Multivitamin Discontinued 1 TABLET PO DAILY February 08, 2021 12:00am November 07, 2022 8:48pm Start: 02-08-2021 take 1 tablet by josué th once daily Multivitamin Active 1 TABLET PO DAILY February 07, 2021 11:00pm Start: 02-08-2021 take 1 tablet by josué th once daily Multivitamin Active 1 TABLET PO DAILY February 08, 2021 12:00am Balm-3 Fatty Acids (Fish Oil Concentrate) 1,000 mg capsule (20 sources) Start: 02-08-2021 take 1 capsule by mouth once daily Balm-3 Fatty Acids (Fish Oil Concentrate) 1,000 mg capsule Active 1000 MG PO DAILY February 08, 2021 10:10am Start: 02-08-2021 End: 11-07-2022 take 1 capsule by mouth once daily Balm-3 Fatty Acids (Fish Oil Concentrate) 1,000 mg capsule Discontinued 1000 mg PO DAILY February 08, 2021 12:00am November 07, 2022 8:49pm Start: 02-08-2021 End: 11-07-2022 take 1 capsule by mouth once daily Balm-3 Fatty Acids (Fish Oil Concentrate) 1,000 mg capsule Discontinued 1000 MG PO DAILY February 07, 2021 11:00pm November 07, 2022 7:49pm Start: 02-08-2021 End: 11-07-2022 take 1 capsule by mouth once daily Balm-3 Fatty Acids (Fish Oil Concentrate) 1,000 mg capsule Discontinued 1000 MG PO DAILY February 08, 2021 12:00am November 07, 2022 8:49pm Start: 02-08-2021 take 1 capsule by [facility] once daily Balm-3 Fatty Acids (Fish Oil Concentrate) 1,000 mg capsule Active 1000 MG PO DAILY February 07, 2021 11:00pm Start: 02-08-2021 take 1 capsule by [facility] once daily Balm-3 Fatty Acids (Fish Oil Concentrate) 1,000 mg capsule Active 1000 MG PO DAILY February 08, 2021 12:00am spacer (3 sources) Start: 06-28-2024 spacer Active 0 .ROUTE .MEDSUPPLY 1 0 June 28, 2024 12:00am As directed Start: 06-28-2024 spacer Active 0 .ROUTE .MEDSUPPLY 1 June 28, 2024 12:00am As directed sulfamethoxazole 800 mg / trimethoprim 160 mg oral tablet (10 sources) Dihydrofolate Reductase Inhibitor Antibacterial, Sulfonamide Antimicrobial Start: 11-14-2022 take 1 tablet by mouth twice daily Sulfamethoxazole-Trimethoprim Active 1 TABLET PO TWICE A DAY November 14, 2022 1:00am Start: 11-11-2022 End: 12-11-2022 take 1 tablet by mouth twice daily sulfamethoxazole-trimethoprim (BACTRIM D S) 800-160 mg per tablet Take 1 tablet by mouth twice daily. 60 tablet 1 11/11/2022 12/11/2022 Active Comment on above: Take 1 tablet by [facility] twice daily. (8 sources) Start: 11-07-2022 Start: 10-30-2022 End: 11-07-2022 Start: 10-05-2022 Start: 02-08-2021 End: 11-07-2022 Start: 02-08-2021 End: 11-07-2022 Start: 02-08-2021 End: 08-21-2021 Start: 02-08-2021 End: 11-07-2022 Completed/Discontinued Medications Medication Drug Class(es) Dates Sig (Normalized) Sig (Original) acetaminophen 325 mg / HYDROcodone bitartrate 5 mg oral tablet (20 sources) Opioid Agonist Start: 08-09-2022 End: 11-07-2022 Hydrocodone-Acetami nophen 5-325 mg tablet Discontinued 1 {tbl} PO EVERY 4 HOURS NEEDED as needed for Pain Score 4-10 30 7 0 September 16, 2022 November 07, 2022 8:48pm Hip pain Pain in unspecified hip Start: 08-09-2022 End: 11-07-2022 take 1 tablet by mouth every four hours as needed Hydrocodone-Acetaminophen Discontinued 1 TABLET PO EVERY 4 HOURS NEEDED 30 7 September 16, 2022 November 07, 2022 7:48pm Start: 08-09-2022 End: 11-07-2022 Start: 08-03-2022 take 1 tablet by josué th every eight hours Hydrocodone-Acetaminophen Active 1 TABLE T PO Q8H August 02, 2022 11:00pm Start: 08-03-2022 take 1 tablet by josué th every eight hours Hydrocodone-Acetaminophen (Alma) 5-325 mg Tablet Active 1 TABLET PO Q8H August 03, 2022 12:00am Start: 10-04-2018 End: 10-05-2022 Hydrocodone-Acetaminophen 1 TABLET tablet Discontinued 1 {tbl} PO EVERY 6 HOURS NEEDED as needed for Pain 10 3 0 October 04, 2018 1:00am October 06, 2018 1:00am October 07, 2018 1:10am Sprain of left hip Unspecified sprain of left hip, initial encounter Start: 10-04-2018 End: 10-07-2018 take 1 tablet by mouth every six hours as needed Hydrocodone-Acetaminophen Discontinued 1 TABLET PO EVERY 6 HOURS NEEDED 10 3 October 04, 2018 12:00am October 07, 2018 12:10am Start: 10-04-2018 End: 10-07-2018 Comment on above: Take 1 tablet by josué th every 6 hours as needed for pain. 120 actuat albuterol 0.1 mg/actuat / ipratropium bromide 0.02 mg/actuat inhalation spray (20 sources) Anticholinergic, beta2-Adrenergic Agonist Start: 03-19-2016 End: 12-04-2017 Ipratropium-Albuterol 1 PUFF inhaler Discontinued 1 NMA INHALATION 4 TIMES DAILY NEEDED as needed for Sob &/Or Wheezing 1 0 March 19, 2016 10:54am December 04, 2017 11:12am Start: 03-19-2016 End: 12-04-2017 take 1 puff(s) by inhalation four times daily as needed Ipratropium-Albuterol Discontinued 1 PUFF INHALATION 4 TIMES DAILY NEEDED 1 March 19, 2016 9:54am December 04, 2017 10:12am Start: 03-19-2016 End: 12-04-2017 amoxicillin 500 mg oral tablet (20 sources) Penicillin-class Antibacterial Start: 02-11-2023 End: 04-20-2025 Amoxicillin 500 mg tablet Take 4 tablets 1 hour prior to dental procedure. 20 tablet 02/11/2023 04/20/2025 Discontinued Comment on above: Take 4 tablets 1 divya r prior to dental procedure. apixaban 5 mg oral tablet (20 sources) Factor Xa Inhibitor Start: 06-22-2018 End: 10-04-2018 take 2 tablets by mouth twice daily, then take 1 tablet by mouth twice daily Apixaban 5 MG tablet Discontinued 10 mg PO TWICE A DAY 60 0 June 22, 2018 12:00am October 04, 2018 3:44pm 10 mg twice daily for 6 more days and then 5 mg twice daily continue for about 3-6 months Start: 06-22-2018 End: 03-05-2020 take 1 tablet by mouth twice daily Apixaban 5 MG tablet Discontinued 5 mg PO TWICE A DAY October 04, 2018 3:44pm March 05, 2020 12:57pm will stop 2 days prior Start: 06-22-2018 End: 10-04-2018 take 10 mg by mouth twice daily, then take 5 mg by mouth twice daily Apixaban Discontinued 10 MG PO TWICE A DAY 60 June 21, 2018 11:00pm October 04, 2018 2:44pm 10 mg twice daily for 6 more days and then 5 mg twice daily continue for about 3-6 months Comment on above: Take 1 tablet by josué th twice daily. Eghqe-Gadt-Jhirl-Colla g-Mv-Min (Lester (With Collagen)) 7-7-1.5 gram Powder In Packet (8 sources) Start: 11-07-2022 End: 11-14-2022 Plmdl-Qpyz-Mhjgz-Collag-Mv -Min (Lester (With Collagen)) 7-7-1.5 gram Powder In Packet Discontinued 1 NMA PO TWICE DAILY WITH MEALS 60 30 0 November 07, 2022 1:00am November 14, 2022 3:35pm Start: 11-07-2022 End: 11-14-2022 Nycly-Vyjj-Ysqpl-Collag-Mv-M in (Lester (With Collagen)) 7-7-1.5 gram Powder In Packet Discontinued 1 NMA PO TWICE DAILY WITH MEALS 60 30 November 07, 2022 1:00am November 14, 2022 3:35pm Start: 11-07-2022 End: 11-14-2022 Rdjpd-Nntl-Pwbrf-Collag-Mv-M in (Lester (With Collagen)) 7-7-1.5 gram Powder In Packet Discontinued 1 PACKET PO TWICE DAILY WITH MEALS 60 30 November 07, 2022 12:00am November 14, 2022 2:35pm Start: 11-07-2022 End: 11-14-2022 Srxdf-Kvns-Pampg-Collag-Mv-M in (Lester (With Collagen)) 7-7-1.5 gram Powder In Packet Discontinued 1 PACKET PO TWICE DAILY WITH MEALS 60 30 November 07, 2022 1:00am November 14, 2022 3:35pm atorvastatin 20 mg oral tablet (20 sources) HMG-CoA Reductase Inhibitor Start: 03-17-2016 End: 12-04-2017 take 1 tablet by mouth at bedtime Atorvastatin 20 MG tablet Discontinued 20 mg PO AT BEDTIME March 17, 2016 12:00am December 04, 2017 11:11am Start: 03-17-2016 End: 12-04-2017 azithromycin 250 mg oral tablet (20 sources) Macrolide Antimicrobial Start: 10-08-2019 End: 03-05-2020 take 1 tablet by mouth once daily Azithromycin 250 mg tablet Discontinued 250 mg PO daily 6 October 08, 2019 1:00am March 05, 2020 12:57pm 120 actuat budesonide 0.16 mg/actuat / formoterol fumarate 0.0045 mg/actuat metered dose inhaler (20 sources) Corticosteroid, beta2-Adrenergic Agonist Start: 01-01-2018 End: 06-15-2020 Budesonide-Formote rol (Symbicort) 160-4.5 mcg/actuation HFA aerosol inhaler Discontinued 2 NMA INHALATION Q12H 10.2 September 01, 2019 12:41pm June 15, 2020 11:33am SOB Start: 01-01-2018 End: 06-15-2020 take 1 puff(s) by inhalation every twelve hours Budesonide-Formoterol (Symbicort) 160-4.5 mcg/actuation HFA aerosol inhaler Discontinued 2 PUFF INHALATION Q12H 10.2 September 01, 2019 11:41am June 15, 2020 10:33am Start: 01-01-2018 End: 06-15-2020 Start: 03-19-2016 End: 01-01-2018 take 1 puff(s) by inhalation twice daily Budesonide-Formoterol Discontinued 2 PUFF INHALATION TWICE A DAY 1 March 19, 2016 10:58am January 01, 2018 1:18pm Start: 03-19-2016 End: 01-01-2018 Budesonide-Formoterol 1 INHA LER inhaler Discontinued 2 NMA INHALATION TWICE A DAY 1 0 March 19, 2016 12:00am January 01, 2018 1:18pm Start: 03-19-2016 End: 01-01-2018 Budesonide-Formoterol 1 INHA LER inhaler Discontinued 2 NMA INHALATION TWICE A DAY 1 March 19, 2016 12:00am January 01, 2018 1:18pm Start: 03-19-2016 End: 01-01-2018 Start: 03-19-2016 End: 01-01-2018 take 1 puff(s) by inhalation twice daily Budesonide-Formoterol Discontinued 2 PUFF INHALATION TWICE A DAY 1 March 18, 2016 11:00pm January 01, 2018 12:18pm Start: 03-19-2016 End: 01-01-2018 take 1 puff(s) by inhalation twice daily Budesonide-Formoterol Discontinued 2 PUFF INHALATION TWICE A DAY March 19, 2016 12:00am January 01, 2018 1:18pm busPIRone hydrochloride 5 mg oral tablet (20 sources) Start: 10-30-2022 End: 03-18-2025 take 1 tablet by mouth twice daily Buspirone 5 mg tablet Discontinued 5 mg PO TWICE A DAY 180 3 March 23, 2024 11:58am March 18, 2025 12:09pm Start: 10-30-2022 End: 01-30-2023 take 7.5 mg by mouth twice daily Buspirone 5 mg tablet Discontinued 7.5 mg PO TWICE A DAY 90 30 1 January 01, 2023 11:03am January 30, 2023 9:59am Start: 10-30-2022 End: 01-30-2023 take 7.5 mg by mouth twice daily Buspirone Discontinued 7.5 MG PO TWICE A DAY 90 January 01, 2023 10:03am January 30, 2023 8:59am Comment on above: Take by mouth twice daily. Take 5 mg by mouth t wice daily. celecoxib 200 mg oral capsule (15 sources) Nonsteroidal Anti-inflammatory Drug Start: End: take 1 capsule by mouth once daily as needed for pain Celecoxib (Celebrex) 200 mg capsule Discontinued 200 mg PO DAILY as needed for pain July 23, 2023 12:00am September 08, 2023 11:23am Start: 09-25-2022 End: 11-07-2022 take 1 capsule by mouth twice daily Celecoxib 100 mg capsule Discontinued 100 mg PO TWICE A DAY 20 September 25, 2022 1:00am November 07, 2022 8:48pm Comment on above: Take 1 capsule by [facility] twice daily. cholecalciferol 0.025 mg oral capsule (20 sources) Vitamin D Start: End: take 1 capsule by mouth once daily Cholecalciferol (Vitamin D3) 25 mcg (1,000 unit) capsule Discontinued 25 ug PO DAILY February 08, 2021 12:00am August 21, 2021 10:06am clopidogrel 75 mg oral tablet (20 sources) P2Y12 Platelet Inhibitor Start: 018 End: 018 take 1 tablet by mouth once daily Clopidogrel (Plavix) 75 mg tablet Discontinued 75 mg PO DAILY 30 June 16, 2018 12:00am June 19, 2018 3:27pm DAPTOmycin 500 mg injection (19 sources) Lipopeptide Antibacterial Start: 023 End: 023 Daptomycin 500 mg Recon Soln Discontinued 500 mg IV DAILY October 05, 2022 1:00am November 07, 2022 8:48pm Antibiotic administer over 30 mins Start: 10-05-2022 End: 11-11-2022 inject 650 mg intravenously once daily DAPTOmycin (CUBICIN) 500 mg injection Inject 650 mg intravenously once daily. 0 10/05/2022 11/11/2022 Active End: 10-04-2022 DAPTOMYCIN INTRAVENOUS Injec t 650 mg intravenously. 0 10/04/2022 Discontinued Comment on above: Inject 650 mg intrav enously. Inject 650 mg intrav enously once daily. diazePAM 5 mg oral tablet (20 sources) Benzodiazepine Start: End: take 1 tablet by mouth every eight hours as needed for muscle spasms Diazepam 5 MG tablet Discontinued 5 mg PO EVERY 8 HOURS as needed for Muscle Spasm January 03, 2019 12:00am July 13, 2019 2:04pm diphenhydrAMINE hydrochloride 25 mg oral capsule (20 sources) Histamine-1 Receptor Antagonist Start: End: take 1 capsule by mouth at bedtime Diphenhydramine Hcl (Benadryl) 25 mg capsule Discontinued 25 mg PO AT BEDTIME March 05, 2020 12:00am May 11, 2020 2:21pm Start: 03-05-2020 End: 05-11-2020 docusate sodium 100 mg oral capsule (6 sources) Start: 09-08-2023 End: 05-16-2025 take 1 capsule by mouth once daily as needed Docusate Sodium (Col-Rite) 100 mg capsule Discontinued 100 mg PO DAILY as needed November 09, 2024 2:03pm May 16, 2025 2:24pm 0.5 ml dulaglutide 3 mg/ml auto-injector (20 sources) GLP-1 Receptor Agonist Start: 01-18-2022 End: 04-29-2022 Dulaglutide (Trulicity) 1.5 mg/0.5 mL pen injector Discontinued 1.5 mg SC EVERY WEEK 2 January 18, 2022 8:43pm April 29, 2022 9:43am Start: 01-18-2022 End: 04-29-2022 Start: 06-25-2021 End: 01-18-2022 Dulaglutide (Trulicity) 0.75 mg/0.5 mL pen injector Discontinued 0.75 mg SC EVERY WEEK 2 December 27, 2021 10:55am January 18, 2022 8:44pm Start: 06-25-2021 End: 01-18-2022 erythromycin 0.005 mg/mg ophthalmic ointment (20 sources) Macrolide, Macrolide Antimicrobial Start: 03-05-2020 End: 04-12-2021 Erythromycin 5 mg/gram (0.5 %) ointment Discontinued 1 NMA OPHTHALMIC DAILY as needed for Dry Eyes February 08, 2021 10:06am April 12, 2021 9:59am Start: 03-05-2020 End: 04-12-2021 Erythromycin Discontinued 1 APPLIC OPHTHALMIC DAILY February 08, 2021 9:06am April 12, 2021 8:59am Start: 03-05-2020 End: 04-12-2021 Start: 03-17-2016 End: 01-01-2018 Erythromycin 1 APPLIC ointme nt Discontinued 1 NMA EACH EYE TWICE A DAY as needed for infection March 17, 2016 12:00am January 01, 2018 1:18pm Start: 03-17-2016 End: 01-01-2018 Erythromycin Discontinued 1 APPLIC EACH EYE TWICE A DAY March 16, 2016 11:00pm January 01, 2018 12:18pm Start: 03-17-2016 End: 01-01-2018 Fluticasone Propion-Salmeterol (6 sources) Corticosteroid, beta2-Adrenergic Agonist Start: 07-08-2024 End: 11-09-2024 Fluticasone Propion-Salmeterol (Wixela Inhub) 500-50 mcg/dose blister with device Discontinued 1 NMA INHALATION TWICE A DAY 60 3 July 08, 2024 12:00am November 09, 2024 2:03pm Start: 07-08-2024 End: 11-09-2024 Fluticasone Propion-Salmeter ol (Wixela Inhub) 500-50 mcg/dose blister with device Discontinued 1 NMA INHALATION TWICE A DAY 60 July 08, 2024 12:00am November 09, 2024 2:03pm Start: 06-28-2024 End: 07-08-2024 Fluticasone Propion-Salmeter ol (Advair Hfa) 230-21 mcg/actuation HFA aerosol inhaler Discontinued 2 NMA INHALATION TWICE A DAY 3 3 June 28, 2024 12:00am July 08, 2024 2:05pm Start: 06-28-2024 End: 07-08-2024 Fluticasone Propion-Salmeter ol (Advair Hfa) 230-21 mcg/actuation HFA aerosol inhaler Discontinued 2 NMA INHALATION TWICE A DAY 3 June 28, 2024 12:00am July 08, 2024 2:05pm Kzdvwjppzec-Qlczxbnzx-Uthobm er (20 sources) Anticholinergic, Corticosteroid, beta2-Adrenergic Agonist Start: 04-18-2022 End: 07-03-2022 Wrtbaiahgvj-Plepmkxfe-Qdtiei er (Trelegy Ellipta) 100-62.5-25 mcg blister with device Discontinued 1 NMA INHALATION DAILY April 18, 2022 12:00am July 03, 2022 10:27am Start: 04-18-2022 End: 07-03-2022 Start: 04-18-2022 End: 07-03-2022 Lztcplxudoe-Jrljhfhih-Euegmu er (Trelegy Ellipta) 100-62.5-25 mcg blister with device Discontinued 1 INH INHALATION DAILY April 17, 2022 11:00pm July 03, 2022 9:27am Start: 04-18-2022 End: 07-03-2022 Guvxxiaqlht-Zolyepcgp-Dsasgk er (Trelegy Ellipta) 100-62.5-25 mcg blister with device Discontinued 1 INH INHALATION DAILY April 18, 2022 12:00am July 03, 2022 10:27am Start: 04-18-2022 Fluticasone-Um eclidin-Vilanter (Trelegy Ellipta) 100-62.5-25 mcg blister with device Active 1 INH INHALATION DAILY April 18, 2022 12:00am Start: 01-29-2021 End: 03-27-2022 Wnheqvuatwx-Uvrtqyubo-Flnzjp er (Trelegy Ellipta) 100-62.5-25 mcg blister with device Discontinued 1 NMA INHALATION DAILY 60 5 January 29, 2021 3:18pm March 27, 2022 8:13am Start: 01-29-2021 End: 03-27-2022 Hxjqdhuhffm-Tbijieyhr-Qumxxa er (Trelegy Ellipta) 100-62.5-25 mcg blister with device Discontinued 1 NMA INHALATION DAILY January 29, 2021 3:18pm March 27, 2022 8:13am Start: 01-29-2021 End: 03-27-2022 Start: 01-29-2021 End: 03-27-2022 Czrpqklnykj-Ftttojnms-Xrhsza er (Trelegy Ellipta) 100-62.5-25 mcg blister with device Discontinued 1 INH INHALATION DAILY 60 January 29, 2021 2:18pm March 27, 2022 7:13am Start: 01-29-2021 End: 03-27-2022 Vclpeqjhjyl-Mgzvfeyet-Wlvwqk er (Trelegy Ellipta) 100-62.5-25 mcg blister with device Discontinued 1 INH INHALATION DAILY 60 January 29, 2021 3:18pm March 27, 2022 8:13am Start: 01-29-2021 Fluticasone-Um eclidin-Vilanter (Trelegy Ellipta) 100-62.5-25 mcg blister with device Active 1 INH INHALATION DAILY 60 January 29, 2021 3:18pm Start: 09-19-2020 take 1 puff(s) by in halation once daily dfhfuwrfpqc-donsaozlh-deivwfzk (TRELEGY ELLIPTA) 100-62.5-25 mcg Inhale 1 Puff as instructed once daily. 0 09/19/2020 Active Start: 06-15-2020 End: 01-29-2021 Lxjrdoxagdk-Ebxzalgcq-Eojdsh er (Trelegy Ellipta) 100-62.5-25 mcg blister with device Discontinued 1 INH INHALATION DAILY 60 June 15, 2020 11:33am January 29, 2021 3:18pm Start: 06-15-2020 End: 01-29-2021 Uyqntcsuvwi-Hnelicmtc-Gbwuhd er (Trelegy Ellipta) 100-62.5-25 mcg blister with device Discontinued 1 NMA INHALATION DAILY 60 5 June 15, 2020 12:00am January 29, 2021 3:18pm Start: 06-15-2020 End: 01-29-2021 Eewevwozcec-Wetkwsgck-Riadha er (Trelegy Ellipta) 100-62.5-25 mcg blister with device Discontinued 1 NMA INHALATION DAILY 60 June 15, 2020 12:00am January 29, 2021 3:18pm Start: 06-15-2020 End: 01-29-2021 Start: 06-15-2020 End: 01-29-2021 Zglwtdaintu-Lltrwqtby-Pybmhl er (Trelegy Ellipta) 100-62.5-25 mcg blister with device Discontinued 1 INH INHALATION DAILY 60 June 14, 2020 11:00pm January 29, 2021 2:18pm Start: 06-15-2020 End: 01-29-2021 Rlkwehsqyxe-Nxgxdrvxu-Qsspmr er (Trelegy Ellipta) 100-62.5-25 mcg blister with device Discontinued 1 INH INHALATION DAILY 60 June 15, 2020 12:00am January 29, 2021 3:18pm Comment on above: Inhale 1 Puff as ins tructed once daily. glipiZIDE er 5 mg 24 hr extended release oral tablet (20 sources) Sulfonylurea Start: 2021 End: 2023 take 1 tablet by mouth once daily Glipizide 5 mg tablet extended release 24hr Discontinued 5 mg PO DAILY 90 July 18, 2023 2:26pm July 19, 2024 11:46am DM Comment on above: Take 5 mg by mouth o nce daily. hydroCHLOROthiazide 12.5 mg oral tablet (20 sources) Thiazide Diuretic Start: 2019 End: 2020 take 1 tablet by mouth once daily Hydrochlorothiazide 12.5 mg tablet Discontinued 12.5 mg PO DAILY 90 August 11, 2020 1:00am July 16, 2021 9:59am Start: 08-02-2019 End: 03-05-2020 take 1 tablet by mouth once daily Hydrochlorothiazide 12.5 mg tablet Discontinued 12.5 mg PO DAILY 90 October 12, 2019 11:52am March 05, 2020 12:56pm hydroCHLOROthiazide 12.5 mg / valsartan 80 mg oral tablet (20 sources) Thiazide Diuretic, Angiotensin 2 Receptor Su Start: 04-12-2021 End: 11-07-2022 take 1 tablet by mouth once daily Valsartan-Hydrochlorothiazide Discontinued 1 TABLET PO DAILY July 16, 2022 8:28am November 07, 2022 7:49pm Start: 04-12-2021 End: 11-07-2022 Start: 01-06-2018 End: 07-13-2019 take 1 tablet by mouth once daily Valsartan-Hydrochlorothiazide Discontinued 1 TABLET PO DAILY 90 September 23, 2018 1:30pm July 13, 2019 1:30pm Start: 01-06-2018 End: 07-13-2019 Start: 03-17-2016 End: 01-04-2018 Valsartan-Hydrochlorothiazid e Discontinued 1 EACH PO DAILY March 16, 2016 11:00pm January 04, 2018 12:41pm Start: 03-17-2016 End: 01-04-2018 Start: 11-28-2015 End: 11-07-2022 Valsartan-Hydrochlorothiazid e 80-12.5 mg tablet Discontinued 1 {tbl} PO DAILY 90 July 16, 2022 9:28am November 07, 2022 8:49pm Comment on above: Take 1 tablet by josué th once daily. lactobacillus acidophilus [id number] unt / pectin 100 mg oral tablet (12 sources) Start: 11-07-2022 Acidophilus-Pectin, [place] 25 million cell -100 mg tab Take by mouth once daily. 0 11/07/2022 Active Start: 11-07-2022 take 1 tablet by josué th twice daily Acidophilus-Pectin, [place] Active 1 TABLET PO TWICE A DAY 0 November 07, 2022 1:00am Start: 11-07-2022 Comment on above: Take by mouth once d aily. levothyroxine sodium 0.2 mg oral tablet (20 sources) l-Thyroxine Start: End: take 1 tablet by mouth once daily Levothyroxine 200 mcg tablet Discontinued 200 ug PO DAILY 90 3 February 18, 2024 7:30am April 21, 2025 9:54am Start: 01-30-2023 End: 02-03-2023 take 1 tablet by mouth twice daily Levothyroxine 100 mcg tablet Discontinued 100 ug PO TWICE A DAY January 30, 2023 9:59am February 03, 2023 1:33pm Start: 11-07-2022 End: 01-30-2023 take 2 tablets by mouth once daily Levothyroxine 100 mcg tablet Discontinued 200 ug PO DAILY 60 30 0 January 13, 2023 3:26pm January 30, 2023 9:59am Start: 11-07-2022 End: 01-30-2023 take 200 ug by mouth once daily Levothyroxine Disconti nued 200 MCG PO DAILY 60 30 January 13, 2023 2:26pm January 30, 2023 8:59am Start: 11-07-2022 levothyroxine (SYNTHROID) 100 mcg tablet Take by mouth once daily. 0 11/07/2022 Active Start: 05-11-2020 End: 11-07-2022 Levothyroxine 200 mcg tablet Discontinued 200 ug PO DAILY 90 1 March 26, 2022 5:50pm August 03, 2022 4:24pm thyroid take with a 25 mcg Start: 05-11-2020 End: 04-18-2022 Levothyroxine 25 mcg capsule Discontinued 25 ug PO DAILY 90 1 March 26, 2022 5:51pm April 18, 2022 10:42am Take with a 200 mcg Start: 05-11-2020 End: 04-18-2022 Start: 03-27-2018 End: 07-13-2019 Levothyroxine 200 MCG tablet Discontinued 225 ug PO DAILY March 27, 2018 12:00am July 13, 2019 2:05pm thyroid Start: 03-27-2018 End: 07-13-2019 take 225 ug by mouth once daily Levothyroxine Disconti nued 225 MCG PO DAILY March 26, 2018 11:00pm July 13, 2019 1:05pm Start: 03-27-2018 End: 11-07-2022 take 25 ug by mouth once daily Levothyroxine Discontin ued 225 MCG PO DAILY August 03, 2022 3:24pm November 07, 2022 7:49pm take with a 25 mcg Start: 03-17-2016 End: 12-04-2017 Levothyroxine 175 MCG tablet Discontinued 225 ug PO DAILY March 17, 2016 12:00am December 04, 2017 11:12am Start: 03-17-2016 End: 12-04-2017 take 225 ug by mouth once daily Levothyroxine Disconti nued 225 MCG PO DAILY March 16, 2016 11:00pm December 04, 2017 10:12am Start: 10-03-2015 End: 05-11-2020 take 1 tablet by mouth once daily Levothyroxine 200 mcg tablet Discontinued 200 ug PO DAILY July 13, 2019 2:02pm May 11, 2020 2:25pm thyroid Start: 08-30-2015 take 1 tablet by josué th once daily levothyroxine (SYNTHROID) 25 mcg tablet Indications: Secondary polycythemia Take 25 mcg by mouth once daily. 0 08/30/2015 Active Comment on above: Take 25 mcg by mouth once daily. Take 200 mcg by mout h once daily. Take by mouth once d aily. LORazepam 0.5 mg oral tablet (11 sources) Benzodiazepine Start: End: take 6 tablets by mouth once as needed Lorazepam (Ativan) 0.5 mg tablet Discontinued 0.5 mg PO .Q6 as needed October 30, 2022 1:00am November 07, 2022 8:48pm Start: 10-30-2022 End: 11-07-2022 take 0.5 mg by mouth every six hours as needed Lorazepam Active 0.5 MG PO EVERY 6 HOURS NEEDED 25 04November 07, 2022 1:00am meclizine hydrochloride 25 mg oral tablet (20 sources) Antiemetic Start: 03-28-2018 End: 06-16-2018 take 1 tablet by mouth three times daily as needed Meclizine 25 MG tablet Discontinued 25 mg PO 3 TIMES DAILY NEEDED as needed for Vertigo March 28, 2018 12:00am June 16, 2018 9:40am metFORMIN hydrochloride 500 mg oral tablet (20 sources) Biguanide Start: 10-30-2022 End: 12-20-2024 take 1 tablet by mouth twice daily at mealtime Metformin 500 mg tablet Discontinued 500 mg PO TWICE DAILY WITH MEALS 180 90 October 27, 2023 3:39pm December 20, 2024 11:45am Start: 10-05-2022 End: 10-30-2022 Metformin 1,000 mg Tablet Discontinued 1500 mg PO AT BEDTIME October 05, 2022 1:00am October 30, 2022 9:54am DM Start: 10-05-2022 End: 10-30-2022 take 1500 mg by mouth at bedtime Metformin Discontinued 1500 MG PO AT BEDTIME October 05, 2022 12:00am October 30, 2022 8:54am Start: 01-03-2018 End: 06-23-2018 Metformin 1,000 MG tablet Discontinued 1500 mg PO WITH DINNER January 03, 2018 12:00am June 23, 2018 10:28am diabetes Start: 01-03-2018 End: 06-23-2018 take 1500 mg by mouth at dinner Metformin Discontinued 1500 MG PO WITH DINNER January 02, 2018 11:00pm June 23, 2018 9:28am Start: 03-17-2016 End: 01-01-2018 Metformin 1,000 MG tablet Discontinued 1500 mg PO WITH DINNER March 17, 2016 12:00am January 01, 2018 1:18pm Start: 03-17-2016 End: 01-01-2018 take 1500 mg by mouth at dinner Metformin Discontinued 1500 MG PO WITH DINNER March 16, 2016 11:00pm January 01, 2018 12:18pm Start: 09-14-2015 End: 10-30-2022 Metformin 1,000 mg tablet Discontinued 1000 mg PO 0800 August 03, 2022 4:24pm October 30, 2022 9:54am DIABETES 1,000 mg in am and 1,500 in pm Comment on above: Take one tablet in A M & 1 1/2 tablets in PM. Take 500 mg by mouth twice daily with meals. methylPREDNISolone acetate 40 mg/ml injectable suspension (20 sources) Corticosteroid Start: 07-12-2020 End: 07-12-2020 Depo-Medrol (methylprednisolone acetate) 40 mg/mL suspension for injection Discontinued 40 MG INTRAARTIC ONCE July 12, 2020 9:26am July 12, 2020 12:55pm Start: 03-05-2020 End: 05-11-2020 take 1 tablet by mouth once Methylprednisolone (Medrol (Amari)) 4 mg tablets,dose pack Discontinued 0 PO per package directions 21 0 March 05, 2020 12:00am May 11, 2020 2:24pm PO PER PKG DIR Start: 03-05-2020 End: 05-11-2020 24 hr metoprolol succinate 25 mg extended release oral tablet (20 sources) beta-Adrenergic Su Start: 05-21-2019 End: 10-05-2022 take 1 tablet by mouth every twenty-four hours at bedtime Metoprolol Succinate 25 mg tablet extended release 24 hr Discontinued 25 mg PO AT BEDTIME 90 3 September 24, 2021 6:04pm October 05, 2022 10:42pm BLOOD PRESSURE Start: 03-17-2016 End: 03-19-2016 take 1 tablet by mouth once daily Metoprolol Tartrate 25 MG tablet Discontinued 25 mg PO DAILY March 17, 2016 12:00am March 19, 2016 10:57am Start: 03-17-2016 End: 10-10-2017 take 1 tablet by mouth twice daily before mealtime Metoprolol Tartrate 25 MG tablet Discontinued 25 mg PO TWICE DAILY BEFORE MEALS 0 0 March 19, 2016 10:56am October 10, 2017 4:35pm hold if HR Start: 10-03-2015 End: 04-21-2025 take 1 tablet by mouth once daily Metoprolol Succinate 25 mg tablet extended release 24 hr Discontinued 25 mg PO DAILY 90 3 October 27, 2023 5:14pm April 28, 2024 2:48pm BLOOD PRESSURE Comment on above: Take 25 mg by mouth once daily. Multivitamin tablet (3 sources) Start: 02-08-2021 End: 11-07-2022 Multivitamin tablet Discontinued 1 {tbl} PO DAILY February 08, 2021 12:00am November 07, 2022 8:48pm Nutritional Supplements (5 sources) Start: 10-30-2022 End: 11-07-2022 Nutritional Supplements Discontinued EACH PO October 30, 2022 12:00am November 07, 2022 7:49pm Start: 10-30-2022 End: 11-07-2022 Nutritional Supplements Disc ontinued EACH PO October 30, 2022 1:00am November 07, 2022 8:49pm Nutritional Supplements powder (3 sources) Start: 10-30-2022 End: 11-07-2022 Nutritional Supplements powder Discontinued NMA PO October 30, 2022 1:00am November 07, 2022 8:49pm oxyCODONE hydrochloride 5 mg oral tablet (9 sources) Opioid Agonist Start: 10-30-2022 End: 11-07-2022 take 1 tablet by mouth every four hours as needed Oxycodone 5 mg tablet Discontinued 5 mg PO Q4H as needed 0 October 30, 2022 1:00am November 07, 2022 8:49pm potassium chloride 20 meq extended release oral tablet (17 sources) Start: 12-12-2022 End: 12-12-2022 take 1 tablet by mouth once daily Potassium Chloride 20 mEq tablet extended release Discontinued 20 meq PO DAILY December 12, 2022 12:00am December 12, 2022 2:49pm Start: 11-07-2022 End: 02-16-2023 Potassium Chloride (Klor-Con M20) 20 mEq Tablet,Er Particles/Crystals Discontinued 20 meq PO WITH BREAKFAST 30 30 0 November 07, 2022 1:00am November 14, 2022 3:36pm Start: 11-07-2022 predniSONE 20 mg oral tablet (20 sources) Start: 09-13-2022 End: 10-30-2022 take 1 tablet by mouth twice daily Prednisone 20 mg tablet Discontinued 20 mg PO TWICE A DAY 6 0 September 13, 2022 1:00am October 30, 2022 9:44am Start: 10-08-2019 End: 03-05-2020 take 3 tablets by mouth once daily at mealtime Prednisone 20 mg tablet Discontinued 60 mg PO daily 15 November 01, 2019 11:25am March 05, 2020 12:56pm administer with food or milk Start: 10-08-2019 End: 03-05-2020 take 60 mg by mouth once daily at mealtime Prednisone Discontinued 60 MG PO daily November 01, 2019 10:25am March 05, 2020 11:56am administer with food or milk Start: 10-08-2019 End: 03-05-2020 Start: 03-19-2016 End: 12-04-2017 take 1 tablet by mouth once daily Prednisone 20 MG tablet Discontinued 20 mg PO DAILY@0800 2 0 March 19, 2016 12:00am December 04, 2017 11:14am Start: 03-19-2016 End: 12-04-2017 rOPINIRole 1 mg oral tablet (20 sources) Nonergot Dopamine Agonist Start: 02-11-2019 End: 07-13-2019 take 1 tablet by mouth at bedtime Ropinirole 1 mg tablet Discontinued 1 mg PO AT BEDTIME 60 0 February 11, 2019 12:00am July 13, 2019 2:04pm administer 1-3 hours before bedtime Start: 02-11-2019 End: 07-13-2019 rosuvastatin calcium 10 mg oral tablet (20 sources) HMG-CoA Reductase Inhibitor Start: 05-03-2022 End: 08-03-2022 take 1 tablet by mouth once daily Rosuvastatin 10 mg tablet Discontinued 10 mg PO DAILY 90 3 July 31, 2022 8:00am August 03, 2022 4:27pm simethicone 80 mg chewable tablet (20 sources) Start: 11-07-2022 End: 05-08-2023 take 1 tablet by mouth three times daily after mealtime Simethicone 80 mg Tablet,Chewable Discontinued 80 mg PO THREE TIMES DAILY AFTER MEALS 90 30 0 November 07, 2022 1:00am February 03, 2023 11:12am Comment on above: Take by mouth three times daily with meals. Take 80 mg by mouth three times daily with meals. PRN SITagliptin 100 mg oral tablet (20 sources) Dipeptidyl Peptidase 4 Inhibitor Start: 06-14-2021 End: 08-21-2021 take 1 tablet by mouth once daily Sitagliptin Phosphate (Januvia) 100 mg tablet Discontinued 100 mg PO DAILY 90 1 June 14, 2021 12:00am August 21, 2021 10:08am sodium chloride 0.111 meq/ml nasal spray (20 sources) Start: 11-07-2022 End: 04-20-2025 sodium chloride (AYR, OCEAN) 0.65 % nasal spray Use in the nose as needed. 11/07/2022 04/20/2025 Discontinued Start: 11-07-2022 sodium chlorid e (AYR, OCEAN) 0.65 % nasal spray as needed. 0 11/07/2022 Active Start: 11-07-2022 Sodium Chlorid e ([place] Nasal) 0.65 % Aerosol,[place] Active 2 SPRAY NASAL TWICE DAILY NEEDED 0 November 07, 2022 1:00am Start: 11-07-2022 Comment on above: as needed. Use in the nose as n eeded. tamsulosin hydrochloride 0.4 mg oral capsule (20 sources) alpha-Adrenergic Su Start: End: take 1 capsule by mouth at bedtime Tamsulosin 0.4 mg capsule Discontinued 0.4 mg PO AT BEDTIME 90 3 October 27, 2023 3:40pm December 20, 2024 11:45am Start: 08-09-2022 End: 11-07-2022 take 2 capsules by mouth once daily Tamsulosin 0.4 mg Capsule Discontinued 0.8 mg PO DAILY@1730 60 0 August 09, 2022 1:00am November 07, 2022 8:49pm Start: 08-09-2022 End: 11-07-2022 take 0.8 mg by mouth once daily Tamsulosin Discontinue d 0.8 MG PO DAILY@1730 60 August 09, 2022 12:00am November 07, 2022 7:49pm Start: 03-17-2016 End: 02-08-2021 take 1 capsule by mouth once daily Tamsulosin 0.4 MG capsule Discontinued 0.4 mg PO DAILY March 17, 2016 12:00am February 08, 2021 10:11am URINE RETENTION Comment on above: Take by mouth daily at bedtime. 60 actuat testosterone 30 mg/actuat topical solution (20 sources) Androgen Start: 05-11-2020 End: 02-08-2021 Testosterone 30 mg/actuation (1.5 mL) solution in metered pump w/kasandra Discontinued 1 NMA TOPICAL DAILY May 11, 2020 12:00am February 08, 2021 10:07am apply to ONE underarm area only; alternate with each dose Start: 03-27-2018 End: 07-13-2019 Testosterone 5 GM gel in pac ket Discontinued 30 mg TD DAILY March 27, 2018 12:00am July 13, 2019 2:05pm STEROID Start: 03-27-2018 End: 07-13-2019 Testosterone Discontinued 30 MG TD DAILY March 26, 2018 11:00pm July 13, 2019 1:05pm Start: 01-01-2018 End: 01-04-2018 Testosterone (Axiron) 30 mg/ actuation (1.5 mL) solution in metered pump w/kasandra Discontinued 1 NMA TOPICAL daily January 01, 2018 12:00am January 04, 2018 1:41pm HORMONE REPLACEMENT Start: 03-17-2016 End: 01-01-2018 Testosterone 5 GM gel in pac ket Discontinued 30 mg TD TWICE A DAY March 17, 2016 12:00am January 01, 2018 1:18pm Start: 03-17-2016 End: 01-01-2018 Testosterone Discontinued 30 MG TD TWICE A DAY March 16, 2016 11:00pm January 01, 2018 12:18pm traMADol hydrochloride 50 mg oral tablet (20 sources) Opioid Agonist Start: 10-30-2022 End: 02-03-2023 take 1 tablet by mouth every six hours as needed for pain Tramadol 50 mg Tablet Discontinued 50 mg PO EVERY 6 HOURS NEEDED as needed for Pain Score 4-5 28 7 0 November 07, 2022 1:00am February 03, 2023 11:12am Start: 07-12-2020 End: 02-08-2021 take 1 tablet by mouth twice daily as needed Tramadol 100 mg tablet Discontinued 100 mg PO TWICE A DAY as needed July 12, 2020 12:00am February 08, 2021 10:07am Comment on above: Take by mouth as nee ded. Take 1 tablet by josué th every 6 hours as needed for pain for up to 7 days. traZODone hydrochloride 50 mg oral tablet (20 sources) Serotonin Reuptake Inhibitor Start: 11-14-19 End: 02-25-20 take 1 tablet by mouth at bedtime as needed Trazodone 50 mg tablet Discontinued 50 mg PO AT BEDTIME as needed for insomnia 60 July 19, 2024 11:45am February 24, 2025 11:46am Comment on above: Take 50 mg by mouth daily at bedtime. triamcinolone acetonide 1 mg/ml topical cream (4 sources) Corticosteroid Start: 07-23-20 End: 12-14-19 Triamcinolone Acetonide 0.1 % cream Discontinued 1 NMA TOPICAL TWICE A DAY 30 July 23, 2023 12:00am December 13, 2024 2:35pm Apply to rash on right veliz. valsartan 80 mg oral tablet (20 sources) Angiotensin 2 Receptor Su Start: 07-13-20 End: 07-16-20 take 1 tablet by mouth once daily Valsartan 80 mg tablet Discontinued 80 mg PO DAILY 90 3 July 16, 2021 9:59am July 16, 2021 10:29am Start: 01-04-2018 End: 01-06-2018 take 1 tablet by mouth once daily Valsartan 80 MG tablet Discontinued 80 mg PO DAILY 30 0 January 04, 2018 12:00am January 06, 2018 3:27pm Zinc (20 sources) Start: 02-08-2021 End: 08-21-2021 take 50 mg by mouth once daily Zinc Discontinued 50 MG PO DAILY February 08, 2021 10:10am August 21, 2021 10:08am Start: 02-08-2021 End: 08-21-2021 take 1 tablet by mouth once daily Zinc 50 mg tablet Discontinued 50 mg PO DAILY February 08, 2021 12:00am August 21, 2021 10:08am Start: 02-08-2021 End: 08-21-2021 take 50 mg by mouth once daily Zinc Discontinued 50 MG PO DAILY February 07, 2021 11:00pm August 21, 2021 9:08am Start: 02-08-2021 End: 08-21-2021 take 50 mg by mouth once daily Zinc Discontinued 50 MG PO DAILY February 08, 2021 12:00am August 21, 2021 10:08am Problems Active Problems Problem Classification Problem Date Documented Da te Episodic/Chronic Anxiety disorders (20 sources) Anxiety about body function or health; Translations: [Other specified anxiety disorders] Onset: 04-17-2018 04-17-2018 Chronic Asthma (20 sources) Unspecified asthma, uncomplicated; Translations: [Asthma, unspecified type, unspecified] Onset: 01-17-2009 10-11-2011 Chronic Bacterial infection; unspecified site (20 sources) Bacteremia due to Methicillin resistant Staphylococcus aureus; Translations: [Bacteremia] Onset: 06-20-2025 Episodic Cancer of kidney and renal pelvis (20 sources) Renal cell carcinoma; Translations: [Malignant neoplasm of unspecified kidney, except renal pelvis] Onset: 10-11-2011 09-24-2021 Chronic Cardiac dysrhythmias (20 sources) Palpitations; Translations: [Palpitations] 05-12-2019 Episodic Chronic obstructive pulmonary disease and bronchiectasis (20 sources) Chronic obstructive lung disease; Translations: [Chronic obstructive pulmonary disease, unspecified] Onset: 01-22-2023 Chronic Chronic ulcer of skin (14 sources) Pressure ulcer of right elbow, stage 3; Translations: [Pressure injury of right elbow, stage 3] 01-30-2023 Chronic Coagulation and hemorrhagic disorders (20 sources) Blood coagulation disorder; Translations: [Coagulation defect, unspecified] Onset: 01-22-2023 Chronic Coronary atherosclerosis and other heart disease (20 sources) Coronary atherosclerosis; Translations: [Atherosclerotic heart disease of [place] coronary artery without angina pectoris] Onset: 05-27-2011 Chronic Diabetes mellitus with complications (2 sources) Type 2 diabetes mellitus; Translations: [Type 2 diabetes mellitus with other specified complication] Onset: 01-18-2025 Chronic Diabetes mellitus without complication (20 sources) Diabetes mellitus; Translations: [Type 2 diabetes mellitus without complications] Onset: 05-10-2011 Chronic Diabetes mellitus without complication (20 sources) Impaired fasting glycemia; Translations: [Impaired fasting glucose] Onset: 01-09-2010 09-24-2021 Episodic Disorders of lipid metabolism (20 sources) Hyperlipidemia; Translations: [Hyperlipidemia, unspecified] Onset: 12-24-2024 Chronic Essential hypertension (20 sources) Essential hypertension; Translations: [Essential (primary) hypertension] Onset: 05-16-2025 Chronic Immunizations and screening for infectious disease (1 source) Encounter for immunization; Translations: [Encounter for immunization] Onset: 07-22-2025 Episodic Infective arthritis and osteomyelitis (except that caused by tuberculosis or sexually transmitted disease) (20 sources) Osteomyelitis of pelvic region; Translations: [Osteomyelitis, unspecified] Onset: 05-18-2024 Chronic Infective arthritis and osteomyelitis (except that caused by tuberculosis or sexually transmitted disease) (20 sources) Arthritis of left hip caused by Staphylococcus; Translations: [Staphylococcal arthritis, left hip] Onset: 09-28-2022 10-04-2022 Episodic Influenza (20 sources) Influenza due to Influenza A virus; Translations: [Influenza due to other identified influenza virus with other respiratory manifestations] 06-21-2018 Episodic Malaise and fatigue (15 sources) Asthenia; Translations: [Other malaise] Episodic Mood disorders (20 sources) Dysthymia; Translations: [Dysthymic disorder] 10-11-2011 Chronic Neoplasms of unspecified nature or uncertain behavior (16 sources) Polycythemia vera (clinical); Translations: [Polycythemia vera] Chronic Nutritional deficiencies (20 sources) Undernutrition; Translations: [Mild protein-calorie malnutrition] Onset: 09-28-2022 Resolved: 03-02-2024 10-04-2022 Chronic Open wounds of extremities (1 source) Open wound of right elbow region; Translations: [Unspecified open wound of right elbow, sequela] Episodic Other aftercare (20 sources) Long-term current use of 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; Translations: [Other custodial (current) 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] 06-21-2018 Episodic Other aftercare (1 source) Drug therapy finding; 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] Episodic Other aftercare (4 sources) Long-term current use of antibiotic; Translations: [prison (current) use of antibiotics] 04-29-2023 Episodic Other bone disease and musculoskeletal deformities (20 sources) Segmental and somatic dysfunction; Translations: [Segmental and somatic dysfunction of cervical region] 01-17-2022 Episodic Other connective tissue disease (9 sources) History of total hip arthroplasty; Translations: [Presence of left artificial hip joint] Chronic Other connective tissue disease (1 source) Presence of left artificial hip joint; Translations: [Status post total replacement of left hip] Onset: 05-18-2024 Chronic Other connective tissue disease (10 sources) Iliopsoas abscess; Translations: [Psoas muscle abscess] 10-05-2022 Episodic Other connective tissue disease (5 sources) Psoas muscle abscess; Translations: [Psoas muscle abscess] Episodic Other connective tissue disease (1 source) Bursitis of olecranon of right elbow; Translations: [Olecranon bursitis, right elbow] Episodic Other connective tissue disease (4 sources) Trochanteric bursitis of left hip; Translations: [Trochanteric bursitis, left hip] 08-12-2023 Episodic Other connective tissue disease (1 source) Trochanteric bursitis, left hip; Translations: [Trochanteric bursitis of left hip] Onset: 02-01-2025 Episodic Other diseases of veins and lymphatics (9 sources) Lymphedema; Translations: [Lymphedema, not elsewhere classified] 11-01-2022 Chronic Other diseases of veins and lymphatics (4 sources) Lymphedema, not elsewhere classified; Translations: [Other lymphedema] 11-12-2022 Chronic Other ear and sense organ disorders (20 sources) Hearing difficulty; Translations: [Unspecified hearing loss, bilateral] 09-18-2021 Chronic Other ear and sense organ disorders (20 sources) Bilateral tinnitus; Translations: [Tinnitus, bilateral] 09-18-2021 Episodic Other endocrine disorders (20 sources) Testicular hypofunction; Translations: [Testicular hypofunction] Onset: 01-17-2009 09-24-2021 Chronic Other gastrointestinal disorders (1 source) Constipation; Translations: [Constipation, unspecified] 11-02-2024 Episodic Other hematologic conditions (20 sources) Secondary polycythemia; Translations: [Secondary polycythemia] Onset: 10-16-2015 Episodic Other infections; including parasitic (2 sources) H/O: infectious disease; Translations: [Personal history of other infectious and parasitic diseases] 12-04-2023 Episodic Other lower respiratory disease (20 sources) Dyspnea on exertion; Translations: [Dyspnea, unspecified] 11-08-2022 Episodic Other lower respiratory disease (2 sources) Dyspnea, unspecified; Translations: [Other respiratory abnormalities] Episodic Other lower respiratory disease (12 sources) Dyspnea; Translations: [Dyspnea, unspecified] 09-21-2022 Episodic Other lower respiratory disease (10 sources) Rib pain; Translations: [Pleurodynia] 09-25-2022 Episodic Other nervous system disorders (1 source) Other chronic pain; Translations: [Chronic left hip pain] Onset: 06-20-2025 Chronic Other non-traumatic joint disorders (20 sources) Hip pain; Translations: [Pain in right hip] 09-18-2021 Episodic Other non-traumatic joint disorders (12 sources) Pain in unspecified hip; Translations: [Pain in joint, pelvic region and thigh] Episodic Other non-traumatic joint disorders (1 source) Pain in left hip; Translations: [Chronic left hip pain] Onset: 06-20-2025 Episodic Other nutritional; endocrine; and metabolic disorders (20 sources) Obesity; Translations: [Obesity, unspecified] 10-11-2011 Chronic Other nutritional; endocrine; and metabolic disorders (20 sources) Obese class I; Translations: [Obesity, unspecified] Onset: 09-28-2022 10-04-2022 Chronic Other nutritional; endocrine; and metabolic disorders (20 sources) Body mass index 40+ - severely obese; Translations: [Morbid (severe) obesity due to excess calories] Onset: 01-22-2023 Chronic Other nutritional; endocrine; and metabolic disorders (1 source) Morbid (severe) obesity due to excess calories; Translations: [Morbid (severe) obesity due to excess calories] Onset: 05-16-2025 Chronic Other nutritional; endocrine; and metabolic disorders (1 source) Body mass index (BMI) 40.0-44.9, adult; Translations: [Body mass index [BMI] 40.0-44.9, adult] Onset: 05-16-2025 Chronic Other skin disorders (9 sources) Lesion of skin of foot; Translations: [Changes in skin texture] 11-01-2022 Episodic Other skin disorders (4 sources) Changes in skin texture; Translations: [Other specified disorders of skin] 11-12-2022 Episodic Pneumonia (except that caused by tuberculosis or sexually transmitted disease) (20 sources) Right lower zone pneumonia; Translations: [Pneumonia, unspecified organism] 06-21-2018 Episodic Pulmonary heart disease (2 sources) Chronic pulmonary embolism; Translations: [Chronic pulmonary embolism] Onset: 04-20-2025 04-20-2025 Chronic Residual codes; unclassified (20 sources) Obstructive sleep apnea syndrome; Translations: [Obstructive sleep apnea (adult) (pediatric)] Onset: 01-17-2009 10-11-2011 Chronic Comment on above: CPAP 13 cm of water with residual AHI of 4.8 CPAP 13 cm of water Residual codes; unclassified (20 sources) Obstructive sleep apnea (adult) (pediatric); Translations: [Obstructive sleep apnea (adult)(pediatric)] Chronic Residual codes; unclassified (1 source) H/O: anticoagulant therapy; Translations: [Personal history of other 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] Episodic Residual codes; unclassified (8 sources) Insomnia; Translations: [Insomnia, unspecified] 11-18-2022 Episodic Residual codes; unclassified (8 sources) Edema; Translations: [Edema, unspecified] 12-12-2022 Episodic Residual codes; unclassified (4 sources) Insomnia, unspecified; Translations: [Insomnia, unspecified] 11-14-2022 Episodic Septicemia (except in labor) (20 sources) Sepsis; Translations: [Sepsis, unspecified organism] Episodic Skin and subcutaneous tissue infections (16 sources) Abscess of buttock; Translations: [Cutaneous abscess of buttock] Onset: 05-16-2025 Episodic Spondylosis; intervertebral disc disorders; other back problems (20 sources) Degeneration of cervical intervertebral disc; Translations: [Other cervical disc degeneration, unspecified cervical region] Onset: 11-24-2024 Chronic Superficial injury; contusion (3 sources) Superficial injury of toe with infection; Translations: [Unspecified superficial injury of right lesser toe(s), initial encounter] Onset: 05-23-2025 05-16-2025 Episodic Thyroid disorders (20 sources) Hypothyroidism; Translations: [Hypothyroidism, unspecified] Onset: 05-16-2025 Chronic Unclassified (1 source) Obesity, class 3; Translations: [Obesity, class 3] Onset: 05-16-2025 Unclassified (1 source) Phlebotomy Onset: 11-04-2024 Past or Other Problems Problem Classification Problem Date Documented Da te Episodic/Chronic Calculus of urinary tract (20 sources) Urolithiasis ; Translations: [Urinary calculus, unspecified] Onset: 01-17-2009 09-24-2021 Episodic Cancer of kidney and renal pelvis (20 sources) History of malignant neoplasm of kidney; Translations: [Personal history of 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neoplasm of kidney] Onset: 04-20-2025 Episodic Complication of device; implant or graft (20 sources) Prosthetic joint infection; Translations: [Infection and inflammatory reaction due to unspecified internal joint prosthesis, subsequent encounter] Onset: 11-22-2022 11-25-2022 Episodic Coronary atherosclerosis and other heart disease (20 sources) Presence of coronary angioplasty implant and graft; Translations: [Percutaneous transluminal coronary angioplasty status] Onset: 05-24-2011 Episodic Miscellaneous mental health disorders (20 sources) Anxiety about body function or health; Translations: [Other symptoms and signs involving emotional state] Onset: 04-17-2018 04-17-2018 Episodic Other aftercare (1 source) prison (current) use of antibiotics; Translations: [Chronic antibiotic suppression] Onset: 11-04-2024 Episodic Other bone disease and musculoskeletal deformities (20 sources) Segmental and somatic dysfunction of cervical region; Translations: [Nonallopathic lesions, cervical region] Onset: 11-24-2024 Episodic Other bone disease and musculoskeletal deformities (20 sources) Segmental and somatic dysfunction of lumbar region; Translations: [Nonallopathic lesions, lumbar region] Onset: 11-24-2024 Episodic Other bone disease and musculoskeletal deformities (20 sources) Segmental and somatic dysfunction of pelvic region; Translations: [Nonallopathic lesions, pelvic region] Onset: 11-24-2024 Episodic Other bone disease and musculoskeletal deformities (20 sources) Segmental and somatic dysfunction of thoracic region; Translations: [Nonallopathic lesions, thoracic region] Onset: 11-24-2024 Episodic Other hematologic conditions (4 sources) Secondary polycythemia; Translations: [Polycythemia, secondary] Onset: 10-16-2015 Episodic Other lower respiratory disease (13 sources) Disorder of respiratory system; Translations: [Other specified respiratory disorders] Onset: 01-18-2009 10-11-2011 Episodic Other lower respiratory disease (5 sources) Other forms of dyspnea; Translations: [Other respiratory abnormalities] Onset: 12-24-2024 11-08-2022 Episodic Other screening for suspected conditions (not mental disorders or infectious disease) (3 sources) Serum creatinine raised; Translations: [Other specified abnormal findings of blood chemistry] Onset: 08-23-2024 Episodic Other upper respiratory disease (20 sources) Allergic rhinitis; Translations: [Allergic rhinitis, unspecified] Onset: 01-18-2009 Resolved: 10-05-2022 10-11-2011 Chronic Pulmonary heart disease (20 sources) Pulmonary embolism; Translations: [Other pulmonary embolism without acute cor pulmonale] Onset: 06-21-2018 Resolved: 10-05-2022 Episodic Comment on above: left pulmonary arter y Residual codes; unclassified (20 sources) Expected difficult tracheal intubation; Translations: [Other specified health status] Onset: 01-18-2009 Episodic Spondylosis; intervertebral disc disorders; other back problems (20 sources) Backache; Translations: [Dorsalgia, unspecified] Onset: 11-24-2024 Episodic Unclassified (20 sources) Age more than 65 years; Translations: [Over 65 years old] 09-18-2021 Viral infection (20 sources) Disease caused by 2019-nCoV; Translations: [COVID-19] Onset: 08-29-2021 09-18-2021 Episodic Results Test Name Value Interpretation Reference Range Facility CBC W Auto Differential pane l (Bld)on 07-27-2025 Basophils (Bld) [#/Vol] 0.09 10*3/uL Normal <0.11 [facility] Comment on above: Order Comment: Ubaldo lawrence Type: BLOOD SPECIMEN Ordering Facility: [facility] Address: [address] [place] [address] Performed By: #### 5 7021-8 #### [facility] CLIA [id number] [address] [place] [address] [place] Basophils/100 WBC (Bld) 1.5 % Normal C [facility] Comment on above: Order Comment: Speci howard Type: BLOOD SPECIMEN Ordering Facility: [facility] Address: [address] [place] [address] Performed By: #### 5 7021-8 #### [facility] CLIA [id number] [address] [place] [address] [place] Differential cell count method Nom (Bld) Auto Normal [facility] Comment on above: Order Comment: Speci men Type: BLOOD SPECIMEN Ordering Facility: [facility] Address: [address] [place], [place] [id number] Performed By: #### 5 7021-8 #### [facility] CLIA [id number] [address] [place] [address] [place] Eosinophils (Bld) [#/Vol] 0.30 10*3/uL Normal <0.46 [facility] Comment on above: Order Comment: Speci men Type: BLOOD SPECIMEN Ordering Facility: [facility] Address: [address] [place] [address] Performed By: #### 5 7021-8 #### [facility] CLIA [id number] [address] [place] [address] [place] Eosinophils/100 WBC (Bld) 5.0 % Normal [facility] Comment on above: Order Comment: Speci men Type: BLOOD SPECIMEN Ordering Facility: [facility] Address: [address] [place] [address] Performed By: #### 5 7021-8 #### [facility] CLIA [id number] [address] [place] [address] [place] Erythrocyte distribution width (RBC) [Ratio] 13.4 % Normal 11.5-15.0 [facility] Comment on above: Order Comment: Speci men Type: BLOOD SPECIMEN Ordering Facility: [facility] Address: [address] [place] [address] Performed By: #### 5 7021-8 #### [id number] [address] [place] [address] [place] Hematocrit (Bld) [Volume fraction] 44.1 % Normal 39.0-51.0 [facility] Comment on above: Order Comment: Speci men Type: BLOOD SPECIMEN Ordering Facility: [facility] Address: [address] [place], [place] [id number] Performed By: #### 5 7021-8 #### [facility] CLIA [id number] [address] [place] [address] [place] Hemoglobin (Bld) [Mass/Vol] 15.7 g/dL Normal 13.0-17.0 [facility] Comment on above: Order Comment: Speci men Type: BLOOD SPECIMEN Ordering Facility: [facility] Address: [address] [place], [place] [id number] Performed By: #### 5 7021-8 #### [facility] CLIA [id number] [address] [place] [address] [place] Immature granulocytes (Bld) [#/Vol] 10*3/uL Normal <0.10 [facility] Comment on above: Order Comment: Speci men Type: BLOOD SPECIMEN Ordering Facility: [facility] Address: [address] [place], [place] [id number] Performed By: #### 5 7021-8 #### [facility] CLIA [id number] [address] [place] [address] [place] Immature granulocytes/100 WBC (Bld) 0.3 % Normal [facility] Comment on above: Order Comment: Speci men Type: BLOOD SPECIMEN Ordering Facility: [facility] Address: [address] [place] [address] Performed By: #### 5 7021-8 #### [facility] CLIA [id number] [address] [place] [address] [place] Lymphocytes (Bld) [#/Vol] 1.91 10*3/uL Normal 1.00-4.0 0 [facility] Comment on above: Order Comment: Speci men Type: BLOOD SPECIMEN Ordering Facility: [facility] Address: [address] [place] [address] Performed By: #### 5 7021-8 #### [facility] CLIA [id number] [address] [place] [address] [place] Lymphocytes/100 WBC (Bld) 31.9 % Normal [facility] Comment on above: Order Comment: Speci men Type: BLOOD SPECIMEN Ordering Facility: [facility] Address: [address] [place] [address] Performed By: #### 5 7021-8 #### [facility] CLIA [id number] [address] [place] [address] [place] MCH (RBC) [Entitic mass] 34.0 pg Normal 26.0-34.0 [facility] Comment on above: Order Comment: Speci men Type: BLOOD SPECIMEN Ordering Facility: [facility] Address: [address] [place] [address] Performed By: #### 5 7021-8 #### [facility] CLIA [id number] [address] [place] [address] [place] MCHC (RBC) [Mass/Vol] 35.6 g/dL Normal 30.5-36.0 [facility] Comment on above: Order Comment: Speci men Type: BLOOD SPECIMEN Ordering Facility: [facility] Address: [address] [place] [address] Performed By: #### 5 7021-8 #### [facility] CLIA [id number] [address] [place] [address] [place] MCV (RBC) [Entitic vol] 95.5 fL Normal 80.0-100.0 C [facility] Comment on above: Order Comment: Speci men Type: BLOOD SPECIMEN Ordering Facility: [facility] Address: [address] [place] [address] Performed By: #### 5 7021-8 #### [facility] CLIA [id number] [address] [place] [address] [place] Monocytes (Bld) [#/Vol] 0.46 10*3/uL Normal <0.87 [facility] Comment on above: Order Comment: Speci men Type: BLOOD SPECIMEN Ordering Facility: [facility] Address: [address] [place] [address] Performed By: #### 5 7021-8 #### [facility] CLIA [id number] [address] [place] [address] [place] Monocytes/100 WBC (Bld) 7.7 % Normal C [facility] Comment on above: Order Comment: Speci men Type: BLOOD SPECIMEN Ordering Facility: [facility] Address: [address] [place] [address] Performed By: #### 5 7021-8 #### [facility] CLIA [id number] [address] [place] [address] [place] Neutrophils (Bld) [#/Vol] 3.21 10*3/uL Normal 1.45-7.5 0 [facility] Comment on above: Order Comment: Speci men Type: BLOOD SPECIMEN Ordering Facility: [facility] Address: [address] [place] [address] Performed By: #### 5 7021-8 #### [facility] CLIA [id number] [address] [place] [address] [place] Neutrophils/100 WBC (Bld) 53.6 % Normal [facility] Comment on above: Order Comment: Speci men Type: BLOOD SPECIMEN Ordering Facility: [facility] Address: [address] [place] [address] Performed By: #### 5 7021-8 #### [id number] [address] [place] [address] [place] Nucleated RBC (Bld) [#/Vol] 10*3/uL Normal <0.01 [facility] Comment on above: Order Comment: Speci men Type: BLOOD SPECIMEN Ordering Facility: [facility] Address: [address] [place] [address] Performed By: #### 5 7021-8 #### [facility] CLIA [id number] [address] [place] [address] [place] Nucleated RBC/100 WBC (Bld) [Ratio] 0.0 /100 WBC Normal [facility] Comment on above: Order Comment: Speci men Type: BLOOD SPECIMEN Ordering Facility: [facility] Address: [address] [place] [address] Performed By: #### 5 7021-8 #### [facility] CLIA [id number] [address] [place] [address] [place] Platelet mean volume (Bld) [Entitic vol] 9.4 fL Normal 9.0-12.7 [facility] Comment on above: Order Comment: Speci men Type: BLOOD SPECIMEN Ordering Facility: [facility] Address: [address] [place] [address] Performed By: #### 5 7021-8 #### [facility] CLIA [id number] [address] [place] [address] [place] Platelets (Bld) [#/Vol] 140 10*3/uL Low 150-400 [facility] Comment on above: Order Comment: Speci men Type: BLOOD SPECIMEN Ordering Facility: [facility] Address: [address] [place] [address] Performed By: #### 5 7021-8 #### [facility] CLIA [id number] [address] [place] [address] [place] RBC (Bld) [#/Vol] 4.62 10*6/uL Normal 4.20-6.00 [facility] Comment on above: Order Comment: Speci men Type: BLOOD SPECIMEN Ordering Facility: [facility] Address: [address] [place] [address] Performed By: #### 5 7021-8 #### [facility] CLIA [id number] [address] [place] [address] [place] WBC (Bld) [#/Vol] 5.99 10*3/uL Normal 3.70-11.00 [facility] Comment on above: Order Comment: Speci men Type: BLOOD SPECIMEN Ordering Facility: [facility] Address: [address] [place] [address] Performed By: #### 5 7021-8 #### [facility] CLIA [id number] [address] [place] [address] [place] Ferritin SerPl-mCncon 2024 Ferritin [Mass/Vol] 244.0 ng/mL Normal 30.3-565.7 [facility] Comment on above: Order Comment: Ubaldo lawrence Type: BLOOD SPECIMEN Ordering Facility: [facility] Address: [address] [place] [address] Performed By: #### 2 276-4 #### [facility] CLIA [id number] [address] [place] [address] OF [place] CNOVon 06-20-2025 CNOV Office Visit (INFDAK ) DALE SARABIA ([id number]) 1955 M Date Time Provider Department 06/20/25 10:00 AM LINSEY GARBER INFDAK During your visit today, we recorded the following information about you: Temperature Pulse Respiration Blood pressure 97.5 degrees 71/minute 18/minute 127/79 Weight Height 124.1 kg 1.69 m Linsey Garber MD 06/20/2025 10:44 AM Signed INFECTIOUS DISEASES OUTPATIENT FOLLOW-UP NOTE SERVICE DATE: 06/20/2025 Subjective INTERVAL HPI : The patient is a 70-year-old male with a history of left hip septic arthritis, osteomyelitis, RCC, DM, and COPD, presenting for follow-up of 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 MRSA: - History of left hip septic arthritis and surrounding osteomyelitis treated in 2022. - Underwent total hip arthroplasty in October 2022. - Currently on doxycycline 100 mg daily for suppression. - Noticed tiny skin bumps on forearm x6-8 months; not pruritic. - Experiences chronic night sweats. - Continues to have chronic left hip pain; uses a cane for ambulation, especially when outside. - Appetite is good. - Recent weight gain; reports not eating much and limited physical activity. - Last CBC (04/20/25) showed normal WBC count and mildly decreased platelet count of 144. - Serum creatinine 1.0, ESR 2, and CRP <0.3. RCC: - History of partial right nephrectomy. Secondary polycythemia: - Under the care of Dr. Jordan. - Taking hydroxyurea. - CBC done every 3 months; platelet count fluctuates. DM: - Managed with Metformin and glipizide. - No recent A1c available in [facility]. - Under the care of PCP Constitutional: (+) intermittent chills, (+) night sweats, (+) weight gain, (-) fever, (-) decreased appetite Musculoskeletal: (+) left hip pain Skin: (+) forearm bumps, (-) pruritus ROS completed x14 and only pertinent data documented, the rest is negative except as documented above MEDICATIONS: Current Outpatient Medications Medication Sig hydroxyurea (HYDREA) 500 mg capsule Take 1 capsule by mouth once daily. doxycycline monohydrate (MONODOX) 100 mg capsule Take 1 capsule by mouth once daily. traZODone (DESYREL) 50 mg tablet Take 50 mg by mouth once daily. furosemide (LASIX) 40 mg tablet Take 20 mg by mouth once daily. aspirin, enteric coated (ASPIRIN, ENTERIC COATED) 81 mg EC tablet Take 1 tablet by mouth twice daily for 21 days. busPIRone (BUSPAR) 5 mg tablet Take 5 mg by mouth twice daily. simethicone, chewable (MYLICON) 80 mg chewable tablet Take 80 mg by mouth three times a day with meals. PRN levothyroxine (SYNTHROID) 100 mcg tablet Take 200 mcg by mouth once daily. metFORMIN (GLUCOPHAGE) 500 mg tablet Take 500 mg by mouth twice daily with meals. glipiZIDE (GLUCOTROL XL) 5 mg 24 hr tablet Take 5 mg by mouth once daily. gabapentin (NEURONTIN) 100 mg capsule Take one capsule in AM, one capsule at 1PM AND three capsules at bedtime. TOPROL XL 25 mg 24 hr tablet Take 25 mg by mouth once daily. No current facility-administered medications for this visit. Objective SOCIAL HISTORY[1] FAMILY HISTORY Problem Relation Age of Onset Coronary Artery Disease Mother first disease age 70's Diabetes Mother Asthma Brother Prostate Cancer Other none Colon Cancer Other none Diabetes Sister Diabetes Brother PHYSICAL EXAM BP 127/79 Pulse 71 Temp (Src) 97.5 (Temporal) Resp 18 Ht 5' 6.535 (1.69m) Wt 273 lb 9.5 oz (124.1kg) SpO2 95% BMI 43.45 kg/(m2). PSYCHIATRIC: no apparent distress. EYES: no scleral icterus, no conjunctivitis HEENT: normal inspection of teeth, lips, gums, and oropharynx NECK: normal appearance, normal movement RESPIRATORY: symmetrical chest expansion and respiratory effort, clear to auscultation CARDIOVASCULAR: S1, S2, no tachy ABDOMINAL: soft, protuberant MUSCULOSKELETAL: No joint tenderness EXTREMITIES: Both forearms with scattered keratotic papules present. Nontender. NEUROLOGICAL: nonfocal DIAGNOSTICS REVIEWED/OPAT LABS REVIEWED PERTINENT LABS CBC: WBC 5.53 04/20/2025 Hemoglobin 15.4 04/20/2025 HCT 43.7 04/20/2025 PLT 144 04/20/2025 CMP: Sodium 140 04/29/2023 Potassium 4.0 04/29/2023 BUN 18 04/29/2023 Creatinine 1.04 11/04/2024 Glucose 84 04/29/2023 Creatinine clearance: Creatinine clearance cannot be calculated (Patient's most recent lab result is older than the maximum 180 days allowed.) INFLAMMATORY MARKERS Sed Rate/CRP: Sed Rate, Westergren 2 11/04/2024 Sed Rate, Westergren 117 09/28/2022 CRP <0.3 11/04/2024 CRP <0.3 01/13/2024 CRP <0.3 01/09/2023 CRP 3.3 11/10/2022 CRP 2.3 11/03/2022 CRP 11.9 10/27/2022 CRP 7.1 10/20/2022 CRP 3.8 10/13/2022 CRP 21.7 09/28/2022 PERTINENT MICROBIOLOGY Reviewed, see micro PERTINENT RADIOLOGY REPORTS Reviewed Impression/Recommendat ions Dale Sarabia is a 70 year old male with a history of left hip septic a (more content not included)... Normal [facility] Absolute lymphocyte countOrd ered By: Mohinder Quick on 05-17-2025 Lymphocytes Auto (Unsp spec) [#/Vol] 2.05 10*3/uL 0.83-4.51 [facility] Absolute neutrophil countOrd ered By: Mohinder Quick on 05-17-2025 Neutrophils (Bld) [#/Vol] 3.0 10*3/uL 2.0-7.7 [facility] Anion gap in Serum or Plasma Ordered By: Mohinder Quick on 05-17-2025 Anion gap [Moles/Vol] 13 mmol/L 5-15 [facility] Automated lymphocyte count a s percentage of total leukocytesOrdered By: Mohinder Quick on 05-17-2025 Lymphocytes/100 WBC Auto (Unsp spec) 34.3 % 19-41 [facility] BUN/creatinine ratioOrdered By: Mohinder Quick on 05-17-2025 Urea nitrogen/Creatinine [Mass ratio] 18.2 mg/mg 10-20 [facility] Basophil percentageOrdered B y: Mohinder Quick on 05-17-2025 Basophils/100 WBC (Bld) 1.2 % High 0-1 [facility] Bilirubin, totalOrdered By: Mohinder Quick on 05-17-2025 Bilirubin [Mass/Vol] 0.78 mg/dL 0.00-1.30 [facility] Carbon dioxide, total [Moles /volume] in Central venous bloodOrdered By: Mohinder Quick on 05-17-2025 CO2 [Moles/Vol] 23.6 mmol/L 21.0-32.0 [facility] Chloride assayOrdered By: Joyce Quick on 05-17-2025 Chloride [Moles/Vol] 105 mmol/L 98-108 [facility] Eosinophil percentageOrdered By: Mohinder Quick on 05-17-2025 Eosinophils/100 WBC (Bld) 5.7 % High 0-5 [facility] Erythrocyte distribution wid th ratioOrdered By: Mohinder Quick on 05-17-2025 Erythrocyte distribution width (RBC) [Ratio] 13.5 % 11.6-14.6 [facility] Erythrocyte distribution wid th standard deviationOrdered By: Mohinder Quick on 05-17-2025 Erythrocyte distribution width (RBC) [Ratio] 47.6 fl High 35.1-43.9 [facility] Erythrocyte sedimentation ra teOrdered By: Mohinder Quick on 05-17-2025 ESR (Bld) [Velocity] 2 mm/h 0-20 [facility] Free M4Rpaxola By: Mohinder burns on 05-17-2025 Free T3 [Mass/Vol] 2.3 pg/mL 2.18-3.98 [facility] Glomerular filtration rate ( GFR) estimation/1.73 sq m using serum, plasma, or whole bOrdered By: Mohinder Quick on 05-17-2025 GFR/1.73 sq M.predicted among non-blacks MDRD (S/P/Bld) [Vol rate/Area] 71 mL/min/{1.73_m2} >60 [facility] Comment on above: mL/min/1.73m2 CKD-EP I Creatinine Equation (2020) Hematocrit Auto (Bld) [Volum e fraction]Ordered By: Mohinder Quick on 05-17-2025 Hematocrit (Bld) [Volume fraction] 44.8 % 40-54 [facility] Hemoglobin A1c percentageOrd ered By: Mohinder Quick on 05-17-2025 HbA1c (Bld) [Mass fraction] 8.1 % High <5.7 [facility] Comment on above: Normal < 5.7 % Predi abetic 5.7 - 6.4 % Diabetic >or= 6.5 % Please note range changes. Hemoglobin measurementOrdere d By: Mohinder Quick on 05-17-2025 Hemoglobin (Bld) [Mass/Vol] 15.8 g/dL 13.0-16.5 [facility] Immature granulocytes/100 WB C Auto (Bld)Ordered By: Mohinder Quick on 05-17-2025 Immature granulocytes/100 WBC (Bld) 0.300 % 0.0-0.9 [facility] Comment on above: IG% - Immature Granu locytes (promyelocytes, myelocytes and metamyelocytes) > 1% indicates that a LEFT SHIFT is Present. Laboratory - Chemistry and C hemistry - challengeOrdered By: Mohinder Quick on 05-17-2025 AST [Catalytic activity/Vol] 36 U/L <38 [facility] MCV (mean corpuscular volume ) determinationOrdered By: Mohinder Quick on 05-17-2025 MCV (RBC) [Entitic vol] 97.8 fL High 80-94 [facility] Mean corpuscular hemoglobin (MCH) determinationOrdered By: Mohinder Quick on 05-17-2025 MCH (RBC) [Entitic mass] 34.5 pg High 27.0-32.0 [facility] Mean corpuscular hemoglobin concentration (MCHC) determinationOrdered By: Mohinder Quick on 05-17-2025 MCHC (RBC) [Mass/Vol] 35.3 g/dL 32-36 [facility] Mean platelet volume determi nationOrdered By: Mohinder Quick on 05-17-2025 Platelet mean volume (Bld) [Entitic vol] 9.7 fL 6.2-12.0 [facility] Monocyte percentageOrdered B y: Mohinder Quick on 05-17-2025 Monocytes/100 WBC (Bld) 8.5 % 0-10 [facility] Neutrophil percentageOrdered By: Mohinder Quick on 05-17-2025 Neutrophils/100 WBC (Bld) 50.0 % 47-70 [facility] Nucleated red blood cell per centageOrdered By: Mohinder Quick on 05-17-2025 Nucleated RBC/100 WBC (Bld) [Ratio] 0 % 0-5 [facility] Platelet countOrdered By: Joyce Quick on 05-17-2025 Platelets (Bld) [#/Vol] 128 10*3/uL Low 150-450 [facility] Potassium measurement (mass/ volume)Ordered By: Mohinder Quick on 05-17-2025 Potassium (Unsp spec) [Mass/Vol] 4.3 mmol/L 3.3-5.1 [facility] RBC Auto (Bld) [#/Vol]Ordere d By: Mohinder Quick on 05-17-2025 RBC (Bld) [#/Vol] 4.58 10*6/uL Low 4.6-6.2 [facility] Serum creatinine measurement (mass/volume)Ordered By: Mohinder Quick on 05-17-2025 Creatinine [Mass/Vol] 1.10 mg/dL 0.70-1.20 [facility] Serum globulin measurementOr dered By: Mohinder Quick on 05-17-2025 Globulin (S) [Mass/Vol] 2.9 g/dL 2.2-4.2 [facility] Serum glucose measurement (m ass/volume)Ordered By: Mohinder Quick on 05-17-2025 Glucose [Mass/Vol] 156 mg/dL High 70-99 [facility] Serum or plasma C reactive p rotein measurement (mass/volume)Ordered By: Mohinder Quick on 05-17-2025 CRP [Mass/Vol] mg/L 0.0-3.0 [facility] Serum or plasma alanine ramos otransferase (ALT) measurementOrdered By: Mohinder Quick on 05-17-2025 ALT [Catalytic activity/Vol] 51 U/L High <47 [facility] Serum or plasma albumin abbey urement (mass/volume)Ordered By: Mohinder Quick on 05-17-2025 Albumin [Mass/Vol] 4.1 g/dL 3.4-4.8 [facility] Serum or plasma albumin/glob ulin mass ratioOrdered By: Mohinder Quick on 05-17-2025 Albumin/Globulin [Mass ratio] 1.4 {ratio} 0.9-2.4 [facility] Serum or plasma alkaline brando sphatase measurementOrdered By: Mohinder Quick on 05-17-2025 ALP [Catalytic activity/Vol] 80 U/L 40-129 [facility] Serum or plasma calcium abbey urement (mass/volume)Ordered By: Mohinder Quick on 05-17-2025 Calcium [Mass/Vol] 9.7 mg/dL 7.6-11.0 [facility] Serum or plasma urea nitroge n measurement (mass/volume)Ordered By: Mohinder Quick on 05-17-2025 Urea nitrogen [Mass/Vol] 20 mg/dL High 4-19 [facility] Sodium levelOrdered By: Sujey Quick on 05-17-2025 Sodium [Moles/Vol] 141 mmol/L 133-145 [facility] T4 freeOrdered By: Mohinder burns on 05-17-2025 Free T4 [Mass/Vol] 1.40 ng/dL 0.76-1.46 [facility] TSH DL <= 0.005 mIU/L QnOrde red By: Mohinder Quick on 05-17-2025 TSH Qn 0.993 uIU/mL 0.300-4.200 [facility] Total proteinOrdered By: Dulce Quick on 05-17-2025 Protein [Mass/Vol] 7.0 g/dL 5.9-8.4 [facility] Vitamin B12 ser/plasOrdered By: Mohinder Quick on 05-17-2025 Cobalamin (Vitamin B12) [Mass/Vol] 482 pg/mL 180-914 [facility] White blood cell (WBC) count Ordered By: Mohinder Quick on 05-17-2025 WBC (Bld) [#/Vol] 6.0 10*3/uL 4.4-11.0 [facility] CBC W Auto Differential pane l (Bld)on 04-20-2025 Basophils (Bld) [#/Vol] 0.11 10*3/uL High <0.11 [facility] Comment on above: Order Comment: Speci men Type: BLOOD SPECIMEN Ordering Facility: [facility] Address: [address] [place] [address] Performed By: #### 2 276-4 #### [facility] CLIA [id number] [address] [place] [address] [place] Basophils/100 WBC (Bld) 2.0 % Normal C [facility] Comment on above: Order Comment: Speci men Type: BLOOD SPECIMEN Ordering Facility: [facility] Address: [address] [place] [address] Performed By: #### 2 276-4 #### [facility] CLIA [id number] [address] [place] [address] [place] Differential cell count method Nom (Bld) Auto Normal [facility] Comment on above: Order Comment: Speci men Type: BLOOD SPECIMEN Ordering Facility: [facility] Address: [address] [place] [address] Performed By: #### 2 276-4 #### [facility] CLIA [id number] [address] [place] [address] [place] Eosinophils (Bld) [#/Vol] 0.29 10*3/uL Normal <0.46 [facility] Comment on above: Order Comment: Speci men Type: BLOOD SPECIMEN Ordering Facility: [facility] Address: [address] [place] [address] Performed By: #### 2 276-4 #### [facility] CLIA [id number] [address] [place] [address] [place] Eosinophils/100 WBC (Bld) 5.2 % Normal [facility] Comment on above: Order Comment: Speci men Type: BLOOD SPECIMEN Ordering Facility: [facility] Address: [address] [place] [address] Performed By: #### 2 276-4 #### [facility] CLIA [id number] [address] [place] [address] [place] Erythrocyte distribution width (RBC) [Ratio] 13.2 % Normal 11.5-15.0 [facility] Comment on above: Order Comment: Speci men Type: BLOOD SPECIMEN Ordering Facility: [facility] Address: [address] [place] [address] Performed By: #### 2 276-4 #### [facility] CLIA [id number] [address] [place] [address] [place] Hematocrit (Bld) [Volume fraction] 43.7 % Normal 39.0-51.0 [facility] Comment on above: Order Comment: Speci men Type: BLOOD SPECIMEN Ordering Facility: [facility] Address: [address] [place] [address] Performed By: #### 2 276-4 #### [facility] CLIA [id number] [address] [place] [address] [place] Hemoglobin (Bld) [Mass/Vol] 15.4 g/dL Normal 13.0-17.0 [facility] Comment on above: Order Comment: Speci men Type: BLOOD SPECIMEN Ordering Facility: [facility] Address: [address] [place] [address] Performed By: #### 2 276-4 #### [facility] CLIA [id number] [address] [place] [address] [place] Immature granulocytes (Bld) [#/Vol] 10*3/uL Normal <0.10 [facility] Comment on above: Order Comment: Speci men Type: BLOOD SPECIMEN Ordering Facility: [facility] Address: [address] [place] [address] Performed By: #### 2 276-4 #### [facility] CLIA [id number] [address] [place] [address] [place] Immature granulocytes/100 WBC (Bld) 0.4 % Normal [facility] Comment on above: Order Comment: Speci men Type: BLOOD SPECIMEN Ordering Facility: [facility] Address: [address] [place] [address] Performed By: #### 2 276-4 #### [facility] CLIA [id number] [address] [place] [address] [place] Lymphocytes (Bld) [#/Vol] 1.72 10*3/uL Normal 1.00-4.0 0 [facility] Comment on above: Order Comment: Speci men Type: BLOOD SPECIMEN Ordering Facility: [facility] Address: [address] [place] [address] Performed By: #### 2 276-4 #### [facility] CLIA [id number] [address] [place] [address] [place] Lymphocytes/100 WBC (Bld) 31.1 % Normal [facility] Comment on above: Order Comment: Speci men Type: BLOOD SPECIMEN Ordering Facility: [facility] Address: [address] [place] [address] Performed By: #### 2 276-4 #### [facility] CLIA [id number] [address] [place] [address] [place] MCH (RBC) [Entitic mass] 33.8 pg Normal 26.0-34.0 [facility] Comment on above: Order Comment: Speci men Type: BLOOD SPECIMEN Ordering Facility: [facility] Address: [address] [place] [address] Performed By: #### 2 276-4 #### [facility] CLIA [id number] [address] [place] [address] [place] MCHC (RBC) [Mass/Vol] 35.2 g/dL Normal 30.5-36.0 [facility] Comment on above: Order Comment: Speci men Type: BLOOD SPECIMEN Ordering Facility: [facility] Address: [address] [place] [address] Performed By: #### 2 276-4 #### [facility] CLIA [id number] [address] [place] [address] [place] MCV (RBC) [Entitic vol] 95.8 fL Normal 80.0-100.0 [facility] Comment on above: Order Comment: Speci men Type: BLOOD SPECIMEN Ordering Facility: [facility] Address: [address] [place] [address] Performed By: #### 2 276-4 #### [facility] CLIA [id number] [address] [place] [address] [place] Monocytes (Bld) [#/Vol] 0.42 10*3/uL Normal <0.87 [facility] Comment on above: Order Comment: Speci men Type: BLOOD SPECIMEN Ordering Facility: [facility] Address: [address] [place] [address] Performed By: #### 2 276-4 #### [facility] CLIA [id number] [address] [place] [address] [place] Monocytes/100 WBC (Bld) 7.6 % Normal [facility] Comment on above: Order Comment: Speci men Type: BLOOD SPECIMEN Ordering Facility: [facility] Address: [address] [place] [address] Performed By: #### 2 276-4 #### [facility] CLIA [id number] [address] [place] [address] [place] Neutrophils (Bld) [#/Vol] 2.97 10*3/uL Normal 1.45-7.5 0 [facility] Comment on above: Order Comment: Speci men Type: BLOOD SPECIMEN Ordering Facility: [facility] Address: [address] [place] [address] Performed By: #### 2 276-4 #### [facility] CLIA [id number] [address] [place] [address] [place] Neutrophils/100 WBC (Bld) 53.7 % Normal [facility] Comment on above: Order Comment: Speci men Type: BLOOD SPECIMEN Ordering Facility: [facility] Address: [address] [place] [address] Performed By: #### 2 276-4 #### [facility] CLIA [id number] [address] [place] [address] [place] Nucleated RBC (Bld) [#/Vol] 10*3/uL Normal <0.01 [facility] Comment on above: Order Comment: Speci men Type: BLOOD SPECIMEN Ordering Facility: [facility] Address: [address] [place] [address] Performed By: #### 2 276-4 #### [facility] CLIA [id number] [id number] [address] [place] Nucleated RBC/100 WBC (Bld) [Ratio] 0.0 /100 WBC Normal [facility] Comment on above: Order Comment: Speci men Type: BLOOD SPECIMEN Ordering Facility: [facility] Address: [address] [place] [address] Performed By: #### 2 276-4 #### [facility] CLIA [id number] [address] [place] [address] [place] Platelet mean volume (Bld) [Entitic vol] 9.9 fL Normal 9.0-12.7 [facility] Comment on above: Order Comment: Speci men Type: BLOOD SPECIMEN Ordering Facility: [facility] Address: [address] [place] [address] Performed By: #### 2 276-4 #### [facility] CLIA [id number] [address] [place] [address] [place] Platelets (Bld) [#/Vol] 144 10*3/uL Low 150-400 [facility] Comment on above: Order Comment: Speci men Type: BLOOD SPECIMEN Ordering Facility: [facility] Address: [address] [place] [address] Performed By: #### 2 276-4 #### [facility] CLIA [id number] [address] [place] [address] [place] RBC (Bld) [#/Vol] 4.56 10*6/uL Normal 4.20-6.00 [facility] Comment on above: Order Comment: Speci men Type: BLOOD SPECIMEN Ordering Facility: [facility] Address: [address] [place] [address] Performed By: #### 2 276-4 #### [facility] CLIA [id number] [address] [place] [address] [place] WBC (Bld) [#/Vol] 5.53 10*3/uL Normal 3.70-11.00 [facility] Comment on above: Order Comment: Speci men Type: BLOOD SPECIMEN Ordering Facility: [facility] Address: [address] [place] [address] Performed By: #### 2 276-4 #### [facility] CLIA [id number] [address] [place] [address] [place] [address] [place] CNOVSPon 04-20-2025 CNOVSP Visit (SP) Office (HEMAWS) DALE SARABIA ([id number]) 1955 M Date Time Provider Department 04/20/25 8:50 AM MOSES JORDAN During your visit today, we recorded the following information about you: Temperature Pulse Blood pressure Weight 98.3 degrees 71/minute 150/81 124.7 kg Height 1.69 m Moses Jordan DO 04/20/2025 9:24 AM Signed Diagnosis: 1) Polycythemia. 2) History of pulmonary embolism. 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 I reviewed CBCs from [facility]. Hgb=18.4 gm/dl 06/2009. CT A/P in February 2013-no sign recurrent RCC. Had c-scope. One polyp. On Androgel for about 9 yrs. Dose of Androgel was decreased by 50%. Hg 10/04/2015 was 20 g/dl despite doing so. Cardiac catheterization and was noted to have a [...] He received hydration due to increasing creatinine. Current therapy: 1) Hydrea 500 mg once daily. 2) Therapeutic phlebotomy ~every 2 weeks. Presents for ongoing hematologic management. Interim history: Tolerating Hydrea well. Occasional nausea which he attributes to taking doxycycline daily for previous hip infection. He doesn't recall nausea prior to doxycycline. Doing his best to stay with plant based diet. Appetite not as good as it was. Weight up. He continues on aspirin. He has had no unusual bleeding or unexplained bruising. CLARK stable. Back on inhaler--summer humidity and seasonal allergies. Taking Lasix prn swelling legs. PMH, medications and allergies personally reviewed by me today. Any changes documented in appropriate section. ROS: Constitutional: Appetite and energy are normal. Neuro: Denies imbalance. HEENT: No recent change in voice, vision or hearing. Resp: See above. CVS: Denies exertional chest pain, PND, orthopnea and LE edema. GI: Denies reflux, n/v, change in bowel habits and abdominal pain. : No dysuria or gross hematuria. Musculoskeletal: Denies bone, back, joint and muscular pain. Derm: No rash. Heme: See above. Psych: Normal mood. PHYSICAL EXAM: Vitals: Blood pressure 150/81, pulse 71, temperature 36.8 ?C (98.3 ?F), temperature source Temporal, height 169 cm (5' 6.54), weight 124.7 kg (275 lb), SpO2 95%. Well-appearing and in no acute distress. EYES: Sclerae are anicteric bilaterally. LYMPHATIC: There is no palpable cervical, supraclavicular adenopathy. CARDIOVASCULAR: Rhythm is regular. ABDOMEN: The abdomen is nondistended. Extremities: Free of edema. SKIN: No jaundice or rash. ASSESSMENT/PLAN: (D75.1) Secondary polycythemia (primary encounter diagnosis) Assessment: -Previous molecular workup was negative for common mutations associated with polycythemia vera. -He became quite symptomatic with significant rise in hematocrit when not undergoing phlebotomy. -RBC count, hemoglobin and hematocrit have been lower and much more stable on Hydrea in addition to routine phlebotomy. -Again discussed rationale for ongoing Hydrea. Although it is unknown that maintaining hematocrit under 45% with patients with secondary polycythemia, he was quite symptomatic when he was running a higher hematocrit. He has had no bleeding issues. We discussed plan for continued monitoring with CBC every 3 months. Advised him to contact the office should he develop any signs of bleeding or symptoms suggestive of anemia such as worsening fatigue, worsening shortness of breath, lightheadedness or chest pain. Plan: -Continue Hydrea 500 mg once a day. -CBC every 3 months. -Stop phlebotomy--will perform only if gets symptomatic. 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 -CT in March 2018 showed stable findings compared to 2014. Plan: -Imaging as indicated clinically. (I27.82) Other chronic pulmonary embolism without acute cor pulmonale (HCC) Assessment: - Previously stopped apixaban after discussion with his cobbler upper. Plan: -Continue ASA 81 mg daily. (D69.6) Thrombocytopenia Assessment: - (more content not included)... Normal [facility] Ferritin SerPl-ncon 2024 Ferritin [Mass/Vol] 225.0 ng/mL Normal 30.3-565.7 [facility] Comment on above: Order Comment: Speci men Type: BLOOD SPECIMEN Ordering Facility: [facility] Address: [address] [place] [address] Performed By: #### 2 276-4 #### [facility] CLIA [id number] [address] [place] [address] [place] CNOVon 02-01-2025 CNOV Office Visit (AGPOB1 ) DALE SARABIA ([id number]) 1955 M Date Time Provider Department 02/01/25 9:00 AM GOYO CHENG AGPOB1 During your visit today, we recorded the following information about you: Respiration Weight Height 20/minute 121.1 kg 1.702 m Goyo Cheng MD 02/01/2025 9:40 AM Signed Chief complaint: Left hip pain. History of present illness: Patient returns today follow-up guarding his left hip. Extensive history of osteomyelitis with cement spacer and revision total hip arthroplasty. Is having pain on the lateral aspect of his left hip. Difficulty sitting on that side. When he is doing leg raises at night he feels a crunching or popping sensation over the lateral aspect of his hip. Continues to be on antibiotics per infectious disease. For the patient's past medical history, past surgical history, medications, allergies, family history, social history, and review of systems please refer to medical history in chart. Physical exam: The patient is alert and oriented no acute distress. Answers questions properly. Has a normal affect. Ambulatory with walker. Examination of left lower extremity shows it to be neuro vas intact. Incision well-healed. Tender to palpation over greater trochanter. This does reproduce his symptoms. No pain down his leg. Imaging: Please refer to the radiographic interpretation. Assessment: #1 left total hip arthroplasty. #2 left femur osteomyelitis. #3 trochanteric bursitis left hip. Plan at this time I do think he has a component of trochanteric bursitis. He has not done any formal exercises or therapy for some time. I do think this would be of benefit. We also discussed Voltaren gel. I will see him back in 2 months for repeat evaluation. If there is any questions or concerns prior to the next encounter, he will contact the office. His questions were answered. 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 Allergies As of Date: 02/01/2025 Noted Allergy Reaction SITAGLIPTIN 07/03/2021 2 - Rash CHOCOLATE 08/02/2011 12 - Shortness of Breath FENNEL SEED 09/02/2017 12 - Shortness of Breath MILK 09/01/2018 12 - Shortness of Breath PEANUT 08/02/2011 12 - Shortness of Breath THEOPHYLLINE 02/25/2006 5 - Intolerance Comments: very lethargic and muscle cramps Date Reviewed: 02/01/2025 Reviewed by: Meghann Eckert Tech - Fully Assessed Reason for Visit: Established Patient [175] Primary Visit Diagnosis:Status post total replacement of left hip [Z96.642] Other Visit Diagnoses:Osteomyeliti s of left femur, unspecified type (HCC) [M86.9] Trochanteric bursitis of left hip [M70.62] Order(s):XR FEMUR GENERAL 2V AP/LAT LEFT [6413284] Order #: [id number] XR PELVIS 1V AP [1750950] Order #: [id number] CONSULT TO PHYSICAL THERAPY [9032] Order #: [id number]: 1 FUTURE Prescriptions as of 02/01/2025 - doxycycline monohydrate (MONODOX) 100 mg capsule Take 1 capsule by mouth once daily. - hydroxyurea (HYDREA) 500 mg capsule Take 1 capsule by mouth once daily. - traZODone (DESYREL) 50 mg tablet Take 50 mg by mouth once daily. - furosemide (LASIX) 40 mg tablet Take 20 mg by mouth once daily. - Amoxicillin 500 mg tablet Take 4 tablets 1 hour prior to dental procedure. - aspirin, enteric coated (ASPIRIN, ENTERIC COATED) 81 mg EC tablet Take 1 tablet by mouth twice daily for 21 days. - busPIRone (BUSPAR) 5 mg tablet Take 5 mg by mouth twice daily. - simethicone, chewable (MYLICON) 80 mg chewable tablet Take 80 mg by mouth three times daily with meals. PRN - tamsulosin (FLOMAX) 0.4 mg Take by mouth daily at bedtime. - sodium chloride (AYR, OCEAN) 0.65 % nasal spray Use in the nose as needed. - levothyroxine (SYNTHROID) 100 mcg tablet Take 200 mcg by mouth once daily. - metFORMIN (GLUCOPHAGE) 500 mg tablet Take 500 mg by mouth twice daily with meals. - glipiZIDE (GLUCOTROL XL) 5 mg 24 hr tablet Take 5 mg by mouth once daily. - gabapentin (NEURONTIN) 100 mg capsule Take one capsule in AM, one capsule at 1PM AND three capsules at bedtime. - TOPROL XL 25 mg 24 hr tablet Take 25 mg by mouth once daily. Problem List As Of Date 02/01/2025 Noted Resolved Obesity, unspecified [E66.9] Unspecified essential hypertension [I10] Unspecified hypothyroidism [E03.9] Dysthymic disorder [F34.1] Asthma [J45.909] 01/17/2009 Other testicular hypofunction [E29.1] 01/17/2009 Obstructive sleep apnea [G47.33] 01/17/2009 Urinary calculus, unspecified [N20.9] 01/17/2009 Allergic rhinitis, cause unspecified [J30.9] 01/18/2009 10/05/2022 Anticipated difficulty with intubation [Z78.9] 01/18/2009 Impaired fasting glucose [R73.01] 01/09/2010 CAD (coronary (more content not included)... Normal [facility] No Panel Informationon 02-01 [facility] XR Femur - left AP and Later kristofer 02-01-2025 AP and lateral view left femur ordered and obtained in the office interpreted by myself. Stable press-fit revision total hip arthroplasty left hip. [facility] Radiology Study observation (narrative) [facility] XR Pelvis APon 02-01-2025 AP pelvis ordered an d obtained in the office today interpreted by myself. Stable appearing revision hip arthroplasty left hip. [facility] Radiology Study observation (narrative) [facility] CBC W Auto Differential pane l (Bld)on 01-27-2025 Basophils (Bld) [#/Vol] 0.10 10*3/uL Normal <0.11 [facility] Comment on above: Order Comment: Speci men Type: BLOOD SPECIMEN Ordering Facility: [facility] Address: [address] [place] [address] Performed By: #### 5 7021-8 #### [facility] CLIA [id number] [address] [place], [place] [address] [place] Basophils/100 WBC (Bld) 1.5 % Normal C [facility] Comment on above: Order Comment: Speci men Type: BLOOD SPECIMEN Ordering Facility: [facility] Address: [address] [place] [address] Performed By: #### 5 7021-8 #### [facility] CLIA [id number] [address] [place] [address] [place] Differential cell count method Nom (Bld) Auto Normal [facility] Comment on above: Order Comment: Speci men Type: BLOOD SPECIMEN Ordering Facility: [facility] Address: [address] [place] [address] Performed By: #### 5 7021-8 #### [facility] CLIA [id number] [address] [place] [address] [place] Eosinophils (Bld) [#/Vol] 0.35 10*3/uL Normal <0.46 [facility] Comment on above: Order Comment: Speci men Type: BLOOD SPECIMEN Ordering Facility: [facility] Address: [address] [place] [address] Performed By: #### 5 7021-8 #### [facility] CLIA [id number] [address] [place] [address] [place] Eosinophils/100 WBC (Bld) 5.2 % Normal [facility] Comment on above: Order Comment: Speci men Type: BLOOD SPECIMEN Ordering Facility: [facility] Address: [address] [place], [place] [address] Performed By: #### 5 7021-8 #### [facility] CLIA [id number] [address] [place] [address] [place] Erythrocyte distribution width (RBC) [Ratio] 13.2 % Normal 11.5-15.0 [facility] Comment on above: Order Comment: Speci men Type: BLOOD SPECIMEN Ordering Facility: [facility] Address: [address] [place] [address] Performed By: #### 5 7021-8 #### [facility] CLIA [id number] [address] [place] [address] [place] Hematocrit (Bld) [Volume fraction] 44.8 % Normal 39.0-51.0 [facility] Comment on above: Order Comment: Speci men Type: BLOOD SPECIMEN Ordering Facility: [facility] Address: [address] [place] [address] Performed By: #### 5 7021-8 #### [facility] CLIA [id number] [address] [place] [address] [place] Hemoglobin (Bld) [Mass/Vol] 15.9 g/dL Normal 13.0-17.0 [facility] Comment on above: Order Comment: Speci men Type: BLOOD SPECIMEN Ordering Facility: [facility] Address: [address] [place] [address] Performed By: #### 5 7021-8 #### [facility] CLIA [id number] [address] [place] [address] [place] Immature granulocytes (Bld) [#/Vol] 0.03 10*3/uL Normal <0.10 [facility] Comment on above: Order Comment: Speci men Type: BLOOD SPECIMEN Ordering Facility: [facility] Address: [address] [place] [address] Performed By: #### 5 7021-8 #### [facility] CLIA [id number] [address] [place] [address] [place] Immature granulocytes/100 WBC (Bld) 0.4 % Normal [facility] Comment on above: Order Comment: Speci men Type: BLOOD SPECIMEN Ordering Facility: [facility] Address: [address] [place] [address] Performed By: #### 5 7021-8 #### [facility] CLIA [id number] [address] [place] [address] [place] Lymphocytes (Bld) [#/Vol] 2.16 10*3/uL Normal 1.00-4.0 0 [facility] Comment on above: Order Comment: Speci men Type: BLOOD SPECIMEN Ordering Facility: [facility] Address: [address] [place] [address] Performed By: #### 5 7021-8 #### [facility] CLIA [id number] [address] [place] [address] [place] Lymphocytes/100 WBC (Bld) 32.2 % Normal [facility] Comment on above: Order Comment: Speci men Type: BLOOD SPECIMEN Ordering Facility: [facility] Address: [address] [place], [place] [address] Performed By: #### 5 7021-8 #### [facility] CLIA [id number] [address] [place] [address] [place] MCH (RBC) [Entitic mass] 33.7 pg Normal 26.0-34.0 [facility] Comment on above: Order Comment: Speci men Type: BLOOD SPECIMEN Ordering Facility: [facility] Address: [address] [place], [place] [address] Performed By: #### 5 7021-8 #### [id number] [address] [place] [address] [place] MCHC (RBC) [Mass/Vol] 35.5 g/dL Normal 30.5-36.0 [facility] Comment on above: Order Comment: Speci men Type: BLOOD SPECIMEN Ordering Facility: [facility] Address: [address] [place] [address] Performed By: #### 5 7021-8 #### [facility] CLIA [id number] [address] [place] [address] [place] MCV (RBC) [Entitic vol] 94.9 fL Normal 80.0-100.0 C [facility] Comment on above: Order Comment: Speci men Type: BLOOD SPECIMEN Ordering Facility: [facility] Address: [address] [place] [address] Performed By: #### 5 7021-8 #### [facility] CLIA [id number] [address] [place] [address] [place] Monocytes (Bld) [#/Vol] 0.62 10*3/uL Normal <0.87 [facility] Comment on above: Order Comment: Speci men Type: BLOOD SPECIMEN Ordering Facility: [facility] Address: [address] [place] [address] Performed By: #### 5 7021-8 #### [facility] CLIA [id number] [address] [place] [address] [place] Monocytes/100 WBC (Bld) 9.3 % Normal [facility] Comment on above: Order Comment: Speci men Type: BLOOD SPECIMEN Ordering Facility: [facility] Address: [address] [place] [address] Performed By: #### 5 7021-8 #### [facility] CLIA [id number] [address] [place] [address] [place] Neutrophils (Bld) [#/Vol] 3.44 10*3/uL Normal 1.45-7.5 0 [facility] Comment on above: Order Comment: Speci men Type: BLOOD SPECIMEN Ordering Facility: [facility] Address: [address] [place] [address] Performed By: #### 5 7021-8 #### [facility] CLIA [id number] [address] [place] [address] [place] Neutrophils/100 WBC (Bld) 51.4 % Normal [facility] Comment on above: Order Comment: Speci men Type: BLOOD SPECIMEN Ordering Facility: [facility] Address: [address] [place] [address] Performed By: #### 5 7021-8 #### [facility] CLIA [id number] [address] [place] [address] [place] Nucleated RBC (Bld) [#/Vol] 10*3/uL Normal <0.01 [facility] Comment on above: Order Comment: Speci men Type: BLOOD SPECIMEN Ordering Facility: [facility] Address: [address] [place] [address] Performed By: #### 5 7021-8 #### [facility] CLIA [id number] [address] [place] [address] [place] Nucleated RBC/100 WBC (Bld) [Ratio] 0.0 /100 WBC Normal [facility] Comment on above: Order Comment: Speci men Type: BLOOD SPECIMEN Ordering Facility: [facility] Address: [address] [place], [place] [address] Performed By: #### 5 7021-8 #### [facility] CLIA [id number] [address] [place] [address] [place] Platelet mean volume (Bld) [Entitic vol] 9.9 fL Normal 9.0-12.7 [facility] Comment on above: Order Comment: Speci men Type: BLOOD SPECIMEN Ordering Facility: [facility] Address: [address] [place], [place] [address] Performed By: #### 5 7021-8 #### [facility] CLIA [id number] [address] [place] [address] [place] Platelets (Bld) [#/Vol] 155 10*3/uL Normal 150-400 [facility] Comment on above: Order Comment: Speci men Type: BLOOD SPECIMEN Ordering Facility: [facility] Address: [address] [place] [address] Performed By: #### 5 7021-8 #### [facility] CLIA [id number] [address] [place] [address] [place] RBC (Bld) [#/Vol] 4.72 10*6/uL Normal 4.20-6.00 [facility] Comment on above: Order Comment: Speci men Type: BLOOD SPECIMEN Ordering Facility: [facility] Address: [address] [place] [address] Performed By: #### 5 7021-8 #### [facility] CLIA [id number] [address] [place] [address] [place] WBC (Bld) [#/Vol] 6.70 10*3/uL Normal 3.70-11.00 [facility] Comment on above: Order Comment: Speci men Type: BLOOD SPECIMEN Ordering Facility: [facility] Address: [address] [place] [address] Performed By: #### 5 7021-8 #### [facility] CLIA [id number] [address] [place], [place] [address] [place] Ferritin SerPl-mCncon 2024 Ferritin [Mass/Vol] 214.0 ng/mL Normal 30.3-565.7 [facility] Comment on above: Order Comment: Speci men Type: BLOOD SPECIMEN Ordering Facility: [facility] Address: [address] [place] [address] Performed By: #### 2 276-4 #### [facility] CLIA [id number] [address] [place] [address] [place] Dario 01-18-2025 CNPN Telephone (AGPOB1) DALE SARABIA ([id number]) 1955 M Date Time Provider Department 01/18/25 GOYO CHENG During your visit today, we recorded the following information about you: Nata Franco 01/18/2025 1:53 PM Signed Spoke to patient and scheduled them with Dr. Cheng on 02/01/25 at 9 am at B. Patient is agreeable to date, time, and location. Nata Franco January 18, 2025 1:52 PM Allergies As of Date: 01/18/2025 Noted Allergy Reaction SITAGLIPTIN 07/03/2021 2 - Rash CHOCOLATE 08/02/2011 12 - Shortness of Breath FENNEL SEED 09/02/2017 12 - Shortness of Breath MILK 09/01/2018 12 - Shortness of Breath PEANUT 08/02/2011 12 - Shortness of Breath THEOPHYLLINE 02/25/2006 5 - Intolerance Comments: very lethargic and muscle cramps Date Reviewed: 11/02/2024 Reviewed by: Roxane Kumar MA - Fully Assessed Reason for Visit: Appointment [186] Prescriptions as of 01/18/2025 - doxycycline monohydrate (MONODOX) 100 mg capsule Take 1 capsule by mouth once daily. - hydroxyurea (HYDREA) 500 mg capsule Take 1 capsule by mouth once daily. - traZODone (DESYREL) 50 mg tablet Take 50 mg by mouth once daily. - furosemide (LASIX) 40 mg tablet Take 20 mg by mouth once daily. - Amoxicillin 500 mg tablet Take 4 tablets 1 hour prior to dental procedure. - aspirin, enteric coated (ASPIRIN, ENTERIC COATED) 81 mg EC tablet Take 1 tablet by mouth twice daily for 21 days. - busPIRone (BUSPAR) 5 mg tablet Take 5 mg by mouth twice daily. - simethicone, chewable (MYLICON) 80 mg chewable tablet Take 80 mg by mouth three times daily with meals. PRN - tamsulosin (FLOMAX) 0.4 mg Take by mouth daily at bedtime. - sodium chloride (AYR, OCEAN) 0.65 % nasal spray Use in the nose as needed. - levothyroxine (SYNTHROID) 100 mcg tablet Take 200 mcg by mouth once daily. - metFORMIN (GLUCOPHAGE) 500 mg tablet Take 500 mg by mouth twice daily with meals. - glipiZIDE (GLUCOTROL XL) 5 mg 24 hr tablet Take 5 mg by mouth once daily. - gabapentin (NEURONTIN) 100 mg capsule Take one capsule in AM, one capsule at 1PM AND three capsules at bedtime. - TOPROL XL 25 mg 24 hr tablet Take 25 mg by mouth once daily. Problem List As Of Date 01/18/2025 Noted Resolved Obesity, unspecified [E66.9] Unspecified essential hypertension [I10] Unspecified hypothyroidism [E03.9] Dysthymic disorder [F34.1] Asthma [J45.909] 01/17/2009 Other testicular hypofunction [E29.1] 01/17/2009 Obstructive sleep apnea [G47.33] 01/17/2009 Urinary calculus, unspecified [N20.9] 01/17/2009 Allergic rhinitis, cause unspecified [J30.9] 01/18/2009 10/05/2022 Anticipated difficulty with intubation [Z78.9] 01/18/2009 Impaired fasting glucose [R73.01] 01/09/2010 CAD (coronary artery disease) [I25.10] 05/27/2011 Renal cell carcinoma (HCC) [C64.9] 10/11/2011 Secondary polycythemia [D75.1] 10/16/2015 Anxiety about health [R45.89] 04/17/2018 Fear of other medical care [F40.232] 04/17/2018 Pulmonary embolus (HCC) [I26.99] 09/01/2018 10/05/2022 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/28/2022 Malnutrition of mild degree (HCC) [E44.1] 09/28/2022 03/02/2024 Obesity, Class I, BMI 30-34.9 [E66.811] 09/28/2022 Type 2 diabetes mellitus (HCC) [E11.9] 05/10/2011 Prosthetic joint infection, subsequent encounte*11/22/2022 Obesity, morbid, BMI 40.0-49.9 (HCC) [E66.01] 01/22/2023 Chronic obstructive pulmonary disease, unspecif*01/22/2023 Thrombocytopenia (HCC) [D69.6] 01/22/2023 Encounter Status:Closed by NATA FRANCO on 01/18/25 Normal [facility] Cardiovascular stress test r eportOrdered By: Rafael Torres on 12-13-2024 Study report [facility] [address] [place] [place] [address] MR#: [id number] Acct: [id number] Name: DALE SARABIA Rep #: [id number] : 1955 69 From: Rafael Torres MD Primary Care: Dr. Mohinder Quick MD Stat us: REG CLI Referring Dr: Rafael Torres MD Sex: M C Stress Test Report Pharmacologic myocardial perfusion stress test. 69-year-old man with a history of coronary artery disease and stenting Resting EKG demonstrates sinus rhythm with a rate of 64 bpm. Resting blood pressure is 148/82 mmHg. 0.4 mg of regadenoson was infused per usual protocol followed by rapid intravenous saline flush injection. Continuous EKG monitoringwas performed. The maximum heart rate was 78 bpm which was 52% of max impacted heart rate the maximum workload was 1 metabolic equivalent. At rest there were no ST or T wave changes noted to suggest ischemia and at peak infusion nonspecific ST changes were noted which did not meet the criteria for ischemia. No clinical angina is noted. The final blood pressure was 132/72 mmHg. Myocardial perfusion protocol. 14.8 mCi of technetium 99m sestamibi was injected at rest. 0.4 mg of regadenoson was infused per usual protocol. At peak infusion 45 mCi of technetium 99m sestamibi was injected stress images were obtained stress and rest images were reconstructed and compared in the short axis vertical long and horizontal long axis. Gated images were also obtained. Perfusion SPECT analysis: Review of the stress images demonstrate normal uptake of tracer noted in all areas of the myocardium. The resting images similar demonstrated normal uptake of tracer noted in all areas of the myocardium. No areas of reversibility are noted to suggest ischemia and no previous infarct is noted. Gated SPECT analysis: The gated ejection fraction is 78%. Conclusion: Normal pharmacologic myocardial perfusion stress test. Preserved ejection fraction. 12/13/24713 Date _ Rafael Torres MD CC: Dr. Rafael Torres MD; Dr. Mohinder Quick MD ~ Date Dictated: 12/13/24712 Date Transcribed: 12/13/24712 Electrical Superintendent: [place] Signed [facility] Work Phone: CBC W Auto Differential pane l (Bld)on 11-04-2024 Basophils (Bld) [#/Vol] 0.10 10*3/uL Normal <0.11 [facility] Comment on above: Order Comment: Speci men Type: BLOOD SPECIMEN Ordering Facility: [facility] Address: [address] [place] [address] Performed By: #### 2 276-4 #### [facility] CLIA [id number] [address] [place] [address] [place] Basophils/100 WBC (Bld) 1.5 % Normal [facility] Comment on above: Order Comment: Speci men Type: BLOOD SPECIMEN Ordering Facility: [facility] Address: [address] [place] [address] Performed By: #### 2 276-4 #### [facility] CLIA [id number] [address] [place] [address] [place] Differential cell count method Nom (Bld) Auto Normal [facility] Comment on above: Order Comment: Speci men Type: BLOOD SPECIMEN Ordering Facility: [facility] Address: [address] [place] [address] Performed By: #### 2 276-4 #### [facility] CLIA [id number] [address] [place] [address] [place] Eosinophils (Bld) [#/Vol] 0.32 10*3/uL Normal <0.46 [facility] Comment on above: Order Comment: Speci men Type: BLOOD SPECIMEN Ordering Facility: [facility] Address: [address] [place] [address] Performed By: #### 2 276-4 #### [facility] CLIA [id number] [address] [place] [address] [place] Eosinophils/100 WBC (Bld) 4.6 % Normal [facility] Comment on above: Order Comment: Speci men Type: BLOOD SPECIMEN Ordering Facility: [facility] Address: [address] [place] [address] Performed By: #### 2 276-4 #### [facility] CLIA [id number] [address] [place] [address] [place] Erythrocyte distribution width (RBC) [Ratio] 13.5 % Normal 11.5-15.0 [facility] Comment on above: Order Comment: Speci men Type: BLOOD SPECIMEN Ordering Facility: [facility] Address: [address] [place] [address] Performed By: #### 2 276-4 #### [facility] CLIA [id number] [address] [place] [address] [place] Hematocrit (Bld) [Volume fraction] 44.2 % Normal 39.0-51.0 [facility] Comment on above: Order Comment: Speci men Type: BLOOD SPECIMEN Ordering Facility: [facility] Address: [address] [place] [address] Performed By: #### 2 276-4 #### [facility] CLIA [id number] [address] [place] [address] [place] Hemoglobin (Bld) [Mass/Vol] 15.8 g/dL Normal 13.0-17.0 [facility] Comment on above: Order Comment: Speci men Type: BLOOD SPECIMEN Ordering Facility: [facility] Address: [address] [place] [address] Performed By: #### 2 276-4 #### [facility] CLIA [id number] [address] [place] [address] [place] Immature granulocytes (Bld) [#/Vol] 0.03 10*3/uL Normal <0.10 [facility] Comment on above: Order Comment: Speci men Type: BLOOD SPECIMEN Ordering Facility: [facility] Address: [address] [place] [address] Performed By: #### 2 276-4 #### [facility] CLIA [id number] [address] [place] [address] [place] Immature granulocytes/100 WBC (Bld) 0.4 % Normal [facility] Comment on above: Order Comment: Speci men Type: BLOOD SPECIMEN Ordering Facility: [facility] Address: [address] [place] [address] Performed By: #### 2 276-4 #### [facility] CLIA [id number] [address] [place] [address] [place] Lymphocytes (Bld) [#/Vol] 2.03 10*3/uL Normal 1.00-4.0 0 [facility] Comment on above: Order Comment: Speci men Type: BLOOD SPECIMEN Ordering Facility: [facility] Address: [address] [place] [address] Performed By: #### 2 276-4 #### [facility] CLIA [id number] [address] [place] [address] [place] Lymphocytes/100 WBC (Bld) 29.5 % Normal [facility] Comment on above: Order Comment: Speci men Type: BLOOD SPECIMEN Ordering Facility: [facility] Address: [address] [place] [address] Performed By: #### 2 276-4 #### [facility] CLIA [id number] [address] [place] [address] [place] MCH (RBC) [Entitic mass] 34.5 pg High 26.0-34.0 [facility] Comment on above: Order Comment: Speci men Type: BLOOD SPECIMEN Ordering Facility: [facility] Address: [address] [place] [address] Performed By: #### 2 276-4 #### [facility] CLIA [id number] [address] [place] [address] [place] MCHC (RBC) [Mass/Vol] 35.7 g/dL Normal 30.5-36.0 [facility] Comment on above: Order Comment: Speci men Type: BLOOD SPECIMEN Ordering Facility: [facility] Address: [address] [place] [address] Performed By: #### 2 276-4 #### [facility] CLIA [id number] [address] [place] [address] [place] MCV (RBC) [Entitic vol] 96.5 fL Normal 80.0-100.0 [facility] Comment on above: Order Comment: Speci men Type: BLOOD SPECIMEN Ordering Facility: [facility] Address: [address] [place] [address] Performed By: #### 2 276-4 #### [facility] CLIA [id number] [address] [place] [address] [place] Monocytes (Bld) [#/Vol] 0.61 10*3/uL Normal <0.87 [facility] Comment on above: Order Comment: Speci men Type: BLOOD SPECIMEN Ordering Facility: [facility] Address: [address] [place] [address] Performed By: #### 2 276-4 #### [facility] CLIA [id number] [address] [place] [address] [place] Monocytes/100 WBC (Bld) 8.9 % Normal [facility] Comment on above: Order Comment: Speci men Type: BLOOD SPECIMEN Ordering Facility: [facility] Address: [address] [place] [address] Performed By: #### 2 276-4 #### [facility] CLIA [id number] [address] [place] [address] [place] Neutrophils (Bld) [#/Vol] 3.80 10*3/uL Normal 1.45-7.5 0 [facility] Comment on above: Order Comment: Speci men Type: BLOOD SPECIMEN Ordering Facility: [facility] Address: [address] [place] [address] Performed By: #### 2 276-4 #### [facility] CLIA [id number] [address] [place] [address] [place] Neutrophils/100 WBC (Bld) 55.1 % Normal [facility] Comment on above: Order Comment: Speci men Type: BLOOD SPECIMEN Ordering Facility: [facility] Address: [address] [place] [address] Performed By: #### 2 276-4 #### [facility] CLIA [id number] [address] [place] [address] [place] Nucleated RBC (Bld) [#/Vol] 10*3/uL Normal <0.01 [facility] Comment on above: Order Comment: Speci men Type: BLOOD SPECIMEN Ordering Facility: [facility] Address: [address] [place] [address] Performed By: #### 2 276-4 #### [facility] CLIA [id number] [address] [place] [address] [place] Nucleated RBC/100 WBC (Bld) [Ratio] 0.0 /100 WBC Normal [facility] Comment on above: Order Comment: Speci men Type: BLOOD SPECIMEN Ordering Facility: [facility] Address: [address] [place] [address] Performed By: #### 2 276-4 #### [facility] CLIA [id number] [address] [place] [address] [place] Platelet mean volume (Bld) [Entitic vol] 9.8 fL Normal 9.0-12.7 [facility] Comment on above: Order Comment: Speci men Type: BLOOD SPECIMEN Ordering Facility: [facility] Address: [address] [place] [address] Performed By: #### 2 276-4 #### [facility] CLIA [id number] [address] [place] [address] [place] Platelets (Bld) [#/Vol] 151 10*3/uL Normal 150-400 [facility] Comment on above: Order Comment: Speci men Type: BLOOD SPECIMEN Ordering Facility: [facility] Address: [address] [place] [address] Performed By: #### 2 276-4 #### [facility] CLIA [id number] [address] [place] [address] [place] RBC (Bld) [#/Vol] 4.58 10*6/uL Normal 4.20-6.00 [facility] Comment on above: Order Comment: Speci men Type: BLOOD SPECIMEN Ordering Facility: [facility] Address: [address] [place] [address] Performed By: #### 2 276-4 #### [facility] CLIA [id number] [address] [place] [address] [place] WBC (Bld) [#/Vol] 6.89 10*3/uL Normal 3.70-11.00 [facility] Comment on above: Order Comment: Speci men Type: BLOOD SPECIMEN Ordering Facility: [facility] Address: [address] [place] [address] Performed By: #### 2 276-4 #### [facility] CLIA [id number] [address] [place] [address] [place] CREATININE BLDon 11-04-2024 Creatinine [Mass/Vol] 1.04 mg/dL Normal 0.73-1.22 [facility] Comment on above: Order Comment: Speci men Type: BLOOD SPECIMEN Ordering Facility: [facility] Address: [address] [place] [address] Performed By: #### C RET1 #### [facility] CLIA [id number] [address] [place] [address] [place] Creatinine and Glomerular filtration rate.predicted panel (S/P/Bld) 77 mL/min/1.73m??? Normal >=60 [facility] Comment on above: Order Comment: Speci men Type: BLOOD SPECIMEN Ordering Facility: [facility] Address: [address] [place] [address] Result Comment: Crystal mated Glomerular Filtration Rate (eGFR) is calculated using the 2020 CKD-EPI creatinine equation. This equation utilizes serum creatinine, sex, and age as parameters. The creatinine assay has traceable calibration to isotope dilution-mass spectrometry. Refer to KDIGO guidelines for clinical interpretation. In patients with unstable renal function, e.g. those with acute kidney injury, the eGFR may not accurately reflect actual GFR. Performed By: #### C RET1 #### [facility] CLIA [id number] [address] [place] [address] [place] CRP SerPl-mCncon 11-04-2024 CRP [Mass/Vol] mg/L Normal <0.9 [facility] Comment on above: Order Comment: Specestefani lawrence Type: BLOOD SPECIMEN Ordering Facility: [facility] Address: [address] [place] [address] Performed By: #### 2 276-4 #### [facility] CLIA [id number] [address] [place] [address] [place] ESR Westergren method (Bld) [Velocity]on 11-04-2024 ESR (Bld) [Velocity] 2 mm/h Normal 0-15 [facility] Comment on above: Order Comment: Ubaldo lawrence Type: BLOOD SPECIMEN Ordering Facility: [facility] Address: [address] [place] [address] Performed By: #### 2 276-4 #### [facility] IA [id number] [address] [place] [address] [place] Ferritin SerPl-mCncon 2024 Ferritin [Mass/Vol] 194.0 ng/mL Normal 30.3-565.7 [facility] Comment on above: Order Comment: Ubaldo lawrence Type: BLOOD SPECIMEN Ordering Facility: [facility] Address: [address] [place] [address] Performed By: #### 2 276-4 #### [facility] IA [id number] [address] [place] [address] [place] CNOVon 11-02-2024 CNOV Office Visit (INFDAK ) DALE SARABIA ([id number]) 1955 M Date Time Provider Department 11/02/24 2:30 PM LINSEY GARBER INFDAMarisol During your visit today, we recorded the following information about you: Temperature Pulse Respiration Blood pressure 97.2 degrees 65/minute 20/minute 116/67 Weight Height 121.2 kg 1.702 m Linsey Garber MD 11/02/2024 3:02 PM Signed INFECTIOUS DISEASES OUTPATIENT FOLLOW-UP NOTE SERVICE DATE: 11/02/2024 Subjective INTERVAL HPI : Seen in the follow-up of left hip MRSA infection. On doxycycline 100 mg p.o. twice daily for chronic suppression. Endorsed intermittent left gluteal pain. No radiation of pain. No fever or chills. No night sweats. Reports infrequent heartburn and epigastric pain. Has constipation. No generalized abdominal pain. ROS completed x14 and only pertinent data documented, the rest is negative except as documented above MEDICATIONS: Current Outpatient Medications Medication Sig hydroxyurea (HYDREA) 500 mg capsule Take 1 capsule by mouth once daily. traZODone (DESYREL) 50 mg tablet Take 50 mg by mouth once daily. doxycycline monohydrate (MONODOX) 100 mg capsule Take 1 capsule by mouth two times a day. (Patient taking differently: Take 100 mg by mouth once daily.) furosemide (LASIX) 40 mg tablet Take 20 mg by mouth once daily. aspirin, enteric coated (ASPIRIN, ENTERIC COATED) 81 mg EC tablet Take 1 tablet by mouth twice daily for 21 days. (Patient taking differently: Take 81 mg by mouth once daily.) busPIRone (BUSPAR) 5 mg tablet Take 5 mg by mouth twice daily. levothyroxine (SYNTHROID) 100 mcg tablet Take 200 mcg by mouth once daily. metFORMIN (GLUCOPHAGE) 500 mg tablet Take 500 mg by mouth twice daily with meals. glipiZIDE (GLUCOTROL XL) 5 mg 24 hr tablet Take 5 mg by mouth once daily. gabapentin (NEURONTIN) 100 mg capsule Take one capsule in AM, one capsule at 1PM AND three capsules at bedtime. TOPROL XL 25 mg 24 hr tablet Take 25 mg by mouth once daily. Amoxicillin 500 mg tablet Take 4 tablets 1 hour prior to dental procedure. (Patient not taking: Reported on 11/18/2023) simethicone, chewable (MYLICON) 80 mg chewable tablet Take 80 mg by mouth three times daily with meals. PRN (Patient not taking: Reported on 03/02/2024) tamsulosin (FLOMAX) 0.4 mg Take by mouth daily at bedtime. (Patient not taking: Reported on 03/02/2024) sodium chloride (AYR, OCEAN) 0.65 % nasal spray Use in the nose as needed. (Patient not taking: Reported on 03/02/2024) No current facility-administered medications for this visit. Objective Social History Tobacco Use Smoking status: Former Current packs/day: 0.00 Average packs/day: 0.5 packs/day for 15.0 years (7.5 ttl pk-yrs) Types: Cigarettes Start date: 02/20/1970 Quit date: 02/20/1985 Years since quittin.7 Smokeless tobacco: Never Vaping Use Vaping status: Never Used Substance Use Topics Alcohol use: No Drug use: No FAMILY HISTORY Problem Relation Age of Onset Coronary Artery Disease Mother first disease age 70's Diabetes Mother Asthma Brother Prostate Cancer Other none Colon Cancer Other none Diabetes Sister Diabetes Brother PHYSICAL EXAM BP 116/67 Pulse 65 Temp (Src) 97.2 (Temporal) Resp 20 Ht 5' 7 (1.70m) Wt 267 lb 3.2 oz (121.2kg) SpO2 96% BMI 41.84 kg/(m2). PSYCHIATRIC: no apparent distress SKIN: no rashes, no ulcers, no pressure ulcers EYES: no scleral icterus, no conjunctivitis HEENT: normal inspection of teeth, lips, gums, and oropharynx RESPIRATORY: symmetrical chest expansion and respiratory effort, clear to auscultation CARDIOVASCULAR: S1, S2, no murmurs ABDOMINAL: soft, non-distended, non-tender MUSCULOSKELETAL: normal muscle strength EXTREMITIES: Within normal limits NEUROLOGICAL: nonfocal DIAGNOSTICS REVIEWED/OPAT LABS REVIEWED PERTINENT LABS CBC: WBC 6.12 07/20/2024 Hemoglobin 15.9 07/20/2024 HCT 44.8 07/20/2024 PLT 150 07/20/2024 CMP: Sodium 140 04/29/2023 Potassium 4.0 04/29/2023 BUN 18 04/29/2023 Creatinine 1.08 01/13/2024 Glucose 84 04/29/2023 Creatinine clearance: Creatinine clearance cannot be calculated (Patient's most recent lab result is older than the maximum 180 days allowed.) INFLAMMATORY MARKERS Sed Rate/CRP: Sed Rate, Maciejergren 117 09/28/2022 CRP <0.3 01/13/2024 CRP <0.3 01/09/2023 CRP 3.3 11/10/2022 CRP 2.3 11/03/2022 CRP 11.9 10/27/2022 CRP 7.1 10/20/2022 CRP 3.8 10/13/2022 CRP 21.7 09/28/2022 PERTINENT MICROBIOLOGY Reviewed, see micro PERTINENT RADIOLOGY REPORTS Reviewed Impression/Recommendat ions Dale Sarabia is a 69 year old male with prior RCC s/p partial right nephrectomy, DM, COPD, and 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 1. Chronic antibiotic suppression with doxycycline for MRSA 2. Chronic constipation 3. Left hip septic arthritis and surrounding (more content not included)... Normal [facility] 72-PC-Bbzvkiz DOrdered By: Misha Quick on 08-31-2024 Vitamin D 25-Hydroxy 24.9 ng/mL [facility] Comment on above: Vitamin D 25(OH) Sta tus Range Deficiency <20 ng/mL (50nmol/L) Insufficiency 20 - 30 ng/mL (50 - 75 nmol/L) Sufficiency 30 - 100 ng/mL (75 - 250 nmol/L) Toxicity >100 ng/mL (>250 nmol/L) Absolute neutrophil countOrd ered By: Mohinder Quick on 08-31-2024 Neutrophils (Bld) [#/Vol] 3.1 10*3/uL 2.0-7.7 [facility] Albumin to globulin ratioOrd ered By: Mhoinder Qucik on 08-31-2024 Albumin/Globulin [Mass ratio] 1.1 {ratio} 0.9-2.4 [facility] Basophil percentageOrdered B y: Mohinder Quick on 08-31-2024 Basophils/100 WBC (Bld) 1.5 % High 0-1 [facility] Bilirubin Test strip Ql (U)O rdered By: Mohinder Quick on 08-31-2024 Bilirubin Ql (U) Negative Negative [facility] Bilirubin, totalOrdered By: Mohinder Quick on 08-31-2024 Bilirubin [Mass/Vol] 0.90 mg/dL 0.20-1.00 [facility] Comment on above: For patients on eltr ombopag therapy, use of Dimension [place] TBIL is not recommended. Blood urea nitrogen (BUN)/cr eatinine ratioOrdered By: Mohinder Quick on 08-31-2024 Urea nitrogen/Creatinine [Mass ratio] 13.9 mg/mg 10-20 [facility] Carbon dioxide measurementOr dered By: Mohinder Quick on 08-31-2024 CO2 [Moles/Vol] 23.0 mmol/L 21.0-32.0 [facility] Chloride measurementOrdered By: Mohinder Quick on 08-31-2024 Chloride [Moles/Vol] 105 mmol/L 98-107 [facility] Direct serum free thyroxine (FT4) measurementOrdered By: Mohinder Quick on 08-31-2024 Free T4 [Mass/Vol] 1.19 ng/dL 0.76-1.46 [facility] Eosinophil percentageOrdered By: Mohinder Quick on 08-31-2024 Eosinophils/100 WBC (Bld) 3.9 % 0-5 [facility] Epithelial cells.squamous LM Ql (Urine sed)Ordered By: Mohinder Quick on 08-31-2024 Epithelial cells.squamous LM.HPF (Urine sed) [#/Area] 0 /[HPF] 0-5 [facility] Erythrocyte distribution wid th ratioOrdered By: Mohinder Quick on 08-31-2024 Erythrocyte distribution width (RBC) [Ratio] 13.7 % 11.6-14.6 [facility] Erythrocyte distribution wid th standard deviationOrdered By: Mohinder Quick on 08-31-2024 Erythrocyte distribution width (RBC) [Entitic vol] 48.5 fL High 35.1-43.9 [facility] Estimated glomerular filtrat ion rate (GFR) AmericanOrdered By: Mohinder Quick on 08-31-2024 Estimated GFR (MDRD) Amer 81 mL/min >60 [facility] Comment on above: GFR Calc Free D4Bswqeeh By: Mohinder burns on 08-31-2024 Free Triiodothyronine (T3) pg/dL 2.0 pg/mL Low 2.18-3.98 [facility] Glomerular filtration rate ( GFR) estimationOrdered By: Mohinder Quick on 08-31-2024 Estimated GFR (MDRD) Non-Af Amer 67 mL/min >60 [facility] Comment on above: Non- GFR Calc Glucose Ql (U)Ordered By: Joyce Quick on 08-31-2024 Urine Glucose (UA) Normal mg/dl Normal [facility] Glucose measurementOrdered B y: Mohinder Quick on 08-31-2024 Glucose [Mass/Vol] 180 mg/dL High 74-106 [facility] Comment on above: Fasting Glucose resu lt greater than or equal to 126 mg/dL suggests DIABETES MELLITUS per A.D.A. criteria. Hematocrit Auto (Bld) [Volum e fraction]Ordered By: Mohinder Quick on 08-31-2024 Hematocrit (Bld) [Volume fraction] 44.9 % 40-54 [facility] Hemoglobin A1c percentageOrd ered By: Mohinder Quick on 08-31-2024 HbA1c (Bld) [Mass fraction] 7.3 % High 3.8-5.6 [facility] Comment on above: Normal < 5.7 % Predi abetic 5.7 - 6.4 % Diabetic >or= 6.5 % Please note range changes. Hemoglobin measurementOrdere d By: Mohinder Quick on 08-31-2024 Hemoglobin (Bld) [Mass/Vol] 15.7 g/dL 13.0-16.5 [facility] High density lipoprotein (HD L) measurementOrdered By: Mohinder Quick on 08-31-2024 Cholesterol in HDL [Mass/Vol] 36 mg/dL Low >40 [facility] Comment on above: The drugs N-Acetylcy steine and Metamizole may falsely depress this assay. Reference Range HDL <40 mg/dL Low HDL Cholesterol HDL >or= 60 mg/dL High HDL Cholesterol Immature granulocytes/100 WB C Auto (Bld)Ordered By: Mohinder Quick on 08-31-2024 Immature granulocytes/100 WBC (Bld) 0.300 % 0.0-0.9 [facility] Comment on above: IG% - Immature Granu locytes (promyelocytes, myelocytes and metamyelocytes) > 1% indicates that a LEFT SHIFT is Present. Ketones Test strip Ql (U)Ord ered By: Mohinder Quick on 08-31-2024 Ketones Ql (U) Negative Negative [facility] Laboratory - Chemistry and C hemistry - challengeOrdered By: Mohinder Quick on 08-31-2024 AST [Catalytic activity/Vol] 48 U/L High 15-37 [facility] Low density lipoprotein (LDL ) cholesterol measurementOrdered By: Mohinder Quick on 08-31-2024 Cholesterol in LDL [Mass/Vol] 71 mg/dL 0-130 [facility] Lymphocytes Auto (Unsp spec) [#/Vol]Ordered By: Mohinder Quick on 08-31-2024 Lymphocytes (Bld) [#/Vol] 1.86 10*3/uL 0.83-4.5 1 [facility] Lymphocytes/100 WBC Auto (Un sp spec)Ordered By: Mohinder Quick on 08-31-2024 Lymphocytes/100 WBC (Bld) 31.6 % 19-41 [facility] MCV (mean corpuscular volume ) determinationOrdered By: Mohinder Quick on 08-31-2024 MCV (RBC) [Entitic vol] 97.4 fL High 80-94 [facility] Mean corpuscular hemoglobin (MCH) determinationOrdered By: Mohinder Quick on 08-31-2024 MCH (RBC) [Entitic mass] 34.1 pg High 27.0-32.0 [facility] Mean corpuscular hemoglobin concentration (MCHC) determinationOrdered By: Mohinder Quick on 08-31-2024 MCHC (RBC) [Mass/Vol] 35.0 g/dL 32-36 [facility] Mean platelet volume determi nationOrdered By: Mohinder Quick on 08-31-2024 Platelet mean volume (Bld) [Entitic vol] 9.9 fL 6.2-12.0 [facility] Microscopic analysis of urin e for red blood cells (RBC)Ordered By: Mohinder Quick on 08-31-2024 Urine RBC 0 SEEN /hpf 0-5 [facility] Monocyte percentageOrdered B y: Mohinder Quick on 08-31-2024 Monocytes/100 WBC (Bld) 9.5 % 0-10 [facility] Mucus LM Ql (Urine sed)Order ed By: Mohinder Quick on 08-31-2024 Mucus Ql (Urine sed) 0 SEEN /hpf [facility] Neutrophil percentageOrdered By: Mohinder Quick on 08-31-2024 Neutrophils/100 WBC (Bld) 53.2 % 47-70 [facility] Nitrite Test strip Ql (U)Ord ered By: Mohinder Quick on 08-31-2024 Nitrite Ql (U) Negative Negative [facility] Nucleated red blood cell per centageOrdered By: Mohinder Quick on 08-31-2024 Nucleated RBC/100 WBC (Bld) [Ratio] 0 % 0-5 [facility] Platelet countOrdered By: Joyce Quick on 08-31-2024 Platelets (Bld) [#/Vol] 144 10*3/uL Low 150-450 [facility] Potassium measurementOrdered By: Mohinder Quick on 08-31-2024 Potassium [Moles/Vol] 4.0 mmol/L 3.5-5.1 [facility] Protein Test strip Ql (U)Ord ered By: Mohinder Quick on 08-31-2024 Protein Ql (U) Negative Negative [facility] RBC Auto (Bld) [#/Vol]Ordere d By: Mohinder Quick on 08-31-2024 RBC (Bld) [#/Vol] 4.61 10*6/uL 4.6-6.2 [facility] Random urine microalbumin me asurementOrdered By: Mohinder Quick on 08-31-2024 Urine Random Microalbumin 5.1 mg/L NO RANGE EST. [facility] Screening prostate specific antigen (PSA) measurementOrdered By: Mohinder Quick on 08-31-2024 Prostate Specific Antigen Screen 0.36 ng/mL 0.00-4.00 [facility] Comment on above: This test was perfor med using the TPSA assay method for the[employer] chemistry system. Values obtained with differentassay methods cannot be used interchangably.When changing PSA assays in the course of monitoring apatient, additional sequential testing should be carriedout to confirm baseline values. Serum anion gap measurementO rdered By: Mohinder Quick on 08-31-2024 Anion gap [Moles/Vol] 9 mmol/L 5-15 [facility] Serum globulin measurementOr dered By: Mohinder Quick on 08-31-2024 Globulin (S) [Mass/Vol] 3.4 g/dL 2.2-4.2 [facility] Serum or plasma alanine ramos otransferase (ALT) measurementOrdered By: Mohinder Quick on 08-31-2024 ALT [Catalytic activity/Vol] 68 U/L High 16-61 [facility] Serum or plasma albumin abbey urement (mass/volume)Ordered By: Mohinder Quick on 08-31-2024 Albumin [Mass/Vol] 3.6 g/dL 3.2-5.0 [facility] Serum or plasma alkaline brando sphatase measurementOrdered By: Mohinder Quick on 08-31-2024 ALP [Catalytic activity/Vol] 86 U/L 45-117 [facility] Serum or plasma calcium abbey urement (mass/volume)Ordered By: Mohinder Quick on 08-31-2024 Calcium [Mass/Vol] 9.0 mg/dL 8.5-10.1 [facility] Serum or plasma cholesterol measurement (mass/volume)Ordered By: Mohinder Quick on 08-31-2024 Cholesterol [Mass/Vol] 179 mg/dL <200 [facility] Comment on above: <200 mg/dL Desirable 200-240 mg/dL Borderline >240 mg/dL High Risk Serum or plasma creatinine m easurement (mass/volume)Ordered By: Mohinder Quick on 08-31-2024 Creatinine [Mass/Vol] 1.15 mg/dL 0.70-1.30 [facility] Comment on above: The validity of the calculated GFR & GFRAA in patients over 70 years has not been determined. Clinical correlation is essential. Serum or plasma urea nitroge n measurement (mass/volume)Ordered By: Mohinder Quick on 08-31-2024 Urea nitrogen [Mass/Vol] 16 mg/dL 7-18 [facility] Sodium levelOrdered By: Sujey Quick on 08-31-2024 Sodium [Moles/Vol] 137 mmol/L 136-145 [facility] TSH QnOrdered By: Mohinder Falk hner on 08-31-2024 Thyroid Stimulating Hormone (TSH) 0.828 uIU/mL 0.358-3.740 [facility] Total proteinOrdered By: Dulce Quick on 08-31-2024 Protein [Mass/Vol] 7.0 g/dL 6.4-8.2 [facility] Triglycerides measurementOrd ered By: Mohinder Quick on 08-31-2024 Triglyceride [Mass/Vol] 360 mg/dL High <199 [facility] Comment on above: The drugs N-Acetylcy steine and Metamizole may falsely depress this assay.Serum Triglycerides Reference Interval Normal <150 mg/dL Borderline high 150 - 199 mg/dL High 200 - 499 mg/dL Very High > or = 500 mg/dL Urine albumin/creatinine rat io for detection of microalbuminuriaOrdered By: Mohinder Quick on 08-31-2024 Urine Microalbumin/Creatinine Ratio 4.2 mg/g CRE <30 [facility] Urine blood detectionOrdered By: Mohinder Quick on 08-31-2024 Urine Occult Blood Negative Negative [facility] Urine clarityOrdered By: Dulce Quick on 08-31-2024 Clarity (U) Clear Clear [facility] Urine color determinationOrd ered By: Mohinder Quick on 08-31-2024 Color (U) Yellow Yellow [facility] Urine creatinine measurement (mass/volume)Ordered By: Mohinder Quick on 08-31-2024 Creatinine (U) [Mass/Vol] 120.00 mg/dL NO RANGE EST. [facility] Urine leukocyte esterase det ection by dipstickOrdered By: Mohinder Quick on 08-31-2024 Leukocyte esterase Test strip Ql (U) Negative Negative [facility] Urine pHOrdered By: Mohinder nicole on 08-31-2024 pH (U) 5.0 [pH] 5.0 - 8.0 [facility] Urine sediment bacteria coun t by microscopy (number/high power field)Ordered By: Mohinder Quick on 08-31-2024 Bacteria LM.HPF (Urine sed) [#/Area] 0 /[HPF] None Seen [facility] Urine specific gravity measu rementOrdered By: Mohinder Quick on 08-31-2024 Specific gravity (U) [Rel density] 1.020 1.002-1.030 [facility] Urobilinogen Ql (U)Ordered B y: Mohinder Quick on 08-31-2024 Urine Urobilinogen Normal mg/dl Normal [facility] Very low density lipoprotein (VLDL) cholesterol measurementOrdered By: Mohinder Quick on 08-31-2024 VLDL Cholesterol 72 mg/dL High 5-40 [facility] White blood cell (WBC) count Ordered By: Mohinder Quick on 08-31-2024 WBC (Bld) [#/Vol] 5.9 10*3/uL 4.4-11.0 [facility] White blood cell countOrdere d By: Mohinder Quick on 08-31-2024 Urine WBC 0 SEEN /hpf 0-5 [facility] CNOVon 05-18-2024 CNOV Office Visit ([id number] ) DALE SARABIA ([id number]) 1955 M Date Time Provider Department 05/18/24 10:30 AM [facility] During your visit today, we recorded the following information about you: Respiration Weight Height 20/minute 121.6 kg 1.702 m Goyo Cheng MD 05/18/2024 10:51 AM Signed Chief complaint: Left hip pain. History of present illness: Patient returns today follow-up. He has osteomyelitis as well as revision total hip arthroplasty. Recently was having some significant hip pain. He was away [place] and walking up and down significant elevation changes. This has settled down. His pain was in his thigh as well as the lateral aspect of his hip. Has been using his cane on occasion. Denies any symptoms of infection. Also has history of knee arthritis. For the patient's past medical history, past surgical history, medications, allergies, family history, social history, and review of systems please refer to medical history in chart. Physical exam: The patient is alert and oriented no acute distress. Answers questions properly. Has a normal affect. Rises from a seated position without difficulty. Ambulates with cane. Examination of left lower extremity shows it to be neuro vas intact. No signs of infection. Mild tenderness palpation over greater trochanter. No pain with range of motion hip. Imaging: Please refer to the radiographic interpretation Assessment: #1 revision left total hip arthroplasty. #2 history of left femur osteomyelitis. Plan: This time we did discussion about his symptoms. This may be an indefinite change due to the significance of his injury as well as surgeries. He expressed understanding. He will continue activities as he feels comfortable. With regards to his knee, he will contact our office if he would like any further treatment. I will see him back on an as-needed basis. If there is any questions or concerns in the future, or any change in his symptoms, he will contact our office. Their questions were answered. Allergies As of Date: 05/18/2024 Noted Allergy Reaction SITAGLIPTIN 07/03/2021 2 - Rash CHOCOLATE 08/02/2011 12 - Shortness of Breath FENNEL SEED 09/02/2017 12 - Shortness of Breath MILK 09/01/2018 12 - Shortness of Breath PEANUT 08/02/2011 12 - Shortness of Breath THEOPHYLLINE 02/25/2006 5 - Intolerance Comments: very lethargic and muscle cramps Date Reviewed: 05/18/2024 Reviewed by: Meghann Eckert Tech - Fully Assessed Reason for Visit: Established Patient [175] Primary Visit Diagnosis:Status post total replacement of left hip [Z96.642] Other Visit Diagnosis:Osteomyeliti s of left femur, unspecified type (HCC) [M86.9] Order(s):XR PELVIS 1V AP [[id number]] Order #: [id number] Prescriptions as of 05/18/2024 - hydroxyurea (HYDREA) 500 mg capsule Take 1 capsule by mouth once daily. - traZODone (DESYREL) 50 mg tablet Take 50 mg by mouth once daily. - doxycycline monohydrate (MONODOX) 100 mg capsule Take 1 capsule by mouth two times a day. - furosemide (LASIX) 40 mg tablet Take 40 mg by mouth once daily. - Amoxicillin 500 mg tablet Take 4 tablets 1 hour prior to dental procedure. - aspirin, enteric coated (ASPIRIN, ENTERIC COATED) 81 mg EC tablet Take 1 tablet by mouth twice daily for 21 days. - busPIRone (BUSPAR) 5 mg tablet Take 5 mg by mouth twice daily. - simethicone, chewable (MYLICON) 80 mg chewable tablet Take 80 mg by mouth three times daily with meals. PRN - tamsulosin (FLOMAX) 0.4 mg Take by mouth daily at bedtime. - sodium chloride (AYR, OCEAN) 0.65 % nasal spray Use in the nose as needed. - levothyroxine (SYNTHROID) 100 mcg tablet Take 200 mcg by mouth once daily. - metFORMIN (GLUCOPHAGE) 500 mg tablet Take 500 mg by mouth twice daily with meals. - glipiZIDE (GLUCOTROL XL) 5 mg 24 hr tablet Take 5 mg by mouth once daily. - gabapentin (NEURONTIN) 100 mg capsule Take one capsule in AM, one capsule at 1PM AND three capsules at bedtime. - TOPROL XL 25 mg 24 hr tablet Take 25 mg by mouth once daily. Problem List As Of Date 05/18/2024 Noted Resolved Obesity, unspecified [E66.9] Unspecified essential hypertension [I10] Unspecified hypothyroidism [E03.9] Dysthymic disorder [F34.1] Asthma [J45.909] 01/17/2009 Other testicular hypofunction [E29.1] 01/17/2009 Obstructive sleep apnea [G47.33] 01/17/2009 Urinary calculus, unspecified [N20.9] 01/17/2009 Allergic rhinitis, cause unspecified [J30.9] 01/18/2009 10/05/2022 Anticipated difficulty with intubation [Z78.9] 01/18/2009 Impaired fasting glucose [R73.01] 01/09/2010 CAD (coronary artery disease) [I25.10] 05/27/2011 Renal cell carcinoma (HCC) [C64.9] 10/11/2011 Secondary polycythemia [D75.1] 10/16/2015 Anxiety about health [R45.89] 04/17/2018 Fear of other medical care [F40.232] 04/17/2018 Pulmonary embolus (HCC) [I26.99] 09/01/ (more content not included)... Normal [facility] XR Pelvis APon 05-18-2024 AP pelvis ordered an d obtained in the office interpreted by myself. Stable revision left total hip arthroplasty. [facility] RADIOLOGY [facility] Radiology Study observation (narrative) [facility] Absolute lymphocyte countOrd ered By: Mohinder Ynes on 08-08-2023 Lymphocytes Auto (Unsp spec) [#/Vol] 1.68 10*3/uL 0.83-4.51 [facility] Basophil percentageOrdered B y: Mohinder Quick on 08-08-2023 Basophils/100 WBC (Bld) 1.8 % 0-1 [facility] Bilirubin [Mass/Vol] 0.50 mg/dL 0.20-1.00 [facility] Comment on above: For patients on eltr ombopag therapy, use of Dimension [place] TBIL is not recommended. Chloride [Moles/Vol] 108 mmol/L 98-107 [facility] Cholesterol [Mass/Vol] 171 mg/dL <200 [facility] Comment on above: <200 mg/dL Desirable 200-240 mg/dL Borderline >240 mg/dL High Risk Eosinophils/100 WBC (Bld) 4.4 % 0-5 [facility] Glucose [Mass/Vol] 145 mg/dL 74-106 [facility] Comment on above: Fasting Glucose resu lt greater than or equal to 126 mg/dL suggests DIABETES MELLITUS per A.D.A. criteria. Neutrophils (Bld) [#/Vol] 3.9 10*3/uL 2.0-7.7 [facility] Neutrophils/100 WBC (Bld) 60.3 % 47-70 [facility] Potassium [Moles/Vol] 4.2 mmol/L 3.5-5.1 [facility] Comment on above: Slight Hemolysis, Re sult may be falsely increased. Protein [Mass/Vol] 7.3 g/dL 6.4-8.2 [facility] Sodium [Moles/Vol] 138 mmol/L 136-145 [facility] Triglyceride [Mass/Vol] 269 mg/dL <199 [facility] Comment on above: The drugs N-Acetylcy steine and Metamizole may falsely depress this assay.Serum Triglycerides Reference Interval Normal <150 mg/dL Borderline high 150 - 199 mg/dL High 200 - 499 mg/dL Very High > or = 500 mg/dL WBC (Bld) [#/Vol] 6.6 10*3/uL 4.4-11.0 [facility] Blood erythrocytes count (nu mber/volume)Ordered By: Mohinder Quick on 08-08-2023 RBC (Bld) [#/Vol] 4.49 10*6/uL 4.6-6.2 [facility] Blood hemoglobin measurement (mass/volume)Ordered By: Mohinder Quick on 08-08-2023 Hemoglobin (Bld) [Mass/Vol] 15.1 g/dL 13.0-16.5 [facility] Blood lymphocytes/100 leukoc ytesOrdered By: Mohinder Quick on 08-08-2023 Lymphocytes/100 WBC (Bld) 25.6 % 19-41 [facility] Blood monocytes/100 leukocyt esOrdered By: Mohinder Quick on 08-08-2023 Monocytes/100 WBC (Bld) 7.6 % 0-10 [facility] Blood platelet mean volumeOr dered By: Mohinder Quick on 08-08-2023 Platelet mean volume (Bld) [Entitic vol] 10.2 fL 6.2-12.0 [facility] Determination of erythrocyte mean corpuscular volume (MCV)Ordered By: Mohinder Quick on 08-08-2023 MCV (RBC) [Entitic vol] 97.1 fL 80-94 [facility] Hematocrit Auto (Bld) [Volum e fraction]Ordered By: Mohinder Quick on 08-08-2023 Hematocrit (Bld) [Volume fraction] 43.6 % 40-54 [facility] Laboratory - Chemistry and C hemistry - challengeOrdered By: Mohinder Quick on 08-08-2023 ALP [Catalytic activity/Vol] 99 U/L 45-117 [facility] ALT [Catalytic activity/Vol] 40 U/L 16-61 [facility] CO2 [Moles/Vol] 28.0 mmol/L 21.0-32.0 [facility] Free T4 [Mass/Vol] 1.11 ng/dL 0.76-1.46 [facility] Globulin (S) [Mass/Vol] 3.7 g/dL 2.2-4.2 [facility] Urea nitrogen/Creatinine [Mass ratio] 16.4 mg/mg 10-20 [facility] Laboratory - Hematology and Cell countsOrdered By: Mohinder Quick on 08-08-2023 Erythrocyte distribution width (RBC) [Entitic vol] 46.4 fL 35.1-43.9 [facility] Erythrocyte distribution width (RBC) [Ratio] 13.2 % 11.6-14.6 [facility] Immature granulocytes/100 WBC (Bld) 0.300 % 0.0-0.9 [facility] Comment on above: IG% - Immature Granu locytes (promyelocytes, myelocytes and metamyelocytes) > 1% indicates that a LEFT SHIFT is Present. MCH (RBC) [Entitic mass] 33.6 pg 27.0-32.0 [facility] Nucleated RBC/100 WBC (Bld) [Ratio] 0 % 0-5 [facility] MCHC Auto (RBC) [Mass/Vol]Or dered By: Mohinder Quick on 08-08-2023 MCHC (RBC) [Mass/Vol] 34.6 g/dL 32-36 [facility] No Panel InformationOrdered By: Mohinder Quick on 08-08-2023 Estimated GFR (MDRD) Amer 75 mL/min >60 [facility] Comment on above: GFR Calc Estimated GFR (MDRD) Non-Af Amer 62 mL/min >60 [facility] Comment on above: Non- GFR Calc Free Triiodothyronine (T3) pg/dL 2.2 pg/mL 2.18-3.98 [facility] Prostate Specific Antigen Screen 0.56 ng/mL 0.00-4.00 [facility] Comment on above: This test was perfor med using the TPSA assay method for the[facility]. Values obtained with differentassay methods cannot be used interchangably.When changing PSA assays in the course of monitoring apatient, additional sequential testing should be carriedout to confirm baseline values. Thyroid Stimulating Hormone (TSH) 0.80 uIU/mL 0.358-3.74 [facility] Vitamin D 25-Hydroxy 39.4 ng/mL [facility] Comment on above: Vitamin D 25(OH) Sta tus Range Deficiency <20 ng/mL (50nmol/L) Insufficiency 20 - 30 ng/mL (50 - 75 nmol/L) Sufficiency 30 - 100 ng/mL (75 - 250 nmol/L) Toxicity >100 ng/mL (>250 nmol/L) Platelets bldOrdered By: Dulce Quick on 08-08-2023 Platelets (Bld) [#/Vol] 182 10*3/uL 150-450 [facility] Serum or plasma albumin abbey urement (mass/volume)Ordered By: Mohinder Quick on 08-08-2023 Albumin [Mass/Vol] 3.6 g/dL 3.2-5.0 [facility] Serum or plasma albumin/glob ulin mass ratioOrdered By: Mohinder Quick on 08-08-2023 Albumin/Globulin [Mass ratio] 1.0 {ratio} 0.9-2.4 [facility] Serum or plasma calcium abbey urement (mass/volume)Ordered By: Mohinder Quick on 08-08-2023 Calcium [Mass/Vol] 9.2 mg/dL 8.5-10.1 [facility] Serum or plasma cholesterol in HDL measurement (mass/volume)Ordered By: Mohinder Quick on 08-08-2023 Cholesterol in HDL [Mass/Vol] 38 mg/dL >40 [facility] Comment on above: The drugs N-Acetylcy steine and Metamizole may falsely depress this assay. Reference Range HDL <40 mg/dL Low HDL Cholesterol HDL >or= 60 mg/dL High HDL Cholesterol Serum or plasma cholesterol in VLDL measurement (mass/volume)Ordered By: Mohinder Quick on 08-08-2023 Cholesterol in VLDL [Mass/Vol] 54 mg/dL 5-40 [facility] Serum or plasma creatinine m easurement (mass/volume)Ordered By: Mohinder Quick on 08-08-2023 Creatinine [Mass/Vol] 1.22 mg/dL 0.70-1.30 [facility] Comment on above: The validity of the calculated GFR & GFRAA in patients over 70 years has not been determined. Clinical correlation is essential. Serum or plasma low density lipoprotein (LDL) cholesterol measurement (mass/volume)Ordered By: Mohinder Quick on 08-08-2023 Cholesterol in LDL [Mass/Vol] 79 mg/dL 0-130 [facility] Serum or plasma urea nitroge n measurement (mass/volume)Ordered By: Mohinder Quick on 08-08-2023 Urea nitrogen [Mass/Vol] 20 mg/dL 7-18 [facility] Thin prep Papanicolaou smear with manual screeningOrdered By: Mohinder Quick on 08-08-2023 Thin prep Papanicolaou smear with manual screening 31 U/L 15-37 [facility] Comment on above: Slight Hemolysis, Re sult may be falsely increased. Thin prep Papanicolaou smear with manual screening 2 5-15 [facility] Whole blood hemoglobin A1c/t otal hemoglobin ratio (mass fraction)Ordered By: Mohinder Quick on 08-08-2023 HbA1c (Bld) [Mass fraction] 6.2 % 3.8-5.6 [facility] Comment on above: Normal < 5.7 % Predi abetic 5.7 - 6.4 % Diabetic >or= 6.5 % Please note range changes. Laboratory - Hematology and Cell countson 05-14-2023 HbA1c (Bld) [Mass fraction] 6.2 % 4.2-6.3 [facility] Basic metabolic 2000 panelon 04-29-2023 Anion gap [Moles/Vol] 12 mmol/L 9 - 18 mmol/L [facility] Calcium [Mass/Vol] 9.4 mg/dL 8.5 - 10. 2 mg/dL [facility] Chloride [Moles/Vol] 104 mmol/L 97 - 10 5 mmol/L [facility] CO2 [Moles/Vol] 24 mmol/L 22 - 30 mmol/L [facility] Creatinine [Mass/Vol] 1.09 mg/dL 0.73 - 1.22 mg/dL [facility] Estimated Glomerular Filtration Rate 73 mL/min/1.73m >=60 mL/min/1.73 m [facility] Glucose [Mass/Vol] 84 mg/dL 74 - 99 mg/dL [facility] Potassium [Moles/Vol] 4.0 mmol/L 3.7 - 5.1 mmol/L [facility] Sodium [Moles/Vol] 140 mmol/L 136 - 144 mmol/L [facility] Urea nitrogen [Mass/Vol] 18 mg/dL 9 - 24 mg/dL [facility] Anaerobic cultureOrdered By: Dr. Frost on 02-13-2023 Bacteria identified Anaer cx Nom (Unsp spec) No anaerobic bacteria isolated. [facility] Bacteria identified Cx Nom ( Wound)Ordered By: Dr. Frost on 02-09-2023 Wound Culture Staphylococcus epidermidis [facility] Gram stain for investigation of transfusion reactionOrdered By: Dr. Frost on 02-07-2023 Microscopic observation Gram stain Nom (Unsp spec) [facility] Laboratory - Chemistry and C hemistry - challengeOrdered By: Dr. Quick on 01-30-2023 Free T4 [Mass/Vol] 1.18 ng/dL 0.76-1.46 [facility] No Panel InformationOrdered By: Dr. Quick on 01-30-2023 Free Triiodothyronine (T3) pg/dL 1.9 pg/mL 2.18-3.98 [facility] Thyroid Stimulating Hormone (TSH) 1.82 uIU/mL 0.358-3.74 [facility] Serum or plasma uric acid me asurement (mass/volume)Ordered By: Dr. Frost on 01-30-2023 Urate [Mass/Vol] 7.7 mg/dL 3.5-7.2 [facility] Comment on above: The drugs N-Acetylcy steine and Metamizole may falsely depress this assay. Basophil percentageOrdered B y: Dr. Torres on 12-26-2022 Chloride [Moles/Vol] 104 mmol/L 98-107 [facility] Glucose [Mass/Vol] 100 mg/dL 74-106 [facility] Comment on above: Fasting Glucose resu lt from 100 to 125 mg/dL suggests IMPAIRED HOMEOSTASIS per A.D.A. criteria. Potassium [Moles/Vol] 4.3 mmol/L 3.5-5.1 [facility] Sodium [Moles/Vol] 137 mmol/L 136-145 [facility] Laboratory - Chemistry and C hemistry - challengeOrdered By: Dr. Torres on 12-26-2022 CO2 [Moles/Vol] 26.0 mmol/L 21.0-32.0 [facility] Urea nitrogen/Creatinine [Mass ratio] 21.1 mg/mg 10-20 [facility] No Panel InformationOrdered By: Dr. Torres on 12-26-2022 Estimated GFR (MDRD) Amer 86 mL/min >60 [facility] Comment on above: GFR Calc Estimated GFR (MDRD) Non-Af Amer 71 mL/min >60 [facility] Comment on above: Non- GFR Calc Serum or plasma calcium abbey urement (mass/volume)Ordered By: Dr. Torres on 12-26-2022 Calcium [Mass/Vol] 9.6 mg/dL 8.5-10.1 [facility] Serum or plasma creatinine m easurement (mass/volume)Ordered By: Dr. Torres on 12-26-2022 Creatinine [Mass/Vol] 1.09 mg/dL 0.70-1.30 [facility] Comment on above: The validity of the calculated GFR & GFRAA in patients over 70 years has not been determined. Clinical correlation is essential. Serum or plasma urea nitroge n measurement (mass/volume)Ordered By: Dr. Torres on 12-26-2022 Urea nitrogen [Mass/Vol] 23 mg/dL 7-18 [facility] Thin prep Papanicolaou smear with manual screeningOrdered By: Dr. Torres on 12-26-2022 Thin prep Papanicolaou smear with manual screening 7 5-15 [facility] [facility] HbA1c (Bld)on 11-19-2022 Average glucose Estimated from glycated hemoglobin (Bld) [Mass/Vol] 97 mg/dL [facility] HbA1c (Bld) [Mass fraction] 5.0 % 4.3 - 5.6 % [facility] PT panel Coag (PPP)on 2022 INR Coag (PPP) [Relative time] 1.1 {INR} 0.9 - 1.3 [facility] PT Coag (PPP) [Time] 10.4 s <13.1 sec [facility] TYPE AND SCREEN,30 DAYon ABO O [facility] HIstorical Ab Scr Status Negative [facility] Rh Nom (Bld) Positive [facility] Glucose Glucometer (BldC) [M ass/Vol]Ordered By: Dr. Reyes on 11-12-2022 Glucose [Mass/Vol] 120 mg/dL 74-106 [facility] Comment on above: MANAGEMENT OF PATIEN T CARE PER NURSING PROTOCOL Absolute lymphocyte countOrd ered By: Dr. Reyes on 11-10-2022 Lymphocytes Auto (Unsp spec) [#/Vol] 1.12 10*3/uL 0.83-4.51 [facility] Automated blood hematocrit ( percentage)Ordered By: Dr. Reyes on 11-10-2022 Hematocrit (Bld) [Volume fraction] 35.5 % 40-54 [facility] Basophil percentageOrdered B y: Dr. Reyes on 11-10-2022 Basophil percentage 126 mg/dL 74-106 [facility] Basophil percentage 136 mmol/L 136-145 [facility] Basophil percentage 3.9 mmol/L 3.5-5.1 [facility] Basophil percentage 101 mmol/L 98-107 [facility] Basophils (Bld) [#/Vol] 7.3 10*3/uL 4.4-11.0 [facility] Basophils (Bld) [#/Vol] 4.8 10*3/uL 2.0-7.7 [facility] Basophils/100 WBC (Bld) 1.5 % 0-1 [facility] Basophils/100 WBC (Bld) 66.0 % 47-70 [facility] Basophils/100 WBC (Bld) 6.3 % 0-5 [facility] Chloride [Moles/Vol] 101 mmol/L 98-107 [facility] Eosinophils/100 WBC (Bld) 6.3 % 0-5 [facility] Glucose [Mass/Vol] 126 mg/dL 74-106 [facility] Comment on above: Fasting Glucose resu lt greater than or equal to 126 mg/dL suggests DIABETES MELLITUS per A.D.A. criteria. Neutrophils (Bld) [#/Vol] 4.8 10*3/uL 2.0-7.7 [facility] Neutrophils/100 WBC (Bld) 66.0 % 47-70 [facility] Potassium [Moles/Vol] 3.9 mmol/L 3.5-5.1 [facility] Sodium [Moles/Vol] 136 mmol/L 136-145 [facility] WBC (Bld) [#/Vol] 7.3 10*3/uL 4.4-11.0 [facility] Basophil percentageOrdered B y: Dr. Morgan on 11-10-2022 Basophil percentage 7.8 g/dL 6.4-8.2 [facility] Basophil percentage 0.40 mg/dL 0.20-1.00 [facility] Bilirubin [Mass/Vol] 0.40 mg/dL 0.20-1.00 [facility] Comment on above: For patients on eltr ombopag therapy, use of Dimension [place] TBIL is not recommended. Protein [Mass/Vol] 7.8 g/dL 6.4-8.2 [facility] Blood erythrocytes count (nu mber/volume)Ordered By: Dr. Reyes on 11-10-2022 RBC (Bld) [#/Vol] 3.90 10*6/uL 4.6-6.2 [facility] Blood hemoglobin measurement (mass/volume)Ordered By: Dr. Reyes on 11-10-2022 Hemoglobin (Bld) [Mass/Vol] 10.8 g/dL 13.0-16.5 [facility] Blood lymphocytes/100 leukoc ytesOrdered By: Dr. Reyes on 11-10-2022 Lymphocytes/100 WBC (Bld) 15.3 % 19-41 [facility] Blood monocytes/100 leukocyt esOrdered By: Dr. Reyes on 11-10-2022 Monocytes/100 WBC (Bld) 10.4 % 0-10 [facility] Blood platelet mean volumeOr dered By: Dr. Reyes on 11-10-2022 Platelet mean volume (Bld) [Entitic vol] 9.5 fL 6.2-12.0 [facility] C-REACTIVE PROTEIN (CRP) (AK ,AV,EU,FV,HL,JALEN,MM,SP)on 11-10-2022 CRP [Mass/Vol] 3.3 mg/dL Abnormal 0.9 mg/dL [facility] CBCDIF (EXTERNAL)on 11-10-19 BASO ABS [facility] EOS ABS [facility] Lymphocytes (Bld) [#/Vol] 1.12 10*3/uL Abnormal 1. 2 - 4 K/uL [facility] MCV (RBC) [Entitic vol] 91 fL 79 - 98 fL [facility] MONO ABS [facility] NEUT ABS 4.8 K/uL 1.9 - 8 K/uL [facility] Neutrophils/100 WBC (Bld) 66 % 40 - 74 % [facility] RBC (Bld) [#/Vol] 3.9 10*6/uL Abnormal 4 - 6 M/uL [facility] CREATININE BLOOD (AK,AV,EU,F V,HL,JALEN,MM,SP)on 11-10-2022 GFR AFR AMER 129 mL/MIN 60 mL/MIN [facility] GFR/1.73 sq M.predicted among non-blacks MDRD (S/P/Bld) [Vol rate/Area] 107 mL/min/{1.73_m2} 60 mL/MIN [facility] Determination of erythrocyte mean corpuscular volume (MCV)Ordered By: Dr. Reyes on 11-10-2022 MCV (RBC) [Entitic vol] 91.0 fL 80-94 [facility] Direct bilirubinOrdered By: Dr. Morgan on 11-10-2022 Bilirubin.direct [Mass/Vol] 0.09 mg/dL 0.00-0.30 [facility] HEPATIC FUNCTION PANEL - EXT ERNALon 11-10-2022 ALBUMIN/GLOBULIN RATIO [facility] AST [Catalytic activity/Vol] 22 U/L 0 - 42 IU/L [facility] Bili Total 0.4 mg/dL 0.2 - 1 mg/dL [facility] Bilirubin Indirect [facility] Direct Bilirubin [facility] GLOBULIN 5.2 [facility] Laboratory - Chemistry and C hemistry - challengeOrdered By: Dr. Morgan on 11-10-2022 ALP [Catalytic activity/Vol] 100 U/L 45-117 [facility] ALT [Catalytic activity/Vol] 27 U/L 16-61 [facility] CK [Catalytic activity/Vol] 33 U/L 39-308 [facility] Globulin (S) [Mass/Vol] 5.2 g/dL 2.2-4.2 [facility] Laboratory - Chemistry and C hemistry - challengeOrdered By: Dr. Reyes on 11-10-2022 CO2 [Moles/Vol] 29.0 mmol/L 21.0-32.0 [facility] Urea nitrogen/Creatinine [Mass ratio] 36.5 mg/mg 10-20 [facility] Laboratory - Hematology and Cell countsOrdered By: Dr. Reyes on 11-10-2022 Erythrocyte distribution width (RBC) [Entitic vol] 54.5 fL 35.1-43.9 [facility] Erythrocyte distribution width (RBC) [Ratio] 16.4 % 11.6-14.6 [facility] Immature granulocytes/100 WBC (Bld) 0.500 % 0.0-0.9 [facility] Comment on above: IG% - Immature Granu locytes (promyelocytes, myelocytes and metamyelocytes) > 1% indicates that a LEFT SHIFT is Present. MCH (RBC) [Entitic mass] 27.7 pg 27.0-32.0 [facility] Nucleated RBC/100 WBC (Bld) [Ratio] 0 % 0-5 [facility] MCHC [Mass/volume] by Automa bassam countOrdered By: Dr. Reyes on 11-10-2022 MCHC (RBC) [Mass/Vol] 30.4 g/dL 32-36 [facility] No Panel InformationOrdered By: Dr. Reyes on 11-10-2022 Estimated Creatinine Clearance Calc 62.91 ml/min [facility] Estimated GFR (MDRD) Amer 129 mL/min >60 [facility] Comment on above: GFR Calc Estimated GFR (MDRD) Non-Af Amer 107 mL/min >60 [facility] Comment on above: Non- GFR Calc 27.7 pg 27.0-32.0 [facility] 16.4 % 11.6-14.6 [facility] 54.5 fl 35.1-43.9 [facility] 0.500 % 0.0-0.9 [facility] 0 % 0-5 [facility] 107 mL/min >60 [facility] 129 mL/min >60 [facility] 62.91 ml/min [facility] 36.5 RATIO 10-20 [facility] 29.0 mmol/L 21.0-32.0 [facility] No Panel InformationOrdered By: Dr. Morgan on 11-10-2022 5.2 g/dL 2.2-4.2 [facility] 33 U/L 39-308 [facility] 100 U/L 45-117 [facility] 27 U/L 16-61 [facility] Platelets bldOrdered By: Dr. Reyes on 11-10-2022 Platelets (Bld) [#/Vol] 283 10*3/uL 150-450 [facility] Serum or plasma C reactive p rotein measurement (mass/volume)Ordered By: Dr. Morgan on 11-10-2022 CRP [Mass/Vol] 32.90 mg/L 0.0-3.0 [facility] Comment on above: C-Reactive Protein ( CRP) provides useful information for thediagnosis, therapy and monitoring of inflammatory processesand associated diseases. For the evaluation of Relative Riskfor Cardiovascular Disease, a High Sensitivity CRP (HSCRP)should be ordered. Serum or plasma albumin abbey urement (mass/volume)Ordered By: Dr. Morgan on 11-10-2022 Albumin [Mass/Vol] 2.6 g/dL 3.2-5.0 [facility] Serum or plasma calcium abbey urement (mass/volume)Ordered By: Dr. Reyes on 11-10-2022 Calcium [Mass/Vol] 9.6 mg/dL 8.5-10.1 [facility] Serum or plasma creatinine m easurement (mass/volume)Ordered By: Dr. Reyes on 11-10-2022 Creatinine [Mass/Vol] 0.77 mg/dL 0.70-1.30 [facility] Comment on above: The validity of the calculated GFR & GFRAA in patients over 70 years has not been determined. Clinical correlation is essential. Serum or plasma urea nitroge n measurement (mass/volume)Ordered By: Dr. Reyes on 11-10-2022 Urea nitrogen [Mass/Vol] 28 mg/dL 7-18 [facility] Thin prep Papanicolaou smear with manual screeningOrdered By: Dr. Morgan on 11-10-2022 Thin prep Papanicolaou smear with manual screening 22 U/L 15-37 [facility] Thin prep Papanicolaou smear with manual screeningOrdered By: Dr. Reyes on 11-10-2022 Thin prep Papanicolaou smear with manual screening 6 5-15 [facility] C-REACTIVE PROTEIN (CRP) (AK ,AV,EU,FV,HL,JALEN,MM,SP)on 11-03-2022 CRP [Mass/Vol] 2.3 mg/dL Abnormal 0.9 mg/dL [facility] CK CREATINE KINASE (AK,AV,EU ,FV,HL,JALEN,MM,SP)on 11-03-2022 CK [Catalytic activity/Vol] 22 U/L Abnormal 51 - 298 U/L [facility] Serum or plasma albumin/glob ulin mass ratioOrdered By: Dr. Reyes on 10-30-2022 Albumin/Globulin [Mass ratio] 0.4 {ratio} 0.9-2.4 [facility] C-REACTIVE PROTEIN (CRP) (AK ,AV,EU,FV,HL,JALEN,MM,SP)on 10-27-2022 CRP [Mass/Vol] 11.9 mg/dL Abnormal 0.9 mg/dL [facility] CBCDIF (EXTERNAL)on 10-27-19 23 BASO ABS [facility] Basophils/100 WBC (Bld) 0.4 % 0 - 1.5 % C [facility] EOS ABS [facility] Eosinophils/100 WBC (Bld) 1.1 % 1 - 3 % [facility] Erythrocyte distribution width (RBC) [Ratio] 14.5 % 11 - 15 % [facility] Hematocrit (Bld) [Volume fraction] 30.6 % Abnormal 39 - 55 % [facility] Hemoglobin (Bld) [Mass/Vol] 9.9 g/dL Abnormal 14 - 16.5 g/dL [facility] Lymphocytes (Bld) [#/Vol] 1.12 10*3/uL Abnormal 1. 2 - 4 K/uL [facility] Lymphocytes/100 WBC (Bld) 9.8 % Abnormal 20 - 30 % [facility] MCH (RBC) [Entitic mass] 30.1 pg 25. 4 - 34.6 pg [facility] MCHC (RBC) [Mass/Vol] 32.4 g/dL 30 - 3 6 g/dL [facility] MCV (RBC) [Entitic vol] 93 fL 79 - 98 fL C [facility] MONO ABS [facility] Monocytes/100 WBC (Bld) 5.7 % 2 - 8 % C [facility] NEUT ABS 9.3 K/uL Abnormal 1.9 - 8 K/uL [facility] Neutrophils/100 WBC (Bld) 81.6 % Abnormal 40 - 74 % [facility] Platelet mean volume (Bld) [Entitic vol] 9.5 fL 7.4 - 10.4 fL [facility] Platelets (Bld) [#/Vol] 304 10*3/uL 140 - 440 K/uL [facility] RBC (Bld) [#/Vol] 3.29 10*6/uL Abnormal 4 - 6 M/uL [facility] WBC (Bld) [#/Vol] 11.4 10*3/uL Abnormal 3.9 - 11 K/uL [facility] CK CREATINE KINASE (AK,AV,EU ,FV,HL,JALEN,MM,SP)on 10-27-2022 CK [Catalytic activity/Vol] 21 U/L Abnormal 51 - 298 U/L [facility] CREATININE BLOOD (AK,AV,EU,F V,HL,JALEN,MM,SP)on 10-27-2022 Creatinine [Mass/Vol] 0.73 mg/dL Abnormal 0.70 - 1.20 mg/dL [facility] GFR AFR AMER 137 mL/MIN 60 mL/MIN [facility] GFR/1.73 sq M.predicted among non-blacks MDRD (S/P/Bld) [Vol rate/Area] 113 mL/min/{1.73_m2} 60 mL/MIN C [facility] HEPATIC FUNCTION PANEL - EXT ERNALon 10-27-2022 Albumin [Mass/Vol] 2.3 g/dL Abnormal 3.5 - 5.2 g/dL [facility] ALBUMIN/GLOBULIN RATIO Cl [facility] ALP [Catalytic activity/Vol] 134 U/L Abnormal 40 - 129 U/L [facility] ALT [Catalytic activity/Vol] 96 U/L Abnormal 0 - 65 IU/L [facility] AST [Catalytic activity/Vol] 74 U/L Abnormal 0 - 42 IU/L [facility] Bili Total 0.5 mg/dL 0.2 - 1 mg/dL [facility] Bilirubin Indirect [facility] Direct Bilirubin 0.16 [facility] GLOBULIN 5.7 [facility] Protein [Mass/Vol] 8 g/dL 6.4 - 8.2 gm/dL [facility] No Panel InformationOrdered By: Dr. Reyes on 10-27-2022 Thyroid Stimulating Hormone (TSH) 0.14 uIU/mL 0.358-3.74 [facility] 0.14 uIU/mL 0.358-3.74 [facility] Bacteria identified Cx Nom ( Wound)Ordered By: Dr. Reyes on 10-18-2022 Wound Culture Proteus mirabilis [facility] Routine wound culture Proteus mirabilis [facility] Gram stain for investigation of transfusion reactionOrdered By: Dr. Reyes on 10-16-2022 Microscopic observation Gram stain Nom (Unsp spec) [facility] No Panel InformationOrdered By: Dr. Reyes on 10-15-2022 Methicillin-Resist S.aureus DNA PCR Negative Negative [facility] Negative Negative [facility] Staphylococcus aureus DNA de tection by probe and target amplification methodOrdered By: Dr. Reyes on 10-15-2022 S. aureus DNA KRISTOPHER+probe Ql (Unsp spec) Positive Negative [facility] C-REACTIVE PROTEIN (CRP) (AK ,AV,EU,FV,HL,JALEN,MM,SP)on 10-13-2022 CRP [Mass/Vol] 3.8 mg/dL Abnormal 0.9 mg/dL [facility] CBCDIF (EXTERNAL)on 10-13-19 23 BASO ABS [facility] Basophils/100 WBC (Bld) 0.8 % 0 - 1.5 % C [facility] EOS ABS [facility] Eosinophils/100 WBC (Bld) 2.6 % 1 - 3 % [facility] Erythrocyte distribution width (RBC) [Ratio] 15.4 % 11.6 - 14.6 % [facility] Hematocrit (Bld) [Volume fraction] 30.1 % Abnormal 39 - 55 % [facility] Hemoglobin (Bld) [Mass/Vol] 9.6 g/dL Abnormal 14 - 16.5 g/dL [facility] Lymphocytes (Bld) [#/Vol] 1.24 10*3/uL 1. 2 - 4 K/uL [facility] Lymphocytes/100 WBC (Bld) 16.2 % Abnormal 20 - 30 % [facility] MCH (RBC) [Entitic mass] 29.9 pg 25. 4 - 34.6 pg [facility] MCHC (RBC) [Mass/Vol] 31.9 g/dL 30 - 3 6 g/dL [facility] MCV (RBC) [Entitic vol] 93.8 fL 79 - 98 fL C [facility] MONO ABS [facility] Monocytes/100 WBC (Bld) 7.6 % 2 - 8 % C [facility] NEUT ABS 5.5 K/uL 1.9 - 8 K/uL [facility] Neutrophils/100 WBC (Bld) 72 % 40 - 74 % [facility] Platelet mean volume (Bld) [Entitic vol] 9.6 fL 7.4 - 10.4 fL [facility] Platelets (Bld) [#/Vol] 324 10*3/uL 140 - 440 K/uL [facility] RBC (Bld) [#/Vol] 3.21 10*6/uL Abnormal 4 - 6 M/uL [facility] WBC (Bld) [#/Vol] 7.7 10*3/uL 3.9 - 11 K/uL [facility] CK CREATINE KINASE (AK,AV,EU ,FV,HL,JALEN,MM,SP)on 10-13-2022 CK [Catalytic activity/Vol] 18 U/L Abnormal 51 - 298 U/L [facility] CREATININE BLOOD (AK,AV,EU,F V,HL,JALEN,MM,SP)on 10-13-2022 Creatinine [Mass/Vol] 0.75 mg/dL 0.70 - 1.20 mg/dL [facility] GFR AFR AMER 133 mL/MIN 60 mL/MIN [facility] GFR/1.73 sq M.predicted among non-blacks MDRD (S/P/Bld) [Vol rate/Area] 110 mL/min/{1.73_m2} 60 mL/MIN C [facility] HEPATIC FUNCTION PANEL - EXT ERNALon 10-13-2022 Albumin [Mass/Vol] 1.9 g/dL Abnormal 3.5 - 5.2 g/dL [facility] ALBUMIN/GLOBULIN RATIO [facility] ALP [Catalytic activity/Vol] 94 U/L 40 - 129 U/L [facility] ALT [Catalytic activity/Vol] 33 U/L 0 - 65 IU/L [facility] AST [Catalytic activity/Vol] 30 U/L 0 - 42 IU/L [facility] Bili Total 0.4 mg/dL 0.2 - 1 mg/dL [facility] Bilirubin Indirect [facility] Bilirubin.direct [Mass/Vol] 0.17 mg/dL 0.3 mg/dL [facility] Globulin (S) [Mass/Vol] 4.5 g/dL Abnormal 2.2 - 4.2 g/dL [facility] Protein [Mass/Vol] 6.4 g/dL 6.4 - 8.2 gm/dL [facility] COVID-19 virus antigen assay Ordered By: Dr. Reyes on 10-11-2022 SARS-CoV-2 (COVID-19) Ag IA.rapid Ql (Resp) [facility] Basophil percentageon 2022 Chloride [Moles/Vol] 102 mmol/L 98-107 [facility] Work Phone: Glucose [Mass/Vol] 100 mg/dL 74-106 [facility] Work Phone: Comment on above: Fasting Glucose resu lt from 100 to 125 mg/dL suggests IMPAIRED HOMEOSTASIS per A.D.A. criteria. Potassium [Moles/Vol] 3.5 mmol/L 3.5-5.1 [facility] Work Phone: Sodium [Moles/Vol] 138 mmol/L 136-145 [facility] Work Phone: Clostridium difficile detect ion by polymerase chain reactionOrdered By: Dr. Reyes on 10-08-2022 C. difficile DNA KRISTOPHER+probe Ql (Unsp spec) [facility] Glucose Glucometer (BldC) [M ass/Vol]on 10-08-2022 Glucose [Mass/Vol] 96 mg/dL 74-106 [facility] Work Phone: Comment on above: MANAGEMENT OF PATIEN T CARE PER NURSING PROTOCOL Laboratory - Chemistry and C hemistry - challengeon 10-08-2022 CO2 [Moles/Vol] 31.0 mmol/L 21.0-32.0 [facility] Work Phone: Urea nitrogen/Creatinine [Mass ratio] 12.3 mg/mg 10-20 [facility] Work Phone: No Panel Informationon 10-08 Estimated Creatinine Clearance Calc 62.91 ml/min [facility] Work Phone: Estimated GFR (MDRD) Amer 137 mL/min >60 [facility] Work Phone: Comment on above: GFR Calc Estimated GFR (MDRD) Non-Af Amer 113 mL/min >60 [facility] Work Phone: Comment on above: Non- GFR Calc Serum or plasma calcium abbey urement (mass/volume)on 10-08-2022 Calcium [Mass/Vol] 8.3 mg/dL 8.5-10.1 [facility] Work Phone: Serum or plasma creatinine m easurement (mass/volume)on 10-08-2022 Creatinine [Mass/Vol] 0.73 mg/dL 0.70-1.30 [facility] Work Phone: Comment on above: The validity of the calculated GFR & GFRAA in patients over 70 years has not been determined. Clinical correlation is essential. Serum or plasma urea nitroge n measurement (mass/volume)on 10-08-2022 Urea nitrogen [Mass/Vol] 9 mg/dL 7-18 [facility] Work Phone: Thin prep Papanicolaou smear with manual screeningon 10-08-2022 Thin prep Papanicolaou smear with manual screening 5 5-15 [facility] Work Phone: Absolute lymphocyte counton 10-06-2022 Lymphocytes Auto (Unsp spec) [#/Vol] 1.12 10*3/uL 0.83-4.51 [facility] Work Phone: Basophil percentageon 2022 Basophils/100 WBC (Bld) 0.4 % 0-1 [facility] Work Phone: Eosinophils/100 WBC (Bld) 1.1 % 0-5 [facility] Work Phone: Neutrophils (Bld) [#/Vol] 9.3 10*3/uL 2.0-7.7 [facility] Work Phone: Neutrophils/100 WBC (Bld) 81.6 % 47-70 [facility] Work Phone: WBC (Bld) [#/Vol] 11.4 10*3/uL 4.4-11.0 [facility] Work Phone: Blood erythrocytes count (nu mber/volume)on 10-06-2022 RBC (Bld) [#/Vol] 3.29 10*6/uL 4.6-6.2 [facility] Work Phone: Blood hemoglobin measurement (mass/volume)on 10-06-2022 Hemoglobin (Bld) [Mass/Vol] 9.9 g/dL 13.0-16.5 [facility] Work Phone: Blood lymphocytes/100 leukoc yteson 10-06-2022 Lymphocytes/100 WBC (Bld) 9.8 % 19-41 [facility] Work Phone: Blood monocytes/100 leukocyt eson 10-06-2022 Monocytes/100 WBC (Bld) 5.7 % 0-10 [facility] Work Phone: Blood platelet mean volumeon 10-06-2022 Platelet mean volume (Bld) [Entitic vol] 9.5 fL 6.2-12.0 [facility] Work Phone: Determination of erythrocyte mean corpuscular volume (MCV)on 10-06-2022 MCV (RBC) [Entitic vol] 93.0 fL 80-94 [facility] Work Phone: Hematocrit Auto (Bld) [Volum e fraction]on 10-06-2022 Hematocrit (Bld) [Volume fraction] 30.6 % 40-54 [facility] Work Phone: Laboratory - Hematology and Cell countson 10-06-2022 Erythrocyte distribution width (RBC) [Entitic vol] 48.1 fL 35.1-43.9 [facility] Work Phone: Erythrocyte distribution width (RBC) [Ratio] 14.5 % 11.6-14.6 [facility] Work Phone: Immature granulocytes/100 WBC (Bld) 1.400 % 0.0-0.9 [facility] Work Phone: Comment on above: IG% - Immature Granu locytes (promyelocytes, myelocytes and metamyelocytes) > 1% indicates that a LEFT SHIFT is Present. MCH (RBC) [Entitic mass] 30.1 pg 27.0-32.0 [facility] Work Phone: Nucleated RBC/100 WBC (Bld) [Ratio] 0 % 0-5 [facility] Work Phone: MCHC Auto (RBC) [Mass/Vol]on 10-06-2022 MCHC (RBC) [Mass/Vol] 32.4 g/dL 32-36 [facility] Work Phone: Platelets bldon 10-06-2022 Platelets (Bld) [#/Vol] 304 10*3/uL 150-450 [facility] Work Phone: No Panel InformationOrdered By: Dr. Quick on 09-25-2022 D-Dimer Quantitative (PE/DVT) 1.70 FEU/ug/m 0.27-0.49 [facility] Comment on above: D-Dimer ELEVATED (>0 .49): Additional studies and clinicalassessments are indicated to conclude diagnosis of:Deep Vein Thrombosis (DVT) or Pulmonary Embolism (PE) 1.70 FEU/ug/m 0.27-0.49 [facility] Absolute lymphocyte countOrd ered By: Dr. Tatum on 09-13-2022 Lymphocytes Auto (Unsp spec) [#/Vol] 0.98 10*3/uL 0.83-4.51 [facility] Basophil percentageOrdered B y: Dr. Tatum on 09-13-2022 Basophil percentage 145 mg/dL 74-106 [facility] Basophil percentage 132 mmol/L 136-145 [facility] Basophil percentage 3.6 mmol/L 3.5-5.1 [facility] Basophil percentage 95 mmol/L 98-107 [facility] Basophils (Bld) [#/Vol] 10.8 10*3/uL 4.4-11.0 [facility] Basophils (Bld) [#/Vol] 8.8 10*3/uL 2.0-7.7 [facility] Basophils/100 WBC (Bld) 0.6 % 0-1 [facility] Basophils/100 WBC (Bld) 81.6 % 47-70 [facility] Chloride [Moles/Vol] 95 mmol/L 98-107 [facility] Eosinophils/100 WBC (Bld) 0.6 % 0-5 [facility] Glucose [Mass/Vol] 145 mg/dL 74-106 [facility] Comment on above: Fasting Glucose resu lt greater than or equal to 126 mg/dL suggests DIABETES MELLITUS per A.D.A. criteria. Neutrophils (Bld) [#/Vol] 8.8 10*3/uL 2.0-7.7 [facility] Neutrophils/100 WBC (Bld) 81.6 % 47-70 [facility] Potassium [Moles/Vol] 3.6 mmol/L 3.5-5.1 [facility] Sodium [Moles/Vol] 132 mmol/L 136-145 [facility] WBC (Bld) [#/Vol] 10.8 10*3/uL 4.4-11.0 [facility] Blood erythrocytes count (nu mber/volume)Ordered By: Dr. Tatum on 09-13-2022 RBC (Bld) [#/Vol] 3.81 10*6/uL 4.6-6.2 [facility] Blood hemoglobin measurement (mass/volume)Ordered By: Dr. Tatum on 09-13-2022 Hemoglobin (Bld) [Mass/Vol] 11.7 g/dL 13.0-16.5 [facility] Blood lymphocytes/100 leukoc ytesOrdered By: Dr. Tatum on 09-13-2022 Lymphocytes/100 WBC (Bld) 9.1 % 19-41 [facility] Blood monocytes/100 leukocyt esOrdered By: Dr. Tatum on 09-13-2022 Monocytes/100 WBC (Bld) 7.3 % 0-10 [facility] [facility] Blood platelet mean volumeOr dered By: Dr. Tatum on 09-13-2022 Platelet mean volume (Bld) [Entitic vol] 9.0 fL 6.2-12.0 [facility] Determination of erythrocyte mean corpuscular volume (MCV)Ordered By: Dr. Tatum on 09-13-2022 MCV (RBC) [Entitic vol] 94.2 fL 80-94 [facility] Hematocrit Auto (Bld) [Volum e fraction]Ordered By: Dr. Tatum on 09-13-2022 Hematocrit (Bld) [Volume fraction] 35.9 % 40-54 [facility] Influenza virus A and B and SARS-CoV-2 (COVID-19) Ag panel - Upper respiratory specimOrdered By: Dr. Tatum on 09-13-2022 SARS-CoV-2 (COVID-19) RNA KRISTOPHER+probe Ql (Resp) [facility] Laboratory - Chemistry and C hemistry - challengeOrdered By: Dr. Tatum on 09-13-2022 CO2 [Moles/Vol] 28.0 mmol/L 21.0-32.0 [facility] Natriuretic peptide B (Bld) [Mass/Vol] 24.7 pg/mL 0-100 [facility] Urea nitrogen/Creatinine [Mass ratio] 16.2 mg/mg 10-20 [facility] Laboratory - Hematology and Cell countsOrdered By: Dr. Tatum on 09-13-2022 Erythrocyte distribution width (RBC) [Entitic vol] 47.3 fL 35.1-43.9 [facility] Erythrocyte distribution width (RBC) [Ratio] 13.7 % 11.6-14.6 [facility] Immature granulocytes/100 WBC (Bld) 0.800 % 0.0-0.9 [facility] Comment on above: IG% - Immature Granu locytes (promyelocytes, myelocytes and metamyelocytes) > 1% indicates that a LEFT SHIFT is Present. MCH (RBC) [Entitic mass] 30.7 pg 27.0-32.0 [facility] Nucleated RBC/100 WBC (Bld) [Ratio] 0 % 0-5 [facility] MCHC Auto (RBC) [Mass/Vol]Or dered By: Dr. Tatum on 09-13-2022 MCHC (RBC) [Mass/Vol] 32.6 g/dL 32-36 [facility] No Panel InformationOrdered By: Dr. Tatum on 09-13-2022 D-Dimer Quantitative (PE/DVT) 2.03 FEU/ug/m 0.27-0.49 [facility] Comment on above: CRITICAL VALUE VERIF IED. [facility]22 0950 Julian Chowdhury.RESULTS READ BACK BY SAME . D-Dimer ELEVATED (>0.49): Additional studies and clinicalassessments are indicated to conclude diagnosis of:Deep Vein Thrombosis (DVT) or Pulmonary Embolism (PE) Estimated Creatinine Clearance Calc 62.91 ml/min [facility] Estimated GFR (MDRD) Amer 165 mL/min >60 [facility] Comment on above: GFR Calc Estimated GFR (MDRD) Non-Af Amer 137 mL/min >60 [facility] Comment on above: Non- GFR Calc Troponin I High Sensitivity 7 pg/mL 3.0-78.0 [facility] Comment on above: Please Note: New Trisha t Units and Gender Specific Reference Ranges. For more information see Policy Stat Procedure [place] High Sensitivity Troponin (TNIH) and attachments. 30.7 pg 27.0-32.0 [facility] 13.7 % 11.6-14.6 [facility] 47.3 fl 35.1-43.9 [facility] 0.800 % 0.0-0.9 [facility] 0 % 0-5 [facility] 2.03 FEU/ug/m 0.27-0.49 [facility] 137 mL/min >60 [facility] 165 mL/min >60 [facility] 62.91 ml/min [facility] 16.2 RATIO 10-20 [facility] 7 pg/mL 3.0-78.0 [facility] 28.0 mmol/L 21.0-32.0 [facility] 24.7 pg/mL 0-100 [facility] Platelets bldOrdered By: Dr. Tatum on 09-13-2022 Platelets (Bld) [#/Vol] 547 10*3/uL 150-450 [facility] Serum or plasma calcium abbey urement (mass/volume)Ordered By: Dr. Tatum on 09-13-2022 Calcium [Mass/Vol] 9.5 mg/dL 8.5-10.1 [facility] Serum or plasma creatinine m easurement (mass/volume)Ordered By: Dr. Tatum on 09-13-2022 Creatinine [Mass/Vol] 0.62 mg/dL 0.70-1.30 [facility] Comment on above: The validity of the calculated GFR & GFRAA in patients over 70 years has not been determined. Clinical correlation is essential. Serum or plasma urea nitroge n measurement (mass/volume)Ordered By: Dr. Tatum on 09-13-2022 Urea nitrogen [Mass/Vol] 10 mg/dL 7-18 [facility] Thin prep Papanicolaou smear with manual screeningOrdered By: Dr. Tatum on 09-13-2022 Thin prep Papanicolaou smear with manual screening 9 5-15 [facility] Absolute lymphocyte countOrd ered By: Dr. Quick on 08-30-2022 Lymphocytes Auto (Unsp spec) [#/Vol] 1.54 10*3/uL 0.83-4.51 [facility] Basophil percentageOrdered B y: Dr. Quick on 08-30-2022 Basophil percentage 111 mg/dL 74-106 [facility] Basophil percentage 8.9 g/dL 6.4-8.2 [facility] Basophil percentage 0.90 mg/dL 0.20-1.00 [facility] Basophil percentage 130 mmol/L 136-145 [facility] Basophil percentage 3.8 mmol/L 3.5-5.1 [facility] Basophil percentage 97 mmol/L 98-107 [facility] Basophils (Bld) [#/Vol] 9.6 10*3/uL 4.4-11.0 [facility] Basophils (Bld) [#/Vol] 6.8 10*3/uL 2.0-7.7 [facility] Basophils/100 WBC (Bld) 0.6 % 0-1 [facility] Basophils/100 WBC (Bld) 71.0 % 47-70 [facility] Basophils/100 WBC (Bld) 1.1 % 0-5 [facility] Basophil percentageon 2021 Bilirubin [Mass/Vol] 0.90 mg/dL 0.20-1.00 [facility] Work Phone: Comment on above: For patients on eltr ombopag therapy, use of Dimension [place] TBIL is not recommended. Chloride [Moles/Vol] 97 mmol/L 98-107 [facility] Work Phone: Eosinophils/100 WBC (Bld) 1.1 % 0-5 [facility] Work Phone: Glucose [Mass/Vol] 111 mg/dL 74-106 [facility] Work Phone: Comment on above: Fasting Glucose resu lt from 100 to 125 mg/dL suggests IMPAIRED HOMEOSTASIS per A.D.A. criteria. Neutrophils (Bld) [#/Vol] 6.8 10*3/uL 2.0-7.7 [facility] Work Phone: Neutrophils/100 WBC (Bld) 71.0 % 47-70 [facility] Work Phone: Potassium [Moles/Vol] 3.8 mmol/L 3.5-5.1 [facility] Work Phone: Protein [Mass/Vol] 8.9 g/dL 6.4-8.2 [facility] Work Phone: Sodium [Moles/Vol] 130 mmol/L 136-145 [facility] Work Phone: WBC (Bld) [#/Vol] 9.6 10*3/uL 4.4-11.0 [facility] Work Phone: Blood erythrocytes count (nu mber/volume)Ordered By: Dr. Quick on 08-30-2022 RBC (Bld) [#/Vol] 4.19 10*6/uL 4.6-6.2 [facility] Blood hemoglobin measurement (mass/volume)Ordered By: Dr. Quick on 08-30-2022 Hemoglobin (Bld) [Mass/Vol] 13.4 g/dL 13.0-16.5 [facility] Blood lymphocytes/100 leukoc ytesOrdered By: Dr. Quick on 08-30-2022 Lymphocytes/100 WBC (Bld) 16.1 % 19-41 [facility] Blood monocytes/100 leukocyt esOrdered By: Dr. Quick on 08-30-2022 Monocytes/100 WBC (Bld) 10.6 % 0-10 [facility] Blood platelet mean volumeOr dered By: Dr. Quick on 08-30-2022 Platelet mean volume (Bld) [Entitic vol] 9.8 fL 6.2-12.0 [facility] Determination of erythrocyte mean corpuscular volume (MCV)Ordered By: Dr. Quick on 08-30-2022 MCV (RBC) [Entitic vol] 96.4 fL 80-94 [facility] Erythrocyte sedimentation ra teOrdered By: Dr. Quick on 08-30-2022 ESR (Bld) [Velocity] 63 mm/h 0-20 [facility] Hematocrit Auto (Bld) [Volum e fraction]Ordered By: Dr. Quick on 08-30-2022 Hematocrit (Bld) [Volume fraction] 40.4 % 40-54 [facility] Laboratory - Chemistry and C hemistry - challengeon 08-30-2022 ALP [Catalytic activity/Vol] 75 U/L 45-117 [facility] Work Phone: ALT [Catalytic activity/Vol] 29 U/L 16-61 [facility] Work Phone: CO2 [Moles/Vol] 26.0 mmol/L 21.0-32.0 [facility] Work Phone: Globulin (S) [Mass/Vol] 5.8 g/dL 2.2-4.2 [facility] Work Phone: Urea nitrogen/Creatinine [Mass ratio] 12.9 mg/mg 10-20 [facility] Work Phone: [phone] Laboratory - Hematology and Cell countson 08-30-2022 Erythrocyte distribution width (RBC) [Entitic vol] 48.6 fL 35.1-43.9 [facility] Work Phone: Erythrocyte distribution width (RBC) [Ratio] 13.6 % 11.6-14.6 [facility] Work Phone: Immature granulocytes/100 WBC (Bld) 0.600 % 0.0-0.9 [facility] Work Phone: Comment on above: IG% - Immature Granu locytes (promyelocytes, myelocytes and metamyelocytes) > 1% indicates that a LEFT SHIFT is Present. MCH (RBC) [Entitic mass] 32.0 pg 27.0-32.0 [facility] Work Phone: Nucleated RBC/100 WBC (Bld) [Ratio] 0 % 0-5 [facility] Work Phone: MCHC Auto (RBC) [Mass/Vol]Or dered By: Dr. Quick on 08-30-2022 MCHC (RBC) [Mass/Vol] 33.2 g/dL 32-36 [facility] No Panel Informationon 08-30 Estimated GFR (MDRD) Amer 127 mL/min >60 [facility] Work Phone: Comment on above: GFR Calc Estimated GFR (MDRD) Non-Af Amer 105 mL/min >60 [facility] Work Phone: Comment on above: Non- GFR Calc No Panel InformationOrdered By: Dr. Quick on 08-30-2022 32.0 pg 27.0-32.0 [facility] 13.6 % 11.6-14.6 [facility] 48.6 fl 35.1-43.9 [facility] 0.600 % 0.0-0.9 [facility] 0 % 0-5 [facility] 105 mL/min >60 [facility] 127 mL/min >60 [facility] 12.9 RATIO 10-20 [facility] 5.8 g/dL 2.2-4.2 [facility] 75 U/L 45-117 [facility] 29 U/L 16-61 [facility] 26.0 mmol/L 21.0-32.0 [facility] Platelets bldOrdered By: Dr. Quick on 08-30-2022 Platelets (Bld) [#/Vol] 340 10*3/uL 150-450 [facility] Serum or plasma C reactive p rotein measurement (mass/volume)Ordered By: Dr. Quick on 08-30-2022 CRP [Mass/Vol] 201.00 mg/L 0.0-3.0 [facility] Comment on above: C-Reactive Protein ( CRP) provides useful information for thediagnosis, therapy and monitoring of inflammatory processesand associated diseases. For the evaluation of Relative Riskfor Cardiovascular Disease, a High Sensitivity CRP (HSCRP)should be ordered. Serum or plasma albumin abbey urement (mass/volume)Ordered By: Dr. Quick on 08-30-2022 Albumin [Mass/Vol] 3.1 g/dL 3.2-5.0 [facility] Serum or plasma albumin/glob ulin mass ratioOrdered By: Dr. Quick on 08-30-2022 Albumin/Globulin [Mass ratio] 0.5 {ratio} 0.9-2.4 [facility] Serum or plasma calcium abbey urement (mass/volume)Ordered By: Dr. Quick on 08-30-2022 Calcium [Mass/Vol] 10.1 mg/dL 8.5-10.1 [facility] Serum or plasma creatinine m easurement (mass/volume)Ordered By: Dr. Quick on 08-30-2022 Creatinine [Mass/Vol] 0.78 mg/dL 0.70-1.30 [facility] Comment on above: The validity of the calculated GFR & GFRAA in patients over 70 years has not been determined. Clinical correlation is essential. Serum or plasma urea nitroge n measurement (mass/volume)Ordered By: Dr. Quick on 08-30-2022 Urea nitrogen [Mass/Vol] 10 mg/dL 7-18 [facility] Thin prep Papanicolaou smear with manual screeningOrdered By: Dr. Quick on 08-30-2022 Thin prep Papanicolaou smear with manual screening 21 U/L 15-37 [facility] Thin prep Papanicolaou smear with manual screening 7 5-15 [facility] Laboratory - Hematology and Cell countson 08-26-2022 HbA1c (Bld) [Mass fraction] 6.9 % 4.2-6.3 [facility] Work Phone: No Panel Informationon 08-26 6.9 % 4.2-6.3 [facility] No Panel InformationOrdered By: Dr. Morgan on 08-12-2022 No growth in 5 days. [facility] Glucose Glucometer (BldC) [M ass/Vol]Ordered By: Dr. Cabrera on 08-09-2022 Glucose [Mass/Vol] 159 mg/dL 74-106 [facility] Comment on above: MANAGEMENT OF PATIEN T CARE PER NURSING PROTOCOL Vancomycin troughOrdered By: Dr. Cabrera on 08-08-2022 Vancomycin trough [Mass/Vol] 19.6 ug/mL 5.0-15.0 [facility] Comment on above: VANCOMYCIN STANDARED DRUG THERAPY TROUGH LEVEL: 5.0 - 15.0 mg/L VANCOMYCIN HIGH INTENSITY THERAPY TROUGH LEVEL: 15.0 - 20.0 mg/L High Intensity therapy recommended for serious lifethreatening infections include:- Edtpyiwkng-Slkslimuousm-Dxnbuabjw (Ventilator/Healtcare Associated)-Sepsis PLEASE CONTACT PHARMACY SERVICES (#1382) FOR INTERPRETATIONOF RESULTS. Absolute lymphocyte countOrd ered By: Dr. Cabrera on 08-06-2022 Lymphocytes Auto (Unsp spec) [#/Vol] 0.38 10*3/uL 0.83-4.51 [facility] Basophil percentageOrdered B y: Dr. Cabrera on 08-06-2022 Basophil percentage 182 mg/dL 74-106 [facility] Basophil percentage 135 mmol/L 136-145 [facility] Basophil percentage 3.6 mmol/L 3.5-5.1 [facility] Basophil percentage 106 mmol/L 98-107 [facility] Basophils (Bld) [#/Vol] 5.1 10*3/uL 4.4-11.0 [facility] Basophils (Bld) [#/Vol] 4.2 10*3/uL 2.0-7.7 [facility] Basophils/100 WBC (Bld) 0.4 % 0-1 [facility] Basophils/100 WBC (Bld) 81.8 % 47-70 [facility] Basophils/100 WBC (Bld) 0.6 % 0-5 [facility] Basophil percentageon 2021 Chloride [Moles/Vol] 106 mmol/L 98-107 [facility] Work Phone: Eosinophils/100 WBC (Bld) 0.6 % 0-5 [facility] Work Phone: Glucose [Mass/Vol] 182 mg/dL 74-106 [facility] Work Phone: [phone] Comment on above: Fasting Glucose resu lt greater than or equal to 126 mg/dL suggests DIABETES MELLITUS per A.D.A. criteria. Neutrophils (Bld) [#/Vol] 4.2 10*3/uL 2.0-7.7 [facility] Work Phone: [phone] Neutrophils/100 WBC (Bld) 81.8 % 47-70 [facility] Work Phone: [phone] Potassium [Moles/Vol] 3.6 mmol/L 3.5-5.1 [facility] Work Phone: [phone] Sodium [Moles/Vol] 135 mmol/L 136-145 [facility] Work Phone: [phone] WBC (Bld) [#/Vol] 5.1 10*3/uL 4.4-11.0 [facility] Work Phone: Blood erythrocytes count (nu mber/volume)Ordered By: Dr. Cabrera on 08-06-2022 RBC (Bld) [#/Vol] 3.73 10*6/uL 4.6-6.2 [facility] Blood hemoglobin measurement (mass/volume)Ordered By: Dr. Cabrera on 08-06-2022 Hemoglobin (Bld) [Mass/Vol] 12.7 g/dL 13.0-16.5 [facility] Blood lymphocytes/100 leukoc ytesOrdered By: Dr. Cabrera on 08-06-2022 Lymphocytes/100 WBC (Bld) 7.4 % 19-41 [facility] Blood manual differential co mment interpretation (narrative result)Ordered By: Dr. Cabrera on 08-06-2022 Manual differential comment Og (Bld) [Interp] SCANNED [facility] Comment on above: LYMPHOPENIA, RARE BA NDS NOTED Blood monocytes/100 leukocyt esOrdered By: Dr. Cabrera on 08-06-2022 Monocytes/100 WBC (Bld) 9.2 % 0-10 [facility] Blood platelet mean volumeOr dered By: Dr. Cabrera on 08-06-2022 Platelet mean volume (Bld) [Entitic vol] 10.1 fL 6.2-12.0 [facility] Determination of erythrocyte mean corpuscular volume (MCV)Ordered By: Dr. Cabrera on 08-06-2022 MCV (RBC) [Entitic vol] 95.7 fL 80-94 [facility] Hematocrit Auto (Bld) [Volum e fraction]Ordered By: Dr. Cabrera on 08-06-2022 Hematocrit (Bld) [Volume fraction] 35.7 % 40-54 [facility] Laboratory - Chemistry and C hemistry - challengeon 08-06-2022 CO2 [Moles/Vol] 23.0 mmol/L 21.0-32.0 [facility] Work Phone: Urea nitrogen/Creatinine [Mass ratio] 22.7 mg/mg 10-20 [facility] Work Phone: Laboratory - Hematology and Cell countson 08-06-2022 Erythrocyte distribution width (RBC) [Entitic vol] 45.1 fL 35.1-43.9 [facility] Work Phone: Erythrocyte distribution width (RBC) [Ratio] 12.7 % 11.6-14.6 [facility] Work Phone: Immature granulocytes/100 WBC (Bld) 0.600 % 0.0-0.9 [facility] Work Phone: Comment on above: IG% - Immature Granu locytes (promyelocytes, myelocytes and metamyelocytes) > 1% indicates that a LEFT SHIFT is Present. MCH (RBC) [Entitic mass] 34.0 pg 27.0-32.0 [facility] Work Phone: Nucleated RBC/100 WBC (Bld) [Ratio] 0 % 0-5 [facility] Work Phone: MCHC Auto (RBC) [Mass/Vol]Or dered By: Dr. Cabrera on 08-06-2022 MCHC (RBC) [Mass/Vol] 35.6 g/dL 32-36 [facility] No Panel Informationon 08-06 Estimated Creatinine Clearance Calc 58.38 ml/min [facility] Work Phone: Estimated GFR (MDRD) Amer 153 mL/min >60 [facility] Work Phone: Comment on above: GFR Calc Estimated GFR (MDRD) Non-Af Amer 127 mL/min >60 [facility] Work Phone: Comment on above: Non- GFR Calc No Panel InformationOrdered By: Dr. Cabrera on 08-06-2022 34.0 pg 27.0-32.0 [facility] 12.7 % 11.6-14.6 [facility] 45.1 fl 35.1-43.9 [facility] 0.600 % 0.0-0.9 [facility] 0 % 0-5 [facility] 127 mL/min >60 [facility] 153 mL/min >60 [facility] 58.38 ml/min [facility] 22.7 RATIO 10-20 [facility] 23.0 mmol/L 21.0-32.0 [facility] Platelets bldOrdered By: Dr. Cabrera on 08-06-2022 Platelets (Bld) [#/Vol] 104 10*3/uL 150-450 [facility] Serum or plasma calcium abbey urement (mass/volume)Ordered By: Dr. Cabrera on 08-06-2022 Calcium [Mass/Vol] 7.7 mg/dL 8.5-10.1 [facility] Serum or plasma creatinine m easurement (mass/volume)Ordered By: Dr. Cabrera on 08-06-2022 Creatinine [Mass/Vol] 0.66 mg/dL 0.70-1.30 [facility] Comment on above: The validity of the calculated GFR & GFRAA in patients over 70 years has not been determined. Clinical correlation is essential. Serum or plasma urea nitroge n measurement (mass/volume)Ordered By: Dr. Cabrera on 08-06-2022 Urea nitrogen [Mass/Vol] 15 mg/dL 7-18 [facility] Thin prep Papanicolaou smear with manual screeningOrdered By: Dr. Cabrera on 08-06-2022 Thin prep Papanicolaou smear with manual screening 6 5-15 [facility] Basophil percentageOrdered B y: Dr. Duran on 08-05-2022 Basophil percentage 5.2 g/dL 6.4-8.2 [facility] Basophil percentage 1.10 mg/dL 0.20-1.00 [facility] Basophil percentageon 2021 Bilirubin [Mass/Vol] 1.10 mg/dL 0.20-1.00 [facility] Work Phone: Comment on above: For patients on eltr ombopag therapy, use of Dimension [place] TBIL is not recommended. Protein [Mass/Vol] 5.2 g/dL 6.4-8.2 [facility] Work Phone: Laboratory - Chemistry and C hemistry - challengeon 08-05-2022 ALP [Catalytic activity/Vol] 42 U/L 45- [facility] Work Phone: ALT [Catalytic activity/Vol] 31 U/L [facility] Work Phone: Globulin (S) [Mass/Vol] 3.1 g/dL 2.2-4.2 [facility] Work Phone: No Panel InformationOrdered By: Dr. Duran on 08-05-2022 3.1 g/dL 2.2-4.2 [facility] 42 U/L [facility] 31 U/L [facility] Serum or plasma albumin abbey urement (mass/volume)Ordered By: Dr. Duran on 08-05-2022 Albumin [Mass/Vol] 2.1 g/dL 3.2-5.0 [facility] Serum or plasma albumin/glob ulin mass ratioOrdered By: Dr. Duran on 08-05-2022 Albumin/Globulin [Mass ratio] 0.7 {ratio} 0.9-2.4 [facility] Thin prep Papanicolaou smear with manual screeningOrdered By: Dr. Duran on 08-05-2022 Thin prep Papanicolaou smear with manual screening 25 U/L 15-37 [facility] Basophil percentageOrdered B y: Dr. Duran on 08-04-2022 Basophil percentage 1.9 mmol/L 0.4-2.0 [facility] Basophil percentageon 2021 Lactate [Moles/Vol] 1.9 mmol/L 0.4-2.0 [facility] Work Phone: Basophil percentageOrdered B y: Dr. Moya on 08-04-2022 Basophil percentage 0 SEEN /hpf 0-5 [facility] Bilirubin Test strip Ql (U)O rdered By: Dr. Moya on 08-04-2022 Bilirubin Ql (U) Negative Negative [facility] Blood band neutrophil count as percentage of total leukocytesOrdered By: Dr. Acosta on 08-04-2022 Band form neutrophils/100 WBC (Bld) 3 % 0-5 [facility] Blood lymphocytes/100 leukoc ytesOrdered By: Dr. Acosta on 08-04-2022 Lymphocytes/100 WBC (Bld) 3 % 19-41 [facility] Blood monocytes/100 leukocyt esOrdered By: Dr. Acosta on 08-04-2022 Monocytes/100 WBC (Bld) 2 % 0-10 [facility] Blood platelet adequacy dete ction by light microscopyOrdered By: Dr. Acosta on 08-04-2022 Platelets LM Ql (Bld) ADEQUATE ADEQ [facility] Blood segmented neutrophils/ [address]: [address] Acosta on 08-04-2022 Segmented neutrophils/100 WBC (Bld) 91 % 47-70 [facility] Dohle bodies detectionOrdere d By: Dr. Acosta on 08-04-2022 Dohle body LM Ql (Bld) 3+ [facility] Erythrocyte sedimentation ra teOrdered By: Dr. Moya on 08-04-2022 ESR (Bld) [Velocity] 2 mm/h 0-20 [facility] Influenza virus A and B and SARS-CoV-2 (COVID-19) Ag panel - Upper respiratory specimOrdered By: Dr. Moya on 08-04-2022 SARS-CoV-2 (COVID-19) RNA KRISTOPHER+probe Ql (Resp) [facility] Ketones Test strip Ql (U)Ord ered By: Dr. Moya on 08-04-2022 Ketones Ql (U) 50 mg/dl Negative [facility] Laboratory - Chemistry and C hemistry - challengeon 08-04-2022 Natriuretic peptide B (Bld) [Mass/Vol] 116.3 pg/mL 0-100 [facility] Work Phone: Laboratory - Hematology and Cell countson 08-04-2022 Myelocytes/100 WBC (Bld) 1 % 0-0 [facility] Work Phone: Mucus LM Ql (Urine sed)Order ed By: Dr. Moya on 08-04-2022 Mucus Ql (Urine sed) RARE /hpf [facility] Nitrite Test strip Ql (U)Ord ered By: Dr. Moya on 08-04-2022 Nitrite Ql (U) Negative Negative [facility] No Panel Informationon 08-04 D-Dimer Quantitative (PE/DVT) 1.46 FEU/ug/m 0.27-0.49 [facility] Work Phone: Comment on above: D-Dimer ELEVATED (>0 .49): Additional studies and clinicalassessments are indicated to conclude diagnosis of:Deep Vein Thrombosis (DVT) or Pulmonary Embolism (PE)CRITICAL VALUE VERIFIED. CALLED TO Alejandro LUGO08/04/22 [facility].RESULTS READ BACK BY SAME . No Panel InformationOrdered By: Dr. Duran on 08-04-2022 1.46 FEU/ug/m 0.27-0.49 [facility] 116.3 pg/mL 0-100 [facility] No Panel InformationOrdered By: Dr. Acosta on 08-04-2022 1 % 0-0 [facility] Protein Test strip Ql (U)Ord ered By: Dr. Moya on 08-04-2022 Protein Ql (U) 100 mg/dl Negative [facility] RBC morphologyOrdered By: Dr Mahesh Acosta on 08-04-2022 RBC morphology finding Nom (Bld) NORM C+C NORMAL NORM C&C [facility] Review by pathologistOrdered By: Dr. Acosta on 08-04-2022 Pathologist review Og (Unsp spec) [Interp] Reviewed [facility] Comment on above: Previous reported re sult: Kaley valerie Edited by: [email or web address] on 08/05/22:1237Neutrophilic leukocytosis.Mild Thrombocytopenia.Clinical correlation necessary.Immanuel Evangelista M.D. 08/05/22 AMENDED REPORT 08/05/22 [id number] PATH REV previously reported as: January valerie Serum or plasma C reactive p rotein measurement (mass/volume)Ordered By: Dr. Moya on 08-04-2022 CRP [Mass/Vol] 157.00 mg/L 0.0-3.0 [facility] Comment on above: C-Reactive Protein ( CRP) provides useful information for thediagnosis, therapy and monitoring of inflammatory processesand associated diseases. For the evaluation of Relative Riskfor Cardiovascular Disease, a High Sensitivity CRP (HSCRP)should be ordered. Squamous epithelial cells de tection in urine sediment by light microscopyOrdered By: Dr. Moya on 08-04-2022 Epithelial cells.squamous LM Ql (Urine sed) 0 SEEN /hpf 0-5 [facility] Total cell countOrdered By: Dr. Acosta on 08-04-2022 Cells counted Molgen (Bld/Tiss) [#] 100 MANUAL DIFF [facility] Urine blood detectionOrdered By: Dr. Moya on 08-04-2022 RBC Ql (U) 50 /ul Negative [facility] RBC Ql (U) 0-5 SEEN /hpf 0-5 [facility] Urine clarityOrdered By: Dr. Moya on 08-04-2022 Clarity (U) Clear Clear [facility] Urine color determinationOrd ered By: Dr. Moya on 08-04-2022 Color (U) Yellow Yellow [facility] Urine glucose detectionOrder ed By: Dr. Moya on 08-04-2022 Glucose Ql (U) 250 mg/dl Normal [facility] Urine leukocyte esterase det ection by dipstickOrdered By: Dr. Moya on 08-04-2022 Leukocyte esterase Test strip Ql (U) Negative Negative [facility] Urine pHOrdered By: Dr. Moya on 08-04-2022 pH (U) 5.0 [pH] 5.0 - 8.0 [facility] Urine sediment bacteria coun t by microscopy (number/high power field)Ordered By: Dr. Moya on 08-04-2022 Bacteria LM.HPF (Urine sed) [#/Area] RARE /hpf None Seen [facility] Urine specific gravity measu rementOrdered By: Dr. Moya on 08-04-2022 Specific gravity (U) [Rel density] 1.020 1.002-1.030 [facility] Urobilinogen Auto test strip Ql (U)Ordered By: Dr. Moya on 08-04-2022 Urobilinogen Ql (U) Normal mg/dl Normal [facility] Absolute lymphocyte counton 08-03-2022 Lymphocytes Auto (Unsp spec) [#/Vol] 0.82 10*3/uL 0.83-4.51 [facility] Work Phone: Basophil percentageon 2021 Basophils/100 WBC (Bld) 0.2 % 0-1 [facility] Work Phone: Chloride [Moles/Vol] 98 mmol/L 98-107 [facility] Work Phone: Eosinophils/100 WBC (Bld) 0.1 % 0-5 [facility] Work Phone: Glucose [Mass/Vol] 245 mg/dL 74-106 [facility] Work Phone: Comment on above: Glucose result great er than or equal to 200 mg/dLsuggests DIABETES MELLITUS per A.D.A. criteria. Neutrophils (Bld) [#/Vol] 13.4 10*3/uL 2.0-7.7 [facility] Work Phone: Neutrophils/100 WBC (Bld) 86.1 % 47-70 [facility] Work Phone: Potassium [Moles/Vol] 4.1 mmol/L 3.5-5.1 [facility] Work Phone: Comment on above: Moderate Hemolysis, Result may be falsely increased. Sodium [Moles/Vol] 132 mmol/L 136-145 [facility] Work Phone: WBC (Bld) [#/Vol] 15.6 10*3/uL 4.4-11.0 [facility] Work Phone: Blood erythrocytes count (nu mber/volume)on 08-03-2022 RBC (Bld) [#/Vol] 4.45 10*6/uL 4.6-6.2 [facility] Work Phone: Blood hemoglobin measurement (mass/volume)on 08-03-2022 Hemoglobin (Bld) [Mass/Vol] 14.7 g/dL 13.0-16.5 [facility] Work Phone: Blood lymphocytes/100 leukoc yteson 08-03-2022 Lymphocytes/100 WBC (Bld) 5.3 % 19-41 [facility] Work Phone: Blood monocytes/100 leukocyt eson 08-03-2022 Monocytes/100 WBC (Bld) 7.4 % 0-10 [facility] Work Phone: Blood platelet mean volumeon 08-03-2022 Platelet mean volume (Bld) [Entitic vol] 9.9 fL 6.2-12.0 [facility] Work Phone: Determination of erythrocyte mean corpuscular volume (MCV)on 08-03-2022 MCV (RBC) [Entitic vol] 96.6 fL 80-94 [facility] Work Phone: Hematocrit Auto (Bld) [Volum e fraction]on 08-03-2022 Hematocrit (Bld) [Volume fraction] 43.0 % 40-54 [facility] Work Phone: Laboratory - Chemistry and C hemistry - challengeon 08-03-2022 CO2 [Moles/Vol] 25.0 mmol/L 21.0-32.0 [facility] Work Phone: Urea nitrogen/Creatinine [Mass ratio] 21.6 mg/mg 10-20 [facility] Work Phone: Laboratory - Hematology and Cell countson 08-03-2022 Erythrocyte distribution width (RBC) [Entitic vol] 45.3 fL 35.1-43.9 [facility] Work Phone: Erythrocyte distribution width (RBC) [Ratio] 12.8 % 11.6-14.6 [facility] Work Phone: Immature granulocytes/100 WBC (Bld) 0.900 % 0.0-0.9 [facility] Work Phone: Comment on above: IG% - Immature Granu locytes (promyelocytes, myelocytes and metamyelocytes) > 1% indicates that a LEFT SHIFT is Present. MCH (RBC) [Entitic mass] 33.0 pg 27.0-32.0 [facility] Work Phone: Nucleated RBC/100 WBC (Bld) [Ratio] 0 % 0-5 [facility] Work Phone: MCHC Auto (RBC) [Mass/Vol]on 08-03-2022 MCHC (RBC) [Mass/Vol] 34.2 g/dL 32-36 [facility] Work Phone: No Panel Informationon 08-03 Estimated Creatinine Clearance Calc 66.13 ml/min [facility] Work Phone: Estimated GFR (MDRD) Amer 93 mL/min >60 [facility] Work Phone: Comment on above: GFR Calc Estimated GFR (MDRD) Non-Af Amer 77 mL/min >60 [facility] Work Phone: Comment on above: Non- GFR Calc Platelets bldon 08-03-2022 Platelets (Bld) [#/Vol] 200 10*3/uL 150-450 [facility] Work Phone: Serum or plasma calcium abbey urement (mass/volume)on 08-03-2022 Calcium [Mass/Vol] 9.7 mg/dL 8.5-10.1 [facility] Work Phone: Serum or plasma creatinine m easurement (mass/volume)on 08-03-2022 Creatinine [Mass/Vol] 1.02 mg/dL 0.70-1.30 [facility] Work Phone: Comment on above: The validity of the calculated GFR & GFRAA in patients over 70 years has not been determined. Clinical correlation is essential. Serum or plasma urea nitroge n measurement (mass/volume)on 08-03-2022 Urea nitrogen [Mass/Vol] 22 mg/dL 7-18 [facility] Work Phone: Thin prep Papanicolaou smear with manual screeningon 08-03-2022 Thin prep Papanicolaou smear with manual screening 9 5-15 [facility] Work Phone: Absolute lymphocyte countOrd ered By: Dr. Jordan on 07-22-2022 Lymphocytes Auto (Unsp spec) [#/Vol] 2.11 10*3/uL 0.83-4.51 [facility] Basophil percentageOrdered B y: Dr. Jordan on 07-22-2022 Basophils (Bld) [#/Vol] 7.2 10*3/uL 4.4-11.0 [facility] Basophils (Bld) [#/Vol] 4.1 10*3/uL 2.0-7.7 [facility] Basophils/100 WBC (Bld) 1.4 % 0-1 [facility] Basophils/100 WBC (Bld) 57.2 % 47-70 [facility] Basophils/100 WBC (Bld) 4.6 % 0-5 [facility] Basophil percentageon 2021 Eosinophils/100 WBC (Bld) 4.6 % 0-5 [facility] Work Phone: [phone] Neutrophils (Bld) [#/Vol] 4.1 10*3/uL 2.0-7.7 [facility] Work Phone: [phone] Neutrophils/100 WBC (Bld) 57.2 % 47-70 [facility] Work Phone: WBC (Bld) [#/Vol] 7.2 10*3/uL 4.4-11.0 [facility] Work Phone: Blood erythrocytes count (nu mber/volume)Ordered By: Dr. Jordan on 07-22-2022 RBC (Bld) [#/Vol] 4.31 10*6/uL 4.6-6.2 [facility] Blood hemoglobin measurement (mass/volume)Ordered By: Dr. Jordan on 07-22-2022 Hemoglobin (Bld) [Mass/Vol] 14.8 g/dL 13.0-16.5 [facility] Blood lymphocytes/100 leukoc ytesOrdered By: Dr. Jordan on 07-22-2022 Lymphocytes/100 WBC (Bld) 29.3 % 19-41 [facility] Blood monocytes/100 leukocyt esOrdered By: Dr. Jordan on 07-22-2022 Monocytes/100 WBC (Bld) 7.2 % 0-10 [facility] Blood platelet mean volumeOr dered By: Dr. Jordan on 07-22-2022 Platelet mean volume (Bld) [Entitic vol] 9.8 fL 6.2-12.0 [facility] Determination of erythrocyte mean corpuscular volume (MCV)Ordered By: Dr. Jordan on 07-22-2022 MCV (RBC) [Entitic vol] 97.2 fL 80-94 [facility] Hematocrit Auto (Bld) [Volum e fraction]Ordered By: Dr. Jordan on 07-22-2022 Hematocrit (Bld) [Volume fraction] 41.9 % 40-54 [facility] Laboratory - Hematology and Cell countson 07-22-2022 Erythrocyte distribution width (RBC) [Entitic vol] 46.0 fL 35.1-43.9 [facility] Work Phone: Erythrocyte distribution width (RBC) [Ratio] 12.8 % 11.6-14.6 [facility] Work Phone: Immature granulocytes/100 WBC (Bld) 0.300 % 0.0-0.9 [facility] Work Phone: Comment on above: IG% - Immature Granu locytes (promyelocytes, myelocytes and metamyelocytes) > 1% indicates that a LEFT SHIFT is Present. MCH (RBC) [Entitic mass] 34.3 pg 27.0-32.0 [facility] Work Phone: Nucleated RBC/100 WBC (Bld) [Ratio] 0 % 0-5 [facility] Work Phone: MCHC Auto (RBC) [Mass/Vol]Or dered By: Dr. Jordan on 07-22-2022 MCHC (RBC) [Mass/Vol] 35.3 g/dL 32-36 [facility] No Panel InformationOrdered By: Dr. Jordan on 07-22-2022 34.3 pg 27.0-32.0 [facility] 12.8 % 11.6-14.6 [facility] 46.0 fl 35.1-43.9 [facility] 0.300 % 0.0-0.9 [facility] 0 % 0-5 [facility] Platelets bldOrdered By: Dr. Jordan on 07-22-2022 Platelets (Bld) [#/Vol] 179 10*3/uL 150-450 [facility] Serum or plasma ferritin chidi surement (mass/volume)Ordered By: Dr. Jordan on 07-22-2022 Ferritin [Mass/Vol] 161 ng/mL 26-388 [facility] Absolute lymphocyte counton 06-25-2022 Lymphocytes Auto (Unsp spec) [#/Vol] 2.13 10*3/uL 0.83-4.51 [facility] Work Phone: Basophil percentageon 2021 Basophils/100 WBC (Bld) 1.3 % 0-1 [facility] Work Phone: Eosinophils/100 WBC (Bld) 5.3 % 0-5 [facility] Work Phone: Neutrophils (Bld) [#/Vol] 3.5 10*3/uL 2.0-7.7 [facility] Work Phone: Neutrophils/100 WBC (Bld) 51.3 % 47-70 [facility] Work Phone: WBC (Bld) [#/Vol] 6.7 10*3/uL 4.4-11.0 [facility] Work Phone: Blood erythrocytes count (nu mber/volume)on 06-25-2022 RBC (Bld) [#/Vol] 4.06 10*6/uL 4.6-6.2 [facility] Work Phone: Blood hemoglobin measurement (mass/volume)on 06-25-2022 Hemoglobin (Bld) [Mass/Vol] 13.8 g/dL 13.0-16.5 [facility] Work Phone: [phone] Blood lymphocytes/100 leukoc yteson 06-25-2022 Lymphocytes/100 WBC (Bld) 31.6 % 19-41 [facility] Work Phone: [phone] Blood monocytes/100 leukocyt eson 06-25-2022 Monocytes/100 WBC (Bld) 10.2 % 0-10 [facility] Work Phone: Blood platelet mean volumeon 06-25-2022 Platelet mean volume (Bld) [Entitic vol] 10.1 fL 6.2-12.0 [facility] Work Phone: Determination of erythrocyte mean corpuscular volume (MCV)on 06-25-2022 MCV (RBC) [Entitic vol] 97.0 fL 80-94 [facility] Work Phone: Hematocrit Auto (Bld) [Volum e fraction]on 06-25-2022 Hematocrit (Bld) [Volume fraction] 39.4 % 40-54 [facility] Work Phone: Laboratory - Hematology and Cell countson 06-25-2022 Erythrocyte distribution width (RBC) [Entitic vol] 47.8 fL 35.1-43.9 [facility] Work Phone: Erythrocyte distribution width (RBC) [Ratio] 13.4 % 11.6-14.6 [facility] Work Phone: Immature granulocytes/100 WBC (Bld) 0.300 % 0.0-0.9 [facility] Work Phone: Comment on above: IG% - Immature Granu locytes (promyelocytes, myelocytes and metamyelocytes) > 1% indicates that a LEFT SHIFT is Present. MCH (RBC) [Entitic mass] 34.0 pg 27.0-32.0 [facility] Work Phone: Nucleated RBC/100 WBC (Bld) [Ratio] 0 % 0-5 [facility] Work Phone: MCHC Auto (RBC) [Mass/Vol]on 06-25-2022 MCHC (RBC) [Mass/Vol] 35.0 g/dL 32-36 [facility] Work Phone: Platelets bldon 06-25-2022 Platelets (Bld) [#/Vol] 191 10*3/uL 150-450 [facility] Work Phone: Absolute lymphocyte counton 05-03-2022 Lymphocytes Auto (Unsp spec) [#/Vol] 1.75 10*3/uL 0.83-4.51 [facility] Work Phone: Basophil percentageon 2021 Basophils/100 WBC (Bld) 2.0 % 0-1 [facility] Work Phone: [phone] Bilirubin [Mass/Vol] 0.50 mg/dL 0.20-1.00 [facility] Work Phone: Comment on above: For patients on eltr ombopag therapy, use of Dimension [place] TBIL is not recommended. Chloride [Moles/Vol] 102 mmol/L 98-107 [facility] Work Phone: Cholesterol [Mass/Vol] 191 mg/dL <200 [facility] Work Phone: Comment on above: <200 mg/dL Desirable 200-240 mg/dL Borderline >240 mg/dL High Risk Eosinophils/100 WBC (Bld) 5.9 % 0-5 [facility] Work Phone: Glucose [Mass/Vol] 338 mg/dL 74-106 [facility] Work Phone: Comment on above: Glucose result great er than or equal to 200 mg/dLsuggests DIABETES MELLITUS per A.D.A. criteria. Neutrophils (Bld) [#/Vol] 3.6 10*3/uL 2.0-7.7 [facility] Work Phone: Neutrophils/100 WBC (Bld) 55.8 % 47-70 [facility] Work Phone: [phone] Potassium [Moles/Vol] 4.1 mmol/L 3.5-5.1 [facility] Work Phone: Comment on above: Slight Hemolysis, Re sult may be falsely increased. Protein [Mass/Vol] 7.1 g/dL 6.4-8.2 [facility] Work Phone: Sodium [Moles/Vol] 136 mmol/L 136-145 [facility] Work Phone: Triglyceride [Mass/Vol] 562 mg/dL <199 [facility] Work Phone: Comment on above: The drugs N-Acetylcy steine and Metamizole may falsely depress this assay. TRIGLYCERIDE IS GREATER THAN 400 mg/dL. LDL RESULT IS INVALID AND WILL NOT BE REPORTED.Serum Triglycerides Reference Interval Normal <150 mg/dL Borderline high 150 - 199 mg/dL High 200 - 499 mg/dL Very High > or = 500 mg/dL WBC (Bld) [#/Vol] 6.4 10*3/uL 4.4-11.0 [facility] Work Phone: Blood erythrocytes count (nu mber/volume)on 05-03-2022 RBC (Bld) [#/Vol] 4.28 10*6/uL 4.6-6.2 [facility] Work Phone: Blood hemoglobin measurement (mass/volume)on 05-03-2022 Hemoglobin (Bld) [Mass/Vol] 14.6 g/dL 13.0-16.5 [facility] Work Phone: Blood lymphocytes/100 leukoc yteson 05-03-2022 Lymphocytes/100 WBC (Bld) 27.3 % 19-41 [facility] Work Phone: Blood monocytes/100 leukocyt eson 05-03-2022 Monocytes/100 WBC (Bld) 8.4 % 0-10 [facility] Work Phone: Blood platelet mean volumeon 05-03-2022 Platelet mean volume (Bld) [Entitic vol] 10.1 fL 6.2-12.0 [facility] Work Phone: Determination of erythrocyte mean corpuscular volume (MCV)on 05-03-2022 MCV (RBC) [Entitic vol] 96.5 fL 80-94 [facility] Work Phone: Hematocrit Auto (Bld) [Volum e fraction]on 05-03-2022 Hematocrit (Bld) [Volume fraction] 41.3 % 40-54 [facility] Work Phone: Laboratory - Chemistry and C hemistry - challengeon 05-03-2022 ALP [Catalytic activity/Vol] 129 U/L 45-117 [facility] Work Phone: ALT [Catalytic activity/Vol] 77 U/L 16-61 [facility] Work Phone: CO2 [Moles/Vol] 28.0 mmol/L 21.0-32.0 [facility] Work Phone: Free T4 [Mass/Vol] 1.61 ng/dL 0.76-1.46 [facility] Work Phone: Globulin (S) [Mass/Vol] 3.6 g/dL 2.2-4.2 [facility] Work Phone: Urea nitrogen/Creatinine [Mass ratio] 15.9 mg/mg 10-20 [facility] Work Phone: Laboratory - Hematology and Cell countson 05-03-2022 Erythrocyte distribution width (RBC) [Entitic vol] 45.8 fL 35.1-43.9 [facility] Work Phone: Erythrocyte distribution width (RBC) [Ratio] 12.9 % 11.6-14.6 [facility] Work Phone: Immature granulocytes/100 WBC (Bld) 0.600 % 0.0-0.9 [facility] Work Phone: Comment on above: IG% - Immature Granu locytes (promyelocytes, myelocytes and metamyelocytes) > 1% indicates that a LEFT SHIFT is Present. MCH (RBC) [Entitic mass] 34.1 pg 27.0-32.0 [facility] Work Phone: Nucleated RBC/100 WBC (Bld) [Ratio] 0 % 0-5 [facility] Work Phone: MCHC Auto (RBC) [Mass/Vol]on 05-03-2022 MCHC (RBC) [Mass/Vol] 35.4 g/dL 32-36 [facility] Work Phone: No Panel Informationon 05-03 Estimated GFR (MDRD) Amer 83 mL/min >60 [facility] Work Phone: Comment on above: GFR Calc Estimated GFR (MDRD) Non-Af Amer 68 mL/min >60 [facility] Work Phone: Comment on above: Non- GFR Calc Free Triiodothyronine (T3) pg/dL 2.5 pg/mL 2.18-3.98 [facility] Work Phone: Prostate Specific Antigen Screen 0.40 ng/mL 0.00-4.00 [facility] Work Phone: Comment on above: This test was perfor med using the TPSA assay method [facility]. Values obtained with differentassay methods cannot be used interchangably.When changing PSA assays in the course of monitoring apatient, additional sequential testing should be carriedout to confirm baseline values. Thyroid Stimulating Hormone (TSH) 0.21 uIU/mL 0.358-3.74 [facility] Work Phone: Platelets bldon 05-03-2022 Platelets (Bld) [#/Vol] 169 10*3/uL 150-450 [facility] Work Phone: Serum or plasma albumin abbey urement (mass/volume)on 05-03-2022 Albumin [Mass/Vol] 3.5 g/dL 3.2-5.0 [facility] Work Phone: Serum or plasma albumin/glob ulin mass ratioon 05-03-2022 Albumin/Globulin [Mass ratio] 1.0 {ratio} 0.9-2.4 [facility] Work Phone: Serum or plasma calcium abbey urement (mass/volume)on 05-03-2022 Calcium [Mass/Vol] 8.9 mg/dL 8.5-10.1 [facility] Work Phone: Serum or plasma cholesterol in HDL measurement (mass/volume)on 05-03-2022 Cholesterol in HDL [Mass/Vol] 28 mg/dL >40 [facility] Work Phone: Comment on above: The drugs N-Acetylcy steine and Metamizole may falsely depress this assay. Reference Range HDL <40 mg/dL Low HDL Cholesterol HDL >or= 60 mg/dL High HDL Cholesterol Serum or plasma cholesterol in VLDL measurement (mass/volume)on 05-03-2022 Cholesterol in VLDL [Mass/Vol] [facility] Work Phone: Comment on above: Test not performed Serum or plasma creatinine m easurement (mass/volume)on 05-03-2022 Creatinine [Mass/Vol] 1.13 mg/dL 0.70-1.30 [facility] Work Phone: Comment on above: The validity of the calculated GFR & GFRAA in patients over 70 years has not been determined. Clinical correlation is essential. Serum or plasma ferritin chidi surement (mass/volume)on 05-03-2022 Ferritin [Mass/Vol] 174 ng/mL 26-388 [facility] Work Phone: Serum or plasma low density lipoprotein (LDL) cholesterol measurement (mass/volume)on 05-03-2022 Cholesterol in LDL [Mass/Vol] [facility] Work Phone: Comment on above: Test not performed Serum or plasma urea nitroge n measurement (mass/volume)on 05-03-2022 Urea nitrogen [Mass/Vol] 18 mg/dL 7-18 [facility] Work Phone: Thin prep Papanicolaou smear with manual screeningon 05-03-2022 Thin prep Papanicolaou smear with manual screening 40 U/L 15-37 [facility] Work Phone: Comment on above: Slight Hemolysis, Re sult may be falsely increased. Thin prep Papanicolaou smear with manual screening 6 5-15 [facility] Work Phone: Whole blood hemoglobin A1c/t otal hemoglobin ratio (mass fraction)on 05-03-2022 HbA1c (Bld) [Mass fraction] 10.1 % 3.8-5.6 [facility] Work Phone: Comment on above: Normal < 5.7 % Predi abetic 5.7 - 6.4 % Diabetic >or= 6.5 % Please note range changes. Absolute lymphocyte counton 04-03-2022 Lymphocytes Auto (Unsp spec) [#/Vol] 1.84 10*3/uL 0.83-4.51 [facility] Work Phone: Basophil percentageon 2021 Basophils/100 WBC (Bld) 1.5 % 0-1 [facility] Work Phone: Eosinophils/100 WBC (Bld) 4.2 % 0-5 [facility] Work Phone: Neutrophils (Bld) [#/Vol] 4.3 10*3/uL 2.0-7.7 [facility] Work Phone: Neutrophils/100 WBC (Bld) 59.8 % 47-70 [facility] Work Phone: WBC (Bld) [#/Vol] 7.1 10*3/uL 4.4-11.0 [facility] Work Phone: Blood erythrocytes count (nu mber/volume)on 04-03-2022 RBC (Bld) [#/Vol] 4.42 10*6/uL 4.6-6.2 [facility] Work Phone: Blood hemoglobin measurement (mass/volume)on 04-03-2022 Hemoglobin (Bld) [Mass/Vol] 14.6 g/dL 13.0-16.5 [facility] Work Phone: Blood lymphocytes/100 leukoc yteson 04-03-2022 Lymphocytes/100 WBC (Bld) 25.8 % 19-41 [facility] Work Phone: Blood monocytes/100 leukocyt eson 04-03-2022 Monocytes/100 WBC (Bld) 8.3 % 0-10 [facility] Work Phone: Blood platelet mean volumeon 04-03-2022 Platelet mean volume (Bld) [Entitic vol] 9.8 fL 6.2-12.0 [facility] Work Phone: Determination of erythrocyte mean corpuscular volume (MCV)on 04-03-2022 MCV (RBC) [Entitic vol] 94.8 fL 80-94 [facility] Work Phone: Hematocrit Auto (Bld) [Volum e fraction]on 04-03-2022 Hematocrit (Bld) [Volume fraction] 41.9 % 40-54 [facility] Work Phone: Laboratory - Hematology and Cell countson 04-03-2022 Erythrocyte distribution width (RBC) [Entitic vol] 44.9 fL 35.1-43.9 [facility] Work Phone: Erythrocyte distribution width (RBC) [Ratio] 13.0 % 11.6-14.6 [facility] Work Phone: Immature granulocytes/100 WBC (Bld) 0.400 % 0.0-0.9 [facility] Work Phone: Comment on above: IG% - Immature Granu locytes (promyelocytes, myelocytes and metamyelocytes) > 1% indicates that a LEFT SHIFT is Present. MCH (RBC) [Entitic mass] 33.0 pg 27.0-32.0 [facility] Work Phone: Nucleated RBC/100 WBC (Bld) [Ratio] 0 % 0-5 [facility] Work Phone: MCHC Auto (RBC) [Mass/Vol]on 04-03-2022 MCHC (RBC) [Mass/Vol] 34.8 g/dL 32-36 [facility] Work Phone: Platelets bldon 04-03-2022 Platelets (Bld) [#/Vol] 186 10*3/uL 150-450 [facility] Work Phone: Serum or plasma ferritin chidi surement (mass/volume)on 04-03-2022 Ferritin [Mass/Vol] 188 ng/mL 26-388 [facility] Work Phone: Absolute lymphocyte counton 03-04-2022 Lymphocytes Auto (Unsp spec) [#/Vol] 1.96 10*3/uL 0.83-4.51 [facility] Work Phone: Basophil percentageon 2021 Basophils/100 WBC (Bld) 1.3 % 0-1 [facility] Work Phone: Eosinophils/100 WBC (Bld) 3.7 % 0-5 [facility] Work Phone: Neutrophils (Bld) [#/Vol] 4.9 10*3/uL 2.0-7.7 [facility] Work Phone: Neutrophils/100 WBC (Bld) 62.2 % 47-70 [facility] Work Phone: WBC (Bld) [#/Vol] 7.8 10*3/uL 4.4-11.0 [facility] Work Phone: Blood erythrocytes count (nu mber/volume)on 03-04-2022 RBC (Bld) [#/Vol] 4.36 10*6/uL 4.6-6.2 [facility] Work Phone: Blood hemoglobin measurement (mass/volume)on 03-04-2022 Hemoglobin (Bld) [Mass/Vol] 14.7 g/dL 13.0-16.5 [facility] Work Phone: Blood lymphocytes/100 leukoc yteson 03-04-2022 Lymphocytes/100 WBC (Bld) 25.0 % 19-41 [facility] Work Phone: Blood monocytes/100 leukocyt eson 03-04-2022 Monocytes/100 WBC (Bld) 7.4 % 0-10 [facility] Work Phone: Blood platelet mean volumeon 03-04-2022 Platelet mean volume (Bld) [Entitic vol] 10.1 fL 6.2-12.0 [facility] Work Phone: Determination of erythrocyte mean corpuscular volume (MCV)on 03-04-2022 MCV (RBC) [Entitic vol] 96.3 fL 80-94 [facility] Work Phone: Hematocrit Auto (Bld) [Volum e fraction]on 03-04-2022 Hematocrit (Bld) [Volume fraction] 42.0 % 40-54 [facility] Work Phone: Laboratory - Hematology and Cell countson 03-04-2022 Erythrocyte distribution width (RBC) [Entitic vol] 45.2 fL 35.1-43.9 [facility] Work Phone: Erythrocyte distribution width (RBC) [Ratio] 12.8 % 11.6-14.6 [facility] Work Phone: Immature granulocytes/100 WBC (Bld) 0.400 % 0.0-0.9 [facility] Work Phone: Comment on above: IG% - Immature Granu locytes (promyelocytes, myelocytes and metamyelocytes) > 1% indicates that a LEFT SHIFT is Present. MCH (RBC) [Entitic mass] 33.7 pg 27.0-32.0 [facility] Work Phone: Nucleated RBC/100 WBC (Bld) [Ratio] 0 % 0-5 [facility] Work Phone: MCHC Auto (RBC) [Mass/Vol]on 03-04-2022 MCHC (RBC) [Mass/Vol] 35.0 g/dL 32-36 [facility] Work Phone: Platelets bldon 03-04-2022 Platelets (Bld) [#/Vol] 186 10*3/uL 150-450 [facility] Work Phone: Serum or plasma ferritin chidi surement (mass/volume)on 03-04-2022 Ferritin [Mass/Vol] 158 ng/mL 26-388 [facility] Work Phone: Absolute lymphocyte counton 02-04-2022 Lymphocytes Auto (Unsp spec) [#/Vol] 2.06 10*3/uL 0.83-4.51 [facility] Work Phone: Basophil percentageon 2021 Basophils/100 WBC (Bld) 1.5 % 0-1 [facility] Work Phone: Eosinophils/100 WBC (Bld) 3.8 % 0-5 [facility] Work Phone: Neutrophils (Bld) [#/Vol] 5.3 10*3/uL 2.0-7.7 [facility] Work Phone: Neutrophils/100 WBC (Bld) 61.7 % 47-70 [facility] Work Phone: WBC (Bld) [#/Vol] 8.5 10*3/uL 4.4-11.0 [facility] Work Phone: Blood erythrocytes count (nu mber/volume)on 02-04-2022 RBC (Bld) [#/Vol] 4.46 10*6/uL 4.6-6.2 [facility] Work Phone: Blood hemoglobin measurement (mass/volume)on 02-04-2022 Hemoglobin (Bld) [Mass/Vol] 15.0 g/dL 13.0-16.5 [facility] Work Phone: Blood lymphocytes/100 leukoc yteson 02-04-2022 Lymphocytes/100 WBC (Bld) 24.2 % 19-41 [facility] Work Phone: Blood monocytes/100 leukocyt eson 02-04-2022 Monocytes/100 WBC (Bld) 8.2 % 0-10 [facility] Work Phone: Blood platelet mean volumeon 02-04-2022 Platelet mean volume (Bld) [Entitic vol] 9.8 fL 6.2-12.0 [facility] Work Phone: Determination of erythrocyte mean corpuscular volume (MCV)on 02-04-2022 MCV (RBC) [Entitic vol] 95.1 fL 80-94 [facility] Work Phone: Hematocrit Auto (Bld) [Volum e fraction]on 02-04-2022 Hematocrit (Bld) [Volume fraction] 42.4 % 40-54 [facility] Work Phone: Laboratory - Hematology and Cell countson 02-04-2022 Erythrocyte distribution width (RBC) [Entitic vol] 46.1 fL 35.1-43.9 [facility] Work Phone: Erythrocyte distribution width (RBC) [Ratio] 13.2 % 11.6-14.6 [facility] Work Phone: Immature granulocytes/100 WBC (Bld) 0.600 % 0.0-0.9 [facility] Work Phone: Comment on above: IG% - Immature Granu locytes (promyelocytes, myelocytes and metamyelocytes) > 1% indicates that a LEFT SHIFT is Present. MCH (RBC) [Entitic mass] 33.6 pg 27.0-32.0 [facility] Work Phone: Nucleated RBC/100 WBC (Bld) [Ratio] 0 % 0-5 [facility] Work Phone: MCHC Auto (RBC) [Mass/Vol]on 02-04-2022 MCHC (RBC) [Mass/Vol] 35.4 g/dL 32-36 [facility] Work Phone: Platelets bldon 02-04-2022 Platelets (Bld) [#/Vol] 204 10*3/uL 150-450 [facility] Work Phone: Serum or plasma ferritin chidi surement (mass/volume)on 02-04-2022 Ferritin [Mass/Vol] 117 ng/mL 26-388 [facility] Work Phone: Absolute lymphocyte counton 01-07-2022 Lymphocytes Auto (Unsp spec) [#/Vol] 2.05 10*3/uL 0.83-4.51 [facility] Work Phone: Basophil percentageon 2021 Basophils/100 WBC (Bld) 1.1 % 0-1 [facility] Work Phone: Eosinophils/100 WBC (Bld) 3.2 % 0-5 [facility] Work Phone: Neutrophils (Bld) [#/Vol] 6.2 10*3/uL 2.0-7.7 [facility] Work Phone: Neutrophils/100 WBC (Bld) 65.9 % 47-70 [facility] Work Phone: WBC (Bld) [#/Vol] 9.3 10*3/uL 4.4-11.0 [facility] Work Phone: Blood erythrocytes count (nu mber/volume)on 01-07-2022 RBC (Bld) [#/Vol] 4.66 10*6/uL 4.6-6.2 [facility] Work Phone: Blood hemoglobin measurement (mass/volume)on 01-07-2022 Hemoglobin (Bld) [Mass/Vol] 15.4 g/dL 13.0-16.5 [facility] Work Phone: Blood lymphocytes/100 leukoc yteson 01-07-2022 Lymphocytes/100 WBC (Bld) 22.0 % 19-41 [facility] Work Phone: Blood monocytes/100 leukocyt eson 01-07-2022 Monocytes/100 WBC (Bld) 7.5 % 0-10 [facility] Work Phone: Blood platelet mean volumeon 01-07-2022 Platelet mean volume (Bld) [Entitic vol] 10.0 fL 6.2-12.0 [facility] Work Phone: Determination of erythrocyte mean corpuscular volume (MCV)on 01-07-2022 MCV (RBC) [Entitic vol] 94.4 fL 80-94 [facility] Work Phone: Hematocrit Auto (Bld) [Volum e fraction]on 01-07-2022 Hematocrit (Bld) [Volume fraction] 44.0 % 40-54 [facility] Work Phone: Laboratory - Hematology and Cell countson 01-07-2022 Erythrocyte distribution width (RBC) [Entitic vol] 45.1 fL 35.1-43.9 [facility] Work Phone: Erythrocyte distribution width (RBC) [Ratio] 13.0 % 11.6-14.6 [facility] Work Phone: Immature granulocytes/100 WBC (Bld) 0.300 % 0.0-0.9 [facility] Work Phone: Comment on above: IG% - Immature Granu locytes (promyelocytes, myelocytes and metamyelocytes) > 1% indicates that a LEFT SHIFT is Present. MCH (RBC) [Entitic mass] 33.0 pg 27.0-32.0 [facility] Work Phone: Nucleated RBC/100 WBC (Bld) [Ratio] 0 % 0-5 [facility] Work Phone: MCHC Auto (RBC) [Mass/Vol]on 01-07-2022 MCHC (RBC) [Mass/Vol] 35.0 g/dL 32-36 [facility] Work Phone: Platelets bldon 01-07-2022 Platelets (Bld) [#/Vol] 204 10*3/uL 150-450 [facility] Work Phone: Serum or plasma ferritin chidi surement (mass/volume)on 01-07-2022 Ferritin [Mass/Vol] 188 ng/mL 26-388 [facility] Work Phone: Laboratory - Hematology and Cell countson 12-27-2021 HbA1c (Bld) [Mass fraction] 8.5 % [facility] Work Phone: Absolute lymphocyte counton 11-12-2021 Lymphocytes Auto (Unsp spec) [#/Vol] 2.18 10*3/uL 0.83-4.51 [facility] Work Phone: Basophil percentageon 2021 Basophils/100 WBC (Bld) 0.8 % 0-1 [facility] Work Phone: Eosinophils/100 WBC (Bld) 6.1 % 0-5 [facility] Work Phone: Neutrophils (Bld) [#/Vol] 5.3 10*3/uL 2.0-7.7 [facility] Work Phone: Neutrophils/100 WBC (Bld) 59.7 % 47-70 [facility] Work Phone: WBC (Bld) [#/Vol] 8.9 10*3/uL 4.4-11.0 [facility] Work Phone: Blood erythrocytes count (nu mber/volume)on 11-12-2021 RBC (Bld) [#/Vol] 4.31 10*6/uL 4.6-6.2 [facility] Work Phone: Blood hemoglobin measurement (mass/volume)on 11-12-2021 Hemoglobin (Bld) [Mass/Vol] 14.0 g/dL 13.0-16.5 [facility] Work Phone: Blood lymphocytes/100 leukoc yteson 11-12-2021 Lymphocytes/100 WBC (Bld) 24.5 % 19-41 [facility] Work Phone: Blood monocytes/100 leukocyt eson 11-12-2021 Monocytes/100 WBC (Bld) 8.3 % 0-10 [facility] Work Phone: Blood platelet mean volumeon 11-12-2021 Platelet mean volume (Bld) [Entitic vol] 10.4 fL 6.2-12.0 [facility] Work Phone: Determination of erythrocyte mean corpuscular volume (MCV)on 11-12-2021 MCV (RBC) [Entitic vol] 95.4 fL 80-94 [facility] Work Phone: Hematocrit Auto (Bld) [Volum e fraction]on 11-12-2021 Hematocrit (Bld) [Volume fraction] 41.1 % 40-54 [facility] Work Phone: Laboratory - Hematology and Cell countson 11-12-2021 Erythrocyte distribution width (RBC) [Entitic vol] 47.8 fL 35.1-43.9 [facility] Work Phone: Erythrocyte distribution width (RBC) [Ratio] 13.7 % 11.6-14.6 [facility] Work Phone: Immature granulocytes/100 WBC (Bld) 0.600 % 0.0-0.9 [facility] Work Phone: Comment on above: IG% - Immature Granu locytes (promyelocytes, myelocytes and metamyelocytes) > 1% indicates that a LEFT SHIFT is Present. MCH (RBC) [Entitic mass] 32.5 pg 27.0-32.0 [facility] Work Phone: Nucleated RBC/100 WBC (Bld) [Ratio] 0 % 0-5 [facility] Work Phone: MCHC Auto (RBC) [Mass/Vol]on 11-12-2021 MCHC (RBC) [Mass/Vol] 34.1 g/dL 32-36 [facility] Work Phone: Platelets bldon 11-12-2021 Platelets (Bld) [#/Vol] 200 10*3/uL 150-450 [facility] Work Phone: Serum or plasma ferritin chidi surement (mass/volume)on 11-12-2021 Ferritin [Mass/Vol] 169 ng/mL 26-388 [facility] Work Phone: Absolute lymphocyte counton 10-15-2021 Lymphocytes Auto (Unsp spec) [#/Vol] 1.86 10*3/uL 0.83-4.51 [facility] Work Phone: Basophil percentageon 2021 Basophils/100 WBC (Bld) 1.0 % 0-1 [facility] Work Phone: Bilirubin [Mass/Vol] 0.80 mg/dL 0.20-1.00 [facility] Work Phone: Comment on above: For patients on eltr ombopag therapy, use of Dimension [place] TBIL is not recommended. Chloride [Moles/Vol] 101 mmol/L 98-107 [facility] Work Phone: Eosinophils/100 WBC (Bld) 2.9 % 0-5 [facility] Work Phone: Glucose [Mass/Vol] 199 mg/dL 74-106 [facility] Work Phone: Comment on above: Fasting Glucose resu lt greater than or equal to 126 mg/dL suggests DIABETES MELLITUS per A.D.A. criteria. Neutrophils (Bld) [#/Vol] 6.9 10*3/uL 2.0-7.7 [facility] Work Phone: Neutrophils/100 WBC (Bld) 69.1 % 47-70 [facility] Work Phone: Potassium [Moles/Vol] 4.0 mmol/L 3.5-5.1 [facility] Work Phone: [phone] Protein [Mass/Vol] 7.5 g/dL 6.4-8.2 [facility] Work Phone: Sodium [Moles/Vol] 137 mmol/L 136-145 [facility] Work Phone: WBC (Bld) [#/Vol] 10.0 10*3/uL 4.4-11.0 [facility] Work Phone: Blood erythrocytes count (nu mber/volume)on 10-15-2021 RBC (Bld) [#/Vol] 4.41 10*6/uL 4.6-6.2 [facility] Work Phone: Blood hemoglobin measurement (mass/volume)on 10-15-2021 Hemoglobin (Bld) [Mass/Vol] 14.5 g/dL 13.0-16.5 [facility] Work Phone: Blood lymphocytes/100 leukoc yteson 10-15-2021 Lymphocytes/100 WBC (Bld) 18.6 % 19-41 [facility] Work Phone: Blood monocytes/100 leukocyt eson 10-15-2021 Monocytes/100 WBC (Bld) 8.2 % 0-10 [facility] Work Phone: Blood platelet mean volumeon 10-15-2021 Platelet mean volume (Bld) [Entitic vol] 9.9 fL 6.2-12.0 [facility] Work Phone: Determination of erythrocyte mean corpuscular volume (MCV)on 10-15-2021 MCV (RBC) [Entitic vol] 94.3 fL 80-94 [facility] Work Phone: Direct bilirubinon 2 Bilirubin.direct [Mass/Vol] 0.21 mg/dL 0.00-0.30 [facility] Work Phone: Hematocrit Auto (Bld) [Volum e fraction]on 10-15-2021 Hematocrit (Bld) [Volume fraction] 41.6 % 40-54 [facility] Work Phone: Laboratory - Chemistry and C hemistry - challengeon 10-15-2021 ALP [Catalytic activity/Vol] 84 U/L 45-117 [facility] Work Phone: ALT [Catalytic activity/Vol] 76 U/L 16-61 [facility] Work Phone: CO2 [Moles/Vol] 26.0 mmol/L 21.0-32.0 [facility] Work Phone: Free T4 [Mass/Vol] 1.47 ng/dL 0.76-1.46 [facility] Work Phone: Globulin (S) [Mass/Vol] 4.0 g/dL 2.2-4.2 [facility] Work Phone: Urea nitrogen/Creatinine [Mass ratio] 19.2 mg/mg 10-20 [facility] Work Phone: Laboratory - Hematology and Cell countson 10-15-2021 Erythrocyte distribution width (RBC) [Entitic vol] 46.0 fL 35.1-43.9 [facility] Work Phone: Erythrocyte distribution width (RBC) [Ratio] 13.5 % 11.6-14.6 [facility] Work Phone: Immature granulocytes/100 WBC (Bld) 0.200 % 0.0-0.9 [facility] Work Phone: Comment on above: IG% - Immature Granu locytes (promyelocytes, myelocytes and metamyelocytes) > 1% indicates that a LEFT SHIFT is Present. MCH (RBC) [Entitic mass] 32.9 pg 27.0-32.0 [facility] Work Phone: Nucleated RBC/100 WBC (Bld) [Ratio] 0 % 0-5 [facility] Work Phone: MCHC Auto (RBC) [Mass/Vol]on 10-15-2021 MCHC (RBC) [Mass/Vol] 34.9 g/dL 32-36 [facility] Work Phone: No Panel Informationon 10-15 Estimated GFR (MDRD) Amer 74 mL/min >60 [facility] Work Phone: Comment on above: GFR Calc Estimated GFR (MDRD) Non-Af Amer 61 mL/min >60 [facility] Work Phone: Comment on above: Non- GFR Calc Free Triiodothyronine (T3) pg/dL 2.3 pg/mL 2.18-3.98 [facility] Work Phone: Thyroid Stimulating Hormone (TSH) 0.30 uIU/mL 0.358-3.74 [facility] Work Phone: Vitamin D 25-Hydroxy 30.7 ng/mL [facility] Work Phone: Comment on above: Vitamin D 25(OH) Sta tus Range Deficiency <20 ng/mL (50nmol/L) Insufficiency 20 - 30 ng/mL (50 - 75 nmol/L) Sufficiency 30 - 100 ng/mL (75 - 250 nmol/L) Toxicity >100 ng/mL (>250 nmol/L) Platelets bldon 10-15-2021 Platelets (Bld) [#/Vol] 228 10*3/uL 150-450 [facility] Work Phone: Serum or plasma albumin abbey urement (mass/volume)on 10-15-2021 Albumin [Mass/Vol] 3.5 g/dL 3.2-5.0 [facility] Work Phone: Serum or plasma albumin/glob ulin mass ratioon 10-15-2021 Albumin/Globulin [Mass ratio] 0.9 {ratio} 0.9-2.4 [facility] Work Phone: Serum or plasma calcium abbey urement (mass/volume)on 10-15-2021 Calcium [Mass/Vol] 9.5 mg/dL 8.5-10.1 [facility] Work Phone: Serum or plasma creatinine m easurement (mass/volume)on 10-15-2021 Creatinine [Mass/Vol] 1.25 mg/dL 0.70-1.30 [facility] Work Phone: Comment on above: The validity of the calculated GFR & GFRAA in patients over 70 years has not been determined. Clinical correlation is essential. Serum or plasma ferritin chidi surement (mass/volume)on 10-15-2021 Ferritin [Mass/Vol] 161 ng/mL 26-388 [facility] Work Phone: Serum or plasma urea nitroge n measurement (mass/volume)on 10-15-2021 Urea nitrogen [Mass/Vol] 24 mg/dL 7-18 [facility] Work Phone: Thin prep Papanicolaou smear with manual screeningon 10-15-2021 Thin prep Papanicolaou smear with manual screening 50 U/L 15-37 [facility] Work Phone: Thin prep Papanicolaou smear with manual screening 10 5-15 [facility] Work Phone: COVID-19 virus antigen assay SARS-CoV-2 (COVID-19) Ag IA.rapid Ql (Resp) [facility] Work Phone: Clostridium difficile detect ion by polymerase chain reaction C. difficile DNA KRISTOPHER+probe Ql (Unsp spec) [facility] Work Phone: Influenza virus A and B and SARS-CoV-2 (COVID-19) Ag panel - Upper respiratory specim SARS-CoV-2 (COVID-19) RNA KRISTOPHER+probe Ql (Resp) [facility] Work Phone: Laboratory - Microbiology an d Antimicrobial susceptibility Bacteria identified Cx Nom (Bld) No growth in 5 days. [facility] Work Phone: No Panel Information SARS-CoV-2 & FLU Antigen (Rapid) [facility] Work Phone: [facility] Vital Signs Date Time Vital Sign Value Performing Clinician Facility 05-16-2025 14:29-0400 Body height 172.[address] Mohinder Quick MD Work Phone: [facility] 05-16-2025 14:29-0400 Body mass index (BMI) [Ratio] 40.8 kg/m2 Dr. Mohinder Quick MD Work Phone: [facility] 05-16-2025 14:29-0400 Body temperature 98 [degF] Dr. Mohinder Quick MD Work Phone: [facility] 05-16-2025 14:29-0400 Body weight 122.[address] Mohinder Quick MD Work Phone: [facility] 05-16-2025 14:29-0400 Diastolic blood pressure 79 mm[Hg] Dr. Mohinder Quick MD Work Phone: [facility] 05-16-2025 14:29-0400 Heart rate 86 /min Dr. Mohinder Quick MD Work Phone: [facility] 05-16-2025 14:29-0400 Respiratory rate 16 /min Dr. Mohinder Quick MD Work Phone: [facility] 05-16-2025 14:29-0400 SaO2% (BldA) [Mass fraction] 94 % Dr. Mohinder Quick MD Work Phone: [facility] 05-16-2025 14:29-0400 Systolic blood pressure 117 mm[Hg] Dr. Mohinder Quick MD Work Phone: [facility] 04-20-2025 08:48-0400 Body height 169 cm [facility] [employer] Work Phone: [facility] 04-20-2025 08:48-0400 Body mass index (BMI) [Ratio] 43.68 kg/m2 Moses Intervolvei DO Work Phone: [facility] 04-20-2025 08:48-0400 Body temperature 98.29 [degF] Moses Intervolvei DO Work Phone: [facility] 04-20-2025 08:48-0400 Body weight 124.74 kg Moses Intervolvei DO Work Phone: [facility] 04-20-2025 08:48-0400 Diastolic blood pressure 81 mm[Hg] Moses Intervolvei DO Work Phone: [facility] 04-20-2025 08:48-0400 Heart rate 71 /min Moses Intervolvei DO Work Phone: [facility] 04-20-2025 08:48-0400 SaO2% (BldA) [Mass fraction] 95 % Moses Intervolvei DO Work Phone: [facility] 04-20-2025 08:48-0400 Systolic blood pressure 150 mm[Hg] Moses Intervolvei DO Work Phone: [facility] 02-01-2025 09:09-0400 Body height 170.2 cm Goyo Cheng MD Work Phone: [facility] 02-01-2025 09:09-0400 Body mass index (BMI) [Ratio] 41.82 kg/m2 Goyo Cheng MD Work Phone: [facility] 02-01-2025 09:09-0400 Body weight 121.11 kg Goyo Cheng MD Work Phone: [facility] 02-01-2025 09:09-0400 Respiratory rate 20 /min Goyo Cheng MD Work Phone: [facility] 01-19-2025 08:07-0400 Body mass index (BMI) [Ratio] 41 kg/m2 Dr. Mohinder Quick MD Work Phone: [facility] 01-19-2025 08:07-0400 Body temperature 97.2 [degF] Dr. Mohinder Quick MD Work Phone: [facility] 01-19-2025 08:07-0400 Body weight 122.[address] Mohinder Quick MD Work Phone: [facility] 01-19-2025 08:07-0400 Diastolic blood pressure 82 mm[Hg] Dr. Mohinder Quick MD Work Phone: [facility] 01-19-2025 08:07-0400 Heart rate 67 /min Dr. Mohinder Quick MD Work Phone: [facility] 01-19-2025 08:07-0400 Respiratory rate 18 /min Dr. Mohinder Quick MD Work Phone: [facility] 01-19-2025 08:07-0400 SaO2% (BldA) [Mass fraction] 93 % Dr. Mohinder Quick MD Work Phone: [facility] 01-19-2025 08:07-0400 Systolic blood pressure 146 mm[Hg] Dr. Mohinder Quick MD Work Phone: [facility] 12-13-2024 14:36-0400 Body height 172.[address] Mohinder Quick MD Work Phone: [facility] 12-13-2024 14:36-0400 Body mass index (BMI) [Ratio] 40.7 kg/m2 Dr. Mohinder Quick MD Work Phone: [facility] 12-13-2024 14:36-0400 Body temperature 98 [degF] Dr. Mohinder Quick MD Work Phone: [facility] 12-13-2024 14:36-0400 Body weight 121.[address] Mohinder Quick MD Work Phone: [facility] 12-13-2024 14:36-0400 Diastolic blood pressure 77 mm[Hg] Dr. Mhoinder Quick MD Work Phone: [facility] 12-13-2024 14:36-0400 Heart rate 67 /min Dr. Mohinder Quick MD Work Phone: [facility] 12-13-2024 14:36-0400 Respiratory rate 16 /min Dr. Mohinder Quick MD Work Phone: [facility] 12-13-2024 14:36-0400 SaO2% (BldA) [Mass fraction] 95 % Dr. Mohinder Quick MD Work Phone: [facility] 12-13-2024 14:36-0400 Systolic blood pressure 151 mm[Hg] Dr. Mohinder Quick MD Work Phone: [facility] 11-09-2024 12:57-0500 Body mass index (BMI) [Ratio] 40.6 kg/m2 Dr. Mohinder Quick MD Work Phone: [facility] 11-09-2024 12:57-0500 Body weight 121.[address] Mohinder Quick MD Work Phone: [facility] 11-09-2024 12:57-0500 Diastolic blood pressure 80 mm[Hg] Dr. Mohinder Quick MD Work Phone: [facility] 11-09-2024 12:57-0500 Heart rate 78 /min Dr. Mohinder Quick MD Work Phone: [facility] 11-09-2024 12:57-0500 Respiratory rate 16 /min Dr. Mohinder Quick MD Work Phone: [facility] 11-09-2024 12:57-0500 Systolic blood pressure 132 mm[Hg] Dr. Mohinder Quick MD Work Phone: [facility] 11-02-2024 14:23-0500 Body height 170.2 cm Linsey Garber MD Work Phone: [facility] 11-02-2024 14:23-0500 Body mass index (BMI) [Ratio] 41.85 kg/m2 Linsey Garber MD Work Phone: [facility] 11-02-2024 14:23-0500 Body temperature 97.2 [degF] Linsey Garber MD Work Phone: [facility] 11-02-2024 14:23-0500 Body weight 121.2 kg Linsey Garber MD Work Phone: [facility] 11-02-2024 14:23-0500 Diastolic blood pressure 67 mm[Hg] Linsey Garber MD Work Phone: [facility] 11-02-2024 14:23-0500 Heart rate 65 /min Linsey Garber MD Work Phone: [facility] 11-02-2024 14:23-0500 Respiratory rate 20 /min Linsey Garber MD Work Phone: [facility] 11-02-2024 14:23-0500 SaO2% (BldA) [Mass fraction] 96 % Linsey Garber MD Work Phone: [facility] 11-02-2024 14:23-0500 Systolic blood pressure 116 mm[Hg] Linsey Garber MD Work Phone: [facility] 08-23-2024 14:31-0500 Body mass index (BMI) [Ratio] 41.1 kg/m2 Dr. Mohinder Quick MD Work Phone: [facility] 08-23-2024 14:31-0500 Body temperature 97.8 [degF] Dr. Mohinder Quick MD Work Phone: [facility] 08-23-2024 14:31-0500 Body weight 122.[address] Mohinder Quick MD Work Phone: [facility] 08-23-2024 14:31-0500 Diastolic blood pressure 78 mm[Hg] Dr. Mohinder Quick MD Work Phone: [facility] 08-23-2024 14:31-0500 Heart rate 86 /min Dr. Mohinder Quick MD Work Phone: [facility] 08-23-2024 14:31-0500 Respiratory rate 16 /min Dr. Mohinder Quick MD Work Phone: [facility] 08-23-2024 14:31-0500 SaO2% (BldA) [Mass fraction] 93 % Dr. Mohinder Quick MD Work Phone: [facility] 08-23-2024 14:31-0500 Systolic blood pressure 134 mm[Hg] Dr. Mohinder Quick MD Work Phone: [facility] 07-02-2024 10:37-0400 Body height 170.2 cm Linsey Garber MD Work Phone: [facility] 07-02-2024 10:37-0400 Body mass index (BMI) [Ratio] 41.87 kg/m2 Linsey Garber MD Work Phone: [facility] [facility] 07-[facility]-2024 10:37-0400 Body temperature 97.81 [degF] Linsey Garber MD Work Phone: [facility] 07-02-2024 10:37-0400 Body weight 121.25 kg Linsey Garber MD Work Phone: [facility] 07-02-2024 10:37-0400 Diastolic blood pressure 74 mm[Hg] Linsey Garber MD Work Phone: [facility] 07-02-2024 10:37-0400 Heart rate 70 /min Linsey Garber MD Work Phone: [facility] 07-02-2024 10:37-0400 Respiratory rate 18 /min Linsey Garber MD Work Phone: [facility] 07-02-2024 10:37-0400 SaO2% (BldA) [Mass fraction] 96 % Linsey Garber MD Work Phone: [facility] 07-02-2024 10:37-0400 Systolic blood pressure 124 mm[Hg] Linsey Garber MD Work Phone: [facility] 05-18-2024 10:18-0400 Body height 170.2 cm Goyo Cheng MD Work Phone: [facility] 05-18-2024 10:18-0400 Body mass index (BMI) [Ratio] 41.97 kg/m2 Goyo Cheng MD Work Phone: [facility] 05-18-2024 10:18-0400 Body weight 121.56 kg Goyo Cheng MD Work Phone: [facility] 05-18-2024 10:18-0400 Respiratory rate 20 /min Goyo Cheng MD Work Phone: [facility] 03-02-2024 10:20-0400 Body height 171 cm Moses Jordan DO Work Phone: [facility] 03-02-2024 10:20-0400 Body mass index (BMI) [Ratio] 41.57 kg/m2 Moses Jordan DO Work Phone: [facility] 03-02-2024 10:20-0400 Body temperature 97.2 [degF] Moses Jordan DO Work Phone: [facility] 03-02-2024 10:20-0400 Body weight 121.56 kg Moses Tejadai DO Work Phone: [facility] 03-02-2024 10:20-0400 Diastolic blood pressure 82 mm[Hg] Moses Masci DO Work Phone: [facility] 03-02-2024 10:20-0400 Heart rate 79 /min Moses Masci DO Work Phone: [facility] 03-02-2024 10:20-0400 SaO2% (BldA) [Mass fraction] 97 % Moses Terrelli DO Work Phone: [facility] 03-02-2024 10:20-0400 Systolic blood pressure 142 mm[Hg] Moses Terrelli DO Work Phone: [facility] 12-03-2023 10:31-0500 Body height 170.2 cm Linsey Garber MD Work Phone: [facility] 12-03-2023 10:31-0500 Body temperature 96.8 [degF] Linsey Garber MD Work Phone: [facility] 12-03-2023 10:31-0500 Body weight 116.98 kg Linsey Garber MD Work Phone: [facility] 12-03-2023 10:31-0500 Diastolic blood pressure 73 mm[Hg] Linsey Garber MD Work Phone: [facility] 12-03-2023 10:31-0500 Heart rate 73 /min Linsey Garber MD Work Phone: [facility] 12-03-2023 10:31-0500 Respiratory rate 18 /min Linsey Garber MD Work Phone: [facility] 12-03-2023 10:31-0500 SaO2% (BldA) [Mass fraction] 96 % Linsey Garber MD Work Phone: [facility] 12-03-2023 10:31-0500 Systolic blood pressure 118 mm[Hg] Linsey Garber MD Work Phone: [facility] 11-18-2023 10:44-0500 Body height 170.2 cm Goyo Cheng MD Work Phone: [facility] 11-18-2023 10:44-0500 Body weight 114.31 kg Goyo Cheng MD Work Phone: [facility] 11-18-2023 10:44-0500 Respiratory rate 18 /min Goyo Cheng MD Work Phone: [facility] 08-12-2023 13:23-0500 Body height 170.2 cm Goyo Cheng MD Work Phone: [facility] 08-12-2023 13:23-0500 Body weight 116.12 kg Goyo Cheng MD Work Phone: [facility] 08-12-2023 13:23-0500 Respiratory rate 18 /min Goyo Cheng MD Work Phone: [facility] 07-23-2023 13:28-0400 Body height 172.[address] Mohinder Quick Work Phone: [facility] 07-23-2023 13:28-0400 Body mass index (BMI) [Ratio] 39.2 kg/m2 Dr. Mohinder Quick Work Phone: [facility] 07-23-2023 13:28-0400 Body temperature 98.1 [degF] Dr. Mohinder Quick Work Phone: [facility] 07-23-2023 13:28-0400 Body weight 117.[address] Mohinder Quick Work Phone: [facility] 07-23-2023 13:28-0400 Diastolic blood pressure 65 mm[Hg] Dr. Mohinder Quick Work Phone: [facility] 07-23-2023 13:28-0400 Heart rate 76 /min Dr. Mohinder Quick Work Phone: [facility] 07-23-2023 13:28-0400 Respiratory rate 16 /min Dr. Mohinder Quick Work Phone: [facility] 07-23-2023 13:28-0400 SaO2% (BldA) [Mass fraction] 93 % Dr. Mohinder Quick Work Phone: [facility] 07-23-2023 13:28-0400 Systolic blood pressure 105 mm[Hg] Dr. Mohinder Quick Work Phone: [facility] 05-14-2023 14:03-0400 Body mass index (BMI) [Ratio] 38.5 kg/m2 Dr. Mohinder Quick Work Phone: [facility] 05-14-2023 14:03-0400 Body temperature 98.2 [degF] Dr. Mohinder Quick Work Phone: [facility] 05-14-2023 14:03-0400 Body weight 114.[address] Mohinder Quick Work Phone: [facility] 05-14-2023 14:03-0400 Diastolic blood pressure 78 mm[Hg] Dr. Mohinder Quick Work Phone: [facility] 05-14-2023 14:03-0400 Heart rate 80 /min Dr. Mohinder Quick Work Phone: [facility] 05-14-2023 14:03-0400 Respiratory rate 16 /min Dr. Mohinder Quick Work Phone: [facility] 05-14-2023 14:03-0400 SaO2% (BldA) [Mass fraction] 94 % Dr. Mohinder Quick Work Phone: [facility] 05-14-2023 14:03-0400 Systolic blood pressure 135 mm[Hg] Dr. Mohinder Quick Work Phone: [facility] 05-13-2023 13:04-0400 Body height 170.2 cm Goyo Cheng MD Work Phone: [facility] 05-13-2023 13:04-0400 Body weight 114.13 kg Goyo Cheng MD Work Phone: [facility] 05-13-2023 13:04-0400 Respiratory rate 20 /min Goyo Cheng MD Work Phone: [facility] 04-29-2023 [id number] Body height 170.2 cm Linsey Garber MD Work Phone: [facility] 04-29-2023 [id number] Body temperature 98.01 [degF] Linsey Garber MD Work Phone: [facility] 04-29-2023 13:0400 Body weight 113.58 kg Linsey Garber MD Work Phone: [facility] 04-29-2023 13:26-0400 Diastolic blood pressure 63 mm[Hg] Linsey Garber MD Work Phone: [facility] 04-29-2023 13:26-0400 Heart rate 74 /min Linsey Garber MD Work Phone: [facility] 04-29-2023 [id number] Respiratory rate 16 /min Linsey Garber MD Work Phone: [facility] 04-29-2023 13:26-0400 SaO2% (BldA) [Mass fraction] 97 % Linsey Garber MD Work Phone: [facility] 04-29-2023 13:26-0400 Systolic blood pressure 108 mm[Hg] Linsey Garber MD Work Phone: [facility] 03-13-2023 12:11-0400 Body mass index (BMI) [Ratio] 34.9 kg/m2 Dr. Mohinder Quick Work Phone: [facility] 03-13-2023 12:11-0400 Body temperature 97.1 [degF] Dr. Mohinder Quick Work Phone: [facility] 03-13-2023 12:11-0400 Diastolic blood pressure 68 mm[Hg] Dr. Mohinder Quick Work Phone: [facility] 03-13-2023 12:11-0400 Heart rate 69 /min Dr. Mohinder Quick Work Phone: [facility] 03-13-2023 12:11-0400 Systolic blood pressure 110 mm[Hg] Dr. Mohinder Quick Work Phone: [facility] 02-27-2023 10:53-0400 Respiratory rate 16 /min Dr. Mohinder Quick Work Phone: [facility] 02-27-2023 00:11-0400 Body weight 104.[address] Mohinder Quick Work Phone: [facility] 02-20-2023 11:05-0400 Body height 172.[address] Mohinder Quick Work Phone: [facility] 02-20-2023 11:05-0400 Body mass index (BMI) [Ratio] 36.8 kg/m2 Dr. Mohinder Quick Work Phone: [facility] 02-20-2023 11:05-0400 Body weight 109.[address] Mohinder Quick Work Phone: [facility] 02-20-2023 11:05-0400 Diastolic blood pressure 78 mm[Hg] Dr. Mohinder Quick Work Phone: [facility] 02-20-2023 11:05-0400 Heart rate 76 /min Dr. Mohinder Quick Work Phone: [facility] 02-20-2023 11:05-0400 Respiratory rate 16 /min Dr. Mohinder Quick Work Phone: [facility] 02-20-2023 11:05-0400 Systolic blood pressure 123 mm[Hg] Dr. Mohinder Quick Work Phone: [facility] 02-20-2023 08:54-0400 Body mass index (BMI) [Ratio] 34.9 kg/m2 Dr. Mohinder Quick Work Phone: [facility] 02-20-2023 08:54-0400 Body temperature 97.4 [degF] Dr. Mohinder Quick Work Phone: [facility] 02-20-2023 08:54-0400 Diastolic blood pressure 50 mm[Hg] Dr. Mohinder Quick Work Phone: [facility] 02-20-2023 08:54-0400 Heart rate 74 /min Dr. Mohinder Quick Work Phone: [facility] 02-20-2023 08:54-0400 Respiratory rate 18 /min Dr. Mohinder Quick Work Phone: [facility] 02-20-2023 08:54-0400 Systolic blood pressure 122 mm[Hg] Dr. Mohinder Quick Work Phone: [facility] 02-03-2023 11:09-0400 Body height 172.[address] Mohinder Quick Work Phone: [facility] 02-03-2023 11:09-0400 Body mass index (BMI) [Ratio] 36.7 kg/m2 Dr. Mohinder Quick Work Phone: [facility] 02-03-2023 11:09-0400 Body temperature 98.6 [degF] Dr. Mohinder Quick Work Phone: [facility] 02-03-2023 11:09-0400 Body weight 109.[address] Mohinder Quick Work Phone: [facility] 02-03-2023 11:09-0400 Diastolic blood pressure 74 mm[Hg] Dr. Mohinder Quick Work Phone: [facility] 02-03-2023 11:09-0400 Heart rate 96 /min Dr. Mohinder Quick Work Phone: [facility] 02-03-2023 11:09-0400 Respiratory rate 18 /min Dr. Mohinder Quick Work Phone: [facility] 02-03-2023 11:09-0400 SaO2% (BldA) [Mass fraction] 96 % Dr. Mohinder Quick Work Phone: [facility] 02-03-2023 11:09-0400 Systolic blood pressure 119 mm[Hg] Dr. Mohinder Quick Work Phone: [facility] 01-31-2023 13:20-0400 Body mass index (BMI) [Ratio] 34.9 kg/m2 Dr. Mohinder Quick Work Phone: [facility] 01-31-2023 13:20-0400 Body temperature 97.6 [degF] Dr. Mohinder Quick Work Phone: [facility] 01-31-2023 13:20-0400 Diastolic blood pressure 68 mm[Hg] Dr. Mohinder Quick Work Phone: [facility] 01-31-2023 13:20-0400 Heart rate 70 /min Dr. Mohinder Quick Work Phone: [facility] 01-31-2023 13:20-0400 Respiratory rate 18 /min Dr. Mohinder Quick Work Phone: [facility] 01-31-2023 13:20-0400 Systolic blood pressure 148 mm[Hg] Dr. Mohinder Quick Work Phone: [facility] 01-30-2023 09:28-0400 Body weight 104.[address] Mohinder Quick Work Phone: [facility] 01-21-2023 13:45-0400 Body height 170.2 cm Linsey Garber MD Work Phone: [facility] 01-21-2023 13:45-0400 Body temperature 97.9 [degF] Linsey Garber MD Work Phone: [facility] 01-21-2023 13:45-0400 Body weight 108.73 kg Linsey Garber MD Work Phone: [facility] 01-21-2023 13:45-0400 Diastolic blood pressure 70 mm[Hg] Linsey Garber MD Work Phone: [facility] 01-21-2023 13:45-0400 Heart rate 69 /min Linsey Garber MD Work Phone: [facility] 01-21-2023 13:45-0400 Respiratory rate 18 /min Linsey Garber MD Work Phone: [facility] 01-21-2023 13:45-0400 SaO2% (BldA) [Mass fraction] 96 % Linsey Garber MD Work Phone: [facility] 01-21-2023 13:45-0400 Systolic blood pressure 127 mm[Hg] Linsye Garber MD Work Phone: [facility] 12-31-2022 13:09-0400 Body height 170.2 cm Goyo Cheng MD Work Phone: [facility] 12-31-2022 13:09-0400 Body weight 102.06 kg Goyo Cheng MD Work Phone: [facility] 12-31-2022 13:09-0400 Respiratory rate 18 /min Goyo Cheng MD Work Phone: [facility] 12-10-2022 14:00-0400 Body height 170.2 cm Goyo Cheng MD Work Phone: [facility] 12-10-2022 14:00-0400 Body weight 99.79 kg Goyo Cheng MD Work Phone: [facility] 12-10-2022 14:00-0400 Respiratory rate 18 /min Goyo Cheng MD Work Phone: [facility] 12-04-2022 13:08-0500 Body height 170.2 cm Linsey Garber MD Work Phone: [facility] 12-04-2022 13:08-0500 Body temperature 97.7 [degF] Linsey Garber MD Work Phone: [facility] 12-04-2022 13:08-0500 Body weight 101.7 kg Linsey Garber MD Work Phone: [facility] 12-04-2022 13:08-0500 Diastolic blood pressure 65 mm[Hg] Linsey Garber MD Work Phone: [facility] 12-04-2022 13:08-0500 Heart rate 63 /min Linsey Garber MD Work Phone: [facility] 12-04-2022 13:08-0500 Respiratory rate 18 /min Linsey Garber MD Work Phone: [facility] 12-04-2022 13:08-0500 SaO2% (BldA) [Mass fraction] 98 % Linsey Garber MD Work Phone: [facility] 12-04-2022 13:08-0500 Systolic blood pressure 129 mm[Hg] Linsey Garber MD Work Phone: [facility] 11-19-2022 14:21-0500 Body height 172.7 cm Pst 1 [facility] 11-19-2022 14:21-0500 Body temperature 97.81 [degF] Pst 1 [facility] 11-19-2022 14:21-0500 Body weight 96.16 kg Pst 1 [facility] 11-19-2022 14:21-0500 Diastolic blood pressure 53 mm[Hg] Pst 1 [facility] 11-19-2022 14:21-0500 Heart rate 74 /min Pst 1 [facility] 11-19-2022 14:21-0500 Respiratory rate 16 /min Pst 1 [facility] 11-19-2022 14:21-0500 SaO2% (BldA) [Mass fraction] 99 % Pst 1 [facility] 11-19-2022 14:21-0500 Systolic blood pressure 106 mm[Hg] Pst 1 [facility] 11-14-2022 14:29-0500 Body temperature 97.6 [degF] Dr. Mohinder Quick Work Phone: [facility] 11-14-2022 14:29-0500 Body weight 96.[address] Mohinder Quick Work Phone: [facility] 11-14-2022 14:29-0500 Diastolic blood pressure 77 mm[Hg] Dr. Mohinder Quick Work Phone: [facility] 11-14-2022 14:29-0500 Heart rate 83 /min Dr. Mohinder Quick Work Phone: [facility] 11-14-2022 14:29-0500 Respiratory rate 18 /min Dr. Mohinder Quick Work Phone: [facility] 11-14-2022 14:29-0500 SaO2% (BldA) [Mass fraction] 98 % Dr. Mohinder Quick Work Phone: [facility] 11-14-2022 14:29-0500 Systolic blood pressure 132 mm[Hg] Dr. Mohinder Quick Work Phone: [facility] 11-12-2022 10:37-0500 Body temperature 96.9 [degF] Dr. Mohinder Quick Work Phone: [facility] 11-12-2022 10:37-0500 Diastolic blood pressure 63 mm[Hg] Dr. Mohinder Quick Work Phone: [facility] 11-12-2022 10:37-0500 Heart rate 84 /min Dr. Mohinder Quick Work Phone: [facility] 11-12-2022 10:37-0500 Respiratory rate 16 /min Dr. Mohinder Quick Work Phone: [facility] 11-12-2022 10:37-0500 SaO2% (BldA) [Mass fraction] 98 % Dr. Mohinder Quick Work Phone: [facility] 11-12-2022 10:37-0500 Systolic blood pressure 102 mm[Hg] Dr. Mohinder Quick Work Phone: [facility] 11-08-2022 11:17-0500 Body height 167.[address] Mohinder Quick Work Phone: [facility] 11-08-2022 11:17-0500 Body mass index (BMI) [Ratio] 33.4 kg/m2 Dr. Mohinder Quick Work Phone: [facility] 11-08-2022 11:17-0500 Body weight 93.[address] Mohinder Quick Work Phone: [facility] 11-08-2022 11:17-0500 Diastolic blood pressure 82 mm[Hg] Dr. Mohinder Quick Work Phone: [facility] 11-08-2022 11:17-0500 Heart rate 88 /min Dr. Mohinder Quick Work Phone: [facility] 11-08-2022 11:17-0500 Respiratory rate 18 /min Dr. Mohinder Quick Work Phone: [facility] 11-08-2022 11:17-0500 SaO2% (BldA) [Mass fraction] 97 % Dr. Mohinder Quick Work Phone: [facility] 11-08-2022 11:17-0500 Systolic blood pressure 130 mm[Hg] Dr. Mohinder Quick Work Phone: [facility] 11-06-2022 13:22-0500 Body weight 94.[address] Mohinder Quick Work Phone: [facility] 10-30-2022 07:39-0500 Body mass index (BMI) [Ratio] 33.4 kg/m2 Dr. Mohinder Quick Work Phone: [facility] 10-30-2022 07:39-0500 Body temperature 97.6 [degF] Dr. Mohinder Quick Work Phone: [facility] 10-30-2022 07:39-0500 Body weight 93.[address] Mohinder Quick Work Phone: [facility] 10-30-2022 07:39-0500 Diastolic blood pressure 65 mm[Hg] Dr. Mohinder Quick Work Phone: [facility] 10-30-2022 07:39-0500 Heart rate 103 /min Dr. Mohinder Quick Work Phone: [facility] 10-30-2022 07:39-0500 Respiratory rate 20 /min Dr. Mohinder Quick Work Phone: [facility] 10-30-2022 07:39-0500 SaO2% (BldA) [Mass fraction] 97 % Dr. Mohinder Quick Work Phone: [facility] 10-30-2022 07:39-0500 Systolic blood pressure 100 mm[Hg] Dr. Mohinder Quick Work Phone: [facility] 10-26-2022 22:15-0500 Inhaled oxygen concentration 21 % Dr. Mohinder Quick Work Phone: [facility] 10-22-2022 09:26-0500 Inhaled oxygen flow rate 95 L/min Dr. Mohinder Quick Work Phone: [facility] 10-08-2022 06:04-0500 Diastolic blood pressure 68 mm[Hg] Dr. Mohinder Quick Work Phone: [facility] Work Phone: 10-08-2022 06:04-0500 Heart rate 79 /min Dr. Mohinder Quick Work Phone: [facility] Work Phone: 10-08-2022 06:04-0500 Systolic blood pressure 139 mm[Hg] Dr. Mohinder Quick Work Phone: [facility] Work Phone: 10-07-2022 14:00-0500 Body temperature 96.9 [degF] Dr. Mohinder Quick Work Phone: [facility] Work Phone: 10-07-2022 14:00-0500 Respiratory rate 16 /min Dr. Mohinder Quick Work Phone: [facility] Work Phone: 10-07-2022 14:00-0500 SaO2% (BldA) [Mass fraction] 99 % Dr. Mohinder Quick Work Phone: [facility] Work Phone: 10-06-2022 13:53-0500 Body height 167.[address] Mohinder Quick Work Phone: [facility] Work Phone: 10-06-2022 13:53-0500 Body weight 105.[address] Mohinder Quick Work Phone: [facility] Work Phone: 09-13-2022 10:41-0500 Diastolic blood pressure 68 mm[Hg] Dr. Mohinder Quick Work Phone: [facility] 09-13-2022 10:41-0500 Heart rate 108 /min Dr. Mohinder Quick Work Phone: [facility] 09-13-2022 10:41-0500 Respiratory rate 20 /min Dr. Mohinder Quick Work Phone: [facility] 09-13-2022 10:41-0500 SaO2% (BldA) [Mass fraction] 98 % Dr. Mohinder Quick Work Phone: [facility] 09-13-2022 10:41-0500 Systolic blood pressure 133 mm[Hg] Dr. Mohinder Quick Work Phone: [facility] 09-13-2022 08:16-0500 Body height 167.[address] Mohinder Quick Work Phone: [facility] Work Phone: 09-13-2022 08:16-0500 Body mass index (BMI) [Ratio] 38.7 kg/m2 Dr. Mohinder Quick Work Phone: [facility] 09-13-2022 08:16-0500 Body temperature 96.8 [degF] Dr. Mohinder Quick Work Phone: [facility] 09-13-2022 08:16-0500 Body weight 108.[address] Mohinder Quick Work Phone: [facility] 08-26-2022 11:36-0500 Body temperature 97.5 [degF] Dr. Mohinder Quick Work Phone: [facility] 08-26-2022 11:36-0500 Body weight 111.[address] Mohinder Quick Work Phone: [facility] 08-26-2022 11:36-0500 Diastolic blood pressure 84 mm[Hg] Dr. Mohinder Quick Work Phone: [facility] 08-26-2022 11:36-0500 Heart rate 100 /min Dr. Mohinder Quick Work Phone: [facility] 08-26-2022 11:36-0500 Respiratory rate 18 /min Dr. Mohinder Quick Work Phone: [facility] 08-26-2022 11:36-0500 SaO2% (BldA) [Mass fraction] 93 % Dr. Mohinder Quick Work Phone: [facility] 08-26-2022 11:36-0500 Systolic blood pressure 120 mm[Hg] Dr. Mohinder Quick Work Phone: [facility] 08-09-2022 13:37-0500 Body temperature 97.2 [degF] Dr. Mohinder Quick Work Phone: [facility] 08-09-2022 13:37-0500 Diastolic blood pressure 76 mm[Hg] Dr. Mohinder Quick Work Phone: [facility] 08-09-2022 13:37-0500 Heart rate 78 /min Dr. Mohinder Quick Work Phone: [facility] 08-09-2022 13:37-0500 Respiratory rate 18 /min Dr. Mohinder Quick Work Phone: [facility] 08-09-2022 13:37-0500 SaO2% (BldA) [Mass fraction] 98 % Dr. Mohinder Quick Work Phone: [facility] 08-09-2022 13:37-0500 Systolic blood pressure 140 mm[Hg] Dr. Mohinder Quick Work Phone: [facility] 08-09-2022 08:16-0500 Body weight 127.[address] Mohinder Quick Work Phone: [facility] 08-09-2022 06:00-0500 Inhaled oxygen concentration 21 % Dr. Mohinder Quick Work Phone: [facility] 08-09-2022 06:00-0500 Inhaled oxygen flow rate 2 L/min Dr. Mohinder Quick Work Phone: [facility] 08-08-2022 12:20-0500 Body height 162.[address] Mohinder Quick Work Phone: [facility] Work Phone: 08-03-2022 17:13-0400 Body mass index (BMI) [Ratio] 45.3 kg/m2 Dr. Mohinder Quick Work Phone: [facility] 08-03-2022 16:25-0400 Body temperature 98.4 [degF] Dr. Mohinder Quick Work Phone: [facility] Work Phone: 08-03-2022 16:25-0400 Diastolic blood pressure 84 mm[Hg] Dr. Mohinder Quick Work Phone: [facility] Work Phone: 08-03-2022 16:25-0400 Heart rate 88 /min Dr. Mohinder Quick Work Phone: [facility] Work Phone: 08-03-2022 16:25-0400 Respiratory rate 18 /min Dr. Mohinder Quick Work Phone: [facility] Work Phone: 08-03-2022 16:25-0400 SaO2% (BldA) [Mass fraction] 98 % Dr. Mohinder Quick Work Phone: [facility] Work Phone: 08-03-2022 16:25-0400 Systolic blood pressure 158 mm[Hg] Dr. Mohinder Quick Work Phone: [facility] Work Phone: 08-03-2022 11:40-0400 Body height 172.[address] Mohinder Quick Work Phone: [facility] Work Phone: 08-03-2022 11:40-0400 Body mass index (BMI) [Ratio] 41.8 kg/m2 Dr. Mohinder Quick Work Phone: [facility] Work Phone: 08-03-2022 11:40-0400 Body weight 124.[address] Mohinder Quick Work Phone: [facility] Work Phone: 07-10-2022 09:58-0400 Body temperature 97.4 [degF] Dr. Mohinder Quick Work Phone: [facility] Work Phone: 07-10-2022 09:58-0400 Body weight 122.[address] Mohinder Quick Work Phone: [facility] Work Phone: 07-10-2022 09:58-0400 Diastolic blood pressure 77 mm[Hg] Dr. Mohinder Quick Work Phone: [facility] Work Phone: 07-10-2022 09:58-0400 Heart rate 78 /min Dr. Mohinder Quick Work Phone: [facility] Work Phone: 07-10-2022 09:58-0400 Respiratory rate 18 /min Dr. Mohinder Quick Work Phone: [facility] Work Phone: 07-10-2022 09:58-0400 SaO2% (BldA) [Mass fraction] 95 % Dr. Mohinder Quick Work Phone: [facility] Work Phone: 07-10-2022 09:58-0400 Systolic blood pressure 124 mm[Hg] Dr. Mohinder Quick Work Phone: [facility] Work Phone: 07-03-2022 10:14-0400 Body mass index (BMI) [Ratio] 39.4 kg/m2 Dr. Mohinder Quick Work Phone: [facility] Work Phone: 07-03-2022 10:14-0400 Body temperature 98 [degF] Dr. Mohinder Quick Work Phone: [facility] Work Phone: 07-03-2022 10:14-0400 Body weight 121.[address] Mohinder Quick Work Phone: [facility] Work Phone: 07-03-2022 10:14-0400 Diastolic blood pressure 83 mm[Hg] Dr. Mohinder Quick Work Phone: [facility] Work Phone: 07-03-2022 10:14-0400 Heart rate 67 /min Dr. Mohinder Quick Work Phone: [facility] Work Phone: 07-03-2022 10:14-0400 Respiratory rate 16 /min Dr. Mohinder Quick Work Phone: [facility] Work Phone: 07-03-2022 10:14-0400 SaO2% (BldA) [Mass fraction] 97 % Dr. Mohinder Quick Work Phone: [facility] Work Phone: 07-03-2022 10:14-0400 Systolic blood pressure 123 mm[Hg] Dr. Mohinder Quick Work Phone: [facility] Work Phone: 06-28-2022 21:29-0400 Body mass index (BMI) [Ratio] 41.8 kg/m2 Dr. Mohinder Quick Work Phone: [facility] 05-29-2022 22:59-0400 Body mass index (BMI) [Ratio] 41.8 kg/m2 Dr. Mohinder Quick Work Phone: [facility] Work Phone: 04-29-2022 09:41-0400 Body height 175.[address] Mohinder Quick Work Phone: [facility] Work Phone: 04-29-2022 09:41-0400 Body mass index (BMI) [Ratio] 39.6 kg/m2 Dr. Mohinder Quick Work Phone: [facility] Work Phone: 04-29-2022 09:41-0400 Body temperature 98.1 [degF] Dr. Mohinder Quick Work Phone: [facility] Work Phone: 04-29-2022 09:41-0400 Body weight 121.[address] Mohinder Quick Work Phone: [facility] Work Phone: 04-29-2022 09:41-0400 Diastolic blood pressure 78 mm[Hg] Dr. Mohinder Quick Work Phone: [facility] Work Phone: 04-29-2022 09:41-0400 Heart rate 76 /min Dr. Mohinder Quick Work Phone: [facility] Work Phone: 04-29-2022 09:41-0400 Respiratory rate 18 /min Dr. Mohinder Quick Work Phone: [facility] Work Phone: 04-29-2022 09:41-0400 SaO2% (BldA) [Mass fraction] 98 % Dr. Mohinder Quick Work Phone: [facility] Work Phone: 04-29-2022 09:41-0400 Systolic blood pressure 132 mm[Hg] Dr. Mohinder Quick Work Phone: [facility] Work Phone: 04-28-2022 02:19-0400 Body mass index (BMI) [Ratio] 41.8 kg/m2 Dr. Mohinder Quick Work Phone: [facility] Work Phone: 04-18-2022 10:43-0400 Body height 175.[address] Mohinder Quick Work Phone: [facility] Work Phone: 04-18-2022 10:39-0400 Body mass index (BMI) [Ratio] 39.7 kg/m2 Dr. Mohinder Quick Work Phone: [facility] Work Phone: 04-18-2022 10:39-0400 Body weight 122.[address] Mohinder Quick Work Phone: [facility] Work Phone: 04-18-2022 10:39-0400 Diastolic blood pressure 74 mm[Hg] Dr. Mohinder Quick Work Phone: [facility] Work Phone: 04-18-2022 10:39-0400 Heart rate 92 /min Dr. Mohinder Quick Work Phone: [facility] Work Phone: 04-18-2022 10:39-0400 Respiratory rate 18 /min Dr. Mohinder Quick Work Phone: [facility] Work Phone: 04-18-2022 10:39-0400 SaO2% (BldA) [Mass fraction] 96 % Dr. Mohinder Quick Work Phone: [facility] Work Phone: 04-18-2022 10:39-0400 Systolic blood pressure 117 mm[Hg] Dr. Mohinder Quick Work Phone: [facility] Work Phone: 02-26-2022 20:41-0400 Body mass index (BMI) [Ratio] 41.8 kg/m2 Dr. Mohinder Quick Work Phone: [facility] Work Phone: 01-27-2022 02:58-0400 Body mass index (BMI) [Ratio] 41.8 kg/m2 Dr. Mohinder Quick Work Phone: [facility] Work Phone: 01-01-2022 14:00-0400 Body mass index (BMI) [Ratio] 40 kg/m2 Dr. Mohinder Quick Work Phone: [facility] Work Phone: 01-01-2022 14:00-0400 Body temperature 97.2 [degF] Dr. Mohinder Quick Work Phone: [facility] Work Phone: 01-01-2022 14:00-0400 Body weight 122.[address] Mohinder Quick Work Phone: [facility] Work Phone: 01-01-2022 14:00-0400 Diastolic blood pressure 74 mm[Hg] Dr. Mohinder Quick Work Phone: [facility] Work Phone: 01-01-2022 14:00-0400 Heart rate 93 /min Dr. Mohinder Quick Work Phone: [facility] Work Phone: 01-01-2022 14:00-0400 Respiratory rate 20 /min Dr. Mohinder Quick Work Phone: [facility] Work Phone: 01-01-2022 14:00-0400 SaO2% (BldA) [Mass fraction] 94 % Dr. Mohinder Quick Work Phone: [facility] Work Phone: 01-01-2022 14:00-0400 Systolic blood pressure 115 mm[Hg] Dr. Mohinder Quick Work Phone: [facility] Work Phone: 01-01-2022 14:00-0400 Body height 175.[address] Mohinder Quick Work Phone: [facility] Work Phone: 12-27-2021 10:32-0400 Body mass index (BMI) [Ratio] 39.9 kg/m2 Dr. Mohinder Quick Work Phone: [facility] Work Phone: 12-27-2021 10:32-0400 Body temperature 97 [degF] Dr. Mohinder Quick Work Phone: [facility] Work Phone: 12-27-2021 10:32-0400 Body weight 122.[address] Mohinder Quick Work Phone: [facility] Work Phone: 12-27-2021 10:32-0400 Diastolic blood pressure 64 mm[Hg] Dr. Mohinder Quick Work Phone: [facility] Work Phone: 12-27-2021 10:32-0400 Heart rate 69 /min Dr. Mohinder Quick Work Phone: [facility] Work Phone: 12-27-2021 10:32-0400 Respiratory rate 14 /min Dr. Mohinder Quick Work Phone: [facility] Work Phone: 12-27-2021 10:32-0400 SaO2% (BldA) [Mass fraction] 97 % Dr. Mohinder Quick Work Phone: [facility] Work Phone: 12-27-2021 10:32-0400 Systolic blood pressure 106 mm[Hg] Dr. Mohinder Quick Work Phone: [facility] Work Phone: 11-27-2021 10:04-0500 Body mass index (BMI) [Ratio] 41.8 kg/m2 Dr. Mohinder Quick Work Phone: [facility] Work Phone: 11-27-2021 09:04-0500 Body mass index (BMI) [Ratio] 41.8 kg/m2 Dr. Mohinder Quick Work Phone: [facility] Work Phone: 10-29-2021 22:02-0500 Body mass index (BMI) [Ratio] 41.8 kg/m2 Dr. Mohinder Quick Work Phone: [facility] Work Phone: 10-09-2021 12:58-0500 Body mass index (BMI) [Ratio] 39.9 kg/m2 Dr. Mohinder Quick Work Phone: [facility] Work Phone: 10-09-2021 12:58-0500 Body weight 122.[address] Mohinder Quick Work Phone: [facility] Work Phone: 10-09-2021 12:58-0500 Diastolic blood pressure 63 mm[Hg] Dr. Mohinder Quick Work Phone: [facility] Work Phone: 10-09-2021 12:58-0500 Heart rate 84 /min Dr. Mohinder Quick Work Phone: [facility] Work Phone: 10-09-2021 12:58-0500 Respiratory rate 18 /min Dr. Mohinder Quick Work Phone: [facility] Work Phone: 10-09-2021 12:58-0500 Systolic blood pressure 93 mm[Hg] Dr. Mohinder Quick Work Phone: [facility] Work Phone: 08-29-2021 01:23-0500 Body mass index (BMI) [Ratio] 41.8 kg/m2 Dr. Mohinder Quick Work Phone: [facility] Work Phone: Encounters Encounter Date Encounter Type Care Provider Facility Start: 07-27-2025 End: 07-27-2025 ambulatory MOSES JORDAN Facility:[facility] Start: 07-22-2025 End: 07-22-2025 ambulatory Mohinder Quick Facility:[facility] Start: 06-20-2025 End: 06-20-2025 ambulatory LINSEY GARBER Facility:[facility] Start: 05-17-2025 End: 05-17-[address] Mohinder Quick MD Work Phone: -[facility] Start: 05-17-2025 End: 05-17-[address] Mohinder Quick MD -[facility] Work Phone: Start: 05-16-2025 End: 05-16-[address] Mohinder Quick MD -[facility] Work Phone: Start: 05-16-2025 End: 05-17-[address] Mohinder Quick MD Work Phone: -[facility] Start: 04-21-2025 End: 04-22-2025 Refill Moses A Terrelli DO Work Phone: Hematology/Oncology Comment on above: Refill Request Start: 04-20-2025 End: 04-20-2025 ambulatory Treatment Rm 7 Gilberto [facility] Work Phone: Hematology/Oncology Comment on above: Secondary polycythem ia (Primary Dx) Start: 04-20-2025 End: 04-20-2025 Office outpatient visit 25 minutes Moses A Masci DO Work Phone: Hematology/Oncology Comment on above: Secondary polycythem ia (Primary Dx); History of kidney cancer; Other chronic pulmonary embolism without acute cor pulmonale (HCC); Thrombocytopenia Start: 04-20-2025 End: 04-20-2025 ambulatory MOSES A MASCI Facility:[facility] Start: 02-01-2025 End: 02-01-2025 Patient encounter procedure Goyo Cheng MD Work Phone: [facility] Comment on above: 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); Osteomyelitis of left femur, unspecified type (HCC); Trochanteric bursitis of left hip Start: 02-01-2025 End: 02-01-2025 ambulatory GOYO CHENG Facility:[facility] Start: 01-27-2025 End: 01-27-2025 ambulatory Treatment Rm 8 [facility] Work Phone: Hematology/Oncology Comment on above: Secondary polycythem ia (Primary Dx) Start: 01-27-2025 End: 01-27-2025 ambulatory MOSES A MASCI Facility:[facility] Start: 01-19-2025 End: 01-19-2025 Patient encounter procedure Toma ADAMS -[facility] Work Phone: Start: 01-19-2025 End: 01-19-2025 ambulatory Toma Morley NP Facility:[facility] Start: 01-18-2025 End: 01-18-2025 Telephone encounter Goyo Cheng MD Work Phone: [facility] Comment on above: Appointment Start: 01-14-2025 End: 01-14-2025 ambulatory Mohinder Quick Facility:[facility] Start: 12-20-2024 End: 12-20-2024 Refill Linsey Garber MD Work Phone: [facility] Comment on above: Refill Request Start: 12-13-2024 End: 12-13-[address] Mohinder Quick MD -[facility] Work Phone: Start: 12-13-2024 End: 12-13-2024 ambulatory Mohinder Quick Facility:[facility] Start: 12-13-2024 ambulatory Rafael Torres Facility:[facility] Start: 12-13-2024 Non-patient / Non-visit Dr. Mala MICHELLE -[facility] Start: 12-08-2024 End: 12-08-[address] Mohinder Quick MD Work Phone: [facility] Work Phone: Start: 12-08-2024 End: 12-08-[address] Rafael Torres MD -Cardi[facility] Services Work Phone: Start: 12-08-2024 End: 12-08-2024 ambulatory Rafael Torres Facility:[facility] Start: 11-24-2024 End: 11-24-[address] Ira Quiñonez DC -[facility] Work Phone: Start: 11-24-2024 End: 11-24-2024 ambulatory Mohinder Quick Facility:[facility] Start: 11-09-2024 End: 11-09-[address] Rafael Torres MD -[facility] Work Phone: Start: 11-09-2024 End: 11-09-2024 ambulatory [facility] Facility:[facility] Start: 11-08-2024 End: 2025 Follow-up encounter Linsey Garber MD Work Phone: [facility] Start: 11-04-2024 End: 11-04-2024 ambulatory Treatment Rm 4 Gilberto [facility] Work Phone: Hematology/Oncology Comment on above: Secondary polycythem ia (Primary Dx) Start: 11-04-2024 End: 11-04-2024 ambulatory MOSES JORDAN Facility:[facility] Start: 11-02-2024 End: 11-02-2024 ambulatory LINSEY GARBER Facility:[facility] Start: 11-02-2024 End: 11-02-2024 Patient encounter procedure Linsey Garber MD Work Phone: [facility] Comment on above: Chronic antibiotic s uppression (Primary Dx); H/O staphylococcal infection; Constipation, unspecified constipation type Start: 08-31-2024 End: 08-31-[address] Mohinder Quick MD -Laboratory Work Phone: Start: 08-31-2024 End: 08-31-2024 ambulatory [facility] Facility:[facility] Start: 08-23-2024 End: 08-23-[address] Mohinder Quick MD -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); Osteomyelitis of left femur, unspecified type (HCC) Start: 05-18-2024 End: 05-18-2024 ambulatory GOYO CHENG [facility] Start: 04-23-2024 End: 04-23-2024 ambulatory Treatment Rm 1 Gilberto [facility] Work Phone: Hematology/Oncology Comment on above: Secondary polycythem ia (Primary Dx) Refill Request Start: 04-15-2024 Telephone encounter Moses smith DO Work Phone: Hematology/Oncology Comment on above: Results Start: 03-02-2024 End: 03-02-2024 ambulatory Moses Jordan DO Work Phone: Hematology/Oncology Comment on above: Secondary polycythem ia (Primary Dx); Thrombocytopenia (HCC); Pulmonary embolism without acute cor pulmonale, unspecified chronicity, unspecified pulmonary embolism type (HCC) Start: 03-02-2024 End: 03-02-2024 Patient encounter procedure Moses Jordan DO Work Phone: Hematology/Oncology Start: 02-09-2024 Patient encounter procedure [facility] Provider [facility] Start: 01-28-2024 End: 01-28-2024 ambulatory Treatment Rm 1 [facility] Work Phone: Hematology/Oncology Comment on above: Thrombocytopenia (HC C) (Primary Dx) Start: 01-27-2024 Orders Only Moses Chau O Work Phone: Hematology/Oncology Comment on above: Secondary polycythem ia (Primary Dx) Start: 12-03-2023 End: 12-03-2023 Patient encounter procedure Linsey Garber MD Work Phone: [facility] Comment on above: Chronic antibiotic s uppression (Primary Dx); Osteomyelitis, unspecified site, unspecified type (HCC); H/O staphylococcal infection Start: 11-18-2023 End: 11-18-2023 Patient encounter procedure Goyo Cheng MD Work Phone: [facility] Comment on above: 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); Osteomyelitis of left femur, unspecified type (HCC); Trochanteric bursitis of left hip Start: 10-30-2023 End: 10-30-2023 ambulatory Treatment Rm 11 Gilberto [facility] Work Phone: Hematology/Oncology Comment on above: Thrombocytopenia (HC C) (Primary Dx) Start: 08-12-2023 End: 08-12-2023 Patient encounter procedure Goyo Cheng MD Work Phone: [facility] Comment on above: 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 Comment on above: Appointment Start: 08-08-2023 End: 08-08-[address] Mohinder Quick Work Phone: [facility] Work Phone: Start: 08-08-2023 End: 08-08-[address] Mohinder Quick Work Phone: [facility]Laboratory Work Phone: Start: 07-31-2023 End: 07-31-[address] Mohinder [facility] Work Phone: Start: 07-30-2023 End: 07-30-2023 ambulatory Treatment Rm 13 Gilberto [facility] Work Phone: Hematology/Oncology Comment on above: Secondary polycythem ia (Primary Dx) Start: 07-23-2023 End: 07-23-[address] Mohinder Quick Work Phone: [facility] Work Phone: Start: 05-26-2023 End: 05-26-[address] Mohinder Quick Work Phone: [facility] Work Phone: Start: 05-20-2023 Refill Moses Moss Work Phone: Hematology/Oncology Comment on above: Refill Request Start: 05-19-2023 End: 05-19-[address] [facility] Work Phone: Start: 05-14-2023 End: 05-14-[address] Mohinder Quick Work Phone: [facility] [place] Work Phone: Start: 05-14-2023 End: 05-14-[address] 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); Osteomyelitis of left femur, unspecified type (HCC) Start: 05-06-2023 Telephone encounter Financial Navigator Gilberto Work Phone: Financial Services Comment on above: Benefits Investigati on Start: 04-30-2023 Telephone encounter Linsey castellano MD Work Phone: [facility] Comment on above: Results Start: 04-29-2023 End: 04-29-2023 Patient encounter procedure Linsey Garber MD Work Phone: [facility] Comment on above: Chronic antibiotic s uppression (Primary Dx); 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 Joyce Quick Work Phone: [facility] Start: 03-13-2023 End: 03-13-[address] Mohinder Quick Work Phone: [facility] Work Phone: Start: 03-13-2023 End: 03-13-[address] Mohinder Quick Work Phone: [facility] Start: 03-07-2023 Telephone encounter Rula kruse APRN.CNP Work Phone: Hematology/Oncology Comment on above: Orders Start: 02-27-2023 Non-patient / Non-visit Dr. Joyce Quick Work Phone: [facility] Start: 02-20-2023 End: 02-20-[address] Mohinder Quick Work Phone: [facility] Start: 02-20-2023 Non-patient / Non-visit Dr. Joyce Quick Work Phone: [facility] Start: 02-20-2023 End: 02-26-[address] Mohinder Quick Work Phone: [facility] Work Phone: Start: 02-20-2023 End: 02-26-[address] Mohinder Quick Work Phone: [facility] Start: 02-13-2023 Non-patient / Non-visit Dr. Joyce Quick Work Phone: [facility] Start: 02-06-2023 Non-patient / Non-visit Dr. Joyce Quick Work Phone: [facility] Start: 02-03-2023 Telephone encounter Moses smith DO Work Phone: Hematology/Oncology Comment on above: Patient Question Start: 02-03-2023 End: 02-03-[address] Mohinder Quick Work Phone: [facility] Start: 01-31-[address] Mohinder Quick Work Phone: [facility] Start: 01-30-2023 End: 01-30-[address] Mohinder Quick Work Phone: [facility] Work Phone: Start: 01-30-2023 End: 01-30-[address] Mohinder Quick Work Phone: [facility] Start: 01-30-2023 Non-patient / Non-visit Dr. Joyce Quick Work Phone: [facility] Start: 01-22-2023 Telephone encounter Linsey castellano MD Work Phone: [facility] Comment on above: Orders Start: 01-21-2023 End: 01-21-2023 Patient encounter procedure Linsey Garber MD Work Phone: [facility] Comment on above: 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, subsequent encounter (Primary Dx); MRSA infection; Elbow wound, right, sequela; Elevated serum creatinine; Obesity, morbid, BMI 40.0-49.9 (HCC); Chronic obstructive pulmonary disease, unspecified COPD type (HCC); Thrombocytopenia (HCC); Renal cell carcinoma of right kidney (HCC); Malnutrition of mild degree (HCC) Start: 12-31-2022 End: 12-31-2022 Patient encounter procedure Goyo Cheng MD Work Phone: [facility] Comment on above: Osteomyelitis of lef t femur, unspecified type (HCC) (Primary Dx); Status post total replacement of left hip Start: 12-26-2022 End: 12-26-[address] Mohinder Quick Work Phone: [facility] Work Phone: Start: 12-26-2022 End: 12-26-[address] Mohinder Quick Work Phone: [facility], [facility] Start: 12-16-2022 Non-patient / Non-visit Dr. Joyce Quick Work Phone: [facility] Start: 12-16-2022 End: 12-16-[address] Mohinder Quick Work Phone: [facility] Start: 12-10-2022 End: 12-10-2022 Patient encounter procedure Goyo Cheng MD Work Phone: [facility] Comment on above: Osteomyelitis of lef t femur, unspecified type (HCC) (Primary Dx) Start: 12-04-2022 End: 12-04-2022 Patient encounter procedure Linsey Garber MD Work Phone: [facility] Comment on above: Olecranon bursitis o f right elbow (Primary Dx); 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, subsequent encounter; Osteomyelitis of other site, unspecified type (HCC); MRSA infection Start: 12-02-2022 Telephone [place] [id number] OR[facility]IC Comment on above: Post Op Call Start: 11-25-2022 Telephone encounter Yue rosario PA-C Work Phone: [facility] Comment on above: Follow Up Start: 11-22-2022 Telephone encounter Josee mendosa LPN Work Phone: [facility] Comment on above: Home Care (MD ari comer) Start: 11-19-2022 End: 11-19-2022 Admission to establishment [facility] Start: 11-19-2022 End: 11-19-[address] 1 Pre Surgical Testing Comment on above: Pre-op testing (Prim ann-marie Dx); Hx of custodial use of blood thinners; Osteomyelitis of left femur, unspecified type (HCC); Coagulation defect, unspecified (HCC); Coronary artery disease involving [place] coronary artery of [place] heart without angina pectoris; Unspecified essential hypertension; Obstructive sleep apnea (adult) (pediatric); Asthma, unspecified asthma severity, unspecified whether complicated, unspecified whether persistent; Anticipated difficulty with intubation; Type 2 diabetes mellitus with other specified complication, without long-term current use of insulin (HCC) Start: 11-19-2022 End: 11-19-2022 Patient encounter status Pst 1 Pre Surgical Te sting Start: 11-14-2022 End: 11-14-[address] Mohinder Quick Work Phone: [facility] Start: 11-12-2022 Orders Only Goyo jimenez MD Work Phone: [facility] Comment on above: Osteomyelitis of lef t femur, unspecified type (HCC) (Primary Dx); Osteomyelitis of other site, unspecified type (HCC); Pyogenic arthritis of left hip, due to unspecified organism (HCC) Orders Start: 11-11-2022 Telephone encounter Linsey castellano MD Work Phone: [facility] Comment on above: Results Start: 11-11-2022 End: 11-11-2022 Patient encounter procedure Linsey Garber MD Work Phone: [facility] Department of Infectious Disease Comment on above: MRSA infection (Prim ann-marie Dx); Staphylococcal arthritis of left hip (HCC); Receiving intravenous antibiotic treatment as outpatient Start: 11-11-2022 End: 11-11-2022 Telemedicine consultation with patient Linsey Garber MD Work Phone: [facility] Start: 11-08-2022 Telephone encounter Lisney castellano MD Work Phone: [facility] Department of Infectious Disease Comment on above: CoPat Stop Start: 11-08-2022 End: 11-08-[address] Mohinder Quick Work Phone: [facility] Start: 11-08-2022 End: 11-08-2022 Dr. Mohinder Quick Work Phone: [facility] Start: 10-30-2022 End: 10-30-[address] Mohinder [facility] Start: 10-30-2022 End: 10-30-2022 Dr. Mohinder Quick [facility] Start: 10-29-2022 Telephone encounter Goyo Cheng MD Work Phone: [facility] Comment on above: Patient Update Start: 10-28-2022 Telephone encounter Linsey castellano MD Work Phone: [facility] Comment on above: Results Start: 10-14-2022 Telephone encounter Linsey castellano MD Work Phone: [facility] Comment on above: Results Start: 10-05-2022 End: 11-12-2022 Evaluation and management of inpatient Dr. Mohinder Quick Work Phone: [facility] Start: 10-05-2022 End: 11-12-2022 Dr. Mohinder Quick Work Phone: [facility] Start: 10-02-2022 ambulatory Yue VASQUEZ-Iraida Work Phone: [facility] Comment on above: CoPat Start Start: 09-27-2022 End: 09-27-[address] Mohinder Quick Work Phone: [facility] Work Phone: Start: 09-27-2022 End: 09-27-[address] Mohinder Quick Work Phone: [facility] Start: 09-27-2022 End: 09-27-2022 Dr. Mohinder Quick Work Phone: [facility] Start: 09-25-2022 End: 09-25-[address] Mohinder Quick Work Phone: [facility] Start: 09-25-2022 End: 09-25-2022 Dr. Mohinder [facility] Start: 09-13-2022 End: 09-13-2022 Emergency department patient visit Dr. Mohinder Quick Work Phone: [facility] Start: 09-13-2022 End: 09-13-2022 Dr. Mohinder Quick Work Phone: [facility] Start: 08-30-2022 End: 08-30-[address] Mohinder Quick Work Phone: [facility] Work Phone: Start: 08-30-2022 End: 08-30-[address] Mohinder Quick Work Phone: [facility], [facility] Start: 08-30-2022 End: 08-30-2022 Dr. Mohinder Quick Work Phone: [facility] [place] Start: 08-26-2022 End: 08-26-[address] Mohinder Quick Work Phone: [facility] Start: 08-26-2022 End: 08-26-2022 Dr. Mohinder Quick Work Phone: [facility] Start: 08-09-2022 Non-patient / Non-visit Dr. Joyce Quick Work Phone: [facility] Start: 08-09-2022 Dr. Mohinder aminr Work Phone: [facility] Start: 08-08-2022 Non-patient / Non-visit Dr. Joyce Quick Work Phone: [facility] Start: 08-08-2022 Dr. Mohinder Falk hner Work Phone: [facility] Start: 08-08-2022 Non-patient / Non-visit Dr. Joyce Quick Work Phone: [facility] Start: 08-08-2022 Dr. Mohinder Falk hner Work Phone: [facility] Start: 08-07-2022 Non-patient / Non-visit Dr. Joyce Quick Work Phone: [facility] Start: 08-07-2022 Dr. Mohinder Falk hner Work Phone: [facility] Start: 08-06-2022 Non-patient / Non-visit Dr. Joyce Quick Work Phone: [facility] Start: 08-06-2022 Dr. Mohinder Falk hner Work Phone: [facility] Start: 08-06-2022 Non-patient / Non-visit Dr. Joyce Quick Work Phone: [facility] Start: 08-06-2022 Dr. Mohinder Falk hner Work Phone: [facility] Start: 08-05-2022 Non-patient / Non-visit Dr. Joyce Quick Work Phone: [facility] Start: 08-05-2022 Dr. Mohinder Falk hner Work Phone: [facility] Start: 08-05-2022 Non-patient / Non-visit Dr. Joyce Quick Work Phone: [facility] Start: 08-05-2022 Dr. Mohinder Falk hner Work Phone: [facility] Start: 08-04-2022 Non-patient / Non-visit Dr. Joyce Quick Work Phone: [facility] Start: 08-04-2022 Dr. Mohinder Falk hner Work Phone: [facility] Start: 08-04-2022 End: 08-09-2022 Evaluation and management of inpatient Dr. Mohinder [facility] Start: 08-04-2022 End: 08-09-2022 Dr. Mohinder [facility] Start: 08-04-2022 Non-patient / Non-visit Dr. Joyce Quick Work Phone: [facility] Start: 08-04-2022 Dr. Mohinder aminr Work Phone: [facility] Start: 08-03-2022 Evaluation and manag ement of inpatient Dr. Mohinder Quick [facility] Start: 08-03-2022 Non-patient / Non-visit Dr. Joyce Quick Work Phone: [facility] Start: 08-03-[address] Sujey Quick Work Phone: [facility] Work Phone: Start: 08-03-2022 Dr. Mohinder Falk hner Work Phone: [facility] Start: 07-23-2022 End: 07-23-[address] Mohinder Quick Work Phone: [facility] Work Phone: Start: 07-23-2022 End: 07-23-[address] Mohinder Quick Work Phone: [facility] Start: 07-23-[address] Mohinder [facility] Start: 07-23-2022 End: 07-23-2022 Dr. Mohinder [facility] Start: 07-22-2022 End: 07-22-[address] Mohinder [facility] Start: 07-22-2022 End: 07-22-2022 Dr. Mohinder [facility] Start: 07-18-2022 End: 07-18-[address] Mohinder Quick Work Phone: [facility] Start: 07-18-2022 End: 07-18-2022 Dr. Mohinder Quick Work Phone: [facility] Start: 07-10-2022 End: 07-10-[address] Mohinder Quick Work Phone: [facility] Start: 07-03-2022 End: 07-03-[address] Mohinder Quick [facility] Start: 06-25-2022 End: 06-25-[address] Mohinder Quick Work Phone: [facility] Work Phone: Start: 06-25-2022 End: 06-25-[address] Mohinder [facility] Start: 05-23-2022 End: 05-23-[address] Mohinder Quick Work Phone: [facility] Start: 05-06-2022 Telephone encounter Moses smith DO Work Phone: Hematology/Oncology Comment on above: Patient Question Start: 05-03-2022 End: 05-03-[address] Mohinder Quick Work Phone: [facility] Work Phone: Start: 05-03-2022 End: 05-03-[address] Mohinder [facility] Start: 05-03-[address] Mohinder Quick [facility] Start: 05-03-2022 End: 05-03-[address] Mohinder Quick Work Phone: [facility] Start: 04-29-2022 End: 04-29-[address] Mohinder Quick Work Phone: [facility] Start: 04-18-2022 End: 04-18-[address] Mohinder Quick Work Phone: [facility] Start: 04-09-2022 End: 04-09-[address] Mohinder Quick Work Phone: [facility] Start: 04-03-2022 End: 04-28-[address] Mohinder [facility] Start: 03-25-2022 Refill Moses Moss Work Phone: Hematology/Oncology Comment on above: Refill Request Start: 03-14-2022 End: 03-14-[address] Mohinder Quick Work Phone: [facility] Start: 03-04-2022 End: 04-28-[address] Mohinder [facility] Start: 02-14-2022 End: 02-14-[address] Mohinder Quick Work Phone: [facility] Start: 02-04-2022 End: 02-04-[address] Mohinder [facility] Start: 01-17-2022 End: 01-17-[address] Mohinder Quick Work Phone: [facility] Start: 01-07-2022 End: 01-07-[address] Mohinder Quick Work Phone: [facility] Start: 01-01-2022 End: 01-01-[address] Mohinder Quick Work Phone: [facility] Start: 12-27-2021 End: 12-27-[address] Mohinder Quick Work Phone: [facility] Start: 12-20-2021 End: 12-20-[address] Mohinder Quick Work Phone: [facility] Start: 11-20-2021 End: 11-20-[address] Mohinder Quick Work Phone: [facility] Start: 11-12-2021 End: 11-12-[address] Mohinder [facility] Start: 10-16-2021 End: 10-16-[address] Mohinder Quick Work Phone: [facility] Start: 10-15-2021 End: 10-29-[address] Mohinder [facility] Start: 10-09-2021 End: 10-09-[address] Mohinder Quick Work Phone: [facility] Procedures Date Procedure Procedure Detail Performing Clinician Start: 05-17-2025 X-ray of foot, three or more views Dr. Mohinder Quick MD Work Phone: Start: 05-17-2025 Vitamin D, 25-hydrox y measurement Dr. Mohinder Quick MD Work Phone: Comment on above: Vitamin D StatusDefi ciency: <20 ng/mL (50nmol/L)Insufficiency: 20-30 ng/mL (50-75 nmol/L)Sufficiency: 30-100 ng/mL (75-250 nmol/L)Toxicity: >100 ng/mL (>250 nmol/L) Start: 02-01-2025 Radiologic examinati on femur minimum 2 views Goyo Cheng MD Work Phone: Start: 12-08-2024 Cardiovascular stres s test using pharmacologic stress agent Dr. Mohinder Quick MD Work Phone: Start: 05-18-2024 Radiologic examinati on pelvis 1/2 views Goyo Cheng MD Work Phone: Start: 11-18-2023 Radiologic examinati on pelvis 1/2 views Goyo Cheng MD Work Phone: Start: 08-12-2023 Radiologic examinati on pelvis 1/2 views Goyo Cheng MD Work Phone: Start: 05-13-2023 Radiologic examinati on pelvis 1/2 views Goyo Cheng MD Work Phone: Start: 01-30-2023 Plain x-ray of elbow Dr Mahesh Quick Work Phone: Start: 12-31-2022 Radiologic examinati on pelvis 1/2 views Goyo Cheng MD Work Phone: Start: 12-10-2022 Radiologic examinati on pelvis 1/2 views Goyo Cheng MD Work Phone: Start: 12-04-2022 Cul bact xcpt urine blood/stool aerobic isol Linsey Garber MD Work Phone: Start: 11-19-2022 Antibody screen Pst 1 Start: 11-10-2022 C-reactive protein Mauricio Garber MD Work Phone: Start: 11-10-2022 CBCDIF (EXTERNAL) Lianet Garber MD Work Phone: Start: 11-10-2022 CK CREATINE KINASE (EU,FV,HL,JALEN,MM,SP) Linsey Garber MD Work Phone: Start: 11-10-2022 Creatinine [Mass/vol ume] in Serum or Plasma Linsey Garber MD Work Phone: Start: 11-10-2022 HEPATIC FUNCTION SAENZ EL - EXTERNAL Linsey Garber MD Work Phone: Start: 11-05-2022 Pelvis X-ray Dr. Mohinder Quick Work Phone: Start: 11-03-2022 C-reactive protein Mauricio Garber MD Work Phone: Start: 11-03-2022 CK CREATINE KINASE (EU,FV,HL,JALEN,MM,SP) Linsey Garber MD Work Phone: Start: 10-27-2022 C-reactive protein Mauricio Garber MD Work Phone: Start: 10-27-2022 CBCDIF (EXTERNAL) Lianet Garber MD Work Phone: Start: 10-27-2022 CK CREATINE KINASE (EU,FV,HL,JALEN,MM,SP) Linsey Garber MD Work Phone: Start: 10-27-2022 Creatinine [Mass/vol ume] in Serum or Plasma Linsey Garber MD Work Phone: Start: 10-27-2022 HEPATIC FUNCTION SAENZ EL - EXTERNAL Linsey Garber MD Work Phone: Start: 10-15-2022 Pelvis X-ray Dr. Mohinder Quick Work Phone: Start: 10-13-2022 C-reactive protein Mauricio Garber MD Work Phone: Start: 10-13-2022 CBCDIF (EXTERNAL) Lianet Garber MD Work Phone: Start: 10-13-2022 CK CREATINE KINASE (EU,FV,HL,JALEN,MM,SP) Linsey Garber MD Work Phone: Start: 10-13-2022 Creatinine [Mass/vol ume] in Serum or Plasma Linsey Garber MD Work Phone: Start: 10-13-2022 HEPATIC FUNCTION SAENZ EL - EXTERNAL Linsey Garber MD Work Phone: Start: 10-09-2022 Radiographic procedu re of chest Dr. Mohinder Quick Work Phone: Start: 09-27-2022 MRI of joint of lowe r extremity Dr. Mohinder Quick Work Phone: Start: 09-13-2022 CT angiography of ch est with contrast Dr. Mohinder Quick Work Phone: Start: 08-05-2022 Fluoroscopic guidance Isac Quick Work Phone: Start: 08-04-2022 End: 08-04-2022 Plain chest X-ray Dr. Mohinder Quick Work Phone: Start: 08-03-2022 CT of pelvis with contrast Dr. Mohinder Quick Work Phone: Start: 05-03-2022 X-ray of cervical spine Dr. Mohinder Quick Work Phone: Start: 02-10-2020 Colonoscopy Rula kruse BASKET PERSON.TELEVISION SPECIALIST Work Phone: Start: 05-25-2019 Colonoscopy Moses Jordan DO Work Phone: Start: 05-24-2011 History of placement of stent for coronary artery disease History of coronary artery stent placement Dr. Rafael Torres MD Comment on above: PCI- BMS-proximal LA D with overlapping 3.0 x 28 mm and 3.5 x 12 mm Vision stents w/ POBA ostial D1 05/24/[address] Mohinder Quick Work Phone: Bacteria identified in Blood by Culture Dr. Mohinder Quick Work Phone: Clostridium difficil e detection Dr. Mohinder Quick Work Phone: Clostridium difficil e detection Dr. Mohinder Quick Work Phone: Investigation of transfusion reaction Dr. Mohinder Quick Work Phone: Investigation of transfusion reaction Dr. Mohinder Quick Work Phone: Microbial culture, routine D josue Quick Work Phone: Microbial culture, routine D josue Quick Work Phone: SARS-CoV-2 & FLU Ant igen (Rapid) Dr. Mohinder Quick Work Phone: SARS-CoV-2 & FLU Ant igen (Rapid) Dr. Mohinder Quick Work Phone: Viral antigen assay Dr. Sujey Quick Work Phone: Viral antigen assay Dr. Sujey Quick Work Phone: Dr. Mohinder echols Work Phone: Dr. Mohinder echols Work Phone: Dr. Mohinder echols Work Phone: Plan of Treatment Date Care Activity Detail Author Start: 04-26-2026 End: 04-26-2026 ambulatory Leonid Castañeda [facility] Laboratory Comment on above: (SO)CBC/FERRITIN* 1 YR OV/LAB EARLY/?P HLEBO TODAY* Start: 11-02-2025 BP Controlled (<130/80) BP Con trolled (<130/80) [facility] Start: 10-05-2025 DIABETES SCREEN DIABETES SCREEN [facility] Start: 07-02-2025 BP Controlled (<130/80) BP Con trolled (<130/80) [facility] Start: 05-30-2025 Influenza vaccination C [facility] Start: 04-20-2025 End: 04-20-2025 ambulatory [facility] Comment on above: (SO)CBC W/DIFF/GINNY TIN* 1 YR OV/LAB EARLY/?P HLEBO TODAY* Q3MO ? PHLEBO/LAB&OV EARLY* Start: 04-05-2025 End: 04-05-2025 Patient encounter procedure 04/05/2025 11:00 AM EDT Office Visit [facility] [address] [place] [address] Goyo Cheng MD [address] [place] [address] L hip [facility] Comment on above: L hip Start: 02-01-2025 End: 02-01-2025 Patient encounter procedure 02/01/2025 9:00 AM EDT Office Visit [facility] [address] [place] [address] Goyo Cheng MD [address] [place] [address] Left hip-a lot of pain feels like something is crunching in the hip [facility] Comment on above: Left hip-a lot of pa in feels like something is crunching in the hip Start: 01-27-2025 End: 01-27-2025 ambulatory [facility] Comment on above: (SO)CBC W/DIFF/GINNY TIN* 1 YR OV/LAB EARLY/?P HLEBO TODAY* Q3MO ? PHLEBO/LAB&OV EARLY* Q3MO ? PHLEBO/LAB EA RLY* 12/11/23 -1 yr ov to be rescheduled next treatment due to change in Dr. 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 PHLEBO/LAB EA RLY* Start: 12-02-2024 BP Controlled (<130/80) BP Con trolled (<130/80) [facility] Start: 11-04-2024 End: 11-04-2024 ambulatory [facility] Comment on above: (SO)CBC W/DIFF/GINNY TIN* Q3MO ? PHLEBO/LABS E JENNIFER* I YR OV DUE JANUARY OR FEB 2025 Start: 11-02-2024 End: 02-01-2025 C reactive protein [Mass/volume] in Serum or Plasma C-REACTIVE PROTEIN Lab Routine Chronic antibiotic suppression Expected: 11/02/2024, Expires: 02/01/2025 [facility] Work Phone: Comment on above: Expected: 11/02/2024 , Expires: 02/01/2025 Start: 11-02-2024 End: 02-01-2025 CREATININE BLD CREATININE BLD Lab Routine Chronic antibiotic suppression Expected: 11/02/2024, Expires: 02/01/2025 [facility] Comment on above: Expected: 11/02/2024 , Expires: 02/01/2025 Start: 11-02-2024 End: 02-01-2025 Erythrocyte sedimentation rate SEDIMENTATION RATE, WESTERGREN Lab Routine Chronic antibiotic suppression Expected: 11/02/2024, Expires: 02/01/2025 [facility] Comment on above: Expected: 11/02/2024 , Expires: 02/01/2025 Start: 09-29-2024 Advance Directive Discussion Advance Directive Discussion [facility] Start: 07-20-2024 End: 07-20-2024 ambulatory 07/20/2024 10:00 AM EDT Results Only Leonid [facility] [address] [place] [address] (SO)CBC W/DIFF/FERRITIN* [facility] Comment on above: (SO)CBC W/DIFF/GINNY TIN* Start: 07-15-2024 End: 07-15-2024 ambulatory [facility] Comment on above: CBC W/DIFF/FERRITIN* Q3MO ? PHLEBO/LABS E JENNFIER* I YR OV DUE JANUARY OR FEB 2025 Start: 05-30-2024 Covid-19 Vaccine ( season) Covid-19 Vaccine ( season) [facility] Start: 05-30-2024 Influenza vaccination C [facility] Start: 05-18-2024 End: 05-18-2024 Patient encounter procedure 05/18/2024 10:30 AM EDT Office Visit [facility] [address] [place] [address] Goyo Cheng MD [address] [address] L hip [facility] Comment on above: L hip Start: 04-29-2024 BP CONTROLLED (<130/80) BP CON TROLLED (<130/80) [facility] Start: 04-22-2024 End: 04-22-2024 ambulatory [facility] Comment on above: CBC W/DIFF Q3MO ? PHLEBO/LABS E JENNIFER* CBC W/DIFF/FERRITIN* Start: 03-02-2024 End: 03-02-2024 ambulatory 03/02/2024 10:30 AM EDT Visit (SP) Office Hematology/Oncology [address], [place] [id number] Moses Jordan DO [address] [place] [address] 1 YR OV* Hematology/Oncology Comment on above: 1 YR OV* Start: 02-15-2024 BP CONTROLLED (<130/80) BP CON TROLLED (<130/80) [facility] Start: 01-28-2024 End: 01-28-2024 ambulatory [facility] Comment on above: CBC W/DIFF Q3MO ? PHLEBO/LABS E JENNIFER* Start: 01-22-2024 BP CONTROLLED (<130/80) BP CON TROLLED (<130/80) [facility] Start: 12-05-2023 BP CONTROLLED (<130/80) BP CON TROLLED (<130/80) [facility] Start: 12-03-2023 End: 03-03-2024 C reactive protein [Mass/volume] in Serum or Plasma C-REACTIVE PROTEIN (CRP) Lab Routine Chronic antibiotic suppression Osteomyelitis, unspecified site, unspecified type (HCC) Expected: 12/03/2023, Expires: 03/03/2024 [facility] Work Phone: Comment on above: Expected: 12/03/2023 , Expires: 03/03/2024 Start: 12-03-2023 End: 03-03-2024 CREATININE BLD CREATININE BLD Lab Routine Chronic antibiotic suppression Osteomyelitis, unspecified site, unspecified type (HCC) Expected: 12/03/2023, Expires: 03/03/2024 [facility] Work Phone: Comment on above: Expected: 12/03/2023 , Expires: 03/03/2024 Start: 12-03-2023 End: 03-03-2024 Hepatic function 2000 panel - Serum or Plasma HEPATIC FUNCTION PNL Lab Routine Chronic antibiotic suppression Osteomyelitis, unspecified site, unspecified type (HCC) Expected: 12/03/2023, Expires: 03/03/2024 [facility] Work Phone: Comment on above: Expected: 12/03/2023 , Expires: 03/03/2024 Start: 11-19-2023 BP CONTROLLED (<130/80) BP CON TROLLED (<130/80) [facility] Start: 09-29-2023 Advance Directive Discussion Advance Directive Discussion [facility] Start: 09-28-2023 Hepatitis B screening URINE ALBUMIN:CREATININE RATIO [facility] Start: 05-30-2023 Covid-19 Vaccine () Covid-19 Vaccine () [facility] Start: 05-30-2023 Influenza vaccination C [facility] Start: 05-19-2023 Hemoglobin A1c measurement HbA1C [facility] Start: 05-19-2023 Hemoglobin A1c/Hemoglobin.total in Blood HBA1C [facility] Start: 01-21-2023 End: 03-23-2023 CREATININE BLD CREATININE BLD Lab Routine Elevated serum creatinine Expected: 01/21/2023, Expires: 03/23/2023 [facility] Work Phone: Comment on above: Expected: 01/21/2023 , Expires: 03/23/2023 Start: 12-04-2022 End: 02-03-2023 C reactive protein [Mass/volume] in Serum or Plasma C-REACTIVE PROTEIN (CRP) Lab Routine 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, subsequent encounter Expected: 12/04/2022, Expires: 02/03/2023 [facility] Work Phone: Comment on above: Expected: 12/04/2022 , Expires: 02/03/2023 Start: 12-04-2022 End: 02-03-2023 CBC W Auto Differential panel - Blood CBC + DIFF Lab Routine 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, subsequent encounter Expected: 12/04/2022, Expires: 02/03/2023 [facility] Work Phone: Comment on above: Expected: 12/04/2022 , Expires: 02/03/2023 Start: 12-04-2022 End: 02-03-2023 Comprehensive metabolic 2000 panel - Serum or Plasma COMP METABOLIC PANEL Lab Routine 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 [facility] Start: 10-27-2022 Blood chemistry [facility] Work Phone: Start: 10-27-2022 [facility] Work Phone: Start: 10-22-2022 [facility] Start: 10-20-2022 Blood chemistry [facility] Work Phone: Start: 10-20-2022 [facility] Work Phone: Start: 10-14-2022 End: 10-14-2022 [facility] Start: 10-13-2022 Blood chemistry [facility] Work Phone: Start: 10-13-2022 [facility] Work Phone: Start: 10-11-2022 Provision of activit y privileges [facility] Start: 10-11-2022 SARS-CoV-2 (COVID-19 ) Ag [Presence] in Respiratory specimen by Rapid immunoassay [facility] Work Phone: Start: 10-09-2022 Chemotherapy care management [facility] Start: 10-09-2022 SARS-CoV-2 (COVID-19 ) Ag [Presence] in Respiratory specimen by Rapid immunoassay [facility] Work Phone: Start: 10-07-2022 Enteric precautions [facility] Work Phone: Start: 10-07-2022 Following clinical p athway protocol [facility] Work Phone: Start: 10-06-2022 Developing a treatme nt plan [facility] Start: 10-06-2022 Development of care plan [facility] Start: 10-06-2022 Patient referral to dietitian [facility] Start: 10-06-2022 Following clinical p athway protocol [facility] Start: 10-06-2022 Peripherally inserte d central catheter care [facility] Start: 10-06-2022 Wound care [facility] Start: 10-05-2022 [facility] Start: 01-07-2023 Verification routine [facility] Work Phone: Start: 10-05-2022 Consultation [facility] Start: 10-05-2022 Consultation for treatment [facility] Start: 10-05-2022 Following clinical p athway protocol [facility] Start: 10-05-2022 Peripherally inserte d central catheter care [facility] Start: 10-05-2022 Admission procedure [facility] Start: 10-05-2022 Measuring intake and output [facility] Start: 10-05-2022 Patient referral to dietitian [facility] Start: 10-05-2022 Referral to occupati onal therapist [facility] Start: 10-05-2022 Referral to service [facility] Start: 10-05-2022 Vital signs measurements [facility] Start: 10-05-2022 End: 10-05-2022 [facility] Start: 10-05-2022 Continuous positive airway pressure ventilation treatment [facility] Work Phone: Start: 09-29-2022 ADVANCE DIRECTIVE DISCUSSION ADVANCE DIRECTIVE DISCUSSION [facility] Start: 09-18-2022 BP CONTROLLED (<130/80) BP CON TROLLED (<130/80) [facility] Start: 08-09-[address] [facility] Start: 08-07-2022 Blood culture [facility] Work Phone: Start: 08-06-2022 Blood culture [facility] Work Phone: Start: 08-05-2022 End: 08-05-2022 Consultation [facility] Start: 08-04-2022 [facility] Start: 08-04-2022 [facility] Start: 08-04-2022 Care planning and pr oblem solving actions [facility] Start: 08-04-2022 Admission procedure [facility] Start: 08-04-2022 End: 08-04-2022 Consultation [facility] Start: 08-04-2022 Application of intermittent pneumatic compression device [facility] Start: 08-03-2022 [facility] Start: 08-03-2022 Following clinical p athway protocol [facility] Start: 08-03-2022 Assessment of risk o f venous thromboembolism [facility] Start: 08-03-2022 Care regimes management [facility] Start: 08-03-2022 Consultation for pain [facility] Start: 08-03-2022 Fall prevention [facility] Start: 08-03-2022 Incentive spirometry [facility] Start: 08-03-2022 Inhalation therapy procedure [facility] Start: 08-03-2022 Insertion of cathete r into peripheral vein [facility] Start: 08-03-2022 Introduction of urin ann-marie catheter [facility] Start: 08-03-2022 Measuring intake and output [facility] Start: 08-03-2022 Providing care accor ding to standard [facility] Start: 08-03-2022 Provision of activit y privileges [facility] Start: 08-03-2022 Referral to occupati onal therapist [facility] Start: 08-03-2022 Referral to service [facility] Start: 08-03-2022 [facility] Start: 08-03-2022 Verification routine [facility] Work Phone: Start: 08-03-2022 Admission procedure [facility] Start: 08-03-2022 [facility] Work Phone: Start: 05-30-2022 Influenza vaccination INFLUENZA (#1) [facility] Start: 11-29-2021 COVID-19 VACCINE (4 - Booster for Moderna series) COVID-19 VACCINE (4 - Booster for Moderna series) [facility] Start: 09-29-2021 ADVANCE DIRECTIVE DISCUSSION ADVANCE DIRECTIVE DISCUSSION [facility] Start: 09-26-2021 COVID-19 VACCINE (4 - Booster for Moderna series) COVID-19 VACCINE (4 - Booster for Moderna series) [facility] Start: 09-26-2021 COVID-19 VACCINE (4 - Moderna series) COVID-19 VACCINE (4 - Moderna series) [facility] Start: 02-09-2021 Colonoscopy COLONOSCOPY [facility] Start: 02-09-2021 COLORECTAL CANCER SCREENING COLORECTAL CANCER SCREENING [facility] Start: 02-09-2021 Screening for malign ant neoplasm of colon [facility] Start: 05-25-2020 Colonoscopy COLONOSCOPY [facility] Start: 05-25-2020 COLORECTAL CANCER SCREENING COLORECTAL CANCER SCREENING [facility] Start: 05-20-2020 DIABETES SCREEN DIABETES SCREEN [facility] Start: 2018 PNEUMOCOCCAL: 65+ (1 - PCV) PNEUMOCOCCAL: 65+ (1 - PCV) [facility] Start: 12-28-2017 Medicare Annual Well ness Visit Medicare Annual Wellness Visit [facility] Start: 12-11-2016 LIPID SCREEN LIPID SCREEN [facility] Start: 2013 RSV Vaccine (1 - 1-d ose 60+ series) RSV Vaccine (1 - 1-dose 60+ series) [facility] Start: 2013 RSV Vaccine (1 - Ris k 60-74 years 1-dose series) RSV Vaccine (1 - Risk 60-74 years 1-dose series) [facility] Start: 05-18-2009 Urine microalbumin profile [facility] Start: 2003 SHINGRIX VACCINE (1 of 2) VELIZ GRIX VACCINE (1 of 2) [facility] Start: 1998 COLOGUARD (FIT-DNA) COLOGUARD (FIT-D NA) [facility] Start: [address] COLONOGRAPHY [facility] Start: 1998 FECAL OCCULT BLOOD FECAL OCCULT BLOO D [facility] Start: 1998 Screening for malign ant neoplasm of colon [facility] Start: 1998 SIGMOIDOSCOPY SIGMOIDOSCOPY [facility] Start: 1983 Zoledronic acid therapy ALPHA- 1 ANTITRYPSIN DEFICIENCY SCREENING [facility] Start: 01-09-1972 Pneumococcal Vaccine : 50+ (1 of 2 - PCV) Pneumococcal Vaccine: 50+ (1 of 2 - PCV) [facility] Start: 01-09-1972 SHINGRIX VACCINE (1 of 2) VELIZ GRIX VACCINE (1 of 2) [facility] Start: 1971 ANNUAL PCP TEAM DAY SPA MANAGER MONIQUE DISEASE VISIT ANNUAL PCP TEAM CHRONIC DISEASE VISIT [facility] Start: 1971 BP CONTROLLED (<130/80) BP CON TROLLED (<130/80) [facility] Start: 1971 Hepatitis B surface antibody level LDL CHOLESTEROL [facility] Start: 1971 HEPATITIS C SCREENING HEPATITIS C [facility] Start: 1971 Hepatitis C screening Hepatitis C [facility] Start: 1971 SPIROMETRY SPIROMETRY [facility] Start: 1963 3 comp foot exam completed DIABETIC FOOT EXAM [facility] Start: 1963 Diabetic foot examination Diabetic F oot Exam [facility] Start: 1963 Glaucoma screening Dilated Retinal E xam [facility] Start: 1963 Hepatitis B screening Urine Albumin:Creatinine Ratio [facility] Start: 1963 Hepatitis C antibody , confirmatory test DILATED RETINAL EXAM [facility] Start: 1959 Pneumococcal Vaccine : 65+ (1 - PCV) Pneumococcal Vaccine: 65+ (1 - PCV) [facility] Start: 1959 Pneumococcal Vaccine : 65+ (1 of 2 - PCV) Pneumococcal Vaccine: 65+ (1 of 2 - PCV) [facility] Start: 1959 PNEUMOCOCCAL: 65+ (1 - PCV) PNEUMOCOCCAL: 65+ (1 - PCV) [facility] Start: 1953 ABDOMINAL AORTIC ANE URYSM SCREENING [facility] Start: 1953 Abdominal aortic ane urysm screening Abdominal Aortic Aneurysm Screening [facility] 24 Hour ECG [facility] Alanine aminotransfe rase [Enzymatic activity/volume] in Serum or Plasma [facility] Work Phone: Albumin [Mass/volume ] in Serum or Plasma [facility] Work Phone: Alkaline phosphatase [Enzymatic activity/volume] in Serum or Plasma [facility] Work Phone: Anion gap measurement [facility] Work Phone: Aspartate aminotrans ferase [Enzymatic activity/volume] in Serum or Plasma [facility] Work Phone: Bacteria identified in Blood by Culture Blood Culture [facility] Work Phone: Bacteria identified in Wound by Culture WOUND CULTURE AND GRAM STAIN Microbiology Routine Olecranon bursitis of right elbow 12/04/2022 2:00 PM EST [facility] Work Phone: Bilirubin, total measurement [facility] Work Phone: Bilirubin.direct [Mass/volume] in Serum or Plasma [facility] Work Phone: Blood chemistry [facility] Brain natriuretic pe ptide measurement [facility] BUN/Creatinine ratio [facility] Work Phone: C reactive protein [Mass/volume] in Serum or Plasma [facility] Calcium [Mass/volume ] in Serum or Plasma [facility] Work Phone: Carbon dioxide, tota l [Moles/volume] in Serum or Plasma [facility] Work Phone: End: 03-10-2024 CBC W Auto Differential panel - Blood CBC + DIFF Lab STAT Secondary polycythemia Every 3 months for 4 Occurrences starting 03/12/2023 until 03/10/2024 [facility] Work Phone: Comment on above: Every 3 months for 4 Occurrences starting 03/12/2023 until 03/10/2024 End: 01-26-2025 CBC W Auto Differential panel - Blood COMPLETE BLOOD COUNT AND DIFFERENTIAL Lab STAT Secondary polycythemia Every 3 months for 4 Occurrences starting 01/27/2024 until 01/26/2025 [facility] Work Phone: Comment on above: Every 3 months for 4 Occurrences starting 01/27/2024 until 01/26/2025 CBC W Auto Different ial panel - Blood [facility] Chloride [Moles/volu me] in Serum or Plasma [facility] Work Phone: Comprehensive metabo lic 1999 panel - Serum or Plasma [facility] Comprehensive metabo lic 1999 panel - Serum or Plasma [facility] Creatine kinase [Enz ymatic activity/volume] in Serum or Plasma [facility] Work Phone: Creatinine [Moles/vo lume] in Serum or Plasma [facility] Work Phone: Erythrocyte sediment ation rate [facility] Glucose [Mass/volume ] in Serum or Plasma [facility] Work Phone: Hematocrit [Volume Fraction] of Blood [facility] Work Phone: Hemoglobin [Mass/vol ume] in Blood [facility] Work Phone: Hemoglobin A1c/Hemoglobin.total in Blood [facility] Hemoglobin A1c/Hemoglobin.total in Blood [facility] Leukocytes [#/volume ] in Blood [facility] Work Phone: Lipid 1996 panel - S riley or Plasma [facility] Mean corpuscular hemoglobin concentration determination [facility] Work Phone: Mean corpuscular hemoglobin determination [facility] Work Phone: Measurement of renal function [facility] Work Phone: Neutrophil count [facility] Work Phone: Neutrophil percent differential count [facility] Work Phone: Patient Education [facility] Work Phone: Patient referral [facility] Work Phone: Platelets [#/volume] in Blood [facility] Work Phone: Potassium [Moles/vol ume] in Serum or Plasma [facility] Work Phone: Red blood cell count [facility] Work Phone: Red cell distributio n width determination [facility] Work Phone: Sodium [Moles/volume ] in Serum or Plasma [facility] Work Phone: T4 free measurement [facility] T4 free measurement [facility] Thyroid stimulating hormone measurement [facility] Thyroid stimulating hormone measurement [facility] Total protein measurement [facility] Work Phone: Triiodothyronine, fr ee measurement [facility] Triiodothyronine, fr ee measurement [facility] Urea nitrogen [Mass/volume] in Serum or Plasma [facility] Work Phone: Vitamin B12 measurement [facility] Vitamin D, 25-hydrox y measurement [facility] XR Foot 2 Views [facility] Immunizations Immunization Date Immunization Notes Care Provider Yonathan de la paz 10-07-2022 influenza, injectabl e, quadrivalent, preservative free Dr. Mohinder Quick Work Phone: [facility] 10-07-2022 influenza, seasonal, injectable Dr. Mohinder Quick Work Phone: [facility] 10-07-2022 influenza virus vaccine, unspecified formulation Treatment [facility]str Work Phone: [facility] 08-01-2021 Covid (Moderna) Dr. Mohinder nicole Work Phone: [facility] 07-16-2021 influenza, injectabl e, quadrivalent, preservative free Dr. Mohinder Quick Work Phone: [facility] 07-16-2021 influenza, seasonal, injectable Dr. Mohinder Quick Work Phone: [facility] 10-31-2020 Covid (Moderna) Dr. Mohinder nicole Work Phone: [facility] 10-03-2020 Covid (Moderna) Dr. Mohinder nicole Work Phone: [facility] 07-04-2020 influenza, injectabl e, quadrivalent, preservative free Dr. Mohinder Quick Work Phone: [facility] 07-04-2020 influenza, seasonal, injectable Dr. Mohinder Quick Work Phone: [facility] 08-02-2019 influenza, injectabl e, quadrivalent, preservative free Dr. Mohinder Quick Work Phone: [facility] 08-02-2019 influenza, seasonal, injectable Dr. Mohinder Quick Work Phone: [facility] 07-29-2018 influenza, injectabl e, quadrivalent, preservative free Dr. Mohinder Quick Work Phone: [facility] 07-29-2018 influenza, seasonal, injectable Dr. Mohinder Quick Work Phone: [facility] 04-13-2018 hepatitis B vaccine, adult dosage Dr. Mohinder Quick Work Phone: [facility] 10-22-2017 hepatitis B vaccine, adult dosage Dr. Mohinder Quick Work Phone: [facility] 09-04-2017 hepatitis B vaccine, adult dosage Dr. Mohinder Quick Work Phone: [facility] 07-20-2014 influenza, injectabl e, quadrivalent, preservative free Dr. Mohinder Quick Work Phone: [facility] 07-20-2014 influenza, seasonal, injectable Dr. Mohinder Quick Work Phone: [facility] 10-07-[address] Mohinder Quick Work Phone: [facility] 08-02-2009 novel [id number], preservative-free, injectable Dr. Mohinder Quick Work Phone: [facility] 05-17-2009 tetanus and diphther ia toxoids, adsorbed, preservative free, for adult use (2 Lf of tetanus toxoid and 2 Lf of diphtheria toxoid) Moses Jordan DO Work Phone: [facility] Work Phone: 08-03-2004 influenza virus vaccine, unspecified formulation Moses Jordan DO Work Phone: [facility] Work Phone: Payers Date Payer Category Payer Self-pay [id number] 2022 [facility] [place] [id number] 2022 Unknown ANTHEM ANTHEM ME DICARE SUPPLEMENT [id number] 2022-Present [phone] [address] [place] [address] Indemnity [id number] 2022 Unknown [id number] 2019 Unknown MMO MMO TPA [id number] 2019-Present [address] [place] [address] PPO [id number] 2017 Medicare MEDICARE MEDICAR E A [id number] 2017-Present [phone] [address] [place] [address] Medicare [id number] 2017 Medicare [id number] 2017 Medicare [id number] 2015 Unknown [id number] Medicare [id number] A [id number] Unknown [id number] Unknown [id number] 462 Unknown [id number] Unknown [id number] Unknown [id number] 462 Unknown [id number] 462 Unknown [id number] 462 Unknown [id number] 462 Unknown [id number] 462 Unknown [id number] 462 Unknown [id number] 462 Unknown [id number] 462 Unknown [id number] 462 Social History Date Type Detail Facility Start: 01-17-2022 End: 07-31-2023 Tobacco smoking status NEIS Unknown if ever smoked [facility] Start: 01-27-2021 None [facility] Start: 05-21-2019 Non-smoker [facility] Start: 1955 Sex Assigned At Male W [facility] Start: 09-30-2022 End: 10-27-2023 Tobacco smoking status NEIS Ex-smoker [facility] Start: 02-20-1970 End: 02-20-1985 History of tobacco use Current smoker [facility] Start: 02-20-1970 End: 02-20-1985 History of tobacco use Cigarette Smoker [facility] Start: 09-18-2021 End: 04-20-2025 Alcohol intake Current non-drinker of alcohol (finding) [facility] Start: 1955 Sex Assigned At Not on file [facility] Start: 09-30-2022 End: 02-11-2023 Cigarettes smoked current (pack per day) - Reported 0.5 [facility] Start: 09-30-2022 End: 05-18-2024 Tobacco use and exposure Smokeless tobacco non-user [facility] Start: 10-01-2022 History SDOH Financial 5 [facility] Start: 10-01-2022 History SDOH Food Worry 1 [facility] Start: 10-01-2022 History SDOH Transpo rt Med 2 [facility] Start: 02-11-2023 End: 04-29-2023 Tobacco use panel [facility] How hard is it for y ou to pay for the very basics like food, housing, medical care, and heating Not hard at all [facility] (I/We) worried alec er (my/our) food would run out before (I/we) got money to buy more. Never true [facility] In the past 12 month s, was there a time when you were not able to pay the mortgage or rent on time? No [facility] Start: 12-24-2022 Gender identity Identifies as male gender (finding) [facility] Start: 12-24-2022 Sexual orientation Heterosexual (sabas webb) [facility] Start: 01-03-2018 With Family [facility] Start: 12-15-2024 Sex Male (finding) [facility] Medical Equipment Procedure Code Equipment Code Equipment Origin al Text Equipment Identifier Dates multi-link visio n coronary stent family FDA Start: 05-24-2011 multi-link visio n coronary stent family FDA Start: 05-24-2011 multi-link visio n coronary stent family FDA Start: 05-24-2011 multi-link visio n coronary stent family FDA Start: 05-24-2011 multi-link visio n coronary stent family FDA Start: 05-24-2011 multi-link visio n coronary stent family FDA Start: 05-24-2011 multi-link visio n coronary stent family FDA Start: 05-24-2011 multi-link visio n coronary stent family FDA Start: 05-24-2011 multi-link visio n coronary stent family FDA Start: 05-24-2011 multi-link visio n coronary stent family FDA Start: 05-24-2011 multi-link visio n coronary stent family FDA Start: 05-24-2011 multi-link visio n coronary stent family FDA Start: 05-24-2011 multi-link visio n coronary stent family FDA Start: 05-24-2011 multi-link visio n coronary stent family FDA Start: 05-24-2011 multi-link visio n coronary stent family FDA Start: 05-24-2011 multi-link visio n coronary stent family FDA Start: 05-24-2011 multi-link visio n coronary stent family FDA Start: 05-24-2011 multi-link visio n coronary stent family FDA Start: 05-24-2011 multi-link visio n coronary stent family FDA Start: 05-24-2011 multi-link visio n coronary stent family FDA Start: 05-24-2011 multi-link visio n coronary stent family FDA Start: 05-24-2011 multi-link visio n coronary stent family FDA Start: 05-24-2011 multi-link visio n coronary stent family FDA Start: 05-24-2011 multi-link visio n coronary stent family FDA Start: 05-24-2011 Cement Simplex P Bone Radiopaque Full Dose Sterile - [id number] Start: 09-30-2022 Remedy Spectrum Gv Femoral Head 40mm [id number] Start: 09-30-2022 FDA Start: 05-24-2011 FDA Start: 05-24-2011 Imp Hip Cone Bdy Rest 21 [id number] Start: 11-22-2022 Head V40 36mm +5 mm Offset Taper Biolox Delta Femoral Hip - [id number] Start: 11-22-2022 Screw Trident Ii 6.5mm 20mm Bone Low Profile Hexagonal Sterile - [id number] Start: 11-22-2022 multi-link visio n coronary stent family FDA Start: 05-24-2011 multi-link visio n coronary stent family FDA Start: 05-24-2011 multi-link visio n coronary stent family FDA Start: 05-24-2011 multi-link visio n coronary stent family FDA Start: 05-24-2011 multi-link visio n coronary stent family FDA Start: 05-24-2011 multi-link visio n coronary stent family FDA Start: 05-24-2011 multi-link visio n coronary stent family FDA Start: 05-24-2011 multi-link visio n coronary stent family FDA Start: 05-24-2011 multi-link visio n coronary stent family FDA Start: 05-24-2011 multi-link visio n coronary stent family FDA Start: 05-24-2011 Remedy Acetabula r Cup 40mm/48mm [id number] Start: 09-30-2022 Remedy Modular S tem Small [id number] Start: 09-30-2022 Trident Shll Sudhir tmhl 56f [id number] Start: 11-22-2022 Hoahaoism Modu lar Hip Implant 16mm X 115mm [id number] Start: 11-22-2022 Trident X3 Polyethylene Insert 10deg 36mm Sz F [id number] Start: 11-22-2022 Screw Trident Ii 6.5mm 30mm Bone Low Profile Hexagonal Sterile - [id number] Start: 11-22-2022 multi-link visio n coronary stent family FDA Start: 05-24-2011 multi-link visio n coronary stent family FDA Start: 05-24-2011 multi-link visio n coronary stent family FDA Start: 05-24-2011 multi-link visio n coronary stent family FDA Start: 05-24-2011 multi-link visio n coronary stent family FDA Start: 05-24-2011 multi-link visio n coronary stent family FDA Start: 05-24-2011 Goals Date Patient Goal Desired Activity /State Functional Status Date Assessment Result Facility 11-25-2022 Are you deaf, or do you have serious difficulty hearing No 11/25/2022 12:30 PM Kelley Martinez RN No [facility] 11-25-2022 Are you blind, or do you have serious difficulty seeing, even when wearing glasses No 11/25/2022 12:30 PM Kelley Martinez RN No [facility] 11-25-2022 Do you have serious difficulty walking or climbing stairs No 11/25/2022 12:30 PM Kelley Martinez RN No [facility] 11-25-2022 Do you have difficul ty dressing or bathing No 11/25/2022 12:30 PM Kelley Martinez RN No [facility] 11-25-2022 Because of a physica l, mental, or emotional condition, do you have difficulty doing errands alone such as visiting a physician's office or shopping No 11/25/2022 12:30 PM Kelley Martinez RN No [facility] 11-12-2022 Functional status Ambulates [facility] Work Phone: 11-11-2022 Functional status Well [facility] Work Phone: 10-08-2022 Functional status Ambulates;Chair [facility] Work Phone: 08-09-2022 Functional status Chair [facility] Work Phone: 08-09-2022 Functional status Standby Assist [facility] Work Phone: Mental Status Date Assessment Result Facility 11-25-2022 Because of a physica l, mental, or emotional condition, do you have serious difficulty concentrating, remembering, or making decisions No 11/25/2022 12:30 PM Kelley Martinez RN No [facility] 11-12-2022 Cognitive function Voice/Name [facility] Work Phone: 11-08-2022 Cognitive function Appropriate;C ooperativ e [facility] Work Phone: 10-07-2022 Cognitive function Voice/Name [facility] Work Phone: 08-09-2022 Cognitive function Voice/Name [facility] Work Phone: Clinical Notes 06-21-2018 to 06-20-2025 Telephone Encounter - Rose Crawley - 04/21/2025 9:16 AM EDTTelephone Encounter - Rose Crawley - 04/21/2025 9:16 AM Delmy Linda RN - 04/20/2025 9:54 AM EDT Note Date & Type Note Facility 06-20-2025 Note HNO ID: [id number] Author: LINSEY GARBER MD Service: ? 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 MRSA: - History of left hip septic arthritis and surrounding osteomyelitis treated in 2022. - Underwent total hip arthroplasty in October 2022. - Currently on doxycycline 100 mg daily for suppression. - Noticed tiny skin bumps on forearm x6-8 months; not pruritic. - Experiences chronic night sweats. - Continues to have chronic left hip pain; uses a cane for ambulation, especially when outside. - Appetite is good. - Recent weight gain; reports not eating much and limited physical activity. - Last CBC (04/20/25) showed normal WBC count and mildly decreased platelet count of 144. - Serum creatinine 1.0, ESR 2, and CRP <0.3. RCC: - History of partial right nephrectomy. Secondary polycythemia: - Under the care of Dr. Jordan. - Taking hydroxyurea. - CBC done every 3 months; platelet count fluctuates. DM: - Managed with Metformin and glipizide. - No recent A1c available in [facility]. - Under the care of PCP Constitutional: (+) intermittent chills, (+) night sweats, (+) weight gain, (-) fever, (-) decreased appetite Musculoskeletal: (+) left hip pain Skin: (+) forearm bumps, (-) pruritus ROS completed x14 and only pertinent data documented, the rest is negative except as documented above MEDICATIONS: Current Outpatient Medications Medication Sig hydroxyurea (HYDREA) 500 mg capsule Take 1 capsule by mouth once daily. doxycycline monohydrate (MONODOX) 100 mg capsule Take 1 capsule by mouth once daily. traZODone (DESYREL) 50 mg tablet Take 50 mg by mouth once daily. furosemide (LASIX) 40 mg tablet Take 20 mg by mouth once daily. aspirin, enteric coated (ASPIRIN, ENTERIC COATED) 81 mg EC tablet Take 1 tablet by mouth twice daily for 21 days. busPIRone (BUSPAR) 5 mg tablet Take 5 mg by mouth twice daily. simethicone, chewable (MYLICON) 80 mg chewable tablet Take 80 mg by mouth three times a day with meals. PRN levothyroxine (SYNTHROID) 100 mcg tablet Take 200 mcg by mouth once daily. metFORMIN (GLUCOPHAGE) 500 mg tablet Take 500 mg by mouth twice daily with meals. glipiZIDE (GLUCOTROL XL) 5 mg 24 hr tablet Take 5 mg by mouth once daily. gabapentin (NEURONTIN) 100 mg capsule Take one capsule in AM, one capsule at 1PM AND three capsules at bedtime. TOPROL XL 25 mg 24 hr tablet Take 25 mg by mouth once daily. No current facility-administered medications for this visit. Objective SOCIAL HISTORY[1] FAMILY HISTORY Problem Relation Age of Onset Coronary Artery Disease Mother first disease age 70's Diabetes Mother Asthma Brother Prostate Cancer Other none Colon Cancer Other none Diabetes Sister Diabetes Brother PHYSICAL EXAM BP 127/79 Pulse 71 Temp (Src) 97.5 (Temporal) Resp 18 Ht 5' 6.535 (1.69m) Wt 273 lb 9.5 oz (124.1kg) SpO2 95% BMI 43.45 kg/(m2). PSYCHIATRIC: no apparent distress. EYES: no scleral icterus, no conjunctivitis HEENT: normal inspection of teeth, lips, gums, and oropharynx NECK: normal appearance, normal movement RESPIRATORY: symmetrical chest expansion and respiratory effort, clear to auscultation CARDIOVASCULAR: S1, S2, no tachy ABDOMINAL: soft, protuberant MUSCULOSKELETAL: No joint tenderness EXTREMITIES: Both forearms with scattered keratotic papules present. Nontender. NEUROLOGICAL: nonfocal DIAGNOSTICS REVIEWED/OPAT LABS REVIEWED PERTINENT LABS CBC: WBC 5.53 04/20/2025 Hemoglobin 15.4 04/20/2025 HCT 43.7 04/20/2025 PLT 144 04/20/2025 CMP: Sodium 140 04/29/2023 Potassium 4.0 04/29/2023 BUN 18 04/29/2023 Creatinine 1.04 11/04/2024 Glucose 84 04/29/2023 Creatinine clearance: Creatinine clearance cannot be calculated (Patient's most recent lab result is older than the maximum 180 days allowed.) INFLAMMATORY MARKERS Sed Rate/CRP: Sed Rate, Westergren 2 11/04/2024 Sed Rate, Omarren 117 09/28/2022 CRP <0.3 11/04/2024 CRP <0.3 01/13/2024 CRP <0.3 01/09/2023 CRP 3.3 11/10/2022 CRP 2.3 11/03/2022 CRP 11.9 10/27/2022 CRP 7.1 10/20/2022 CRP 3.8 10/13/2022 CRP 21.7 09/28/2022 PERTINENT MICROBIOLOGY Reviewed, see micro PERTINENT RADIOLOGY REPORTS Reviewed Impression/Recommendations Dale Sarabia is a 70 year old male with a history of left hip septic arthritis. 1. Chronic antibiotic suppression (Z79.2) 2. History of MRSA infection (Z86.14) 3. Chronic left hip pain (M25.552) - History of left hip septic arthritis and surrounding osteomyelitis treated in 2022; underwent total hip arthroplasty in October 2022. 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 [facility] 05-18-2025 Radiology Diagnostic study note [facility] Imaging Services [address] [place] [address] Foot min 3 Views MR#: [id number] Acct: [id number] Name: DALE SARABIA Rep #: [id number] : 1955 M 70 From: Noah Asif MD PCP: Dr. 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 There is partial subluxation of the 2nd metatarsophalangeal articulation, with degenerative change, and medial deviation. Soft tissue swelling is visible in the metatarsophalangeal region on the lateral view. Mineralization is normal. Vascular calcifications are visible. 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 There is partial subluxation of the 2nd metatarsophalangeal articulation, with degenerative change, and medial deviation. Soft tissue swelling is visible in the metatarsophalangeal region on the lateralview. [facility]: Dr. Mohinder Quick MD ~ Electrical Superintendent: Signed [facility] 04-21-2025 Telephone encounter Note Prescription Refill Information The patient has been identified by name and date of : Yes Caregiver verified no other encounters exist for this prescription request: Yes Caregiver confirmed with patient/requestor that no other refills are due, in the near future, with this provider at this time: Yes The last office visit in the department: Does the patient have a future office visit with this provider/department: Yes Requested Prescriptions Pending Prescriptions Disp Refills hydroxyurea (HYDREA) 500 mg capsule 90 capsule 3 Sig: Take 1 capsule by mouth once daily. Rose Cardenas April 21, 2025 9:16 AM [facility] 04-21-2025 Miscellaneous Notes Prescription Refill Information The patient has been identified by name and date of : Yes Caregiver verified no other encounters exist for this prescription request: Yes Caregiver confirmed with patient/requestor that no other refills are due, in the near future, with this provider at this time: Yes The last office visit in the department: Does the patient have a future office visit with this provider/department: Yes Requested Prescriptions Pending Prescriptions Disp Refills hydroxyurea (HYDREA) 500 mg capsule 90 capsule 3 Sig: Take 1 capsule by mouth once daily. Rose Cardenas April 21, 2025 9:16 AM documented in this encounter [facility] 04-20-2025 Note HNO ID: [id number] Author: DELMY HARMON RN Service: ? Author Type: Registered Nurse Type: Progress Notes Filed: 04/20/2025 09:54 Note Text: No phlebo needed. [facility] 04-20-2025 History of Present illness Narrative No phlebo needed. documented in this encounter [facility] 04-20-2025 Note HNO ID: [id number] Author: MOSES JORDAN, DO Service: ? Author Type: Physician Type: Progress Notes Filed: 04/20/2025 09:24 Note Text: Diagnosis: 1) Polycythemia. 2) History of pulmonary embolism. 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 I reviewed CBCs from [facility]. Hgb=18.4 gm/dl 06/2009. CT A/P in February 2013-no sign recurrent RCC. Had c-scope. One polyp. On Androgel for about 9 yrs. Dose of Androgel was decreased by 50%. Hg 10/04/2015 was 20 g/dl despite doing so. Cardiac catheterization and was noted to have a [...] He received hydration due to increasing creatinine. Current therapy: 1) Hydrea 500 mg once daily. 2) Therapeutic phlebotomy ~every 2 weeks. Presents for ongoing hematologic management. Interim history: Tolerating Hydrea well. Occasional nausea which he attributes to taking doxycycline daily for previous hip infection. He doesn't recall nausea prior to doxycycline. Doing his best to stay with plant based diet. Appetite not as good as it was. Weight up. He continues on aspirin. He has had no unusual bleeding or unexplained bruising. CLARK stable. Back on inhaler--summer humidity and seasonal allergies. Taking Lasix prn swelling legs. PMH, medications and allergies personally reviewed by me today. Any changes documented in appropriate section. ROS: Constitutional: Appetite and energy are normal. Neuro: Denies imbalance. HEENT: No recent change in voice, vision or hearing. Resp: See above. CVS: Denies exertional chest pain, PND, orthopnea and LE edema. GI: Denies reflux, n/v, change in bowel habits and abdominal pain. : No dysuria or gross hematuria. Musculoskeletal: Denies bone, back, joint and muscular pain. Derm: No rash. Heme: See above. Psych: Normal mood. PHYSICAL EXAM: Vitals: Blood pressure 150/81, pulse 71, temperature 36.8 ?C (98.3 ?F), temperature source Temporal, height 169 cm (5' 6.54), weight 124.7 kg (275 lb), SpO2 95%. Well-appearing and in no acute distress. EYES: Sclerae are anicteric bilaterally. LYMPHATIC: There is no palpable cervical, supraclavicular adenopathy. CARDIOVASCULAR: Rhythm is regular. ABDOMEN: The abdomen is nondistended. Extremities: Free of edema. SKIN: No jaundice or rash. ASSESSMENT/PLAN: (D75.1) Secondary polycythemia (primary encounter diagnosis) Assessment: -Previous molecular workup was negative for common mutations associated with polycythemia vera. -He became quite symptomatic with significant rise in hematocrit when not undergoing phlebotomy. -RBC count, hemoglobin and hematocrit have been lower and much more stable on Hydrea in addition to routine phlebotomy. -Again discussed rationale for ongoing Hydrea. Although it is unknown that maintaining hematocrit under 45% with patients with secondary polycythemia, he was quite symptomatic when he was running a higher hematocrit. He has had no bleeding issues. We discussed plan for continued monitoring with CBC every 3 months. Advised him to contact the office should he develop any signs of bleeding or symptoms suggestive of anemia such as worsening fatigue, worsening shortness of breath, lightheadedness or chest pain. Plan: -Continue Hydrea 500 mg once a day. -CBC every 3 months. -Stop phlebotomy--will perform only if gets symptomatic. 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 -CT in March 2018 showed stable findings compared to 2014. Plan: -Imaging as indicated clinically. (I27.82) Other chronic pulmonary embolism without acute cor pulmonale (HCC) Assessment: - Previously stopped apixaban after discussion with his cobbler upper. Plan: -Continue ASA 81 mg daily. (D69.6) Thrombocytopenia Assessment: - Chronic mild intermittent mild thrombocytopenia. May be an effect of Hydrea. - Reviewed his recent CBC. Level of thrombocytopenia allows continued hydroxyurea. Plan: - Repeat CBC as above. Portions of this documentation were copied and pasted from my previous office visit note dated (more content not included)... [facility] 04-20-2025 History of Present illness Narrative Diagnosis: 1) Polycythemia. 2) History of pulmonary embolism. 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 I reviewed CBCs from [facility]. Hgb=18.4 gm/dl 06/2009. CT A/P in February 2013-no sign recurrent RCC. Had c-scope. One polyp. On Androgel for about 9 yrs. Dose of Androgel was decreased by 50%. Hg 10/04/2015 was 20 g/dl despite doing so. Cardiac catheterization and was noted to have a [...] He received hydration due to increasing creatinine. Current therapy: 1) Hydrea 500 mg once daily. 2) Therapeutic phlebotomy ~every 2 weeks. Presents for ongoing hematologic management. Interim history: Tolerating Hydrea well. Occasional nausea which he attributes to taking doxycycline daily for previous hip infection. He doesn't recall nausea prior to doxycycline. Doing his best to stay with plant based diet. Appetite not as good as it was. Weight up. He continues on aspirin. He has had no unusual bleeding or unexplained bruising. CLARK stable. Back on inhaler--summer humidity and seasonal allergies. Taking Lasix prn swelling legs. PMH, medications and allergies personally reviewed by me today. Any changes documented in appropriate section. ROS: Constitutional: Appetite and energy are normal. Neuro: Denies imbalance. HEENT: No recent change in voice, vision or hearing. Resp: See above. CVS: Denies exertional chest pain, PND, orthopnea and LE edema. GI: Denies reflux, n/v, change in bowel habits and abdominal pain. : No dysuria or gross hematuria. Musculoskeletal: Denies bone, back, joint and muscular pain. Derm: No rash. Heme: See above. Psych: Normal mood. PHYSICAL EXAM: Vitals: Blood pressure 150/81, pulse 71, temperature 36.8 C (98.3 F), temperature source Temporal, height 169 cm (5' 6.54), weight 124.7 kg (275 lb), SpO2 95%. Well-appearing and in no acute distress. EYES: Sclerae are anicteric bilaterally. LYMPHATIC: There is no palpable cervical, supraclavicular adenopathy. CARDIOVASCULAR: Rhythm is regular. ABDOMEN: The abdomen is nondistended. Extremities: Free of edema. SKIN: No jaundice or rash. ASSESSMENT/PLAN: (D75.1) Secondary polycythemia (primary encounter diagnosis) Assessment: -Previous molecular workup was negative for common mutations associated with polycythemia vera. -He became quite symptomatic with significant rise in hematocrit when not undergoing phlebotomy. -RBC count, hemoglobin and hematocrit have been lower and much more stable on Hydrea in addition to routine phlebotomy. -Again discussed rationale for ongoing Hydrea. Although it is unknown that maintaining hematocrit under 45% with patients with secondary polycythemia, he was quite symptomatic when he was running a higher hematocrit. He has had no bleeding issues. We discussed plan for continued monitoring with CBC every 3 months. Advised him to contact the office should he develop any signs of bleeding or symptoms suggestive of anemia such as worsening fatigue, worsening shortness of breath, lightheadedness or chest pain. Plan: -Continue Hydrea 500 mg once a day. -CBC every 3 months. -Stop phlebotomy--will perform only if gets symptomatic. 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 -CT in March 2018 showed stable findings compared to 2014. Plan: -Imaging as indicated clinically. (I27.82) Other chronic pulmonary embolism without acute cor pulmonale (HCC) Assessment: - Previously stopped apixaban after discussion with his cobbler upper. Plan: -Continue ASA 81 mg daily. (D69.6) Thrombocytopenia Assessment: - Chronic mild intermittent mild thrombocytopenia. May be an effect of Hydrea. - Reviewed his recent CBC. Level of thrombocytopenia allows continued hydroxyurea. Plan: - Repeat CBC as above. Portions of this documentation were copied and pasted from my previous office visit note dated 03/02/2024 in order to provide a cohesive continuity of the history. The note has been reviewed and edited and updated as necessary. Moses Jordan DO documented in this encounter [facility] 02-01-2025 Note HNO ID: [id number] Author: GOYO CHENG MD Service: ? Author Type: Physician Type: Progress Notes Filed: 02/01/2025 09:40 Note Text: Chief complaint: Left hip pain. History of present illness: Patient returns today follow-up guarding his left hip. Extensive history of osteomyelitis with cement spacer and revision total hip arthroplasty. Is having pain on the lateral aspect of his left hip. Difficulty sitting on that side. When he is doing leg raises at night he feels a crunching or popping sensation over the lateral aspect of his hip. Continues to be on antibiotics per infectious disease. For the patient's past medical history, past surgical history, medications, allergies, family history, social history, and review of systems please refer to medical history in chart. Physical exam: The patient is alert and oriented no acute distress. Answers questions properly. Has a normal affect. Ambulatory with walker. Examination of left lower extremity shows it to be neuro vas intact. Incision well-healed. Tender to palpation over greater trochanter. This does reproduce his symptoms. No pain down his leg. Imaging: Please refer to the radiographic interpretation. Assessment: #1 left total hip arthroplasty. #2 left femur osteomyelitis. #3 trochanteric bursitis left hip. Plan at this time I do think he has a component of trochanteric bursitis. He has not done any formal exercises or therapy for some time. I do think this would be of benefit. We also discussed Voltaren gel. I will see him back in 2 months for repeat evaluation. If there is any questions or concerns prior to the next encounter, he will contact the office. His questions were answered. 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 [facility] 02-01-2025 History of Present illness Narrative Chief complaint: Left hip pain. History of present illness: Patient returns today follow-up guarding his left hip. Extensive history of osteomyelitis with cement spacer and revision total hip arthroplasty. Is having pain on the lateral aspect of his left hip. Difficulty sitting on that side. When he is doing leg raises at night he feels a crunching or popping sensation over the lateral aspect of his hip. Continues to be on antibiotics per infectious disease. For the patient's past medical history, past surgical history, medications, allergies, family history, social history, and review of systems please refer to medical history in chart. Physical exam: The patient is alert and oriented no acute distress. Answers questions properly. Has a normal affect. Ambulatory with walker. Examination of left lower extremity shows it to be neuro vas intact. Incision well-healed. Tender to palpation over greater trochanter. This does reproduce his symptoms. No pain down his leg. Imaging: Please refer to the radiographic interpretation. Assessment: #1 left total hip arthroplasty. #2 left femur osteomyelitis. #3 trochanteric bursitis left hip. Plan at this time I do think he has a component of trochanteric bursitis. He has not done any formal exercises or therapy for some time. I do think this would be of benefit. We also discussed Maya hernandez. I will see him back in 2 months for repeat evaluation. If there is any questions or concerns prior to the next encounter, he will contact the office. His questions were answered. 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 documented in this encounter [facility] 01-19-2025 Evaluation note Diagnosis Onset Date Resolution Asthma chronic January 19 8:40am Obesity chronic January 19 8:40am Obstructive sleep apnea chronic A pril 2024 8:40am [facility] Work Phone: [phone] [id number] Telephone encounter Note* Telephone Encounter - Nata Franco - 01/18/2025 1:52 PM EDT Spoke to patient and scheduled them with Dr. Cheng on 02/01/25 at 9 am at [facility]. Patient is agreeable to date, time, and location. Nata Franco January 18, 2025 1:52 PM [facility]04-22-2025 Miscellaneous Notes* Telephone Encounter - Nata Franco - 01/18/2025 1:52 PM EDT Spoke to patient and scheduled them with Dr. Cheng on 02/01/25 at 9 am at [facility]. Patient is agreeable to date, time, and location. Nata Franco January 18, 2025 1:52 PM documented in this encounterHigh[facility]03-24-[facility]25 Telephone encounter Note * Telephone Encounter - Roxane Kumar MA - 12/20/2024 9:57 AM EDT Pt requesting a refill Roxane Kumra CMA December 20, 2024 9:58 AM [facility]03-24-2025 Miscellaneous Notes* Telephone Encounter - Roxane Kumar MA - 12/20/2024 9:57 AM EDT Pt requesting a refill Roxane Kumar CMA December 20, 2024 9:58 AM documented in this encounterHigh[facility]02-04-2025 Instructions* Patient Instructions* Linsey Garber MD - 11/02/2024 2:44 PM EST - to go to the lab - to take OTC metamucil for constipation - continue doxycycline at once daily dosing - f/u after 1 year documented in this encounterHigh[facility] Hospital02-04-2025 NoteHNO ID: [id number] Author: LINSEY GARBER MD Service: ? Author Type: Physician Type: Progress Notes Filed: 11/02/2024 15:02 Note Text: INFECTIOUS DISEASES OUTPATIENT FOLLOW-UP NOTE SERVICE DATE: 11/02/2024 Subjective INTERVAL HPI : Seen in the follow-up of left hip MRSA infection. On doxycycline 100 mg p.o. twice daily for chronic suppression. Endorsed intermittent left gluteal pain. No radiation of pain. No fever or chills. No night sweats. Reports infrequent heartburn and epigastric pain. Has constipation. No generalized abdominal pain. ROS completed x14 and only pertinent data documented, the rest is negative except as documented above MEDICATIONS: Current Outpatient Medications Medication Sig hydroxyurea (HYDREA) 500 mg capsule Take 1 capsule by mouth once daily. traZODone (DESYREL) 50 mg tablet Take 50 mg by mouth once daily. doxycycline monohydrate (MONODOX) 100 mg capsule Take 1 capsule by mouth two times a day. (Patient taking differently: Take 100 mg by mouth once daily.) furosemide (LASIX) 40 mg tablet Take 20 mg by mouth once daily. aspirin, enteric coated (ASPIRIN, ENTERIC COATED) 81 mg EC tablet Take 1 tablet by mouth twice daily for 21 days. (Patient taking differently: Take 81 mg by mouth once daily.) busPIRone (BUSPAR) 5 mg tablet Take 5 mg by mouth twice daily. levothyroxine (SYNTHROID) 100 mcg tablet Take 200 mcg by mouth once daily. metFORMIN (GLUCOPHAGE) 500 mg tablet Take 500 mg by mouth twice daily with meals. glipiZIDE (GLUCOTROL XL) 5 mg 24 hr tablet Take 5 mg by mouth once daily. gabapentin (NEURONTIN) 100 mg capsule Take one capsule in AM, one capsule at 1PM AND three capsules at bedtime. TOPROL XL 25 mg 24 hr tablet Take 25 mg by mouth once daily. Amoxicillin 500 mg tablet Take 4 tablets 1 hour prior to dental procedure. (Patient not taking: Reported on 11/18/2023) simethicone, chewable (MYLICON) 80 mg chewable tablet Take 80 mg by mouth three times daily with meals. PRN (Patient not taking: Reported on 03/02/2024) tamsulosin (FLOMAX) 0.4 mg Take by mouth daily at bedtime. (Patient not taking: Reported on 03/02/2024) sodium chloride (AYR, OCEAN) 0.65 % nasal spray Use in the nose as needed. (Patient not taking: Reported on 03/02/2024) No current facility-administered medications for this visit. Objective Social History Tobacco Use Smoking status: Former Current packs/day: 0.00 Average packs/day: 0.5 packs/day for 15.0 years (7.5 ttl pk-yrs) Types: Cigarettes Start date: 02/20/1970 Quit date: 02/20/1985 Years since quittin.7 Smokeless tobacco: Never Vaping Use Vaping status: Never Used Substance Use Topics Alcohol use: No Drug use: No FAMILY HISTORY Problem Relation Age of Onset Coronary Artery Disease Mother first disease age 70's Diabetes Mother Asthma Brother Prostate Cancer Other none Colon Cancer Other none Diabetes Sister Diabetes Brother PHYSICAL EXAM BP 116/67 Pulse 65 Temp (Src) 97.2 (Temporal) Resp 20 Ht 5' 7 (1.70m) Wt 267 lb 3.2 oz (121.2kg) SpO2 96% BMI 41.84 kg/(m2). PSYCHIATRIC: no apparent distress SKIN: no rashes, no ulcers, no pressure ulcers EYES: no scleral icterus, no conjunctivitis HEENT: normal inspection of teeth, lips, gums, and oropharynx RESPIRATORY: symmetrical chest expansion and respiratory effort, clear to auscultation CARDIOVASCULAR: S1, S2, no murmurs ABDOMINAL: soft, non-distended, non-tender MUSCULOSKELETAL: normal muscle strength EXTREMITIES: Within normal limits NEUROLOGICAL: nonfocal DIAGNOSTICS REVIEWED/OPAT LABS REVIEWED PERTINENT LABS CBC: WBC 6.12 07/20/2024 Hemoglobin 15.9 07/20/2024 HCT 44.8 07/20/2024 PLT 150 07/20/2024 CMP: Sodium 140 04/29/2023 Potassium 4.0 04/29/2023 BUN 18 04/29/2023 Creatinine 1.08 01/13/2024 Glucose 84 04/29/2023 Creatinine clearance: Creatinine clearance cannot be calculated (Patient's most recent lab result is older than the maximum 180 days allowed.) INFLAMMATORY MARKERS Sed Rate/CRP: Sed Rate, Westergren 117 09/28/2022 CRP <0.3 01/13/2024 CRP <0.3 01/09/2023 CRP 3.3 11/10/2022 CRP 2.3 11/03/2022 CRP 11.9 10/27/2022 CRP 7.1 10/20/2022 CRP 3.8 10/13/2022 CRP 21.7 09/28/2022 PERTINENT MICROBIOLOGY Reviewed, see micro PERTINENT RADIOLOGY REPORTS Reviewed Impression/Recommendations Dale Sarabia is a 69 year old male with prior RCC s/p partial right nephrectomy, DM, COPD, and 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 1. Chronic antibiotic suppression with doxycycline for MRSA 2. Chronic constipation 3. 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 Occasional heartburn CrCl cannot be calculated (Patient's most recent lab result is older than the maximum 180 days allowed.). -- Can decrease (more content not included)...[facility] 11-02-2024 History of Present illness Narrative* Linsey Garber MD - 11/02/2024 2:31 PM EST INFECTIOUS DISEASES OUTPATIENT FOLLOW-UP NOTE SERVICE DATE: 11/02/2024 Subjective INTERVAL HPI : Seen in the follow-up of left hip MRSA infection. On doxycycline 100 mg p.o. twice daily for chronic suppression. Endorsed intermittent left gluteal pain. No radiation of pain. No fever or chills. No night sweats. Reports infrequent heartburn and epigastric pain. Has constipation. Nogeneralized abdominal pain. ROS completed x14 and only pertinent data documented, the rest is negative except as documented above MEDICATIONS: Current Outpatient Medications Medication Sig hydroxyurea (HYDREA) 500 mg capsule Take 1 capsule by mouth once daily. traZODone (DESYREL) 50 mg tablet Take 50 mg by mouth once daily. doxycycline monohydrate (MONODOX) 100 mg capsule Take 1 capsule by mouth two times a day. (Patient taking differently: Take 100 mg by mouth once daily.) furosemide (LASIX) 40 mg tablet Take 20 mg by mouth once daily. aspirin, enteric coated (ASPIRIN, ENTERIC COATED) 81 mg EC tablet Take 1 tablet by mouth twice daily for 21 days. (Patient taking differently: Take 81 mg by mouth once daily.) busPIRone (BUSPAR) 5 mg tablet Take 5 mg by mouth twice daily. levothyroxine (SYNTHROID) 100 mcg tablet Take 200 mcg by mouth once daily. metFORMIN (GLUCOPHAGE) 500 mg tablet Take 500 mg by mouth twice daily with meals. glipiZIDE (GLUCOTROL XL) 5 mg 24 hr tablet Take 5 mg by mouth once daily. gabapentin (NEURONTIN) 100 mg capsule Take one capsule in AM, one capsule at 1PM & three capsules at bedtime. TOPROL XL 25 mg 24 hr tablet Take 25 mg by mouth once daily. Amoxicillin 500 mg tablet Take 4 tablets 1 hour prior to dental procedure. (Patient not taking: Reported on 11/18/2023) simethicone, chewable (MYLICON) 80 mg chewable tablet Take 80 mg by mouth three times daily with meals. PRN (Patient not taking: Reported on 03/02/2024) tamsulosin (FLOMAX) 0.4 mg Take by mouth daily at bedtime. (Patient not taking: Reported on 03/02/2024) sodium chloride (AYR, OCEAN) 0.65 % nasal spray Use in the nose as needed. (Patient not taking: Reported on 03/02/2024) No current facility-administered medications for this visit. Objective Social History Tobacco Use Smoking status: Former Current packs/day: 0.00 Average packs/day: 0.5 packs/day for 15.0 years (7.5 ttl pk-yrs) Types: Cigarettes Start date: 02/20/1970 Quit date: 02/20/1985 Years since quittin.7 Smokeless tobacco: Never Vaping Use Vaping status: Never Used Substance Use Topics Alcohol use: No Drug use: No FAMILY HISTORY Problem Relation Age of Onset Coronary Artery Disease Mother first disease age 70's Diabetes Mother Asthma Brother Prostate Cancer Other none Colon Cancer Other none Diabetes Sister Diabetes Brother PHYSICAL EXAM BP 116/67 Pulse 65 Temp (Src) 97.2 (Temporal) Resp 20 Ht 5' 7 (1.70m) Wt 267 lb 3.2 oz (121.2kg) SpO2 96% BMI 41.84 kg/(m^2). PSYCHIATRIC: no apparent distress SKIN: no rashes, no ulcers, no pressure ulcers EYES: no scleral icterus, no conjunctivitis HEENT: normal inspection of teeth, lips, gums, and oropharynx RESPIRATORY: symmetrical chest expansion and respiratory effort, clear to auscultation CARDIOVASCULAR: S1, S2, no murmurs ABDOMINAL: soft, non-distended, non-tender MUSCULOSKELETAL: normal muscle strength EXTREMITIES: Within normal limits NEUROLOGICAL: nonfocal DIAGNOSTICS REVIEWED/OPAT LABS REVIEWED PERTINENT LABS CBC: WBC 6.12 07/20/2024 Hemoglobin 15.9 07/20/2024 HCT 44.8 07/20/2024 PLT 150 07/20/2024 CMP: Sodium 140 04/29/2023 Potassium 4.0 04/29/2023 BUN 18 04/29/2023 Creatinine 1.08 01/13/2024 Glucose 84 04/29/2023 Creatinine clearance: Creatinine clearance cannot be calculated (Patient's most recent lab result is older than the maximum 180 days allowed.) INFLAMMATORY MARKERS Sed Rate/CRP: Sed Rate, Maciejergren 117 09/28/2022 CRP <0.3 01/13/2024 CRP <0.3 01/09/2023 CRP 3.3 11/10/2022 CRP 2.3 11/03/2022 CRP 11.9 10/27/2022 CRP 7.1 10/20/2022 CRP 3.8 10/13/2022 CRP 21.7 09/28/2022 PERTINENT MICROBIOLOGY Reviewed, see micro PERTINENT RADIOLOGY REPORTS Reviewed Impression/Recommendations Dale Sarabia is a 69 year old male with prior RCC s/p partial right nephrectomy, DM, COPD, and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 1. Chronic antibiotic suppression with doxycycline for MRSA 2. Chronic constipation 3. 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 Occasional heartburn CrCl cannot be calculated (Patient's most recent lab result is older than the maximum 180 days allowed.). -- Can decrease the frequency of doxycycline 200 mg p.o. daily - To take doxycycline only after food with a glass full of water in upright posture and avoiding lying down for at least 1 hour after taking doxycycline - To take [id number] Metamucil 3 times daily for constipation - To check CRP, ESR, and creatinine today - ID clinic follow-up after 1 year SIGNATURE: Linsey Garber MD PATIENT NAME: Dale Sarabia DATE: November 02, 2024 TIME: 2:31 PM documented in this encounterHigh[facility]11-25-2024 Evaluation note* Diagnosis Onset Date Resolution Status Admit Date Asthma acute August 23, 2024 2:22pm Coronary artery disease acute N ov2023 2:22pm Diabetes mellitus acute Novembe r 2023 2:22pm Hypothyroidism acute July 312023 2:22pm Hyperlipidemia chronic July 312023 2:22pm Hypertension chronic July 2:22pm Obstructive sleep apnea chronic N ov2023 2:22pm Essential (primary) hypertension chronic November 09, 2 025 12:56pm History of coronary artery stent placement May 24, 2011 chronic November 09, 2024 12:56pm Hyperlipidemia chronic October 302024 12:56pm Segmental and somatic dysfunction of cervical region acute November 24, 2 025 10:19am Segmental and somatic dysfunction of pelvic region acute Feb ruary 2024 10:19am Segmental and somatic dysfunction of thoracic region acute November 24, 2 025 10:19am Back pain chronic November 24, 2024 10:19am DDD (degenerative disc disease), cervical chronic October 10:19am Asthma acute December 13 2:29pm Coronary artery disease acute [facility] 2024 2:29pm Hypothyroidism acute November 2:29pm Type II diabetes mellitus acute December 13, 2024 2:29pm Atherosclerotic heart disease of [place] coronary artery without angina pectoris chronic December 13, 2024 2:29pm Essential (primary) hypertension chronic December 13, 2024 2:29pm Hyperlipidemia chronic November 2:29pm Hypertension chronic December 13, 2024 2:29pm Obstructive sleep apnea chronic [facility] 2024 2:29pm [facility] Work Phone: [phone] 197-202010-04-2024 Instructions* Patient Instructions* Linsey Garber MD - 07/02/2024 11:04 AM EDT - continue doxycycline two times daily - probiotics daily - f/u after 6 months documented in this encounterHigh[facility] Hospital10-04-2024 History of Present illness Narrative* Linsey Garber MD - 07/02/2024 10:52 AM EDT INFECTIOUS DISEASES OUTPATIENT FOLLOW-UP NOTE SERVICE DATE: 07/02/2024 Subjective INTERVAL HPI : Seen in f/u of L hip PJI due to mrsa infection. Last seen in ID clinic on 12/03/2023. Since then, he decreased the frequency of doxycycline to 1 tablet daily. He experienced worsening left hip pain. However the pain increased after increased physical exertion walking up and down in a camp. He increased the frequency of doxycycline back to 1 tablet twice daily. Pain improved. Was seenfor follow-up at Ortho clinic on 05/18/2024. Plain x-rays were unremarkable. The surgical wound has remained healed well with no dehiscence. No fever or chills. No nausea or vomiting. No diarrhea. Taking doxycycline 100 mg p.o. twice daily currently. Normal appetite No n/v No diarrhea No rashes No SOB No CLARK No cough No malaise No chest pain Has intermittent knee pain bilaterally ROS completed x14 and only pertinent data documented, the rest is negative except as documented above MEDICATIONS: Current Outpatient Medications Medication Sig hydroxyurea (HYDREA) 500 mg capsule Take 1 capsule by mouth once daily. traZODone (DESYREL) 50 mg tablet Take 50 mg by mouth once daily. doxycycline monohydrate (MONODOX) 100 mg capsule Take 1 capsule by mouth two times a day. (Patient taking differently: Take 100 mg by mouth once daily.) furosemide (LASIX) 40 mg tablet Take 20 mg by mouth once daily. aspirin, enteric coated (ASPIRIN, ENTERIC COATED) 81 mg EC tablet Take 1 tablet by mouth twice daily for 21 days. (Patient taking differently: Take 81 mg by mouth once daily.) busPIRone (BUSPAR) 5 mg tablet Take 5 mg by mouth twice daily. levothyroxine (SYNTHROID) 100 mcg tablet Take 200 mcg by mouth once daily. metFORMIN (GLUCOPHAGE) 500 mg tablet Take 500 mg by mouth twice daily with meals. glipiZIDE (GLUCOTROL XL) 5 mg 24 hr tablet Take 5 mg by mouth once daily. gabapentin (NEURONTIN) 100 mg capsule Take one capsule in AM, one capsule at 1PM & three capsules at bedtime. TOPROL XL 25 mg 24 hr tablet Take 25 mg by mouth once daily. Amoxicillin 500 mg tablet Take 4 tablets 1 hour prior to dental procedure. (Patient not taking: Reported on 11/18/2023) simethicone, chewable (MYLICON) 80 mg chewable tablet Take 80 mg by mouth three times daily with meals. PRN (Patient not taking: Reported on 03/02/2024) tamsulosin (FLOMAX) 0.4 mg Take by mouth daily at bedtime. (Patient not taking: Reported on 03/02/2024) sodium chloride (AYR, OCEAN) 0.65 % nasal spray Use in the nose as needed. (Patient not taking: Reported on 03/02/2024) No current facility-administered medications for this visit. Objective Social History Tobacco Use Smoking status: Former Current packs/day: 0.00 Average packs/day: 0.5 packs/day for 15.0 years (7.5 ttl pk-yrs) Types: Cigarettes Start date: 02/20/1970 Quit date: 02/20/1985 Years since quittin.3 Smokeless tobacco: Never Vaping Use Vaping status: Never Used Substance Use Topics Alcohol use: No Drug use: No FAMILY HISTORY Problem Relation Age of Onset Coronary Artery Disease Mother first disease age 70's Diabetes Mother Asthma Brother Prostate Cancer Other none Colon Cancer Other none Diabetes Sister Diabetes Brother PHYSICAL EXAM BP 124/74 Pulse 70 Temp (Src) 97.8 (Temporal) Resp 18 Ht 5' 7 (1.70m) Wt 267 lb 4.8 oz (121.2kg) SpO2 96% BMI 41.86 kg/(m^2). PSYCHIATRIC: no apparent distress SKIN: no rashes, no ulcers, no pressure ulcers EYES: no scleral icterus, no conjunctivitis HEENT: normal inspection of teeth, lips, gums, and oropharynx NECK: normal appearance, normal movement RESPIRATORY: symmetrical chest expansion and respiratory effort, clear to auscultation CARDIOVASCULAR: S1, S2, no murmurs, no gallops, no rubs, no edema ABDOMINAL: soft, non-distended, non-tender MUSCULOSKELETAL: No peripheral joint swelling EXTREMITIES: No pitting pedal edema NEUROLOGICAL: nonfocal DIAGNOSTICS REVIEWED/OPAT LABS REVIEWED PERTINENT LABS CBC: WBC 6.98 04/23/2024 Hemoglobin 15.1 04/23/2024 HCT 42.9 04/23/2024 PLT 145 04/23/2024 CMP: Sodium 140 04/29/2023 Potassium 4.0 04/29/2023 BUN 18 04/29/2023 Creatinine 1.08 01/13/2024 Glucose 84 04/29/2023 Creatinine clearance: Serum creatinine: 1.08 mg/dL 01/13/24 0955 Estimated creatinine clearance: 78.2 mL/min INFLAMMATORY MARKERS Sed Rate/CRP: Sed Rate, Westergren 117 09/28/2022 CRP <0.3 01/13/2024 CRP <0.3 01/09/2023 CRP 3.3 11/10/2022 CRP 2.3 11/03/2022 CRP 11.9 10/27/2022 CRP 7.1 10/20/2022 CRP 3.8 10/13/2022 CRP 21.7 09/28/2022 PERTINENT MICROBIOLOGY Reviewed, see micro PERTINENT RADIOLOGY REPORTS Reviewed Impression/Recommendations Dale Sarabia is a 69 year old male with COPD, prior RCC, prior partial right nephrectomy, diabetes mellitus, and MRSA infection of left hip and surrounding bones. 1. Left hip septic arthritis and surrounding osteomyelitis, s/p [place] hip joint resection and antibiotic spacer placement 09/30/2022 followed by removal of the spacer and total hip arthroplasty 11/22/2022 2. MRSA infection 3. Chronic antibiotic suppression for MRSA Estimated Creatinine Clearance: 78.2 mL/min (based on SCr of 1.08 mg/dL). -- Continue doxycycline 100 mg p.o. twice daily for chronic suppression as long as tolerated - To take probiotics daily --Instructed to seek medical attention for any worsening hip pain with or without wound dehiscence and with or without fever chills - ID clinic follow-up after 6 months SIGNATURE: Linsey Garber MD PATIENT NAME: Dale Sarabia DATE: July 02, 2024 TIME: 10:52 AM documented in this encounterHigh[facility]08-20-2024 NoteHNO ID: [id number] Author: GOYO CHENG MD Service: ? Author Type: Physician Type: Progress Notes Filed: 05/18/2024 10:51 Note Text: Chief complaint: Left hip pain. History of present illness: Patient returns today follow-up. He has osteomyelitis as well as revision total hip arthroplasty. Recently was having some significant hip pain. He was away at a [employer] camp and walking up and down significant elevation changes. This has settled down. His pain was in his thigh as well as the lateral aspect of his hip. Has been using his cane on occasion. Denies any symptoms of infection. Also has history of knee arthritis. For the patient's past medical history, past surgical history, medications, allergies, family history, social history, and review of systems please refer to medical history in chart. Physical exam: The patient is alert and oriented no acute distress. Answers questions properly. Has a normal affect. Rises from a seated position without difficulty. Ambulates with cane. Examination of left lower extremity shows it to be neuro vas intact. No signs of infection. Mild tenderness palpation over greater trochanter. No pain with range of motion hip. Imaging: Please refer to the radiographic interpretation Assessment: #1 revision left total hip arthroplasty. #2 history of left femur osteomyelitis. Plan: This time we did discussion about his symptoms. This may be an indefinite change due to the significance of his injury as well as surgeries. He expressed understanding. He will continue activities as he feels comfortable. With regards to his knee, he will contact our office if he would like any further treatment. I will see him back on an as-needed basis. If there is any questions or concerns in the future, or any change in his symptoms, he will contact our office. Their questions were answered.[facility] 05-18-2024 History of Present illness Narrative* Goyo Cheng MD - 05/18/2024 10:29 AM EDT Chief complaint: Left hip pain. History of present illness: Patient returns today follow-up. He has osteomyelitis as well as revision total hip arthroplasty. Recently was having some significant hip pain. He was away at a [employer] camp and walking up and down significant elevation changes. This has settled down. His pain was in histhigh as well as the lateral aspect of his hip. Has been using his cane on occasion. Denies any symptoms of infection. Also has history of knee arthritis. For the patient's past medical history, past surgical history, medications, allergies, family history, social history, and review of systems please refer to medical history in chart. Physical exam: The patient is alert and oriented no acute distress. Answers questions properly. Hasa normal affect. Rises from a seated position without difficulty. Ambulates with cane. Examination of left lower extremity shows it to be neuro vas intact. No signs of infection. Mild tenderness palpation over greater trochanter. No pain with range of motion hip. Imaging: Please refer to the radiographic interpretation Assessment: #1 revision left total hip arthroplasty. #2 history of left femur osteomyelitis. Plan: This time we did discussion about his symptoms. This may be an indefinite change due to the significance of his injury as well as surgeries. He expressed understanding. He will continue activities as he feels comfortable. With regards to his knee, he will contact our office if he would like any further treatment. I will see him back on an as-needed basis. If there is any questions or concern s in the future, or any change in his symptoms, he will contact our office. Their questions were answered. documented in this encounterHighland [facility] Hospital07-26-2024 Telephone encounter Note * Telephone Encounter - Larisa Dunbar - 04/23/2024 3:39 PM EDT Prescription Refill Information Pt. Had labs today The patient has been identified by name and date of : Yes Caregiver verified no other encounters exist for this prescription request: Yes Caregiver confirmed with patient/requestor that no other refills are due, in the near future, with this provider at this time: Yes The last office visit in the department: Does the patient have a future office visit with this provider/department: No Requested Prescriptions Pending Prescriptions Disp Refills hydroxyurea (HYDREA) 500 mg capsule 90 capsule 3 Sig: Take 1 capsule by mouth once daily. Larisa Cardenas April 23, 2024 3:40 PM [facility] Miscellaneous Notes* Telephone Encounter - Larisa Dunbar - 04/23/2024 3:39 PM EDT Prescription Refill Information Pt. Had labs today The patient has been identified by name and date of : Yes Caregiver verified no other encounters exist for this prescription request: Yes Caregiver confirmed with patient/requestor that no other refills are due, in the near future, with this provider at this time: Yes The last office visit in the department: Does the patient have a future office visit with this provider/department: No Requested Prescriptions Pending Prescriptions Disp Refills hydroxyurea (HYDREA) 500 mg capsule 90 capsule 3 Sig: Take 1 capsule by mouth once daily. Larisa Dunlapbrandin Cardenas April 23, 2024 3:40 PM documented in this encounterHighland District Hospital07-19-2024 Telephone encounter Note * Telephone Encounter - Rosalee Rocha LPN - 04/16/2024 9:51 AM EDT Instructed pt. Labs must be within 7 days of phlebo. Pt. Will have labs done on 04/22. Rosalee Rocha LPN [facility]07-19-2024 Miscellaneous Notes* Telephone Encounter - Rosalee Rocha LPN - 04/16/2024 9:51 AM EDT Instructed pt. Labs must be within 7 days of phlebo. Pt. Will have labs done on 04/22. Rosalee Rocha LPN * Telephone Encounter - Rosalee Rocha LPN - 04/15/2024 3:46 PM EDT Pt. Has labs at [facility] , wondering if these will surfice to determine if he needs phlebo for 04/22. Informed will contact him tomorrow with info. Rosalee Rocha LPN * Telephone Encounter - Larisa Dunbar - 04/15/2024 3:18 PM EDT Patient called requesting to speak with clinical regarding labs he had completed at [facility]. Patient would not give anymore information. documented in this [facility]High[facility]07[facility] Telephone encounter Note * Telephone Encounter - Rosalee Rocha LPN - 04/15/2024 3:46 PM EDT Pt. Has labs at [facility] , wondering if these will surfice to determine if he needs phlebo for 04/22. Informed will contact him tomorrow with info. Rosalee Rocha LPN [facility]07-18-2024 Telephone encounter Note* Telephone Encounter - Larisa Dunbar - 04/15/2024 3:18 PM EDT Patient called requesting to speak with clinical regarding labs he had completed at [facility]. Patient would not give anymore information. [facility] Work Phone: [phone]) 661-654606-04-2024 History of Present illness Narrative* Moses Jordan DO - 03/02/2024 10:59 AM EDT Diagnosis: 1) Polycythemia. 2) History of pulmonary embolism. 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 I reviewed CBCs from [facility]. Hgb=18.4 gm/dl 06/2009. CT A/P in February 2013-no sign recurrent RCC. Had c-scope. One polyp. On Androgel for about 9 yrs. Dose of Androgel was decreased by 50%. Hg 10/04/2015 was 20 g/dl despite doing so. Cardiac catheterization and was noted to have a [...] He received hydration due to increasing creatinine. Current therapy: 1) Hydrea 500 mg once daily. 2) Therapeutic phlebotomy ~every 2 weeks. Presents for ongoing hematologic management. Interim history: Hospitalized 07/2022 for MRSA hip. Lost 135 lbs. Now plant based diet. He continues on aspirin. Apixaban was stopped due to cost--discussed with Dr. Storey. He has had no unusual bleeding or unexplained bruising. CLARK stable. Can climb stairs. PMH, medications and allergies personally reviewed by me today. Any changes documented in appropriate section. ROS: Constitutional: Appetite and energy are normal. Neuro: Denies imbalance. HEENT: No recent change in voice, vision or hearing. Resp: See above. CVS: Denies exertional chest pain, PND, orthopnea and LE edema. GI: Denies reflux, n/v, change in bowel habits and abdominal pain. : No dysuria or gross hematuria. Musculoskeletal: Denies bone, back, joint and muscular pain. Derm: No rash. Heme: See above. Psych: Normal mood. PHYSICAL EXAM: Vitals: Blood pressure 142/82, pulse 79, temperature 36.2 C (97.2 F), height 171 cm (5' 7.32), weight 121.6 kg (268 lb), SpO2 97%. Well-appearing and in no acute distress. EYES: Sclerae are anicteric bilaterally. NECK: Supple. No enlargement of thyroid. LYMPHATIC: There is no palpable cervical, supraclavicular adenopathy. RESPIRATORY: Inspiratory breath sounds are of normal intensity in all pierce. No wheeze appreciated. CARDIOVASCULAR: Rhythm is regular. ABDOMEN: The abdomen is nondistended. Tender left side of the abdomen. Extremities: Free of edema. SKIN: No jaundice or rash. NEUROLOGIC: medical records tech II-XII are grossly intact. No focal motor weakness. LABS: Between February 2021 and 09/17/2021 RBC count has been running from 4.3 6-4,930,000 cells per microliter. Hemoglobin ranging 13.7-4 teen 0.8 g/dL. Hematocrit highest was 43.9% in April 2021. ASSESSMENT/PLAN: (D75.1) Secondary polycythemia (primary encounter diagnosis) Assessment: -Previous molecular workup was negative for common mutations associated with polycythemia vera. -He became quite symptomatic with significant rise in hematocrit when not undergoing phlebotomy. -RBC count, hemoglobin and hematocrit have been lower and much more stable on Hydrea in addition toroutine phlebotomy. Plan: -Continue Hydrea 500 mg once a day. -CBC/ferritin with possible phlebotomy every 3 months. -Phlebotomy threshold of hematocrit of 45%. 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 -CT in March 2018 showed stable findings compared to 2014. Plan: -Imaging as indicated clinically. (I27.82) Other chronic pulmonary embolism without acute cor pulmonale (HCC) Assessment: -Stopped apixaban after discussion with his cobbler upper. -Mild to moderate intermittent thrombocytopenia. Plan: -Continue ASA 81 mg daily. (D69.6) Thrombocytopenia (HCC) Assessment: -Has had mild thrombocytopenia on several occasions and a one-time moderate thrombocytopenia. Likely pseudothrombocytopenia or lab artifact. Plan: -Continue to monitor. Portions of this documentation were copied and pasted from previous office visit notes in order to provide a cohesive continuity of the history. The note has been reviewed and edited and updated as necessary. I spent a total of 15 minutes on the date of the service which included preparing to see the patient, [id number] patient care, completing clinical documentation, obtaining and/or reviewing separately obtained history, performing a medically appropriate examination, counseling and educating the pat ient/family/caregiver, ordering medications, tests, or procedures, communicating with other HCPs (not separately reported), and communicating results to the patient/family/caregiver. Moses Jordan DO documented in this encounterHigh[facility]06-04-[facility]24 Nurse Note* Rosalee Rocha LPN - 03/02/2024 10:24 AM EDT Est. Pt. Yearly F/u , discuss most recent labs Rosalee Rocha LPN [facility]06-04-2024 Nurse Note* Rosalee Rocha LPN - 03/02/2024 10:24 AM EDT Est. Pt. Yearly F/u , discuss most recent labs Rosalee Rocha LPN documented in this encounterHigh[facility] Hospital05-01-2024 History of Present illness Narrative* Berlin Paulino RN - 01/28/2024 3:12 PM EDT Pt does not meet parameter for phlebo. documented in this encounterHigh[facility]03-06-2024 Instructions* Patient Instructions* Linsey Garber MD - 12/03/2023 10:49 AM EST -- continue Doxycycline 100 mg po bid -- probiotics daily -- eat yogurt regularly -- to check CRP , Cr and LFTs during next blood draw for CBC -- ID clinic fu after 6 months documented in this encounterHigh[facility]03-06-2024 History of Present illness Narrative* Linsey Garber MD - 12/03/2023 10:34 AM EST INFECTIOUS DISEASES OUTPATIENT FOLLOW-UP NOTE SERVICE DATE: 12/03/2023 Subjective INTERVAL HPI : Seen in follow-up of MRSA left hip prosthetic joint infection and chronic antibioticsuppression. Overall doing well. No new left hip pain. No nausea or vomiting. Tolerating doxycycline better after following the instructions provided during the last ID clinic visit. No diarrhea, rather constipated. No abdominal pain. Right elbow skin lesion has healed completely. No new skin rash.Endorsed chronic bilateral shoulder pain. Normal appetite No n/v No diarrhea No rashes No SOB No CLARK No cough No malaise No chest pain No joint pain ROS completed x14 and only pertinent data documented, the rest is negative except as documented above MEDICATIONS: Current Outpatient Medications Medication Sig doxycycline monohydrate (MONODOX) 100 mg capsule Take 1 capsule by mouth two times a day. hydroxyurea (HYDREA) 500 mg capsule Take 1 capsule by mouth once daily. furosemide (LASIX) 40 mg tablet Take 40 mg by mouth once daily. aspirin, enteric coated (ASPIRIN, ENTERIC COATED) 81 mg EC tablet Take 1 tablet by mouth twice daily for 21 days. (Patient taking differently: Take 81 mg by mouth once daily.) busPIRone (BUSPAR) 5 mg tablet Take 5 mg by mouth twice daily. simethicone, chewable (MYLICON) 80 mg chewable tablet Take 80 mg by mouth three times daily with meals. PRN tamsulosin (FLOMAX) 0.4 mg Take by mouth daily at bedtime. sodium chloride (AYR, OCEAN) 0.65 % nasal spray Use in the nose as needed. levothyroxine (SYNTHROID) 100 mcg tablet Take 200 mcg by mouth once daily. metFORMIN (GLUCOPHAGE) 500 mg tablet Take 500 mg by mouth twice daily with meals. glipiZIDE (GLUCOTROL XL) 5 mg 24 hr tablet Take 5 mg by mouth once daily. gabapentin (NEURONTIN) 100 mg capsule Take one capsule in AM, one capsule at 1PM & three capsules at bedtime. TOPROL XL 25 mg 24 hr tablet Take 25 mg by mouth once daily. Amoxicillin 500 mg tablet Take 4 tablets 1 hour prior to dental procedure. (Patient not taking: Reported on 11/18/2023) No current facility-administered medications for this visit. Objective Social History Tobacco Use Smoking status: Former Packs/day: 0.50 Years: 15.00 Additional pack years: 0.00 Total pack years: 7.50 Types: Cigarettes Quit date: 02/20/1985 Years since quittin.8 Smokeless tobacco: Never Vaping Use Vaping Use: Never used Substance Use Topics Alcohol use: No Drug use: No FAMILY HISTORY Problem Relation Age of Onset Coronary Artery Disease Mother first disease age 70's Diabetes Mother Asthma Brother Prostate Cancer Other none Colon Cancer Other none Diabetes Sister Diabetes Brother PHYSICAL EXAM BP 118/73 Pulse 73 Temp (Src) 96.8 (Temporal) Resp 18 Ht 5' 7 (1.70m) Wt 257 lb 14.4 oz (117.0kg) SpO2 96% BMI 40.38 kg/(m^2). PSYCHIATRIC: no apparent distress, oriented to time, place and person SKIN: no rashes, no ulcers, no pressure ulcers EYES: no scleral icterus, no conjunctivitis HEENT: normal inspection of lips, gums, and oropharynx NECK: normal appearance, normal movement RESPIRATORY: symmetrical chest expansion and respiratory effort, clear to auscultation CARDIOVASCULAR: S1, S2, no murmurs, no gallops, no rubs, no edema ABDOMINAL: soft, non-distended, non-tender MUSCULOSKELETAL: normal muscle strength, normal muscle tone EXTREMITIES: No pitting pedal edema Left lateral hip surgical incision wound well-healed, overlying skin dry, no open wound or erythemanoted. Right elbow skin intact with healed scar noted. NEUROLOGICAL: nonfocal DIAGNOSTICS REVIEWED/OPAT LABS REVIEWED PERTINENT LABS CBC: WBC 7.01 10/30/2023 Hemoglobin 15.3 10/30/2023 HCT 42.7 10/30/2023 PLT 154 10/30/2023 CMP: Sodium 140 04/29/2023 Potassium 4.0 04/29/2023 BUN 18 04/29/2023 Creatinine 1.09 04/29/2023 Glucose 84 04/29/2023 Creatinine clearance: Creatinine clearance cannot be calculated (Patient's most recent lab result is older than the maximum 180 days allowed.) INFLAMMATORY MARKERS Sed Rate/CRP: Sed RateNikole 117 09/28/2022 CRP <0.3 01/09/2023 CRP 3.3 11/10/2022 CRP 2.3 11/03/2022 CRP 11.9 10/27/2022 CRP 7.1 10/20/2022 CRP 3.8 10/13/2022 CRP 21.7 09/28/2022 PERTINENT MICROBIOLOGY Reviewed, see micro PERTINENT RADIOLOGY REPORTS Reviewed Impression/Recommendations Dale Sarabia is a 68 year old male with COPD, prior RCC, prior partial right nephrectomy, diabetes mellitus, and 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 1. 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 History of MRSA BSI, treated 3. Left acetabular osteomyelitis, left septic hip arthritis, posterior pelvic abscesses, treated 4. Right elbow wound, resolved CrCl cannot be calculated (Patient's most recent lab result is older than the maximum 180 days allowed.). --To continue doxycycline 100 mg p.o. twice daily, as long as tolerated - Continue probiotics daily and eat yogurt regularly - To check CRP, creatinine, and LFTs during next blood draw for CBC --ID clinic follow-up after 6 months SIGNATURE: Linsey Garber MD PATIENT NAME: Dale Sarabia DATE: December 03, 2023 TIME: 10:34 AM documented in this encounterHighland [facility] Hospital02-20-2024 History of Present illness Narrative* Goyo Cheng MD - 11/18/2023 10:59 AM EST Chief complaint: Follow-up left hip. History present illness: Patient is well-known to myself. Comes in today for routine follow-up. Overall doing well. Essentially been walking without a cane for the majority of the time. The pain on the lateral aspect of his hip comes and goes. Overall doing better than her last visit. She recently had some viral illnesses and sick. Had some dizziness today and x-ray. Feeling better now. For the patient's past medical history, past surgical history, medications, allergies, family history, social history, and review of systems please refer to medical history in chart. Physical exam: The patient is alert and oriented no acute distress. Answers questions appropriate. Has a normal affect. Ambulatory without assistance. Examination of left lower extremity shows no pain with internal ex rotation of the hip. Some mild tenderness palpation over greater trochanter and gluteus musculature. Imaging: Please refer to the radiographic interpretation Assessment: #1 left total hip arthroplasty. #2 osteomyelitis left femur. #3 trochanteric bursitis left hip. Plan: This time he is doing well. Symptoms are improving. States he has lost some weight. We discussed weight loss and the importance of this. Overall feeling better after his dizziness today. He will continue with his antibiotics per the infectious disease service. He is seeing them next month. I will see him back in 6 months. If there is any questions or concerns prior to the next encounter, they will contact the office. Questions answered. documented in this encounterHigh[facility] Hospital11-14-2023 History of Present illness Narrative* Goyo Cheng MD - 08/12/2023 1:31 PM EST Chief complaint: Left hip pain. History of present illness: Patient is well-known to myself. History of hip infection and subsequent revision total hip arthroplasty. Overall doing well until the last few weeks. Has been having somelateral hip pain. States this started after working out on a regular basis. He stopped and it settled down. Has been using Tylenol. Comes in today for evaluation. Also using cane once again. For the patient's past medical history, past surgical history, medications, allergies, family history, social history, and review of systems please refer to medical history in chart. Physical exam: The patient is alert and oriented no acute distress. Answers questions appropriate. Has a normal affect. Antalgic Trendelenburg gait left side. Examination left lower extremity shows no pain with internal/external rotation of the hip. Tenderness palpation over greater trochanter and gluteus medius tendon. No signs of infection. No instability. Imaging: Please refer to the radiographic interpretation Assessment: #1 left total hip arthroplasty. #2 osteomyelitis left femur. #3 trochanteric bursitis left hip. Plan this time we will treat this conservatively. I do think he has bursitis and tendinitis. We discussed topical medications as he is unable to take oral anti-inflammatory medications. He will continue to exercise as he feels comfortable. He did have an increase in his activity level which may beadding to his symptoms. I will see him back in 3 months. If his symptoms do not resolve, he is to contact our office and I will see him sooner. Their questions were answered. documented in this encounterHighland [facility] Hospital11-13-2023 Miscellaneous Notes* Telephone Encounter - Louise Grider - 08/11/2023 2:37 PM EST Called PT back to schedule a follow up. PT said he has a feeling of vibration when sitting, has trouble sitting with pain and had to stop going to the gym currently. Scheduled 08/12/23 1:15 PM Louise Grider ----- Message from Rosy Charles sent at 08/11/2023 10:39 AM EST ----- Regarding: Ortho/ [Goyo Cheng MD]/ Message Subject Line Format: Ortho/ [Goyo Cheng MD]/ Message Patient has been identified by name and Date of (Y/N): y Patient: Dale Sarabia Date of : 1955 Previous Provider Seen: Dr. Cheng Body Part(s) Identified: left hip Diagnosis/Reason For Visit: pain Reason for the call/escalation: message, pt states he was told if he ever had any problems that told him to call the office, he states that he called and spoke with someone 2 weeks ago regarding the left hip and no one has called him back, he is very concerned about his left hip. If reason for call/escalation is discharge from ED/ER or Hospital, which facility was the patient seen at: n/a Was an appointment scheduled (Y/N): n Person calling if other than patient: no Return call to if other than patient: no Best contact number: [phone] Thank you, Rosy Charles August 11, 2023 10:40 AM documented in this encounterHighland [facility] Hospital08-23-2023 Miscellaneous Notes* Telephone Encounter - Margaret Walker LPN - 05/21/2023 11:22 AM EDT Patient is taking Hydrea 500 mg one capsule once daily. Margaret Walker LPN * Telephone Encounter - Moses Jordan DO - 05/20/2023 9:03 PM EDT Verify if taking 1 or 2 capsules daily. Moses Jordan DO * Telephone Encounter - Larisa Dunbar - 05/20/2023 9:24 AM EDT Patient has been identified by name and date of : Yes Last office visit in this department: 05/25/2013 RX INSTRUCTIONS: Patient aware RX will be sent to pharmacy. No need to notify patient. Patient phones requesting refills as follows: Requested Prescriptions Pending Prescriptions Disp Refills hydroxyurea (HYDREA) 500 mg capsule 90 capsule 3 Sig: Take 1 capsule by mouth once daily. Please review and advise. Larisa Cardenas documented in this encounterHighland [facility] Hospital08-15-2023 History of Present illness Narrative* Goyo Cheng MD - 05/13/2023 1:13 PM EDT Chief complaint: Follow-up left total hip arthroplasty for femoral osteomyelitis. History of present illness: Patient is well-known to myself. History of revision total hip arthroplasty for femoral osteomyelitis. Overall doing well. Walks at home without a cane. When he is out of the house he does walk with a cane. Still lacking confidence. Does go to the gym. He has occasional pains in his leg especially after the gym. On antibiotics per infectious disease. For the patient's past medical history, past surgical history, medications, allergies, family history, social history, and review of systems please refer to medical history in chart. Physical exam: The patient is alert and oriented no acute distress. Answers questions appropriate. Has a normal affect. Examination shows him to be ambulatory with a cane. Improving strength. Satisfactory alignment. No instability. Imaging: Please refer to the radiographic interpretation Assessment: #1 left total hip arthroplasty. #2 osteomyelitis left femur. Plan: At this time he is doing very well. He will continue with his antibiotics per infectious disease. He will continue to be weight-bear as tolerated. We did discuss golfing. We discussed potentialdislocations. I will see him back in 6 months. If there is any questions or concerns prior to this next encounter, he will contact the office. If he has any changes in his symptoms he will contact our office. Their questions were answered. documented in this encounterHighland [facility] Hospital08-08-2023 Miscellaneous Notes* Telephone Encounter - Pan Sanderson - 05/06/2023 10:09 AM EDT Spoke with patient on the phone today. Patient is active with Medicare A & B along with [place] Medicare Supplement. Patient financial responsibility is $0 for each treatment in 2022 since there is no OOP to be reached. Patient stated understanding. PT stated that he and his also take care of a handicapped adult child living at home with them. He also stated taking care of another adult child living outside of the home with two small children of her own. He provides financial assistance to both. documented in this encounterHighland [facility] Hospital08-02-2023 Miscellaneous Notes* Telephone Encounter - Roxane Kumar MA - 04/30/2023 3:24 PM EDT Images from the original note were not included. Result Care Coordination Result Notes and Patient Communication Edit Comments Add Notifications Back to Top Please let the patient know that BMP results are within normal limits and the kidney function has improved. Written by Linsey Garber MD on 04/30/2023 8:17 AM EDT Pt called and notified Roxane Kumar CMA April 30, 2023 3:25 PM documented in this encounterHighland [facility] Hospital08-01-2023 Instructions* Patient Instructions* Linsey Garber MD - 04/29/2023 1:42 PM EDT - to go to lab today - continue doxycycline bid - fu after 6 months documented in this encounterHighland [facility] Hospital08-01-2023 History of Present illness Narrative* Linsey Garber MD - 04/29/2023 1:23 PM EDT INFECTIOUS DISEASES OUTPATIENT FOLLOW-UP NOTE SERVICE DATE: 04/29/2023 Subjective INTERVAL HPI : This is a follow up visit. Currently on doxycycline 100 mg p.o. twice daily for chronic suppression of MRSA from left hip prosthetic joint infection. Endorses some nausea intermittently. No vomiting. No abdominal pain. Left hip surgical wound remains well-healed with no increase in pain. No fever or chills. No diarrhea. No new skin rash. ROS completed x14 and only pertinent data documented, the rest is negative except as documented above MEDICATIONS: Current Outpatient Medications Medication Sig furosemide (LASIX) 40 mg tablet Take 40 mg by mouth once daily. doxycycline monohydrate (MONODOX) 100 mg capsule Take 1 capsule by mouth twice daily. aspirin, enteric coated (ASPIRIN, ENTERIC COATED) 81 mg EC tablet Take 1 tablet by mouth twice daily for 21 days. (Patient taking differently: Take 81 mg by mouth once daily.) busPIRone (BUSPAR) 5 mg tablet Take 5 mg by mouth twice daily. simethicone, chewable (MYLICON) 80 mg chewable tablet Take 80 mg by mouth three times daily with meals. PRN tamsulosin (FLOMAX) 0.4 mg Take by mouth daily at bedtime. sodium chloride (AYR, OCEAN) 0.65 % nasal spray Use in the nose as needed. levothyroxine (SYNTHROID) 100 mcg tablet Take 200 mcg by mouth once daily. metFORMIN (GLUCOPHAGE) 500 mg tablet Take 500 mg by mouth twice daily with meals. glipiZIDE (GLUCOTROL XL) 5 mg 24 hr tablet Take 5 mg by mouth once daily. hydroxyurea (HYDREA) 500 mg capsule Take 1 capsule by mouth once daily. (Patient taking differently: Take 500 mg by mouth twice daily.) gabapentin (NEURONTIN) 100 mg capsule Take one capsule in AM, one capsule at 1PM & three capsules at bedtime. TOPROL XL 25 mg 24 hr tablet Take 25 mg by mouth once daily. Amoxicillin 500 mg tablet Take 4 tablets 1 hour prior to dental procedure. (Patient not taking: Reported on 04/29/2023) No current facility-administered medications for this visit. Objective Social History Tobacco Use Smoking status: Former Packs/day: 0.50 Years: 15.00 Total pack years: 7.50 Types: Cigarettes Quit date: 02/20/1985 Years since quittin.2 Smokeless tobacco: Never Vaping Use Vaping Use: Never used Substance Use Topics Alcohol use: No Drug use: No FAMILY HISTORY Problem Relation Age of Onset Coronary Artery Disease Mother first disease age 70's Diabetes Mother Asthma Brother Prostate Cancer Other none Colon Cancer Other none Diabetes Sister Diabetes Brother PHYSICAL EXAM BP 108/63 Pulse 74 Temp (Src) 98 (Temporal) Resp 16 Ht 5' 7 (1.70m) Wt 250 lb 6.4 oz (113.6kg) SpO2 97[Room Air]% BMI 39.21 kg/(m^2). PSYCHIATRIC: no apparent distress, oriented to time, place and person SKIN: no rashes, no ulcers, no pressure ulcers EYES: no scleral icterus, no conjunctivitis HEENT: normal inspection of teeth, lips, gums, and oropharynx NECK: normal appearance, normal movement RESPIRATORY: symmetrical chest expansion and respiratory effort, clear to auscultation CARDIOVASCULAR: S1, S2, no murmurs, no gallops, no rubs, no edema ABDOMINAL: soft, non-distended, non-tender MUSCULOSKELETAL: normal muscle strength, normal muscle tone EXTREMITIES: Within normal limits Left hip surgical wound well-healed with no surrounding erythema or induration. NEUROLOGICAL: nonfocal DIAGNOSTICS REVIEWED/OPAT LABS REVIEWED PERTINENT LABS CBC: WBC 6.36 02/14/2023 Hemoglobin 12.9 02/14/2023 HCT 38.2 02/14/2023 PLT 200 02/14/2023 CMP: Sodium 139 01/09/2023 Potassium 4.1 01/09/2023 BUN 23 01/09/2023 Creatinine 1.23 01/09/2023 Glucose 119 01/09/2023 Creatinine clearance: Serum creatinine: 1.23 mg/dL (H) 01/09/23 1210 Estimated creatinine clearance: 67.3 mL/min (A) INFLAMMATORY MARKERS Sed Rate/CRP: Sed Rate, Westergren 117 09/28/2022 CRP <0.3 01/09/2023 CRP 3.3 11/10/2022 CRP 2.3 11/03/2022 CRP 11.9 10/27/2022 CRP 7.1 10/20/2022 CRP 3.8 10/13/2022 CRP 21.7 09/28/2022 PERTINENT MICROBIOLOGY Reviewed, see micro PERTINENT RADIOLOGY REPORTS Reviewed Impression/Recommendations Dale Sarabia is a 68 year old male with COPD, prior RCC, s/p partial right nephrectomy, diabetes mellitus, and MRSA infection of left hip and acetabular osteomyelitis, s/p [place] hip joint resection and antibiotic spacer placement 09/30/2022, followed by removal of the spacer and conversion to total hip arthroplasty 11/22/2022, posterior pelvic abscess deep anterior pelvic abscess, s/p I&D and right elbow chronic wound. Chronic suppression of MRSA from left hip Left acetabular osteomyelitis, left septic hip arthritis, posterior pelvic abscess MRSA infection, currently on chronic suppression with doxycycline history of Right elbow wound Elevated creatinine 1.2 on 01/09/2023, likely secondary to Bactrim Estimated Creatinine Clearance: 67.3 mL/min (A) (based on SCr of 1.23 mg/dL (H)). -- Continue doxycycline 100 mg p.o. twice daily, to take it only after food, with a glass full of water, and do not lie supine for 2 hours after doxycycline. -- Recheck BMP today -- ID clinic follow-up after 6 months -- To continue doxycycline at least for 1 year since the last day of surgery on 11/22/2022, followedthereafter by 100 mg p.o. daily to continue indefinitely MEDICAL DECISION MAKING: I have spent 25 minutes with this patient, >50% of time spent in a face to face encounter. This included time spent on counseling including lab results, diagnostic testing, medications, further management planning, prognosis, risks and benefits of treatment options. All questions were answered to the patient and/or family members satisfaction. SIGNATURE: Linsey Garber MD PATIENT NAME: Dale Sarabia DATE: April 29, 2023 TIME: 1:34 PM documented in [facility] Frost [facility] March 13, 2023 12:59pm Note Date/Time March 13, 2023 11:2 4am [facility] [address] [place] [address] Progress Note - Wound Care 03/13/23 1122 MR#: [id number] Acct: [id number] Name: DALE SARABIA Rep #:[id number] : 1955 68 From: Jyoti hayden MD PCP: Dr. Mohinder Quick MD Status:REG RCR Location: History of Present Illness Date of Service: 03/13/23 Chief Complaint: Right Elbow Ulcer History of Wound: Mr. Sarabia is a 68-year-old who was referred to the wound center due to nonhealing right elbow ulcer. Initially started in 2013. An areaof swelling on his right elbow which subsequently opened up. Was seen at the wound center then, had imaging but he is not sure what exactly the imaging showed. Did not see Ortho surgeon, no known history of gout. Recent opening noted 6 months ago following a fall and has not healed since then. Previously, with reopening he had been able to manage it at home by himself. Occasional draining from the site but not significant. On chronic antibiotic for MRSA hip infection. History of Type 2 DM which is well controlled. Most recent A1C said to be 5. He feels well otherwise and has no acute concerns. Progress of Wound: No new concerns at this time, healed. Objective Data Objective Data Vital Signs: Vital Signs Temp Pulse Resp BP O2 Del Method 97.4 F L 72 16 113/52 L Room Air 02/27/23 10:53 02/27/23 10:53 02/27/23 10:53 02/27/23 10:53 02/27/23 10:53 Oxygen Delivery Method Room Air Weight: 230 lb Body Mass Index (BMI) 34.9 Charges/Coding Visit Charges Office Visits / Consults: 67549 OV L3 Est Physical Exam Const alert, oriented x3 and no apparent distress General Appearance: cooperative and comfortable HEENT normocephalic and head/scalp atraumatic Eyes EOMs intact bilaterally Neck full ROM and supple General: normal visual inspection Resp normal respiratory effort Effort and Inspection: able to speak in complete sentences Neuro oriented x3, CN's II-XII intact bilaterally, moves all extremities and no focal motor deficits Psych mental status grossly normal, thought process normal, cooperative and affect normal Debridement Note Debridement Note Post-Debridement Measurements and Additional Note: Post-Debridement Measurements/Treatment - Nurse 1 - General Ulcer Assessment Start: 02/27/23 10:53 Freq: Status: Active Protocol: YOLANDA Activity Type Activity Date Activity User E-sign Co-sign Detail Recorded Client Recorded Date Recorded By Document 02/27/23 10:53 [facility] [id number] 02/27/23 10:59 [facility] 02/27/23 10:53 - Today's Visit Information Type of service Follow-up Visit (Physician/TELEVISION SPECIALIST ) Arrival Mode Ambulatory Transfer Assistance None Patient Identification Verified (Name & Yes ) Patient Requires Transmission-Based No Precautions Height and Weight Body Mass Index (BMI) 34.9 BMI Classification Obese Vital Signs Temperature (97.8 F-99.1 F) 97.4 F L Temperature Source Temporal Pulse Rate (60-100) 72 Pulse Location Monitor Respiratory Rate (12-18) 16 Respiratory rate source Observation Oxygen Delivery Method Room Air Blood Pressure (90/60-120/80) 113/52 L Blood Pressure Mean (mm Hg) 72 Source Monitor Position Sitting Blood Pressure Location Left Arm History Since Last Visit- (Skip if this is Patient's initial visit) Have you changed medications since your No last visit? Any new allergies or adverse reactions No Had a fall/change in ADL's that may No increase risk of falls Signs or symptoms of abuse and/or No neglect since last visit Have you been in the hospital since your No last visit? Has dressing in place as prescribed Yes Has compression in place as prescribed N/A Has offloadiing in place as prescribed N/A Experienced any changes in pain level or No management Left Footwear Regular Shoe Right Footwear Regular Shoe Pain Scale: 0-10 Numeric Is Patient Pain Free? Yes WC - Nurse 1 - General Ulcer Measurement Start: 02/27/23 10:53 Freq: Status: Active Protocol: Activity Type Activity Date Activity User E-sign Co-sign Detail Recorded Client Recorded Date Recorded By Document 02/27/23 10:53 [facility] [id number] 02/27/23 10:59 [facility] 02/27/23 10:53 Wound Center Nurse 1 #1- R ELBOW -Combined with other wound No -Current Size (cm) - Length 0.1 -Current Size (cm) - Width 0.1 -Current Size (cm) - Depth 0.1 -Total Square Cm 0.01 -Date of Last Picture (Recall this 02/27/23 field) -Photo Taken Yes -Epithelialization Large 67-100% -Tunneling No -Undermining/Tunneling No -Circular Undermining No -Exudate Amt None Present -Texture (Nyasia-wound Skin Appearance) Assessed, Scarring -Moisture (Nyasia-wound Skin Appearance) Assessed -Color (Nyasia-wound Skin Appearance) Assessed -Temperature (Nyasia-wound Skin No Abnormality Appearance) (Pt Warm) -Tenderness on Palpation (Nyasia-wound No Skin Appearance) -Ulcer Cleansing Rinsed/ Irrigated with Saline -Foul Odor after Cleansing No WC - Nurse 2 - General Ulcer CM Notes Start: 02/27/23 10:53 Freq: Status: Active Protocol: Activity Type Activity Date Activity User E-sign Co-sign Detail Recorded Client Recorded Date Recorded By Document 02/27/23 11:06 MW [id number] 02/27/23 11:08 MW Document 03/13/23 11:13 MW Desktop 03/13/23 11:14 MW 02/27/23 03/13/23 11:06 11:13 Wound Center Nurse 2 #1- R ELBOW -Time 11:06 11:13 -Correct Patient Yes Yes -Correct Side, Site, Position Yes Yes -Correct Procedure Yes Yes -Procedure Performed No No -Post Debridement (cm) - Length 0.1 0 -Post Debridement (cm) - Width 0.1 0 -Post Debridement (cm) - Depth 0.1 0 -Total Square (Post) (cm) 0.01 0 -Wound/Ulcer Outcome Not Healed Healed- Epithelialized -Ulcer Cleansing Rinsed/ Irrigated with Saline -Foul Odor after Cleansing No -Bioengineered Tissue No -Bleeding Controlled with Pressure -Treatment Response Procedure Tolerated Well -Offloading No Pain Scale: 0-10 Numeric Is Patient Pain Free? Yes Yes - Nurse 3 - General Ulcer D/C NN Start: 02/27/23 10:53 Freq: Status: Active Protocol: Activity Type Activity Date Activity User E-sign Co-sign Detail Recorded Client Recorded Date Recorded By Document 02/27/23 11:08 MW [id number] 02/27/23 11:09 MW Document 03/13/23 11:14 MW Desktop 03/13/23 11:15 MW 02/27/23 03/13/23 11:08 11:14 Wound Care Center Nurse 3 #1- R ELBOW -Ulcer Cleansing Rinsed/ Not Cleansed Irrigated with Saline -Foul Odor after Cleansing No -Negative Pressure Wound Therapy N/A -Primary Dressing Applied Mepilex Border, Mepilex Border Promogran -Mepilex Border 1 1 -Promogran 1 Treatment Response Procedure Procedure Tolerated Well Tolerated Well Pain Scale: 0-10 Numeric Is Patient Pain Free? Yes Yes Teaching: Wound Center Dressing Your Wound -Person Taught Patient Patient -Teaching Method Discussion, Discussion Demonstration -Response to teaching Return Verbalize demonstration understanding WC - Visit Discharge Discharge Condition Stable Stable Ambulatory Status Ambulatory,Cane Ambulatory,Cane Transportation Private Auto Private Auto Accompanied by SELF self Medication Reconcilliation completed & No No provided to patient/care provider Clinical Summary of Care Provided Yes Yes Assessment/Plan Assessment/Plan (1) Decubitus ulcer of right elbow, stage 3: CODE(S): L89.013 - Pressure ulcer of right elbow, stage 3 (2) Type II diabetes mellitus: CODE(S): E11.9 - Type 2 diabetes mellitus without complications PLAN: Plan No debridement completed today, healed. Vaseline and foam dressing for a month. Avoid pressure to the area. His questions were answered and he was advised to call with any further questions or concerns. Discharge from the wound center. This note was generated with [employer] / [employer] software. It may contain incorrectwords, spelling, and punctuation that were not noted in checking the note beforesigning. 03/13/23 1259 <Electronically signed by Jyoit Frost MD> Cosigner Signature (if applicable): CC: ~ Signed [facility] Work Phone: 1(385) 756-701106-14-2023 Miscellaneous Notes* Telephone Encounter - Margaret Walker LPN - 03/12/2023 10:14 AM EDT Order faxed. Margaret Walker LPN * Telephone Encounter - Rula Alonso APRN.CNP - 03/12/2023 10:02 AM EDT Done. Rula Alonso APRN.LEIGH * Telephone Encounter - Margaret Walker LPN - 03/11/2023 3:21 PM EDT Please file lab order and I will fax to [facility]. Margaret Walker LPN * Telephone Encounter - Delmy Dillon - 03/11/2023 3:09 PM EDT Spoke with patient and scheduled. Please fax CBC order to [facility] as patient already has a lab appointment there in April. Delmy Dillon * Telephone Encounter - Margaret Walker LPN - 03/11/2023 1:28 PM EDT PSS- please schedule as directed. Margaret Walker LPN * Telephone Encounter - Margaret Walker LPN - 03/11/2023 12:50 PM EDT [employer] message sent. I also left a message on patient's VM asking that he contact the office for questions. Margaret Walker LPN * Telephone Encounter - Jenny Zamorano LPN - 03/10/2023 8:55 AM EDT He does not need a phlebo unless he meets the parameters. He will be scheduled for cbc with possible phlebo. He can get his cholesterol checked on the same day as CBC if it is time for his CBC here. But he isn't due for a CBC until April. Jenny Zamorano LPN * Telephone Encounter - Larisa Carter Pss - 03/10/2023 8:33 AM EDT Spoke with patient and he stated he is always within range. He is asking for a reason for phlebo. He states he is willing to do them, would like to know why that would be something he would need. He also stated he was informed to have cholesterol checked. He states he is coming in for other labwork for another provider and would like lab order added. * Telephone Encounter - Rula Alonso APRN.TELEVISION SPECIALIST - 03/07/2023 2:56 PM EDT Discussed plan with Dr. Jordan. CBC/poss phlebo every [address] Jordan in one year with CBC. Thank you. Rula Alonso APRN.TELEVISION SPECIALIST documented in this [facility]06-[facility]-[address] Frost [facility] February 27, 2023 11:12am Note Date/Time February 27, 2023 11:12 am [facility] [address] [place] [address] Progress Note - Wound Care 02/27/23 1109 MR#: [id number] Acct: [id number] Name: DALE SARABIA Rep #:[id number] : 1955 68 From: Jyoti hayden MD PCP: Dr. Mohinder Quick MD Status:REG RCR Location: History of Present Illness Date of Service: 02/27/23 Chief Complaint: Right Elbow Ulcer History of Wound: Mr. Sarabia is a 68-year-old who was referred to the wound center due to nonhealing right elbow ulcer. Initially started in 2013. An areaof swelling on his right elbow which subsequently opened up. Was seen at the wound center then, had imaging but he is not sure what exactly the imaging showed. Did not see Ortho surgeon, no known history of gout. Recent opening noted 6 months ago following a fall and has not healed since then. Previously, with reopening he had been able to manage it at home by himself. Occasional draining from the site but not significant. On chronic antibiotic for MRSA hip infection. History of Type 2 DM which is well controlled. Most recent A1C said to be 5. He feels well otherwise and has no acute concerns. Progress of Wound: No new concerns at this time. Still very minimal area left. At his last visit,he was advised to apply moistened Promogran to the ulcer but has been applying iodoform just over it instead. He states that he has had no drainage since his last visit. Objective Data Objective Data Vital Signs: Vital Signs Temp Pulse Resp BP O2 Del Method 97.4 F L 72 16 113/52 L Room Air 02/27/23 10:53 02/27/23 10:53 02/27/23 10:53 02/27/23 10:53 02/27/23 10:53 Oxygen Delivery Method Room Air Weight: 230 lb Body Mass Index (BMI) 34.9 Charges/Coding Visit Charges Office Visits / Consults: 96169 OV L3 Est Physical Exam Const alert, oriented x3 and no apparent distress General Appearance: cooperative and comfortable HEENT normocephalic and head/scalp atraumatic Eyes EOMs intact bilaterally Neck full ROM and supple General: normal visual inspection Resp normal respiratory effort Effort and Inspection: able to speak in complete sentences Skin Wounds: wounds noted Neuro oriented x3, CN's II-XII intact bilaterally, moves all extremities and no focal motor deficits Psych mental status grossly normal, thought process normal, cooperative and affect normal Debridement Note Debridement Note Post-Debridement Measurements and Additional Note: Post-Debridement Measurements/Treatment - Nurse 1 - General Ulcer Assessment Start: 02/27/23 10:53 Freq: Status: Active Protocol: CHRIS.LOWKARINT Activity Type Activity Date Activity User E-sign Co-sign Detail Recorded Client Recorded Date Recorded By Document 02/27/23 10:53 [facility] [id number] 02/27/23 10:59 [facility] 02/27/23 10:53 - Today's Visit Information Type of service Follow-up Visit (Physician/TELEVISION SPECIALIST ) Arrival Mode Ambulatory Transfer Assistance None Patient Identification Verified (Name & Yes ) Patient Requires Transmission-Based No Precautions Height and Weight Body Mass Index (BMI) 34.9 BMI Classification Obese Vital Signs Temperature (97.8 F-99.1 F) 97.4 F L Temperature Source Temporal Pulse Rate (60-100) 72 Pulse Location Monitor Respiratory Rate (12-18) 16 Respiratory rate source Observation Oxygen Delivery Method Room Air Blood Pressure (90/60-120/80) 113/52 L Blood Pressure Mean (mm Hg) 72 Source Monitor Position Sitting Blood Pressure Location Left Arm History Since Last Visit- (Skip if this is Patient's initial visit) Have you changed medications since your No last visit? Any new allergies or adverse reactions No Had a fall/change in ADL's that may No increase risk of falls Signs or symptoms of abuse and/or No neglect since last visit Have you been in the hospital since your No last visit? Has dressing in place as prescribed Yes Has compression in place as prescribed N/A Has offloadiing in place as prescribed N/A Experienced any changes in pain level or No management Left Footwear Regular Shoe Right Footwear Regular Shoe Pain Scale: 0-10 Numeric Is Patient Pain Free? Yes WC - Nurse 1 - General Ulcer Measurement Start: 02/27/23 10:53 Freq: Status: Active Protocol: Activity Type Activity Date Activity User E-sign Co-sign Detail Recorded Client Recorded Date Recorded By Document 02/27/23 10:53 [facility] [id number] 02/27/23 10:59 [facility] 02/27/23 10:53 Wound Center Nurse 1 #1- R ELBOW -Combined with other wound No -Current Size (cm) - Length 0.1 -Current Size (cm) - Width 0.1 -Current Size (cm) - Depth 0.1 -Total Square Cm 0.01 -Date of Last Picture (Recall this 02/27/23 field) -Photo Taken Yes -Epithelialization Large 67-100% -Tunneling No -Undermining/Tunneling No -Circular Undermining No -Exudate Amt None Present -Texture (Nyasia-wound Skin Appearance) Assessed, Scarring -Moisture (Nyasia-wound Skin Appearance) Assessed -Color (Nyasia-wound Skin Appearance) Assessed -Temperature (Nyasia-wound Skin No Abnormality Appearance) (Pt Warm) -Tenderness on Palpation (Nyasia-wound No Skin Appearance) -Ulcer Cleansing Rinsed/ Irrigated with Saline -Foul Odor after Cleansing No CHRIS - Nurse 2 - General Ulcer CM Notes Start: 02/27/23 10:53 Freq: Status: Active Protocol: Activity Type Activity Date Activity User E-sign Co-sign Detail Recorded Client Recorded Date Recorded By Document 02/27/23 11:06 [id number] 02/27/23 11:08 MW 02/27/23 11:06 Wound Center Nurse 2 -Time 11:06 -Correct Patient Yes -Correct Side, Site, Position Yes -Correct Procedure Yes -Procedure Performed No -Post Debridement (cm) - Length 0.1 -Post Debridement (cm) - Width 0.1 -Post Debridement (cm) - Depth 0.1 -Total Square (Post) (cm) 0.01 -Wound/Ulcer Outcome Not Healed -Ulcer Cleansing Rinsed/ Irrigated with Saline -Foul Odor after Cleansing No -Bioengineered Tissue No -Bleeding Controlled with Pressure -Treatment Response Procedure Tolerated Well -Offloading No Pain Scale: 0-10 Numeric Is Patient Pain Free? Yes WC - Nurse 3 - General Ulcer D/C NN Start: 02/27/23 10:53 Freq: Status: Active Protocol: Activity Type Activity Date Activity User E-sign Co-sign Detail Recorded Client Recorded Date Recorded By Document 02/27/23 11:08 MW [id number] 02/27/23 11:09 MW 02/27/23 11:08 Wound Care Center Nurse 3 #1- R ELBOW -Ulcer Cleansing Rinsed/ Irrigated with Saline -Foul Odor after Cleansing No -Negative Pressure Wound Therapy N/A -Primary Dressing Applied Mepilex Border, Promogran -Mepilex Border 1 -Promogran 1 Treatment Response Procedure Tolerated Well Pain Scale: 0-10 Numeric Is Patient Pain Free? Yes Teaching: Wound Center Dressing Your Wound -Person Taught Patient -Teaching Method Discussion, Demonstration -Response to teaching Return demonstration WC - Visit Discharge Discharge Condition Stable Ambulatory Status Ambulatory,Cane Transportation Private Auto Accompanied by SELF Medication Reconcilliation completed & No provided to patient/care provider Clinical Summary of Care Provided Yes Assessment/Plan Assessment/Plan (1) Decubitus ulcer of right elbow, stage 3: CODE(S): L89.013 - Pressure ulcer of right elbow, stage 3 (2) Type II diabetes mellitus: CODE(S): E11.9 - Type 2 diabetes mellitus without complications PLAN: Plan No debridement completed today, still minimal area left. Apply moistened Promogran over top, continue foam dressing. Change daily. Optimal protein intake and diabetes control. Avoid consistent pressure to the right elbow. Hisquestions were answered and he was advised to call with any further questions orconcerns. Follow-up in 2 weeks or sooner if needed. This note was generated with [employer] / [employer] software. It may contain incorrectwords, spelling, and punctuation that were not noted in checking the note beforesigning. 02/27/23 1112 <Electronically signed by Jyoti Frost MD> Cosigner Signature (if applicable): CC: ~ Signed [facility] Work Phone: 1(723) 353-615005-25-[address] Frost [facility] February 20, 2023 9:54am Note Date/Time February 20, 2023 9:52a m [facility] [address] [place] [address] Progress Note - Wound Care 02/20/23 0949 MR#: [id number] Acct: [id number] Name: DALE SARABIA Rep #:[id number] : 1955 68 From: Jyoti hayden MD PCP: Dr. Mohinder Quick MD Status:REG RCR Location: History of Present Illness Date of Service: 02/20/23 Chief Complaint: Right Elbow Ulcer History of Wound: Mr. Sarabia is a 68-year-old who was referred to the wound center due to nonhealing right elbow ulcer. Initially started in 2013. An areaof swelling on his right elbow which subsequently opened up. Was seen at the wound center then, had imaging but he is not sure what exactly the imaging showed. Did not see Ortho surgeon, no known history of gout. Recent opening noted 6 months ago following a fall and has not healed since then. Previously, with reopening he had been able to manage it at home by himself. Occasional draining from the site but not significant. On chronic antibiotic for MRSA hip infection. History of Type 2 DM which is well controlled. Most recent A1C said to be 5. He feels well otherwise and has no acute concerns. Progress of Wound: Significant improvement in the past week. Minimal area left. Has had difficulty with packing wound Objective Data Objective Data Vital Signs: Vital Signs Temp Pulse Resp BP O2 Del Method 97.4 F L 74 18 122/50 H Room Air 02/20/23 08:54 02/20/23 08:54 02/20/23 08:54 02/20/23 08:54 02/13/23 11:47 Oxygen Delivery Method Room Air Weight: 230 lb Body Mass Index (BMI) 34.9 Lab / Micro Data Micro: Microbiology 02/06/23 10:00 Wound Abcess - Elbow Gram Stain - Final 02/06/23 10:00 Wound Abcess - Elbow Wound Culture - Final Staphylococcus epidermidis 02/06/23 10:00 Wound Abcess - Elbow Anaerobic Culture - Final No anaerobic bacteria isolated. Charges/Coding Visit Charges Office Visits / Consults: 32032 OV L3 Est Physical Exam Const alert, oriented x3 and no apparent distress General Appearance: cooperative and comfortable HEENT normocephalic and head/scalp atraumatic Eyes EOMs intact bilaterally Neck full ROM and supple General: normal visual inspection Resp normal respiratory effort Effort and Inspection: able to speak in complete sentences Skin Wounds: wounds noted Neuro oriented x3, CN's II-XII intact bilaterally, moves all extremities and no focal motor deficits Psych mental status grossly normal, thought process normal, cooperative and affect normal Debridement Note Debridement Note Post-Debridement Measurements and Additional Note: Post-Debridement Measurements/Treatment - Nurse 1 - General Ulcer Assessment Start: 01/30/23 09:21 Freq: Status: Active Protocol: YOLANDA Activity Type Activity Date Activity User E-sign Co-sign Detail Recorded Client Recorded Date Recorded By Document 01/30/23 09:28 [facility] [id number] 01/30/23 09:39 [facility] Document 01/31/23 13:20 JF [id number] 01/31/23 13:28 JF Document 02/06/23 09:29 RB [id number] 02/06/23 09:31 RB Document 02/13/23 11:47 [facility] [id number] 02/13/23 11:52 [facility] Document 02/20/23 08:54 DL [id number] 02/20/23 08:59 DL 01/30/23 01/31/23 02/06/23 09:28 13:20 09:29 - Today's Visit Information Type of service Initial Visit Nurse-only Follow-up Visit Visit (Physician/TELEVISION SPECIALIST ) Arrival Mode Ambulatory,Cane Ambulatory Ambulatory Transfer Assistance None None Patient Identification Verified (Name & Yes Yes Yes ) Patient Requires Transmission-Based No No No Precautions Finger Stick Blood Sugar(mg/dl) (if indicated): Blood Sugar Height and Weight Height 5 ft 8 in Weight 230 lb Weight in Pounds 230.0 lbs Weight Measurement Method Estimated by Patient Body Mass Index (BMI) 34.9 34.9 34.9 BMI Classification Obese Obese Obese BSA - Art 2.17 Vital Signs Temperature (97.8 F-99.1 F) 98 F 97.6 F L 97 F L Temperature Source Temporal Temporal Temporal Pulse Rate (60-100) 71 70 71 Pulse Location Monitor Monitor Monitor Respiratory Rate (12-18) 16 18 18 Respiratory rate source Observation Observation Observation Oxygen Delivery Method Room Air Blood Pressure (90/60-120/80) 127/62 H 148/68 H 149/71 H Blood Pressure Mean (mm Hg) 83 94 97 Source Monitor Monitor Monitor Position Sitting Semi-Fowlers Semi-Fowlers Blood Pressure Location Left Arm Left Arm Left Arm History Since Last Visit- (Skip if this is Patient's initial visit) Have you changed medications since your No last visit? Any new allergies or adverse reactions No Had a fall/change in ADL's that may No increase risk of falls Signs or symptoms of abuse and/or No neglect since last visit Have you been in the hospital since your No last visit? Has dressing in place as prescribed Yes Has compression in place as prescribed No Has offloadiing in place as prescribed No Experienced any changes in pain level or No management Left Footwear Regular Shoe Right Footwear Regular Shoe Pain Scale: 0-10 Numeric Is Patient Pain Free? Yes Yes Yes Communication Assessment Preferred language [place] Sports Marketing Internship Required No Able to Read Yes Able to Write Yes Communication Tools None Right Hearing Abillity Hard of Hearing ,Use of Hearing Aid Left Hearing Abillity Hard of Hearing ,Use of Hearing Aid Visual Assistive Devices Glasses Teaching Assessment Preferences Verbal,Written, Audio/Visual, Demonstration Barriers to Learning None Readiness To Learn Excellent Willingness to Engage in Self Management High Activies Readiness to Engage in Self Management High Activities Anxiety Level Calm Cooperation Cooperative Perception Coherent Interest in Health Problem Asks Questions Education Importance Acknowledges Need Does Patient Smoke tobacco or other No substances Smoking Status Never smoker Is Patient Diabetic Yes Functional Assessment Recent Decline in Ability to Perform Denies Any Declines Culture/Jain/Artist Relationship Manager Cultural/Jain Needs that may affect No Treatment Plan Teaching: Wound Center *Welcome to the Wound Center -Person Taught Patient -Teaching Method Discussion -Response to teaching Verbalize understanding Welcome to the Wound Care Center [place] 02/13/23 02/20/23 11:47 08:54 WC - Today's Visit Information Type of service Follow-up Visit Follow-up Visit (Physician/TELEVISION SPECIALIST (Physician/TELEVISION SPECIALIST ) ) Arrival Mode Ambulatory,Cane Ambulatory Transfer Assistance None None Patient Identification Verified (Name & Yes Yes ) Patient Requires Transmission-Based No No Precautions Finger Stick Blood Sugar(mg/dl) (if 144 indicated): Blood Sugar Stated by Patient Height and Weight Height Weight Weight in Pounds Weight Measurement Method Body Mass Index (BMI) 34.9 34.9 BMI Classification Obese Obese [facility] [place] - Art Vital Signs Temperature (97.8 F-99.1 F) 96.3 F L 97.4 F L Temperature Source Temporal Temporal Pulse Rate (60-100) 72 74 Pulse Location Monitor Monitor Respiratory Rate (12-18) 16 18 Respiratory rate source Observation Observation Oxygen Delivery Method Room Air Blood Pressure (90/60-120/80) 136/75 H 122/50 H Blood Pressure Mean (mm Hg) 95 74 Source Monitor Monitor Position Sitting Blood Pressure Location Left Arm History Since Last Visit- (Skip if this is Patient's initial visit) Have you changed medications since your No No last visit? Any new allergies or adverse reactions No No Had a fall/change in ADL's that may No No increase risk of falls Signs or symptoms of abuse and/or No No neglect since last visit Have you been in the hospital since your No No last visit? Has dressing in place as prescribed Yes Yes Has compression in place as prescribed N/A N/A Has offloadiing in place as prescribed N/A N/A Experienced any changes in pain level or No No management Left Footwear Regular Shoe Right Footwear Regular Shoe Pain Scale: 0-10 Numeric Is Patient Pain Free? Yes Yes Communication Assessment Preferred educational speech language clinician Required Able to Read Able to Write Communication Tools Right Hearing Abillity Left Hearing Abillity Visual Assistive Devices Teaching Assessment Preferences Barriers to Learning Readiness To Learn Willingness to Engage in Self Management Activies Readiness to Engage in Self Management Activities Anxiety Level Cooperation Perception Interest in Health Problem Education Importance Does Patient Smoke tobacco or other substances Smoking Status Is Patient Diabetic Functional Assessment Recent Decline in Ability to Perform Culture/Jain/Artist Relationship Manager Cultural/Jain Needs that may affect Treatment Plan Teaching: Wound Center *Welcome to the Wound Center -Person Taught -Teaching Method -Response to teaching Welcome to the Wound Care Center WC - Nurse 1 - General Ulcer Measurement Start: 01/30/23 09:21 Freq: Status: Active Protocol: Activity Type Activity Date Activity User E-sign Co-sign Detail Recorded Client Recorded Date Recorded By Document 01/30/23 09:28 [facility] [id number] 01/30/23 09:39 BM Document 01/31/23 13:20 [id number] 01/31/23 13:28 JF Document 02/06/23 09:29 RB [id number] 02/06/23 09:31 RB Document 02/13/23 11:47 BMF [id number] 02/13/23 11:52 BMF Document 02/20/23 08:54 DL [id number] 02/20/23 08:59 DL 01/30/23 01/31/23 02/06/23 09:28 13:20 09:29 Wound Center Nurse 1 #1- R ELBOW -Combined with other wound No No No -Current Size (cm) - Length 0.3 0.2 -Current Size (cm) - Width 0.2 0.2 -Current Size (cm) - Depth 0.4 0.4 -Total Square Cm 0.06 0.04 -Date of Last Picture (Recall this 01/30/23 field) -Photo Taken Yes No Yes -Epithelialization None Present None Present -Tunneling Yes No -Tunneling Position (O'clock) 12 -Tunneling Distance (cm) 0.9 -Undermining/Tunneling No Yes -Undermining/Tunneling Starts (O'clock 12 ) -Undermining/Tunneling Ends (O'clock) 12 -Maximum Distance (cm) 0.4 -Circular Undermining No No -Exudate Amt Medium Medium Medium -Exudate Type Serous Serosanguineous Serosanguineous -Wound Margin Distinct, Flat & Intact Thickened & Outline Rolled Under Attached -Granulation Amt Small (1-33%) Medium (34-66%) -Granulation Quality Athena Athena -Slough/Fibrin Yes Yes -Necrosis Amt Large (67-100%) Medium (34-66%) -Necrotic Tissue Type Adherent Slough Adherent Slough -Structure Exposed N/A -Texture (Nyasia-wound Skin Appearance) Assessed, Assessed, Localized Edema Localized Edema ,Scarring -Moisture (Nyasia-wound Skin Appearance) Assessed Assessed -Color (Nyasia-wound Skin Appearance) Assessed, Assessed Erythema -Temperature (Nyasia-wound Skin No Abnormality No Abnormality Appearance) (Pt Warm) (Pt Warm) -Tenderness on Palpation (Nyasia-wound No No Skin Appearance) -Ulcer Cleansing Rinsed/ Soap and Water Wound Cleanser Irrigated with Saline -Foul Odor after Cleansing No No No -Anesthetic Used 5% Lidocaine 5% Lidocaine Gel Gel Lower Limb Edema Present NA 02/13/23 02/20/23 11:47 08:54 Wound Center Nurse 1 #1- R ELBOW -Combined with other wound No -Current Size (cm) - Length 0.3 0.1 -Current Size (cm) - Width 0.2 0.1 -Current Size (cm) - Depth 0.6 0.1 -Total Square Cm 0.06 0.01 -Date of Last Picture (Recall this field) -Photo Taken No Yes -Epithelialization Small 1-33% -Tunneling No -Tunneling Position (O'clock) -Tunneling Distance (cm) -Undermining/Tunneling Yes -Undermining/Tunneling Starts (O'clock 10 ) -Undermining/Tunneling Ends (O'clock) 4 -Maximum Distance (cm) 0.5 -Circular Undermining No -Exudate Amt Medium -Exudate Type Serous -Wound Margin Distinct, Outline Attached -Granulation Amt Large (67-100%) Small (1-33%) -Granulation Quality Athena Athena -Slough/Fibrin No -Necrosis Amt None Present (0 None Present (0 %) %) -Necrotic Tissue Type -Structure Exposed N/A -Texture (Nyasia-wound Skin Appearance) Assessed, Scarring Scarring -Moisture (Nyasia-wound Skin Appearance) Assessed, No Abnormality Maceration -Color (Nyasia-wound Skin Appearance) Assessed No Abnormality -Temperature (Nyasia-wound Skin No Abnormality No Abnormality Appearance) (Pt Warm) (Pt Warm) -Tenderness on Palpation (Nyasia-wound No Skin Appearance) -Ulcer Cleansing Rinsed/ Rinsed/ Irrigated with Irrigated with Saline Saline -Foul Odor after Cleansing No No -Anesthetic Used 5% Lidocaine 5% Lidocaine Gel Gel Lower Limb Edema Present WC - Nurse 2 - General Ulcer CM Notes Start: 01/30/23 09:21 Freq: Status: Active Protocol: Activity Type Activity Date Activity User E-sign Co-sign Detail Recorded Client Recorded Date Recorded By Document 01/30/23 10:22 MW [id number] 01/30/23 10:33 MW Document 02/06/23 09:56 MW [id number] 02/06/23 10:01 MW Document 02/13/23 11:56 [id number] 02/13/23 12:00 JF Document 02/20/23 09:08 MW [id number] 02/20/23 09:09 MW 01/30/23 02/06/23 02/13/23 10:22 09:56 11:56 Wound Center Nurse 2 #1- R ELBOW -Time 10:22 09:57 11:56 -Correct Patient Yes Yes Yes -Correct Side, Site, Position Yes Yes Yes -Correct Procedure Yes Yes Yes -Procedure Performed Yes Yes Yes -Type of Procedure Debridement Debridement Debridement -Clinical Debridement Subcutaneous Subcutaneous Subcutaneous -Tissue Removed Subcutaneous Subcutaneous Subcutaneous -Post Debridement (cm) - Length 0.4 0.1 0.4 -Post Debridement (cm) - Width 0.3 0.2 0.3 -Post Debridement (cm) - Depth 0.9 0.8 1.0 -Total Square (Post) (cm) 0.12 0.02 0.12 -Area of Debridement (cm) - Length 0.4 0.1 0.4 -Area of Debridement (cm) - Width 0.3 0.2 0.3 -Total Square (Area) (cm) 0.12 0.02 0.12 -Tunneling Yes Yes Yes -Tunneling Position (O'clock) 12 12 12 -Tunneling Distance (cm) 2.0 1.5 1.6 -Undermining/Tunneling No No No -Circular Undermining Yes Yes Yes -Wound/Ulcer Outcome Not Healed Not Healed Not Healed -Ulcer Cleansing Rinsed/ Rinsed/ Rinsed/ Irrigated with Irrigated with Irrigated with Saline Saline Saline -Foul Odor after Cleansing No No No -Bioengineered Tissue No No No -Bleeding Controlled with Pressure Pressure Pressure -Treatment Response Procedure Procedure Procedure Tolerated Well Tolerated Well Tolerated Well -Offloading No No No -Debridement - Subq, 1st 20sq cm Yes Yes Yes Pain Scale: 0-10 Numeric Is Patient Pain Free? Yes Yes Yes 02/20/23 09:08 Wound Center Nurse 2 #1- R ELBOW -Time 09:08 -Correct Patient Yes -Correct Side, Site, Position Yes -Correct Procedure Yes -Procedure Performed No -Type of Procedure -Clinical Debridement -Tissue Removed -Post Debridement (cm) - Length 0 -Post Debridement (cm) - Width 0 -Post Debridement (cm) - Depth 0 -Total Square (Post) (cm) 0 -Area of Debridement (cm) - Length -Area of Debridement (cm) - Width -Total Square (Area) (cm) -Tunneling -Tunneling Position (O'clock) -Tunneling Distance (cm) -Undermining/Tunneling -Circular Undermining -Wound/Ulcer Outcome Healed- Epithelialized -Ulcer Cleansing -Foul Odor after Cleansing -Bioengineered Tissue -Bleeding Controlled with -Treatment Response -Offloading -Debridement - Subq, 1st 20sq cm Pain Scale: 0-10 Numeric Is Patient Pain Free? Yes WC - Nurse 3 - General Ulcer D/C NN Start: 01/30/23 09:21 Freq: Status: Active Protocol: Activity Type Activity Date Activity User E-sign Co-sign Detail Recorded Client Recorded Date Recorded By Document 01/30/23 10:37 MW [id number] 01/30/23 10:50 MW Document 01/31/23 13:20 JF [id number] 01/31/23 13:28 JF Document 02/13/23 12:15 RB [id number] 02/13/23 12:16 RB Document 02/20/23 09:11 MW [id number] 02/20/23 09:12 MW 01/30/23 01/31/23 02/13/23 10:37 13:20 12:15 Wound Care Center Nurse 3 #1- R ELBOW -Ulcer Cleansing Rinsed/ Rinsed/ Rinsed/ Irrigated with Irrigated with Irrigated with Saline Saline Saline -Foul Odor after Cleansing No No -Negative Pressure Wound Therapy N/A -Primary Dressing Applied Nugauze, Mepilex Border Nugauze, Iodoform 1/4in, Iodoform 1/4in Mepilex Border -Other Dressing iodoform felt apputure packing pad to elbow -Primary Dressing Covered/Secured with Dry Gauze, Secured with Tape -Mepilex Border 2 1 -Nugauze, Iodoform 1/4in 1 1 Treatment Response Procedure Procedure Tolerated Well Tolerated Well Vital Signs Temperature (97.8 F-99.1 F) 97.6 F L Temperature Source Temporal Pulse Rate (60-100) 70 Pulse Location Monitor Respiratory Rate (12-18) 18 Respiratory rate source Observation Blood Pressure (90/60-120/80) 148/68 H Blood Pressure Mean (mm Hg) 94 Source Monitor Position Semi-Fowlers Blood Pressure Location Left Arm Pain Scale: 0-10 Numeric Is Patient Pain Free? Yes Yes Yes Teaching: Wound Center Dressing Your Wound -Person Taught Patient -Teaching Method Discussion -Response to teaching Verbalize understanding WC - Visit Discharge Discharge Condition Stable Stable Stable Ambulatory Status Ambulatory Ambulatory Ambulatory Transportation Private Auto Private Auto Private Auto Accompanied by self Medication Reconcilliation completed & No No No provided to patient/care provider Clinical Summary of Care Provided Yes No Notes: 02/20/23 09:11 Wound Care Center Nurse 3 #1- R ELBOW -Ulcer Cleansing Rinsed/ Irrigated with Saline -Foul Odor after Cleansing No -Negative Pressure Wound Therapy N/A -Primary Dressing Applied Mepilex Border -Other Dressing -Primary Dressing Covered/Secured with -Mepilex Border 1 -Nugauze, Iodoform 1/4in Treatment Response Vital Signs Temperature (97.8 F-99.1 F) Temperature Source Pulse Rate (60-100) Pulse Location Respiratory Rate (12-18) Respiratory rate source Blood Pressure (90/60-120/80) Blood Pressure Mean (mm Hg) Source Position Blood Pressure Location Pain Scale: 0-10 Numeric Is Patient Pain Free? Yes Teaching: Wound Center Dressing Your Wound -Person Taught Patient -Teaching Method Discussion -Response to teaching Verbalize understanding WC - Visit Discharge Discharge Condition Stable Ambulatory Status Ambulatory Transportation Private Auto Accompanied by self Medication Reconcilliation completed & No provided to patient/care provider Clinical Summary of Care Provided Yes Notes: f/u in one week Assessment/Plan Assessment/Plan (1) Decubitus ulcer of right elbow, stage 3: CODE(S): L89.013 - Pressure ulcer of right elbow, stage 3 (2) Type II diabetes mellitus: CODE(S): E11.9 - Type 2 diabetes mellitus without complications PLAN: Plan No debridement completed today, minimal area on left. Apply moistened Promogranover top, continue foam dressing. Change daily. Optimal protein intake and diabetes control. Avoid consistent pressure to the right elbow. His questions were answered and he was advised to call with any further questions or concerns. Follow-up in a week or sooner if needed. This note was generated with [employer] / [employer] software. It may contain incorrectwords, spelling, and punctuation that were not noted in checking the note beforesigning. 02/20/23 0954 <Electronically signed by Jyoti Frost MD> Cosigner Signature (if applicable): CC: ~ Signed [facility] Work Phone: [phone] Frost [facility] February 13, 2023 1:02pm Note Date/Time February 13, 2023 12:54 pm [facility] [address] [place] [address] Progress Note - Wound Care 02/13/23 1252 MR#: [id number] Acct: [id number] Name: DALE SARABIA Rep #:[id number] : 1955 68 From: Jyoti hayden MD PCP: Dr. Mohinder Quick MD Status:REG RCR Location: History of Present Illness Date of Service: 02/13/23 Chief Complaint: Right Elbow Ulcer History of Wound: Mr. Sarabia is a 68-year-old who was referred to the wound center due to nonhealing right elbow ulcer. Initially started in 2013. An areaof swelling on his right elbow which subsequently opened up. Was seen at the wound center then, had imaging but he is not sure what exactly the imaging showed. Did not see Ortho surgeon, no known history of gout. Recent opening noted 6 months ago following a fall and has not healed since then. Previously, with reopening he had been able to manage it at home by himself. Occasional draining from the site but not significant. On chronic antibiotic for MRSA hip infection. History of Type 2 DM which is well controlled. Most recent A1C said to be 5. He feels well otherwise and has no acute concerns. Progress of Wound: Some worsening noted. Has been applying Promogran daily. No significant pain or drainage. Culture with no significant growth. Objective Data Objective Data Vital Signs: Vital Signs Temp Pulse Resp BP O2 Del Method 96.3 F L 72 16 136/75 H Room Air 02/13/23 11:47 02/13/23 11:47 02/13/23 11:47 02/13/23 11:47 02/13/23 11:47 Oxygen Delivery Method Room Air Weight: 230 lb Body Mass Index (BMI) 34.9 Lab / Micro Data Micro: Microbiology 02/06/23 10:00 Wound Abcess - Elbow Gram Stain - Final 02/06/23 10:00 Wound Abcess - Elbow Wound Culture - Final Staphylococcus epidermidis 02/06/23 10:00 Wound Abcess - Elbow Anaerobic Culture - Final No anaerobic bacteria isolated. Charges/Coding Procedures Integumentary 111xxx-113xx: [id number] Rosi subq tissue 20 sq cm/< Physical Exam Const alert, oriented x3 and no apparent distress General Appearance: cooperative and comfortable HEENT normocephalic and head/scalp atraumatic Eyes EOMs intact bilaterally Neck full ROM and supple General: normal visual inspection Resp normal respiratory effort Effort and Inspection: able to speak in complete sentences Skin Wounds: wounds noted Neuro oriented x3, CN's II-XII intact bilaterally, moves all extremities and no focal motor deficits Psych mental status grossly normal, thought process normal, cooperative and affect normal Debridement Note Debridement Note Wound debrided: Right Elbow Type of Debridement: Excisional debridement Anesthesia Used: 4% Lidocaine Solution Depth: Down to and including healthy tissue and in the subcutaneous layer Percentage of wound debrided: 100 Instrument Used: 3mm curette Severity: Fat Layer Exposed Amount of bleeding with debridement: Mild Bleeding Controlled with: Pressure Patient tolerated procedure: Patient tolerated procedure well Post-Debridement Measurements and Additional Note: Post-Debridement Measurements/Treatment - Nurse 1 - General Ulcer Assessment Start: 01/30/23 09:21 Freq: Status: Active Protocol: YOLANDA Activity Type Activity Date Activity User E-sign Co-sign Detail Recorded Client Recorded Date Recorded By Document 01/30/23 09:28 [facility] [id number] 01/30/23 09:39 [facility] Document 01/31/23 13:20 [id number] 01/31/23 13:28 Document 02/06/23 09:29 RB [id number] 02/06/23 09:31 RB Document 02/13/23 11:47 [facility] [id number] 02/13/23 11:52 [facility] 01/30/23 01/31/23 02/06/23 09:28 13:20 09:29 - Today's Visit Information Type of service Initial Visit Nurse-only Follow-up Visit Visit (Physician/TELEVISION SPECIALIST ) Arrival Mode Ambulatory,Cane Ambulatory Ambulatory Transfer Assistance None None Patient Identification Verified (Name & Yes Yes Yes ) Patient Requires Transmission-Based No No No Precautions Height and Weight Height 5 ft 8 in Weight 230 lb Weight in Pounds 230.0 lbs Weight Measurement Method Estimated by Patient Body Mass Index (BMI) 34.9 34.9 34.9 BMI Classification Obese Obese Obese BSA - Art 2.17 Vital Signs Temperature (97.8 F-99.1 F) 98 F 97.6 F L 97 F L Temperature Source Temporal Temporal Temporal Pulse Rate (60-100) 71 70 71 Pulse Location Monitor Monitor Monitor Respiratory Rate (12-18) 16 18 18 Respiratory rate source Observation Observation Observation Oxygen Delivery Method Room Air Blood Pressure (90/60-120/80) 127/62 H 148/68 H 149/71 H Blood Pressure Mean (mm Hg) 83 94 97 Source Monitor Monitor Monitor Position Sitting Semi-Fowlers Semi-Fowlers Blood Pressure Location Left Arm Left Arm Left Arm History Since Last Visit- (Skip if this is Patient's initial visit) Have you changed medications since your No last visit? Any new allergies or adverse reactions No Had a fall/change in ADL's that may No increase risk of falls Signs or symptoms of abuse and/or No neglect since last visit Have you been in the hospital since your No last visit? Has dressing in place as prescribed Yes Has compression in place as prescribed No Has offloadiing in place as prescribed No Experienced any changes in pain level or No management Left Footwear Regular Shoe Right Footwear Regular Shoe Pain Scale: 0-10 Numeric Is Patient Pain Free? Yes Yes Yes Communication Assessment Preferred language [place] Sports Marketing Internship Required No Able to Read Yes Able to Write Yes Communication Tools None Right Hearing Abillity Hard of Hearing ,Use of Hearing Aid Left Hearing Abillity Hard of Hearing ,Use of Hearing Aid Visual Assistive Devices Glasses Teaching Assessment Preferences Verbal,Written, Audio/Visual, Demonstration Barriers to Learning None Readiness To Learn Excellent Willingness to Engage in Self Management High Activies Readiness to Engage in Self Management High Activities Anxiety Level Calm Cooperation Cooperative Perception Coherent Interest in Health Problem Asks Questions Education Importance Acknowledges Need Does Patient Smoke tobacco or other No substances Smoking Status Never smoker Is Patient Diabetic Yes Functional Assessment Recent Decline in Ability to Perform Denies Any Declines Culture/Jain/Artist Relationship Manager Cultural/Jain Needs that may affect No Treatment Plan Teaching: Wound Center *Welcome to the Wound Center -Person Taught Patient -Teaching Method Discussion -Response to teaching Verbalize understanding Welcome to the Wound Care Center [place] 02/13/23 11:47 WC - Today's Visit Information Type of service Follow-up Visit (Physician/TELEVISION SPECIALIST ) Arrival Mode Ambulatory,Cane Transfer Assistance None Patient Identification Verified (Name & Yes ) Patient Requires Transmission-Based No Precautions Height and Weight Height Weight Weight in Pounds Weight Measurement Method Body Mass Index (BMI) 34.9 BMI Classification Obese BSA - Art Vital Signs Temperature (97.8 F-99.1 F) 96.3 F L Temperature Source Temporal Pulse Rate (60-100) 72 Pulse Location Monitor Respiratory Rate (12-18) 16 Respiratory rate source Observation Oxygen Delivery Method Room Air Blood Pressure (90/60-120/80) 136/75 H Blood Pressure Mean (mm Hg) 95 Source Monitor Position Sitting Blood Pressure Location Left Arm History Since Last Visit- (Skip if this is Patient's initial visit) Have you changed medications since your No last visit? Any new allergies or adverse reactions No Had a fall/change in ADL's that may No increase risk of falls Signs or symptoms of abuse and/or No neglect since last visit Have you been in the hospital since your No last visit? Has dressing in place as prescribed Yes Has compression in place as prescribed N/A Has offloadiing in place as prescribed N/A Experienced any changes in pain level or No management Left Footwear Regular Shoe Right Footwear Regular Shoe Pain Scale: 0-10 Numeric Is Patient Pain Free? Yes Communication Assessment Preferred educational speech language clinician Required Able to Read Able to Write Communication Tools Right Hearing Abillity Left Hearing Abillity Visual Assistive Devices Teaching Assessment Preferences Barriers to Learning Readiness To Learn Willingness to Engage in Self Management Activies Readiness to Engage in Self Management Activities Anxiety Level Cooperation Perception Interest in Health Problem Education Importance Does Patient Smoke tobacco or other substances Smoking Status Is Patient Diabetic Functional Assessment Recent Decline in Ability to Perform Culture/Jain/Artist Relationship Manager Cultural/Jain Needs that may affect Treatment Plan Teaching: Wound Center *Welcome to the Wound Center -Person Taught -Teaching Method -Response to teaching Welcome to the Wound Care Center WC - Nurse 1 - General Ulcer Measurement Start: 01/30/23 09:21 Freq: Status: Active Protocol: Activity Type Activity Date Activity User E-sign Co-sign Detail Recorded Client Recorded Date Recorded By Document 01/30/23 09:28 BMF [id number] 01/30/23 09:39 BM Document 01/31/23 13:20 JF [id number] 01/31/23 13:28 JF Document 02/06/23 09:29 RB [id number] 02/06/23 09:31 RB Document 02/13/23 11:47 [facility] [id number] 02/13/23 11:52 [facility] 01/30/23 01/31/23 02/06/23 09:28 13:20 09:29 Wound Center Nurse 1 #1- R ELBOW -Combined with other wound No No No -Current Size (cm) - Length 0.3 0.2 -Current Size (cm) - Width 0.2 0.2 -Current Size (cm) - Depth 0.4 0.4 -Total Square Cm 0.06 0.04 -Date of Last Picture (Recall this 01/30/23 field) -Photo Taken Yes No Yes -Epithelialization None Present None Present -Tunneling Yes No -Tunneling Position (O'clock) 12 -Tunneling Distance (cm) 0.9 -Undermining/Tunneling No Yes -Undermining/Tunneling Starts (O'clock 12 ) -Undermining/Tunneling Ends (O'clock) 12 -Maximum Distance (cm) 0.4 -Circular Undermining No No -Exudate Amt Medium Medium Medium -Exudate Type Serous Serosanguineous Serosanguineous -Wound Margin Distinct, Flat & Intact Thickened & Outline Rolled Under Attached -Granulation Amt Small (1-33%) Medium (34-66%) -Granulation Quality Athena Athena -Slough/Fibrin Yes Yes -Necrosis Amt Large (67-100%) Medium (34-66%) -Necrotic Tissue Type Adherent Slough Adherent Slough -Structure Exposed N/A -Texture (Nyasia-wound Skin Appearance) Assessed, Assessed, Localized Edema Localized Edema ,Scarring -Moisture (Nyasia-wound Skin Appearance) Assessed Assessed -Color (Nyasia-wound Skin Appearance) Assessed, Assessed Erythema -Temperature (Nyasia-wound Skin No Abnormality No Abnormality Appearance) (Pt Warm) (Pt Warm) -Tenderness on Palpation (Nyasia-wound No No Skin Appearance) -Ulcer Cleansing Rinsed/ Soap and Water Wound Cleanser Irrigated with Saline -Foul Odor after Cleansing No No No -Anesthetic Used 5% Lidocaine 5% Lidocaine Gel Gel Lower Limb Edema Present NA 02/13/23 11:47 Wound Center Nurse 1 #1- R ELBOW -Combined with other wound No -Current Size (cm) - Length 0.3 -Current Size (cm) - Width 0.2 -Current Size (cm) - Depth 0.6 -Total Square Cm 0.06 -Date of Last Picture (Recall this field) -Photo Taken No -Epithelialization Small 1-33% -Tunneling No -Tunneling Position (O'clock) -Tunneling Distance (cm) -Undermining/Tunneling Yes -Undermining/Tunneling Starts (O'clock 10 ) -Undermining/Tunneling Ends (O'clock) 4 -Maximum Distance (cm) 0.5 -Circular Undermining No -Exudate Amt Medium -Exudate Type Serous -Wound Margin Distinct, Outline Attached -Granulation Amt Large (67-100%) -Granulation Quality Athena -Slough/Fibrin No -Necrosis Amt None Present (0 %) -Necrotic Tissue Type -Structure Exposed -Texture (Nyasia-wound Skin Appearance) Assessed, Scarring -Moisture (Nyasia-wound Skin Appearance) Assessed, Maceration -Color (Nyasia-wound Skin Appearance) Assessed -Temperature (Nyasia-wound Skin No Abnormality Appearance) (Pt Warm) -Tenderness on Palpation (Nyasia-wound No Skin Appearance) -Ulcer Cleansing Rinsed/ Irrigated with Saline -Foul Odor after Cleansing No -Anesthetic Used 5% Lidocaine Gel Lower Limb Edema Present WC - Nurse 2 - General Ulcer CM Notes Start: 01/30/23 09:21 Freq: Status: Active Protocol: Activity Type Activity Date Activity User E-sign Co-sign Detail Recorded Client Recorded Date Recorded By Document 01/30/23 10:22 MW [id number] 01/30/23 10:33 MW Document 02/06/23 09:56 MW [id number] 02/06/23 10:01 MW Document 02/13/23 11:56 [id number] 02/13/23 12:00 JF 01/30/23 02/06/23 02/13/23 10:22 09:56 11:56 Wound Center Nurse 2 #1- R ELBOW -Time 10:22 09:57 11:56 -Correct Patient Yes Yes Yes -Correct Side, Site, Position Yes Yes Yes -Correct Procedure Yes Yes Yes -Procedure Performed Yes Yes Yes -Type of Procedure Debridement Debridement Debridement -Clinical Debridement Subcutaneous Subcutaneous Subcutaneous -Tissue Removed Subcutaneous Subcutaneous Subcutaneous -Post Debridement (cm) - Length 0.4 0.1 0.4 -Post Debridement (cm) - Width 0.3 0.2 0.3 -Post Debridement (cm) - Depth 0.9 0.8 1.0 -Total Square (Post) (cm) 0.12 0.02 0.12 -Area of Debridement (cm) - Length 0.4 0.1 0.4 -Area of Debridement (cm) - Width 0.3 0.2 0.3 -Total Square (Area) (cm) 0.12 0.02 0.12 -Tunneling Yes Yes Yes -Tunneling Position (O'clock) 12 12 12 -Tunneling Distance (cm) 2.0 1.5 1.6 -Undermining/Tunneling No No No -Circular Undermining Yes Yes Yes -Wound/Ulcer Outcome Not Healed Not Healed Not Healed -Ulcer Cleansing Rinsed/ Rinsed/ Rinsed/ Irrigated with Irrigated with Irrigated with Saline Saline Saline -Foul Odor after Cleansing No No No -Bioengineered Tissue No No No -Bleeding Controlled with Pressure Pressure Pressure -Treatment Response Procedure Procedure Procedure Tolerated Well Tolerated Well Tolerated Well -Offloading No No No -Debridement - Subq, 1st 20sq cm Yes Yes Yes Pain Scale: 0-10 Numeric Is Patient Pain Free? Yes Yes Yes WC - Nurse 3 - General Ulcer D/C NN Start: 01/30/23 09:21 Freq: Status: Active Protocol: Activity Type Activity Date Activity User E-sign Co-sign Detail Recorded Client Recorded Date Recorded By Document 01/30/23 10:37 MW [id number] 01/30/23 10:50 MW Document 01/31/23 13:20 JF [id number] 01/31/23 13:28 JF Document 02/13/23 12:15 RB [id number] 02/13/23 12:16 RB 01/30/23 01/31/23 02/13/23 10:37 13:20 12:15 Wound Care Center Nurse 3 #1- R ELBOW -Ulcer Cleansing Rinsed/ Rinsed/ Rinsed/ Irrigated with Irrigated with Irrigated with Saline Saline Saline -Foul Odor after Cleansing No No -Negative Pressure Wound Therapy N/A -Primary Dressing Applied Nugauze, Mepilex Border Nugauze, Iodoform 1/4in, Iodoform 1/4in Mepilex Border -Other Dressing iodoform felt apputure packing pad to elbow -Primary Dressing Covered/Secured with Dry Gauze, Secured with Tape -Mepilex Border 2 1 -Nugauze, Iodoform 1/4in 1 1 Treatment Response Procedure Procedure Tolerated Well Tolerated Well Vital Signs Temperature (97.8 F-99.1 F) 97.6 F L Temperature Source Temporal Pulse Rate (60-100) 70 Pulse Location Monitor Respiratory Rate (12-18) 18 Respiratory rate source Observation Blood Pressure (90/60-120/80) 148/68 H Blood Pressure Mean (mm Hg) 94 Source Monitor Position Semi-Fowlers Blood Pressure Location Left Arm Pain Scale: 0-10 Numeric Is Patient Pain Free? Yes Yes Yes Teaching: Wound Center Dressing Your Wound -Person Taught Patient -Teaching Method Discussion -Response to teaching Verbalize understanding WC - Visit Discharge Discharge Condition Stable Stable Stable Ambulatory Status Ambulatory Ambulatory Ambulatory Transportation Private Auto Private Auto Private Auto Accompanied by self Medication Reconcilliation completed & No No No provided to patient/care provider Clinical Summary of Care Provided Yes No Assessment/Plan Assessment/Plan (1) Decubitus ulcer of right elbow, stage 3: CODE(S): L89.013 - Pressure ulcer of right elbow, stage 3 (2) Type II diabetes mellitus: CODE(S): E11.9 - Type 2 diabetes mellitus without complications PLAN: Plan Debridement done as documented above, procedure was well-tolerated. Some worsening noted compared to last week. Culture reviewed and no significant growth/possible skin contaminant (Staph epidermidis). Also currently on doxycycline. Discontinue Promogran and go back to iodoform packing which he appears to have done better on. Change daily, cover with foam dressing. Optimal protein intake and diabetes control. Avoid consistent pressure to the right elbow. His questions were answered and he was advised to call with any further questions or concerns. Follow-up in a week or sooner if needed. This note was generated with [employer] / [employer] software. It may contain incorrectwords, spelling, and punctuation that were not noted in checking the note beforesigning. 05/18/23 1302 <Electronically signed by Jyoti Frost MD> Cosigner Signature (if applicable): CC: ~ Signed [facility] Work Phone: [phone] 782-603405-11-[address] Frost [facility] February 06, 2023 1:22pm Note Date/Time February 06, 2023 1:00p m [facility] [address] [place] [address] Progress Note - Wound Care 02/06/23 1259 MR#: [id number] Acct: [id number] Name: ADLE SARABIA Rep #:[id number] : 1955 68 From: Jyoti hayden MD PCP: Dr. Mohinder Quick MD Status:REG RCR Location: History of Present Illness Date of Service: 02/06/23 Chief Complaint: Right Elbow Ulcer History of Wound: Mr. Sarabia is a 68-year-old who was referred to the wound center due to nonhealing right elbow ulcer. Initially started in 2013. An areaof swelling on his right elbow which subsequently opened up. Was seen at the wound center then, had imaging but he is not sure what exactly the imaging showed. Did not see Ortho surgeon, no known history of gout. Recent opening noted 6 months ago following a fall and has not healed since then. Previously, with reopening he had been able to manage it at home by himself. Occasional draining from the site but not significant. On chronic antibiotic for MRSA hip infection. History of Type 2 DM which is well controlled. Most recent A1C said to be 5. He feels well otherwise and has no acute concerns. Progress of Wound: No new concerns at this time. has been doing dressing changes as recommended. Objective Data Objective Data Vital Signs: Vital Signs Temp Pulse Resp BP O2 Del Method 97 F L 71 18 149/71 H Room Air 02/06/23 09:29 02/06/23 09:29 02/06/23 09:29 02/06/23 09:29 01/30/23 09:28 Oxygen Delivery Method Room Air Weight: 230 lb Body Mass Index (BMI) 34.9 Charges/Coding Procedures Integumentary 111xxx-113xx: [id number] Rosi subq tissue 20 sq cm/< Physical Exam Const alert, oriented x3 and no apparent distress General Appearance: cooperative and comfortable HEENT normocephalic and head/scalp atraumatic Eyes EOMs intact bilaterally Neck full ROM and supple General: normal visual inspection Resp normal respiratory effort Effort and Inspection: able to speak in complete sentences Skin Wounds: wounds noted Neuro oriented x3, CN's II-XII intact bilaterally, moves all extremities and no focal motor deficits Psych mental status grossly normal, thought process normal, cooperative and affect normal Debridement Note Debridement Note Wound debrided: Right Elbow Type of Debridement: Excisional debridement Anesthesia Used: 4% Lidocaine Solution Depth: Down to and including healthy tissue and in the subcutaneous layer Percentage of wound debrided: 100 Instrument Used: - (1mm) Severity: Fat Layer Exposed Amount of bleeding with debridement: Mild Bleeding Controlled with: Pressure Patient tolerated procedure: Patient tolerated procedure well Post-Debridement Measurements and Additional Note: Post-Debridement Measurements/Treatment - Nurse 1 - General Ulcer Assessment Start: 01/30/23 09:21 Freq: Status: Active Protocol: YOLANDA Activity Type Activity Date Activity User E-sign Co-sign Detail Recorded Client Recorded Date Recorded By Document 01/30/23 09:28 [facility] [id number] 01/30/23 09:39 [facility] Document 01/31/23 13:20 [id number] 01/31/23 13:28 Document 02/06/23 09:29 [id number] 02/06/23 09:31 RB 01/30/23 01/31/23 02/06/23 09:28 13:20 09:29 - Today's Visit Information Type of service Initial Visit Nurse-only Follow-up Visit Visit (Physician/TELEVISION SPECIALIST ) Arrival Mode Ambulatory,Cane Ambulatory Ambulatory Transfer Assistance None None Patient Identification Verified (Name & Yes Yes Yes ) Patient Requires Transmission-Based No No No Precautions Height and Weight Height 5 ft 8 in Weight 230 lb Weight in Pounds 230.0 lbs Weight Measurement Method Estimated by Patient Body Mass Index (BMI) 34.9 34.9 34.9 BMI Classification Obese Obese Obese BSA - Art 2.17 Vital Signs Temperature (97.8 F-99.1 F) 98 F 97.6 F L 97 F L Temperature Source Temporal Temporal Temporal Pulse Rate (60-100) 71 70 71 Pulse Location Monitor Monitor Monitor Respiratory Rate (12-18) 16 18 18 Respiratory rate source Observation Observation Observation Oxygen Delivery Method Room Air Blood Pressure (90/60-120/80) 127/62 H 148/68 H 149/71 H Blood Pressure Mean (mm Hg) 83 94 97 Source Monitor Monitor Monitor Position Sitting Semi-Fowlers Semi-Fowlers Blood Pressure Location Left Arm Left Arm Left Arm History Since Last Visit- (Skip if this is Patient's initial visit) Have you changed medications since your No last visit? Any new allergies or adverse reactions No Had a fall/change in ADL's that may No increase risk of falls Signs or symptoms of abuse and/or No neglect since last visit Have you been in the hospital since your No last visit? Has dressing in place as prescribed Yes Has compression in place as prescribed No Has offloadiing in place as prescribed No Experienced any changes in pain level or No management Left Footwear Regular Shoe Right Footwear Regular Shoe Pain Scale: 0-10 Numeric Is Patient Pain Free? Yes Yes Yes Communication Assessment Preferred language [place] [employer] Internship Required No Able to Read Yes Able to Write Yes Communication Tools None Right Hearing Abillity Hard of Hearing ,Use of Hearing Aid Left Hearing Abillity Hard of Hearing ,Use of Hearing Aid Visual Assistive Devices Glasses Teaching Assessment Preferences Verbal,Written, Audio/Visual, Demonstration Barriers to Learning None Readiness To Learn Excellent Willingness to Engage in Self Management High Activies Readiness to Engage in Self Management High Activities Anxiety Level Calm Cooperation Cooperative Perception Coherent Interest in Health Problem Asks Questions Education Importance Acknowledges Need Does Patient Smoke tobacco or other No substances Smoking Status Never smoker Is Patient Diabetic Yes Functional Assessment Recent Decline in Ability to Perform Denies Any Declines Culture/Jain/Artist Relationship Manager Cultural/Jain Needs that may affect No Treatment Plan Teaching: Wound Center *Welcome to the Wound Center -Person Taught Patient -Teaching Method Discussion -Response to teaching Verbalize understanding Welcome to the Wound Care Center English PEREZ - Nurse 1 - General Ulcer Measurement Start: 01/30/23 09:21 Freq: Status: Active Protocol: Activity Type Activity Date Activity User E-sign Co-sign Detail Recorded Client Recorded Date Recorded By Document 01/30/23 09:28 [facility] [id number] 01/30/23 09:39 BMF Document 01/31/23 13:20 JF [id number] 01/31/23 13:28 JF Document 02/06/23 09:29 RB [id number] 02/06/23 09:31 RB 01/30/23 01/31/23 02/06/23 09:28 13:20 09:29 Wound Center Nurse 1 #1- R ELBOW -Combined with other wound No No No -Current Size (cm) - Length 0.3 0.2 -Current Size (cm) - Width 0.2 0.2 -Current Size (cm) - Depth 0.4 0.4 -Total Square Cm 0.06 0.04 -Date of Last Picture (Recall this 01/30/23 field) -Photo Taken Yes No Yes -Epithelialization None Present None Present -Tunneling Yes No -Tunneling Position (O'clock) 12 -Tunneling Distance (cm) 0.9 -Undermining/Tunneling No Yes -Undermining/Tunneling Starts (O'clock 12 ) -Undermining/Tunneling Ends (O'clock) 12 -Maximum Distance (cm) 0.4 -Circular Undermining No No -Exudate Amt Medium Medium Medium -Exudate Type Serous Serosanguineous Serosanguineous -Wound Margin Distinct, Flat & Intact Thickened & Outline Rolled Under Attached -Granulation Amt Small (1-33%) Medium (34-66%) -Granulation Quality Athena Athena -Slough/Fibrin Yes Yes -Necrosis Amt Large (67-100%) Medium (34-66%) -Necrotic Tissue Type Adherent Slough Adherent Slough -Structure Exposed N/A -Texture (Nyasia-wound Skin Appearance) Assessed, Assessed, Localized Edema Localized Edema ,Scarring -Moisture (Nyasia-wound Skin Appearance) Assessed Assessed -Color (Nyasia-wound Skin Appearance) Assessed, Assessed Erythema -Temperature (Nyasia-wound Skin No Abnormality No Abnormality Appearance) (Pt Warm) (Pt Warm) -Tenderness on Palpation (Nyasia-wound No No Skin Appearance) -Ulcer Cleansing Rinsed/ Soap and Water Wound Cleanser Irrigated with Saline -Foul Odor after Cleansing No No No -Anesthetic Used 5% Lidocaine 5% Lidocaine Gel Gel Lower Limb Edema Present NA WC - Nurse 2 - General Ulcer CM Notes Start: 01/30/23 09:21 Freq: Status: Active Protocol: Activity Type Activity Date Activity User E-sign Co-sign Detail Recorded Client Recorded Date Recorded By Document 01/30/23 10:22 MW [id number] 01/30/23 10:33 MW Document 02/06/23 09:56 MW [id number] 02/06/23 10:01 MW 01/30/23 02/06/23 10:22 09:56 Wound Center Nurse 2 #1- R ELBOW -Time 10:22 09:57 -Correct Patient Yes Yes -Correct Side, Site, Position Yes Yes -Correct Procedure Yes Yes -Procedure Performed Yes Yes -Type of Procedure Debridement Debridement -Clinical Debridement Subcutaneous Subcutaneous -Tissue Removed Subcutaneous Subcutaneous -Post Debridement (cm) - Length 0.4 0.1 -Post Debridement (cm) - Width 0.3 0.2 -Post Debridement (cm) - Depth 0.9 0.8 -Total Square (Post) (cm) 0.12 0.02 -Area of Debridement (cm) - Length 0.4 0.1 -Area of Debridement (cm) - Width 0.3 0.2 -Total Square (Area) (cm) 0.12 0.02 -Tunneling Yes Yes -Tunneling Position (O'clock) 12 12 -Tunneling Distance (cm) 2.0 1.5 -Undermining/Tunneling No No -Circular Undermining Yes Yes -Wound/Ulcer Outcome Not Healed Not Healed -Ulcer Cleansing Rinsed/ Rinsed/ Irrigated with Irrigated with Saline Saline -Foul Odor after Cleansing No No -Bioengineered Tissue No No -Bleeding Controlled with Pressure Pressure -Treatment Response Procedure Procedure Tolerated Well Tolerated Well -Offloading No No -Debridement - Subq, 1st 20sq cm Yes Yes Pain Scale: 0-10 Numeric Is Patient Pain Free? Yes Yes WC - Nurse 3 - General Ulcer D/C NN Start: 01/30/23 09:21 Freq: Status: Active Protocol: Activity Type Activity Date Activity User E-sign Co-sign Detail Recorded Client Recorded Date Recorded By Document 01/30/23 10:37 MW [id number] 01/30/23 10:50 MW Document 01/31/23 13:20 [id number] 01/31/23 13:28 JF 01/30/23 01/31/23 10:37 13:20 Wound Care Center Nurse 3 #1- R ELBOW -Ulcer Cleansing Rinsed/ Rinsed/ Irrigated with Irrigated with Saline Saline -Foul Odor after Cleansing No No -Negative Pressure Wound Therapy N/A -Primary Dressing Applied Nugauze, Mepilex Border Iodoform, Mepilex Border -Other Dressing iodoform packing -Mepilex Border 2 1 -Nugauze, Iodoform / 1 Treatment Response Procedure Tolerated Well Vital Signs Temperature (97.8 F-99.1 F) 97.6 F L Temperature Source Temporal Pulse Rate (60-100) 70 Pulse Location Monitor Respiratory Rate (12-18) 18 Respiratory rate source Observation Blood Pressure (90/60-120/80) 148/68 H Blood Pressure Mean (mm Hg) 94 Source Monitor Position Semi-Fowlers Blood Pressure Location Left Arm Pain Scale: 0-10 Numeric Is Patient Pain Free? Yes Yes Teaching: Wound Center Dressing Your Wound -Person Taught Patient -Teaching Method Discussion -Response to teaching Verbalize understanding WC - Visit Discharge Discharge Condition Stable Stable Ambulatory Status Ambulatory Ambulatory Transportation Private Auto Private Auto Accompanied by self Medication Reconcilliation completed & No No provided to patient/care provider Clinical Summary of Care Provided Yes No Assessment/Plan Assessment/Plan (1) Decubitus ulcer of right elbow, stage 3: CODE(S): L89.013 - Pressure ulcer of right elbow, stage 3 (2) Type II diabetes mellitus: CODE(S): E11.9 - Type 2 diabetes mellitus without complications PLAN: Plan Debridement done as documented above, procedure was well-tolerated. X-ray reviewed, there is concern for soft tissue infection. 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 Cultures taken , will review. Continue Doxycycline for now. Over the years he has had recurrent/spontaneous opening of this area. Now appears to be healing again which is good however due to history of recurrent opening, I believe he should get evaluated by Ortho. For now, due to difficulty with packing from healing, will switch to Promogran. Change daily, cover with foam dressing. Optimal protein intake and diabetes control. Avoid consistent pressure to the right elbow. His questions were answered and he was advised to call with any further questions or concerns. Follow-up in a week or sooner if needed. This note was generated with [employer] / [employer] software. It may contain incorrectwords, spelling, and punctuation that were not noted in checking the note beforesigning. 02/06/23 1322 <Electronically signed by Jyoti Frost MD> Cosigner Signature (if applicable): CC: ~ Signed [facility] Work Phone: [phone] 609-767705-08-2023 Miscellaneous Notes* Telephone Encounter - Delmy Dillon - 02/03/2023 4:19 PM EDT Spoke with patient and scheduled lab/OV. Patient declined ?phlebo as he statedhe hasn't needed one in months. Delmy Dillon * Telephone Encounter - Moses Jordan DO - 02/03/2023 3:21 PM EDT Yes. Moses Jordan DO * Telephone Encounter - Margaret Walker LPN - 02/03/2023 3:11 PM EDT From last OV 09/18/2021- -Continue Hydrea 500 mg once a day. -CBC/ferritin with possible phlebotomy monthly. -Phlebotomy threshold of hematocrit of 45%. -OV in about a year. Patient has been taking Hydrea 500 mg daily. When would you like to see patient? He needs a 1 year OV. Can he see Rula? Margaret Walker LPN * Telephone Encounter - Larisa Cardenas - 02/03/2023 2:52 PM EDT Patient called stating he has not been in the office for quite a while due to sickness and been in and out of the hospital. He is asking if he is to continue taking hydrea and if he needs to schedulean appointment. Please advise. [facility] History and physical note Author Dr. Oleghe [facility] January 31, 2023 5:19pm Note Date/Time January 30, 2023 11:10a m [facility] [address] [place] [address] H&P Exam - Wound Care 01/30/23 1058 MR#: [id number] Acct: [id number] Name: DALE SARABIA Rep #:[id number] : 1955 68 From: Jyoti hayden MD PCP: Dr. Mohinder Quick MD Status:REG RCR Location: History of Present Illness Date of Service: 01/30/23 Chief Complaint: Right Elbow Ulcer History of Wound: Mr. Sarabia is a 68-year-old who was referred to the wound center due to nonhealing right elbow ulcer. Initially started in 2013. An areaof swelling on his right elbow which subsequently opened up. Was seen at the wound center then, had imaging but he is not sure what exactly the imaging showed. Did not see Ortho surgeon, no known history of gout. Recent opening noted 6 months ago following a fall and has not healed since then. Previously, with reopening he had been able to manage it at home by himself. Occasional draining from the site but not significant. On chronic antibiotic for MRSA hip infection. History of Type 2 DM which is well controlled. Most recent A1C said to be 5. He feels well otherwise and has no acute concerns. [facility] Medical History (Updated 01/30/23 @ 11:[address] Jyoti Frost MD) Anemia Asthma Atherosclerotic heart disease of [place] coronary artery without angina pectoris Back pain Benign prostatic hypertrophy COPD (chronic obstructive pulmonary disease) DDD (degenerative disc disease), cervical Decubitus ulcer of right elbow, stage 3 Degeneration of intervertebral disc of lumbar region Degenerative disc disease, cervical Depression Diabetes CLARK (dyspnea on exertion) Essential (primary) hypertension Hearing difficulty of both ears History of renal cell cancer Hyperlipidemia Hypothyroidism Instability of medial collateral ligament of knee Kidney disease Lesion of sciatic nerve Lung disease Meniscus degeneration Nephrolithiasis Obesity Obstructive sleep apnea Osteoarthritis, knee Other custodial (current) 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 Over 63 years old Palpitations Polycythemia Precordial chest pain Pulmonary embolism (06/21/18) Restless legs syndrome Right elbow pain Right knee pain Rupture of right biceps tendon Sciatica Scoliosis of thoracic spine Secondary polycythemia Segmental and somatic dysfunction of cervical region Segmental and somatic dysfunction of cervical region Segmental and somatic dysfunction of lumbar region Segmental and somatic dysfunction of lumbar region Segmental and somatic dysfunction of pelvic region Segmental and somatic dysfunction of thoracic region Segmental and somatic dysfunction of thoracic region Shortness of breath Thyroid disease Tinnitus of both ears Trochanteric bursitis, left hip Type II diabetes mellitus Home Medications aspirin 81 mg chewable tablet 81 mg PO DAILY@0800 ANTIPLATELET 03/17/16 [History Last Taken 09/12/22] hydroxyurea 500 mg capsule 500 mg PO DAILY Ask Dr 12/17/18 [History Last Taken 09/12/22] gabapentin 100 mg capsule 100 mg PO 0600,1300 Neuropathy 09/13/22 [History Last Taken 09/12/22] gabapentin 100 mg tablet 300 mg PO QHS Neuropathy 10/05/22 [History Last Taken Unknown] glipizide 5 mg tablet, extended release 24 hr 5 mg PO DAILY DM 10/05/22 [History Last Taken Unknown] simethicone 80 mg chewable tablet 80 mg PO TIDPC 30 days #90 tabs 11/07/22 [Rx Last Taken Unknown] tramadol 50 mg tablet 50 mg PO Q6H PRN PRN Pain Score 4-5 7 days #28 tabs 11/07/22 [Rx Last Taken Unknown] metoprolol succinate 25 mg tablet,extended release 24 hr 25 mg PO DAILY BLOOD PRESSURE #90 tabs 11/18/22 [Rx Last Taken Unknown] furosemide 40 mg tablet 40 mg PO DAILY #90 tabs 12/12/22 [Rx Last Taken Unknown] metformin 500 mg tablet 500 mg PO BIDCM 30 days #180 tabs 01/01/23 [Rx Last Taken Unknown] tamsulosin 0.4 mg capsule 0.4 mg PO QHS #90 caps 01/13/23 [Rx Last Taken Unknown] trazodone 50 mg tablet 50 mg PO QHS PRN insomnia #60 tabs 01/13/23 [Rx Last Taken Unknown] buspirone 5 mg tablet 5 mg PO BID 01/30/23 [History Last Taken Unknown] doxycycline monohydrate 100 mg capsule 100 mg PO BID 01/30/23 [History Last Taken Unknown] levothyroxine 100 mcg tablet 100 mcg PO BID 01/30/23 [History Last Taken Unknown] Allergy/AdvReac Type Severity Reaction Status Date / Time sitagliptin [From ] Allergy Severe Rash Verified 12/16/22 11:19 theophylline Allergy Other Verified 01/30/23 09:40 chocolate flavor AdvReac Shortness Verified 12/16/22 11:19 of breath milk AdvReac Shortness Verified 12/16/22 11:19 of breath Family History Mother CAD (coronary artery disease) Breast cancer Diabetes Surgical History H/O lithotripsy History of coronary artery stent placement (05/24/11) History of left heart catheterization (06/19/18) History of partial nephrectomy History of tonsillectomy Hx of cataract surgery L eye surgery partial nephrectomy for renal cell cancer Social History household members: spouse Smoking Status: Never smoker how long ago did patient quit smokin, 1.5/d second hand exposure: Yes alcohol intake: never substance use type: does not use ROS Constitutional Constitutional: Denies chills or fever(s) ENT HEENT: Denies headache(s), nasal congestion or nasal discharge Cardiovascular Cardiovascular: Denies chest pain or palpitations Respiratory/Chest Respiratory/Chest: Denies cough, excessive phlegm production or shortness of breath with exertion Gastrointestinal Gastrointestinal: Denies abdominal pain, nausea or vomiting Genitourinary Genitourinary: Denies dysuria Musculoskeletal Musculoskeletal: Denies joint pain or joint swelling Integumentary Integumentary: Denies rash Neurologic Neurologic: Denies focal weakness, numbness or tingling Psychiatric Psychiatric: Denies anxiety, auditory hallucinations, depression, homicidal ideation or suicidal ideation Vital Signs Vital Signs Vital Signs: 01/30/23 09:28 Temperature 98 F Temperature Source Temporal Pulse Rate 71 Respiratory Rate 16 Blood Pressure 127/62 H Blood Pressure Mean 83 Blood Pressure Source Monitor Blood Pressure Position Sitting Blood Pressure Location Left Arm Oxygen Delivery Method Room Air Weight Weight: 230 lb Body Mass Index (BMI) 34.9 Physical Exam Const alert, oriented x3 and no apparent distress General Appearance: cooperative and comfortable HEENT normocephalic and head/scalp atraumatic Eyes EOMs intact bilaterally Neck full ROM and supple General: normal visual inspection Resp normal respiratory effort Effort and Inspection: able to speak in complete sentences Skin Wounds: wounds noted Neuro oriented x3, CN's II-XII intact bilaterally, moves all extremities and no focal motor deficits Psych mental status grossly normal, thought process normal, cooperative and affect normal Debridement Note Debridement Note Wound debrided: Right Elbow Type of Debridement: Excisional debridement Anesthesia Used: 4% Lidocaine Solution Depth: Down to and including healthy tissue and in the subcutaneous layer Percentage of wound debrided: 100 Instrument Used: 3mm curette Severity: Fat Layer Exposed Amount of bleeding with debridement: Mild Bleeding Controlled with: Pressure Patient tolerated procedure: Patient tolerated procedure well Post-Debridement Measurements and Additional Note: Post-Debridement Measurements/Treatment - Nurse 1 - General Ulcer Assessment Start: 01/30/23 09:21 Freq: Status: Active Protocol: YOLANDA Activity Type Activity Date Activity User E-sign Co-sign Detail Recorded Client Recorded Date Recorded By Document 01/30/23 09:28 [facility] [id number] 01/30/23 09:39 [facility] 01/30/23 09:28 - Today's Visit Information Type of service Initial Visit Arrival Mode Ambulatory,Cane Transfer Assistance None Patient Identification Verified (Name & Yes ) Patient Requires Transmission-Based No Precautions Height and Weight Height 5 ft 8 in Weight 230 lb Weight in Pounds 230.0 lbs Weight Measurement Method Estimated by Patient Body Mass Index (BMI) 34.9 BMI Classification Obese BSA - Art 2.17 Vital Signs Temperature (97.8 F-99.1 F) 98 F Temperature Source Temporal Pulse Rate (60-100) 71 Pulse Location Monitor Respiratory Rate (12-18) 16 Respiratory rate source Observation Oxygen Delivery Method Room Air Blood Pressure (90/60-120/80) 127/62 H Blood Pressure Mean 83 Source Monitor Position Sitting Blood Pressure Location Left Arm Pain Scale: 0-10 Numeric Is Patient Pain Free? Yes Communication Assessment Preferred language [place] [employer] Internship Required No Able to Read Yes Able to Write Yes Communication Tools None Right Hearing Abillity Hard of Hearing ,Use of Hearing Aid Left Hearing Abillity Hard of Hearing ,Use of Hearing Aid Visual Assistive Devices Glasses Teaching Assessment Preferences Verbal,Written, Audio/Visual, Demonstration Barriers to Learning None Readiness To Learn Excellent Willingness to Engage in Self Management High Activies Readiness to Engage in Self Management High Activities Anxiety Level Calm Cooperation Cooperative Perception Coherent Interest in Health Problem Asks Questions Education Importance Acknowledges Need Does Patient Smoke tobacco or other No substances Smoking Status Never smoker Is Patient Diabetic Yes Functional Assessment Recent Decline in Ability to Perform Denies Any Declines Culture/Jain/Artist Relationship Manager Cultural/Jain Needs that may affect No Treatment Plan Teaching: Wound Center *Welcome to the Wound Center -Person Taught Patient -Teaching Method Discussion -Response to teaching Verbalize understanding Welcome to the Wound Care Center [place] CHRIS - Nurse 1 - General Ulcer Measurement Start: 01/30/23 09:21 Freq: Status: Active Protocol: Activity Type Activity Date Activity User E-sign Co-sign Detail Recorded Client Recorded Date Recorded By Document 01/30/23 09:28 [facility] [id number] 01/30/23 09:39 [facility] 01/30/23 09:28 Wound Center Nurse 1 #1- R ELBOW -Combined with other wound No -Current Size (cm) - Length 0.3 -Current Size (cm) - Width 0.2 -Current Size (cm) - Depth 0.4 -Total Square Cm 0.06 -Date of Last Picture (Recall this 01/30/23 field) -Photo Taken Yes -Epithelialization None Present -Tunneling Yes -Tunneling Position (O'clock) 12 -Tunneling Distance (cm) 0.9 -Undermining/Tunneling No -Circular Undermining No -Exudate Amt Medium -Exudate Type Serous -Wound Margin Distinct, Outline Attached -Granulation Amt Small (1-33%) -Granulation Quality Athena -Slough/Fibrin Yes -Necrosis Amt Large (67-100%) -Necrotic Tissue Type Adherent Slough -Texture (Nyasia-wound Skin Appearance) Assessed, Localized Edema ,Scarring -Moisture (Nyasia-wound Skin Appearance) Assessed -Color (Nyasia-wound Skin Appearance) Assessed, Erythema -Temperature (Nyasia-wound Skin No Abnormality Appearance) (Pt Warm) -Tenderness on Palpation (Nyasia-wound No Skin Appearance) -Ulcer Cleansing Rinsed/ Irrigated with Saline -Foul Odor after Cleansing No -Anesthetic Used 5% Lidocaine Gel WC - Nurse 2 - General Ulcer CM Notes Start: 01/30/23 09:21 Freq: Status: Active Protocol: Activity Type Activity Date Activity User E-sign Co-sign Detail Recorded Client Recorded Date Recorded By Document 01/30/23 10:22 MW [id number] 01/30/23 10:33 MW 01/30/23 10:22 Wound Center Nurse 2 -Time 10:22 -Correct Patient Yes -Correct Side, Site, Position Yes -Correct Procedure Yes -Procedure Performed Yes -Type of Procedure Debridement -Clinical Debridement Subcutaneous -Tissue Removed Subcutaneous -Post Debridement (cm) - Length 0.4 -Post Debridement (cm) - Width 0.3 -Post Debridement (cm) - Depth 0.9 -Total Square (Post) (cm) 0.12 -Area of Debridement (cm) - Length 0.4 -Area of Debridement (cm) - Width 0.3 -Total Square (Area) (cm) 0.12 -Tunneling Yes -Tunneling Position (O'clock) 12 -Tunneling Distance (cm) 2.0 -Undermining/Tunneling No -Circular Undermining Yes -Wound/Ulcer Outcome Not Healed -Ulcer Cleansing Rinsed/ Irrigated with Saline -Foul Odor after Cleansing No -Bioengineered Tissue No -Bleeding Controlled with Pressure -Treatment Response Procedure Tolerated Well -Offloading No -Debridement - Subq, 1st 20sq cm Yes Pain Scale: 0-10 Numeric Is Patient Pain Free? Yes WC - Nurse 3 - General Ulcer D/C NN Start: 01/30/23 09:21 Freq: Status: Active Protocol: Activity Type Activity Date Activity User E-sign Co-sign Detail Recorded Client Recorded Date Recorded By Document 01/30/23 10:37 MW [id number] 01/30/23 10:50 MW 01/30/23 10:37 Wound Care Center Nurse 3 #1- R ELBOW -Ulcer Cleansing Rinsed/ Irrigated with Saline -Foul Odor after Cleansing No -Negative Pressure Wound Therapy N/A -Primary Dressing Applied Nugauze, Iodoform, Mepilex Border -Mepilex Border 2 -Nugauze, Iodoform 10/02 1 Treatment Response Procedure Tolerated Well Pain Scale: 0-10 Numeric Is Patient Pain Free? Yes Teaching: Wound Center Dressing Your Wound -Person Taught Patient -Teaching Method Discussion -Response to teaching Verbalize understanding WC - Visit Discharge Discharge Condition Stable Ambulatory Status Ambulatory Transportation Private Auto Accompanied by self Medication Reconcilliation completed & No provided to patient/care provider Clinical Summary of Care Provided Yes Charges/Coding Multi Select Codes Visit Charges Office Visit/Consults: 69927 OV L3 Est Integumentary Integumentary CPT Codes: 61784 Rosi bone 20 sq cm/< Assessment/Plan Assessment/Plan (1) Decubitus ulcer of right elbow, stage 3: CODE(S): L89.013 - Pressure ulcer of right elbow, stage 3 (2) Type II diabetes mellitus: CODE(S): E11.9 - Type 2 diabetes mellitus without complications PLAN: Plan Recurrent right elbow ulcer. Current episode symptoms started 6 months ago. Initial episode was in 2013. Walked at the lab and had a lot of pressure to hiselbows. No known history of gout. Does not report any history of olecranon bursitis, was not seen by Ortho. Typically, closures happened within a couple months but he states that this has taken longer. Has been on chronic antibiotics for his right hip MRSA infection. He states that diabetes is well controlled and he feels well overall. Debridement done as documented above, procedure was well-tolerated. X-ray ordered. Uric acid level also ordered. Hemay be 1 to benefit from surgical debridement, consider referral to Ortho but inthe meantime, iodoform packing daily. Cover with foam dressing. Optimal protein intake and diabetes control. Avoid consistent pressure to the right elbow. Questions were answered and he was advised to call with any further questions or concerns. Follow-up in a week or sooner if needed. This note was generated with KartMe dictation software. It may contain incorrectwords, spelling, and punctuation that were not noted in checking the note beforesigning. 01/31/23 4233 <Electronically signed by Jyoti Frost MD> Cosigner Signature (if applicable): CC: ~ Signed [facility] Work Phone: [phone] 910-746804-26-2023 Miscellaneous Notes* Telephone Encounter - Jihan Cunnignham - 01/22/2023 1:30 PM EDT Referral faxed to [facility] or [phone] Jihan Cunningham documented [facility] Instructions* Patient Instructions* Linsey Garber MD - 01/21/2023 2:06 PM EDT - to send a referral to [facility] - to switch antibiotic from bactrim to Doxycycline 100 mg twice daily to continue -To take doxycycline in upright posture, with a glass full of water, and avoid lying supine for at least 1 hour -To take doxycycline always only after food and never take it in empty stomach -Wear plenty of sunscreen while outside to prevent sunburn -Seek medical attention for any new epigastric pain or nausea/vomiting or diarrhea -Recheck serum creatinine after 2 weeks -Follow-up after 3 months documented in this [facility]High[facility]04-[facility]23 History of Present illness Narrative* Linsey Garber MD - 01/21/2023 1:45 PM EDT INFECTIOUS DISEASES OUTPATIENT FOLLOW-UP NOTE SERVICE DATE: 01/21/2023 Subjective INTERVAL HPI : Seen in follow-up of the left hip prosthetic joint infection. Since last seen in theID clinic on 12/04/2022, he has been taking Bactrim 1 DS p.o. twice daily. Overall doing well. No newjoint pain. Left hip functioning well. No nausea or vomiting or diarrhea. No urinary symptoms. Endorses right elbow wound intermittently draining serous fluid. The scab from the wound got dislodged yesterday 2 days ago. No pain. No fever or chills. No night sweats. Lab work-up performed on 01/09/2023 showed elevated creatinine of 1.2 (baseline 0.6). CRP has normalized at less than 0.3. WBC count was 7.1. Normal appetite No n/v No diarrhea No rashes No SOB No CLARK No cough No malaise No chest pain No joint pain ROS completed x14 and only pertinent data documented, the rest is negative except as documented above MEDICATIONS: Current Outpatient Medications Medication Sig aspirin, enteric coated (ASPIRIN, ENTERIC COATED) 81 mg EC tablet Take 1 tablet by mouth twice daily for 21 days. busPIRone (BUSPAR) 5 mg tablet Take by mouth twice daily. Acidophilus-Pectin, [place] 25 million cell -100 mg tab Take by mouth once daily. simethicone, chewable (MYLICON) 80 mg chewable tablet Take by mouth three times daily with meals. tamsulosin (FLOMAX) 0.4 mg Take by mouth daily at bedtime. sodium chloride (AYR, OCEAN) 0.65 % nasal spray as needed. levothyroxine (SYNTHROID) 100 mcg tablet Take by mouth once daily. traZODone (DESYREL) 50 mg tablet Take 50 mg by mouth daily at bedtime. metFORMIN (GLUCOPHAGE) 500 mg tablet Take 500 mg by mouth twice daily with meals. glipiZIDE (GLUCOTROL XL) 5 mg 24 hr tablet Take 5 mg by mouth once daily. Menthol-Zinc Oxide (CALMOSEPTINE) 0.44-20.6 % Apply 1 application to affected area every 4 hours asneeded (coccxy sore). hydroxyurea (HYDREA) 500 mg capsule Take 1 capsule by mouth once daily. gabapentin (NEURONTIN) 100 mg capsule Take one capsule in AM, one capsule at 1PM & three capsules at bedtime. TOPROL XL 25 mg 24 hr tablet Take 25 mg by mouth once daily. No current facility-administered medications for this visit. Objective Social History Tobacco Use Smoking status: Former Packs/day: 0.50 Years: 15.00 Pack years: 7.50 Types: Cigarettes Quit date: 02/20/1985 Years since quittin.9 Smokeless tobacco: Never Vaping Use Vaping Use: Never used Substance Use Topics Alcohol use: No Drug use: No FAMILY HISTORY Problem Relation Age of Onset Coronary Artery Disease Mother first disease age 70's Diabetes Mother Asthma Brother Prostate Cancer Other none Colon Cancer Other none Diabetes Sister Diabetes Brother PHYSICAL EXAM BP 127/70 Pulse 69 Temp (Src) 97.9 (Temporal) Resp 18 Ht 5' 7 (1.70m) Wt 239 lb 11.2 oz (108.7kg) SpO2 96% BMI 37.53 kg/(m^2). PSYCHIATRIC: no apparent distress, oriented to time, place and person SKIN: no diffuse skin rashes EYES: no scleral icterus, no conjunctivitis HEENT: normal inspection of teeth, lips, gums, and oropharynx NECK: normal appearance, normal movement RESPIRATORY: symmetrical chest expansion and respiratory effort, clear to auscultation CARDIOVASCULAR: S1, S2, no murmurs, no gallops, no rubs, no edema ABDOMINAL: soft, non-distended, non-tender MUSCULOSKELETAL: Using a cane to walk. EXTREMITIES: Right elbow: 1 x 1 cm sized skin ulcer noted, small amount of serous discharge noted. NEUROLOGICAL: nonfocal DIAGNOSTICS REVIEWED/OPAT LABS REVIEWED PERTINENT LABS CBC: WBC 7.16 01/09/2023 Hemoglobin 12.4 01/09/2023 HCT 37.8 01/09/2023 PLT 208 01/09/2023 CMP: Sodium 139 01/09/2023 Potassium 4.1 01/09/2023 BUN 23 01/09/2023 Creatinine 1.23 01/09/2023 Glucose 119 01/09/2023 Creatinine clearance: Serum creatinine: 1.23 mg/dL (H) 01/09/23 1210 Estimated creatinine clearance: 63.6 mL/min (A) INFLAMMATORY MARKERS Sed Rate/CRP: Sed Rate, [place] 117 09/28/2022 CRP <0.3 01/09/2023 CRP 3.3 11/10/2022 CRP 2.3 11/03/2022 CRP 11.9 10/27/2022 CRP 7.1 10/20/2022 CRP 3.8 10/13/2022 CRP 21.7 09/28/2022 PERTINENT MICROBIOLOGY Reviewed, see micro PERTINENT RADIOLOGY REPORTS Reviewed Impression/Recommendations Dale Sarabia is a 68 year old male with COPD, prior right-sided renal cell carcinoma (s/p partial nephrectomy), diabetes mellitus, and 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 Right elbow chronic wound with sinus drainage. Left acetabular osteomyelitis, left septic hip arthritis, posterior pelvic abscess, due to MRSA infection History of MRSA bacteremia Proteus mirabilis growth from right elbow wound 10/15/2022 Elevated creatinine 1.2 on 01/09/2023, likely secondary to Bactrim Estimated Creatinine Clearance: 65.7 mL/min (A) (based on SCr of 1.23 mg/dL (H)). -A referral sent to [facility] [place] as per patient's request, to manage right elbow wound -Switched from Bactrim to doxycycline 100 mg p.o. twice daily -To recheck serum creatinine after 2 weeks -Discussed potential adverse effects of Bactrim and how to avoid them -ID clinic follow-up after 3 months SIGNATURE: Linsey Garber MD PATIENT NAME: Dale Sarabia DATE: January 21, 2023 TIME: 1:45 PM documented in this encounterHigh[facility]04-04-[facility]23 History of Present illness Narrative* Goyo Cheng MD - 12/31/2022 1:10 PM EDT Subjective: Patient returns for follow-up regarding his left femur osteomyelitis and total hip arthroplasty. Overall doing extremely well. Very pleased with how things have gone. He states he is sleeping better than he has in years. States he is moving around better than he had prior to any surgical intervention. He is doing outpatient physical therapy. Has had some issues with constipation whichhe has been managing. Objective: Examination of the left lower extremity shows it to be neuro vas intact. He is ambulatory with out significant assistance from his walker. States he uses this for safety. Rises easily froma seated position. Imaging: Please refer to the radiographic interpretation Assessment: #1 osteomyelitis left femur. #2 total hip arthroplasty left lower extremity. Plan: At this time is doing extremely well. We discussed continued therapy and increasing his strength. This will take time. We discussed dislocation. We discussed his constipation. I will see him back in 6 weeks. If there is any questions or concerns, he will contact the office. Their questions were answered. documented in this [facility]High[facility]03-[facility]23 History of Present illness Narrative* Goyo Cheng MD - 12/10/2022 2:11 PM EDT Subjective: Patient returns today follow-up regarding his left total hip arthroplasty for osteomyelitis. Overall doing well. Currently only on Tylenol and that is for physical therapy. States he is doing extremely well. He is now on oral antibiotics. Currently taking Bactrim. Very pleased with his progress. Objective: Examination of left lower extremity shows it to be neuro vas intact. Incision is healingwell without signsOf infection or drainage. Ambulates with a walker. Imaging: Please refer to the radiographic interpretation Assessment: #1 Left proximal femur osteomyelitis status post total hip arthroplasty. Plan: At this time he is doing extremely well. He will continue with his oral antibiotics per the infectious disease service. He did have a list of questions which I answered. Some of these included golfing as well as driving. Okay to drive as he is on no pain medication. Terms of golfing, he can consider that this summer. Instructed him to work on this with physical therapy. We will continue posterior hip dislocation precautions. A prescription for outpatient physical therapy was provided. I will see him back in 3 weeks. If there is any questions or concerns, he will contact the office. Questions answered. documented in this encounterHigh[facility]03-08-2023 Instructions* Patient Instructions* Linsey Garber MD - 12/04/2022 1:24 PM EST - to send wound swab for culture - continue linezolid thru 12/06, then start bactrim Ds 1 po bid to continue - fu after 4 weks - CBC-d, CMP, CRP after 2 weeks - [facility] documented in this encounterHigh[facility]03-08-2023 History of Present illness Narrative* Linsey Garber MD - 12/04/2022 1:11 PM EST INFECTIOUS DISEASES OUTPATIENT FOLLOW-UP NOTE SERVICE DATE: 12/04/2022 Subjective INTERVAL HPI : Seen in follow-up of left hip septic arthritis. Was readmitted on 11/22/2022 for conversion of previous left hip surgery to left total hip arthroplasty and removal of antibiotic hip spacer on the same date. The operative culture from 10/31 for was no growth (1 out of 1). The patient was discharged with linezolid for 2 weeks. He is tolerating linezolid well. No nausea or vomiting or diarrhea. No new limb paresthesia or visual symptoms. CBC collected on 12/02/2022 showed WBC count of 10.2, stable hemoglobin of 10.6, and stable platelet count of 293. Today, patient reports that right elbow wound has continued to drain yellow serous drainage intermittently. No pain reported. The elbow wound was draining more with swelling when he was at [facility] in September. The wound culture collected on 10/15/2022 at [facility] grew Proteus (pansensitive). The left hip surgical wound margins have remained well approximated by Steri- Strips. No increase inpain of hip reported. No fever or chills or night sweats. ROS completed x14 and only pertinent data documented, the rest is negative except as documented above MEDICATIONS: Current Outpatient Medications Medication Sig linezolid (ZYVOX) 600 mg tablet Take 1 tablet by mouth twice daily for 11 days. aspirin, enteric coated (ASPIRIN, ENTERIC COATED) 81 mg EC tablet Take 1 tablet by mouth twice daily for 21 days. busPIRone (BUSPAR) 5 mg tablet Take by mouth twice daily. Acidophilus-Pectin, [place] 25 million cell -100 mg tab Take by mouth once daily. simethicone, chewable (MYLICON) 80 mg chewable tablet Take by mouth three times daily with meals. tamsulosin (FLOMAX) 0.4 mg Take by mouth daily at bedtime. sodium chloride (AYR, OCEAN) 0.65 % nasal spray as needed. levothyroxine (SYNTHROID) 100 mcg tablet Take by mouth once daily. traZODone (DESYREL) 50 mg tablet Take 50 mg by mouth daily at bedtime. metFORMIN (GLUCOPHAGE) 500 mg tablet Take 500 mg by mouth twice daily with meals. sulfamethoxazole-trimethoprim (BACTRIM DS) 800-160 mg per tablet Take 1 tablet by mouth twice daily. glipiZIDE (GLUCOTROL XL) 5 mg 24 hr tablet Take 5 mg by mouth once daily. Menthol-Zinc Oxide (CALMOSEPTINE) 0.44-20.6 % Apply 1 application to affected area every 4 hours asneeded (coccxy sore). hydroxyurea (HYDREA) 500 mg capsule Take 1 capsule by mouth once daily. gabapentin (NEURONTIN) 100 mg capsule Take one capsule in AM, one capsule at 1PM & three capsules at bedtime. TOPROL XL 25 mg 24 hr tablet Take 25 mg by mouth once daily. No current facility-administered medications for this visit. Objective Social History Tobacco Use Smoking status: Former Packs/day: 0.50 Years: 15.00 Pack years: 7.50 Types: Cigarettes Quit date: 02/20/1985 Years since quittin.8 Smokeless tobacco: Never Vaping Use Vaping Use: Never used Substance Use Topics Alcohol use: No Drug use: No FAMILY HISTORY Problem Relation Age of Onset Coronary Artery Disease Mother first disease age 70's Diabetes Mother Asthma Brother Prostate Cancer Other none Colon Cancer Other none Diabetes Sister Diabetes Brother PHYSICAL EXAM BP 129/65 Pulse 63 Temp (Src) 97.7 (Temporal) Resp 18 Ht 5' 7 (1.70m) Wt 224 lb 3.2 oz (101.7kg) SpO2 98[Room Air]% BMI 35.11 kg/(m^2). PSYCHIATRIC: no apparent distress, oriented to time, place and person, appropriate affect, good judgment, good insight, memory intact SKIN: no rashes, no ulcers, no pressure ulcers EYES: no scleral icterus, no conjunctivitis HEENT: normal inspection of teeth, lips, gums, and oropharynx NECK: normal appearance, normal movement RESPIRATORY: symmetrical chest expansion and respiratory effort, clear to auscultation CARDIOVASCULAR: S1, S2, no murmurs, no gallops, no rubs, no edema ABDOMINAL: soft, non-distended, non-tender EXTREMITIES: Within normal limits Left hip surgical wound margins approximated with Steri-Strips. Mild surrounding swelling appreciated. No erythema or drainage noted. Right elbow: 1 x 1 cm sized ulcer surrounded by swelling noted. Small amount of serous drainage swabbed. NEUROLOGICAL: nonfocal DIAGNOSTICS REVIEWED/OPAT LABS REVIEWED PERTINENT LABS CBC: WBC 10.25 12/02/2022 Hemoglobin 10.6 12/02/2022 HCT 33.5 12/02/2022 PLT 293 12/02/2022 CMP: Sodium 136 11/25/2022 Potassium 4.3 11/25/2022 BUN 11 11/25/2022 Creatinine 0.69 11/25/2022 Glucose 131 11/25/2022 Creatinine clearance: Serum creatinine: 0.69 mg/dL (L) 11/25/22 0859 Estimated creatinine clearance: 114.8 mL/min (A) INFLAMMATORY MARKERS Sed Rate/CRP: Sed Rate, Westergren 117 09/28/2022 CRP 3.3 11/10/2022 CRP 2.3 11/03/2022 CRP 11.9 10/27/2022 CRP 7.1 10/20/2022 CRP 3.8 10/13/2022 CRP 21.7 09/28/2022 PERTINENT MICROBIOLOGY Reviewed, see micro PERTINENT RADIOLOGY REPORTS Reviewed Impression/Recommendations Dale Sarabia is a 67 year old male with COPD, prior renal cell carcinoma, diabetes mellitus, and MRSA infection of the left hip and surrounding bone, readmitted on 11/22/2022 for elective conversion of previous left hip surgery to left total hip arthroplasty and removal of antibiotic hip spacer. Left acetabular osteomyelitis Left hip septic arthritis, s/p [place] hip joint resection and antibiotic spacer placement 09/30/2022,followed by removal of the spacer and conversion to total hip arthroplasty on 11/22/2022 Posterior pelvic abscess/deep anterior pelvic abscess, s/p I&D 1- MRSA infection with bacteremia Right elbow septic bursitis with chronic sinus drainage Proteus mirabilis growth from right elbow wound at posterior 10/15/2022 Estimated Creatinine Clearance: 114.8 mL/min (A) (based on SCr of 0.69 mg/dL (L)). -- Continue linezolid for 2 weeks through 12/06 --Start Bactrim 1 DS p.o. twice daily on 12/07, to continue until follow-up --Right elbow wound swab collected and sent for culture --Recheck CBC-D, CMP, and CRP after 2 weeks --Right elbow olecranon bursitis may need surgical debridement. Will defer further surgical intervention deferred to Dr. Cheng --Follow-up after 1 month MEDICAL DECISION MAKING: I have spent 30 minutes with this patient, >50% of time spent in a face to face encounter. This included time spent on counseling including lab results, diagnostic testing, medications, further management planning, prognosis, risks and benefits of treatment options. All questions were answered to the patient and/or family members satisfaction. SIGNATURE: Linsey Garber MD PATIENT NAME: Dale Sarabia DATE: December 04, 2022 TIME: 1:12 PM documented in this encounterCleveland [id number] Miscellaneous Notes* Telephone Encounter - Larisa Narvaez RN - 12/02/2022 9:45 AM EST TOTAL JOINT COMPLETE CARE PROGRAM DISCHARGE FOLLOW-UP PHONE CALL Phone Call Date: 12/02/2022 Phone Call Time: 0940 Date of Surgery: 11/22/2022 Procedure: Left Total Hip Replacement FOLLOW-UP QUESTIONS: Did you receive adequate written instructions upon discharge? Yes Do you have your follow-up appointment schedule? YES Is your pain controlled with current medication regimen? YES Current Pain level out of 10: 2 If you are able to see your incision, is there any increased drainage? NO Any increased swelling? NO Any increased redness? NO If your dressing is still on, do you know when to remove it? Removed last week Do you have any of the following new/worsening symptoms? None Have you contacted your surgeon's office about these symptoms? N/A Joint Class Participation: Yes Education Completed: Yes Online or DVD Education Complete: n/a SIGNATURE: Larisa Narvaez RN PATIENT NAME: Dale Sarabia DATE: December 02, 2022 TIME: 9:45 AM PAGER/CONTACT #: [phone] Patient is doing well at home, in home PT out to home. Bandage was removed last week, no drainage noted, has one red spot but it is the same spot that it was red prior to his surgery. Pain is tolerable, taking tylenol only, no nausea/constipation. He is aware of follow up with surgeon, has no needs. documented in this [facility]High[facility]23 Miscellaneous Notes* Telephone Encounter - Abdirizak Chang - 11/25/2022 4:16 PM EST Patient scheduled and made aware of 1.00p appt on 12/04 Gilles Chang * Telephone Encounter - Linsey Garber MD - 11/25/2022 3:31 PM EST 11 AM or 1 PM will be fine * Telephone Encounter - Jihan Cunningham - 11/25/2022 2:[address] Garber What time would you like to see this pt on 12/04? Thank you Jihan Cunningham documented in this encounterHigh[facility]02-24-2023 Miscellaneous Notes* Telephone Encounter - Josee Carvajal LPN - 11/22/2022 3:30 PM EST Call placed to patient's PCP's office, Mohinder Quick MD. Spoke w/ community service patrol officer Macho who states that Dr. Quick will follow for home care upon discharge from [facility]. Josee Carvajal LPN [facility] Central Admissions documented in this encounterHighland District Hospital02-21-2023 History and physical note * Isael Saenz APRN.TELEVISION SPECIALIST - 11/19/2022 1:40 PM EST HISTORY AND PHYSICAL EXAMINATION SERVICE DATE: 11/18/2022 SERVICE TIME: 3:30 PM PRIMARY CARE PHYSICIAN: Sebastien Stahl MD REASON FOR VISIT: Dale Sarabia is a 67 year old male who is scheduled for Procedure(s): : Conversion previous hip surgery to left total hip arthroplasty, Remove antibiotic cement spacer (Left) REMOVAL, NON-BIODEGRADABLE DRUG DELIVERY IMPLANT (Left) at the request of Dr. Goyo Cheng for routine H&P. My final recommendation will be communicated back to the requesting physician by wayof shared medical record or letter. Subjective The patient has the following: ACTIVE PROBLEM LIST Obesity, Unspecified Unspecified Essential Hypertension Unspecified Hypothyroidism Dysthymic Disorder Asthma Other Testicular Hypofunction Obstructive sleep apnea Urinary Calculus, Unspecified Anticipated Difficulty With Intubation Impaired Fasting Glucose Cad (Coronary Artery Disease) Renal Cell Carcinoma (Hcc) Secondary Polycythemia Anxiety About Health Fear of Other Medical Care Staphylococcal Arthritis of Left Hip (Hcc) Malnutrition of Mild Degree (Hcc) Obesity, Class I, Bmi 30-34.9 Type 2 Diabetes Mellitus (Hcc) COVID-19 Immunization Status Overdue - COVID-19 VACCINE (4 - Booster for Moderna series) Overdue since 09/26/2021 08/01/2021 Imm Admin: COVID-19 original vaccine, full dose, monovalent (MODERNA) 10/31/2020 Imm Admin: COVID-19 original vaccine, full dose, monovalent (MODERNA) 10/03/2020 Imm Admin: COVID-19 original vaccine, full dose, monovalent (MODERNA) CHIEF COMPLAINT: Pre surgical testing HPI: Dale Sarabia is a 67 year old male who presents to [facility] for a scheduled left hip procedurewith Dr. Cheng. Patient reports s/p left hip diagnostic arthrocentesis on 09/30/22 developed MRSA infection, 10/02/22 had closed reduction, left hip cement prosthesis, antibiotic spacer placement. Bone culture also showed MRSA and he was on 6 week of daptomycin finished course on 11/11/22. Currently follow infectious disease and taking PO Bactrim. He also has neuropathy, c/o some numbness and tinglingto toes. No recent fever or chills. After discussing with surgeon, patient agrees to surgical intervention. Risk and benefits discussed by surgeon. Patient denies any other problems or concerns at this time. REVIEW OF SYSTEMS: General: Negative for: unintentional weight change and fever. Neurological: Negative for: delirium, dementia, seizures, TIA and strokes. Respiratory: Positive for: COPD, obstructive sleep apnea and CPAP/BiPAP compliant. Negative for: asthma, current cough, dyspnea, pneumonia within 6 weeks and URI < 2 weeks. Cardiovascular: Positive for: CAD and hypertension Patient's last office visit with vocal performer, Dr. Torres, Negative for: abdominal aortic aneurysm, angina, atrial fibrillation, chest pain, DVT/PE and recentMI. GI: Negative for: abdominal pain, dysphagia, hepatitis, liver disease, nausea, vomiting and ETOH >2 drinks/day. : Negative for: flank pain, hematuria, urinary incontinence and renal failure. Endocrine: Positive for: diabetes mellitus and hypothyroidism. Patient's diabetes mellitus is controlled by oral agents. Negative for: hyperthyroidism and hyperparathyroidism. Hematology: Positive for: chronic anti-coagulation/platelet meds. Patient is on anti- coagulation/platelet medication(s): Aspirin. Negative for: anemia, factor V Leiden, hemophilia and von Willebrand disease. Oncology: No history of CA metastasis, chemo within 30 days, or radiotherapy within 90 days. No history of oncological symptoms or problems. Psych: Negative for: anxiety and depression. Musculoskeletal: See HPI. Skin: Negative for lesions, rash and itching. PAST MEDICAL HISTORY Diagnosis Date CAD (coronary artery disease) COPD (chronic obstructive pulmonary disease) (HCC) Diabetes mellitus (HCC) Dysthymic disorder Depression (non-psychotic) Hyperlipidemia Hypotestosteronism Kidney stones Obesity, unspecified Obesity Osteomyelitis of left hip (HCC) mrsa infection Polycythemia vera (HCC) Renal cell carcinoma (HCC) 09/29/2010 no treatment Unspecified essential hypertension Essential hypertension Unspecified hypothyroidism Hypothyroidism Unspecified sleep apnea Sleep apnea Vertigo PAST SURGICAL HISTORY Procedure Laterality Date ANESTHESIA CORNEAL TRANSPLANT Left 2002 ECHO DOPPLER COLOR FLOW 07/21/98 HIP SURGERY HX Left 10/02/2022 Closed reduction, left hip cement prosthesis IR VASCULAR ACCESS TEAM PICC INSERTION RADIO 10/03/2022 PAST SURGICAL HISTORY OF many multiple surgeries, LEFT eye; corneal transplant last (2005) Desai PAST SURGICAL HISTORY OF 11/2010 litotripsy and stents placed PAST SURGICAL HISTORY OF 2010 stents placed led- cardiac cath PAST SURGICAL HISTORY OF 2010 partial nephrectomy PAST SURGICAL HISTORY OF Left 09/30/2021 I&D deep anterior pelvic abscess.left femoral head and neck PULMONARY FUNCTION TEST 08/01/98 TONSILLECTOMY PRIMARY/SECONDARY <AGE 10 childhood FAMILY HISTORY Problem Relation Age of Onset Coronary Artery Disease Mother first disease age 70's Diabetes Mother Asthma Brother Prostate Cancer Other none Colon Cancer Other none Diabetes Sister Diabetes Brother Social History Tobacco Use Smoking status: Former Packs/day: 0.50 Years: 15.00 Pack years: 7.50 Types: Cigarettes Quit date: 02/20/1985 Years since quittin.7 Smokeless tobacco: Never Vaping Use Vaping Use: Never used Substance Use Topics Alcohol use: No Drug use: No Prior to Admission medications as of 11/19/22 1406 Medication Sig Last Dose Taking busPIRone (BUSPAR) 5 mg tablet Take by mouth twice daily. Taking Yes Acidophilus-Pectin, [place] 25 million cell -100 mg tab Take by mouth once daily. Taking Yes simethicone, chewable (MYLICON) 80 mg chewable tablet Take by mouth three times daily with meals. Taking Yes tamsulosin (FLOMAX) 0.4 mg Take by mouth daily at bedtime. Taking Yes sodium chloride (AYR, OCEAN) 0.65 % nasal spray as needed. Taking Yes traMADol (ULTRAM) 50 mg tablet Take by mouth as needed. Taking Yes levothyroxine (SYNTHROID) 100 mcg tablet Take by mouth once daily. Taking Yes traZODone (DESYREL) 50 mg tablet Take 50 mg by mouth daily at bedtime. Taking Yes metFORMIN (GLUCOPHAGE) 500 mg tablet Take 500 mg by mouth twice daily with meals. Taking Yes sulfamethoxazole-trimethoprim (BACTRIM DS) 800-160 mg per tablet Take 1 tablet by mouth twice daily. Taking Yes glipiZIDE (GLUCOTROL XL) 5 mg 24 hr tablet Take 5 mg by mouth once daily. Taking Yes Menthol-Zinc Oxide (CALMOSEPTINE) 0.44-20.6 % Apply 1 application to affected area every 4 hours asneeded (coccxy sore). Taking Yes hydroxyurea (HYDREA) 500 mg capsule Take 1 capsule by mouth once daily. Taking Yes gabapentin (NEURONTIN) 100 mg capsule Take one capsule in AM, one capsule at 1PM & three capsules at bedtime. Taking Yes TOPROL XL 25 mg 24 hr tablet Take 25 mg by mouth once daily. Taking Yes Aspirin 81 mg Tab Take 81 mg by mouth once daily. Taking Yes No medication comments found. ALLERGIES Allergen Reactions Sitagliptin Rash Chocolate Shortness of Breath Environmental [Othe* Seasonal, food allergies Fennel Seed Shortness of Breath Milk Shortness of Breath Peanut Shortness of Breath Theophylline Intolerance very lethargic and muscle cramps Objective PHYSICAL EXAM: General: alert and oriented, healthy appearance and obese. Pertinent negatives noted - not distressed. Skin: normal color, no rash or lesions. HEENT: No additional findings for patient's neck. Cardiovascular: regular rate and rhythm, normal S1 and S2, no rub, murmurs, or gallop. Respiratory: normal breath sounds, no wheezes or crackles. No chest wall deformity or tenderness. Abdomen: bowel sounds present and soft. Pertinent negatives noted - not tender. Extremities: no deformity, no edema or tenderness, no joint swelling or clubbing. Neurological: normal cognition and motor skills. Gait normal. No weakness or sensory deficit. Use walker. PAIN ASSESSMENT: Pain Pain Level: 3 Pain Location: Hip-Left Description: Dull, Aching VITALS: BP 106/53 Pulse 74 Temp 97.8 Resp 16 Ht 5' 8 (1.73m) Wt 212 lb (96.2kg) SpO2 99% BMI32.24 kg/(m^2). Diagnostic tests reviewed for today's visit: Lab Value Units Date High Low HB 9.8 g/dL 10/05/2022 17.0 13.0 HCT 35.5 % 11/10/2022 55 39 HCT 30.6 % 10/05/2022 51.0 39.0 WBC 7.3 K/uL 11/10/2022 11 3.9 WBC 12.73 K/uL 10/05/2022 11.00 3.70 PLT 303 k/uL 10/05/2022 400 150 PLT 283 K/uL 11/10/2022 440 140 NA 132 mmol/L 10/05/2022 144 136 K 3.5 mmol/L 10/05/2022 5.1 3.7 GLUC 132 mg/dL 10/05/2022 99 74 BUN 10 mg/dL 10/05/2022 24 9 CREAT 0.77 mg/dL 11/10/2022 1.20 0.70 CREAT 0.72 mg/dL 10/05/2022 1.22 0.73 PTSEC 12.2 sec 09/29/2022 13.0 9.7 INR 1.1 no uni* 09/29/2022 1.3 0.9 APTT No results within date range. ALT 27 IU/L 11/10/2022 65 0 ALT 23 IU/L 10/03/2022 54 10 AST 22 IU/L 11/10/2022 42 0 AST 31 IU/L 10/03/2022 40 14 TBILI 0.4 mg/dL 10/03/2022 1.3 0.2 TSH 0.889 mIU/L 09/28/2022 4.200 0.270 Lab Value Units Date High Low HCGQT No results within date range. UHCG No results within date range. HCG, BODY* No results within date range. Lab Value Units Date High Low ABORHD No results within date range. ABSCREEN No results within date range. No results found for: HBA1C Recent Results (from the past 8760 hour(s)) ECG COMPLETE Collection Time: 09/30/22 5:28 PM Result Value Ventricular Rate 116 Atrial Rate 116 P-R Interval 130 QRS Duration 86 QT Interval 360 QTC Calculation (Bazett) 500 Calculated P Gallant 46 Calculated R Gallant -79 Calculated T Gallant 41 Impression SINUS TACHYCARDIA WITH PACs LEFT AXIS DEVIATION PULMONARY DISEASE PATTERN ABNORMAL ECG NO PREVIOUS ECGS AVAILABLE Confirmed by MD BARNES VINAY ([id number]) on 10/01/2022 4:47:09 PM Recent Results (from the past 97780 hour(s)) ECHO Collection Time: 10/03/22 11:29 AM Impression CONCLUSIONS: - Technically difficult exam due to suboptimal positioning and body habitus. - Exam indication: Sepsis - S/p closed reduction of displaced left hip. Technically difficult and essentially non-diagnostic exam. Recommend repeat exam when patient is stable to be optimally positioned. - On very limited exam, left ventricular systolic function appears normal. LVEF is 60-65%. - The patient has not had a prior CC echocardiographic exam for comparison. * * * Final * * * Assessment Patient has the following medical conditions which may affect nyasia-operative course: CAD (coronary artery disease) Cardiac cath 04/2011 s/p stent x2 to LAD Stable, taking ASA. Denies recent chest pain or SOB Admissions Advisor Dr. Torres, patient and states last OV about 2 weeks ago, no medication changes. Unspecified essential hypertension Stable. On metoprolol Obstructive sleep apnea Compliant with CPAP. Instructed to bring CPAP to DOS. Asthma Stable, no use of inhaler, denies pneumonia in the last [address] Strickland at [facility] Anticipated difficulty with intubation Remote documentation of difficulty intubation as above by Sebastien Stahl 01/18/2009 Patient denies was ever told to have issues with intubation, no letter. Patient had procedure 09/30/22 and 10/02/22 with difficulty airway, no significant adverse anesthesia event Anesthesia office notified. Type 2 diabetes mellitus (HCC) Stable, BS 90-130 at home, no recent A1C. Will check A1C today. Taking Glipizide, metformin Follow PCP Dr. Quick Implantable Devices: cardiac stent Pt instructed to take blood pressure and heart medications DOS. Pt instructed to Hold metformin and Glipizide DOS. Pt instructed to contact surgeon and prescribing provider for instructions regarding blood thinners. Umanzor Activity Status Index: METS: Walk a block or two on level ground (2.75 METs) DASI Score: 2.75 Patient denies any chest pain or undue shortness of breath with the above physical activity. Clinical Frailty Scale: 3. Well, with treated comorbid disease ARISCAT Score: Age: 51-80 Preoperative SpO2: >=96% Respiratory infection in the last month: No Preoperative anemia: No Surgical incision: peripheral Duration of surgery: 2-3 hrs Emergency procedure: No ARISCAT Score: 19 ANESTHESIA FINDINGS: Intubation History: Significant Anesthesia Considerations: Airway History: Patient denies ever been told with airway problem, had procedure 09/30/22 and 10/02/22 with difficulty airway, no significant adverse anesthesia event Difficult airway documented by an anesthesiologist during past surgical procedure I - PHYSICAL EVALUATION AIRWAY Patient intubated: No. DENTAL Dental findings: teeth intact and missing tooth/teeth. II - ANESTHESIA PLAN Anesthetic Plan: general Beta Su Monitoring Plan Post Procedure Analgesic Plan Prepared for Surgery: CONSULTS: Planned Anesthetic: generalNo Consults Needed (cat): non per surgeon. The Following Tests/Procedures Have Been Initiated: Orders Placed This Encounter PROTHROMBIN TIME/PT Standing Status: Future Number of Occurrences: 1 Standing Expiration Date: 01/18/2023 HGB A1C Standing Status: Future Number of Occurrences: 1 Standing Expiration Date: 01/19/2023 Type and Screen, 30 day Standing Status: Future Number of Occurrences: 1 Standing Expiration Date: 01/18/2023 Order Specific Question: [facility] Planned Surgery or Procedure: Answer: [facility] COVID testing ordered per surgeon. PT, T&S, A1C ordered per BASKET PERSON. I called Dr. Cheng's office and verified with Lianna, patient does not need mupirocin due to recent MRSA infection and currentlyon treatment. ARISCAT risk index interpretation 0 to 25 points: Low risk: 1.6% pulmonary complication rate 26 to 44 points: Intermediate risk: 13.3% pulmonary complication rate 45 to 123 points: High risk: 42.1% pulmonary complication rate Assessment/Plan Osteomyelitis of left femur, unspecified type (HCC) [M86.9] Osteomyelitis of other site, unspecified type (HCC) [M86.9] Pyogenic arthritis of left hip, due to unspecified organism (HCC) [M00.9] PLAN Diagnosis: Planned Procedure: Procedure(s): : Conversion previous hip surgery to left total hip arthroplasty, Remove antibiotic cement spacer (Left) REMOVAL, NON-BIODEGRADABLE DRUG DELIVERY IMPLANT (Left) Instructions Given to Patient: Instructions located in the after visit summary. Patient given verbal and written preop instructions and voices comprehension and compliance. SIGNATURE: Isael Saenz APRN.CNP PATIENT NAME: Dale Sarabia DATE: November 18, 2022 TIME: 11:05 PM PAGER/CONTACT #: documented in this encounterHighland [facility]02-20-2023 Instructions* Patient Instructions* Isael Saenz APRN.CNP - 11/18/2022 11:04 PM EST PATIENT PREOPERATIVE INSTRUCTIONS Your surgeon has scheduled for your procedure at this surgery center: [facility]: [phone], [address] [phone] Please enter through the main entrance and proceed to the blue elevators. The [facility] is located to the left of the blue elevator. Please read below carefully for your personalized instructions. Arrival Time for Surgery: DATE: 11/22/22 - To obtain your ARRIVAL TIME for surgery, call your physician's office the day before your surgery. - If your surgery is scheduled for Friday, call the Friday before. Your surgeon s technical administrator will tell you what time to call the office. Please be aware that emergency situations arise, which may delay or change your surgical time. If this happens, we will notify you as soon as possible and regret any inconvenience. Requirement for Vaccinations : 72 - hour period between getting vaccine and date of surgery. Dietary Restrictions: Nothing to eat after midnight. You may have 12 ounces of clear liquids ( water, Gatorade, apple juice, carbonated beverage, clear tea or black coffee) until 4 hours before your surgery. Stop ALL clears 2 hours prior to Arrival time. This is important because otherwise your surgery mayhave to be cancelled. Blood Thinning Medications: - Stop NSAIDS (Ibuprofen, Advil, Aleve, Motrin, Celebrex, Mobic, etc.) 7 days before surgery, as directed by your surgeon. You may take Tylenol (Acetaminophen) or any of your pain medications that do not contain aspirin orNSAIDS as needed. IF YOU TAKE ANY OF THE FOLLOWING BLOOD THINNERS, PLEASE CONTACT YOUR SURGEON AND THE PHYSICIAN WHO PRESCRIBES IT FOR YOU IN ORDER TO GET PERIOPERATIVE INSTRUCTIONS SOON POSSIBLE. BLOOD THINNERS: Aspirin , Coumadin, Plavix, Eliquis, Pradaxa, Xarelto, Lovenox, Brilinta, Effient, Savaysa, Arixtra, etc - Stop Vitamin E, fish oil, multivitamins, Marijuana, CBD oil and other over the counter herbals and dietary supplements 7 days before surgery. - This would not apply to cancer patients who are prescribed Marinol or any other prescription formon marijuana or CBD. - Exception Dr. Richards and Dr. Carranza want their patients NPO at midnight. Medications: Approved medications to take the morning of surgery with a sip of water: BP, HCTZ, Heart, thyroid, psych, seizure, and pain medications excluding NSAIDS. Use inhalers as prescribed. Please bring inhalers. Diabetes Please follow up with the provider that manages your diabetes and how to prepare you for surgery. If you are taking the following medications for Type 2 diabetes: Canagliflozin (INVOKANA), dapagliflozin (FARXIGA), and empagliflozin (JARDIANCE) should each be discontinued at least 3 days before scheduled surgery. Ertugliflozin (STEGLATRO) should be discontinued at least four days before scheduled surgery. Bring your Glucometer to [facility] if you are scheduled in [place] for OR. If you have a stimulator, implant or pump that requires a remote please bring the remote with you day of surgery. Erectile dysfunction: If you take any medications for erectile dysfunction- Cialis (Tadalafil), Levitra, Staxyn, (Vardenafil), Viagra (Sildenenafil). Please do not take these for 48 hours before surgery. Pain Medications: Tylenol for pain as needed and if you are not allergic to. Medications to be taken with small amount of fluid on the morning of surgery: If you start any new medications after today's visit, please contact the surgeon's office. Important Reminders: - If you use CPAP/BIPAP, bring the machine with you to the surgery center. - If you are prescribed inhalers for breathing, continue using them AND bring them to the surgery center. - Candy, mints, gum and tobacco products are NOT permitted the morning of surgery. - Hearing aids, dentures and glasses may be worn the morning of surgery. - NO jewelry, body piercings, makeup, hairpins or contacts are to be worn the day of surgery. - Oral hygiene and a shower or bath is required the evening before or the morning of surgery. Use the Hibiclens body wash supplied to you along with the instruction. - NO lotion, creams, powders or deodorants on the skin the day of surgery - Wear loose, comfortable clothing that will accommodate bandages. - Your length of stay will be determined by your surgeon - You will need to have someone else (Family or friend) drive you home once discharged from the hospital. You are not allowed to drive yourself home after surgery. - YOU MUST HAVE A RESPONSIBLE CHUTE LOADER TAKE YOU HOME. A SIZE TESTER, CAB OR UBER CHUTE LOADER CANNOT BE MADEA RESPONSIBLE CHUTE LOADER. - We recommend that a responsible person stays with you overnight to take care of you. - You cannot stay in a hotel alone after outpatient surgery. You will not be permitted to have yoursurgery, if you do not have someone to take care of you. CCAG: Given COVID 19 pandemic, one visitor is allowed in the hospital. They may wait in the surgerywaiting room while you are in surgery but must wear a mask. Only one visitor will be permitted to visit you while your admitted after surgery. If you develop symptoms such as a fever, cold, or flu, or have other changes to your health within TWO DAYS of scheduled surgery or the morning of surgery, please contact the surgery center above. Personal Belongings: - Leave ALL valuables and money at home or with family members. - You will need a form of ID and insurance card to check in the morning of surgery. - You will have to wear a hospital gown during your stay but if you wish to bring undergarments forafter surgery you may. Ambulatory surgery center [place] - Orthopedic patients needing a walker should bring the walker into the building day of surgery. Orthopedic patients having surgery [facility] listed as outpatient should bring their walker into the building. [facility] to [facility] should leave their walkers in the car or with a family member. Jennifericlens buddy Saenz APRN.TELEVISION SPECIALIST 11/18/22 documented in this [facility]High[facility]23 Miscellaneous Notes* Telephone Encounter - Toma Novak - 11/12/2022 9:01 AM EST Covid orders for upcoming surgery. Toma Novak November 12, 2022 9:06 AM documented in this encounterHighland [facility] Hospital02-13-2023 Instructions* Patient Instructions* Linsey Garber MD - 11/11/2022 10:42 AM EST -To discontinue daptomycin and remove PICC line -To start Bactrim DS 1 p.o. twice daily from tomorrow, to continue until ID clinic follow-up -Do not take potassium supplements while on Bactrim -Avoid dehydration -Seek medical attention for any new rash or any new symptoms concerning for side effects of Bactrim -ID clinic follow-up 3-4 weeks documented in this encounterHighland [facility] Hospital02-13-2023 Miscellaneous Notes* Telephone Encounter - Chantel Glasgow RN - 11/11/2022 10:24 AM EST External copat labs entered. Chantel Glasgow RN documented in this encounterHighland [facility]02-13-2023 History of Present illness Narrative* Linsey Garber MD - 11/11/2022 10:01 AM EST VIRTUAL VISIT PROGRESS NOTE This is a virtual visit using [employer] . It required patient-provider interaction for the medical decision making as documented below. Dale Sarabia is a 67 year old male seen for fu of left hip MRSA infection. 09/27/2022 - 10/05/2022: Admitted at [facility] for left hip septic arthritis and iliopsoas bursa/gluteal abscesses. Blood cultures 09/27 grew MRSA. Underwent left hip diagnostic arthrocentesis on 09/29, grew MRSA. Taken to the OR on 09/30 for muckleshoot joint resection with partial excision of the left acetabulum with osteomyelitis, antibiotic spacer placement, and irrigation and debridement of deep posterior pelvic abscess and deep anterior pelvic abscess. Bone culture grew MRSA. Patient was discharged with daptomycin for 6 weeks through 11/11/2021. He is currently at a SNF rehab to complete the antibiotic course. He is tolerating daptomycin well.CK total has remained within normal limits. He is symptomatically feeling better with less joint pain. No fever or chills. No nausea or vomiting or diarrhea. Has some posterior neck pain, mild. No focal weakness. No muscle pain. No nausea or vomiting or diarrhea. No cough. Has good appetite. Weekly safety monitoring labs were reviewed: 11/10/2022 WBC count 7.3, hemoglobin 10.8, creatinine 0.7, ALT 27, CK 33, C- reactive protein 32.9 = 3.29 (CRP was 21.7 a month ago at [place] [facility] (normal < 0.9) HISTORY REVIEWED (electronic chart updated): PAST MEDICAL HISTORY Diagnosis Date CAD (coronary artery disease) COPD (chronic obstructive pulmonary disease) (HCC) Diabetes mellitus (HCC) Dysthymic disorder Depression (non-psychotic) Hyperlipidemia Hypotestosteronism Kidney stones Obesity, unspecified Obesity Renal cell carcinoma (HCC) 09/29/2010 no treatment Unspecified essential hypertension Essential hypertension Unspecified hypothyroidism Hypothyroidism Unspecified sleep apnea Sleep apnea Vertigo PAST SURGICAL HISTORY Procedure Laterality Date ECHO DOPPLER COLOR FLOW 07/21/98 IR VASCULAR ACCESS TEAM PICC INSERTION RADIO 10/03/2022 PAST SURGICAL HISTORY OF many multiple surgeries, LEFT eye; corneal transplant last (2005) Desai PAST SURGICAL HISTORY OF 11/2010 litotripsy and stents placed PAST SURGICAL HISTORY OF 2010 stents placed led PAST SURGICAL HISTORY OF 2010 partial nephrectomy PULMONARY FUNCTION TEST 08/01/98 TONSILLECTOMY PRIMARY/SECONDARY <AGE 10 childhood FAMILY HISTORY Problem Relation Age of Onset Coronary Artery Disease Mother first disease age 70's Diabetes Mother Asthma Brother Prostate Cancer Other none Colon Cancer Other none Diabetes Sister Diabetes Brother Social History Tobacco Use Smoking status: Former Packs/day: 0.50 Years: 15.00 Pack years: 7.50 Types: Cigarettes Quit date: 02/20/1985 Years since quittin.7 Smokeless tobacco: Never Vaping Use Vaping Use: Never used Substance Use Topics Alcohol use: No Drug use: No Current Outpatient Medications Medication Sig DAPTOmycin (CUBICIN) 500 mg injection Inject 650 mg intravenously once daily. glipiZIDE (GLUCOTROL XL) 5 mg 24 hr tablet Take 5 mg by mouth once daily. Menthol-Zinc Oxide (CALMOSEPTINE) 0.44-20.6 % Apply 1 application to affected area every 4 hours asneeded (coccxy sore). hydroxyurea (HYDREA) 500 mg capsule Take 1 capsule by mouth once daily. gabapentin (NEURONTIN) 100 mg capsule Take one capsule in AM, one capsule at 1PM & three capsules at bedtime. levothyroxine (SYNTHROID) 25 mcg tablet Take 25 mcg by mouth once daily. metFORMIN (GLUCOPHAGE) 1,000 mg tablet Take one tablet in AM & 1 1/2 tablets in PM. TOPROL XL 25 mg 24 hr tablet Take 25 mg by mouth once daily. levothyroxine (SYNTHROID) 200 mcg tablet Take 200 mcg by mouth once daily. Aspirin 81 mg Tab Take 81 mg by mouth once daily. No current facility-administered medications for this visit. ALLERGIES Allergen Reactions Chocolate Shortness of Breath Environmental [Othe* Seasonal, food allergies Fennel Seed Shortness of Breath Milk Shortness of Breath Theophylline Intolerance very lethargic and muscle cramps REVIEW OF SYSTEMS: GENERAL: feeling well without fatigue, no recent change in weight HEENT: denies TENORIO, change in hearing or vision, no other ENT complaints NECK: As in HPI RESPIRATORY: no cough, no wheezing or shortness of breath CARDIOVASCULAR: no chest pain, no palpitations GI: normal appetite, tolerating PO well, BMs normal, and no abdominal pain MUSCULOSKELETAL: Left hip joint pain improving SKIN: no rash PHYSICAL EXAMINATION: VIDEO EXAM: (if completed, performed via video enabled technology) GENERAL: alert and appropriate, in no distress, well-hydrated, well nourished, and happy, smiling, interactive SKIN: no rash noted HEAD: normocephalic, no abnormality or lesion noted EYES: no injection and visual acuity is grossly normal EARS: hearing grossly normal NOSE: external nose normal without rhinorrhea NECK: Neck supple ASSESSMENT: (A49.02) MRSA infection (primary encounter diagnosis) (M00.052) Staphylococcal arthritis of left hip (HCC) (Z79.2) Receiving intravenous antibiotic treatment as outpatient Osteomyelitis of the femoral head and acetabulum Abscesses of the iliopsoas bursa and gluteus regions S/p I&D of left hip joint and surrounding abscesses, muckleshoot joint resection, spacer placement 09/30/2022 Receiving IV daptomycin as outpatient Elevated CRP, overall improving Comorbidities-diabetes mellitus, COPD, renal cell cancer s/p resection 2015 PLAN: --Completing 6 weeks of IV daptomycin today --To start Bactrim DS 1 p.o. twice daily, to continue until ID clinic follow-up after 3-4 weeks --To follow-up with Ortho --To recheck CRP, potassium, and creatinine upon next follow-up --Advised to stop taking potassium supplements while on Bactrim --Advised to avoid dehydration while taking Bactrim --Advised to seek medical attention for any new rash or any new symptoms concerning for side effects of bactrim Patient Instructions -To discontinue daptomycin and remove PICC line -To start Bactrim DS 1 p.o. twice daily from tomorrow, to continue until ID clinic follow-up -Do not take potassium supplements while on Bactrim -Avoid dehydration -Seek medical attention for any new rash or any new symptoms concerning for side effects of Bactrim -ID clinic follow-up 3-4 weeks I spent a total of 25 minutes on the date of the service which included preparing to see the patient, [id number] patient care, and completing clinical documentation Linsey Garber MD documented in this encounterHighland [facility] Hospital02-13-2023 Miscellaneous Notes* Telephone Encounter - Linsey Garber MD - 11/11/2022 9:28 AM EST Do we have new lab results on this patient from the SNF? Did they do CRP and CK? Thanks. documented in this encounterHighland [facility] Hospital02-10-2023 Miscellaneous Notes* Telephone Encounter - Linsey Garber MD - 11/08/2022 11:23 AM EST Will see him for fu on 11/11 before outlining further plans. thanks * Telephone Encounter - Chantel Glasgow RN - 11/08/2022 10:10 AM EST Copat stop date 11/11/22. Can stop date be honored and PICC be removed after last dose of daptomycin? Chantel Glasgow RN documented in this encounterHighland District Hospital02-09-[address] Reyes [facility] November 07, 2022 7:55pm Note Date/Time November 07, 2022 7 :48pm [facility] Medical Records Department [address] [place] [address] Discharge Summary 11/07/221943 MR#: [id number] Acct: [id number] Name: DALE SARABIA Rep #:[id number] : 1955 67 From: Wenceslao Reyes MD PCP: Dr. Mohinder Quick MD Status:ADM IN Location: [place] [address] Providers Date of Admission: 10/05/22 Primary Care Physician: Dr. 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 EMERGENT Consult: No MD Notified: Yes Date Notified: 10/07/22 Time Notified: 10:03 Method of Notification: Answering Service 10/30/22 17:21 Consult: Podiatry Routine Consulting Provider: Sarahy Sofia Reason for Consult: General foot care. EMERGENT Consult: No Notified: Yes Date Notified: 11/01/22 Time Notified: 08:55 Method of Notification: Verbal Reason For Visit: SEPTIC ARTHRITIS OF L HIP Diagnosis Discharge Diagnosis (1) MRSA bacteremia: Status: Acute Code(s): R78.81 - Bacteremia; B95.62 - Methicillin resistant Staphylococcus aureus infection as the cause of diseases classified elsewhere (2) Osteomyelitis of left hip: Status: Acute Code(s): M86.9 - Osteomyelitis, unspecified Plan 67 year old male with below past medical history hospitalized for MRSA sepsis secondary to osteomyelitis/abscess left hip, underwent left hip debridement/spacer implantation, admitted to TCU with debility, here for rehabilitation, strengthening, intravenous antibiotics, prior to discharge home with . * Debility - PT/OT. * Pain - Tramadol 50mg q6h prn pain (4-5), Oxycodone 5mg q4h prn pain (6-10). * Bowel - Miralax 17gm daily, senna/colace 2 tablets bid, Dulcolax 10mg pr x 1 prn, MOM 30ml po x 1 prn. * Adult immunization - Administer pneumonia vaccine, covid19 vaccine, flu vaccine as appropriate. * DVT prophylaxis - Done with DVT prophylaxis. * Coronary artery disease - Metoprolol succinate 25mg daily, Aspirin 81mg daily. 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 Morgan. * Neuropathic pain - Gabapentin 100mg bid, 300mg qhs. * Diabetes Mellitus II - Metformin 500mg bid, Glipizide 5mg daily. * P. Vera - Hydroxyurea 500mg daily. * Hypothyroidism - Levothyroxine 225mcg daily. * Skin irritation - Calmoseptine topical tid. * Nutrition - Lester 1 packet po bidcm. * GI prophylaxis - Lactobacillus 1 capsule po bid. * Anxiety - Buspar 7.5mg twice daily, Lorazepam 0.5mg q6h prn. * Hypokalemia - KCL ER 20meq daily. * Gas - Simethicone 80mg tid. * Dry nares - Sodium chloride 2 sprays nasal bid prn. * BPH - Tamsulosin 0.4mg daily. Medications at Discharge Home Medications aspirin 81 mg chewable tablet 81 mg PO DAILY@0800 ANTIPLATELET 03/17/16 hydroxyurea 500 mg capsule 500 mg PO DAILY Ask Dr 12/17/18 gabapentin 100 mg capsule 100 mg PO 0600,1300 Neuropathy 09/13/22 gabapentin 100 mg tablet 300 mg PO QHS Neuropathy 10/05/22 glipizide 5 mg tablet, extended release 24 hr 5 mg PO DAILY DM 10/05/22 menthol 0.44 %-zinc oxide 20.6 % topical cream 1 applic topical TID Skin protection 10/05/22 metoprolol succinate 25 mg tablet,extended release 24 hr 25 mg PO DAILY BLOOD PRESSURE 10/05/22 acidophilus 25 million cell-pectin, citrus 100 mg tablet 1 tab PO BID #0 tabs 11/07/22 arginine 7 gram-glutam 7 gram-CaHMB 1.5 [id number] oral pwd pkt (Lester (with collagen)) 1 packet PO BIDCM 30 days #60 ea 11/07/22 buspirone 5 mg tablet 7.5 mg PO BID 30 days #90 tabs 11/07/22 levothyroxine 100 mcg tablet 200 mcg PO DAILY 30 days #60 tabs 11/07/22 lorazepam 0.5 mg tablet 0.5 mg PO Q6H PRN PRN Anxiety/Restlessness/Sleep 7 days #28 tabs 11/07/22 metformin 500 mg tablet 500 mg PO BIDCM 30 days #60 tabs 11/07/22 potassium chloride 20 mEq tablet,extended release(part/cryst) (Klor-Con M) 20 meq PO BREAKFAST 30 days #30 tabs 11/07/22 simethicone 80 mg chewable tablet 80 mg PO TIDPC 30 days #90 tabs 11/07/22 sodium chloride 0.65 % nasal spray aerosol (Deep Sea Nasal) 2 spray NASAL BID PRN PRN NASAL DRYNESS #0 mL 11/07/22 tamsulosin 0.4 mg capsule 0.4 mg PO DAILY@1730 #0 caps 11/07/22 tramadol 50 mg tablet 50 mg PO Q6H PRN PRN Pain Score 4-5 7 days #28 tabs 11/07/22 Hospital Course Operations - (See below.) Procedures None Summary of Care Provided Minutes Spent on Discharge: 35 Hospital Course: 67 year old male with below past medical history hospitalized for MRSA sepsis secondary to osteomyelitis/abscess left hip, underwent left hip debridement/spacer implantation, admitted to TCU with debility, here for rehabilitation, strengthening, intravenous antibiotics, prior to discharge home with . 10/15/2022 Right elbow abscess grew Proteus Mirabilis, treated with 7 days of Amoxicillin per Dr. Morgan. Buspar 7.5mg twice daily added along with Lorazepam for intractable anxiety. Resident also has remote counseling sessions. Discharge home with 11/12/2022, [facility] PT/OT/SN. Physical Exam Const alert General Appearance: cooperative HEENT normocephalic Eyes PERRL and EOMs intact bilaterally Neck supple, no JVD and no carotid bruits Resp normal respiratory effort, normal air movement and clear to auscultation bilaterally Cardio regular rate and regular rhythm GI normal to inspection, nondistended, normoactive bowel sounds, non-tender and non-distended Extremity normal capillary refill General Extremity: Negative for edema Skin no rashes or lesions noted General Skin Exam: no breakdown Psych affect normal Appearance: appropriate Medical Records Data Medical Nutrition Assessment Dietitian: Malnutrition Criteria Met Start: 10/06/22 14:16 Freq: Status: Active Protocol: Document 10/30/22 17:31 SLA (Rec: 10/30/22 17:32 [facility] [id number]) Nutrition Malnutrition Evidence of Malnutrition Exists Yes Malnutrition (moderate): Acute Illness/Injury Evidenced By Suboptimal Energy Intake ( Moderate),Weight Loss (Severe) Intake Problem Increased Nutrient Needs (specify) Etiology protein related to skin status and recent surgeries Signs/Symptoms as evidenced by PI to buttock/ surgical incision Status Active Problem Inadequate Oral Intake Status Inactive Problem Clinical Problem Acute Disease or Injury Related Malnutrition Etiology related to recent surgery, anxiety and inability to consume adequate nutrition to meet est nutritional needs Signs/Symptoms as evidenced by now w/ additional 4% wt loss x 1 wk - and 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 Will continue Lester bid to help w/ wound healing - then d /c once skin healed and no longer appropriate Weight / BMI Weight Weight: 94.982 kg ABG / Lab / Microbiology Data Result Diagrams: 11/03/22 07:18 11/03/22 07:18 Laboratory: Laboratory Results - last 24 hr 11/07/22 06:10: POC Glucose 125 H Microbiology: Microbiology 10/15/22 18:30 Wound - Elbow Gram Stain - Final 10/15/22 18:30 Wound - Elbow Wound Culture - Final Proteus mirabilis 10/11/22 10:14 Nasal Secretion SARS-CoV-2 Antigen (Rapid) - Final 10/09/22 06:45 Nasal Secretion SARS-CoV-2 Antigen (Rapid) - Final 10/07/22 20:00 Stool C. difficile DNA Amplification - Final 10/07/22 13:35 Nasal Secretion SARS-CoV-2 Antigen (Rapid) - Final D/C Instructions Discharge Diet: No restrictions Discharge Activity: Return to Normal Activity, May Shower and Use Walker Weight Bearing Status: Weight bearing as tolerated Call your doctor if you observe: Fever of 101 or Higher, Inability to urinate, Inability to have a bowel movement, Shortness of breath, Dizziness, Fainting spells, Swelling in the ankles, Chest pain and Uncontrolled pain Additional Instructions: Discharge home with 11/12/2022, [facility] PT/OT/SN. Please Follow Up With: Mohinder Quick MD When: 1 week. Meaningful Use Info Meaningful Use Diagnoses (Choose all that apply): None applicable Discharge Plan Admission Admit Date/Time: 10/05/22 21:00 Primary Reason for Your Visit: Debility. Attending Provider: Wenceslao Reyes Chi Primary Care Provider: Mohinder Quick Consulting Providers: Florencio Morgan ; Sarahy Sofia Instructions Additional Instructions / Restrictions: Discharge home with 11/12/2022, [facility] PT/OT/SN. Discharge Orders/Prescriptions Prescriptions: New buspirone 5 mg Tablet 7.5 mg PO BID 30 Days Qty: 90 0RF metformin 500 mg Tablet 500 mg PO BIDCM 30 Days Qty: 60 0RF tramadol 50 mg Tablet 50 mg PO Q6H PRN PRN (Reason: Pain Score 4-5) 7 Days Qty: 28 0RF levothyroxine 100 mcg Tablet 200 mcg PO DAILY 30 Days Qty: 60 0RF potassium chloride [Klor-Con M20] 20 mEq Tablet,Er Particles/Crystals 20 meq PO BREAKFAST 30 Days Qty: 30 0RF lorazepam 0.5 mg Tablet 0.5 mg PO Q6H PRN PRN (Reason: Anxiety/Restlessness/Sleep) 7 Days Qty: 28 0RF tamsulosin 0.4 mg Capsule 0.4 mg PO DAILY@1730 Qty: 0 0RF simethicone 80 mg Tablet,Chewable 80 mg PO TIDPC 30 Days Qty: 90 0RF Deep Sea Nasal 0.65 % Aerosol,[place] 2 spray NASAL BID PRN PRN (Reason: NASAL DRYNESS) Qty: 0 0RF acidophilus-pectin, citrus 25 million cell -100 mg Tablet 1 tab PO BID Qty: 0 0RF Lester (with collagen) 7-7-1.5 gram Powder In Packet 1 packet PO BIDCM 30 Days Qty: 60 0RF Continued aspirin 81 MG tablet,chewable 81 mg PO DAILY@0800 Label Comments: heart health hydroxyurea 500 mg capsule 500 mg PO DAILY gabapentin 100 mg capsule 100 mg PO 0600,1300 gabapentin 100 mg Tablet 300 mg PO QHS menthol-zinc oxide 0.44-20.6 % Cream 1 applic TOPICAL TID Rx Instructions: Apply to coccyx glipizide 5 mg tablet extended release 24hr 5 mg PO DAILY metoprolol succinate 25 mg tablet extended release 24 hr 25 mg PO DAILY Discontinued Adult Probiotic 3 billion cell capsule 3,000 mmu cells PO DAILY Rx Instructions: administer with a meal omega-3 fatty acids [Fish Oil Concentrate] 1,000 mg capsule 1,000 mg PO DAILY multivitamin Tablet 1 tab PO DAILY buspirone 5 mg tablet 7.5 mg PO BID metformin 500 mg tablet 500 mg PO BID nutritional supplements Powder PO lorazepam [Ativan] 0.5 mg tablet 0.5 mg PO .Q6 PRN oxycodone 5 mg tablet 5 mg PO Q4H PRN tramadol 50 mg tablet 50 mg PO Q6H PRN levothyroxine 200 mcg tablet 225 mcg PO DAILY Rx Instructions: take with a 25 mcg tamsulosin 0.4 mg Capsule 0.8 mg PO DAILY@1730 Qty: 60 0RF daptomycin 500 mg Recon Soln 500 mg IV DAILY Rx Instructions: administer over 30 mins valsartan-hydrochlorothiazide 80-12.5 mg tablet 1 tab PO DAILY Qty: 90 3RF hydrocodone-acetaminophen 5-325 mg tablet 1 tab PO Q4H PRN PRN (Reason: Pain Score 4-10) 7 Days Qty: 30 0RF celecoxib 100 mg capsule 100 mg PO BID Qty: 20 0RF Referrals / Follow Up: Mohinder Quick MD [Primary Care Provider] - Disposition Disposition (needs filled in before D/C Order can be placed): Home Health Service 11/07/221954 <Electronically signed by Wenceslao Reyes MD> Cosigner Signature (if applicable): CC: Dr. Mohinder Quick MD; Dr. Wenceslao Reyes MD~ Signed [facility] Work Phone: [phone] 194-182102-09-[address] Morgan [facility] November 07, 2022 9:38am Note Date/Time November 07, 2022 9 :38am [facility] Medical Records Department [address] [place] [address] Progress Note - Infect Disease 11/07/22935 MR#: [id number] Acct: [id number] Name: DALE SARABIA Rep #:[id number] : 1955 67 From: Florencio mitchell MD PCP: Dr. Mohinder Quick MD Status:ADM IN Location: [place] [address] Physical Exam Narrative Feeling well. No fever, no n/v/d. Hip doing well. Const alert and no apparent distress Resp normal air movement and clear to auscultation bilaterally Cardio regular rate and regular rhythm GI soft to palpation, non-tender and non-distended Skin Skin Narrative: L hip incision well healed ID ID: Route of nutrition/ use of supplements: [] Nutritional Intake: [] IV Site: [] Rangel Catheter: [] Assessment & Plan Assessment/Plan (1) MRSA bacteremia: PLAN: MRSA bacteremia with L hip osteo requiring I&D and spacer placement at [facility] 09/30/22. Discharged to TCU on dapto with stop date 11/11/22. Checking LFT and CK to weekly labs. Hip doing well, CRP much improved. Plan on abx to stop and picc removal 11/11/22 with close ortho followup. Will follow as needed (2) Osteomyelitis of left hip: 11/07/22937 <Electronically signed by Florencio Morgan MD> Cosigner Signature (if applicable): CC: ~ Signed [facility] Work Phone: 1(276) 113-853902-07-[address] Reyes [facility] November 05, 2022 7:08pm Note Date/Time November 05, 2022 7 :06pm [facility] Medical Records Department [address] [place] [address] Progress Note - [facility] 11/05/22 1900 MR#: [id number] Acct: [id number] Name: DALE SARABIA Rep #:[id number] : 1955 67 From: Wenceslao Reyes MD PCP: Dr. Mohinder Quick MD Status:ADM IN Location: [place] [address] Subjective Subjective Resident seen, examined for regulatory visit. He has no new problems, concerns,issues, complaints. His anxiety is improving with buspar, and remote counselingsessions. Objective Data Objective Data Vital Signs: Vital Signs Temp Pulse Resp BP Pulse Ox O2 Del Method O2 Flow Rate 97.5 F L 104 H 18 118/65 98 Room Air 95 11/04/22 15:43 11/05/22 05:23 11/04/22 21:00 11/05/22 05:23 11/04/22 21:00 11/04/22 21:00 10/22/22 09:26 FiO2 21 10/26/22 22:15 Oxygen Flow Rate (L/min) 95 Oxygen Delivery Method Room Air Weight: 94.982 kg Intake & Output: Intake and Output for Last 24 Hours 11/03/22 11/04/22 11/05/22 23:59 23:59 23:59 Intake Total 963 / 963 1393 / 1393 682.5 / 682.5 Output Total 800 / 800 Balance 163 / 163 1393 / 1393 682.5 / 682.5 Medical Nutrition Assessment Dietitian: Malnutrition Criteria Met Start: 10/06/22 14:16 Freq: Status: Active Protocol: Document 10/30/22 17:31 SLA (Rec: 10/30/22 17:32 SLA [id number]) Nutrition Malnutrition Evidence of Malnutrition Exists Yes Malnutrition (moderate): Acute Illness/Injury Evidenced By Suboptimal Energy Intake ( Moderate),Weight Loss (Severe) Intake Problem Increased Nutrient Needs (specify) Etiology protein related to skin status and recent surgeries Signs/Symptoms as evidenced by PI to buttock/ surgical incision Status Active Problem Inadequate Oral Intake Status Inactive Problem Clinical Problem Acute Disease or Injury Related Malnutrition Etiology related to recent surgery, anxiety and inability to consume adequate nutrition to meet est nutritional needs Signs/Symptoms as evidenced by now w/ additional 4% wt loss x 1 wk - and 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 Will continue Lester bid to help w/ wound healing - then d /c once skin healed and no longer appropriate Lab / Micro Data Result Diagrams: 11/03/22 07:18 11/03/22 07:18 Labs: Laboratory Results - last 24 hr 11/05/22 06:28: POC Glucose 138 H Micro: Microbiology 10/15/22 18:30 Wound - Elbow Gram Stain - Final 10/15/22 18:30 Wound - Elbow Wound Culture - Final Proteus mirabilis 10/11/22 10:14 Nasal Secretion SARS-CoV-2 Antigen (Rapid) - Final 10/09/22 06:45 Nasal Secretion SARS-CoV-2 Antigen (Rapid) - Final 10/07/22 20:00 Stool C. difficile DNA Amplification - Final 10/07/22 13:35 Nasal Secretion SARS-CoV-2 Antigen (Rapid) - Final Radiography Diagnostic Testing: Radiology Impression Pelvis X-Ray 11/05/22 06:00 IMPRESSION: Stable examination. Electronically Signed: Anshlu Arboleda MD at 14:37 EST , Physical Exam Const alert General Appearance: cooperative HEENT normocephalic Eyes PERRL and EOMs intact bilaterally Neck supple, no JVD and no carotid bruits Resp normal respiratory effort, normal air movement and clear to auscultation bilaterally Cardio regular rate and regular rhythm GI normal to inspection, nondistended, normoactive bowel sounds, non-tender and non-distended Extremity normal capillary refill Extremity Narrative: PICC right upper extremity. General Extremity: Negative for edema Skin no rashes or lesions noted General Skin Exam: no breakdown Psych affect normal Appearance: appropriate Assessment & Plan Assessment/Plan (1) Debility: (2) MRSA bacteremia: (3) Osteomyelitis of left hip: (4) Iliopsoas abscess: (5) Abscess, gluteal, left: (6) Polycythemia vera: (7) History of renal cell carcinoma: (8) Coronary artery disease: (9) Diabetes mellitus: (10) Hypertension: (11) Hyperlipidemia: (12) Hypothyroidism: PLAN: Plan 67 year old male with below past medical history hospitalized for MRSA sepsis secondary to osteomyelitis/abscess left hip, underwent left hip debridement/spacer implantation, admitted to TCU with debility, here for rehabilitation, strengthening, intravenous antibiotics, prior to discharge home with . * Debility - PT/OT. * Pain - Tramadol 50mg q6h prn pain (4-5), Oxycodone 5mg q4h prn pain (6-10). * Bowel - Miralax 17gm daily, senna/colace 2 tablets bid, Dulcolax 10mg pr x 1 prn, MOM 30ml po x 1 prn. * Adult immunization - Administer pneumonia vaccine, covid19 vaccine, flu vaccine as appropriate. * DVT prophylaxis - Done with DVT prophylaxis. * Coronary artery disease - Metoprolol succinate 25mg daily, Aspirin 81mg daily. 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 Morgan. * Neuropathic pain - Gabapentin 100mg bid, 300mg qhs. * Diabetes Mellitus II - Metformin 500mg bid, Glipizide 5mg daily. * P. Vera - Hydroxyurea 500mg daily. * Hypothyroidism - Levothyroxine 225mcg daily. * Skin irritation - Calmoseptine topical tid. * Nutrition - Lester 1 packet po bidcm. * GI prophylaxis - Lactobacillus 1 capsule po bid. * Anxiety - Buspar 7.5mg twice daily, Lorazepam 0.5mg q6h prn. * Hypokalemia - KCL ER 20meq daily. * Gas - Simethicone 80mg tid. * Dry nares - Sodium chloride 2 sprays nasal bid prn. * BPH - Tamsulosin 0.4mg daily. Capacity Capacity Assessment Tool Can the patient make a choice & communicate that choice?: Yes Can the patient understand benefits, risks and alternatives?: Yes Can the patient make a logical, rational choice?: Yes Is the choice the patient makes consistent w/ their values?: Yes Is there an impending, emergent risk to the patient?: No Does the patient have an Advance Directive?: No Is there a Surrogate Available?: Yes i.e. HCPOA: Yes i.e. close relative (spouse, child, parent, sibling)?: Yes 11/05/221907 <Electronically signed by Wenceslao Reyes MD> Cosigner Signature (if applicable): CC: ~ Signed [facility] Work Phone: 1(909) 897-982802-03-[address] Sofia [facility] November 01, 2022 6:32pm Note Date/Time November 01, 2022 6 :31pm [facility] Medical Records Department [address] [place] [address] Consultation 11/01/221815 MR#: [id number] Acct: [id number] Name: DALE SARABIA Rep #:[id number] : 1955 67 From: Sarahy Sofia DPM PCP: Dr. Mohinder Quick MD Status:ADM IN Location: [facility] TCU13-1 Assessment & Plan Assessment/Plan (1) Fissure in skin of foot: PLAN: Area debrided without incident. Monitor. Pt encouraged to wear shoes whileambulating to reduce callus build up. Also apply lotion daily. (2) Lymphedema: (3) Diabetes: PLAN: Perform regular diabetic foot checks and follow up with podiatry upon discharge. PLAN: Plan Foot examination performed, along with routine diabetic foot care. We discussed wearing shoes and monitoring feet. HPI Consult Data Date of Consult: 11/01/22 HPI Narrative Reason for Consultation: routine diabetic foot care HPI Narrative: DALE SARABIA, is a 67 M who presents [facility] Medical History Anemia Asthma Atherosclerotic heart disease of [place] coronary artery without angina pectoris Back pain Benign prostatic hypertrophy COPD (chronic obstructive pulmonary disease) DDD (degenerative disc disease), cervical Degeneration of intervertebral disc of lumbar region Degenerative disc disease, cervical Depression Diabetes CLARK (dyspnea on exertion) Essential (primary) hypertension Hearing difficulty of both ears History of renal cell cancer Hyperlipidemia Hypothyroidism Instability of medial collateral ligament of knee Kidney disease Lesion of sciatic nerve Lung disease Meniscus degeneration Nephrolithiasis Obesity Obstructive sleep apnea Osteoarthritis, knee 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 Over 63 years old Palpitations Polycythemia Precordial chest pain Pulmonary embolism (06/21/18) Restless legs syndrome Right elbow pain Right knee pain Rupture of right biceps tendon Sciatica Scoliosis of thoracic spine Secondary polycythemia Segmental and somatic dysfunction of cervical region Segmental and somatic dysfunction of cervical region Segmental and somatic dysfunction of lumbar region Segmental and somatic dysfunction of lumbar region Segmental and somatic dysfunction of pelvic region Segmental and somatic dysfunction of thoracic region Segmental and somatic dysfunction of thoracic region Shortness of breath Thyroid disease Tinnitus of both ears Trochanteric bursitis, left hip Type II diabetes mellitus Home Medications aspirin 81 mg chewable tablet 81 mg PO DAILY@0800 ANTIPLATELET 03/17/16 [History Last Taken 09/12/22] hydroxyurea 500 mg capsule 500 mg PO DAILY Cheyenne Espinoza 12/17/18 [History Last Taken 09/12/22] lactobacillus combination no.8 3 billion cell capsule (Adult Probiotic) 3,000 mmu cells PO DAILY 02/08/21 [History Last Taken 09/12/22] multivitamin 1 tab PO DAILY 02/08/21 [History Last Taken 09/12/22] omega-3 fatty acids 1,000 mg capsule (Fish Oil Concentrate) 1,000 mg PO DAILY 02/08/21 [History Last Taken 09/12/22] valsartan 80 mg-hydrochlorothiazide 12.5 mg tablet 1 tab PO DAILY #90 tabs 07/16/22 [Rx Last Taken 09/12/22] levothyroxine 200 mcg tablet 225 mcg PO DAILY thyroid 08/03/22 [History Last Taken 09/12/22] tamsulosin 0.4 mg capsule 0.8 mg PO DAILY@1730 #60 caps 08/09/22 [Rx Last Taken 09/12/22] gabapentin 100 mg capsule 100 mg PO 0600,1300 Neuropathy 09/13/22 [History Last Taken 09/12/22] hydrocodone-acetaminophen 5-325mg 5mg-325mg 1 tab PO Q4H PRN PRN Pain Score 4- 107 days #30 tabs 09/16/22 [Rx Last Taken Unknown] celecoxib 100 mg capsule 100 mg PO BID #20 caps 09/25/22 [Rx Last Taken Unknown] daptomycin 500 mg intravenous solution 500 mg IV DAILY Antibiotic 10/05/22 [History Last Taken Unknown] gabapentin 100 mg tablet 300 mg PO QHS Neuropathy 10/05/22 [History Last Taken Unknown] glipizide 5 mg tablet, extended release 24 hr 5 mg PO DAILY DM 10/05/22 [History Last Taken Unknown] menthol 0.44 %-zinc oxide 20.6 % topical cream 1 applic topical TID Skin protection 10/05/22 [History Last Taken Unknown] metoprolol succinate 25 mg tablet,extended release 24 hr 25 mg PO DAILY BLOOD PRESSURE 10/05/22 [History Last Taken Unknown] buspirone 5 mg tablet 7.5 mg PO BID 10/30/22 [History Last Taken Unknown] lorazepam 0.5 mg tablet (Ativan) 0.5 mg PO .Q6 PRN 10/30/22 [History Last Taken Unknown] metformin 500 mg tablet 500 mg PO BID 10/30/22 [History Last Taken Unknown] nutritional supplements ea PO 10/30/22 [History Last Taken Unknown] oxycodone 5 mg tablet 5 mg PO Q4H PRN 10/30/22 [History Last Taken Unknown] tramadol 50 mg tablet 50 mg PO Q6H PRN 10/30/22 [History Last Taken Unknown] Allergy/AdvReac Type Severity Reaction Status Date / Time sitagliptin [From ] Allergy Severe Rash Verified 10/30/22 08:43 theophylline Allergy Unknown Verified 10/30/22 08:43 chocolate flavor AdvReac Shortness Verified 10/30/22 08:43 of breath milk AdvReac Shortness Verified 10/30/22 08:43 of breath Family History Mother CAD (coronary artery disease) Breast cancer Diabetes Surgical History H/O lithotripsy History of coronary artery stent placement (05/24/11) History of left heart catheterization (06/19/18) History of partial nephrectomy History of tonsillectomy Hx of cataract surgery L eye surgery partial nephrectomy for renal cell cancer Social History household members: spouse Smoking Status: Former smoker quit date: 09/29/84 pack-years: 17 how long ago did patient quit smokin, 1.5/d second hand exposure: Yes alcohol intake: never substance use type: does not use Physical Exam Const alert, oriented x3 and no apparent distress General Appearance: cooperative and comfortable Orientation / Consciousness: awake, oriented to person, oriented to place and oriented to time Extremity normal capillary refill Extremity Narrative: There is mild lower extremity lymphedema with mild hyperpigmentation to the anterior shins. Hair growth is diminished. Skin temp is warm. General Extremity: other findings Other Details: Good strength noted to right foot. Left is a little weak against resistance but pt is working on that. He states there is great improvement thus far. Left leg cannot be elevated fully due to hip pathology. Peripheral Pulses: Yes posterior tibial pulses present bilateral and dorsalis pedis pulses present bilateral (minimally) Skin Skin Narrative: Toenails are mildly elongated and there is a spicule without infection to left hallux lateral border. General Skin Exam: venous stasis Wound Narrative: There is a superficial, healing fissure to right plantar foot near the 4th metatarsal head area. The surrounding hyperkeratotic skin was removed without incident with tissue nippers. The central crumbly scab was easily removed also to reveal epithelialized area. No drainage. No probing. No dressing needed. Monitor. There is a superficial small fissure to right posterior plantar heel. No drainage. The surrounding callus was lightly mechanically sanded. No dressing needed. Pt admits he likes to go barefoot. Medical Records Data Medical Nutrition Assessment Dietitian: Malnutrition Criteria Met Start: 10/06/22 14:16 Freq: Status: Active Protocol: Document 10/30/22 17:31 [facility] (Rec: 10/30/22 17:32 [facility] [id number]) Nutrition Malnutrition Evidence of Malnutrition Exists Yes Malnutrition (moderate): Acute Illness/Injury Evidenced By Suboptimal Energy Intake ( Moderate),Weight Loss (Severe) Intake Problem Increased Nutrient Needs (specify) Etiology protein related to skin status and recent surgeries Signs/Symptoms as evidenced by PI to buttock/ surgical incision Status Active Problem Inadequate Oral Intake Status Inactive Problem Clinical Problem Acute Disease or Injury Related Malnutrition Etiology related to recent surgery, anxiety and inability to consume adequate nutrition to meet est nutritional needs Signs/Symptoms as evidenced by now w/ additional 4% wt loss x 1 wk - and 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 Will continue Lester bid to help w/ wound healing - then d /c once skin healed and no longer appropriate Lab / Micro Data Result Diagrams: 10/27/22 06:00 10/30/22 05:33 Labs: Laboratory Results - last 24 hr 11/01/22 06:28: POC Glucose 123 H 11/01/22 1832 <Electronically signed by Sarahy Sofia DPM> Cosigner Signature (if applicable): CC: DPMaryann Sofia; Dr. Mohinder Quick MD; Dr. Florencio Morgan MD~ Signed [facility] Work Phone: 1(806) 554-721301-31-2023 Miscellaneous Notes* Telephone Encounter - Toma Novak - 10/29/2022 9:20 AM EST Called Dora the transitional Care Nurse ([phone]) to let her know to have the x-rays done again 3 weeks from when the first were taken. Toma Novak October 29, 2022 9:22 AM * Telephone Encounter - Toma Novak - 10/29/2022 9:19 AM EST ----- Message from Goyo Cheng MD sent at 10/24/2022 3:23 PM EST ----- X rays ok. Continue current PT and antibiotics. Repeat xray in 3 weeks. ----- Message ----- From: Toma Novak Sent: 10/24/2022 2:26 PM EST To: Goyo Cheng MD [facility], This patient had an AP Pelvis x-ray done. They are in his chart. Will you please let me know what you want to do next? Lianna Rodriguez documented [facility]-30-2023 Miscellaneous Notes* Telephone Encounter - Chantel Glasgow RN - 10/28/2022 2:38 PM EST Spoke with patient's nurse at [facility]. Patient still has acetaminophen ordered every 6 hours asneeded. She will ask the house doctor to review the labs and reduce the amount allowed per day. Chantel Glasgow RN * Telephone Encounter - Linsey Garber MD - 10/28/2022 2:12 PM EST The weekly lab results showed that his WBC count has mildly increased, and her liver enzymes have mildly increased from the previous numbers. Please check with the patient to see how he is doing. Please advise him to cut down on acetaminophen use if he is taking it every day. documented in this encounterHigh[facility]01-30-2023 Miscellaneous Notes* Telephone Encounter - Chantel Glasgow RN - 10/28/2022 10:31 AM EST External copat labs entered. Chantel Glasgow RN documented in this encounterHigh[facility] Hospital01-25-[address] Morgan [facility] October 23, 2022 1:48pm Note Date/Time October 23, 2022 1 :48pm [facility] Medical Records Department [address] [place] [address] Progress Note - Infect Disease 10/23/22 1347 MR#: [id number] Acct: [id number] Name: DALE SARABIA Rep #:[id number] : 1955 67 From: Florencio mitchell MD PCP: Dr. Mohinder Quick MD Status:ADM IN Location: [place] [id number] Physical Exam Narrative No fever, elbow improving per . Const no apparent distress Resp normal air movement and clear to auscultation bilaterally Cardio regular rate and regular rhythm GI soft to palpation, non-tender and non-distended Skin Skin Narrative: R elbow bandaged ID ID: Route of nutrition/ use of supplements: [] Nutritional Intake: [] IV Site: [] Rangel Catheter: [] Assessment & Plan Assessment/Plan (1) MRSA bacteremia: PLAN: MRSA bacteremia with L hip osteo requiring I&D and spacer placement at [facility] 09/30/22. Discharged to TCU on dapto with stop date 11/11/22. Checking LFT and CK to weekly labs. Now with proteus R elbow infected wound - no pain with ROM. Improving, on 7 day course po amox. Will follow (2) Osteomyelitis of left hip: 10/23/22 1348 <Electronically signed by Florencio Morgan MD> Cosigner Signature (if applicable): CC: ~ Signed [facility] Work Phone: 1(689) 513-231901-24-2023 History and physical note Author Dr. Reyes [facility] October 22, 2022 5:10pm Note Date/Time October 05, 2022 10 :24pm [facility] Medical Records Department [address] [place] [address] History & Physical Exam 10/05/222202 MR#: [id number] Acct: [id number] Name: DALE SARABIA Rep #:[id number] : 1955 67 From: Wenceslao Reyes MD PCP: Dr. Mohinder Quick MD Status:ADM IN Location: [address] - General General Date of Admission: 10/05/22 Date of Service: 10/07/22 Chief Complaint: Here for rehabilitation, intravenous antibiotics. HPI Narrative DALE SARABIA, is a 67 Male who presents with followin08/04/2022 - 08/09/2022 [facility] MRSA bacteremia, unknown source. 09/27/2022 Admit to [facility] General. 09/27/2022 Blood cultures growing MRSA. 09/28/2022 Orthopedics consulted for left hip pain. Recent MRSA bacteremia, source unknown, tagged WBC scan intolerable. Discharged from [facility] on oral Linezolid x 2 weeks. Consult Infectious Disease. 09/28/2022 ID recommended Vancomycin, stop Zosyn for MRSA bacteremia. secondary to left hip perarticular infections, osteomyelitis of femoral head acetabulum, iliopsoas abscess, gluteus muscle abscess. 09/30/2022 Orthopedics incised and drained deep left pelvic abscess, left septic hip arthrotomy and drainage, resection osteomyelitis left proximal femur. 10/02/2022 Orthopedics performed closed reduction, left hip cemented spacer prosthesis. 10/05/2022 Admit to TCU with debility, here for rehabilitation, strengthening, intravenous antibiotics, prior to discharge home with . [facility] Medical History Anemia Asthma Atherosclerotic heart disease of [place] coronary artery without angina pectoris Back pain Benign prostatic hypertrophy COPD (chronic obstructive pulmonary disease) DDD (degenerative disc disease), cervical Degeneration of intervertebral disc of lumbar region Degenerative disc disease, cervical Depression Diabetes CLARK (dyspnea on exertion) Essential (primary) hypertension Hearing difficulty of both ears History of renal cell cancer Hyperlipidemia Hypothyroidism Instability of medial collateral ligament of knee Kidney disease Lesion of sciatic nerve Lung disease Meniscus degeneration Nephrolithiasis Obesity Obstructive sleep apnea Osteoarthritis, knee 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 Over 63 years old Palpitations Polycythemia Precordial chest pain Pulmonary embolism (06/21/18) Restless legs syndrome Right elbow pain Right knee pain Rupture of right biceps tendon Sciatica Scoliosis of thoracic spine Secondary polycythemia Segmental and somatic dysfunction of cervical region Segmental and somatic dysfunction of cervical region Segmental and somatic dysfunction of lumbar region Segmental and somatic dysfunction of lumbar region Segmental and somatic dysfunction of pelvic region Segmental and somatic dysfunction of thoracic region Segmental and somatic dysfunction of thoracic region Shortness of breath Thyroid disease Tinnitus of both ears Trochanteric bursitis, left hip Type II diabetes mellitus Home Medications aspirin 81 mg chewable tablet 81 mg PO DAILY@0800 ANTIPLATELET 03/17/16 [History Last Taken 09/12/22] hydroxyurea 500 mg capsule 500 mg PO DAILY Ask 12/17/18 [History Last Taken 09/12/22] lactobacillus combination no.8 3 billion cell capsule (Adult Probiotic) 3,000 mmu cells PO DAILY 02/08/21 [History Last Taken 09/12/22] multivitamin 1 tab PO DAILY 02/08/21 [History Last Taken 09/12/22] omega-3 fatty acids 1,000 mg capsule (Fish Oil Concentrate) 1,000 mg PO DAILY 02/08/21 [History Last Taken 09/12/22] valsartan 80 mg-hydrochlorothiazide 12.5 mg tablet 1 tab PO DAILY #90 tabs 07/16/22 [Rx Last Taken 09/12/22] levothyroxine 200 mcg tablet 225 mcg PO DAILY thyroid 08/03/22 [History Last Taken 09/12/22] metformin 1,000 mg tablet 1,000 mg PO 0800 DIABETES 08/03/22 [History Last Taken 09/12/22] tamsulosin 0.4 mg capsule 0.8 mg PO DAILY@1730 #60 caps 08/09/22 [Rx Last Taken 09/12/22] gabapentin 100 mg capsule 100 mg PO 0600,1300 Neuropathy 09/13/22 [History Last Taken 09/12/22] prednisone 20 mg tablet 20 mg PO BID #6 tabs 09/13/22 [Rx Last Taken Unknown] hydrocodone-acetaminophen 5-325mg 5mg-325mg 1 tab PO Q4H PRN PRN Pain Score 4- 107 days #30 tabs 09/16/22 [Rx Last Taken Unknown] celecoxib 100 mg capsule 100 mg PO BID #20 caps 09/25/22 [Rx Last Taken Unknown] daptomycin 500 mg intravenous solution 500 mg IV DAILY Antibiotic 10/05/22 [History Last Taken Unknown] gabapentin 100 mg tablet 300 mg PO QHS Neuropathy 10/05/22 [History Last Taken Unknown] glipizide 5 mg tablet, extended release 24 hr 5 mg PO DAILY DM 10/05/22 [History Last Taken Unknown] menthol 0.44 %-zinc oxide 20.6 % topical cream 1 applic topical TID Skin protection 10/05/22 [History Last Taken Unknown] metformin 1,000 mg tablet 1,500 mg PO QHS DM 10/05/22 [History Last Taken Unknown] metoprolol succinate 25 mg tablet,extended release 24 hr 25 mg PO DAILY BLOOD PRESSURE 10/05/22 [History Last Taken Unknown] Allergy/AdvReac Type Severity Reaction Status Date / Time sitagliptin [From ] Allergy Severe Rash Verified 08/26/22 11:37 theophylline Allergy Unknown Verified 08/26/22 11:37 chocolate flavor AdvReac Shortness Verified 10/05/22 23:01 of breath milk AdvReac Shortness Verified 10/05/22 23:01 of breath Family History Mother CAD (coronary artery disease) Breast cancer Diabetes Surgical History H/O lithotripsy History of coronary artery stent placement (05/24/11) History of left heart catheterization (06/19/18) History of partial nephrectomy History of tonsillectomy Hx of cataract surgery L eye surgery partial nephrectomy for renal cell cancer Social History household members: spouse Smoking Status: Former smoker quit date: 09/29/84 pack-years: 17 how long ago did patient quit smokin, 1.5/d second hand exposure: Yes alcohol intake: never substance use type: does not use ROS Constitutional Constitutional: Denies chills, fever(s) or weight gain ENT HEENT: Denies headache(s), nasal congestion or nasal discharge Cardiovascular Cardiovascular: Denies chest pain or palpitations Respiratory/Chest Respiratory/Chest: Denies cough, excessive phlegm production or shortness of breath with exertion Gastrointestinal Gastrointestinal: Denies abdominal pain, nausea or vomiting Genitourinary Genitourinary: Denies dysuria Musculoskeletal Musculoskeletal: Denies joint pain or joint swelling Integumentary Integumentary: Denies rash or wounds Neurologic Neurologic: Denies focal weakness, numbness or tingling Psychiatric Psychiatric: Denies anxiety, auditory hallucinations, depression, homicidal ideation or suicidal ideation Physical Exam Const alert General Appearance: cooperative HEENT normocephalic Eyes PERRL and EOMs intact bilaterally Neck supple, no JVD and no carotid bruits Resp normal respiratory effort, normal air movement and clear to auscultation bilaterally Cardio regular rate and regular rhythm GI normal to inspection, nondistended, normoactive bowel sounds, non-tender and non-distended Extremity normal capillary refill General Extremity: Negative for edema Skin no rashes or lesions noted General Skin Exam: no breakdown Psych affect normal Appearance: appropriate Results Lab / Micro Data Result Diagrams: 10/06/22 03:59 10/06/22 03:59 Assessment & Plan Assessment/Plan (1) Debility: (2) MRSA bacteremia: (3) Osteomyelitis of left hip: (4) Iliopsoas abscess: (5) Abscess, gluteal, left: (6) Polycythemia vera: (7) History of renal cell carcinoma: (8) Coronary artery disease: (9) Diabetes mellitus: (10) Hypertension: (11) Hyperlipidemia: (12) Hypothyroidism: PLAN: Plan 67 year old male with below past medical history hospitalized for MRSA sepsis secondary to osteomyelitis/abscess left hip, underwent left hip debridement/spacer implantation, admitted to TCU with debility, here for rehabilitation, strengthening, intravenous antibiotics, prior to discharge home with . * Debility - PT/OT. * Pain - Tylenol 1000mg q6h prn pain (1-3), Tramadol 50mg q6h prn pain (4-5), Oxycodone 5mg q4h prn pain (6-10). * Bowel - Miralax 17gm daily, senna/colace 2 tablets bid, Dulcolax 10mg pr x 1 prn, MOM 30ml po x 1 prn. * Adult immunization - Administer pneumonia vaccine, covid19 vaccine, flu vaccine as appropriate. * DVT prophylaxis - HAS-BLED score 2 intermediate risk of bleeding, Gillian score 7 high risk of bleed, Rx Xarelto 10mg daily x 2 weeks. * Coronary artery disease - Metoprolol succinate 25mg daily, Aspirin 81mg daily. 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 WYATT. * Neuropathic pain - Gabapentin 100mg bid, 300mg qhs. * Diabetes Mellitus II - Metformin 1000mg, 1500mg, Glipizide 5mg daily. * P. Vera - Hydroxyurea 500mg daily. * Hypothyroidism - Levothyroxine 225mcg daily. * Skin irritation - Calmoseptine topical tid. 10/07/22 0743 <Electronically signed by Wenceslao Reyes MD> Cosigner Signature (if applicable): CC: Dr. Mohinder Quick MD; Dr. Wenceslao Reyes MD~ Signed ADDENDUM by Dr. Wenceslao Reyes MD on 10/20/22 at 1051 Addendum Anxiety - Rx Paroxetine 10mg daily. 10/20/22 1051<Electronically signed by Wenceslao Reyes MD> Cosigner Signature (if applicable): cc: Dr. Mohinder Quick MD; Dr. Wenceslao Reyes MD ~* Signed ADDENDUM by Dr. Wenceslao Reyes MD on 10/22/22 at 1710 Addendum Anxiety - resident declined Paroxetine, Rx Buspar 7.5mg bid. 10/22/22 1710<Electronically signed by Wenceslao Reyes MD> Cosigner Signature (if applicable): cc: Dr. Mohinder Quick MD; Dr. Wenceslao Reyes MD ~* Signed [facility] Work Phone: 1(369) 841-904801-20-[address] Morgan [facility] October 18, 2022 1:13pm Note Date/Time October 18, 2022 1 :13pm [facility] Medical Records Department [address] [place] [address] Progress Note - Infect Disease 10/18/22 1311 MR#: [id number] Acct: [id number] Name: DALE SARABIA Rep #:[id number] : 1955 67 From: Florencio mitchell MD PCP: Dr. Mohinder Quick MD Status:ADM IN Location: [place] [address] Physical Exam Narrative Some R elbow soreness, improving. No issues with ROM. No fever. Const alert and no apparent distress Resp normal air movement and clear to auscultation bilaterally Cardio regular rate and regular rhythm GI soft to palpation, non-tender and non-distended Extremity General Extremity: Negative for edema Skin Skin Narrative: R elbow with redness, wound. ID ID: Route of nutrition/ use of supplements: [] Nutritional Intake: [] IV Site: [] Rangel Catheter: [] Assessment & Plan Assessment/Plan (1) MRSA bacteremia: PLAN: MRSA bacteremia with L hip osteo requiring I&D and spacer placement at [facility] 09/30/22. Discharged to TCU on dapto with stop date 11/11/22. Checking LFT and CK to weekly labs. Now with proteus R elbow infected wound - no pain with ROM. Will order 7 day course po amox. Will follow (2) Osteomyelitis of left hip: 10/18/223 <Electronically signed by Florencio Morgan MD> Cosigner Signature (if applicable): CC: ~ Signed [facility] Work Phone: 1([phone]) 896-907301-16-2023 Miscellaneous Notes* Telephone Encounter - Chantel Glasgow RN - 10/14/2022 11:08 AM EST External copat labs entered. [facility]antel Glasgow [facility] Reyes [facility] October 09, 2022 12:15pm Note Date/Time October 09, 2022 1 1:58am [facility] Medical Records Department [address] [place] [address] Progress Note - Pharmacy 10/09/22 1131 MR#: [id number] Acct: [id number] Name: DALE SARABIA Rep #:[id number] : 1955 67 From: Janine Narvaez PCP: Dr. Mohinder Quick MD Status:ADM IN Location: TCU [place] [address] TCU RX Drug Regimen Review Subjective: TCU Admission. 67 YOM hospitalized for MRSA sepsis secondary to osteomyelitis/abscess left hip, underwent left hip debridement/spacer implantation. Admitted to TCU with debility for strengthening, rehabilitation and IV antibiotics. Objective: Allergies sitagliptin [From Januvia] Allergy (Severe, Verified 08/26/22 11:37) Rash itching theophylline Allergy (Verified 08/26/22 11:37) Unknown chocolate flavor Adverse Reaction (Verified 10/05/22 23:01) Shortness of breath milk Adverse Reaction (Verified 10/05/22 23:01) Shortness of breath Current Medications Generic Name Dose Route Start Last Admin Trade Name Freq PRN Reason Stop Dose Admin Acetaminophen 1,000 mg 10/05/22 21:54 10/07/22 14:14 Acetaminophen 500 Mg Tablet PO 1,000 mg Q6H PRN PRN Administration Pain 1-3 Aspirin 81 mg 10/06/22 08:00 10/09/22 08:05 Aspirin 81 Mg Tab.Chew PO 81 mg DAILY@0800 PEPE Administration Bisacodyl 10 mg 10/05/22 22:39 Bisacodyl 10 Mg Suppository RC X1 PRN Constipation Calamine/Phenol 1 applic 10/05/22 22:00 10/09/22 06:41 Menthol/Lanolin/Calamine/Znox 113 Gm Tube TOPICAL 1 applic TID PEPE Administration Gabapentin 300 mg 10/05/22 22:00 10/08/22 21:24 Gabapentin 300 Mg Capsule PO 300 mg QHS PEPE Administration Gabapentin 100 mg 10/06/22 06:00 10/09/22 06:38 Gabapentin 100 Mg Capsule PO 100 mg 0600,1300 PEPE Administration Glipizide 5 mg 10/06/22 08:00 10/09/22 08:05 Glipizide Xl 5 Mg Tablet PO 5 mg DAILYCM PEPE Administration Heparin Sodium (Beef Lung) 50 units 10/06/22 10:26 Heparin Pf Lock 10 Units/Ml 50 Units/5 Ml Syringe IV UD PRN PICC Line Heparin Flush Hydroxyurea 500 mg 10/06/22 06:00 10/09/22 06:40 Hydroxyurea 500 Mg Capsule PO 500 mg DAILY PEPE Administration Daptomycin 650 mg/ Sodium 63 mls @ 100 mls/hr 10/06/22 10:00 10/09/22 10:47 Chloride IV 11/11/22 11:00 100 mls/hr Q24 PEPE Administration Sodium Chloride 250 mls @ 15 mls/hr 10/06/22 10:26 10/08/22 10:59 IV 15 mls/hr .[id number] PRN Administration Saline Flush Sodium Chloride 250 mls @ 15 mls/hr 10/06/22 10:26 IV .[id number] PRN Additional IVPB Infusion Lactobacillus Acidophilus 1 tablet 10/07/22 18:00 10/09/22 06:40 Lactobacillus Acidophilus PO 1 tablet BID PEPE Administration Levothyroxine Sodium 225 mcg 10/06/22 06:00 10/09/22 06:39 Levothyroxine 75 Mcg Tablet PO 225 mcg DAILY PEPE Administration Lorazepam 0.5 mg 10/06/22 15:02 10/08/22 21:15 Lorazepam 0.5 Mg Tablet PO 0.5 mg Q6H PRN PRN Administration ANXIETY/RESTLESSNESS/SLEEP Magnesium Hydroxide 30 ml 10/05/22 22:39 Magnesium Hydroxide 30 Ml Udc PO X1 PRN Constipation Metformin HCl 1,500 mg 10/06/22 17:00 10/08/22 18:13 Metformin Hcl 500 Mg Tablet PO 1,500 mg DINNER PEPE Administration Metformin HCl 1,000 mg 10/06/22 08:00 10/09/22 08:05 Metformin Hcl 1,000 Mg Tablet PO 1,000 mg 0800 PEPE Administration Metoprolol Succinate 25 mg 10/06/22 06:00 10/09/22 06:39 Metoprolol(Xl)Succ 25 Mg Tablet PO 25 mg DAILY PEPE Administration Oxycodone HCl 5 mg 10/05/22 21:55 10/06/22 23:55 Oxycodone 5 Mg Tablet PO 5 mg Q4H PRN PRN Administration Pain Score 6-10 Polyethylene Glycol 17 gm 10/06/22 06:00 10/09/22 06:33 Polyethylene Glycol 3350 17 Gm Packet PO Not Given DAILY PEPE Potassium Chloride 20 meq 10/07/22 08:00 10/09/22 08:05 Potassium Chloride Oral Tablet 20 Meq PO 20 meq BREAKFAST PEPE Administration Senna/Docusate Sodium 2 tablet 10/06/22 06:00 10/09/22 06:33 Senna/Docusate Sodium 1 Tablet PO Not Given BID PEPE Simethicone 80 mg 10/06/22 18:45 10/09/22 08:05 Simethicone 80 Mg Tablet PO 80 mg TIDPC PEPE Administration Sodium Chloride 10 - 40 ml 10/05/22 22:04 10/09/22 10:55 0.9% Saline Lock 10 Ml Syringe IV 20 ml UD PRN Administration SALINE FLUSH Sodium Chloride 10 - 40 ml 10/06/22 10:26 0.9% Saline Lock 10 Ml Syringe IV UD PRN Open End PICC Flush Sodium Chloride 10 - 40 ml 10/06/22 10:26 0.9 % Nacl (Sterile) Posiflush 10 Ml IV UD PRN Port access or dressing change Tamsulosin HCl 0.4 mg 10/08/22 17:30 10/08/22 18:13 Tamsulosin Hcl 0.4 Mg Capsule PO 0.4 mg DAILY@1730 PEPE Administration Tramadol HCl 50 mg 10/05/22 21:55 10/09/22 10:47 Tramadol 50 Mg Tablet PO 50 mg Q6H PRN PRN Administration Pain Score 4-5 Tuberculin PPD 0.1 ml 10/13/22 10:00 Tuberculin,Purif.Prot.Deriv. 50 Tu/Ml Vial ID 10/13/22 10:01 X1 ONE Problem List (Last Reviewed 10/07/22 @ 14:[address] Florencio Morgan MD) Hypothyroidism (Acute) Hyperlipidemia (Acute) Hypertension (Chronic) Diabetes mellitus (Acute) Coronary artery disease (Acute) History of renal cell carcinoma (Acute) Polycythemia vera (Acute) Abscess, gluteal, left (Acute) Iliopsoas abscess (Acute) Osteomyelitis of left hip (Acute) Debility (Acute) MRSA bacteremia (Acute) Vital Signs Temp Pulse Resp BP Pulse Ox O2 Del Method 96.9 F L 88 16 117/68 99 Room Air 10/08/22 14:00 10/09/22 06:39 10/08/22 14:00 10/09/22 06:39 10/08/22 14:00 10/08/22 14:00 Oxygen Delivery Method Room Air Weight: 105.772 kg Sodium 138 mmol/L (136-145) 10/08/22 05:30 Potassium 3.5 mmol/L (3.5-5.1) 10/08/22 05:30 Chloride 102 mmol/L (98-107) 10/08/22 05:30 Carbon Dioxide 31.0 mmol/L (21.0-32.0) 10/08/22 05:30 Anion Gap 5 (5-15) 10/08/22 05:30 BUN 9 mg/dL (7-18) 10/08/22 05:30 Creatinine 0.73 mg/dL (0.70-1.30) 10/08/22 05:30 Est GFR (MDRD) Af Amer 137 mL/min (>60) 10/08/22 05:30 Est GFR (MDRD) Non-Af 113 mL/min (>60) 10/08/22 05:30 BUN/Creatinine Ratio 12.3 RATIO (10-20) 10/08/22 05:30 Glucose 100 mg/dL (74-106) 10/08/22 05:30 Assessment/Plan: 1. Pain: acetaminophen 1000mg PO Q6H PRN pain 1-3, tramadol 50mg PO Q6H PRN pain4-5 and oxycodone 5mg PO Q4H PRN pain 6-10. Resident has had 6 doses of acetaminophen, 5 doses of tramadol and 1 dose of oxycodone for pain from 5-7 in the back/hip/abdomen/generalized pain. Please continue to monitor for increased pain, PRN usage, constipation and respiratory depression. 2. Bowel: Miralax 17gm PO daily, senna/docusate 2T PO BID and bisacodyl 10mg RC x1 PRN constipation and MOM 30mL PO x1 PRN constipation. Resident has not had any PRN doses. Last documented bowel movement 10/06. Resident has refused 2/4 doses of Miralax and 5/7 doses of senna/docusate. Please consider changing from scheduled to PRN. Thanks. 3. MRSA osteomyelitis left hip s/p debridement, spacer implantation: daptomycin 650mg IV daily thru 11/11/22. Please continue to monitor for S/S of infection, diarrhea (pt has diarrhea per documentation on senna/docusate), renal function and muscle pain. 4. CAD: metoprolol succinate 25mg PO daily and aspirin 81mg PO daily. Please continue to monitor BP (last 117/68), HR (last 88), S/S of bleeding and hemoglobin (last 9.9g/dL). 5. Diabetes mellitus II: metformin 1000mg breakfast and 1500mg dinner and glipizide XL 5mg PO DAILYCM. Please continue to monitor for S/S of hypoglycemia,hemoglobin A1c (last 6.9% 08/26/22), glucose (last 153mg/dL), and renal function(GFR >60mL/min). 6. Hypokalemia (last 3.5mmol/L): potassium chloride 20mEq PO breakfast. Please continue to monitor potassium levels. 7. Urinary retention (per nursing note): tamsulosin 0.4mg PO daily. Please continue to monitor for urinary retention and BP. 8. P. vera: hydroxyurea 500mg PO daily. Please continue to monitor for rash and bone marrow suppression (black box warning). 9. Hypothyroidism: levothyroxine 225mcg PO daily. Please continue to monitor forS/S of hypo/hyperthyroidism and TSH (last 05/03/22). 10. Gas: simethicone 80mg PO TIDPC. Please continue to monitor for gas. 11. Overall health: lactobacillus 1T PO BID. Please continue to monitor. Assessment/Plan for indications treated with psychotropic medications: 1. Neuropathic pain: gabapentin 100mg PO BID and 300mg PO QHS. GDR not appropriate as this is being used for neuropathic pain. Please continue to monitor for confusion, renal function, falls/fractures (BEERs criteria medication). 2. Anxiety/restlessness/sleep: lorazepam 0.5mg PO Q6H PRN anxiety/sleep/restlessness. Resident has had 3 doses so far. GDR not appropriateas this medication is new. Please continue to monitor for anxiety, restlessness,sleep, PRN usage, dementia/delirium/falls/fractures (BEERs medication). Medical chart and medication regimen reviewed. The following medication irregularities or issues were identified: *1. Miralax 17gm PO daily, senna/docusate 2T PO BID and bisacodyl 10mg RC x1 PRNconstipation and MOM 30mL PO x1 PRN constipation. Resident has refused 2/4 dosesof Miralax and 5/7 doses of senna/docusate. Please consider changing from scheduled to PRN. Thanks. Date of Note:: 10/09/22 10/09/22 1158 <Electronically signed by Janine Narvaez > Janine Narvaez Cosigner Signature (if applicable): 10/09/22 1215 <Electronically signed by Wenceslao Reyes MD> CC: ~ Signed [facility] Work Phone: 1(675) 688-150001-09-[address] Morgan [facility] October 07, 2022 2:57pm Note Date/Time October 07, 2022 2: 54pm [facility] Medical Records Department [address] [place] [address] Consultation - Infectious Dx 10/07/22 1450 MR#: [id number] Acct: [id number] Name: DALE SARABIA Rep #:[id number] : 1955 67 From: Florencio mitchell MD PCP: Dr. Mohinder Quick MD Status:ADM IN Location: [place] [address] Assessment & Plan Assessment/Plan (1) MRSA bacteremia: PLAN: MRSA bacteremia with L hip osteo requiring I&D and spacer placement at [facility] 09/30/22. Discharged to TCU on dapto with stop date 11/11/22. Will add LFT and CK to weekly labs. Pt c/o diarrhea, recommend stopping/decreasing daily miralax and senna/docusate. Will follow, thank you (2) Osteomyelitis of left hip: HPI Consult Data Date of Consult: 10/07/22 HPI Narrative Reason for Consultation: MRSA bacteremia HPI Narrative: DALE SARABIA, is a 67 M transferred to TCU from [facility] with recurrent MRSA bacteremia and L hip infection. Had spacer placed 09/30/22. Discharged on 6 weekcourse dapto, stop date 11/11/22. Feeling ok but c/o diarrhea and lower abd painfor several days. No fever. No myalgias. Full ROS performed and neg except as noted above. [facility] Medical History Anemia Asthma Atherosclerotic heart disease of [place] coronary artery without angina pectoris Back pain Benign prostatic hypertrophy COPD (chronic obstructive pulmonary disease) DDD (degenerative disc disease), cervical Degeneration of intervertebral disc of lumbar region Degenerative disc disease, cervical Depression Diabetes CLARK (dyspnea on exertion) Essential (primary) hypertension Hearing difficulty of both ears History of renal cell cancer Hyperlipidemia Hypothyroidism Instability of medial collateral ligament of knee Kidney disease Lesion of sciatic nerve Lung disease Meniscus degeneration Nephrolithiasis Obesity Obstructive sleep apnea Osteoarthritis, knee Other custodial (current) 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 Over 63 years old Palpitations Polycythemia Precordial chest pain Pulmonary embolism (06/21/18) Restless legs syndrome Right elbow pain Right knee pain Rupture of right biceps tendon Sciatica Scoliosis of thoracic spine Secondary polycythemia Segmental and somatic dysfunction of cervical region Segmental and somatic dysfunction of cervical region Segmental and somatic dysfunction of lumbar region Segmental and somatic dysfunction of lumbar region Segmental and somatic dysfunction of pelvic region Segmental and somatic dysfunction of thoracic region Segmental and somatic dysfunction of thoracic region Shortness of breath Thyroid disease Tinnitus of both ears Trochanteric bursitis, left hip Type II diabetes mellitus Home Medications aspirin 81 mg chewable tablet 81 mg PO DAILY@0800 ANTIPLATELET 03/17/16 [History Last Taken 09/12/22] hydroxyurea 500 mg capsule 500 mg PO DAILY Ask 12/17/18 [History Last Taken 09/12/22] lactobacillus combination no.8 3 billion cell capsule (Adult Probiotic) 3,000 mmu cells PO DAILY 02/08/21 [History Last Taken 09/12/22] multivitamin 1 tab PO DAILY 02/08/21 [History Last Taken 09/12/22] omega-3 fatty acids 1,000 mg capsule (Fish Oil Concentrate) 1,000 mg PO DAILY 02/08/21 [History Last Taken 09/12/22] valsartan 80 mg-hydrochlorothiazide 12.5 mg tablet 1 tab PO DAILY #90 tabs 07/16/22 [Rx Last Taken 09/12/22] levothyroxine 200 mcg tablet 225 mcg PO DAILY thyroid 08/03/22 [History Last Taken 09/12/22] metformin 1,000 mg tablet 1,000 mg PO 0800 DIABETES 08/03/22 [History Last Taken 09/12/22] tamsulosin 0.4 mg capsule 0.8 mg PO DAILY@1730 #60 caps 08/09/22 [Rx Last Taken 09/12/22] gabapentin 100 mg capsule 100 mg PO 0600,1300 Neuropathy 09/13/22 [History Last Taken 09/12/22] prednisone 20 mg tablet 20 mg PO BID #6 tabs 09/13/22 [Rx Last Taken Unknown] hydrocodone-acetaminophen 5-325mg 5mg-325mg 1 tab PO Q4H PRN PRN Pain Score 4- 107 days #30 tabs 09/16/22 [Rx Last Taken Unknown] celecoxib 100 mg capsule 100 mg PO BID #20 caps 09/25/22 [Rx Last Taken Unknown] daptomycin 500 mg intravenous solution 500 mg IV DAILY Antibiotic 10/05/22 [History Last Taken Unknown] gabapentin 100 mg tablet 300 mg PO QHS Neuropathy 10/05/22 [History Last Taken Unknown] glipizide 5 mg tablet, extended release 24 hr 5 mg PO DAILY DM 10/05/22 [History Last Taken Unknown] menthol 0.44 %-zinc oxide 20.6 % topical cream 1 applic topical TID Skin protection 10/05/22 [History Last Taken Unknown] metformin 1,000 mg tablet 1,500 mg PO QHS DM 10/05/22 [History Last Taken Unknown] metoprolol succinate 25 mg tablet,extended release 24 hr 25 mg PO DAILY BLOOD PRESSURE 10/05/22 [History Last Taken Unknown] Allergy/AdvReac Type Severity Reaction Status Date / Time sitagliptin [From ] Allergy Severe Rash Verified 08/26/22 11:37 theophylline Allergy Unknown Verified 08/26/22 11:37 chocolate flavor AdvReac Shortness Verified 10/05/22 23:01 of breath milk AdvReac Shortness Verified 10/05/22 23:01 of breath Family History Mother CAD (coronary artery disease) Breast cancer Diabetes Surgical History H/O lithotripsy History of coronary artery stent placement (05/24/11) History of left heart catheterization (06/19/18) History of partial nephrectomy History of tonsillectomy Hx of cataract surgery L eye surgery partial nephrectomy for renal cell cancer Social History household members: spouse Smoking Status: Former smoker quit date: 09/29/84 pack-years: 17 how long ago did patient quit smokin, 1.5/d second hand exposure: Yes alcohol intake: never substance use type: does not use Physical Exam Const alert, oriented x3 and no apparent distress General Appearance: cooperative HEENT normocephalic and head/scalp atraumatic Eyes PERRL and EOMs intact bilaterally Neck supple and No nodes Resp normal air movement and clear to auscultation bilaterally Cardio regular rate and regular rhythm GI soft to palpation and non-distended GI Narrative: lower abd soreness Extremity General Extremity: edema Skin Skin Narrative: reviewed photos Neuro CN's II-XII intact bilaterally Medical Records Data Medical Nutrition Assessment Dietitian: Malnutrition Criteria Met Start: 10/06/22 14:16 Freq: Status: Active Protocol: Document 10/06/22 14:16 SLA (Rec: 10/06/22 14:17 [facility] [id number]) Nutrition Malnutrition Evidence of Malnutrition Exists Yes Malnutrition (severe): Acute Illness/Injury Evidenced By Suboptimal Energy Intake ( Severe),Weight Loss (Severe) Intake Problem Inadequate Oral Intake Etiology protein related to skin status and recent surgeries Signs/Symptoms as evidenced by PI to buttock/ surgical incision Status Active Problem Clinical Problem Acute Disease or Injury Related Malnutrition Etiology related to recent surgery and inability to consume adequate nutrition to meet est nutritional needs Signs/Symptoms as evidenced by 11.5% wt loss and consuming <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 Result Diagrams: 10/06/22 03:59 10/06/22 03:59 Labs: Laboratory Results - last 24 hr 10/07/22 06:26: POC Glucose 106 Micro: Microbiology 10/07/22 13:35 Nasal Secretion SARS-CoV-2 Antigen (Rapid) - Final 10/07/22 1457 <Electronically signed by Florencio Morgan MD> Cosigner Signature (if applicable): CC: Dr. Mohinder Quick MD; Dr. Florencio Morgan MD~ Signed [facility] Work Phone: 1(435) 796-648712-22-2022 Hospital Discharge instructions Additional Instructions Follow-up with your cobbler upper within next 3 to 5 days if persistent dyspnea. [facility] Work Phone: 1(674) 185-464612-16-2022 Hospital Discharge instructions Additional Instructions Follow-up with your cobbler upper within next 3 to 5 days if persistent dyspnea. [facility] Work Phone: 1(848) 270-729308-15-2022 Miscellaneous Notes* Telephone Encounter - Margaret Walker LPN - 05/13/2022 4:15 PM EDT Patient notified and will contact his PCP to discuss. Margaret Walker LPN * Telephone Encounter - Moses Jordan DO - 05/13/2022 9:19 AM EDT I suggest he contact his PCP about potentially rotating to rivaroxaban. If that is not affordable then he will need to be rotated to Coumadin. Moses Jordan DO * Telephone Encounter - Jenny Zamorano LPN - 05/06/2022 10:25 AM EDT Pt states he recently changed to Medicare D and his Eliquis is going to be quite costly. he is asking if there is another option that would be more affordable. He has a few weeks left of the Eliquis.He has an apt at the end of the month. Pt made aware that Dr Jordan is out of the office this week and that I will keep this note until hisreturn. Jenny Zamorano LPN * Telephone Encounter - Gisele CARDENAS - 05/06/2022 10:17 AM EDT Patient called in this morning asking if he could his Eliquis dosage. He only wanted to talk to a nurse and not schedule an appointment. Please advise. Patient can be reached at [phone]. Gisele [facility]DENAS [facility] Miscellaneous Notes* Telephone Encounter - Rose Cardenas - 03/25/2022 11:04 AM EDT Patient has been identified by name and date of : Yes Last office visit in this department: 05/25/2013 RX INSTRUCTIONS: Patient aware RX will be sent to pharmacy. No need to notify patient. Patient phones requesting refills as follows: Pending Prescriptions Disp Refills HYDROXYUREA 500 MG CAPSULE 90 capsule 3 Sig: Take 1 capsule by mouth once daily. FAMILIA: No Please review and advise. Rose Cardenas [facility] History of Past illness Narrative* Problem Noted Date Resolved Date Pulmonary embolus 09/01/2018 10/05/2022 Allergic rhinitis, cause unspecified 01/18/2009 10/05/2022 documented as of this encounter (statuses as of 10/09/2022) [facility] of Past illness Narrative* Problem Noted Date Resolved Date Pulmonary embolus 09/01/2018 10/05/2022 Allergic rhinitis, cause unspecified 01/18/2009 10/05/2022 documented as of this encounter (statuses as of 10/14/2022) [facility] of [facility] illness Narrative* Problem Noted Date Resolved Date Pulmonary embolus 09/01/2018 10/05/2022 Allergic rhinitis, cause unspecified 01/18/2009 10/05/2022 documented as of this encounter (statuses as of 10/28/2022) [facility] Narrative* Problem Noted Date Resolved Date Pulmonary embolus 09/01/2018 10/05/2022 Allergic rhinitis, cause unspecified 01/18/2009 10/05/2022 documented as of this encounter (statuses as of 10/29/2022) [facility] Narrative* Problem Noted Date Resolved Date Pulmonary embolus 09/01/2018 10/05/2022 Allergic rhinitis, cause unspecified 01/18/2009 10/05/2022 documented as of this encounter (statuses as of 11/08/2022) [facility] Narrative* Problem Noted Date Resolved Date Pulmonary embolus 09/01/2018 10/05/2022 Allergic rhinitis, cause unspecified 01/18/2009 10/05/2022 documented as of this encounter (statuses as of 11/11/2022) [facility] Narrative* Problem Noted Date Resolved Date Pulmonary embolus 09/01/2018 10/05/2022 Allergic rhinitis, cause unspecified 01/18/2009 10/05/2022 documented as of this encounter (statuses as of 11/11/2022) [facility] Narrative* Problem Noted Date Resolved Date Pulmonary embolus 09/01/2018 10/05/2022 Allergic rhinitis, cause unspecified 01/18/2009 10/05/2022 documented as of this encounter (statuses as of 11/12/2022) [facility] Narrative* Problem Noted Date Resolved Date Pulmonary embolus 09/01/2018 10/05/2022 Allergic rhinitis, cause unspecified 01/18/2009 10/05/2022 documented as of this encounter (statuses as of 11/19/2022) [facility] Narrative* Problem Noted Date Resolved Date Pulmonary embolus 09/01/2018 10/05/2022 Allergic rhinitis, cause unspecified 01/18/2009 10/05/2022 documented as of this encounter (statuses as of 11/25/2022) [facility] Narrative* Problem Noted Date Resolved Date Pulmonary embolus 09/01/2018 10/05/2022 Allergic rhinitis, cause unspecified 01/18/2009 10/05/2022 documented as of this encounter (statuses as of 11/26/2022) [facility] Narrative* Problem Noted Date Resolved Date Pulmonary embolus 09/01/2018 10/05/2022 Allergic rhinitis, cause unspecified 01/18/2009 10/05/2022 documented as of this encounter (statuses as of 12/02/2022) [facility] Narrative* Problem Noted Date Resolved Date Pulmonary embolus 09/01/2018 10/05/2022 Allergic rhinitis, cause unspecified 01/18/2009 10/05/2022 documented as of this encounter (statuses as of 12/04/2022) [facility] Narrative* Problem Noted Date Resolved Date Pulmonary embolus 09/01/2018 10/05/2022 Allergic rhinitis, cause unspecified 01/18/2009 10/05/2022 documented as of this encounter (statuses as of 12/10/2022) [facility] Narrative* Problem Noted Date Resolved Date Pulmonary embolus 09/01/2018 10/05/2022 Allergic rhinitis, cause unspecified 01/18/2009 10/05/2022 documented as of this encounter (statuses as of 12/31/2022) [facility] Narrative* Problem Noted Date Resolved Date Pulmonary embolus 09/01/2018 10/05/2022 Allergic rhinitis, cause unspecified 01/18/2009 10/05/2022 documented as of this encounter (statuses as of 01/22/2023) [facility] Narrative* Problem Noted Date Resolved Date Pulmonary embolus 09/01/2018 10/05/2022 Allergic rhinitis, cause unspecified 01/18/2009 10/05/2022 documented as of this encounter (statuses as of 01/22/2023) [address]04-2018 History of Past illness Narrative* Problem Noted Date Resolved Date Pulmonary embolus 09/01/2018 10/05/2022 Allergic rhinitis, cause unspecified 01/18/2009 10/05/2022 documented as of this encounter (statuses as of 02/04/2023) [facility] Narrative* Problem Noted Date Resolved Date Pulmonary embolus 09/01/2018 10/05/2022 Allergic rhinitis, cause unspecified 01/18/2009 10/05/2022 documented as of this encounter (statuses as of 03/12/2023) [facility] Narrative* Problem Noted Date Diagnosed Date Resolved Date Pulmonary embolus 09/01/2018 10/05/2022 Allergic rhinitis, cause unspecified 01/18/2009 10/05/2022 documented as of this encounter (statuses as of 04/30/2023) [facility] Narrative* Problem Noted Date Diagnosed Date Resolved Date Pulmonary embolus 09/01/2018 10/05/2022 Allergic rhinitis, cause unspecified 01/18/2009 10/05/2022 documented as of this encounter (statuses as of 05/06/2023) [facility] Narrative* Problem Noted Date Diagnosed Date Resolved Date Pulmonary embolus 09/01/2018 10/05/2022 Allergic rhinitis, cause unspecified 01/18/2009 10/05/2022 documented as of this encounter (statuses as of 05/10/2023) [facility] Narrative* Problem Noted Date Diagnosed Date Resolved Date Pulmonary embolus 09/01/2018 10/05/2022 Allergic rhinitis, cause unspecified 01/18/2009 10/05/2022 documented as of this encounter (statuses as of 05/14/2023) [facility] Narrative* Problem Noted Date Diagnosed Date Resolved Date Pulmonary embolus 09/01/2018 10/05/2022 Allergic rhinitis, cause unspecified 01/18/2009 10/05/2022 documented as of this encounter (statuses as of 05/21/2023) [facility] Narrative* Problem Noted Date Diagnosed Date Resolved Date Pulmonary embolus 09/01/2018 10/05/2022 Allergic rhinitis, cause unspecified 01/18/2009 10/05/2022 documented as of this encounter (statuses as of 07/30/2023) [facility] Narrative* Problem Noted Date Diagnosed Date Resolved Date Pulmonary embolus 09/01/2018 10/05/2022 Allergic rhinitis, cause unspecified 01/18/2009 10/05/2022 documented as of this encounter (statuses as of 08/12/2023) [facility] Narrative* Problem Noted Date Diagnosed Date Resolved Date Pulmonary embolus 09/01/2018 10/05/2022 Allergic rhinitis, cause unspecified 01/18/2009 10/05/2022 documented as of this encounter (statuses as of 08/12/2023) [facility] Narrative* Problem Noted Date Diagnosed Date Resolved Date Pulmonary embolus 09/01/2018 10/05/2022 Allergic rhinitis, cause unspecified 01/18/2009 10/05/2022 documented as of this encounter (statuses as of 10/30/2023) [facility] Narrative* Problem Noted Date Diagnosed Date Resolved Date Pulmonary embolus 09/01/2018 10/05/2022 Allergic rhinitis, cause unspecified 01/18/2009 10/05/2022 documented as of this encounter (statuses as of 11/18/2023) [facility] Narrative* Problem Noted Date Diagnosed Date Resolved Date Pulmonary embolus 09/01/2018 10/05/2022 Allergic rhinitis, cause unspecified 01/18/2009 10/05/2022 documented as of this encounter (statuses as of 12/04/2023) [facility]* Diagnosis Onset Date Resolution Status Essential (primary) hypertension chronic Pulmonary embolism June 21, 2018 c hronic History of coronary artery stent placement April resolved Segmental and somatic dysfun ction of cervical region acute Segmental and somatic dysfun ction of lumbar region acute Segmental and somatic dysfun ction of pelvic region acute Segmental and somatic dysfun ction of thoracic region acute DDD (degenerative disc disease), cervical chronic Segmental and somatic dysfun ction of cervical region acute Segmental and somatic dysfun ction of lumbar region acute Segmental and somatic dysfun ction of pelvic region acute Segmental and somatic dysfun ction of thoracic region acute DDD (degenerative disc disease), cervical chronic Segmental and somatic dysfun ction of cervical region acute Segmental and somatic dysfun ction of lumbar region acute Segmental and somatic dysfun ction of pelvic region acute Segmental and somatic dysfun ction of thoracic region acute DDD (degenerative disc disease), cervical chronic Diabetes acute Atherosclerotic heart diseas e of [place] coronary artery without angina pectoris chronic COPD (chronic obstructive pulmonary disease) chronic CLARK (dyspnea on exertion) ch ronic Essential (primary) hypertension chronic History of renal cell cancer chronic Hyperlipidemia chronic Hypothyroidism chronic Secondary polycythemia chron ic COPD (chronic obstructive pulmonary disease) chronic 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 Back pain chronic Segmental and somatic dysfun ction of cervical region acute Segmental and somatic dysfun ction of lumbar region acute Segmental and somatic dysfun ction of pelvic region acute Segmental and somatic dysfun ction of thoracic region acute DDD (degenerative disc disease), cervical chronic [facility] Work Phone: [phone] 523-657809-23-2018 Evaluation note* Diagnosis Onset Date Resolution Status Essential (primary) hypertension chronic Pulmonary embolism June 21, 2018 c hronic History of coronary artery stent placement April resolved Diabetes acute Segmental and somatic dysfun ction of cervical region acute Essential (primary) hypertension chronic Hyperlipidemia chronic Hypothyroidism chronic Obstructive 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 History of coronary artery stent placement April resolved Segmental and somatic dysfun ction of cervical region acute Segmental and somatic dysfun ction of lumbar region acute Segmental and somatic dysfun ction of pelvic region acute Segmental and somatic dysfun ction of thoracic region acute Back pain chronic DDD (degenerative disc disease), cervical chronic COPD (chronic obstructive pulmonary disease) chronic 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 Diabetes acute Atherosclerotic heart diseas e of [place] coronary artery without angina pectoris chronic COPD (chronic obstructive pulmonary disease) chronic Essential (primary) hypertension chronic Hyperlipidemia chronic Hypothyroidism chronic Obstructive 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 Pulmonary embolism June 21, 2018 c hronic History of coronary artery stent placement April resolved Segmental and somatic dysfun ction of cervical region acute Segmental and somatic dysfun ction of lumbar region acute Segmental and somatic dysfun ction of pelvic region acute Segmental and somatic dysfun ction of thoracic region acute Back pain chronic DDD (degenerative disc disease), cervical chronic Hip pain acute MRSA bacteremia acute Sepsis associated hypotension acute COPD (chronic obstructive pulmonary disease) chronic Obstructive sleep apnea [facility] Work Phone: Evaluation note* Diagnosis Onset Date Resolution Status Segmental and somatic dysfunction of cervical region acute Segmental and somatic dysfunction of lumbar region acute Segmental and somatic dysfunction of pelvic region acute Segmental and somatic dysfunction of thoracic region acute DDD (degenerative disc disease), cervical chronic Segmental and somatic dysfunction of cervical region acute Segmental and somatic dysfunction of lumbar region acute Segmental and somatic dysfunction of pelvic region acute Segmental and somatic dysfunction of thoracic region acute DDD (degenerative disc disease), cervical chronic Diabetes acute Atherosclerotic heart diseas e of [place] coronary artery without angina pectoris chronic COPD (chronic obstructive pulmonary disease) chronic CLARK (dyspnea on exertion) ch ronic Essential (primary) hypertension chronic History of renal cell cancer chronic Hyperlipidemia chronic Hypothyroidism chronic Secondary polycythemia chron ic COPD (chronic obstructive pulmonary disease) chronic Obstructive sleep apnea [facility] Back pain chronic Segmental and somatic dysfunction of cervical region acute Segmental and somatic dysfunction of lumbar region acute Segmental and somatic dysfunction of pelvic region acute Segmental and somatic dysfunction of thoracic region acute DDD (degenerative disc disease), cervical chronic Segmental and somatic dysfunction of cervical region acute Segmental and somatic dysfunction of lumbar region acute Segmental and somatic dysfunction of pelvic region acute Segmental and somatic dysfunction of thoracic region acute Back pain chronic DDD (degenerative disc disease), cervical chronic [facility] Work Phone: Evaluation note* Diagnosis Secondary polycythemia Polycythemia, secondary [facility] Diagnosis Onset Date Resolution Status COPD (chronic obstructive pu lmonary disease) chronic Obstructive sleep apnea [facility] Back pain noneactive Segmental and somatic dysfun ction of cervical region acute Segmental and somatic dysfun ction of lumbar region acute Segmental and somatic dysfun ction of pelvic region acute Segmental and somatic dysfun ction of thoracic region acute DDD (degenerative disc disease), cervical chronic Segmental and somatic dysfun ction of cervical region acute Segmental and somatic dysfun ction of lumbar region acute Segmental and somatic dysfun ction of pelvic region acute Segmental and somatic dysfun ction of thoracic region acute Back pain chronic DDD (degenerative disc disease), cervical chronic Segmental and somatic dysfun ction of cervical region acute Segmental and somatic dysfun ction of lumbar region acute Segmental and somatic dysfun ction of pelvic region acute Segmental and somatic dysfun ction of thoracic region acute Back pain chronic DDD (degenerative disc disease), cervical chronic Segmental and somatic dysfun ction of cervical region acute Segmental and somatic dysfun ction of lumbar region acute Segmental and somatic dysfun ction of pelvic region acute Segmental and somatic dysfun ction of thoracic region acute Back pain chronic DDD (degenerative disc disease), cervical chronic Essential (primary) hypertension chronic Pulmonary embolism June 21, 2018 c hronic History of coronary artery stent placement April resolved [facility] Work Phone: Evaluation note* Diagnosis Onset Date Resolution Status Back pain noneactive Segmental and somatic dysfun ction of cervical region acute Segmental and somatic dysfun ction of lumbar region acute Segmental and somatic dysfun ction of pelvic region acute Segmental and somatic dysfun ction of thoracic region acute DDD (degenerative disc disease), cervical chronic Segmental and somatic dysfun ction of cervical region acute Segmental and somatic dysfun ction of lumbar region acute Segmental and somatic dysfun ction of pelvic region acute Segmental and somatic dysfun ction of thoracic region acute Back pain chronic DDD (degenerative disc disease), cervical chronic Segmental and somatic dysfun ction of cervical region acute Segmental and somatic dysfun ction of lumbar region acute Segmental and somatic dysfun ction of pelvic region acute Segmental and somatic dysfun ction of thoracic region acute Back pain chronic DDD (degenerative disc disease), cervical chronic Segmental and somatic dysfun ction of cervical region acute Segmental and somatic dysfun ction of lumbar region acute Segmental and somatic dysfun ction of pelvic region acute Segmental and somatic dysfun ction of thoracic region acute Back pain chronic DDD (degenerative disc disease), cervical chronic Essential (primary) hypertension chronic Pulmonary embolism June 21, 2018 c hronic History of coronary artery stent placement April resolved Diabetes acute Segmental and somatic dysfun ction of cervical region acute Essential (primary) hypertension chronic Hyperlipidemia chronic Hypothyroidism chronic 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 History of coronary artery stent placement April resolved [facility] Work Phone: Evaluation note* Diagnosis Onset Date Resolution Status Segmental and somatic dysfun ction of cervical region acute Segmental and somatic dysfun ction of lumbar region acute Segmental and somatic dysfun ction of pelvic region acute Segmental and somatic dysfun ction of thoracic region acute Back pain chronic DDD (degenerative disc disease), cervical chronic Segmental and somatic dysfun ction of cervical region acute Segmental and somatic dysfun ction of lumbar region acute Segmental and somatic dysfun ction of pelvic region acute Segmental and somatic dysfun ction of thoracic region acute Back pain chronic DDD (degenerative disc disease), cervical chronic Segmental and somatic dysfun ction of cervical region acute Segmental and somatic dysfun ction of lumbar region acute Segmental and somatic dysfun ction of pelvic region acute Segmental and somatic dysfun ction of thoracic region acute Back pain chronic DDD (degenerative disc disease), cervical chronic Essential (primary) hypertension chronic Pulmonary embolism June 21, 2018 c hronic History of coronary artery stent placement April resolved Diabetes acute Segmental and somatic dysfun ction of cervical region acute Essential (primary) hypertension chronic Hyperlipidemia chronic Hypothyroidism chronic Obstructive 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 History of coronary artery stent placement April resolved Segmental and somatic dysfun ction of cervical region acute Segmental and somatic dysfun ction of lumbar region acute Segmental and somatic dysfun ction of pelvic region acute Segmental and somatic dysfun ction of thoracic region acute Back pain chronic DDD (degenerative disc disease), cervical chronic [facility] Work Phone: Evaluation note* Diagnosis Onset Date Resolution Status Segmental and somatic dysfun ction of cervical region acute Segmental and somatic dysfun ction of lumbar region acute Segmental and somatic dysfun ction of pelvic region acute Segmental and somatic dysfun ction of thoracic region acute Back pain chronic DDD (degenerative disc disease), cervical chronic Segmental and somatic dysfun ction of cervical region acute Segmental and somatic dysfun ction of lumbar region acute Segmental and somatic dysfun ction of pelvic region acute Segmental and somatic dysfun ction of thoracic region acute Back pain chronic DDD (degenerative disc disease), cervical chronic Essential (primary) hypertension chronic Pulmonary embolism June 21, 2018 c hronic History of coronary artery stent placement April resolved Diabetes acute Segmental and somatic dysfun ction of cervical region acute Essential (primary) hypertension chronic Hyperlipidemia chronic Hypothyroidism chronic Obstructive 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 History of coronary artery stent placement April resolved Segmental and somatic dysfun ction of cervical region acute Segmental and somatic dysfun ction of lumbar region acute Segmental and somatic dysfun ction of pelvic region acute Segmental and somatic dysfun ction of thoracic region acute Back pain chronic DDD (degenerative disc disease), cervical chronic [facility] Work Phone: Evaluation note* Diagnosis Onset Date Resolution Status Segmental and somatic dysfun ction of cervical region acute Segmental and somatic dysfun ction of lumbar region acute Segmental and somatic dysfun ction of pelvic region acute Segmental and somatic dysfun ction of thoracic region acute Back pain chronic DDD (degenerative disc disease), cervical chronic Essential (primary) hypertension chronic Pulmonary embolism June 21, 2018 c hronic History of coronary artery stent placement April resolved Diabetes acute Segmental and somatic dysfun ction of cervical region acute Essential (primary) hypertension chronic Hyperlipidemia chronic Hypothyroidism chronic Obstructive 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 History of coronary artery stent placement April resolved Segmental and somatic dysfun ction of cervical region acute Segmental and somatic dysfun ction of lumbar region acute Segmental and somatic dysfun ction of pelvic region acute Segmental and somatic dysfun ction of thoracic region acute Back pain chronic DDD (degenerative disc disease), cervical chronic COPD (chronic obstructive pulmonary disease) chronic Obstructive 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 Diabetes acute Atherosclerotic heart diseas e of [place] coronary artery without angina pectoris chronic COPD (chronic obstructive pulmonary disease) chronic Essential (primary) hypertension chronic Hyperlipidemia chronic Hypothyroidism chronic Obstructive 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 Pulmonary embolism June 21, 2018 c hronic History of coronary artery stent placement April resolved Segmental and somatic dysfun ction of cervical region acute Segmental and somatic dysfun ction of lumbar region acute Segmental and somatic dysfun ction of pelvic region acute Segmental and somatic dysfun ction of thoracic region acute Back pain chronic DDD (degenerative disc disease), cervical chronic Hip pain acute [facility] Work Phone: Evaluation note* Diagnosis Onset Date Resolution Status Segmental and somatic dysfun ction of cervical region acute Segmental and somatic dysfun ction of lumbar region acute Segmental and somatic dysfun ction of pelvic region acute Segmental and somatic dysfun ction of thoracic region acute Back pain chronic DDD (degenerative disc disease), cervical chronic COPD (chronic obstructive pulmonary disease) chronic 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 Diabetes acute Atherosclerotic heart diseas e of [place] coronary artery without angina pectoris chronic COPD (chronic obstructive pulmonary disease) chronic Essential (primary) hypertension chronic Hyperlipidemia chronic Hypothyroidism chronic Obstructive 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 Pulmonary embolism June 21, 2018 c hronic History of coronary artery stent placement April resolved Segmental and somatic dysfun ction of cervical region acute Segmental and somatic dysfun ction of lumbar region acute Segmental and somatic dysfun ction of pelvic region acute Segmental and somatic dysfun ction of thoracic region acute Back pain chronic DDD (degenerative disc disease), cervical chronic Hip pain acute MRSA bacteremia acute Sepsis associated hypotension acute COPD (chronic obstructive pulmonary disease) chronic Obstructive 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 Diabetes acute Hip pain acute MRSA bacteremia acute [facility] Work Phone: Evaluation note* Diagnosis Onset Date Resolution Status COPD (chronic obstructive pulmonary disease) chronic Obstructive 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 Diabetes acute Atherosclerotic heart diseas e of [place] coronary artery without angina pectoris chronic COPD (chronic obstructive pulmonary disease) chronic Essential (primary) hypertension chronic Hyperlipidemia chronic Hypothyroidism chronic Obstructive 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 Pulmonary embolism June 21, 2018 c hronic History of coronary artery stent placement April resolved Segmental and somatic dysfun ction of cervical region acute Segmental and somatic dysfun ction of lumbar region acute Segmental and somatic dysfun ction of pelvic region acute Segmental and somatic dysfun ction of thoracic region acute Back pain chronic DDD (degenerative disc disease), cervical chronic Hip pain acute MRSA bacteremia acute Sepsis associated hypotension acute COPD (chronic obstructive pulmonary disease) chronic 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 Diabetes acute Hip pain acute MRSA bacteremia acute Abscess, gluteal, left acute Coronary artery disease acut e Debility acute Diabetes mellitus acute History of renal cell carcinoma acute Hyperlipidemia acute Hypothyroidism acute Iliopsoas abscess acute MRSA bacteremia acute Osteomyelitis of left hip [place] Polycythemia vera acute Hypertension chronic [facility] Work Phone: Evaluation note* Diagnosis MRSA infection- Primary Methicillin resistant Staphylococcus aureus in conditions classified elsewhere and of unspecified site Staphylococcal arthritis of left hip (HCC) Pyogenic arthritis, pelvic region and thigh Receiving intravenous antibiotic treatment as outpatient Encounter for long-term (current) use of antibiotics [facility] Diagnosis Onset Date Resolution Status Segmental and somatic dysfun ction of cervical region acute Segmental and somatic dysfun ction of lumbar region acute Segmental and somatic dysfun ction of pelvic region acute Segmental and somatic dysfun ction of thoracic region acute Back pain chronic DDD (degenerative disc disease), cervical chronic Hip pain acute MRSA bacteremia acute Sepsis associated hypotension acute COPD (chronic obstructive pulmonary disease) chronic 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 Diabetes acute Hip pain acute MRSA bacteremia acute Abscess, gluteal, left acute Coronary artery disease acut e Debility acute Diabetes mellitus acute Fissure in skin of foot acut e History of renal cell carcinoma acute Hyperlipidemia acute Hypothyroidism acute Iliopsoas abscess acute Lymphedema acute MRSA bacteremia acute Osteomyelitis of left hip [place] Polycythemia vera acute Hypertension chronic COPD (chronic obstructive pulmonary disease) chronic 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 CLARK (dyspnea on exertion) [place] Hyperlipidemia acute Tachycardia acute Essential (primary) hypertension chronic History of coronary artery stent placement April [facility] Work Phone: Evaluation note* Diagnosis Osteomyelitis of left femur, unspecified type (HCC)- Primary Osteomyelitis of other site, unspecified type (HCC) Pyogenic arthritis of left hip, due to unspecified organism (HCC) Osteomyelitis of left femur, unspecified type (HCC) Osteomyelitis of other site, unspecified type (HCC) Pyogenic arthritis of left hip, due to unspecified organism (HCC) documented in this encounter [facility] note* Diagnosis Osteomyelitis of left femur, unspecified type (HCC)- Primary Osteomyelitis of left femur, unspecified type (HCC) Osteomyelitis of other site, unspecified type (HCC) Pyogenic arthritis of left hip, due to unspecified organism (HCC) [facility]* Diagnosis Pre-op testing- Primary Preoperative examination, unspecified Hx of custodial use of blood thinners Long-term (current) use of anticoagulants Osteomyelitis of left femur, unspecified type (HCC) Coagulation defect, unspecified (HCC) Coronary artery disease involving [place] coronary artery of [place] heart without angina pectoris Unspecified essential hypertension Obstructive sleep apnea (adult) (pediatric) Asthma, unspecified asthma severity, unspecified whether complicated, unspecified whether persistent Anticipated difficulty with intubation Type 2 diabetes mellitus with other specified complication, without long-term current use of insulin (HCC) Osteomyelitis of left femur, unspecified type (HCC) Osteomyelitis of other site, unspecified type (HCC) Pyogenic arthritis of left hip, due to unspecified organism ([facility]) [facility]* Diagnosis Olecranon bursitis of right elbow- Primary Olecranon bursitis 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, subsequent encounter Osteomyelitis of other site, unspecified type (HCC) MRSA infection Methicillin resistant Staphylococcus aureus in conditions classified elsewhere and of unspecified site [facility]* Diagnosis Osteomyelitis of left femur, unspecified type (HCC)- Primary [facility]* Diagnosis Osteomyelitis of left femur, unspecified type (HCC)- Primary Status post total replacement of left hip documented in this encounter [facility] note* Diagnosis Onset Date Resolution Status Coronary artery disease acut e Debility acute Diabetes resolved Hyperlipidemia acute Hypothyroidism acute Polycythemia vera acute Hypertension chronic Abscess, gluteal, left resol rosalva Fissure in skin of foot reso lved History of renal cell carcinoma resolved Iliopsoas abscess resolved Lymphedema resolved MRSA bacteremia resolved Osteomyelitis of left hip re solved COPD (chronic obstructive pulmonary disease) chronic Obstructive 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 [place] (dyspnea on exertion) [place] Hyperlipidemia acute Tachycardia acute Essential (primary) hypertension chronic History of coronary artery stent placement April resolved Coronary artery disease acut e Diabetes mellitus acute Hyperlipidemia acute Hypothyroidism acute Insomnia acute Osteomyelitis acute Septic joint acute Hypertension chronic Obstructive 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 Neck pain acute Segmental and somatic dysfun ction of cervical region acute Segmental and somatic dysfun ction of thoracic region acute DDD (degenerative disc disease), cervical chronic [facility] Work Phone: Evaluation note* Diagnosis 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, subsequent encounter- Primary MRSA infection Methicillin resistant Staphylococcus aureus in conditions classified elsewhere and of unspecified site Elbow wound, right, sequela Elevated serum creatinine Other nonspecific findings on examination of blood Obesity, morbid, BMI 40.0-49.9 (HCC) Morbid obesity Chronic obstructive pulmonary disease, unspecified COPD type (HCC) Thrombocytopenia (HCC) Thrombocytopenia, unspecified Renal cell carcinoma of right kidney (HCC) Malnutrition of mild degree (HCC) Malnutrition of mild degree [facility] Onset Date Resolution Status Coronary artery disease acut e Debility acute Diabetes resolved Hyperlipidemia acute Hypothyroidism acute Polycythemia vera acute Hypertension chronic Abscess, gluteal, left resol rosalva Fissure in skin of foot reso lved History of renal cell carcinoma resolved Iliopsoas abscess resolved Lymphedema resolved MRSA bacteremia resolved Osteomyelitis of left hip re solved COPD (chronic obstructive pulmonary disease) chronic Obstructive 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 [place] (dyspnea on exertion) [place] Hyperlipidemia acute Tachycardia acute Essential (primary) hypertension chronic History of coronary artery stent placement April resolved Coronary artery disease acut e Diabetes mellitus acute Hyperlipidemia acute Hypothyroidism acute Insomnia acute Osteomyelitis acute Septic joint acute Hypertension chronic Obstructive 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 Neck pain acute Segmental and somatic dysfun ction of cervical region acute Segmental and somatic dysfun ction of thoracic region acute DDD (degenerative disc disease), cervical chronic Decubitus ulcer of right elbow, stage 3 acute Type II diabetes mellitus [place] Coronary artery disease acut e Decubitus ulcer of right elbow, stage 3 acute Diabetes mellitus acute Hyperlipidemia acute Hypothyroidism acute Osteomyelitis acute Tachycardia acute Type II diabetes mellitus [place] Hypertension [facility] Work Phone: Evaluation note* Diagnosis Onset Date Resolution Status Coronary artery disease acut e Debility acute Diabetes resolved Hyperlipidemia acute Hypothyroidism acute Polycythemia vera acute Hypertension chronic Abscess, gluteal, left resol rosalva Fissure in skin of foot reso lved History of renal cell carcinoma resolved Iliopsoas abscess resolved Lymphedema resolved MRSA bacteremia resolved Osteomyelitis of left hip re solved COPD (chronic obstructive pulmonary disease) chronic Obstructive 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 [place] (dyspnea on exertion) [place] Hyperlipidemia acute Tachycardia acute Essential (primary) hypertension chronic History of coronary artery stent placement April resolved Coronary artery disease acut e Diabetes mellitus acute Hyperlipidemia acute Hypothyroidism acute Insomnia acute Osteomyelitis acute Septic joint acute Hypertension chronic Obstructive 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 Neck pain acute Segmental and somatic dysfun ction of cervical region acute Segmental and somatic dysfun ction of thoracic region acute DDD (degenerative disc disease), cervical chronic Coronary artery disease acut e Decubitus ulcer of right elbow, stage 3 acute Diabetes mellitus acute Hyperlipidemia acute Hypothyroidism acute Osteomyelitis acute Tachycardia acute Type II diabetes mellitus [place] Hypertension chronic Decubitus ulcer of right elbow, stage 3 acute Type II diabetes mellitus [place] Hyperlipidemia acute Essential (primary) hypertension chronic History of coronary artery stent placement April resolved [facility] Work Phone: Evaluation note* Diagnosis Secondary polycythemia- Primary Polycythemia, secondary [facility] Diagnosis Onset Date Resolution Status Coronary artery disease acut e Diabetes mellitus acute Hyperlipidemia acute Hypothyroidism acute Insomnia acute Osteomyelitis acute Septic joint acute Hypertension chronic Obstructive 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 Neck pain acute Segmental and somatic dysfun ction of cervical region acute Segmental and somatic dysfun ction of thoracic region acute DDD (degenerative disc disease), cervical chronic Coronary artery disease acut e Decubitus ulcer of right elbow, stage 3 acute Diabetes mellitus acute Hyperlipidemia acute Hypothyroidism acute Osteomyelitis acute Tachycardia acute Type II diabetes mellitus [place] Hypertension chronic Decubitus ulcer of right elbow, stage 3 acute Type II diabetes mellitus [place] Hyperlipidemia acute Essential (primary) hypertension chronic History of coronary artery stent placement April resolved Decubitus ulcer of right elbow, stage 3 acute Type II diabetes mellitus [place] [facility] Work Phone: Evaluation note* Diagnosis Chronic antibiotic suppression- Primary Encounter for long-term (current) use of antibiotics 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, sequela MRSA infection Methicillin resistant Staphylococcus aureus in conditions classified elsewhere and of unspecified site Elevated serum creatinine Other nonspecific findings on examination of blood [facility] Diagnosis Status post total replacement of left hip- Primary Osteomyelitis of left femur, unspecified type (HCC) [facility] Diagnosis Secondary polycythemia Polycythemia, secondary [facility] Diagnosis Secondary polycythemia- Primary Polycythemia, secondary [facility] Diagnosis Status post total replacement of left hip- Primary Osteomyelitis of left femur, unspecified type (HCC) Trochanteric bursitis of left hip Enthesopathy of hip region [facility] Diagnosis Onset Date Resolution Status Neck pain acute Segmental and somatic dysfunction of cervical region acute Segmental and somatic dysfunction of lumbar region acute Segmental and somatic dysfunction of pelvic region acute Segmental and somatic dysfunction of thoracic region acute DDD (degenerative disc disease), cervical chronic Coronary artery disease acut e Hyperlipidemia acute Hypothyroidism acute Polycythemia vera acute Type II diabetes mellitus [place] COPD (chronic obstructive pulmonary disease) chronic Essential (primary) hypertension chronic Hypertension chronic Obstructive 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 Neck pain acute Segmental and somatic dysfunction of cervical region acute Segmental and somatic dysfunction of pelvic region acute Segmental and somatic dysfunction of thoracic region acute DDD (degenerative disc disease), cervical chronic Neck pain acute Segmental and somatic dysfunction of cervical region acute Segmental and somatic dysfunction of pelvic region acute Segmental and somatic dysfunction of thoracic region acute Back pain chronic DDD (degenerative disc disease), cervical chronic Neck pain acute Segmental and somatic dysfunction of cervical region acute Segmental and somatic dysfunction of pelvic region acute Segmental and somatic dysfunction of thoracic region acute Back pain chronic DDD (degenerative disc disease), cervical chronic [facility] Work Phone: Evaluation note* Diagnosis Thrombocytopenia (HCC)- Primary Thrombocytopenia, unspecified [facility] Diagnosis Status post total replacement of left hip- Primary Osteomyelitis of left femur, unspecified type (HCC) Trochanteric bursitis of left hip Enthesopathy of hip region [facility] Diagnosis Chronic antibiotic suppression- Primary Encounter for long-term (current) use of antibiotics Osteomyelitis, unspecified site, unspecified type (HCC) H/O staphylococcal infection Personal history of other infectious and parasitic disease [facility] Diagnosis Secondary polycythemia- Primary Polycythemia, secondary [facility]* Diagnosis Thrombocytopenia (HCC)- Primary Thrombocytopenia, unspecified [facility]* Diagnosis Secondary polycythemia- Primary Polycythemia, secondary Thrombocytopenia (HCC) Thrombocytopenia, unspecified Pulmonary embolism without acute cor pulmonale, unspecified chronicity, unspecified pulmonary embolism type (HCC) [facility]* Diagnosis Secondary polycythemia- Primary Polycythemia, secondary [facility]* Diagnosis Pre-op testing- Primary Preoperative examination, unspecified Hx of custodial use of blood thinners Long-term (current) use of anticoagulants Osteomyelitis of left femur, unspecified type (HCC) Coagulation defect, unspecified (HCC) Coronary artery disease involving [place] coronary artery of [place] heart without angina pectoris Unspecified essential hypertension Obstructive sleep apnea (adult) (pediatric) Asthma, unspecified asthma severity, unspecified whether complicated, unspecified whether persistent Anticipated difficulty with intubation Type 2 diabetes mellitus with other specified complication, without long-term current use of insulin (HCC) Status post total replacement of left hip- Primary Osteomyelitis of left femur, unspecified type (HCC) documented in this encounter [facility] note* Diagnosis Pre-op testing- Primary Preoperative examination, unspecified Hx of custodial use of blood thinners Long-term (current) use of anticoagulants Osteomyelitis of left femur, unspecified type (HCC) Coagulation defect, unspecified (HCC) Coronary artery disease involving [place] coronary artery of [place] heart without angina pectoris Unspecified essential hypertension Obstructive sleep apnea (adult) (pediatric) Asthma, unspecified asthma severity, unspecified whether complicated, unspecified whether persistent Anticipated difficulty with intubation Type 2 diabetes mellitus with other specified complication, without long-term current use of insulin (HCC) Chronic antibiotic suppression- Primary Encounter for long-term (current) use of antibiotics Hospital acquired MRSA infection Methicillin resistant Staphylococcus aureus in conditions classified elsewhere and of unspecified site Prosthetic hip infection, sequela documented in this encounter [facility] note* Diagnosis Pre-op testing- Primary Preoperative examination, unspecified Hx of custodial use of blood thinners Long-term (current) use of anticoagulants Osteomyelitis of left femur, unspecified type (HCC) Coagulation defect, unspecified (HCC) Coronary artery disease involving [place] coronary artery of [place] heart without angina pectoris Unspecified essential hypertension Obstructive sleep apnea (adult) (pediatric) Asthma, unspecified asthma severity, unspecified whether complicated, unspecified whether persistent Anticipated difficulty with intubation Type 2 diabetes mellitus with other specified complication, without long-term current use of insulin (HCC) Chronic antibiotic suppression- Primary Encounter for long-term (current) use of antibiotics H/O staphylococcal infection Personal history of other infectious and parasitic disease Constipation, unspecified constipation type documented in this encounter [facility] note* Diagnosis Pre-op testing- Primary Preoperative examination, unspecified Hx of custodial use of blood thinners Long-term (current) use of anticoagulants Osteomyelitis of left femur, unspecified type (HCC) Coagulation defect, unspecified (HCC) Coronary artery disease involving [place] coronary artery of [place] heart without angina pectoris Unspecified essential hypertension Obstructive sleep apnea (adult) (pediatric) Asthma, unspecified asthma severity, unspecified whether complicated, unspecified whether persistent Anticipated difficulty with intubation Type 2 diabetes mellitus with other specified complication, without long-term current use of insulin (HCC) Secondary polycythemia- Primary Polycythemia, secondary documented in this encounter [facility] note* Diagnosis Pre-op testing- Primary Preoperative examination, unspecified 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 Long-term (current) use of anticoagulants Osteomyelitis of left femur, unspecified type (HCC) Coagulation defect, unspecified (HCC) Coronary artery disease involving [place] coronary artery of [place] heart without angina pectoris Unspecified essential hypertension Obstructive sleep apnea (adult) (pediatric) Asthma, unspecified asthma severity, unspecified whether complicated, unspecified whether persistent (HCC) Anticipated difficulty with intubation Type 2 diabetes mellitus with other specified complication, without long-term current use of insulin (HCC) Secondary polycythemia- Primary Polycythemia, secondary documented in this encounter [facility] note* Diagnosis Pre-op testing- Primary Preoperative examination, unspecified Hx of custodial use of blood thinners Long-term (current) use of anticoagulants Osteomyelitis of left femur, unspecified type (HCC) Coagulation defect, unspecified (HCC) Coronary artery disease involving [place] coronary artery of [place] heart without angina pectoris Unspecified essential hypertension Obstructive sleep apnea (adult) (pediatric) Asthma, unspecified asthma severity, unspecified whether complicated, unspecified whether persistent (HCC) Anticipated difficulty with intubation Type 2 diabetes mellitus with other specified complication, without long-term current use of insulin (HCC) Status post total replacement of left hip- Primary Osteomyelitis of left femur, unspecified type (HCC) Trochanteric bursitis of left hip Enthesopathy of hip region documented in this encounter [facility] note* Diagnosis Pre-op testing- Primary Preoperative examination, unspecified 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 Long-term (current) use of anticoagulants Osteomyelitis of left femur, unspecified type (HCC) Coagulation defect, unspecified (HCC) Coronary artery disease involving [place] coronary artery of [place] heart without angina pectoris Unspecified essential hypertension Obstructive sleep apnea (adult) (pediatric) Asthma, unspecified asthma severity, unspecified whether complicated, unspecified whether persistent (HCC) Anticipated difficulty with intubation Type 2 diabetes mellitus with other specified complication, without long-term current use of insulin (HCC) Secondary polycythemia- Primary Polycythemia, secondary History of kidney cancer Personal history of malignant neoplasm of kidney Other chronic pulmonary embolism without acute cor pulmonale (HCC) Thrombocytopenia Thrombocytopenia, unspecified documented in this encounter [facility] note* Diagnosis Pre-op testing- Primary Preoperative examination, unspecified 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 Long-term (current) use of anticoagulants Osteomyelitis of left femur, unspecified type (HCC) Coagulation defect, unspecified (HCC) Coronary artery disease involving [place] coronary artery of [place] heart without angina pectoris Unspecified essential hypertension Obstructive sleep apnea (adult) (pediatric) Asthma, unspecified asthma severity, unspecified whether complicated, unspecified whether persistent (HCC) Anticipated difficulty with intubation Type 2 diabetes mellitus with other specified complication, without long-term current use of insulin (HCC) Secondary polycythemia- Primary Polycythemia, secondary documented in this encounter [facility] note* Diagnosis Pre-op testing- Primary Preoperative examination, unspecified Hx of custodial use of blood thinners Long-term (current) use of anticoagulants Osteomyelitis of left femur, unspecified type (HCC) Coagulation defect, unspecified (HCC) Coronary artery disease involving [place] coronary artery of [place] heart without angina pectoris Unspecified essential hypertension Obstructive sleep apnea (adult) (pediatric) Asthma, unspecified asthma severity, unspecified whether complicated, unspecified whether persistent (HCC) Anticipated difficulty with intubation Type 2 diabetes mellitus with other specified complication, without long-term current use of insulin (HCC) Secondary polycythemia Polycythemia, secondary documented in this encounter [facility] noteNo assessment information availableWMercy [facility] Work Phone: Reason for referral (narrative)* Diagnostic Procedure Only (Routine) - Pending Review Specialty Diagnoses / Procedures Referred By Nellie t Referred To Contact XR IMAGING Diagnoses Osteomyelitis of left femur, unspecified type (HCC) Procedures XR PELVIS 1V AP RADIOLOGIC EXAMINATION PELVIS 1/2 VIEWS Goyo Cheng MD [address] [place] [address] Xr Imaging Referral ID Status Reason Start Date Expiration Date Visits Requested Visits Authorized [id number] Pending Review Auto-Generat ed Referral 12/10/2022 01/07/2024 1 1 [facility] for referral (narrative)* Diagnostic Procedure Only (Routine) - Pending Review Specialty Diagnoses / Procedures Referred By Nellie t Referred To Contact XR IMAGING Diagnoses Osteomyelitis of left femur, unspecified type (HCC) Status post total replacement of left hip Procedures XR PELVIS 1V AP RADIOLOGIC EXAMINATION PELVIS 1/2 VIEWS Goyo Cheng MD [address] [place] [address] [place] [id number] Xr Imaging Referral ID Status Reason Start Date Expiration Date Visits Requested Visits Authorized [id number] Pending Review Auto-Generat ed Referral 12/31/2022 01/29/2024 1 1 [facility] for referral (narrative)* Diagnostic Procedure Only (Routine) - Pending Review Specialty Diagnoses / Procedures Referred By Nellie santoyo Referred To Contact XR IMAGING Diagnoses Status post total replacement of left hip Osteomyelitis of left femur, unspecified type (HCC) Procedures XR PELVIS 1V AP RADIOLOGIC EXAMINATION PELVIS 1/2 VIEWS Goyo Cheng MD [address] [place] [address] [place] [id number] Xr Imaging Referral ID Status Reason Start Date Expiration Date Visits Requested Visits Authorized [id number] Pending Review Auto-Generat ed Referral 05/13/2023 06/10/2024 1 1 [facility] for referral (narrative)* Diagnostic Procedure Only (Routine) - Pending Review Specialty Diagnoses / Procedures Referred By Nellie santoyo Referred To Contact XR IMAGING Diagnoses Status post total replacement of left hip Osteomyelitis of left femur, unspecified type (HCC) Procedures XR PELVIS 1V AP RADIOLOGIC EXAMINATION PELVIS 1/2 VIEWS Goyo Cheng MD [address] [place] [address] [place] [id number] [place] [id number] Referral ID Status Reason Start Date Expiration Date Visits Requested Visits Authorized [id number] Pending Review Auto-Generat ed Referral 09/10/2024 1 1 [facility] for referral (narrative)* Diagnostic Procedure Only (Routine) - Pending Review Specialty Diagnoses / Procedures Referred By Contac t Referred To Contact XR IMAGING Diagnoses Status post total replacement of left hip Osteomyelitis of left femur, unspecified type (HCC) Trochanteric bursitis of left hip Procedures XR PELVIS 1V AP RADIOLOGIC EXAMINATION PELVIS 1/2 VIEWS Goyo Cheng MD [address] [place] [address] [place] [id number] [place] [address] Referral ID Status Reason Start Date Expiration Date Visits Requested Visits Authorized [id number] Pending Review Auto-Generat ed Referral 11/18/2023 12/15/2024 1 1 [facility] for referral (narrative)* Diagnostic Procedure Only (Routine) - New Request Specialty Diagnoses / Procedures Referred By Niruac t Referred To Contact XR IMAGING Diagnoses Status post total replacement of left hip Osteomyelitis of left femur, unspecified type (HCC) Procedures XR PELVIS 1V AP RADIOLOGIC EXAMINATION PELVIS 1/2 VIEWS Goyo Cheng MD [address] [place] [address] [place] [address] [place] [address] Referral ID Status Reason Start Date Expiration Date Visits Requested Visits Authorized [id number] New Request Auto-Generat ed Referral 05/18/2024 06/15/2025 1 1 [facility] for referral (narrative)No reason for referral information availableWMercy [facility] Work Phone: Chief Complaint and Reason for Visit Chief Complaint 8m fu S/O Back pain S/O Back pain Back pain 4 M FU 6 M FU S/O Back pain Reason for Visit Essential (primary) hypertension Pulmonary embolism History of coronary artery stent placement Segmental and somatic dysfunction of cervical region Segmental and somatic dysfunction of lumbar region Segmental and somatic dysfunction of pelvic region Segmental and somatic dysfunction of thoracic region DDD (degenerative disc disease), cervical Segmental and somatic dysfunction of cervical region Segmental and somatic dysfunction of lumbar region Segmental and somatic dysfunction of pelvic region Segmental and somatic dysfunction of thoracic region DDD (degenerative disc disease), cervical Segmental and somatic dysfunction of cervical region Segmental and somatic dysfunction of lumbar region Segmental and somatic dysfunction of pelvic region Segmental and somatic dysfunction of thoracic region DDD (degenerative disc disease), cervical Diabetes Atherosclerotic heart disease of [place] coronary artery without angina pectoris COPD (chronic obstructive pulmonary disease) CLARK (dyspnea on exertion) Essential (primary) hypertension History of renal cell cancer Hyperlipidemia Hypothyroidism Secondary polycythemia COPD (chronic obstructive pulmonary disease) Obstructive sleep apnea Back pain Segmental and somatic dysfunction of cervical region Segmental and somatic dysfunction of lumbar region Segmental and somatic dysfunction of pelvic region Segmental and somatic dysfunction of thoracic region DDD (degenerative disc disease), cervical Chief Complaint S/O Back pain Back pain 4 M FU 6 M FU S/O Back pain S/O Back pain Reason for Visit Segmental and somati c dysfunction of cervical region Segmental and somatic dysfunction of lumbar region Segmental and somatic dysfunction of pelvic region Segmental and somatic dysfunction of thoracic region DDD (degenerative disc disease), cervical Segmental and somatic dysfunction of cervical region Segmental and somatic dysfunction of lumbar region Segmental and somatic dysfunction of pelvic region Segmental and somatic dysfunction of thoracic region DDD (degenerative disc disease), cervical Diabetes Atherosclerotic heart disease of [place] coronary artery without angina pectoris COPD (chronic obstructive pulmonary disease) CLARK (dyspnea on exertion) Essential (primary) hypertension History of renal cell cancer Hyperlipidemia Hypothyroidism Secondary polycythemia COPD (chronic obstructive pulmonary disease) Obstructive sleep apnea Back pain Segmental and somatic dysfunction of cervical region Segmental and somatic dysfunction of lumbar region Segmental and somatic dysfunction of pelvic region Segmental and somatic dysfunction of thoracic region DDD (degenerative disc disease), cervical Segmental and somatic dysfunction of cervical region Segmental and somatic dysfunction of lumbar region Segmental and somatic dysfunction of pelvic region Segmental and somatic dysfunction of thoracic region Back pain DDD (degenerative disc disease), cervical Chief Complaint 6 M FU S/O Back pain S/O Back pain S/O Back pain Back pain 6 M FU Reason for Visit COPD (chronic obstru ctive pulmonary disease) Obstructive sleep apnea Back pain Segmental and somatic dysfunction of cervical region Segmental and somatic dysfunction of lumbar region Segmental and somatic dysfunction of pelvic region Segmental and somatic dysfunction of thoracic region DDD (degenerative disc disease), cervical Segmental and somatic dysfunction of cervical region Segmental and somatic dysfunction of lumbar region Segmental and somatic dysfunction of pelvic region Segmental and somatic dysfunction of thoracic region Back pain DDD (degenerative disc disease), cervical Segmental and somatic dysfunction of cervical region Segmental and somatic dysfunction of lumbar region Segmental and somatic dysfunction of pelvic region Segmental and somatic dysfunction of thoracic region Back pain DDD (degenerative disc disease), cervical Segmental and somatic dysfunction of cervical region Segmental and somatic dysfunction of lumbar region Segmental and somatic dysfunction of pelvic region Segmental and somatic dysfunction of thoracic region Back pain DDD (degenerative disc disease), cervical Essential (primary) hypertension Pulmonary embolism History of coronary artery stent placement Chief Complaint S/O Back pain S/O Back pain S/O Back pain Back pain 6 M FU 4 M FU S/O ADD ORDER FOR YNES Reason for Visit Back pain Segmental and somatic dysfunction of cervical region Segmental and somatic dysfunction of lumbar region Segmental and somatic dysfunction of pelvic region Segmental and somatic dysfunction of thoracic region DDD (degenerative disc disease), cervical Segmental and somatic dysfunction of cervical region Segmental and somatic dysfunction of lumbar region Segmental and somatic dysfunction of pelvic region Segmental and somatic dysfunction of thoracic region Back pain DDD (degenerative disc disease), cervical Segmental and somatic dysfunction of cervical region Segmental and somatic dysfunction of lumbar region Segmental and somatic dysfunction of pelvic region Segmental and somatic dysfunction of thoracic region Back pain DDD (degenerative disc disease), cervical Segmental and somatic dysfunction of cervical region Segmental and somatic dysfunction of lumbar region Segmental and somatic dysfunction of pelvic region Segmental and somatic dysfunction of thoracic region Back pain DDD (degenerative disc disease), cervical Essential (primary) hypertension Pulmonary embolism History of coronary artery stent placement Diabetes Segmental and somatic dysfunction of cervical region Essential (primary) hypertension Hyperlipidemia Hypothyroidism Obstructive sleep apnea History of coronary artery stent placement Chief Complaint S/O Back pain S/O Back pain Back pain 6 M FU 4 M FU S/O ADD ORDER FOR YNES Neck pain Reason for Visit Segmental and somati c dysfunction of cervical region Segmental and somatic dysfunction of lumbar region Segmental and somatic dysfunction of pelvic region Segmental and somatic dysfunction of thoracic region Back pain DDD (degenerative disc disease), cervical Segmental and somatic dysfunction of cervical region Segmental and somatic dysfunction of lumbar region Segmental and somatic dysfunction of pelvic region Segmental and somatic dysfunction of thoracic region Back pain DDD (degenerative disc disease), cervical Segmental and somatic dysfunction of cervical region Segmental and somatic dysfunction of lumbar region Segmental and somatic dysfunction of pelvic region Segmental and somatic dysfunction of thoracic region Back pain DDD (degenerative disc disease), cervical Essential (primary) hypertension Pulmonary embolism History of coronary artery stent placement Diabetes Segmental and somatic dysfunction of cervical region Essential (primary) hypertension Hyperlipidemia Hypothyroidism Obstructive sleep apnea History of coronary artery stent placement Segmental and somatic dysfunction of cervical region Segmental and somatic dysfunction of lumbar region Segmental and somatic dysfunction of pelvic region Segmental and somatic dysfunction of thoracic region Back pain DDD (degenerative disc disease), cervical Chief Complaint S/O Back pain Back pain 6 M FU 4 M FU S/O ADD ORDER FOR YNES Neck pain S/O ADD ORDER FOR YNES Reason for Visit Segmental and somati c dysfunction of cervical region Segmental and somatic dysfunction of lumbar region Segmental and somatic dysfunction of pelvic region Segmental and somatic dysfunction of thoracic region Back pain DDD (degenerative disc disease), cervical Segmental and somatic dysfunction of cervical region Segmental and somatic dysfunction of lumbar region Segmental and somatic dysfunction of pelvic region Segmental and somatic dysfunction of thoracic region Back pain DDD (degenerative disc disease), cervical Essential (primary) hypertension Pulmonary embolism History of coronary artery stent placement Diabetes Segmental and somatic dysfunction of cervical region Essential (primary) hypertension Hyperlipidemia Hypothyroidism Obstructive sleep apnea History of coronary artery stent placement Segmental and somatic dysfunction of cervical region Segmental and somatic dysfunction of lumbar region Segmental and somatic dysfunction of pelvic region Segmental and somatic dysfunction of thoracic region Back pain DDD (degenerative disc disease), cervical Chief Complaint Back pain 6 M FU 4 M FU S/O ADD ORDER FOR YNES Neck pain S/O ADD ORDER FOR YNES 6 M FU BLOOD SUGAR CHECKS Back pain S/O NECK PAIN/RX HERE INTRACTABLE HIP PAIN Reason for Visit Segmental and somati c dysfunction of cervical region Segmental and somatic dysfunction of lumbar region Segmental and somatic dysfunction of pelvic region Segmental and somatic dysfunction of thoracic region Back pain DDD (degenerative disc disease), cervical Essential (primary) hypertension Pulmonary embolism History of coronary artery stent placement Diabetes Segmental and somatic dysfunction of cervical region Essential (primary) hypertension Hyperlipidemia Hypothyroidism Obstructive sleep apnea History of coronary artery stent placement Segmental and somatic dysfunction of cervical region Segmental and somatic dysfunction of lumbar region Segmental and somatic dysfunction of pelvic region Segmental and somatic dysfunction of thoracic region Back pain DDD (degenerative disc disease), cervical COPD (chronic obstructive pulmonary disease) Obstructive sleep apnea Diabetes Atherosclerotic heart disease of [place] coronary artery without angina pectoris COPD (chronic obstructive pulmonary disease) Essential (primary) hypertension Hyperlipidemia Hypothyroidism Obstructive sleep apnea Pulmonary embolism History of coronary artery stent placement Segmental and somatic dysfunction of cervical region Segmental and somatic dysfunction of lumbar region Segmental and somatic dysfunction of pelvic region Segmental and somatic dysfunction of thoracic region Back pain DDD (degenerative disc disease), cervical Hip pain Chief Complaint 6 M FU 4 M FU S/O ADD ORDER FOR YNES Neck pain S/O ADD ORDER FOR YNES 6 M FU BLOOD SUGAR CHECKS Back pain S/O NECK PAIN/RX HERE INTRACTABLE HIP PAIN INTRACTABLE L HIP PAIN INTRACTABLE L HIP PAIN INTRACTABLE L HIP PAIN INTRACTABLE L HIP PAIN INTRACTABLE L HIP PAIN INTRACTABLE L HIP PAIN INTRACTABLE L HIP PAIN INTRACTABLE L HIP PAIN Reason for Visit Essential (primary) hypertension Pulmonary embolism History of coronary artery stent placement Diabetes Segmental and somatic dysfunction of cervical region Essential (primary) hypertension Hyperlipidemia Hypothyroidism Obstructive sleep apnea History of coronary artery stent placement Segmental and somatic dysfunction of cervical region Segmental and somatic dysfunction of lumbar region Segmental and somatic dysfunction of pelvic region Segmental and somatic dysfunction of thoracic region Back pain DDD (degenerative disc disease), cervical COPD (chronic obstructive pulmonary disease) Obstructive sleep apnea Diabetes Atherosclerotic heart disease of [place] coronary artery without angina pectoris COPD (chronic obstructive pulmonary disease) Essential (primary) hypertension Hyperlipidemia Hypothyroidism Obstructive sleep apnea Pulmonary embolism History of coronary artery stent placement Segmental and somatic dysfunction of cervical region Segmental and somatic dysfunction of lumbar region Segmental and somatic dysfunction of pelvic region Segmental and somatic dysfunction of thoracic region Back pain DDD (degenerative disc disease), cervical Hip pain MRSA bacteremia Sepsis associated hypotension COPD (chronic obstructive pulmonary disease) Obstructive sleep apnea Chief Complaint Neck pain S/O ADD ORDER FOR YNES 6 M FU BLOOD SUGAR CHECKS Back pain S/O NECK PAIN/RX HERE INTRACTABLE HIP PAIN INTRACTABLE L HIP PAIN INTRACTABLE L HIP PAIN INTRACTABLE L HIP PAIN INTRACTABLE L HIP PAIN INTRACTABLE L HIP PAIN INTRACTABLE L HIP PAIN INTRACTABLE L HIP PAIN INTRACTABLE L HIP PAIN INTRACTABLE L HIP PAIN 2 M FU Reason for Visit Segmental and somati c dysfunction of cervical region Segmental and somatic dysfunction of lumbar region Segmental and somatic dysfunction of pelvic region Segmental and somatic dysfunction of thoracic region Back pain DDD (degenerative disc disease), cervical COPD (chronic obstructive pulmonary disease) Obstructive sleep apnea Diabetes Atherosclerotic heart disease of [place] coronary artery without angina pectoris COPD (chronic obstructive pulmonary disease) Essential (primary) hypertension Hyperlipidemia Hypothyroidism Obstructive sleep apnea Pulmonary embolism History of coronary artery stent placement Segmental and somatic dysfunction of cervical region Segmental and somatic dysfunction of lumbar region Segmental and somatic dysfunction of pelvic region Segmental and somatic dysfunction of thoracic region Back pain DDD (degenerative disc disease), cervical Hip pain MRSA bacteremia Sepsis associated hypotension COPD (chronic obstructive pulmonary disease) Obstructive sleep apnea Diabetes Hip pain MRSA bacteremia Chief Complaint Neck pain S/O ADD ORDER FOR YNES 6 M FU BLOOD SUGAR CHECKS Back pain S/O NECK PAIN/RX HERE INTRACTABLE HIP PAIN INTRACTABLE L HIP PAIN INTRACTABLE L HIP PAIN INTRACTABLE L HIP PAIN INTRACTABLE L HIP PAIN INTRACTABLE L HIP PAIN INTRACTABLE L HIP PAIN INTRACTABLE L HIP PAIN INTRACTABLE L HIP PAIN INTRACTABLE L HIP PAIN 2 M FU SOB Reason for Visit Segmental and somati c dysfunction of cervical region Segmental and somatic dysfunction of lumbar region Segmental and somatic dysfunction of pelvic region Segmental and somatic dysfunction of thoracic region Back pain DDD (degenerative disc disease), cervical COPD (chronic obstructive pulmonary disease) Obstructive sleep apnea Diabetes Atherosclerotic heart disease of [place] coronary artery without angina pectoris COPD (chronic obstructive pulmonary disease) Essential (primary) hypertension Hyperlipidemia Hypothyroidism Obstructive sleep apnea Pulmonary embolism History of coronary artery stent placement Segmental and somatic dysfunction of cervical region Segmental and somatic dysfunction of lumbar region Segmental and somatic dysfunction of pelvic region Segmental and somatic dysfunction of thoracic region Back pain DDD (degenerative disc disease), cervical Hip pain MRSA bacteremia Sepsis associated hypotension COPD (chronic obstructive pulmonary disease) Obstructive sleep apnea Diabetes Hip pain MRSA bacteremia Chief Complaint S/O ADD ORDER FOR STEFAN NICOLE 6 M FU BLOOD SUGAR CHECKS Back pain S/O NECK PAIN/RX HERE INTRACTABLE HIP PAIN INTRACTABLE L HIP PAIN INTRACTABLE L HIP PAIN INTRACTABLE L HIP PAIN INTRACTABLE L HIP PAIN INTRACTABLE L HIP PAIN INTRACTABLE L HIP PAIN INTRACTABLE L HIP PAIN INTRACTABLE L HIP PAIN INTRACTABLE L HIP PAIN 2 M FU SOB LT HIP PAIN SEPTIC ARTHRITIS OF L HIP Reason for Visit COPD (chronic obstru ctive pulmonary disease) Obstructive sleep apnea Diabetes Atherosclerotic heart disease of [place] coronary artery without angina pectoris COPD (chronic obstructive pulmonary disease) Essential (primary) hypertension Hyperlipidemia Hypothyroidism Obstructive sleep apnea Pulmonary embolism History of coronary artery stent placement Segmental and somatic dysfunction of cervical region Segmental and somatic dysfunction of lumbar region Segmental and somatic dysfunction of pelvic region Segmental and somatic dysfunction of thoracic region Back pain DDD (degenerative disc disease), cervical Hip pain MRSA bacteremia Sepsis associated hypotension COPD (chronic obstructive pulmonary disease) Obstructive sleep apnea Diabetes Hip pain MRSA bacteremia Abscess, gluteal, left Coronary artery disease Debility Diabetes mellitus History of renal cell carcinoma Hyperlipidemia Hypothyroidism Iliopsoas abscess MRSA bacteremia Osteomyelitis of left hip Polycythemia vera Hypertension Chief Complaint Back pain S/O NECK PAIN/RX HERE INTRACTABLE HIP PAIN INTRACTABLE L HIP PAIN INTRACTABLE L HIP PAIN INTRACTABLE L HIP PAIN INTRACTABLE L HIP PAIN INTRACTABLE L HIP PAIN INTRACTABLE L HIP PAIN INTRACTABLE L HIP PAIN INTRACTABLE L HIP PAIN INTRACTABLE L HIP PAIN 2 M FU SOB LT HIP PAIN SEPTIC ARTHRITIS OF L HIP cpap S/P [facility], IN TCU Reason for Visit Segmental and somati c dysfunction of cervical region Segmental and somatic dysfunction of lumbar region Segmental and somatic dysfunction of pelvic region Segmental and somatic dysfunction of thoracic region Back pain DDD (degenerative disc disease), cervical Hip pain MRSA bacteremia Sepsis associated hypotension COPD (chronic obstructive pulmonary disease) Obstructive sleep apnea Diabetes Hip pain MRSA bacteremia Abscess, gluteal, left Coronary artery disease Debility Diabetes mellitus Fissure in skin of foot History of renal cell carcinoma Hyperlipidemia Hypothyroidism Iliopsoas abscess Lymphedema MRSA bacteremia Osteomyelitis of left hip Polycythemia vera Hypertension COPD (chronic obstructive pulmonary disease) Obstructive sleep apnea CLARK (dyspnea on exertion) Hyperlipidemia Tachycardia Essential (primary) hypertension History of coronary artery stent placement Chief Complaint SOB LT HIP PAIN SEPTIC ARTHRITIS OF L HIP cpap S/P [facility], IN TCU [facility] T[facility] FU NECK PAIN Amb Documentation Reason for Visit Coronary artery dise ase Debility Diabetes Hyperlipidemia Hypothyroidism Polycythemia vera Hypertension Abscess, gluteal, left Fissure in skin of foot History of renal cell carcinoma Iliopsoas abscess Lymphedema MRSA bacteremia Osteomyelitis of left hip COPD (chronic obstructive pulmonary disease) Obstructive sleep apnea CLARK (dyspnea on exertion) Hyperlipidemia Tachycardia Essential (primary) hypertension History of coronary artery stent placement Coronary artery disease Diabetes mellitus Hyperlipidemia Hypothyroidism Insomnia Osteomyelitis Septic joint Hypertension Obstructive sleep apnea Neck pain Segmental and somatic dysfunction of cervical region Segmental and somatic dysfunction of thoracic region DDD (degenerative disc disease), cervical Chief Complaint SEPTIC ARTHRITIS OF L HIP cpap S/P [facility], IN TCU [facility] T[facility] FU NECK PAIN Amb Documentation wound LABS AND XRAY- ELBOW ULCER wound 3 M FU Reason for Visit Coronary artery dise ase Debility Diabetes Hyperlipidemia Hypothyroidism Polycythemia vera Hypertension Abscess, gluteal, left Fissure in skin of foot History of renal cell carcinoma Iliopsoas abscess Lymphedema MRSA bacteremia Osteomyelitis of left hip COPD (chronic obstructive pulmonary disease) Obstructive sleep apnea CLARK (dyspnea on exertion) Hyperlipidemia Tachycardia Essential (primary) hypertension History of coronary artery stent placement Coronary artery disease Diabetes mellitus Hyperlipidemia Hypothyroidism Insomnia Osteomyelitis Septic joint Hypertension Obstructive sleep apnea Neck pain Segmental and somatic dysfunction of cervical region Segmental and somatic dysfunction of thoracic region DDD (degenerative disc disease), cervical Decubitus ulcer of right elbow, stage 3 Type II diabetes mellitus Coronary artery disease Decubitus ulcer of right elbow, stage 3 Diabetes mellitus Hyperlipidemia Hypothyroidism Osteomyelitis Tachycardia Type II diabetes mellitus Hypertension Chief Complaint SEPTIC ARTHRITIS OF L HIP cpap S/P [facility], IN [facility]CU [facility] FU NECK PAIN Amb Documentation wound LABS AND XRAY- [facility]LCER 3 M FU wound wound wound wound 3 M FU Reason for Visit Coronary artery dise ase Debility Diabetes Hyperlipidemia Hypothyroidism Polycythemia vera Hypertension Abscess, gluteal, left Fissure in skin of foot History of renal cell carcinoma Iliopsoas abscess Lymphedema MRSA bacteremia Osteomyelitis of left hip COPD (chronic obstructive pulmonary disease) Obstructive sleep apnea CLARK (dyspnea on exertion) Hyperlipidemia Tachycardia Essential (primary) hypertension History of coronary artery stent placement Coronary artery disease Diabetes mellitus Hyperlipidemia Hypothyroidism Insomnia Osteomyelitis Septic joint Hypertension Obstructive sleep apnea Neck pain Segmental and somatic dysfunction of cervical region Segmental and somatic dysfunction of thoracic region DDD (degenerative disc disease), cervical Coronary artery disease Decubitus ulcer of right elbow, stage 3 Diabetes mellitus Hyperlipidemia Hypothyroidism Osteomyelitis Tachycardia Type II diabetes mellitus Hypertension Decubitus ulcer of right elbow, stage 3 Type II diabetes mellitus Hyperlipidemia Essential (primary) hypertension History of coronary artery stent placement Chief Complaint [facility] TCU FU NECK PAIN Amb Documentation wound LABS AND XRAY- ELBOW ULCER 3 M FU wound wound wound wound 3 M FU wound wound wound Reason for Visit Coronary artery dise ase Diabetes mellitus Hyperlipidemia Hypothyroidism Insomnia Osteomyelitis Septic joint Hypertension Obstructive sleep apnea Neck pain Segmental and somatic dysfunction of cervical region Segmental and somatic dysfunction of thoracic region DDD (degenerative disc disease), cervical Coronary artery disease Decubitus ulcer of right elbow, stage 3 Diabetes mellitus Hyperlipidemia Hypothyroidism Osteomyelitis Tachycardia Type II diabetes mellitus Hypertension Decubitus ulcer of right elbow, stage 3 Type II diabetes mellitus Hyperlipidemia Essential (primary) hypertension History of coronary artery stent placement Decubitus ulcer of right elbow, stage 3 Type II diabetes mellitus Chief Complaint Back pain 3 M FU Back pain Back pain Rash on RT leg Back pain INT LABS Reason for Visit Neck pain Segmental and somatic dysfunction of cervical region Segmental and somatic dysfunction of lumbar region Segmental and somatic dysfunction of pelvic region Segmental and somatic dysfunction of thoracic region DDD (degenerative disc disease), cervical Coronary artery disease Hyperlipidemia Hypothyroidism Polycythemia vera Type II diabetes mellitus COPD (chronic obstructive pulmonary disease) Essential (primary) hypertension Hypertension Obstructive sleep apnea Neck pain Segmental and somatic dysfunction of cervical region Segmental and somatic dysfunction of pelvic region Segmental and somatic dysfunction of thoracic region DDD (degenerative disc disease), cervical Neck pain Segmental and somatic dysfunction of cervical region Segmental and somatic dysfunction of pelvic region Segmental and somatic dysfunction of thoracic region Back pain DDD (degenerative disc disease), cervical Neck pain Segmental and somatic dysfunction of cervical region Segmental and somatic dysfunction of pelvic region Segmental and somatic dysfunction of thoracic region Back pain DDD (degenerative disc disease), cervical Chief Complaint Admit Date 4 M FU August 23, 2024 2:22pm 1 Y FU November 09, 2024 12:56pm BACK PAIN November 24, 2024 10:19am [id number] December 08, 2024 6:5 3am [id number] December 13, 2024 7:1 3am 4 M FU December 13, 2024 2:2 9pm Reason for Visit Admit Date Asthma August 23, 2024 2:22pm Coronary artery disease August 23, 2 024 2:22pm Diabetes mellitus August 23, 2024 2:22pm Hypothyroidism August 23, 2024 2:22pm Hyperlipidemia August 23, 2024 2:22pm Hypertension August 23, 2024 2:22pm Obstructive sleep apnea August 23, 2 024 2:22pm Essential (primary) hypertension 2024 12:56pm History of coronary artery stent placeme nt November 09, 2024 12:56pm Hyperlipidemia November 09, 2024 12:56pm Segmental and somatic dysfunction of cer vical region November 24, 2024 10:19am Segmental and somatic dysfunction of pel alfredo region November 24, 2024 10:19am Segmental and somatic dysfunction of tho racic region November 24, 2024 10:19am Back pain November 24, 2024 10:19am DDD (degenerative disc disease), cervica l November 24, 2024 10:19am Asthma December 13, 2024 2:2 9pm Coronary artery disease December 13, 2024 2:29pm Hypothyroidism December 13, 2024 2:2 9pm Type II diabetes mellitus December 13 2:29pm Atherosclerotic heart diseas e of [place] coronary artery without angina pectoris December 13, 2024 2:29pm Essential (primary) hypertension November [id number] 2:29pm Hyperlipidemia December 13, 2024 2:2 9pm Hypertension December 13, 2024 2:2 9pm Obstructive sleep apnea December 13, 2024 2:29pm Chief Complaint Admit Date 6 M FU January 19, 2025 8:4 0am 5 M FU May 16, 2025 2: 32pm Reason for Visit Admit Date Asthma January 19, 2025 8:4 0am Obesity January 19, 2025 8:4 0am Obstructive sleep apnea January 19, 2025 8:40am Chief Complaint Admit Date 5 M FU May 16, 2025 2: 32pm right 2nd toe infection dorsal ip level May 17, 2025 8:03am Family History No Family History Records Found Relationship Condition Age at Onset Recorded Date/T [place] mother Coronary artery disease Unknown Malignant neoplasm of breast Unknown Diabetes mellitus Unknown Advance Directives No Advanced Directives Records Found Advance Directive Response Recorded Date/ Time Advance Directives Yes October 22, 2019 4:18pm Living Will Yes March 21, 2021 5:34pm Power of Addiction Social Worker Yes March 21 5:34pm Advance Directive Response Recorded Date/ Time Name of Medical Power of Addiction Social Worker present August 03, 2022 11:46am Advance Directives Yes October 22, 2019 4:18pm Living Will Yes August 03 11:46am Power of Addiction Social Worker Yes August 03, 2022 11:46am Advance Directive Response Recorded Date/ Time Name of Medical Power of Addiction Social Worker La Nenamony Haque n August 03, 2022 4:13pm Advance Directives Yes October 22, 2019 3:18pm Living Will Yes August 03 4:13pm Power of Addiction Social Worker Yes August 03, 2022 4:13pm Advance Directive Response Recorded Date/ Time Name of Medical Power of Addiction Social Worker La Nenamony Haque n August 03, 2022 4:13pm Name of Medical Power of Addiction Social Worker ? September 13, 2022 8:30am Advance Directives Yes October 22, 2019 3:18pm Living Will Yes September 13, 8:30am Power of Addiction Social Worker Yes September 13, 2022 8:30am Advance Directive Response Recorded Date/ Time Name of Medical Power of Addiction Social Worker La Nena Jessicato n August 03, 2022 4:13pm Name of Medical Power of Addiction Social Worker ? September 13, 2022 8:30am Name of Medical Power of Addiction Social Worker La Nena Lopezto n, October 08, 2022 10:08am Advance Directives Yes October 22, 2019 3:18pm Living Will Yes October 08 10:08am Power of Addiction Social Worker Yes October 08, 2022 10:08am Latest Code Status on File Code Status Date Activated Date Inactivated Comments Full Code 09/28/2022 2:38 AM 10/06/2022 12:58 AM Full Code Order Discussed With: Patient Latest Code Status on File Code Status Date Activated Date Inactivated Comments Full Code 11/22/2022 1:10 PM 11/25/2022 4:33 PM Full Code 09/28/2022 2:38 AM 10/06/2022 12:58 AM Latest Code Status on File Code Status Date Activated Date Inactivated Comments Full Code 11/22/2022 1:10 PM 11/25/2022 4:33 PM Full Code 09/28/2022 2:38 AM 10/06/2022 12:58 AM Advance Directive Response Recorded Date/ Time Name of Medical Power of Addiction Social Worker ? September 13, 2022 9:30am Name of Medical Power of Addiction Social Worker La Nena Haque n, October 08, 2022 11:08am Advance Directives Yes October 22, 2019 4:18pm Living Will Yes October 08 11:08am Power of Addiction Social Worker Yes October 08, 2022 11:08am Advance Directive Response Recorded Date/ Time Advance Directives Yes January 31, 2023 1:06pm Living Will Yes January 31, 2023 1: 06pm Power of Addiction Social Worker Yes January 31, 2023 1:06pm Name of Medical Power of Addiction Social Worker La Nena whitney, October 08, 2022 11:08am Advance Directive Response Recorded Date/ Time Advance Directives Yes January 31, 2023 1:06pm Living Will Yes January 31, 2023 1: 06pm Power of Addiction Social Worker Yes January 31, 2023 1:06pm Latest Code Status on File Code Status Date Activated Date Inactivated Comments Full Code 11/22/2022 1:10 PM 11/25/2022 4:33 PM Question Answer Comments Full Code Order Discussed With: Patient Code Status History Code Status Date Activated Date Inactivated Comments Full Code 09/28/2022 2:38 AM 10/06/2022 12:58 AM Question Answer Comments Full Code Order Discussed With: Patient Latest Code Status on File Code Status Date Activated Date Inactivated Comments Full Code 11/22/2022 1:10 PM 11/25/2022 4:33 PM Question Answer Comments Full Code Order Discussed With: Patient Code Status History Code Status Date Activated Date Inactivated Comments Full Code 09/28/2022 2:38 AM 10/06/2022 12:58 AM Question Answer Comments Full Code Order Discussed With: Patient Advance Directive Response Recorded Date/ Time Advance Directives Yes July 22, 2023 12:13pm Living Will Yes July 22 12:13pm Power of Addiction Social Worker Yes July 22, 2023 12:13pm Date Activated Date Inactivated Comments 11/22/2022 1:10 PM 11/25/2022 4:33 PM Question Answer Comments Full Code Order Discussed With: Patient Date Activated Date Inactivated Comments 09/28/2022 2:38 AM 10/06/2022 12:58 AM Question Answer Comments Full Code Order Discussed With: Patient Date Activated Date Inactivated Comments 11/22/2022 1:10 PM 11/25/2022 4:33 PM Question Answer Comments Full Code Order Discussed With: Patient Date Activated Date Inactivated Comments 09/28/2022 2:38 AM 10/06/2022 12:58 AM Question Answer Comments Full Code Order Discussed With: Patient Advance Directive Response Recorded Date/ Time Living Will Yes July 22 1:13pm Power of Addiction Social Worker Yes July 22, 2023 1:13pm Advance Directives Yes July 22, 2023 1:13pm Advance Directive Response Recorded Date/ Time Living Will Yes July 22 1:13pm Do you have a Healthcare Power of Addiction Social Worker? Yes July 22, 2023 1:13pm Advance Directives Yes July 22, 2023 1:13pm Advance Directive Response Recorded Date/ Time Advance Directives Yes July 22, 2023 1:13pm Health Concerns Infection Onset Date Last Indicated Resolved Time COVID-19 Rule-Out 10/04/2022 10/04/2022 10/04/2022 12:40 PM EST COVID-19 Rule-Out 10/05/2022 10/05/2022 10/05/2022 1:55 PM EST Reason for Referral Specialty Diagnoses / Procedures Referred By Contac t Referred To Contact Diagnoses Elbow wound, right, sequela Procedures CONSULT TO WOUND CENTER ([facility]) Linsey Garber MD [address] [place] [address] Referral ID Status Reason Start Date Expiration Date Visits Requested Visits Authorized [id number] Ref Not Required PCP Requested Referral 01/21/2023 04/21/2023 1 1 Summary Purpose Additional Source Comments Source Comments (unrecognize d section and content) In the event this informatio n is protected by the Federal Confidentiality of Alcohol and Drug Abuse Patient Records regulations: The Federal rules restrict any use of the information to criminally investigate or prosecute any alcohol or drug abuse patient.[facility] the event this information is protected by the Federal Confidentiality of Alcohol and Drug Abuse Patient Records regulations: The Federal rules restrict any use of the information to criminally investigate or prosecute any alcohol or drug abuse patient.[facility]In the event this information is protected by the Federal Confidentiality of Alcohol and Drug Abuse Patient Records regulations: The Federal rules restrict any use of the information to criminally investigate or prosecute any alcohol or drug abuse patient.[facility]In the event this information is protected by the Federal Confidentiality of Alcohol and Drug Abuse Patient Records regulations: The Federal rules restrict any use of the information to criminally investigate or prosecute any alcohol or drug abuse patient.[facility]In the event this information is protected by the Federal Confidentiality of Alcohol and Drug Abuse Patient Records regulations: The Federal rules restrict any use of the information to criminally investigate or prosecute any alcohol or drug abuse patient.[facility]In the event this information is protected by the Federal Confidentiality of Alcohol and Drug Abuse Patient Records regulations: The Federal rules restrict any use of the information to criminally investigate or prosecute any alcohol or drug abuse patient.[facility]In the event this information is protected by the Federal Confidentiality of Alcohol and Drug Abuse Patient Records regulations: The Federal rules restrict any use of the information to criminally investigate or prosecute any alcohol or drug abuse patient.[facility]In the event this information is protected by the Federal Confidentiality of Alcohol and Drug Abuse Patient Records regulations: The Federal rules restrict any use of the information to criminally investigate or prosecute any alcohol or drug abuse patient.[facility]In the event this information is protected by the Federal Confidentiality of Alcohol and Drug Abuse Patient Records regulations: The Federal rules restrict any use of the information to criminally investigate or prosecute any alcohol or drug abuse patient.[facility]In the event this information is protected by the Federal Confidentiality of Alcohol and Drug Abuse Patient Records regulations: The Federal rules restrict any use of the information to criminally investigate or prosecute any alcohol or drug abuse patient.[facility] HospitalIn the event this information is protected by the Federal Confidentiality of Alcohol and Drug Abuse Patient Records regulations: The Federal rules restrict any use of the information to criminally investigate or prosecute any alcohol or drug abuse patient.[facility] HospitalIn the event this information is protected by the Federal Confidentiality of Alcohol and Drug Abuse Patient Records regulations: The Federal rules restrict any use of the information to criminally investigate or prosecute any alcohol or drug abuse patient.[facility] HospitalIn the event this information is protected by the Federal Confidentiality of Alcohol and Drug Abuse Patient Records regulations: The Federal rules restrict any use of the information to criminally investigate or prosecute any alcohol or drug abuse patient.[facility] HospitalIn the event this information is protected by the Federal Confidentiality of Alcohol and Drug Abuse Patient Records regulations: The Federal rules restrict any use of the information to criminally investigate or prosecute any alcohol or drug abuse patient.[facility] HospitalIn the event this information is protected by the Federal Confidentiality of Alcohol and Drug Abuse Patient Records regulations: The Federal rules restrict any use of the information to criminally investigate or prosecute any alcohol or drug abuse patient.[facility] HospitalIn the event this information is protected by the Federal Confidentiality of Alcohol and Drug Abuse Patient Records regulations: The Federal rules restrict any use of the information to criminally investigate or prosecute any alcohol or drug abuse patient.[facility] HospitalIn the event this information is protected by the Federal Confidentiality of Alcohol and Drug Abuse Patient Records regulations: The Federal rules restrict any use of the information to criminally investigate or prosecute any alcohol or drug abuse patient.[facility] HospitalIn the event this information is protected by the Federal Confidentiality of Alcohol and Drug Abuse Patient Records regulations: The Federal rules restrict any use of the information to criminally investigate or prosecute any alcohol or drug abuse patient.[facility] HospitalIn the event this information is protected by the Federal Confidentiality of Alcohol and Drug Abuse Patient Records regulations: The Federal rules restrict any use of the information to criminally investigate or prosecute any alcohol or drug abuse patient.[facility] HospitalIn the event this information is protected by the Federal Confidentiality of Alcohol and Drug Abuse Patient Records regulations: The Federal rules restrict any use of the information to criminally investigate or prosecute any alcohol or drug abuse patient.[facility] HospitalIn the event this information is protected by the Federal Confidentiality of Alcohol and Drug Abuse Patient Records regulations: The Federal rules restrict any use of the information to criminally investigate or prosecute any alcohol or drug abuse patient.[facility] HospitalIn the event this information is protected by the Federal Confidentiality of Alcohol and Drug Abuse Patient Records regulations: The Federal rules restrict any use of the information to criminally investigate or prosecute any alcohol or drug abuse patient.[facility] HospitalIn the event this information is protected by the Federal Confidentiality of Alcohol and Drug Abuse Patient Records regulations: The Federal rules restrict any use of the information to criminally investigate or prosecute any alcohol or drug abuse patient.[facility] HospitalIn the event this information is protected by the Federal Confidentiality of Alcohol and Drug Abuse Patient Records regulations: The Federal rules restrict any use of the information to criminally investigate or prosecute any alcohol or drug abuse patient.[facility] HospitalIn the event this information is protected by the Federal Confidentiality of Alcohol and Drug Abuse Patient Records regulations: The Federal rules restrict any use of the information to criminally investigate or prosecute any alcohol or drug abuse patient.[facility] HospitalIn the event this information is protected by the Federal Confidentiality of Alcohol and Drug Abuse Patient Records regulations: The Federal rules restrict any use of the information to criminally investigate or prosecute any alcohol or drug abuse patient.[facility] HospitalIn the event this information is protected by the Federal Confidentiality of Alcohol and Drug Abuse Patient Records regulations: The Federal rules restrict any use of the information to criminally investigate or prosecute any alcohol or drug abuse patient.[facility] HospitalIn the event this information is protected by the Federal Confidentiality of Alcohol and Drug Abuse Patient Records regulations: The Federal rules restrict any use of the information to criminally investigate or prosecute any alcohol or drug abuse patient.[facility] HospitalIn the event this information is protected by the Federal Confidentiality of Alcohol and Drug Abuse Patient Records regulations: The Federal rules restrict any use of the information to criminally investigate or prosecute any alcohol or drug abuse patient.[facility] HospitalIn the event this information is protected by the Federal Confidentiality of Alcohol and Drug Abuse Patient Records regulations: The Federal rules restrict any use of the information to criminally investigate or prosecute any alcohol or drug abuse patient.[facility] HospitalIn the event this information is protected by the Federal Confidentiality of Alcohol and Drug Abuse Patient Records regulations: The Federal rules restrict any use of the information to criminally investigate or prosecute any alcohol or drug abuse patient.[facility] HospitalIn the event this information is protected by the Federal Confidentiality of Alcohol and Drug Abuse Patient Records regulations: The Federal rules restrict any use of the information to criminally investigate or prosecute any alcohol or drug abuse patient.[facility] HospitalIn the event this information is protected by the Federal Confidentiality of Alcohol and Drug Abuse Patient Records regulations: The Federal rules restrict any use of the information to criminally investigate or prosecute any alcohol or drug abuse patient.[facility] HospitalIn the event this information is protected by the Federal Confidentiality of Alcohol and Drug Abuse Patient Records regulations: The Federal rules restrict any use of the information to criminally investigate or prosecute any alcohol or drug abuse patient.[facility] HospitalIn the event this information is protected by the Federal Confidentiality of Alcohol and Drug Abuse Patient Records regulations: The Federal rules restrict any use of the information to criminally investigate or prosecute any alcohol or drug abuse patient.[facility] HospitalIn the event this information is protected by the Federal Confidentiality of Alcohol and Drug Abuse Patient Records regulations: The Federal rules restrict any use of the information to criminally investigate or prosecute any alcohol or drug abuse patient.[facility] HospitalIn the event this information is protected by the Federal Confidentiality of Alcohol and Drug Abuse Patient Records regulations: The Federal rules restrict any use of the information to criminally investigate or prosecute any alcohol or drug abuse patient.[facility] HospitalIn the event this information is protected by the Federal Confidentiality of Alcohol and Drug Abuse Patient Records regulations: The Federal rules restrict any use of the information to criminally investigate or prosecute any alcohol or drug abuse patient.[facility] HospitalIn the event this information is protected by the Federal Confidentiality of Alcohol and Drug Abuse Patient Records regulations: The Federal rules restrict any use of the information to criminally investigate or prosecute any alcohol or drug abuse patient.[facility] HospitalIn the event this information is protected by the Federal Confidentiality of Alcohol and Drug Abuse Patient Records regulations: The Federal rules restrict any use of the information to criminally investigate or prosecute any alcohol or drug abuse patient.[facility] HospitalIn the event this information is protected by the Federal Confidentiality of Alcohol and Drug Abuse Patient Records regulations: The Federal rules restrict any use of the information to criminally investigate or prosecute any alcohol or drug abuse patient.[facility] HospitalIn the event this information is protected by the Federal Confidentiality of Alcohol and Drug Abuse Patient Records regulations: The Federal rules restrict any use of the information to criminally investigate or prosecute any alcohol or drug abuse patient.[facility] HospitalIn the event this information is protected by the Federal Confidentiality of Alcohol and Drug Abuse Patient Records regulations: The Federal rules restrict any use of the information to criminally investigate or prosecute any alcohol or drug abuse patient.[facility] HospitalIn the event this information is protected by the Federal Confidentiality of Alcohol and Drug Abuse Patient Records regulations: The Federal rules restrict any use of the information to criminally investigate or prosecute any alcohol or drug abuse patient.[facility] HospitalIn the event this information is protected by the Federal Confidentiality of Alcohol and Drug Abuse Patient Records regulations: The Federal rules restrict any use of the information to criminally investigate or prosecute any alcohol or drug abuse patient.[facility] HospitalIn the event this information is protected by the Federal Confidentiality of Alcohol and Drug Abuse Patient Records regulations: The Federal rules restrict any use of the information to criminally investigate or prosecute any alcohol or drug abuse patient.[facility] the event this information is protected by the Federal Confidentiality of Alcohol and Drug Abuse Patient Records regulations: The Federal rules restrict any use of the information to criminally investigate or prosecute any alcohol or drug abuse patient.[facility] HospitalIn the event this information is protected by the Federal Confidentiality of Alcohol and Drug Abuse Patient Records regulations: The Federal rules restrict any use of the information to criminally investigate or prosecute any alcohol or drug abuse patient.[facility]In the event this information is protected by the Federal Confidentiality of Alcohol and Drug Abuse Patient Records regulations: The Federal rules restrict any use of the information to criminally investigate or prosecute any alcohol or drug abuse patient.[facility] HospitalIn the event this information is protected by the Federal Confidentiality of Alcohol and Drug Abuse Patient Records regulations: The Federal rules restrict any use of the information to criminally investigate or prosecute any alcohol or drug abuse patient.[facility] HospitalIn the event this information is protected by the Federal Confidentiality of Alcohol and Drug Abuse Patient Records regulations: The Federal rules restrict any use of the information to criminally investigate or prosecute any alcohol or drug abuse patient.[facility] HospitalIn the event this information is protected by the Federal Confidentiality of Alcohol and Drug Abuse Patient Records regulations: The Federal rules restrict any use of the information to criminally investigate or prosecute any alcohol or drug abuse patient.[facility] HospitalIn the event this information is protected by the Federal Confidentiality of Alcohol and Drug Abuse Patient Records regulations: The Federal rules restrict any use of the information to criminally investigate or prosecute any alcohol or drug abuse patient.[facility] HospitalIn the event this information is protected by the Federal Confidentiality of Alcohol and Drug Abuse Patient Records regulations: The Federal rules restrict any use of the information to criminally investigate or prosecute any alcohol or drug abuse patient.[facility] Reason for Visit (unrecogniz ed section and content) Reason Onset Date Comments Refill Request 03/25/2022 Reason Comments Patient Question Reason Comments CoPat Start Reason Comments Results Reason Onset Date Comments Results 10/28/2022 Reason Comments Patient Update Reason Comments CoPat Stop Reason Comments Infection Follow Up Reason Comments Orders Reason Comments Home Care MD to follow Reason Onset Date Comments Follow Up 11/25/2022 Reason Onset Date Comments Post Op Call 12/02/2022 Reason Comments MRSA infection Reason Comments Established Patient Pain has improved, d oing well with therapy Follow Up Pain has improved, d oing well with therapy Post Op Pain has improved, d oing well with therapy Pain Pain has improved, d oing well with therapy Reason Comments Established Patient Sx date 11/22/22 left hip, only has pain at therapy Follow Up Sx date 11/22/22 left hip, only has pain at therapy Post Op Sx date 11/22/22 left hip, only has pain at therapy Pain Sx date 11/22/22 left hip, only has pain at therapy Reason Comments Infection Follow Up Reason Comments Infection Follow Up Left hip Reason Comments Benefits Investigation Reason Comments Established Patient Follow Up Reason Onset Date Comments Refill Request 05/20/2023 Reason Comments Phlebotomy Reason Comments Appointment Reason Comments Established Patient No recent falls or i njuries has pain in left hip, no noted swelling/redness at site. Follow Up No recent falls or i njuries has pain in left hip, no noted swelling/redness at site. Pain No recent falls or i njuries has pain in left hip, no noted swelling/redness at site. 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 Pt updated Reason Onset Date Comments Refill Request 12/20/2024 Reason Comments Established Patient Reason Onset Date Comments Refill Request 04/21/2025 Care Teams (unrecognized sec tion and content) Dispatcher Refinery Relationship Specialty Start Date End Date Sebastien Stahl MD PCP - General 02/13/09 Christel Becker RN [facility] 10/13/18 Dispatcher Refinery Relationship Specialty Start Date End Date Sebastien Stahl MD PCP - General 02/13/09 Christel Becker RN [facility] 10/13/18 Dispatcher Refinery Relationship Specialty Start Date End Date Sebastien Stahl MD PCP - General 02/13/09 Christel Becker RN [facility] 10/13/18 Dispatcher Refinery Relationship Specialty Start Date End Date Sebastien Stahl MD PCP - General 02/13/09 Christel Becker RN [facility] 10/13/18 Dispatcher Refinery Relationship Specialty Start Date End Date Sebastien Stahl MD PCP - General 02/13/09 Christel Becker RN [facility] 10/13/18 Dispatcher Refinery Relationship Specialty Start Date End Date Sebastien Stahl MD PCP - General 02/13/09 Christel Becker RN [facility] 10/13/18 Dispatcher Refinery Relationship Specialty Start Date End Date Sebastien Stahl MD PCP - General 02/13/09 Christel Becker RN [facility] 10/13/18 Team Status: Active Member Role Status Dates Dr. Sebastien Stahl MD Family Provider Active Dr. Mohinder Quick MD Primary Care Provider Active Team Status: Inactive Member Role Status Dates Dr. Mohinder Quick MD Primary Care Provider, Attendi ng Provider Active Team Status: Inactive Member Role Status Dates Dr. Mohinder Quick MD Primary Care Provider, Referri ng Provider Active Dr. Ira Quiñonez DC Attending Provider Active Team Status: Active Member Role Status Dates Dr. Mohinder Quick MD Primary Care Provider Active Dr. Scott Wen DO Emergency Provider Active Dr. Shannan Acosta MD Admit Provider, Attending Provider, Other Provider Active Team Status: Active Member Role Status Dates Dr. Mohinder Quick MD Primary Care Provider Active Dr. Scott Wen , DO Emergency Provider Active Dr. Shannan Acosta MD Admit Provider, Other Provider Active Dr. Bakari Solis MD Other Provider Active Dr. Lary Moya DO Active Dr. Laurie Duran MD Attending Provider Active Team Status: Active Member Role Status Dates Dr. Mohinder Quick MD Primary Care Provider Active Dr. Rafael Torres MD Attending Provider Active Team Status: Active Member Role Status Dates Dr. Mohinder Quick MD Primary Care Provider Active Dr. Waylon Novak MD Attending Provider Active Dr. Laurie Duran MD Referring Provider Active Team Status: Active Member Role Status Dates Dr. Mohinder Quick MD Primary Care Provider Active Dr. Scott Wen , DO Emergency Provider Active Dr. Shannan Acosta MD Admit Provider, Other Provider Active Dr. Bakari Solis MD Other Provider Active Dr. Mauri Dumas , DO Other Provider Active Rissa Galicia Other Provider Active Dr. Morales Storey MD Attending Provider, Other Provid er Active Dr. Mino Ramos , DO Other Provider Active Dr. Griffin Ruiz MD Other Provider Active Dr. Sean Owens MD Other Provider Active Toma Morley PEANUT BLANCHER, PEANUT BLANCHER-C Other Provider Active Dr. Vincent Cabrera , DO Other Provider Active Dr. Laurie Duran MD Referring Provider, Other Provid er Active Dr. Anshul Arboleda MD Other Provider Active Dr. Florencio Morgan MD Other Provider Active Team Status: Active Member Role Status Dates Dr. Mohinder Quick MD Primary Care Provider Active Dr. Scott Wen , DO Emergency Provider Active Dr. Shannan Acosta MD Admit Provider, Other Provider Active Dr. Bakari Solis MD Other Provider Active Dr. Mauri Dumas , DO Other Provider Active Rissa Galicia Other Provider Active Dr. Morales Storey MD Other Provider Active Dr. Mino Ramos , DO Other Provider Active Dr. Griffin Ruiz MD Other Provider Active Dr. Sean Owens MD Other Provider Active Toma Morley PEANUT BLANCHER, PEANUT BLANCHER-C Other Provider Active Dr. Vincent Cabrera , DO Attending Provider, Other Pro vider Active Dr. Laurie Duran MD Other Provider Active Dr. Anshul Arboleda MD Other Provider Active Dr. Florencio Morgan MD Other Provider Active Team Status: Active Member Role Status Dates Dr. Mohinder Quick MD Primary Care Provider Active Dr. Scott Wen , DO Emergency Provider Active Dr. Shannan Acosta MD Admit Provider, Other Provider Active Dr. Bakari Solis MD Other Provider Active Dr. Mauri Dumas , DO Other Provider Active Rissa Grayson Other Provider Active Dr. Morales Storey MD Attending Provider, Other Provid er Active Dr. Mino Ramos , DO Other Provider Active Dr. Griffin Ruiz MD Other Provider Active Dr. Sean Owens MD Other Provider Active Toma Morley PEANUT BLANCHER, PEANUT BLANCHER-C Other Provider Active Dr. Vincent Cabrera , DO Other Provider Active Dr. Laurie Duran MD Other Provider Active Dr. Anshul Arboleda MD Other Provider Active Dr. Florencio Morgan MD Other Provider Active Team Status: Active Member Role Status Dates Dr. Mohinder Quick MD Primary Care Provider Active Dr. Scott Wen , DO Emergency Provider Active Dr. Shannan Acosta MD Admit Provider, Other Provider Active Dr. Vincent Cabrera , DO Attending Provider, Other Pro vider Active Dr. Laurie Duran MD Other Provider Active Dr. Florencio Morgan MD Other Provider Active Rissa Galicia Other Provider Active Dr. Morales Storey MD Other Provider Active Dr. Mino Ramos , DO Other Provider Active Dr. Griffin Ruiz MD Other Provider Active Dr. Sean Owens MD Other Provider Active Toma Morley PEANUT BLANCHER, PEANUT BLANCHER-C Other Provider Active Dr. Anshul Arboleda MD Other Provider Active Dr. Mauri Dumas , DO Other Provider Active Dr. Bakari Solis MD Other Provider Active Team Status: Active Member Role Status Dates Dr. Mohinder Quick MD Primary Care Provider Active Dr. Ed Ann MD Attending Provider Activ e Team Status: Inactive Member Role Status Dates Dr. Mohinder Quick MD Primary Care Provider, Referri ng Provider Active Toma Morley PEANUT BLANCHER, PEANUT BLANCHER-C Attending Provider Active Team Status: Inactive Member Role Status Dates Dr. Mohinder Quick MD Primary Care Provider, Referri ng Provider Active Stephanie Charles PEANUT BLANCHER, PEANUT BLANCHER-C Attending Provider Active Team Status: Inactive Member Role Status Dates Dr. Mohinder Quick MD Primary Care Provider Active Dr. Bakari Solis MD Attending Provider, Referring Pr ovider Active Team Status: Inactive Member Role Status Dates Dr. Sebastien Stahl MD Family Provider Active Dr. Geovanni An MD Other Provider Active Dr. Moses Jordan DO Attending Provider, Referring Prov ider Active Dr. Mohinder Quick MD Primary Care Provider Active Dr. Rafael Torres MD Other Provider Active Team Status: Inactive Member Role Status Dates Dr. Mohinder Quick MD Primary Care Provider Active Dr. Scott Wen , Emergency Provider Active Dr. Shannan Acosta MD Admit Provider, Other Provider Active Dr. Vincent Cabrera , Attending Provider Active Dr. Laurie Duran MD Other Provider Active Dr. Florencio Morgan MD Other Provider Active Rissa Galicia Other Provider Active Dr. Morales Storey MD Other Provider Active Dr. Mino Ramos , Other Provider Active Dr. Griffin Ruiz MD Other Provider Active Dr. Sean Owens MD Other Provider Active Toma Morley PEANUT BLANCHER, PEANUT BLANCHER-C Other Provider Active Dr. Anshul Arboleda MD Other Provider Active Dr. Mauri Dumas DO Other Provider Active Dr. Bakari Solis MD Other Provider Active Team Status: Inactive Member Role Status Dates Dr. Mohinder Quick MD Primary Care Pro vider, Attending Provider, Referring Provider Active Team Status: Inactive Member Role Status Dates Dr. Mohinder Quick MD Primary Care Provider Active Dr. Mauri Dumas DO Attending Provider Active Team Status: Inactive Member Role Status Dates Dr. Mohinder Quick MD Primary Care Provider Active Dr. Danita Tatum DO Attending Provider, Emergency Pro vider Active Team Status: Inactive Member Role Status Dates Dr. Mohinder Quick MD Primary Care Provider Active Dr. Wenceslao Reyes MD Admit Provider, Attending Provid er Active Dr. Florencio Morgan MD Other Provider Active Dr. Sarahy Sofia DPM Other Provider Active Dispatcher Refinery Relationship Specialty Start Date End Date Sebastien Stahl MD PCP - General 02/13/09 Doup, Christel, RN [facility] 10/13/18 Dispatcher Refinery Relationship Specialty Start Date End Date Sebastien Stahl MD PCP - General 02/13/09 Christel Becker RN [facility] 10/13/18 Dispatcher Refinery Relationship Specialty Start Date End Date Mohinder Quick MD [address] [place] [address] PCP - General Internal Medicine 11/19/22 Christel Becker RN [facility] 10/13/18 Dispatcher Refinery Relationship Specialty Start Date End Date Mohinder Quick MD [address] [place] [address] PCP - General Internal Medicine 11/19/22 Christel Becker RN [facility] 10/13/18 Larisa Narvaez, MANI [facility] 11/22/22 03/03/23 Goyo Cheng MD [address] [place] [address] Consulting Orthopedics 11/22/22 Mohinder Quick MD [address] [place] [address] Home Care Provider Internal Medicine 11/22/22 Dispatcher Refinery Relationship Specialty Start Date End Date Mohinder Quick MD [address] [place] [address] PCP - General Internal Medicine 11/19/22 Christel Becker RN [facility] 10/13/18 Larisa Narvaez, MANI [facility] 11/22/22 03/03/23 Goyo Cheng MD [address] [place] [address] Consulting Orthopedics 11/22/22 Mohinder Quick MD [address] [place] [address] Home Care Provider Internal Medicine 11/22/22 Dispatcher Refinery Relationship Specialty Start Date End Date Mohinder Quick MD [address] [place] [address] PCP - General Internal Medicine 11/19/22 Christel Becker RN [facility] 10/13/18 Larisa Narvaez, MANI [facility] 11/22/22 03/03/23 Goyo Cheng MD [address] [place] [address] Consulting Orthopedics 11/22/22 Mohinder Quick MD [address] [place] [address] Home Care Provider Internal Medicine 11/22/22 Dispatcher Refinery Relationship Specialty Start Date End Date Mohinder Quick MD [address] [place] [address] PCP - General Internal Medicine 11/19/22 Christel Becker RN [facility] 10/13/18 Larisa Narvaez, MANI [facility] 11/22/22 03/03/23 Goyo Cheng MD [address] [place] [address] Consulting Orthopedics 11/22/22 Mohinder Quick MD [address] [place] [address] Home Care Provider Internal Medicine 11/22/22 Dispatcher Refinery Relationship Specialty Start Date End Date Mohinder Quick MD [address] [place] [address] PCP - General Internal Medicine 11/19/22 Christel Becker RN [facility] 10/13/18 Larisa Narvaez, MANI [facility] 11/22/22 03/03/23 Goyo Cheng MD [address] [place] [address] Consulting Orthopedics 11/22/22 Mohinder Quick MD [address] [place] [address] Home Care Provider Internal Medicine 11/22/22 Team Status: Active Member Role Status Dates Dr. Mohinder Quick MD Primary Care Provider Active Madiha Burgess Attending Provider Active Team Status: Inactive Member Role Status Dates Dr. Mohinder Quick MD Primary Care Provider Active Dr. Rafael Torres MD Attending Provider Active Dispatcher Refinery Relationship Specialty Start Date End Date Mohinder Quick MD [address] [place] [address] PCP - General Internal Medicine 11/19/22 Christel Becker RN [facility] 10/13/18 Larisa Narvaez, MANI [facility] 11/22/22 03/03/23 Goyo Cheng MD [address] [place] [address] Consulting Orthopedics 11/22/22 Mohinder Quick MD [address] [place] [address] Home Care Provider Internal Medicine 11/22/22 Dispatcher Refinery Relationship Specialty Start Date End Date Mohinder Quick MD [address] [place] [address] PCP - General Internal Medicine 11/19/22 Christel Becker RN [facility] 10/13/18 Larisa Narvaez, MANI [facility] 11/22/22 03/03/23 Goyo Cheng MD [address] [place] [address] Consulting Orthopedics 11/22/22 Mohinder Quick MD [address] [place] [address] Home Care Provider Internal Medicine 11/22/22 Team Status: Active Member Role Status Dates Dr. Mohinder Quick MD Primary Care Provider, Referri ng Provider Active Dr. Jyoti Frost MD Attending Provider, Other Pr ovider Active Team Status: Active Member Role Status Dates Dr. Mohinder Quick MD Primary Care Provider, Referri ng Provider Active Dr. Jyoti Frost MD Attending Provider Active Team Status: Inactive Member Role Status Dates Dr. Mohinder Quick MD Primary Care Provider Active Dr. Jyoti Frost MD Attending Provider, Referrin g Provider Active Team Status: Inactive Member Role Status Dates Dr. Mohinder Quick MD Primary Care Provider, Referri ng Provider Active Dr. Jyoti Frost MD Attending Provider Active Dispatcher Refinery Relationship Specialty Start Date End Date Mohinder Quick MD [address] [place] [address] PCP - General Internal Medicine 11/19/22 Christel Becker RN [facility] 10/13/18 Goyo Cheng MD [address] [place] [address] Consulting Orthopedics 11/22/22 Mohinder Quick MD [address] [place] [address] Home Care Provider Internal Medicine 11/22/22 Dispatcher Refinery Relationship Specialty Start Date End Date Mohinder Quick MD [address] [place] [address] PCP - General Internal Medicine 11/19/22 Christel Becker RN [facility] Nurse [facility] 10/13/18 Goyo Cheng MD [address] [place] [address] Consulting Orthopedics 11/22/22 Mohinder Quick MD [address] [place] [address] Home Care Provider Internal Medicine 11/22/22 Dispatcher Refinery Relationship Specialty Start Date End Date Mohinder Quick MD [address] [place] [address] PCP - General Internal Medicine 11/19/22 Christel Becker RN [facility] Nurse [facility] 10/13/18 Goyo Cheng MD [address] [place] [address] Consulting Orthopedics 11/22/22 Mohinder Quick MD [address] [address] Home Care Provider Internal Medicine 11/22/22 Dispatcher Refinery Relationship Specialty Start Date End Date Mohinder Quick MD [address] [address] PCP - General Internal Medicine 11/19/22 Christel Becker RN [facility] Nurse [facility] 10/13/18 Goyo Cheng MD [address] [place] [address] Consulting Orthopedics 11/22/22 Mohinder Quick MD [address] [place] [address] Home Care Provider Internal Medicine 11/22/22 Dispatcher Refinery Relationship Specialty Start Date End Date Mohinder Quick MD [address] [place] [address] PCP - General Internal Medicine 11/19/22 Christel Becker RN [facility] Nurse [facility] 10/13/18 Goyo Cheng MD [address] [place] [address] Consulting Orthopedics 11/22/22 Mohinder Quick MD [address] [place] [address] Home Care Provider Internal Medicine 11/22/22 Dispatcher Refinery Relationship Specialty Start Date End Date Mohinder Quick MD [address] [place] [address] PCP - General Internal Medicine 11/19/22 Christel Becker RN [facility] Nurse [facility] 10/13/18 Goyo Cheng MD [address] [place] [address] Consulting Orthopedics 11/22/22 Mohinder Quick MD [address] [place] [address] Home Care Provider Internal Medicine 11/22/22 Dispatcher Refinery Relationship Specialty Start Date End Date Mohinder Quick MD [address] [place] [address] PCP - General Internal Medicine 11/19/22 Christel Becker RN [facility] Nurse [facility] 10/13/18 Goyo Cheng MD [address] [place] [address] Consulting Orthopedics 11/22/22 Mohinder Quick MD [address] [place] [address] Home Care Provider Internal Medicine 11/22/22 Dispatcher Refinery Relationship Specialty Start Date End Date Mohinder Quick MD [address] [place] [address] PCP - General Internal Medicine 11/19/22 Christel Becker RN [facility] Nurse On[facility] 10/13/18 Goyo Cheng MD [address] [place] [address] Consulting Orthopedics 11/22/22 Mohinder Quick MD [address] [place] [address] Home Care Provider Internal Medicine 11/22/22 Dispatcher Refinery Relationship Specialty Start Date End Date Mohinder Quick MD [address] [place] [address] PCP - General Internal Medicine 11/19/22 Christel Becker RN [facility] Nurse [facility] 10/13/18 Goyo Cheng MD [address] [place] [address] Consulting Orthopedics 11/22/22 Mohinder Quick MD [address] [place] [address] Home Care Provider Internal Medicine 11/22/22 Dispatcher Refinery Relationship Specialty Start Date End Date Mohinder Quick MD [address] [place] [address] PCP - General Internal Medicine 11/19/22 Christel Becker RN [facility] Nurse [facility] 10/13/18 Goyo Cheng MD [address] [place] [address] Consulting Orthopedics 11/22/22 Mohinder Quick MD [address] [place] [address] Home Care Provider Internal Medicine 11/22/22 Dispatcher Refinery Relationship Specialty Start Date End Date Mohinder Quick MD [address] [place] [address] PCP - General Internal Medicine 11/19/22 Christel Becker RN [facility] Nurse On[facility] 10/13/18 Goyo Cheng MD [address] [place] [address] Consulting Orthopedics 11/22/22 Mohinder Quick MD [address] [place] [address] Home Care Provider Internal Medicine 11/22/22 Dispatcher Refinery Relationship Specialty Start Date End Date Mohinder Quick MD [address] [place] [address] PCP - General Internal Medicine 11/19/22 Christel Becker RN [facility] Nurse On[facility] 10/13/18 Goyo Cheng MD [address] [place] [address] Consulting Orthopedics 11/22/22 Mohinder Quick MD [address] [place] [address] Home Care Provider Internal Medicine 11/22/22 Dispatcher Refinery Relationship Specialty Start Date End Date Mohinder Quick MD [address] [place] [address] PCP - General Internal Medicine 11/19/22 Christel Becker RN [facility] Nurse On[facility] 10/13/18 Goyo Cheng MD [address] [place] [address] Consulting Orthopedics 11/22/22 Mohinder Quick MD [address] [place] [address] Home Care Provider Internal Medicine 11/22/22 Dispatcher Refinery Relationship Specialty Start Date End Date Mohinder Quick MD [address] [place] [address] PCP - General Internal Medicine 11/19/22 Christel Becker RN [facility] Nurse [facility] 10/13/18 Goyo Cheng MD [address] [place] [address] Consulting Orthopedics 11/22/22 Mohinder Quick MD [address] [place] [address] Home Care Provider Internal Medicine 11/22/22 Dispatcher Refinery Relationship Specialty Start Date End Date Mohinder Quick MD [address] [place] [address] PCP - General Internal Medicine 11/19/22 Christel Becker RN [facility] Nurse On[facility] 10/13/18 Goyo Cheng MD [address] [place] [address] Consulting Orthopedics 11/22/22 Mohinder Quick MD [address] [place] [address] Home Care Provider Internal Medicine 11/22/22 Dispatcher Refinery Relationship Specialty Start Date End Date Mohinder Quick MD [address] [place] [address] PCP - General Internal Medicine 11/19/22 Christel Becker RN [facility] 10/13/18 Goyo Cheng MD [address] [place] [address] Consulting Orthopedics 11/22/22 Mohinder Quick MD [address] [place] [address] Home Care Provider Internal Medicine 11/22/22 [employer] Relationship Specialty Start Date End Date Mohinder Quick MD [address] [place] [address] PCP - General Internal Medicine 11/19/22 Christel Becker RN [facility] 10/13/18 Goyo Cheng MD [address] [place] [address] Consulting Orthopedics 11/22/22 Mohinder Quick MD [address] [place] [address] Home Care Provider Internal Medicine 11/22/22 Dispatcher [employer] Relationship Specialty Start Date End Date Mohinder Quick MD [address] [place] [address] PCP - General Internal Medicine 11/19/22 Christel Becker RN [facility] 10/13/18 Goyo Cheng MD [address] [place] [address] Consulting Orthopedics 11/22/22 Mohinder Quick MD [address] [place] [address] Home Care Provider Internal Medicine 11/22/22 Dispatcher [employer] Relationship Specialty Start Date End Date Mohinder Quick MD [address] [place] [address] PCP - General Internal Medicine 11/19/22 Christel Becker RN [facility] 10/13/18 Goyo Cheng MD [address] [place] [address] Consulting Orthopedics 11/22/22 Mohinder Quick MD [address] [place] [address] Home Care Provider Internal Medicine 11/22/22 Dispatcher [employer] Relationship Specialty Start Date End Date Mohinder Quick MD [address] [place] [address] PCP - General Internal Medicine 11/19/22 Christel Becker RN [facility] 10/13/18 Goyo Cheng MD [address] [place] [address] Consulting Orthopedics 11/22/22 Mohinder Quick MD [address] [place] [address] Home Care Provider Internal Medicine 11/22/22 Dispatcher [employer] Relationship Specialty Start Date End Date Mohinder Quick MD [address] [place] [address] PCP - General Internal Medicine 11/19/22 Christel Becker RN [facility] 10/13/18 Goyo Cheng MD [address] [place] [address] Consulting Orthopedics 11/22/22 Mohinder Quick MD [address] [place] [address] Home Care Provider Internal Medicine 11/22/22 Dispatcher [employer] Relationship Specialty Start Date End Date Mohinder Quick MD [address] [place] [address] PCP - General Internal Medicine 11/19/22 Christel Becker RN [facility] 10/13/18 Goyo Cheng MD [address] [place] [address] Consulting Orthopedics 11/22/22 Mohinder Quick MD [address] [place] [address] Home Care Provider Internal Medicine 11/22/22 Team Status: Active Member Role Status Dates Dr. Mohinder Quick MD Primary Care Provider Active Team Status: Inactive Member Role Status Dates Dr. Mohinder Quick MD Primary Care Provider Active Start: August 23, 2024 End: August 23, 2024 Dr. Mohinder Quick MD Attending Provider Active Start: August 23, 2024 End: August 23, 2024 Team Status: Inactive Member Role Status Dates Dr. Mohinder Quick MD Primary Care Provider Active Start: August 31, 2024 End: August 31, 2024 Dr. Mohinder Quick MD Attending Provider Active Start: August 31, 2024 End: August 31, 2024 Dr. Mohinder Quick MD Referring Provider Active Start: August 31, 2024 End: August 31, 2024 Team Status: Inactive Member Role Status Dates Dr. Mohinder Quick MD Primary Care Provider Active Start: November 09, 2024 End: November 09, 2024 Dr. Mohinder Quick MD Referring Provider Active Start: November 09, 2024 End: November 09, 2024 Dr. Rafael Torres MD Attending Provider Active S tart: November 09, 2024 End: November 09, 2024 Team Status: Inactive Member Role Status Dates Dr. Mohinder Quick MD Primary Care Provider Active Start: November 24, 2024 End: November 24, 2024 Dr. Mohinder Quick MD Referring Provider Active Start: November 24, 2024 End: November 24, 2024 Dr. Ira Quiñonez DC Attending Provider Active S tart: November 24, 2024 End: November 24, 2024 Team Status: Inactive Member Role Status Dates Dr. Mohinder Quick MD Primary Care Provider Active Start: December 08, 2024 End: December 08, 2024 Dr. Rafael Torres MD Attending Provider Active S tart: December 08, 2024 End: December 08, 2024 Dr. Rafael Torres MD Referring Provider Active S tart: December 08, 2024 End: December 08, 2024 Team Status: Active Member Role Status Dates Dr. Mohinder Quick MD Primary Care Provider Active Start: December 13, 2024 Dr. Rafael Torres MD Attending Provider Active S tart: December 13, 2024 Dr. Rafael Torres MD Referring Provider Active S tart: December 13, 2024 Dr. Rafael Torres MD Other Provider Active Start : December 13, 2024 Team Status: Inactive Member Role Status Dates Dr. Mohinder Quick MD Primary Care Provider Active Start: December 13, 2024 End: December 13, 2024 Dr. Mohinder Quick MD Attending Provider Active Start: December 13, 2024 End: December 13, 2024 Dispatcher [employer] Relationship Specialty Start Date End Date Mohinder Quick MD [address] [place] [address] PCP - General Internal Medicine 11/19/22 Christel Becker RN [facility] 10/13/18 Goyo Cheng MD [address] [place] [address] Consulting Orthopedics 11/22/22 Mohinder Quick MD [address] [place] [address] Home Care Provider Internal Medicine 11/22/22 Dispatcher [employer] Relationship Specialty Start Date End Date Mohinder Quick MD [address] [place] [address] PCP - General Internal Medicine 11/19/22 Christel Becker RN [facility] 10/13/18 Goyo Cheng MD [address] [place] [address] Consulting Orthopedics 11/22/22 Mohinder Quick MD [address] [place] [address] Home Care Provider Internal Medicine 11/22/22 Dispatcher [employer] Relationship Specialty Start Date End Date Mohinder Quick MD [address] [place] [address] PCP - General Internal Medicine 11/19/22 Christel Becker RN [facility] 10/13/18 Goyo Cheng MD [address] [place] [address] Consulting Orthopedics 11/22/22 Mohinder Quick MD [address] [place] [address] Home Care Provider Internal Medicine 11/22/22 Dispatcher [employer] Relationship Specialty Start Date End Date Mohinder Quick MD [address] [place] [address] PCP - General Internal Medicine 11/19/22 Christel Becker, RN [facility] 10/13/18 Goyo Cheng MD [address] [place] [address] Consulting Orthopedics 11/22/22 Mohinder Quick MD [address] [place] [address] Home Care Provider Internal Medicine 11/22/22 Dispatcher [employer] Relationship Specialty Start Date End Date Mohinder Quick MD [address] [place] [address] PCP - General Internal Medicine 11/19/22 Christel Becker RN [facility] 10/13/18 Goyo Cheng MD [address] [place] [address] Consulting Orthopedics 11/22/22 Mohinder Quick MD [address] [place] [address] Home Care Provider Internal Medicine 11/22/22 Team Status: Active Member Role/Relationship Status Dates Dr. Mohinder Quick MD Primary Care Provider Active Team Status: Inactive Member Role/Relationship Status Dates Dr. Mohinder Quick MD Primary Care Provider Active Start: January 19, 2025 End: January 19, 2025 Dr. Mohinder Quick MD Referring Provider Active Start: January 19, 2025 End: January 19, 2025 Toma Morley PEANUT BLANCHER, PEANUT BLANCHER-C Attending Provider Active Start: January 19, 2025 End: January 19, 2025 Team Status: Inactive Member Role/Relationship Status Dates Dr. Mohinder Quick MD Primary Care Provider Active Start: May 16, 2025 End: May 16, 2025 Dr. Mohinder Quick MD Attending Provider Active Start: May 16, 2025 End: May 16, 2025 Team Status: Inactive Member Role/Relationship Status Dates Dr. Mohinder Quick MD Primary Care Provider Active Start: May 16, 2025 End: May 16, 2025 Dr. Mohinder Quick MD Attending Provider Active Start: May 16, 2025 End: May 16, 2025 Team Status: Inactive Member Role/Relationship Status Dates Dr. Mohinder Quick MD Primary Care Provider Active Start: May 17, 2025 End: May 17, 2025 Dr. Mohinder Quick MD Attending Provider Active Start: May 17, 2025 End: May 17, 2025 Dr. Mohinder Quick MD Referring Provider Active Start: May 17, 2025 End: May 17, 2025 (unrecognized sect ion and content) No Status Records FoundNo Status Records FoundNo Status Records Found INFORMATION SOURCE (unrecogn ized section and content) DATE CREATED AUTHOR 02/04/2025 [facility] DATE CREATED AUTHOR AUTHOR'S ORGANIZ ATION 07/24/2025 [facility] DATE CREATED AUTHOR AUTHOR'S ORGANIZ ATION 07/29/2025 [facility] FOR RECORDS PERTAINING TO PATIENTS WHO ARE OR HAVE BEEN ENROLLED IN A CHEMICAL DEPENDENCY/SUBSTANCEABUSE PROGRAM, SOME INFORMATION MAY BE OMITTED. This clinical summary was aggregated from multiple sources. Caution should be exercised in using it in the provision of clinical care. This summary normalizes information from multiple sources, and as a consequence, information in this document may materially change the coding, format and clinical context of patient data. In addition, data may be omitted in some cases. CLINICAL DECISIONS SHOULD BE BASED ON THE PRIMARY CLINICAL RECORDS. [employer] [facility]. provides no warranty or guarantee of the accuracy or completeness of information in this document.
== END | disposition home or self-care (01) ==
LOC: MTLAB 10:38
PROVIDERS: PCP Internal Medicine; Visit Provider Internal Medicine
DX: E11.65 Type 2 diabetes mellitus with hyperglycemia (principal)
CPT/HCPCS: 36415; 83036